=== PATIENT | male | born 1945 | race Caucasian/White ===

== ENCOUNTER → 2017-09-03 | Emergency (ER) | payer OTHER ==
[~2017-09-03] MED LIST: ACETAMINOPHEN 500 MG TAB PO PRN; APIXABAN 2.5 MG TABLET PO SCH; ASPIRIN EC 81 MG TAB PO ONE; ASPIRIN EC 81 MG TAB PO SCH; CLOPIDOGREL 75 MG TABLET PO SCH; DILTIAZEM HCL 120 MG SR CAP PO SCH; ENOXAPARIN 30 MG/0.3 ML SQ SCH; METOPROLOL TAR 50 MG TAB ONE; METOPROLOL TARTRATE 5 MG/5 ML INJ IV ONE; NA CHLORIDE 0.9% 1,000 ML IV SCH; NA CHLORIDE 0.9% 1,000 ML ONE; NA CHLORIDE 0.9% 500 ML ONE; NEBIVOLOL HCL 5 MG TAB PO SCH; ONDANSETRON 4 MG/2 ML VIAL IV PRN; PNEUMOCOCCAL VACCINE 0.5 ML IMVAC ONE; ROSUVASTATIN 10 MG TAB PO SCH; TAMSULOSIN 0.4 MG SR CAP PO SCH
--- OUTSIDE RECORDS SUMMARY | 2017-09-03 00:15 | XMS REPORT | Clinical Summary ---
:1945 Author Organization [facility] Address [address] [place] [address] Care Team Providers Name Role Phone Javi Looney MD Primary Care Provider Allergies Active Allergy Reactions Severity Noted Date Comments Clonidine High 01/28/2017 Makes him extremely depressed Coconut Swelling 01/29/2017 Lip and tongue swelling Pseudoephedrine Other (See Comments) 01/28/2017 Irregular heart beat Current Medications Prescription Sig. Disp. Refills Start Date End Date Status rosuvastatin TK 1 T PO QD 2 04/27/2016 Active (CRESTOR) 10 MG tablet clopidogrel Take 75 mg by Active (PLAVIX) 75 mg mouth daily. tablet BYSTOLIC 10 mg TK 1 T PO QD 0 03/07/2017 Active tablet CARTIA XT 240 mg TK 1 C PO QD 0 03/16/2017 Active 24 hr capsule lisinopril Take 1 tablet (40 30 tablet 11 04/24/2017 Active (PRINIVIL,ZESTRIL) mg total) by 9 40 mg tablet mouth daily. clonIDINE 3 04/12/2016 Discontinued (CATAPRES) 0.1 MG 8 tablet MATZIM LA 360 mg TK 1 T PO D FOR 5 04/25/2016 Discontinued 24 hr tablet BP AND 8 TACHYCARDIA lisinopril 1/2 tablet daily 1 03/14/2016 Discontinued (PRINIVIL,ZESTRIL) 8 20 mg tablet aspirin 325 MG Take 325 mg by Discontinued tablet mouth daily. 8 amoxicillin-pot TK 1 T PO BID 0 05/24/2016 Discontinued clavulanate 8 (AUGMENTIN) 875-125 mg per tablet aspirin (ECOTRIN) Take 81 mg by Discontinued 81 MG enteric mouth 2 (two) 8 coated tablet times a day. 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 06/06/2016 Cerebrovascular accident (CVA) 06/06/2016 SVT (supraventricular tachycardia) 06/06/2016 CLL (chronic lymphocytic leukemia) 06/06/2016 Encounters Date Type Specialty Care Team Description 05/22/2017 Hospital Encounter Neurology Aman Tyson MD Convulsions, unspecified convulsion type 05/08/2017 Orders Only Rob Valente Convulsions, unspecified convulsion type (Primary Dx) 04/25/2017 Orders Only Emergency Medicine Rob Valente Convulsions, unspecified convulsion type (Primary Dx) 04/24/2017 Office Visit Neurology Aman Tyson MD Cerebral infarction, unspecified mechanism (Primary Dx) after 09/02/2016 Family History Medical History Relation Name Comments Cancer Father Hypertension Father Arthritis Mother Relation Name Status Comments Father Mother Social History Tobacco Use Types Packs/Day Years Used Date Current Every Day Smoker Cigarettes 0.5 Smokeless Tobacco: Never Used Alcohol Use Drinks/Week oz/Week Comments Yes rare Sex Assigned at Date Recorded Not on file Last Filed Vital Signs Vital Sign Reading Time Taken Blood Pressure 178/82 04/24/2017 3:16 PM CDT Pulse 68 04/24/2017 3:16 PM CDT Temperature - - Respiratory Rate - - Oxygen Saturation - - Inhaled Oxygen Concentration - - Weight 87.5 kg (192 lb 12.8 oz) 04/24/2017 3:16 PM CDT Height 177.8 cm (5' 10") 04/24/2017 3:16 PM CDT Body Mass Index 27.66 04/24/2017 3:16 PM CDT Plan of Treatment Date Type Specialty Care Team Description 09/29/2017 Clinical Support Neurology Health Maintenance Due Date Last Done Comments COLON CANCER SCREENING 1995 SHINGRIX VACCINE (#1) 1995 ZOSTER VACCINE 2005 PNEUMOCOCCAL POLYSACCHARIDE VACCINE AGE 65 AND OVER 2010 PNEUMOCOCCAL-13 2010 INFLUENZA VACCINE 09/06/2017 Procedures Procedure Name Priority Date/Time Associated Comments Diagnosis EEG AWAKE/DROWSY LESS Routine 05/30/2017 7:03 Convulsions, Results for this THAN 41 MIN AM CDT unspecified procedure are in convulsion type the results section. ESTIMATED GFR Routine 05/15/2017 2:28 Results for this PM CDT procedure are in the results section. SEDIMENTATION RATE Routine 05/15/2017 2:28 Cerebral Results for this PM CDT infarction, procedure are in unspecified the results mechanism section. VITAMIN B12 LEVEL Routine 05/15/2017 2:28 Cerebral Results for this PM CDT infarction, procedure are in unspecified the results mechanism section. COMPREHENSIVE Routine 05/15/2017 2:28 Cerebral Results for this METABOLIC PANEL PM CDT infarction, procedure are in unspecified the results mechanism section. CRP HIGH SENSITIVITY Routine 05/15/2017 2:28 Cerebral Results for this PM CDT infarction, procedure are in unspecified the results mechanism section. FOLATE LEVEL Routine 05/15/2017 2:28 Cerebral Results for this PM CDT infarction, procedure are in unspecified the results mechanism section. HEMOGLOBIN A1C Routine 05/15/2017 2:28 Cerebral Results for this PM CDT infarction, procedure are in unspecified the results mechanism section. LIPID PANEL Routine 05/15/2017 2:28 Cerebral Results for this PM CDT infarction, procedure are in unspecified the results mechanism section. after 09/02/2016 Results Outpatient EEG (05/30/2017 7:03 AM) Narrative Performed At EEG AWAKE/DROWSY LESS THAN 41 MIN Date of Service: 05/22/2017 Awake Recording: The occipital dominant rhythm is 9 Hz. 18-22 Hz activity is present in all regions. 2-3 Hz activity was present in the right frontal temporal region. Sleep Recording:No sleep was recorded. Hyperventilation: Not performed. Photic Stimulation: No abnormality elicited. Impression There is focal slow activity in the right temporal region, a finding suggestive of a region of underlying dysfunction. The background activity is otherwise within the range of normal variation. No epileptiform activity was recorded. ICD-10 Code: R56.9 Estimated GFR (05/15/2017 2:28 PM) GFR Non Af Amer 50 (A) mL/min/1.73 m2 [facility] DEPARTMENT OF PATHOLOGY AND [facility] GFR Af Amer 60 mL/min/1.73 m2 [facility] DEPARTMENT OF Comment: PATHOLOGY AND [facility] Chronic kidney disease: <60 mL/min/1.73m2 MEDICINE Kidney failure: <15 mL/min/1.73m2 The estimated GFR is calculated from the IDMS-traceable Modification of Diet in Renal Disease Equation. The accuracy of the calculation is poor when the creatinine is normal. Calculated values >90 mL/min/1.73m2 are not reported. This equation has not been validated in children (<18 years), women, the elderly (>70 years), or ethnic groups other than Caucasians and Americans. Specimen Plasma specimen Performing Organization Address City/State/Zipcode Phone Number [facility] DEPARTMENT OF PATHOLOGY [address] [place] [address] AND itembase [facility] Sedimentation rate (05/15/2017 2:28 PM) Sedimentation rate 4 0 - 10 mm/hr [facility] DEPARTMENT OF PATHOLOGY AND [facility] Specimen Blood Performing Organization Address City/[facility]/Zipcode Phone Number [facility] DEPARTMENT OF PATHOLOGY [address] [facility] [place] [address] AND [facility] CRP high sensitivity (05/15/2017 2:28 PM) CRP, high sensitivity 0.95 mg/L [facility] DEPARTMENT OF Comment: PATHOLOGY AND GENOMIC Please note this test is different from the C-Reactive Protein MEDICINE (CRP) assay. CRP is a nonspecific marker of inflammation and its levels rise in the presence of conditions such as infection and inflammatory disorders. Persistent low levels of CRP can be measured with a high-sensitivity assay (hsCRP) andare associated with increased risks for atherosclerotic diseases. High-Sensitivity CRP (hsCRP) results are used to assign risk for stroke, acute myocardial infarction and peripheral vascular disease as follows: Low risk: < 1.00 mg/L Average risk: 1.00 - 3.00 mg/L High risk: > 3.00 - 10.00 mg/L Indeterminate: > 10.00 mg/L * *May be indicative of another source of inflammation or infection Specimen Plasma specimen Performing Organization Address City/[facility]/Zipcode Phone Number [facility] DEPARTMENT OF PATHOLOGY AND [address] [place] [id number] [facility] Hemoglobin A1c (05/15/2017 2:28 PM) Hemoglobin A1C 6.8 (H) 4.0 - 6.0 % [facility] DEPARTMENT OF PATHOLOGY Comment: AND GENOMIC MEDICINE Less than 6% - Goal of therapy for Type II Diabetes Less than 7%-Goal of therapy for Type I Diabetes Less than 8%-Acceptable control for Type I or Type II Diabetes Greater than 8%-Unacceptable control; action indicated. (ADA94) Specimen Blood Performing Organization Address City/State/Zipcode Phone Number [facility] DEPARTMENT OF PATHOLOGY [address] [place] [address] AND [facility] Folate level (05/15/2017 2:28 PM) Folate 13.2 4.8 - 24.2 ng/mL [facility] DEPARTMENT OF PATHOLOGY AND GENOMIC MEDICINE Specimen Serum Performing Organization Address City/[facility]/Zipcode Phone Number [facility] DEPARTMENT OF PATHOLOGY AND [address] [place], [place] [phone] [facility] Vitamin B12 level (05/15/2017 2:28 PM) Vitamin B12 552 211 - 946 pg/mL [facility] DEPARTMENT OF PATHOLOGY Comment: AND [facility] Significant overlap exists between normal and deficiency states. However, most patients with deficiencies will have Serum B12 <200 pg/mL. Specimen Serum Performing Organization Address [facility] Phone Number [facility] DEPARTMENT OF PATHOLOGY AND [address] [phone] [facility] Lipid panel (05/15/2017 2:28 PM) Cholesterol 153 0 - 199 mg/dL [facility] DEPARTMENT OF PATHOLOGY AND GENOMIC MEDICINE Triglycerides 334 (H) 0 - 149 mg/dL [facility] DEPARTMENT OF PATHOLOGY AND GENOMIC MEDICINE HDL cholesterol 22 (L) 40 - 99,999 [facility] DEPARTMENT OF mg/dL PATHOLOGY AND GENOMIC MEDICINE LDL cholesterol 85 0 - 99 mg/dL [facility] DEPARTMENT OF PATHOLOGY AND GENOMIC MEDICINE Lipid panel See below [facility] DEPARTMENT OF interpretation Comment: PATHOLOGY AND Total Cholesterol (mg/dL) GENOMIC MEDICINE <200 Desirable [id number] >=240High Triglycerides (mg/dL) <150 Normal [id number]-[id number] 200-499High >=500Very high HDL Cholesterol (mg/dL) <40Low (male) <50Low (female) LDL Cholesterol (mg/dL) <100 Optimal 100-129Near or above optimal [phone] 160-189High >=190Very high Risk Catergories that modify LDL goals. Risk CatergoriesLDL goal (mg/dL) CHD and CHD risk equivalent<100 (10-year risk >20%) Multiple (2+) risk factors <130 (10-year risk=<20%) 0-1 risk factors <160 (<10-year risk) Defining levels of lipids in metabolic syndrome Triglycerides>=150 mg/dL HDL Cholesterol Men<40 mg/dL Women<50 mg/dL Non-HDL cholesterol is a second target for therapy in persons with high triglycerides (>=200 mg/dL) Specimen Plasma specimen Performing Organization Address City/State/Zipcode Phone Number [facility] DEPARTMENT OF PATHOLOGY [address] [place] [address] AND itembase [facility] Comprehensive metabolic panel (05/15/2017 2:28 PM) Sodium 144 135 - 148 mEq/L [facility] DEPARTMENT OF PATHOLOGY AND GENOMIC MEDICINE Potassium 3.8 3.5 - 5.0 mEq/L [facility] DEPARTMENT OF PATHOLOGY AND GENOMIC MEDICINE Chloride 102 98 - 112 mEq/L [facility] DEPARTMENT OF PATHOLOGY AND GENOMIC MEDICINE CO2 28 24 - 31 mEq/L [facility] DEPARTMENT OF PATHOLOGY AND GENOMIC MEDICINE Anion gap 14 7 - 15 mEq/L [facility] DEPARTMENT OF Comment: PATHOLOGY AND GENOMIC Starting from May , anion gap calculation MEDICINE no longer incorporates potassium. Please note the change. BUN 26 (H) 8 - 23 mg/dL [facility] DEPARTMENT OF PATHOLOGY AND GENOMIC MEDICINE Creatinine 1.4 (H) 0.7 - 1.2 mg/dL [facility] DEPARTMENT OF PATHOLOGY AND GENOMIC MEDICINE Glucose 79 65 - 99 mg/dL [facility] DEPARTMENT OF PATHOLOGY AND GENOMIC MEDICINE Calcium 9.7 8.8 - 10.2 mg/dL [facility] DEPARTMENT OF PATHOLOGY AND GENOMIC MEDICINE Protein 7.0 6.3 - 8.3 g/dL [facility] DEPARTMENT OF PATHOLOGY AND GENOMIC MEDICINE Albumin 4.5 3.5 - 5.0 g/dL [facility] DEPARTMENT OF PATHOLOGY AND GENOMIC MEDICINE A/G ratio 1.8 0.7 - 3.8 [facility] DEPARTMENT OF PATHOLOGY AND GENOMIC MEDICINE Alkaline phosphatase 94 40 - 129 U/L [facility] DEPARTMENT OF PATHOLOGY AND GENOMIC MEDICINE AST 17 10 - 50 U/L [facility] DEPARTMENT OF PATHOLOGY AND GENOMIC MEDICINE ALT 12 5 - 50 U/L [facility] DEPARTMENT OF PATHOLOGY AND GENOMIC MEDICINE Total bilirubin 0.3 0.2 - 1.2 mg/dL [facility] DEPARTMENT OF PATHOLOGY AND GENOMIC MEDICINE Specimen Plasma specimen Performing Organization Address City/State/Zipcode Phone Number [facility] DEPARTMENT OF PATHOLOGY [address] [place] [address] AND itembase MEDICINE after 09/02/2016 Insurance Payer Benefit Plan / Group Subscriber ID Type Phone Address [employer] A[employer] PPO OPEN CHOICE xxxxxxxxx PPO MEDICARE MEDICARE PART A AND B xxxxxxxxxx Medicare [place], [place] III y [phone] [id number]
--- OUTSIDE RECORDS SUMMARY | 2017-09-03 00:16 | XMS REPORT | Clinical Summary ---
:1945 Author Organization [facility] Address [address] [place] [address] Phone Care Team Providers Name Role Phone Unavailable Primary Care Provider Unavailable Allergies Active Allergy Reactions Severity Noted Date Comments Clonidine High 01/28/2017 Makes him extremely depressed Coconut Swelling 01/29/2017 Lip and tongue swelling Pseudoephedrine Other (See Comments) 01/28/2017 Irregular heart beat Current Medications Prescription Sig. Disp. Refills Start Date End Date Status nebivolol (BYSTOLIC) Take 10 mg by Active 10 MG tablet mouth daily. dilTIAZem (CARDIZEM Take 240 mg by Active CD) 240 MG 24 hr mouth daily. capsule rosuvastatin Take 10 mg by Active (CRESTOR) 10 MG mouth daily At tablet bedtime . clopidogrel (PLAVIX) Take 75 mg by Active 75 mg tablet mouth daily. aspirin 81 MG EC Take 81 mg by Active tablet mouth daily. VALSARTAN ORAL Take by mouth Active daily. tamsulosin (FLOMAX) Take 0.4 mg by Discontinued 0.4 mg Cp24 24 hr mouth daily At 8 capsule bedtime . lisinopril Take 40 mg by Discontinued (PRINIVIL,ZESTRIL) mouth 2 (two) 8 40 MG tablet times daily with breakfast and dinner. phenazopyridine Take 1 tablet 30 tablet 0 08/25/2017 (PYRIDIUM) 200 MG (200 mg total) 8 tablet by mouth 3 (three) times daily as needed for Pain for up to 3 days. nitrofurantoin, Take 1 capsule 10 capsule 0 08/25/2017 Discontinued macrocrystal-monohyd (100 mg total) 8 rate, (MACROBID) 100 by mouth 2 MG capsule (two) times daily for 5 days. ciprofloxacin HCl Take 1 tablet 14 tablet 0 08/25/2017 (CIPRO) 500 MG (500 mg total) 8 tablet by mouth 2 (two) times daily for 7 days. Active Problems Problem Noted Date Bladder cancer (HCC) 08/25/2017 CVA (cerebral vascular accident) ([facility]) 01/28/2017 Paroxysmal atrial fibrillation (HCC) 01/28/2017 CLL (chronic lymphocytic leukemia) ([facility]) 01/28/2017 Essential hypertension 01/28/2017 History of lacunar cerebrovascular accident (CVA) 01/28/2017 Encounters Date Type Specialty Care Team Description 08/25/2017 Hospital Encounter Brown Garcia Malignant Priscilla MD urinary bladder, unspecified site (HCC);Pre-op testing;Bacteremia 08/25/2017 Procedure Pass 08/25/2017 Surgery Brown Gracia CYSTOSCOPY,BLUE LIGHT MD Louis [facility]YSVIEW 08/24/2017 Anesthesia Event Chinedu Figueredo MD 08/23/2017 Hospital Encounter Cardiology Brown Garcia MD 08/23/2017 Hospital Encounter Brown Garcia MD 08/23/2017 Hospital Encounter Pre-Admission Brown Garcia Testing MD Louis 08/23/2017 Hospital Encounter Pre-Admission Brown Gracia Malignant neoplasm of Testing MD Louis urinary bladder, unspecified site (HCC);Pre-op testing;Bacteremia ;Abnormal coagulation profile 08/23/2017 Orders Only General Internal Medicine 08/23/2017 Outside Orders Lab Amee Lugo 08/21/2017 Orders Only Urology Brown Garcia MD 08/07/2017 Orders Only Urology Brown Garcia Malignant Priscilla MD urinary bladder, unspecified site ([facility]) (Primary Dx);Pre-op testing;Bacteremia ;Abnormal coagulation profile 01/28/2017 - [facility] (chronic 01/29/2017 Medicine Linda Montague lymphocytic leukemia) MD Chris ([facility]);Cerebrovascular Onel Pringle, accident (CVA), unspecified mechanism Dipak Bauer ([facility]);Radha Roland MD hypertension;History of lacunar cerebrovascular accident (CVA);Paroxysmal atrial fibrillation (HCC) after 09/02/2016 Social History Tobacco Use Types Packs/Day Years Used Date Unknown If Ever Smoked Smokeless Tobacco: Never Used Comments: quit dec 2017 Alcohol Use Drinks/Week oz/Week Comments Yes occasional Sex Assigned at Date Recorded Not on file Last Filed Vital Signs Vital Sign Reading Time Taken Blood Pressure 162/83 08/25/2017 1:10 PM CDT Pulse 54 08/25/2017 1:10 PM CDT Temperature 36.8 C (98.2 F) 08/25/2017 1:10 PM CDT Respiratory Rate 16 08/25/2017 1:10 PM CDT Oxygen Saturation 93% 08/25/2017 1:10 PM CDT Inhaled Oxygen Concentration - - Weight 88.2 kg (194 lb 6.4 oz) 08/25/2017 8:52 AM CDT Height 177.8 cm (5' 10") 08/25/2017 8:52 AM CDT Body Mass Index 27.89 08/25/2017 8:52 AM CDT Plan of Treatment Not on file Procedures Procedure Name Priority Date/Time Associated Diagnosis Comments CYSTOSCOPY,TURBT 08/25/2017 10:00 AM CDT Malignant neoplasm of urinary bladder, unspecified site (HCC) Special Needs ([facility]) CYSTOSCOPY,BLUE LIGHT [facility] 08/25/2017 10:00 AM CDT Malignant neoplasm of urinary bladder, unspecified site (HCC) Special Needs ([facility]VIEW) after 09/02/2016 Results Tissue Exam (08/25/2017 10:30 AM) Component Value Ref Range Case Report Surgical Pathology Report Case: [id number] Authorizing Provider:Brown Garcia MDCollected: 08/25/2017 1030 Ordering Location: [facility] Received: 08/25/2017 1434 SERVICES Pathologist: Nicolas Diaz MD Specimens: A) - Bladder Tumor, enbloc resection of right lateral wall tumor B) - Bladder Tumor, TUR papillary tumor inside left bladder neck C) - Bladder Tumor, right lateral wall bladder tumor D) - Bladder Tumor, papillary tumor dome DIAGNOSIS A. URINARY BLADDER, RIGHT LATERAL WALL, TURBT: - PAPILLARY UROTHELIAL CARCINOMA, LOW-GRADE (WHO GRADE 1), NONINVASIVE - MUSCULARIS PROPRIA IS NOT PRESENT B. URINARY BLADDER, LEFT NECK, TURBT: - PAPILLARY UROTHELIAL CARCINOMA, LOW-GRADE (WHO GRADE 2), SUPERFICIALLY INVASIVE INTO LAMINA PROPRIA - MUSCULARIS PROPRIA IS NOT INVOLVED BY CARCINOMA - NEGATIVE FOR LYMPH-VASCULAR INVASION C. URINARY BLADDER, RIGHT LATERAL WALL, TURBT: - PAPILLARY UROTHELIAL CARCINOMA, LOW-GRADE (WHO GRADE 2), NONINVASIVE - MUSCULARIS PROPRIA IS NOT INVOLVED BY CARCINOMA D. URINARY BLADDER, DOME, TURBT: - PAPILLARY UROTHELIAL CARCINOMA, LOW-GRADE (WHO GRADE 2), NONINVASIVE - MUSCULARIS PROPRIA IS NOT PRESENT Signing Pathologist Direct Phone Line: [phone] COMMENT The focus of invasion on specimen B. Is into the lamina propria of one papillary stalk and consists of on 3-4 tiny cell clusters. CPT Code(s) A. 89552 B. 83475 C. 60992 D. 42837 CLINICAL HISTORY Malignant neoplasm of urinary bladder SPECIMEN SOURCE A. Bladder tumor en bloc resection of right lateral wall tumor; B. TUR papillary tumor inside left bladder neck; C. Right lateral wall bladder tumor; D. Papillary tumor dome GROSS DESCRIPTION The specimen is received in four containers of formalin all labeled with the patient's information. Part A labeled "en bloc resection of right lateral wall tumor" consists of two fragments of lyles-pink soft tissue measuring 0.4 and 0.5 cm, submitted A1. Part B labeled "TUR papillary tumor inside left bladder neck" consists of three fragments of lyles-pink soft tissue ranging from 0.4 to 0.6 cm, submitted B1. Part C labeled "right lateral wall bladder tumor" consists of multiple fragments of lyles-pink soft tissue ranging from 0.1 to 1 cm, submitted C1. Part D labeled "papillary tumor dome of bladder" consists of multiple fragments of lyles-pink soft tissue, ranging from 0.1 to 0.4 cm. Submitted D1. CG/ pl MICROSCOPIC DESCRIPTION Performed Specimen Performing Laboratory Tissue - Bladder Tumor [address] [address] TRANSFUSION SERVICE REPORT - SCAN (08/24/2017 5:54 PM)XR chest 2 views (2017 3:46 PM) Specimen Performing Laboratory GE RIS Narrative FINAL REPORT Chest, two views HISTORY: Bladder cancer COMPARISON: None. DISCUSSION: Enlargement of the cardiomediastinal silhouette with tortuosity and ectasia of the thoracic aorta. Lungs are grossly clear without focal consolidation. No large pleural effusion or pneumothorax. Mild degenerative changes in the thoracic spine. Healed left-sided rib fractures. IMPRESSION: Enlargement of the cardiomediastinal silhouette. Otherwise, no acute cardiopulmonary abnormality. Signed: Brett Valente MD Report Verified Date/Time:08/23/2017 16:22:14 Reading Location: [address] Reading Room Procedure Note Interface, External Ris In - 08/23/2017 4:24 PM CDT FINAL REPORT Chest, two views HISTORY: Bladder cancer COMPARISON: None. DISCUSSION: Enlargement of the cardiomediastinal silhouette with tortuosity and ectasia of the thoracic aorta. Lungs are grossly clear without focal consolidation. No large pleural effusion or pneumothorax. Mild degenerative changes in the thoracic spine. Healed left-sided rib fractures. IMPRESSION: Enlargement of the cardiomediastinal silhouette. Otherwise, no acute cardiopulmonary abnormality. Signed: Brett Valente MD Report Verified Date/Time: 08/23/2017 16:22:14 Reading Location: [address] Reading Room Electrocardiogram, 12-lead (08/23/2017 3:05 PM) Specimen Performing Laboratory GE MUSE Narrative Ventricular Rate 57 BPM Atrial Rate 57 BPM P-R Interval 212 ms QRS Duration 98 ms Q-T Interval 532 ms QTC Calculation(Bazett) 517 ms P [place] 24 degrees R [place] -19 degrees T [place] 74 degrees Sinus bradycardia with 1st degree A-V block Prolonged QT Abnormal ECG No previous ECGs available Confirmed by Radha Liu Alireaz ([id number]) on 08/23/2017 10:07:57 PM Procedure Note Interface, External Ris In - 08/23/2017 10:08 PM CDT Ventricular Rate 57 BPM Atrial Rate 57 BPM P-R Interval 212 ms QRS Duration 98 ms Q-T Interval 532 ms QTC Calculation(Bazett) 517 ms P [place] 24 degrees R [place] -19 degrees T [place] 74 degrees Sinus bradycardia with 1st degree A-V block Prolonged QT Abnormal ECG No previous ECGs available Confirmed by Radha Liu Alireaz ([id number]) on 08/23/2017 10:07:57 PM Manual Differential (08/23/2017 3:02 PM) Component Value Ref Range % Neutros 23 % % Lymphs 66 % % Monos 2 % % Eos 1 % % Baso 1 % % Atypical Lymphs 6 (H) 0 - 0 % # Neutros 16.58 (H) 1.78 - 5.38 K/ul # Lymphs 47.59 (H) 1.32 - 3.57 K/ul # Monos 1.44 (H) 0.30 - 0.82 K/uL # Eos 0.72 (H) 0.04 - 0.54 K/uL # Baso 0.72 (H) 0.01 - 0.08 K/uL # Atypical Lymphs 4.33 (H) 0.00 - 0.00 K/uL Total Counted 100 Platelet Morphology Normal Smudge Cells Present Polychromasia 1+ few Hypochromia 1+ few Anisocytosis 2+ moderate Microcytes 2+ moderate Poikilocytes 1+ few Artifact Present Platelet Conc Adequate Specimen Performing Laboratory Blood [address] [address] Narrative Received comment: User comments: Slide comments: Type and screen, automated (08/23/2017 3:02 PM) Component Value Ref Range ABO/RH AUTOMATED (BEAKER) A POSITIVE Ab Scrn NEGATIVE Specimen Performing Laboratory Blood [address] [address] CBC with platelet count + automated diff (08/23/2017 3:02 PM)Only the most recent of2 resultswithin the time period is included. Component Value Ref Range WBC 72.1 (HH) 3.5 - 10.5 K/L RBC 4.97 4.63 - 6.08 M/L Hemoglobin 13.1 (L) 13.7 - 17.5 GM/DL Hematocrit 42.1 40.1 - 51.0 % MCV 84.7 79.0 - 92.2 fL MCH 26.4 25.7 - 32.2 pg MCHC 31.1 (L) 32.3 - 36.5 GM/DL RDW 14.5 (H) 11.6 - 14.4 % Platelets 247 150 - 450 K/CU MM MPV 10.6 9.4 - 12.4 fL nRBC 0 0 - 0 /100 WBC Specimen Performing Laboratory Blood [address] [address] Urinalysis w/ Microscopic (08/23/2017 3:02 PM) Component Value Ref Range Color, UA Light Yellow Clarity, UA Clear Specific [place], UA 1.012 1.001 - 1.035 pH, UA 7.0 5.0 - 8.0 Protein, UA 50 mg/dL (A) Negative Glucose, UA Negative Negative Ketones, UA Negative Negative Bilirubin, UA Negative Negative Blood, UA Negative Negative Nitrite, UA Negative Negative Leukocytes, UA Negative Negative Urobilinogen, UA 0.2 0.2 - 1.0 mg/dL RBC, UA 1 /HPF WBC, UA <1 /HPF Mucus Rare Specimen Source Specimen Performing Laboratory Urine [address] [address] aPTT (08/23/2017 3:02 PM) Component Value Ref Range PTT 31.6 22.5 - 36.0 seconds Specimen Performing Laboratory Blood [address] [address] Prothrombin time/INR (08/23/2017 3:02 PM) Component Value Ref Range Protime 14.8 (H) 11.7 - 14.7 seconds INR 1.2 <=5.9 Specimen Performing Laboratory Blood [address] [address] Narrative RECOMMENDED COUMADIN/WARFARIN INR THERAPY RANGES STANDARD DOSE: 2.0 - 3.0 Includes: PROPHYLAXIS for venous thrombosis, systemic embolization; TREATMENT for venous thrombosis and/or pulmonary embolus. HIGH RISK: Target INR is 2.5-3.5 for patients with mechanical heart valves. CBC with platelet count + automated diff (08/23/2017 3:02 PM)Only the most recent of2 resultswithin the time period is included. Specimen Performing Laboratory Blood Narrative The following orders were created for panel order CBC with platelet count + automated diff. Procedure Abnormality Status --------- ------ CBC with platelet count ...[[id number]]AbnormalFinal result Please view results for these tests on the individual orders. Urine culture (08/23/2017 3:02 PM) Component Value Ref Range Result 50-59,000 col/mL skin eunice Specimen Performing Laboratory Urine - Urine, Clean Catch [address] [address] Basic Metabolic Panel (08/23/2017 3:02 PM)Only the most recent of2 resultswithin the time period is included. Component Value Ref Range Sodium 140 136 - 145 meq/L Potassium 3.9 3.5 - 5.1 meq/L Chloride 104 98 - 107 meq/L CO2 25 22 - 29 meq/L BUN 29 (H) 7 - 21 mg/dL Creatinine 1.59 (H) 0.57 - 1.25 mg/dL Glucose 80 70 - 105 mg/dL Calcium 9.8 8.4 - 10.2 mg/dL EGFR 43Comment: ESTIMATED GFR IS NOT ACCURATE mL/min/1.73 sq m CREATININE CLEARANCE IN PREDICTING GLOMERULAR FILTRATION RATE. ESTIMATED GFR IS NOT APPLICABLE FOR DIALYSIS PATIENTS. Specimen Performing Laboratory [address] [address] RHYTHM STRIP - SCAN (02/02/2017 8:10 AM)Manual Differential (01/29/2017 6:21 AM) Component Value Ref Range Total Counted Platelet Morphology Normal RBC Morphology Normal Atypical Lymphs Present Smudge Cells Present Specimen Performing Laboratory [address] [address] TSH/Free T4 If Indicated (01/29/2017 6:21 AM) Component Value Ref Range TSH 1.37 0.35 - 4.94 uIU/mL Specimen Performing Laboratory [address] [address] Troponin I (01/29/2017 6:21 AM) Component Value Ref Range Troponin I 0.02 0.00 - 0.03 ng/mL Specimen Performing Laboratory [address] [address] Narrative Troponin I (TnI) levels must be interpreted in the context of the presenting symptoms and the clinical findings. Elevated TnI levels indicate myocardial damage, but are not specific for ischemic heart disease. Elevated TnI levels are seen in patients with other cardiac conditions (including myocarditis and congestive heart failure), and slight TnI elevations occur in patients with other conditions, including sepsis, renal failure, acidosis, acute neurological disease, and persistent tachyarrhythmia. RPR (01/29/2017 6:21 AM) Component Value Ref Range RPR Nonreactive Nonreactive Specimen Performing Laboratory Blood [facility] [address] [address] Hemoglobin A1c (01/29/2017 6:21 AM) Component Value Ref Range Hemoglobin A1C 6.9 (H) 4.3 - 6.1 % Specimen Performing Laboratory Blood [address] [address] Vitamin B12 (01/29/2017 6:21 AM) Component Value Ref Range Vitamin B12 346 213 - 816 pg/mL Specimen Performing Laboratory Blood [address] [address] Creatine Kinase (CK), Total and MB (01/29/2017 6:21 AM) Component Value Ref Range Total CK 72 29 - 200 U/L CK-MB 0.5 0.0 - 6.6 ng/mL MB Relative Index 0.7 % Specimen Performing Laboratory Blood [address] [address] Narrative CK-MB Reference Range: <6.7Normal 6.7-10.0Borderline >10.0 Abnormal Lipid panel (01/29/2017 6:21 AM) Component Value Ref Range Triglycerides 175 mg/dL Cholesterol 104 mg/dL HDL 21 mg/dL LDL Calculated 48 mg/dL Specimen Performing Laboratory Blood [address] [address] Narrative Triglyceride Reference Range: Low Risk <150 [id number] High Risk 200-499 Very High Risk>=500 Cholesterol Reference Range: Low Risk <200 [id number] High Risk>240 HDL Cholesterol Reference Range: Low Risk >=60 High Risk <40 LDL Cholesterol Reference Range: Optimal<100 Near [id number] Obkdtcldbz698-202 Chqx233-378 Very High >=190 MR brain without IV contrast (01/29/2017 4:01 AM) Specimen Performing Laboratory [employer] Narrative FINAL REPORT MR, BRAIN, WITHOUT CONTRAST, MR, MRA, NECK, WITHOUT IV CONTRAST, MR, MRA, BRAIN, WITHOUT CONTRAST INDICATION: Stroke Ischemic Stroke Evaluation TECHNIQUE: Multiplanar, multisequence MR images of the brain.3-D time of flight MRA of the cranial and cervical circulation. 2-D time of flight MRA of the neck. 3D MIP angiographic post-processing was performed. Stenosis evaluation utilized NASCET criteria. COMPARISON: Noncontrast brain CT of the same date FINDINGS: MRI BRAIN: Moderate to severe global volume loss with severe patchy periventricular and subcortical areas of T2 and FLAIR signal abnormality consistent with chronic microvascular ischemic disease. Midline structures and posterior fossa within normal limits. Small acute infarct in the right green radiata of the frontal lobe. Another small acute infarct in the left temporoparietal lobe white matter. No hemorrhagic transformation. Arachnoid cyst in the right middle cranial fossa. No acute hydrocephalus. Preserved flow voids in the major intracranial vascular structures. Loops are symmetric. Mild paranasal sinus mucosal disease. MRA NECK: On the right, there is no significant atherosclerotic plaque at the CCA bifurcation. No flow-limiting stenosis or dissection. On the left, there is no significant atherosclerotic plaque at the CCA bifurcation. No flow-limiting stenosis or dissection. Co-dominant vertebral artery system. No flow-limiting stenosis of vertebral arteries. MRA HEAD: Mild atherosclerotic disease in the carotid siphons, right greater than left. No flow-limiting stenosis, dissection, or aneurysm of the anterior circulation. Mild to moderate atherosclerotic disease in the proximal basilar artery. No flow-limiting stenosis, dissection, or aneurysm of the posterior circulation. IMPRESSION: Small infarcts in the right frontal lobe and left parietal lobe white matter. Consider cardiac echo to rule out a central source. No flow-limiting stenosis in the intra or extracranial cerebral arterial vasculature. Signed: Zelalem Chapa MD Report Verified Date/Time:01/29/2017 04:30:36 Reading Location: [address] Consult Reading Room Procedure Note Interface, External Ris In - 01/29/2017 4:32 AM BROKE HANDLER FINAL REPORT MR, BRAIN, WITHOUT CONTRAST, MR, MRA, NECK, WITHOUT IV CONTRAST, MR, MRA, BRAIN, WITHOUT CONTRAST INDICATION: Stroke Ischemic Stroke Evaluation TECHNIQUE: Multiplanar, multisequence MR images of the brain. 3-D time of flight MRA of the cranial and cervical circulation. 2-D time of flight MRA of the neck. 3D MIP angiographic post-processing was performed. Stenosis evaluation utilized NASCET criteria. COMPARISON: Noncontrast brain CT of the same date FINDINGS: MRI BRAIN: Moderate to severe global volume loss with severe patchy periventricular and subcortical areas of T2 and FLAIR signal abnormality consistent with chronic microvascular ischemic disease. Midline structures and posterior fossa within normal limits. Small acute infarct in the right green radiata of the frontal lobe. Another small acute infarct in the left temporoparietal lobe white matter. No hemorrhagic transformation. Arachnoid cyst in the right middle cranial fossa. No acute hydrocephalus. Preserved flow voids in the major intracranial vascular structures. Loops are symmetric. Mild paranasal sinus mucosal disease. MRA NECK: On the right, there is no significant atherosclerotic plaque at the CCA bifurcation. No flow-limiting stenosis or dissection. On the left, there is no significant atherosclerotic plaque at the CCA bifurcation. No flow-limiting stenosis or dissection. Co-dominant vertebral artery system. No flow-limiting stenosis of vertebral arteries. MRA HEAD: Mild atherosclerotic disease in the carotid siphons, right greater than left. No flow-limiting stenosis, dissection, or aneurysm of the anterior circulation. Mild to moderate atherosclerotic disease in the proximal basilar artery. No flow-limiting stenosis, dissection, or aneurysm of the posterior circulation. IMPRESSION: Small infarcts in the right frontal lobe and left parietal lobe white matter. Consider cardiac echo to rule out a central source. No flow-limiting stenosis in the intra or extracranial cerebral arterial vasculature. Signed: Zelalem Chapa MD Report Verified Date/Time: 01/29/2017 04:30:36 Reading Location: [address] Ortho Consult Reading Room neck without IV contrast (01/29/2017 4:01 AM) Specimen Performing Laboratory [employer] Narrative FINAL REPORT MR, BRAIN, WITHOUT CONTRAST, MR, MRA, NECK, WITHOUT IV CONTRAST, MR, MRA, BRAIN, WITHOUT CONTRAST INDICATION: Stroke Ischemic Stroke Evaluation TECHNIQUE: Multiplanar, multisequence MR images of the brain.3-D time of flight MRA of the cranial and cervical circulation. 2-D time of flight MRA of the neck. 3D MIP angiographic post-processing was performed. Stenosis evaluation utilized NASCET criteria. COMPARISON: Noncontrast brain CT of the same date FINDINGS: MRI BRAIN: Moderate to severe global volume loss with severe patchy periventricular and subcortical areas of T2 and FLAIR signal abnormality consistent with chronic microvascular ischemic disease. Midline structures and posterior fossa within normal limits. Small acute infarct in the right green radiata of the frontal lobe. Another small acute infarct in the left temporoparietal lobe white matter. No hemorrhagic transformation. Arachnoid cyst in the right middle cranial fossa. No acute hydrocephalus. Preserved flow voids in the major intracranial vascular structures. Loops are symmetric. Mild paranasal sinus mucosal disease. MRA NECK: On the right, there is no significant atherosclerotic plaque at the CCA bifurcation. No flow-limiting stenosis or dissection. On the left, there is no significant atherosclerotic plaque at the CCA bifurcation. No flow-limiting stenosis or dissection. Co-dominant vertebral artery system. No flow-limiting stenosis of vertebral arteries. MRA HEAD: Mild atherosclerotic disease in the carotid siphons, right greater than left. No flow-limiting stenosis, dissection, or aneurysm of the anterior circulation. Mild to moderate atherosclerotic disease in the proximal basilar artery. No flow-limiting stenosis, dissection, or aneurysm of the posterior circulation. IMPRESSION: Small infarcts in the right frontal lobe and left parietal lobe white matter. Consider cardiac echo to rule out a central source. No flow-limiting stenosis in the intra or extracranial cerebral arterial vasculature. Signed: Zelalem Chapa MD Report Verified Date/Time:01/29/2017 04:30:36 Reading Location: [address] Consult Reading Room Procedure Note Interface, External Ris In - 01/29/2017 4:32 AM BROKE HANDLER FINAL REPORT MR, BRAIN, WITHOUT CONTRAST, MR, MRA, NECK, WITHOUT IV CONTRAST, MR, MRA, BRAIN, WITHOUT CONTRAST INDICATION: Stroke Ischemic Stroke Evaluation TECHNIQUE: Multiplanar, multisequence MR images of the brain. 3-D time of flight MRA of the cranial and cervical circulation. 2-D time of flight MRA of the neck. 3D MIP angiographic post-processing was performed. Stenosis evaluation utilized NASCET criteria. COMPARISON: Noncontrast brain CT of the same date FINDINGS: MRI BRAIN: Moderate to severe global volume loss with severe patchy periventricular and subcortical areas of T2 and FLAIR signal abnormality consistent with chronic microvascular ischemic disease. Midline structures and posterior fossa within normal limits. Small acute infarct in the right green radiata of the frontal lobe. Another small acute infarct in the left temporoparietal lobe white matter. No hemorrhagic transformation. Arachnoid cyst in the right middle cranial fossa. No acute hydrocephalus. Preserved flow voids in the major intracranial vascular structures. Loops are symmetric. Mild paranasal sinus mucosal disease. MRA NECK: On the right, there is no significant atherosclerotic plaque at the CCA bifurcation. No flow-limiting stenosis or dissection. On the left, there is no significant atherosclerotic plaque at the CCA bifurcation. No flow-limiting stenosis or dissection. Co-dominant vertebral artery system. No flow-limiting stenosis of vertebral arteries. MRA HEAD: Mild atherosclerotic disease in the carotid siphons, right greater than left. No flow-limiting stenosis, dissection, or aneurysm of the anterior circulation. Mild to moderate atherosclerotic disease in the proximal basilar artery. No flow-limiting stenosis, dissection, or aneurysm of the posterior circulation. IMPRESSION: Small infarcts in the right frontal lobe and left parietal lobe white matter. Consider cardiac echo to rule out a central source. No flow-limiting stenosis in the intra or extracranial cerebral arterial vasculature. Signed: Zelalem Chapa MD Report Verified Date/Time: 01/29/2017 04:30:36 Reading Location: [address] Consult Reading Room head without IV contrast (01/29/2017 4:01 AM) Specimen [facility] Narrative FINAL REPORT MR, BRAIN, WITHOUT CONTRAST, MR, MRA, NECK, WITHOUT IV CONTRAST, MR, MRA, BRAIN, WITHOUT CONTRAST INDICATION: Stroke Ischemic Stroke Evaluation TECHNIQUE: Multiplanar, multisequence MR images of the brain.3-D time of flight MRA of the cranial and cervical circulation. 2-D time of flight MRA of the neck. 3D MIP angiographic post-processing was performed. Stenosis evaluation utilized NASCET criteria. COMPARISON: Noncontrast brain CT of the same date FINDINGS: MRI BRAIN: Moderate to severe global volume loss with severe patchy periventricular and subcortical areas of T2 and FLAIR signal abnormality consistent with chronic microvascular ischemic disease. Midline structures and posterior fossa within normal limits. Small acute infarct in the right green radiata of the frontal lobe. Another small acute infarct in the left temporoparietal lobe white matter. No hemorrhagic transformation. Arachnoid cyst in the right middle cranial fossa. No acute hydrocephalus. Preserved flow voids in the major intracranial vascular structures. Loops are symmetric. Mild paranasal sinus mucosal disease. MRA NECK: On the right, there is no significant atherosclerotic plaque at the CCA bifurcation. No flow-limiting stenosis or dissection. On the left, there is no significant atherosclerotic plaque at the CCA bifurcation. No flow-limiting stenosis or dissection. Co-dominant vertebral artery system. No flow-limiting stenosis of vertebral arteries. MRA HEAD: Mild atherosclerotic disease in the carotid siphons, right greater than left. No flow-limiting stenosis, dissection, or aneurysm of the anterior circulation. Mild to moderate atherosclerotic disease in the proximal basilar artery. No flow-limiting stenosis, dissection, or aneurysm of the posterior circulation. IMPRESSION: Small infarcts in the right frontal lobe and left parietal lobe white matter. Consider cardiac echo to rule out a central source. No flow-limiting stenosis in the intra or extracranial cerebral arterial vasculature. Signed: Zelalem Chapa MD Report Verified Date/Time:01/29/2017 04:30:36 Reading Location: [facility] [id number] Ortho Consult Reading Room Procedure Note Interface, External Ris In - 01/29/2017 4:32 AM [facility] FINAL REPORT MR, BRAIN, WITHOUT CONTRAST, MR, MRA, NECK, WITHOUT IV CONTRAST, MR, MRA, BRAIN, WITHOUT CONTRAST INDICATION: Stroke Ischemic Stroke Evaluation TECHNIQUE: Multiplanar, multisequence MR images of the brain. 3-D time of flight MRA of the cranial and cervical circulation. 2-D time of flight MRA of the neck. 3D MIP angiographic post-processing was performed. Stenosis evaluation utilized NASCET criteria. COMPARISON: Noncontrast brain CT of the same date FINDINGS: MRI BRAIN: Moderate to severe global volume loss with severe patchy periventricular and subcortical areas of T2 and FLAIR signal abnormality consistent with chronic microvascular ischemic disease. Midline structures and posterior fossa within normal limits. Small acute infarct in the right green radiata of the frontal lobe. Another small acute infarct in the left temporoparietal lobe white matter. No hemorrhagic transformation. Arachnoid cyst in the right middle cranial fossa. No acute hydrocephalus. Preserved flow voids in the major intracranial vascular structures. Loops are symmetric. Mild paranasal sinus mucosal disease. MRA NECK: On the right, there is no significant atherosclerotic plaque at the CCA bifurcation. No flow-limiting stenosis or dissection. On the left, there is no significant atherosclerotic plaque at the CCA bifurcation. No flow-limiting stenosis or dissection. Co-dominant vertebral artery system. No flow-limiting stenosis of vertebral arteries. MRA HEAD: Mild atherosclerotic disease in the carotid siphons, right greater than left. No flow-limiting stenosis, dissection, or aneurysm of the anterior circulation. Mild to moderate atherosclerotic disease in the proximal basilar artery. No flow-limiting stenosis, dissection, or aneurysm of the posterior circulation. IMPRESSION: Small infarcts in the right frontal lobe and left parietal lobe white matter. Consider cardiac echo to rule out a central source. No flow-limiting stenosis in the intra or extracranial cerebral arterial vasculature. Signed: Zelalem Chapa MD Report Verified Date/Time: 01/29/2017 04:30:36 Reading Location: [facility] B1 [id number] [facility] Consult Reading Room after 09/02/2016
--- OUTSIDE RECORDS SUMMARY | 2017-09-03 00:18 | XMS REPORT | Continuity of Care Document ---
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, 7 [place] LUMBAR REGION" Stroke Resolved Problem 06/22/2017 [facility] [place] [facility], PRECIOUS [place], PRECIOUS [place],[facility], [facility], [place] Hematoma Resolved Problem 06/22/2017 [facility], PRECIOUS [place], PRECIOUS [place],[facility], PRECI[facility] [place] 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 sennosides, SNF TAB, Dosing 8.6 MG Oral Weight 86.364, Tablet kg, BID, Start date: 05/29/17 17:00:00 CDT, Duration: 30 day, Stop date: 06/28/17 9:00:00 CDTNotes: (Same as Senokot-S) Equiv. to Rachelle-Colace. Docusate Sodium 1 tab, PO, BID, Active 05/29/ [place] 50 MG / X 14 day, # [address] [facility] sennosides, SNF tab, 0 8.6 MG Oral Refill(s), Tablet Pharmacy: [facility] [id number] ciprofloxacin 500 500 mg=1 tab, Active [place] mg oral tablet PO, Q12H, X 7 2017, # 14 tab, 0 Refill(s), Pharmacy: [facility] [id number] Cipro 500 mg, 2 tab, Inactive [place] Route: PO, Drug 2017 [place] form: TAB, [id number], Dosing Weight 86.364, kg, Start date: 05/29/17 9:00:00 CDT, Duration: 5 day, Stop date: 06/02/17 21:00:00 CDT, ABX Indication: Other (specify in Comments)Notes: May interfere w/enteral feedings - Take 1 hr before or 2 hrs after antacids, dairy pdt & minerals. On empty stomach. Normal Saline for 3,000 mL, Route: Inactive [place] Irrigation INTRAVESICULAR, 2017 Drug Form: SOLN, Dosing Weight 89.545, kg, Continuous, Start date: 05/28/17 21:30:00 CDT, Duration: 30 day, Stop date: 06/27/17 21:29:00 CDTNotes: For irrigation only. Sodium Chloride 3,000 mL, 6000 No Longer [place] ml/hr, Route: Active 2017 IRRIG, Drug Form: SOLN, Dosing Weight 86.364, kg, Continuous, PRN See Nurse's Notes, Start date: 05/28/17 21:22:00 CDT, Duration: 30 day, Stop date: 06/27/17 21:21:00 CDTNotes: For irrigation only. Diltiazem 240 mg, 2 cap, No Longer [place] Hydrochloride ER Route: PO, Drug Active 2017 [place] form: ERCAP, Daily, Dosing Weight 86.364, kg, Start date: 05/28/17 16:00:00 CDT, Duration: 30 day, Stop date: 06/27/17 9:00:00 CDTNotes: (Same as: Cardizem CD) Do Not Crush Before meals. 24 HR Diltiazem 240 mg=1 cap, Active [place] Hydrochloride 240 PO, Daily, 0 2017 MG Extended Refill(s) Release Capsule [Cartia] clopidogrel 75 MG 75 mg=1 tab, PO, No Longer [place] Oral Tablet Daily, 0 2017 [place] [Plavix] Refill(s) Aspirin 81 mg, 0 No Longer [place] Refill(s) Active 2017 [place] nebivolol 10 MG 10 mg=1 tab, PO, Active [place] Oral Tablet Daily, 0 2017 [place] [Bystolic] Refill(s) Bystolic 10 mg, 2 tab, No Longer [place] Route: PO, Drug Active 2017 [place] form: TAB, Daily, Dosing Weight 86.364, kg, Start date: 05/28/17 9:00:00 CDT, Duration: 30 day, Stop date: 06/26/17 9:00:00 CDTNotes: (same as: Bystolic) Crestor 10 mg, 1 tab, No Longer [place] Route: PO, Drug Active 2017 [place] form: TAB, Bedtime, Dosing Weight 89.545, kg, Start date: 05/27/17 21:00:00 CDT, Duration: 30 day, Stop date: 06/25/17 21:00:00 CDTNotes: (Same As: Crestor) Docusate 100 mg, 1 cap, No Longer [place] Route: PO, Drug Active 2017 [place] form: CAP, BID, Dosing Weight 89.545, kg, Start date: 05/27/17 9:00:00 CDT, Duration: 30 day, Stop date: 06/25/17 17:00:00 CDTNotes: (Same as: Colace) (Do Not Crush) Lisinopril 40 mg, 2 tab, No Longer [place] Route: PO, Drug Active 2017 [place] form: TAB, Daily, Dosing Weight 89.545, kg, Start date: 05/27/17 9:00:00 CDT, Duration: 30 day, Stop date: 06/25/17 9:00:00 CDTNotes: (Same as: Prinivil, Zestril) Clonidine 0.1 mg, 1 tab, Inactive [place] Hydrochloride 0.1 Route: PO, Drug 2018 [place] MG Oral Tablet form: TAB, BID, Dosing Weight 89.545, kg, Start date: 05/27/17 9:00:00 CDT, Duration: 30 day, Stop date: 06/25/17 17:00:00 CDTNotes: (Same As: Catapres) Hydralazine 10 mg, 0.5 mL, No Longer [place] Route: IVP, Drug Active 2017 [place] form: INJ, Q6H, Dosing Weight 86.364, kg, PRN Hypertension, for BP systolic >180, Start date: 05/27/17 4:19:00 CDT, Duration: 30 day, Stop date: 06/26/17 4:18:00 CDTNotes: (Same as: Apresoline) Push over 5 minutes Cataflam 50 mg=1 tab, PO, Inactive [place] TID, PRN pain, # 2017 [place] 30 tab, 0 Refill(s) Acetaminophen 650 mg, 2 tab, No Longer [place] Route: PO, Drug Active 2017 [place] form: TAB, Q4H, Dosing Weight 89.545, kg, PRN Pain 1-3/Temp > 100.4 F, Start date: 05/27/17 2:05:00 CDT, Duration: 30 day, Stop date: 06/26/17 2:04:00 CDTNotes: Do not exceed 4 gm/day. (Same as: Tylenol) Acetaminophen 325 1 tab, Route: No Longer [place] MG / Hydrocodone PO, Drug Form: Active 2017 [place] Bitartrate 5 MG TAB, Dosing Oral Tablet Weight 89.545, kg, Q4H, PRN Pain Score 4-6, Start date: 05/27/17 2:05:00 CDT, Duration: 30 day, Stop date: 06/26/17 2:04:00 CDTNotes: (Same as: [place] 325/5) Do not exceed 4gm/day of acetaminophen. Morphine 2 mg, 1 mL, No Longer [place] Route: IVP, Drug Active 2017 [place] form: INJ, Q4H, Dosing Weight 89.545, kg, PRN Pain Score 7-10, Start date: 05/27/17 2:05:00 CDT, Duration: 30 day, Stop date: 06/26/17 2:04:00 CDTNotes: (Same as:MORPhine Sulfate) Ondansetron 4 mg, 2 mL, No Longer [place] Route: IVP, Drug Active 2017 [place] form: INJ, Q6H, Dosing Weight 89.545, kg, PRN Nausea & Vomiting, Start date: 05/27/17 2:05:00 CDT, Duration: 30 day, Stop date: 06/26/17 2:04:00 CDTNotes: (Same as: Zofran) MEDICATION WASTE Product Size: 4 mg Product Wasted: ___ mg Irrigation w/ 3,000 mL, Route: Inactive [place] Normal Saline INTRAVESICULAR, [address] [facility] Drug Form: SOLN, Dosing Weight 89.545, kg, Continuous, Start date: 05/27/17 2:00:00 CDT, Duration: 30 day, Stop date: 06/26/17 1:59:00 CDTNotes: For irrigation only. Sodium Chloride 3,000 mL, Route: Inactive [place] 0.0769 MEQ/ML Intravesical, [address] [facility] Irrigation Drug Form: SOLN, Solution Dosing Weight 89.545, kg, Continuous, Start date: 05/27/17 2:00:00 CDT, Duration: 30 day, Stop date: 06/26/17 1:59:00 CDTNotes: For irrigation only. Sodium Chloride 250 mL, Rate: To No Longer [place] 0.9% (titrate) prime line and Active 2017 [place] 250 mL flush remaining blood products., Dosing Weight 89.545, kg, Route: IV, Total Volume: 250, Start Date: 05/27/17 1:25:00 CDT, Duration: 30 day, Stop date: 06/26/17 1:24:00 CDT, Replace Every: 24 hr Irrigation w/ 3,000 mL, Route: Inactive [place] Normal Saline Intravesical, [address] [facility] Drug Form: SOLN, Dosing Weight 89.545, kg, ONCE, Start date: 05/27/17 0:58:00 CDT, Stop date: 05/27/17 0:58:00 CDTNotes: For irrigation only. Irrigation w/ 3,000 mL, Route: Inactive [place] Normal Saline INTRAVESICULAR, [address] [facility] Drug Form: SOLN, Dosing Weight 89.545, kg, ONCE, STAT, Start date: 05/26/17 23:45:00 CDT, Stop date: 05/26/17 23:45:00 CDTNotes: For irrigation only. Saline Flush 0.9% 10 mL, Route: No Longer [place] IVP, Drug Form: Active 2018 [place] INJ, Dosing Weight 89.545, kg, PRN, PRN Line Flush, Start date: 05/26/17 23:12:00 CDT, Duration: 30 day, Stop date: 06/25/17 23:11:00 CDTNotes: (Same as: BD Posiflush) Phenazopyridine 100 mg=1 tab, No Longer [place] hydrochloride 100 PO, TID, PRN Active 2018 [place] MG Oral Tablet Dysuria, X 2 [Pyridium] day, # 6 tab, 0 Refill(s) Acetaminophen 300 1 - 2 tab, PO, No Longer [place] MG / Codeine Q4H, PRN Pain, X Active 2017 [place] Phosphate 60 MG 2 day, # 12 tab, Oral Tablet 0 Refill(s) [Tylenol with Codeine #4] Acetaminophen 325 2 tab, Route: Inactive [place] MG / Hydrocodone PO, Drug Form: 2018 [place] Bitartrate 5 MG TAB, Dosing Oral Tablet Weight 89.545, [[place] 5/325] kg, ONCE, STAT, Start date: 05/26/17 20:45:00 CDT, Stop date: 05/26/17 20:45:00 CDT Morphine 4 mg, Route: Inactive [place] IVP, ONCE, 2018 [place] Dosing Weight 89.545, kg, Priority: STAT, Start date: 05/26/17 20:16:00 CDT, Stop date: 05/26/17 20:16:00 CDT Morphine 4 mg, Route: Inactive [place] IVP, ONCE, 2018 [place] Dosing Weight 89.545, kg, Priority: STAT, Start date: 05/26/17 19:36:00 CDT, Stop date: 05/26/17 19:36:00 CDT diltiazem 360 mg, 1 cap, Inactive [place] Route: PO, Drug 2016 Medical form: ERCAP, Center ONCE, Dosing Weight 93.182, kg, Start date: 09/24/16 8:38:00 CDT, Stop date: 09/24/16 8:38:00 CDTNotes: DO NOT CRUSH. Lisinopril 40 mg, 2 tab, No Longer [facility] Route: PO, Drug Active 2016 Medical form: TAB, Center Daily, Dosing Weight 93.182, kg, Start date: 09/23/16 9:00:00 CDT, Duration: 30 day, Stop date: 10/22/16 9:00:00 CDTNotes: (Same as: Prinivil, Zestril) Famotidine 20 MG 20 mg=1 tab, PO, Active [facility] Oral Tablet BID, # 20 tab, 0 2016 Medical Refill(s) [place] magnesium citrate 8.725 ec=302 ml, No Longer [facility] 58.2 MG/ML Oral PO, Daily, X 2 Active 2016 Medical Solution day, # 300 mL, 0 Center Refill(s) Acetaminophen 325 1 tab, PO, Q6H, Active [facility] MG / Hydrocodone PRN for pain, X 2017 Medical Bitartrate 10 MG 14 day, # 90 Center Oral Tablet tab, 0 Refill(s) [[place] 10/325] Methocarbamol 500 500 mg=1 tab, Active [facility] MG Oral Tablet PO, Q8H, PRN 2017 Medical [Robaxin] Spasms, X 10 Center day, # 30 tab, 0 Refill(s) {21 See Active [facility] (Methylprednisolo Instructions, 2017 Medical ne 4 MG Oral PO, Take by [place] Tablet [Medrol]) mouth as } Pack [Medrol directed on Dosepak] label., # 1 Pack, 0 Refill(s) Flomax 0.4 mg, 1 cap, No Longer [facility] Route: PO, Drug Active 2016 Medical form: CAP, Center Daily, Dosing Weight 93.182, kg, Start date: 09/23/16 1:28:00 CDT, Duration: 30 day, Stop date: 10/22/16 9:00:00 CDTNotes: (Same As: Flomax) "Do Not Crush" Cefazolin 2 gm, Route: IV, No Longer [place] Drug form: INJ, Active 2016 Medical [id number], Dosing Center Weight 93.182, kg, Start date: 09/22/16 22:00:00 CDT, Duration: 24 hr, Stop date: 09/23/16 14:00:00 CDT, ABX Indication: Surgical ProphylaxisNotes : (Same As: AncJaneen landa) Cefazolin FOR IV SET ONLY MEDICATION WASTE Product Size: 1000 mg Product Wasted: _0__ mg Saline Flush 0.9% 10 ml, Route: No Longer [place] IVP, Drug Form: Active 2016 Medical INJ, Dosing Center Weight 93.182, kg, Q12H, Start date: 09/22/16 21:00:00 CDT, Duration: 30 day, Stop date: 10/22/16 9:00:00 CDTNotes: (Same as: BD Posiflush) Dexamethasone 4 mg, 1 tab, No Longer [place] Route: PO, Drug Active 2016 Medical form: TAB, Q6H, Center Dosing Weight 93.182, kg, Start date: 09/22/16 18:00:00 CDT, Duration: 30 day, Stop date: 10/22/16 12:00:00 CDTNotes: Give with food. (Same As: Decadron) Famotidine 20 MG 20 mg, 1 tab, No Longer [facility] Oral Tablet Route: PO, Drug Active 2016 Medical form: TAB, BID, Center Dosing Weight 93.182, kg, Start date: 09/22/16 17:00:00 CDT, Duration: 30 day, Stop date: 10/22/16 9:00:00 CDTNotes: (Same as: Pepcid) Docusate 50 mg, 1 cap, No Longer [facility] Route: PO, Drug Active 2016 Medical form: CAP, BID, Center Dosing Weight 93.182, kg, Start date: 09/22/16 17:00:00 CDT, Duration: 30 day, Stop date: 10/22/16 9:00:00 CDT, Pediatric DosingNotes: (Same as: Colace) (Do Not Crush) sennosides, SNF 8.6 mg, 1 tab, No Longer [place] Route: PO, Drug Active 2016 Medical Form: TAB, Center Dosing Weight 93.182, kg, BID, Start date: 09/22/16 17:00:00 CDT, Duration: 30 day, Stop date: 10/22/16 9:00:00 CDTNotes: (Same as: Senokot) Clonidine 0.1 mg, 1 tab, No Longer [place] Hydrochloride 0.1 Route: PO, Drug Active 2016 Medical MG Oral Tablet form: TAB, BID, Center Dosing Weight 93.182, kg, Start date: 09/22/16 17:00:00 CDT, Duration: 30 day, Stop date: 10/22/16 9:00:00 CDTNotes: (Same As: Catapres) Ondansetron 4 mg, 2 mL, Inactive [place] Route: IVP, Drug 2016 Medical form: INJ, ONCE, Center Dosing Weight 93.182, kg, PRN Nausea & Vomiting, Start date: 09/22/16 16:37:00 CDTNotes: (Same as: Zofran) MEDICATION WASTE Product Size: 4 mg Product Wasted: ___ mg Naloxone 0.4 mg, 1 mL, Inactive [place] Route: IVP, Drug 2016 Medical form: INJ, Center Q2MIN, Dosing Weight 93.182, kg, PRN Narcotic Reversal, Start date: 09/22/16 16:37:00 CDT, Duration: 8 doses or times, Stop date: Limited # of timesNotes: Same as Narcan Flumazenil 0.2 mg, 2 mL, Inactive [place] Route: IVP, Drug 2016 Medical form: INJ, PRN, Center Dosing Weight 93.182, kg, PRN Benzodiazepine Reversal, Initial dose, Start date: 09/22/16 16:37:00 CDT, Duration: 30 day, Stop date: 10/22/16 16:36:00 CDTNotes: (Same as: Romazicon) Hydralazine 10 mg, 0.5 mL, Inactive [place] Route: IVP, Drug 2017 Medical form: INJ, Center Q20Min, Dosing Weight 93.182, kg, PRN Elevated BP, Start date: 09/22/16 16:37:00 CDT, Duration: 2 doses or times, Stop date: Limited # of timesNotes: (Same as: Apresoline) Push over 5 minutes Hydromorphone 0.5 mg, 0.25 mL, Inactive [place] Route: IVP, Drug 2016 Medical form: INJ, Center Q5Min, Dosing Weight 93.182, kg, PRN Pain Score 7-10, Start date: 09/22/16 16:37:00 CDT, Duration: 4 doses or times, Stop date: Limited # of timesNotes: Same as: Dilaudid Oxycodone 5 mg, 1 tab, Inactive [place] Route: PO, Drug 2016 Medical form: TAB, Q4H, Center Dosing Weight 93.182, kg, PRN Pain Score 4-6, Start date: 09/22/16 16:37:00 CDT, Duration: 30 day, Stop date: 10/22/16 16:36:00 CDTNotes: (Same as: Roxicodone) Saline Flush 0.9% 10 ml, Route: No Longer [place] IVP, Drug Form: Active 2017 Medical INJ, Dosing Center Weight 93.182, kg, PRN, PRN Line Flush, Start date: 09/22/16 16:11:00 CDT, Duration: 30 day, Stop date: 10/22/16 16:10:00 CDTNotes: (Same as: BD Posiflush) Robaxin 500 mg, 1 tab, No Longer [place] Route: PO, Drug Active 2016 Medical form: TAB, TID, Center Dosing Weight 93.182, kg, PRN Spasm, Start date: 09/22/16 16:11:00 CDT, Duration: 30 day, Stop date: 10/22/16 16:10:00 CDTNotes: (Same as:Robaxin) Hydralazine 20 mg, 1 mL, No Longer [place] Route: IVP, Drug Active 2017 Medical form: INJ, Q4H, Center Dosing Weight 93.182, kg, PRN Hypertension, Start date: 09/22/16 16:11:00 CDT, Duration: 30 day, Stop date: 10/22/16 16:10:00 CDTNotes: (Same as: Apresoline) Push over 5 minutes Labetalol 10 mg, 2 mL, No Longer [place] Route: IVP, Drug Active 2016 Medical form: INJ, Center Q15Min, Dosing Weight 93.182, kg, PRN Hypertension, Start date: 09/22/16 16:11:00 CDT, Duration: 30 day, Stop date: 10/22/16 16:10:00 CDT Ondansetron 4 mg, 2 mL, No Longer [place] Route: IVP, Drug Active 2016 Medical form: INJ, Q6H, Center Dosing Weight 93.182, kg, PRN Nausea & Vomiting, Start date: 09/22/16 16:11:00 CDT, Duration: 30 day, Stop date: 10/22/16 16:10:00 CDT, >/=4 years, Pediatric DosingNotes: (Same as: Kt) MEDICATION WASTE Product Size: 4 mg Product Wasted: ___ mg Acetaminophen 325 1 tab, Route: No Longer [place] MG / Hydrocodone PO, Drug Form: Active 2017 Medical Bitartrate 10 MG TAB, Dosing Center Oral Tablet Weight 93.182, [[place] 10/325] kg, Q4H, PRN Pain Score 1-3, Start date: 09/22/16 16:11:00 CDT, Duration: 30 day, Stop date: 10/22/16 16:10:00 CDTNotes: Do not exceed 4gm/day of acetaminophen. (Same as: [place] 325/10) Dilaudid 0.5 mg, 0.25 mL, No Longer [place] Route: IVP, Drug Active 2016 Medical form: INJ, Q3H, Center Dosing Weight 93.182, kg, PRN Pain Score 7-10, Start date: 09/22/16 16:11:00 CDT, Duration: 30 day, Stop date: 10/22/16 16:10:00 CDTNotes: Same as: Dilaudid Bisacodyl 10 mg, 1 supp, No Longer [place] Route: MA, Drug Active 2016 Medical form: SUPP, Center Daily, Dosing Weight 93.182, kg, PRN Constipation, Start date: 09/22/16 16:11:00 CDT, Duration: 30 day, Stop date: 10/22/16 16:10:00 CDTNotes: (Same As: Dulcolax, [place]-Lax) phenol 1 spray, Route: No Longer [place] TOP, Daily, Drug Active 2016 Medical form: SPRY, PRN Center Sore Throat, Start date: 09/22/16 16:11:00 CDT, Duration: 30 day, Stop date: 10/22/16 16:10:00 CDTNotes: Chloraseptic [place] (Same as: Chloraseptic, Sore Throat [place]) WASTE: F/P - Black; E - [employer]ash [employer] Melatonin 3 MG 3 mg, 1 tab, No Longer [place] Extended Release Route: PO, Drug Active 2016 Medical Tablet Form: TAB, Center Dosing Weight 93.182, kg, Bedtime, PRN as needed for insomnia, Start date: 09/22/16 16:11:00 CDT, Duration: 30 day, Stop date: 10/22/16 16:10:00 CDTNotes: (Same as: Melatonin) Benadryl 25 mg, 1 cap, No Longer [place] Route: PO, Drug Active 2016 Medical form: CAP, TID, Center Dosing Weight 93.182, kg, PRN Itching, Start date: 09/22/16 16:11:00 CDT, Duration: 30 day, Stop date: 10/22/16 16:10:00 CDTNotes: (Same as: Benadryl) ceFAZolin 2 gm, 100 mL, No Longer [facility] Route: IVPB, Active 2016 Medical Drug form: INJ, Center PRE OP, Start date: 09/22/16 3:00:00 CDT, Duration: 1 day, Stop date: 09/23/16 2:59:00 CDT, ABX Indication: Surgical ProphylaxisNotes : Same as: Ancef Allergies, Adverse Reactions, Alerts Substance Category Reaction Severity Reaction Status Date Comments Source type Reported NKDA Assertion Drug Active [facility] allergy [facility] Immunizations Immunization Date Given Site Status Last Updated Comments Source Results Order Name Results Value Reference Date Interpretation Comments Source Range HEMATOLOGY MCHC 32.2 g/dL 32.0 - 05/29 [place] 36.0 [place] HEMATOLOGY MPV 8.6 fL 7.4 - 10.4 05/29 [place] HEMATOLOGY Platelet 222 K/CMM 133 - 450 05/29 [place] HEMATOLOGY RDW 16.8 % 11.5 - 05/29 [place] 14.5 [place] HEMATOLOGY Hgb 11.3 g/dL 14.0 - 05/29 [place] 18.0 [place] HEMATOLOGY RBC 4.00 M/CMM 4.70 - 05/29 [place] 6.10 [place] HEMATOLOGY WBC 51.5 K/CMM 3.7 - 10.4 05/29 Result Comment: [place] Critical Result(s) called to Zoran Ortiz at 05/29/2017 05:34 by FLOR. Read back OK. HEMATOLOGY MCV 87.5 fL 80.0 - 05/29 [place] 94.0 [place] HEMATOLOGY Hct 35.0 % 42.0 - 05/29 [place] 54.0 [place] HEMATOLOGY MCH 28.2 pg 27.0 - 05/29 [place] 31.0 [place] HEMATOLOGY Monocytes # 1.8 K/CMM 0.0 - 0.8 05/29 [place] HEMATOLOGY Basophils # 0.1 K/CMM 0.0 - 0.2 05/29 [place] HEMATOLOGY Eosinophils 0.5 K/CMM 0.0 - 0.5 05/29 [place] # [place] HEMATOLOGY Monocytes 3.5 % 2.0 - 12.0 05/29 [place] HEMATOLOGY Lymphocytes 77.1 % 20.0 - 05/29 [place] 40.0 [place] HEMATOLOGY Segs 18.1 % 45.0 - 05/29 [place] 75.0 [place] HEMATOLOGY Lymphocytes 39.7 K/CMM 1.0 - 5.5 05/29 [place] # [place] HEMATOLOGY Eosinophils 1.0 % 0.0 - 4.0 05/29 [place] HEMATOLOGY Segs-Bands # 9.3 K/CMM 1.5 - 8.1 05/29 [place] HEMATOLOGY Basophils 0.3 % 0.0 - 1.0 05/29 [place] HEMATOLOGY Eosinophils 1.0 % 0.0 - 4.0 04/22 [facility] [place] /2018 [place] HEMATOLOGY Monocytes 2.0 % 2.0 - 12.0 05/28 [place] HEMATOLOGY Tot Cell Ct 100 05/28 [place] HEMATOLOGY Atypical 2.0 % <=0.0 % 05/28 [place] Lymphs [place] HEMATOLOGY Hypochrom 1+ None Seen 05/28 [place] (05/28/17 5:41 AM) HEMATOLOGY Smudge Moderate None Seen 05/28 [place] *ABN* (05/28/17 5:41 AM) HEMATOLOGY Anisocyte 1+ None Seen 05/28 [place] *ABN* (05/28/17 5:41 AM) HEMATOLOGY Microcyte 1+ None Seen 05/28 [place] *ABN* (05/28/17 5:41 AM) HEMATOLOGY Lymphocytes 42.8 K/CMM 1.0 - 5.5 05/28 [place] HEMATOLOGY Segs 13.0 % 45.0 - 05/28 [place] 75.0 [place] HEMATOLOGY Eosinophils 0.5 K/CMM 0.0 - 0.5 05/28 [place] HEMATOLOGY Lymphocytes 82.0 % 20.0 - 05/28 [place] 40.0 [place] HEMATOLOGY Bands 0.0 % 0.0 - 11.0 05/28 [place] HEMATOLOGY Segs-Bands # 6.6 K/CMM 1.5 - 8.1 05/28 [place] HEMATOLOGY Monocytes # 1.0 K/CMM 0.0 - 0.8 05/28 [place] HEMATOLOGY Platelet 225 K/CMM 133 - 450 05/28 [place] HEMATOLOGY RDW 16.4 % 11.5 - 05/28 [place] 14.5 [place] HEMATOLOGY MCH 27.8 pg 27.0 - 05/28 [place] 31.0 [place] HEMATOLOGY MCHC 32.2 g/dL 32.0 - 05/28 [place] 36.0 [place] HEMATOLOGY MCV 86.2 fL 80.0 - 05/28 [place] 94.0 [place] HEMATOLOGY Hct 35.5 % 42.0 - 05/28 [place] 54.0 /2017 [place] HEMATOLOGY MPV 8.2 fL 7.4 - 10.4 05/28 [place] HEMATOLOGY Hgb 11.4 g/dL 14.0 - 05/28 [place] [address] [facility] HEMATOLOGY RBC 4.13 M/CMM 4.70 - 05/28 [place] 6.[address] [facility] HEMATOLOGY WBC 51.0 K/CMM 3.7 - 10.4 05/28 Result Comment: [facility] Critical Result(s) called to HANDY Garcia at 05/28/2017 05:59 by BARREL STRAIGHTENER. Read back OK. Bladder US Bladder US Bladder Ultrasound 05/27 - - [facility] History: Hematuria - looking for blood clots Read by: Fozia Nick MD Dictated Date/time: 05/27/17 18:49 Electronically Signed by: Fozia Nick MD 05/27/17 18:51 FINAL REPORT Technique: Longitudinal and transverse grayscale images of the bladder were obtained using real-time ultrasound. Findings: Bladder demonstrates a normal partially filled configuration. Saba catheter is noted. Irregular echogenic areas noted in the bladder are suggestive of blood clots. It measures 3 x 2.7 cm in size. Leonardo red to prior examination decrease in size of the blood clot is noted. Impression: Incompletely filled bladder with a Saba catheter and suggestion of a blood clot, smaller in size compared to earlier study. CHEM PANEL eGFR 68 05/27 Result Comment: The eGFR is calculated using the CKD-EPI formula. In most young, healthy individuals the eGFR will be >90 mL/ min/1.73m2. The eGFR declines with age. An eGFR of 60-89 may be normal in [facility] mL/min/1. some populations, particularly the elderly, for whom the CKD-EPI formula has not been extensively validated. Use of the eGFR is not recommended in the following populations: [place] 3m2 Individuals with unstable creatinine concentrations, including patients and those with serious co-morbid conditions. Patients with extremes in muscle mass or diet. The data above are obtained from the National Kidney Disease Education Program (NKDEP) which additionally recommends that when the eGFR is used in patients with extremes of body mass index for purposes of drug dosing, the eGFR should be multiplied by the estimated BMI. CHEM PANEL CO2 24 meq/L 24 - 32 05/[address] [facility] CHEM PANEL Chloride Lvl 107 meq/L 95 - 109 05/27 [place] CHEM PANEL Potassium 3.8 meq/L 3.5 - 5.1 05/27 [place] Lvl [place] CHEM PANEL Sodium Lvl 142 meq/L 135 - 145 05/27 [place] CHEM PANEL Creatinine 1.08 mg/dL 0.50 - 05/27 [place] Lvl 1.40 [place] CHEM PANEL BUN 20 mg/dL 7 - 22 05/27 [place] CHEM PANEL Calcium Lvl 8.7 mg/dL 8.5 - 10.5 05/27 [place] CHEM PANEL Glucose Lvl 119 mg/dL 70 - 99 05/27 [place] CHEM PANEL AGAP 14.8 meq/L 10.0 - 05/27 [place] 20.0 [place] HEMATOLOGY Smudge Few 05/27 [place] HEMATOLOGY Monocytes 1.3 % 2.0 - 12.0 05/27 [place] HEMATOLOGY Basophils 0.5 % 0.0 - 1.0 05/27 [place] HEMATOLOGY Eosinophils 0.3 % 0.0 - 4.0 05/27 [place] HEMATOLOGY Monocytes # 0.8 K/CMM 0.0 - 0.8 05/27 [place] HEMATOLOGY Segs-Bands # 10.9 K/CMM 1.5 - 8.1 05/27 [place] HEMATOLOGY Lymphocytes 44.6 K/CMM 1.0 - 5.5 05/27 [place] HEMATOLOGY Basophils # 0.3 K/CMM 0.0 - 0.2 05/27 [place] HEMATOLOGY Anisocyte 1+ None Seen 05/27 [place] *ABN* (05/27/17 8:34 AM) HEMATOLOGY Eosinophils 0.2 K/CMM 0.0 - 0.5 05/27 [place] HEMATOLOGY Segs 19.3 % 45.0 - 05/27 [place] 75.0 [place] HEMATOLOGY Plt Morph Normal 05/27 [place] (05/27/17 8:34 AM) HEMATOLOGY Lymphocytes 78.6 % 20.0 - 05/27 [place] 40.0 [place] HEMATOLOGY Platelet 213 K/CMM 133 - 450 05/27 [place] HEMATOLOGY MPV 8.5 fL 7.4 - 10.4 05/27 [place] HEMATOLOGY MCHC 33.0 g/dL 32.0 - 05/27 [place] 36.0 /[address] [facility] HEMATOLOGY RDW 16.4 % 11.5 - 05/27 [place] 14.[address] [facility] HEMATOLOGY Hgb 12.4 g/dL 14.0 - 05/27 [place] 18.0 /[address] [facility] HEMATOLOGY MCV 86.8 fL 80.0 - 05/27 [place] 94.0 /[address] [facility] HEMATOLOGY Hct 37.4 % 42.0 - 05/27 [place] 54.0 /[address] [facility] HEMATOLOGY MCH 28.7 pg 27.0 - 05/27 [place] 31.0 /[address] [facility] HEMATOLOGY WBC 56.8 K/CMM 3.7 - 10.4 05/27 Result Comment: [facility] [facility] Result(s) called to Nadeem Ayala Rn at 05/27/2017 08:53 by Bry. Read back OK. HEMATOLOGY RBC 4.31 M/CMM 4.70 - 05/27 Sugar [address] [facility] Bladder US Bladder US EXAM: 05/27 - - [facility] Urinary bladder ultrasound. Read by: Geovanni Caballero MD Dictated Date/time: 05/27/17 09:46 CLINICAL HX: Electronically Signed by: Geovanni Caballero MD 05/27/17 09:48 FINAL REPORT Hematuria. Saba catheterization. Age: 72 years. Gender: Male. TECHNIQUE: Grayscale and Doppler sonogram of the urinary bladder. COMPARISON: None. FINDINGS: Urinary bladder: -- Lumen: 7.8 x 7.7 x 5.8 cm heterogeneous, round mass within the bladder lumen. Saba catheter balloon is seen within this mass. -- Ureteral jets: Not evaluated. -- Volume: Prevoid 295 cc, postvoid not measured. Other: None. IMPRESSION: 1. Large intraluminal bladder mass which likely represents hematoma. Other differential considerations include infectious process (such as fungal) and neoplasm. BLOOD BANK ABO/Rh A POS 05/27 [place] RESULTS /[address] [facility] BLOOD BANK Antibody Negative 05/27 [place] RESULTS Scrn [facility] (05/27/17 1:34 AM) BLOOD BANK Platelet Product available 05/27 [place] RESULTS product /[address] [facility] (05/27/17 1:25 AM) CHEM PANEL eGFR 49 04/21 Result Comment: The eGFR is calculated using the CKD-EPI formula. In most young, healthy individuals the eGFR will be >90 mL/ min/1.73m2. The eGFR declines with age. An eGFR of 60-89 may be normal in mL/min/1. some populations, particularly the elderly, for whom the CKD-EPI formula has not been extensively validated. Use of the eGFR is not recommended in the following populations: [facility] 3m2 Individuals with unstable creatinine concentrations, including patients and those with serious co-morbid conditions. Patients with extremes in muscle mass or diet. The data above are obtained from the National Kidney Disease Education Program (NKDEP) which additionally recommends that when the eGFR is used in patients with extremes of body mass index for purposes of drug dosing, the eGFR should be multiplied by the estimated BMI. CHEM PANEL Sodium Lvl 141 meq/L 135 - 145 05/27 [place] CHEM PANEL Potassium 3.5 meq/L 3.5 - 5.1 05/27 [place] CHEM PANEL Chloride Lvl 107 meq/L 95 - 109 05/27 [place] CHEM PANEL CO2 25 meq/L 24 - 32 05/27 [place] CHEM PANEL Calcium Lvl 9.1 mg/dL 8.5 - 10.5 05/27 [place] CHEM PANEL Glucose Lvl 150 mg/dL 70 - 99 05/27 [place] CHEM PANEL BUN 25 mg/dL 7 - 22 05/27 [place] CHEM PANEL Creatinine 1.41 mg/dL 0.50 - 05/27 [place] Lvl 1.40 [place] CHEM PANEL AGAP 12.5 meq/L 10.0 - 05/27 [place] [address] [facility] HEMATOLOGY Bands 0.0 % 0.0 - 11.0 05/[address] [facility] HEMATOLOGY RBC Morph Normal 05/[address] [facility] (05/26/17 11:22 PM) HEMATOLOGY Atypical 0.0 % <=0.0 % 05/[address] [facility] HEMATOLOGY Smudge Few 05/[address] [facility] HEMATOLOGY Large Plt Slight 05/[address] [facility] HEMATOLOGY Tot Cell Ct 100 05/[address] [facility] HEMATOLOGY Plt Morph Normal 05/[address] [facility] (05/26/17 11:22 PM) HEMATOLOGY INR 1.13 0.85 - 04/21 [place] 1.17 /[address] [facility] HEMATOLOGY PT 14.5 s 12.0 - 05/27 Sugar 14.[address] [facility] HEMATOLOGY PTT 33.1 s 22.9 - 05/27 [place] [address] [facility] Brain wo Brain wo EXAM: Brain wo contrast MRI 12/28 - [facility] contrast contrast MRI /2016 - [facility] PROVIDED CLINICAL HISTORY: R53.1, Weakness, M48.02, Spinal stenosis, cervical region - . Read by: aJmie Castellon MD Dictated Date/time: 12/28/16 16:16 Electronically Signed by: Jamie Castellon MD 12/28/16 17:07 FINAL REPORT TECHNIQUE: Multi-sequence, multi-planar MR of the brain without gadolinium contrast. COMPARISON: No relevant prior exams available at the time of interpretation. FINDINGS: BRAIN: -- Two subcentimeter ovoid foci of VAL-hwm-ezyyqxtea restricted diffusion, consistent with acute lacunar infarcts, involving the right posterior frontal green radiata. No large vascular territorial transcortical infarct. Old lacunar infarcts in the bilateral green radiata and the left thalamus. -- Extensive confluent foci of abnormally increased T2 and FLAIR signal throughout the supratentorial subcortical and periventricular deep white matter bilaterally, and within the brainstem, non-spe cific but most commonly due to chronic small vessel ischemic disease. -- No intracranial hemorrhage or other fluid collection. Approximately 2.6 cm arachnoid cyst along the right middle cranial fossa. No other intracranial mass. No cerebellar tonsillar ectopia. Promi nent but age-consistent global parenchymal volume loss. VENTRICLES / CISTERNS / SHIFT: No hydrocephalus. No significant effacement of the basal cisterns or foramen magnum. No significant midline shift. VESSELS: No loss of flow voids within the major intracranial vessels or dural sinuses. Vessel and dural sinus patency are not adequately assessed without dedicated angiography or venography. BONES / SCALP: No acute depressed fracture of the calvarium or skull base. No significant systemic marrow signal abnormality. No aggressive bony lesions. No significant extracranial soft tissue abnormality. IMAGED SINUSES / MASTOIDS: Moderate single-curved right nasal septal deviation. No significant paranasal sinus fluid. No significant paranasal sinus mucosal thickening. No significant mastoid sig nal abnormality. 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 IMPRESSION: Acute lacunar infarcts in the right green radiata. No large vascular territorial infarct. No intracranial mass or hemorrhage. Chronic lacunar infarcts. Chronic microangiopathic ischemic gliosis. This exam was performed on an outpatient basis. On 12/28/2016 4:30 PM [employer], a call was placed to to notify the referring clinician's office that this exam has important findings dimitri pacheco requiring urgent follow-up and to direct their attention to the report for details. There was no response after several attempts, and no voicemail option was available. Several unsuccessful atte mpts were subsequently made to reach the patient at the provided number of [phone]. A generic message was left on the voicemail instructing the patient to call his referring physician's offic e for immediate further instructions and to seek emergent care if symptomatic. SL: [facility] CERVICAL SPINE MRI WITHOUT CONTRAST 12/28/2016 AT 1503 HOURS. 12/28 - [facility] cervical wo cervical wo - [place] contrast contrast MRI Rehab MRI CLINICAL HISTORY: Weakness. Unable to walk for one week. No reported injury. Cervical canal stenosis?. Read by: Florentin Reyes MD Dictated Date/time: 12/28/16 16:15 Electronically Signed by: Florentin Reyes MD 12/28/16 16:25 FINAL REPORT COMPARISON STUDIES: Brain MRI from the same day. History of bladder cancer. ADMINISTERED CONTRAST: None. FINDINGS: Multiplanar T1, T2 and STIR sequences of the cervical spine were obtained without IV contrast. The cervical and visualized upper thoracic spinal cord shows normal signal intensity. No gross fo juju abnormalities are identified in the visualized posterior fossa. The prevertebral soft tissues are unremarkable. Numerous prominent bilateral anterior and posterior triangle lymph nodes are seen with the dominant right level 2 lymph node measuring 11 mm intra-axial diameter. Mildly prominent bilateral supraclavicular adenopathy. C2-C3: Broad-based 2 mm posterior central disc bulge with diffuse disc desiccation. Mid sagittal AP spinal canal diameter is 11 mm. Patent neural foramina. C3-C4: Moderate to severe degenerative disc disease with broad-based 2-3 mm posterior central disc bulge mildly indenting the thecal sac anteriorly. Mid sagittal AP spinal canal diameter is 9 mm in the presence of posterior facet osteophytes. Mild right foraminal stenosis with patent left neural foramen. C4-C5: Moderate to severe degenerative disc disease with broad-based 2-3 mm posterior central and bilateral paracentral disc bulge/uncovertebral osteophyte complex indenting the thecal sac anteriorly. M id sagittal AP spinal canal diameter is 11 mm. Mild to moderate bilateral foraminal stenosis. C5-C6: Moderate to severe degenerative disc disease with broad-based 2-3 mm posterior central, bilateral paracentral foraminal disc bulge/uncovertebral osteophyte complex indenting the thecal anteriorly . Mid sagittal AP spinal canal diameter is 12 mm. Mild right foraminal stenosis with patent left neural foramen. C6-C7: Severe degenerative disc disease with broad-based 2-3 mm posterior central bilateral paracentral disc bulge/uncovertebral osteophyte complex indenting the thecal sac anteriorly. Broad-based 3 mm left foraminal disc herniation. Mid sagittal AP spinal canal diameter is 9 mm in the presence of posterior facet osteophytes. Mild right foraminal stenosis with patent left neural foramen. C7-T1: Diffuse disc desiccation with broad-based to-3 mm posterior central bilateral paracentral disc bulge indenting the thecal sac appear to. Mid sagittal AP spinal canal diameter is 8 mm in the prese nce of facet arthropathy. Patent neural foramina. IMPRESSION: 1. Moderate to severe multilevel degenerative disc disease and uncovertebral joint hypertrophy with multilevel posterior disc bulges causing mild to moderate cervical canal stenosis at C3-C4, C6-C7 and C7-T1. 2. Broad-based 3 mm left foraminal disc herniation at C6-C7. 3. No spinal cord edema, compression or myelomalacia. 4. Bilateral anterior/posterior triangle and supraclavicular adenopathy, reactive or neoplastic. Correlate with history. 5. 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 SL: [id number] CHEM PANEL eGFR 54 09/19 Result Comment: The eGFR is calculated using the CKD-EPI formula. In most young, healthy individuals the eGFR will be >90 mL/ min/1.73m2. The eGFR declines with age. An eGFR of 60-89 may be normal in [facility] [place] mL/min/1.7 some populations, particularly the elderly, for whom the CKD-EPI formula has not been extensively validated. Use of the eGFR is not recommended in the following populations: [facility] Individuals with unstable creatinine concentrations, including patients and those with serious co-morbid conditions. Patients with extremes in muscle mass or diet. The data above are obtained from the National Kidney Disease Education Program (NKDEP) which additionally recommends that when the eGFR is used in patients with extremes of body mass index for purposes of drug dosing, the eGFR should be multiplied by the estimated BMI. Collection date/time has been modified to: 15:35:00. Previous collection date/time: 16:41:00. CHEM PANEL AGAP 15.8 meq/L 10.0 - 09/19 Result [facility] . Comment: [facility] date/time has been modified to: 15:35:00. Previous collection date/time: 16:41:00. CHEM PANEL Calcium Lvl 9.9 mg/dL 8.5 - 10.5 09/19 Result Comment: [facility] date/time has been modified to: 15:35:00. Previous collection date/time: 16:41:00. CHEM PANEL CO2 27 meq/L 24 - 32 09/19 Result Comment: [facility] date/time has been modified to: 15:35:00. Previous collection date/time: 16:41:00. CHEM PANEL Chloride Lvl 105 meq/L 95 - 109 09/19 Result Comment: [facility] date/time has been modified to: 15:35:00. Previous collection date/time: 16:41:00. CHEM PANEL Glucose Lvl 91 mg/dL 70 - 99 09/19 Result Comment: [facility] date/time has been modified to: 15:35:00. Previous collection date/time: 16:41:00. CHEM PANEL BUN 18 mg/dL 7 - 22 09/19 Result Comment: [facility] date/time has been modified to: 15:35:00. Previous collection date/time: 16:41:00. CHEM PANEL Sodium Lvl 144 meq/L 135 - 145 09/19 Result [facility] Comment: [facility] date/time has been modified to: 15:35:00. Previous collection date/time: 16:41:00. CHEM PANEL Creatinine 1.31 mg/dL 0.50 - 09/19 Result [facility] 1.40 Comment: [facility] date/time has been modified to: 15:35:00. Previous collection date/time: 16:41:00. CHEM PANEL Potassium 3.8 meq/L 3.5 - 5.1 09/19 Result [facility] Comment: [facility] date/time has been modified to: 15:35:00. Previous collection date/time: 16:41:00. Spine Spine Patient Name: IDANIA TERRY 08/11 - [facility] Thoracic wo Thoracic - [place] contrast contrast MRI : 1945; Age: 71 years y/o Male MRI MR: [id number] Read by: Brett Valente MD Dictated Date/time: 08/12/16 07:46 Electronically Signed by: Brett Valente MD 08/12/16 07:50 FINAL REPORT Study: Spine Thoracic wo contrast MRI 08/11/2016 5:03 PM CDT Clinical Indication: G95.9 Disease of spinal cord, unspecified - G95.9 Disease of spinal cord, unspecified; Comparison: None TECHNIQUE: Multiplanar T1, T2, STIR weighted noncontrast MRI of the thoracic spine is performed on the 1.5 Brionna magnet. FINDINGS: ALIGNMENT AND GENERAL SURVEY: There is normal alignment of the thoracic spine. Scattered vertebral body hemangiomas in the T8, T9, and T11 vertebral bodies are seen. No vertebral body marrow edema is no brina. There are no fractures or compression deformities. The thoracic spine posterior elements are normal. The costovertebral junctions are unremarkable. SPINAL CORD: The thoracic spine spinal cord is normal in size and signal. The CSF space is unremarkable. The conus medullaris ends at the thoracolumbar junction. DISK SPACES: The discs are desiccated throughout the spine. 3 mm central disc protrusion at T6-T7 is seen. Mild facet arthrosis in the lower thoracic spine is seen. There is no significant central or foraminal stenosis. IMPRESSION: 1. No focal abnormality of the thoracic spinal cord. 2. Scattered degenerative changes of the thoracic spine without spinal canal stenosis or neural foraminal narrowing. SL: [id number] Spine Spine Study: Spine cervical wo contrast MRI 08/11 - [facility] cervical wo cervical wo /2016 - [place] contrast contrast MRI MRI Clinical Indication: G95.9 Disease of spinal cord, unspecified - G95.9 Disease of spinal cord, unspecified Read by: Brett Valente MD Dictated Date/time: 08/12/16 07:50 Electronically Signed by: Brett Valente MD 08/12/16 07:57 FINAL REPORT Comparison: None TECHNIQUE: Multiplanar, multisequence magnetic resonance imaging of the cervical spine was performed without the administration of intravenous gadolinium contrast. FINDINGS: There is normal alignment of the cervical spine. No focal marrow signal abnormality is present. The prevertebral soft tissues, atlanto-dental interspace , and craniocervical junction are within normal li mits. The visualized brainstem region is unremarkable. The cervical spinal cord is normal in size and signal. The discs are desiccated throughout cervical spine. Moderate-severe multilevel disc height loss from C4-C5 through C6-C7 is seen. There is mild disc height loss at C3-C4. DISC SPACES: C2-C3: Negative for significant disc bulge or protrusion. Severe right and mild left facet arthrosis is seen. There is mild right neural foraminal narrowing without spinal canal stenosis. C3-C4: Moderate to large circumferential disc osteophyte complex is seen. Moderate-severe facet arthrosis is noted. There is no spinal canal stenosis. Severe bilateral neural foraminal narrowing is present, right greater than left. C4-C5: Large circumferential disc osteophyte complex with superimposed uncovertebral arthrosis is seen. Moderate left facet arthrosis is present. There is severe bilateral neural foraminal narrowing without spinal canal stenosis. C5-C6: Large circumferential disc osteophyte complex with superimposed uncovertebral arthrosis is seen. Moderate left facet arthrosis is present. No spinal canal stenosis is seen. There is severe bilate ral neural foraminal narrowing, right greater than left. C6-C7: Large circumferential disc osteophyte complex with superimposed uncovertebral arthrosis is seen. Facets are intact. There is moderate spinal canal stenosis with the thecal sac measuring 8 mm AP d imension. Severe bilateral neural foraminal narrowing is present. C7-T1: 2 mm diffuse disc bulge is seen. Moderate-severe facet arthrosis, right greater than left, is seen. There is no spinal canal stenosis. Mild bilateral neural foraminal narrowing is noted, right greater than left. IMPRESSION: 1. Multilevel degenerative changes throughout cervical spine, most notable at C6-C7 with moderate spinal canal stenosis and severe bilateral neural foraminal narrowing. 2. Severe bilateral neural foraminal narrowing from C3-C4 through C5-C6. 3. No focal signal at the body of the cervical spinal cord. SL: [id number] Spine Spine lumbar EXAM: XR LUMBAR SPINE 3 VIEWS 07/20 - [facility] lumbar flex/ext - [place] flex/ext 2 view DX view DX DATE: 07/20/2016 10:50 AM CDT Read by: Kings Avilez MD Dictated Date/time: 07/20/16 11:49 Electronically Signed by: Kings Avilez MD 07/20/16 11:50 FINAL REPORT INDICATION: - M54.5 Low back pain / M54.16 Radiculopathy, lumbar region COMPARISON: None TECHNIQUE: Lateral views in neutral position, flexion and extension, of the lumbar spine FINDINGS: 5 lumbar type, non-rib bearing vertebral bodies are present. Mild anterolisthesis L4 over L5 with around 5 mm offset. Alignment is otherwise intact. Vertebral body heights and disc spaces are intact. Flexion extension views show no evidence of instability with persistence of the 5 mm offset . Severe facet arthropathy L4-5 and L5-S1. Moderate facet arthropathy L3-4. No soft tissue abnormality is identified. IMPRESSION: 1. Grade 1 anterolisthesis L4 over L5 with 5 mm offset at the stable on the flexion extension views. 2. Severe facet arthropathy L4-5 and L5-S1 and to lesser degree L3-4. Vital Signs Vital Sign Value Date Comments Source Heart Rate 63 05/29/2017 [facility] Temperature Oral (F) 97.8 F 05/29/2017 [place] Respitory Rate 18 05/29/2017 [place] Systolic (mm Hg) 145 05/29/2017 [place] Diastolic (mm Hg) 83 05/29/2017 [place] Respitory Rate 18 05/29/2017 [place] Heart Rate 64 05/29/2017 [place] Temperature Oral (F) 97.4 F 05/29/2017 [place] Systolic (mm Hg) 156 05/29/2017 [place] Diastolic (mm Hg) 86 05/29/2017 [place] Respitory Rate 18 05/29/2017 [facility] Temperature Oral (F) 98 F 05/29/2017 [place] Heart Rate 59 05/29/2017 [place] Systolic (mm Hg) 158 05/29/2017 [place] Diastolic (mm Hg) 69 05/29/2017 [facility] BMI Calculated 27.32 05/27/2017 [place] Height 177.8 cm 05/27/2017 [place] Weight 86.364 05/27/2017 [place] Weight 89.545 05/27/2017 [place] Weight 90.909 12/28/2016 [facility] BMI Calculated 28.76 12/28/2016 [facility] Height 177.8 cm [facility]/28/[facility] 74 12/28/2016 [facility] Systolic (mm Hg) 163 12/28/2016 [facility] Diastolic (mm Hg) 82 12/28/2016 [facility] Temperature Oral (F) 97.8 F 12/28/2016 [facility] Heart Rate 89 09/24/2016 [facility] Temperature Oral (F) 97.5 F 09/24/2016 [facility] Respitory Rate 18 09/24/2016 [facility] Systolic (mm Hg) 176 09/24/2016 [facility] Diastolic (mm Hg) 83 09/24/2016 [facility] Heart Rate 84 09/24/2016 [facility] Systolic (mm Hg) 143 09/24/2016 [facility] Diastolic (mm Hg) 73 09/24/2016 [facility] Respitory Rate 17 09/24/2016 [facility] Temperature Oral (F) 98.5 F 09/24/2016 [facility] Temperature Oral (F) 98.1 F 09/24/2016 [facility] Systolic (mm Hg) 146 09/24/2016 [facility] Diastolic (mm Hg) 79 09/24/2016 [facility] Respitory Rate 18 09/24/2016 [facility] Heart Rate 70 09/24/2016 [facility] BMI Calculated 29.48 09/22/2016 [facility] Weight 93.182 09/22/2016 [facility] Height 177.8 cm 09/22/2016 [facility] Weight 90.455 09/19/2016 [facility] BMI Calculated 28.61 09/19/2016 [facility] Height 177.8 cm 09/19/2016 [facility] Encounters Location Location Encounter Encounter Reason Attending ADM DC Status Source Details Type Number For Provider Date Date Visit Outpatient [id number] TJ ALICIA 07/20 [facility] [id number] Tj Alicia 07/20 07/21 [facility] Outpt Di[facility] [id number] Tj Alicia 08/11 08/12 [facility] [place] [facility] [id number] TJ ALICIA 08/17 [facility] [id number] TJ ALICIA 09/19 [facility] [id number] TJ ALICIA 09/19 [facility] [id number] TJ ALICIA 09/22 [facility] [id number] Tj Alicia 09/22 09/24 [facility] Outpatient [id number] [place] 10/07 [facility] [id number] TJ ALICIA 11/14 [facility] Phone [id number] 12/23 12/25 [facility] Message Neuro [facility] Phone [id number] 12/26 12/28 [facility] Message Neuro Outpatient [id number] TJ ALICIA 12/28 [facility] Outpatient [id number] Javi 12/28 12/29 [facility] 8 [facility] Outpt Diag [id number] Rufina 12/28 12/29 [facility] Phone [id number] 01/02 01/04 [facility] Message Neuro [facility] Sp[facility] Phone [id number] 01/03 01/05 [facility] Message Neuro [facility] Phone [id number] 01/16 01/18 [facility] Message Neuro Outpatient [id number] TJ ALICIA 02/13 [facility] Ambulatory [id number] Javi 02/13 02/13 [facility] Pre-Reg 7 [facility] Phone [id number] 03/15 03/17 [facility] Message Neuro [facility] [id number] [place] 05/27 05/29 [place] [facility] [place] [facility] Procedures Procedure Code Date Perfomer Comments Source Bladder 01043 05/29/2017 [facility] irrigation, simple, lavage and/or instillation Bladder 10246 05/28/2017 [place] irrigation, simple, lavage and/or instillation Bladder 94369 05/27/2017 [place] irrigation, simple, lavage and/or instillation Bladder operation [id number] [facility] [id number] Lymph [facility] [id number] [facility] Bladder operation [id number] [facility] [place] [facility] [id number] [facility] [place] Lymph node [id number] [facility] [place] Bladder operation [id number] [facility] [place] Drainage [id number] [facility] [place] Lymph node [id number] [facility] [place] Bladder operation [id number] [facility] Drainage [id number] [facility] Lymph node [id number] [facility] Bladder operation [id number] [facility] Drain[facility] [id number] [facility] Lymph node [id number] [facility] [place] [facility]hab Bladder operation [id number] [place] [facility] [id number] [place] Lymph node [id number] [place] operation
--- OUTSIDE RECORDS SUMMARY | 2017-09-03 00:19 | XMS REPORT | Summary of Care ---
:1945 Author Organization [facility] Address [address] [place] [address]- Encounter HQ Michael_anuj(FIN) [id number] Date(s): 12/28/16 - 12/28/16 [facility]ine [address] [place], [place] [address] [phone] Discharge Disposition: Home or Self Care Attending Physician: Tj Alicia MD Referring Physician: Javi Looney MD Vital Signs Most recent to oldest [Reference Range]: 1 Height 177.8 cm (12/28/16 12:56 PM) Temperature Oral [96.4-99.1 DegF] 97.8 DegF (12/28/16 12:56 PM) Blood Pressure [90-140/60-90 mmHg] 163/82 mmHg *HI* (12/28/16 12:56 PM) Peripheral Pulse Rate [60-100 bpm] 74 bpm (12/28/16 12:56 PM) Weight 90.909 kg (12/28/16 12:56 PM) Body Mass Index 28.76 m2 (12/28/16 12:56 PM) Problem List Condition Effective Dates Status Health Status Informant Stroke(Confirmed) Resolved Hematoma(Confirmed) Resolved HBP (high blood pressure)(Confirmed) Active Bladder cancer(Confirmed) Resolved Allergies, Adverse Reactions, Alerts Substance Reaction Severity Status NKDA Active Medications No Known Medications Results No data available for this section Immunizations No data available for this section Procedures Procedure Date Related Diagnosis Body Site Bladder operation Drainage Lymph node operation Social History Social History Type Response Alcohol Current, Frequency: 1-2 times per year. Smoking Status Current every day smoker; Type: Cigars; Lives with someone who smokes; Cigarette Smoking Last 365 Days Yes; Reg Smoking Cessation Counseling No Assessment and Plan No data available for this section
--- OUTSIDE RECORDS SUMMARY | 2017-09-03 00:19 | XMS REPORT | Summary of Care ---
:1945 Author Organization [facility] Address [address] [place] [phone]- Encounter HQ Encntr_alias(FIN) [id number] Date(s): 09/22/16 - 09/24/[address] Professional Services provided by [facility] [place] [address]- Discharge Disposition: Home or Self Care Attending Physician: Tj Alicia MD Admitting Physician: Tj Alicia MD Referring Physician: Tj Alicia MD Vital Signs Most recent to oldest 1 2 3 [Reference Range]: Height 177.8 cm 177.8 cm (09/22/16 10:39 AM) (09/19/16 3:20 PM) Temperature Oral [96.4-99.1 97.5 DegF 98.5 DegF 98.1 DegF DegF] (09/24/16 7:50 AM) (09/24/16 3:43 AM) (09/23/16 11:44 PM) Blood Pressure [90-140/60-90 176/83 mmHg 143/73 mmHg 146/79 mmHg mmHg] *HI* *HI* *HI* (09/24/16 7:50 AM) (09/24/16 3:43 AM) (09/23/16 11:44 PM) Respiratory Rate [14-20 18 BRMIN 17 BRMIN 18 BRMIN BRMIN] (09/24/16 7:50 AM) (09/24/16 3:43 AM) (09/23/16 11:44 PM) Peripheral Pulse Rate [60-100 89 bpm 84 bpm 70 bpm bpm] (09/24/16 7:50 AM) (09/24/16 3:43 AM) (09/23/16 11:44 PM) Weight 93.182 kg 90.455 kg (09/22/16 10:39 AM) (09/19/16 3:20 PM) Body Mass Index 29.48 m2 28.61 m2 (09/22/16 10:39 AM) (09/19/16 3:20 PM) Problem List Condition Effective Dates Status Health Status Informant Stroke(Confirmed) Resolved Hematoma(Confirmed) Resolved HBP (high blood pressure)(Confirmed) Active Bladder cancer(Confirmed) Resolved Allergies, Adverse Reactions, Alerts Substance Reaction Severity Status NKDA Active Medications ANES flumazenil 0.2 mg, 2 mL, Route: IVP, Drug form: INJ, PRN, Dosing Weight 93.182, kg, PRN Benzodiazepine Reversal, Initial dose, Start date: 09/22/16 16:37:00 CDT, Duration: 30 day, Stop date: 10/22/16 16:36:00 CDT Notes: (Same as: Romazicon) Start Date: 09/22/16 Stop Date: 09/22/16 Status: DiscontinuedANES hydrALAZINE 10 mg, 0.5 mL, Route: IVP, Drug form: INJ, Q20Min, Dosing Weight 93.182, kg, PRN Elevated BP, Start date: 09/22/16 16:37:00 CDT, Duration: 2 doses or times, Stop date: Limited # of times Notes: (Same as: Apresoline)Push over 5 minutes Start Date: 09/22/16 Stop Date: 09/22/16 Status: DiscontinuedANES HYDROmorphone 0.5 mg, 0.25 mL, Route: IVP, Drug form: INJ, Q5Min, Dosing Weight 93.182, kg, PRN Pain Score 7-10, Start date: 09/22/16 16:37:00 CDT, Duration: 4 doses or times, Stop date: Limited # of times Notes: Same as: Dilaudid Start Date: 09/22/16 Stop Date: 09/22/16 Status: CompletedANES naloxone 0.4 mg, 1 mL, Route: IVP, Drug form: INJ, Q2MIN, Dosing Weight 93.182, kg, PRN Narcotic Reversal, Start date: 09/22/16 16:37:00 CDT, Duration: 8 doses or times , Stop date: Limited # of times Notes: Same as Narcan Start Date: 09/22/16 Stop Date: 09/22/16 Status: DiscontinuedANES ondansetron 4 mg, 2 mL, Route: IVP, Drug form: INJ, ONCE, Dosing Weight 93.182, kg, PRN Nausea & Vomiting, Start date: 09/22/16 16:37:00 CDT Notes: (Same as: Zofran) MEDICATION WASTE Product Size: 4 mgProduct Wasted: ___ mg Start Date: 09/22/16 Stop Date: 09/22/16 Status: DiscontinuedANES oxyCODONE 5 mg, 1 tab, Route: PO, Drug form: TAB, Q4H, Dosing Weight 93.182, kg, PRN Pain Score 4-6, Start date: 09/22/16 16:37:00 CDT, Duration: 30 day, Stop date: 10/22 16:36:00 CDT Notes: (Same as: Roxicodone) Start Date: 09/22/16 Stop Date: 09/22/16 Status: DiscontinuedBenadryl 25 mg, 1 cap, Route: PO, Drug form: CAP, TID, Dosing Weight 93.182, kg, PRN Itching, Start date: 09/22/16 16:11:00 CDT, Duration: 30 day, Stop date: 16:10:00 CDT Notes: (Same as: Benadryl) Start Date: 09/22/16 Stop Date: 09/24/16 Status: Discontinuedbisacodyl 10 mg, 1 supp, Route: TX, Drug form: SUPP, Daily, Dosing Weight 93.182, kg, PRN Constipation, Start date: 09/22/16 16:11:00 CDT, Duration: 30 day, Stop date: 16:10:00 CDT Notes: (Same As: Dulcolax, [place]isco-Lax) Start Date: 09/22/16 Stop Date: 09/24/16 Status: DiscontinuedceFAZolin 2 gm, 100 mL, Route: IVPB, Drug form: INJ, PRE OP, Start date: 09/22/16 3:00:00 CDT, Duration: 1 day, Stop date: 09/23/16 2:59:00 CDT, ABX Indication: Surgical Prophylaxis Notes: Same as: Ancef Start Date: 09/22/16 Stop Date: 09/23/16 Status: CompletedceFAZolin (SCIP) + sodium chloride 0.9% INJ 100 mL 2 gm, Route: IV, Drug form: INJ, ABXQ8H, Dosing Weight 93.182, kg, Start date: 09/22/16 22:00:00 CDT, Duration: 24 hr, Stop date: 09/23/16 14:00:00 CDT, ABX Indication: Surgical Prophylaxis Notes: (Same As: Ancef, Janeen)Cefazolin FOR IV SET ONLY MEDICATION WASTE Product Size:1000 mgProduct Wasted: _0__ mg Start Date: 09/22/16 Stop Date: 09/23/16 Status: CompletedChloraseptic 1.4% spray 1 spray, Route: TOP, Daily, Drug form: SPRY, PRN Sore Throat, Start date: 16:11:00 CDT, Duration: 30 day, Stop date: 10/22/16 16:10:00 CDT Notes: Chloraseptic [place](Same as: Chloraseptic, Sore Throat [place])WASTE: F/P - Black; E - MunicipalTrash Bin Start Date: 09/22/16 Stop Date: 09/24/16 Status: DiscontinuedcloNIDine 0.1 mg oral tablet 0.1 mg, 1 tab, Route: PO, Drug form: TAB, BID, Dosing Weight 93.182, kg, Start date: 09/22/16 17:00:00 CDT, Duration: 30 day, Stop date: 10/22/16 9:00:00 CDT Notes: (Same As: Catapres) Start Date: 09/22/16 Stop Date: 09/24/16 Status: Discontinueddexamethasone 4 mg, 1 tab, Route: PO, Drug form: TAB, Q6H, Dosing Weight 93.182, kg, Start date: 09/22/16 18:00:00CDT, Duration: 30 day, Stop date: 10/22/16 12:00:00 CDT Notes: Give with food.(Same As: Decadron) Start Date: 09/22/16 Stop Date: 09/24/16 Status: DiscontinuedDilaudid 0.5 mg, 0.25 mL, Route: IVP, Drug form: INJ, Q3H, Dosing Weight 93.182, kg, PRN Pain Score 7-10, Start date: 09/22/16 16:11:00 CDT, Duration: 30 day, Stop date : 10/22/16 16:10:00 CDT Notes: Same as: Dilaudid Start Date: 09/22/16 Stop Date: 09/24/16 Status: Discontinueddiltiazem 360 mg, 1 cap, Route: PO, Drug form: ERCAP, ONCE, Dosing Weight 93.182, kg, Start date: 09/24/16 8:38:00 CDT, Stop date: 09/24/16 8:38:00 CDT Notes: DO NOT CRUSH. Start Date: 09/24/16 Stop Date: 09/24/16 Status: Completeddocusate 50 mg, 1 cap, Route: PO, Drug form: CAP, BID, Dosing Weight 93.182, kg, Start date: 09/22/16 17:00:00 CDT, Duration: 30 day, Stop date: 10/22/16 9:00:00 CDT, Pediatric Dosing Notes: (Same as: Colace) (Do Not Crush) Start Date: 09/22/16 Stop Date: 09/24/16 Status: Discontinuedfamotidine 20 mg oral tablet 20 mg=1 tab, PO, BID, # 20 tab, 0 Refill(s) Start Date: 09/23/16 Stop Date: 10/03/16 Status: Orderedfamotidine 20 mg oral tablet 20 mg, 1 tab, Route: PO, Drug form: TAB, BID, Dosing Weight 93.182, kg, Start date: 09/22/16 17:00:00 CDT, Duration: 30 day, Stop date: 10/22/16 9:00:00 CDT Notes: (Same as: Pepcid) Start Date: 09/22/16 Stop Date: 09/24/16 Status: DiscontinuedFlomax 0.4 mg, 1 cap, Route: PO, Drug form: CAP, Daily, Dosing Weight 93.182, kg, Start date: 09/23/16 1:28:00 CDT, Duration: 30 day, Stop date: 10/22/16 9:00:00 CDT Notes: (Same As: Flomax) "Do Not Crush" Start Date: 09/23/16 Stop Date: 09/24/16 Status: DiscontinuedhydrALAZINE 20 mg, 1 mL, Route: IVP, Drug form: INJ, Q4H, Dosing Weight 93.182, kg, PRN Hypertension, Start date: 09/22/16 16:11:00 CDT, Duration: 30 day, Stop date: 16:10:00 CDT Notes: (Same as: Apresoline)Push over 5 minutes Start Date: 09/22/16 Stop Date: 09/24/16 Status: Discontinuedlabetalol 10 mg, 2 mL, Route: IVP, Drug form: INJ, Q15Min, Dosing Weight 93.182, kg, PRN Hypertension, Start date: 09/22/16 16:11:00 CDT, Duration: 30 day, Stop date: 16:10:00 CDT Start Date: 09/22/16 Stop Date: 09/24/16 Status: Discontinuedlisinopril 40 mg, 2 tab, Route: PO, Drug form: TAB, Daily, Dosing Weight 93.182, kg, Start date: 09/23/16 9:00:00 CDT, Duration: 30 day, Stop date: 10/22/16 9:00:00 CDT Notes: (Same as: Prinivil, Zestril) Start Date: 09/23/16 Stop Date: 09/24/16 Status: Discontinuedmagnesium citrate 1.745 g/30 mL oral liquid 8.725 mp=866 ml, PO, Daily, X 2 day, # 300 mL, 0 Refill(s) Start Date: 09/23/16 Stop Date: 09/25/16 Status: CompletedMedrol Dosepak 4 mg oral tablet See Instructions, PO, Take by mouth as directed on label., # 1 Pack, 0 Refill(s) Start Date: 09/23/16 Stop Date: 09/29/16 Status: Orderedmelatonin 3 mg oral tablet 3 mg, 1 tab, Route: PO, Drug Form: TAB, Dosing Weight 93.182, kg, Bedtime, PRN as needed for insomnia, Start date: 09/22/16 16:11:00 CDT, Duration: 30 day, Stop date: 10/22/16 16:10:00 CDT Notes: (Same as: Melatonin) Start Date: 09/22/16 Stop Date: 09/24/16 Status: DiscontinuedNorco 10/325 oral tablet 1 tab, PO, Q6H, PRN for pain, X 14 day, # 90 tab, 0 Refill(s) Start Date: 09/23/16 Stop Date: 10/07/16 Status: OrderedNorco 10/325 oral tablet 1 tab, Route: PO, Drug Form: TAB, Dosing Weight 93.182, kg, Q4H, PRN Pain Score 1-3, Start date: 09/22/16 16:11:00 CDT, Duration: 30 day, Stop date: 10/22/16 16 :10:00 CDT Notes: Do not exceed 4gm/day of acetaminophen. (Same as: Oakley 325/10) Start Date: 09/22/16 Stop Date: 09/24/16 Status: DiscontinuedNorco 10/325 oral tablet 2 tab, Route: PO, Drug Form: TAB, Dosing Weight 93.182, kg, Q4H, PRN Pain Score 4-6, Start date: 09/22/16 16:11:00 CDT, Duration: 30 day, Stop date: 10/22/16 16 :10:00 CDT Notes: Do not exceed 4gm/day of acetaminophen. (Same as: Oakley 325/10) Start Date: 09/22/16 Stop Date: 09/24/16 Status: Discontinuedondansetron 4 mg, 2 mL, Route: IVP, Drug form: INJ, Q6H, Dosing Weight 93.182, kg, PRN Nausea & Vomiting, Start date: 09/22/16 16:11:00 CDT, Duration: 30 day, Stop date: 10/22/16 16:10:00 CDT, >/=4 years, Pediatric Dosing Notes: (Same as: Kt) MEDICATION WASTE Product Size: 4 mgProduct Wasted: ___ mg Start Date: 09/22/16 Stop Date: 09/24/16 Status: DiscontinuedRobaxin 500 mg, 1 tab, Route: PO, Drug form: TAB, TID, Dosing Weight 93.182, kg, PRN Spasm, Start date: 09/22/16 16:11:00 CDT, Duration: 30 day, Stop date: 10/22/16 16:10:00 CDT Notes: (Same as:Robaxin) Start Date: 09/22/16 Stop Date: 09/24/16 Status: DiscontinuedRobaxin 500 mg oral tablet 500 mg=1 tab, PO, Q8H, PRN Spasms, X 10 day, # 30 tab, 0 Refill(s) Start Date: 09/23/16 Stop Date: 10/03/16 Status: OrderedSaline Flush 0.9% 10 ml, Route: IVP, Drug Form: INJ, Dosing Weight 93.182, kg, PRN, PRN Line Flush , Start date: 09/22/16 16:11:00 CDT, Duration: 30 day, Stop date: 10/22/16 16:10 :00 CDT Notes: (Same as: BD Posiflush) Start Date: 09/22/16 Stop Date: 09/24/16 Status: DiscontinuedSaline Flush 0.9% 10 ml, Route: IVP, Drug Form: INJ, Dosing Weight 93.182, kg, Q12H, Start date: 09/22/16 21:00:00 CDT, Duration: 30 day, Stop date: 10/22/16 9:00:00 CDT Notes: (Same as: BD Posiflush) Start Date: 09/22/16 Stop Date: 09/24/16 Status: Discontinuedsenna 8.6 mg, 1 tab, Route: PO, Drug Form: TAB, Dosing Weight 93.182, kg, BID, Start date: 09/22/16 17:00:00 CDT, Duration: 30 day, Stop date: 10/22/16 9:00:00 CDT Notes: (Same as: Senokot) Start Date: 09/22/16 Stop Date: 09/24/16 Status: Discontinued Results ELECTROLYTES Most recent to oldest [Reference Range]: 1 Sodium Lvl [135-145 mEq/L] 144 mEq/L 1 (09/19/16 3:35 PM) Potassium Lvl [3.5-5.1 mEq/L] 3.8 mEq/L 2 (09/19/16 3:35 PM) Chloride Lvl [95-109 mEq/L] 105 mEq/L 3 (09/19/16 3:35 PM) CO2 [24-32 mEq/L] 27 mEq/L 4 (09/19/16 3:35 PM) AGAP [10.0-20.0 mEq/L] 15.8 mEq/L 5 (09/19/16 3:35 PM) 1Result Comment: Collection date/time has been modified to: 15:35:00. Previous collection date/time: 16:41:00.2Result Comment: Collection date/time has been modified to: 15:35:00. Previous collection date/ time: 16:41:00.3Result Comment: Collection date/time has been modified to: 15:35:00. Previous collection date/time: 16:41 :00.4Result Comment: Collection date/time has been modified to: 15:35: 00. Previous collection date/time: 16:41:00.5Result Comment: Collection date/time has been modified to: 15:35:00. Previous collection date/time: 16:41:00.CHEM PANEL Most recent to oldest [Reference Range]: 1 Creatinine Lvl [0.50-1.40 mg/dL] 1.31 mg/dL 1 (09/19/16 3:35 PM) eGFR 54 mL/min/1.73m2 2 *NA* (09/19/16 3:35 PM) BUN [7-22 mg/dL] 18 mg/dL 3 (09/19/16 3:35 PM) Glucose Lvl [70-99 mg/dL] 91 mg/dL 4 (09/19/16 3:35 PM) Calcium Lvl [8.5-10.5 mg/dL] 9.9 mg/dL 5 (09/19/16 3:35 PM) 1Result Comment: Collection date/time has been modified to: 15:35:00. Previous collection date/time: 16:41:00.2Result Comment: The eGFR is calculated using the CKD-EPI formula. In most young, healthy individualsthe eGFR will be >90 mL/min/1.73m2. The eGFR declines with age. An eGFR of 60-89 may be normal in some populations, particularly the elderly, for whom the CKD- EPI formula has not been extensively validated. Use of the eGFR is not recommended in the following populations: Individuals with unstable creatinine concentrations, including patients and those with serious co-morbid conditions. Patients with extremes in muscle mass or diet. The data above are obtained from the National Kidney Disease Education Program ( NKDEP) which additionally recommends that when the eGFR is used in patients with extremes of body mass index for purposesof drug dosing, the eGFR should be multiplied by the estimated BMI. Collection date/time has been modified to: 15:35:00. Previous collection date/time: 16:41:00.3Result Comment: Collection date/time has been modified to: 15:35:00. Previous collection date/time: 16:41:00.4Result Comment: Collection date/time has been modified to: 15:35:00. Previous collection date/ time: 16:41:00.5Result Comment: Collection date/time has been modified to: 15:35:00. Previous collection date/time: 16:41 :00. Immunizations No data available for this section [...]
--- OUTSIDE RECORDS SUMMARY | 2017-09-03 00:19 | XMS REPORT | Summary of Care ---
:1945 Author Organization [facility] Outpatient Imaging [place] Address [facility] [place], [place] [address]- Encounter HQ Encntr_alias(FIN) [id number] Date(s): 08/11/16 - 08/11/16 [facility] Outpatient Imaging [address], [address] [place] [phone] Discharge Disposition: Home or Self Care Attending Physician: Tj Alicia MD Vital Signs No data available for this section Problem List Condition Effective Dates Status Health Status Informant Stroke(Confirmed) Resolved Hematoma(Confirmed) Resolved HBP (high blood pressure)(Confirmed) Active Bladder cancer(Confirmed) Resolved Allergies, Adverse Reactions, Alerts Substance Reaction Severity Status NKDA Active Medications No data available for this section Results No data available for this section Immunizations No data available for this section Procedures Procedure Date Related Diagnosis Body Site Bladder operation Drainage Lymph node operation Social History Social History Type Response Smoking Status Current every day smoker; Lives with someone who smokes; Cigarette Smoking Last 365 Days Yes; Reg Smoking Cessation Counseling No Assessment and Plan No data available for this section
--- OUTSIDE RECORDS SUMMARY | 2017-09-03 00:19 | XMS REPORT | Summary of Care ---
:1945 Demographics Preferred Language Unknown Marital Status Unknown Mormonism Affiliation Unknown Race Other Ethnic Group Not or Author Organization [facility] Outpatient [facility] [place] Address [address] [place], [place] [address]- Encounter HQ Encntr_alias(FIN) [id number] Date(s): 07/20/16 - 07/20/16 [facility] Outpatient [facility] [place] [address] [place] [address]- [phone] Discharge Disposition: Home or Self Care Attending [...]
--- OUTSIDE RECORDS SUMMARY | 2017-09-03 00:20 | XMS REPORT | Summary of Care ---
:1945 Author Organization [facility] Spine [facility] Address [address] [place] [address]- Encounter HQ Encntr_alias(FIN) [id number] Date(s): 03/15/17 - 03/16/17 [facility] Spine [address] [address] [phone] Vital Signs No data available for this [...] Procedures Procedure Date Related Diagnosis Body Site Status Bladder operation Completed Drainage Completed Lymph node operation Completed Social History Social History Type Response Alcohol Current, Frequency: 1-2 times per year. Smoking Status Former smoker; Type: Cigars; Lives with someone who smokes; Cigarette Smoking Last 365 Days Yes; Reg Smoking Cessation Counseling No entered on: 05/27/17 Assessment and Plan No data available for this section
--- OUTSIDE RECORDS SUMMARY | 2017-09-03 00:20 | XMS REPORT | Summary of Care ---
:1945 Author Organization [facility] Outpatient [facility] Encounter HQ Michael_anuj(FIN) [id number] Date(s): 12/28/16 - 12/28/16 [facility] Outpatient [facility] [address] [facility] [address] [place] [address] [phone] Discharge Disposition: Home or Self Care Attending Physician: Rufina Askew NP Vital Signs No data available for this [...]
--- OUTSIDE RECORDS SUMMARY | 2017-09-03 00:20 | XMS REPORT | Summary of Care ---
:1945 Author Organization [facility] Spine [facility] Address [address] [place] [address]- Encounter HQ Encntr_alias(FIN) [id number] Date(s): 12/26/16 - 12/27/16 [facility] Spine [address] [place] [address] [phone] Vital Signs No data available for this [...]
--- OUTSIDE RECORDS SUMMARY | 2017-09-03 00:20 | XMS REPORT | Summary of Care ---
:1945 Author Organization [facility] Spine [facility] Address [address] [place] [address], [facility] [address] [place] [address]- Encounter HQ Encntr_alias(FIN) [id number] Date(s): 12/23/16 - 12/24/16 [facility] Spine [address] [place], [place] [address] [phone] Vital Signs No data available for this [...]
--- OUTSIDE RECORDS SUMMARY | 2017-09-03 00:20 | XMS REPORT | Summary of Care ---
:1945 Author Organization [facility] Address [address], [place] [address]- Encounter HQ Encntr_alias(FIN) [id number] Date(s): 05/26/17 - 05/29/17 [facility] [address] [place] [address]- Encounter Diagnosis Urinary obstruction (Discharge Diagnosis) - 05/26/17 Hematuria (Discharge Diagnosis) - 05/26/17 Discharge Disposition: Home or Self Care Attending Physician: Chata Carlson MD Admitting Physician: Chata Carlson MD Vital Signs Most recent to oldest 1 2 3 [Reference Range]: Height 177.8 cm (05/27/17 3:46 AM) Temperature Oral [96.4-99.1 97.8 DegF 97.4 DegF 98 DegF DegF] (05/29/17 11:49 AM) (05/29/17 8:20 AM) (05/29/17 3:34 AM) Blood Pressure [90-140/60-90 145/83 mmHg 156/86 mmHg 158/69 mmHg mmHg] *HI* *HI* *HI* (05/29/17 11:49 AM) (05/29/17 8:20 AM) (05/29/17 3:34 AM) Respiratory Rate [14-20 BRMIN] 18 BRMIN 18 BRMIN 18 BRMIN (05/29/17 11:49 AM) (05/29/17 8:20 AM) (05/29/17 3:34 AM) Peripheral Pulse Rate [60-100 63 bpm 64 bpm 59 bpm bpm] (05/29/17 11:49 AM) (05/29/17 8:20 AM) *LOW* (05/29/17 3:34 AM) Weight 86.364 kg 89.545 kg (05/27/17 3:46 AM) (05/26/17 7:09 PM) Body Mass Index 27.32 m2 (05/27/17 3:46 AM) Problem List Condition Effective Dates Status Health Status Informant Stroke(Confirmed) Resolved Hematoma(Confirmed) Resolved HBP (high blood pressure)(Confirmed) Active Bladder cancer(Confirmed) Resolved Allergies, Adverse Reactions, Alerts Substance Reaction Severity Status NKDA Active Medications acetaminophen 650 mg, 2 tab, Route: PO, Drug form: TAB, Q4H, Dosing Weight 89.545, kg, PRN Pain 1-3/Temp > 100.4 F, Start date: 05/27/17 2:05:00 CDT, Duration: 30 day, Stop date: 06/26/17 2:04:00 CDT Notes: Do not exceed 4 gm/day. (Same as: Tylenol) Start Date: 05/27/17 Stop Date: 05/29/17 Status: Discontinuedacetaminophen-hydrocodone 325 mg-5 mg oral tablet 1 tab, Route: PO, Drug Form: TAB, Dosing Weight 89.545, kg, Q4H, PRN Pain Score 4-6, Start date: 05/27/17 2:05:00 CDT, Duration: 30 day, Stop date: 06/26/17 2: 04:00 CDT Notes: (Same as: Kennard 325/5) Do not exceed 4gm/day of acetaminophen. Start Date: 05/27/17 Stop Date: 05/29/17 Status: Discontinuedaspirin 81 mg, 0 Refill(s) Start Date: 05/28/17 Stop Date: 05/29/17 Status: DiscontinuedBystolic 10 mg, 2 tab, Route: PO, Drug form: TAB, Daily, Dosing Weight 86.364, kg, Start date: 05/28/17 9:00:00 CDT, Duration: 30 day, Stop date: 06/26/17 9:00:00 CDT Notes: (same as: Bystolic) Start Date: 05/28/17 Stop Date: 05/29/17 Status: DiscontinuedBystolic 10 mg oral tablet 10 mg=1 tab, PO, Daily, 0 Refill(s) Start Date: 05/28/17 Status: OrderedCartia XT 240 mg/24 hours oral capsule, extended release 240 mg=1 cap, PO, Daily, 0 Refill(s) Start Date: 05/28/17 Status: OrderedCataflam 50 mg=1 tab, PO, TID, PRN pain, # 30 tab, 0 Refill(s) Start Date: 05/27/17 Stop Date: 05/27/17 Status: DiscontinuedCipro 500 mg, 2 tab, Route: PO, Drug form: TAB, [id number], Dosing Weight 86.364, kg, Start date: 05/29/17 9:00:00 CDT, Duration: 5 day, Stop date: 06/02/17 21:00:00 CDT, ABX Indication: Other (specify in Comments) Notes: May interfere w/enteral feedings - Take 1 hr before or 2 hrs after antacids, dairy pdt &minerals. On empty stomach. Start Date: 05/29/17 Stop Date: 05/29/17 Status: Discontinuedciprofloxacin 500 mg oral tablet 500 mg=1 tab, PO, Q12H, X 7 day, # 14 tab, 0 Refill(s), Pharmacy: [facility] [id number] Start Date: 05/29/17 Stop Date: 06/05/17 Status: OrderedcloNIDine 0.1 mg oral tablet 0.1 mg, 1 tab, Route: PO, Drug form: TAB, BID, Dosing Weight 89.545, kg, Start date: 05/27/17 9:00:00 CDT, Duration: 30 day, Stop date: 06/25/17 17:00:00 CDT Notes: (Same As: Catapres) Start Date: 05/27/17 Stop Date: 05/27/17 Status: DiscontinuedCrestor 10 mg, 1 tab, Route: PO, Drug form: TAB, Bedtime, Dosing Weight 89.545, kg, Start date: 05/27/17 21:00:00 CDT, Duration: 30 day, Stop date: 06/25/17 21:00: 00 CDT Notes: (Same As: Crestor) Start Date: 05/27/17 Stop Date: 05/29/17 Status: DiscontinuedDiltiazem Hydrochloride ER 240 mg, 2 cap, Route: PO, Drug form: ERCAP, Daily, Dosing Weight 86.364, kg, Start date: 05/28/17 16:00:00 CDT, Duration: 30 day, Stop date: 06/27/17 9:00: 00 CDT Notes: (Same as: Cardizem CD) Do Not Crush Before meals. Start Date: 05/28/17 Stop Date: 05/29/17 Status: Discontinueddocusate 100 mg, 1 cap, Route: PO, Drug form: CAP, BID, Dosing Weight 89.545, kg, Start date: 05/27/17 9:00:00 CDT, Duration: 30 day, Stop date: 06/25/17 17:00:00 CDT Notes: (Same as: Colace) (Do Not Crush) Start Date: 05/27/17 Stop Date: 05/29/17 Status: Discontinueddocusate-senna 50 mg-8.6 mg oral tablet 1 tab, PO, BID, X 14 day, # 28 tab, 0 Refill(s), Pharmacy: [facility] [id number] Start Date: 05/29/17 Stop Date: 06/12/17 Status: Ordereddocusate-senna 50 mg-8.6 mg oral tablet 1 tab, Route: PO, Drug Form: TAB, Dosing Weight 86.364, kg, BID, Start date: 17:00:00 CDT, Duration: 30 day, Stop date: 06/28/17 9:00:00 CDT Notes: (Same as Senokot-S) Equiv. to Rachelle-Colace. Start Date: 05/29/17 Stop Date: 05/29/17 Status: CanceledhydrALAZINE 10 mg, 0.5 mL, Route: IVP, Drug form: INJ, Q6H, Dosing Weight 86.364, kg, PRN Hypertension, for BP systolic >180, Start date: 05/27/17 4:19:00 CDT, Duration: 30 day, Stop date: 06/26/17 4:18:00 CDT Notes: (Same as: Apresoline)Push over 5 minutes Start Date: 05/27/17 Stop Date: 05/29/17 Status: DiscontinuedIrrigation w/ Normal Saline 3,000 mL, Route: INTRAVESICULAR, Drug Form: SOLN, Dosing Weight 89.545, kg, ONCE , STAT, Start date: 05/26/17 23:45:00 CDT, Stop date: 05/26/17 23:45:00 CDT Notes: For irrigation only. Start Date: 05/26/17 Stop Date: 05/26/17 Status: CompletedIrrigation w/ Normal Saline 3,000 mL, Route: INTRAVESICULAR, Drug Form: SOLN, Dosing Weight 89.545, kg, Continuous, Start date: 05/27/17 2:00:00 CDT, Duration: 30 day, Stop date: 06/26 1:59:00 CDT Notes: For irrigation only. Start Date: 05/27/17 Stop Date: 05/27/17 Status: DeletedIrrigation w/ Normal Saline 3,000 mL, Route: Intravesical, Drug Form: SOLN, Dosing Weight 89.545, kg, ONCE, Start date: 180:58:00 CDT, Stop date: 05/27/17 0:58:00 CDT Notes: For irrigation only. Start Date: 05/27/17 Stop Date: 05/27/17 Status: Completedlisinopril 40 mg, 2 tab, Route: PO, Drug form: TAB, Daily, Dosing Weight 89.545, kg, Start date: 05/27/17 9:00:00 CDT, Duration: 30 day, Stop date: 06/25/17 9:00:00 CDT Notes: (Same as: Prinivil, Zestril) Start Date: 05/27/17 Stop Date: 05/29/17 Status: Discontinuedmorphine Sulfate 2 mg, 1 mL, Route: IVP, Drug form: INJ, Q4H, Dosing Weight 89.545, kg, PRN Pain Score 7-10, Start date: 05/27/17 2:05:00 CDT, Duration: 30 day, Stop date: 06/26 2:04:00 CDT Notes: (Same as:MORPhine Sulfate) Start Date: 05/27/17 Stop Date: 05/29/17 Status: Discontinuedmorphine Sulfate 4 mg, Route: IVP, ONCE, Dosing Weight 89.545, kg, Priority: STAT, Start date: 19:36:00 CDT,Stop date: 05/26/17 19:36:00 CDT Start Date: 05/26/17 Stop Date: 05/26/17 Status: Completedmorphine Sulfate 4 mg, Route: IVP, ONCE, Dosing Weight 89.545, kg, Priority: STAT, Start date: 20:16:00 CDT,Stop date: 05/26/17 20:16:00 CDT Start Date: 05/26/17 Stop Date: 05/26/17 Status: CompletedNorco 5/325 oral tablet 2 tab, Route: PO, Drug Form: TAB, Dosing Weight 89.545, kg, ONCE, STAT, Start date: 05/26/17 20:45:00 CDT, Stop date: 05/26/17 20:45:00 CDT Start Date: 05/26/17 Stop Date: 05/26/17 Status: CompletedNormal Saline for Irrigation 3,000 mL, Route: INTRAVESICULAR, Drug Form: SOLN, Dosing Weight 89.545, kg, Continuous, Start date: 05/28/17 21:30:00 CDT, Duration: 30 day, Stop date: 21:29:00 CDT Notes: For irrigation only. Start Date: 05/28/17 Stop Date: 05/28/17 Status: CompletedNormal Saline for Irrigation 3,000 mL, Route: Intravesical, Drug Form: SOLN, Dosing Weight 89.545, kg, Continuous, Start date: 05/27/17 2:00:00 CDT, Duration: 30 day, Stop date: 06/26 1:59:00 CDT Notes: For irrigation only. Start Date: 05/27/17 Stop Date: 05/27/17 Status: CompletedNormal Saline for Irrigation 3,000 mL, Route: INTRAVESICULAR, Drug Form: SOLN, Dosing Weight 89.545, kg, Continuous, Start date: 05/27/17 2:00:00 CDT, Duration: 30 day, Stop date: 06/26 1:59:00 CDT Notes: For irrigation only. Start Date: 05/27/17 Stop Date: 05/28/17 Status: CompletedNormal Saline for Irrigation 3,000 mL, Route: Intravesical, Dosing Weight 89.545, kg, Continuous, Start date : 05/27/17 2:00:00 CDT, Duration: 30 day, Stop date: 06/26/17 1:59:00 CDT Start Date: 05/27/17 Stop Date: 05/27/17 Status: DeletedNS for Irrigation 3,000 mL, 6000 ml/hr, Route: IRRIG, Drug Form: SOLN, Dosing Weight 86.364, kg, Continuous, PRN See Nurse's Notes, Start date: 05/28/17 21:22:00 CDT, Duration: 30 day, Stop date: 06/27/17 21:21:00 CDT Notes: For irrigation only. Start Date: 05/28/17 Stop Date: 05/29/17 Status: Discontinuedondansetron 4 mg, 2 mL, Route: IVP, Drug form: INJ, Q6H, Dosing Weight 89.545, kg, PRN Nausea & Vomiting, Start date: 05/27/17 2:05:00 CDT, Duration: 30 day, Stop date: 06/26/17 2:04:00 CDT Notes: (Same as: Zofran) MEDICATION WASTE Product Size: 4 mgProduct Wasted: ___ mg Start Date: 05/27/17 Stop Date: 05/29/17 Status: DiscontinuedPlavix 75 mg oral tablet 75 mg=1 tab, PO, Daily, 0 Refill(s) Start Date: 05/28/17 Stop Date: 05/29/17 Status: DiscontinuedPyridium 100 mg oral tablet 100 mg=1 tab, PO, TID, PRN Dysuria, X 2 day, # 6 tab, 0 Refill(s) Start Date: 05/26/17 Stop Date: 05/28/17 Status: CompletedSaline Flush 0.9% 10 mL, Route: IVP, Drug Form: INJ, Dosing Weight 89.545, kg, PRN, PRN Line Flush , Start date: 05/26/17 23:12:00 CDT, Duration: 30 day, Stop date: 06/25/17 23:11 :00 CDT Notes: (Same as: BD Posiflush) Start Date: 05/26/17 Stop Date: 05/29/17 Status: DiscontinuedSodium Chloride 0.9% (titrate) 250 mL 250 mL, Rate: To prime line and flush remaining blood products., Dosing Weight 89.545, kg, Route: IV, Total Volume: 250, Start Date: 05/27/17 1:25:00 CDT, Duration: 30 day, Stop date: 06/26/17 1:24:00 CDT, Replace Every: 24 hr Start Date: 05/27/17 Stop Date: 05/29/17 Status: DiscontinuedTylenol with Codeine #4 oral tablet 1 - 2 tab, PO, Q4H, PRN Pain, X 2 day, # 12 tab, 0 Refill(s) Start Date: 05/26/17 Stop Date: 05/28/17 Status: Completed Results BLOOD BANK RESULTS Most recent to oldest [Reference Range]: 1 2 3 ABO/Rh A POS *Unknown* (05/27/17 1:34 AM) Antibody Scrn Negative (05/27/17 1:34 AM) Platelet product Product available (05/27/17 1:25 AM) ELECTROLYTES Most recent to oldest [Reference Range]: 1 2 3 Sodium Lvl [135-145 mEq/L] 142 mEq/L 141 mEq/L (05/27/17 8:34 AM) (05/26/17 11:22 PM) Potassium Lvl [3.5-5.1 mEq/L] 3.8 mEq/L 3.5 mEq/L (05/27/17 8:34 AM) (05/26/17 11:22 PM) Chloride Lvl [95-109 mEq/L] 107 mEq/L 107 mEq/L (05/27/17 8:34 AM) (05/26/17 11:22 PM) CO2 [24-32 mEq/L] 24 mEq/L 25 mEq/L (05/27/17 8:34 AM) (05/26/17 11:22 PM) AGAP [10.0-20.0 mEq/L] 14.8 mEq/L 12.5 mEq/L (05/27/17 8:34 AM) (05/26/17 11:22 PM) CHEM PANEL Most recent to oldest [Reference Range]: 1 2 3 Creatinine Lvl [0.50-1.40 mg/dL] 1.08 mg/dL 1.41 mg/dL (05/27/17 8:34 AM) *HI* (05/26/17 11:22 PM) eGFR 68 mL/min/1.73m2 1 49 mL/min/1.73m2 2 *NA* *NA* (05/27/17 8:34 AM) (05/26/17 11:22 PM) BUN [7-22 mg/dL] 20 mg/dL 25 mg/dL (05/27/17 8:34 AM) *HI* (05/26/17 11:22 PM) Glucose Lvl [70-99 mg/dL] 119 mg/dL 150 mg/dL *HI* *HI* (05/27/17 8:34 AM) (05/26/17 11:22 PM) Calcium Lvl [8.5-10.5 mg/dL] 8.7 mg/dL 9.1 mg/dL (05/27/17 8:34 AM) (05/26/17 11:22 PM) 1Result Comment: The eGFR is calculated using the CKD-EPI formula. In most young , healthy individualsthe eGFR will be >90 mL/min/1.73m2. The eGFR declines with age. An eGFR of 60-89 may be normal insome populations, particularly the elderly, for whom the [...] eGFR should be multiplied by the estimated BMI.2Result Comment: The eGFR is calculated using the CKD-EPI formula. In most young, healthy individualsthe eGFR will be >90 mL/min/1.73m2. The eGFR declines with age. An eGFR of 60-89 may be normal insome populations, particularly the elderly, for whom the [...] eGFR should be multiplied by the estimated BMI.HEMATOLOGY Most recent to oldest 1 2 3 [Reference Range]: WBC [3.7-10.4 K/CMM] 51.5 K/CMM 1 51.0 K/CMM 2 56.8 K/CMM 3 *CRIT* *CRIT* *CRIT* (05/29/17 5:07 AM) (05/28/17 5:41 AM) (05/27/17 8:34 AM) RBC [4.70-6.10 M/CMM] 4.00 M/CMM 4.13 M/CMM 4.31 M/CMM *LOW* *LOW* *LOW* (05/29/17 5:07 AM) (05/28/17 5:41 AM) (05/27/17 8:34 AM) Hgb [14.0-18.0 g/dL] 11.3 g/dL 11.4 g/dL 12.4 g/dL *LOW* *LOW* *LOW* (05/29/17 5:07 AM) (05/28/17 5:41 AM) (05/27/17 8:34 AM) Hct [42.0-54.0 %] 35.0 % 35.5 % 37.4 % *LOW* *LOW* *LOW* (05/29/17 5:07 AM) (05/28/17 5:41 AM) (05/27/17 8:34 AM) MCV [80.0-94.0 fL] 87.5 fL 86.2 fL 86.8 fL (05/29/17 5:07 AM) (05/28/17 5:41 AM) (05/27/17 8:34 AM) MCH [27.0-31.0 pg] 28.2 pg 27.8 pg 28.7 pg (05/29/17 5:07 AM) (05/28/17 5:41 AM) (05/27/17 8:34 AM) MCHC [32.0-36.0 g/dL] 32.2 g/dL 32.2 g/dL 33.0 g/dL (05/29/17 5:07 AM) (05/28/17 5:41 AM) (05/27/17 8:34 AM) RDW [11.5-14.5 %] 16.8 % 16.4 % 16.4 % *HI* *HI* *HI* (05/29/17 5:07 AM) (05/28/17 5:41 AM) (05/27/17 8:34 AM) MPV [7.4-10.4 fL] 8.6 fL 8.2 fL 8.5 fL (05/29/17 5:07 AM) (05/28/17 5:41 AM) (05/27/17 8:34 AM) Platelet [133-450 K/CMM] 222 K/CMM 225 K/CMM 213 K/CMM (05/29/17 5:07 AM) (05/28/17 5:41 AM) (05/27/17 8:34 AM) Segs [45.0-75.0 %] 18.1 % 13.0 % 19.3 % *LOW* *LOW* *LOW* (05/29/17 5:07 AM) (05/28/17 5:41 AM) (05/27/17 8:34 AM) Bands [0.0-11.0 %] 0.0 % 0.0 % (05/28/17 5:41 AM) (05/26/17 11:22 PM) Lymphocytes [20.0-40.0 %] 77.1 % 82.0 % 78.6 % *HI* *HI* *HI* (05/29/17 5:07 AM) (05/28/17 5:41 AM) (05/27/17 8:34 AM) Atypical Lymphs [<=0.0 %] 2.0 % 0.0 % *HI* (05/26/17 11:22 PM) (05/28/17 5:41 AM) Monocytes [2.0-12.0 %] 3.5 % 2.0 % 1.3 % (05/29/17 5:07 AM) (05/28/17 5:41 AM) *LOW* (05/27/17 8:34 AM) Eosinophils [0.0-4.0 %] 1.0 % 1.0 % 0.3 % (05/29/17 5:07 AM) (05/28/17 5:41 AM) (05/27/17 8:34 AM) Basophils [0.0-1.0 %] 0.3 % 0.5 % (05/29/17 5:07 AM) (05/27/17 8:34 AM) Segs-Bands # [1.5-8.1 9.3 K/CMM 6.6 K/CMM 10.9 K/CMM K/CMM] *HI* (05/28/17 5:41 AM) *HI* (05/29/17 5:07 AM) (05/27/17 8:34 AM) Lymphocytes # [1.0-5.5 39.7 K/CMM 42.8 K/CMM 44.6 K/CMM K/CMM] *HI* *HI* *HI* (05/29/17 5:07 AM) (05/28/17 5:41 AM) (05/27/17 8:34 AM) Monocytes # [0.0-0.8 K/CMM] 1.8 K/CMM 1.0 K/CMM 0.8 K/CMM *HI* *HI* (05/27/17 8:34 AM) (05/29/17 5:07 AM) (05/28/17 5:41 AM) Eosinophils # [0.0-0.5 0.5 K/CMM 0.5 K/CMM 0.2 K/CMM K/CMM] (05/29/17 5:07 AM) (05/28/17 5:41 AM) (05/27/17 8:34 AM) Basophils # [0.0-0.2 K/CMM] 0.1 K/CMM 0.3 K/CMM (05/29/17 5:07 AM) *HI* (05/27/17 8:34 AM) Tot Cell Ct 100 100 *NA* *NA* (05/28/17 5:41 AM) (05/26/17 11:22 PM) RBC Morph Normal (05/26/17 11:22 PM) Anisocyte [None Seen] 1+ 1+ *ABN* *ABN* (05/28/17 5:41 AM) (05/27/17 8:34 AM) Hypochrom [None Seen] 1+ (05/28/17 5:41 AM) Microcyte [None Seen] 1+ *ABN* (05/28/17 5:41 AM) Smudge [None Seen] Moderate *ABN* (05/28/17 5:41 AM) Smudge Few Few *NA* *Unknown* (05/27/17 8:34 AM) (05/26/17 11:22 PM) Plt Morph Normal Normal (05/27/17 8:34 AM) (05/26/17 11:22 PM) Large Plt Slight *Unknown* (05/26/17 11:22 PM) PT [12.0-14.7 seconds] 14.5 seconds (05/26/17 11:22 PM) INR [0.85-1.17] 1.13 (05/26/17 11:22 PM) PTT [22.9-35.8 seconds] 33.1 seconds (05/26/17 11:22 PM) 1Result Comment: Critical Result(s) called to Zoran Ortiz at 05/29/2017 05:34 by FLOR. Read back OK.2Result Comment: Critical Result(s) called to HANDY Garcia at 05/28/2017 05:59 by MUNA. Read back OK.3Result Comment: Critical Result(s) called to Nadeem Ayala Rn at 05/27/2017 08:53 by Bry. Readback OK. Immunizations No data available for this section Procedures Procedure Date Related Diagnosis Body Site Status Bladder irrigation, simple, lavage 05/29/17 Completed and/or instillation Bladder irrigation, simple, lavage 05/28/17 Completed and/or instillation Bladder irrigation, simple, lavage 05/27/17 Completed and/or instillation Bladder operation Completed Drainage Completed Lymph node operation Completed Social History Social History Type Response Alcohol Current, Frequency: 1-2 times per year. Smoking Status Former smoker; Type: Cigars; Lives with someone who smokes; Cigarette Smoking Last 365 Days Yes; Reg Smoking Cessation Counseling No entered on: 05/27/17 Assessment and Plan Extracted from: Title: Progress Note * Author: Colton Angel MD Date: 05/29/17 Impression and Plan Gross hematuria with clot retention after urodynamics at [facility]. Patient has been on aspirin and Plavix, but this was stopped on Monday. His urine appears much better today after evac uating some old appearing clot. His H&H is completely stable. As long as his urine remains relatively clear off CBI, would recommend sending home and following up with his primary urologist in the next several days. He will need a voiding trial and can restart aspirin and Plavix as long as his urine remains clear. I will check on him a little later today and reassess. Extracted from: Title: Urology consult Author: Colton Angel MD Date: 05/27/17 Impression and Plan Gross hematuria after urodynamics at [facility]. Patient was on aspirin and Plavix at that time, and likely had traumatic bleeding. His H&H is relatively stable, and I evacuate d a large amount of clot at this point. I have reordered a second ultrasound to assess for persistent clot. Should his clot burden be significantly improved , we will continue bladder irrigation and mccray nd irrigation through the day and reassess tomorrow. Should he have a persistent large clot, he may require cystoscopy with clot evacuation in the operating room. I splinted the patient and his t hat we will need to wait for his aspirin Plavix to wear off in order for all of his his hematuria to resolve. Thank you for allowing me to participate in this patient's care. I will follow this patient with you during his hospitalization.
--- OUTSIDE RECORDS SUMMARY | 2017-09-03 00:20 | XMS REPORT | Summary of Care ---
:1945 Author Organization [facility] Spine [facility] Address [address] [place] [address] [address] [place] [address]- Encounter HQ Encntr_aliricardo(FIN) [id number] Date(s): 02/13/17 - 02/13/17 [facility] Spine [address] [place], [place] [address] [phone] Attending Physician: Tj Alicia MD Referring Physician: Javi Looney MD Vital Signs No data available for [...]
--- OUTSIDE RECORDS SUMMARY | 2017-09-03 00:20 | XMS REPORT | Summary of Care ---
:1945 Author Organization [facility] Spine [facility] Address [address] [place] [address] [address] [place] [address]- Encounter HQ Encntr_alias(FIN) [id number] Date(s): 01/02/17 - 01/03/17 [facility] Spine [address] [place], [place] [address] [phone] Vital Signs No data available for this [...]
--- OUTSIDE RECORDS SUMMARY | 2017-09-03 00:20 | XMS REPORT | Summary of Care ---
:1945 Author Organization [facility] Spine [facility] Address [address] [place] [address], [facility] [address] [place] [address]- Encounter HQ Encntr_alias(FIN) [id number] Date(s): 01/03/17 - 01/04/17 [facility] Spine [address] [place], [place] [address] [phone] Vital Signs No data available for this [...]
--- OUTSIDE RECORDS SUMMARY | 2017-09-03 00:20 | XMS REPORT | Summary of Care ---
:1945 Author Organization [facility] Spine [facility] Address [address] [place] [address] [address] [place] [address]- Encounter HQ Petrantr_anuj(FIN) [id number] Date(s): 02/13/17 - 02/13/17 [facility] Spine [address] [place], [place] [address] [phone] Attending Physician: Tj Alicia MD Referring Physician: [...] Reg Smoking Cessation Counseling No entered on: 12/28/16 Assessment and Plan No data available for this section
--- OUTSIDE RECORDS SUMMARY | 2017-09-03 00:20 | XMS REPORT | Summary of Care ---
:1945 Author Organization [facility] Spine [facility] Address [address] [place] [address] [address] [place] [address]- Encounter HQ Encntr_alias(FIN) [id number] Date(s): 01/16/17 - 01/17/17 [facility] Spine [address] [place], [place] [address] [phone] Vital Signs No data available for this [...]
--- OUTSIDE RECORDS SUMMARY | 2017-09-03 00:20 | XMS REPORT | Summary of Care ---
:1945 Author Organization [facility] Spine [facility] Address [address] [place] [address] [address] [place] [address]- Encounter HQ Petrantr_anuj(FIN) [id number] Date(s): 02/13/17 - 02/13/17 [facility] Spine [address] [place], [place] [phone] Attending Physician: Tj Alicia MD Referring Physician: [...]
--- OUTSIDE RECORDS SUMMARY | 2017-09-03 00:21 | XMS REPORT ---
:1945 Author Organization [facility] Address [address] [place] [address] Dr. Hernández [address] [place] [id number] Care Team Providers Name Role Phone YARELI GARCIA Unavailable Unavailable WILL FROST Unavailable Unavailable Problems This patient has no known problems. Allergies, Adverse Reactions, Alerts This patient has no known allergies or adverse reactions. Medications This patient has no known medications. Results Test Description Test Time Test Comments Text Results Atomic Results Result Comments TISSUE EXAM 2017-08-28 17:10:00 Surgical Pathology Report Case: [id number] Authorizing Provider: Yareli Garcia MD Collected: 08/25/2017 1030 Ordering Location: [facility] PERIOPERATIVE Received: 08/25/2017 1434 SERVICES Pathologist: Nicolas Diaz MD Specimens: A) - Bladder Tumor, enbloc resection of right lateral wall tumor B) - Bladder Tumor, TUR papillary tumor inside left bladder neck C) - Bladder Tumor, right lateral wall bladder tumor D) - Bladder Tumor, papillary tumor dome A. 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 URINARY BLADDER, RIGHT LATERAL WALL, TURBT: - PAPILLARY UROTHELIAL CARCINOMA, LOW-GRADE (WHO GRADE 2), NONINVASIVE - MUSCULARIS PROPRIA IS NOT INVOLVED BY CARCINOMAD. 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 Is into the lamina propria of one papillary stalk and consists of on 3-4 tiny cell clusters. A. 50296Y. 08730B. 01034Z. 12446Qgqrknodz neoplasm of urinary bladder A. Bladder tumor en bloc resection of right lateral wall tumor; B. TUR papillary tumor inside left bladder neck; C. Right lateral wall bladder tumor; D. Papillary tumor domeThe specimen is received in four containers of [...] from 0.1 to 0.4 cm. Submitted D1. CG/pl Performed URINE CULTURE 2017-08-24 16:00:00 Test Item Value Reference Range Comments CULTURE (BEAKER) (test hize=1121) 50-59,000 col/mL skin eunice (CELLAVISION MANUAL DIFF)2017-08-23 20:07:00 Test Item Value Reference Range Comments NEUTROPHILS - REL (CELLAVISION)(BEAKER) (test 23 % minr=7359) LYMPHOCYTES - REL (CELLAVISION)(BEAKER) (test 66 % zzdk=3681) MONOCYTES - REL (CELLAVISION)(BEAKER) (test 2 % vgbt=0329) EOSINOPHILS - REL (CELLAVISION)(BEAKER) (test 1 % qzxi=0411) BASOPHILS - REL (CELLAVISION)(BEAKER) (test 1 % gqfn=1074) ATYPICAL LYMPHOCYTES - REL (CELLAVISION)(BEAKER) 6 % 0-0 (test kbnr=9914) NEUTROPHILS - ABS (CELLAVISION)(BEAKER) (test 16.58 K/ul 1.78-5.38 jvjp=3545) LYMPHOCYTES - ABS (CELLAVISION)(BEAKER) (test 47.59 K/ul 1.32-3.57 tjac=6683) MONOCYTES - ABS (CELLAVISION)(BEAKER) (test 1.44 K/uL 0.30-0.82 bvoi=6422) EOSINOPHILS - ABS (CELLAVISION)(BEAKER) (test 0.72 K/uL 0.04-0.54 hpuc=6047) BASOPHILS - ABS (CELLAVISION)(BEAKER) (test 0.72 K/uL 0.01-0.08 msta=3007) ATYPICAL LYMPHOCYTES - ABS (CELLAVISION)(BEAKER) 4.33 K/uL 0.00-0.00 (test osdl=8172) TOTAL COUNTED (BEAKER) (test mksz=1948) 100 PLT MORPHOLOGY (BEAKER) (test wccb=739) Normal SMUDGE CELLS (BEAKER) (test fjal=9088) Present POLYCHROMATOPHILLIC RBCS(BEAKER) (test iayk=953) 1+ few HYPOCHROMIA (BEAKER) (test swlo=827) 1+ few ANISOCYTOSIS (BEAKER) (test boty=544) 2+ moderate MICROCYTES (BEAKER) (test spoe=697) 2+ moderate POIKILOCYTES (BEAKER) (test uydl=371) 1+ few ARTIFACT (CELLAVISION)(BEAKER) (test eyai=9572) Present PLATELET CONCENTRATION (CELLAVISION)(BEAKER) Adequate (test tclc=4721) Received comment: User comments: Slide comments:CBC W/PLT COUNT & AUTO [id number] 20:06:00 Test Item Value Reference Range Comments WHITE BLOOD CELL COUNT (BEAKER) (test lcks=837) 72.1 K/ L 3.5-10.5 RED BLOOD CELL COUNT (BEAKER) (test zzpz=015) 4.97 M/ L 4.63-6.08 HEMOGLOBIN (BEAKER) (test gkiy=915) 13.1 GM/DL 13.7-17.5 HEMATOCRIT (BEAKER) (test fotm=013) 42.1 % 40.1-51.0 MEAN CORPUSCULAR VOLUME (BEAKER) (test kjzy=584) 84.7 fL 79.0-92.2 MEAN CORPUSCULAR HEMOGLOBIN (BEAKER) (test 26.4 pg 25.7-32.2 ydks=349) MEAN CORPUSCULAR HEMOGLOBIN CONC (BEAKER) (test 31.1 GM/DL 32.3-36.5 ttax=599) RED CELL DISTRIBUTION WIDTH (BEAKER) (test 14.5 % 11.6-14.4 ebip=538) PLATELET COUNT (BEAKER) (test ikcu=856) 247 K/CU MM 150-450 MEAN PLATELET VOLUME (BEAKER) (test ufdd=585) 10.6 fL 9.4-12.4 NUCLEATED RED BLOOD CELLS (BEAKER) (test 0 /100 WBC 0-0 ifki=850) RAD, CHEST, 2 [id number] 16:22:00Reason for Exam:->bladder cancer, pre- op testingFINAL REPORT Chest, two views HISTORY: Bladder cancer COMPARISON: None. DISCUSSION: Enlargement of the cardiomediastinal silhouette with tortuosity and ectasia of the thoracic aorta. Lungs are grossly clear without focal consolidation. No large pleural effusion or pneumothorax. Mild degenerative changes in the thoracic spine. Healed left-sided rib fractures. IMPRESSION: Enlargement of the cardiomediastinal silhouette. Otherwise, no acute cardiopulmonary abnormality. Signed: Brett Valente MDRepjohn j. [facility] Verified Date/Time: 08/23/2017 16:22:14 Reading Location: [address] Reading Room Electronically signed by: BRETT VALENTE MD on 04:22 PM[facility] [id number] 16:10:00 Test Item Value Reference Range Comments SODIUM (BEAKER) (test 140 meq/L 136-145 guhs=305) POTASSIUM (BEAKER) (test 3.9 meq/L 3.5-5.1 idqi=417) CHLORIDE (BEAKER) (test 104 meq/L 98-107 qtqy=605) CO2 (BEAKER) (test 25 meq/L 22-29 iaym=282) BLOOD UREA NITROGEN 29 mg/dL 7-21 (BEAKER) (test vjkg=770) CREATININE (BEAKER) (test 1.59 mg/dL 0.57-1.25 iuvg=527) GLUCOSE RANDOM (BEAKER) 80 mg/dL 70-105 (test inhb=268) CALCIUM (BEAKER) (test 9.8 mg/dL 8.4-10.2 yprn=555) EGFR (BEAKER) (test 43 mL/min/1.73 sq m ESTIMATED GFR IS NOT nyml=2042) ACCURATE CREATININE CLEARANCE IN PREDICTING GLOMERULAR FILTRATION RATE. ESTIMATED GFR IS NOT APPLICABLE FOR DIALYSIS PATIENTS. URINALYSIS W/ [id number] 16:01:00 Test Item Value Reference Range Comments COLOR (BEAKER) (test expn=900) Light Yellow CLARITY (BEAKER) (test gbtr=426) Clear SPECIFIC GRAVITY UA (BEAKER) (test hkuk=373) 1.012 1.001-1.035 PH UA (BEAKER) (test skhw=410) 7.0 5.0-8.0 PROTEIN UA (BEAKER) (test mfwe=744) 50 mg/dL Negative GLUCOSE UA (BEAKER) (test gogs=261) Negative Negative KETONES UA (BEAKER) (test wpgc=000) Negative Negative BILIRUBIN UA (BEAKER) (test tbkg=318) Negative Negative BLOOD UA (BEAKER) (test fhyl=277) Negative Negative NITRITE UA (BEAKER) (test vern=486) Negative Negative LEUKOCYTE ESTERASE UA (BEAKER) (test qcam=149) Negative Negative UROBILINOGEN UA (BEAKER) (test xvap=853) 0.2 mg/dL 0.2-1.0 RBC UA (BEAKER) (test enel=608) 1 /HPF WBC UA (BEAKER) (test iyta=544) < /HPF MUCUS (BEAKER) (test mtnm=8947) Rare SOURCE(BEAKER) (test ryij=3018) [id number] 15:55:00 Test Item Value Reference Range Comments PARTIAL THROMBOPLASTIN TIME (BEAKER) (test 31.6 seconds 22.5-36.0 rbtr=792) PROTHROMBIN TIME/[id number] 15:54:00 Test Item Value Reference Range Comments PROTIME (BEAKER) (test qwng=222) 14.8 seconds 11.7-14.7 INR (BEAKER) (test cngi=248) 1.2 <=5.9 RECOMMENDED COUMADIN/WARFARIN INR THERAPY RANGESSTANDARD DOSE: 2.0 - 3.0 Includes: PROPHYLAXIS forvenous thrombosis, systemic embolization; TREATMENT for venous thrombosis and/or pulmonary embolus.HIGH RISK: Target INR is 2.5-3.5 for patients with mechanical heart valves.HEMOGLOBIN [id number] 11:52:00 Test Item Value Reference Range Comments HEMOGLOBIN A1C (BEAKER) (test dslv=854) 6.9 % 4.3-6.1 [id number] 11:12:00 Test Item Value Reference Range Comments RPR SCREEN (BEAKER) (test lpjt=639) Nonreactive Nonreactive CBC W/PLT COUNT & AUTO [id number] 10:31:00 Test Item Value Reference Range Comments WHITE BLOOD CELL COUNT (BEAKER) (test jxdy=950) 23.5 K/ L 3.5-10.5 RED BLOOD CELL COUNT (BEAKER) (test guln=945) 3.90 M/ L 4.63-6.08 HEMOGLOBIN (BEAKER) (test izbf=983) 11.0 GM/DL 13.7-17.5 HEMATOCRIT (BEAKER) (test txtk=507) 34.6 % 40.1-51.0 MEAN CORPUSCULAR VOLUME (BEAKER) (test znxk=297) 88.7 fL 79.0-92.2 MEAN CORPUSCULAR HEMOGLOBIN (BEAKER) (test 28.2 pg 25.7-32.2 vprm=357) MEAN CORPUSCULAR HEMOGLOBIN CONC (BEAKER) (test 31.8 GM/DL 32.3-36.5 tdty=962) RED CELL DISTRIBUTION WIDTH (BEAKER) (test 14.2 % 11.6-14.4 hrqi=655) PLATELET COUNT (BEAKER) (test ejej=859) 230 K/CU MM 150-450 MEAN PLATELET VOLUME (BEAKER) (test hxay=232) 10.6 fL 9.4-12.4 NUCLEATED RED BLOOD CELLS (BEAKER) (test 0 /100 WBC 0-0 ofpe=947) NEUTROPHILS RELATIVE PERCENT (BEAKER) (test 32 % bwuw=376) LYMPHOCYTES RELATIVE PERCENT (BEAKER) (test 64 % mphw=981) MONOCYTES RELATIVE PERCENT (BEAKER) (test 3 % tcbk=227) EOSINOPHILS RELATIVE PERCENT (BEAKER) (test 0 % jaab=047) BASOPHILS RELATIVE PERCENT (BEAKER) (test 0 % fzei=299) NEUTROPHILS ABSOLUTE COUNT (BEAKER) (test 7.57 K/ L 1.78-5.38 kczo=228) LYMPHOCYTES ABSOLUTE COUNT (BEAKER) (test 15.04 K/ L 1.32-3.57 ulja=648) MONOCYTES ABSOLUTE COUNT (BEAKER) (test 0.68 K/ L 0.30-0.82 bsra=220) EOSINOPHILS ABSOLUTE COUNT (BEAKER) (test 0.03 K/ L 0.04-0.54 rnff=150) BASOPHILS ABSOLUTE COUNT (BEAKER) (test 0.08 K/ L 0.01-0.08 psrp=286) IMMATURE GRANULOCYTES-RELATIVE PERCENT (BEAKER) 0 % 0-1 (test sxae=4919) (MANUAL DIFFERENTIAL)2017-01-29 10:31:00 Test Item Value Reference Range Comments TOTAL COUNTED (BEAKER) (test niyt=9762) PLT MORPHOLOGY (BEAKER) (test pdlb=187) Normal RBC MORPHOLOGY (BEAKER) (test duaq=709) Normal ATYPICAL LYMPHS(BEAKER) (test xabl=9176) Present SMUDGE CELLS (BEAKER) (test kvrv=9070) Present VITAMIN [id number] 08:02:00 Test Item Value Reference Range Comments VITAMIN B12 (BEAKER) (test gztr=340) 346 pg/mL 213-816 TSH/FREE T4 IF [id number] 08:02:00 Test Item Value Reference Range Comments THYROID STIMULATING HORMONE (BEAKER) (test 1.37 uIU/mL 0.35-4.94 hntq=592) CREATINE KINASE (CK), TOTAL AND [id number] 07:55:00 Test Item Value Reference Range Comments CREATINE KINASE TOTAL (BEAKER) (test pqmr=517) 72 U/L 29-200 CREATINE KINASE-MB (BEAKER) (test usba=894) 0.5 ng/mL 0.0-6.6 CREATINE KINASE-MB INDEX (BEAKER) (test xgyh=760) 0.7 % CK-MB Reference Range:<6.7 Normal6.7-10.0 Borderline>10.0 AbnormalTROPONIN [id number] 07:55:00 Test Item Value Reference Range Comments TROPONIN I (BEAKER) (test ocfs=702) 0.02 ng/mL 0.00-0.03 Troponin I (TnI) levels must be interpreted [...] failure, acidosis, acute neurological disease, and persistent tachyarrhythmia.LIPID [id number] 07:39:00 Test Item Value Reference Range Comments TRIGLYCERIDES (BEAKER) (test fkks=603) 175 mg/dL CHOLESTEROL (BEAKER) (test ovyi=339) 104 mg/dL HDL CHOLESTEROL (BEAKER) (test gdzc=522) 21 mg/dL LDL CHOLESTEROL CALCULATED (BEAKER) (test 48 mg/dL rvup=031) Triglyceride Reference Range: Low Risk <150 Borderline 150- 199 High Risk 200-499 Very High Risk >=500Cholesterol Reference Range: Low Risk <200 Borderline 200-239 High Risk > 240HDL Cholesterol Reference Range: Low Risk >=60 High Risk <40LDL Cholesterol Reference Range: Optimal <100 Near Optimal 100-129 Borderline 130-159 High 160-189 Very High >=190BASIC METABOLIC [id number] 07:39:00 Test Item Value Reference Range Comments SODIUM (BEAKER) (test 141 meq/L 136-145 zqbo=717) POTASSIUM (BEAKER) (test 3.7 meq/L 3.5-5.1 xerq=863) CHLORIDE (BEAKER) (test 108 meq/L 98-107 tjjo=128) CO2 (BEAKER) (test 23 meq/L 22-29 hfgq=984) BLOOD UREA NITROGEN 20 mg/dL 7-21 (BEAKER) (test fyuh=825) CREATININE (BEAKER) (test 1.41 mg/dL 0.57-1.25 psgf=515) GLUCOSE RANDOM (BEAKER) 111 mg/dL 70-105 (test uwds=155) CALCIUM (BEAKER) (test 9.3 mg/dL 8.4-10.2 vjla=441) EGFR (BEAKER) (test 49 mL/min/1.73 sq m ESTIMATED GFR IS NOT wbhs=1304) ACCURATE CREATININE CLEARANCE IN PREDICTING GLOMERULAR FILTRATION RATE. ESTIMATED GFR IS NOT APPLICABLE FOR DIALYSIS PATIENTS. MR, MRA, BRAIN, WITHOUT [id number] 04:30:00Reason for exam:-> Ischemic Stroke EvaluationFINAL REPORT MR, BRAIN, WITHOUT CONTRAST, MR, MRA, NECK, WITHOUT IV CONTRAST,MR, MRA, BRAIN, WITHOUT CONTRAST INDICATION: StrokeIschemic Stroke Evaluation TECHNIQUE: Multiplanar, multisequence MR images of the brain. 3-D time of flight MRA of the cranial and cervical circulation. 2-D time of flight MRA of the neck. 3D MIP angiographic post-processing was performed. Stenosis evaluation utilized NASCET criteria. COMPARISON: Noncontrast brain CT of the same date FINDINGS: MRI BRAIN : Moderate to severe global volume loss with severe patchy periventricular and subcortical areasof T2 and FLAIR signal abnormality consistent with chronic microvascular ischemic disease.Midline structures and posterior fossa within normal limits.Small acute infarct in the right green radiata of the frontal lobe. Another small acute infarct in the left temporoparietal lobe white matter.No hemorrhagic transformation.Arachnoid cyst in the right middle cranial fossa.No acute hydrocephalus.Preserved flow voids in the major intracranial vascular structures. Loops are symmetric.Mild paranasal sinus mucosal disease. MRA NECK: On the right, there is no significant atherosclerotic plaque at the CCA bifurcation. No flow-limiting stenosis or dissection.On the left, there is no significant atherosclerotic plaque at the CCA bifurcation. No flow-limiting stenosis or dissection.Co-dominant vertebral artery system. No flow-limiting stenosis of vertebral arteries. MRA HEAD: Mild atherosclerotic disease in the carotid siphons, right greater than left.No flow-limiting stenosis, dissection, or aneurysm of the anterior circulation.Mild to moderate atherosclerotic disease in the proximal basilar artery.No flow-limiting stenosis, dissection, or aneurysm of the posterior circulation. IMPRESSION:Small infarcts in the right frontal lobe and left parietal lobe white matter. Consider cardiac echo to rule out a central source.No flow-limiting stenosis in the intra or extracranial cerebral arterial vasculature. Signed: Zelalem Maciel MDReport Verified Date/Time: 01/29/2017 04:30:36 Reading Location: [facility] [id number] [facility] Consult Reading Room Electronically signed by: ZELALEM MACIEL MD on 2016 04:30 AMMR, MRA, NECK, WITHOUT IV [id number] 04:30:00Reason for exam:->Ischemic Stroke EvaluationFINAL REPORT MR, BRAIN, WITHOUT CONTRAST, MR, MRA, NECK, WITHOUT IV CONTRAST,MR, MRA, BRAIN, WITHOUT CONTRAST INDICATION: StrokeIschemic Stroke Evaluation TECHNIQUE: Multiplanar, multisequence MR images of the brain. 3-D time of flight MRA of the cranial and cervical circulation. 2-D time of flight MRA of the neck. 3D MIP angiographic post-processing was performed. Stenosis evaluation utilized NASCET criteria. COMPARISON: Noncontrast brain CT of the same date FINDINGS: MRI BRAIN: Moderate to severe global volume loss with severe patchy periventricular and subcortical areasof T2 and FLAIR signal abnormality consistent with chronic microvascular ischemic disease.Midline structures and posterior fossa within normal limits.Small acute infarct in the right green radiata of the frontal lobe. Another small acute infarct in the left temporoparietal lobe white matter.No hemorrhagic transformation.Arachnoid cyst in the right middle cranial fossa.No acute hydrocephalus.Preserved flow voids in the major intracranial vascular structures. Loops are symmetric.Mild paranasal sinus mucosal disease. MRA NECK: On the right, there is no significant atherosclerotic plaque at the CCA bifurcation. No flow-limiting stenosis or dissection.On the left, there is no significant atherosclerotic plaque at the CCA bifurcation. No flow-limiting stenosis or dissection.Co- dominant vertebral artery system. No flow-limiting stenosis of vertebral arteries. MRA HEAD: Mild atherosclerotic disease in the carotid siphons, right greater than left.No flow-limiting stenosis, dissection, or aneurysm of the anterior circulation.Mild to moderate atherosclerotic disease in the proximal basilar artery.No flow-limiting stenosis, dissection, or aneurysm of the posterior circulation. IMPRESSION:Small infarcts in the right frontal lobe and left parietal lobe white matter. Consider cardiac echo to rule out a central source.No flow-limiting stenosis in the intra or extracranial cerebral arterial vasculature. Signed: Zelalem Maciel MDReport Verified Date/Time: 01/29/2017 04 :30:36 Reading Location: [address] Reading Room MR, BRAIN, WITHOUT [id number] 04:30:00Reason for exam:->Ischemic Stroke EvaluationFINAL REPORT MR, BRAIN, WITHOUT CONTRAST, MR, MRA, NECK, WITHOUT IV CONTRAST,MR, MRA, BRAIN, WITHOUT CONTRAST INDICATION: StrokeIschemic Stroke Evaluation TECHNIQUE: Multiplanar, multisequence MR images of the brain. 3-D time of flight MRA of the cranial and cervical circulation. 2-D time of flight MRA of the neck. 3D MIP angiographic post- processing was performed. Stenosis evaluation utilized NASCET criteria. COMPARISON: Noncontrast brain CT of the same date FINDINGS: MRI BRAIN: Moderate to severe global volume loss with severe patchy periventricular and subcortical areasof T2 and FLAIR signal abnormality consistent with chronic microvascular ischemic disease.Midline structures and posterior fossa within normal limits.Small acute infarct in the right green radiata of the frontal lobe. Another small acute infarct in the left temporoparietal lobe white matter.No hemorrhagic transformation.Arachnoid cyst in the right middle cranial fossa.No acute hydrocephalus.Preserved flow voids in the major intracranial vascular structures. Loops are symmetric.Mild paranasal sinus mucosal disease. MRA NECK: On the right, there is no significant atherosclerotic plaque at the CCA bifurcation. No flow-limiting stenosis or dissection.On the left, there is no significant atherosclerotic plaque at the CCA bifurcation. No flow-limiting stenosis or dissection.Co-dominant vertebral artery system. No flow-limiting stenosis of vertebral arteries. MRA HEAD: Mild atherosclerotic disease in the carotid siphons, right greater than left.No flow-limiting stenosis, dissection, or aneurysm of the anterior circulation.Mild to moderate atherosclerotic disease in the proximal basilar artery.No flow-limiting stenosis, dissection, or aneurysm of the posterior circulation. IMPRESSION:Small infarcts in the right frontal lobe and left parietal lobe white matter. Consider cardiac echo to rule out a central source.No flow-limiting stenosis in the intra or extracranial cerebral arterial vasculature. Signed: Zelalem Maciel MDReport Verified Date/Time: 01/29/2017 04:30:36 Reading Location: [facility] C013X [facility] Reading Room Electronically signed by: ZELALEM MACIEL MD on 2016 04:30 AM
[2017-09-03 01:03] LABS: Absolute Monocytes 1.7 K/uL (0.1-1.3); Absolute Neutrophil 9.5 K/uL (1.8-8.0); Basophils % 0.2 % (0-1.3); Eosinophils % 0.3 % (0-4.4); Hematocrit 39.4 % (39.6-49.0); Lymphocytes % 85.3 % (15.3-44.8); MCV 84.7 fL (80-100); MPV 8.9 fL (7.6-11.3); Monocytes % 2.2 % (3.3-12.3); RBC Red Blood Cell Count 4.65 M/uL (4.33-5.43)
[2017-09-03 01:06] LABS: Protime INR 1.2
[2017-09-03 01:20] LABS: AST/SGOT 20 U/L (15-37); BUN Blood Urea Nitrogen 28 mg/dL (7-18); Bicarbonate 25 mmol/L (21-32); Glucose Level 156 mg/dL (74-106); Potassium 3.7 mmol/L (3.5-5.1); Sodium Level 142 mmol/L (136-145)
[2017-09-03 01:21] LABS: ALT/SGPT 21 U/L (12-78); Albumin 3.5 g/dL (3.4-5.0); Alkaline Phosphatase 96 U/L (45-117); Bilirubin Direct < 0.1 mg/dL (0-0.2); Bilirubin Total 0.3 mg/dL (0.2-1.0); CKMB Creatine Kinase MB 1.3 ng/mL (0.3-3.6); Creatine Phosphokinase 58 U/L (39-308); Magnesium 2.4 mg/dL (1.8-2.4); NT PRO-BNP 2912 pg/mL (<125); Protein, Total 6.8 g/dL (6.4-8.2)
[2017-09-03 01:27] LABS: Blood Morphology Comment NOT SEEN (NOT SEEN); Platelet Estimate ADEQ
--- NOTE | 2017-09-03 03:07 | ER ---
Nurse's Notes [facility] Name: Duke Marin III Age: 72 yrs Sex: Male : 1945 Arrival Date: 09/03/2017 Time: 00:16 Bed 23 Private MD: Javi Looney Diagnosis: Palpitations;Atrial fibrillation and flutter Presentation: 09/03 00:30 Presenting complaint: Patient states: "I have a rapid heart rate"; Denies chest pain, lp1 shortness of breath, palpitations; States checking his BP at 2030 and heart rate was 140. Transition of care: patient was not received from another setting of care. Onset of symptoms was September 02, 2017 at 20:30. Risk Assessment: Do you want to hurt yourself or someone else? Patient reports no desire to harm self or others. Initial Sepsis Screen: Does the patient meet any 2 criteria? No. Patient's initial sepsis screen is negative. Does the patient have a suspected source of infection? No. Patient's initial sepsis screen is negative. Care prior to arrival: None. 00:30 Method Of Arrival: Wheelchair lp1 00:30 Acuity: PARAG 2 lp1 Historical: - Allergies: 01:07 Pseudoephedrine; lp1 - Home Meds: 01:13 Procardia Oral daily [Active]; valsartan oral oral [Active]; Crestor 10 mg Oral tab 1 lp1 tab once daily [Active]; aspirin 81 mg Oral chew [Active]; Plavix 75 mg Oral tab 1 tab once daily [Active]; Bystolic oral oral [Active]; - PMHx: 01:07 Atrial Fib; CLL; CVA; enlarged aorta; Hypertension; SVT; bladder cancer; lp1 - PSHx: 01:07 Bladder resection; lp1 - Immunization history:: Adult Immunizations up to date. - Social history:: Smoking status: Patient/guardian denies using tobacco. - Ebola Screening: : No symptoms or risks identified at this time. Screenin:11 Abuse screen: Denies threats or abuse. Denies injuries from another. Nutritional lp1 screening: No deficits noted. Tuberculosis screening: No symptoms or risk factors identified. Fall Risk Total [place] Fall Scale indicates High Risk Score (45 or more points). Fall prevention measures have been instituted. Side Rails Up X 2 As available patient and family educated on Fall Prevention Program and Strategies. Assessment: 01:10 General: Appears in no apparent distress. Behavior is calm, cooperative. Pain: Denies lp1 pain. Neuro: Level of Consciousness is awake, alert, obeys commands, Oriented to person, place, time, situation. Cardiovascular: Capillary refill < 3 seconds in bilateral fingers toes Patient's skin is warm and dry. Respiratory: Respiratory effort is even, unlabored, Respiratory pattern is regular, Breath sounds are clear bilaterally. Denies shortness of breath. GI: No signs and/or symptoms were reported involving the gastrointestinal system. : No signs and/or symptoms were reported regarding the genitourinary system. EENT: No signs and/or symptoms were reported regarding the EENT system. Derm: Skin is fragile, is thin, Skin is dry, Skin is pink, warm \\T\\ dry. Musculoskeletal: Circulation, motion, and sensation intact. 02:00 Reassessment: Patient appears in no apparent distress at this time. No changes from lp1 previously documented assessment. Patient and/or family updated on plan of care and expected duration. Pain level reassessed. 03:00 Reassessment: Patient appears in no apparent distress at this time. Patient and/or lp1 family updated on plan of care and expected duration. Pain level reassessed. Patient is alert, oriented x 3, equal unlabored respirations, skin warm/dry/pink. Patient aware of pending admission Patient denies pain at this time. 04:00 Reassessment: Patient appears in no apparent distress at this time. No changes from lp1 previously documented assessment. Patient and/or family updated on plan of care and expected duration. Pain level reassessed. Vital Signs: 00:30 BP 114 / 82; Pulse 139; Resp 20; Temp 97.8(O); Pulse Ox 98% on R/A; Weight 88.45 kg; lp1 Height 5 ft. 10 in. (177.80 cm); Pain 0/10; 00:45 BP 99 / 70; Pulse 138; Resp 14; Pulse Ox 97% on R/A; lp1 01:00 BP 105 / 69; Pulse 124; Resp 12; Pulse Ox 95% on R/A; lp1 02:25 Pulse 124; lp1 02:29 BP 116 / 97; Pulse 123; Resp 26; Pulse Ox 98% on R/A; tl2 03:00 BP 118 / 86; Pulse 123; Resp 20; Pulse Ox 99% on R/A; lp1 03:30 BP 112 / 81; Pulse 119; Resp 19; Pulse Ox 97% on R/A; lp1 04:00 BP 127 / 69; Pulse 57; Resp 17; Pulse Ox 98% on R/A; Pain 0/10; lp1 04:21 Pulse 59; lp1 00:30 Body Mass Index 27.98 (88.45 kg, 177.80 cm) lp1 ED Course: 00:16 Patient arrived in ED. es 00:16 Javi Looney MD is Private Physician. es 00:34 Isiah Draper NP is [facility]. pm1 00:34 Russell De La Paz MD is Attending Physician. pm1 00:35 Inserted saline lock: 20 gauge in right forearm, using aseptic technique. Blood lp1 collected. 00:42 Edilia Loaiza RN is Primary Nurse. lp1 01:04 Arm band placed on left wrist. lp1 01:06 Triage completed. lp1 01:08 X-ray completed. Portable x-ray completed in exam room. Patient tolerated procedure mh1 well. 01:09 XRAY Chest (1 view) In Process Unspecified. EDMS 01:11 Patient has correct armband on for positive identification. Placed in gown. Bed in low lp1 position. Call light in reach. equipment monitor phototypesetting on. Pulse ox on. NIBP on. 03:05 Sagar Morataya MD is Hospitalizing Provider. pm1 03:31 No provider procedures requiring assistance completed. Patient admitted, IV remains in lp1 place. Administered Medications: 00:50 Drug: Lopressor 5 mg Route: IVP; Site: right forearm; lp1 00:50 Drug: Metoprolol TARTRATE (Lopressor) 50 mg Route: PO; lp1 02:25 Follow up: Response: No adverse reaction lp1 00:55 Drug: Lopressor 5 mg Route: IVP; Site: right forearm; lp1 01:00 Drug: Lopressor 5 mg Route: IVP; Site: right forearm; lp1 02:25 Follow up: Pulse 124 bpm; Response: No adverse reaction lp1 01:27 Drug: NS 0.9% 500 ml Route: IV; Rate: bolus; Site: right forearm; lp1 02:30 Follow up: IV Status: Completed infusion; IV Intake: 500ml lp1 03:10 Drug: Lopressor 5 mg Route: IVP; Site: right forearm; lp1 04:21 Follow up: Pulse 59 bpm; Response: Marked relief of symptoms lp1 Intake: 02:30 IV: 500ml; Total: 500ml. lp1 Outcome: 03:06 Decision to Hospitalize by Provider. pm1 03:31 Condition: stable lp1 03:31 Instructed on the need for admit. 04:28 Admitted to ER Hold. Please see [facility] for further documentation. lp1 12:42 Patient left the ED. Signatures: Dispatcher [employer] Nga Jones Martha 1 Gricel Patrick RN RN ss Edilia Loaiza RN RN lp1 Isiah Draper, POWER PLANT ASSISTANT POWER PLANT ASSISTANT pm1 Emmy Holcomb RN RN tl2
--- NOTE | 2017-09-03 03:07 | EDPHYS ---
Physician Documentation [facility] Name: Duke Marin III Age: 72 yrs Sex: Male : 1945 Arrival Date: 09/03/2017 Time: 00:16 Bed 23 Private MD: Javi Looney ED Physician Russell De La Paz HPI: 09/03 01:00 This 72 yrs old Male presents to ER via Wheelchair with complaints of pm1 Palpitations. 01:00 The patient presents with a history of heart racing. Context: The symptoms occur at pm1 rest. Onset: The symptoms/episode began/occurred last night. Duration: The patient or guardian reports a single episode, that is still ongoing. Modifying factors: The symptoms are aggravated by nothing. The symptoms are alleviated by nothing. Associated signs and symptoms: Pertinent negatives: anxiety, chest pain, fever, SOB, syncope, near-syncope. Severity of symptoms: in the emergency department the symptoms are unchanged Pain is currently a 0 / 10. The patient has experienced similar episodes in the past, multiple times. Bladder resection on 08/25/2017. Historical: - Allergies: 01:07 Pseudoephedrine; lp1 - Home Meds: 01:13 Procardia Oral daily [Active]; valsartan oral oral [Active]; Crestor 10 mg Oral tab 1 lp1 tab once daily [Active]; aspirin 81 mg Oral chew [Active]; Plavix 75 mg Oral tab 1 tab once daily [Active]; Bystolic oral oral [Active]; - PMHx: 01:07 Atrial Fib; CLL; CVA; enlarged aorta; Hypertension; SVT; bladder cancer; lp1 - PSHx: 01:07 Bladder resection; lp1 - Immunization history:: Adult Immunizations up to date. - Social history:: Smoking status: Patient/guardian denies using tobacco. - Ebola Screening: : No symptoms or risks identified at this time. ROS: 01:15 Constitutional: Negative for fever, chills, and weight loss, Eyes: Negative for injury, pm1 pain, redness, and discharge, ENT: Negative for injury, pain, and discharge, Neck: Negative for injury, pain, and swelling. 01:15 Respiratory: Negative for shortness of breath, cough, wheezing, and pleuritic chest pain, Abdomen/GI: Negative for abdominal pain, nausea, vomiting, diarrhea, and constipation, Back: Negative for injury and pain, : Negative for injury, bleeding, discharge, and swelling, MS/Extremity: Negative for injury and deformity, Skin: Negative for injury, rash, and discoloration. 01:15 Neuro: Negative for headache, weakness, numbness, tingling, and seizure. 01:15 Cardiovascular: Positive for palpitations, Negative for chest pain, edema, orthopnea. Exam: 01:15 Constitutional: This is a well developed, well nourished patient who is awake, alert, pm1 and in no acute distress. Head/Face: Normocephalic, atraumatic. Neck: Trachea midline, no thyromegaly or masses palpated, and no cervical lymphadenopathy. Supple, full range of motion without nuchal rigidity, or vertebral point tenderness. No Meningismus. Chest/axilla: Normal chest wall appearance and motion. Nontender with no deformity. No lesions are appreciated. 01:15 Respiratory: Lungs have equal breath sounds bilaterally, clear to auscultation and percussion. No rales, rhonchi or wheezes noted. No increased work of breathing, no retractions or nasal flaring. Abdomen/GI: Soft, non-tender, with normal bowel sounds. No distension or tympany. No guarding or rebound. No evidence of tenderness throughout. Back: No spinal tenderness. No costovertebral tenderness. Full range of motion. Skin: Warm, dry with normal turgor. Normal color with no rashes, no lesions, and no evidence of cellulitis. MS/ Extremity: Pulses equal, no cyanosis. Neurovascular intact. Full, normal range of motion. 01:15 Cardiovascular: Rate: tachycardic, actual rate is 144 bpm, Rhythm: regular, Pulses: no pulse deficits are appreciated, Edema: is not appreciated. 01:15 ECG was reviewed by the Attending Physician. Impression: atrial flutter 01:15 Neuro: Orientation: is normal, Motor: is normal, moves all fours. Vital Signs: 00:30 BP 114 / 82; Pulse 139; Resp 20; Temp 97.8(O); Pulse Ox 98% on R/A; Weight 88.45 kg; lp1 Height 5 ft. 10 in. (177.80 cm); Pain 0/10; 00:45 BP 99 / 70; Pulse 138; Resp 14; Pulse Ox 97% on R/A; lp1 01:00 BP 105 / 69; Pulse 124; Resp 12; Pulse Ox 95% on R/A; lp1 02:25 Pulse 124; lp1 02:29 BP 116 / 97; Pulse 123; Resp 26; Pulse Ox 98% on R/A; tl2 03:00 BP 118 / 86; Pulse 123; Resp 20; Pulse Ox 99% on R/A; lp1 03:30 BP 112 / 81; Pulse 119; Resp 19; Pulse Ox 97% on R/A; lp1 04:00 BP 127 / 69; Pulse 57; Resp 17; Pulse Ox 98% on R/A; Pain 0/10; lp1 04:21 Pulse 59; lp1 00:30 Body Mass Index 27.98 (88.45 kg, 177.80 cm) lp1 MDM: 00:36 Patient medically screened. luanne 01:00 ED course: Reviewed ECG with attending MD. Impression atrial flutter, therefore pm1 recommended Lopressor 5 mg IV x 3 and Lopressor 50 mg PO. 02:40 ED course: Repeat ECG reviewed with attending MD. Recommended Lopressor 5 mg IV x 1. pm1 03:04 Data reviewed: vital signs. Data interpreted: Pulse oximetry: on room air is 98 %. pm1 Interpretation: normal. Counseling: I had a detailed discussion with the patient and/or guardian regarding: the historical points, exam findings, and any diagnostic results supporting the discharge/admit diagnosis, lab results, radiology results, the need for further work-up and treatment in the hospital. 03:04 Physician consultation: Sagar Morataya MD was called at 03:05, was contacted at 03:05, pm1 regarding admission, and will see patient in ED. 09/03 00:37 Order name: Basic Metabolic Panel; Complete Time: : pm09/03 00:37 Order name: CBC with Diff; Complete Time: : pm09/03 00:37 Order name: Ckmb; Complete Time: : pm09/03 00:37 Order name: CPK; Complete Time: : pm09/03 00:37 Order name: LFT's; Complete Time: 01: pm09/03 00:37 Order name: Magnesium; Complete Time: : pm09/03 00:37 Order name: NT PRO-BNP; Complete Time: 01:33 pm09/03 00:37 Order name: PT-INR; Complete Time: 01:33 pm09/03 00:37 Order name: Ptt, Activated; Complete Time: 01:33 pm09/03 00:37 Order name: Troponin (emerg Dept Use Only); Complete Time: 01:33 pm09/03 01:26 Order name: Manual Differential; Complete Time: 01:33 EDMS 09/03 03:18 Order name: Urine Dipstick--Ancillary (enter results); Complete Time: 04:09 ms 09/03 03:40 Order name: Urine Microscopic Only; Complete Time: 04:09 pm1 09/03 03:40 Order name: Urine Culture 09/03 00:37 Order name: XRAY Chest (1 view) 09/03 00:37 Order name: EKG; Complete Time: 00:37 pm09/03 00:37 Order name: Cardiac monitoring; Complete Time: 00:42 pm09/03 00:37 Order name: EKG - Nurse/Tech; Complete Time: 00:43 09/03 00:37 Order name: IV Saline Lock; Complete Time: 00:43 pm09/03 00:37 Order name: Labs collected and sent; Complete Time: 00:43 pm09/03 00:37 Order name: O2 Per Protocol; Complete Time: 00:43 pm09/03 00:37 Order name: O2 Sat Monitoring; Complete Time: 00:43 pm09/03 00:37 Order name: Urine Dipstick-Ancillary (obtain specimen); Complete Time: 03:32 pm09/03 02:25 Order name: EKG; Complete Time: 02:25 lp09/03 04:10 Order name: EKG; Complete Time: 04:10 pm09/03 09:38 Order name: Troponin I EDMS 09/03 02:25 Order name: EKG - Nurse/Tech: Repeat; Complete Time: 02:31 lp09/03 04:10 Order name: EKG - Nurse/Tech: Repeat; Complete Time: 04:21 pm1 Administered Medications: 00:50 Drug: Lopressor 5 mg Route: IVP; Site: right forearm; lp1 00:50 Drug: Metoprolol TARTRATE (Lopressor) 50 mg Route: PO; lp1 02:25 Follow up: Response: No adverse reaction lp1 00:55 Drug: Lopressor 5 mg Route: IVP; Site: right forearm; lp1 01:00 Drug: Lopressor 5 mg Route: IVP; Site: right forearm; lp1 02:25 Follow up: Pulse 124 bpm; Response: No adverse reaction lp1 01:27 Drug: NS 0.9% 500 ml Route: IV; Rate: bolus; Site: right forearm; lp1 02:30 Follow up: IV Status: Completed infusion; IV Intake: 500ml lp1 03:10 Drug: Lopressor 5 mg Route: IVP; Site: right forearm; lp1 04:21 Follow up: Pulse 59 bpm; Response: Marked relief of symptoms lp1 Disposition: 09/04 10:43 Co-signature as Attending Physician, Russell De La Paz MD I agree with the assessment and luanne plan of care. Disposition: 09/03/17 03:06 Hospitalization ordered by Sagar Morataya for Observation. Preliminary diagnosis are Palpitations, Atrial fibrillation and flutter. - Bed requested for [facility] ER HOLD. - Status is Observation. ss - Condition is Stable. - Problem is new. - Symptoms have improved. UTI on Admission? No Signatures: Dispatcher [employer] EDMS Christelle Powell RN RN kl Anderson, Corey, MD MD cha Smirch, Shelby, RN RN ss Pena, Laura, RN RN lp1 Isiah Draper, TANK WASHER TANK WASHER pm1 Corrections: (The following items were deleted from the chart) 09/03 03:33 03:06 Hospitalization Ordered by Sagar Morataya MD for Observation. Preliminary kl diagnosis is Palpitations; Atrial fibrillation and flutter. Bed requested for Telemetry/MedSurg (observation). Status is Observation. Condition is Stable. Problem is new. Symptoms have improved. UTI on Admission? No. pm1 12:42 03:33 09/03/2017 03:06 Hospitalization Ordered by Sagar Morataya MD for Observation. ss Preliminary diagnosis is Palpitations; Atrial fibrillation and flutter. Bed requested for [facility] ER HOLD. Status is Observation. Condition is Stable. Problem is new. Symptoms have improved. UTI on Admission? No. kl
[2017-09-03 03:45] LABS: Urine Blood 3+ (NEG); Urine Glucose NEGATIVE (NEG); Urine Protein 3+ (NEG); Urine Specific Gravity 1.025 (1.005-1.030)
--- NOTE | 2017-09-03 03:55 | P.HP ---
Certification for Inpatient Patient admitted to: Observation With expected LOS: <2 Midnights Practitioner: I am a practitioner with admitting privileges, knowledge of patient current condition, hospital course, and medical plan of care. Services: Services provided to patient in accordance with Admission requirements found in Title 42 Section 412.3 of the Code of Federal Regulations Patient History Date of Service: 09/03/17 Reason for admission: Atrial flutter History of Present Illness: Mr Mustafa is a 72-year-old male, with history of CLL, SVT, COPD who came to the ED after found that he has heart rate was elevated when he was taking his blood pressure. Heart rate was around 140. The patient states that he did not miss any of his medications lately. He denied SOB, chest pain, fever or chills. He recognize that has not been keeping up with his fluid intake this past week. Also about 9 days ago, he had a bladder surgery, and he was prescribed ciprofloxacin and according to a family member, last time he took ciprofloxacin , he had a similar episode of tachycardia. At arrival to ED, HR was about 150's , EKG shows regular rhythm without ST-T abnormalities. No fever, WBC elevated due to CLL. Allergies meperidine [From Demerol] Allergy (Verified 01/16/17 23:29) Unknown pseudoephedrine Allergy (Verified 01/16/17 23:29) unknown Home medications list reviewed: Yes Home Medications: Rosuvastatin [Crestor*] 10 mg PO DAILY 04/25/14 Aspirin [Adult Low Dose Aspirin EC] 81 mg PO BID 01/03/17 Clopidogrel Bisulfate [Plavix*] 75 mg PO DAILY 01/03/17 cloNIDine HCl [Catapres*] 0.1 mg PO QID PRN #60 tab 01/16/17 Matzim 360 mg PO DAILY 01/17/17 Apixaban [Eliquis *] 2.5 mg PO BID #0 tablet 01/28/17 Clopidogrel Bisulfate [Plavix*] 75 mg PO DAILY tablet 01/28/17 Cranberry Fruit Extract 200 mg PO DAILY #0 cap 01/28/17 Diltiazem Cd [Cardizem Cd*] 240 mg PO DAILY cap 01/28/17 Lisinopril [Prinivil*] 40 mg PO BID tab 01/28/17 Melatonin [Melatonin*] 3 mg PO BEDTIME PRN PRN tablet 01/28/17 Nebivolol HCl [Bystolic*] 10 mg PO DAILY tab 01/28/17 Ondansetron [Zofran (Odt)*] 4 mg PO Q6H PRN tab 01/28/17 Rosuvastatin [Crestor*] 10 mg PO BEDTIME tab 01/28/17 Tamsulosin [Flomax*] 0.4 mg PO BEDTIME cap 01/28/17 - Past Medical/Surgical History Diabetic: No -: HTN, -: COPD -: SVT -: DM -: AAA -: Bladder cancer. -: CVA 1997 -: CLL -: REMOVAL OF THORACIC HEMATOMA -: bladder resection x2 -: LAMINECTOMY - Family History Father -: Cancer - Social History Smoking Status: Former smoker Alcohol use: Yes CD- Drugs: No Caffeine use: Yes Place of Residence: Home Review of Systems 10-point ROS is otherwise unremarkable Physical Examination - Physical Exam General: Alert, In no apparent distress HEENT: Atraumatic, PERRLA, Mucous membr. moist/pink, EOMI, Sclerae nonicteric Neck: Supple, 2+ carotid pulse no bruit, No LAD, Without JVD or thyroid abnormality Respiratory: Clear to auscultation bilaterally, Normal air movement Cardiovascular: Regular rate/rhythm, Normal S1 S2 Gastrointestinal: Normal bowel sounds, No tenderness Musculoskeletal: No tenderness Integumentary: No rashes Neurological: Normal gait, Normal speech, Normal strength at 5/5 x4 extr, Normal tone, Normal affect Lymphatics: No axilla or inguinal lymphadenopathy - Studies Laboratory Data (last 24 hrs) 09/03/17 00:35: PT 14.2 H, INR 1.20, APTT 31.8 09/03/17 00:35: WBC 79.8 H*, Hgb 12.6 L, Hct 39.4 L, Plt Count 176 09/03/17 00:35: Sodium 142, Potassium 3.7, BUN 28 H, Creatinine 1.80 H, Glucose 156 H, Magnesium 2.4, Total Bilirubin 0.3, AST 20, ALT 21, Alkaline Phosphatase 96 Assessment and Plan - Problems (Diagnosis) (1) Atrial flutter Current Visit: Yes Status: Acute Qualifiers: Atrial flutter type: unspecified Qualified Code(s): I48.92 - Unspecified atrial flutter (2) CLL (chronic lymphocytic leukemia) Onset Date: 01/12/17 Current Visit: No Status: Acute (3) COPD (chronic obstructive pulmonary disease) Onset Date: 07/07/14 Current Visit: No Status: Acute Qualifiers: COPD type: chronic bronchitis - Plan The patient would be admitted to the hospital, due to supraventricular tachycardia, possible atrial flutter. Will order echocardiogram, consult Cardiology team for optimization of his medication. He is on Eliquis already. Resume Bystolic. - Advance Directives Does patient have a Living Will: Yes Does patient have a Durable POA for Healthcare: Yes - Code Status/Comfort Care Code Status Assessed: Yes Code Status: Full Code
[2017-09-03 04:01] LABS: Urine Bacteria <20 /HPF (NONE SEEN); Urine Culture Reflex Order NOT NEEDED; Urine Mucus LIGHT /HPF (NONE SEEN); Urine RBC TNTC /HPF (NONE SEEN)
[2017-09-03 04:10] VITALS: BMI 27.9
[2017-09-03 04:39] VITALS: O2SAT 97
--- NOTE | 2017-09-03 08:35 | RAD REPORT ---
EXAM DESCRIPTION: RAD - Chest Single View - 09/03/2017 1:09 am CLINICAL HISTORY: Heart a arrhythmia, palpitations COMPARISON: January 2017 TECHNIQUE: AP portable chest image was obtained 0104 hours . FINDINGS: No peripheral consolidation or mass. Interstitial markings are prominent but not substanti ally different. Minimal interstitial edema or infiltrate could be masked in this setting. Heart size is upper normal, accentuated by technique and inspiratory effort. Mediastinum also prominent due to s hallow inspiration and rotation. No measurable pleural effusion and no pneumothorax. No gross bony ab normality seen. No acute aortic findings suspected. IMPRESSION: Chronic interstitial lung disease not substantially different from comparison. Mild interstitial edema or infiltrate could be masked. No significant failure or volume overload at this time.
--- NOTE | 2017-09-03 09:28 | EKG ---
Test Date: 2017-09-03 Test Time: 04:17:23 Assistant Infant Toddler Teacher: JOSELITO MEASUREMENT RESULTS: Intervals: Rate: 55 NV: 240 QRSD: 100 QT: 472 QTc: 451 [place]: P: 26 NV: 240 QRS: -18 T: 121 INTERPRETIVE STATEMENTS: Sinus bradycardia with 1st degree AV block Left ventricular hypertrophy with repolarization abnormality Abnormal ECG Compared to ECG 09/03/2017 02:25:50 First degree AV block now present Left ventricular hypertrophy now present Early repolarization now present Accelerated junctional rhythm no longer present Intraventricular conduction delay no longer present Electronically Signed On 09-03-17 09:28:07 CDT by Riki Gu
--- NOTE | 2017-09-03 09:30 | EKG ---
Test Date: 2017-09-03 Test Time: 02:25:50 Wrapper And Preserver: DECLAN MEASUREMENT RESULTS: Intervals: Rate: 122 MI: QRSD: 118 QT: 366 QTc: 521 [place]: P: MI: QRS: -19 T: 60 INTERPRETIVE STATEMENTS: Supraventricular tachycardia possibly atrial flutter Nonspecific intraventricular conduction delay Abnormal ECG Compared to ECG 09/03/2017 00:28:39 no significant change from previous ECG Electronically Signed On 09-03-17 09:29:26 CDT by Riki Gu
--- NOTE | 2017-09-03 09:30 | EKG ---
Test Date: 2017-09-03 Test Time: 00:28:39 Superintendent [employer]: JOSELITO MEASUREMENT RESULTS: Intervals: Rate: 139 [place]: QRSD: 114 QT: 356 QTc: 541 [place]: P: [place]: QRS: -21 T: 52 INTERPRETIVE STATEMENTS: Supraventricular tachycardia, possibly atrial flutter or fibrillation Nonspecific ST and T wave abnormality Abnormal ECG Compared to ECG 01/12/2017 07:06:19 ST (T wave) deviation now present Sinus rhythm no longer present Electronically Signed On 09-03-17 09:30:08 CDT by Riki Gu
[2017-09-03 12:46] VITALS: TEMP 97.8
[2017-09-03 12:54] VITALS: BP 127/69
--- NOTE | 2017-09-03 14:02 | CON ---
History Of Present Illness: Mr. Marin had heart racing that began about 8 o'clock yesterday rach mckee, went away to the emergency room around midnight. Mr. Marin has had this same rhythm off and on for many years. I have tried to help him with that and ultimately required An electrophysiology cons ult. No ablations or pacemakers were required, but it is the opinion of the cupola charger insulation, Dr. Szymanski that this is unusual type of SVT, AV node reentrant, possibly with reversal of the usual path way, namely that one of the pathways is slow and that one has been reversed pathway in the rapid path way as fast or opposite. He has been well controlled. His last episode of SVT was 2 years ago that has been attributed to him taking Cardizem. He also takes aspirin and Plavix. He had been on Eliqui s, but is not on that presently. He has also been on nebivolol. So, the main heart rhythm drugs are diltiazem CD 240 and Bystolic 10 mg daily. He also has bladder problems, recently underwent a bladd er surgery, was given Cipro. In the past, Cipro has caused him to go into his SVT and he attributes that to what he had SVT last night. He also takes tamsulosin, rosuvastatin, Zofran, melatonin, aspir in, and Plavix. He reports drug intolerance to Sudafed and meperidine. He does not use tobacco. He had been on Xarelto when we believed that was atrial flutter, but that has been stopped. It is no l onger entertained as a likely possibility that he has atrial flutter and it seems to be AV node reent rant. He does not have a history of coronary heart disease or heart failure. He has chronic lymphoc ytic leukemia, followed by Dr. Kearney. No chemotherapy. Physical Examination: General: He is alert, oriented, pleasant, not in distress. Lungs: Clear. Heart: Within normal limits. Extremities: Normal. He is in sinus rhythm today. I recommend he be discharged home. He does not need an inpatient cardi ac workup at this time. He will call my office and he will get in touch with Dr. Szymanski about this hospital admission overnight. KISHAN/MEGAN Voice ID: [id number] Report ID: [id number]
== END | disposition home or self-care (01) ==
LOC: ER 00:13 → UNDOADMOB 03:35 → ERHOLD 03:35
DX: I48.91 Unspecified atrial fibrillation (principal); I48.92 Unspecified atrial flutter; I10 Essential (primary) hypertension; Z88.8 Allergy status to other drugs, medicaments and biological substances
CPT/HCPCS: 36415; 71045; 80048; 80076; 82550; 82553; 83735; 83880; 84484 ×2; 85025; 85610; 85730; 87086; 87088; 93005 ×3; J7030; 81003; 81015; 96361; 96374; 99285

== ENCOUNTER 2017-11-09 11:36 | Emergency (ER) | payer OTHER ==
--- OUTSIDE RECORDS SUMMARY | 2017-11-09 11:38 | XMS REPORT | Clinical Summary ---
:1945 Author Organization [facility] Address [address] [place] [address] Phone Care Team Providers Name Role Phone [...] cancer (HCC) 08/25/2017 CVA (cerebral vascular accident) ([facility]) 01/28/2017 Paroxysmal atrial fibrillation ([facility]) 01/28/2017 CLL (chronic lymphocytic leukemia) ([facility]) 01/28/2017 Essential hypertension 01/28/2017 History of lacunar cerebrovascular accident (CVA) 01/28/2017 Encounters Date Type Specialty Care Team Description 08/25/2017 Hospital Encounter Brown Garcia Malignant Priscilla MD urinary bladder, unspecified site (HCC);Pre-op testing;Bacteremia 08/25/2017 Procedure Pass 08/25/2017 Surgery Brown Garcia CYSTOSCOPY,BLUE LIGHT MD Louis [facility] 08/24/2017 Anesthesia Event Chinedu Figueredo MD 08/23/2017 Hospital Encounter Cardiology Brown Garcia MD 08/23/2017 Hospital Encounter Brown Garcia MD 08/23/2017 Hospital Encounter Pre-Admission Brown Garcia Testing MD Louis 08/23/2017 Hospital Encounter Pre-Admission Brown Garcia Malignant neoplasm of Testing MD Louis urinary bladder, unspecified site (HCC);Pre-op testing;Bacteremia ;Abnormal coagulation profile 08/23/2017 Orders Only General Internal Medicine 08/23/2017 Outside Orders Lab Amee Lugo 08/21/2017 Orders Only Urology Brown Garcia MD 08/07/2017 Orders Only Urology Brown Garcia Malignant Priscilla MD urinary bladder, unspecified site ([facility]) (Primary Dx);Pre-op testing;Bacteremia ;Abnormal coagulation profile 01/28/2017 - Hospital Encounter [facility] CLL (chronic 01/29/2017 Medicine Linda Montague lymphocytic leukemia) MD Chris ([facility]);Cerebrovascular Onel Pringle, accident (CVA), unspecified mechanism Dipak Bauer ([facility]);Radha Roland MD hypertension;History of lacunar cerebrovascular accident (CVA);Paroxysmal atrial fibrillation (HCC) after 11/08/2016 Social History Tobacco Use Types Packs/Day Years [...] unspecified site (HCC) Special Needs ([facility]) after 11/08/2016 Results Tissue Exam (08/25/2017 10:30 AM) Component Value Ref Range Case Report Surgical Pathology Report Case: [id number] Authorizing Provider:Brown Gacria MDCollected: 08/25/2017 1030 Ordering Location: [facility] Received: 08/25/2017 1434 SERVICES Pathologist: [...] NOT PRESENT Signing Pathologist Direct Phone Line: [phone] COMMENT The focus of invasion on specimen B. Is into the lamina propria of one papillary stalk and consists of on 3-4 tiny cell clusters. CPT Code(s) A. 85253 B. 45982 C. 42014 D. 32683 CLINICAL HISTORY Malignant neoplasm of urinary bladder [...] Specimen Performing Laboratory Tissue - Bladder Tumor [address] [address] TRANSFUSION SERVICE REPORT - SCAN (08/24/2017 5:54 [...] MD Report Verified Date/Time:08/23/2017 16:22:14 Reading Location: [address] Reading Room Procedure Note Interface, External [...] Report Verified Date/Time: 08/23/2017 16:22:14 Reading Location: [address] Reading Room Electrocardiogram, 12-lead (08/23/2017 3:05 PM) Specimen Performing Laboratory GE MUSE Narrative Ventricular Rate 57 BPM Atrial Rate 57 BPM P-R Interval 212 ms QRS Duration 98 ms Q-T Interval 532 ms QTC Calculation(Bazett) 517 ms P [place] 24 degrees R [place] -19 degrees T [place] 74 degrees Sinus bradycardia with 1st degree A-V block Prolonged QT Abnormal ECG No previous ECGs available Confirmed by Radha Liu Alireaz ([id number]) on 08/23/2017 10:07:57 PM Procedure Note Interface, External Ris In - 08/23/2017 10:08 PM CDT Ventricular Rate 57 BPM Atrial Rate 57 BPM P-R Interval 212 ms QRS Duration 98 ms Q-T Interval 532 ms QTC Calculation(Bazett) 517 ms P [place] 24 degrees R [place] -19 degrees T [place] 74 degrees Sinus bradycardia with 1st degree [...] Platelet Conc Adequate Specimen Performing Laboratory Blood [address] [address] Narrative Received comment: User comments: Slide comments: Type and screen, automated (08/23/2017 3:02 PM) Component Value Ref Range ABO/RH AUTOMATED (BEAKER) A POSITIVE Ab Scrn NEGATIVE Specimen Performing Laboratory Blood [address] [address] CBC with platelet count + automated diff [...] 0 /100 WBC Specimen Performing Laboratory Blood [address] [address] Urinalysis w/ Microscopic (08/23/2017 3:02 PM) Component Value Ref Range Color, UA Light Yellow Clarity, UA Clear Specific [place], UA 1.012 1.001 - 1.035 pH, UA [...] Rare Specimen Source Specimen Performing Laboratory Urine [address] [address] aPTT (08/23/2017 3:02 PM) Component Value Ref Range PTT 31.6 22.5 - 36.0 seconds Specimen Performing Laboratory Blood [address] [address] Prothrombin time/INR (08/23/2017 3:02 PM) Component Value Ref Range Protime 14.8 (H) 11.7 - 14.7 seconds INR 1.2 <=5.9 Specimen Performing Laboratory Blood [address] [address] Narrative RECOMMENDED COUMADIN/WARFARIN INR THERAPY RANGES STANDARD [...] Status --------- ------ CBC with platelet count ...[[id number]]AbnormalFinal result Please view results for these tests on the individual orders. Urine culture (08/23/2017 3:02 PM) Component Value Ref Range Result 50-59,000 col/mL skin eunice Specimen Performing Laboratory Urine - Urine, Clean Catch [address] [address] Basic Metabolic Panel (08/23/2017 3:02 PM)Only the [...] APPLICABLE FOR DIALYSIS PATIENTS. Specimen Performing Laboratory [address] [address] RHYTHM STRIP - SCAN (02/02/2017 8:10 AM)Manual Differential (01/29/2017 6:21 AM) Component Value Ref Range Total Counted Platelet Morphology Normal RBC Morphology Normal Atypical Lymphs Present Smudge Cells Present Specimen Performing Laboratory [address] [address] TSH/Free T4 If Indicated (01/29/2017 6:21 AM) Component Value Ref Range TSH 1.37 0.35 - 4.94 uIU/mL Specimen Performing Laboratory [address] [address] Troponin I (01/29/2017 6:21 AM) Component Value Ref Range Troponin I 0.02 0.00 - 0.03 ng/mL Specimen Performing Laboratory [address] [address] Narrative Troponin I (TnI) levels must be [...] Nonreactive Specimen Performing Laboratory Blood [facility] [address] Hemoglobin A1c (01/29/2017 6:21 AM) Component Value Ref Range Hemoglobin A1C 6.9 (H) 4.3 - 6.1 % Specimen Performing Laboratory Blood [address] [address] Vitamin B12 (01/29/2017 6:21 AM) Component Value Ref Range Vitamin B12 346 213 - 816 pg/mL Specimen Performing Laboratory Blood [address] [address] Creatine Kinase (CK), Total and MB (01/29/2017 6:21 AM) Component Value Ref Range Total CK 72 29 - 200 U/L CK-MB 0.5 0.0 - 6.6 ng/mL MB Relative Index 0.7 % Specimen Performing Laboratory Blood [address] [address] Narrative CK-MB Reference Range: <6.7Normal 6.7-10.0Borderline >10.0 Abnormal Lipid panel (01/29/2017 6:21 AM) Component Value Ref Range Triglycerides 175 mg/dL Cholesterol 104 mg/dL HDL 21 mg/dL LDL Calculated 48 mg/dL Specimen Performing Laboratory Blood [address] [address] Narrative Triglyceride Reference Range: Low Risk <150 Irldvufqcg491-940 High Risk 200-499 Very High Risk>=500 Cholesterol Reference Range: Low Risk <200 Kdeoyldhcx210-323 High Risk>240 HDL Cholesterol Reference Range: Low Risk >=60 High Risk <40 LDL Cholesterol Reference Range: Optimal<100 Near Jmeuslu639-121 Igfyzvyeii681-399 Bwes165-286 Very High >=190 MR brain without IV contrast (01/29/2017 4:01 AM) Specimen Performing Laboratory Intrinsic-ID Narrative FINAL REPORT MR, BRAIN, WITHOUT CONTRAST, [...] MD Report Verified Date/Time:01/29/2017 04:30:36 Reading Location: [address] Consult Reading Room Procedure Note Interface, External Ris In - 01/29/2017 4:32 AM EDGE BANDER HAND FINAL REPORT MR, BRAIN, WITHOUT CONTRAST, MR, [...] Report Verified Date/Time: 01/29/2017 04:30:36 Reading Location: [address] Ortho Consult Reading Room neck without IV contrast (01/29/2017 4:01 AM) Specimen Performing Laboratory Intrinsic-ID Narrative FINAL REPORT MR, BRAIN, WITHOUT CONTRAST, [...] MD Report Verified Date/Time:01/29/2017 04:30:36 Reading Location: [address] Consult Reading Room Procedure Note Interface, External Ris In - 01/29/2017 4:32 AM EDGE BANDER HAND FINAL REPORT MR, BRAIN, WITHOUT CONTRAST, MR, [...] Report Verified Date/Time: 01/29/2017 04:30:36 Reading Location: [address] Consult Reading Room head without IV contrast (01/29/2017 4:01 AM) Specimen Performing Laboratory Intrinsic-ID Narrative FINAL REPORT MR, BRAIN, WITHOUT CONTRAST, [...] MD Report Verified Date/Time:01/29/2017 04:30:36 Reading Location: [facility] [id number] Ortho Consult Reading Room Procedure Note Interface, External Ris In - 01/29/2017 4:32 AM EDGE BANDER HAND FINAL REPORT MR, BRAIN, WITHOUT CONTRAST, MR, [...] Report Verified Date/Time: 01/29/2017 04:30:36 Reading Location: [facility] B1 C013X [facility] Consult Reading Room after 11/08/2016
--- OUTSIDE RECORDS SUMMARY | 2017-11-09 11:38 | XMS REPORT | Clinical Summary ---
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 06/06/2016 Cerebrovascular accident (CVA) ([facility]) 06/06/2016 SVT (supraventricular tachycardia) ([facility]) 06/06/2016 CLL (chronic lymphocytic leukemia) ([facility]) 06/06/2016 Encounters Date Type Specialty Care Team Description 05/22/2017 Hospital Encounter Neurology Aman Tyson MD Convulsions, unspecified convulsion type 05/08/2017 Orders Only Rob Valente Convulsions, unspecified convulsion type (Primary Dx) 04/25/2017 Orders Only Emergency Medicine Rob Valente Convulsions, unspecified convulsion type (Primary Dx) 04/24/2017 Office Visit Neurology Aman Tyson MD Cerebral infarction, unspecified mechanism (Primary Dx) after 11/08/2016 Family History Medical History Relation Name Comments [...] 04/24/2017 3:16 PM CDT Plan of Treatment Health Maintenance Due Date Last Done Comments COLON CANCER SCREENING 1995 SHINGRIX VACCINE (#1) 1995 ZOSTER VACCINE 2005 PNEUMOCOCCAL POLYSACCHARIDE VACCINE AGE 65 AND OVER 2010 PNEUMOCOCCAL-13 2010 INFLUENZA VACCINE 09/06/2017 Procedures Procedure Name Priority Date/Time Associated Comments Diagnosis EEG AWAKE/DROWSY LESS Routine 05/30/2017 7:03 Convulsions, Results for this THAN 41 MIN AM CDT unspecified procedure are in convulsion type the results section. ZZESTIMATED GFR Routine 05/15/2017 2:28 Results for this [...] in unspecified the results mechanism section. after 11/08/2016 Results Outpatient EEG (05/30/2017 7:03 AM) Narrative [...] Non Af Amer 50 (A) mL/min/1.73 m2 [facility] DEPARTMENT OF PATHOLOGY AND [facility] GFR Af Amer 60 mL/min/1.73 m2 [facility] DEPARTMENT OF Comment: PATHOLOGY AND [facility] Chronic kidney disease: <60 mL/min/1.73m2 MEDICINE [...] specimen Performing Organization Address City/State/Zipcode Phone Number [facility] DEPARTMENT OF PATHOLOGY [address] [facility] [address] AND [facility] Sedimentation rate (05/15/2017 2:28 PM) Sedimentation rate 4 0 - 10 mm/hr [facility] DEPARTMENT OF PATHOLOGY AND [facility] Specimen Blood Performing Organization Address City/[facility]/Zipcode Phone Number [facility] DEPARTMENT OF PATHOLOGY [address] [facility] [address] AND [facility] CRP high sensitivity (05/15/2017 2:28 PM) CRP, high sensitivity 0.95 mg/L [facility] DEPARTMENT OF Comment: PATHOLOGY AND [facility] Please note this test is different from [...] infection Specimen Plasma specimen Performing Organization Address City/[facility]/Zipcode Phone Number [facility] DEPARTMENT OF PATHOLOGY AND [address] [place] [id number] [facility] Hemoglobin A1c (05/15/2017 2:28 PM) Hemoglobin A1C 6.8 (H) 4.0 - 6.0 % [facility] DEPARTMENT OF PATHOLOGY Comment: AND [facility] MEDICINE Less than 6% - Goal of therapy for Type II Diabetes Less than 7%-Goal of therapy for Type I Diabetes Less than 8%-Acceptable control for Type I or Type II Diabetes Greater than 8%-Unacceptable control; action indicated. (ADA94) Specimen Blood Performing Organization Address City/State/Zipcode Phone Number [facility] DEPARTMENT OF PATHOLOGY [address] [place] [address] AND [facility] Folate level (05/15/2017 2:28 PM) Folate 13.2 4.8 - 24.2 ng/mL [facility] DEPARTMENT OF PATHOLOGY AND GENOMIC MEDICINE Specimen Serum Performing Organization Address City/State/Zipcode Phone Number [facility] DEPARTMENT OF PATHOLOGY AND [address] Vitamin B12 level (05/15/2017 2:28 PM) Vitamin B12 552 211 - 946 pg/mL [facility] DEPARTMENT OF PATHOLOGY Comment: AND [facility] Significant overlap exists between normal and deficiency states. However, most patients with deficiencies will have Serum B12 <200 pg/mL. Specimen Serum Performing Organization Address City/[facility]/Zipcode Phone Number [facility] DEPARTMENT OF PATHOLOGY AND [address] [phone] [facility] Lipid panel (05/15/2017 2:28 PM) Cholesterol 153 0 - 199 mg/dL [facility] DEPARTMENT OF PATHOLOGY AND GENOMIC MEDICINE Triglycerides 334 (H) 0 - 149 mg/dL [facility] DEPARTMENT OF PATHOLOGY AND GENOMIC MEDICINE HDL cholesterol 22 (L) 40 - 99,999 [facility] DEPARTMENT OF mg/dL PATHOLOGY AND GENOMIC MEDICINE LDL cholesterol 85 0 - 99 mg/dL [facility] DEPARTMENT OF PATHOLOGY AND GENOMIC MEDICINE Lipid panel See below [facility] DEPARTMENT OF interpretation Comment: PATHOLOGY AND Total Cholesterol (mg/dL) [facility] MEDICINE <200 Desirable 167-242Suqewoixqv-tiwb >=240High Triglycerides (mg/dL) <150 Normal 806-944Bktakmtfbe-jpdu 200-499High >=500Very high HDL Cholesterol (mg/dL) <40Low (male) <50Low (female) LDL Cholesterol (mg/dL) <100 Optimal 100-129Near or above optimal 312-126Yitxuxvpdc-fjza 160-189High >=190Very high Risk Catergories that modify [...] specimen Performing Organization Address City/State/Zipcode Phone Number [facility] DEPARTMENT OF PATHOLOGY [address] [place] [address] AND [employer] [facility] Comprehensive metabolic panel (05/15/2017 2:28 PM) Sodium 144 135 - 148 mEq/L [facility] DEPARTMENT OF PATHOLOGY AND GENOMIC MEDICINE Potassium 3.8 3.5 - 5.0 mEq/L [facility] DEPARTMENT OF PATHOLOGY AND GENOMIC MEDICINE Chloride 102 98 - 112 mEq/L [facility] DEPARTMENT OF PATHOLOGY AND GENOMIC MEDICINE CO2 28 24 - 31 mEq/L [facility] DEPARTMENT OF PATHOLOGY AND GENOMIC MEDICINE Anion gap 14 7 - 15 mEq/L [facility] DEPARTMENT OF Comment: PATHOLOGY AND GENOMIC Starting from May , anion gap calculation MEDICINE no longer incorporates potassium. Please note the change. BUN 26 (H) 8 - 23 mg/dL [facility] DEPARTMENT OF PATHOLOGY AND GENOMIC MEDICINE Creatinine 1.4 (H) 0.7 - 1.2 mg/dL [facility] DEPARTMENT OF PATHOLOGY AND GENOMIC MEDICINE Glucose 79 65 - 99 mg/dL [facility] DEPARTMENT OF PATHOLOGY AND GENOMIC MEDICINE Calcium 9.7 8.8 - 10.2 mg/dL [facility] DEPARTMENT OF PATHOLOGY AND GENOMIC MEDICINE Protein 7.0 6.3 - 8.3 g/dL [facility] DEPARTMENT OF PATHOLOGY AND GENOMIC MEDICINE Albumin 4.5 3.5 - 5.0 g/dL [facility] DEPARTMENT OF PATHOLOGY AND GENOMIC MEDICINE A/G ratio 1.8 0.7 - 3.8 [facility] DEPARTMENT OF PATHOLOGY AND GENOMIC MEDICINE Alkaline phosphatase 94 40 - 129 U/L [facility] DEPARTMENT OF PATHOLOGY AND GENOMIC MEDICINE AST 17 10 - 50 U/L [facility] DEPARTMENT OF PATHOLOGY AND GENOMIC MEDICINE ALT 12 5 - 50 U/L [facility] DEPARTMENT OF PATHOLOGY AND GENOMIC MEDICINE Total bilirubin 0.3 0.2 - 1.2 mg/dL [facility] DEPARTMENT OF PATHOLOGY AND GENOMIC MEDICINE Specimen Plasma specimen Performing Organization Address City/State/Zipcode Phone Number [facility] DEPARTMENT OF PATHOLOGY [address] [place] [address] AND [employer] MEDICINE after 11/08/2016 Insurance Payer Benefit Plan / Group Subscriber ID Type Phone Address [employer] AET[employer] PPO OPEN CHOICE xxxxxxxxx PPO MEDICARE MEDICARE PART A AND B xxxxxxxxxx Medicare [place], [place] III y [phone] [phone]
--- OUTSIDE RECORDS SUMMARY | 2017-11-09 11:40 | XMS REPORT | Continuity of Care Document ---
:1945 Author Organization Interface Problems Problem Status Onset Classification Date Comments Source Date Reported Urinary 06/01/2017 [place] obstruction [place] Hematuria 06/01/2017 [place] LUMBAR STENOSIS Active [address] M54.16 - Active [facility] "RADICULOPATHY, 7 [place] LUMBAR REGION" Stroke Resolved Problem 06/22/2017 [facility], PRECIOUS [place], PRECIOUS [place],[facility], [facility], [place] Hematoma Resolved Problem 06/22/2017 [facility], PRECIOUS [place], PRECIOUS [place],[facility], PRECIOUS [facility] [place] HBP (<span Active Problem 06/22/2017 [facility] ID="[id number] Neuro, 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>) [place], PRECIOUS [place]avez,[facility], PRECIOUS [facility] [place] Bladder cancer Resolved Problem 06/22/2017 [facility], PRECIOUS [place], PRECIOUS [place]avez,[facility], PRECIOUS [facility] [place] Medications Medication Details Route Status Patient Ordering Order Source Instructions Provider Date Docusate Sodium 1 tab, Route: Inactive 05/29/ [place] 50 MG / PO, Drug Form: 2018 [facility] sennosides, INTERMEDIATE TAB, Dosing 8.6 MG Oral Weight 86.364, Tablet kg, BID, Start date: 05/29/17 17:00:00 CDT, Duration: 30 day, Stop date: 06/28/17 9:00:00 CDTNotes: (Same as Senokot-S) Equiv. to Rachelle-Colace. Docusate Sodium 1 tab, PO, BID, Active 05/29/ [place] 50 MG / X 14 day, # 28 2017 [facility] sennosides, INTERMEDIATE tab, 0 8.6 MG Oral Refill(s), Tablet Pharmacy: [facility] [id number] ciprofloxacin 500 500 mg=1 tab, Active [place] mg oral tablet PO, Q12H, X 7 2017, # 14 tab, 0 Refill(s), Pharmacy: [facility] [id number] Cipro 500 mg, 2 tab, Inactive [place] Route: PO, Drug 2017 [place] form: TAB, [id number], Dosing Weight 86.364, kg, Start date: 05/29/17 [...] Stop date: 06/26/17 2:04:00 CDTNotes: (Same as: [place] 325/5) Do not exceed 4gm/day of acetaminophen. [...] [place] Normal Saline INTRAVESICULAR, 2017 [facility] Drug Form: SOLN, Dosing Weight 89.545, kg, Continuous, Start date: 05/27/17 2:00:00 CDT, Duration: 30 day, Stop date: 06/26/17 1:59:00 CDTNotes: For irrigation only. Sodium Chloride 3,000 mL, Route: Inactive [place] 0.0769 MEQ/ML Intravesical, 2017 [facility] Irrigation Drug Form: SOLN, Solution Dosing [...] [place] Normal Saline Intravesical, 2017 [facility] Drug Form: SOLN, Dosing Weight 89.545, kg, ONCE, Start date: 05/27/17 0:58:00 CDT, Stop date: 05/27/17 0:58:00 CDTNotes: For irrigation only. Irrigation w/ 3,000 mL, Route: Inactive [place] Normal Saline INTRAVESICULAR, 2018 [facility] Drug Form: SOLN, Dosing Weight 89.545, [...] MG TAB, Dosing Oral Tablet Weight 89.545, [[place] 5/325] kg, ONCE, STAT, Start date: 05/26/17 [...] CDT diltiazem 360 mg, 1 cap, Inactive [place] Route: PO, Drug 2016 Medical form: ERCAP, Center ONCE, Dosing Weight 93.182, kg, Start date: 09/24/16 8:38:00 CDT, Stop date: 09/24/16 8:38:00 CDTNotes: DO NOT CRUSH. Lisinopril 40 mg, 2 tab, No Longer [facility] Route: PO, Drug Active 2016 Medical form: TAB, Center Daily, Dosing Weight 93.182, kg, Start date: 09/23/16 9:00:00 CDT, Duration: 30 day, Stop date: 10/22/16 9:00:00 CDTNotes: (Same as: Prinivil, Zestril) Famotidine 20 MG 20 mg=1 tab, PO, Active [facility] Oral Tablet BID, # 20 tab, 0 2016 Medical Refill(s) [place] magnesium citrate 8.725 vs=930 ml, No Longer [facility] 58.2 MG/ML Oral PO, Daily, X 2 Active 2016 Medical Solution day, # 300 mL, 0 Center Refill(s) Acetaminophen 325 1 tab, PO, Q6H, Active [facility] MG / Hydrocodone PRN for pain, X 2017 Medical Bitartrate 10 MG 14 day, # 90 Center Oral Tablet tab, 0 Refill(s) [[place] 10/325] Methocarbamol 500 500 mg=1 tab, Active [facility] MG Oral Tablet PO, Q8H, PRN 2017 Medical [Robaxin] Spasms, X 10 Center day, # 30 tab, 0 Refill(s) {21 See Active [facility] (Methylprednisolo Instructions, 2017 Medical ne 4 MG Oral PO, Take by [place] Tablet [Medrol]) mouth as } Pack [Medrol directed on Dosepak] label., # 1 Pack, 0 Refill(s) Flomax 0.4 mg, 1 cap, No Longer [facility] Route: PO, Drug Active 2016 Medical form: CAP, Center Daily, Dosing Weight 93.182, kg, Start date: 09/23/16 1:28:00 CDT, Duration: 30 day, Stop date: 10/22/16 9:00:00 CDTNotes: (Same As: Flomax) "Do Not Crush" Cefazolin 2 gm, Route: IV, No Longer [place] Drug form: INJ, Active 2016 Medical [id number], Dosing Center Weight 93.182, kg, Start date: 09/22/16 22:00:00 CDT, Duration: 24 hr, Stop date: 09/23/16 14:00:00 CDT, ABX Indication: Surgical ProphylaxisNotes : (Same As: AncJaneen landa) Cefazolin FOR IV SET ONLY MEDICATION WASTE Product Size: 1000 mg Product Wasted: _0__ mg Saline Flush 0.9% 10 ml, Route: No Longer [place] IVP, Drug Form: Active 2016 Medical INJ, Dosing Center Weight 93.182, kg, Q12H, Start date: 09/22/16 21:00:00 CDT, Duration: 30 day, Stop date: 10/22/16 9:00:00 CDTNotes: (Same as: BD Posiflush) Dexamethasone 4 mg, 1 tab, No Longer [place] Route: PO, Drug Active 2016 Medical form: TAB, Q6H, Center Dosing Weight 93.182, kg, Start date: 09/22/16 18:00:00 CDT, Duration: 30 day, Stop date: 10/22/16 12:00:00 CDTNotes: Give with food. (Same As: Decadron) Famotidine 20 MG 20 mg, 1 tab, No Longer [facility] Oral Tablet Route: PO, Drug Active 2016 Medical form: TAB, BID, Center Dosing Weight 93.182, kg, Start date: 09/22/16 17:00:00 CDT, Duration: 30 day, Stop date: 10/22/16 9:00:00 CDTNotes: (Same as: Pepcid) Docusate 50 mg, 1 cap, No Longer [facility] Route: PO, Drug Active 2016 Medical form: CAP, BID, Center Dosing Weight 93.182, kg, Start date: 09/22/16 17:00:00 CDT, Duration: 30 day, Stop date: 10/22/16 9:00:00 CDT, Pediatric DosingNotes: (Same as: Colace) (Do Not Crush) sennosides, INTERMEDIATE 8.6 mg, 1 tab, No Longer [place] Route: PO, Drug Active 2016 Medical Form: [...] Catapres) Ondansetron 4 mg, 2 mL, Inactive [place] Route: IVP, Drug 2016 Medical form: INJ, ONCE, Center Dosing Weight 93.182, kg, PRN Nausea & Vomiting, Start date: 09/22/16 16:37:00 CDTNotes: (Same as: Zofran) MEDICATION WASTE Product Size: 4 mg Product Wasted: ___ mg Naloxone 0.4 mg, 1 mL, Inactive [place] Route: IVP, Drug 2016 Medical form: INJ, Center Q2MIN, Dosing Weight 93.182, kg, PRN Narcotic Reversal, Start date: 09/22/16 16:37:00 CDT, Duration: 8 doses or times, Stop date: Limited # of timesNotes: Same as Narcan Flumazenil 0.2 mg, 2 mL, Inactive [place] Route: IVP, Drug 2016 Medical form: INJ, PRN, Center Dosing Weight 93.182, kg, PRN Benzodiazepine Reversal, Initial dose, Start date: 09/22/16 16:37:00 CDT, Duration: 30 day, Stop date: 10/22/16 16:36:00 CDTNotes: (Same as: Romazicon) Hydralazine 10 mg, 0.5 mL, Inactive [place] Route: IVP, Drug 2017 Medical form: INJ, Center Q20Min, Dosing Weight 93.182, kg, PRN Elevated BP, Start date: 09/22/16 16:37:00 CDT, Duration: 2 doses or times, Stop date: Limited # of timesNotes: (Same as: Apresoline) Push over 5 minutes Hydromorphone 0.5 mg, 0.25 mL, Inactive [place] Route: IVP, Drug 2016 Medical form: INJ, Center Q5Min, Dosing Weight 93.182, kg, PRN Pain Score 7-10, Start date: 09/22/16 16:37:00 CDT, Duration: 4 doses or times, Stop date: Limited # of timesNotes: Same as: Dilaudid Oxycodone 5 mg, 1 tab, Inactive [place] Route: PO, Drug 2016 Medical form: TAB, Q4H, Center Dosing Weight 93.182, kg, PRN Pain Score 4-6, Start date: 09/22/16 16:37:00 CDT, Duration: 30 day, Stop date: 10/22/16 16:36:00 CDTNotes: (Same as: Roxicodone) Saline Flush 0.9% 10 ml, Route: No Longer [place] IVP, Drug Form: Active 2017 Medical INJ, Dosing Center Weight 93.182, kg, PRN, PRN Line Flush, Start date: 09/22/16 16:11:00 CDT, Duration: 30 day, Stop date: 10/22/16 16:10:00 CDTNotes: (Same as: BD Posiflush) Robaxin 500 mg, 1 tab, No Longer [place] Route: PO, Drug Active 2016 Medical form: TAB, TID, Center Dosing Weight 93.182, kg, PRN Spasm, Start date: 09/22/16 16:11:00 CDT, Duration: 30 day, Stop date: 10/22/16 16:10:00 CDTNotes: (Same as:Robaxin) Hydralazine 20 mg, 1 mL, No Longer [place] Route: IVP, Drug Active 2017 Medical form: INJ, Q4H, Center Dosing Weight 93.182, kg, PRN Hypertension, Start date: 09/22/16 16:11:00 CDT, Duration: 30 day, Stop date: 10/22/16 16:10:00 CDTNotes: (Same as: Apresoline) Push over 5 minutes Labetalol 10 mg, 2 mL, No Longer [place] Route: IVP, Drug Active 2016 Medical form: INJ, Center Q15Min, Dosing Weight 93.182, kg, PRN Hypertension, Start date: 09/22/16 16:11:00 CDT, Duration: 30 day, Stop date: 10/22/16 16:10:00 CDT Ondansetron 4 mg, 2 mL, No Longer [place] Route: IVP, Drug Active 2016 Medical form: INJ, Q6H, Center Dosing Weight 93.182, kg, PRN Nausea & Vomiting, Start date: 09/22/16 16:11:00 CDT, Duration: 30 day, Stop date: 10/22/16 16:10:00 CDT, >/=4 years, Pediatric DosingNotes: (Same as: Kt) MEDICATION WASTE Product Size: 4 mg Product Wasted: ___ mg Acetaminophen 325 1 tab, Route: No Longer [place] MG / Hydrocodone PO, Drug Form: Active 2017 Medical Bitartrate 10 MG TAB, Dosing Center Oral Tablet Weight 93.182, [[place] 10/325] kg, Q4H, PRN Pain Score 1-3, Start date: 09/22/16 16:11:00 CDT, Duration: 30 day, Stop date: 10/22/16 16:10:00 CDTNotes: Do not exceed 4gm/day of acetaminophen. (Same as: [place] 325/10) Dilaudid 0.5 mg, 0.25 mL, No Longer [place] Route: IVP, Drug Active 2016 Medical form: INJ, Q3H, Center Dosing Weight 93.182, kg, PRN Pain Score 7-10, Start date: 09/22/16 16:11:00 CDT, Duration: 30 day, Stop date: 10/22/16 16:10:00 CDTNotes: Same as: Dilaudid Bisacodyl 10 mg, 1 supp, No Longer [place] Route: MA, Drug Active 2016 Medical form: SUPP, Center Daily, Dosing Weight 93.182, kg, PRN Constipation, Start date: 09/22/16 16:11:00 CDT, Duration: 30 day, Stop date: 10/22/16 16:10:00 CDTNotes: (Same As: Dulcolax, Bisco-Lax) phenol 1 spray, Route: No Longer [place] TOP, Daily, Drug Active 2016 Medical form: SPRY, PRN Center Sore Throat, Start date: 09/22/16 16:11:00 CDT, Duration: 30 day, Stop date: 10/22/16 16:10:00 CDTNotes: Chloraseptic [place] (Same as: Chloraseptic, Sore Throat [place]) WASTE: F/P - Black; E - [employer] Melatonin 3 MG 3 mg, 1 tab, No Longer [place] Extended Release Route: PO, Drug Active 2016 Medical Tablet Form: TAB, Center Dosing Weight 93.182, kg, Bedtime, PRN as needed for insomnia, Start date: 09/22/16 16:11:00 CDT, Duration: 30 day, Stop date: 10/22/16 16:10:00 CDTNotes: (Same as: Melatonin) Benadryl 25 mg, 1 cap, No Longer [place] Route: PO, Drug Active 2016 Medical form: CAP, TID, Center Dosing Weight 93.182, kg, PRN Itching, Start date: 09/22/16 16:11:00 CDT, Duration: 30 day, Stop date: 10/22/16 16:10:00 CDTNotes: (Same as: Benadryl) ceFAZolin 2 gm, 100 mL, No Longer [facility] Route: IVPB, Active 2016 Medical Drug form: INJ, Center PRE OP, Start date: 09/22/16 3:00:00 CDT, Duration: 1 day, Stop date: 09/23/16 2:59:00 CDT, ABX Indication: Surgical ProphylaxisNotes : Same as: Ancef Allergies, Adverse Reactions, Alerts Substance Category Reaction Severity Reaction Status Date Comments Source type Reported Immunizations Immunization Date Given Site Status Last Updated Comments Source Results Order Name Results Value Reference Date Interpretation Comments Source Range HEMATOLOGY MCHC 32.2 g/dL 32.0 - 05/29 [place] 36.0 [place] HEMATOLOGY MPV 8.6 fL 7.4 - 10.4 05/29 [place] /2017 [place] HEMATOLOGY Platelet 222 K/CMM 133 - 450 05/29 [place] /2017 [place] HEMATOLOGY RDW 16.8 % 11.5 - 05/29 [place] 14.5 [place] HEMATOLOGY Hgb 11.3 g/dL 14.0 - 05/29 [place] 18.0 [place] HEMATOLOGY RBC 4.00 M/CMM 4.70 - 05/29 [place] 6.10 [place] HEMATOLOGY WBC 51.5 K/CMM 3.7 - 10.4 05/29 Result Comment: [place] Critical Result(s) called to Zoran Diana at 05/29/2017 05:34 by FLOR. Read back [...] K/CMM 0.0 - 0.5 05/29 [place] # /2017 [place] HEMATOLOGY Monocytes 3.5 % 2.0 - [...] Basophils 0.3 % 0.0 - 1.0 05/29 [place] HEMATOLOGY Eosinophils 1.0 % 0.0 - 4.0 05/28 [place] HEMATOLOGY Monocytes 2.0 % 2.0 - [...] 42.8 K/CMM 1.0 - 5.5 05/28 [place] # [place] HEMATOLOGY Segs 13.0 % 45.0 - 05/28 [place] 75.0 [place] HEMATOLOGY Eosinophils 0.5 K/CMM 0.0 - 0.5 05/28 [place] # [place] HEMATOLOGY Lymphocytes 82.0 % 20.0 - [...] 14.0 - 05/28 [place] 18.0 [facility] HEMATOLOGY RBC 4.13 M/CMM 4.70 - 05/28 [place] 6.10 /2017 [facility] HEMATOLOGY WBC 51.0 K/CMM 3.7 - 10.4 05/28 Result Comment: [facility] Critical Result(s) called to HANDY Garcia at 05/28/2017 05:59 by LINE MOVER. Read back OK. Bladder US Bladder US Bladder Ultrasound 05/27 - - [facility] History: Hematuria - looking for blood [...] eGFR of 60-89 may be normal in [facility] mL/min/1. some populations, particularly the elderly, for [...] meq/L 24 - 32 05/27 [facility] CHEM PANEL Chloride Lvl 107 meq/L 95 - 109 05/27 [facility] CHEM PANEL Potassium 3.8 meq/L 3.5 - 5.1 05/27 [place] CHEM PANEL Sodium Lvl 142 meq/L [...] # 10.9 K/CMM 1.5 - 8.1 05/27 [facility] HEMATOLOGY Lymphocytes 44.6 K/CMM 1.0 - 5.5 [...] - 05/27 [place] 36.0 /2017 [facility] HEMATOLOGY RDW 16.4 % 11.5 - 05/27 [place] 14.5 [facility] HEMATOLOGY Hgb 12.4 g/dL 14.0 - 05/27 [place] 18.0 [facility] HEMATOLOGY MCV 86.8 fL 80.0 - 05/27 [place] 94.0 /2017 [facility] HEMATOLOGY Hct 37.4 % 42.0 - 05/27 [place] 54.0 /2017 [facility] HEMATOLOGY MCH 28.7 pg 27.0 - 05/27 [place] 31.0 [facility] HEMATOLOGY WBC 56.8 K/CMM 3.7 - 10.4 05/27 Result Comment: [facility] Critical Result(s) called to Nadeem Ayala Rn at 05/27/2017 08:53 by Bry. Read back OK. HEMATOLOGY RBC 4.31 M/CMM 4.70 - 05/27 [place] 6.10 [facility] Bladder US Bladder US EXAM: 05/27 - - [facility] Urinary bladder ultrasound. Read by: Geovanni [...] POS 05/27 [place] RESULTS /2017 [facility] BLOOD BANK Antibody Negative 05/27 [place] RESULTS Scrn [facility] (05/27/17 1:34 AM) BLOOD BANK Platelet Product available 05/27 [place] RESULTS product [facility] (05/27/17 1:25 AM) CHEM PANEL eGFR 49 05/27 Result Comment: The eGFR is calculated using the CKD-EPI formula. In most young, healthy individuals the eGFR will be >90 mL/ min/1.73m2. The eGFR declines with age. An eGFR of 60-89 may be normal in mL/min/1.7 some populations, particularly the elderly, for [...] meq/L 3.5 - 5.1 05/27 [place] Lvl [facility] CHEM PANEL Chloride Lvl 107 meq/L [...] 10.0 - 05/27 [place] 20.0 [facility] HEMATOLOGY Bands 0.0 % 0.0 - 11.0 05/27 [facility] HEMATOLOGY RBC Morph Normal 05/27 [facility] (05/26/17 11:22 PM) HEMATOLOGY Atypical 0.0 % <=0.0 % 05/27 Lymphs [facility] HEMATOLOGY Smudge Few 05/27 [facility] HEMATOLOGY Large Plt Slight 05/27 [facility] HEMATOLOGY Tot Cell Ct 100 05/27 [facility] HEMATOLOGY Plt Morph Normal 05/27 [facility] (05/26/17 11:22 PM) HEMATOLOGY INR 1.13 0.85 - 05/27 [place] 1.17 [facility] HEMATOLOGY PT 14.5 s 12.0 - 05/27 [place] 14.7 [facility] HEMATOLOGY PTT 33.1 s 22.9 - 05/27 [place] 35.8 /2017 [facility] Brain wo Brain wo EXAM: Brain wo contrast MRI 12/28 - [facility] contrast contrast MRI /2016 - [facility] PROVIDED CLINICAL HISTORY: R53.1, Weakness, M48.02, Spinal stenosis, cervical region - . Read by: Jamie Castellon MD Dictated Date/time: 12/28/16 16:16 Electronically Signed by: Jamie Castellon MD 12/28/16 17:07 FINAL REPORT TECHNIQUE: Multi-sequence, multi-planar MR of the brain without gadolinium contrast. COMPARISON: No relevant prior exams available at the time of interpretation. FINDINGS: BRAIN: -- Two subcentimeter ovoid foci of DUL-saq-twfsctuty restricted diffusion, consistent with acute lacunar infarcts, [...] an outpatient basis. 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 There was no response after several attempts, and no voicemail option was available. Several unsuccessful atte mpts were subsequently made to reach the patient at the provided number of [phone]. A generic message was left on the voicemail instructing the patient to call his referring physician's offic e for immediate further instructions and to seek emergent care if symptomatic. 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 SL: [id number] CHEM PANEL eGFR 54 09/19 Result Comment: The eGFR is calculated using the CKD-EPI formula. In most young, healthy individuals the eGFR will be >90 mL/ min/1.73m2. The eGFR declines with age. An eGFR of 60-89 may be normal in [place] mL/min/1.7 /2017 some populations, particularly the elderly, for whom the CKD-EPI formula has not been extensively validated. Use of the eGFR is not recommended in the following populations: Medical [facility] Individuals with unstable creatinine concentrations, including [...] AGAP 15.8 meq/L 10.0 - 09/[address] [facility] Comment: Medical Collection Center date/time has been modified to: 15:35:00. Previous collection date/time: 16:41:00. CHEM PANEL Calcium Lvl 9.9 mg/dL 8.5 - 10.5 09/19 Result Comment: Medical Collection Center date/time has been modified to: 15:35:00. Previous collection date/time: 16:41:00. CHEM PANEL CO2 27 meq/L 24 - 32 09/19 Result Comment: [facility] Collection Center date/time has been modified to: [...] 144 meq/L 135 - 145 09/[address] [facility] Comment: Medical Collection Center date/time has been modified to: 15:35:00. Previous collection date/time: 16:41:00. CHEM PANEL Creatinine 1.31 mg/dL 0.50 - 09/19 Result [facility] 1.40 Comment: Medical Collection Center date/time has been modified to: 15:35:00. Previous collection date/time: 16:41:00. CHEM PANEL Potassium 3.8 meq/L 3.5 - 5.1 09/19 Result [facility] Comment: Medical Collection Center date/time has been modified to: 15:35:00. Previous collection date/time: 16:41:00. Spine Spine Patient Name: IDANIA TERRY 08/11 - [facility] Thoracic wo Thoracic wo - [place] contrast contrast MRI : 1945; Age: 71 years y/o Male MRI MR: [id number] Read by: Brett Valente MD Dictated Date/time: [...] canal stenosis or neural foraminal narrowing. SL: [id number] Spine Spine Study: Spine cervical wo contrast MRI 08/11 - [facility] cervical wo cervical /2016 - [place] contrast contrast MRI MRI Clinical Indication: G95.9 [...] body of the cervical spinal cord. SL: [id number] Spine Spine lumbar EXAM: XR LUMBAR SPINE 3 VIEWS 07/20 - [facility] lumbar flex/ext - [place] flex/ext 2 view DX view DX DATE: [...] Date Comments Source Heart Rate 63 05/29/2017 [place] Temperature Oral (F) 97.8 F 05/29/2017 [place] Respitory Rate 18 05/29/2017 [place] Systolic (mm Hg) 145 05/29/2017 [place] Diastolic (mm Hg) 83 05/29/2017 [place] Respitory Rate 18 05/29/2017 [place] Heart Rate 64 05/29/2017 [place] Temperature Oral (F) 97.4 F 05/29/2017 [place] Systolic (mm Hg) 156 05/29/2017 [place] Diastolic (mm Hg) 86 05/29/2017 [place] Respitory Rate 18 05/29/2017 [place] Temperature Oral (F) 98 F 05/29/2017 [place] Heart Rate 59 05/29/2017 [place] Systolic (mm Hg) 158 05/29/2017 [place] Diastolic (mm Hg) 69 05/29/2017 [place] BMI Calculated 27.32 05/27/2017 [place] Height 177.8 cm 05/27/2017 [place] Weight 86.364 05/27/2017 [place] Weight 89.545 05/27/2017 [place] Weight 90.909 12/28/2016 [facility] BMI Calculated 28.76 12/28/2016 [facility] Height 177.8 cm 12/28/[facility] Heart [facility] 74 12/28/2016 [facility] Systolic (mm Hg) 163 12/28/2016 [facility] Diastolic (mm Hg) 82 12/28/2016 [facility] Temperature Oral (F) 97.8 F 12/28/2016 [facility] Heart Rate 89 09/24/2016 [facility] Temperature Oral (F) 97.5 F 09/24/2016 [facility] Respitory Rate 18 09/24/2016 [facility] Systolic (mm Hg) 176 09/24/2016 [facility] Diastolic (mm Hg) 83 09/24/2016 [facility] Heart Rate 84 09/24/2016 [facility] Systolic (mm Hg) 143 09/24/2016 [facility] Diastolic (mm Hg) 73 09/24/2016 [facility] Respitory Rate 17 09/24/2016 [facility] Temperature Oral (F) 98.5 F 09/24/2016 [facility] Temperature Oral (F) 98.1 F 09/24/2016 [facility] Systolic (mm Hg) 146 09/24/2016 [facility] Diastolic (mm Hg) 79 09/24/2016 [facility] Respitory Rate 18 09/24/2016 [facility] Heart Rate 70 09/24/2016 [facility] BMI Calculated 29.48 09/22/2016 [facility] Weight 93.182 09/22/2016 [facility] Height 177.8 cm 09/22/2016 [facility] Weight 90.455 09/19/2016 [facility] BMI Calculated 28.61 09/19/2016 [facility] Height 177.8 cm 09/19/2016 [facility] Encounters Location Location Encounter Encounter Reason Attending ADM DC Status Source Details Type Number For Provider Date Date Visit Outpatient [id number] TJ ALICIA 07/20 Active [facility] [id number] Tj Alicia 07/20 07/21 [facility] [id number] Tj Alicia 08/11 08/12 [facility] [place] [facility] [id number] TJ ALICIA 08/17 Active [facility] [id number] TJ ALICIA 09/19 [facility] [id number] TJ ALICIA 09/19 [facility] [id number] TJ ALICIA 09/22 [facility] [id number] Tj Alicia 09/22 09/24 [facility] Outpatient [id number] [place] 10/07 Active [facility] [id number] TJ ALICIA 11/14 Active [facility] Phone [id number] 12/23 12/25 [facility] Neuro [facility] Phone [phone] 12/26 12/28 [facility] Message Neuro Outpatient [id number] TJ ALICIA 12/28 [facility] [id number] Javi 12/28 12/29 [facility] 8 [facility] Outpt Diag [id number] Rufina 12/28 12/29 [facility] Phone [id number] 01/02 01/04 [facility] Message Neuro [facility] Sp[facility] Phone [phone] 01/03 01/05 [facility] TM Message Neuro [facility] Sp[facility] Phone [phone] 01/16 01/18 [facility] TM Message Neuro Outpatient [id number] TJ ALICIA 02/13 [facility] Ambulatory [id number] Javi 02/13 02/13 [facility] 7 [facility] Sp[facility] Phone [phone] 03/15 03/17 [facility] Message [facility] [id number] Chata 05/27 05/29 [place] [facility] [place] [place] Procedures Procedure Code Date Perfomer Comments Source Bladder [id number] 05/29/2017 [place] irrigation, simple, lavage and/or instillation Bladder 32264 05/28/2017 [place] irrigation, simple, lavage and/or instillation Bladder 31037 05/27/2017 [place] irrigation, simple, lavage and/or instillation Bladder operation [id number] [facility] [id number] [facility] [id number] [facility] Bladder operation [id number] [facility] [place] Drain[place] [id number] [facility] [place] Lymph node [id number] [facility] [place] Bladder operation [id number] [facility] [place] Drainage [id number] [facility] [place] Lymph node [id number] [facility] operation [place] Bladder operation [id number] [facility] Drainage [id number] [facility] Lymph node [id number] [facility] Bladder operation [id number] [facility] Drainage [id number] [facility] Lymph node [id number] [facility] [place] [facility] Bladder operation [id number] [place] Drainage [id number] [place] Lymph node [id number] [place] operation
--- OUTSIDE RECORDS SUMMARY | 2017-11-09 11:41 | XMS REPORT ---
:1945 Author Organization [facility] Address [address] [place] [address] Dr. Hernández [address] [place] [id number] Care Team Providers Name Role Phone YARELI GARCIA Unavailable Unavailable WILL FROST Unavailable Unavailable Problems This patient has no known problems. Allergies, Adverse Reactions, Alerts This patient has no known allergies or adverse reactions. Medications This patient has no known medications. Results Test Description Test Time Test Comments Text Results Atomic Results Result Comments TISSUE EXAM 2017-08-28 17:10:00 Surgical Pathology Report Case: [id number] Authorizing Provider: Yareli Garcia MD Collected: 08/25/2017 1030 Ordering Location: [facility] Received: 08/25/2017 1434 SERVICES [...] NOT PRESENT Signing Pathologist Direct Phone Line: [phone] signed by Nicolas Diaz MD on 08/28/2017 at 5:10 PMThe focus of invasion on specimen B. Is into the lamina propria of one papillary stalk and consists of on 3-4 tiny cell clusters. A. [id number]. 72592X. 86021W. 35867Tnwydzudb neoplasm of urinary bladder A. Bladder tumor [...] of bladder" consists of multiple fragments of lylse-pink soft tissue, ranging from 0.1 to 0.4 cm. Submitted D1. CG/pl Performed URINE CULTURE 2017-08-24 16:00:00 Test Item Value Reference Range Comments CULTURE (BEAKER) (test uhiu=3297) 50-59,000 col/mL skin eunice (CELLAVISION MANUAL DIFF)2017-08-23 20:07:00 Test Item Value Reference Range Comments NEUTROPHILS - REL (CELLAVISION)(BEAKER) (test 23 % ybid=8848) LYMPHOCYTES - REL (CELLAVISION)(BEAKER) (test 66 % hzae=1807) MONOCYTES - REL (CELLAVISION)(BEAKER) (test 2 % gcey=8095) EOSINOPHILS - REL (CELLAVISION)(BEAKER) (test 1 % uujd=7881) BASOPHILS - REL (CELLAVISION)(BEAKER) (test 1 % rtwi=8742) ATYPICAL LYMPHOCYTES - REL (CELLAVISION)(BEAKER) 6 % 0-0 (test byxd=8071) NEUTROPHILS - ABS (CELLAVISION)(BEAKER) (test 16.58 K/ul 1.78-5.38 pevh=6488) LYMPHOCYTES - ABS (CELLAVISION)(BEAKER) (test 47.59 K/ul 1.32-3.57 azcs=3354) MONOCYTES - ABS (CELLAVISION)(BEAKER) (test 1.44 K/uL 0.30-0.82 svkg=0019) EOSINOPHILS - ABS (CELLAVISION)(BEAKER) (test 0.72 K/uL 0.04-0.54 puit=7312) BASOPHILS - ABS (CELLAVISION)(BEAKER) (test 0.72 K/uL 0.01-0.08 wbpc=7056) ATYPICAL LYMPHOCYTES - ABS (CELLAVISION)(BEAKER) 4.33 K/uL 0.00-0.00 (test qpqe=0007) TOTAL COUNTED (BEAKER) (test uquf=6800) 100 PLT MORPHOLOGY (BEAKER) (test qhob=720) Normal SMUDGE CELLS (BEAKER) (test lify=5239) Present POLYCHROMATOPHILLIC RBCS(BEAKER) (test utcf=831) 1+ few HYPOCHROMIA (BEAKER) (test ywpv=232) 1+ few ANISOCYTOSIS (BEAKER) (test leay=277) 2+ moderate MICROCYTES (BEAKER) (test jfbx=957) 2+ moderate POIKILOCYTES (BEAKER) (test luon=097) 1+ few ARTIFACT (CELLAVISION)(BEAKER) (test egua=3323) Present PLATELET CONCENTRATION (CELLAVISION)(BEAKER) Adequate (test fbpf=7765) Received comment: User comments: Slide comments:CBC W/PLT COUNT & AUTO [id number] 20:06:00 Test Item Value Reference Range Comments WHITE BLOOD CELL COUNT (BEAKER) (test mjtk=482) 72.1 K/ L 3.5-10.5 RED BLOOD CELL COUNT (BEAKER) (test ezds=815) 4.97 M/ L 4.63-6.08 HEMOGLOBIN (BEAKER) (test rsgb=206) 13.1 GM/DL 13.7-17.5 HEMATOCRIT (BEAKER) (test rmht=545) 42.1 % 40.1-51.0 MEAN CORPUSCULAR VOLUME (BEAKER) (test yyfu=103) 84.7 fL 79.0-92.2 MEAN CORPUSCULAR HEMOGLOBIN (BEAKER) (test 26.4 pg 25.7-32.2 cagr=271) MEAN CORPUSCULAR HEMOGLOBIN CONC (BEAKER) (test 31.1 GM/DL 32.3-36.5 mxlf=435) RED CELL DISTRIBUTION WIDTH (BEAKER) (test 14.5 % 11.6-14.4 yolj=326) PLATELET COUNT (BEAKER) (test rwai=730) 247 K/CU MM 150-450 MEAN PLATELET VOLUME (BEAKER) (test ljkq=224) 10.6 fL 9.4-12.4 NUCLEATED RED BLOOD CELLS (BEAKER) (test 0 /100 WBC 0-0 ownp=529) RAD, CHEST, 2 [id number] 16:22:00Reason for Exam:->bladder cancer, pre- op testingFINAL [...] no acute cardiopulmonary abnormality. Signed: Brett Valente MDR[facility] Verified Date/Time: 08/23/2017 16:22:14 Reading Location: [address] Reading Room Electronically signed by: BRETT VALENTE MD on 04:22 [facility] [id number] 16:10:00 Test Item Value Reference Range Comments SODIUM (BEAKER) (test 140 meq/L 136-145 obrz=823) POTASSIUM (BEAKER) (test 3.9 meq/L 3.5-5.1 ohtc=313) CHLORIDE (BEAKER) (test 104 meq/L 98-107 iflo=543) CO2 (BEAKER) (test 25 meq/L 22-29 wvwa=563) BLOOD UREA NITROGEN 29 mg/dL 7-21 (BEAKER) (test hlwr=182) CREATININE (BEAKER) (test 1.59 mg/dL 0.57-1.25 fsge=390) GLUCOSE RANDOM (BEAKER) 80 mg/dL 70-105 (test subg=118) CALCIUM (BEAKER) (test 9.8 mg/dL 8.4-10.2 wdmv=459) EGFR (BEAKER) (test 43 mL/min/1.73 sq m ESTIMATED GFR IS NOT exma=5817) ACCURATE CREATININE CLEARANCE IN PREDICTING GLOMERULAR FILTRATION RATE. ESTIMATED GFR IS NOT APPLICABLE FOR DIALYSIS PATIENTS. URINALYSIS W/ [id number] 16:01:00 Test Item Value Reference Range Comments COLOR (BEAKER) (test ynpp=551) Light Yellow CLARITY (BEAKER) (test ofiw=112) Clear SPECIFIC GRAVITY UA (BEAKER) (test oiwi=791) 1.012 1.001-1.035 PH UA (BEAKER) (test qfbq=206) 7.0 5.0-8.0 PROTEIN UA (BEAKER) (test yktt=579) 50 mg/dL Negative GLUCOSE UA (BEAKER) (test exmb=426) Negative Negative KETONES UA (BEAKER) (test uipl=311) Negative Negative BILIRUBIN UA (BEAKER) (test jtlv=034) Negative Negative BLOOD UA (BEAKER) (test tccq=123) Negative Negative NITRITE UA (BEAKER) (test wqfi=329) Negative Negative LEUKOCYTE ESTERASE UA (BEAKER) (test wxox=812) Negative Negative UROBILINOGEN UA (BEAKER) (test vwjr=001) 0.2 mg/dL 0.2-1.0 RBC UA (BEAKER) (test sxmz=753) 1 /HPF WBC UA (BEAKER) (test fhqj=062) < /HPF MUCUS (BEAKER) (test faaa=9552) Rare SOURCE(BEAKER) (test svot=8487) [id number] 15:55:00 Test Item Value Reference Range Comments PARTIAL THROMBOPLASTIN TIME (BEAKER) (test 31.6 seconds 22.5-36.0 serr=567) PROTHROMBIN TIME/[id number] 15:54:00 Test Item Value Reference Range Comments PROTIME (BEAKER) (test itzf=692) 14.8 seconds 11.7-14.7 INR (BEAKER) (test swhy=061) 1.2 <=5.9 RECOMMENDED COUMADIN/WARFARIN INR THERAPY RANGESSTANDARD DOSE: 2.0 - 3.0 Includes: PROPHYLAXIS forvenous thrombosis, systemic embolization; TREATMENT for venous thrombosis and/or pulmonary embolus.HIGH RISK: Target INR is 2.5-3.5 for patients with mechanical heart valves.HEMOGLOBIN [id number] 11:52:00 Test Item Value Reference Range Comments HEMOGLOBIN A1C (BEAKER) (test khfc=400) 6.9 % 4.3-6.1 [id number] 11:12:00 Test Item Value Reference Range Comments RPR SCREEN (BEAKER) (test tyzt=419) Nonreactive Nonreactive CBC W/PLT COUNT & AUTO [id number] 10:31:00 Test Item Value Reference Range Comments WHITE BLOOD CELL COUNT (BEAKER) (test djlw=695) 23.5 K/ L 3.5-10.5 RED BLOOD CELL COUNT (BEAKER) (test prhb=394) 3.90 M/ L 4.63-6.08 HEMOGLOBIN (BEAKER) (test vuzq=375) 11.0 GM/DL 13.7-17.5 HEMATOCRIT (BEAKER) (test tdwy=661) 34.6 % 40.1-51.0 MEAN CORPUSCULAR VOLUME (BEAKER) (test wbqb=515) 88.7 fL 79.0-92.2 MEAN CORPUSCULAR HEMOGLOBIN (BEAKER) (test 28.2 pg 25.7-32.2 lxtr=069) MEAN CORPUSCULAR HEMOGLOBIN CONC (BEAKER) (test 31.8 GM/DL 32.3-36.5 rjad=248) RED CELL DISTRIBUTION WIDTH (BEAKER) (test 14.2 % 11.6-14.4 nsiq=328) PLATELET COUNT (BEAKER) (test sngo=481) 230 K/CU MM 150-450 MEAN PLATELET VOLUME (BEAKER) (test czbi=001) 10.6 fL 9.4-12.4 NUCLEATED RED BLOOD CELLS (BEAKER) (test 0 /100 WBC 0-0 uuvl=148) NEUTROPHILS RELATIVE PERCENT (BEAKER) (test 32 % qufd=668) LYMPHOCYTES RELATIVE PERCENT (BEAKER) (test 64 % idyg=065) MONOCYTES RELATIVE PERCENT (BEAKER) (test 3 % vieu=179) EOSINOPHILS RELATIVE PERCENT (BEAKER) (test 0 % brgl=099) BASOPHILS RELATIVE PERCENT (BEAKER) (test 0 % bfpa=991) NEUTROPHILS ABSOLUTE COUNT (BEAKER) (test 7.57 K/ L 1.78-5.38 verk=872) LYMPHOCYTES ABSOLUTE COUNT (BEAKER) (test 15.04 K/ L 1.32-3.57 oeuu=818) MONOCYTES ABSOLUTE COUNT (BEAKER) (test 0.68 K/ L 0.30-0.82 asha=967) EOSINOPHILS ABSOLUTE COUNT (BEAKER) (test 0.03 K/ L 0.04-0.54 thby=321) BASOPHILS ABSOLUTE COUNT (BEAKER) (test 0.08 K/ L 0.01-0.08 tlkn=269) IMMATURE GRANULOCYTES-RELATIVE PERCENT (BEAKER) 0 % 0-1 (test dvzx=9854) (MANUAL DIFFERENTIAL)2017-01-29 10:31:00 Test Item Value Reference Range Comments TOTAL COUNTED (BEAKER) (test cuhv=9413) PLT MORPHOLOGY (BEAKER) (test vlcb=182) Normal RBC MORPHOLOGY (BEAKER) (test ctig=575) Normal ATYPICAL LYMPHS(BEAKER) (test nvrj=9586) Present SMUDGE CELLS (BEAKER) (test drti=4139) Present VITAMIN [id number] 08:02:00 Test Item Value Reference Range Comments VITAMIN B12 (BEAKER) (test lvyu=113) 346 pg/mL 213-816 TSH/FREE T4 IF [id number] 08:02:00 Test Item Value Reference Range Comments THYROID STIMULATING HORMONE (BEAKER) (test 1.37 uIU/mL 0.35-4.94 unyr=232) CREATINE KINASE (CK), TOTAL AND [id number] 07:55:00 Test Item Value Reference Range Comments CREATINE KINASE TOTAL (BEAKER) (test heuu=259) 72 U/L 29-200 CREATINE KINASE-MB (BEAKER) (test gvii=445) 0.5 ng/mL 0.0-6.6 CREATINE KINASE-MB INDEX (BEAKER) (test owww=263) 0.7 % CK-MB Reference Range:<6.7 Normal6.7-10.0 Borderline>10.0 AbnormalTROPONIN [id number] 07:55:00 Test Item Value Reference Range Comments TROPONIN I (BEAKER) (test bnks=034) 0.02 ng/mL 0.00-0.03 Troponin I (TnI) levels [...] acidosis, acute neurological disease, and persistent tachyarrhythmia.LIPID [id number] 07:39:00 Test Item Value Reference Range Comments TRIGLYCERIDES (BEAKER) (test tnjb=289) 175 mg/dL CHOLESTEROL (BEAKER) (test xerk=442) 104 mg/dL HDL CHOLESTEROL (BEAKER) (test nkda=464) 21 mg/dL LDL CHOLESTEROL CALCULATED (BEAKER) (test 48 mg/dL jzcv=140) Triglyceride Reference Range: Low Risk <150 Borderline 150- 199 High Risk 200-499 Very High Risk >=500Cholesterol Reference Range: Low Risk <200 Borderline 200-239 High Risk > 240HDL Cholesterol Reference Range: Low Risk >=60 High Risk <40LDL Cholesterol Reference Range: Optimal <100 Near Optimal 100-129 Borderline 130-159 High 160-189 Very High >=190BASIC METABOLIC [id number] 07:39:00 Test Item Value Reference Range Comments SODIUM (BEAKER) (test 141 meq/L 136-145 ogmd=766) POTASSIUM (BEAKER) (test 3.7 meq/L 3.5-5.1 kwed=556) CHLORIDE (BEAKER) (test 108 meq/L 98-107 lhrm=750) CO2 (BEAKER) (test 23 meq/L 22-29 fbbl=265) BLOOD UREA NITROGEN 20 mg/dL 7-21 (BEAKER) (test zdjv=178) CREATININE (BEAKER) (test 1.41 mg/dL 0.57-1.25 russ=695) GLUCOSE RANDOM (BEAKER) 111 mg/dL 70-105 (test bqqc=369) CALCIUM (BEAKER) (test 9.3 mg/dL 8.4-10.2 dvcq=863) EGFR (BEAKER) (test 49 mL/min/1.73 sq m ESTIMATED GFR IS NOT nsux=6371) ACCURATE CREATININE CLEARANCE IN PREDICTING GLOMERULAR FILTRATION RATE. ESTIMATED GFR IS NOT APPLICABLE FOR DIALYSIS PATIENTS. MR, MRA, BRAIN, WITHOUT [id number] 04:30:00Reason for exam:-> Ischemic Stroke EvaluationFINAL REPORT [...] MDReport Verified Date/Time: 01/29/2017 04:30:36 Reading Location: [facility] C013X [facility] Consult Reading Room Electronically signed by: ZELALEM MACIEL MD on 2016 04:30 AMMR, MRA, NECK, WITHOUT IV [id number] 04:30:00Reason for exam:->Ischemic Stroke EvaluationFINAL REPORT MR, [...] Verified Date/Time: 01/29/2017 04 :30:36 Reading Location: [address] Reading Room MR, BRAIN, WITHOUT [id number] 04:30:00Reason for exam:->Ischemic Stroke EvaluationFINAL REPORT MR, [...] MDReport Verified Date/Time: 01/29/2017 04:30:36 Reading Location: [facility] C[address] [facility] Reading Room Electronically signed by: ZELALEM MACIEL MD on 2016 04:30 AM
[2017-11-09] MEDS ORDERED: NA CHLORIDE 0.9% 1,000 ML ONE (12:13)
[2017-11-09] MEDS ORDERED: METOPROLOL TAR 25 MG TAB ONE ×2 (12:18→13:15)
[2017-11-09] MEDS ORDERED: METOPROLOL TARTRATE 5 MG/5 ML INJ IV ONE (12:18)
[2017-11-09 12:25] LABS: Absolute Lymphocytes (CBC) 62.5 K/uL (0.7-4.9); Absolute Neutrophil 9.5 K/uL (1.8-8.0); Basophils % 0.1 % (0-1.3); Eosinophils % 0.7 % (0-4.4); Hematocrit 39.8 % (39.6-49.0); Lymphocytes % 84.9 % (15.3-44.8); MCH 27.7 pg (27.0-35.0); MCV 84.6 fL (80-100); MPV 8.7 fL (7.6-11.3); Monocytes % 1.4 % (3.3-12.3); Protime INR 1.19
--- NOTE | 2017-11-09 12:25 | RAD REPORT ---
EXAM DESCRIPTION: RAD - Chest Single View - 11/09/2017 12:20 pm CLINICAL HISTORY: CONGESTION Chest pain. COMPARISON: Chest Single View dated 09/03/2017; Chest Single View dated 01/28/2017; Chest Single View dated 01/12/2017; Chest Single View dated 01/11/2017 FINDINGS: Portable technique limits examination quality. The lungs are grossly clear. Small left pleural effusion. Cardiac size mildly prominent. IMPRESSION: Small left pleural.
[2017-11-09 12:45] LABS: ALT/SGPT 18 U/L (12-78); AST/SGOT 15 U/L (15-37); Albumin 3.8 g/dL (3.4-5.0); Alkaline Phosphatase 100 U/L (45-117); BUN Blood Urea Nitrogen 24 mg/dL (7-18); Bicarbonate 25 mmol/L (21-32); Bilirubin Direct < 0.1 mg/dL (0-0.2); Bilirubin Total 0.4 mg/dL (0.2-1.0); Glucose Level 111 mg/dL (74-106); Magnesium 2.4 mg/dL (1.8-2.4); NT PRO-BNP 884 pg/mL (<125); Potassium 4.3 mmol/L (3.5-5.1); Protein, Total 6.7 g/dL (6.4-8.2); Sodium Level 143 mmol/L (136-145); Troponin (Emerg Dept Use Only) < 0.02 ng/mL (0.0-0.045)
[2017-11-09 12:51] LABS: Blood Morphology Comment NOT SEEN (NOT SEEN); Platelet Estimate ADEQ
--- NOTE | 2017-11-09 15:29 | ER ---
Nurse's Notes [facility] Name: Duke Marin III Age: 72 yrs Sex: Male : 1945 Arrival Date: 11/09/2017 Time: 11:39 Bed 6 Private MD: Javi Looney Diagnosis: Tachycardia, unspecified-resolved;Acute sinusitis Presentation: 11/09 11:55 Onset of symptoms was October 2017. aa5 11:55 Acuity: PARAG 2 aa5 11:55 Presenting complaint: Patient states: sinus pressure and sinus congestion that began 1 aa5 week ago. Pt states "It's just hard to breathe through my nose". Pt denies cough, denies pain. Transition of care: patient was not received from another setting of care. 11:55 Method Of Arrival: Wheelchair aa5 11:57 Risk Assessment: Do you want to hurt yourself or someone else? Patient reports no hj desire to harm self or others. Initial Sepsis Screen: Does the patient meet any 2 criteria? No. Patient's initial sepsis screen is negative. Does the patient have a suspected source of infection? No. Patient's initial sepsis screen is negative. Care prior to arrival: None. Triage Assessment: 12:01 General: Appears in no apparent distress. uncomfortable, Behavior is calm, cooperative, hj appropriate for age. Pain: Complains of pain in sinus. Historical: - Allergies: 11:55 Pseudoephedrine; aa5 - Home Meds: 13:10 aspirin 81 mg Oral chew [Active]; Bystolic Oral [Active]; Crestor 10 mg Oral tab 1 tab hj once daily [Active]; Plavix 75 mg Oral tab 1 tab once daily [Active]; Procardia Oral daily [Active]; valsartan Oral [Active]; - PMHx: 11:55 Atrial Fib; Bladder cancer; CLL; CVA; enlarged aorta; SVT; Hypertension; aa5 - PSHx: 11:55 Bladder resection; aa5 - Immunization history:: Pneumococcal vaccine is up to date, Flu vaccine is up to date. - Ebola Screening: : No symptoms or risks identified at this time. - Social history:: Smoking status: Patient/guardian denies using tobacco, Patient/guardian denies using alcohol. Screenin:56 Abuse screen: Denies threats or abuse. Denies injuries from another. Nutritional hj screening: No deficits noted. Tuberculosis screening: No symptoms or risk factors identified. Fall Risk None identified. Assessment: 11:45 General: Appears in no apparent distress. comfortable, Behavior is calm, cooperative, bp appropriate for age. Pain: Denies pain. Neuro: Level of Consciousness is awake, alert, obeys commands, Oriented to person, place, time, situation, Appropriate for age. Cardiovascular: Rhythm is sinus tachycardia. Respiratory: Airway is patent Respiratory effort is even, unlabored, Respiratory pattern is regular, symmetrical. GI: No signs and/or symptoms were reported involving the gastrointestinal system. : No signs and/or symptoms were reported regarding the genitourinary system. EENT: Reports nasal congestion. Derm: No deficits noted. Musculoskeletal: Circulation, motion, and sensation intact. Range of motion: intact in all extremities. 12:15 Reassessment: ALL CURRENT ORDERS COMPLETED, RESULTS PENDING. bp 13:43 Reassessment: Patient and/or family updated on plan of care and expected duration. Pain hj level reassessed. Patient is alert, oriented x 3, equal unlabored respirations, skin warm/dry/pink. no further concerns; V/S updated;. 14:04 Reassessment: Patient and/or family updated on plan of care and expected duration. Pain hj level reassessed. Patient is alert, oriented x 3, equal unlabored respirations, skin warm/dry/pink. HR is 65 from 125; provider notified; ordered stat EKG;. 14:46 Reassessment: Patient and/or family updated on plan of care and expected duration. Pain hj level reassessed. Patient is alert, oriented x 3, equal unlabored respirations, skin warm/dry/pink. Patient states feeling better. Patient states symptoms have improved. Vital Signs: 11:55 BP 114 / 94; Pulse 140; Resp 18 S; Temp 97.6(TE); Pulse Ox 97% on R/A; Weight 89.36 kg aa5 (R); Height 5 ft. 10 in. (177.80 cm) (R); Pain 0/10; 12:02 BP 111 / 81; Pulse 137; Resp 18; Temp 98.1(TE); Pulse Ox 96% on R/A; Weight 89.36 kg; hj Height 5 ft. 10 in. (177.80 cm); Pain 0/10; 12:15 BP 97 / 76; Pulse 134; Resp 17; Pulse Ox 96% ; bp 12:56 BP 119 / 81; Pulse 129; Resp 18; Pulse Ox 98% on R/A; hj 13:43 BP 100 / 78; Pulse 125; Resp 18; Pulse Ox 98% on R/A; hj 13:58 BP 101 / 79; Pulse 60; Resp 18; Pulse Ox 100% on R/A; hj 14:46 BP 117 / 76; Pulse 63; Resp 18; Pulse Ox 98% on R/A; hj 15:10 BP 130 / 76; Pulse 61; Resp 18; Pulse Ox 99% on R/A; hj 12:02 Body Mass Index 28.27 (89.36 kg, 177.80 cm) hj ED Course: 11:39 Patient arrived in ED. mr 11:39 Javi Looney MD is Private Physician. mr 11:43 Apple Meehan [facility]C [facility] kb 11:43 Isidro Wilburn MD is Attending Physician. kb 11:53 Bruno Ponce, CHRISTOPHER is Primary Nurse. hj 11:57 Arm band placed on right wrist. hj 12:00 Triage completed. aa5 12:00 Inserted saline lock: 20 gauge in right forearm, using aseptic technique. Blood bp collected. 12:01 Patient has correct armband on for positive identification. Bed in low position. Call hj light in reach. Side rails up X2. Adult w/ patient. 12:18 X-ray completed. Portable x-ray completed in exam room. Patient tolerated procedure ml well. 12:19 XRAY Chest (1 view) In Process Unspecified. EDMS 12:28 Notified Nurse Practitioner and/or Physician Telegraphic Typewriter Operator Chief of a critical lab result(s), iw WBC=73.6. 14:07 EKG done, by retread technician. reviewed by Apple HERNANDEZ Repeat EKG. at1 15:28 Javi Looeny MD is Referral Physician. kb 15:54 No provider procedures requiring assistance completed. IV discontinued, intact, hj bleeding controlled, No redness/swelling at site. Pressure dressing applied. Administered Medications: 12:15 Drug: Lopressor 25 mg Route: PO; bp 13:11 Follow up: Response: No adverse reaction hj 12:15 Drug: Lopressor 2.5 mg Route: IVP; Site: right forearm; bp 13:11 Follow up: Response: No adverse reaction hj 13:02 Drug: Lopressor 25 mg Route: PO; hj 13:10 Follow up: Response: No adverse reaction; Other hj 13:07 Drug: NS 0.9% 1000 ml Route: IV; Rate: 1 bolus; Site: right antecubital; hj 13:10 Follow up: IV Status: Completed infusion; IV Intake: 1000ml hj 15:21 Drug: Augmentin 875 mg Route: PO; hj 15:55 Follow up: Response: No adverse reaction hj Intake: 13:10 IV: 1000ml; Total: 1000ml. hj Outcome: 15:28 Discharge ordered by MD. kb 15:54 Discharged to home ambulatory, with family. hj 15:54 Condition: stable 15:54 Discharge instructions given to patient, family, Instructed on discharge instructions, follow up and referral plans. medication usage, Demonstrated understanding of instructions, follow-up care, medications, Prescriptions given X 1. 15:55 Patient left the ED. Signatures: Dispatcher [employer] EDMS Apple Meehan, FANCY WIRE DRAWER-C FANCY WIRE DRAWER-Ckb Nydia Hinkle Irene, RN Janie Fernando Audri, RN RN aa5 Thea Mcdonald, heel seat laster EKG Tat1 Bruno Ponce RN RN Peter Oquendo, RN RN bp Corrections: (The following items were deleted from the chart) 12:01 11:55 Presenting complaint: Patient states: sinus pressure and sinus congestion that aa5 began 1 week ago. Pt denies cough, denies pain. aa5
--- NOTE | 2017-11-09 15:29 | EDPHYS ---
Physician Documentation [facility] Name: Duke Marin III Age: 72 yrs Sex: Male : 1945 Arrival Date: 11/09/2017 Time: 11:39 Bed 6 Private MD: Javi Looney ED Physician Isidro Wilburn HPI: 11/09 13:10 This 72 yrs old Male presents to ER via Wheelchair with complaints of Sinus kb Congestion. 13:10 The patient or guardian reports sinus congestion. Onset: The symptoms/episode kb began/occurred 1 week(s) ago. Severity of symptoms: At their worst the symptoms were moderate, in the emergency department the symptoms are unchanged. Modifying factors: The symptoms are alleviated by nothing, the symptoms are aggravated by nothing. Associated signs and symptoms: The patient has no apparent associated signs or symptoms. The patient has experienced similar episodes in the past, chronically. The patient has not recently seen a physician. Pt c/o sinus congestion only. Denies fever, shortness of breath, chest pain, palpitations. Educated on need for workup due to heart rate. Pt reports his WBC will be high due to CLL, last WBC result was 72.. Historical: - Allergies: 11:55 Pseudoephedrine; aa5 - Home Meds: 13:10 aspirin 81 mg Oral chew [Active]; Bystolic Oral [Active]; Crestor 10 mg Oral tab 1 tab hj once daily [Active]; Plavix 75 mg Oral tab 1 tab once daily [Active]; Procardia Oral daily [Active]; valsartan Oral [Active]; - PMHx: 11:55 Atrial Fib; Bladder cancer; CLL; CVA; enlarged aorta; SVT; Hypertension; aa5 - PSHx: 11:55 Bladder resection; aa5 - Immunization history:: Pneumococcal vaccine is up to date, Flu vaccine is up to date. - Ebola Screening: : No symptoms or risks identified at this time. - Social history:: Smoking status: Patient/guardian denies using tobacco, Patient/guardian denies using alcohol. ROS: 13:10 Constitutional: Negative for fever, chills, and weight loss, Neck: Negative for injury, kb pain, and swelling, Cardiovascular: Negative for chest pain, palpitations, and edema, Respiratory: Negative for shortness of breath, cough, wheezing, and pleuritic chest pain, Abdomen/GI: Negative for abdominal pain, nausea, vomiting, diarrhea, and constipation, MS/Extremity: Negative for injury and deformity, Skin: Negative for injury, rash, and discoloration, Neuro: Negative for headache, weakness, numbness, tingling, and seizure. 13:10 ENT: Positive for sinus congestion. Exam: 13:10 Constitutional: This is a well developed, well nourished patient who is awake, alert, kb and in no acute distress. Head/Face: Normocephalic, atraumatic. ENT: Nares patent. No nasal discharge, no septal abnormalities noted. Tympanic membranes are normal and external auditory canals are clear. Oropharynx with no redness, swelling, or masses, exudates, or evidence of obstruction, uvula midline. Mucous membranes moist. Neck: Trachea midline, no thyromegaly or masses palpated, and no cervical lymphadenopathy. Supple, full range of motion without nuchal rigidity, or vertebral point tenderness. No Meningismus. Chest/axilla: Normal chest wall appearance and motion. Nontender with no deformity. No lesions are appreciated. Respiratory: Lungs have equal breath sounds bilaterally, clear to auscultation and percussion. No rales, rhonchi or wheezes noted. No increased work of breathing, no retractions or nasal flaring. Abdomen/GI: Soft, non-tender, with normal bowel sounds. No distension or tympany. No guarding or rebound. No evidence of tenderness throughout. Skin: Warm, dry with normal turgor. Normal color with no rashes, no lesions, and no evidence of cellulitis. MS/ Extremity: Pulses equal, no cyanosis. Neurovascular intact. Full, normal range of motion. Neuro: Awake and alert, GCS 15, oriented to person, place, time, and situation. Cranial nerves II-XII grossly intact. Motor strength 5/5 in all extremities. Sensory grossly intact. Cerebellar exam normal. Normal gait. 13:10 Cardiovascular: Rate: tachycardic, actual rate is 139 bpm, Rhythm: regular, Pulses: no pulse deficits are appreciated, Heart sounds: normal, Edema: is not appreciated. Vital Signs: 11:55 BP 114 / 94; Pulse 140; Resp 18 S; Temp 97.6(TE); Pulse Ox 97% on R/A; Weight 89.36 kg aa5 (R); Height 5 ft. 10 in. (177.80 cm) (R); Pain 0/10; 12:02 BP 111 / 81; Pulse 137; Resp 18; Temp 98.1(TE); Pulse Ox 96% on R/A; Weight 89.36 kg; hj Height 5 ft. 10 in. (177.80 cm); Pain 0/10; 12:15 BP 97 / 76; Pulse 134; Resp 17; Pulse Ox 96% ; bp 12:56 BP 119 / 81; Pulse 129; Resp 18; Pulse Ox 98% on R/A; hj 13:43 BP 100 / 78; Pulse 125; Resp 18; Pulse Ox 98% on R/A; hj 13:58 BP 101 / 79; Pulse 60; Resp 18; Pulse Ox 100% on R/A; hj 14:46 BP 117 / 76; Pulse 63; Resp 18; Pulse Ox 98% on R/A; hj 15:10 BP 130 / 76; Pulse 61; Resp 18; Pulse Ox 99% on R/A; hj 12:02 Body Mass Index 28.27 (89.36 kg, 177.80 cm) hj MDM: 11:56 Patient medically screened. kb 13:10 Data reviewed: vital signs, nurses notes. Data interpreted: Pulse oximetry: on room air kb is 98 %. Interpretation: normal. 15:27 Counseling: I had a detailed discussion with the patient and/or guardian regarding: the kb historical points, exam findings, and any diagnostic results supporting the discharge/admit diagnosis, lab results, radiology results, the need for outpatient follow up, a family practitioner, to return to the emergency department if symptoms worsen or persist or if there are any questions or concerns that arise at home. 11/09 12:04 Order name: Basic Metabolic Panel; Complete Time: 12:46 11/09 12:04 Order name: CBC with Diff; Complete Time: 12:54 11/09 12:04 Order name: LFT's; Complete Time: 12:46 11/09 12:04 Order name: Magnesium; Complete Time: 12:46 11/09 12:04 Order name: NT PRO-BNP; Complete Time: 12:46 11/09 12:04 Order name: PT-INR; Complete Time: 12:33 11/09 12:04 Order name: Troponin (emerg Dept Use Only); Complete Time: 12:46 hj 11/09 12:04 Order name: XRAY Chest (1 view); Complete Time: 12:28 hj 11/09 12:29 Order name: Manual Differential; Complete Time: 12:54 EDMS 11/09 12:04 Order name: EKG; Complete Time: 12:05 hj 11/09 12:04 Order name: Cardiac monitoring; Complete Time: 12:04 hj 11/09 12:04 Order name: EKG - Nurse/Tech; Complete Time: 12:05 hj 11/09 12:04 Order name: IV Saline Lock; Complete Time: 12:05 hj 11/09 12:04 Order name: Labs collected and sent; Complete Time: 12:05 hj 11/09 12:04 Order name: O2 Per Protocol; Complete Time: 12:05 hj 11/09 12:04 Order name: O2 Sat Monitoring; Complete Time: 12:05 hj 11/09 14:03 Order name: EKG; Complete Time: 14:03 bp 11/09 14:03 Order name: EKG - Nurse/Tech; Complete Time: 14:03 bp Administered Medications: 12:15 Drug: Lopressor 25 mg Route: PO; bp 13:11 Follow up: Response: No adverse reaction hj 12:15 Drug: Lopressor 2.5 mg Route: IVP; Site: right forearm; bp 13:11 Follow up: Response: No adverse reaction hj 13:02 Drug: Lopressor 25 mg Route: PO; hj 13:10 Follow up: Response: No adverse reaction; Other hj 13:07 Drug: NS 0.9% 1000 ml Route: IV; Rate: 1 bolus; Site: right antecubital; hj 13:10 Follow up: IV Status: Completed infusion; IV Intake: 1000ml hj 15:21 Drug: Augmentin 875 mg Route: PO; hj 15:55 Follow up: Response: No adverse reaction hj Disposition: 17:53 Co-signature as Attending Physician, Isidro Wilburn MD. rn Disposition: 11/09/17 15:28 Discharged to Home. Impression: Tachycardia, unspecified - resolved, Acute sinusitis. - Condition is Stable. - Discharge Instructions: Sinusitis, Adult, [id number]. - Prescriptions for Augmentin 875- 125 mg Oral Tablet - take 1 tablet by ORAL route every 12 hours for 7 days; 14 tablet. - Medication Reconciliation Form, Thank You Letter, Antibiotic Education, Prescription Opioid Use form. - Follow up: Emergency Department; When: As needed; Reason: Worsening of condition. Follow up: Javi Looney MD; When: 2 - 3 days; Reason: Recheck today's complaints, Continuance of care, Re-evaluation by your physician. Signatures: Dispatcher [employer] EDPR Apple Meehan, TELEMARKETER-C TELEMARKETER-Ckb Isidro Wilburn MD MD rn Calderon, Audri, RN RN aa5 Bruno Ponce RN RN Peter Oquendo RN RN bp Corrections: (The following items were deleted from the chart) 15:55 15:28 11/09/2017 15:28 Discharged to Home. Impression: Tachycardia, unspecified - hj resolved; Acute sinusitis. Condition is Stable. Forms are Medication Reconciliation Form, Thank You Letter, Antibiotic Education, Prescription Opioid Use. Follow up: Emergency Department; When: As needed; Reason: Worsening of condition. Follow up: Javi Looney; When: 2 - 3 days; Reason: Recheck today's complaints, Continuance of care, Re-evaluation by your physician. kb
[2017-11-09] MEDS ORDERED: AMOX/K CLAV 875 MG TAB ONE (15:32)
[2017-11-09 16:19] VITALS: TEMP 98.1
[2017-11-09 16:26] VITALS: BP 130/76; O2SAT 99
--- NOTE | 2017-11-09 16:45 | EKG ---
Test Date: 2017-11-09 Test Time: 14:05:46 Bond Underwriter: SARY MEASUREMENT RESULTS: Intervals: Rate: 60 WA: 206 QRSD: 90 QT: 474 QTc: 474 [place]: P: 22 WA: 206 QRS: -21 T: 97 INTERPRETIVE STATEMENTS: Sinus rhythm with occasional premature ventricular complexes Minimal voltage criteria for LVH, may be normal variant Abnormal QRS-T angle, consider primary T wave abnormality Prolonged QT Abnormal ECG Compared to ECG 11/09/2017 12:10:31 Ventricular premature complex(es) now present Left ventricular hypertrophy now present T-wave abnormality now present Prolonged QT interval now present Supraventricular tachycardia no longer present ST (T wave) deviation no longer present Electronically Signed On 11-09-17 16:44:22 CDT by Samuel Colon
--- NOTE | 2017-11-09 16:46 | EKG ---
Test Date: 2017-11-09 Test Time: 12:10:31 Kettle Room Helper: KAT MEASUREMENT RESULTS: Intervals: Rate: 135 MS: QRSD: 94 QT: 344 QTc: 516 [place]: P: MS: QRS: -14 T: 84 INTERPRETIVE STATEMENTS: Supraventricular tachycardia Nonspecific ST abnormality Abnormal ECG Compared to ECG 09/03/2017 04:17:23 ST (T wave) deviation now present Sinus bradycardia no longer present First degree AV block no longer present Left ventricular hypertrophy no longer present Early repolarization no longer present Electronically Signed On 11-09-17 16:44:30 CDT by Samuel Colon
== END 2017-11-09 15:55 | disposition home or self-care (01) ==
LOC: ER 11:36
DX: R00.0 Tachycardia, unspecified (principal); J01.90 Acute sinusitis, unspecified; I48.91 Unspecified atrial fibrillation; I10 Essential (primary) hypertension; Z86.73 Personal history of transient ischemic attack (TIA), and cerebral infarction without residual deficits; Z88.8 Allergy status to other drugs, medicaments and biological substances
CPT/HCPCS: 36415; 71045; 80048; 80076; 83735; 83880; 84484; 85025; 85610; 93005 ×2; 96374; 99284; J7030

== ENCOUNTER 2017-12-10 02:23 | Emergency (ER) | payer OTHER ==
--- OUTSIDE RECORDS SUMMARY | 2017-12-10 02:26 | XMS REPORT | Clinical Summary ---
:1945 Author Organization [facility] Address [address] [place] [address] Care Team Providers Name Role Phone Vania Looneyey Primary Care Provider Allergies Active Allergy Reactions Severity Noted Date Comments Clonidine High 01/28/2017 Makes him extremely depressed Coconut Swelling 01/29/2017 Lip and tongue swelling Pseudoephedrine Other (See Comments) 01/28/2017 Irregular heart beat Medications Medication Sig Dispensed Refills Start Date End Date Status nebivolol (BYSTOLIC) Take 10 mg by 0 Active 10 MG tablet mouth daily. dilTIAZem (CARDIZEM Take 240 mg by 0 Active CD) 240 MG 24 hr mouth daily. capsule rosuvastatin Take 10 mg by 0 Active (CRESTOR) 10 MG mouth daily At tablet bedtime . clopidogrel (PLAVIX) Take 75 mg by 0 Active 75 mg tablet mouth daily. aspirin 81 MG EC Take 81 mg by 0 Active tablet mouth daily. VALSARTAN ORAL Take by mouth 0 Active daily. tamsulosin (FLOMAX) Take 0.4 mg by 0 Discontinued 0.4 mg Cp24 24 hr mouth daily At 8 capsule bedtime . lisinopril Take 40 mg by 0 Discontinued (PRINIVIL,ZESTRIL) mouth 2 (two) 8 40 [...] Active Problems Problem Noted Date Bladder cancer 08/25/2017 CVA (cerebral vascular accident) 01/28/2017 Paroxysmal atrial fibrillation 01/28/2017 CLL (chronic lymphocytic leukemia) 01/28/2017 Essential hypertension 01/28/2017 History of lacunar cerebrovascular accident (CVA) 01/28/2017 Encounters Date Type Specialty Care Team Description 08/25/2017 Surgery Brown Garcia CYSTOSCOPY,BLUE LIGHT MD Louis CYSVIEW 08/25/2017 Hospital Encounter Brown Garcia Malignant neoplasm of urinary bladder, unspecified site (HCC); MD Louis Pre-op testing; Bacteremia 08/24/2017 Anesthesia Event Chinedu Figueredo MD 08/23/2017 Hospital Encounter Cardiology Brown Garcia MD 08/23/2017 Hospital Encounter Brown Garcia MD 08/23/2017 Hospital Encounter Pre-Admission Brown Garcia Testing MD Louis 08/23/2017 Hospital Encounter Pre-Admission Brown Garcia Malignant neoplasm of urinary bladder, unspecified site (HCC); Testing MD Louis Pre-op testing; Bacteremia ; Abnormal coagulation profile 08/23/2017 Orders Only General Internal Medicine 08/23/2017 Outside Orders Lab Amee Lugo 08/21/2017 Orders Only Urology Brown Garcia MD 08/07/2017 Orders Only Urology Brown Garcia Malignant neoplasm of urinary bladder, unspecified site (HCC) (Primary Dx); MD Louis Pre-op testing; Bacteremia ; Abnormal coagulation profile 01/28/2017 - Hospital Encounter General Internal [facility] CLL (chronic lymphocytic leukemia) (HCC); 01/29/2017 Medicine Linda Montague Cerebrovascular accident (CVA), unspecified mechanism (HCC); MD Chris Essential hypertension; Onel Pringle, History of lacunar cerebrovascular accident (CVA); Paroxysmal atrial fibrillation (HCC) Dipak Bauer MD after 12/09/2016 Social History Tobacco Use Types Packs/Day Years Used Date Unknown If Ever Smoked Smokeless Tobacco: Never Used Comments: quit dec 2017 Alcohol Use Drinks/Week oz/Week Comments Yes occasional Sex Assigned at Date Recorded Not on file Job Start Date Occupation Industry Not on file Not on file Not on file Travel History Travel Start Travel End No recent travel history available. Last Filed Vital Signs Vital Sign Reading [...] Procedure Name Priority Date/Time Associated Diagnosis Comments TISSUE EXAM AP Routine 08/25/2017 10:30 AM Results for this CDT procedure are in the results section. CYSTOSCOPY,TURBT 08/25/2017 10:00 AM Malignant neoplasm CDT of urinary bladder, unspecified site (HCC) Special Needs (CYSVIEW) CYSTOSCOPY,BLUE LIGHT CYSVIEW 08/25/2017 10:00 AM CDT Malignant neoplasm of urinary bladder, unspecified site (HCC) Special Needs (CYSVIEW) TRANSFUSION SERVICE 08/24/2017 5:54 PM REPORT - SCAN CDT XR CHEST 2 VIEWS Routine 08/23/2017 3:46 PM Malignant neoplasm Results for this CDT of urinary bladder, procedure are in unspecified site the results (HCC) section. Pre-op testing ECG 12-LEAD Routine 08/23/2017 3:05 PM CDT Procedure Note - Interface, External Ris In - 08/23/2017 5:27 PM CDT Ventricular Rate 57 BPM Atrial Rate 57 BPM P-R Interval 212 ms QRS Duration 98 ms Q-T Interval 532 ms QTC Calculation(Bazett) 517 ms P Stowe 24 degrees R Stowe -19 degrees T Stowe 74 degrees Sinus bradycardia with 1st degree A-V block Prolonged QT Abnormal ECG No previous ECGs available ECG 12-LEAD Routine 08/23/2017 3:05 Malignant neoplasm of Results for PM CDT urinary bladder, this procedure unspecified site (HCC) are in the Pre-op testing results Bacteremia section. (CELLAVISION MANUAL Routine 08/23/2017 3:02 Malignant neoplasm of Results for DIFF) PM CDT urinary bladder, this procedure unspecified site (HCC) are in the Pre-op testing results section. CBC W/PLT COUNT & Routine 08/23/2017 3:02 Malignant neoplasm of Results for AUTO DIFFERENTIAL PM CDT urinary bladder, this procedure unspecified site (HCC) are in the Pre-op testing results section. TYPE AND SCREEN, Routine 08/23/2017 3:02 Malignant neoplasm of Results for AUTOMATED PM CDT urinary bladder, this procedure unspecified site (HCC) are in the Pre-op testing results section. URINALYSIS W/ Routine 08/23/2017 3:02 Malignant neoplasm of Results for MICROSCOPIC PM CDT urinary bladder, this procedure unspecified site (HCC) are in the Pre-op testing results Bacteremia section. APTT Routine 08/23/2017 3:02 Abnormal coagulation Results for PM CDT profile this procedure Malignant neoplasm of are in the urinary bladder, results unspecified site (HCC) section. Pre-op testing PROTHROMBIN Routine 08/23/2017 3:02 Malignant neoplasm of Results for TIME/INR PM CDT urinary bladder, this procedure unspecified site (HCC) are in the Pre-op testing results section. CBC W/PLT COUNT & Routine 08/23/2017 3:02 Malignant neoplasm of Results for AUTO DIFFERENTIAL PM CDT urinary bladder, this procedure unspecified site (HCC) are in the Pre-op testing results section. BASIC METABOLIC Routine 08/23/2017 3:02 Malignant neoplasm of Results for PANEL (7) PM CDT urinary bladder, this procedure unspecified site (HCC) are in the Pre-op testing results section. URINE CULTURE Routine 08/23/2017 3:02 Bacteremia Results for PM CDT Malignant neoplasm of this procedure urinary bladder, are in the unspecified site (HCC) results Pre-op testing section. RHYTHM STRIP - SCAN 02/02/2017 8:10 AM ACID STRENGTH INSPECTOR (MANUAL Routine 01/29/2017 6:21 Results for DIFFERENTIAL) AM ACID STRENGTH INSPECTOR this procedure are in the results section. CBC W/PLT COUNT & Routine 01/29/2017 6:21 Results for AUTO DIFFERENTIAL AM ACID STRENGTH INSPECTOR this procedure are in the results section. CREATINE KINASE Routine 01/29/2017 6:21 Results for (CK), TOTAL AND MB AM ACID STRENGTH INSPECTOR this procedure are in the results section. TROPONIN I Routine 01/29/2017 6:21 Results for AM ACID STRENGTH INSPECTOR this procedure are in the results section. LIPID PANEL Routine 01/29/2017 6:21 Results for AM ACID STRENGTH INSPECTOR this procedure are in the results section. VITAMIN B12 Routine 01/29/2017 6:21 Results for AM ACID STRENGTH INSPECTOR this procedure are in the results section. RPR Routine 01/29/2017 6:21 Results for AM ACID STRENGTH INSPECTOR this procedure are in the results section. TSH/FREE T4 IF Routine 01/29/2017 6:21 Results for INDICATED AM ACID STRENGTH INSPECTOR this procedure are in the results section. HEMOGLOBIN A1C Routine 01/29/2017 6:21 Results for AM ACID STRENGTH INSPECTOR this procedure are in the results section. BASIC METABOLIC Routine 01/29/2017 6:21 Results for PANEL (7) AM ACID STRENGTH INSPECTOR this procedure are in the results section. CBC W/PLT COUNT & Routine 01/29/2017 6:21 Results for AUTO DIFFERENTIAL AM ACID STRENGTH INSPECTOR this procedure are in the results section. MR BRAIN WITHOUT IV Routine 01/29/2017 4:01 Results for CONTRAST AM ACID STRENGTH INSPECTOR this procedure are in the results section. MR MRA NECK WITHOUT Routine 01/29/2017 4:01 Results for IV CONTRAST AM ACID STRENGTH INSPECTOR this procedure are in the results section. MR MRA HEAD WITHOUT Routine 01/29/2017 4:01 Results for CONTRAST AM ACID STRENGTH INSPECTOR this procedure are in the results section. after 12/09/2016 Results Tissue Exam (08/25/2017 10:30 AM CDT) Case Report Surgical Pathology Report Case: [id number] [facility] Authorizing Provider:Brown Garcia MDCollected: 08/25/[address] [facility] Ordering [facility]: [facility] Received: 08/25/2017 1434 SERVICES Pathologist: Nicolas Diaz MD Specimens: A) - Bladder Tumor, enbloc resection of right lateral wall tumor B) - Bladder Tumor, TUR papillary tumor inside left bladder neck C) - Bladder Tumor, right lateral wall bladder tumor D) - Bladder Tumor, papillary tumor dome DIAGNOSIS A. URINARY BLADDER, RIGHT LATERAL WALL, TURBT: [facility] - PAPILLARY UROTHELIAL CARCINOMA, LOW-GRADE (WHO GRADE 1), NONINVASIVE [facility] - MUSCULARIS PROPRIA IS NOT PRESENT B. [...] NOT PRESENT Signing Pathologist Direct Phone Line: [phone] COMMENT The focus of invasion on [facility] specimen B. Is into the [facility] lamina propria of one papillary stalk and consists of on 3-4 tiny cell clusters. CPT Code(s) A. 17249 [facility] B. [address] [facility] C. 66023 D. 51151 CLINICAL HISTORY Malignant neoplasm of [facility] urinary bladder [facility] SPECIMEN SOURCE A. Bladder tumor en bloc [facility] resection of right lateral [facility] wall tumor; B. TUR papillary tumor inside left bladder neck; C. Right lateral wall bladder tumor; D. Papillary tumor dome GROSS DESCRIPTION The specimen is received in four containers of formalin all labeled with the patient's information. [facility] Part A labeled "en bloc resection of [...] Submitted D1. CG/ pl MICROSCOPIC DESCRIPTION Performed [facility] Specimen Tissue - Bladder Tumor Performing Organization Address City/State/Zipcode Phone Number [facility] [address] [place] [address] [place] TRANSFUSION SERVICE REPORT - SCAN (08/24/2017 5:54 PM CDT) Narrative Performed At XR chest 2 views (08/23/2017 3:46 PM CDT) Narrative Performed At FINAL REPORT [facility] Chest, two views HISTORY: Bladder cancer COMPARISON: [...] MD Report Verified Date/Time:08/23/2017 16:22:14 Reading Location: [address] Reading Room Procedure Note Interface, External [...] Report Verified Date/Time: 08/23/2017 16:22:14 Reading Location: [address] Reading Room Performing Organization Address City/State/Zipcode Phone Number [facility] Electrocardiogram, 12-lead (08/23/2017 3:05 PM CDT) Narrative Performed At Ventricular Rate 57 BPM GE MUSE Atrial Rate 57 BPM P-R Interval 212 ms QRS Duration 98 ms Q-T Interval 532 ms QTC Calculation(Bazett) 517 ms P Stowe 24 degrees R Stowe -19 degrees T Stowe 74 degrees Sinus bradycardia with 1st degree A-V block Prolonged QT Abnormal ECG No previous ECGs available Confirmed by Radha Liu Alireaz ([id number]) on 08/23/2017 10:07:57 PM Procedure Note Interface, External Ris In - 08/23/2017 10:08 PM CDT Ventricular Rate 57 BPM Atrial Rate 57 BPM P-R Interval 212 ms QRS Duration 98 ms Q-T Interval 532 ms QTC Calculation(Bazett) 517 ms P Stowe 24 degrees R Stowe -19 degrees T Stowe 74 degrees Sinus bradycardia with 1st degree A-V block Prolonged QT Abnormal ECG No previous ECGs available Confirmed by Radha Liu Alireaz ([id number]) on 08/23/2017 10:07:57 PM Performing Organization Address City/State/Zipcode Phone Number GE MUSE Manual Differential (08/23/2017 3:02 PM CDT) % Neutros 23 % [facility] % Lymphs 66 % [facility] % Monos 2 % [facility] % Eos 1 % [facility] % Baso 1 % [facility] % Atypical Lymphs 6 (H) 0 - 0 % [facility] # Neutros 16.58 (H) 1.78 - 5.38 K/ul [facility] # Lymphs 47.59 (H) 1.32 - 3.57 K/ul [facility] # Monos 1.44 (H) 0.30 - 0.82 K/uL [facility] # Eos 0.72 (H) 0.04 - 0.54 K/uL [facility] # Baso 0.72 (H) 0.01 - 0.08 K/uL [facility] # Atypical Lymphs 4.33 (H) 0.00 - 0.00 K/uL [facility] Total Counted 100 [facility] Platelet Morphology Normal [facility] Smudge Cells Present [facility] Polychromasia 1+ few [facility] Hypochromia 1+ few [facility] Anisocytosis 2+ moderate [facility] Microcytes 2+ moderate [facility] Poikilocytes 1+ few [facility] Artifact Present [facility] Platelet Conc Adequate [facility] Specimen Blood Narrative Performed At Received comment: [facility] User comments: Slide comments: Performing Organization Address City/[facility]/Unm Cancer Centercode Phone Number [facility] [address] [place] [phone] CENTER Type and screen, automated (08/23/2017 3:02 PM CDT) ABO/RH AUTOMATED (BEAKER) A POSITIVE [facility] Ab Scrn NEGATIVE [facility] Specimen Blood Performing Organization Address City/[facility]/Unm Cancer Centercode Phone Number [facility] [address] [place] [address] [phone] CBC with platelet count + automated diff (08/23/2017 3:02 PM CDT)Only the most recent of2 resultswithin the time period is included. WBC 72.1 (HH) 3.5 - 10.5 K/L [facility] RBC 4.97 4.63 - 6.08 M/L [facility] Hemoglobin 13.1 (L) 13.7 - 17.5 GM/DL [facility] Hematocrit 42.1 40.1 - 51.0 % [facility] MCV 84.7 79.0 - 92.2 fL [facility] MCH 26.4 25.7 - 32.2 pg [facility] MCHC 31.1 (L) 32.3 - 36.5 GM/DL [facility] RDW 14.5 (H) 11.6 - 14.4 % [facility] Platelets 247 150 - 450 K/CU MM [facility] MPV 10.6 9.4 - 12.4 fL [facility] nRBC 0 0 - 0 /100 WBC [facility] Specimen Blood Performing Organization Address City/[facility]/Zipcode Phone Number [facility] [address] [place] [phone] [place] Urinalysis w/ Microscopic (08/23/2017 3:02 PM CDT) Color, UA Light Yellow [facility] Clarity, UA Clear [facility] Specific [place], UA 1.012 1.001 - 1.035 [facility] pH, UA 7.0 5.0 - 8.0 [facility] Protein, UA 50 mg/dL (A) Negative [facility] Glucose, UA Negative Negative [facility] Ketones, UA Negative Negative [facility] Bilirubin, UA Negative Negative [facility] Blood, UA Negative Negative [facility] Nitrite, UA Negative Negative [facility] Leukocytes, UA Negative Negative [facility] Urobilinogen, UA 0.2 0.2 - 1.0 mg/dL [facility] RBC, UA 1 /HPF [facility] WBC, UA <1 /HPF [facility] Mucus Rare [facility] Specimen Source [facility] Specimen Urine Performing Organization Address City/[facility]/Zipcode Phone Number [facility] [address] [place] [address] CENTER aPTT (08/23/2017 3:02 PM CDT) PTT 31.6 22.5 - 36.0 seconds [facility] Specimen Blood Performing Organization Address [facility]/Zipcode Phone Number [address] [address] [place] Prothrombin time/INR (08/23/2017 3:02 PM CDT) Protime 14.8 (H) 11.7 - 14.7 seconds [facility] INR 1.2 <=5.9 [facility] Specimen Blood Narrative Performed At [facility] RECOMMENDED COUMADIN/WARFARIN INR THERAPY RANGES STANDARD DOSE: 2.0 - 3.0 Includes: PROPHYLAXIS for venous thrombosis, systemic embolization; TREATMENT for venous thrombosis and/or pulmonary embolus. HIGH RISK: Target INR is 2.5-3.5 for patients with mechanical heart valves. Performing Organization Address [facility]/Unm Cancer Centercode Phone Number [address] [address] [phone] [place] Urine culture (08/23/2017 3:02 PM CDT) Result 50-59,000 col/mL skin eunice [facility] Specimen Urine - Urine, Clean Catch Performing Organization Address [facility] Cancer Centercori Phone Number [address] [address] [phone] [place] Basic Metabolic Panel (08/23/2017 3:02 PM CDT)Only the most recent of2 resultswithin the time period is included. Sodium 140 136 - 145 meq/L [facility] Potassium 3.9 3.5 - 5.1 meq/L [facility] Chloride 104 98 - 107 meq/L [facility] CO2 25 22 - 29 meq/L [facility] BUN 29 (H) 7 - 21 mg/dL [facility] Creatinine 1.59 (H) 0.57 - 1.25 mg/dL [facility] Glucose 80 70 - 105 mg/dL [facility] Calcium 9.8 8.4 - 10.2 mg/dL [facility] EGFR 43Comment: ESTIMATED GFR IS mL/min/1.73 sq m [facility] NOT ACCURATE CREATININE [facility] CLEARANCE IN PREDICTING GLOMERULAR FILTRATION RATE. ESTIMATED GFR IS NOT APPLICABLE FOR DIALYSIS PATIENTS. Specimen Blood Performing Organization Address City/[facility]/Unm Cancer Centercode Phone Number [address] [phone] CENTER RHYTHM STRIP - SCAN (02/02/2017 8:10 AM ACID STRENGTH INSPECTOR) Narrative Performed At Manual Differential (01/29/2017 6:21 AM ACID STRENGTH INSPECTOR) Total Counted [facility] Platelet Morphology Normal [facility] RBC Morphology Normal [facility] Atypical Lymphs Present [facility] Smudge Cells Present [facility] Specimen Blood Performing Organization Address [facility] Centercori Phone Number [address] [address] [place] TSH/Free T4 If Indicated (01/29/2017 6:21 AM ACID STRENGTH INSPECTOR) TSH 1.37 0.35 - 4.94 uIU/mL [facility] Specimen Blood Performing Organization Address [facility]/Unm Cancer Centercode Phone Number [address] [phone] CENTER Troponin I (01/29/2017 6:21 AM ACID STRENGTH INSPECTOR) Troponin I 0.02 0.00 - 0.03 ng/mL [facility] Specimen Blood Narrative Performed At [facility] Troponin I (TnI) levels must be interpreted [...] acidosis, acute neurological disease, and persistent tachyarrhythmia. Performing Organization Address City/[facility]/Zipcode Phone Number [address] [address] CENTER RPR (01/29/2017 6:21 AM ACID STRENGTH INSPECTOR) RPR Nonreactive Nonreactive [facility] Specimen Blood Performing Organization Address [facility] Cancer Centercode Phone Number [address] [address] CENTER Hemoglobin A1c (01/29/2017 6:21 AM ACID STRENGTH INSPECTOR) Hemoglobin A1C 6.9 (H) 4.3 - 6.1 % [facility] Specimen Blood Performing Organization Address [facility] [place] [place] Phone Number [address] [address] [place] Vitamin B12 (01/29/2017 6:21 AM ACID STRENGTH INSPECTOR) Vitamin B12 346 213 - 816 pg/mL [facility] Specimen Blood Performing Organization Address [facility] [place] [place] Phone Number [address] [address] [place] Creatine Kinase (CK), Total and MB (01/29/2017 6:21 AM ACID STRENGTH INSPECTOR) Total CK 72 29 - 200 U/L [facility] CK-MB 0.5 0.0 - 6.6 ng/mL [facility] MB Relative Index 0.7 % [facility] Specimen Blood Narrative Performed At CK-MB Reference Range: [facility] <6.7Normal 6.7-10.0Borderline >10.0 Abnormal Performing Organization Address [facility]/Unm Cancer Centercode Phone Number [address] [address] [place] Lipid panel (01/29/2017 6:21 AM ACID STRENGTH INSPECTOR) Triglycerides 175 mg/dL [facility] Cholesterol 104 mg/dL [facility] HDL 21 mg/dL [facility] LDL Calculated 48 mg/dL [facility] Specimen Blood Narrative Performed At [facility] Triglyceride Reference Range: Low Risk <150 [id number] High Risk 200-499 Very High Risk>=500 Cholesterol Reference Range: Low Risk <200 [id number] High Risk>240 HDL Cholesterol Reference Range: Low Risk >=60 High Risk <40 LDL Cholesterol Reference Range: Optimal<100 Near [id number] Very High >=190 Performing Organization Address City/State/Zipcode Phone Number [facility] [address] [place] [address] [place] MR brain without IV contrast (01/29/2017 4:01 AM ACID STRENGTH INSPECTOR) Narrative Performed At FINAL REPORT [facility] MR, BRAIN, WITHOUT CONTRAST, MR, MRA, NECK, [...] MD Report Verified Date/Time:01/29/2017 04:30:36 Reading Location: [facility] [id number] Ortho Consult Reading Room Procedure Note Interface, External Ris In - 01/29/2017 4:32 AM ACID STRENGTH INSPECTOR FINAL REPORT MR, BRAIN, WITHOUT CONTRAST, MR, [...] Report Verified Date/Time: 01/29/2017 04:30:36 Reading Location: [facility] B1 [id number] Ortho Consult Reading Room Performing Organization Address City/State/Zipcode Phone Number [facility] MRA neck without IV contrast (01/29/2017 4:01 AM ACID STRENGTH INSPECTOR) Narrative Performed At FINAL REPORT [facility] MR, BRAIN, WITHOUT CONTRAST, MR, MRA, NECK, [...] MD Report Verified Date/Time:01/29/2017 04:30:36 Reading Location: [address] Ortho Consult Reading Room Procedure Note Interface, External Ris In - 01/29/2017 4:32 AM ACID STRENGTH INSPECTOR FINAL REPORT MR, BRAIN, WITHOUT CONTRAST, MR, [...] Report Verified Date/Time: 01/29/2017 04:30:36 Reading Location: [facility] B1 [id number] Ortho Consult Reading Room Performing Organization Address City/State/Zipcode Phone Number [facility] MRA head without IV contrast (01/29/2017 4:01 AM ACID STRENGTH INSPECTOR) Narrative Performed At FINAL REPORT [facility] MR, BRAIN, WITHOUT CONTRAST, MR, MRA, NECK, [...] MD Report Verified Date/Time:01/29/2017 04:30:36 Reading Location: [address] Ortho Consult Reading Room Procedure Note Interface, External Ris In - 01/29/2017 4:32 AM ACID STRENGTH INSPECTOR FINAL REPORT MR, BRAIN, WITHOUT CONTRAST, MR, [...] Report Verified Date/Time: 01/29/2017 04:30:36 Reading Location: [address] Ortho Consult Reading Room Performing Organization Address City/State/Zipcode Phone Number [facility] after 12/09/2016 Insurance Payer Benefit Plan / Group Subscriber ID Type Phone Address MEDICARE MEDICARE A B xxxxxxxxxx Medicare [employer] - MGD CARE AET[employer] INDEMNITY NON CONTR xxxxxxxxx Comm Advance Directives For more information, please contact:[address] [phone] Code Status Date Activated Date Inactivated Comments Full Code 01/28/2017 10:55 PM 01/29/2017 1:33 PM This code status was determined by: Patient
--- OUTSIDE RECORDS SUMMARY | 2017-12-10 02:26 | XMS REPORT | Clinical Summary ---
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 06/06/2016 Cerebrovascular accident (CVA) ([facility]) 06/06/2016 SVT (supraventricular tachycardia) ([facility]) 06/06/2016 CLL (chronic lymphocytic leukemia) ([facility]) 06/06/2016 Encounters Date Type Specialty Care Team Description 05/22/2017 Hospital Encounter Neurology Aman Tyson MD Convulsions, unspecified convulsion type 05/08/2017 Orders Only Rob Valente Convulsions, unspecified convulsion type (Primary Dx) 04/25/2017 Orders Only Emergency Medicine Rob Valente Convulsions, unspecified convulsion type (Primary Dx) 04/24/2017 Office Visit Neurology Aman Tyson MD Cerebral infarction, unspecified mechanism (Primary Dx) after 12/09/2016 Family History Medical History Relation Name Comments [...] in unspecified the results mechanism section. after 12/09/2016 Results Outpatient EEG (05/30/2017 7:03 AM) Narrative [...] Non Af Amer 50 (A) mL/min/1.73 m2 [facility] DEPARTMENT OF PATHOLOGY AND [facility] GFR Af Amer 60 mL/min/1.73 m2 [facility] DEPARTMENT OF Comment: PATHOLOGY AND [facility] Chronic kidney disease: <60 mL/min/1.73m2 MEDICINE [...] specimen Performing Organization Address City/State/Zipcode Phone Number [facility] DEPARTMENT OF PATHOLOGY [address] [place] [address] AND [facility] Sedimentation rate (05/15/2017 2:28 PM) Sedimentation rate 4 0 - 10 mm/hr [facility] DEPARTMENT OF PATHOLOGY AND [facility] Specimen Blood Performing Organization Address City/[facility]/Zipcode Phone Number [facility] DEPARTMENT OF PATHOLOGY [address] [place] [address] AND [facility] CRP high sensitivity (05/15/2017 2:28 PM) CRP, high sensitivity 0.95 mg/L [facility] DEPARTMENT OF Comment: PATHOLOGY AND [facility] Please note this test is different [...] infection Specimen Plasma specimen Performing Organization Address City/[facility]/Zipcode Phone Number [facility] DEPARTMENT OF PATHOLOGY AND [address] [place] [id number] [facility] Hemoglobin A1c (05/15/2017 2:28 PM) Hemoglobin A1C 6.8 (H) 4.0 - 6.0 % [facility] DEPARTMENT OF PATHOLOGY Comment: AND [facility] MEDICINE Less than 6% - Goal of therapy for Type II Diabetes Less than 7%-Goal of therapy for Type I Diabetes Less than 8%-Acceptable control for Type I or Type II Diabetes Greater than 8%-Unacceptable control; action indicated. ([id number]) Specimen Blood Performing Organization Address City/State/Zipcode Phone Number [facility] DEPARTMENT OF PATHOLOGY [address] [place] [address] AND [facility] Folate level (05/15/2017 2:28 PM) Folate 13.2 4.8 - 24.2 ng/mL [facility] DEPARTMENT OF PATHOLOGY AND GENOMIC MEDICINE Specimen Serum Performing Organization Address City/State/Zipcode Phone Number [facility] DEPARTMENT OF PATHOLOGY AND [address] Vitamin B12 level (05/15/2017 2:28 PM) Vitamin B12 552 211 - 946 pg/mL [facility] DEPARTMENT OF PATHOLOGY Comment: AND [facility] Significant overlap exists between normal and deficiency states. However, most patients with deficiencies will have Serum B12 <200 pg/mL. Specimen Serum Performing Organization Address City/[facility]/Zipcode Phone Number [facility] DEPARTMENT OF PATHOLOGY AND [address] [phone] [facility] Lipid panel (05/15/2017 2:28 PM) Cholesterol 153 0 - 199 mg/dL [facility] DEPARTMENT OF PATHOLOGY AND GENOMIC MEDICINE Triglycerides 334 (H) 0 - 149 mg/dL [facility] DEPARTMENT OF PATHOLOGY AND GENOMIC MEDICINE HDL cholesterol 22 (L) 40 - 99,999 [facility] DEPARTMENT OF mg/dL PATHOLOGY AND GENOMIC MEDICINE LDL cholesterol 85 0 - 99 mg/dL [facility] DEPARTMENT OF PATHOLOGY AND GENOMIC MEDICINE Lipid panel See below [facility] DEPARTMENT OF interpretation Comment: PATHOLOGY AND Total Cholesterol (mg/dL) [facility] MEDICINE <200 Desirable 437-190Jjqjhnkjpu-pyxx >=240High Triglycerides (mg/dL) <150 Normal 260-403Kbwoigujgu-pqdx 200-499High >=500Very high HDL Cholesterol (mg/dL) <40Low (male) <50Low (female) LDL Cholesterol (mg/dL) <100 Optimal 100-129Near or above optimal 860-116Pslklccfkt-[id number] 160-189High >=190Very high Risk Catergories that modify [...] specimen Performing Organization Address City/State/Zipcode Phone Number [facility] DEPARTMENT OF PATHOLOGY [address] [place] [address] AND [facility] Comprehensive metabolic panel (05/15/2017 2:28 PM) Sodium 144 135 - 148 mEq/L [facility] DEPARTMENT OF PATHOLOGY AND GENOMIC MEDICINE Potassium 3.8 3.5 - 5.0 mEq/L [facility] DEPARTMENT OF PATHOLOGY AND GENOMIC MEDICINE Chloride 102 98 - 112 mEq/L [facility] DEPARTMENT OF PATHOLOGY AND GENOMIC MEDICINE CO2 28 24 - 31 mEq/L [facility] DEPARTMENT OF PATHOLOGY AND GENOMIC MEDICINE Anion gap 14 7 - 15 mEq/L [facility] DEPARTMENT OF Comment: PATHOLOGY AND GENOMIC Starting from May , anion gap calculation MEDICINE no longer incorporates potassium. Please note the change. BUN 26 (H) 8 - 23 mg/dL [facility] DEPARTMENT OF PATHOLOGY AND GENOMIC MEDICINE Creatinine 1.4 (H) 0.7 - 1.2 mg/dL [facility] DEPARTMENT OF PATHOLOGY AND GENOMIC MEDICINE Glucose 79 65 - 99 mg/dL [facility] DEPARTMENT OF PATHOLOGY AND GENOMIC MEDICINE Calcium 9.7 8.8 - 10.2 mg/dL [facility] DEPARTMENT OF PATHOLOGY AND GENOMIC MEDICINE Protein 7.0 6.3 - 8.3 g/dL [facility] DEPARTMENT OF PATHOLOGY AND GENOMIC MEDICINE Albumin 4.5 3.5 - 5.0 g/dL [facility] DEPARTMENT OF PATHOLOGY AND GENOMIC MEDICINE A/G ratio 1.8 0.7 - 3.8 [facility] DEPARTMENT OF PATHOLOGY AND GENOMIC MEDICINE Alkaline phosphatase 94 40 - 129 U/L [facility] DEPARTMENT OF PATHOLOGY AND GENOMIC MEDICINE AST 17 10 - 50 U/L [facility] DEPARTMENT OF PATHOLOGY AND GENOMIC MEDICINE ALT 12 5 - 50 U/L [facility] DEPARTMENT OF PATHOLOGY AND GENOMIC MEDICINE Total bilirubin 0.3 0.2 - 1.2 mg/dL [facility] DEPARTMENT OF PATHOLOGY AND GENOMIC MEDICINE Specimen Plasma specimen Performing Organization Address City/State/Zipcode Phone Number [facility] DEPARTMENT OF PATHOLOGY [address] [place] [address] AND [facility] MEDICINE after 12/09/2016 Insurance Payer Benefit Plan / Group Subscriber ID Type Phone Address [employer] A[employer] PPO OPEN CHOICE xxxxxxxxx PPO MEDICARE MEDICARE PART A AND B xxxxxxxxxx Medicare [place], [place] III y [phone] [id number]
--- OUTSIDE RECORDS SUMMARY | 2017-12-10 02:27 | XMS REPORT | Continuity of Care Document ---
:1945 Author Organization Interface Problems Problem Status Onset Classification Date Comments Source Date Reported Urinary 06/01/2017 [place] obstruction [place] Hematuria 06/01/2017 [place] LUMBAR STENOSIS Active [address] M54.16 - Active [facility] "RADICULOPATHY, 7 [place] LUMBAR REGION" Stroke Resolved Problem 06/22/2017 [facility], [place] Neuro, PRECIOUS [place], PRECIOUS [facility], [facility], [place] Hematoma Resolved Problem 06/22/2017 [facility] [place] Neuro, PRECIOUS [place], PRECIOUS [facility], PRECIOUS [facility] [place] HBP (<span Active Problem 06/22/2017 [facility] ID="[id number] Neuro, 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>) [place], PRECIOUS Chavez,[facility], PRECIOUS [facility] [place] Bladder cancer Resolved Problem 06/22/2017 [facility], PRECIOUS [place], PRECIOUS [facility]avez,[facility], PRECIOUS [facility] [place] Medications Medication Details Route Status Patient Ordering Order Source Instructions Provider Date Docusate Sodium 1 tab, Route: Inactive 05/29/ [place] 50 MG / PO, Drug Form: 2018 [facility] sennosides, FPC TAB, Dosing 8.6 MG Oral Weight 86.364, Tablet kg, BID, Start date: 05/29/17 17:00:00 CDT, Duration: 30 day, Stop date: 06/28/17 9:00:00 CDTNotes: (Same as Senokot-S) Equiv. to Rachelle-Colace. Docusate Sodium 1 tab, PO, BID, Active 05/29/ Sugar 50 MG / X 14 day, # 28 2017 [facility] sennosides, FPC tab, 0 8.6 MG Oral Refill(s), Tablet Pharmacy: [facility] [id number] ciprofloxacin 500 500 mg=1 tab, Active [place] mg oral tablet PO, Q12H, X 7 2017, # 14 tab, 0 Refill(s), Pharmacy: [facility] [id number] Cipro 500 mg, 2 tab, Inactive [place] Route: PO, Drug 2017 [place] form: TAB, [id number], Dosing Weight 86.364, kg, Start date: 05/29/17 [...] Stop date: 06/26/17 2:04:00 CDTNotes: (Same as: [place] 325/5) Do not exceed 4gm/day of acetaminophen. [...] Route: Inactive [place] Normal Saline INTRAVESICULAR, 2017 [facility] Drug Form: SOLN, Dosing Weight 89.545, kg, Continuous, Start date: 05/27/17 2:00:00 CDT, Duration: 30 day, Stop date: 06/26/17 1:59:00 CDTNotes: For irrigation only. Sodium Chloride 3,000 mL, Route: Inactive [place] 0.0769 MEQ/ML Intravesical, 2017 [facility] Irrigation Drug Form: SOLN, Solution Dosing [...] Route: Inactive [place] Normal Saline Intravesical, 2017 [facility] Drug Form: SOLN, Dosing Weight 89.545, kg, ONCE, Start date: 05/27/17 0:58:00 CDT, Stop date: 05/27/17 0:58:00 CDTNotes: For irrigation only. Irrigation w/ 3,000 mL, Route: Inactive [place] Normal Saline INTRAVESICULAR, 2018 [facility] Drug Form: SOLN, Dosing Weight 89.545, [...] MG TAB, Dosing Oral Tablet Weight 89.545, [[place] 5/325] kg, ONCE, STAT, Start date: 05/26/17 [...] CDT diltiazem 360 mg, 1 cap, Inactive [place] Route: PO, Drug 2016 Medical form: ERCAP, Center ONCE, Dosing Weight 93.182, kg, Start date: 09/24/16 8:38:00 CDT, Stop date: 09/24/16 8:38:00 CDTNotes: DO NOT CRUSH. Lisinopril 40 mg, 2 tab, No Longer [facility] Route: PO, Drug Active 2016 Medical form: TAB, Center Daily, Dosing Weight 93.182, kg, Start date: 09/23/16 9:00:00 CDT, Duration: 30 day, Stop date: 10/22/16 9:00:00 CDTNotes: (Same as: Prinivil, Zestril) Famotidine 20 MG 20 mg=1 tab, PO, Active [facility] Oral Tablet BID, # 20 tab, 0 2016 Medical Refill(s) [place] magnesium citrate 8.725 gs=314 ml, No Longer [facility] 58.2 MG/ML Oral PO, Daily, X 2 Active 2016 Medical Solution day, # 300 mL, 0 Center Refill(s) Acetaminophen 325 1 tab, PO, Q6H, Active [facility] MG / Hydrocodone PRN for pain, X 2017 Medical Bitartrate 10 MG 14 day, # 90 Center Oral Tablet tab, 0 Refill(s) [[place] 10/325] Methocarbamol 500 500 mg=1 tab, Active [facility] MG Oral Tablet PO, Q8H, PRN 2017 Medical [Robaxin] Spasms, X 10 Center day, # 30 tab, 0 Refill(s) {21 See Active [facility] (Methylprednisolo Instructions, 2017 Medical ne 4 MG Oral PO, Take by [place] Tablet [Medrol]) mouth as } Pack [Medrol directed on Dosepak] label., # 1 Pack, 0 Refill(s) Flomax 0.4 mg, 1 cap, No Longer [facility] Route: PO, Drug Active 2016 Medical form: CAP, Center Daily, Dosing Weight 93.182, kg, Start date: 09/23/16 1:28:00 CDT, Duration: 30 day, Stop date: 10/22/16 9:00:00 CDTNotes: (Same As: Flomax) "Do Not Crush" Cefazolin 2 gm, Route: IV, No Longer [place] Drug form: INJ, Active 2016 Medical [id number], Dosing Center Weight 93.182, kg, Start date: 09/22/16 22:00:00 CDT, Duration: 24 hr, Stop date: 09/23/16 14:00:00 CDT, ABX Indication: Surgical ProphylaxisNotes : (Same As: AncJaneen landa) Cefazolin FOR IV SET ONLY MEDICATION WASTE Product Size: 1000 mg Product Wasted: _0__ mg Saline Flush 0.9% 10 ml, Route: No Longer [place] IVP, Drug Form: Active 2016 Medical INJ, Dosing Center Weight 93.182, kg, Q12H, Start date: 09/22/16 21:00:00 CDT, Duration: 30 day, Stop date: 10/22/16 9:00:00 CDTNotes: (Same as: BD Posiflush) Dexamethasone 4 mg, 1 tab, No Longer [place] Route: PO, Drug Active 2016 Medical form: TAB, Q6H, Center Dosing Weight 93.182, kg, Start date: 09/22/16 18:00:00 CDT, Duration: 30 day, Stop date: 10/22/16 12:00:00 CDTNotes: Give with food. (Same As: Decadron) Famotidine 20 MG 20 mg, 1 tab, No Longer [facility] Oral Tablet Route: PO, Drug Active 2016 Medical form: TAB, BID, Center Dosing Weight 93.182, kg, Start date: 09/22/16 17:00:00 CDT, Duration: 30 day, Stop date: 10/22/16 9:00:00 CDTNotes: (Same as: Pepcid) Docusate 50 mg, 1 cap, No Longer [facility] Route: PO, Drug Active 2016 Medical form: CAP, BID, Center Dosing Weight 93.182, kg, Start date: 09/22/16 17:00:00 CDT, Duration: 30 day, Stop date: 10/22/16 9:00:00 CDT, Pediatric DosingNotes: (Same as: Colace) (Do Not Crush) sennosides, FPC 8.6 mg, 1 tab, No Longer [place] Route: PO, Drug Active 2016 Medical Form: [...] Catapres) Ondansetron 4 mg, 2 mL, Inactive [place] Route: IVP, Drug 2016 Medical form: INJ, ONCE, Center Dosing Weight 93.182, kg, PRN Nausea & Vomiting, Start date: 09/22/16 16:37:00 CDTNotes: (Same as: Zofran) MEDICATION WASTE Product Size: 4 mg Product Wasted: ___ mg Naloxone 0.4 mg, 1 mL, Inactive [place] Route: IVP, Drug 2016 Medical form: INJ, Center Q2MIN, Dosing Weight 93.182, kg, PRN Narcotic Reversal, Start date: 09/22/16 16:37:00 CDT, Duration: 8 doses or times, Stop date: Limited # of timesNotes: Same as Narcan Flumazenil 0.2 mg, 2 mL, Inactive [place] Route: IVP, Drug 2016 Medical form: INJ, PRN, Center Dosing Weight 93.182, kg, PRN Benzodiazepine Reversal, Initial dose, Start date: 09/22/16 16:37:00 CDT, Duration: 30 day, Stop date: 10/22/16 16:36:00 CDTNotes: (Same as: Romazicon) Hydralazine 10 mg, 0.5 mL, Inactive [place] Route: IVP, Drug 2017 Medical form: INJ, Center Q20Min, Dosing Weight 93.182, kg, PRN Elevated BP, Start date: 09/22/16 16:37:00 CDT, Duration: 2 doses or times, Stop date: Limited # of timesNotes: (Same as: Apresoline) Push over 5 minutes Hydromorphone 0.5 mg, 0.25 mL, Inactive [place] Route: IVP, Drug 2016 Medical form: INJ, Center Q5Min, Dosing Weight 93.182, kg, PRN Pain Score 7-10, Start date: 09/22/16 16:37:00 CDT, Duration: 4 doses or times, Stop date: Limited # of timesNotes: Same as: Dilaudid Oxycodone 5 mg, 1 tab, Inactive [place] Route: PO, Drug 2016 Medical form: TAB, Q4H, Center Dosing Weight 93.182, kg, PRN Pain Score 4-6, Start date: 09/22/16 16:37:00 CDT, Duration: 30 day, Stop date: 10/22/16 16:36:00 CDTNotes: (Same as: Roxicodone) Saline Flush 0.9% 10 ml, Route: No Longer [place] IVP, Drug Form: Active 2017 Medical INJ, Dosing Center Weight 93.182, kg, PRN, PRN Line Flush, Start date: 09/22/16 16:11:00 CDT, Duration: 30 day, Stop date: 10/22/16 16:10:00 CDTNotes: (Same as: BD Posiflush) Robaxin 500 mg, 1 tab, No Longer [place] Route: PO, Drug Active 2016 Medical form: TAB, TID, Center Dosing Weight 93.182, kg, PRN Spasm, Start date: 09/22/16 16:11:00 CDT, Duration: 30 day, Stop date: 10/22/16 16:10:00 CDTNotes: (Same as:Robaxin) Hydralazine 20 mg, 1 mL, No Longer [place] Route: IVP, Drug Active 2017 Medical form: INJ, Q4H, Center Dosing Weight 93.182, kg, PRN Hypertension, Start date: 09/22/16 16:11:00 CDT, Duration: 30 day, Stop date: 10/22/16 16:10:00 CDTNotes: (Same as: Apresoline) Push over 5 minutes Labetalol 10 mg, 2 mL, No Longer [place] Route: IVP, Drug Active 2016 Medical form: INJ, Center Q15Min, Dosing Weight 93.182, kg, PRN Hypertension, Start date: 09/22/16 16:11:00 CDT, Duration: 30 day, Stop date: 10/22/16 16:10:00 CDT Ondansetron 4 mg, 2 mL, No Longer [place] Route: IVP, Drug Active 2016 Medical form: INJ, Q6H, Center Dosing Weight 93.182, kg, PRN Nausea & Vomiting, Start date: 09/22/16 16:11:00 CDT, Duration: 30 day, Stop date: 10/22/16 16:10:00 CDT, >/=4 years, Pediatric DosingNotes: (Same as: Kt) MEDICATION WASTE Product Size: 4 mg Product Wasted: ___ mg Acetaminophen 325 1 tab, Route: No Longer [place] MG / Hydrocodone PO, Drug Form: Active 2017 Medical Bitartrate 10 MG TAB, Dosing Center Oral Tablet Weight 93.182, [[place] 10/325] kg, Q4H, PRN Pain Score 1-3, Start date: 09/22/16 16:11:00 CDT, Duration: 30 day, Stop date: 10/22/16 16:10:00 CDTNotes: Do not exceed 4gm/day of acetaminophen. (Same as: [place] 325/10) Dilaudid 0.5 mg, 0.25 mL, No Longer [place] Route: IVP, Drug Active 2016 Medical form: INJ, Q3H, Center Dosing Weight 93.182, kg, PRN Pain Score 7-10, Start date: 09/22/16 16:11:00 CDT, Duration: 30 day, Stop date: 10/22/16 16:10:00 CDTNotes: Same as: Dilaudid Bisacodyl 10 mg, 1 supp, No Longer [place] Route: ND, Drug Active 2016 Medical form: SUPP, Center Daily, Dosing Weight 93.182, kg, PRN Constipation, Start date: 09/22/16 16:11:00 CDT, Duration: 30 day, Stop date: 10/22/16 16:10:00 CDTNotes: (Same As: Dulcolax, Bisco-Lax) phenol 1 spray, Route: No Longer [place] TOP, Daily, Drug Active 2016 Medical form: SPRY, PRN Center Sore Throat, Start date: 09/22/16 16:11:00 CDT, Duration: 30 day, Stop date: 10/22/16 16:10:00 CDTNotes: Chloraseptic [place] (Same as: Chloraseptic, Sore Throat [place]) WASTE: F/P - Black; E - [employer] [facility] Melatonin 3 MG 3 mg, 1 tab, No Longer [place] Extended Release Route: PO, Drug Active 2016 Medical Tablet Form: TAB, Center Dosing Weight 93.182, kg, Bedtime, PRN as needed for insomnia, Start date: 09/22/16 16:11:00 CDT, Duration: 30 day, Stop date: 10/22/16 16:10:00 CDTNotes: (Same as: Melatonin) Benadryl 25 mg, 1 cap, No Longer [place] Route: PO, Drug Active 2016 Medical form: CAP, TID, Center Dosing Weight 93.182, kg, PRN Itching, Start date: 09/22/16 16:11:00 CDT, Duration: 30 day, Stop date: 10/22/16 16:10:00 CDTNotes: (Same as: Benadryl) ceFAZolin 2 gm, 100 mL, No Longer [facility] Route: IVPB, Active 2016 Medical Drug [...] 11.4 g/dL 14.0 - 05/28 [place] 18.0 [facility] HEMATOLOGY RBC 4.13 M/CMM 4.70 - 05/28 [place] 6.10 /2017 [facility] HEMATOLOGY WBC 51.0 K/CMM 3.7 - 10.4 05/28 Result Comment: [facility] Critical Result(s) called to HANDY Garcia at 05/28/2017 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 Read back OK. Bladder US Bladder US Bladder Ultrasound 05/27 - - [facility] History: Hematuria - looking for blood [...] eGFR of 60-89 may be normal in [facility] mL/min/1. some populations, particularly the elderly, for [...] CO2 24 meq/L 24 - 32 05/27 [facility] CHEM PANEL Chloride Lvl 107 meq/L 95 - 109 05/27 [facility] CHEM PANEL Potassium 3.8 meq/L 3.5 [...] # 10.9 K/CMM 1.5 - 8.1 05/27 [facility] HEMATOLOGY Lymphocytes 44.6 K/CMM 1.0 - [...] g/dL 32.0 - 05/27 [place] 36.0 /2017 [facility] HEMATOLOGY RDW 16.4 % 11.5 - 05/27 [place] 14.5 [facility] HEMATOLOGY Hgb 12.4 g/dL 14.0 - 05/27 Sugar 18.0 [facility] HEMATOLOGY MCV 86.8 fL 80.0 - 05/27 Sugar 94.0 /2017 [facility] HEMATOLOGY Hct 37.4 % 42.0 - 05/27 [place] 54.0 /2017 [facility] HEMATOLOGY MCH 28.7 pg 27.0 - 05/27 [place] 31.0 [facility] HEMATOLOGY WBC 56.8 K/CMM 3.7 - 10.4 05/27 Result Comment: [facility] Critical Result(s) called to Nadeem Ayala Rn at 05/27/2017 08:53 by Bry. Read back OK. HEMATOLOGY RBC 4.31 M/CMM 4.70 - 05/27 [place] 6.10 [facility] Bladder US Bladder US EXAM: 05/27 - - [facility] Urinary bladder ultrasound. Read by: Geovanni Caballero MD Dictated Date/time: 05/27/17 09:46 CLINICAL HX: Electronically Signed by: Geovanni Caballero MD 05/27/17 09:48 FINAL REPORT Hematuria. Asba catheterization. Age: 72 years. Gender: Male. TECHNIQUE: [...] ABO/Rh A POS 05/27 [place] RESULTS /2017 [facility] BLOOD BANK Antibody Negative 05/27 [place] RESULTS Scrn [facility] (05/27/17 1:34 AM) BLOOD BANK Platelet Product available 05/27 [place] RESULTS product [facility] (05/27/17 1:25 AM) CHEM PANEL eGFR [...] meq/L 3.5 - 5.1 05/27 Sugar Lvl [facility] CHEM PANEL Chloride Lvl 107 meq/L [...] 12.5 meq/L 10.0 - 05/27 Sugar 20.0 [facility] HEMATOLOGY Bands 0.0 % 0.0 - 11.0 05/27 [facility] HEMATOLOGY RBC Morph Normal 05/27 [facility] (05/26/17 11:22 PM) HEMATOLOGY Atypical 0.0 % <=0.0 % 05/27 Lymphs [facility] HEMATOLOGY Smudge Few 05/27 [facility] HEMATOLOGY Large Plt Slight 05/27 [facility] HEMATOLOGY Tot Cell Ct 100 05/27 [facility] HEMATOLOGY Plt Morph Normal 05/27 [facility] (05/26/17 11:22 PM) HEMATOLOGY INR 1.13 0.85 - 05/27 [place] 1.17 [facility] HEMATOLOGY PT 14.5 s 12.0 - 05/27 [place] 14.7 [facility] HEMATOLOGY PTT 33.1 s 22.9 - 05/27 [place] 35.8 /2017 [facility] Brain wo Brain wo EXAM: Brain wo contrast MRI 12/28 - [facility] contrast contrast MRI /2016 - [facility] PROVIDED CLINICAL HISTORY: R53.1, Weakness, M48.02, Spinal stenosis, cervical region - . Read by: Jamie Castellon MD Dictated Date/time: 12/28/16 16:16 Electronically Signed by: Jamie Castellon MD 12/28/16 17:07 FINAL REPORT TECHNIQUE: Multi-sequence, multi-planar MR of the brain without gadolinium contrast. COMPARISON: No relevant prior exams available at the time of interpretation. FINDINGS: BRAIN: -- Two subcentimeter ovoid foci of QWI-vyx-bhdfpaloz restricted diffusion, consistent with acute lacunar infarcts, [...] an outpatient basis. 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 There was no response after several attempts, and no voicemail option was available. Several unsuccessful atte mpts were subsequently made to reach the patient at the provided number of [phone]. A generic message was left on the voicemail instructing the patient to call his referring physician's offic e for immediate further instructions and to seek emergent care if symptomatic. 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 SL: [id number] CHEM PANEL eGFR 54 09/19 Result Comment: [...] not recommended in the following populations: Medical [facility] Individuals with unstable creatinine concentrations, including [...] AGAP 15.8 meq/L 10.0 - 09/19 Result [facility] Comment: Medical Collection Center date/time has been modified to: 15:35:00. Previous collection date/time: 16:41:00. CHEM PANEL Calcium Lvl 9.9 mg/dL 8.5 - 10.5 09/19 Result Comment: Medical Collection Center date/time has been modified to: 15:35:00. Previous collection date/time: 16:41:00. CHEM PANEL CO2 27 meq/L 24 - 32 09/19 Result Comment: [facility] Collection Center date/time has been [...] 144 meq/L 135 - 145 09/19 Result [facility] Comment: Medical Collection Center date/time has been modified to: 15:35:00. Previous collection date/time: 16:41:00. CHEM PANEL Creatinine 1.31 mg/dL 0.50 - 09/19 Result [facility] 1.40 Comment: Medical Collection Center date/time has been modified to: 15:35:00. Previous collection date/time: 16:41:00. CHEM PANEL Potassium 3.8 meq/L 3.5 - 5.1 09/19 Result [facility] Comment: Medical Collection Center date/time has been modified to: 15:35:00. Previous collection date/time: 16:41:00. Spine Spine Patient Name: IDANIA TERRY 08/11 - [facility] Thoracic wo Thoracic wo - [place] contrast contrast MRI : 1945; Age: 71 years y/o Male MRI MR: [id number] Read by: Brett Valente MD Dictated Date/time: [...] canal stenosis or neural foraminal narrowing. SL: [id number] Spine Spine Study: Spine cervical wo contrast MRI 08/11 - [facility] cervical wo cervical /2016 - [place] contrast contrast MRI MRI Clinical Indication: G95.9 [...] body of the cervical spinal cord. SL: [id number] Spine Spine lumbar EXAM: XR LUMBAR SPINE 3 VIEWS 07/20 - [facility] lumbar flex/ext - [place] flex/ext 2 view DX view DX DATE: [...] Date Comments Source Heart Rate 63 05/29/2017 [place] Temperature Oral (F) 97.8 F 05/29/2017 [facility] Respitory Rate 18 05/29/2017 [facility] Systolic (mm Hg) 145 05/29/2017 [place] Diastolic (mm Hg) 83 05/29/2017 [place] Respitory Rate 18 05/29/2017 [facility] Heart Rate 64 05/29/2017 [place] Temperature Oral (F) 97.4 F 05/29/2017 [place] Systolic (mm Hg) 156 05/29/2017 [place] Diastolic (mm Hg) 86 05/29/2017 [facility] Respitory Rate 18 05/29/2017 [facility] Temperature Oral (F) 98 F 05/29/2017 [facility] Heart Rate 59 05/29/2017 [place] Systolic (mm Hg) 158 05/29/2017 [place] Diastolic (mm Hg) 69 05/29/2017 [facility] BMI Calculated 27.32 05/27/2017 [place] Height 177.8 cm 05/27/2017 [facility] Weight 86.364 05/27/2017 [place] Weight 89.545 05/27/2017 [place] Weight 90.909 12/28/2016 [facility] BMI Calculated 28.76 12/28/2016 [facility] Height 177.8 cm 12/28/2016 [facility] Heart Rate 74 12/28/2016 [facility] Systolic (mm Hg) 163 12/28/2016 [facility] Diastolic (mm Hg) 82 12/28/2016 [facility] Temperature Oral (F) 97.8 F 12/28/2016 [facility] [place] Neuro Heart Rate 89 09/24/2016 [facility] Temperature Oral (F) 97.5 F 09/24/2016 [facility] Respitory Rate 18 09/24/2016 [facility] Systolic (mm Hg) 176 09/24/2016 [facility] Diastolic (mm Hg) 83 09/24/2016 [facility] Heart Rate 84 09/24/2016 [facility] Systolic (mm Hg) 143 09/24/2016 [facility] Diastolic (mm Hg) 73 09/24/2016 [facility] Respitory Rate 17 09/24/2016 [facility] Temperature Oral (F) 98.5 F 09/24/2016 [facility] Temperature Oral (F) 98.1 F 09/24/2016 [facility] Systolic (mm Hg) 146 09/24/2016 [facility] Diastolic (mm Hg) 79 09/24/2016 [facility] Respitory Rate 18 09/24/2016 [facility] Heart Rate 70 09/24/2016 [facility] BMI Calculated 29.48 09/22/2016 [facility] Weight 93.182 09/22/2016 [facility] Height 177.8 cm 09/22/2016 [facility] Weight 90.455 09/19/2016 [facility] BMI Calculated 28.61 09/19/2016 [facility] Height 177.8 cm 09/19/2016 [facility] Encounters Location Location Encounter Encounter Reason Attending ADM DC Status Source Details Type Number For Provider Date Date Visit Outpatient [id number] TJ ALICIA 07/20 [facility] [place] [facility] [id number] Tj Alicia 07/20 07/21 [facility] [place] [facility] Out[facility] Diag [id number] Tj Alicia 08/11 08/12 [facility] [place] [facility] [place] [facility] [id number] TJ ALICIA 08/17 [facility] [place] [facility] [id number] TJ ALICIA 09/19 [facility] [place] [facility] [id number] TJ ALICIA 09/19 [facility] [place] [facility] [id number] TJ ALICIA 09/22 [facility] [id number] Tj Alicia 09/22 09/24 [facility] Outpatient [id number] [place] 10/07 [facility] [place] Outpatient [id number] TJ ALICIA 11/14 [facility] [place] [facility] Phone [id number] 12/23 12/25 [facility] Message Neuro [facility] Phone [phone] 12/26 12/28 [facility] Message Neuro Outpatient [id number] TJ ALICIA 12/28 [facility] [id number] Javi 12/28 12/29 [facility] 8 [facility] Outpt Diag [id number] Rufina 12/28 12/29 [facility] Phone [id number] 01/02 01/04 [facility] Message Neuro [facility] Phone [id number] 01/03 01/05 [facility] TM Message Neuro [facility] Phone [phone] 01/16 01/18 [facility] TM Message Neuro Outpatient [id number] TJ ALICIA 02/13 [facility] Ambulatory [id number] Javi 02/13 02/13 [facility] Pre-Reg 7 [facility] Phone [phone] 03/15 03/17 [facility] TM Message Neuro [facility] [id number] Ch[place] 05/27 05/29 [place] [facility] [place] [facility] Procedures Procedure Code Date Perfomer Comments Source Bladder 57014 05/29/2017 [facility] irrigation, simple, lavage and/or instillation Bladder [id number] 05/28/2017 [facility] irrigation, simple, lavage and/or instillation Bladder 60315 05/27/2017 [facility] irrigation, simple, lavage and/or instillation Bladder operation [id number] [facility] Drainage [id number] [facility] Lymph node [id number] [facility] operation Bladder operation [id number] [facility] [place] Drainage [id number] [facility] [place] Lymph node [id number] [facility] [place] Bladder operation [id number] [facility] [place] Drainage [id number] [facility] [place] Lymph node [id number] [facility] operation [place] Bladder operation [id number] [facility] Drainage [id number] [facility] Lymph node [id number] [facility] Bladder operation [id number] [facility] [id number] [facility] Lymph node [id number] [facility] Bladder operation [id number] [facility]age [id number] [facility] Lymph node [id number] [facility] operation
--- OUTSIDE RECORDS SUMMARY | 2017-12-10 02:29 | XMS REPORT ---
:1945 [facility] Organization [facility] Address [address] [place] [address] Dr. Hernández [address] [place] [id number] Care Team Providers Name Role Phone YARELI GARCIA Unavailable Unavailable WILL FROST Unavailable Unavailable Problems This patient has no known problems. Allergies, Adverse Reactions, Alerts This patient has no known allergies or adverse reactions. Medications This patient has no known medications. Results Test Description Test Time Test Comments Text Results Atomic Results Result Comments TISSUE EXAM 2017-08-28 17:10:00 Surgical Pathology Report Case: [id number] Authorizing Provider: Yareli Garcia MD Collected: 08/25/2017 1030 Ordering Location: [facility] Received: 08/25/2017 1434 SERVICES Pathologist: Nicolas [...] NOT PRESENT Signing Pathologist Direct Phone Line: [phone] signed by Nicolas Diaz MD on 08/28/2017 at 5:10 PMThe focus of invasion on specimen B. Is into the lamina propria of one papillary stalk and consists of on 3-4 tiny cell clusters. A. 48751S. 68492T. 43825V. 97036Qhqpmsile neoplasm of urinary bladder A. Bladder tumor [...] Value Reference Range Comments CULTURE (BEAKER) (test efsm=2323) 50-59,000 col/mL skin eunice (CELLAVISION MANUAL DIFF)2017-08-23 20:07:00 Test Item Value Reference Range Comments NEUTROPHILS - REL (CELLAVISION)(BEAKER) (test 23 % fmqe=4964) LYMPHOCYTES - REL (CELLAVISION)(BEAKER) (test 66 % onpl=6899) MONOCYTES - REL (CELLAVISION)(BEAKER) (test 2 % bjeb=8627) EOSINOPHILS - REL (CELLAVISION)(BEAKER) (test 1 % abyc=4310) BASOPHILS - REL (CELLAVISION)(BEAKER) (test 1 % icux=1987) ATYPICAL LYMPHOCYTES - REL (CELLAVISION)(BEAKER) 6 % 0-0 (test bjky=4853) NEUTROPHILS - ABS (CELLAVISION)(BEAKER) (test 16.58 K/ul 1.78-5.38 sobs=2476) LYMPHOCYTES - ABS (CELLAVISION)(BEAKER) (test 47.59 K/ul 1.32-3.57 fefq=6844) MONOCYTES - ABS (CELLAVISION)(BEAKER) (test 1.44 K/uL 0.30-0.82 yddt=1264) EOSINOPHILS - ABS (CELLAVISION)(BEAKER) (test 0.72 K/uL 0.04-0.54 jfgm=4648) BASOPHILS - ABS (CELLAVISION)(BEAKER) (test 0.72 K/uL 0.01-0.08 paba=4534) ATYPICAL LYMPHOCYTES - ABS (CELLAVISION)(BEAKER) 4.33 K/uL 0.00-0.00 (test ttvl=0384) TOTAL COUNTED (BEAKER) (test cllw=5169) 100 PLT MORPHOLOGY (BEAKER) (test roqu=155) Normal SMUDGE CELLS (BEAKER) (test wqte=3026) Present POLYCHROMATOPHILLIC RBCS(BEAKER) (test ecuk=580) 1+ few HYPOCHROMIA (BEAKER) (test gzji=424) 1+ few ANISOCYTOSIS (BEAKER) (test mgip=676) 2+ moderate MICROCYTES (BEAKER) (test ytqt=941) 2+ moderate POIKILOCYTES (BEAKER) (test drzn=514) 1+ few ARTIFACT (CELLAVISION)(BEAKER) (test wgyt=3668) Present PLATELET CONCENTRATION (CELLAVISION)(BEAKER) Adequate (test jfgz=3698) Received comment: User comments: Slide comments:CBC W/PLT COUNT & AUTO [id number] 20:06:00 Test Item Value Reference Range Comments WHITE BLOOD CELL COUNT (BEAKER) (test aiep=070) 72.1 K/ L 3.5-10.5 RED BLOOD CELL COUNT (BEAKER) (test rleo=235) 4.97 M/ L 4.63-6.08 HEMOGLOBIN (BEAKER) (test ingm=806) 13.1 GM/DL 13.7-17.5 HEMATOCRIT (BEAKER) (test auuz=579) 42.1 % 40.1-51.0 MEAN CORPUSCULAR VOLUME (BEAKER) (test mfbi=046) 84.7 fL 79.0-92.2 MEAN CORPUSCULAR HEMOGLOBIN (BEAKER) (test 26.4 pg 25.7-32.2 ynux=844) MEAN CORPUSCULAR HEMOGLOBIN CONC (BEAKER) (test 31.1 GM/DL 32.3-36.5 nawj=259) RED CELL DISTRIBUTION WIDTH (BEAKER) (test 14.5 % 11.6-14.4 efyz=625) PLATELET COUNT (BEAKER) (test xrgr=724) 247 K/CU MM 150-450 MEAN PLATELET VOLUME (BEAKER) (test awns=421) 10.6 fL 9.4-12.4 NUCLEATED RED BLOOD CELLS (BEAKER) (test 0 /100 WBC 0-0 bqub=853) RAD, CHEST, 2 [id number] 16:22:00Reason for Exam:->bladder cancer, pre- op testingFINAL [...] no acute cardiopulmonary abnormality. Signed: Brett Valente MDRepm[facility] Verified Date/Time: 08/23/2017 16:22:14 Reading Location: [address] Reading Room Electronically signed by: BRETT VALENTE MD on 04:22 [facility] [id number] 16:10:00 Test Item Value Reference Range Comments SODIUM (BEAKER) (test 140 meq/L 136-145 bxzk=104) POTASSIUM (BEAKER) (test 3.9 meq/L 3.5-5.1 uisf=757) CHLORIDE (BEAKER) (test 104 meq/L 98-107 wdcm=029) CO2 (BEAKER) (test 25 meq/L 22-29 cmno=643) BLOOD UREA NITROGEN 29 mg/dL 7-21 (BEAKER) (test wzjw=380) CREATININE (BEAKER) (test 1.59 mg/dL 0.57-1.25 smmg=158) GLUCOSE RANDOM (BEAKER) 80 mg/dL 70-105 (test axxd=952) CALCIUM (BEAKER) (test 9.8 mg/dL 8.4-10.2 aupg=339) EGFR (BEAKER) (test 43 mL/min/1.73 sq m ESTIMATED GFR IS NOT bmbm=2492) ACCURATE CREATININE CLEARANCE IN PREDICTING GLOMERULAR FILTRATION RATE. ESTIMATED GFR IS NOT APPLICABLE FOR DIALYSIS PATIENTS. URINALYSIS W/ [id number] 16:01:00 Test Item Value Reference Range Comments COLOR (BEAKER) (test gmwi=388) Light Yellow CLARITY (BEAKER) (test ecqz=520) Clear SPECIFIC GRAVITY UA (BEAKER) (test nbgk=760) 1.012 1.001-1.035 PH UA (BEAKER) (test xtbu=966) 7.0 5.0-8.0 PROTEIN UA (BEAKER) (test niyd=163) 50 mg/dL Negative GLUCOSE UA (BEAKER) (test lmxy=624) Negative Negative KETONES UA (BEAKER) (test hlam=888) Negative Negative BILIRUBIN UA (BEAKER) (test sdju=960) Negative Negative BLOOD UA (BEAKER) (test vaio=579) Negative Negative NITRITE UA (BEAKER) (test fwja=613) Negative Negative LEUKOCYTE ESTERASE UA (BEAKER) (test kjys=170) Negative Negative UROBILINOGEN UA (BEAKER) (test bvpo=777) 0.2 mg/dL 0.2-1.0 RBC UA (BEAKER) (test yiah=481) 1 /HPF WBC UA (BEAKER) (test byak=465) < /HPF MUCUS (BEAKER) (test guwv=6112) Rare SOURCE(BEAKER) (test vxeb=5854) [id number] 15:55:00 Test Item Value Reference Range Comments PARTIAL THROMBOPLASTIN TIME (BEAKER) (test 31.6 seconds 22.5-36.0 yiaw=710) PROTHROMBIN TIME/[id number] 15:54:00 Test Item Value Reference Range Comments PROTIME (BEAKER) (test gybb=722) 14.8 seconds 11.7-14.7 INR (BEAKER) (test uzhd=798) 1.2 <=5.9 RECOMMENDED COUMADIN/WARFARIN INR THERAPY RANGESSTANDARD DOSE: 2.0 - 3.0 Includes: PROPHYLAXIS forvenous thrombosis, systemic embolization; TREATMENT for venous thrombosis and/or pulmonary embolus.HIGH RISK: Target INR is 2.5-3.5 for patients with mechanical heart valves.HEMOGLOBIN [id number] 11:52:00 Test Item Value Reference Range Comments HEMOGLOBIN A1C (BEAKER) (test qbfm=130) 6.9 % 4.3-6.1 [id number] 11:12:00 Test Item Value Reference Range Comments RPR SCREEN (BEAKER) (test yqvd=065) Nonreactive Nonreactive CBC W/PLT COUNT & AUTO [id number] 10:31:00 Test Item Value Reference Range Comments WHITE BLOOD CELL COUNT (BEAKER) (test wjvm=635) 23.5 K/ L 3.5-10.5 RED BLOOD CELL COUNT (BEAKER) (test tzwc=731) 3.90 M/ L 4.63-6.08 HEMOGLOBIN (BEAKER) (test hyqj=908) 11.0 GM/DL 13.7-17.5 HEMATOCRIT (BEAKER) (test sbnc=721) 34.6 % 40.1-51.0 MEAN CORPUSCULAR VOLUME (BEAKER) (test qrvs=529) 88.7 fL 79.0-92.2 MEAN CORPUSCULAR HEMOGLOBIN (BEAKER) (test 28.2 pg 25.7-32.2 zchh=164) MEAN CORPUSCULAR HEMOGLOBIN CONC (BEAKER) (test 31.8 GM/DL 32.3-36.5 phbd=481) RED CELL DISTRIBUTION WIDTH (BEAKER) (test 14.2 % 11.6-14.4 vqbq=152) PLATELET COUNT (BEAKER) (test kgxc=398) 230 K/CU MM 150-450 MEAN PLATELET VOLUME (BEAKER) (test rfvp=184) 10.6 fL 9.4-12.4 NUCLEATED RED BLOOD CELLS (BEAKER) (test 0 /100 WBC 0-0 dvnt=421) NEUTROPHILS RELATIVE PERCENT (BEAKER) (test 32 % rugq=862) LYMPHOCYTES RELATIVE PERCENT (BEAKER) (test 64 % gwpy=784) MONOCYTES RELATIVE PERCENT (BEAKER) (test 3 % tiqv=329) EOSINOPHILS RELATIVE PERCENT (BEAKER) (test 0 % ousk=930) BASOPHILS RELATIVE PERCENT (BEAKER) (test 0 % aglk=366) NEUTROPHILS ABSOLUTE COUNT (BEAKER) (test 7.57 K/ L 1.78-5.38 yeyq=443) LYMPHOCYTES ABSOLUTE COUNT (BEAKER) (test 15.04 K/ L 1.32-3.57 muxi=720) MONOCYTES ABSOLUTE COUNT (BEAKER) (test 0.68 K/ L 0.30-0.82 nlgi=871) EOSINOPHILS ABSOLUTE COUNT (BEAKER) (test 0.03 K/ L 0.04-0.54 hduo=783) BASOPHILS ABSOLUTE COUNT (BEAKER) (test 0.08 K/ L 0.01-0.08 ckvx=687) IMMATURE GRANULOCYTES-RELATIVE PERCENT (BEAKER) 0 % 0-1 (test iixq=1007) (MANUAL DIFFERENTIAL)2017-01-29 10:31:00 Test Item Value Reference Range Comments TOTAL COUNTED (BEAKER) (test hwrp=8068) PLT MORPHOLOGY (BEAKER) (test wagc=715) Normal RBC MORPHOLOGY (BEAKER) (test azkk=126) Normal ATYPICAL LYMPHS(BEAKER) (test miff=0055) Present SMUDGE CELLS (BEAKER) (test lxbx=0887) Present VITAMIN [id number] 08:02:00 Test Item Value Reference Range Comments VITAMIN B12 (BEAKER) (test zlay=201) 346 pg/mL 213-816 TSH/FREE T4 IF [id number] 08:02:00 Test Item Value Reference Range Comments THYROID STIMULATING HORMONE (BEAKER) (test 1.37 uIU/mL 0.35-4.94 bgbe=608) CREATINE KINASE (CK), TOTAL AND [id number] 07:55:00 Test Item Value Reference Range Comments CREATINE KINASE TOTAL (BEAKER) (test fmnd=905) 72 U/L 29-200 CREATINE KINASE-MB (BEAKER) (test wbck=759) 0.5 ng/mL 0.0-6.6 CREATINE KINASE-MB INDEX (BEAKER) (test udtq=695) 0.7 % CK-MB Reference Range:<6.7 Normal6.7-10.0 Borderline>10.0 AbnormalTROPONIN [id number] 07:55:00 Test Item Value Reference Range Comments TROPONIN I (BEAKER) (test wvvr=766) 0.02 ng/mL 0.00-0.03 Troponin I (TnI) levels [...] acidosis, acute neurological disease, and persistent tachyarrhythmia.LIPID [id number] 07:39:00 Test Item Value Reference Range Comments TRIGLYCERIDES (BEAKER) (test mxyn=962) 175 mg/dL CHOLESTEROL (BEAKER) (test thfy=190) 104 mg/dL HDL CHOLESTEROL (BEAKER) (test grvm=915) 21 mg/dL LDL CHOLESTEROL CALCULATED (BEAKER) (test 48 mg/dL wwmq=160) Triglyceride Reference Range: Low Risk <150 Borderline 150- 199 High Risk 200-499 Very High Risk >=500Cholesterol Reference Range: Low Risk <200 Borderline 200-239 High Risk > 240HDL Cholesterol Reference Range: Low Risk >=60 High Risk <40LDL Cholesterol Reference Range: Optimal <100 Near Optimal 100-129 Borderline 130-159 High 160-189 Very High >=190BASIC METABOLIC [id number] 07:39:00 Test Item Value Reference Range Comments SODIUM (BEAKER) (test 141 meq/L 136-145 lqyt=117) POTASSIUM (BEAKER) (test 3.7 meq/L 3.5-5.1 cjip=413) CHLORIDE (BEAKER) (test 108 meq/L 98-107 dusp=149) CO2 (BEAKER) (test 23 meq/L 22-29 vbqo=457) BLOOD UREA NITROGEN 20 mg/dL 7-21 (BEAKER) (test uina=973) CREATININE (BEAKER) (test 1.41 mg/dL 0.57-1.25 vdvj=226) GLUCOSE RANDOM (BEAKER) 111 mg/dL 70-105 (test dvon=779) CALCIUM (BEAKER) (test 9.3 mg/dL 8.4-10.2 uuuc=432) EGFR (BEAKER) (test 49 mL/min/1.73 sq m ESTIMATED GFR IS NOT osiy=1167) ACCURATE CREATININE CLEARANCE IN PREDICTING GLOMERULAR FILTRATION RATE. ESTIMATED GFR IS NOT APPLICABLE FOR DIALYSIS PATIENTS. MR, MRA, BRAIN, WITHOUT [id number] 04:30:00Reason for exam:-> Ischemic Stroke EvaluationFINAL REPORT [...] MDReport Verified Date/Time: 01/29/2017 04:30:36 Reading Location: [facility] C013X [facility] Consult Reading Room Electronically signed by: ZELALEM MACIEL MD on 2016 04:30 AMMR, MRA, NECK, WITHOUT IV [id number] 04:30:00Reason for exam:->Ischemic Stroke EvaluationFINAL REPORT MR, [...] Verified Date/Time: 01/29/2017 04 :30:36 Reading Location: [address] Reading Room MR, BRAIN, WITHOUT [id number] 04:30:00Reason for exam:->Ischemic Stroke EvaluationFINAL REPORT MR, [...] MDReport Verified Date/Time: 01/29/2017 04:30:36 Reading Location: [facility] C[address] [facility] Reading Room Electronically signed by: ZELALEM MACIEL MD on 2016 04:30 AM
[2017-12-10] MEDS ORDERED: ADENOSINE 6 MG/ 2ML VIAL IV ONE ×2 (02:52→02:58)
[2017-12-10] MEDS ORDERED: NA CHLORIDE 0.9% 1,000 ML ONE (02:53)
[2017-12-10 03:19] LABS: Absolute Lymphocytes (CBC) 89.1 K/uL (0.7-4.9); Absolute Monocytes 1.5 K/uL (0.1-1.3); Absolute Neutrophil 9.6 K/uL (1.8-8.0); Basophils % 0.2 % (0-1.3); Eosinophils % 0.9 % (0-4.4); Hematocrit 43.4 % (39.6-49.0); Lymphocytes % 87.9 % (15.3-44.8); MCH 28.2 pg (27.0-35.0); MCV 87.5 fL (80-100); Monocytes % 1.5 % (3.3-12.3); RBC Red Blood Cell Count 4.96 M/uL (4.33-5.43)
[2017-12-10 03:22] LABS: Protime INR 1.21
[2017-12-10 03:34] LABS: Blood Morphology Comment NOT SEEN (NOT SEEN); Platelet Estimate ADEQ
[2017-12-10 03:35] LABS: ALT/SGPT 20 U/L (12-78); AST/SGOT 17 U/L (15-37); Albumin 3.7 g/dL (3.4-5.0); Alkaline Phosphatase 103 U/L (45-117); BUN Blood Urea Nitrogen 26 mg/dL (7-18); Bicarbonate 26 mmol/L (21-32); Bilirubin Direct 0.1 mg/dL (0-0.2); Bilirubin Total 0.3 mg/dL (0.2-1.0); Glucose Level 145 mg/dL (74-106); Magnesium 2.3 mg/dL (1.8-2.4); NT PRO-BNP 1514 pg/mL (<125); Potassium 3.7 mmol/L (3.5-5.1); Sodium Level 143 mmol/L (136-145); Troponin (Emerg Dept Use Only) < 0.02 ng/mL (0.0-0.045)
--- NOTE | 2017-12-10 04:03 | P.CNS ---
Date of Consult: 12/10/17 Reason for Consult: Supraventricular tachycardia Requesting Physician: Calin Bailey Chief Complaint: Shortness of breath History of Present Illness: Mr Mustafa is a 72-year-old male with history of CLL, hypertension, SVT, CKD, who was at home when he started feeling suddenly shortness of breath. He denied any chest pain, dizziness or lightheadedness. In ER he was found to be tachycardic about 150s. EKG shows supraventricular tachycardia. Blood pressure was 86/65, decided shortness of breath, the patient does not have other symptoms. I was consulted to evaluate and comanage his treatment. Lab work remarkable for leukocytosis 101 K (last lab work he had 72 K) troponin I negative. Allergies meperidine [From Demerol] Allergy (Verified 01/16/17 23:29) Unknown pseudoephedrine Allergy (Verified 01/16/17 23:29) unknown Home medications list reviewed: Yes Home Medications: Rosuvastatin [Crestor*] 10 mg PO DAILY 04/25/14 Aspirin [Adult Low Dose Aspirin EC] 81 mg PO BID 01/03/17 Clopidogrel Bisulfate [Plavix*] 75 mg PO DAILY 01/03/17 cloNIDine HCl [Catapres*] 0.1 mg PO QID PRN #60 tab 01/16/17 Matzim 360 mg PO DAILY 01/17/17 Apixaban [Eliquis *] 2.5 mg PO BID #0 tablet 01/28/17 Clopidogrel Bisulfate [Plavix*] 75 mg PO DAILY tablet 01/28/17 Cranberry Fruit Extract 200 mg PO DAILY #0 cap 01/28/17 Diltiazem Cd [Cardizem Cd*] 240 mg PO DAILY cap 01/28/17 Lisinopril [Prinivil*] 40 mg PO BID tab 01/28/17 Melatonin [Melatonin*] 3 mg PO BEDTIME PRN PRN tablet 01/28/17 Nebivolol HCl [Bystolic*] 10 mg PO DAILY tab 01/28/17 Ondansetron [Zofran (Odt)*] 4 mg PO Q6H PRN tab 01/28/17 Rosuvastatin [Crestor*] 10 mg PO BEDTIME tab 01/28/17 Tamsulosin [Flomax*] 0.4 mg PO BEDTIME cap 01/28/17 - Past Medical/Surgical History Diabetic: No -: HTN, -: COPD -: SVT -: DM -: AAA -: Bladder cancer. -: CVA 1997 -: CLL -: REMOVAL OF THORACIC HEMATOMA -: bladder resection x2 -: LAMINECTOMY - Family History Father Medical History: Cancer - Social History Smoking Status: Current every day smoker Counseled patient to stop smoking for: less than 10 minutes Alcohol use: Yes CD- Drugs: No Caffeine use: Yes Place of Residence: Home Review of Systems 10-point ROS is otherwise unremarkable Physical Examination General: Alert, In no apparent distress HEENT: Atraumatic, PERRLA, Mucous membr. moist/pink, EOMI, Sclerae nonicteric Neck: Supple, 2+ carotid pulse no bruit, No LAD, Without JVD or thyroid abnormality Respiratory: Clear to auscultation bilaterally, Normal air movement Cardiovascular: Regular rate/rhythm (Tachycardic), Normal S1 S2 Gastrointestinal: Normal bowel sounds, No tenderness Musculoskeletal: No tenderness Integumentary: No rashes Neurological: Normal speech, Normal tone, Normal affect Lymphatics: No axilla or inguinal lymphadenopathy Laboratory Data (last 24 hrs) 12/10/17 02:50: PT 14.3 H, INR 1.21 12/10/17 02:50: WBC 101.3 H*, Hgb 14.0, Hct 43.4, Plt Count 281 12/10/17 02:50: Sodium 143, Potassium 3.7, BUN 26 H, Creatinine 1.90 H, Glucose 145 H, Magnesium 2.3, Total Bilirubin 0.3, AST 17, ALT 20, Alkaline Phosphatase 103 - Problems (1) Supraventricular tachycardia Current Visit: Yes Status: Acute (2) Dyspnea Current Visit: Yes Status: Acute Qualifiers: Dyspnea type: shortness of breath Qualified Code(s): R06.02 - Shortness of breath; R06.00 - Dyspnea, unspecified; R06.01 - Orthopnea (3) CLL (chronic lymphocytic leukemia) Onset Date: 01/12/17 Current Visit: No Status: Acute (4) CKD (chronic kidney disease) Current Visit: Yes Status: Acute Qualifiers: Chronic kidney disease stage: stage 3 (moderate) Qualified Code(s): N18.3 - Chronic kidney disease, stage 3 (moderate) Conclusions/Impression: The patient came to ED complaining of dyspnea secondary to supraventricular tachycardia. His blood pressure was borderline low. He was initially treated with adenosine 6 mg push without success, subsequently he received 12 mg of adenosine, which was effective, and the patient converted back to sinus rhythm. At this point the patient is hemodynamically stable, and he can be discharged home, and follow up with his PCP and life skills instructor next week.
--- NOTE | 2017-12-10 04:04 | EDPHYS ---
Physician Documentation [facility] Name: Duke Marin III Age: 72 yrs Sex: Male : 1945 Arrival Date: 12/10/2017 Time: 02:27 Bed 4 Private MD: Javi Looney ED Physician Calin Bailey HPI: 12/10 03:00 This 72 yrs old Male presents to ER via Wheelchair with complaints of Rapid pkl heart beat. 03:00 The patient presents with a history of heart racing. Context: The symptoms occur at pkl rest. Onset: The symptoms/episode began/occurred just prior to arrival, 1 hour(s) ago. Associated signs and symptoms: The patient has no apparent associated signs or symptoms. The patient has experienced similar episodes in the past, a few times. Historical: - Allergies: 02:47 Pseudoephedrine; lp1 - Home Meds: 02:47 aspirin 81 mg Oral chew [Active]; Bystolic 10 mg oral tab once daily [Active]; Bystolic lp1 5 mg oral tab nightly [Active]; "Cardia" 240mg Daily [Active]; valsartan 75 mg Oral once daily [Active]; Crestor 10 mg Oral tab 1 tab once daily [Active]; Plavix 75 mg Oral tab 1 tab once daily [Active]; - PMHx: 02:47 Atrial Fib; Bladder cancer; CLL; CVA; enlarged aorta; Hypertension; SVT; lp1 - PSHx: 02:47 bladder resection x2; lp1 - Immunization history:: Adult Immunizations up to date. - Social history:: Smoking status: Patient/guardian denies using tobacco. - Ebola Screening: : No symptoms or risks identified at this time. ROS: 03:00 Eyes: Negative for injury, pain, redness, and discharge, ENT: Negative for injury, pkl pain, and discharge, Neck: Negative for injury, pain, and swelling. 03:00 Cardiovascular: Positive for palpitations, Negative for chest pain. 03:00 Respiratory: Negative for cough, shortness of breath. 03:00 Abdomen/GI: Negative for abdominal pain, nausea, vomiting, and diarrhea. 03:00 Back: Negative for acute changes. 03:00 : Negative for urinary symptoms. 03:00 MS/extremity: Negative for acute changes. 03:00 Skin: Negative for rash. 03:00 Neuro: Negative for altered mental status. Exam: 03:00 Head/Face: Normocephalic, atraumatic. Eyes: Pupils equal round and reactive to light, pkl extra-ocular motions intact. Lids and lashes normal. Conjunctiva and sclera are non-icteric and not injected. Cornea within normal limits. Periorbital areas with no swelling, redness, or edema. ENT: Nares patent. No nasal discharge, no septal abnormalities noted. Tympanic membranes are normal and external auditory canals are clear. Oropharynx with no redness, swelling, or masses, exudates, or evidence of obstruction, uvula midline. Mucous membranes moist. Neck: Trachea midline, no thyromegaly or masses palpated, and no cervical lymphadenopathy. Supple, full range of motion without nuchal rigidity, or vertebral point tenderness. No Meningismus. Chest/axilla: Normal chest wall appearance and motion. Nontender with no deformity. No lesions are appreciated. 03:00 Cardiovascular: Rate: tachycardic, actual rate is 140 bpm, Rhythm: regular. 03:00 ECG was reviewed by the Attending Physician. 03:00 Respiratory: the patient does not display signs of respiratory distress, Respirations: normal, Breath sounds: are clear throughout. 03:00 Abdomen/GI: Exam negative for acute changes. 03:00 Back: Exam negative for acute changes. 03:00 : Exam negative for acute changes. 03:00 Musculoskeletal/extremity: Exam is negative for acute changes. 03:00 Skin: Exam negative for rash. 03:00 Neuro: Orientation: is normal, Mentation: is normal, Cranial nerves: grossly normal, Motor: is normal. Vital Signs: 02:30 BP 86 / 57; Pulse 140; Resp 18; Temp 97.7(O); Pulse Ox 99% on R/A; Weight 90.72 kg; lp1 Height 5 ft. 10 in. (177.80 cm); Pain 0/10; 02:33 BP 91 / 70; Pulse 139; Resp 20; Pulse Ox 95% on R/A; lp1 02:40 BP 90 / 59; Pulse 138; Resp 22; Pulse Ox 95% on R/A; lp1 03:15 BP 114 / 76; Pulse 69; Resp 18; Pulse Ox 95% ; ea 04:30 BP 116 / 74; Pulse 68; Resp 18; Pulse Ox 96% on R/A; ea 02:30 Body Mass Index 28.70 (90.72 kg, 177.80 cm) lp1 MDM: 02:29 Patient medically screened. pkl 04:01 Data reviewed: vital signs, nurses notes, lab test result(s), EKG, radiologic studies, pkl plain films. ED course: Patient feeling much better. Asymptomatic. 12/10 02:54 Order name: Basic Metabolic Panel pkl 12/10 02:54 Order name: CBC with Diff pkl 12/10 02:54 Order name: LFT's pkl 12/10 02:54 Order name: Magnesium pkl 12/10 02:54 Order name: NT PRO-BNP; Complete Time: 03:38 pkl 12/10 02:54 Order name: PT-INR; Complete Time: 03:38 pkl 12/10 02:54 Order name: Troponin (emerg Dept Use Only); Complete Time: 03:38 pkl 12/10 02:54 Order name: XRAY Chest (1 view) pkl 12/10 02:55 Order name: Basic Metabolic Panel; Complete Time: 03:38 EDMS 12/10 02:55 Order name: CBC with Automated Diff; Complete Time: 03:38 EDMS 12/10 02:55 Order name: Liver (Hepatic) Function; Complete Time: 03:38 EDMS 12/10 02:55 Order name: Magnesium; Complete Time: 03:38 EDMS 12/10 03:34 Order name: Manual Differential; Complete Time: 03:38 EDMS 12/10 02:54 Order name: EKG; Complete Time: 02:55 pkl 12/10 02:54 Order name: Cardiac monitoring; Complete Time: 02:59 pkl 12/10 02:54 Order name: EKG - Nurse/Tech; Complete Time: 02:59 pkl 12/10 02:54 Order name: IV Saline Lock; Complete Time: 02:59 pkl 12/10 02:54 Order name: Labs collected and sent; Complete Time: 02:59 pkl 12/10 02:54 Order name: O2 Per Protocol; Complete Time: 02:59 pkl 12/10 02:54 Order name: O2 Sat Monitoring; Complete Time: 03:00 pkl Administered Medications: 02:50 Drug: Adenosine 6 mg Route: IVP; Site: right forearm; ea 02:51 Follow up: Response: No adverse reaction ea 02:55 Drug: Adenosine 12 mg Route: IVP; Site: right forearm; ea 02:57 Follow up: Response: No adverse reaction; Marked relief of symptoms ea Disposition: 12/10/17 04:03 Discharged to Home. Impression: Supraventricular tachycardia. - Condition is Stable. - Medication Reconciliation Form, Thank You Letter, Antibiotic Education, Prescription Opioid Use form. - Follow up: Javi Looney MD; When: 2 - 3 days; Reason: Re-evaluation by your physician. - Problem is new. - Symptoms are resolved. Signatures: Dispatcher [employer] EDMS Calin Bailey MD MD pkl Edilia Loaiza RN RN lp Radha Ferraro RN RN ea Corrections: (The following items were deleted from the chart) 04:31 04:03 12/10/2017 04:03 Discharged to Home. Impression: Supraventricular tachycardia. ea Condition is Stable. Forms are Medication Reconciliation Form, Thank You Letter, Antibiotic Education, Prescription Opioid Use. Follow up: Javi Looney; When: 2 - 3 days; Reason: Re-evaluation by your physician. Problem is new. Symptoms are resolved. pkl
--- NOTE | 2017-12-10 04:04 | ER ---
Nurse's Notes [facility] Name: Duke Marin III Age: 72 yrs Sex: Male : 1945 Arrival Date: 12/10/2017 Time: 02:27 Bed 4 Private MD: Javi Looney Diagnosis: Supraventricular tachycardia Presentation: 12/10 02:43 Presenting complaint: Patient states: He did not feel good, checked his HR at home and lp1 it was 154; States hx of SVT; Denies any chest pain, N/V. Transition of care: patient was not received from another setting of care. Onset of symptoms was December 10, 2017. Risk Assessment: Do you want to hurt yourself or someone else? Patient reports no desire to harm self or others. Initial Sepsis Screen: Does the patient meet any 2 criteria? No. Patient's initial sepsis screen is negative. Does the patient have a suspected source of infection? No. Patient's initial sepsis screen is negative. Care prior to arrival: None. 02:43 Method Of Arrival: Wheelchair lp1 02:43 Acuity: PARAG 2 lp1 Historical: - Allergies: 02:47 Pseudoephedrine; lp1 - Home Meds: 02:47 aspirin 81 mg Oral chew [Active]; Bystolic 10 mg oral tab once daily [Active]; Bystolic lp1 5 mg oral tab nightly [Active]; "Cardia" 240mg Daily [Active]; valsartan 75 mg Oral once daily [Active]; Crestor 10 mg Oral tab 1 tab once daily [Active]; Plavix 75 mg Oral tab 1 tab once daily [Active]; - PMHx: 02:47 Atrial Fib; Bladder cancer; CLL; CVA; enlarged aorta; Hypertension; SVT; lp1 - PSHx: 02:47 bladder resection x2; lp1 - Immunization history:: Adult Immunizations up to date. - Social history:: Smoking status: Patient/guardian denies using tobacco. - Ebola Screening: : No symptoms or risks identified at this time. Screenin:48 Abuse screen: Denies threats or abuse. Denies injuries from another. Nutritional lp1 screening: No deficits noted. Tuberculosis screening: No symptoms or risk factors identified. Fall Risk Total Lu[place] Fall Scale indicates High Risk Score (45 or more points). Fall prevention measures have been instituted. Side Rails Up X 2 Family Present and informed to notify staff if the need to leave the bedside As available patient and family educated on Fall Prevention Program and Strategies. Assessment: 03:00 General: Appears in no apparent distress. Behavior is calm, cooperative, appropriate ea for age. Pain: Denies pain. Neuro: Level of Consciousness is awake, alert, obeys commands, Oriented to person, place, time, situation. Cardiovascular: Heart tones S1 S2 present Patient's skin is warm and dry. Respiratory: Airway is patent Respiratory effort is even, unlabored, Respiratory pattern is symmetrical, tachypnea Breath sounds are clear bilaterally. GI: No signs and/or symptoms were reported involving the gastrointestinal system. : No signs and/or symptoms were reported regarding the genitourinary system. Derm: Skin is pink, warm \\T\\ dry. 04:28 Reassessment: Patient and/or family updated on plan of care and expected duration. Pain ea level reassessed. Patient is alert, oriented x 3, equal unlabored respirations, skin warm/dry/pink. Discharge instructions given to patient, verbalized the understanding of instruction. Patient states feeling better. Patient states symptoms have improved. Vital Signs: 02:30 BP 86 / 57; Pulse 140; Resp 18; Temp 97.7(O); Pulse Ox 99% on R/A; Weight 90.72 kg; lp1 Height 5 ft. 10 in. (177.80 cm); Pain 0/10; 02:33 BP 91 / 70; Pulse 139; Resp 20; Pulse Ox 95% on R/A; lp1 02:40 BP 90 / 59; Pulse 138; Resp 22; Pulse Ox 95% on R/A; lp1 03:15 BP 114 / 76; Pulse 69; Resp 18; Pulse Ox 95% ; ea 04:30 BP 116 / 74; Pulse 68; Resp 18; Pulse Ox 96% on R/A; ea 02:30 Body Mass Index 28.70 (90.72 kg, 177.80 cm) lp1 ED Course: 02:27 Patient arrived in ED. es 02:28 Javi Looney MD is Private Physician. es 02:28 Radha Ferraro RN is Primary Nurse. ea 02:28 Calin Bailey MD is Attending Physician. pkl 02:40 Inserted saline lock: 20 gauge in right forearm, using aseptic technique. Blood ea collected. 02:45 Triage completed. lp1 02:45 Arm band placed on right wrist. lp1 02:47 Patient has correct armband on for positive identification. Placed in gown. Bed in low lp1 position. Call light in reach. laboratory monitor on. Pulse ox on. NIBP on. 02:48 EKG done, by ED staff, reviewed by Calin Bailey MD. lp1 03:09 X-ray completed. Portable x-ray completed in exam room. Patient tolerated procedure 1 well. 03:11 XRAY Chest (1 view) In Process Unspecified. EDMS 04:02 Javi Looney MD is Referral Physician. pkl 04:27 No provider procedures requiring assistance completed. IV discontinued, intact, ea bleeding controlled, No redness/swelling at site. Pressure dressing applied. Administered Medications: 02:50 Drug: Adenosine 6 mg Route: IVP; Site: right forearm; ea 02:51 Follow up: Response: No adverse reaction ea 02:55 Drug: Adenosine 12 mg Route: IVP; Site: right forearm; ea 02:57 Follow up: Response: No adverse reaction; Marked relief of symptoms ea Outcome: 04:03 Discharge ordered by . pkl 04:28 Discharged to home via wheelchair, with family. ea 04:28 Condition: improved 04:28 Discharge instructions given to patient, family, Instructed on discharge instructions, follow up and referral plans. Demonstrated understanding of instructions, follow-up care. 04:31 Patient left the ED. ea Signatures: Dispatcher [employer] EDND Calin Bailey MD MD pkl Nga Azevedo Martha [facility] Edilia Loaiza RN RN [facility] Radha Ferraro RN RN ea Corrections: (The following items were deleted from the chart) 02:48 02:30 BP 86 / 57; Pulse 140bpm; Resp 18bpm; Pulse Ox 99% RA; Temp 97.7F Oral; lp1 lp1
[2017-12-10 05:00] VITALS: TEMP 97.7
[2017-12-10 05:04] VITALS: BP 116/74; O2SAT 96
--- NOTE | 2017-12-10 06:06 | EKG ---
Test Date: 2017-12-10 Test Time: 03:35:35 Supervisor [employer] Finishing: MEASUREMENT RESULTS: Intervals: Rate: 141 IA: QRSD: 84 QT: 350 QTc: 536 [place]: P: IA: QRS: -15 T: 91 INTERPRETIVE STATEMENTS: Supraventricular tachycardia (possibly atrial flutter) with occasional premature ventricular complexes Nonspecific ST and T wave abnormality Abnormal ECG Compared to ECG 11/09/2017 14:05:46 ST (T wave) deviation now present Sinus rhythm no longer present Left ventricular hypertrophy no longer present T-wave abnormality no longer present Prolonged QT interval no longer present Electronically Signed On 12-10-17 06:05:29 WATER RIGHTS SPECIALIST by Riki Gu
--- NOTE | 2017-12-10 08:52 | RAD REPORT ---
EXAM DESCRIPTION: RAD - Chest Single View - 12/10/2017 3:12 am CLINICAL HISTORY: Tachycardia, shortness of breath COMPARISON: November 09 TECHNIQUE: AP portable chest image was obtained 0258 hours . FINDINGS: Lung volumes are low. No pulmonary edema, failure or volume overload suspected. Interstiti al markings are slightly less prominent than November 09. Trachea is midline. Mediastinum is accentuate d by slight rotation. No cardiomegaly. Resuscitation paddles overlie the chest. No measurable pleural effusion and no pneumothorax. No acute bony abnormality seen. No acute aortic findings suspected. IMPRESSION: Shallow inspiration film without acute cardiopulmonary finding.
--- NOTE | 2017-12-10 10:20 | EKG ---
Test Date: 2017-12-10 Test Time: 03:53:48 Audio Visual Production Specialist: MEASUREMENT RESULTS: Intervals: Rate: 69 NM: 204 QRSD: 88 QT: 434 QTc: 465 [place]: P: 28 NM: 204 QRS: -30 T: 115 INTERPRETIVE STATEMENTS: Sinus rhythm with occasional premature ventricular complexes Left axis deviation Minimal voltage criteria for LVH, may be normal variant ST & T wave abnormality, consider lateral ischemia Abnormal ECG Compared to ECG 12/10/2017 03:35:35 Left-axis deviation now present Left ventricular hypertrophy now present Supraventricular tachycardia no longer present ST (T wave) deviation still present Electronically Signed On 12-10-17 10:19:37 SERVICER TRAVEL TRAILERS by Riki Gu
== END 2017-12-10 04:31 | disposition home or self-care (01) ==
LOC: ER 02:23
DX: I47.1 Supraventricular tachycardia (principal); I10 Essential (primary) hypertension; I48.91 Unspecified atrial fibrillation; Z79.01 Long term (current) use of anticoagulants; Z79.82 Long term (current) use of aspirin; Z88.8 Allergy status to other drugs, medicaments and biological substances; Z85.51 Personal history of malignant neoplasm of bladder
CPT/HCPCS: 36415; 71045; 80048; 80076; 83735; 83880; 84484; 85025; 85610; 93005 ×2; 96374; 99285; J0153 ×2; J7030

== ENCOUNTER 2017-12-27 15:31 | Emergency (ER) | payer OTHER ==
--- OUTSIDE RECORDS SUMMARY | 2017-12-27 15:34 | XMS REPORT | Clinical Summary ---
:1945 Author Organization [facility] Address [address] [place] [address] Care Team Providers Name Role Phone Javi Looney MD Primary Care Provider Allergies Active Allergy Reactions Severity Noted Date Comments Clonidine High 01/28/2017 Makes him extremely depressed Coconut Swelling 01/29/2017 Lip and tongue swelling Pseudoephedrine Other (See Comments) 01/28/2017 Irregular heart beat Medications Medication Sig Dispensed Refills Start Date End Date Status rosuvastatin TK 1 T PO QD 2 04/27/2016 Active (CRESTOR) 10 MG tablet clopidogrel Take 75 mg by 0 Active (PLAVIX) 75 mg mouth daily. tablet [...] aspirin 325 MG Take 325 mg by 0 Discontinued tablet mouth daily. 8 amoxicillin-pot TK 1 T PO BID 0 05/24/2016 Discontinued clavulanate 8 (AUGMENTIN) 875-125 mg per tablet aspirin (ECOTRIN) Take 81 mg by 0 Discontinued 81 MG enteric mouth 2 (two) 8 coated tablet times a day. Hospital, Clinic, or Other Ordered Dose Route Frequency Start Date End Date Status Facility Administered Medication aspirin (ECOTRIN) enteric 81 mg oral daily 04/24/2017 Active coated tablet 81 mgIndications: Cerebral infarction, unspecified mechanism (HCC) Active Problems Problem Noted Date Mitral valve [...] Cerebral infarction, unspecified mechanism (Primary Dx) after 12/26/2016 Family History Medical History Relation Name Comments [...] Comments COLON CANCER SCREENING 1995 SHINGRIX VACCINE (1 of 2) 1995 ZOSTER VACCINE 2005 PNEUMOCOCCAL POLYSACCHARIDE VACCINE [...] in unspecified the results mechanism section. after 12/26/2016 Results Outpatient EEG (05/30/2017 7:03 AM CDT) Narrative Performed At EEG AWAKE/DROWSY LESS THAN [...] ICD-10 Code: R56.9 Estimated GFR (05/15/2017 2:28 PM CDT) GFR Non Af Amer 50 (A) mL/min/1.73 m2 [facility] DEPARTMENT OF PATHOLOGY AND [facility] GFR Af Amer 60 mL/min/1.73 m2 [facility] DEPARTMENT OF Comment: PATHOLOGY AND GENOMIC Chronic kidney disease: <60 mL/min/1.73m2 MEDICINE Kidney [...] Americans. Specimen Plasma specimen Performing Organization Address City/[facility] Phone Number [facility] DEPARTMENT OF PATHOLOGY [address] [place] [address]. [place] [address] AND [facility] Sedimentation rate (05/15/2017 2:28 PM CDT) Sedimentation rate 4 0 - 10 mm/hr [facility] DEPARTMENT OF PATHOLOGY AND [facility] Specimen Blood Performing Organization Address City/[facility]ode Phone Number [facility] DEPARTMENT OF PATHOLOGY [id number] [place] [address]. [place] [address] AND [facility] CRP high sensitivity (05/15/2017 2:28 PM CDT) CRP, high sensitivity 0.95 mg/L [facility] DEPARTMENT OF Comment: PATHOLOGY AND GENOMIC Please [...] infection Specimen Plasma specimen Performing Organization Address City/State/[facility] Cent[facility]ode Phone Number [facility] DEPARTMENT OF PATHOLOGY AND [address] [place] [address] [facility] Hemoglobin A1c (05/15/2017 2:28 PM CDT) Hemoglobin A1C 6.8 (H) 4.0 - 6.0 % [facility] DEPARTMENT OF PATHOLOGY Comment: AND GENOMIC MEDICINE Less than 6% - Goal of therapy for Type II Diabetes Less than 7%-Goal of therapy for Type I Diabetes Less than 8%-Acceptable control for Type I or Type II Diabetes Greater than 8%-Unacceptable control; action indicated. (ADA94) Specimen Blood Performing Organization Address City/State/Zipcode Phone Number [facility] DEPARTMENT OF PATHOLOGY [address] [place] [address] AND [facility] Folate level (05/15/2017 2:28 PM CDT) Folate 13.2 4.8 - 24.2 ng/mL [facility] DEPARTMENT OF PATHOLOGY AND GENOMIC MEDICINE Specimen Serum Performing Organization Address City/[facility]/Zipcode Phone Number [facility] DEPARTMENT OF PATHOLOGY AND [address] [place] [id number] [facility] Vitamin B12 level (05/15/2017 2:28 PM CDT) Vitamin B12 552 211 - 946 pg/mL [facility] DEPARTMENT OF PATHOLOGY Comment: AND [facility] Significant overlap exists between normal and deficiency states. However, most patients with deficiencies will have Serum B12 <200 pg/mL. Specimen Serum Performing Organization Address City/[facility]/Zipcode Phone Number [facility] DEPARTMENT OF PATHOLOGY AND [address] [place] [address] [facility] Lipid panel (05/15/2017 2:28 PM CDT) Cholesterol 153 0 - 199 mg/dL [facility] DEPARTMENT OF PATHOLOGY AND GENOMIC MEDICINE Triglycerides 334 (H) 0 - 149 mg/dL [facility] DEPARTMENT OF PATHOLOGY AND GENOMIC MEDICINE HDL cholesterol 22 (L) 40 - 99,999 [facility] DEPARTMENT OF mg/dL PATHOLOGY AND GENOMIC MEDICINE LDL cholesterol 85 0 - 99 mg/dL [facility] DEPARTMENT OF PATHOLOGY AND GENOMIC MEDICINE Lipid panel See below [facility] DEPARTMENT OF interpretation Comment: PATHOLOGY AND Total Cholesterol (mg/dL) GENOMIC MEDICINE <200 Desirable [id number]-[id number] >=240High Triglycerides (mg/dL) <150 Normal [id number] 200-499High >=500Very high HDL Cholesterol (mg/dL) <40Low (male) <50Low (female) LDL Cholesterol (mg/dL) <100 Optimal 100-129Near or above optimal 333-353Rejfpuwawj-mzhv 160-189High >=190Very high Risk Catergories that modify [...] specimen Performing Organization Address City/State/Zipcode Phone Number [facility] DEPARTMENT OF PATHOLOGY [address] [place] [address] AND [facility] Comprehensive metabolic panel (05/15/2017 2:28 PM CDT) Sodium 144 135 - 148 mEq/L [facility] DEPARTMENT OF PATHOLOGY AND GENOMIC MEDICINE Potassium 3.8 3.5 - 5.0 mEq/L [facility] DEPARTMENT OF PATHOLOGY AND GENOMIC MEDICINE Chloride 102 98 - 112 mEq/L [facility] DEPARTMENT OF PATHOLOGY AND GENOMIC MEDICINE CO2 28 24 - 31 mEq/L [facility] DEPARTMENT OF PATHOLOGY AND GENOMIC MEDICINE Anion gap 14 7 - 15 mEq/L [facility] DEPARTMENT OF Comment: PATHOLOGY AND GENOMIC Starting from May , anion gap calculation MEDICINE no longer incorporates potassium. Please note the change. BUN 26 (H) 8 - 23 mg/dL [facility] DEPARTMENT OF PATHOLOGY AND GENOMIC MEDICINE Creatinine 1.4 (H) 0.7 - 1.2 mg/dL [facility] DEPARTMENT OF PATHOLOGY AND GENOMIC MEDICINE Glucose 79 65 - 99 mg/dL [facility] DEPARTMENT OF PATHOLOGY AND GENOMIC MEDICINE Calcium 9.7 8.8 - 10.2 mg/dL [facility] DEPARTMENT OF PATHOLOGY AND GENOMIC MEDICINE Protein 7.0 6.3 - 8.3 g/dL [facility] DEPARTMENT OF PATHOLOGY AND GENOMIC MEDICINE Albumin 4.5 3.5 - 5.0 g/dL [facility] DEPARTMENT OF PATHOLOGY AND GENOMIC MEDICINE A/G ratio 1.8 0.7 - 3.8 [facility] DEPARTMENT OF PATHOLOGY AND GENOMIC MEDICINE Alkaline phosphatase 94 40 - 129 U/L [facility] DEPARTMENT OF PATHOLOGY AND GENOMIC MEDICINE AST 17 10 - 50 U/L [facility] DEPARTMENT OF PATHOLOGY AND GENOMIC MEDICINE ALT 12 5 - 50 U/L [facility] DEPARTMENT OF PATHOLOGY AND GENOMIC MEDICINE Total bilirubin 0.3 0.2 - 1.2 mg/dL [facility] DEPARTMENT OF PATHOLOGY AND GENOMIC MEDICINE Specimen Plasma specimen Performing Organization Address City/State/Zipcode Phone Number [facility] DEPARTMENT OF PATHOLOGY [address] [place] [address] AND [facility] after 12/26/2016 Insurance Payer Benefit Plan / Group Subscriber ID Type Phone Address AETNA AETNA PPO OPEN CHOICE xxxxxxxxx PPO MEDICARE MEDICARE PART A AND B xxxxxxxxxx Medicare [place], [place] Advance Directives Patient has advance care planning documents on file. For more information, please contact:[place] [address]
--- OUTSIDE RECORDS SUMMARY | 2017-12-27 15:34 | XMS REPORT | Clinical Summary ---
:1945 Author Organization [facility] Address [address] [place] [address] Care Team Providers Name Role Phone Vania [...] Garcia CYSTOSCOPY,BLUE LIGHT MD Louis CYSVIEW 08/25/2017 Anesthesia Event Chinedu Figueredo MD 08/25/2017 Hospital Encounter Brown Garcia Malignant neoplasm of urinary bladder, unspecified site (HCC); MD Louis Pre-op testing; Bacteremia 08/23/2017 Hospital Encounter Cardiology Brown Garcia MD [...] profile 01/28/2017 - Hospital Encounter General Internal [facility] CLL (chronic lymphocytic leukemia) (HCC); 01/29/2017 Medicine Linda Montague Cerebrovascular accident (CVA), unspecified mechanism (HCC); MD Chris Essential hypertension; Onel Pringle, History of lacunar cerebrovascular accident (CVA); Paroxysmal atrial fibrillation (HCC) Dipak Bauer MD after 12/26/2016 Social History Tobacco Use Types Packs/Day Years [...] 532 ms QTC Calculation(Bazett) 517 ms P Waycross 24 degrees R Waycross -19 degrees T Way[place] 74 degrees Sinus bradycardia with 1st degree [...] RHYTHM STRIP - SCAN 02/02/2017 8:10 AM REGISTERED NURSES (MANUAL Routine 01/29/2017 6:21 Results for DIFFERENTIAL) AM REGISTERED NURSES this procedure are in the results section. CBC W/PLT COUNT & Routine 01/29/2017 6:21 Results for AUTO DIFFERENTIAL AM REGISTERED NURSES this procedure are in the results section. CREATINE KINASE Routine 01/29/2017 6:21 Results for (CK), TOTAL AND MB AM REGISTERED NURSES this procedure are in the results section. TROPONIN I Routine 01/29/2017 6:21 Results for AM REGISTERED NURSES this procedure are in the results section. LIPID PANEL Routine 01/29/2017 6:21 Results for AM REGISTERED NURSES this procedure are in the results section. VITAMIN B12 Routine 01/29/2017 6:21 Results for AM REGISTERED NURSES this procedure are in the results section. RPR Routine 01/29/2017 6:21 Results for AM REGISTERED NURSES this procedure are in the results section. TSH/FREE T4 IF Routine 01/29/2017 6:21 Results for INDICATED AM REGISTERED NURSES this procedure are in the results section. HEMOGLOBIN A1C Routine 01/29/2017 6:21 Results for AM REGISTERED NURSES this procedure are in the results section. BASIC METABOLIC Routine 01/29/2017 6:21 Results for PANEL (7) AM REGISTERED NURSES this procedure are in the results section. CBC W/PLT COUNT & Routine 01/29/2017 6:21 Results for AUTO DIFFERENTIAL AM REGISTERED NURSES this procedure are in the results section. MR BRAIN WITHOUT IV Routine 01/29/2017 4:01 Results for CONTRAST AM REGISTERED NURSES this procedure are in the results section. MR MRA NECK WITHOUT Routine 01/29/2017 4:01 Results for IV CONTRAST AM REGISTERED NURSES this procedure are in the results section. MR MRA HEAD WITHOUT Routine 01/29/2017 4:01 Results for CONTRAST AM REGISTERED NURSES this procedure are in the results section. after 12/26/2016 Results Tissue Exam (08/25/2017 10:30 AM CDT) Case Report Surgical Pathology Report Case: [id number] [facility] Authorizing Provider:Brown Garcia MDCollected: 08/25/2017 1030 [facility] Received: 08/25/2017 1434 SERVICES Pathologist: Nicolas Diaz MD Specimens: A) - Bladder Tumor, enbloc resection of right lateral wall tumor B) - Bladder Tumor, TUR papillary tumor inside left bladder neck C) - Bladder Tumor, right lateral wall bladder tumor D) - Bladder Tumor, papillary tumor dome DIAGNOSIS A. URINARY BLADDER, RIGHT LATERAL WALL, TURBT: [facility] - PAPILLARY UROTHELIAL CARCINOMA, LOW-GRADE (WHO [...] NOT PRESENT Signing Pathologist Direct Phone Line: [phone] COMMENT The focus of invasion on [facility] specimen B. Is into the [facility] lamina propria of one papillary stalk and consists of on 3-4 tiny cell clusters. CPT Code(s) A. 78399 [facility] B. 19884 [facility] C. 35607 D. 05859 CLINICAL HISTORY Malignant neoplasm of [facility] urinary bladder [facility] SPECIMEN SOURCE A. Bladder tumor en bloc [facility] resection of right lateral [facility] wall tumor; B. TUR papillary tumor inside left bladder neck; C. Right lateral wall bladder tumor; D. Papillary tumor dome GROSS DESCRIPTION The specimen is received in four containers of formalin all labeled with the patient's information. [facility] Part A labeled "en bloc resection of [...] Submitted D1. CG/ pl MICROSCOPIC DESCRIPTION Performed [facility] Specimen Tissue - Bladder Tumor Performing Organization Address City/State/Zipcode Phone Number [facility] [address] [place] [address] [place] TRANSFUSION SERVICE REPORT - SCAN (08/24/2017 5:54 [...] MD Report Verified Date/Time:08/23/2017 16:22:14 Reading Location: [address] Reading Room Procedure Note Interface, External [...] Report Verified Date/Time: 08/23/2017 16:22:14 Reading Location: [address] Reading Room Performing Organization Address City/State/Zipcode Phone Number [facility] Electrocardiogram, 12-lead (08/23/2017 3:05 PM CDT) Narrative Performed At Ventricular Rate 57 BPM [facility] Atrial Rate 57 BPM P-R Interval 212 ms QRS Duration 98 ms Q-T Interval 532 ms QTC Calculation(Bazett) 517 ms P Waycross 24 degrees R Waycross -19 degrees T Way[place] 74 degrees Sinus bradycardia with 1st degree A-V block Prolonged QT Abnormal ECG No previous ECGs available Confirmed by Radha Liu Alireaz ([id number]) on 08/23/2017 10:07:57 PM Procedure Note Interface, External Ris In - 08/23/2017 10:08 PM CDT Ventricular Rate 57 BPM Atrial Rate 57 BPM P-R Interval 212 ms QRS Duration 98 ms Q-T Interval 532 ms QTC Calculation(Bazett) 517 ms P Waycross 24 degrees R Waycross -19 degrees T [place] 74 degrees Sinus bradycardia with 1st degree A-V block Prolonged QT Abnormal ECG No previous ECGs available Confirmed by Radha Liu Alireaz ([id number]) on 08/23/2017 10:07:57 PM Performing Organization Address City/State/Zipcode Phone Number [facility] Manual Differential (08/23/2017 3:02 PM CDT) % Neutros 23 % [facility] % Lymphs 66 % [facility] % Monos 2 % [facility] % Eos 1 % [facility] % Baso 1 % [facility] % Atypical Lymphs 6 (H) 0 - 0 % [facility] # Neutros 16.58 (H) 1.78 - 5.38 K/ul [facility] # Lymphs 47.59 (H) 1.32 - 3.57 K/ul [facility] # Monos 1.44 (H) 0.30 - 0.82 K/uL [facility] # Eos 0.72 (H) 0.04 - 0.54 K/uL [facility] # Baso 0.72 (H) 0.01 - 0.08 K/uL [facility] # Atypical Lymphs 4.33 (H) 0.00 - 0.00 K/uL [facility] Total Counted 100 [facility] Platelet Morphology Normal [facility] Smudge Cells Present [facility] Polychromasia 1+ few [facility] Hypochromia 1+ few [facility] Anisocytosis 2+ moderate [facility] Microcytes 2+ moderate [facility] Poikilocytes 1+ few [facility] Artifact Present [facility] Platelet Conc Adequate [facility] Specimen Blood Narrative Performed At Received comment: [facility] User comments: Slide comments: Performing Organization Address City/[facility] Phone Number [facility] [address] [place] [phone] CENTER Type and screen, automated (08/23/2017 3:02 PM CDT) ABO/RH AUTOMATED (BEAKER) A POSITIVE [facility] Ab Scrn NEGATIVE [facility] Specimen Blood Performing Organization Address City/[facility] Centercode Phone Number [facility] [address] [place] [address] [phone] CBC with platelet count + automated diff (08/23/2017 3:02 PM CDT)Only the most recent of2 resultswithin the time period is included. WBC 72.1 (HH) 3.5 - 10.5 K/L [facility] RBC 4.97 4.63 - 6.08 M/L [facility] Hemoglobin 13.1 (L) 13.7 - 17.5 GM/DL [facility] Hematocrit 42.1 40.1 - 51.0 % [facility] MCV 84.7 79.0 - 92.2 fL [facility] MCH 26.4 25.7 - 32.2 pg [facility] MCHC 31.1 (L) 32.3 - 36.5 GM/DL [facility] RDW 14.5 (H) 11.6 - 14.4 % [facility] Platelets 247 150 - 450 K/CU MM [facility] MPV 10.6 9.4 - 12.4 fL [facility] nRBC 0 0 - 0 /100 WBC [facility] Specimen Blood Performing Organization Address City/[facility]/Zipcode Phone Number [facility] [address] [place] [phone] [place] Urinalysis w/ Microscopic (08/23/2017 3:02 PM CDT) Color, UA Light Yellow [facility] Clarity, UA Clear [facility] Specific [place], UA 1.012 1.001 - 1.035 [facility] pH, UA 7.0 5.0 - 8.0 [facility] Protein, UA 50 mg/dL (A) Negative [facility] Glucose, UA Negative Negative [facility] Ketones, UA Negative Negative [facility] Bilirubin, UA Negative Negative [facility] Blood, UA Negative Negative [facility] Nitrite, UA Negative Negative [facility] Leukocytes, UA Negative Negative [facility] Urobilinogen, UA 0.2 0.2 - 1.0 mg/dL [facility] RBC, UA 1 /HPF [facility] WBC, UA <1 /HPF [facility] Mucus Rare [facility] Specimen Source [facility] Specimen Urine Performing Organization Address City/[facility]/Zipcode Phone Number [facility] [address] [place] [address] [phone] CENTER aPTT (08/23/2017 3:02 PM CDT) PTT 31.6 22.5 - 36.0 seconds [facility] Specimen Blood Performing Organization Address [facility]/Zipcode Phone Number [address] [address] [place] Prothrombin time/INR (08/23/2017 3:02 PM CDT) Protime 14.8 (H) 11.7 - 14.7 seconds [facility] INR 1.2 <=5.9 [facility] Specimen Blood Narrative Performed At [facility] RECOMMENDED COUMADIN/WARFARIN INR THERAPY RANGES STANDARD DOSE: 2.0 - 3.0 Includes: PROPHYLAXIS for venous thrombosis, systemic embolization; TREATMENT for venous thrombosis and/or pulmonary embolus. HIGH RISK: Target INR is 2.5-3.5 for patients with mechanical heart valves. Performing Organization Address [facility] Centercode Phone Number [address] [address] [place] Urine culture (08/23/2017 3:02 PM CDT) Result 50-59,000 col/mL skin eunice [facility] Specimen Urine - Urine, Clean Catch Performing Organization Address [facility] Centercomd Phone Number [address] [address] [place] Basic Metabolic Panel (08/23/2017 3:02 PM CDT)Only the most recent of2 resultswithin the time period is included. Sodium 140 136 - 145 meq/L [facility] Potassium 3.9 3.5 - 5.1 meq/L [facility] Chloride 104 98 - 107 meq/L [facility] CO2 25 22 - 29 meq/L [facility] BUN 29 (H) 7 - 21 mg/dL [facility] Creatinine 1.59 (H) 0.57 - 1.25 mg/dL [facility] Glucose 80 70 - 105 mg/dL [facility] Calcium 9.8 8.4 - 10.2 mg/dL [facility] EGFR 43Comment: ESTIMATED GFR IS mL/min/1.73 sq m [facility] NOT ACCURATE CREATININE [facility] CENTER CLEARANCE IN PREDICTING GLOMERULAR FILTRATION RATE. ESTIMATED GFR IS NOT APPLICABLE FOR DIALYSIS PATIENTS. Specimen Blood Performing Organization Address City/[facility] Centercode Phone Number [address] [phone] CENTER RHYTHM STRIP - SCAN (02/02/2017 8:10 AM REGISTERED NURSES) Narrative Performed At Manual Differential (01/29/2017 6:21 AM REGISTERED NURSES) Total Counted [facility] Platelet Morphology Normal [facility] RBC Morphology Normal [facility] Atypical Lymphs Present [facility] Smudge Cells Present [facility] Specimen Blood Performing Organization Address [facility] Centercom[facility] Phone Number [address] [address] [place] TSH/Free T4 If Indicated (01/29/2017 6:21 AM REGISTERED NURSES) TSH 1.37 0.35 - 4.94 uIU/mL [facility] Specimen Blood Performing Organization Address [facility] Centercode Phone Number [address] [phone] CENTER Troponin I (01/29/2017 6:21 AM REGISTERED NURSES) Troponin I 0.02 0.00 - 0.03 ng/mL [facility] Specimen Blood Narrative Performed At [facility] Troponin I (TnI) levels must be interpreted [...] disease, and persistent tachyarrhythmia. Performing Organization Address City/[facility]/Zipcode Phone Number [address] [address] CENTER RPR (01/29/2017 6:21 AM REGISTERED NURSES) RPR Nonreactive Nonreactive [facility] Specimen Blood Performing Organization Address [facility] Centercode Phone Number [address] [address] [phone] CENTER Hemoglobin A1c (01/29/2017 6:21 AM REGISTERED NURSES) Hemoglobin A1C 6.9 (H) 4.3 - 6.1 % [facility] Specimen Blood Performing Organization Address [facility] Phone Number [address] [address] [place] Vitamin B12 (01/29/2017 6:21 AM REGISTERED NURSES) Vitamin B12 346 213 - 816 pg/mL [facility] Specimen Blood Performing Organization Address [facility] Phone Number [address] [address] [place] Creatine Kinase (CK), Total and MB (01/29/2017 6:21 AM REGISTERED NURSES) Total CK 72 29 - 200 U/L [facility] CK-MB 0.5 0.0 - 6.6 ng/mL [facility] MB Relative Index 0.7 % [facility] Specimen Blood Narrative Performed At CK-MB Reference Range: [facility] <6.7Normal 6.7-10.0Borderline >10.0 Abnormal Performing Organization Address [facility] Centercode Phone Number [address] [address] [place] Lipid panel (01/29/2017 6:21 AM REGISTERED NURSES) Triglycerides 175 mg/dL [facility] Cholesterol 104 mg/dL [facility] HDL 21 mg/dL [facility] LDL Calculated 48 mg/dL [facility] Specimen Blood Narrative Performed At [facility] Triglyceride Reference Range: Low Risk <150 [id number] High Risk 200-499 Very High Risk>=500 Cholesterol Reference Range: Low Risk <200 [id number] High Risk>240 HDL Cholesterol Reference Range: Low Risk >=60 High Risk <40 LDL Cholesterol Reference Range: Optimal<100 Near [id number] [id number] [id number] Very High >=190 Performing Organization Address City/State/Zipcode Phone Number [facility] [address] [place] [address] [place] MR brain without IV contrast (01/29/2017 4:01 AM REGISTERED NURSES) Narrative Performed At FINAL REPORT [facility] MR, BRAIN, WITHOUT CONTRAST, MR, MRA, [...] MD Report Verified Date/Time:01/29/2017 04:30:36 Reading Location: [facility] C013X Ortho Consult Reading Room Procedure Note Interface, External Ris In - 01/29/2017 4:32 AM REGISTERED NURSES FINAL REPORT MR, BRAIN, WITHOUT CONTRAST, MR, [...] Report Verified Date/Time: 01/29/2017 04:30:36 Reading Location: [facility] B1 C013X Ortho Consult Reading Room Performing Organization Address City/State/Zipcode Phone Number [facility] MRA neck without IV contrast (01/29/2017 4:01 AM REGISTERED NURSES) Narrative Performed At FINAL REPORT [facility] MR, BRAIN, WITHOUT CONTRAST, MR, MRA, NECK, [...] MD Report Verified Date/Time:01/29/2017 04:30:36 Reading Location: [address] Ortho Consult Reading Room Procedure Note Interface, External Ris In - 01/29/2017 4:32 AM REGISTERED NURSES FINAL REPORT MR, BRAIN, WITHOUT CONTRAST, MR, [...] Report Verified Date/Time: 01/29/2017 04:30:36 Reading Location: [facility] B1 C013X Ortho Consult Reading Room Performing Organization Address City/State/Zipcode Phone Number [facility] MRA head without IV contrast (01/29/2017 4:01 AM REGISTERED NURSES) Narrative Performed At FINAL REPORT [facility] MR, BRAIN, WITHOUT CONTRAST, MR, MRA, NECK, [...] MD Report Verified Date/Time:01/29/2017 04:30:36 Reading Location: [address] Ortho Consult Reading Room Procedure Note Interface, External Ris In - 01/29/2017 4:32 AM REGISTERED NURSES FINAL REPORT MR, BRAIN, WITHOUT CONTRAST, MR, [...] Report Verified Date/Time: 01/29/2017 04:30:36 Reading Location: [address] Ortho Consult Reading Room Performing Organization Address City/State/Zipcode Phone Number [facility] after 12/26/2016 Insurance Payer Benefit Plan / Group Subscriber ID Type Phone Address MEDICARE MEDICARE A B xxxxxxxxxx Medicare AETNA - MGD CARE AETNA INDEMNITY NON CONTR xxxxxxxxx Comm Advance Directives For more information, please contact:[address] [phone] Code Status Date Activated Date Inactivated Comments Full Code 01/28/2017 10:55 PM 01/29/2017 1:33 PM This code status was determined by: Patient
--- OUTSIDE RECORDS SUMMARY | 2017-12-27 15:35 | XMS REPORT | Continuity of Care Document ---
:1945 Author Organization Interface Problems Problem Status Onset Classification Date Comments Source Date Reported Urinary 06/01/2017 [place] obstruction 8 [place] Hematuria 06/01/2017 [place] LUMBAR STENOSIS Active [address] M54.16 - Active OPID "RADICULOPATHY, 7 [place] LUMBAR REGION" Stroke Resolved Problem 06/22/2017 Diana Conway [facility] Neuro Hematoma Resolved Problem 06/22/2017 Diana Conway [facility] HBP (<span Active Problem 06/22/2017 OPID ID="[id number] Diana Chavez 9">Confirmed</s ischer young>) Neuro Bladder cancer Resolved Problem 06/22/2017 Diana Conway [facility] Neuro Stroke Resolved Problem 09/27/2016 Diana Conway,[facility] Hematoma Resolved Problem 09/27/2016 Diana Conway,[facility] HBP (<span Active Problem 09/27/2016 OPID ID="[id number] Diana Chavez 9">Confirmed</s H OPID young>) Tyree,[facility] Bladder cancer Resolved Problem 09/27/2016 Diana Conway,[facility] Stroke Resolved Problem 12/31/2016 Diana Conway, OPID [facility] Hematoma Resolved Problem 12/31/2016 Diana Conway, OPID [facility] HBP (<span Active Problem 12/31/2016 OPID ID="[id number] Diana Chavez 9">Confirmed</s H OPID young>) Tyree, OPIMarcio [facility] Bladder cancer Resolved Problem 12/31/2016 Diana Conway, OPID [facility] Stroke Resolved Problem 06/01/2017 PRECIOUS Chavez,M [facility] [place] Hematoma Resolved Problem 06/01/2017 PRECIOUS ChavezDiana [facility] [place] HBP (<span Active Problem 06/01/2017 OPID ID="[id number] Diana Chavez 9">Confirmed</s H OPID young>) Tyree [place] Bladder cancer Resolved Problem 06/01/2017 PRECIOUS ChavezDiana PRECIOUS [facility], [place] Medications Medication Details Route Status Patient Ordering Order Source Instructions Provider Date Docusate Sodium 1 tab, Route: Inactive [place] 50 MG / PO, Drug Form: 2017 [facility] sennosides, NURSING HOME TAB, Dosing 8.6 MG Oral Weight 86.364, Tablet kg, BID, Start date: 05/29/17 17:00:00 CDT, Duration: 30 day, Stop date: 06/28/17 9:00:00 CDTNotes: (Same as Senokot-S) Equiv. to Rachelle-Colace. Docusate Sodium 1 tab, PO, BID, Active Sugar 50 MG / X 14 day, # 28 2017 [facility] sennosides, NURSING HOME tab, 0 8.6 MG Oral Refill(s), Tablet Pharmacy: [facility] [id number] ciprofloxacin 500 500 mg=1 tab, Active Sugar mg oral tablet PO, Q12H, X 7 2017, # 14 tab, 0 Refill(s), Pharmacy: [facility] [id number] Cipro 500 mg, 2 tab, Inactive Sugar Route: PO, Drug 2017 [facility] form: TAB, [id number], Dosing Weight 86.364, kg, Start date: 05/29/17 9:00:00 CDT, Duration: 5 day, Stop date: 06/02/17 21:00:00 CDT, ABX Indication: Other (specify in Comments)Notes: May interfere w/enteral feedings - Take 1 hr before or 2 hrs after antacids, dairy pdt & minerals. On empty stomach. Normal Saline for 3,000 mL, Route: Inactive [place] Irrigation INTRAVESICULAR, 2017 [place] Drug Form: SOLN, Dosing Weight 89.545, kg, Continuous, Start date: 05/28/17 21:30:00 CDT, Duration: 30 day, Stop date: 06/27/17 21:29:00 CDTNotes: For irrigation only. Sodium Chloride 3,000 mL, 6000 No Longer [place] ml/hr, Route: Active 2017 [place] IRRIG, Drug Form: SOLN, Dosing Weight 86.364, [...] [place] Hydrochloride 240 PO, Daily, 0 2017 [place] MG Extended Refill(s) Release Capsule [Cartia] clopidogrel 75 MG 75 mg=1 tab, PO, No Longer [place] Oral Tablet Daily, 0 2017 [place] [Plavix] Refill(s) Aspirin 81 mg, 0 No Longer [place] Refill(s) Active 2017 [place] nebivolol 10 MG 10 mg=1 tab, PO, Active [place] Oral Tablet Daily, 0 2018 [place] [Bystolic] Refill(s) Bystolic 10 mg, 2 [...] Inactive [place] Hydrochloride 0.1 Route: PO, Drug 2017 [place] MG Oral Tablet form: TAB, BID, [...] PO, Inactive [place] TID, PRN pain, # 2018 [place] 30 tab, 0 Refill(s) Acetaminophen 650 mg, 2 tab, No Longer [place] Route: PO, Drug Active 2018 [place] form: TAB, Q4H, Dosing Weight 89.545, kg, PRN Pain 1-3/Temp > 100.4 F, Start date: 05/27/17 2:05:00 CDT, Duration: 30 day, Stop date: 06/26/17 2:04:00 CDTNotes: Do not exceed 4 gm/day. (Same as: Tylenol) Acetaminophen 325 1 tab, Route: No Longer [place] MG / Hydrocodone PO, Drug Form: Active 2018 [place] Bitartrate 5 MG TAB, Dosing Oral Tablet Weight 89.545, kg, Q4H, PRN Pain Score 4-6, Start date: 05/27/17 2:05:00 CDT, Duration: 30 day, Stop date: 06/26/17 2:04:00 CDTNotes: (Same as: [place] 325/5) Do not exceed 4gm/day of acetaminophen. [...] Route: Inactive Sugar Normal Saline INTRAVESICULAR, 2017 Drug Form: SOLN, Dosing Weight 89.545, kg, Continuous, Start date: 05/27/17 2:00:00 CDT, Duration: 30 day, Stop date: 06/26/17 1:59:00 CDTNotes: For irrigation only. Sodium Chloride 3,000 mL, Route: Inactive Sugar 0.0769 MEQ/ML Intravesical, 2017 [facility] Irrigation Drug Form: SOLN, Solution Dosing [...] Route: Inactive Sugar Normal Saline Intravesical, 2017 [facility] Drug Form: SOLN, Dosing Weight 89.545, kg, ONCE, Start date: 05/27/17 0:58:00 CDT, Stop date: 05/27/17 0:58:00 CDTNotes: For irrigation only. Irrigation w/ 3,000 mL, Route: Inactive Sugar Normal Saline INTRAVESICULAR, 2017 [facility] Drug Form: SOLN, Dosing Weight 89.545, kg, ONCE, STAT, Start date: 05/26/17 23:45:00 CDT, Stop date: 05/26/17 23:45:00 CDTNotes: For irrigation only. Saline Flush 0.9% 10 mL, Route: No Longer [place] IVP, Drug Form: Active 2017 [place] INJ, Dosing Weight 89.545, kg, PRN, PRN Line Flush, Start date: 05/26/17 23:12:00 CDT, Duration: 30 day, Stop date: 06/25/17 23:11:00 CDTNotes: (Same as: BD Posiflush) Phenazopyridine 100 mg=1 tab, No Longer [place] hydrochloride 100 PO, TID, PRN Active 2017 [place] MG Oral Tablet Dysuria, X 2 [Pyridium] day, # 6 tab, 0 Refill(s) Acetaminophen 300 1 - 2 tab, PO, No Longer [place] MG / Codeine Q4H, PRN Pain, X Active 2017 [place] Phosphate 60 MG 2 day, # 12 tab, Oral Tablet 0 Refill(s) [Tylenol with Codeine #4] Acetaminophen 325 2 tab, Route: Inactive [place] MG / Hydrocodone PO, Drug Form: 2017 [facility] Bitartrate 5 MG TAB, Dosing Oral Tablet Weight 89.545, [[place] 5/325] kg, ONCE, STAT, Start date: 05/26/17 20:45:00 CDT, Stop date: 05/26/17 20:45:00 CDT Morphine 4 mg, Route: Inactive [place] IVP, ONCE, 2017 [facility] Dosing Weight 89.545, kg, Priority: STAT, Start date: 05/26/17 20:16:00 CDT, Stop date: 05/26/17 20:16:00 CDT Morphine 4 mg, Route: Inactive [place] IVP, ONCE, 2017 [facility] Dosing Weight 89.545, kg, Priority: STAT, Start date: 05/26/17 19:36:00 CDT, Stop date: 05/26/17 19:36:00 CDT diltiazem 360 mg, 1 cap, Inactive [place] Route: PO, Drug 2016 Medical form: ERCAP, Center ONCE, Dosing Weight 93.182, kg, Start date: 09/24/16 8:38:00 CDT, Stop date: 09/24/16 8:38:00 CDTNotes: DO NOT CRUSH. Lisinopril 40 mg, 2 tab, No Longer [place] Route: PO, Drug Active 2016 Medical form: TAB, Center Daily, Dosing Weight 93.182, kg, Start date: 09/23/16 9:00:00 CDT, Duration: 30 day, Stop date: 10/22/16 9:00:00 CDTNotes: (Same as: Prinivil, Zestril) Famotidine 20 MG 20 mg=1 tab, PO, Active Susy Oral Tablet BID, # 20 tab, 0 2016 Medical Refill(s) [place] magnesium citrate 8.725 ye=481 ml, No Longer [place] 58.2 MG/ML Oral PO, Daily, X 2 Active 2016 Medical Solution day, # 300 mL, 0 Center Refill(s) Acetaminophen 325 1 tab, PO, Q6H, Active [place] MG / Hydrocodone PRN for pain, X 2017 Medical Bitartrate 10 MG 14 day, # 90 Center Oral Tablet tab, 0 Refill(s) [[place] 10/325] Methocarbamol 500 500 mg=1 tab, Active [place] MG Oral Tablet PO, Q8H, PRN 2017 Medical [Robaxin] Spasms, X 10 Center day, # 30 tab, 0 Refill(s) {21 See Active [place] (Methylprednisolo Instructions, 2017 Medical ne 4 MG Oral PO, Take by Center Tablet [Medrol]) mouth as } Pack [Medrol directed on Dosepak] label., # 1 Pack, 0 Refill(s) Flomax 0.4 mg, 1 cap, No Longer [place] Route: PO, Drug Active 2016 Medical form: CAP, Center Daily, Dosing Weight 93.182, kg, Start date: 09/23/16 1:28:00 CDT, Duration: 30 day, Stop date: 10/22/16 9:00:00 CDTNotes: (Same As: Flomax) "Do Not Crush" Cefazolin 2 gm, Route: IV, No Longer [place] Drug form: INJ, Active 2016 Medical [id number], Dosing Center Weight 93.182, kg, Start date: 09/22/16 22:00:00 CDT, Duration: 24 hr, Stop date: 09/23/16 14:00:00 CDT, ABX Indication: Surgical ProphylaxisNotes : (Same As: Ancef, Kefzol) Cefazolin FOR IV SET ONLY MEDICATION WASTE Product Size: 1000 mg Product Wasted: _0__ mg Saline Flush 0.9% 10 ml, Route: No Longer [place] IVP, Drug Form: Active 2016 Medical INJ, Dosing Center Weight 93.182, kg, Q12H, Start date: 09/22/16 21:00:00 CDT, Duration: 30 day, Stop date: 10/22/16 9:00:00 CDTNotes: (Same as: BD Posiflush) Dexamethasone 4 mg, 1 tab, No Longer [place] Route: PO, Drug Active 2016 Medical form: TAB, Q6H, Center Dosing Weight 93.182, kg, Start date: 09/22/16 18:00:00 CDT, Duration: 30 day, Stop date: 10/22/16 12:00:00 CDTNotes: Give with food. (Same As: Decadron) Famotidine 20 MG 20 mg, 1 tab, No Longer [place] Oral Tablet Route: PO, Drug Active 2016 Medical form: TAB, BID, Center Dosing Weight 93.182, kg, Start date: 09/22/16 17:00:00 CDT, Duration: 30 day, Stop date: 10/22/16 9:00:00 CDTNotes: (Same as: Pepcid) Docusate 50 mg, 1 cap, No Longer [place] Route: PO, Drug Active 2016 Medical form: CAP, BID, Center Dosing Weight 93.182, kg, Start date: 09/22/16 17:00:00 CDT, Duration: 30 day, Stop date: 10/22/16 9:00:00 CDT, Pediatric DosingNotes: (Same as: Colace) (Do Not Crush) sennosides, NURSING HOME 8.6 mg, 1 tab, No Longer [place] Route: PO, Drug Active 2016 Medical Form: TAB, Center Dosing Weight 93.182, kg, BID, Start date: 09/22/16 17:00:00 CDT, Duration: 30 day, Stop date: 10/22/16 9:00:00 CDTNotes: (Same as: Senokot) Clonidine 0.1 mg, 1 tab, No Longer [place] Hydrochloride 0.1 Route: PO, Drug Active 2016 Medical MG Oral Tablet form: TAB, BID, Center Dosing Weight 93.182, kg, Start date: 09/22/16 17:00:00 CDT, Duration: 30 day, Stop date: 10/22/16 9:00:00 CDTNotes: (Same As: Catapres) Ondansetron 4 mg, 2 mL, Inactive [place] Route: IVP, Drug 2016 Medical form: INJ, ONCE, Center Dosing Weight 93.182, kg, PRN Nausea & Vomiting, Start date: 09/22/16 16:37:00 CDTNotes: (Same as: Zofran) MEDICATION WASTE Product Size: 4 mg Product Wasted: ___ mg Naloxone 0.4 mg, 1 mL, Inactive [facility] Route: IVP, Drug 2016 Medical form: INJ, Center Q2MIN, Dosing Weight 93.182, kg, PRN Narcotic Reversal, Start date: 09/22/16 16:37:00 CDT, Duration: 8 doses or times, Stop date: Limited # of timesNotes: Same as Narcan Flumazenil 0.2 mg, 2 mL, Inactive [facility] Route: IVP, Drug 2016 Medical form: INJ, PRN, Center Dosing Weight 93.182, kg, PRN Benzodiazepine Reversal, Initial dose, Start date: 09/22/16 16:37:00 CDT, Duration: 30 day, Stop date: 10/22/16 16:36:00 CDTNotes: (Same as: Romazicon) Hydralazine 10 mg, 0.5 mL, Inactive [facility] Route: IVP, Drug 2016 Medical form: INJ, Center Q20Min, Dosing Weight 93.182, kg, PRN Elevated BP, Start date: 09/22/16 16:37:00 CDT, Duration: 2 doses or times, Stop date: Limited # of timesNotes: (Same as: Apresoline) Push over 5 minutes Hydromorphone 0.5 mg, 0.25 mL, Inactive [facility] Route: IVP, Drug 2016 Medical form: INJ, Center Q5Min, Dosing Weight 93.182, kg, PRN Pain Score 7-10, Start date: 09/22/16 16:37:00 CDT, Duration: 4 doses or times, Stop date: Limited # of timesNotes: Same as: Dilaudid Oxycodone 5 mg, 1 tab, Inactive [facility] Route: PO, Drug 2016 Medical form: TAB, Q4H, Center Dosing Weight 93.182, kg, PRN Pain Score 4-6, Start date: 09/22/16 16:37:00 CDT, Duration: 30 day, Stop date: 10/22/16 16:36:00 CDTNotes: (Same as: Roxicodone) Saline Flush 0.9% 10 ml, Route: No Longer [place] IVP, Drug Form: Active 2017 Medical INJ, Dosing Center Weight 93.182, kg, PRN, PRN Line Flush, Start date: 09/22/16 16:11:00 CDT, Duration: 30 day, Stop date: 10/22/16 16:10:00 CDTNotes: (Same as: BD Posiflush) Robaxin 500 mg, 1 tab, No Longer [place] Route: PO, Drug Active 2016 Medical form: TAB, TID, Center Dosing Weight 93.182, kg, PRN Spasm, Start date: 09/22/16 16:11:00 CDT, Duration: 30 day, Stop date: 10/22/16 16:10:00 CDTNotes: (Same as:Robaxin) Hydralazine 20 mg, 1 mL, No Longer [facility] Route: IVP, Drug Active 2016 Medical form: INJ, Q4H, Center Dosing Weight 93.182, kg, PRN Hypertension, Start date: 09/22/16 16:11:00 CDT, Duration: 30 day, Stop date: 10/22/16 16:10:00 CDTNotes: (Same as: Apresoline) Push over 5 minutes Labetalol 10 mg, 2 mL, No Longer [facility] Route: IVP, Drug Active 2016 Medical form: INJ, Center Q15Min, Dosing Weight 93.182, kg, PRN Hypertension, Start date: 09/22/16 16:11:00 CDT, Duration: 30 day, Stop date: 10/22/16 16:10:00 CDT Ondansetron 4 mg, 2 mL, No Longer [place] Route: IVP, Drug Active 2016 Medical form: INJ, Q6H, Center Dosing Weight 93.182, kg, PRN Nausea & Vomiting, Start date: 09/22/16 16:11:00 CDT, Duration: 30 day, Stop date: 10/22/16 16:10:00 CDT, >/=4 years, Pediatric DosingNotes: (Same as: Kt) MEDICATION WASTE Product Size: 4 mg Product Wasted: ___ mg Acetaminophen 325 1 tab, Route: No Longer [place] MG / Hydrocodone PO, Drug Form: Active 2017 Medical Bitartrate 10 MG TAB, Dosing Center Oral Tablet Weight 93.182, [[place] 10/325] kg, Q4H, PRN Pain Score 1-3, Start date: 09/22/16 16:11:00 CDT, Duration: 30 day, Stop date: 10/22/16 16:10:00 CDTNotes: Do not exceed 4gm/day of acetaminophen. (Same as: [place] 325/10) Dilaudid 0.5 mg, 0.25 mL, No Longer [place] Route: IVP, Drug Active 2016 Medical form: INJ, Q3H, Center Dosing Weight 93.182, kg, PRN Pain Score 7-10, Start date: 09/22/16 16:11:00 CDT, Duration: 30 day, Stop date: 10/22/16 16:10:00 CDTNotes: Same as: Dilaudid Bisacodyl 10 mg, 1 supp, No Longer [place] Route: MN, Drug Active 2016 Medical form: SUPP, Center Daily, Dosing Weight 93.182, kg, PRN Constipation, Start date: 09/22/16 16:11:00 CDT, Duration: 30 day, Stop date: 10/22/16 16:10:00 CDTNotes: (Same As: Dulcolax, [place]-Lax) phenol 1 spray, Route: No Longer [place] TOP, Daily, Drug Active 2016 Medical form: SPRY, PRN Center Sore Throat, Start date: 09/22/16 16:11:00 CDT, Duration: 30 day, Stop date: 10/22/16 16:10:00 CDTNotes: Chloraseptic Painter (Same as: Chloraseptic, Sore Throat Painter) WASTE: F/P - Black; E - [employer] Melatonin 3 MG 3 mg, 1 tab, No Longer [place] Extended Release Route: PO, Drug Active 2016 Medical Tablet Form: TAB, Center Dosing Weight 93.182, kg, Bedtime, PRN as needed for insomnia, Start date: 09/22/16 16:11:00 CDT, Duration: 30 day, Stop date: 10/22/16 16:10:00 CDTNotes: (Same as: Melatonin) Benadryl 25 mg, 1 cap, No Longer [place] Route: PO, Drug Active 2016 Medical form: CAP, TID, Center Dosing Weight 93.182, kg, PRN Itching, Start date: 09/22/16 16:11:00 CDT, Duration: 30 day, Stop date: 10/22/16 16:10:00 CDTNotes: (Same as: Benadryl) ceFAZolin 2 gm, 100 mL, No Longer [place] Route: IVPB, Active 2016 Medical Drug form: [...] 32.2 g/dL 32.0 - 05/29 [place] 36.0 [facility] HEMATOLOGY MPV 8.6 fL 7.4 - 10.4 05/29 [facility] HEMATOLOGY Platelet 222 K/CMM 133 - 450 05/29 [facility] HEMATOLOGY RDW 16.8 % 11.5 - 05/29 [place] 14.5 [facility] HEMATOLOGY Hgb 11.3 g/dL 14.0 - 05/29 [place] 18.0 [facility] HEMATOLOGY RBC 4.00 M/CMM 4.70 - 05/29 [place] 6.10 [facility] HEMATOLOGY WBC 51.5 K/CMM 3.7 - 10.4 05/29 Result Comment: [facility] Critical Result(s) called to Zoran Ortiz at 05/29/2017 05:34 by FLOR. Read back OK. HEMATOLOGY MCV 87.5 fL 80.0 - 05/29 [place] 94.0 [facility] HEMATOLOGY Hct 35.0 % 42.0 - 05/29 [place] 54.0 /2017 [place] HEMATOLOGY MCH 28.2 pg 27.0 - 05/29 [place] 31.0 /2017 [place] HEMATOLOGY Monocytes # 1.8 K/CMM 0.0 - 0.8 05/29 [place] /2017 [place] HEMATOLOGY Basophils # 0.1 K/CMM 0.0 - 0.2 05/29 [place] /2017 [place] HEMATOLOGY Eosinophils 0.5 K/CMM 0.0 - 0.5 05/29 [place] # [place] HEMATOLOGY Monocytes 3.5 % 2.0 - 12.0 05/29 [place] /2017 [place] HEMATOLOGY Lymphocytes 77.1 % 20.0 - [...] K/CMM 1.0 - 5.5 05/28 [place] # 2018 [place] HEMATOLOGY Segs 13.0 % 45.0 - 05/28 [place] 75.0 [place] HEMATOLOGY Eosinophils 0.5 K/CMM 0.0 - 0.5 05/28 [place] # /2017 [place] HEMATOLOGY Lymphocytes 82.0 % 20.0 - 05/28 [place] 40.0 [facility] HEMATOLOGY Bands 0.0 % 0.0 - 11.0 05/28 [facility] HEMATOLOGY Segs-Bands # 6.6 K/CMM 1.5 - 8.1 05/28 [facility] HEMATOLOGY Monocytes # 1.0 K/CMM 0.0 - 0.8 05/28 [facility] HEMATOLOGY Platelet 225 K/CMM 133 - 450 05/28 [facility] HEMATOLOGY RDW 16.4 % 11.5 - 05/28 [place] 14.5 [facility] HEMATOLOGY MCH 27.8 pg 27.0 - 05/28 [place] 31.0 [facility] HEMATOLOGY MCHC 32.2 g/dL 32.0 - 05/28 [place] 36.0 [facility] HEMATOLOGY MCV 86.2 fL 80.0 - 05/28 [place] 94.0 [facility] HEMATOLOGY Hct 35.5 % 42.0 - 05/28 [place] 54.0 [facility] HEMATOLOGY MPV 8.2 fL 7.4 - 10.4 05/28 [facility] HEMATOLOGY Hgb 11.4 g/dL 14.0 - 05/28 [place] 18.0 [facility] HEMATOLOGY RBC 4.13 M/CMM 4.70 - 05/28 [place] 6.10 [facility] HEMATOLOGY WBC 51.0 K/CMM 3.7 - 10.4 05/28 Result Comment: [facility] Critical Result(s) called to HANDY Garcia at 05/28/2017 05:59 by STAVE BOLT EQUALIZER. Read back OK. Bladder US Bladder US Bladder Ultrasound 05/27 - - [facility] History: Hematuria - looking for blood [...] CO2 24 meq/L 24 - 32 05/27 [place] CHEM PANEL Chloride Lvl 107 meq/L [...] 44.6 K/CMM 1.0 - 5.5 05/27 [place] # /2017 [place] HEMATOLOGY Basophils # 0.3 K/CMM 0.0 - 0.2 05/27 [place] HEMATOLOGY Anisocyte 1+ None Seen 05/27 [place] *ABN* (05/27/17 8:34 AM) HEMATOLOGY Eosinophils 0.2 K/CMM 0.0 - 0.5 05/27 [place] # [place] HEMATOLOGY Segs 19.3 % 45.0 - 05/27 [place] 75.0 [place] HEMATOLOGY Plt Morph Normal 05/27 [place] (05/27/17 8:34 AM) HEMATOLOGY Lymphocytes 78.6 % 20.0 - 05/27 [place] 40.0 [place] HEMATOLOGY Platelet 213 K/CMM 133 - 450 05/27 [place] HEMATOLOGY MPV 8.5 fL 7.4 - 10.4 05/27 [place] HEMATOLOGY MCHC 33.0 g/dL 32.0 - 05/27 [place] 36.0 [place] HEMATOLOGY RDW 16.4 % 11.5 - 05/27 [place] 14.5 [place] HEMATOLOGY Hgb 12.4 g/dL 14.0 - 05/27 [place] 18.0 [place] HEMATOLOGY MCV 86.8 fL 80.0 - 05/27 [place] 94.0 [place] HEMATOLOGY Hct 37.4 % 42.0 - 05/27 [place] 54.0 [place] HEMATOLOGY MCH 28.7 pg 27.0 - 05/27 [place] 31.0 [place] HEMATOLOGY WBC 56.8 K/CMM 3.7 - 10.4 05/27 Result Comment: [place] Critical Result(s) called to Nadeem Ayala Rn at 05/27/2017 08:53 by Bry. Read back OK. HEMATOLOGY RBC 4.31 M/CMM 4.70 - 05/27 [place] 6.10 [place] Bladder US Bladder US EXAM: 05/27 - - [facility] Urinary bladder ultrasound. Read by: Geovanni [...] BANK ABO/Rh A POS 05/27 [place] RESULTS [facility] BLOOD BANK Antibody Negative 05/27 [place] RESULTS Scrn [facility] (05/27/17 1:34 AM) BLOOD BANK Platelet Product available 05/27 [place] RESULTS product /2017 [facility] (05/27/17 1:25 AM) CHEM PANEL eGFR [...] is not recommended in the following populations: [facility] 3m2 Individuals with unstable creatinine concentrations, [...] Lvl 141 meq/L 135 - 145 05/27 [place] [facility] CHEM PANEL Potassium 3.5 meq/L 3.5 - 5.1 05/27 [place] Lvl [facility] CHEM PANEL Chloride Lvl 107 meq/L 95 - 109 05/27 [facility] CHEM PANEL CO2 25 meq/L 24 - 32 05/27 [facility] CHEM PANEL Calcium Lvl 9.1 mg/dL 8.5 - 10.5 05/27 [facility] CHEM PANEL Glucose Lvl 150 mg/dL 70 - 99 05/27 [facility] CHEM PANEL BUN 25 mg/dL 7 - 22 05/27 [facility] CHEM PANEL Creatinine 1.41 mg/dL 0.50 - 05/27 [place] Lvl 1.40 [facility] CHEM PANEL AGAP 12.5 meq/L 10.0 - 05/27 [place] 20.0 [facility] HEMATOLOGY Bands 0.0 % 0.0 - 11.0 05/27 [facility] HEMATOLOGY RBC Morph Normal 05/27 [facility] (05/26/17 11:22 PM) HEMATOLOGY Atypical 0.0 % <=0.0 % 05/27 [facility] Lymphs [facility] HEMATOLOGY Smudge Few 05/27 [facility] HEMATOLOGY Large Plt Slight 05/27 [facility] HEMATOLOGY Tot Cell Ct 100 05/27 [facility] HEMATOLOGY Plt Morph Normal 05/27 [facility] (05/26/17 11:22 PM) HEMATOLOGY INR 1.13 0.85 - 05/27 [place] 1.17 [facility] HEMATOLOGY PT 14.5 s 12.0 - 05/27 [place] 14.7 [facility] HEMATOLOGY PTT 33.1 s 22.9 - 05/27 [place] 35.8 [facility] Brain wo Brain wo EXAM: Brain [...] BRAIN: -- Two subcentimeter ovoid foci of [id number] restricted diffusion, consistent with acute lacunar infarcts, [...] an outpatient basis. 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 There was no response after several attempts, and no voicemail option was available. Several unsuccessful atte mpts were subsequently made to reach the patient at the provided number of [phone]. A generic message was left on the voicemail instructing the patient to call his referring physician's offic e for immediate further instructions and to seek emergent care if symptomatic. SL: [id number] Spine Spine CERVICAL SPINE MRI WITHOUT CONTRAST 12/28/2016 AT 1503 HOURS. 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 SL: [id number] CHEM PANEL eGFR 54 09/19 Result Comment: The eGFR is calculated using the CKD-EPI formula. In most young, healthy individuals the eGFR will be >90 mL/ min/1.73m2. The eGFR declines with age. An eGFR of 60-89 may be normal in [facility] mL/min/1.7 some populations, particularly the elderly, for whom the CKD-EPI formula has not been extensively validated. Use of the eGFR is not recommended in the following populations: [address] Individuals with unstable creatinine concentrations, including patients [...] AGAP 15.8 meq/L 10.0 - 09/19 Result [facility] 20.0 Comment: [facility] Collection Center date/time has been [...] 144 meq/L 135 - 145 09/19 Result Comment: Medical Collection Center date/time has been modified to: 15:35:00. Previous collection date/time: 16:41:00. CHEM PANEL Creatinine 1.31 mg/dL 0.50 - 09/19 Result [facility] Lvl 1.40 Comment: Medical Collection Center date/time has been modified to: 15:35:00. Previous collection date/time: 16:41:00. CHEM PANEL Potassium 3.8 meq/L 3.5 - 5.1 09/19 Result [facility] Comment: Medical Collection Center date/time has been modified to: 15:35:00. Previous collection date/time: 16:41:00. Spine Spine Patient Name: IDANIA TERRY 08/11 - [facility] Thoracic wo Thoracic - [place] contrast contrast MRI : 1945; Age: 71 years y/o Male MRI MR: [id number] Read by: Brett Valente MD Dictated Date/time: [...] canal stenosis or neural foraminal narrowing. SL: [id number] Spine Spine Study: Spine cervical wo contrast MRI 08/11 - [facility] cervical wo cervical /2016 - [place] contrast contrast MRI MRI Clinical Indication: G95.9 [...] body of the cervical spinal cord. SL: [id number] Spine Spine lumbar EXAM: XR LUMBAR SPINE [...] Date Comments Source Heart Rate 63 05/29/2017 [place] Temperature Oral (F) 97.8 F 05/29/2017 [place] Respitory Rate 18 05/29/2017 [facility] [place] Systolic (mm Hg) 145 05/29/2017 [facility] [place] Diastolic (mm Hg) 83 05/29/2017 [place] Respitory Rate 18 05/29/2017 [place] Heart Rate 64 05/29/2017 [place] Temperature Oral (F) 97.4 F 05/29/2017 [facility] [place] Systolic (mm Hg) 156 05/29/2017 [facility] [place] Diastolic (mm Hg) 86 05/29/2017 [place] Respitory Rate 18 05/29/2017 [place] Temperature Oral (F) 98 F 05/29/2017 [place] Heart Rate 59 05/29/2017 [facility] [place] Systolic (mm Hg) 158 05/29/2017 [facility] [place] Diastolic (mm Hg) 69 05/29/2017 [place] BMI Calculated 27.32 05/27/2017 [place] Height 177.8 cm 05/27/2017 [place] Weight 86.364 05/27/2017 [place] Weight 89.545 05/27/2017 [facility] [place] Weight 90.909 12/28/2016 [facility] BMI Calculated 28.76 12/28/2016 [facility] Height 177.8 cm 12/28/2016 [facility] Heart Rate 74 12/28/2016 [facility] Systolic (mm Hg) 163 12/28/2016 [facility] Diastolic (mm Hg) 82 12/28/2016 [facility] Temperature Oral (F) 97.8 F 12/28/2016 [facility] Heart Rate 89 09/24/2016 [facility] Temperature Oral (F) 97.5 F 09/24/2016 [facility] Respitory Rate 18 09/24/2016 [facility] Systolic (mm Hg) 176 09/24/2016 [facility] Diastolic (mm Hg) 83 09/24/2016 [facility] Heart Rate 84 09/24/2016 [facility] Systolic (mm Hg) 143 09/24/2016 [facility] Diastolic (mm Hg) 73 09/24/2016 [facility] Respitory Rate 17 09/24/2016 [facility] Temperature Oral (F) 98.5 F 09/24/2016 [facility] Temperature Oral (F) 98.1 F 09/24/2016 [facility] Systolic (mm Hg) 146 09/24/2016 [facility] Diastolic (mm Hg) 79 09/24/2016 [facility] Respitory Rate 18 09/24/2016 [facility] Heart Rate 70 09/24/2016 [facility] BMI Calculated 29.48 09/22/2016 [facility] Weight 93.182 09/22/2016 [facility] Height 177.8 cm 09/22/2016 [facility] Weight 90.455 09/19/2016 [facility] BMI Calculated 28.61 09/19/2016 [facility] Height 177.8 cm 09/19/2016 [facility] Encounters Location Location Encounter Encounter Reason Attending ADM DC Status Source Details Type Number For Provider Date Date Visit Outpatient [id number] TJ ALICIA 07/20 [facility] Outpt Diag [id number] Tj Alicia 07/20 07/21 [facility] Outpt Diag [id number] Tj Alicia 08/11 08/12 [facility] [place] [facility] [id number] TJ MARAL 08/17 [facility] [id number] TJ ALICIA 09/19 [facility] Out[facility] [id number] TJ MARAL 09/19 [facility] [id number] TJ MARAL 09/22 [facility] [id number] Tj Maral 09/22 09/24 [facility] Outpatient [id number] ISRAEL 10/07 [facility] Outpatient [id number] TJ MARAL 11/14 [facility] Phone [id number] 12/23 12/25 [facility] Message Neuro [facility] Phone [id number] 12/26 12/28 [facility] Message Neuro Outpatient [id number] TJ ALICIA 12/28 [facility] [id number] Javi 12/28 12/29 [facility] 8 [facility] Out[facility] Diag [id number] Rufina 12/28 12/29 [facility] Phone [id number] 01/02 01/04 [facility] Message Neuro [facility] Phone [id number] 01/03 01/05 [facility] Message Neuro [facility] Phone [id number] 01/16 01/18 [facility] Message Neuro Outpatient [id number] TJ ALICIA 02/13 [facility] Ambulatory [id number] Javi 02/13 02/13 [facility] Pre-Reg 7 [facility] Phone [id number] 03/15 03/17 [facility] Message [facility] [id number] Chata 05/27 05/29 [facility] [place] [facility] [place] Procedures Procedure Code Date Perfomer Comments Source Bladder 07445 05/29/2017 [place] irrigation, simple, lavage and/or instillation Bladder 11961 05/28/2017 [place] irrigation, simple, lavage and/or instillation Bladder 30998 05/27/2017 [place] irrigation, simple, lavage and/or instillation Bladder operation [id number] [facility] [place] Drainage [id number] [facility] [place] Lymph node [id number] [facility] [place] Bladder operation [id number] [facility] Drainage [id number] [facility] Lymph node [id number] [facility] operation Bladder operation [id number] [facility] [place] Drainage [id number] [facility] [place] Lymph node [id number] [facility] [place] Bladder operation [id number] [facility] Drainage [id number] [facility] Lymph node [id number] [facility] Bladder operation [id number] [facility] Drainage [id number] [facility] Lymph node [id number] [facility] Bladder operation [id number] [place] Drainage [id number] [place] Lymph node [id number] [place] operation
--- OUTSIDE RECORDS SUMMARY | 2017-12-27 15:37 | XMS REPORT ---
:1945 [facility] Address [address] [place] [address] Dr. Hernández [address] [place] [address] Care Team Providers Name Role Phone YARELI GARCIA Unavailable Unavailable WILL FROST Unavailable Unavailable Problems This patient has no known problems. Allergies, Adverse Reactions, Alerts This patient has no known allergies or adverse reactions. Medications This patient has no known medications. Results Test Description Test Time Test Comments Text Results Atomic Results Result Comments TISSUE EXAM 2017-08-28 17:10:00 Surgical Pathology Report Case: [id number] Authorizing Provider: Yareli Garcia MD Collected: 08/25/2017 [...] NOT PRESENT Signing Pathologist Direct Phone Line: [phone] signed by Nicolas Diaz MD on 08/28/2017 at 5:10 PMThe focus of invasion on specimen B. Is into the lamina propria of one papillary stalk and consists of on 3-4 tiny cell clusters. A. 82929H. 82409U. 55227H. 94951Nhsevdatn neoplasm of urinary bladder A. Bladder tumor [...] Value Reference Range Comments CULTURE (BEAKER) (test fafy=8809) 50-59,000 col/mL skin eunice (CELLAVISION MANUAL DIFF)2017-08-23 20:07:00 Test Item Value Reference Range Comments NEUTROPHILS - REL (CELLAVISION)(BEAKER) (test 23 % fgfy=1227) LYMPHOCYTES - REL (CELLAVISION)(BEAKER) (test 66 % ggaf=4841) MONOCYTES - REL (CELLAVISION)(BEAKER) (test 2 % xofr=5663) EOSINOPHILS - REL (CELLAVISION)(BEAKER) (test 1 % olto=9818) BASOPHILS - REL (CELLAVISION)(BEAKER) (test 1 % qieo=8849) ATYPICAL LYMPHOCYTES - REL (CELLAVISION)(BEAKER) 6 % 0-0 (test rpvt=6896) NEUTROPHILS - ABS (CELLAVISION)(BEAKER) (test 16.58 K/ul 1.78-5.38 jsds=6164) LYMPHOCYTES - ABS (CELLAVISION)(BEAKER) (test 47.59 K/ul 1.32-3.57 ctdy=3583) MONOCYTES - ABS (CELLAVISION)(BEAKER) (test 1.44 K/uL 0.30-0.82 iymy=5096) EOSINOPHILS - ABS (CELLAVISION)(BEAKER) (test 0.72 K/uL 0.04-0.54 yxou=7393) BASOPHILS - ABS (CELLAVISION)(BEAKER) (test 0.72 K/uL 0.01-0.08 cvty=8435) ATYPICAL LYMPHOCYTES - ABS (CELLAVISION)(BEAKER) 4.33 K/uL 0.00-0.00 (test dkgs=9750) TOTAL COUNTED (BEAKER) (test nizm=5710) 100 PLT MORPHOLOGY (BEAKER) (test zcwl=337) Normal SMUDGE CELLS (BEAKER) (test jbal=3353) Present POLYCHROMATOPHILLIC RBCS(BEAKER) (test ngwu=430) 1+ few HYPOCHROMIA (BEAKER) (test jnnz=096) 1+ few ANISOCYTOSIS (BEAKER) (test spwk=109) 2+ moderate MICROCYTES (BEAKER) (test debq=830) 2+ moderate POIKILOCYTES (BEAKER) (test ewhh=456) 1+ few ARTIFACT (CELLAVISION)(BEAKER) (test fggf=4596) Present PLATELET CONCENTRATION (CELLAVISION)(BEAKER) Adequate (test czwf=0029) Received comment: User comments: Slide comments:CBC W/PLT COUNT & AUTO [id number] 20:06:00 Test Item Value Reference Range Comments WHITE BLOOD CELL COUNT (BEAKER) (test lrel=279) 72.1 K/ L 3.5-10.5 RED BLOOD CELL COUNT (BEAKER) (test dcwf=442) 4.97 M/ L 4.63-6.08 HEMOGLOBIN (BEAKER) (test flix=051) 13.1 GM/DL 13.7-17.5 HEMATOCRIT (BEAKER) (test rzct=293) 42.1 % 40.1-51.0 MEAN CORPUSCULAR VOLUME (BEAKER) (test gtih=900) 84.7 fL 79.0-92.2 MEAN CORPUSCULAR HEMOGLOBIN (BEAKER) (test 26.4 pg 25.7-32.2 xpva=607) MEAN CORPUSCULAR HEMOGLOBIN CONC (BEAKER) (test 31.1 GM/DL 32.3-36.5 azxc=009) RED CELL DISTRIBUTION WIDTH (BEAKER) (test 14.5 % 11.6-14.4 lgbo=433) PLATELET COUNT (BEAKER) (test drey=184) 247 K/CU MM 150-450 MEAN PLATELET VOLUME (BEAKER) (test ezkg=075) 10.6 fL 9.4-12.4 NUCLEATED RED BLOOD CELLS (BEAKER) (test 0 /100 WBC 0-0 kanz=810) RAD, CHEST, 2 [id number] 16:22:00Reason for Exam:->bladder cancer, pre- op testingFINAL [...] no acute cardiopulmonary abnormality. Signed: Brett Valente [facility] Verified Date/Time: 08/23/2017 16:22:14 Reading Location: [address] Reading Room Electronically signed by: BRETT VALENTE MD on 04:22 [facility] METABOL[facility] [id number] 16:10:00 Test Item Value Reference Range Comments SODIUM (BEAKER) (test 140 meq/L 136-145 lolc=876) POTASSIUM (BEAKER) (test 3.9 meq/L 3.5-5.1 atdm=117) CHLORIDE (BEAKER) (test 104 meq/L 98-107 sehx=746) CO2 (BEAKER) (test 25 meq/L 22-29 nhgd=978) BLOOD UREA NITROGEN 29 mg/dL 7-21 (BEAKER) (test oxtk=707) CREATININE (BEAKER) (test 1.59 mg/dL 0.57-1.25 yxzc=123) GLUCOSE RANDOM (BEAKER) 80 mg/dL 70-105 (test htvm=905) CALCIUM (BEAKER) (test 9.8 mg/dL 8.4-10.2 kssy=911) EGFR (BEAKER) (test 43 mL/min/1.73 sq m ESTIMATED GFR IS NOT emjd=8516) ACCURATE CREATININE CLEARANCE IN PREDICTING GLOMERULAR FILTRATION RATE. ESTIMATED GFR IS NOT APPLICABLE FOR DIALYSIS PATIENTS. URINALYSIS W/ [id number] 16:01:00 Test Item Value Reference Range Comments COLOR (BEAKER) (test tdwu=499) Light Yellow CLARITY (BEAKER) (test kaqb=730) Clear SPECIFIC GRAVITY UA (BEAKER) (test gvje=333) 1.012 1.001-1.035 PH UA (BEAKER) (test xlax=743) 7.0 5.0-8.0 PROTEIN UA (BEAKER) (test wvcf=776) 50 mg/dL Negative GLUCOSE UA (BEAKER) (test lujl=696) Negative Negative KETONES UA (BEAKER) (test vvxv=658) Negative Negative BILIRUBIN UA (BEAKER) (test epnx=401) Negative Negative BLOOD UA (BEAKER) (test aqia=285) Negative Negative NITRITE UA (BEAKER) (test jdhq=185) Negative Negative LEUKOCYTE ESTERASE UA (BEAKER) (test zllp=948) Negative Negative UROBILINOGEN UA (BEAKER) (test zamo=327) 0.2 mg/dL 0.2-1.0 RBC UA (BEAKER) (test kxfw=590) 1 /HPF WBC UA (BEAKER) (test info=512) < /HPF MUCUS (BEAKER) (test vtit=9071) Rare SOURCE(BEAKER) (test ikjn=9287) [id number] 15:55:00 Test Item Value Reference Range Comments PARTIAL THROMBOPLASTIN TIME (BEAKER) (test 31.6 seconds 22.5-36.0 jwxz=011) PROTHROMBIN TIME/[id number] 15:54:00 Test Item Value Reference Range Comments PROTIME (BEAKER) (test olsc=308) 14.8 seconds 11.7-14.7 INR (BEAKER) (test uuix=878) 1.2 <=5.9 RECOMMENDED COUMADIN/WARFARIN INR THERAPY RANGESSTANDARD DOSE: 2.0 - 3.0 Includes: PROPHYLAXIS forvenous thrombosis, systemic embolization; TREATMENT for venous thrombosis and/or pulmonary embolus.HIGH RISK: Target INR is 2.5-3.5 for patients with mechanical heart valves.HEMOGLOBIN [id number] 11:52:00 Test Item Value Reference Range Comments HEMOGLOBIN A1C (BEAKER) (test dfib=279) 6.9 % 4.3-6.1 [id number] 11:12:00 Test Item Value Reference Range Comments RPR SCREEN (BEAKER) (test yrbx=881) Nonreactive Nonreactive CBC W/PLT COUNT & AUTO [id number] 10:31:00 Test Item Value Reference Range Comments WHITE BLOOD CELL COUNT (BEAKER) (test kyzi=704) 23.5 K/ L 3.5-10.5 RED BLOOD CELL COUNT (BEAKER) (test empp=250) 3.90 M/ L 4.63-6.08 HEMOGLOBIN (BEAKER) (test yujt=345) 11.0 GM/DL 13.7-17.5 HEMATOCRIT (BEAKER) (test ehha=667) 34.6 % 40.1-51.0 MEAN CORPUSCULAR VOLUME (BEAKER) (test omgj=744) 88.7 fL 79.0-92.2 MEAN CORPUSCULAR HEMOGLOBIN (BEAKER) (test 28.2 pg 25.7-32.2 otjo=895) MEAN CORPUSCULAR HEMOGLOBIN CONC (BEAKER) (test 31.8 GM/DL 32.3-36.5 yqce=146) RED CELL DISTRIBUTION WIDTH (BEAKER) (test 14.2 % 11.6-14.4 nezy=297) PLATELET COUNT (BEAKER) (test iolw=930) 230 K/CU MM 150-450 MEAN PLATELET VOLUME (BEAKER) (test rdrg=582) 10.6 fL 9.4-12.4 NUCLEATED RED BLOOD CELLS (BEAKER) (test 0 /100 WBC 0-0 rdbt=922) NEUTROPHILS RELATIVE PERCENT (BEAKER) (test 32 % rpbn=760) LYMPHOCYTES RELATIVE PERCENT (BEAKER) (test 64 % wdhm=205) MONOCYTES RELATIVE PERCENT (BEAKER) (test 3 % qtra=274) EOSINOPHILS RELATIVE PERCENT (BEAKER) (test 0 % zshr=407) BASOPHILS RELATIVE PERCENT (BEAKER) (test 0 % dmgv=126) NEUTROPHILS ABSOLUTE COUNT (BEAKER) (test 7.57 K/ L 1.78-5.38 msnj=784) LYMPHOCYTES ABSOLUTE COUNT (BEAKER) (test 15.04 K/ L 1.32-3.57 mhtt=262) MONOCYTES ABSOLUTE COUNT (BEAKER) (test 0.68 K/ L 0.30-0.82 heck=715) EOSINOPHILS ABSOLUTE COUNT (BEAKER) (test 0.03 K/ L 0.04-0.54 tuis=741) BASOPHILS ABSOLUTE COUNT (BEAKER) (test 0.08 K/ L 0.01-0.08 lpat=261) IMMATURE GRANULOCYTES-RELATIVE PERCENT (BEAKER) 0 % 0-1 (test mdnd=7802) (MANUAL DIFFERENTIAL)2017-01-29 10:31:00 Test Item Value Reference Range Comments TOTAL COUNTED (BEAKER) (test rtef=7489) PLT MORPHOLOGY (BEAKER) (test ekmk=091) Normal RBC MORPHOLOGY (BEAKER) (test jrdv=022) Normal ATYPICAL LYMPHS(BEAKER) (test iulr=2191) Present SMUDGE CELLS (BEAKER) (test nude=9072) Present VITAMIN [id number] 08:02:00 Test Item Value Reference Range Comments VITAMIN B12 (BEAKER) (test qknn=794) 346 pg/mL 213-816 TSH/FREE T4 IF [id number] 08:02:00 Test Item Value Reference Range Comments THYROID STIMULATING HORMONE (BEAKER) (test 1.37 uIU/mL 0.35-4.94 twrw=628) CREATINE KINASE (CK), TOTAL AND [id number] 07:55:00 Test Item Value Reference Range Comments CREATINE KINASE TOTAL (BEAKER) (test scql=193) 72 U/L 29-200 CREATINE KINASE-MB (BEAKER) (test hpbg=903) 0.5 ng/mL 0.0-6.6 CREATINE KINASE-MB INDEX (BEAKER) (test vhfz=052) 0.7 % CK-MB Reference Range:<6.7 Normal6.7-10.0 Borderline>10.0 AbnormalTROPONIN [id number] 07:55:00 Test Item Value Reference Range Comments TROPONIN I (BEAKER) (test fdsm=300) 0.02 ng/mL 0.00-0.03 Troponin I (TnI) levels [...] acidosis, acute neurological disease, and persistent tachyarrhythmia.LIPID [id number] 07:39:00 Test Item Value Reference Range Comments TRIGLYCERIDES (BEAKER) (test eslw=226) 175 mg/dL CHOLESTEROL (BEAKER) (test rcqt=177) 104 mg/dL HDL CHOLESTEROL (BEAKER) (test cimu=663) 21 mg/dL LDL CHOLESTEROL CALCULATED (BEAKER) (test 48 mg/dL xyxq=716) Triglyceride Reference Range: Low Risk <150 Borderline 150- 199 High Risk 200-499 Very High Risk >=500Cholesterol Reference Range: Low Risk <200 Borderline 200-239 High Risk > 240HDL Cholesterol Reference Range: Low Risk >=60 High Risk <40LDL Cholesterol Reference Range: Optimal <100 Near Optimal 100-129 Borderline 130-159 High 160-189 Very High >=190BASIC METABOLIC [id number] 07:39:00 Test Item Value Reference Range Comments SODIUM (BEAKER) (test 141 meq/L 136-145 uvmj=305) POTASSIUM (BEAKER) (test 3.7 meq/L 3.5-5.1 jnpf=432) CHLORIDE (BEAKER) (test 108 meq/L 98-107 zlfo=570) CO2 (BEAKER) (test 23 meq/L 22-29 nfyr=701) BLOOD UREA NITROGEN 20 mg/dL 7-21 (BEAKER) (test fonq=120) CREATININE (BEAKER) (test 1.41 mg/dL 0.57-1.25 xnxr=179) GLUCOSE RANDOM (BEAKER) 111 mg/dL 70-105 (test kxsc=229) CALCIUM (BEAKER) (test 9.3 mg/dL 8.4-10.2 ietp=516) EGFR (BEAKER) (test 49 mL/min/1.73 sq m ESTIMATED GFR IS NOT iowi=0954) ACCURATE CREATININE CLEARANCE IN PREDICTING GLOMERULAR FILTRATION RATE. ESTIMATED GFR IS NOT APPLICABLE FOR DIALYSIS PATIENTS. MR, MRA, BRAIN, WITHOUT [id number] 04:30:00Reason for exam:-> Ischemic Stroke EvaluationFINAL REPORT [...] MDReport Verified Date/Time: 01/29/2017 04:30:36 Reading Location: [facility] C013X [facility] Consult Reading Room Electronically signed by: ZELALEM MACIEL MD on 2016 04:30 AMMR, MRA, NECK, WITHOUT IV [id number] 04:30:00Reason for exam:->Ischemic Stroke EvaluationFINAL REPORT MR, [...] Verified Date/Time: 01/29/2017 04 :30:36 Reading Location: [address] Reading Room MR, BRAIN, WITHOUT [id number] 04:30:00Reason for exam:->Ischemic Stroke EvaluationFINAL REPORT MR, [...] MDReport Verified Date/Time: 01/29/2017 04:30:36 Reading Location: [facility] C013X [facility] Reading Room Electronically signed by: ZELALEM MACIEL MD on 2016 04:30 AM
--- NOTE | 2017-12-27 16:35 | RAD REPORT ---
EXAM DESCRIPTION: Cat Pa And Lat (2 Views)12/27/2017 4:28 pm CLINICAL HISTORY: Cough COMPARISON: December 10, 2017 FINDINGS: The lungs appear clear of acute infiltrate. The heart is normal size. Aorta is tortuous/e ctatic IMPRESSION: No acute abnormalities displayed
--- NOTE | 2017-12-27 16:56 | EDPHYS ---
Physician Documentation [facility] Name: Duke Marin III Age: 72 yrs Sex: Male : 1945 Arrival Date: 12/27/2017 Time: 15:35 Bed 20 Private MD: Javi Looney ED Physician Russell De La Paz HPI: 12/27 16:54 This 72 yrs old Male presents to ER via Wheelchair with complaints of jmm Decreased air movement. 16:54 The patient or guardian reports cough, described as moderate. Onset: The jmm symptoms/episode began/occurred gradually, 3 day(s) ago. Modifying factors: The symptoms are alleviated by nothing. the symptoms are aggravated by nothing. Associated signs and symptoms: Pertinent positives: Pertinent negatives: fever. This is a 72 year old male with a historyo of CLL, CVA, HTN that presents to the ED with cough, congestion for 3 days. Denies fever. States having a productive cough. Evaluated at urgent care, concerned due to decreased lungs sounds. Patient denies chest pain. Historical: - Allergies: 15:55 Pseudoephedrine; aj1 15:55 ephedrine sulfate; aj1 - Home Meds: 15:55 "Cardia" 240mg Daily [Active]; aspirin 81 mg Oral chew [Active]; Bystolic 10 mg Oral aj1 tab once daily [Active]; Bystolic 5 mg Oral tab nightly [Active]; Crestor 10 mg Oral tab 1 tab once daily [Active]; Plavix 75 mg Oral tab 1 tab once daily [Active]; valsartan 75 mg Oral once daily [Active]; - PMHx: 15:55 Bladder cancer; CLL; CVA; enlarged aorta; Hypertension; SVT; aj1 - Immunization history:: Flu vaccine is not up to date. - Social history:: Smoking status: Patient/guardian denies using tobacco. - Ebola Screening: : Patient denies travel to an Ebola-affected area in the 21 days before illness onset. ROS: 16:54 Constitutional: Negative for fever, chills, and weight loss. jmm 16:54 Cardiovascular: Negative for chest pain, palpitations, and edema. 16:54 Abdomen/GI: Negative for abdominal pain, nausea, vomiting, diarrhea, and constipation, Back: Negative for injury and pain, Skin: Negative for injury, rash, and discoloration, Neuro: Negative for headache, weakness, numbness, tingling, and seizure. 16:54 ENT: Positive for sinus congestion. 16:54 Respiratory: Positive for cough. 16:54 All other systems are negative. Exam: 16:54 Head/Face: atraumatic. Eyes: EOMI, no conjunctival erythema appreciated ENT: Moist jmm Mucus Membranes Chest/axilla: Normal chest wall appearance and motion. 16:54 Constitutional: The patient appears in no acute distress, alert, awake. 16:54 Cardiovascular: Rate: normal, Rhythm: regular, Pulses: no pulse deficits are appreciated. 16:54 Respiratory: the patient does not display signs of respiratory distress, Respirations: normal, Breath sounds: are clear throughout. 16:54 Abdomen/GI: Inspection: abdomen appears normal. 16:54 Back: ROM is normal. 16:54 Musculoskeletal/extremity: ROM: intact in all extremities. 16:54 Skin: Appearance: Color: normal in color. 16:54 Neuro: Orientation: is normal, Mentation: is normal, Memory: is normal, Gait: is steady. Vital Signs: 15:55 BP 152 / 88; Pulse 75; Resp 24; Temp 97.7(TE); Pulse Ox 96% on R/A; Weight 90.72 kg aj1 (R); Height 5 ft. 10 in. (177.80 cm) (R); Pain 0/10; 15:55 Body Mass Index 28.70 (90.72 kg, 177.80 cm) aj1 MDM: 16:54 Patient medically screened. [facility] 16:54 Data reviewed: vital signs, nurses notes. Data interpreted: Pulse oximetry: on room air jmmike is 96 %. Interpretation: normal. Counseling: I had a detailed discussion with the patient and/or guardian regarding: the historical points, exam findings, and any diagnostic results supporting the discharge/admit diagnosis, radiology results, the need for outpatient follow up, to return to the emergency department if symptoms worsen or persist or if there are any questions or concerns that arise at home. 16:54 ED course: Patient is alert and non toxic in appearance in the ED. CXR clear. Patient jmm given strict return precautions. Patient understood and agrees with the plan of care. . 12/27 15:57 Order name: Chest Pa And Lat (2 Views) XRAY; Complete Time: 16:47 aj1 Administered Medications: No medications were administered Disposition: 12/27/17 16:55 Discharged to Home. Impression: Acute sinusitis, Acute bronchitis. - Condition is Stable. - Discharge Instructions: Acute Bronchitis, Adult, Sinusitis, Adult. - Prescriptions for Augmentin 875- 125 mg Oral Tablet - take 1 tablet by ORAL route every 12 hours for 10 days; 20 tablet. - Medication Reconciliation Form, Thank You Letter, Antibiotic Education, Prescription Opioid Use form. - Follow up: Javi Looney MD; When: 2 - 3 days; Reason: Recheck today's complaints, Continuance of care, Re-evaluation by your physician. Addendum: 01/01/2018 06:24 Co-signature as Attending Physician, Russell De aL Paz MD I agree with the assessment and c mccray plan of care. Signatures: Dispatcher [employer] EDMS Arianna Siddiqui RN RN aj1 Analisa Watkins RN RN sv Anderson, Corey, MD MD cha Mickail, Joel, PA PA jm Corrections: (The following items were deleted from the chart) 12/27 17:16 16:55 12/27/2017 16:55 Discharged to Home. Impression: Acute sinusitis; Acute sv bronchitis. Condition is Stable. Forms are Medication Reconciliation Form, Thank You Letter, Antibiotic Education, Prescription Opioid Use. Follow up: Javi Looney; When: 2 - 3 days; Reason: Recheck today's complaints, Continuance of care, Re-evaluation by your physician. shabana 12/28 01:48 12/27 16:54 Counseling: I had a detailed discussion with the patient and/or guardian shabana regarding: the historical points, exam findings, and any diagnostic results supporting the discharge/admit diagnosis, radiology results, the need for outpatient follow up, to return to the emergency department if symptoms worsen or persist or if there are any questions or concerns that arise at home, shabana
--- NOTE | 2017-12-27 16:56 | ER ---
Nurse's Notes [facility] Name: Duke Marin III Age: 72 yrs Sex: Male : 1945 Arrival Date: 12/27/2017 Time: 15:35 Bed 20 Private MD: Javi Looney Diagnosis: Acute sinusitis;Acute bronchitis Presentation: 12/27 15:51 Presenting complaint: Patient states: Productive cough and congestion for the past 3 aj1 days. He was seen at [facility], the nurse practitioner they saw said that he had "decreased air movement" and that he should come to the emergency room for a chest X-Ray and evaluation. Denies SOB, Denies fever. Breath sounds diminished in bilateral bases. Transition of care: patient was not received from another setting of care. Onset of symptoms was December 24, 2017. Risk Assessment: Do you want to hurt yourself or someone else? Patient reports no desire to harm self or others. Initial Sepsis Screen: Does the patient meet any 2 criteria? No. Patient's initial sepsis screen is negative. Does the patient have a suspected source of infection? Yes: Productive cough/pneumonia. Care prior to arrival: None. 15:51 Method Of Arrival: Wheelchair aj1 15:51 Acuity: PARAG 3 aj1 Triage Assessment: 15:55 General: Appears in no apparent distress. comfortable, Behavior is calm, cooperative, aj1 appropriate for age. Pain: Denies pain. Neuro: Level of Consciousness is awake, alert, obeys commands. Cardiovascular: Patient's skin is warm and dry. Respiratory: Reports cough that is productive, hacking, persistent Airway is patent Respiratory effort is even, unlabored, Respiratory pattern is regular, symmetrical, Denies shortness of breath. Historical: - Allergies: 15:55 Pseudoephedrine; aj1 15:55 ephedrine sulfate; aj1 - Home Meds: 15:55 "Cardia" 240mg Daily [Active]; aspirin 81 mg Oral chew [Active]; Bystolic 10 mg Oral aj1 tab once daily [Active]; Bystolic 5 mg Oral tab nightly [Active]; Crestor 10 mg Oral tab 1 tab once daily [Active]; Plavix 75 mg Oral tab 1 tab once daily [Active]; valsartan 75 mg Oral once daily [Active]; - PMHx: 15:55 Bladder cancer; CLL; CVA; enlarged aorta; Hypertension; SVT; aj1 - Immunization history:: Flu vaccine is not up to date. - Social history:: Smoking status: Patient/guardian denies using tobacco. - Ebola Screening: : Patient denies travel to an Ebola-affected area in the 21 days before illness onset. Screenin:54 Abuse screen: Denies threats or abuse. Denies injuries from another. Nutritional sv screening: No deficits noted. Tuberculosis screening: No symptoms or risk factors identified. Fall Risk None identified. Assessment: 16:54 General: Appears in no apparent distress. comfortable, well developed, Behavior is sv calm, cooperative, appropriate for age. Pain: Denies pain. Neuro: Level of Consciousness is awake, alert, obeys commands, Oriented to person, place, time, situation, Moves all extremities. Full function Gait is steady, Speech is normal. Respiratory: Respiratory effort is even, unlabored, Respiratory pattern is regular, symmetrical. Derm: Skin is normal. Vital Signs: 15:55 BP 152 / 88; Pulse 75; Resp 24; Temp 97.7(TE); Pulse Ox 96% on R/A; Weight 90.72 kg aj1 (R); Height 5 ft. 10 in. (177.80 cm) (R); Pain 0/10; 15:55 Body Mass Index 28.70 (90.72 kg, 177.80 cm) aj1 ED Course: 15:35 Patient arrived in ED. mr 15:35 Javi Looney MD is Private Physician. mr 15:54 Triage completed. aj1 15:55 Arm band placed on Patient placed in waiting room, Patient notified of wait time. aj1 16:20 Patient moved to radiology via wheelchair. kw 16:28 Chest Pa And Lat (2 Views) XRAY In Process Unspecified. EDMS 16:28 X-ray completed. Patient tolerated procedure well. jb2 16:28 Patient taken to lobby, via wheelchair, Patient moved back from radiology. jb2 16:47 Paresh Blancas PA is PHCP. jmm 16:47 Russell De La Paz MD is Attending Physician. jmm 16:49 Analisa Watkins, CHRISTOPHER is Primary Nurse. sv 16:54 Patient has correct armband on for positive identification. Bed in low position. Adult sv w/ patient. 16:55 Javi Looney MD is Referral Physician. [facility] 17:16 No provider procedures requiring assistance completed. Patient did not have IV access sv during this emergency room visit. Administered Medications: No medications were administered Outcome: 16:55 Discharge ordered by . [facility] 17:16 Patient left the ED. sv 17:16 Discharged to home via wheelchair, with family. sv 17:16 Condition: stable 17:16 Discharge instructions given to patient, family, Instructed on discharge instructions, follow up and referral plans. medication usage, Demonstrated understanding of instructions, follow-up care, medications, Prescriptions given X 1. Signatures: Dispatcher [employer] EDMS Arianna Siddiqui RN RN ajAnalisa Gaytan RN RN sv Paresh Blancas PA PA jmm Rivera, Mary mr Buechter, Jesse jb2 Whitley, Kimberlee kw
[2017-12-27 18:50] VITALS: BP 152/88; TEMP 97.7; O2SAT 96
== END 2017-12-27 17:16 | disposition home or self-care (01) ==
LOC: ER 15:31
DX: J20.9 Acute bronchitis, unspecified (principal); J01.90 Acute sinusitis, unspecified; I10 Essential (primary) hypertension; Z79.01 Long term (current) use of anticoagulants; Z79.82 Long term (current) use of aspirin; Z88.8 Allergy status to other drugs, medicaments and biological substances; Z85.51 Personal history of malignant neoplasm of bladder; Z86.73 Personal history of transient ischemic attack (TIA), and cerebral infarction without residual deficits
CPT/HCPCS: 71046; 99283

== ENCOUNTER 2018-03-19 12:34 | Emergency (ER) | payer OTHER, MEDICARE ==
--- OUTSIDE RECORDS SUMMARY | 2018-03-19 12:37 | XMS REPORT | Clinical Summary ---
:1945 Author Organization [facility] Address [address] [place] [address] Care Team Providers Name Role Phone Javi [...] Cerebral infarction, unspecified mechanism (Primary Dx) after 03/18/2017 Family History Medical History Relation Name Comments [...] Last Done Comments COLON CANCER SCREENING 1995 SHINGLES VACCINES (1 of 2) 1995 PNEUMOCOCCAL POLYSACCHARIDE VACCINE AGE 65 AND OVER [...] in unspecified the results mechanism section. after 03/18/2017 Results Outpatient EEG (05/30/2017 7:03 AM CDT) [...] Non Af Amer 50 (A) mL/min/1.73 m2 [facility]PARTMENT OF PATHOLOGY AND [facility] GFR Af Amer 60 mL/min/1.73 m2 [facility] DEPARTMENT OF Comment: PATHOLOGY AND GENOMIC Chronic [...] Americans. Specimen Plasma specimen Performing Organization Address City/State/[facility] Phone Number [facility] PATH[facility]Y [address] [place] [address]. [place] [address] AND [facility] Sedimentation rate (05/15/2017 2:28 PM CDT) Sedimentation rate 4 0 - 10 mm/hr [facility] OF PATHOLOGY AND [facility] Specimen Blood Performing Organization Address [facility] Phone Number [facility] OF PATHOLOGY [address] [place] [address]. [place] [address] AND [facility] CRP high sensitivity (05/15/2017 2:28 PM CDT) CRP, high sensitivity 0.95 mg/L [facility] DEPARTMENT OF Comment: PATHOLOGY AND GENOMIC Please [...] infection Specimen Plasma specimen Performing Organization Address City/State/Zipcode Phone Number [facility] DEPARTMENT OF PATHOLOGY AND [address] [place] [address] [facility] Hemoglobin A1c (05/15/2017 2:28 PM CDT) Hemoglobin A1C 6.8 (H) 4.0 - 6.0 % [facility] OF PATHOLOGY Comment: AND GENOMIC MEDICINE Less than 6% - Goal of therapy for Type II Diabetes Less than 7%-Goal of therapy for Type I Diabetes Less than 8%-Acceptable control for Type I or Type II Diabetes Greater than 8%-Unacceptable control; action indicated. ([id number]) Specimen Blood Performing Organization Address City/State/Zipcode Phone Number [facility] DEPARTMENT OF PATHOLOGY [address] [place] [address] AND [facility] Folate level (05/15/2017 2:28 PM CDT) Folate 13.2 4.8 - 24.2 ng/mL [facility] DEPARTMENT OF PATHOLOGY AND GENOMIC MEDICINE Specimen Serum Performing Organization Address City/State/Zipcode Phone Number [facility] DEPARTMENT OF PATHOLOGY AND [address] [place] [address] [facility] Vitamin B12 level (05/15/2017 2:28 PM CDT) Vitamin B12 552 211 - 946 pg/mL [facility]PARTMENT OF PATHOLOGY Comment: AND [facility] Significant overlap exists between normal and deficiency states. However, most patients with deficiencies will have Serum B12 <200 pg/mL. Specimen Serum Performing Organization Address City/State/Zipcode Phone Number [facility] DEPARTMENT OF PATHOLOGY AND [address] [place] [address] [facility] Lipid panel (05/15/2017 2:28 PM CDT) Cholesterol 153 0 - 199 mg/dL [facility] OF PATHOLOGY AND GENOMIC MEDICINE Triglycerides 334 (H) 0 - 149 mg/dL [facility] OF PATHOLOGY AND GENOMIC MEDICINE HDL cholesterol 22 (L) 40 - 99,999 [facility] DEPARTMENT OF mg/dL PATHOLOGY AND GENOMIC MEDICINE LDL cholesterol 85 0 - 99 mg/dL [facility] DEPARTMENT OF PATHOLOGY AND GENOMIC MEDICINE Lipid panel See below [facility] DEPARTMENT OF interpretation Comment: PATHOLOGY AND Total Cholesterol (mg/dL) GENOMIC MEDICINE <200 Desirable [id number] >=240High Triglycerides (mg/dL) <150 Normal [id number] 200-499High >=500Very high HDL Cholesterol (mg/dL) <40Low (male) <50Low (female) LDL Cholesterol (mg/dL) <100 Optimal 100-129Near or above optimal [id number] 160-189High >=190Very high Risk Catergories that modify [...] specimen Performing Organization Address City/State/Zipcode Phone Number [facility] DEPARTMENT OF PATHOLOGY [address] [place] [address] AND [facility] Comprehensive metabolic panel (05/15/2017 2:28 PM CDT) Sodium 144 135 - 148 mEq/L [facility] DE[facility] OF PATHOLOGY AND GENOMIC MEDICINE Potassium 3.8 3.5 - 5.0 mEq/L [facility] OF PATHOLOGY AND GENOMIC MEDICINE Chloride 102 98 - 112 mEq/L [facility] OF PATHOLOGY AND GENOMIC MEDICINE CO2 28 24 - 31 mEq/L [facility] OF PATHOLOGY AND GENOMIC MEDICINE Anion gap 14 7 - 15 mEq/L [facility] DEPARTMENT OF Comment: PATHOLOGY AND GENOMIC Starting from May , anion gap calculation MEDICINE no longer incorporates potassium. Please note the change. BUN 26 (H) 8 - 23 mg/dL [facility] OF PATHOLOGY AND GENOMIC MEDICINE Creatinine 1.4 (H) 0.7 - 1.2 mg/dL [facility] OF PATHOLOGY AND GENOMIC MEDICINE Glucose 79 65 - 99 mg/dL [facility] OF PATHOLOGY AND GENOMIC MEDICINE Calcium 9.7 8.8 - 10.2 mg/dL [facility] DE[facility]MENT OF PATHOLOGY AND GENOMIC MEDICINE Protein 7.0 6.3 - 8.3 g/dL [facility] OF PATHOLOGY AND GENOMIC MEDICINE Albumin 4.5 3.5 - 5.0 g/dL [facility] DEPARTMENT OF PATHOLOGY AND GENOMIC MEDICINE A/G ratio 1.8 0.7 - 3.8 [facility] OF PATHOLOGY AND GENOMIC MEDICINE Alkaline phosphatase 94 40 - 129 U/L [facility] DEPARTMENT OF PATHOLOGY AND GENOMIC MEDICINE AST 17 10 - 50 U/L [facility] DEPARTMENT OF PATHOLOGY AND GENOMIC MEDICINE ALT 12 5 - 50 U/L [facility] DE[facility]MENT OF PATHOLOGY AND GENOMIC MEDICINE Total bilirubin 0.3 0.2 - 1.2 mg/dL [facility] DEPARTMENT OF PATHOLOGY AND GENOMIC MEDICINE Specimen Plasma specimen Performing Organization Address City/State/Zipcode Phone Number [facility] DEPARTMENT OF PATHOLOGY [address] [place] [address] AND [facility]ICINE after 03/18/2017 Insurance Payer Benefit Plan / Group Subscriber ID Type Phone Address [employer] AET[employer] PPO OPEN CHOICE xxxxxxxxx PPO MEDICARE MEDICARE PART A AND B xxxxxxxxxx Medicare [place], [place] Advance Directives Patient has advance care planning documents on file. For more information, please contact:[place] [address]
--- OUTSIDE RECORDS SUMMARY | 2018-03-19 12:38 | XMS REPORT | Clinical Summary ---
:1945 Author Organization [facility] Address [address] [place] [address] Care Team Providers Name Role Phone Aayush Javi Primary Care Provider Allergies Active Allergy Reactions Severity Noted Date Comments Ciprofloxacin Palpitations Low 09/07/2017 Heart rate increase. Clonidine High 01/28/2017 Makes him extremely depressed Coconut Swelling 01/29/2017 Lip and tongue swelling Pseudoephedrine Other (See Comments) 01/28/2017 Irregular heart beat Medications Medication Sig Dispensed Refills Start Date End Date Status nebivolol (BYSTOLIC) Take 10 mg by 0 Active 10 MG tablet mouth daily Taken in AM. dilTIAZem (CARDIZEM Take 240 mg by 0 Active CD) 240 MG 24 hr mouth daily. capsule rosuvastatin Take 10 mg by 0 Active (CRESTOR) 10 MG mouth daily At tablet bedtime . clopidogrel (PLAVIX) Take 75 mg by 0 Active 75 mg tablet mouth daily. aspirin 81 MG EC Take 81 mg by 0 Active tablet mouth daily. VALSARTAN ORAL Take 160 mg by 0 Active mouth daily . nebivolol (BYSTOLIC) Take 5 mg by 0 Active 5 MG tablet mouth nightly. tamsulosin (FLOMAX) Take 0.4 mg by 0 [...] 2 (two) times daily for 7 days. phenazopyridine Take 1 tablet 10 tablet 0 02/16/2018 (PYRIDIUM) 200 MG (200 mg total) 9 tablet by mouth 3 (three) times daily as needed for Pain for up to 3 days. nitrofurantoin, Take 1 capsule 14 capsule 0 02/16/2018 macrocrystal-monohyd (100 mg total) 9 rate, (MACROBID) 100 by mouth 2 MG capsule (two) times daily for 7 days. Active Problems Problem Noted Date Bladder cancer 08/25/2017 CVA (cerebral vascular accident) 01/28/2017 Paroxysmal atrial fibrillation 01/28/2017 CLL (chronic lymphocytic leukemia) 01/28/2017 Essential hypertension 01/28/2017 History of lacunar cerebrovascular accident (CVA) 01/28/2017 Encounters Date Type Specialty Care Team Description 02/16/2018 Anesthesia Event Chinedu Figueredo MD 02/16/2018 Surgery Brown Garcia CYSTOSCOPY,TURBT MD Louis 02/16/2018 Hospital Encounter Brown Garcia Malignant neoplasm MD Louis of urinary bladder, unspecified site (HCC) 02/12/2018 Hospital Encounter 02/12/2018 Hospital Encounter Pre-Admission Brown Garcia Malignant neoplasm of urinary bladder, unspecified site (HCC); Stephanie Myers MD Urinary tract infection without hematuria, site unspecified 01/29/2018 Orders Only Urology Brown Garcia Malignant neoplasm of urinary bladder, unspecified site (HCC) (Primary Dx); MD Louis Urinary tract infection without hematuria, site unspecified 08/25/2017 Surgery Brown Garcia CYSTOSCOPY,TRUDI Myers MD [facility] 08/25/2017 Anesthesia Event Chinedu Figueredo MD 08/25/2017 Hospital Encounter Brown Garcia Malignant neoplasm of urinary bladder, unspecified site (HCC); MD Louis Pre-op testing; Bacteremia 08/23/2017 Hospital Encounter Cardiology Brown Garcia MD 08/23/2017 Hospital Encounter Brown Garcia MD 08/23/2017 Hospital Encounter Pre-Admission Brown Garcia MD 08/23/2017 Hospital Encounter Pre-Admission Borwn Garcia Malignant neoplasm of urinary bladder, unspecified site (HCC); Testing MD Louis Pre-op testing; Bacteremia ; Abnormal coagulation profile 08/23/2017 Orders Only General Internal Medicine 08/23/2017 Outside Orders Lab Amee Lugo Iris 08/21/2017 Orders Only Urology Brown Garcia MD 08/07/2017 Orders Only Urology Brown Garcia Malignant neoplasm of urinary bladder, unspecified site (HCC) (Primary Dx); MD Louis Pre-op testing; Bacteremia ; Abnormal coagulation profile after 03/18/2017 Social History Tobacco Use Types Packs/Day Years Used Date Former Smoker Smokeless Tobacco: Never Used Comments: quit dec 2016 Alcohol Use Drinks/Week oz/Week Comments Yes occasional Sex Assigned at Date Recorded Not on file Job Start Date Occupation Industry Not on file Not on file Not on file Travel History Travel Start Travel End No recent travel history available. Last Filed Vital Signs Vital Sign Reading Time Taken Blood Pressure 146/76 02/16/2018 2:15 PM LEARNING COORDINATOR Pulse 57 02/16/2018 2:15 PM LEARNING COORDINATOR Temperature 36.4 C (97.6 F) 02/16/2018 2:30 PM LEARNING COORDINATOR Respiratory Rate 17 02/16/2018 2:30 PM LEARNING COORDINATOR Oxygen Saturation 95% 02/16/2018 2:15 PM LEARNING COORDINATOR Inhaled Oxygen Concentration - - Weight 89.7 kg (197 lb 11.2 oz) 02/16/2018 7:44 AM LEARNING COORDINATOR Height 177.8 cm (5' 10") 02/16/2018 7:44 AM LEARNING COORDINATOR Body Mass Index 28.37 02/16/2018 7:44 AM LEARNING COORDINATOR Plan of Treatment Not on file Procedures Procedure Name Priority Date/Time Associated Diagnosis Comments TISSUE EXAM AP Routine 02/16/2018 10:04 AM Results for this LEARNING COORDINATOR procedure are in the results section. CYSTOSCOPY,TURBT 02/16/2018 9:00 AM Malignant neoplasm LEARNING COORDINATOR of urinary bladder, unspecified site (HCC) Special Needs ([facility]) TRANSFUSION SERVICE 02/14/2018 5:54 REPORT - SCAN PM LEARNING COORDINATOR TRANSFUSION SERVICE 02/13/2018 5:56 REPORT - SCAN PM LEARNING COORDINATOR ANTIBODY Routine 02/13/2018 3:52 Results for this IDENTIFICATION PM LEARNING COORDINATOR procedure are in the results section. XR CHEST 2 VIEWS Routine 02/12/2018 4:14 Malignant neoplasm Results for this PM LEARNING COORDINATOR of urinary procedure are in bladder, the results unspecified site section. (HCC) (CELLAVISION MANUAL Routine 02/12/2018 3:20 Malignant neoplasm Results for this DIFF) PM LEARNING COORDINATOR of urinary procedure are in bladder, the results unspecified site section. (HCC) CBC W/PLT COUNT & AUTO Routine 02/12/2018 3:20 Malignant neoplasm Results for this DIFFERENTIAL PM LEARNING COORDINATOR of urinary procedure are in bladder, the results unspecified site section. ([facility]) TYPE AND SCREEN, Routine 02/12/2018 3:20 Malignant neoplasm Results for this AUTOMATED PM LEARNING COORDINATOR of urinary procedure are in bladder, the results unspecified site section. ([facility]) BASIC METABOLIC PANEL Routine 02/12/2018 3:20 Malignant neoplasm Results for this (7) PM LEARNING COORDINATOR of urinary procedure are in bladder, the results unspecified site section. (HCC) CBC W/PLT COUNT & AUTO Routine 02/12/2018 3:20 Malignant neoplasm Results for this DIFFERENTIAL PM LEARNING COORDINATOR of urinary procedure are in bladder, the results unspecified site section. ([facility]) URINALYSIS W/ Routine 02/12/2018 3:20 Malignant neoplasm Results for this MICROSCOPIC PM LEARNING COORDINATOR of urinary procedure are in bladder, the results unspecified site section. ([facility]) URINE CULTURE Routine 02/12/2018 3:20 Urinary tract Results for this PM LEARNING COORDINATOR infection without procedure are in hematuria, site the results unspecified section. Malignant neoplasm of urinary bladder, unspecified site (HCC) TISSUE EXAM AP Routine 08/25/2017 10:30 Results for this AM CDT procedure are in the results section. CYSTOSCOPY,TURBT 08/25/2017 10:00 Malignant neoplasm AM CDT of urinary bladder, unspecified site (HCC) [...] 532 ms QTC Calculation(Bazett) 517 ms P Ararat 24 degrees R Ararat -19 degrees T Ararat 74 degrees Sinus bradycardia with 1st degree [...] unspecified site (HCC) results Pre-op testing section. after 03/18/2017 Results Tissue Exam (02/16/2018 10:04 AM LEARNING COORDINATOR)Only the most recent of2 resultswithin the time period is included. Case Report Surgical Pathology Report Case: [id number] [facility] Authorizing Provider:Brown Garcia MDCollected: 02/16/2018 [facility] Ordering Location: [facility] PERIOPERATIVE Received: 02/16/2018 1117 SERVICES Pathologist: Nicolas Diaz MD Specimens: A) - Bladder Tumor, low posterior wall tumor B) - Bladder Tumor, right bladder wall tumor C) - Bladder Tumor, bladder dome DIAGNOSIS A. URINARY BLADDER, LOW POSTERIOR WALL, BIOPSY: [facility] - MARKED CHRONIC INFLAMMATION WITH REACTIVE UROTHELIAL CHANGES [facility] - NEGATIVE FOR DYSPLASIA OR MALIGNANCY B. 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 Low posterior wall [facility] tumor. B. Right bladder [facility] wall tumor. C. Bladder dome GROSS DESCRIPTION Specimen is received in three containers of formalin all labeled with the patient's information. [facility] Specimen A: Labeled "low posterior wall bladder tumor" consists of a 0.5 cm fragment of lyles-pink soft tissue submitted in A1. Specimen B: Labeled "bladder tumor right bladder wall" consists of multiple fragments of lyles-red soft tissue ranging from 0.1 to 0.5 cm, submitted in B1. Specimen C: Consists of three fragments of lyles-red soft tissue ranging from 0.4 and 0.6 cm, submitted entirely in C1. CG/ew MICROSCOPIC DESCRIPTION A-C. Performed. [facility] Specimen Tissue - Bladder Tumor Performing Organization Address City/State/Zipcode Phone Number [facility] [address] [place] [address] CENTER TRANSFUSION SERVICE REPORT - SCAN (02/14/2018 5:54 PM LEARNING COORDINATOR)Only the most recent of3 resultswithin the time period is included. Narrative Performed At Antibody identification (02/13/2018 3:52 PM LEARNING COORDINATOR) ANTIBODY ID (MAREK) UNID IgG [place] Antibody Consult SIGNED OUTComment: An IgG antibody of [place] undetermined specificity is detected, transfuse crossmatch compatible RBCs.Electronic Signature: Ismael Pool M.D. Performing Organization Address City/State/Zipcode Phone Number [place] XR chest 2 views (02/12/2018 4:14 PM LEARNING COORDINATOR)Only the most recent of2 resultswithin the time period is included. Narrative Performed At FINAL REPORT [facility] Chest, PA and lateral. History: Preoperative. Comparison: 08/24/2017. Discussion: Cardiomegaly and thoracic aortic ectasia. The lungs are clear without evidence of consolidation or effusion.There are no acute osseous abnormalities. The soft tissues are unremarkable. IMPRESSION: No acute cardiopulmonary abnormality. Signed: Humberto Weaver MD Report Verified Date/Time:02/12/2018 16:22:15 Reading Location: [address] Radiology Reading Room Procedure Note Interface, External Ris In - 02/12/2018 4:24 PM LEARNING COORDINATOR FINAL REPORT Chest, PA and lateral. History: Preoperative. Comparison: 08/24/2017. Discussion: Cardiomegaly and thoracic aortic ectasia. The lungs are clear without evidence of consolidation or effusion. There are no acute osseous abnormalities. The soft tissues are unremarkable. IMPRESSION: No acute cardiopulmonary abnormality. Signed: Humberto Weaver MD Report Verified Date/Time: 02/12/2018 16:22:15 Reading Location: [address] Radiology Reading Room Performing Organization Address City/State/Zipcode Phone Number [facility] Manual Differential (02/12/2018 3:20 PM LEARNING COORDINATOR)Only the most recent of2 resultswithin the time period is included. % Neutros 9 % [facility] % Lymphs 81 % [facility] % Eos 2 % [facility] % Atypical Lymphs 8 (H) 0 - 0 % [facility] # Neutros 7.83 (H) 1.78 - 5.38 K/ul [facility] # Lymphs 70.47 (H) 1.32 - 3.57 K/ul [facility] # Eos 1.74 (H) 0.04 - 0.54 K/uL [facility] # Atypical Lymphs 6.96 (H) 0.00 - 0.00 K/uL [facility] Total Counted 100 [facility] Platelet Morphology Normal [facility] Smudge Cells Present [facility] Anisocytosis 3+ many [facility] Microcytes 3+ many [facility] Poikilocytes 1+ few [facility] Elliptocytes 1+ few [facility] Artifact Present [facility] Platelet Conc Adequate [facility] Specimen Blood Narrative Performed At Received comment: [facility] User comments: Slide comments: Performing Organization Address City/State/Zipcode Phone Number [address] [address] CENTER Type and screen, automated (02/12/2018 3:20 PM LEARNING COORDINATOR)Only the most recent of2 resultswithin the time period is included. ABO/RH AUTOMATED (BEAKER) A [facility] Ab Scrn [facility] Specimen Blood Performing Organization Address City/[facility]/Zipcode Phone Number [facility] [address] [place] [address] [phone] CBC with platelet count + automated diff (02/12/2018 3:20 PM LEARNING COORDINATOR)Only the most recent of2 resultswithin the time period is included. WBC 87.0 (HH) 3.5 - 10.5 K/L [facility] RBC 4.39 (L) 4.63 - 6.08 M/L [facility] Hemoglobin 12.4 (L) 13.7 - 17.5 GM/DL [facility] Hematocrit 39.1 (L) 40.1 - 51.0 % [facility] MCV 89.1 79.0 - 92.2 fL [facility] MCH 28.2 25.7 - 32.2 pg [facility] MCHC 31.7 (L) 32.3 - 36.5 GM/DL [facility] RDW 14.9 (H) 11.6 - 14.4 % [facility] Platelets 226 150 - 450 K/CU MM [facility] MPV 10.4 9.4 - 12.4 fL [facility] nRBC 0 0 - 0 /100 WBC [facility] Specimen Blood Performing Organization Address City/State/Zipcode Phone Number [facility] [address] [place] [address] [phone] CENTER Urinalysis w/ Microscopic (02/12/2018 3:20 PM LEARNING COORDINATOR)Only the most recent of2 resultswithin the time period is included. Color, UA Light Yellow [facility] Clarity, UA Clear [facility] Specific [place], UA 1.012 1.001 - 1.035 [facility] pH, UA 6.5 5.0 - 8.0 [facility] Protein, UA 50 mg/dL (A) Negative [facility] Glucose, UA Negative Negative [facility] Ketones, UA Negative Negative [facility] Bilirubin, UA Negative Negative [facility] Blood, UA Trace (A) Negative [facility] Nitrite, UA Negative Negative [facility] Leukocytes, UA Large (A) Negative [facility] Urobilinogen, UA 0.2 0.2 - 1.0 mg/dL [facility] RBC, UA 1 /HPF [facility] WBC, UA 60 /HPF [facility] Bacteria, UA Few [facility] Mucus Rare [facility] Squam Epithel, UA <1 /HPF [facility] Hyaline Casts, UA 1 /LPF [facility] Crystals, Urine Occasional [facility] Yeast Occasional [facility] Specimen Source [facility] Specimen Urine Performing Organization Address City/State/Zipcode Phone Number [facility] [address] [place] [address] [phone] CENTER Urine culture (02/12/2018 3:20 PM LEARNING COORDINATOR)Only the most recent of2 resultswithin the time period is included. Result ENTEROCOCCUS FAECALIS (A) [facility] Specimen Urine - Urine, Clean Catch Narrative Performed At 50-59,000 col/mL skin eunice [facility] Organism Antibiotic Method Susceptibility Enterococcus faecalis Ampicillin <=2: Susceptible Enterococcus faecalis Linezolid 2: Susceptible Enterococcus faecalis Nitrofurantoin <=16: Susceptible Enterococcus faecalis Tetracycline <=1: Susceptible Enterococcus faecalis Vancomycin 1: Susceptible Performing Organization Address [facility] [[email or web address] Phone Number [facility] [address] [place], [place] [address] [phone] [place] Basic Metabolic Panel (02/12/2018 3:20 PM LEARNING COORDINATOR)Only the most recent of2 resultswithin the time period is included. Sodium 140 136 - 145 meq/L [facility] Potassium 3.9 3.5 - 5.1 meq/L [facility] Chloride 103 98 - 107 meq/L [facility] CO2 26 22 - 29 meq/L [facility] BUN 24 (H) 7 - 21 mg/dL [facility] Creatinine 1.45 (H) 0.57 - 1.25 mg/dL [facility] Glucose 110 (H) 70 - 105 mg/dL [facility] Calcium 9.6 8.4 - 10.2 mg/dL [facility] EGFR 48Comment: ESTIMATED GFR IS mL/min/1.73 sq m [facility] NOT ACCURATE CREATININE [facility] CLEARANCE IN PREDICTING GLOMERULAR FILTRATION RATE. ESTIMATED GFR IS NOT APPLICABLE FOR DIALYSIS PATIENTS. Specimen Blood Performing Organization Address [facility] [[email or web address] Phone Number [facility] [address] [place] [address] [phone] [place] Electrocardiogram, 12-lead (08/23/2017 3:05 PM CDT) Narrative Performed At Ventricular Rate 57 BPM [facility] Atrial Rate 57 BPM P-R Interval 212 ms QRS Duration 98 ms Q-T Interval 532 ms QTC Calculation(Bazett) 517 ms P Ararat 24 degrees R Ararat -19 degrees T Ararat 74 degrees Sinus bradycardia with 1st degree A-V block Prolonged QT Abnormal ECG No previous ECGs available Confirmed by Radha Liu Alireaz ([id number]) on 08/23/2017 10:07:57 PM Procedure Note Interface, External Ris In - 08/23/2017 10:08 PM CDT Ventricular Rate 57 BPM Atrial Rate 57 BPM P-R Interval 212 ms QRS Duration 98 ms Q-T Interval 532 ms QTC Calculation(Bazett) 517 ms P Ararat 24 degrees R Ararat -19 degrees T Ararat 74 degrees Sinus bradycardia with 1st degree A-V block Prolonged QT Abnormal ECG No previous ECGs available Confirmed by Radha Liu Alireaz ([id number]) on 08/23/2017 10:07:57 PM Performing Organization Address City/[facility] [[email or web address] Phone Number GE MUSE aPTT (08/23/2017 3:02 PM CDT) PTT 31.6 22.5 - 36.0 seconds [facility] Specimen Blood Performing Organization Address [facility] [[email or web address] Phone Number [facility] [address] [place] [address] [phone] CENTER Prothrombin time/INR (08/23/2017 3:02 PM CDT) Protime 14.8 (H) 11.7 - 14.7 seconds [facility] INR 1.2 <=5.9 [facility] Specimen Blood Narrative Performed At [facility] RECOMMENDED COUMADIN/WARFARIN INR THERAPY RANGES STANDARD DOSE: 2.0 - 3.0 Includes: PROPHYLAXIS for venous thrombosis, systemic embolization; TREATMENT for venous thrombosis and/or pulmonary embolus. HIGH RISK: Target INR is 2.5-3.5 for patients with mechanical heart valves. Performing Organization Address [facility] [[email or web address] Phone Number [facility] [address] [place] [address] [phone] CENTER after 03/18/2017 Insurance Payer Benefit Plan / Group Subscriber ID Type Phone Address MEDICARE MEDICARE A B xxxxxxxxxxx Medicare AETNA - MGD CARE AETNA INDEMNITY NON CONTR xxxxxxxxx Comm Advance Directives For more information, please contact:[address] [phone] Code Status Date Activated Date Inactivated Comments Full Code 01/28/2017 10:55 PM 01/29/2017 1:33 PM This code status was determined by: Patient
--- OUTSIDE RECORDS SUMMARY | 2018-03-19 12:40 | XMS REPORT | Continuity of Care Document ---
:1945 Author Organization Interface Problems Problem Status Onset Classification Date Comments Source Date Reported Urinary 05/27/19 06/01/2017 [place] obstruction [place] Hematuria 05/27/19 06/01/2017 [place] LUMBAR STENOSIS Active 08/20/[address] M54.16 - Active 07/21/19 OPID "RADICULOPATHY, [place] [facility] LUMBAR REGION" Stroke Resolved Problem 06/22/2017 PRECIOUS [place],[facility] Neuro Hematoma Resolved Problem 06/22/2017 [facility] (<span Active Problem 06/22/2017 [id number] [facility]">Confirmed</s terrence Neuro young>) Bladder cancer Resolved Problem 06/22/2017 PRECIOUS [facility]mentsM[facility] Neuro Stroke Resolved Problem 08/14/2016 PRECIOUS Clements, OPID [place] Hematoma [facility] [place] H[facility] (<span Active Problem 08/14/2016 OPID ID="[id number] Tyree 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>) [place] Bladder cancer Resolved Problem 08/14/2016 PRECIOUS Clements, OPID [place] Stroke Resolved Problem 09/27/2016 [facility] Hematoma Resolved Problem 09/27/2016 [facility] HBP (<span Active Problem 09/27/2016 OPID ID="[id number] [place] 9">Confirmed</s [place] young>) [facility] Bladder cancer Resolved Problem 09/27/2016 [facility] Stroke Resolved Problem 12/31/2016 PRECIOUS Clements [facility] Hematoma [facility]olved Problem [facility]/31[facility] H[facility] (<span Active Problem 12/31/2016 OPID ID="[id number] Tyree 9">Confirmed</s OPID [facility] young>) [facility] Bladder cancer Resolved Problem 12/31/2016 PRECIOUS Clements OPID [facility] Stroke Resolved Problem 06/01/2017 PRECIOUS Clements [place] Hematoma Resolved Problem 06/01/2017 PRECIOUS Clements [place] HBP (<span Active Problem 06/01/2017 OPID ID="[id number] [place] 9">Confirmed</s [place] young>) Bladder cancer Resolved Problem 06/01/2017 PRECIOUS Clements [place] Medications Medication Details Route Status Patient Ordering Order Source Instructions Provider Date Docusate Sodium 1 tab, Route: Inactive [place] 50 MG / PO, Drug Form: 2017 [facility] sennosides, SHELTER TAB, Dosing 8.6 MG Oral Weight 86.364, Tablet kg, BID, Start date: 05/29/17 17:00:00 CDT, Duration: 30 day, Stop date: 06/28/17 9:00:00 CDTNotes: (Same as Senokot-S) Equiv. to Rachelle-Colace. Docusate Sodium 1 tab, PO, BID, Active [place] 50 MG / X 14 day, # 28 2017 [facility] sennosides, SHELTER tab, 0 8.6 MG Oral Refill(s), Tablet Pharmacy: [facility] [id number] ciprofloxacin 500 500 mg=1 tab, Active [place] mg oral tablet PO, Q12H, X 7 2017, # 14 tab, 0 Refill(s), Pharmacy: [facility] [id number] Cipro 500 mg, 2 tab, Inactive [place] Route: PO, Drug 2017 [place] form: TAB, [id number], Dosing Weight 86.364, kg, Start date: 05/29/17 [...] No Longer [place] Oral Tablet Daily, 0 Active 2017 [place] [Plavix] Refill(s) Aspirin 81 mg, [...] Stop date: 06/26/17 2:04:00 CDTNotes: (Same as: [place] 325/5) Do not exceed 4gm/day of acetaminophen. [...] Route: Inactive [place] Normal Saline INTRAVESICULAR, 2017 [place] Drug Form: SOLN, Dosing Weight 89.545, kg, Continuous, Start date: 05/27/17 2:00:00 CDT, Duration: 30 day, Stop date: 06/26/17 1:59:00 CDTNotes: For irrigation only. Sodium Chloride 3,000 mL, Route: Inactive [place] 0.0769 MEQ/ML Intravesical, 2017 [facility] Irrigation Drug Form: SOLN, Solution Dosing Weight 89.545, kg, Continuous, Start date: 05/27/17 2:00:00 CDT, Duration: 30 day, Stop date: 06/26/17 1:59:00 CDTNotes: For irrigation only. Sodium Chloride 250 mL, Rate: To No Longer [place] 0.9% (titrate) prime line and Active 2017 [facility] 250 mL flush remaining blood products., Dosing Weight 89.545, kg, Route: IV, Total Volume: 250, Start Date: 05/27/17 1:25:00 CDT, Duration: 30 day, Stop date: 06/26/17 1:24:00 CDT, Replace Every: 24 hr Irrigation w/ 3,000 mL, Route: Inactive [place] Normal Saline Intravesical, 2017 [facility] Drug Form: SOLN, Dosing Weight 89.545, kg, ONCE, Start date: 05/27/17 0:58:00 CDT, Stop date: 05/27/17 0:58:00 CDTNotes: For irrigation only. Irrigation w/ 3,000 mL, Route: Inactive [place] Normal Saline INTRAVESICULAR, 2017 [facility] Drug Form: SOLN, Dosing Weight 89.545, [...] MG / Hydrocodone PO, Drug Form: 2017 [place] Bitartrate 5 MG TAB, Dosing Oral Tablet Weight 89.545, [Yale 5/325] kg, ONCE, STAT, Start date: 05/26/17 20:45:00 CDT, Stop date: 05/26/17 20:45:00 CDT Morphine 4 mg, Route: Inactive [place] IVP, ONCE, 2017 [facility] Dosing Weight 89.545, kg, Priority: STAT, Start date: 05/26/17 20:16:00 CDT, Stop date: 05/26/17 20:16:00 CDT Morphine 4 mg, Route: Inactive [place] IVP, ONCE, 2017 [facility] Dosing Weight 89.545, kg, Priority: STAT, Start date: 05/26/17 19:36:00 CDT, Stop date: 05/26/17 19:36:00 CDT diltiazem 360 mg, 1 cap, Inactive [place] Route: PO, Drug 2016 Medical form: ERCAP, Center ONCE, Dosing Weight 93.182, kg, Start date: 09/24/16 8:38:00 CDT, Stop date: 09/24/16 8:38:00 CDTNotes: DO NOT CRUSH. Lisinopril 40 mg, 2 tab, No Longer [place] Route: PO, Drug Active 2016 Medical form: TAB, Center Daily, Dosing Weight 93.182, kg, Start date: 09/23/16 9:00:00 CDT, Duration: 30 day, Stop date: 10/22/16 9:00:00 CDTNotes: (Same as: Prinivil, Zestril) Famotidine 20 MG 20 mg=1 tab, PO, Active [place] Oral Tablet BID, # 20 tab, 0 2016 Medical Refill(s) [place] magnesium citrate 8.725 fw=504 ml, No Longer [place] 58.2 MG/ML Oral PO, Daily, X 2 Active 2016 Medical Solution day, # 300 mL, 0 Center Refill(s) Acetaminophen 325 1 tab, PO, Q6H, Active [place] MG / Hydrocodone PRN for pain, X 2017 Medical Bitartrate 10 MG 14 day, # 90 Center Oral Tablet tab, 0 Refill(s) [[place]ale 10/325] Methocarbamol 500 500 mg=1 tab, Active [facility] MG Oral Tablet PO, Q8H, PRN 2017 Medical [Robaxin] Spasms, X 10 Center day, # 30 tab, 0 Refill(s) {21 See Active [place] (Methylprednisolo Instructions, 2017 Medical ne 4 MG Oral PO, Take by Center Tablet [Medrol]) mouth as } Pack [Medrol directed on Dosepak] label., # 1 Pack, 0 Refill(s) Flomax 0.4 mg, 1 cap, No Longer [place] Route: PO, Drug Active 2016 Medical form: CAP, Center Daily, Dosing Weight 93.182, kg, Start date: 09/23/16 1:28:00 CDT, Duration: 30 day, Stop date: 10/22/16 9:00:00 CDTNotes: (Same As: Flomax) "Do Not Crush" Cefazolin 2 gm, Route: IV, No Longer [place] Drug form: INJ, Active 2016 Medical [id number], Dosing Center Weight 93.182, kg, Start date: 09/22/16 22:00:00 CDT, Duration: 24 hr, Stop date: 09/23/16 14:00:00 CDT, ABX Indication: Surgical ProphylaxisNotes : (Same As: AncTessa landazol) Cefazolin FOR IV SET ONLY MEDICATION WASTE Product Size: 1000 mg Product Wasted: _0__ mg Saline Flush 0.9% 10 ml, Route: No Longer [place] IVP, Drug Form: Active 2016 Medical INJ, Dosing Center Weight 93.182, kg, Q12H, Start date: 09/22/16 21:00:00 CDT, Duration: 30 day, Stop date: 10/22/16 9:00:00 CDTNotes: (Same as: BD Posiflush) Dexamethasone 4 mg, 1 tab, No Longer [place] Route: PO, Drug Active 2016 Medical form: TAB, Q6H, Center Dosing Weight 93.182, kg, Start date: 09/22/16 18:00:00 CDT, Duration: 30 day, Stop date: 10/22/16 12:00:00 CDTNotes: Give with food. (Same As: Decadron) Famotidine 20 MG 20 mg, 1 tab, No Longer [place] Oral Tablet Route: PO, Drug Active 2016 Medical form: TAB, BID, Center Dosing Weight 93.182, kg, Start date: 09/22/16 17:00:00 CDT, Duration: 30 day, Stop date: 10/22/16 9:00:00 CDTNotes: (Same as: Pepcid) Docusate 50 mg, 1 cap, No Longer [place] Route: PO, Drug Active 2016 Medical form: CAP, BID, Center Dosing Weight 93.182, kg, Start date: 09/22/16 17:00:00 CDT, Duration: 30 day, Stop date: 10/22/16 9:00:00 CDT, Pediatric DosingNotes: (Same as: Colace) (Do Not Crush) sennosides, SHELTER 8.6 mg, 1 tab, No Longer [place] Route: PO, Drug Active 2016 Medical Form: TAB, Center Dosing Weight 93.182, kg, BID, Start date: 09/22/16 17:00:00 CDT, Duration: 30 day, Stop date: 10/22/16 9:00:00 CDTNotes: (Same as: Senokot) Clonidine 0.1 mg, 1 tab, No Longer [place] Hydrochloride 0.1 Route: PO, Drug Active 2016 Medical MG Oral Tablet form: TAB, BID, Center Dosing Weight 93.182, kg, Start date: 09/22/16 17:00:00 CDT, Duration: 30 day, Stop date: 10/22/16 9:00:00 CDTNotes: (Same As: Catapres) Ondansetron 4 mg, 2 mL, Inactive [facility] Route: IVP, Drug 2016 Medical form: INJ, ONCE, Center Dosing Weight 93.182, kg, PRN Nausea & Vomiting, Start date: 09/22/16 16:37:00 CDTNotes: (Same as: Zofran) MEDICATION WASTE Product Size: 4 mg Product Wasted: ___ mg Naloxone 0.4 mg, 1 mL, Inactive [facility] Route: IVP, Drug 2016 Medical form: INJ, Center Q2MIN, Dosing Weight 93.182, kg, PRN Narcotic Reversal, Start date: 09/22/16 16:37:00 CDT, Duration: 8 doses or times, Stop date: Limited # of timesNotes: Same as Narcan Flumazenil 0.2 mg, 2 mL, Inactive [facility] Route: IVP, Drug 2016 Medical form: INJ, PRN, Center Dosing Weight 93.182, kg, PRN Benzodiazepine Reversal, Initial dose, Start date: 09/22/16 16:37:00 CDT, Duration: 30 day, Stop date: 10/22/16 16:36:00 CDTNotes: (Same as: Romazicon) Hydralazine 10 mg, 0.5 mL, Inactive [facility] Route: IVP, Drug 2016 Medical form: INJ, Center Q20Min, Dosing Weight 93.182, kg, PRN Elevated BP, Start date: 09/22/16 16:37:00 CDT, Duration: 2 doses or times, Stop date: Limited # of timesNotes: (Same as: Apresoline) Push over 5 minutes Hydromorphone 0.5 mg, 0.25 mL, Inactive [facility] Route: IVP, Drug 2016 Medical form: INJ, Center Q5Min, Dosing Weight 93.182, kg, PRN Pain Score 7-10, Start date: 09/22/16 16:37:00 CDT, Duration: 4 doses or times, Stop date: Limited # of timesNotes: Same as: Dilaudid Oxycodone 5 mg, 1 tab, Inactive [facility] Route: PO, Drug 2016 Medical form: TAB, Q4H, Center Dosing Weight 93.182, kg, PRN Pain Score 4-6, Start date: 09/22/16 16:37:00 CDT, Duration: 30 day, Stop date: 10/22/16 16:36:00 CDTNotes: (Same as: Roxicodone) Saline Flush 0.9% 10 ml, Route: No Longer [place] IVP, Drug Form: Active 2017 Medical INJ, Dosing Center Weight 93.182, kg, PRN, PRN Line Flush, Start date: 09/22/16 16:11:00 CDT, Duration: 30 day, Stop date: 10/22/16 16:10:00 CDTNotes: (Same as: BD Posiflush) Robaxin 500 mg, 1 tab, No Longer [place] Route: PO, Drug Active 2016 Medical form: TAB, TID, Center Dosing Weight 93.182, kg, PRN Spasm, Start date: 09/22/16 16:11:00 CDT, Duration: 30 day, Stop date: 10/22/16 16:10:00 CDTNotes: (Same as:Robaxin) Hydralazine 20 mg, 1 mL, No Longer [facility] Route: IVP, Drug Active 2016 Medical form: INJ, Q4H, Center Dosing Weight 93.182, kg, PRN Hypertension, Start date: 09/22/16 16:11:00 CDT, Duration: 30 day, Stop date: 10/22/16 16:10:00 CDTNotes: (Same as: Apresoline) Push over 5 minutes Labetalol 10 mg, 2 mL, No Longer [facility] Route: IVP, Drug Active 2016 Medical form: INJ, Center Q15Min, Dosing Weight 93.182, kg, PRN Hypertension, Start date: 09/22/16 16:11:00 CDT, Duration: 30 day, Stop date: 10/22/16 16:10:00 CDT Ondansetron 4 mg, 2 mL, No Longer [place] Route: IVP, Drug Active 2016 Medical form: INJ, Q6H, Center Dosing Weight 93.182, kg, PRN Nausea & Vomiting, Start date: 09/22/16 16:11:00 CDT, Duration: 30 day, Stop date: 10/22/16 16:10:00 CDT, >/=4 years, Pediatric DosingNotes: (Same as: Kt) MEDICATION WASTE Product Size: 4 mg Product Wasted: ___ mg Acetaminophen 325 1 tab, Route: No Longer [place] MG / Hydrocodone PO, Drug Form: Active 2017 Medical Bitartrate 10 MG TAB, Dosing Center Oral Tablet Weight 93.182, [[place] 10/325] kg, Q4H, PRN Pain Score 1-3, Start date: 09/22/16 16:11:00 CDT, Duration: 30 day, Stop date: 10/22/16 16:10:00 CDTNotes: Do not exceed 4gm/day of acetaminophen. (Same as: [place] 325/10) Dilaudid 0.5 mg, 0.25 mL, No Longer [place] Route: IVP, Drug Active 2016 Medical form: INJ, Q3H, Center Dosing Weight 93.182, kg, PRN Pain Score 7-10, Start date: 09/22/16 16:11:00 CDT, Duration: 30 day, Stop date: 10/22/16 16:10:00 CDTNotes: Same as: Dilaudid Bisacodyl 10 mg, 1 supp, No Longer [place] Route: MT, Drug Active 2016 Medical form: SUPP, Center Daily, Dosing Weight 93.182, kg, PRN Constipation, Start date: 09/22/16 16:11:00 CDT, Duration: 30 day, Stop date: 10/22/16 16:10:00 CDTNotes: (Same As: Dulcolax, Bisco-Lax) phenol 1 spray, Route: No Longer [place] TOP, Daily, Drug Active 2016 Medical form: SPRY, PRN Center Sore Throat, Start date: 09/22/16 16:11:00 CDT, Duration: 30 day, Stop date: 10/22/16 16:10:00 CDTNotes: Chloraseptic [place] (Same as: Chloraseptic, Sore Throat [place]) WASTE: F/P - Black; E - [employer] Melatonin 3 MG 3 mg, 1 tab, No Longer [place] Extended Release Route: PO, Drug Active 2016 Medical Tablet Form: TAB, Center Dosing Weight 93.182, kg, Bedtime, PRN as needed for insomnia, Start date: 09/22/16 16:11:00 CDT, Duration: 30 day, Stop date: 10/22/16 16:10:00 CDTNotes: (Same as: Melatonin) Benadryl 25 mg, 1 cap, No Longer [place] Route: PO, Drug Active 2016 Medical form: CAP, TID, Center Dosing Weight 93.182, kg, PRN Itching, Start date: 09/22/16 16:11:00 CDT, Duration: 30 day, Stop date: 10/22/16 16:10:00 CDTNotes: (Same as: Benadryl) ceFAZolin 2 gm, 100 mL, No Longer [place] Route: IVPB, Active 2016 Medical Drug form: [...] 32.2 g/dL 32.0 - 05/29 [place] 36.0 [facility] HEMATOLOGY MPV 8.6 fL 7.4 - 10.4 05/29 [place] [facility] HEMATOLOGY Platelet 222 K/CMM 133 - 450 05/29 [place] [facility] HEMATOLOGY RDW 16.8 % 11.5 - 05/29 [place] 14.5 [facility] HEMATOLOGY Hgb 11.3 g/dL 14.0 - 05/29 [place] 18.0 [facility] HEMATOLOGY RBC 4.00 M/CMM 4.70 - 05/29 [place] 6.10 [facility] HEMATOLOGY WBC 51.5 K/CMM 3.7 - 10.4 05/29 Result [place] Comment: [facility] Critical Result(s) called to Zoran Ortiz [...] 39.7 K/CMM 1.0 - 5.5 05/29 [place] HEMATOLOGY Eosinophils 1.0 % [...] Atypical 2.0 % <=0.0 % 05/28 [place] HEMATOLOGY Hypochrom 1+ None Seen 05/28 [place] (05/28/17 5:41 AM) HEMATOLOGY Smudge Moderate None Seen 05/28 [place] *ABN* (05/28/17 5:41 AM) HEMATOLOGY Anisocyte 1+ None Seen 05/28 [place] *ABN* (05/28/17 5:41 AM) HEMATOLOGY Microcyte 1+ None Seen 05/28 [place] *ABN* (05/28/17 5:41 AM) HEMATOLOGY Lymphocytes 42.8 K/CMM 1.0 - 5.5 05/28 [place] HEMATOLOGY Segs 13.0 % 45.0 - 0422 [place] 75.0 /2017 [facility] HEMATOLOGY Eosinophils 0.5 K/CMM 0.0 - 0.5 05/28 [place] # /2017 [facility] HEMATOLOGY Lymphocytes 82.0 % 20.0 - 05/28 [place] 40.0 [facility] HEMATOLOGY Bands 0.0 % 0.0 - 11.0 05/28 [facility] HEMATOLOGY Segs-Bands # 6.6 K/CMM 1.5 - 8.1 05/28 [facility] HEMATOLOGY Monocytes # 1.0 K/CMM 0.0 - 0.8 05/28 [facility] HEMATOLOGY Platelet 225 K/CMM 133 - 450 05/28 [facility] HEMATOLOGY RDW 16.4 % 11.5 - 05/28 [place] 14.5 [facility] HEMATOLOGY MCH 27.8 pg 27.0 - 05/28 [place] 31.0 [facility] HEMATOLOGY MCHC 32.2 g/dL 32.0 - 05/28 [place] 36.0 [facility] HEMATOLOGY MCV 86.2 fL 80.0 - 05/28 [place] 94.0 [facility] HEMATOLOGY Hct 35.5 % 42.0 - 05/28 [place] 54.0 [facility] HEMATOLOGY MPV 8.2 fL 7.4 - 10.4 05/28 [facility] HEMATOLOGY Hgb 11.4 g/dL 14.0 - 05/28 [place] 18.0 [facility] HEMATOLOGY RBC 4.13 M/CMM 4.70 - 05/28 [place] 6.10 [facility] HEMATOLOGY WBC 51.0 K/CMM 3.7 - 10.4 05/28 Result Comment: [facility] Critical Result(s) called to HANDY Garcia at 05/28/2017 05:59 by 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 Read back OK. Bladder US Bladder US Bladder Ultrasound 05/27 - - [facility] History: Hematuria - looking for blood [...] 4.31 M/CMM 4.70 - 05/27 [place] 6.10 [facility] Bladder US Bladder US EXAM: 05/27 - - [facility] Urinary bladder ultrasound. Read by: Geovanni [...] BANK ABO/Rh A POS 05/27 [place] RESULTS [facility] BLOOD BANK Antibody Negative 05/27 [place] RESULTS Scrn [facility] (05/27/17 1:34 AM) BLOOD BANK Platelet Product available 05/27 [place] RESULTS product [facility] (05/27/17 1:25 AM) CHEM PANEL eGFR 49 05/27 Result Comment: The eGFR is calculated using the CKD-EPI formula. In most young, healthy individuals the eGFR will be >90 mL/ min/1.73m2. The eGFR declines with age. An eGFR of 60-89 may be normal in [facility] mL/min/1. some populations, particularly the elderly, for [...] 141 meq/L 135 - 145 05/27 [place] [facility] CHEM PANEL Potassium 3.5 meq/L 3.5 - 5.1 05/27 [place] Lvl /2017 [facility] CHEM PANEL Chloride Lvl 107 meq/L 95 - 109 05/27 [facility] CHEM PANEL CO2 25 meq/L 24 - 32 05/27 [facility] CHEM PANEL Calcium Lvl 9.1 mg/dL 8.5 - 10.5 05/27 [facility] CHEM PANEL Glucose Lvl 150 mg/dL 70 - 99 05/27 [place] CHEM PANEL BUN 25 mg/dL 7 - 22 05/27 [facility] CHEM PANEL Creatinine 1.41 mg/dL 0.50 - 05/27 [place] Lvl 1.40 [facility] CHEM PANEL AGAP 12.5 meq/L 10.0 - 05/27 [place] 20.0 /2017 [facility] HEMATOLOGY Bands 0.0 % 0.0 - 11.0 05/27 [facility] HEMATOLOGY RBC Morph Normal 05/27 [facility] (05/26/17 11:22 PM) HEMATOLOGY Atypical 0.0 % <=0.0 % 05/27 [facility] Lymphs [facility] HEMATOLOGY Smudge Few 05/27 [facility] HEMATOLOGY Large Plt Slight 05/27 [facility] HEMATOLOGY Tot Cell Ct 100 05/27 [facility] HEMATOLOGY Plt Morph Normal 05/27 [facility] (05/26/17 11:22 PM) HEMATOLOGY INR 1.13 0.85 - 05/27 [place] 1.17 [facility] HEMATOLOGY PT 14.5 s 12.0 - 05/27 [place] 14.7 [facility] HEMATOLOGY PTT 33.1 s 22.9 - 05/27 [place] 35.8 [facility] Brain wo Brain wo EXAM: Brain [...] BRAIN: -- Two subcentimeter ovoid foci of [id number] restricted diffusion, consistent with acute lacunar infarcts, [...] an outpatient basis. On 12/28/2016 4:30 PM [facility], a call was placed to to notify the referring clinician's office that this exam has important findings dimitri pacheco requiring urgent follow-up and to direct their attention to the report for details. There was no response after several attempts, and no voicemail option was available. Several unsuccessful atte mpts were subsequently made to reach the patient at the provided number of [phone]. 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 SL: [id number] CHEM PANEL eGFR 54 09/19 Result Comment: The eGFR is calculated using the CKD-EPI formula. In most young, healthy individuals the eGFR will be >90 mL/ min/1.73m2. The eGFR declines with age. An eGFR of 60-89 may be normal in [facility] mL/min/1.7 some populations, particularly the elderly, for whom the CKD-EPI formula has not been extensively validated. Use of the eGFR is not recommended in the following populations: [place] [address] Center Individuals with unstable creatinine concentrations, including [...] AGAP 15.8 meq/L 10.0 - 09/19 Result [facility] 20.0 Comment: [facility] Center date/time has been modified to: 15:35:00. Previous collection date/time: 16:41:00. CHEM PANEL Calcium Lvl 9.9 mg/dL 8.5 - 10.5 09/19 Result [facility] Comment: [facility] Collection Center date/time has been modified to: 15:35:00. Previous collection date/time: 16:41:00. CHEM PANEL CO2 27 meq/L 24 - 32 09/19 Result Comment: [facility] date/time has been modified to: 15:35:00. Previous collection date/time: 16:41:00. CHEM PANEL Chloride Lvl 105 meq/L 95 - 109 09/19 Result [facility] Comment: [facility] Center date/time has been modified to: 15:35:00. Previous collection date/time: 16:41:00. CHEM PANEL Glucose Lvl 91 mg/dL 70 - 99 09/19 Result [facility] Comment: [facility] Collection Center date/time has been modified to: 15:35:00. Previous collection date/time: 16:41:00. CHEM PANEL BUN 18 mg/dL 7 - 22 09/19 Result [facility] Comment: [facility] Center date/time has been modified to: 15:35:00. Previous collection date/time: 16:41:00. CHEM PANEL Sodium Lvl 144 meq/L 135 - 145 09/19 Result Comment: [facility] date/time has been modified to: 15:35:00. Previous collection date/time: 16:41:00. CHEM PANEL Creatinine 1.31 mg/dL 0.50 - 09/19 Result [facility] Lvl 1.40 Comment: Medical Collection Center date/time has been modified to: 15:35:00. Previous collection date/time: 16:41:00. CHEM PANEL Potassium 3.8 meq/L 3.5 - 5.1 09/[address] [facility] Comment: Medical Collection Center date/time has been modified to: 15:35:00. Previous collection date/time: 16:41:00. Spine Spine Patient Name: IDANIA TERRY 08/11 - [facility] Thoracic wo Thoracic - [place] contrast contrast MRI : 1945; Age: 71 years y/o Male MRI MR: [id number] Read by: Brett Valente MD Dictated Date/time: [...] canal stenosis or neural foraminal narrowing. SL: [id number] Spine Spine Study: Spine cervical wo contrast MRI 08/11 - OP[facility] cervical wo cervical - [place] contrast contrast MRI MRI Clinical Indication: G95.9 [...] body of the cervical spinal cord. SL: [id number] Spine Spine lumbar EXAM: XR LUMBAR SPINE 3 VIEWS 07/20 - [facility] lumbar flex/ext - [place] [facility] flex/ext 2 view DX view DX DATE: [...] Date Comments Source Heart Rate 63 05/29/2017 [place] Temperature Oral (F) 97.8 F 05/29/2017 [place] Respitory Rate 18 05/29/2017 [place] Systolic (mm Hg) 145 05/29/2017 [place] Diastolic (mm Hg) 83 05/29/2017 [place] Respitory Rate 18 05/29/2017 [place] Heart Rate 64 05/29/2017 [place] Temperature Oral (F) 97.4 F 05/29/2017 [facility] [place] Systolic (mm Hg) 156 05/29/2017 [place] Diastolic (mm Hg) 86 05/29/2017 [place] Respitory Rate 18 05/29/2017 [place] Temperature Oral (F) 98 F 05/29/2017 [place] Heart Rate 59 05/29/2017 [place] Systolic (mm Hg) 158 05/29/2017 [place] Diastolic (mm Hg) 69 05/29/2017 [place] BMI Calculated 27.32 05/27/2017 [place] Height 177.8 cm 05/27/2017 [place] Weight 86.364 05/27/2017 [place] Weight 89.545 05/27/2017 [place] Weight 90.909 12/28/2016 [facility] BMI Calculated 28.76 12/28/2016 [facility] Height 177.8 cm 12/28/2016 [facility] Heart Rate 74 12/28/2016 [facility] Systolic (mm Hg) 163 12/28/2016 [facility] Diastolic (mm Hg) 82 12/28/2016 [facility] Temperature Oral (F) 97.8 F 12/28/2016 [facility] Heart Rate 89 09/24/2016 [facility] Temperature Oral (F) 97.5 F 09/24/2016 [facility] Respitory Rate 18 09/24/2016 [facility] Systolic (mm Hg) 176 09/24/2016 [facility] Diastolic (mm Hg) 83 09/24/2016 [facility] Heart Rate 84 09/24/2016 [facility] Systolic (mm Hg) 143 09/24/2016 [facility] Diastolic (mm Hg) 73 09/24/2016 [facility] Respitory Rate 17 09/24/2016 [facility] Temperature Oral (F) 98.5 F 09/24/2016 [facility] Temperature Oral (F) 98.1 F 09/24/2016 [facility] Systolic (mm Hg) 146 09/24/2016 [facility] Diastolic (mm Hg) 79 09/24/2016 [facility] Respitory Rate 18 09/24/2016 [facility] Heart Rate 70 09/24/2016 [facility] BMI Calculated 29.48 09/22/2016 [facility] Weight 93.182 09/22/2016 [facility] Height 177.8 cm 09/22/2016 [facility] Weight 90.455 09/19/2016 [facility] BMI Calculated 28.61 09/19/2016 [facility] Height 177.8 cm 09/19/2016 [facility] Encounters Location Location Encounter Encounter Reason Attending ADM DC Status Source Details Type Number For Provider Date Date Visit Outpatient [id number] TJ ALICIA 07/20 [facility] Outpt Diag [id number] Tj Alicia 07/20 07/21 [facility] Outpt Diag [id number] Tj Alicia 08/11 08/12 [facility] [place] [facility] [id number] TJ ALICIA 08/17 [facility] [id number] TJ ALICIA 09/19 [facility] Outpatient [id number] TJ ALICIA 09/19 [facility] Outpatient [id number] TJ ALICIA 09/22 [facility] [id number] Tj Alicia 09/22 09/24 [facility] Outpatient [id number] ISRAEL 10/07 [facility] Outpatient [id number] TJ ALICIA 11/14 [facility] Phone [id number] 12/23 12/25 [facility] Message Neuro [facility] Phone [id number] 12/26 12/28 [facility] Message Neuro Outpatient [id number] TJ ALICIA 12/28 [facility] Outpatient [id number] Javi 12/28 12/29 [facility] 8 [facility] Outpt Diag [id number] Rufina 12/28 12/29 [facility] Phone [id number] 01/02 01/04 [facility] Message Neuro [facility] Phone [id number] 01/03 01/05 [facility] Message Neuro [facility] Phone [phone] 01/16 01/18 [facility] Message Neuro Outpatient [id number] TJ ALICIA 02/13 [facility] Ambulatory [id number] Javi 02/13 02/13 [facility] Pre-Reg 7 Aayush Neuro [facility] Spine Phone [phone] 03/15 03/17 [facility] Message Neuro [facility] [id number] Chata 05/27 05/29 [facility] [address] [place] Procedures Procedure Code Date Perfomer Comments Source Bladder 71631 05/29/2017 [place] irrigation, simple, lavage and/or instillation Bladder 08619 05/28/2017 [place] irrigation, simple, lavage and/or instillation Bladder 33820 05/27/2017 [place] irrigation, simple, lavage and/or instillation Bladder operation [id number] [facility] [id number] [facility] Lymph node [id number] [facility] Bladder operation [id number] [facility] Drain[facility] [id number] [facility] Lymph node [id number] [facility] Bladder operation [id number] [facility] [place] [facility] [id number] [facility] [place] Lymph node [id number] [facility] [place] Bladder operation [id number] [facility] Drainage [id number] [facility] Lymph node [id number] [facility] Bladder operation [id number] [facility] Drain[facility] [id number] [facility] Lymph node [id number] [facility] Bladder operation [id number] [place] Drainage [id number] [place] Lymph node [id number] [place] operation
--- OUTSIDE RECORDS SUMMARY | 2018-03-19 12:42 | XMS REPORT ---
:1945 [facility] Address [address] [place] [address] Dr. Hernández [address] [place] [id number] Care Team Providers Name Role Phone YARELI GARCIA Unavailable Unavailable WILL FROST Unavailable Unavailable Problems This patient has no known problems. Allergies, Adverse Reactions, Alerts This patient has no known allergies or adverse reactions. Medications This patient has no known medications. Results Test Description Test Time Test Comments Text Results Atomic Results Result Comments TISSUE EXAM 2018-02-20 14:55:00 Surgical Pathology Report Case: [id number] Authorizing Provider: Yareli Garcia MD Collected: 02/16/2018 1004 Ordering Location: [facility] Received: 02/16/2018 1117 SERVICES Pathologist: Nicolas Diaz MD Specimens: A) - Bladder Tumor, low posterior wall tumor B) - Bladder Tumor, right bladder wall tumor C) - Bladder Tumor, bladder dome A. URINARY BLADDER, LOW POSTERIOR WALL, BIOPSY: - MARKED CHRONIC INFLAMMATION WITH REACTIVE UROTHELIAL CHANGES - NEGATIVE FOR DYSPLASIA OR MALIGNANCY B. 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 URINARY BLADDER, DOME, TURBT: - PAPILLARY UROTHELIAL CARCINOMA, LOW-GRADE (WHO GRADE 2), NONINVASIVE - MUSCULARIS PROPRIA IS NOT PRESENT - MARKED CHRONIC INFLAMMATION Signing Pathologist Direct Phone Line: [phone] signed by Nicolas Diaz MD on 02/20/2018 at 2:55 [id number], [id number] X 2Malignant neoplasm of urinary bladder A. Low posterior wall tumor. B. Right bladder wall tumor. C. Bladder domeSpecimen is received in three containers of formalin all labeled with the patient's information. Specimen A: Labeled "low posterior wall bladder [...] 0.6 cm, submitted entirely in C1. CG/ew A-C. Performed. URINE CULTURE 2018-02-14 19:34:00 Test Item Value Reference Range Comments CULTURE (BEAKER) (test ENTEROCOCCUS FAECALIS >100,000 col/mL Enterococcus etvy=0830) faecalis Ampicillin (test code=26) Linezolid (test code=40) Nitrofurantoin (test code=23) Tetracycline (test code=2) Vancomycin (test code=13) 50-59,000 col/mL skin floraURINALYSIS W/ [id number] 18:16:00 Test Item Value Reference Range Comments COLOR (BEAKER) (test zlvf=099) Light Yellow CLARITY (BEAKER) (test knqz=670) Clear SPECIFIC GRAVITY UA (BEAKER) (test vcbl=075) 1.012 1.001-1.035 PH UA (BEAKER) (test bnyv=954) 6.5 5.0-8.0 PROTEIN UA (BEAKER) (test nyuq=330) 50 mg/dL Negative GLUCOSE UA (BEAKER) (test mhxq=196) Negative Negative KETONES UA (BEAKER) (test pjlv=484) Negative Negative BILIRUBIN UA (BEAKER) (test byon=852) Negative Negative BLOOD UA (BEAKER) (test zvbq=526) Trace Negative NITRITE UA (BEAKER) (test gnkf=643) Negative Negative LEUKOCYTE ESTERASE UA (BEAKER) (test rypb=914) Large Negative UROBILINOGEN UA (BEAKER) (test hglm=536) 0.2 mg/dL 0.2-1.0 RBC UA (BEAKER) (test rebv=166) 1 /HPF WBC UA (BEAKER) (test nuhj=405) 60 /HPF BACTERIA (BEAKER) (test qhno=310) Few MUCUS (BEAKER) (test gukk=8361) Rare SQUAMOUS EPITHELIAL (BEAKER) (test aurv=453) < /HPF HYALINE CASTS (BEAKER) (test ptfv=038) 1 /LPF CRYSTALS, URINE (BEAKER) (test rnig=0817) Occasional YEAST (BEAKER) (test cbok=5316) Occasional SOURCE(BEAKER) (test bptw=4718) CBC W/PLT COUNT & AUTO [id number] 17:52:00 Test Item Value Reference Range Comments WHITE BLOOD CELL COUNT (BEAKER) (test rbup=385) 87.0 K/ L 3.5-10.5 RED BLOOD CELL COUNT (BEAKER) (test ibnv=752) 4.39 M/ L 4.63-6.08 HEMOGLOBIN (BEAKER) (test qwji=701) 12.4 GM/DL 13.7-17.5 HEMATOCRIT (BEAKER) (test odig=883) 39.1 % 40.1-51.0 MEAN CORPUSCULAR VOLUME (BEAKER) (test hlae=575) 89.1 fL 79.0-92.2 MEAN CORPUSCULAR HEMOGLOBIN (BEAKER) (test 28.2 pg 25.7-32.2 lbml=322) MEAN CORPUSCULAR HEMOGLOBIN CONC (BEAKER) (test 31.7 GM/DL 32.3-36.5 vtrd=406) RED CELL DISTRIBUTION WIDTH (BEAKER) (test 14.9 % 11.6-14.4 ooeo=237) PLATELET COUNT (BEAKER) (test oykg=005) 226 K/CU MM 150-450 MEAN PLATELET VOLUME (BEAKER) (test rnzr=315) 10.4 fL 9.4-12.4 NUCLEATED RED BLOOD CELLS (BEAKER) (test 0 /100 WBC 0-0 yuzs=776) (CELLAVISION MANUAL DIFF)2018-02-12 17:52:00 Test Item Value Reference Range Comments NEUTROPHILS - REL (CELLAVISION)(BEAKER) (test 9 % ojpl=4924) LYMPHOCYTES - REL (CELLAVISION)(BEAKER) (test 81 % wiur=6775) EOSINOPHILS - REL (CELLAVISION)(BEAKER) (test 2 % wmly=0325) ATYPICAL LYMPHOCYTES - REL (CELLAVISION)(BEAKER) 8 % 0-0 (test msej=6054) NEUTROPHILS - ABS (CELLAVISION)(BEAKER) (test 7.83 K/ul 1.78-5.38 sukh=4867) LYMPHOCYTES - ABS (CELLAVISION)(BEAKER) (test 70.47 K/ul 1.32-3.57 zlaw=8415) EOSINOPHILS - ABS (CELLAVISION)(BEAKER) (test 1.74 K/uL 0.04-0.54 elka=5566) ATYPICAL LYMPHOCYTES - ABS (CELLAVISION)(BEAKER) 6.96 K/uL 0.00-0.00 (test trnk=7519) TOTAL COUNTED (BEAKER) (test yorg=8374) 100 PLT MORPHOLOGY (BEAKER) (test jwdo=860) Normal SMUDGE CELLS (BEAKER) (test xdpj=7189) Present ANISOCYTOSIS (BEAKER) (test geur=960) 3+ many MICROCYTES (BEAKER) (test hryu=539) 3+ many POIKILOCYTES (BEAKER) (test sdke=600) 1+ few ELLIPTOCYTES (BEAKER) (test pgax=709) 1+ few ARTIFACT (CELLAVISION)(BEAKER) (test egvx=1710) Present PLATELET CONCENTRATION (CELLAVISION)(BEAKER) Adequate (test uzrk=9972) Received comment: User comments: Slide comments:BASIC METABOLIC [id number] 17:40:00 Test Item Value Reference Range Comments SODIUM (BEAKER) (test 140 meq/L 136-145 ihax=971) POTASSIUM (BEAKER) (test 3.9 meq/L 3.5-5.1 qtvm=939) CHLORIDE (BEAKER) (test 103 meq/L 98-107 nsyo=315) CO2 (BEAKER) (test 26 meq/L 22-29 oxwz=213) BLOOD UREA NITROGEN 24 mg/dL 7-21 (BEAKER) (test dyxy=832) CREATININE (BEAKER) (test 1.45 mg/dL 0.57-1.25 fsap=316) GLUCOSE RANDOM (BEAKER) 110 mg/dL 70-105 (test ypyr=288) CALCIUM (BEAKER) (test 9.6 mg/dL 8.4-10.2 ynfy=970) EGFR (BEAKER) (test 48 mL/min/1.73 sq m ESTIMATED GFR IS NOT pavc=0946) ACCURATE CREATININE CLEARANCE IN PREDICTING GLOMERULAR FILTRATION RATE. ESTIMATED GFR IS NOT APPLICABLE FOR DIALYSIS PATIENTS. RAD, CHEST, 2 [id number] 16:22:00Reason for exam:->pre-op testingShould this be performed at the bedside?->NoFINAL REPORT Chest, PA and lateral. History: Preoperative. Comparison: 08/24/2017. Discussion : Cardiomegaly and thoracic aortic ectasia. The lungs are clear without evidence of consolidation or effusion. There are no acute osseous abnormalities. The soft tissues are unremarkable. IMPRESSION: No acute cardiopulmonary abnormality. Signed: Castillo Armas MDReport Verified Date/Time : 02/12/2018 16:22:15 Reading Location: [address] Radiology Reading Room TISSUE [id number] 17:10:00Surgical Pathology Report Case: [id number] Authorizing Provider: Yareli Garcia MD Collected: 08/25/2017 [...] CARCINOMA, LOW-GRADE (WHO GRADE 1), NONINVASIVE - MUSCULARISPROPRIA IS NOT PRESENTB. URINARY BLADDER , LEFT NECK, TURBT: - PAPILLARY UROTHELIAL CARCINOMA, LOW-GRADE (WHO GRADE 2), SUPERFICIALLY INVASIVE INTO LAMINA PROPRIA - MUSCULARIS PROPRIA IS NOT INVOLVED BYCARCINOMA - NEGATIVE FOR LYMPH-VASCULAR INVASIONC. URINARY BLADDER, RIGHT LATERAL WALL, TURBT: - PAPILLARY UROTHELIAL CARCINOMA, LOW-GRADE (WHO GRADE 2), NONINVASIVE - MUSCULARIS PROPRIA IS NOT INVOLVED BY CARCINOMAD. URINARY BLADDER , DOME, TURBT: - PAPILLARY UROTHELIAL CARCINOMA, LOW-GRADE (WHO GRADE2), NONINVASIVE - MUSCULARIS PROPRIA IS NOT PRESENT Signing Pathologist Direct Phone Line: [phone] signed by Nicolas Diaz MD on 08/28/2017 at 5:10 PMThe focus of invasion on specimen B. Is into the lamina propria of one papillary stalk and consists of on 3-4 tiny cell clusters. A. 61389A. 41223N. 74916T. 89345Fpjsuiemk neoplasm of urinary bladder A. Bladder tumor en bloc resection of right lateral wall tumor; B. TUR papillary tumor inside left bladder neck; C. Right lateral wall bladder tumor; D. Papillary tumor domeThe specimen is received in four containers offormalin all labeled with the patient's information. Part A labeled "en bloc resection of right lateral wall tumor" consists of two fragments of lyles-pink soft tissue measuring 0.4 and 0.5 cm, submittedA1. Part B labeled "TUR papillary tumor inside left bladder neck" consists of three fragments of lyles-pink soft tissue ranging from 0.4 to 0.6 cm, submitted B1. Part C labeled "right lateral wall bladder tumor" consists of multiple fragments of lyles-pink soft tissue ranging from 0.1 to 1 cm , submitted C1. Part D labeled "papillary tumor dome of bladder" consists of multiple fragments of lyles-pink soft tissue, ranging from 0.1 to 0.4 cm. Submitted D1. CG/pl PerformedURINE [id number] 16:00:00 Test Item Value Reference Range Comments CULTURE (BEAKER) (test 50-59,000 col/mL skin eunice oxfb=8258) (CELLAVISION MANUAL DIFF)2017-08-23 20:07:00 Test Item Value Reference Range Comments NEUTROPHILS - REL (CELLAVISION)(BEAKER) (test 23 % korw=7655) LYMPHOCYTES - REL (CELLAVISION)(BEAKER) (test 66 % xsyz=5725) MONOCYTES - REL (CELLAVISION)(BEAKER) (test 2 % ikpv=3191) EOSINOPHILS - REL (CELLAVISION)(BEAKER) (test 1 % iknp=2361) BASOPHILS - REL (CELLAVISION)(BEAKER) (test 1 % aekm=9101) ATYPICAL LYMPHOCYTES - REL (CELLAVISION)(BEAKER) 6 % 0-0 (test zkjl=9130) NEUTROPHILS - ABS (CELLAVISION)(BEAKER) (test 16.58 K/ul 1.78-5.38 lsac=0290) LYMPHOCYTES - ABS (CELLAVISION)(BEAKER) (test 47.59 K/ul 1.32-3.57 bvjx=5445) MONOCYTES - ABS (CELLAVISION)(BEAKER) (test 1.44 K/uL 0.30-0.82 wfew=0342) EOSINOPHILS - ABS (CELLAVISION)(BEAKER) (test 0.72 K/uL 0.04-0.54 bauk=0097) BASOPHILS - ABS (CELLAVISION)(BEAKER) (test 0.72 K/uL 0.01-0.08 mtss=3461) ATYPICAL LYMPHOCYTES - ABS (CELLAVISION)(BEAKER) 4.33 K/uL 0.00-0.00 (test qthp=3427) TOTAL COUNTED (BEAKER) (test kffx=4205) 100 PLT MORPHOLOGY (BEAKER) (test nhcz=009) Normal SMUDGE CELLS (BEAKER) (test wulm=4309) Present POLYCHROMATOPHILLIC RBCS(BEAKER) (test xoax=420) 1+ few HYPOCHROMIA (BEAKER) (test ueel=291) 1+ few ANISOCYTOSIS (BEAKER) (test djrq=323) 2+ moderate MICROCYTES (BEAKER) (test eepc=312) 2+ moderate POIKILOCYTES (BEAKER) (test bsum=835) 1+ few ARTIFACT (CELLAVISION)(BEAKER) (test jmvr=3543) Present PLATELET CONCENTRATION (CELLAVISION)(BEAKER) Adequate (test czez=4545) Received comment: User comments: Slide comments:CBC W/PLT COUNT & AUTO [id number] 20:06:00 Test Item Value Reference Range Comments WHITE BLOOD CELL COUNT (BEAKER) (test uxjk=146) 72.1 K/ L 3.5-10.5 RED BLOOD CELL COUNT (BEAKER) (test nccb=390) 4.97 M/ L 4.63-6.08 HEMOGLOBIN (BEAKER) (test osoq=549) 13.1 GM/DL 13.7-17.5 HEMATOCRIT (BEAKER) (test ieou=219) 42.1 % 40.1-51.0 MEAN CORPUSCULAR VOLUME (BEAKER) (test vmma=980) 84.7 fL 79.0-92.2 MEAN CORPUSCULAR HEMOGLOBIN (BEAKER) (test 26.4 pg 25.7-32.2 vite=706) MEAN CORPUSCULAR HEMOGLOBIN CONC (BEAKER) (test 31.1 GM/DL 32.3-36.5 fqtz=783) RED CELL DISTRIBUTION WIDTH (BEAKER) (test 14.5 % 11.6-14.4 hepr=554) PLATELET COUNT (BEAKER) (test shzf=729) 247 K/CU MM 150-450 MEAN PLATELET VOLUME (BEAKER) (test rcas=829) 10.6 fL 9.4-12.4 NUCLEATED RED BLOOD CELLS (BEAKER) (test 0 /100 WBC 0-0 qmrx=713) RAD, CHEST, 2 [id number] 16:22:00Reason for Exam:->bladder cancer, pre- op testingFINAL [...] no acute cardiopulmonary abnormality. Signed: Brett Valente MDReport Verified Date/Time: 08/23/2017 16:22:14 Reading Location: [address] Reading Room Electronically signed by: BRETT VALENTE MD on 04:22 [facility] [id number] 16:10:00 Test Item Value Reference Range Comments SODIUM (BEAKER) (test 140 meq/L 136-145 ykli=277) POTASSIUM (BEAKER) (test 3.9 meq/L 3.5-5.1 kizd=875) CHLORIDE (BEAKER) (test 104 meq/L 98-107 dskr=829) CO2 (BEAKER) (test 25 meq/L 22-29 ezaz=140) BLOOD UREA NITROGEN 29 mg/dL 7-21 (BEAKER) (test zygp=224) CREATININE (BEAKER) (test 1.59 mg/dL 0.57-1.25 psur=548) GLUCOSE RANDOM (BEAKER) 80 mg/dL 70-105 (test uvqj=071) CALCIUM (BEAKER) (test 9.8 mg/dL 8.4-10.2 lhhl=982) EGFR (BEAKER) (test 43 mL/min/1.73 sq m ESTIMATED GFR IS NOT vcem=2748) ACCURATE CREATININE CLEARANCE IN PREDICTING GLOMERULAR FILTRATION RATE. ESTIMATED GFR IS NOT APPLICABLE FOR DIALYSIS PATIENTS. URINALYSIS W/ [id number] 16:01:00 Test Item Value Reference Range Comments COLOR (BEAKER) (test npbw=391) Light Yellow CLARITY (BEAKER) (test cbie=425) Clear SPECIFIC GRAVITY UA (BEAKER) (test ywuk=899) 1.012 1.001-1.035 PH UA (BEAKER) (test flbc=099) 7.0 5.0-8.0 PROTEIN UA (BEAKER) (test nqzx=353) 50 mg/dL Negative GLUCOSE UA (BEAKER) (test ihzq=252) Negative Negative KETONES UA (BEAKER) (test hnyp=163) Negative Negative BILIRUBIN UA (BEAKER) (test rqqb=389) Negative Negative BLOOD UA (BEAKER) (test kxwz=204) Negative Negative NITRITE UA (BEAKER) (test ovtu=112) Negative Negative LEUKOCYTE ESTERASE UA (BEAKER) (test zown=806) Negative Negative UROBILINOGEN UA (BEAKER) (test lnxo=264) 0.2 mg/dL 0.2-1.0 RBC UA (BEAKER) (test xcdp=952) 1 /HPF WBC UA (BEAKER) (test whgh=627) < /HPF MUCUS (BEAKER) (test fatn=5589) Rare SOURCE(BEAKER) (test vyxi=5728) [id number] 15:55:00 Test Item Value Reference Range Comments PARTIAL THROMBOPLASTIN TIME (BEAKER) (test 31.6 seconds 22.5-36.0 hjey=810) PROTHROMBIN TIME/[id number] 15:54:00 Test Item Value Reference Range Comments PROTIME (BEAKER) (test euzy=471) 14.8 seconds 11.7-14.7 INR (BEAKER) (test hlmf=367) 1.2 <=5.9 RECOMMENDED COUMADIN/WARFARIN INR THERAPY RANGESSTANDARD DOSE: 2.0 - 3.0 Includes: PROPHYLAXIS forvenous thrombosis, systemic embolization; TREATMENT for venous thrombosis and/or pulmonary embolus.HIGH RISK: Target INR is 2.5-3.5 for patients with mechanical heart valves.HEMOGLOBIN [id number] 11:52:00 Test Item Value Reference Range Comments HEMOGLOBIN A1C (BEAKER) (test ixod=437) 6.9 % 4.3-6.1 [id number] 11:12:00 Test Item Value Reference Range Comments RPR SCREEN (BEAKER) (test lyik=380) Nonreactive Nonreactive CBC W/PLT COUNT & AUTO [id number] 10:31:00 Test Item Value Reference Range Comments WHITE BLOOD CELL COUNT (BEAKER) (test uarp=836) 23.5 K/ L 3.5-10.5 RED BLOOD CELL COUNT (BEAKER) (test jyxh=819) 3.90 M/ L 4.63-6.08 HEMOGLOBIN (BEAKER) (test ewys=401) 11.0 GM/DL 13.7-17.5 HEMATOCRIT (BEAKER) (test jqul=205) 34.6 % 40.1-51.0 MEAN CORPUSCULAR VOLUME (BEAKER) (test rmay=190) 88.7 fL 79.0-92.2 MEAN CORPUSCULAR HEMOGLOBIN (BEAKER) (test 28.2 pg 25.7-32.2 pxrn=573) MEAN CORPUSCULAR HEMOGLOBIN CONC (BEAKER) (test 31.8 GM/DL 32.3-36.5 tjuu=422) RED CELL DISTRIBUTION WIDTH (BEAKER) (test 14.2 % 11.6-14.4 obew=310) PLATELET COUNT (BEAKER) (test hcuw=636) 230 K/CU MM 150-450 MEAN PLATELET VOLUME (BEAKER) (test zedw=156) 10.6 fL 9.4-12.4 NUCLEATED RED BLOOD CELLS (BEAKER) (test 0 /100 WBC 0-0 dudh=205) NEUTROPHILS RELATIVE PERCENT (BEAKER) (test 32 % ftht=146) LYMPHOCYTES RELATIVE PERCENT (BEAKER) (test 64 % ziog=370) MONOCYTES RELATIVE PERCENT (BEAKER) (test 3 % sozg=036) EOSINOPHILS RELATIVE PERCENT (BEAKER) (test 0 % bubz=482) BASOPHILS RELATIVE PERCENT (BEAKER) (test 0 % yjsf=883) NEUTROPHILS ABSOLUTE COUNT (BEAKER) (test 7.57 K/ L 1.78-5.38 pdxi=254) LYMPHOCYTES ABSOLUTE COUNT (BEAKER) (test 15.04 K/ L 1.32-3.57 tnlj=271) MONOCYTES ABSOLUTE COUNT (BEAKER) (test 0.68 K/ L 0.30-0.82 qmmq=897) EOSINOPHILS ABSOLUTE COUNT (BEAKER) (test 0.03 K/ L 0.04-0.54 lcwe=917) BASOPHILS ABSOLUTE COUNT (BEAKER) (test 0.08 K/ L 0.01-0.08 myjn=152) IMMATURE GRANULOCYTES-RELATIVE PERCENT (BEAKER) 0 % 0-1 (test qxdm=7900) (MANUAL DIFFERENTIAL)2017-01-29 10:31:00 Test Item Value Reference Range Comments TOTAL COUNTED (BEAKER) (test gvkt=2176) PLT MORPHOLOGY (BEAKER) (test iwcn=635) Normal RBC MORPHOLOGY (BEAKER) (test rmmu=667) Normal ATYPICAL LYMPHS(BEAKER) (test gsxn=7616) Present SMUDGE CELLS (BEAKER) (test gmoq=2653) Present VITAMIN [id number] 08:02:00 Test Item Value Reference Range Comments VITAMIN B12 (BEAKER) (test wtrs=351) 346 pg/mL 213-816 TSH/FREE T4 IF [id number] 08:02:00 Test Item Value Reference Range Comments THYROID STIMULATING HORMONE (BEAKER) (test 1.37 uIU/mL 0.35-4.94 dtgs=704) CREATINE KINASE (CK), TOTAL AND [id number] 07:55:00 Test Item Value Reference Range Comments CREATINE KINASE TOTAL (BEAKER) (test hsno=429) 72 U/L 29-200 CREATINE KINASE-MB (BEAKER) (test vosp=340) 0.5 ng/mL 0.0-6.6 CREATINE KINASE-MB INDEX (BEAKER) (test kmdx=080) 0.7 % CK-MB Reference Range:<6.7 Normal6.7-10.0 Borderline>10.0 AbnormalTROPONIN [id number] 07:55:00 Test Item Value Reference Range Comments TROPONIN I (BEAKER) (test jizp=372) 0.02 ng/mL 0.00-0.03 Troponin I (TnI) levels [...] acidosis, acute neurological disease, and persistent tachyarrhythmia.LIPID [id number] 07:39:00 Test Item Value Reference Range Comments TRIGLYCERIDES (BEAKER) (test ghsu=111) 175 mg/dL CHOLESTEROL (BEAKER) (test bkbl=714) 104 mg/dL HDL CHOLESTEROL (BEAKER) (test xitb=199) 21 mg/dL LDL CHOLESTEROL CALCULATED (BEAKER) (test 48 mg/dL iaeg=194) Triglyceride Reference Range: Low Risk <150 Borderline 150- 199 High Risk 200-499 Very High Risk >=500Cholesterol Reference Range: Low Risk <200 Borderline 200-239 High Risk > 240HDL Cholesterol Reference Range: Low Risk >=60 High Risk <40LDL Cholesterol Reference Range: Optimal <100 Near Optimal 100-129 Borderline 130-159 High 160-189 Very High >=190BASIC METABOLIC [id number] 07:39:00 Test Item Value Reference Range Comments SODIUM (BEAKER) (test 141 meq/L 136-145 decd=455) POTASSIUM (BEAKER) (test 3.7 meq/L 3.5-5.1 lnuq=506) CHLORIDE (BEAKER) (test 108 meq/L 98-107 ytnz=717) CO2 (BEAKER) (test 23 meq/L 22-29 htqv=644) BLOOD UREA NITROGEN 20 mg/dL 7-21 (BEAKER) (test nzgr=664) CREATININE (BEAKER) (test 1.41 mg/dL 0.57-1.25 iygc=645) GLUCOSE RANDOM (BEAKER) 111 mg/dL 70-105 (test ieau=737) CALCIUM (BEAKER) (test 9.3 mg/dL 8.4-10.2 dvzm=349) EGFR (BEAKER) (test 49 mL/min/1.73 sq m ESTIMATED GFR IS NOT thyt=7153) ACCURATE CREATININE CLEARANCE IN PREDICTING GLOMERULAR FILTRATION RATE. ESTIMATED GFR IS NOT APPLICABLE FOR DIALYSIS PATIENTS. MR, MRA, BRAIN, WITHOUT [id number] 04:30:00Reason for exam:-> Ischemic Stroke EvaluationFINAL REPORT [...] MDReport Verified Date/Time: 01/29/2017 04:30:36 Reading Location: [address] Reading Room Electronically signed by: ZELALEM MACIEL MD on 2016 04:30 AMMR, MRA, NECK, WITHOUT IV [id number] 04:30:00Reason for exam:->Ischemic Stroke EvaluationFINAL REPORT MR, [...] Verified Date/Time: 01/29/2017 04 :30:36 Reading Location: [address] Reading Room MR, BRAIN, WITHOUT [id number] 04:30:00Reason for exam:->Ischemic Stroke EvaluationFINAL REPORT MR, [...] MDReport Verified Date/Time: 01/29/2017 04:30:36 Reading Location: [facility] B1 [id number] [facility] Consult Reading Room Electronically signed by: ZELALEM MACIEL MD on 2016 04:30 AM
[2018-03-19] MEDS ORDERED: AMLODIPINE 5 MG TAB ONE (14:11)
[2018-03-19 14:12] LABS: Potassium 4.2 mmol/L (3.5-5.1)
--- NOTE | 2018-03-19 15:46 | EDPHYS ---
Physician Documentation [facility] Name: Duke Marin III Age: 73 yrs Sex: Male : 1945 Arrival Date: 03/19/2018 Time: 12:40 Bed 27 Private MD: Javi Looney ED Physician Drew العلي HPI: 03/19 15:35 This 73 yrs old Male presents to ER via Wheelchair with complaints of High ma2 Blood Pressure. 15:35 The patient has elevated blood pressure and discovered this at home. Onset: The ma2 symptoms/episode began/occurred gradually, 1 day(s) ago. Associated signs and symptoms: Pertinent positives: sob, Pertinent negatives: headache, nausea, visual changes, vomiting. Severity of symptoms: At its worst the blood pressure was moderate. The patient has not experienced similar symptoms in the past. Historical: - Allergies: 13:02 Ephedrine Sulfate; aa5 13:02 Pseudoephedrine; aa5 - PMHx: 13:02 Atrial Fib; Bladder cancer; CLL; CVA; enlarged aorta; Hypertension; SVT; aa5 - Immunization history:: Flu vaccine is not up to date. - Social history:: Smoking status: Patient/guardian denies using tobacco, Patient/guardian denies using alcohol, street drugs, The patient lives with family. - Ebola Screening: : No symptoms or risks identified at this time. - Family history:: not pertinent. ROS: 15:35 Constitutional: Negative for fever, chills, and weight loss, Cardiovascular: Negative ma2 for chest pain, palpitations, and edema, Respiratory: Negative for shortness of breath, cough, wheezing, and pleuritic chest pain, Abdomen/GI: Negative for abdominal pain, nausea, diarrhea, and constipation, MS/Extremity: Negative for injury and deformity, Skin: Negative for injury, rash, and discoloration, Allergy/Immunology: Negative for hives, rash, and allergies, Endocrine: Negative for neck swelling, polydipsia, polyuria, polyphagia, and marked weight changes. 15:35 All other systems are negative. Exam: 15:35 Constitutional: This is a well developed, well nourished patient who is awake, alert, ma2 and in no acute distress. Chest/axilla: Normal chest wall appearance and motion. Nontender with no deformity. No lesions are appreciated. Cardiovascular: Regular rate and rhythm with a normal S1 and S2. No gallops, murmurs, or rubs. Normal PMI, no JVD. No pulse deficits. Respiratory: Lungs have equal breath sounds bilaterally, clear to auscultation and percussion. No rales, rhonchi or wheezes noted. No increased work of breathing, no retractions or nasal flaring. Abdomen/GI: Soft, non-tender, with normal bowel sounds. No distension or tympany. No guarding or rebound. No evidence of tenderness throughout. MS/ Extremity: Pulses equal, no cyanosis. Neurovascular intact. Full, normal range of motion. Neuro: Awake and alert, GCS 15, oriented to person, place, time, and situation. Cranial nerves II-XII grossly intact. Motor strength 5/5 in all extremities. Sensory grossly intact. Cerebellar exam normal. Normal gait. Vital Signs: 13:02 BP 162 / 85; Pulse 59; Resp 16 S; Temp 98.3(TE); Pulse Ox 95% on R/A; Weight 89.36 kg aa5 (R); Height 5 ft. 10 in. (177.80 cm) (R); Pain 0/10; 14:06 BP 163 / 89; Pulse 57; Resp 18; Pulse Ox 98% ; tl3 14:50 BP 183 / 82; Pulse 53; Resp 18; Pulse Ox 96% ; tl3 15:59 BP 148 / 92; Pulse 84; Resp 18; Pulse Ox 96% on R/A; tl3 13:02 Body Mass Index 28.27 (89.36 kg, 177.80 cm) aa5 MDM: 13:28 Patient medically screened. ma2 15:35 Differential diagnosis: elevated BP, Creatinine is 1.6 I recommended admission for IVF ma2 and creatinine recheck especially in the setting of elevated bp he agreed initially then decided he want to go home, i recommended at least ivf in the er and more bp controle and will discharge him in few hours however he would like to go home and drink water.. aware of risk of malignant htn and stroke and further complicaiton. Data reviewed: vital signs, nurses notes. Counseling: I had a detailed discussion with the patient and/or guardian regarding: the historical points, exam findings, and any diagnostic results supporting the discharge/admit diagnosis, the presence of at least one elevated blood pressure reading (>120/80) during this emergency department visit, the need for outpatient follow up. Response to treatment: the patient's symptoms have markedly improved after treatment. 03/19 13:36 Order name: JEFFERY; Complete Time: 14:51 tl3 Administered Medications: 14:05 Drug: Norvasc 5 mg Route: PO; tl3 14:52 Follow up: Response: No adverse reaction tl3 15:47 CANCELLED (Patient Refused): NS 0.9% 1000 ml IV at 1 bolus Per protocol; 1000 mL bolus ma2 15:47 CANCELLED (Patient Refused): Labetalol 10 mg IVP once ma2 Disposition: 03/19/18 15:45 Discharged to Home. Impression: Essential (primary) hypertension. - Condition is Stable. - Discharge Instructions: Hypertension, Managing Your Hypertension. - Medication Reconciliation Form, Thank You Letter, Antibiotic Education, Prescription Opioid Use form. - Follow up: Private Physician; When: Tomorrow; Reason: Continuance of care. Signatures: Dispatcher [employer] EDGisella Story RN RN aa5 Drew العلي MD MD ma2 Anaya Cabral RN RN tl3 Corrections: (The following items were deleted from the chart) 15:47 15:32 NS 0.9% 1000 ml IV at 1 bolus Per protocol; 1000 mL bolus ordered. ma2 ma2 15:47 15:34 Labetalol 10 mg IVP once ordered. ma2 in2 16:00 15:45 03/19/2018 15:45 Discharged to Home. Impression: Essential (primary) tl3 hypertension. Condition is Stable. Forms are Medication Reconciliation Form, Thank You Letter, Antibiotic Education, Prescription Opioid Use. Follow up: Private Physician; When: Tomorrow; Reason: Continuance of care. ma2
--- NOTE | 2018-03-19 15:46 | ER ---
Nurse's Notes [facility] Name: Duke Marin III Age: 73 yrs Sex: Male : 1945 Arrival Date: 03/19/2018 Time: 12:40 Bed 27 Private MD: Javi Looney Diagnosis: Essential (primary) hypertension Presentation: 03/19 13:00 Presenting complaint: Patient states: "my blood pressure has been high since aa5 yesterday". Pt states "My blood pressure was 208/111 this morning and after taking my medications it was 170 (systolic) but an hour later it was 197/101". Pt reports blurry vision. Transition of care: patient was not received from another setting of care. Onset of symptoms was March 2018. Risk Assessment: Do you want to hurt yourself or someone else? Patient reports no desire to harm self or others. Initial Sepsis Screen: Does the patient meet any 2 criteria? No. Patient's initial sepsis screen is negative. Does the patient have a suspected source of infection? No. Patient's initial sepsis screen is negative. Care prior to arrival: None. 13:00 Method Of Arrival: Wheelchair aa5 13:00 Acuity: PARAG 3 aa5 Historical: - Allergies: 13:02 Ephedrine Sulfate; aa5 13:02 Pseudoephedrine; aa5 - PMHx: 13:02 Atrial Fib; Bladder cancer; CLL; CVA; enlarged aorta; Hypertension; SVT; aa5 - Immunization history:: Flu vaccine is not up to date. - Social history:: Smoking status: Patient/guardian denies using tobacco, Patient/guardian denies using alcohol, street drugs, The patient lives with family. - Ebola Screening: : No symptoms or risks identified at this time. - Family history:: not pertinent. Screenin:33 Abuse screen: Denies threats or abuse. Nutritional screening: No deficits noted. tl3 Tuberculosis screening: No symptoms or risk factors identified. Fall Risk None identified. Assessment: 13:31 General: Appears comfortable, slender, well groomed, well developed, well nourished. tl3 13:33 General: Appears comfortable, slender, well groomed, well developed, well nourished, tl3 Behavior is calm, cooperative, appropriate for age. Pain: Denies pain. Neuro: Level of Consciousness is awake, alert, obeys commands. Cardiovascular: No deficits noted. Heart tones S1 S2 present Patient's skin is warm and dry. Respiratory: Airway is patent Respiratory effort is even, unlabored, Respiratory pattern is regular, symmetrical. GI: No signs and/or symptoms were reported involving the gastrointestinal system. 13:33 Reassessment: pt reports two high readings of his blood pressure once last night and tl3 once this am of 208/111, currently pressure is 145/77. 14:05 Reassessment: 23 g butterfly used to obtain blood from right wrist. tl3 14:50 Reassessment: No changes from previously documented assessment. Patient and/or family tl3 updated on plan of care and expected duration. Pain level reassessed. Patient is alert, oriented x 3, equal unlabored respirations, skin warm/dry/pink. pt resting quietly, no needs at this time. 15:59 Reassessment: No changes from previously documented assessment. Patient and/or family tl3 updated on plan of care and expected duration. Pain level reassessed. Patient is alert, oriented x 3, equal unlabored respirations, skin warm/dry/pink. Vital Signs: 13:02 BP 162 / 85; Pulse 59; Resp 16 S; Temp 98.3(TE); Pulse Ox 95% on R/A; Weight 89.36 kg aa5 (R); Height 5 ft. 10 in. (177.80 cm) (R); Pain 0/10; 14:06 BP 163 / 89; Pulse 57; Resp 18; Pulse Ox 98% ; tl3 14:50 BP 183 / 82; Pulse 53; Resp 18; Pulse Ox 96% ; tl3 15:59 BP 148 / 92; Pulse 84; Resp 18; Pulse Ox 96% on R/A; tl3 13:02 Body Mass Index 28.27 (89.36 kg, 177.80 cm) aa5 ED Course: 12:40 Patient arrived in ED. mr 12:40 Javi Looney MD is Private Physician. mr 13:00 Arm band placed on. aa5 13:02 Triage completed. aa5 13:08 Anaya Cabral RN is Primary Nurse. tl3 13:28 Drew العلي MD is Attending Physician. ma2 13:33 Patient has correct armband on for positive identification. Bed in low position. Call tl3 light in reach. Pulse ox on. NIBP on. 13:33 No provider procedures requiring assistance completed. Patient did not have IV access tl3 during this emergency room visit. 13:50 Initial lab(s) drawn, by me, sent to lab. tl3 Administered Medications: 14:05 Drug: Norvasc 5 mg Route: PO; tl3 14:52 Follow up: Response: No adverse reaction tl3 15:47 CANCELLED (Patient Refused): NS 0.9% 1000 ml IV at 1 bolus Per protocol; 1000 mL bolus ma2 15:47 CANCELLED (Patient Refused): Labetalol 10 mg IVP once ma2 Outcome: 15:45 Discharge ordered by . ma2 15:59 Discharged to home ambulatory. tl3 15:59 Condition: stable 15:59 Discharge instructions given to patient, family, Instructed on discharge instructions, follow up and referral plans. Demonstrated understanding of instructions, follow-up care. 16:00 Patient left the ED. tl3 Signatures: Nydia Hinkle RavinderGisella, RN RN aa5 Drew العلي MD MD ma2 Anaya Cabarl RN RN tl3
[2018-03-19 16:41] VITALS: TEMP 98.3
[2018-03-19 16:45] VITALS: O2SAT 96
[2018-03-19 16:46] VITALS: BP 148/92
== END 2018-03-19 16:00 | disposition home or self-care (01) ==
LOC: ER 12:34
DX: I10 Essential (primary) hypertension (principal); Z88.8 Allergy status to other drugs, medicaments and biological substances; Z85.51 Personal history of malignant neoplasm of bladder
CPT/HCPCS: 36415; 80048; 99284

== ENCOUNTER 2019-07-02 13:39 | Emergency (ER) | payer OTHER ==
--- OUTSIDE RECORDS SUMMARY | 2019-07-02 13:41 | XMS REPORT | Clinical Summary ---
:1945 Author Organization [facility] Address [address] [place] [address] Care Team Providers Name Role Phone MD Aayush Primary Care Provider Allergies Active Allergy Reactions Severity Noted Date Comments Clonidine High 01/28/2017 Makes him extre arron depressed Coconut Swelling 01/29/2017 Lip and tongue swelling Pseudoephedrine Other (See Comments) 01/28/2017 Irre gular heart beat Medications Medication Sig Dispensed Refills Start Date End Date Status rosuvastatin (CRESTOR) TK 1 T PO QD 2 04/27/2016 Active 10 MG tablet clopidogrel (PLAVIX) 75 Take 75 mg by 0 Active mg tablet mouth daily. 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
--- OUTSIDE RECORDS SUMMARY | 2019-07-02 13:42 | XMS REPORT | Clinical Summary ---
:1945 Author Organization [facility] Address [address] [place] [address] Care Team Providers Name Role Phone MD Aayush Primary Care Provider Allergies Active Allergy Reactions Severity Noted Date Comments Ciprofloxacin Palpitations Low 09/07/2017 Heart rate inc rease. Clonidine High 01/28/2017 Makes him extre arron depressed Coconut Swelling 01/29/2017 Lip and tongue swelling Pseudoephedrine Other (See Comments) 01/28/2017 Irre gular heart beat Medications Medication Sig Dispensed Refills Start Date End Date Status nebivolol (BYSTOLIC) 10 Take 10 mg by 0 Active MG tablet mouth daily Taken in AM. dilTIAZem (CARDIZEM CD) Take 240 mg by 0 Active 240 MG 24 hr capsule mouth daily. rosuvastatin (CRESTOR) Take 10 mg by 0 Active 10 MG tablet mouth daily At bedtime . clopidogrel (PLAVIX) 75 Take 75 mg by 0 Active mg tablet mouth daily. aspirin 81 MG EC tablet Take 81 mg by 0 Active mouth daily. VALSARTAN ORAL Take 160 mg by 0 Active mouth daily . nebivolol (BYSTOLIC) 5 Take 5 mg by 0 Active MG tablet mouth nightly. Active Problems Problem Noted Date Bladder cancer 08/25/2017 CVA (cerebral vascular accident) 01/28/2017 Paroxysmal atrial fibrillation 01/28/2017 CLL (chronic lymphocytic leukemia) 01/28/2017 Essential hypertension 01/28/2017 History of lacunar cerebrovascular accident (CVA) 01/07 Social History Tobacco Use Types Packs/Day Years [...] Signs Not on file Plan of Treatment Not on file Results Not on fileafter 07/01/2018 Insurance Payer Benefit Plan / Group Subscriber ID Type Phone A ddress MEDICARE MEDICARE A B xxxxxxxxxxx Medicare AETNA - MGD CARE AETNA INDEMNITY NON CONTR xxxxxxxxx Comm Advance Directives For more information, please contact:[place] [id number] [place], [place] [phone] Code Status Date Activated Date Inactivated Comments Full Code 01/28/2017 10:55 PM 01/29/2017 1:33 PM This code status was determined by: Patient
--- OUTSIDE RECORDS SUMMARY | 2019-07-02 13:43 | XMS REPORT | Continuity of Care Document ---
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 06/01/2017 [place] reflux uropathy, 18 Yogesh d unspecified Hematuria, 05/27/19 06/01/2017 [place] unspecified 18 [place] LUMBAR STENOSIS Active 08/20/[id number] M54.16 - Active 07/21/19 OPIMarcio "RADICULOPATHY, 17 Herm torin LUMBAR REGION" Cerebrovascular Resolved Problem 03/27/2018 Mis terrence accident Neuro, (disorder) [facility] [place], Diana Mcdowell, PRECIOUS [facility], [place] Hematoma Resolved Problem 03/27/2018 Mischer (disorder) [facility], PRECIOUS Clements,M Jaquelin Chavez, OPIMarcio [facility], [place] 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 to 8.6 MG Oral Rachelle-Colace. Tablet Docusate Sodium 1 tab, PO, Active 05/29/ Gray gar 50 MG / BID, X 14 day, 2017 [facility] sennosides, CARE [facility] # 28 tab, 0 8.6 MG Oral Refill(s), Tablet Pharmacy: [facility] [id number] ciprofloxacin 500 500 mg = 1 Active [place] mg oral tablet tab, PO, Q12H, 2018 [place] X 7 day, # 14 tab, 0 Refill(s), Pharmacy: [facility] [id number] Demarcus Notes: May Inactive [place] interfere 2018 [place] w/enteral feedings - Take 1 hr before or 2 hrs after antacids, dairy pdt & minerals. On empty stomach. Normal Saline for Notes: For Inactive [place] Irrigation irrigation 2017 [place] only. Sodium Chloride Notes: For No Longer [place] irrigation Active 2017 [place] only. Diltiazem Notes: (Same No Longer [place] Hydrochloride ER as: Cardizem Active 2017 nd CD) Do Not Crush Before meals. 24 HR Diltiazem 240 mg = 1 Active Gray gar Hydrochloride 240 cap, PO, 2017 [place] MG Extended Daily, 0 Release Capsule Refill(s) [Cartia] clopidogrel 75 MG 75 mg = 1 tab, No Longer 05/28 [place] Oral Tablet PO, Daily, 0 Active 2017 [place] [Plavix] Refill(s) Aspirin 81 mg, 0 No Longer [place] Refill(s) Active 2017 nebivolol 10 MG 10 mg = 1 tab, Active H [place] Oral Tablet PO, Daily, 0 2018 [place] [Bystolic] Refill(s) Bystolic Notes: (same No Longer [place] as: Bystolic) Active 2017 [place] Crestor Notes: (Same No Longer [place] As: Crestor) Active 2017 [place] Docusate Notes: (Same No Longer [place] as: Colace) Active 2017 [place] (Do Not Crush) Lisinopril Notes: (Same No Longer [place] as: Prinivil, Active 2017 [place] Zestril) Clonidine Notes: (Same Inactive [place] Hydrochloride 0.1 As: Catapres) 2018 [place] MG Oral Tablet Hydralazine Notes: (Same No Longer [place] as: Active 2017 [place] Apresoline) Push over 5 minutes Cataflam 50 mg = 1 tab, Inactive [place] PO, TID, PRN 2018 [place] pain, # 30 tab, 0 Refill(s) Acetaminophen Notes: Do not No Longer [place] exceed 4 Active 2017 [place] gm/day. (Same as: Tylenol) Acetaminophen 325 Notes: (Same No Longer [place] MG / Hydrocodone as: [place] Active 2017 [place] Bitartrate 5 MG 325/5) Do not Oral Tablet exceed 4gm/day of acetaminophen. Morphine Notes: (Same No Longer [place] as:MORPhine Active 2017 Sulfate) Ondansetron Notes: (Same No Longer [place] as: Zofran) Active 2017 [place] MEDICATION WASTE Product Size: 4 mg Product Wasted: ___ mg Irrigation w/ Notes: For Inactive Sug ar Normal Saline irrigation 2017 [place] only. Sodium Chloride Notes: For Inactive S ugar 0.0769 MEQ/ML irrigation 2017 [place] Irrigation only. Solution Sodium Chloride 250 mL, Rate: No Longer [place] 0.9% (titrate) To prime line Active 2017 Yogesh d 250 mL and flush remaining blood products., Dosing Weight 89.545, kg, Route: IV, Total Volume: 250, Start Date: 05/27/17 1:25:00 CDT, Duration: 30 day, Stop date: 06/26/17 1:24:00 CDT, Replace Every: 24 hr Irrigation w/ Notes: For Inactive [place] ar Normal Saline irrigation 2017 [place] only. Irrigation w/ Notes: For Inactive [place] ar Normal Saline irrigation 2017 [place] only. Saline Flush 0.9% Notes: (Same No Longer [place] as: BD Active 2017 [place] Posiflush) Phenazopyridine 100 mg = 1 No Longer [place] hydrochloride 100 tab, PO, TID, Active 2017 [place] MG Oral Tablet PRN Dysuria, X [Pyridium] 2 day, # 6 tab, 0 Refill(s) Acetaminophen 300 1 - 2 tab, PO, No Longer 05/27 [place] MG / Codeine Q4H, PRN Pain, Active 2017 [place] Phosphate 60 MG X 2 day, # 12 Oral Tablet tab, 0 [Tylenol with Refill(s) Codeine #4] Acetaminophen 325 2 tab, Route: Inactive [place] MG / Hydrocodone PO, Drug Form: 2018 [place] Bitartrate 5 MG TAB, Dosing Oral Tablet Weight 89.545, [[place] 5/325] kg, ONCE, STAT, Start date: 05/26/17 [...] CDT, Stop date: 05/26/17 19:36:00 CDT diltiazem Notes: DO NOT Inactive [place] CRUSH. 2017 [facility] Lisinopril Notes: (Same No Longer Javad as as: Prinivil, Active 2017 Medical Zestril) [place] Famotidine 20 MG 20 mg = 1 tab, Active [facility] Oral Tablet PO, BID, # 20 2017 Medica l tab, 0 Center Refill(s) magnesium citrate 8.725 gm = 150 No Longer 09/23 [facility] 58.2 MG/ML Oral ml, PO, Daily, Active 2016 M edical Solution X 2 day, # 300 Center mL, 0 Refill(s) Acetaminophen 325 1 tab, PO, Active [facility] MG / Hydrocodone Q6H, PRN for 2017 In dical Bitartrate 10 MG pain, X 14 Cent er Oral Tablet day, # 90 tab, [[place] 10/325] 0 Refill(s) Methocarbamol 500 500 mg = 1 Active [facility] MG Oral Tablet tab, PO, Q8H, 2017 Med ical [Robaxin] PRN Spasms, X Center 10 day, # 30 tab, 0 Refill(s) {21 See Active [facility] (Methylprednisolo Instructions, 2017 Medical ne 4 MG Oral PO, Take by Center Tablet [Medrol]) mouth as } Pack [Medrol directed on Dosepak] label., # 1 Pack, 0 Refill(s) Flomax Notes: (Same No Longer [place] As: Flomax) Active 2017 Medical "Do Not Crush" Center Cefazolin Notes: (Same No Longer [place] As: Ancef, Active 2017 Medical Kefzol) Center Cefazolin FOR IV SET ONLY MEDICATION WASTE Product Size: 1000 mg Product Wasted: _0__ mg Saline Flush 0.9% Notes: (Same No Longer [place] as: BD Active 2017 Medical Posiflush) Center Dexamethasone Notes: Give No Longer [place] with food. Active 2017 Medical (Same As: Center Decadron) Famotidine 20 MG Notes: (Same No Longer [place] Oral Tablet as: Pepcid) Active 2017 Medical Center Docusate Notes: (Same No Longer [place] as: Colace) Active 2017 Medical (Do Not Crush) Center sennosides, CARE HOME Notes: (Same No Longer [facility] [place] as: Senokot) Active 2017 [facility] Center Clonidine Notes: (Same No Longer [place] Hydrochloride 0.1 As: Catapres) Active 2017 Medical MG Oral Tablet Center Ondansetron Notes: (Same Inactive Javad as as: Zofran) 2017 Medical MEDICATION Center WASTE Product Size: 4 mg Product Wasted: ___ mg Naloxone Notes: Same [place] Narcan 2017 [facility] Flumazenil Notes: (Same [place] as: Romazicon) 2017 [facility] Hydralazine Notes: (Same Inactive Javad as as: 2017 Medical Apresoline) Center Push over 5 minutes Hydromorphone Notes: [place] as: Dilaudid 2017 Medical [facility] Oxycodone Notes: (Same Inactive [place] as: 2017 Medical Roxicodone) Center Saline Flush 0.9% Notes: (Same No Longer [place] as: BD Active 2017 Medical Posiflush) Center Robaxin Notes: (Same No Longer [place] as:Robaxin) Active 2017 Medical [facility] Hydralazine Notes: (Same [place] Longer [place] as: Active 2016 Medical Apresoline) Center Push over 5 minutes Labetalol 10 mg, 2 mL, No Longer [place] Route: IVP, Active 2016 Medical Drug form: Center INJ, Q15Min, Dosing Weight 93.182, kg, PRN Hypertension, Start date: 09/22/16 16:11:00 CDT, Duration: 30 day, Stop date: 10/22/16 16:10:00 CDT Ondansetron Notes: (Same [place] Longer [place] as: Zofran) Active 2016 Medical MEDICATION Center WASTE Product Size: 4 mg Product Wasted: ___ mg Acetaminophen 325 Notes: Do not No Longer [place] MG / Hydrocodone exceed 4gm/day Active 2016 [facility] Bitartrate 10 MG of Center Oral Tablet acetaminophen. [[place] 10/325] (Same as: [place] 325/10) Dilaudid Notes: Same No Longer [facility] as: Dilaudid Active 2017 Medical [place] Bisacodyl Notes: (Same No Longer [place] As: Dulcolax, Active 2016 [facility] Bisco-Lax) Center phenol Notes: No Longer [facility] Chloraseptic Active 2016 Medical [place] (Same Center as: Chloraseptic, Sore Throat [place]) WASTE: F/P - Black; E - Municipal Trash Bin Melatonin 3 MG Notes: (Same No Longer [facility] Extended Release as: Melatonin) Active 2017 Medical Tablet Center Benadryl Notes: (Same No Longer [facility] as: Benadryl) Active 2017 Medical Center ceFAZolin Notes: Same No Longer [facility] as: Ancef Active 2016 Medical Center Allergies, Adverse Reactions, Alerts No Known Medication Allergies Immunizations No Data Provided for This Section Results Order Name Results Value Reference Date Interpretation Comments Sulema rce Range HEMATOLOGY MCHC 32.2 32.0 - 05/29 [place] 36.0 2018 [facility] HEMATOLOGY MPV 8.6 7.4 - 10.4 05/29 [facility] HEMATOLOGY Platelet 222 133 - 450 05/29 [place] HEMATOLOGY RDW 16.8 11.5 - 05/29 [place] 14.5 /2017 [place] HEMATOLOGY Hgb 11.3 14.0 - 05/29 [place] 18.0 [place] HEMATOLOGY RBC 4.00 4.70 - 05/29 [place] 6.10 [place] HEMATOLOGY WBC 51.5 3.7 - 10.4 05/29 Result Comment: [place] Critical Result(s) called to Zoran Ortiz at 05/29/2017 05:34 by RP. Read back OK. HEMATOLOGY MCV 87.5 80.0 - 05/29 [place] 94.0 [place] HEMATOLOGY Hct 35.0 42.0 - 05/29 [place] 54.0 [place] HEMATOLOGY MCH 28.2 27.0 - 05/29 [place] 31.0 [place] HEMATOLOGY Monocytes # 1.8 0.0 - 0.8 05/29 [place] HEMATOLOGY Basophils # 0.1 0.0 - 0.2 05/29 [place] HEMATOLOGY Eosinophils 0.5 0.0 - 0.5 05/29 [place] # /2017 [place] HEMATOLOGY Monocytes 3.5 2.0 - 12.0 05/29 [place] HEMATOLOGY Lymphocytes 77.1 20.0 - 05/29 [place] 40.0 [place] HEMATOLOGY Segs 18.1 45.0 - 05/29 [place] 75.0 [place] HEMATOLOGY Lymphocytes 39.7 1.0 - 5.5 05/29 [place] # Land HEMATOLOGY Eosinophils 1.0 0.0 - 4.0 05/29 [place] HEMATOLOGY Segs-Bands # 9.3 1.5 - 8.1 05/29 [place] HEMATOLOGY Basophils 0.3 0.0 - 1.0 05/29 [place] HEMATOLOGY Eosinophils 1.0 0.0 - 4.0 05/28 [place] HEMATOLOGY Monocytes 2.0 2.0 - 12.0 05/28 [place] HEMATOLOGY Tot Cell Ct 100 05/28 [place] HEMATOLOGY Atypical 2.0 <=0.0 % 05/28 [place] Lymphs [place] HEMATOLOGY Hypochrom 1+ None Seen 05/28 [place] (05/28/17 5:41 AM) Land HEMATOLOGY Smudge Moderate None Seen 05/28 [place] *ABN* /2017 [place] (05/28/17 5:41 AM) HEMATOLOGY Anisocyte 1+ None Seen 05/28 [place] *ABN* /2017 [place] (05/28/17 5:41 AM) HEMATOLOGY Microcyte 1+ None Seen 05/28 [place] *ABN* /2017 [place] (05/28/17 5:41 AM) HEMATOLOGY Lymphocytes 42.8 1.0 - 5.5 05/28 [place] # /2017 [place] HEMATOLOGY Segs 13.0 45.0 - 05/28 [place] 75.0 [place] HEMATOLOGY Eosinophils 0.5 0.0 - 0.5 05/28 [place] # /2017 [place] HEMATOLOGY Lymphocytes 82.0 20.0 - 05/28 [place] 40.0 [place] HEMATOLOGY Bands 0.0 0.0 - 11.0 05/28 [place] HEMATOLOGY Segs-Bands # 6.6 1.5 - 8.1 05/28 [place] ar /2017 [place] HEMATOLOGY Monocytes # 1.0 0.0 - 0.8 05/28 [place] HEMATOLOGY Platelet 225 133 - 450 05/28 [facility] HEMATOLOGY RDW 16.4 11.5 - 05/28 [place] 14.5 [place] HEMATOLOGY MCH 27.8 27.0 - 05/28 [place] 31.0 [place] HEMATOLOGY MCHC 32.2 32.0 - 05/28 [place] 36.0 [facility] HEMATOLOGY MCV 86.2 80.0 - 05/28 [place] 94.0 [place] HEMATOLOGY Hct 35.5 42.0 - 05/28 [place] 54.0 [facility] HEMATOLOGY MPV 8.2 7.4 - 10.4 05/28 Sugar [facility] HEMATOLOGY Hgb 11.4 14.0 - 05/28 [place] 18.0 [place] HEMATOLOGY RBC 4.13 4.70 - 05/28 [place] 6.10 [place] HEMATOLOGY WBC 51.0 3.7 - 10.4 05/28 Result Comment: [facility] Critical Result(s) called to HANDY Garcia at 05/28/2017 05:59 by COMMUNITY DIRECTOR. Read back OK. CHEM PANEL eGFR 68 05/27 Result Comment: The [facility] eGFR is calculated using the CKD-EPI formula. In most young, healthy individuals the eGFR will be >90 mL/min/1.73m2 . The eGFR declines with age. An eGFR of 60-89 may be normal in some populations, particularly the elderly, for whom the CKD-EPI formula has not been extensively validated. Use of the eGFR is not recommended in the following populations:< br/>
Ariana viduals with unstable creatinine concentration s, including patients and those with serious co-morbid conditions.<b r/>
Patie nts with extremes in muscle mass or diet.

The data above are obtained from the National Kidney Disease Education Program (NKDEP) which additionally recommends that when the eGFR is used in patients with extremes of body mass index for purposes of drug dosing, the eGFR should be multiplied by the estimated BMI. CHEM PANEL CO2 24 24 - 32 05/27 [place] CHEM PANEL Chloride Lvl 107 95 - 109 05/27 [place] CHEM PANEL Potassium 3.8 3.5 - 5.1 05/27 [place] Lvl [place] CHEM PANEL Sodium Lvl 142 135 - 145 05/27 [place] CHEM PANEL Creatinine 1.08 0.50 - 05/27 [place] Lvl 1.40 [place] CHEM PANEL BUN 20 7 - 22 05/27 [place] CHEM PANEL Calcium Lvl 8.7 8.5 - 10.5 05/27 [place] CHEM PANEL Glucose Lvl 119 70 - 99 05/27 [place] CHEM PANEL AGAP 14.8 10.0 - 05/27 [place] 20.0 [place] HEMATOLOGY Smudge Few 05/27 [place] HEMATOLOGY Monocytes 1.3 2.0 - 12.0 05/27 [place] HEMATOLOGY Basophils 0.5 0.0 - 1.0 05/27 [place] HEMATOLOGY Eosinophils 0.3 0.0 - 4.0 05/27 [place] HEMATOLOGY Monocytes # 0.8 0.0 - 0.8 05/27 [place] HEMATOLOGY Segs-Bands # 10.9 1.5 - 8.1 05/27 [place] HEMATOLOGY Lymphocytes 44.6 1.0 - 5.5 05/27 [place] # Land HEMATOLOGY Basophils # 0.3 0.0 - 0.2 05/27 [place] /2017 [facility] HEMATOLOGY Anisocyte 1+ None Seen 05/27 [place] *ABN* /2017 [place] (05/27/17 8:34 AM) HEMATOLOGY Eosinophils 0.2 0.0 - 0.5 05/27 [place] # /2017 [facility] HEMATOLOGY Segs 19.3 45.0 - 05/27 [place] 75.0 /2017 [facility] HEMATOLOGY Plt Morph Normal 05/27 [place] (05/27/17 8:34 AM) /2017 [facility] HEMATOLOGY Lymphocytes 78.6 20.0 - 05/27 [place] 40.0 /2017 [facility] HEMATOLOGY Platelet 213 133 - 450 05/27 [place] /2017 [facility] HEMATOLOGY MPV 8.5 7.4 - 10.4 05/27 [place] /2017 [facility] HEMATOLOGY MCHC 33.0 32.0 - 05/27 [place] 36.0 [facility] HEMATOLOGY RDW 16.4 11.5 - 05/27 [place] 14.5 [facility] HEMATOLOGY Hgb 12.4 14.0 - 05/27 [place] 18.0 [facility] HEMATOLOGY MCV 86.8 80.0 - 05/27 [place] 94.0 [facility] HEMATOLOGY Hct 37.4 42.0 - 05/27 [place] 54.0 [facility] HEMATOLOGY MCH 28.7 27.0 - 05/27 [place] 31.0 /2017 [facility] HEMATOLOGY WBC 56.8 3.7 - 10.4 05/27 Result /2017 Comment: [facility] Critical Result(s) called to Nadeem Ayala Rn at 05/27/2017 08:53 by Bry. Read back OK. HEMATOLOGY RBC 4.31 4.70 - 05/27 [place] 6.10 [facility] BLOOD BANK ABO/Rh A POS 05/27 [place] RESULTS /2017 [facility] BLOOD BANK Antibody Negative 05/27 [place] RESULTS Scrn (05/27/17 1:34 AM) [facility] BLOOD BANK Platelet Product available 05/27 [place] RESULTS product (05/27/17 1:25 AM) /2017 [facility] CHEM PANEL eGFR 49 05/27 Result [place] /2017 Comment: The [facility] eGFR is calculated using the CKD-EPI formula. In most young, healthy individuals the eGFR will be >90 mL/min/1.73m2 . The eGFR declines with age. An eGFR of 60-89 may be normal in some populations, particularly the elderly, for whom the CKD-EPI formula has not been extensively validated. Use of the eGFR is not recommended in the following populations:< br/>
Ariana viduals with unstable creatinine concentration s, including patients and those with serious co-morbid conditions.<b r/>
Patie nts with extremes in muscle mass or diet.

The data above are obtained from the National Kidney Disease Education Program (NKDEP) which additionally recommends that when the eGFR is used in patients with extremes of body mass index for purposes of drug dosing, the eGFR should be multiplied by the estimated BMI. CHEM PANEL Sodium Lvl 141 135 - 145 05/27 [place] CHEM PANEL Potassium 3.5 3.5 - 5.1 05/27 [place] Lvl [place] CHEM PANEL Chloride Lvl 107 95 - 109 05/27 [place] CHEM PANEL CO2 25 24 - 32 05/27 [place] CHEM PANEL Calcium Lvl 9.1 8.5 - 10.5 05/27 [place] CHEM PANEL Glucose Lvl 150 70 - 99 05/27 [place] CHEM PANEL BUN 25 7 - 22 05/27 [place] CHEM PANEL Creatinine 1.41 0.50 - 05/27 [place] Lvl 1.40 [place] CHEM PANEL AGAP 12.5 10.0 - 05/27 [place] 20.0 [place] HEMATOLOGY Bands 0.0 0.0 - 11.0 05/27 [place] HEMATOLOGY RBC Morph Normal 05/27 [place] (05/26/17 11:22 PM) [place] HEMATOLOGY Atypical 0.0 <=0.0 % 05/27 [place] Lymphs [place] HEMATOLOGY Smudge Few 05/27 [place] HEMATOLOGY Large Plt Slight 05/27 [place] HEMATOLOGY Tot Cell Ct 100 05/27 [place] HEMATOLOGY Plt Morph Normal 05/27 [place] (05/26/17 11:22 PM) [place] HEMATOLOGY INR 1.13 0.85 - 05/27 [place] 1.17 [place] HEMATOLOGY PT 14.5 12.0 - 05/27 [place] 14.7 [place] HEMATOLOGY PTT 33.1 22.9 - 05/27 [place] 35.8 [place] CHEM PANEL eGFR 54 09/19 [facility] Comment: The Medical eGFR is Center calculated using the CKD-EPI formula. In most young, healthy individuals the eGFR will be >90 mL/min/1.73m2 . The eGFR declines with age. An eGFR of 60-89 may be normal in some populations, particularly the elderly, for whom the CKD-EPI formula has not been extensively validated. Use of the eGFR is not recommended in the following populations:< br/>
[place] viduals with unstable creatinine concentration s, including patients and those with serious co-morbid conditions.<b r/>
Patie nts with extremes in muscle mass or diet.

[...] collection date/time: 16:41:00. CHEM PANEL AGAP 15.8 10.0 - 09/19 Result [facility] 20. Comment: Medical Collection Center date/time has been modified to: 15:35:00. Previous collection date/time: 16:41:00. CHEM PANEL Calcium Lvl 9.9 8.5 - 10.5 09/19 Result Comment: Medical Collection Center date/time has been modified to: 15:35:00. Previous collection date/time: 16:41:00. CHEM PANEL CO2 27 24 - 32 09/19 Result Comment: [facility] Collection Center date/time has been modified to: 15:35:00. Previous collection date/time: 16:41:00. CHEM PANEL Chloride Lvl 105 95 - 109 09/19 Result [place]andre Comment: Medical Collection Center date/time has been modified to: 15:35:00. Previous collection date/time: 16:41:00. CHEM PANEL Glucose Lvl 91 70 - 99 09/19 Result Comment: [facility] Collection Center date/time has been modified to: 15:35:00. Previous collection date/time: 16:41:00. CHEM PANEL BUN 18 7 - 22 09/19 Result [facility] Comment: Medical Collection Center date/time has been modified to: 15:35:00. Previous collection date/time: 16:41:00. CHEM PANEL Sodium Lvl 144 135 - 145 09/19 Result [facility] Comment: Medical Collection Center date/time has been modified to: 15:35:00. Previous collection date/time: 16:41:00. CHEM PANEL Creatinine 1.31 0.50 - 09/19 Result [facility] 1.40 Comment: Medical Collection Center date/time has been modified to: 15:35:00. Previous collection date/time: 16:41:00. CHEM PANEL Potassium 3.8 3.5 - 5.1 09/19 Result [facility] Comment: Medical Collection Center date/time has been modified to: 15:35:00. Previous collection date/time: 16:41:00. Pathology Reports No Data Provided for This Section Diagnostic Reports Report Value Date Source Bladder US Bladder Ultrasound 05/27/2017 [facility] History: Hematuria - looking for blood clots Technique: Longitudinal and transverse grayscale images of the bladder were obtained using real-time ultrasound. Findings: Bladder demonstrates a alma l partially filled configuration. Saba catheter is noted. Irregular echogenic areas noted in the bladder are suggestive of blood clots. It measures 3 x 2.7 cm in size. Leonardo red to prior examination decrease in size of the blood clot is noted. Impression: Incompletely filled bladder with a Saba catheter and suggestion of a blood clot, smaller in size compared to earlier study. Bladder US EXAM: 05/27/2017 [facility] Urinary bladder ultrasound. CLINICAL HX: Hematuria. Saba catheterization. Age: 72 years. Gender: Male. TECHNIQUE: Grayscale and Doppler sonogram of the urinary bl adder. COMPARISON: None. FINDINGS: Urinary bladder: -- Lumen: 7.8 x 7.7 x 5.8 cm heterogeneous, round mass within the bladder lumen. Saba catheter balloon is seen within this mass. -- Ureteral jets: Not evaluated. -- Volume: Prevoid 295 cc, postvoid not measured . Other: None. IMPRESSION: 1. Large intraluminal bladde r mass which likely represents hematoma. Other differential considerations include infectious process (such as fungal) and neoplasm. Brain wo contrast MRI EXAM: Brain wo contrast MRI 12/28/2016 [facility] PROVIDED CLINICAL HISTORY: R53.1, Weakness, M48.02, Spinal stenosis, cervical region - . TECHNIQUE: Multi-sequence, m ulti-planar MR of the brain without gadolinium contrast. COMPARISON: No relevant prior exams available at the time of interpretation. FINDINGS: BRAIN: -- Two subcentimeter ovo id foci of [id number] restricted diffusion, consistent with acute lacunar infarcts, involving the right posterior frontal geren radiata. No large vascular territorial transcortical infarct. Ol d lacunar infarcts in the bilateral green radiata and the left thalamus. -- Extensive confluent f oci of abnormally increased T2 and FLAIR signal throughout the supratentorial subcortical and periventricular deep white matter bilaterally, and within the brainstem, non-spe cific but most commonly due to chronic small ves sameer ischemic disease. -- No intracranial hemor rhage or other fluid collection. Approximately 2.6 cm arachnoid cyst along the right middle cranial fossa. No other intracranial mass. No cerebellar tonsillar ectopia. Promi nent but age-consistent global parenchymal volum e loss. VENTRICLES / CISTERNS / SHIF T: No hydrocephalus. No significant effacement of the [...] No significant mastoid sig nal abnormality. 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 IMPRESSION: Acute lacunar infarcts in the right green radia ta. No large vascular territorial infarct. No intracranial mass or hemorrhage. Chronic lacunar infarcts. Chronic microangiopathic ischemic gliosis. This exam was performed on a n outpatient basis. On 12/28/2016 4:30 PM RESEARCH ASSOCIATE PROFESSOR, a call was placed to to notify the referring clinician's office that this exam has important findings p otentially requiring urgent follow-up and to direct their attention to the report for details. There was no response after several attempts, and no voicemail option was available. Several unsuccessful attempts were subsequently m pierce to reach the patient at the provided number of [phone]. A generic message was left on the voicemail instructing the patient to call his referring physician&apos ;s office for immediate furt her instructions and to seek emergent care if symptomatic. SL: MERLE Spine cervical wo CERVICAL SPINE MRI WITHOUT CONTRAST 12/08 AT 1503 HOURS. 12/28/2016 [facility] contrast MRI CLINICAL HISTORY: Weakness. Unable to walk for one week. No reported injury. Cervical canal stenosis?. COMPARISON STUDIES: Brain MRI from the same day. History of bladder cancer. ADMINISTERED CONTRAST: None. FINDINGS: Multiplanar T1, T2 and STIR sequences of the cervical spine were obtained without IV contrast. The cervical and visualized upper thoracic spinal cord shows normal signal intensity. No gross fo juju abnormalities are identi fied in the visualized posterior fossa. The prevertebral soft tissues are unremarkable. Numerous prominent bilateral anterior and posterior triangle lymph nodes are seen with the dominant right level 2 lymph node measuring 11 mm intra-axial diameter. Mildly prominent bilateral supraclavicular adenopathy. C2-C3: Broad-based 2 mm post erior central disc bulge with diffuse disc desiccation. Mid sagittal AP spinal canal diameter is 11 mm. Patent neural foramina. C3-C4: Moderate to severe de generative disc disease with broad-based 2-3 mm posterior central disc bulge mildly indenting the thecal sac anteriorly. Mid sagittal AP spinal canal diameter is 9 mm in the presence of posterior facet osteophytes. Mild right foraminal stenosis with patent left neural foramen. C4-C5: Moderate to severe de generative disc disease with broad-based 2-3 mm posterior central and bilateral paracentral disc bulge/uncovertebral osteophyte complex indenting the thecal sac anteriorly. M id sagittal AP spinal canal diameter is 11 mm. Mild to moderate bilateral foraminal stenosis. C5-C6: Moderate to severe de generative disc disease with broad-based 2-3 mm posterior central, bilateral paracentral foraminal disc bulge/uncovertebral osteophyte complex indenting the thecal anteriorly . Mid sagittal AP spinal can al diameter is 12 mm. Mild right foraminal stenosis with patent left neural foramen. C6-C7: Severe degenerative d isc disease with broad-based 2-3 mm posterior central bilateral paracentral disc bulge/uncovertebral osteophyte complex indenting the thecal sac anteriorly. Broad-based 3 mm left foraminal disc herniati on. Mid sagittal AP spinal canal diameter is 9 mm in the presence of posterior facet osteophytes. Mild right foraminal stenosis with patent left neural foramen. C7-T1: Diffuse disc desiccat ion with broad-based to-3 mm posterior central bilateral paracentral disc bulge indenting the thecal sac appear to. Mid sagittal AP spinal canal diameter is 8 mm in the prese nce of facet arthropathy. Patent neural foramina . IMPRESSION: 1. Moderate to severe multil evel degenerative disc disease and uncovertebral joint hypertrophy with multilevel posterior disc bulges causing mild to moderate cervical canal stenosis at C3-C4, C6-C7 and C7-T1. 2. Broad-based 3 mm left foraminal disc herniati on at C6-C7. 3. No spinal cord edema, compression or myelomal acia. 4. Bilateral anterior/chief medical physicist ior triangle and supraclavicular adenopathy, reactive or neoplastic. Correlate with history. 5. 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 SL: [id number] Spine Thoracic wo Patient Name: IDANIA TERRY 08/11/2016 [facility] contrast MRI : 1945; Age: 71 years y/o Male MR: [id number] Study: Spine Thoracic wo contrast MRI 08/11/2016 5 :03 PM CDT Clinical Indication: G95.9 Disease of spinal cord, unspecified - G95.9 Disease of spinal cord, unspecified; Comparison: None TECHNIQUE: Multiplanar T1, T 2, STIR weighted noncontrast MRI of the thoracic spine is performed on the 1.5 Brionna magnet. FINDINGS: ALIGNMENT AND GENERAL SURVEY : There is normal alignment of the thoracic spine. Scattered vertebral body hemangiomas in the T8, T9, and T11 vertebral bodies are seen. No vertebral body marrow edema is no brina. There are no fractures or compression deformities. The thoracic spine posterior elements are normal. The costovertebral junctions are unremarkable. SPINAL CORD: The thoracic sp ine spinal cord is normal in size and signal. The CSF space is unremarkable. The conus medullaris ends at the thoracolumbar junction. DISK SPACES: The discs are d esiccated throughout the spine. 3 mm central disc protrusion at T6-T7 is seen. Mild facet arthrosis in the lower thoracic spine is seen. There is no significant central or foraminal stenosis. IMPRESSION: 1. No focal abnormality of the thoracic spinal c ord. 2. Scattered degenerative ch anges of the thoracic spine without spinal canal stenosis or neural foraminal narrowing. SL: [id number] Spine cervical wo Study: Spine cervical wo contrast MRI 08/12/19 17 [facility] contrast MRI Clinical Indication: G95.9 Disease of spinal cord, unspecified - G95.9 Disease of spinal cord, unspecified Comparison: None TECHNIQUE: Multiplanar, mult isequence magnetic resonance imaging of the cervical spine was performed without the administration of intravenous gadolinium contrast. FINDINGS: There is normal alignment of the cervical spine. No focal marrow signal abnormality is present. The prevertebral soft tissues, atlanto-dental interspace, and craniocervical junction are within normal li mits. The visualized brainst em region is unremarkable. The cervical spinal cord is normal in size and signal. The discs are desiccated thr oughout cervical spine. Moderate-severe multilevel disc height loss from C4-C5 through C6-C7 is seen. There is mild disc height loss at C3-C4. DISC SPACES: C2-C3: Negative for signific ant disc bulge or protrusion. Severe right and mild left facet arthrosis is seen. There is mild right neural foraminal narrowing without spinal canal stenosis. C3-C4: Moderate to large cir cumferential disc osteophyte complex is seen. Moderate-severe facet [...] bilate ral neural foraminal narrowing, right greater th an left. C6-C7: Large circumferential disc osteophyte complex with superimposed uncovertebral arthrosis is seen. Facets are intact. There is moderate spinal canal stenosis with the thecal sac measuring 8 mm AP d imension. Severe bilateral neural foraminal narr owing is present. C7-T1: 2 mm diffuse disc bul ge is seen. Moderate-severe facet arthrosis, right greater than left, is seen. There is no spinal canal stenosis. Mild bilateral neural foraminal narrowing is noted, right greater than left. IMPRESSION: 1. Multilevel degenerative c hanges throughout cervical spine, most notable at C6-C7 with moderate spinal canal stenosis and severe bilateral neural foraminal narrowing. 2. Severe bilateral neural foraminal narrowing f rom C3-C4 through C5-C6. 3. No focal signal at the body of the cervical s keith cord. SL: [id number] Spine lumbar flex/ext EXAM: XR LUMBAR SPINE 3 VIEWS 07/20/2016 TYRAD Tyree 2 view DX DATE: 07/20/2016 10:50 AM CDT INDICATION: - M54.5 Low back pain / M54.16 Radiculopathy, lumbar region COMPARISON: None TECHNIQUE: Lateral views in neutral position, flexion and extension, of the lumbar spine FINDINGS: 5 lumbar type, non-rib bearing vertebr al bodies are present. Mild anterolisthesis L4 over L5 with around 5 mm offset. Alignment is otherwise intact. Vertebral body heights and disc spaces are intact. Flexion extension views show no evidence of instability with persistence of the 5 mm offset . Severe facet arthropathy L4-5 and L5-S1. Moderat e facet arthropathy L3-4. No soft tissue abnormality is identified. IMPRESSION: 1. Grade 1 anterolisthesis L 4 over L5 with 5 mm offset at the stable on the flexion extension views. 2. Severe facet arthropathy L4-5 and L5-S1 and t o lesser degree L3-4. Consultation Notes No Data Provided for This Section Discharge Summaries No Data Provided for This Section History and Physicals No Data Provided for This Section Vital Signs Vital Sign Value Date Comments Source Heart Rate 63 05/29/2017 [place] Temperature Oral (F) 97.8 F 05/29/2017 [facility] [place] Resp[place] Rate 18 05/29/2017 [facility] [place] Systolic (mm Hg) 145 05/29/2017 [facility] [place] Diastolic (mm Hg) 83 05/29/2017 [facility] [place] Respitory Rate 18 05/29/2017 [facility] [place] Heart Rate 64 05/29/2017 [place] Temperature Oral (F) 97.4 F 05/29/2017 [place] Systolic (mm Hg) 156 05/29/2017 [facility] [place] Diastolic (mm Hg) 86 05/29/2017 [facility] [place] Respitory Rate 18 05/29/2017 [facility] [place] Temperature Oral (F) 98 F 05/29/2017 [place] Heart Rate 59 05/29/2017 [facility] [place] Systolic (mm Hg) 158 05/29/2017 [facility] [place] Diastolic (mm Hg) 69 05/29/2017 [facility] [place] BMI Calculated 27.32 05/27/2017 [place] Height 177.8 cm 05/27/2017 [place] Weight 86.364 05/27/2017 [facility] [place] Weight 89.545 05/27/2017 [facility] [place] Weight 90.909 12/28/2016 [facility] BMI Calculated 28.76 12/28/2016 [facility] Height 177.8 cm 12/28/2016 [facility] Heart Rate 74 12/28/2016 [facility] Systolic (mm Hg) 163 12/28/2016 [facility] Diastolic (mm Hg) 82 12/28/2016 [facility] Temperature Oral (F) 97.8 F 12/28/2016 [facility] Heart Rate 89 09/24/2016 [facility] Temperature Oral (F) 97.5 F 09/24/2016 [facility] Respitory Rate 18 09/24/2016 [facility] juju Center Systolic (mm Hg) 176 09/24/2016 [facility] dical Center Diastolic (mm Hg) 83 09/24/2016 [facility] 84 09/24/2016 [facility] Systolic (mm Hg) 143 09/24/2016 [facility] dical Center Diastolic (mm Hg) 73 09/24/2016 [facility] Respitory Rate 17 09/24/2016 [facility] Temperature Oral (F) 98.5 F 09/24/2016 [facility] Temperature Oral (F) 98.1 F 09/24/2016 [facility] Systolic (mm Hg) 146 09/24/2016 [facility] Diastolic (mm Hg) 79 09/24/2016 [facility] Respitory Rate 18 09/24/2016 [facility] Heart Rate 70 09/24/2016 [facility] [place] BMI Calculated 29.48 09/22/2016 [facility] Weight 93.182 09/22/2016 [facility] Height 177.8 cm 09/22/2016 [facility] [place] Weight 90.455 09/19/2016 [facility] [place] BMI Calculated 28.61 09/19/2016 [facility] Height 177.8 cm 09/19/2016 [facility] Encounters Location Location Encounter Encounter Reason Attending ADM [place] Stat us Source Details Type Number For Provider Date Date Visit Outpatient [id number] TJ ALICIA 07[facility]20 [facility] Outpt Diag [id number] Tj Alicia 07/20 07/21 [facility] Outpt Diag [id number] Tj Alicia 08/11 08/12 [facility] [id number] TJ ALICIA 08/17 [facility] [place] [facility] [id number] TJ ALICIA 09/19 [facility] [place] [facility] [id number] TJ ALICIA 09/19 [facility] [place] [facility] [id number] TJ ALICIA 09/22 [facility] Observation [id number] Tj Alicia 09/22 09/24 [facility] Outpatient [id number] ISRA[place] 10/07 [facility] Outpatient [id number] TJ ALICIA 11/14 [facility] Phone [id number] 12/23 12/25 [facility] Message Neuro [facility] Spine Phone [id number] 12/26 12/28 [facility] Outpatient [id number] TJ MICHEL 12/28 [facility] Outpatient [id number] Javi 12/28 12/29 [facility] 8 A[facility]ush Neuro [facility] Outpt Diag [id number] Rufina 12/28 12/29 [facility] 0 [facility] Sp[facility] Phone [id number] 01/02 01/04 [facility] Message Neuro [facility] Phone [id number] 01/03 01/05 [facility] Message Neuro [facility] Spine Phone [id number] 01/16 01/18 [facility] Message Neuro Outpatient [id number] TJ MICHEL 02/13 [facility] [place] [facility] Ambulatory [id number] Javi 02/13 02/13 [facility] Pre-Reg 7 Aayush Neur o MNA Spine Phone [id number] 03/15 03/17 [facility] TM Message Neuro [facility] Observation [id number] Chata 05/27 05/29 [facility] [address] [place] [facility] Sp[facility] Phone [id number] 09/06 09/08 [facility] Message Neuro Procedures Procedure Code Date Perfomer Comments Source Bladder irrigation, 45500 05/28/2017 [place] simple, lavage and/or instillation Bladder operation [id number] [facility], [facility]CIOUS [place], [facility], [facility], [place] Drainage [id number] [facility], [facility] [place], [facility], [facility] [place] Lymph node [id number] [facility] operation Neuro,[facility], PRECIOUS [place], [facility], [facility] [place] Assessment and Plan Assessment and Plan Date Source Extracted from:Title: Progress Note * 05/29/2017 DARREN Billy Author: Colton Angel MD Date: 05/29/17 Impression and Plan Gross hematuria with clot retention afte r urodynamics at [facility]. Patient has been on aspirin and Plavix, [...] a little later today and reassess. Extracted from:Title: Urology consult Author: Colton Angel MD Date: 05/27/17 Impression and Plan Gross hematuria after urodynamics at [facility]. Patient was on aspirin and Plavix at that time, and likely had traumatic bleeding. His H&H is relatively stable, and I evac uated a large amount of clot at this poi nt. I have reordered a second ultrasound to assess for persistent clot. Should his clot burden be significantly improved, we will continue bladder irrigation an d hand irrigation through the day and re assess tomorrow. Should he have a persistent large clot, he may require cystoscopy with clot evacuation in the operating room. I splinted the patient and his wi fe that we will need to wait for his asp irin Plavix to wear off in order for all of his his hematuria to resolve. Thank you for allowing me to participate in this patient's care. I will follow this patient with you during his hospitalization. Plan of Care No Data Provided for This Section Social History Social History Date Source Social History TypeResponse 05/27/2017 [facility] Alcohol Current, Frequency: 1-2 times per year. Smoking Status Former smoker; Type: Cigars; Lives with someone who smokes; Cigarette Smoking Last 365 Days Yes; Reg Smoking Cessation Counseling No entered on: 05/27/17 Social History TypeResponse 05/27/2017 DARREN maldonado Alcohol Current, Frequency: 1-2 times per year. Smoking Status Former smoker; Type: Cigars; Lives with someone who smokes; Cigarette Smoking Last 365 Days Yes; Reg Smoking Cessation Counseling No entered on: 05/27/17 Social History TypeResponse 09/19/2016 [facility] Alcohol Current, Frequency: 1-2 times per year. Smoking Status Current every day smoker; Type: Cigars; Lives with someone who smokes; Cigarette Smoking Last 365 Days Yes; Reg Smoking Cessation Counseling No Social History TypeResponse 09/19/2016 [facility] Alcohol Current, Frequency: 1-2 times per year. Smoking Status Current every day smoker; Type: Cigars; Lives with someone who smokes; Cigarette Smoking Last 365 Days Yes; Reg Smoking Cessation Counseling No Social History TypeResponse 07/21/2016 [facility] Smoking Status Current every day smoker; Lives with yesenia eone who smokes; Cigarette Smoking Last 365 Days Yes; Reg Smoking Cessation Counseling No Social History TypeResponse 07/21/2016 [facility] [place] Smoking Status Current every day smoker; Lives with yesenia eone who smokes; Cigarette Smoking Last 365 Days Yes; Reg Smoking Cessation Counseling No Family History No Data Provided for This Section Advance Directives No Data Provided for This Section Functional Status No Data Provided for This Section
--- OUTSIDE RECORDS SUMMARY | 2019-07-02 13:46 | XMS REPORT ---
:1945 Author Organization [facility] t Address [address] [place] [address] Care Team Providers Name Role Phone Aayush SCHMIDT Primary Care Physician Doctor Unassigned, Name Attending Clinician Unavailable SHABANA HANNAH Attending Clinician Unavailable Luciana Carlson Attending Clinician Gisella Alicia Attending Clinician MICHAEL FROST Attending Clinician Unavailable Ingrid Askew Attending Clinician SHABANA HANNAH Admitting Clinician Unavailable Luciana Carlson Admitting Clinician MICHAEL FROST Admitting Clinician Unavailable Gisella Alicia Admitting Clinician Problems Condition Condition Condition Status Onset Resolution Last Treating Co mments Source Name Details Category Date Date Treatment Clinician Date LUMBAR Diagnosis Active 2016-10-17 ST[place] - 14:47:00 [place] LUMBAR 00:00: Medical STENOSIS 00 Center Active 08/19/2016 [facility] M54.16 - Diagnosis Active 2016-07-20 Diana LANG "RADICULOP - 12:52:00 Herm Dilcia Dorman4.16 - 00:01: LUMBAR "RADICULOP 00 REGION" ATHY, LUMBAR REGION" Active 07/20/2016 DARREN Clements Mitral Mitral Disease Active [place] valve valve 06-06 Methodi insufficie insufficie 00:00: st ncy ncy 00 Panlobular Panlobular Disease Active H jordan emphysema emphysema 06-06 Meth rosario 00:00: st 00 Peripheral Peripheral Disease Active H jordan vascular vascular 06-06 Method i disease disease 00:00: st 00 Pitting Pitting Disease Active [place] edema edema 06-06 Methodi 00:00: st 00 Myelopathy Myelopathy Disease Active [place] of of 06-06 Methodi cervical cervical 00:00: st spinal spinal 00 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 radiculopa thy thy Cerebrovas Cerebrovas Disease Active [place] cular cular 06-06 Methodi accident accident 00:00: st (CVA) (CVA) 00 SVT SVT Disease Active [place] (supravent (supravent 06-06 Me thodi ricular ricular 00:00: st tachycardi tachycardi 00 a) a) 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 00:00: st 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) Hematoma Problem Resolve 2018-03-27 Mi cathleen (disorder) d 14:50:09 Neur o, Hematoma MH (disorder) [facility], Resolved PRECIOUS Clements , OPID [place]an Problem d, PRECIOUS Adkins 03/27/2018 Rehab, [place] [facility], PRECIOUS Clements, PRECIOUS Chavez,M OPID [facility], [place] Hypertensi Problem Active 2018-03-27 M ischer ve 14:50:09 Neuro, disorder, systemic Hy[place] arterial ve Medical (disorder) disorder, Delia ter, systemic OPID arterial Tyree (disorder) , OPID [place] Active d, OPID [facility], Problem [place] 03/27/2018 [facility], PRECIOUS Clements, PRECIOUS Chavez,M H OPID [facility], [place] Malignant Problem Resolve 2018-03-27 M ischer tumor of d 14:50:09 Neuro, 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[facility], bladder OPID (disorder) Dieudonne n , OPID Resolved [place] d, OPID [facility], Problem MH [place] 03/27/2018 Luc[facility] Neuro,[facility], PRECIOUS Clements, Diana Conway PRECIOUS [facility], [place] Obstructiv Problem 2017-2017-06-01 2017-06-01 MH e and 4-20 02:24:06 02:24:06 [place] reflux 05:00: Land uropathy, Obstructiv 00 unspecifie e and d reflux uropathy, unspecifie d 05/26/2017 06/01/2017 [place] Hematuria, Problem 2017-2017-06-01 2017-06-01 unspecifie - 02:24:06 02:24:06 Gray gar d 05:00: Land Hematuria, 00 unspecifie d 05/26/2017 06/01/2017 [place] Allergies, Adverse Reactions, Alerts Allergy Allergy Status Severity Reaction(s) Onset Inactive Treating Comm ents Source Name Type Date Date Clinician [place] Propensi Active Swelling 2016-02 Lip and [place] ty to 04-01 tongue Methodi adverse 00:00: swelling st reaction 00 s to drug Clonidin Propensi Active Severe 2016-02 Makes him Juana ston e ty to 03-31 extremely Methodi adverse 00:00: depressed st reaction 00 s to drug Pseudoep Propensi Active Other (See 2016-02 Irregular Leon hedrine ty to Comments) 03-31 heart Method i adverse 00:00: beat st reaction 00 s to drug Family History Family Member Diagnosis Comments Start Date Stop Date Source Natural father Cancer [place] [facility] Natural father Hypertension [place] [facility] Natural mother Arthritis [place] [facility] Social History Social Habit Start Date Stop Date Quantity Comments Source History of tobacco Cigarette Smoker [place] use [facility] Sex Assigned At [place] [facility] Cigarettes smoked 2017-04-24 2017-04-24 [place] current (pack per 00:00:00 00:00:00 Methodi ) - Reported Alcohol intake 2017-04-24 2017-04-24 Current drinker Martinenedelia on 00:00:00 00:00:00 of alcohol [facility] (finding) Social History 2016-09-19 2016-09-19 [facility] Jaquelin isaac 20:24:11 20:24:11 [facility] Alcohol Comment 2016-05-25 2016-05-25 [facility] 00:00:00 00:00:00 [facility] Smoking Status Start Date Stop Date Source Current every day smoker 2017-04-24 00:00:00 Ju[place] brunnerrosanne [facility] Medications Ordered Filled Start Stop Current Ordering Indication Dosage Frequency Signature Comments Components Source Medication Medication Date Date Medication? Clinician (SIG) Name Name Pretty No Notes: MH Sodium 50 4-23 (Same as Sugar MG / 22:00: Senokot-S) Land senno, Equiv. to CARE HOME 8.6 MG Rachelle-Colac Oral Tablet e. Docusate Yes 1 tab, PO, MH Sodium 50 4-23 BID, X 14 Sugar MG / 17:38: day, # 28 [place] sennosides, 00 tab, 0 CARE HOME 8.6 MG Refill(s), Oral Tablet Pharmacy: [facility] [id number] ciprofloxac Yes 500 mg = 1 MH in 500 mg 4-23 tab, PO, Sugar oral tablet 17:38: Q12H, X 7 L and 00 day, # 14 tab, 0 Refill(s), Pharmacy: [facility] [id number] Cipro No Notes: May MH 4-23 interfere Sugar 14:00: w/enteral feedings - Take 1 hr before or 2 hrs after antacids, dairy pdt & minerals. On empty stomach. Normal No Notes: For MH Saline for 4-23 irrigation Sug ar Irrigation 02:30: only. Sodium No Notes: For MH Chloride 4-23 irrigation Sugar 02:22: only. Diltiazem No Notes: MH Hydrochlori 4-22 (Same as: Sug ar de ER 21:00: Cardizem Land CD) Do Not Crush Before meals. 24 HR Yes 240 mg = 1 MH Diltiazem 4-22 cap, PO, [place] Hydrochlori 15:24: Daily, 0 La nd de 240 MG 00 Refill(s) Extended Release Capsule [Cartia] clopidogrel No 75 mg = 1 M H 75 MG Oral 4-22 tab, PO, Sugar Tablet 15:24: Daily, 0 Land [Plavix] 00 Refill(s) Aspirin No 81 mg, 0 MH 4-22 Refill(s) Sugar 15:24: Land 00 nebivolol Yes 10 mg = 1 MH 10 MG Oral 05-28 tab, PO, [place] Tablet 15:24: Daily, 0 Land [Bystolic] 00 Refill(s) Bystolic No Notes: 05-28 (same as: [place] 14:00: Bystolic) Land Crestor No Notes: 05-28 (Same As: [place] 02:00: Crestor) Land Docusate No Notes: 05-27 (Same as: [place] 14:00: Colace) Land (Do Not Crush) Lisinopril No Notes: 05-27 (Same as: [place] 14:00: Prinivil, Land Zestril) Clonidine No Notes: Hydrochlori 05-27 (Same As: Sug ar de 0.1 MG 14:00: Catapres) Yogesh d Oral Tablet 00 Hydralazine No Notes: 05-27 (Same as: [place] 09:19: Apresoline Land ) Push over 5 minutes Cataflam No 50 mg = 1 05-27 tab, PO, Sugar 08:46: TID, PRN pain, # 30 tab, 0 Refill(s) Acetaminoph No Notes: Do M H en 05-27 not exceed Sugar 07:05: 4 gm/day. Land (Same as: Tylenol) Acetaminoph No Notes: en 325 MG / 05-27 (Same as: Sug ar Hydrocodone 07:05: [place] Bitartrate 00 325/5) Do 5 MG Oral not exceed Tablet 4gm/day of acetaminop hen. Morphine No Notes: 05-27 (Same Sugar 07:05: as:MORPhin Land 00 e Sulfate) Ondansetron No Notes: 05-27 (Same as: [place] 07:05: Zofran) Land 00 MEDICATION WASTE Product Size: 4 mg Product Wasted: ___ mg Irrigation No Notes: For M H w/ Normal 05-27 irrigation Suga r Saline 07:00: only. Land 00 Sodium No Notes: For Chloride 05-27 irrigation Sugar 0.0769 07:00: only. Land MEQ/ML 00 Irrigation Solution Sodium No 250 mL, Chloride 05-27 Rate: To Sugar 0.9% 06:25: prime line Land (titrate) 00 and flush 250 mL remaining blood products., Dosing Weight 89.545, kg, Route: IV, Total Volume: 250, Start Date: 05/27/17 1:25:00 CDT, Duration: 30 day, Stop date: 06/26/17 1:24:00 CDT, Replace Every: 24 hr Irrigation No Notes: For M H w/ Normal 05-27 irrigation Suga r Saline 05:58: only. Land Irrigation No Notes: For M H w/ Normal 05-27 irrigation [place] Saline 04:45: only. Land Saline No Notes: Flush 0.9% 05-27 (Same as: Suga r 04:12: BD Land Posiflush) Phenazopyri No 100 mg = 1 MH dine 05-27 tab, PO, [place] hydrochlori 03:10: TID, PRN La nd de 100 MG 00 Dysuria, X Oral Tablet 2 day, # 6 [Pyridium] tab, 0 Refill(s) Acetaminoph No 1 - 2 tab, en 300 MG / 05-27 PO, Q4H, Suga r Codeine 03:08: PRN Pain, Land Phosphate 00 X 2 day, # 60 MG Oral 12 tab, 0 Tablet Refill(s) [Tylenol with Codeine #4] Acetaminoph No 2 tab, MH en 325 MG / 05-27 Route: PO, Gray gar Hydrocodone 01:45: Drug Form: [place] Bitartrate 00 TAB, 5 MG Oral Dosing Tablet Weight [Athol 89.545, 5/325] kg, ONCE, STAT, Start date: 05/26/17 20:45:00 CDT, Stop date: 05/26/17 20:45:00 CDT Morphine 2017-0 No 4 mg, MH 05-27 Route: Sugar 01:16: IVP, ONCE, Land 00 Dosing Weight 89.545, kg, Priority: STAT, Start date: 05/26/17 20:16:00 CDT, Stop date: 05/26/17 20:16:00 CDT Morphine No 4 mg, MH 4-21 Route: Sugar 00:36: IVP, ONCE, Land 00 Dosing Weight 89.545, kg, Priority: STAT, Start date: 05/26/17 19:36:00 CDT, Stop date: 05/26/17 19:36:00 CDT aspirin Yes Cerebral 81mg QD [place] (ECOTRIN) 3-19 infarction, Met hodi enteric 17:00: unspecified st coated 00 mechanism tablet 81 (HCC) mg clopidogrel Yes 75mg QD Take 75 mg Leon (PLAVIX) 75 3-19 by mouth Meth rosario mg tablet 15:18: daily. st 47 CARTIA XT Yes TK 1 C PO Ju[place] ston 240 mg 24 2-08 QD Methodi hr capsule 00:00: st 00 BYSTOLIC 10 Yes TK 1 T PO H [place] mg tablet 1-30 QD Methodi 00:00: st 00 diltiazem No Notes: DO 8-19 NOT CRUSH. [place] 13:38: Medical 00 Center Lisinopril No Notes: MH 8-18 (Same as: [place] 14:00: Prinivil, Medical 00 Zestril) [place] Famotidine Yes 20 mg = 1 MH 20 MG Oral 8-18 tab, PO, [place] Tablet 10:44: BID, # 20 Medica l 00 tab, 0 Center Refill(s) magnesium No 8.725 gm = citrate 8-18 150 ml, [place] 58.2 MG/ML 10:44: PO, Daily, M edical Oral 00 X 2 day, # Center Solution 300 mL, 0 Refill(s) Acetaminoph Yes 1 tab, PO, MH en 325 MG / 8-18 Q6H, PRN [place] Hydrocodone 10:44: for pain, M edical Bitartrate 00 X 14 day, Cent er 10 MG Oral # 90 tab, Tablet 0 [Athol Refill(s) 10/325] Methocarbam Yes 500 mg = 1 MH ol 500 MG 8-18 tab, PO, [place] Oral Tablet 10:44: Q8H, PRN Me dical [Robaxin] 00 Spasms, X Cente r 10 day, # 30 tab, 0 Refill(s) {21 Yes See (Methylpred 09-23 [place] nisolone 4 10:44: ns, PO, Medi juju MG Oral 00 Take by Center Tablet mouth as [Medrol]) } directed Pack on label., [Medrol # 1 Pack, Dosepak] 0 Refill(s) Flomax No Notes: 09-23 (Same As: [place] 06:28: Flomax) Medical 00 "Do Not Center Crush" Cefazolin No Notes: 09-23 (Same As: [place] 03:00: Ancef, Medical 00 Kefzol) Center Cefazolin FOR IV SET ONLY MEDICATION WASTE Product Size: 1000 mg Product Wasted: _0__ mg Saline No Notes: Flush 0.9% 09-23 (Same as: [place] 02:00: BD Medical 00 Posiflush) Center Dexamethaso No Notes: ne 09-22 Give with [place] 23:00: food. Medical 00 (Same As: Center Decadron) Famotidine No Notes: 20 MG Oral 09-22 (Same as: [place] Tablet 22:00: Pepcid) Medical 00 Center Docusate No Notes: 09-22 (Same as: [place] 22:00: Colace) Medical 00 (Do Not Center Crush) sennosides, No Notes: CARE HOME 09-22 (Same as: [place] 22:00: Senokot) Medical 00 Center Clonidine No Notes: Hydrochlori 09-22 (Same As: Javad as de 0.1 MG 22:00: Catapres) Med ical Oral Tablet 00 Center Ondansetron No Notes: 09-22 (Same as: [place] 21:37: Zofran) Medical 00 Center MEDICATION WASTE Product Size: 4 mg Product Wasted: ___ mg Naloxone No Notes: 09-22 Same as [place] 21:37: Narcan Medical 00 Center Flumazenil No Notes: 09-22 (Same as: [place] 21:37: Romazicon) Medical 00 Center Hydralazine No Notes: 09-22 (Same as: [place] 21:37: Apresoline Medical ) Push Center over 5 minutes Hydromorpho No Notes: ne 09-22 Same as: [place] 21:37: Dilaudid Medical Center Oxycodone No Notes: 09-22 (Same as: [place] 21:37: Roxicodone Medical ) Center Saline No Notes: Flush 0.9% 09-22 (Same as: [place] 21:11: BD Medical 00 Posiflush) Center Robaxin No Notes: 09-22 (Same [place] 21:11: as:Robaxin Medical ) Center Hydralazine No Notes: 09-22 (Same as: [place] 21:11: Apresoline Medical ) Push Center over 5 minutes Labetalol No 10 mg, 2 09-22 mL, Route: [place] 21:11: IVP, Drug Medical form: INJ, Center Q15Min, Dosing Weight 93.182, kg, PRN Hypertensi on, Start date: 09/22/16 16:11:00 CDT, Duration: 30 day, Stop date: 10/22/16 16:10:00 CDT Ondansetron No Notes: 09-22 (Same as: [place] 21:11: Zofran) Medical Center MEDICATION WASTE Product Size: 4 mg Product Wasted: ___ mg Acetaminoph No Notes: Do M H en 325 MG / 09-22 [place] Hydrocodone 21:11: 4gm/day of Medical Bitartrate [address] 10 MG Oral hen. Tablet (Same as: [Athol [place] 10/325] 325/10) Dilaudid No Notes: 09-22 Same as: [place] 21:11: Dilaudid Medical 00 Center Bisacodyl No Notes: 09-22 (Same As: [place] 21:11: Dulcolax, Medical 00 [place]-Lax) Center phenol No Notes: 09-22 Chlorasept [place] 21:11: ic [place] Medical 00 (Same as: Center Chlorasept ic, Sore Throat [place]) WASTE: F/P - Black; E - Municipal Trash Bin Melatonin 3 No Notes: MH MG Extended 09-22 (Same as: Javad as Release 21:11: Melatonin) Medi juju Tablet 00 Center Benadryl No Notes: MH 17 (Same as: [place] 21:11: Benadryl) Medical 00 Center ceFAZolin No Notes: MH 17 Same as: [place] 08:00: Ancef Medical 00 Center rosuvastati Yes TK 1 T PO [place] (CRESTOR) 04-27 QD Methodi 10 MG 00:00: st tablet 00 Vital Signs Vital Name Observation Time Observation Value Comments Source Heart Rate 2017-05-29 16:49:00 MH [place] Temperature Oral (F) 2017-05-29 16:49:00 97.8 F MH [place] Respitory Rate 2017-05-29 16:49:00 MH [place] Systolic (mm Hg) 2017-05-29 16:49:00 MH S ugar [place] Diastolic (mm Hg) 2017-05-29 16:49:00 MH [place] Respitory Rate 2017-05-29 13:20:00 MH [place] Heart Rate 2017-05-29 13:20:00 MH [place] Temperature Oral (F) 2017-05-29 13:20:00 97.4 F MH [place] Systolic (mm Hg) 2017-05-29 13:20:00 MH S ugar [place] Diastolic (mm Hg) 2017-05-29 13:20:00 MH [place] Respitory Rate 2017-05-29 08:34:00 MH [place] Temperature Oral (F) 2017-05-29 08:34:00 98 F MH [place] Heart Rate 2017-05-29 08:34:00 MH [place] Systolic (mm Hg) 2017-05-29 08:34:00 MH S ugar [place] Diastolic (mm Hg) 2017-05-29 08:34:00 MH [place] BMI Calculated 2017-05-27 08:46:00 MH [place] Height 2017-05-27 08:46:00 177.8 cm MH [place] Weight 2017-05-27 08:46:00 MH [place] Weight 2017-05-27 00:09:00 MH [place] Weight 2016-12-28 18:56:00 [facility] BMI Calculated 2016-12-28 18:56:00 Mische r Neuro Height 2016-12-28 18:56:00 177.8 cm [facility] Heart Rate 2016-12-28 18:56:00 [facility] Systolic (mm Hg) 2016-12-28 18:56:00 Misc her Neuro Diastolic (mm Hg) 2016-12-28 18:56:00 Mis terrence Neuro Temperature Oral (F) 2016-12-28 18:56:00 97.8 F [facility] Neuro Heart Rate 2016-09-24 12:50:00 [facility] Temperature Oral (F) 2016-09-24 12:50:00 97.5 F [facility] Respitory Rate 2016-09-24 12:50:00 [facility] Systolic (mm Hg) 2016-09-24 12:50:00 [facility] Diastolic (mm Hg) 2016-09-24 12:50:00 [facility] Heart Rate 2016-09-24 08:43:00 [facility] Systolic (mm Hg) 2016-09-24 08:43:00 [facility] Diastolic (mm Hg) 2016-09-24 08:43:00 [facility] Respitory Rate 2016-09-24 08:43:00 [facility] Temperature Oral (F) 2016-09-24 08:43:00 98.5 F [facility] Temperature Oral (F) 2016-09-24 04:44:00 98.1 F [facility] Systolic (mm Hg) 2016-09-24 04:44:00 [facility] Diastolic (mm Hg) 2016-09-24 04:44:00 [facility] Respitory Rate 2016-09-24 04:44:00 [facility] Heart Rate 2016-09-24 04:44:00 [facility] BMI Calculated 2016-09-22 15:39:00 [facility] Weight 2016-09-22 15:39:00 [facility] Height 2016-09-22 15:39:00 177.8 cm [facility] Weight 2016-09-19 20:20:00 [facility] BMI Calculated 2016-09-19 20:20:00 [facility] Height 2016-09-19 20:20:00 177.8 cm [facility] Procedures Procedure Date / Time Performed Performing Clinician Sourc e Bladder irrigation, 2017-05-28 16:15:00 [place] simple, lavage and/or instillation Bladder operation [facility], [facility], PRECIOUS Clements, PRECIOUS Chavez, OPI Marcio [facility], [place] [facility], [facility], PRECIOUS Clements, PRECIOUS Chavez, OPI D [facility], [place] Lymph node operation [facility] Julio ro, [facility], PRECIOUS Clements, PRECIOUS Chavez, OPI D [facility], [place] Plan of Care Planned Activity Planned Date Details Comments Source Future Scheduled 2019-09-07 INFLUENZA VACCINE [place] [facility] Test 00:00:00 [code = INFLUENZA VACCINE] Future Scheduled 2010 65+ PNEUMOCOCCAL [place] [facility] Test 00:00:00 VACCINE (1 of 2 - PCV13) [code = 65+ PNEUMOCOCCAL VACCINE (1 of 2 - PCV13)] Future Scheduled 1995 COLONOSCOPY SCREENING Ho [facility] Test 00:00:00 [code = COLONOSCOPY SCREENING] Future Scheduled 1995 SHINGLES VACCINES (#1) H [facility] Test 00:00:00 [code = SHINGLES VACCINES (#1)] Encounters Start End Encounter Admission Attending Care Care Encounter Source Date/Time Date/Time Type Type Clinicians Facility Department ID 2018-10-16 2018-10-16 Orders Doctor IRVIN [id number] 00:00:00 00:00:00 Only Unassigned, [place] [id number] [place] [facility] [id number] 2018-09-10 2018-09-10 Orders Doctor IRVIN [id number] 00:00:00 00:00:00 Only Unassigned, [place] [id number] [place] [facility] [id number] 2017-09-06 2017-09-08 Phone MHIEALT [facility] [id number] Mischer 18:27:00 04:59:59 [facility] 13 Julio ro 2017-09-06 2017-09-07 Outpatient [facility] [id number] 13:27:00 23:59:59 13 2017-05-27 2017-05-29 Observatio MHIEALT [facility] [id number] 00:05:00 21:01:00 rosanne Clements Sugar [place] 2017-05-26 2017-05-29 Outpatient DARREN CarlsonSL MHSL [id number] 19:05:00 16:01:00 Chata Chowdhury 2017-03-15 2017-03-17 Phone MHIEALT [facility] [id number] Mischer 22:21:00 05:59:59 Message Clinic [facility] 12 [facility] 2017-03-15 2017-03-16 Outpatient MHMISCHER MHMISCHER [id number] 16:21:00 23:59:59 12 2017-02-13 2017-02-13 Ambulatory MHIEALT [facility] [id number] Mischer 14:45:00 14:45:00 Pre-Reg Clinic [facility] 07 [facility] 2017-02-13 2017-02-13 Outpatient MHIEALT MHIEALT [id number] Memoria 08:45:00 08:45:00 07 jaren Tyree 2017-02-13 2017-02-13 Outpatient Tj Alicia MHMISCHER MHMISCHER [id number] 08:45:00 08:45:00 Jamieroyal 2017-02-13 2017-02-13 Outpatient Tj Alicia MHMISCHER MHMISCHER [id number] 08:45:00 08:45:00 Gisella 2017-02-13 2017-02-13 Outpatient MaralTj MHMISCHER MHMISCHER [id number] 08:45:00 08:45:00 royal 2017-01-16 2017-01-18 Phone MHIEALT [facility] [id number] Mischer 17:51:00 05:59:59 Message Clinic [facility] 11 [facility] 2017-01-16 2017-01-17 Outpatient MHMISCHER MHMISCHER [id number] 11:51:00 23:59:59 11 2017-01-03 2017-01-05 Phone MHIEALT [facility] [id number] Mischer 17:44:00 05:59:59 Message Clinic [facility] 10 [facility] 2017-01-03 2017-01-04 Outpatient MHMISCHER MHMISCHER [id number] 11:44:00 23:59:59 10 2017-01-02 2017-01-04 Phone MHIEALT [facility] [id number] Mischer 21:19:00 05:59:59 Message Clinic [facility] 09 Julio ro 2017-01-02 2017-01-03 Outpatient MHMISCHER MHMISCHER [id number] 15:19:00 23:59:59 09 2016-12-28 2016-12-29 Outpatient MHIEALT [facility] [id number] Mischer 14:00:00 05:59:59 Clinic [facility] 08 [facility] ro 2016-12-28 2016-12-29 Outpt Diag MH[facility] [id number] MH OPID 20:30:00 05:59:00 Services Outpatient 00 [facility] - [facility] 2016-12-28 2016-12-28 Outpatient Tj Alicia MHMISCHER MHMISCHER [id number] 08:00:00 23:59:59 Hwan 08 2016-12-28 2016-12-28 Outpatient Azar, [id number] 14:30:00 23:59:00 Rufina [id number] Ingrid [id number] 2016-12-28 2016-12-28 Outpatient MHIEALT MHIEALT [id number] Memoria 08:00:00 08:00:00 08 jaren Clements 2016-12-26 2016-12-28 Phone MHIEALT [facility] [id number] Mischer 15:23:00 05:59:59 Message Clinic [facility] 08 [facility] ro 2016-12-26 2016-12-27 Outpatient MHMISCHER MHMISCHER [id number] 09:23:00 23:59:59 08 2016-12-23 2016-12-25 Phone MHIEALT [facility] [id number] Mischer 15:42:00 05:59:59 Message Clinic [facility] 07 Julio ro 2016-12-23 2016-12-24 Outpatient MHMISCHER MHMISCHER [id number] 09:42:00 23:59:59 07 2016-11-14 2016-11-14 Outpatient MHIEALT MHIEALT [id number] Memoria 08:45:00 08:45:00 06 jaren Tyree 2016-10-07 2016-10-07 Outpatient MHIEALT MHIEALT [id number] Memoria 10:00:00 10:00:00 05 jaren Tyree 2016-09-22 2016-09-24 Observatio MHIEALT [facility] [id number] MH 21:11:00 16:45:00 n Tyree [facility] 2016-09-22 2016-09-24 Outpatient MaralTj [facility] [id number] 16:11:00 11:45:00 Hwan 2016-09-22 2016-09-22 Outpatient MHIEALT MHIEALT [id number] Memoria 11:00:00 11:00:00 03 jaren Clements 2016-09-19 2016-09-19 Outpatient MHIEALT MHIEALT [id number] Memoria 12:00:00 12:00:00 04 jaren Clements 2016-09-19 2016-09-19 Outpatient MHIEALT MHIEALT [id number] Memoria 11:30:00 11:30:00 02 jaren Clements 2016-08-17 2016-08-17 Outpatient MHIEALT MHIEALT [id number] Memoria 09:15:00 09:15:00 01 jaren Clements 2016-08-11 2016-08-12 Outpt Diag MHIEALT [facility] [id number] MH OPID 21:55:00 04:59:00 Services Outpatient Mcihael Chavez 2016-08-11 2016-08-11 Outpatient Tj Alicia MHOIP MHOIP [id number] 16:55:00 23:59:00 Hwan 2016-07-20 2016-07-21 Outpt Diag MHIEALT [facility] [id number] MH OPID 15:41:00 04:59:00 Services Outpatient lynn Clements 2016-07-20 2016-07-20 Outpatient Tj Alicia MHOIH MHOIH [id number] 10:41:00 23:59:00 Hwan 2016-07-20 2016-07-20 Outpatient IEALT MHIEALT [id number] [facility] 11:00:00 11:00:00 00 l Tyree Results Test Description Test Time Test Comments Results Result Comments Source TISSUE EXAM 2018-02-20 Surgical Pathology 14:55:00 Report Case: [id number] Authorizing Provider: Brown Hannah MD Collected: 02/16/2018 1004 Ordering Location: [facility] Received: 02/16/2018 1117 SERVICES Pathologist: [...] CHRONIC INFLAMMATION Signing Pathologist Direct Phone Line: [phone] ically signed by Nicolas Diaz MD on 02/20/2018 at 2:55 [id number], [id number] X 2Malignant neoplasm of urinary bladder A. [...] 2018-02-14 19:34:00 Test Item Value Reference Range Interpretation Comme nts CULTURE (BEAKER) (test code = ENTEROCOCCUS FAECALIS A >100,000 col/mL Enterococcus 1095) faecalis Ampicillin (test code = 26) S Linezolid (test code = 40) S Nitrofurantoin (test code = 23) S Tetracycline (test code = 2) S Vancomycin (test code = 13) S 50-59,000 col/mL skin floraURINALYSIS W/ [id number] 18:16:00 Test Item Value Reference Range Interpretation Comments COLOR (BEAKER) (test code = 470) Light Yellow CLARITY (BEAKER) (test code = Clear 469) SPECIFIC GRAVITY UA (BEAKER) 1.012 1.001-1.035 (test code = 468) PH UA (BEAKER) (test code = 467) 6.5 5.0-8.0 PROTEIN UA (BEAKER) (test code = 50 mg/dL Negative A 464) GLUCOSE UA (BEAKER) (test code = Negative Negative 365) KETONES UA (BEAKER) (test code = Negative Negative 371) BILIRUBIN UA (BEAKER) (test code Negative Negative = 462) BLOOD UA (BEAKER) (test code = Trace Negative A 461) NITRITE UA (BEAKER) (test code = Negative Negative 465) LEUKOCYTE ESTERASE UA (BEAKER) Large Negative A (test code = 466) UROBILINOGEN UA (BEAKER) (test 0.2 mg/dL 0.2-1.0 code = 463) RBC UA (BEAKER) (test code = 1 /HPF 519) WBC UA (BEAKER) (test code = 60 /HPF 520) BACTERIA (BEAKER) (test code = Few 517) MUCUS (BEAKER) (test code = Rare 1574) SQUAMOUS EPITHELIAL (BEAKER) < /HPF (test code = 516) HYALINE CASTS (BEAKER) (test 1 /LPF code = 514) CRYSTALS, URINE (BEAKER) (test Occasional code = 1521) YEAST (BEAKER) (test code = Occasional 1585) SOURCE(BEAKER) (test code = 2150) CBC W/PLT COUNT & AUTO [id number] 17:52:00 Test Item Value Reference Range Interpretation Comments WHITE BLOOD CELL COUNT (BEAKER) 87.0 K/ L 3.5-10.5 HH (test code = 775) RED BLOOD CELL COUNT (BEAKER) 4.39 M/ L 4.63-6.08 L (test code = 761) HEMOGLOBIN (BEAKER) (test code = 12.4 GM/DL 13.7-17.5 L 410) HEMATOCRIT (BEAKER) (test code = 39.1 % 40.1-51.0 L 411) MEAN CORPUSCULAR VOLUME (BEAKER) 89.1 fL 79.0-92.2 (test code = 753) MEAN CORPUSCULAR HEMOGLOBIN 28.2 pg 25.7-32.2 (BEAKER) (test code = 751) MEAN CORPUSCULAR HEMOGLOBIN CONC 31.7 GM/DL 32.3-36.5 L (BEAKER) (test code = 752) RED CELL DISTRIBUTION WIDTH 14.9 % 11.6-14.4 H (BEAKER) (test code = 412) PLATELET COUNT (BEAKER) (test 226 K/CU MM 150-450 code = 756) MEAN PLATELET VOLUME (BEAKER) 10.4 fL 9.4-12.4 (test code = 754) NUCLEATED RED BLOOD CELLS 0 /100 WBC 0-0 (BEAKER) (test code = 413) (CELLAVISION MANUAL DIFF)2018-02-12 17:52:00 Test Item Value Reference Range Interpretation Comments NEUTROPHILS - REL 9 % (CELLAVISION)(BEAKER) (test code = 2816) LYMPHOCYTES - REL 81 % (CELLAVISION)(BEAKER) (test code = 2817) EOSINOPHILS - REL 2 % (CELLAVISION)(BEAKER) (test code = 2819) ATYPICAL LYMPHOCYTES - REL 8 % 0-0 H (CELLAVISION)(BEAKER) (test code = 2829) NEUTROPHILS - ABS 7.83 K/ul 1.78-5.38 H (CELLAVISION)(BEAKER) (test code = 2830) LYMPHOCYTES - ABS 70.47 K/ul 1.32-3.57 H (CELLAVISION)(BEAKER) (test code = 2831) EOSINOPHILS - ABS 1.74 K/uL 0.04-0.54 H (CELLAVISION)(BEAKER) (test code = 2834) ATYPICAL LYMPHOCYTES - ABS 6.96 K/uL 0.00-0.00 H (CELLAVISION)(BEAKER) (test code = 2858) TOTAL COUNTED (BEAKER) (test code 100 = 1351) PLT MORPHOLOGY (BEAKER) (test code Normal = 486) SMUDGE CELLS (BEAKER) (test code = Present 1371) ANISOCYTOSIS (BEAKER) (test code = 3+ many 961) MICROCYTES (BEAKER) (test code = 3+ many 965) POIKILOCYTES (BEAKER) (test code = 1+ few 966) ELLIPTOCYTES (BEAKER) (test code = 1+ few 962) ARTIFACT (CELLAVISION)(BEAKER) Present (test code = 3432) PLATELET CONCENTRATION Adequate (CELLAVISION)(BEAKER) (test code = 3438) Received comment: User comments: Slide comments:BASIC METABOLIC [id number] 17:40:00 Test Item Value Reference Range Interpretation Comments SODIUM (BEAKER) 140 meq/L 136-145 (test code = 381) POTASSIUM (BEAKER) 3.9 meq/L 3.5-5.1 (test code = 379) CHLORIDE (BEAKER) 103 meq/L 98-107 (test code = 382) CO2 (BEAKER) (test 26 meq/L 22-29 code = 355) BLOOD UREA NITROGEN 24 mg/dL 7-21 H (BEAKER) (test code = 354) CREATININE (BEAKER) 1.45 mg/dL 0.57-1.25 H (test code = 358) GLUCOSE RANDOM 110 mg/dL 70-105 H (BEAKER) (test code = 652) CALCIUM (BEAKER) 9.6 mg/dL 8.4-10.2 (test code = 697) EGFR (BEAKER) (test 48 mL/min/1.73 ESTIMA SHANTA GFR IS code = 1092) sq m NOT ACCURATE CREATININE CLEARANCE IN PREDICTING GLOMERULAR FILTRATION RATE . ESTIMATED GFR I S NOT APPLICABLE FOR DIALYSIS PATIEN TS. RAD, CHEST, 2 [id number] 16:22:00Reason for exam:->pre-op testingShould this be performed at the bedside?->NoFINAL REPORT Chest, PA and lateral. History: Preoperative. Comparison: 08/24/2017. Discussion: Cardiomegaly and thoracic aortic ectasia. The lungs are clear without evidence of consolidation or effusion. There are no acute osseous abnormalities. The soft tissues are unremarkable. IMPRESSION: No acute cardiopulmonary abnormality. Signed: Humberto Arm[place] Verified Date/ Time: 02/12/2018 16:22:15 Reading Location: [address] Radiology Reading Room TISSUE [id number] 17:10:00Surgical Pathology Report Case: [id number] Authorizing Provider: Brown Hannah MD Collected: 08/25/2017 1030 Ordering Location: [facility] PERI[facility] Received: 08/25/2017 1434 SERVICES Pathologist: Nicolas Diaz MD Specimens: A) -Bladder Tumor, enbloc resection of right lateral wall tumor B) - Bladder Tumor, TUR papillary tumor inside left bladder neck C) - Bladder Tumor, right lateral wall bladder tumor D) - Bladder Tumor, papillary tumor dome A. 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 URINARY BLADDER, LEFT NECK, [...] NOT PRESENT Signing Pathologist Direct Phone Line: [phone] signed by Nicolas Diaz MD on 08/28/2017 at 5:10 PMThe focus of invasion on specimen B. Is into the lamina propria of one papillary stalk and consists of on 3-4 tiny cell clusters. A. 31532P. 18130J. 13390J. 59998Vzjczovlh neoplasm of urinary bladder A. Bladder tumor [...] to 0.4 cm. Submitted D1. CG/pl PerformedURINE [id number] 16:00:00 Test Item Value Reference Range Interpretation Comments CULTURE (BEAKER) (test 50-59,000 col/mL skin code = 1095) eunice (CELLAVISION MANUAL DIFF)2017-08-23 20:07:00 Test Item Value Reference Range Interpretation Comments NEUTROPHILS - REL 23 % (CELLAVISION)(BEAKER) (test code = 2816) LYMPHOCYTES - REL 66 % (CELLAVISION)(BEAKER) (test code = 2817) MONOCYTES - REL 2 % (CELLAVISION)(BEAKER) (test code = 2818) EOSINOPHILS - REL 1 % (CELLAVISION)(BEAKER) (test code = 2819) BASOPHILS - REL 1 % (CELLAVISION)(BEAKER) (test code = 2820) ATYPICAL LYMPHOCYTES - REL 6 % 0-0 H (CELLAVISION)(BEAKER) (test code = 2829) NEUTROPHILS - ABS 16.58 K/ul 1.78-5.38 H (CELLAVISION)(BEAKER) (test code = 2830) LYMPHOCYTES - ABS 47.59 K/ul 1.32-3.57 H (CELLAVISION)(BEAKER) (test code = 2831) MONOCYTES - ABS 1.44 K/uL 0.30-0.82 H (CELLAVISION)(BEAKER) (test code = 2832) EOSINOPHILS - ABS 0.72 K/uL 0.04-0.54 H (CELLAVISION)(BEAKER) (test code = 2834) BASOPHILS - ABS 0.72 K/uL 0.01-0.08 H (CELLAVISION)(BEAKER) (test code = 2835) ATYPICAL LYMPHOCYTES - ABS 4.33 K/uL 0.00-0.00 H (CELLAVISION)(BEAKER) (test code = 2858) TOTAL COUNTED (BEAKER) (test code 100 = 1351) PLT MORPHOLOGY (BEAKER) (test Normal code = 486) SMUDGE CELLS (BEAKER) (test code Present = 1371) POLYCHROMATOPHILLIC RBCS(BEAKER) 1+ few (test code = 478) HYPOCHROMIA (BEAKER) (test code = 1+ few 963) ANISOCYTOSIS (BEAKER) (test code 2+ moderate = 961) MICROCYTES (BEAKER) (test code = 2+ moderate 965) POIKILOCYTES (BEAKER) (test code 1+ few = 966) ARTIFACT (CELLAVISION)(BEAKER) Present (test code = 3432) PLATELET CONCENTRATION Adequate (CELLAVISION)(BEAKER) (test code = 3438) Received comment: User comments: Slide comments:CBC W/PLT COUNT & AUTO [id number] 20:06:00 Test Item Value Reference Range Interpretation Comments WHITE BLOOD CELL COUNT (BEAKER) 72.1 K/ L 3.5-10.5 HH (test code = 775) RED BLOOD CELL COUNT (BEAKER) 4.97 M/ L 4.63-6.08 (test code = 761) HEMOGLOBIN (BEAKER) (test code = 13.1 GM/DL 13.7-17.5 L 410) HEMATOCRIT (BEAKER) (test code = 42.1 % 40.1-51.0 411) MEAN CORPUSCULAR VOLUME (BEAKER) 84.7 fL 79.0-92.2 (test code = 753) MEAN CORPUSCULAR HEMOGLOBIN 26.4 pg 25.7-32.2 (BEAKER) (test code = 751) MEAN CORPUSCULAR HEMOGLOBIN CONC 31.1 GM/DL 32.3-36.5 L (BEAKER) (test code = 752) RED CELL DISTRIBUTION WIDTH 14.5 % 11.6-14.4 H (BEAKER) (test code = 412) PLATELET COUNT (BEAKER) (test 247 K/CU MM 150-450 code = 756) MEAN PLATELET VOLUME (BEAKER) 10.6 fL 9.4-12.4 (test code = 754) NUCLEATED RED BLOOD CELLS 0 /100 WBC 0-0 (BEAKER) (test code = 413) RAD, CHEST, 2 [id number] 16:22:00Reason for Exam:->bladder cancer, pre- op testingFINAL REPORT Chest, two views HISTORY: Bladder cancer COMPARISON: None. DISCUSSION: Enlargement of the cardiomediastinal silhouette with tortuosity and ectasia of the thoracic aorta. Lungs are grossly clear without focal consolidation. No large pleural effusion or pneumothorax. M ild degenerative changes in the thoracic spine. Healed left-sided rib fractures. IMPRESSION: Enlargement of the cardiomediastinal silhouette. Otherwise, no acute cardiopulmonary abnormality. Signed: Federica Conner MDReport Verified Date/Time: 08/23/2017 16:22:14 Reading Location: [address] Reading Room BASIC METABOLIC [id number] 16:10:00 Test Item Value Reference Range Interpretation Comments SODIUM (BEAKER) 140 meq/L 136-145 (test code = 381) POTASSIUM (BEAKER) 3.9 meq/L 3.5-5.1 (test code = 379) CHLORIDE (BEAKER) 104 meq/L 98-107 (test code = 382) CO2 (BEAKER) (test 25 meq/L 22-29 code = 355) BLOOD UREA NITROGEN 29 mg/dL 7-21 H (BEAKER) (test code = 354) CREATININE (BEAKER) 1.59 mg/dL 0.57-1.25 H (test code = 358) GLUCOSE RANDOM 80 mg/dL 70-105 (BEAKER) (test code = 652) CALCIUM (BEAKER) 9.8 mg/dL 8.4-10.2 (test code = 697) EGFR (BEAKER) (test 43 mL/min/1.73 ESTIMA SHANTA GFR IS code = 1092) sq m NOT ACCURATE CREATININE CLEARANCE IN PREDICTING GLOMERULAR FILTRATION RATE . ESTIMATED GFR I S NOT APPLICABLE FOR DIALYSIS PATIEN TS. URINALYSIS W/ [id number] 16:01:00 Test Item Value Reference Range Interpretation Comments COLOR (BEAKER) (test code = 470) Light Yellow CLARITY (BEAKER) (test code = Clear 469) SPECIFIC GRAVITY UA (BEAKER) 1.012 1.001-1.035 (test code = 468) PH UA (BEAKER) (test code = 467) 7.0 5.0-8.0 PROTEIN UA (BEAKER) (test code = 50 mg/dL Negative A 464) GLUCOSE UA (BEAKER) (test code = Negative Negative 365) KETONES UA (BEAKER) (test code = Negative Negative 371) BILIRUBIN UA (BEAKER) (test code Negative Negative = 462) BLOOD UA (BEAKER) (test code = Negative Negative 461) NITRITE UA (BEAKER) (test code = Negative Negative 465) LEUKOCYTE ESTERASE UA (BEAKER) Negative Negative (test code = 466) UROBILINOGEN UA (BEAKER) (test 0.2 mg/dL 0.2-1.0 code = 463) RBC UA (BEAKER) (test code = 1 /HPF 519) WBC UA (BEAKER) (test code = < /HPF 520) MUCUS (BEAKER) (test code = Rare 1574) SOURCE(BEAKER) (test code = 3158) [id number] 15:55:00 Test Item Value Reference Range Interpretation Comments PARTIAL THROMBOPLASTIN TIME 31.6 seconds 22.5-36.0 (BEAKER) (test code = 760) PROTHROMBIN TIME/[id number] 15:54:00 Test Item Value Reference Range Interpretation Comments PROTIME (BEAKER) (test code = 14.8 seconds 11.7-14.7 H 759) INR (BEAKER) (test code = 370) 1.2 <=5.9 RECOMMENDED COUMADIN/WARFARIN INR THERAPY RANGESSTANDARD DOSE: 2.0 - 3.0 Includes: PROPHYLAXIS forvenous thrombosis, systemic embolization; TREATMENT for venous thrombosis and/or pulmonary embolus.HIGH RISK: Target INR is 2.5-3.5 for patients with mechanical heart valves.[id number] 10:07:0032.2MH [place] RqzbQVCAGNTPYE6827-30-82 10:07:008.6MH [facility] IeqaTTWSESRPWB4474-55-75 10:07:00 222MH [facility] TualRROSAYPOGW1748-89-50 10:07:0016.8MH [facility] LandHEMATOLOGY 2017-05-29 10:07:0011.3MH [facility] PrjoKKHEJNFSAB9352-31-22 10:07:004.00MH [facility] DhpzYSTPGWNQAI9560-78-09 10:07:0051.5MH [place] EpfsBTZGIKTHAT6034-76-38 10:07:00 87.5MH [facility] KibxSLUYYBXDBE4210-92-57 10:07:0035.0MH [facility]HEMATOLOGY 2017-05-29 10:07:00 Test Item Value Reference Range Interpretation Comments MCH (test code = MCH) 28.2 pg 27.0-31.0 [facility] GfgjSWTWTIEIKH2346-50-29 10:07:001.8MH [place] CazyTXWCAZVGSY3128-64-77 10:07:000.1MH [place] JnikZXBUELALTH8461-24-46 10:07:000.5MH [facility]HEMATOLOGY 2017-05-29 10:07:003.5MH [place] NbvhTTIYNOZEPE9757-67-29 10:07:0077.1MH [facility] HaltJURNKESAAH4860-78-10 10:07:0018.1MH [place] NloiTKKSPTILBW2381-50-65 10:07:00 39.7MH [place] ZyjwGSYOJHGXOL5318-66-74 10:07:001.0MH [facility]HEMATOLOGY 2017-05-29 10:07:009.3MH [place] ScyjKTQCXUKGYU7353-53-21 10:07:000.3MH [place] ADVAEVJSPD2948-97-88 10:41:001.0MH [place] DaemVRYBRBNDHQ5074-29-68 10:41:002.0 [place] ZeqdUQFRYZKSZI3301-13-19 10:41:00 Test Item Value Reference Range Interpretation Comments Tot Cell Ct (test code = Tot Cell Ct) 100 1 [facility] YvxtLHHSMILHND0079-60-33 10:41:002.0 [facility] SzwwJHYSBJOSGT3856-20-33 10:41:001+ (05/28/17 5:41 AM) [facility] LofkJPGMKHVBFU5657-40-56 10:41:00Moderate *ABN*(05/28/17 5:41 AM) [facility] IioqAKVBZVINYV2735-24-38 10:41:001+ *ABN*(05/28/17 5:41 AM) [facility] YcqqOLNLNOTUMP2967-70-16 10:41:001+ *ABN*(05/28/17 5:41 AM) [facility] HtsbCHKTWQBFHD5938-97-54 10:41:0042.8MH [place] SffhXXWWQRELOI1798-11-88 10:41:0013.0MH [place] AqpiFOAMARBZLT7767-19-48 10:41:000.5MH [facility]HEMATOLOGY 2017-05-28 10:41:0082.0MH [place] VqrfUGGGLRGGQD0066-00-27 10:41:000.0MH [place] IkuaQSRNWRSZXQ9026-25-16 10:41:006.6MH [place] YaofYIDJLJXUFT5721-98-38 10:41:00 1.0MH [place] VzhwJZQLXGDVVB4320-38-91 10:41:25868EU [facility]HEMATOLOGY 2017-05-28 10:41:0016.4 [facility] OhmmTRKDZMPHXO8408-41-92 10:41:00 Test Item Value Reference Range Interpretation Comments MCH (test code = MCH) 27.8 pg 27.0-31.0 [facility] MqorUBMENIQDGN2961-90-34 10:41:0032.2MH [place] NaigEWNLYQCQAW5399-35-37 10:41:0086.2MH [place] MoceVSIGMZXQTG8077-93-17 10:41:0035.5MH [place] IUOAXJEJPJ1960-85-14 10:41:008.2MH [place] UqpxPIOGDEDWBH0778-95-08 10:41:0011.4 [place] EfuyCNXKCSBQSY5736-47-59 10:41:004.13MH [place] JmzuCGWFIPBLPP1322-58-54 10:41:0051.0MH [facility] LandCHEM RTKNP2721-27-47 13:34:0068 [facility] LandCHEM PANEL 2017-05-27 13:34:0024 [facility] LandCHEM UQGBF6918-34-71 13:34:39699HY [place] CHEM VYSRL9760-48-55 13:34:003.8MH [facility] LandCHEM TMSPO1564-09-56 13:34:16751XV [facility] LandCHEM IQCES9010-40-13 13:34:001.08 [facility] LandCHEM MBYNM7441-50-75 13:34:0020MH [facility] LandCHEM PQBDU9740-57-44 13:34:008.7MH [facility] LandCHEM PANEL 2017-05-27 13:34:58919ZA [facility] LandCHEM LFFOA3821-45-50 13:34:0014.8MH [place] QongVRVYAVZKGM7979-61-74 13:34:001.3MH [place] UugjHIDUYNEOVV7094-38-80 13:34:00 0.5MH [place] JkzjWKDXTHLBJZ6043-97-75 13:34:000.3MH [facility] LandHEMATOLOGY 2017-05-27 13:34:000.8MH [place] OxkjARHGXFJXTU7251-87-17 13:34:0010.9MH [facility] TskeCGJJXAXMWK4983-03-33 13:34:0044.6MH [facility] LadkJQOURUDPSF4557-88-67 13:34:00 0.3MH [facility] HfilUFIIJUVKAT7166-79-57 13:34:001+ *ABN*(05/27/17 8:34 AM) [facility] PiuyQSJUOCMTJP1327-28-51 13:34:000.2MH [facility] KaxhMOGFWHVXPA2155-13-02 13:34:00 19.3MH [facility] SkgfFGEQAVOHII3327-46-75 13:34:00Normal (05/27/17 8:34 AM) [facility] FbfjBKGAIFZMRD9982-34-13 13:34:0078.6MH [place] IeacMARQPBOWJL3696-74-26 13:34:00 213MH [facility] UyrrGWJTKGKHUN7377-49-37 13:34:008.5MH [facility] LandHEMATOLOGY 2017-05-27 13:34:0033.0MH [place] NnpiBKFGMKQTMI9514-38-88 13:34:0016.4 [facility] BuzkYIYAEZNQDV2573-00-91 13:34:0012.4 [facility] RncaYXDZDJOMTU0378-63-08 13:34:00 86.8 [facility] HvrrEIEZTJZIIC2595-87-81 13:34:0037.4 [facility]HEMATOLOGY 2017-05-27 13:34:00 Test Item Value Reference Range Interpretation Comments MCH (test code = MCH) 28.7 pg 27.0-31.0 [facility] ZphbHSORXDTNGK9516-30-94 13:34:0056.8 [facility] NwvtOOMVKTQRJP6862-16-25 13:34:004.31 [facility] LandBLOOD BANK LTUVGMD2085-52-76 06:34:00Negative (05/27/17 1:34 AM) [facility] LandBLOOD BANK PGJTLYS9555-83-62 06:25:00Product available (05/27/17 1:25 AM) [facility] LandCHEM JTTKY8682-53-09 04:22:0049 [facility] LandCHEM ELAKJ8274-76-24 04:22:92529ZZ [facility] LandCHEM YPLJK2573-80-33 04:22:003.5 [facility] LandCHEM XLTQQ4749-73-59 04:22:58216PE [facility] LandCHEM XRFNI3819-96-03 04:22:0025 [facility] LandCHEM IZIZH4512-60-98 04:22:009.1M [facility] LandCHEM QONYK1768-84-38 04:22:34200GX [facility] LandCHEM CJUOF5372-63-02 04:22:0025 [facility] LandCHEM PANEL 2017-05-27 04:22:001.41 [facility] LandCHEM TBASL3212-65-32 04:22:0012.5 [facility] YtfeCHHOEEQVCQ8854-55-88 04:22:000.0 [facility] NhuiLHLYLCJLXB8238-17-78 04:22:00 Normal (05/26/17 11:22 PM) [facility] LwrcVBLHCDLICY8216-24-01 04:22:000.0 [facility] LechIMSNHBWUEF3896-26-20 04:22:00 Test Item Value Reference Range Interpretation Comments Tot Cell Ct (test code = Tot Cell Ct) 100 1 [facility] XbsaQKXXSWVGHP2660-59-41 04:22:00Normal (05/26/17 11:22 PM) [place] VWWTWHJOTV1516-44-09 04:22:00 Test Item Value Reference Range Interpretation Comments INR (test code = INR) 1.13 1 0.85-1.17 [facility] OgnnZZTMYUVKZX9287-94-64 04:22:00 Test Item Value Reference Range Interpretation Comments PT (test code = PT) 14.5 s 12.0-14.7 [facility] FliaXOWFYJPXUZ6490-75-84 04:22:00 Test Item Value Reference Range Interpretation Comments PTT (test code = PTT) 33.1 s 22.9-35.8 [facility] LandHEMOGLOBIN [id number] 11:52:00 Test Item Value Reference Range Interpretation Comments HEMOGLOBIN A1C (BEAKER) (test code = 6.9 % 4.3-6.1 H 368) [id number] 11:12:00 Test Item Value Reference Range Interpretation Comments RPR SCREEN (BEAKER) (test code = Nonreactive Nonreactive 420) CBC W/PLT COUNT & AUTO LUUZYZQMXHGD1448-06-75 10:31:00 Test Item Value Reference Range Interpretation Comments WHITE BLOOD CELL COUNT (BEAKER) 23.5 K/ L 3.5-10.5 H (test code = 775) RED BLOOD CELL COUNT (BEAKER) 3.90 M/ L 4.63-6.08 L (test code = 761) HEMOGLOBIN (BEAKER) (test code = 11.0 GM/DL 13.7-17.5 L 410) HEMATOCRIT (BEAKER) (test code = 34.6 % 40.1-51.0 L 411) MEAN CORPUSCULAR VOLUME (BEAKER) 88.7 fL 79.0-92.2 (test code = 753) MEAN CORPUSCULAR HEMOGLOBIN 28.2 pg 25.7-32.2 (BEAKER) (test code = 751) MEAN CORPUSCULAR HEMOGLOBIN CONC 31.8 GM/DL 32.3-36.5 L (BEAKER) (test code = 752) RED CELL DISTRIBUTION WIDTH 14.2 % 11.6-14.4 (BEAKER) (test code = 412) PLATELET COUNT (BEAKER) (test 230 K/CU MM 150-450 code = 756) MEAN PLATELET VOLUME (BEAKER) 10.6 fL 9.4-12.4 (test code = 754) NUCLEATED RED BLOOD CELLS 0 /100 WBC 0-0 (BEAKER) (test code = 413) NEUTROPHILS RELATIVE PERCENT 32 % (BEAKER) (test code = 429) LYMPHOCYTES RELATIVE PERCENT 64 % (BEAKER) (test code = 430) MONOCYTES RELATIVE PERCENT 3 % (BEAKER) (test code = 431) EOSINOPHILS RELATIVE PERCENT 0 % (BEAKER) (test code = 432) BASOPHILS RELATIVE PERCENT 0 % (BEAKER) (test code = 437) NEUTROPHILS ABSOLUTE COUNT 7.57 K/ L 1.78-5.38 H (BEAKER) (test code = 670) LYMPHOCYTES ABSOLUTE COUNT 15.04 K/ L 1.32-3.57 H (BEAKER) (test code = 414) MONOCYTES ABSOLUTE COUNT (BEAKER) 0.68 K/ L 0.30-0.82 (test code = 415) EOSINOPHILS ABSOLUTE COUNT 0.03 K/ L 0.04-0.54 L (BEAKER) (test code = 416) BASOPHILS ABSOLUTE COUNT (BEAKER) 0.08 K/ L 0.01-0.08 (test code = 417) IMMATURE GRANULOCYTES-RELATIVE 0 % 0-1 PERCENT (BEAKER) (test code = 2801) (MANUAL DIFFERENTIAL)2017-01-29 10:31:00 Test Item Value Reference Range Interpretation Comments TOTAL COUNTED (BEAKER) (test code = 1351) PLT MORPHOLOGY (BEAKER) (test code = Normal 486) RBC MORPHOLOGY (BEAKER) (test code = Normal 762) ATYPICAL LYMPHS(BEAKER) (test code = Present 1678) SMUDGE CELLS (BEAKER) (test code = Present 1371) VITAMIN [id number] 08:02:00 Test Item Value Reference Range Interpretation Comments VITAMIN B12 (BEAKER) (test code = 346 pg/mL 213-816 774) TSH/FREE T4 IF [id number] 08:02:00 Test Item Value Reference Range Interpretation Comments THYROID STIMULATING HORMONE 1.37 uIU/mL 0.35-4.94 (BEAKER) (test code = 772) CREATINE KINASE (CK), TOTAL AND [id number] 07:55:00 Test Item Value Reference Range Interpretation Comments CREATINE KINASE TOTAL (BEAKER) 72 U/L 29-200 (test code = 380) CREATINE KINASE-MB (BEAKER) (test 0.5 ng/mL 0.0-6.6 code = 750) CREATINE KINASE-MB INDEX (BEAKER) 0.7 % (test code = 395) CK-MB Reference Range:<6.7 Normal6.7-10.0 Borderline>10.0 AbnormalTROPONIN [id number] 07:55:00 Test Item Value Reference Range Interpretation Comments TROPONIN I (BEAKER) (test code = 0.02 ng/mL 0.00-0.03 397) Troponin I (TnI) levels must be interpreted [...] acidosis, acute neurological disease, and persistent tachyarrhythmia.LIPID [id number] 07:39:00 Test Item Value Reference Range Interpretation Comments TRIGLYCERIDES (BEAKER) (test code = 175 mg/dL 540) CHOLESTEROL (BEAKER) (test code = 104 mg/dL 631) HDL CHOLESTEROL (BEAKER) (test code 21 mg/dL = 976) LDL CHOLESTEROL CALCULATED (BEAKER) 48 mg/dL (test code = 633) Triglyceride Reference Range: Low Risk <150 Borderline 150-199 High Risk 200-499 Very High Risk >=500Cholesterol Reference Range: Low Risk <200 Borderline 200-239 High Risk >240HDL Cholesterol Reference Range: Low Risk >=60 High Risk <40LDL Cholesterol Reference Range: Optimal <100 Near Optimal 100-129 Borderline 130-159 High 160-189 Very High >=190BASIC METABOLIC [id number] 07:39:00 Test Item Value Reference Range Interpretation Comments SODIUM (BEAKER) 141 meq/L 136-145 (test code = 381) POTASSIUM (BEAKER) 3.7 meq/L 3.5-5.1 (test code = 379) CHLORIDE (BEAKER) 108 meq/L 98-107 H (test code = 382) CO2 (BEAKER) (test 23 meq/L 22-29 code = 355) BLOOD UREA NITROGEN 20 mg/dL 7-21 (BEAKER) (test code = 354) CREATININE (BEAKER) 1.41 mg/dL 0.57-1.25 H (test code = 358) GLUCOSE RANDOM 111 mg/dL 70-105 H (BEAKER) (test code = 652) CALCIUM (BEAKER) 9.3 mg/dL 8.4-10.2 (test code = 697) EGFR (BEAKER) (test 49 mL/min/1.73 ESTIMA SHANTA GFR IS code = 1092) sq m NOT ACCURATE CREATININE CLEARANCE IN PREDICTING GLOMERULAR FILTRATION RATE . ESTIMATED GFR I S NOT APPLICABLE FOR DIALYSIS PATIEN TS. MR, MRA, BRAIN, WITHOUT [id number] 04:30:00Reason for exam:->Ischemic Stroke EvaluationFINAL REPORT MR, [...] no significant atherosclerotic plaque at the CCA bif urcation. No flow-limiting stenosis or dissection.On the left, [...] intra or extracranial cerebral arterial vasculature. Signed: Magda Maciel MDReport Verified Date/Time: 01/29/2017 04:30:36 Reading Location: [address] Consult Reading Room MR, MRA, NECK, WITHOUT IV [id number] 04:30:00Reason for exam:- >Ischemic Stroke EvaluationFINAL REPORT MR, BRAIN, WITHOUT CONTRAST, [...] no significant atherosclerotic plaque at the CCA bif urcation. No flow-limiting stenosis or dissection.On the left, [...] intra or extracranial cerebral arterial vasculature. Signed: Magda Maciel MDReport Verified Date/Time: 01/29/2017 04:30:36 Reading Location: [address] Consult Reading Room MR, BRAIN, WITHOUT [id number] 04:30:00Reason for exam:- >Ischemic Stroke EvaluationFINAL REPORT MR, BRAIN, WITHOUT CONTRAST, [...] no significant atherosclerotic plaque at the CCA bif urcation. No flow-limiting stenosis or dissection.On the left, [...] intra or extracranial cerebral arterial vasculature. Signed: Magda Maciel MDReport Verified Date/Time: 01/29/2017 04:30:36 Reading Location: [facility] B1 C013X [facility] Consult Reading Room CHEM [id number] 20:35:0054[facility] 2016[facility] 20:35:0015.8[facility] [id number] 20:35:009.9[facility] [id number] 20:35:0027[facility] [id number] 20:35:01551BX[facility] HospitalCHEM [id number] 20:35:00 91[facility] [id number] 20:35:0018[facility] CHEM [id number] 20:35:41138YFCuero [facility] HospitalCHEM [id number] 20:35:001.31[facility] [id number] 20:35:003.8[facility]
--- NOTE | 2019-07-02 14:31 | RAD REPORT ---
EXAM DESCRIPTION: CT - Head Brain Wo Cont - 07/02/2019 2:24 pm CLINICAL HISTORY: HUMPHREYS'S PALSY Headache, drowsiness COMPARISON: Head Brain Wo Cont dated 01/28/2017; Head Brain Wo Cont dated 01/11/2017 TECHNIQUE: All CT scans are performed using dose optimization technique as appropriate and may inclu de automated exposure control or mA/KV adjustment according to patient size. FINDINGS: No intracranial hemorrhage, hydrocephalus or extra-axial fluid collection.Mild generalized brain atrophy is present with moderate periventricular and deep white matter chronic microvascular i schemic changes.No areas of brain edema or evidence of midline shift. The paranasal sinuses and mastoids are clear. The calvarium is intact. IMPRESSION: No acute intracranial abnormality.
[2019-07-02 16:13] VITALS: BP 130/75; TEMP 98.4; O2SAT 99
--- NOTE | 2019-07-08 13:23 | EDPHYS ---
Physician Documentation [facility] Name: Duke Marin III Age: 74 yrs Sex: Male : 1945 Arrival Date: 07/02/2019 Time: 13:42 Bed 20 Private MD: Javi Looney ED Physician Isidro Wilburn HPI: 07/01 14:09 This 74 yrs old Male presents to ER via Wheelchair with complaints of Left rn eye problem, left facial weakness. 14:09 The patient presents to the emergency department with weakness of the left side of the rn face, a vision problem, blurred vision. Onset: The symptoms/episode began/occurred. 14:10 Onset: The symptoms/episode began/occurred 3 day(s) ago. Context: occurred at home, rn occurred while the patient was at rest. Severity of symptoms: At their worst the symptoms were mild in the emergency department the symptoms are unchanged. Current symptoms: left eye weakness. The patient has not experienced similar symptoms in the past. Reports left eye watery and irritation for 4 days, noticed has left eye weakness and unable to close left eye. Began 4 days ago. No injury. No head injury. No other neurological complaint. No loss of vision.. Historical: - Allergies: 13:59 Ephedrine Sulfate; iw 13:59 Pseudoephedrine; iw - Home Meds: 13:59 Bystolic 10 mg oral tab twice a day [Active]; valsartan 75 mg Oral once daily [Active]; iw aspirin 81 mg Oral chew [Active]; Plavix 75 mg Oral tab 1 tab once daily [Active]; Crestor 10 mg Oral tab 1 tab once daily [Active]; "Cardia" 240mg Daily 140 mg daily [Active]; - PMHx: 13:59 Atrial Fib; Bladder cancer; CLL; CVA; enlarged aorta; Hypertension; SVT; iw - Immunization history:: Adult Immunizations up to date. - Social history:: Smoking status: Patient/guardian denies using tobacco, the patient reports quitting approximately 5 years ago. - Family history:: not pertinent. - Hospitalizations: : No recent hospitalization is reported. ROS: 14:10 Constitutional: Negative for fever, chills, and weight loss, Eyes: + weak left eye and rn watery eye ENT: Negative for injury, pain, and discharge, Neck: Negative for injury, pain, and swelling, Cardiovascular: Negative for chest pain, palpitations, and edema, Respiratory: Negative for shortness of breath, cough, wheezing, and pleuritic chest pain, Abdomen/GI: Negative for abdominal pain, nausea, vomiting, diarrhea, and constipation, MS/Extremity: Negative for injury and deformity, Skin: Negative for injury, rash, and discoloration, Neuro: Negative for headache, numbness, tingling, and seizure. Exam: 14:10 Constitutional: This is a well developed, well nourished patient who is awake, alert, rn and in no acute distress. Head/Face: Normocephalic, atraumatic. Eyes: + mild injection of conjunctiva, + clear watery discharge, + mild left eye weakness, unable to close left eye completely. ENT: MMM Cardiovascular: Regular rate and rhythm. No pulse deficits. Respiratory: No increased work of breathing, no retractions or nasal flaring. Skin: Warm, dry MS/ Extremity: Pulses equal, no cyanosis. Neurovascular intact. Full, normal range of motion. Equal circumference. Neuro: Awake and alert, GCS 15, oriented to person, place, time, and situation. Motor strength 5/5 in all extremities. Sensory grossly intact. Cerebellar exam normal. Normal gait. + left upper and lower mild facial weakness. Vital Signs: 13:55 BP 130 / 75; Pulse 78; Resp 16; Temp 98.4; Pulse Ox 99% on R/A; Weight 86.18 kg; Height iw 5 ft. 10 in. (177.80 cm); 15:00 BP 128 / 73; Pulse 75; Resp 17; Pulse Ox 99% on R/A; rb1 13:55 Body Mass Index 27.26 (86.18 kg, 177.80 cm) iw MDM: 14:01 Patient medically screened. rn 15:11 Data reviewed: vital signs, nurses notes, radiologic studies, CT scan, and as a result, rn I will discharge patient. Counseling: I had a detailed discussion with the patient and/or guardian regarding: the historical points, exam findings, and any diagnostic results supporting the discharge/admit diagnosis, radiology results, the need for outpatient follow up, to return to the emergency department if symptoms worsen or persist or if there are any questions or concerns that arise at home. Response to treatment: There is no appreciated change of the patient's symptoms at this time, and as a result, I will discharge patient. Special discussion: I discussed with the patient/guardian in detail that at this point there is no indication for admission to the hospital. It is understood, however, that if the symptoms persist or worsen the patient needs to return immediately for re-evaluation. Based on the history and exam findings, there is no indication for further emergent testing or inpatient evaluation. I discussed with the patient/guardian the need to see the neurologist for further evaluation of the symptoms. ED course: CT head neg, symptoms and presentation consistent with bells palsy. . 07/01 14:09 Order name: CT Head Brain wo Cont; Complete Time: 14:37 rn Administered Medications: No medications were administered Disposition: 07/02/19 15:12 Discharged to Home. Impression: Hernandez's palsy. - Condition is Stable. - Discharge Instructions: Hernandez Palsy, Adult. - Prescriptions for Valtrex 500 mg Oral Tablet - take 1 tablet by ORAL route every 12 hours for 5 days; 10 tablet. Prednisone 20 mg Oral Tablet - take 1 tablet by ORAL route once daily for 10 days Take 3 tabs PO daily for 5 days, then 2 tabs PO daily for 3 days, then 1 tab PO daily for 2 days.; 23 tablet. - Medication Reconciliation Form, Thank You Letter, Antibiotic Education, Prescription Opioid Use form. - Follow up: Jose Healy MD; When: As needed; Reason: Recheck today's complaints, Re-evaluation by your physician. - Problem is new. - Symptoms are unchanged. Signatures: Dispatcher [employer] EDJoan Beauchamp RN RN iw Nieto, Roman, MD MD rn Barber, Rebecca, RN RN rb1 Corrections: (The following items were deleted from the chart) 15:47 15:12 07/02/2019 15:12 Discharged to Home. Impression: Hernandez's palsy. Condition is rb1 Stable. Forms are Medication Reconciliation Form, Thank You Letter, Antibiotic Education, Prescription Opioid Use. Follow up: Jose Healy; When: As needed; Reason: Recheck today's complaints, Re-evaluation by your physician. Problem is new. Symptoms are unchanged. rn
--- NOTE | 2019-07-08 13:23 | ER ---
Nurse's Notes [facility] Name: Duke Marin III Age: 74 yrs Sex: Male : 1945 Arrival Date: 07/02/2019 Time: 13:42 Bed 20 Private MD: Javi Looney Diagnosis: Hernandez's palsy Presentation: 07/01 13:55 Chief complaint: Patient states: left eye pain and blurry vision to left eye since iw Monday, pain has resolved, blurriness improved but his left eye is not blinking normally , no weakness in left arm or leg. Coronavirus screen: Proceed with normal triage. Patient denies a cough. Patient denies shortness of breath or difficulty breathing. Patient denies measured and/or subjective temperature greater than 100.4F prior to today's visit. Patient denies travel on a cruise ship or to a country the [facility] currently lists as an affected area. Patient denies contact with known and/or suspected case of COVID-19. Ebola Screen: Patient negative for fever greater than or equal to 101.5 degrees Fahrenheit, and additional compatible Ebola Virus Disease symptoms Patient denies exposure to infectious person. Patient denies travel to an Ebola-affected area in the 21 days before illness onset. No symptoms or risks identified at this time. Initial Sepsis Screen: Does the patient meet any 2 criteria? No. Patient's initial sepsis screen is negative. Does the patient have a suspected source of infection? No. Patient's initial sepsis screen is negative. Risk Assessment: Do you want to hurt yourself or someone else? Patient reports no desire to harm self or others. Onset of symptoms was June 29, 2019. 13:55 Method Of Arrival: Wheelchair iw 13:55 Acuity: PARAG 3 iw Historical: - Allergies: 13:59 Ephedrine Sulfate; iw 13:59 Pseudoephedrine; iw - Home Meds: 13:59 Bystolic 10 mg oral tab twice a day [Active]; valsartan 75 mg Oral once daily [Active]; iw aspirin 81 mg Oral chew [Active]; Plavix 75 mg Oral tab 1 tab once daily [Active]; Crestor 10 mg Oral tab 1 tab once daily [Active]; "Cardia" 240mg Daily 140 mg daily [Active]; - PMHx: 13:59 Atrial Fib; Bladder cancer; CLL; CVA; enlarged aorta; Hypertension; SVT; iw - Immunization history:: Adult Immunizations up to date. - Social history:: Smoking status: Patient/guardian denies using tobacco, the patient reports quitting approximately 5 years ago. - Family history:: not pertinent. - Hospitalizations: : No recent hospitalization is reported. Screenin:00 Abuse screen: Denies threats or abuse. Nutritional screening: No deficits noted. rb1 Tuberculosis screening: No symptoms or risk factors identified. Fall Risk None identified. Assessment: 14:00 General: Appears in no apparent distress. comfortable, Behavior is calm, cooperative. rb1 Pain: Denies pain. Neuro: Level of Consciousness is awake, alert, obeys commands, Oriented to person, place, time, situation, Speech is normal, Facial droop on left, Denies weakness. Cardiovascular: Capillary refill < 3 seconds. Respiratory: Airway is patent Respiratory effort is even, unlabored, Respiratory pattern is regular, symmetrical. GI: No signs and/or symptoms were reported involving the gastrointestinal system. : No signs and/or symptoms were reported regarding the genitourinary system. EENT: Eyes Pt. reports that he had pain and blurred in his left eye on Monday, but that has since resolved. Now he c/o not being able to blink or closed his left eye.. Derm: Skin is pink, warm \\T\\ dry. Musculoskeletal: Range of motion: intact in all extremities. 15:00 Reassessment: Patient appears in no apparent distress at this time. No changes from rb1 previously documented assessment. Vital Signs: 13:55 BP 130 / 75; Pulse 78; Resp 16; Temp 98.4; Pulse Ox 99% on R/A; Weight 86.18 kg; Height iw 5 ft. 10 in. (177.80 cm); 15:00 BP 128 / 73; Pulse 75; Resp 17; Pulse Ox 99% on R/A; rb1 13:55 Body Mass Index 27.26 (86.18 kg, 177.80 cm) iw ED Course: 13:42 Patient arrived in ED. mr 13:43 Javi Looney MD is Private Physician. mr 13:57 Triage completed. iw 13:59 Arm band placed on. iw 14:00 Jaimee Liao, RN is Primary Nurse. rb1 14:00 Patient has correct armband on for positive identification. Bed in low position. Call rb1 light in reach. Side rails up X 1. Pulse ox on. NIBP on. 14:01 Isidro Wilburn MD is Attending Physician. rn 14:24 CT Head Brain wo Cont In Process Unspecified. EDMS 15:12 Jose Healy MD is Referral Physician. rn 15:45 No provider procedures requiring assistance completed. Patient did not have IV access rb1 during this emergency room visit. Administered Medications: No medications were administered Outcome: 15:12 Discharge ordered by MD. rn 15:45 Discharged to home via wheelchair, with family. rb1 15:45 Condition: stable 15:45 Discharge instructions given to patient, Instructed on discharge instructions, follow up and referral plans. medication usage, Demonstrated understanding of instructions, follow-up care, medications, Prescriptions given X 2. 15:47 Patient left the ED. rb1 Signatures: Dispatcher [employer] EDNV Manan Nydia Joan Valle RN RN Isidro Wilburn MD MD rn Barber, Rebecca, RN RN rb1
== END 2019-07-02 15:47 | disposition home or self-care (01) ==
LOC: ER 13:39
DX: G51.0 Bell's palsy (principal); I10 Essential (primary) hypertension; I48.91 Unspecified atrial fibrillation; Z79.01 Long term (current) use of anticoagulants; Z79.82 Long term (current) use of aspirin; Z88.8 Allergy status to other drugs, medicaments and biological substances; Z85.51 Personal history of malignant neoplasm of bladder; Z86.73 Personal history of transient ischemic attack (TIA), and cerebral infarction without residual deficits
CPT/HCPCS: 70450; 99283

== ENCOUNTER 2020-01-16 05:24 | Inpatient (IN) | payer OTHER ==
--- OUTSIDE RECORDS SUMMARY | 2020-01-16 05:26 | XMS REPORT | Clinical Summary ---
:1945 Author Organization [facility] Address [address] [place] [address] Care Team Providers Name Role Phone MD [...] tachycardia) 06/06/2016 CLL (chronic lymphocytic leukemia) 06/06/2016 Surgical History Surgery Date Site/Laterality Comments CYSTECTOMY 02/06/2014 - 02/05/2015 Medical History Medical History Date Comments Hypertension Cancer (HCC) bladder Arthritis Cardiac disease Family History Medical History Relation Name Comments Cancer Father Hypertension Father Arthritis Mother Relation Name Status Comments Father Mother Social History Tobacco Use Types Packs/Day Years Used Date Current Every Day Smoker Cigarettes 0.5 Smokeless Tobacco: Never Used Alcohol Use Drinks/Week oz/Week Comments Yes rare Sex Assigned at Date Recorded Not on file Last Filed Vital Signs Not on file Plan of Treatment Health Maintenance Due Date Last Done Comments COLONOSCOPY SCREENING 1995 SHINGLES VACCINES (#1) 1995 65+ PNEUMOCOCCAL VACCINE (1 of 1 - PPSV23) 2010 INFLUENZA VACCINE 09/07/2019 Results Not on fileafter 01/15/2019 Insurance Payer Benefit Plan / Subscriber ID Effective Dates Phone Addre ss Type Group AETNA AETNA PPO OPEN [id number] 2000-Present PPO CHOICE MEDICARE MEDICARE PART A [id number] 2009-Present [place] Medicare [place] B Advance Directives For more information, please contact: [phone] Type Date Recorded 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
--- OUTSIDE RECORDS SUMMARY | 2020-01-16 05:29 | XMS REPORT | Clinical Summary ---
:1945 Author Organization [facility] Address [address] [place] [address] Care Team Providers Name Role Phone MD Aayush Primary Care Provider Allergies Active Allergy Reactions Severity Noted Date Comments Ciprofloxacin Palpitations Low 09/07/2017 Heart rate inc rease. Clonidine High 01/28/2017 Makes him extre arron depressed Coconut Swelling 01/29/2017 Lip and tongue swelling Meperidine 01/16/2017 Other reaction( s): Unknown Pseudoephedrine Other (See Comments) 01/28/2017 Irre gular heart beat Medications Medication Sig Dispensed Refills Start Date End Date Status rosuvastatin Take 10 mg by 0 Act naye (CRESTOR) 10 MG mouth At bedtime tablet . clopidogreL (PLAVIX) Take 1 tablet 30 tablet 1 12/19/201902/06 Active 75 mg tablet (75 mg total) by mouth daily for 60 days. aspirin 81 MG EC Take 1 tablet 360 tablet 0 12/20/2019 021 Active tablet (81 mg total) by mouth daily. dilTIAZem (CARDIZEM) Take 1 tablet 120 tablet 1 12/19/201912/2020 Active 60 MG tablet (60 mg total) by mouth every 6 (six) hours for 60 days. Additional Information Patient taking differently: 240 mg Oral Daily, Reason: Other, Reported on 01/03/2020 10:13 AM nebivoloL Take 1 tablet 30 tablet 1 12/20/2019 02/18/2020 Acti ve (BYSTOLIC) 10 MG (10 mg total) tablet by mouth daily for 60 days. traMADoL (Ultram) Take 1 tablet 20 tablet 0 2020 021 Active 50 mg tablet (50 mg total) by mouth every 6 (six) hours as needed for Pain. Max Daily Amount: 200 mg nebivolol Take 10 mg by 0 12/19/2019 Disco ntinued (BYSTOLIC) 10 MG mouth daily ( Stop Taking at tablet Taken in AM. Dischar ge) dilTIAZem (CARDIZEM Take 240 mg by 0 12/18 Discontinued CD) 240 MG 24 hr mouth daily. (Stop Taking at capsule Discharge) clopidogrel Take 75 mg by 0 12/19/2019 Dis continued (PLAVIX) 75 mg mouth daily. (S top Taking at tablet Discharge) aspirin 81 MG EC Take 81 mg by 0 0 Discontinued tablet mouth daily. (Stop T aking at Discharge) VALSARTAN ORAL Take 160 mg by 0 12/19/2019 Discontinued mouth daily . (Stop Taking at Discharge) nebivolol Take 5 mg by 0 12/19/2019 Discon tinued (BYSTOLIC) 5 MG mouth nightly. (Stop Taking at tablet Discharge) chlorhexidine Apply 1 Bottle 1 Bottle 0 12/06/2019 12/06/2019 gluconate 2 % topically once LiqdIndications: for 1 dose. Aneurysm of infrarenal abdominal aorta (HCC) valsartan-hydrochlo Take 1 tablet 0 11/18/201912/18 Discontinued rothiazide by mouth (Stop Jacky ing at (DIOVAN-HCT) daily. Dischar ge) 160-12.5 mg per tablet aspirin 81 MG EC Take 1 tablet 360 tablet 0 12/20/2019 020 Discontinued tablet (81 mg total) by mouth daily. dilTIAZem Take 1 tablet 120 tablet 1 12/19/2019 12/19/2019 Dis continued (CARDIZEM) 60 MG (60 mg total) tablet by mouth every 6 (six) hours for 60 days. nebivoloL Take 1 tablet 30 tablet 1 12/20/2019 12/19/2019 Disc ontinued (BYSTOLIC) 10 MG (10 mg total) tablet by mouth daily for 60 days. clopidogreL Take 1 tablet 30 tablet 1 12/19/2019 12/19/2019 Di scontinued (PLAVIX) 75 mg (75 mg total) tablet by mouth daily for 60 days. Hospital, Clinic, Ordered Dose Route Frequency Start Date End Date Status or Other Facility Administered Medication chlorhexidine Top Daily as needed 12/11/2019 Discontinued (HIBICLENS) 0 external liquid 4% Active Problems Problem Noted Date PVD (peripheral vascular disease) 2020 Lower limb ischemia- Left lower extremity, chronic vs. acute 12/13/2019 post-operatively Abdominal aortic aneurysm (HCC) s/p EVAR 12/13/201906/2019 CKD (chronic kidney disease) stage 3, GFR 30-59 ml/min 12/12/2019 Ascending aortic aneurysm 11/05/2019 Bladder cancer 08/25/2017 CVA (cerebral vascular accident) (HCC) with residual l eft-sided weakness 01/28/2017 Paroxysmal atrial fibrillation 01/28/2017 CLL (chronic lymphocytic leukemia) 01/28/2017 Essential hypertension 01/28/2017 History of lacunar cerebrovascular accident (CVA) 01/07 Tobacco use Resolved Problems Problem Noted Date Resolved Date Aneurysm of infrarenal abdominal aorta 1 02/11/2019 Encounters Date Type Specialty Care Team Description 2020 Surgery Pallister, ANGIOGRAM,CORON BILLY Colton Lyn MD 2020 Hospital Encounter Pallister, Ascending aortic Colton Lyn MD aneurysm ( HCC) 01/03/2020 Office Visit Cardiology Jimier, Pre-op testing Diana Morris (Primary Dx) Adelfo Bergeron RN 01/03/2020 Travel 12/18/2019 Orders Only General Internal Medicine 12/13/2019 Surgery Pallister, ANGIOGRAM-LOWER Colton Lyn MD EXTREMITY 12/13/2019 Anesthesia Event Mary Milton MD Roberts, Jared Remington 12/13/2019 Surgery Delano aPyne REPAIR,EVAR- ENDOVAS MD Kenny CULAR AORTIC ANEURYSM 12/13/2019 Anesthesia Event Isidoro Pierce MD Xu, Wen Zhu 12/12/2019 - Hospital Encounter Cardiology Delano Payne Abdomi nal aortic aneurysm (AAA) without rupture (HCC); 12/19/2019 MD Kenny CLL (chronic l ymphocytic leukemia) (HCC); Acute respirato ry insufficiency, postoperative; Ischemia of sharon t; Ascending aorti c aneurysm (HCC); 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); Lower limb isch emia 12/12/2019 Travel 12/11/2019 Hospital Encounter Radiology 12/11/2019 Office Visit Cardiology Javi Looney, Aneurysm of infrarenal abdominal aorta (HCC) (Primary Dx); Pre-op testing Adelfo Bergeron, Delano Stout MD 12/11/2019 Hospital Encounter Cardiology Payne, Casey Aneurysm of Gee, GASTROENTEROLOGY TEACHER infrarenal abdominal aorta (HCC) 12/11/2019 Orders Only General Internal Medicine 12/11/2019 Travel 11/27/2019 Orders Only Cardiology Payne, Casey Aneurysm of Gee, GASTROENTEROLOGY TEACHER infrarenal abdominal aorta (HCC) (Primary Dx) 11/21/2019 Hospital Encounter Respiratory Therapy Payne, Casey An eurysm of infrarenal abdominal aorta (HCC); Gee, NP Tobacco use 11/14/2019 Orders Only Cardiology Payne, Casey Aneurysm of Gee, GASTROENTEROLOGY TEACHER infrarenal abdominal aorta (HCC) (Primary Dx) 11/13/2019 Orders Only Cardiology Payne, Casey Tobacco use (Pr imary Dx); MUNA Flynn Aneurysm of inf rarenal abdominal aorta (HCC) 11/05/2019 Office Visit Cardiology Delano Payne Ascending ao rtic aneurysm (HCC) (Primary Dx); MD Kenny Aneurysm of infrarenal abdominal aorta ( HCC); Payne, Casey Tobacco use MUNA Flynn 11/05/2019 Hospital Encounter Computed Tomography Payne, Casey Ab dominal aortic aneurysm (AAA) without rupture (HCC); Gee, GASTROENTEROLOGY TEACHER Ascending aortic aneurysm (HCC); [facility] 11/05/2019 Hospital Encounter Computed Tomography Payne, Casey Ab dominal aortic aneurysm without rupture (HCC); MUNA Flynn Abdominal aortic aneurysm (AAA) without rupture (HCC) [facility] 10/18/2019 Orders Only Cardiology Delano Payne Abdominal ao rtic aneurysm (AAA) without rupture (HCC) (Primary Dx); MD Kenny Abdominal aort ic aneurysm without rupture (HCC) 10/18/2019 Orders Only Cardiology Delano Payne Abdominal ao rtic aneurysm (AAA) without rupture (HCC) (Primary Dx); MD Kenny Ascending aort ic aneurysm (HCC); Aortic valve di sease after 01/15/2019 Family History Medical History Relation Name Comments Aneurysm Father abdominal, smoke r COPD Mother Relation Name Status Comments Father Mother Social History Tobacco Use Types Packs/Day Years Used Date Former Smoker 0.5 50 Quit: 2009 Smokeless Tobacco: Never Used Tobacco Cessation: Counseling Given: Yes Alcohol Use Drinks/Week oz/Week Comments Not Currently Sex Assigned at Date Recorded Not on file COVID-19 Exposure Response Date Recorded In the last month, have you been in contact with No / Unsure 01/03/2020 10:16 AM BULB FILLER someone who was confirmed or suspected to have Coronavirus / COVID-19? Last Filed Vital Signs Vital Sign Reading Time Taken Comments Blood Pressure 140/66 2020 2:00 PM BULB FILLER Pulse 58 2020 2:00 PM BULB FILLER Temperature 48 C (118.4 F) 2020 11:52 AM BULB FILLER Respiratory Rate 18 2020 2:00 PM BULB FILLER Oxygen Saturation 98% 2020 1:00 PM BULB FILLER Inhaled Oxygen Concentration 21% 12/18/2019 7:44 PM BULB FILLER Weight 85.3 kg (188 lb) 2020 8:39 AM BULB FILLER Height 180.3 cm (5' 10.98") 2020 8:39 AM BULB FILLER Body Mass Index 26.23 2020 8:39 AM BULB FILLER Plan of Treatment Health Maintenance Due Date Last Done Comments COLON CANCER SCREENING COLONOSCOPY 1945 PNEUMOCOCCAL 65+ YRS (1 of 1 - [id number] PCV13) 2010 MEDICARE ANNUAL WELLNESS (YEAR 2 or FIRST YEAR if no 12/08/2010 IPPE) INFLUENZA VACCINE (#1) 2019 Implants Implanted Type Area Nurse Practitioner Home Assessments Device Identifier Shelf Model / Expiration Serial / Date Lot Stent Grft Excluder C3 31x14.5 [id number] - [id number] IMPLANTS N /A: LEANDRO SEBASTIAN & [id number] 10/15/2022 [id number] / Implanted: Qty: 1 on 12/13/2019 by Delano Barrett MD at [facility] Aorta ASSC:MED PRDT [id number] / Description:ABDOMINAL AORTA- RIGHT ILIAC Grft Leg Excluder [id number] - [id number] IMPLANTS L eft: LEANDRO SEBASTIAN & [id number] 06/23/2022 [id number] / Implanted: Qty: 1 on 12/13/2019 by Delano Barrett MD at [facility] Iliac ASSC:MED PRDT [id number] / Description:LEFT COMMON ILIAC. Stent Grft Excluder [id number] - [id number] IMPLANTS R ight: WL GORE & [id number] 01/04/2023 [id number] / Implanted: Qty: 1 on 12/13/2019 by Delano Barrett MD at [facility] Iliac ASSC:MED [id number] / PRDT Description:RIGHT COMMON ILIAC Patch Periph Vascu-Grd 0.8x8cm [id number] - [id number] IMPLAN TS Left: SYNOVIS [id number] 07/16/2024 [id number] / Implanted: Qty: 1 on 12/13/2019 by Colton Gupta MD at [facility] Arterial LIFE [id number] / TECH:SURG [id number] INNOV Description:Site: LEFT LOWER EXTREMITY Angio Seal Left: Arterial TERUMO VASCUTEK 09/06/19 21 [id number] / Implanted: Qty: 1 on 12/13/2019 by Colton Gupta MD at [facility] / [id number] Angio-Seal Vip Left: Arm Upper TERUMO MEDICAL MIGUEL. 10/06/2020 [id number] / Implanted: Qty: 1 on 2020 by Colton Gupta MD at [facility] / [id number] Procedures Procedure Name Priority Date/Time Associated Diagnosis Comme nts POCT-ACT Routine 2020 11:24 AM Results for this BULB FILLER procedure are i n the results section. ECG 12-LEAD Routine 2020 10:50 AM Results for this BULB FILLER procedure are i n the results section. ANGIOGRAM,CORONARY 2020 10:04 AM Peripheral vasc ular BULB FILLER disease (HCC) Case Notes 6TOP CARDIAC CATH REPORT - 2020 Result s for this SCAN procedure are i n the results section . SARS-COV2/RT-PCR Routine 01/03/2020 10:25 AM Pre-op testing Re sults for this ([facility] REF [facility]) BULB FILLER procedure are in the results section . POCT-GLUCOSE METER Routine 12/19/2019 7:18 AM Re sults for this BULB FILLER procedure are i n the results section . CBC (HEMOGRAM ONLY) Routine 12/19/2019 4:49 AM R esults for this BULB FILLER procedure are i n the results section . PHOSPHORUS Routine 12/19/2019 4:49 AM Results for this BULB FILLER procedure are i n the results section . MAGNESIUM Routine 12/19/2019 4:49 AM Results for this BULB FILLER procedure are i n the results section . BASIC METABOLIC PANEL Routine 12/19/2019 4:49 AM Results for this (7) BULB FILLER procedure are i n the results section . POCT-GLUCOSE METER Routine 12/18/2019 9:00 PM Re sults for this BULB FILLER procedure are i n the results section . POCT-GLUCOSE METER Routine 12/18/2019 4:56 PM Re sults for this BULB FILLER procedure are i n the results section . POCT-GLUCOSE METER Routine 12/18/2019 11:16 AM Re sults for this BULB FILLER procedure are i n the results section . ECG 12-LEAD Routine 12/18/2019 8:29 AM Results for this BULB FILLER procedure are i n the results section . 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 rate has increased BY [address] now depressed in Inferior leads ST now depressed in Anterola teral leads Nonspecific T wave abnormali ty now evident in Inferior leads T wave inversion now evident in Anterolateral leads POCT-GLUCOSE METER Routine 12/18/2019 7:37 AM Re sults for this BULB FILLER procedure are i n the results section. SARS-COV2/RT-PCR ([facility] Routine 12/18/2019 5:39 AM Results for this & REF LABS) BULB FILLER procedure are i n the results section. CBC (HEMOGRAM ONLY) Routine 12/18/2019 5:24 AM R esults for this BULB FILLER procedure are i n the results section. PHOSPHORUS Routine 12/18/2019 5:24 AM Results for this BULB FILLER procedure are i n the results section. MAGNESIUM Routine 12/18/2019 5:24 AM Results for this BULB FILLER procedure are i n the results section. BASIC METABOLIC PANEL Routine 12/18/2019 5:24 AM Results for this (7) BULB FILLER procedure are i n the results section. POCT-GLUCOSE METER Routine 12/17/2019 9:25 PM Re sults for this BULB FILLER procedure are i n the results section. POCT-GLUCOSE METER Routine 12/17/2019 4:03 PM Re sults for this BULB FILLER procedure are i n the results section. POCT-GLUCOSE METER Routine 12/17/2019 11:59 AM Re sults for this BULB FILLER procedure are i n the results section. POCT-GLUCOSE METER Routine 12/17/2019 7:49 AM Re sults for this BULB FILLER procedure are i n the results section. CBC (HEMOGRAM ONLY) Routine 12/17/2019 5:11 AM R esults for this BULB FILLER procedure are i n the results section. PHOSPHORUS Routine 12/17/2019 5:11 AM Results for this BULB FILLER procedure are i n the results section. MAGNESIUM Routine 12/17/2019 5:11 AM Results for this BULB FILLER procedure are i n the results section. BASIC METABOLIC PANEL Routine 12/17/2019 5:11 AM Results for this (7) BULB FILLER procedure are i n the results section. POCT-GLUCOSE METER Routine 12/16/2019 9:16 PM Re sults for this BULB FILLER procedure are i n the results section. POCT-GLUCOSE METER Routine 12/16/2019 4:18 PM Re sults for this BULB FILLER procedure are i n the results section. POCT-GLUCOSE METER Routine 12/16/2019 12:02 PM Re sults for this BULB FILLER procedure are i n the results section. POCT-GLUCOSE METER Routine 12/16/2019 7:39 AM Re sults for this BULB FILLER procedure are i n the results section. CBC (HEMOGRAM ONLY) Routine 12/16/2019 5:13 AM R esults for this BULB FILLER procedure are i n the results section. APTT Routine 12/16/2019 5:13 AM Results for this BULB FILLER procedure are i n the results section. PHOSPHORUS Routine 12/16/2019 5:13 AM Results for this BULB FILLER procedure are i n the results section. MAGNESIUM Routine 12/16/2019 5:13 AM Results for this BULB FILLER procedure are i n the results section. BASIC METABOLIC PANEL Routine 12/16/2019 5:13 AM Results for this (7) BULB FILLER procedure are i n the results section. POCT-GLUCOSE METER Routine 12/15/2019 9:20 PM Re sults for this BULB FILLER procedure are i n the results section. APTT Routine 12/15/2019 4:14 AM Results for this BULB FILLER procedure are i n the results section. PHOSPHORUS STAT 12/15/2019 4:10 AM Results for this BULB FILLER procedure are i n the results section. MAGNESIUM STAT 12/15/2019 4:10 AM Results for this BULB FILLER procedure are i n the results section. BASIC METABOLIC PANEL STAT 12/15/2019 4:10 AM Results for this (7) BULB FILLER procedure are i n the results section. CBC (HEMOGRAM ONLY) Routine 12/15/2019 4:09 AM R esults for this BULB FILLER procedure are i n the results section. PREPARE RBC STAT 12/14/2019 11:54 PM Results for this BULB FILLER procedure are i n the results section. POCT-GLUCOSE METER Routine 12/14/2019 10:34 PM Re sults for this BULB FILLER procedure are i n the results section. APTT Routine 12/14/2019 9:01 PM Results for this BULB FILLER procedure are i n the results section. POCT-GLUCOSE METER Routine 12/14/2019 6:05 PM Re sults for this BULB FILLER procedure are i n the results section. APTT Routine 12/14/2019 2:42 PM Results for this BULB FILLER procedure are i n the results section. MAGNESIUM STAT 12/14/2019 1:58 PM Results for this BULB FILLER procedure are i n the results section. BASIC METABOLIC PANEL STAT 12/14/2019 1:58 PM Results for this (7) BULB FILLER procedure are i n the results section. POCT-GLUCOSE METER Routine 12/14/2019 1:47 PM Re sults for this BULB FILLER procedure are i n the results section. POCT-GLUCOSE METER Routine 12/14/2019 9:00 AM Re sults for this BULB FILLER procedure are i n the results section. APTT Routine 12/14/2019 7:52 AM Results for this BULB FILLER procedure are i n the results section. XR CHEST 1 VIEW STAT 12/14/2019 7:50 AM Resul ts for this PORTABLE/BEDSIDE BULB FILLER procedure a re in the results section. APTT Routine 12/14/2019 5:07 AM Results for this BULB FILLER procedure are i n the results section. BLOOD GAS, ARTERIAL Routine 12/14/2019 5:07 AM R esults for this BULB FILLER procedure are i n the results section. PHOSPHORUS STAT 12/14/2019 3:28 AM Results for this BULB FILLER procedure are i n the results section. MAGNESIUM STAT 12/14/2019 3:28 AM Results for this BULB FILLER procedure are i n the results section. BASIC METABOLIC PANEL STAT 12/14/2019 3:28 AM Results for this (7) BULB FILLER procedure are i n the results section. CBC (HEMOGRAM ONLY) Routine 12/14/2019 3:28 AM R esults for this BULB FILLER procedure are i n the results section. POCT-GLUCOSE METER Routine 12/13/2019 11:24 PM Re sults for this BULB FILLER procedure are i n the results section. XR CHEST 1 VIEW STAT 12/13/2019 11:20 PM Resul ts for this PORTABLE/BEDSIDE BULB FILLER procedure a re in the results section. CALCIUM, IONIZED Routine 12/13/2019 11:12 PM Resu lts for this BULB FILLER procedure are i n the results section. BLOOD GAS, ARTERIAL Routine 12/13/2019 11:12 PM R esults for this BULB FILLER procedure are i n the results section. MAGNESIUM Routine 12/13/2019 11:10 PM Results for this BULB FILLER procedure are i n the results section. PHOSPHORUS Routine 12/13/2019 11:10 PM Results for this BULB FILLER procedure are i n the results section. PROTHROMBIN TIME/INR Routine 12/13/2019 11:10 PM Results for this BULB FILLER procedure are i n the results section. APTT Routine 12/13/2019 11:10 PM Results for this BULB FILLER procedure are i n the results section. BASIC METABOLIC PANEL Routine 12/13/2019 11:10 PM Results for this (7) BULB FILLER procedure are i n the results section. CBC (HEMOGRAM ONLY) Routine 12/13/2019 11:10 PM R esults for this BULB FILLER procedure are i n the results section. POCT-ACT Routine 12/13/2019 9:38 PM Results for this BULB FILLER procedure are i n the results section. POCT-ACT Routine 12/13/2019 8:51 PM Results for this BULB FILLER procedure are i n the results section. HGB/HCT (H&H) - STAT STAT 12/13/2019 8:48 PM Results for this LAB BULB FILLER procedure are i n the results section. GLUCOSE-STAT LAB STAT 12/13/2019 8:48 PM Resu lts for this BULB FILLER procedure are i n the results section. POTASSIUM-STAT LAB STAT 12/13/2019 8:48 PM Re sults for this BULB FILLER procedure are i n the results section. SODIUM NA-STAT LAB STAT 12/13/2019 8:48 PM Re sults for this BULB FILLER procedure are i n the results section. BLOOD GAS, ARTERIAL STAT 12/13/2019 8:48 PM R esults for this BULB FILLER procedure are i n the results section. CALCIUM, IONIZED STAT 12/13/2019 8:48 PM Resu lts for this BULB FILLER procedure are i n the results section. BLOOD GAS, ARTERIAL STAT 12/13/2019 8:48 PM R esults for this BULB FILLER procedure are i n the results section. POCT-ACT Routine 12/13/2019 8:17 PM Results for this BULB FILLER procedure are i n the results section. TRANSFUSE Routine 12/13/2019 7:48 PM LEUKO-REDUCED RED BULB FILLER BLOOD CELLS TRANSFUSE Routine 12/13/2019 7:46 PM LEUKO-REDUCED RED BULB FILLER BLOOD CELLS POCT-ACT Routine 12/13/2019 7:37 PM Results for this BULB FILLER procedure are i n the results section. HGB/HCT (H&H) - STAT STAT 12/13/2019 7:31 PM Results for this LAB BULB FILLER procedure are i n the results section. GLUCOSE-STAT LAB STAT 12/13/2019 7:31 PM Resu lts for this BULB FILLER procedure are i n the results section. POTASSIUM-STAT LAB STAT 12/13/2019 7:31 PM Re sults for this BULB FILLER procedure are i n the results section. SODIUM NA-STAT LAB STAT 12/13/2019 7:31 PM Re sults for this BULB FILLER procedure are i n the results section. BLOOD GAS, ARTERIAL STAT 12/13/2019 7:31 PM R esults for this BULB FILLER procedure are i n the results section. CALCIUM, IONIZED STAT 12/13/2019 7:31 PM Resu lts for this BULB FILLER procedure are i n the results section. BLOOD GAS, ARTERIAL STAT 12/13/2019 7:31 PM R esults for this BULB FILLER procedure are i n the results section. POCT-ACT Routine 12/13/2019 6:54 PM Results for this BULB FILLER procedure are i n the results section. HGB/HCT (H&H) - STAT STAT 12/13/2019 6:18 PM Results for this LAB BULB FILLER procedure are i n the results section. GLUCOSE-STAT LAB STAT 12/13/2019 6:18 PM Resu lts for this BULB FILLER procedure are i n the results section. POTASSIUM-STAT LAB STAT 12/13/2019 6:18 PM Re sults for this BULB FILLER procedure are i n the results section. SODIUM NA-STAT LAB STAT 12/13/2019 6:18 PM Re sults for this BULB FILLER procedure are i n the results section. BLOOD GAS, ARTERIAL STAT 12/13/2019 6:18 PM R esults for this BULB FILLER procedure are i n the results section. LACTIC ACID, ARTERIAL STAT 12/13/2019 6:18 PM Results for this BULB FILLER procedure are i n the results section. CALCIUM, IONIZED STAT 12/13/2019 6:18 PM Resu lts for this BULB FILLER procedure are i n the results section. BLOOD GAS, ARTERIAL STAT 12/13/2019 6:18 PM R esults for this BULB FILLER procedure are i n the results section. THROMBECTOMY-LOWER 12/13/2019 5:10 PM Ischemia BULB FILLER ANGIOGRAM-LOWER 12/13/2019 5:10 PM Ischemia EXTREMITY BULB FILLER HC ARTERIAL(RAFIQ W Routine 12/13/2019 12:51 PM Res ults for this DOPPLER)ONLY BULB FILLER procedure are i n the results section. HC ARTERIAL DOPPLER STAT 12/13/2019 12:51 PM R esults for this LEGS WINTER BULB FILLER procedure are i n the results section. URINALYSIS W/ REFLEX Routine 12/13/2019 11:33 AM Results for this URINE CULTURE BULB FILLER procedure are in the results section. URINE CULTURE Routine 12/13/2019 11:33 AM Results for this BULB FILLER procedure are i n the results section. CBC W/PLT COUNT & AUTO STAT 12/13/2019 11:31 AM Results for this DIFFERENTIAL BULB FILLER procedure are i n the results section. APTT STAT 12/13/2019 11:31 AM Results for this BULB FILLER procedure are i n the results section. PROTHROMBIN TIME/INR STAT 12/13/2019 11:31 AM Results for this BULB FILLER procedure are i n the results section. PHOSPHORUS STAT 12/13/2019 11:31 AM Results for this BULB FILLER procedure are i n the results section. MAGNESIUM STAT 12/13/2019 11:31 AM Results for this BULB FILLER procedure are i n the results section. CBC W/PLT COUNT & AUTO STAT 12/13/2019 11:31 AM Results for this DIFFERENTIAL BULB FILLER procedure are i n the results section. BASIC METABOLIC PANEL STAT 12/13/2019 11:31 AM Results for this (7) BULB FILLER procedure are i n the results section. XR CHEST 1 VIEW STAT 12/13/2019 11:20 AM Resul ts for this PORTABLE/BEDSIDE BULB FILLER procedure a re in the results section. POCT-ACT Routine 12/13/2019 10:38 AM Results for this BULB FILLER procedure are i n the results section. POCT-ACT Routine 12/13/2019 9:24 AM Results for this BULB FILLER procedure are i n the results section. POCT-ACT Routine 12/13/2019 9:10 AM Results for this BULB FILLER procedure are i n the results section. HGB/HCT (H&H) - STAT STAT 12/13/2019 8:13 AM Results for this LAB BULB FILLER procedure are i n the results section. GLUCOSE-STAT LAB STAT 12/13/2019 8:13 AM Resu lts for this BULB FILLER procedure are i n the results section. POTASSIUM-STAT LAB STAT 12/13/2019 8:13 AM Re sults for this BULB FILLER procedure are i n the results section. SODIUM NA-STAT LAB STAT 12/13/2019 8:13 AM Re sults for this BULB FILLER procedure are i n the results section. BLOOD GAS, ARTERIAL STAT 12/13/2019 8:13 AM R esults for this BULB FILLER procedure are i n the results section. CALCIUM, IONIZED STAT 12/13/2019 8:13 AM Resu lts for this BULB FILLER procedure are i n the results section. BLOOD GAS, ARTERIAL STAT 12/13/2019 8:13 AM R esults for this BULB FILLER procedure are i n the results section. REPAIR,EVAR-ENDOVASCUL 12/13/2019 7:03 AM Ruptured ab dominal AR AORTIC ANEURYSM BULB FILLER aortic aneurysm (AAA) (HCC) Special Needs (ICU BED NEEDED) (CELLAVISION MANUAL STAT 12/13/2019 4:22 AM R esults for this DIFF) BULB FILLER procedure are i n the results section. CBC WITH PLATELET COUNT STAT 12/13/2019 4:22 AM Results for this + MANUAL DIFF BULB FILLER procedure are in the results section. PHOSPHORUS STAT 12/13/2019 4:22 AM Results for this BULB FILLER procedure are i n the results section. MAGNESIUM STAT 12/13/2019 4:22 AM Results for this BULB FILLER procedure are i n the results section. CBC W/PLT+MANUAL DIFF STAT 12/13/2019 4:22 AM Results for this BULB FILLER procedure are i n the results section. HEMOGLOBIN A1C Routine 12/13/2019 4:22 AM Result s for this BULB FILLER procedure are i n the results section. BASIC METABOLIC PANEL STAT 12/13/2019 4:22 AM Results for this (7) BULB FILLER procedure are i n the results section. PREPARE RBC Routine 12/12/2019 10:21 PM Results for this BULB FILLER procedure are i n the results section. POCT-GLUCOSE METER Routine 12/12/2019 9:26 PM Re sults for this BULB FILLER procedure are i n the results section. PROTHROMBIN TIME/INR STAT 12/12/2019 6:32 PM Results for this BULB FILLER procedure are i n the results section. POCT-GLUCOSE METER Routine 12/12/2019 4:40 PM Re sults for this BULB FILLER procedure are i n the results section. BASIC METABOLIC PANEL Routine 12/12/2019 4:27 PM Results for this (7) BULB FILLER procedure are i n the results section. VASCULAR DIAGRAM -SCAN 12/12/2019 Resul ts for this procedure are i n the results section. ANTIBODY IDENTIFICATION STAT 12/11/2019 4:23 PM Aneurysm o f Results for this BULB FILLER infrarenal procedure are i n abdominal aorta the results (HCC) section. HC CAROTID DOPPLER WINTER Routine 12/11/2019 1:52 PM Aneurysm of Results for this BULB FILLER infrarenal procedure are i n abdominal aorta the results (HCC) section. XR CHEST 2 VIEWS Routine 12/11/2019 12:33 PM Aneurysm of Resu lts for this BULB FILLER infrarenal procedure are i n abdominal aorta the results (HCC) section. ECG 12-LEAD Routine 12/11/2019 12:01 PM BULB FILLER Procedure Note - Interface, External Ris In - 12/11/2019 1:28 PM BULB FILLER Ventricular Rate 59 BPM Atrial Rate 59 BPM P-R Interval 230 ms QRS Duration 88 ms Q-T Interval 490 ms QTC Calculation(Bazett) 485 ms P [place] 60 degrees R [place] 27 degrees T [place] 71 degrees Sinus bradycardia with 1st d egree A-V block Prolonged QT Abnormal ECG When compared with ECG of 15:05, No significant change was fo und ECG 12-LEAD Routine 12/11/2019 12:01 PM Aneurysm of Results for this BULB FILLER infrarenal procedure are i n abdominal aorta the results (HCC) section. SARS-COV2/RT-PCR (HS Routine 12/11/2019 11:49 AM Pre-op test ing Results for this & REF LABS) BULB FILLER procedure are i n the results section. (CELLAVISION MANUAL Routine 12/11/2019 10:38 AM Aneurysm of R esults for this DIFF) BULB FILLER infrarenal procedure are i n abdominal aorta the results (HCC) section. CBC W/PLT COUNT & AUTO Routine 12/11/2019 10:38 AM Aneurysm of Results for this DIFFERENTIAL BULB FILLER infrarenal procedure are i n abdominal aorta the results (HCC) section. DIRECT AHG STAT 12/11/2019 10:38 AM Aneurysm of Results for this (GARTH)/DIRECT KELVIN BULB FILLER infrarenal procedur e are in abdominal aorta the results (HCC) section. TYPE AND SCREEN, STAT 12/11/2019 10:38 AM Aneurysm of Resu lts for this AUTOMATED BULB FILLER infrarenal procedure are i n abdominal aorta the results (HCC) section. HEMOGLOBIN A1C Routine 12/11/2019 10:38 AM Aneurysm of Result s for this BULB FILLER infrarenal procedure are i n abdominal aorta the results (HCC) section. Pre-op testing LACTATE DEHYDROGENASE Routine 12/11/2019 10:38 AM Aneurysm of Results for this (LDH) BULB FILLER infrarenal procedure are i n abdominal aorta the results (HCC) section. URINALYSIS W/ Routine 12/11/2019 10:38 AM Aneurysm of Results for this MICROSCOPIC BULB FILLER infrarenal procedure are i n abdominal aorta the results (HCC) section. HEPATITIS C ANTIBODY Routine 12/11/2019 10:38 AM Aneurysm of Results for this BULB FILLER infrarenal procedure are i n abdominal aorta the results (HCC) section. LIPASE Routine 12/11/2019 10:38 AM Aneurysm of Results for this BULB FILLER infrarenal procedure are i n abdominal aorta the results (HCC) section. AMYLASE Routine 12/11/2019 10:38 AM Aneurysm of Results for this BULB FILLER infrarenal procedure are i n abdominal aorta the results (HCC) section. HEPATITIS B PANEL Routine 12/11/2019 10:38 AM Aneurysm of Res ults for this BULB FILLER infrarenal procedure are i n abdominal aorta the results (HCC) section. RETICULOCYTE COUNT Routine 12/11/2019 10:38 AM Aneurysm of Re sults for this BULB FILLER infrarenal procedure are i n abdominal aorta the results (HCC) section. APTT Routine 12/11/2019 10:38 AM Aneurysm of Results for this BULB FILLER infrarenal procedure are i n abdominal aorta the results (HCC) section. PROTHROMBIN TIME/INR Routine 12/11/2019 10:38 AM Aneurysm of Results for this BULB FILLER infrarenal procedure are i n abdominal aorta the results (HCC) section. PROTEIN, TOTAL Routine 12/11/2019 10:38 AM Aneurysm of Result s for this BULB FILLER infrarenal procedure are i n abdominal aorta the results (HCC) section. ALT (SGPT) Routine 12/11/2019 10:38 AM Aneurysm of Results for this BULB FILLER infrarenal procedure are i n abdominal aorta the results (HCC) section. AST (SGOT) Routine 12/11/2019 10:38 AM Aneurysm of Results for this BULB FILLER infrarenal procedure are i n abdominal aorta the results (HCC) section. BILIRUBIN, DIRECT Routine 12/11/2019 10:38 AM Aneurysm of Res ults for this BULB FILLER infrarenal procedure are i n abdominal aorta the results (HCC) section. BILIRUBIN, ADULT TOTAL Routine 12/11/2019 10:38 AM Aneurysm of Results for this BULB FILLER infrarenal procedure are i n abdominal aorta the results (HCC) section. ALKALINE PHOSPHATASE Routine 12/11/2019 10:38 AM Aneurysm of Results for this BULB FILLER infrarenal procedure are i n abdominal aorta the results (HCC) section. ALBUMIN Routine 12/11/2019 10:38 AM Aneurysm of Results for this BULB FILLER infrarenal procedure are i n abdominal aorta the results (HCC) section. HC LAB HIV-1 AG Routine 12/11/2019 10:38 AM Aneurysm of Resul ts for this W/HIV-1&2 AB BULB FILLER infrarenal procedure are i n abdominal aorta the results (HCC) section. BASIC METABOLIC PANEL Routine 12/11/2019 10:38 AM Aneurysm of Results for this (7) BULB FILLER infrarenal procedure are i n abdominal aorta the results (HCC) section. CBC W/PLT COUNT & AUTO Routine 12/11/2019 10:38 AM Aneurysm of Results for this DIFFERENTIAL BULB FILLER infrarenal procedure are i n abdominal aorta the results (HCC) section. SPIROMETRY Routine 11/21/2019 10:30 AM Aneurysm of Results for this CDT infrarenal procedure are i n abdominal aorta the results (HCC) section. CTA CHEST Routine 11/05/2019 8:01 AM Abdominal aortic Resu lts for this CDT aneurysm (AAA) procedure are in without rupture the results (HCC) section. Ascending aortic aneurysm (HCC) Aortic valve disease CTA ABDOMEN & PELVIS STAT 11/05/2019 8:01 AM Abdominal aor tic Results for this CDT aneurysm without procedure a re in rupture (HCC) the results Abdominal aortic section. aneurysm (AAA) without rupture (HCC) POCT-CREATININE Routine 11/05/2019 7:25 AM Resul ts for this CDT procedure are i n the results section. after 01/15/2019 Results POC ACTIVATED CLOTTING TIME (2020 11:24 AM BULB FILLER)Only the most recent of9 resultswithin the time period is included. Activated Clotting 252 sec [facility] Comment: [facility] : 74-137 seconds, Baseline CENTER : TESTED AT [address], [address] : Software Sales Executive/Scrap Hoist Operator ID = [id number] for CLAU GREGG Specimen Blood Performing Organization Address City/State/Zipcode Phone Number [address] [address] CENTER ECG 12 lead (2020 10:50 AM BULB FILLER)Only the most recent of3 resultswithin the time period is included. Specimen Narrative Performed At Ventricular Rate 51 BPM GE MUSE Atrial Rate 166 BPM QRS Duration 92 ms Q-T Interval 524 ms QTC Calculation(Bazett) 482 ms P [place] 41 degrees R [place] -6 degrees T [place] 56 degrees Sinus bradycardia Cannot rule out Anterior infarct , age u ndetermined Prolonged QT Abnormal ECG 18 DEC 2019 Sinus bradycardia replaced AVNRT ST no longer depressed precordial leads QT has shortened Confirmed by MD MUSHTAQ, RADHA ([id number]) on 2020 1:28:53 PM Procedure Note Interface, External Ris In - 2020 1:29 PM BULB FILLER Ventricular Rate 51 BPM Atrial Rate 166 BPM QRS Duration 92 ms Q-T Interval 524 ms QTC Calculation(Bazett) 482 ms P [place] 41 degrees R [place] -6 degrees T [place] 56 degrees Sinus bradycardia Cannot rule out Anterior infarct , age u ndetermined Prolonged QT Abnormal ECG 18 DEC 2019 Sinus bradycardia replaced AVNRT ST no longer depressed precordial leads QT has shortened Confirmed by MD LANDIN YOCHAI ([id number]) on 2020 1:28:53 PM Performing Organization Address City/State/Zipcode Phone Number [facility] CARDIAC CATH REPORT - SCAN (2020) Narrative Performed At This result has an attachment that is no t available. Ordered by an unspecified provider. SARS-CoV2/RT-PCR ([facility]) (01/03/2020 10:25 AM BULB FILLER)Only the most recent of3 resultswithin the time period is included. SARS-COV2/RT-PCR Negative Not Detected, [facility] Negative, See [facility] external report CENTER for linked test SARS-COV-2 [facility] GENEVIEVE SHAFFER PERFORMING LAB [facility] Specimen Other - Nasopharyngeal wall structure (b ludwig structure) Narrative Performed At Negative result for this test determines that [facility] SARS-CoV-2 RNA was not present in the specimen above the Limit of Detection (LOD). However, Negative results do not preclude SARS-CoV-2 infection and should not be used as the sole basis for treatment or patient management decisions. Negative results must be combined with clinical observations, patient history, and epidemiological information. A false negative result may occur if a specimen is improperly collected, transported or handled. A false negative result should be considered if patient's recent exposures or clinical presentation indicate that COVID-19 (SARS-CoV-2) is likely and diagnostic tests for other causes of illness are negative. Re-testing should be considered in cases of suspected false negatives. The limit of detection for this assay is 800 copies/mL. This SARS CoV-2 test is a real-time RT-PCR test intended for the qualitative detection of nucleic acid from SARS-CoV-2 in a nasopharyngeal swab specimen collected from individuals suspected of COVID-19 by their healthcare provider. This test has not been Food and Drug Administration (FDA) cleared or approved. This is a modified version of an approved Emergency Use Authorization (EUA) and is in the process of review by the FDA. Once authorized by the FDA, the issued EUA will be effective until the declaration that circumstances exist justifying the authorization of the emergency use of in vitro diagnostic tests for detection and/or diagnosis of COVID-19 is terminated under Section 564(b)(2) of the Act or the EUA is revoked under Section 564(g) of the Act. Fact Sheet for Healthcare Providers: https://www.[employer]ordicplan/sites/default/files/pro duct/documents/Fact_Sheet_HC_Providers_Lyra_SA RS-CoV-2.pdf Fact Sheet for Healthcare Patients: https://www.[employer]ordicplan/sites/default/files/pro duct/documents/Fact_Sheet_Patients_Lyra_SARS-C oV-2.pdf Performing Laboratory: [address] [address] Performing Organization Address City/State/Zipcode Phone Number [address] [phone] CENTER POC-Glucose meter (12/19/2019 7:18 AM BULB FILLER)Only the most recent of21 results within the time period is included. Pathologist [facility] POC-Glucose Meter 121 (H) 70 - 110 mg/dL [facility] Comment: [facility] : TESTED AT [address], [address] CENTER : Software Sales Executive/Scrap Hoist Operator ID = [id number] for YESSI VERGARA Specimen Blood Performing Organization Address City/[facility]/Zipcode Phone Number [address] [phone] [place] CBC (hemogram only) (12/19/2019 4:49 AM BULB FILLER)Only the most recent of7 results within the time period is included. Pathologist Sig nature WBC 48.4 (H) 3.5 - 10.5 K/L [facility] RBC 2.60 (L) 4.63 - 6.08 M/L [facility] Hemoglobin 8.4 (L) 13.7 - 17.5 GM/DL [facility] Hematocrit 27.2 (L) 40.1 - 51.0 % [facility] MCV 104.6 (H) 79.0 - 92.2 fL [facility] MCH 32.3 (H) 25.7 - 32.2 pg [facility] MCHC 30.9 (L) 32.3 - 36.5 GM/DL [facility] RDW 16.7 (H) 11.6 - 14.4 % [facility] Platelets 139 (L) 150 - 450 K/CU MM [facility] MPV 10.6 9.4 - 12.4 fL [facility] nRBC 0 0 - 0 /100 WBC [facility] Specimen Blood Performing Organization Address City/[facility] Centercode Phone Number [address] [address] CENTER Phosphorus (12/19/2019 4:49 AM BULB FILLER)Only the most recent of9 resultswithin the time period is included. Pathologist Sig nature Phosphorus 2.9 2.3 - 4.7 mg/dL [facility] Specimen Blood Narrative Performed At Software Sales Executive ID - [facility] Performing Organization Address [facility] Phone Number [address] [address] CENTER Magnesium (12/19/2019 4:49 AM BULB FILLER)Only the most recent of10 resultswithin the time period is included. Pathologist Sig nature Magnesium 2.1 1.6 - 2.6 mg/dL [facility] Specimen Blood Narrative Performed At Software Sales Executive ID - [facility] Performing Organization Address City/[facility] Centercode Phone Number [address] [address] CENTER Basic Metabolic Panel (12/19/2019 4:49 AM BULB FILLER)Only the most recent of12 results within the time period is included. Sodium 140 136 - 145 meq/L [facility] Potassium 3.7 3.5 - 5.1 meq/L [facility] Chloride 109 (H) 98 - 107 meq/L [facility] CO2 25 22 - 29 meq/L [facility] BUN 20 7 - 21 mg/dL [facility] Creatinine 1.29 (H) 0.57 - 1.25 [facility] mg/dL [facility] Glucose 130 (H) 70 - 105 mg/dL [facility] Calcium 8.6 8.4 - 10.2 [facility] mg/dL [facility] EGFR 54Comment: ESTIMATED mL/min/1.[address] [facility] GFR IS NOT m [facility] ACCURATE [place] CREATININE CLEARANCE IN PREDICTING GLOMERULAR FILTRATION RATE. ESTIMATED GFR IS NOT APPLICABLE FOR DIALYSIS PATIENTS. Specimen Blood Narrative Performed At Software Sales Executive DEVIKA - [facility] Performing Organization Address City/[facility]/Zipcode Phone Number [address] [address] CENTER aPTT (12/16/2019 5:13 AM BULB FILLER)Only the most recent of9 resultswithin the time period is included. Pathologist Sig nature PTT 39.6 (H) 22.5 - 36.0 seconds [facility] Specimen Blood Performing Organization Address City/[facility]/Zipcode Phone Number [facility] [address] [place] [address] CENTER Prepare RBC (12/14/2019 11:54 PM BULB FILLER)Only the most recent of2 resultswithin the time period is included. Pathologist Sig nature Unit ABO O Pos SAFETRACE TX UNIT NUMBER [id number] SAFETRACE TX Status TX_TIMEINCHART SAFETRACE TX Blood Bank Product RED BLOOD CELLS SAFETRACE TX PRODUCT CODE [id number] SAFETRACE TX Unit ABO O Pos SAFETRACE TX UNIT NUMBER [id number] SAFETRACE TX Status WORK IN PROGRESS SAFETRACE TX Blood Bank Product RED BLOOD CELLS SAFETRACE TX PRODUCT CODE [id number] SAFETRACE TX Unit ABO A Pos SAFETRACE TX UNIT NUMBER [id number] SAFETRACE TX Status TX_TIMEINCHART SAFETRACE TX Blood Bank Product RED BLOOD CELLS SAFETRACE TX PRODUCT CODE [id number] SAFETRACE TX Unit ABO A Pos SAFETRACE TX UNIT NUMBER [id number] SAFETRACE TX Status WORK IN PROGRESS SAFETRACE TX Blood Bank Product RED BLOOD CELLS SAFETRACE TX PRODUCT CODE [id number] SAFETRACE TX CROSSMATCH INCOMPATIBLE SAFETRACE TX CROSSMATCH INCOMPATIBLE SAFETRACE TX CROSSMATCH INCOMPATIBLE SAFETRACE TX CROSSMATCH INCOMPATIBLE SAFETRACE TX Performing Organization Address City/State/Zipcode Phone Number SAFETRACE TX XR chest 1 view portable / bedside (12/14/2019 7:50 AM BULB FILLER)Only the most recent of3 resultswithin the time period is included. Specimen Narrative Performed At FINAL REPORT [facility] Chest, one view. HISTORY: post-extubation COMPARISON: Radiograph from yesterday IMPRESSION: Interval extubation. Interval removal of the NG tube. The right IJ sheath is unchanged in position. There is a trace left pleural effusion. Mild left basilar subsegmental atelectasis. No acute bone abnormality. The cardiac silhouette is unchanged. A partially vis ualized stent overlies the upper abdomen. There is minimal lucency over the right upper lateral abdomen which is indeterminate but unchanged the prior examination. If the patient is having abdominal pain, consider a KUB . Signed: Rai Pereira MD Report Verified Date/Time: 12/14/2019 08:16:23 Reading Location: [facility] B1 C013Y CT Body R eading Room Procedure Note Interface, External Ris In - 12/14/2019 8:18 AM BULB FILLER FINAL REPORT Chest, one view. HISTORY: post-extubation COMPARISON: Radiograph from yesterday IMPRESSION: Interval extubation. Interval removal of the NG tube. The right IJ sheath is unchanged in position. There is a trace left pleural effusion. Mild left basilar subsegmental atelectasis. No acute bone abnormality. The cardiac silhouette is unchanged. A partially vis ualized stent overlies the upper abdomen. There is minimal lucency over the right upper lateral abdomen which is indeterminate but unchanged the prior examination. If the patient is having abdominal pain, consider a KUB . Signed: Rai Pereira MD Report Verified Date/Time: 12/14/2019 0 8:16:23 Reading Location: [facility] C013Y CT Body R eading Room Performing Organization Address City/[facility] Centercode Phone Number [facility] Blood gas, arterial (12/14/2019 5:07 AM BULB FILLER)Only the most recent of6 results within the time period is included. Pathologist Sig nature pH, Arterial 7.39 7.35 - 7.45 [facility] pCO2, Arterial 36 35 - 45 mm Hg [facility] pO2, Arterial 112 (H) 80 - 90 mm Hg [facility] O2 Sat, Arterial 97.8 (H) 96.0 - 97.0 % [facility] HCO3, Arterial 21 21 - 29 mmol/L [facility] Base Excess, Arterial -3.4 (L) -2.0 - 3.0 [facility] mmol/L [facility] Patient Temperature 38.4 [facility] FIO2 60.0 [facility] Specimen Blood, Arterial Performing Organization Address [facility] CenterCapi[place] Phone Number [facility] [address] [place] [address] CENTER Calcium, Ionized (12/13/2019 11:12 PM BULB FILLER)Only the most recent of5 resultswithin the time period is included. Pathologist Sig nature Calcium, Ion 1.20 1.12 - 1.27 mmol/L [facility] pH, Blood 7.31 [facility] Specimen Blood Performing Organization Address City/[facility]/[email or web address] Phone Number [facility] [address] CENTER Prothrombin time/INR (12/13/2019 11:10 PM BULB FILLER)Only the most recent of4 results within the time period is included. Pathologist Sig nature Protime 17.6 (H) 11.9 - 14.2 seconds [facility] INR 1.49 <=5.90 [facility] Specimen Blood Narrative Performed At Effective 07/04/2018: PT Reference Range [facility] Change New: 11.9-14.2 Previous: 11.7-14.7 RECOMMENDED COUMADIN/WARFARIN INR THERAPY RANGES STANDARD DOSE: 2.0-3.0 Includes: PROPHYLAXIS for venous thrombosis, systemic embolization; TREATMENT for venous thrombosis and/or pulmonary embolus. HIGH RISK: Target INR is 2.5-3.5 for patients wiht mechanical heart valves. Performing Organization Address City/[facility] Centercoma Phone Number [address] [address] [place] Potassium-Stat Lab (12/13/2019 8:48 PM BULB FILLER)Only the most recent of4 results within the time period is included. Pathologist Sig [facility] Potassium 4.0 3.6 - 5.5 meq/L [facility] Specimen Blood, Arterial Performing Organization Address City/[facility] Center[facility] Phone Number [address] [address] CENTER Sodium Na-Stat Lab (12/13/2019 8:48 PM BULB FILLER)Only the most recent of4 results within the time period is included. Pathologist Sig nature Sodium 138 136 - 145 meq/L [facility] Specimen Blood, Arterial Performing Organization Address City/[facility] Centercode Phone Number [address] [address] CENTER Glucose-Stat Lab (12/13/2019 8:48 PM BULB FILLER)Only the most recent of4 resultswithin the time period is included. Pathologist Sig nature Glucose 138 (H) 70 - 110 mg/dL [facility] Specimen Blood, Arterial Performing Organization Address City/[facility]/Zipcode Phone Number [address] [address] CENTER HGB/HCT (H&H)-Stat Lab (12/13/2019 8:48 PM BULB FILLER)Only the most recent of4 resultswithin the time period is included. Pathologist Sig nature Hemoglobin 10.1 (L) 13.0 - 16.8 GM/DL [facility] Hematocrit 30.0 (L) 40.0 - 50.0 % [facility] Specimen Blood, Arterial Performing Organization Address [facility] Center[facility] Phone Number [address] [address] CENTER Transfuse Leuko-Red RBC (12/13/2019 7:48 PM BULB FILLER)Only the most recent of2 resultswithin the time period is included.Lactic Acid, Arterial (12/13/2019 6:18 PM BULB FILLER) Pathologist Sig [facility] Lactate, Art 0.7 0.5 - 2.2 mmol/L [facility] Specimen Blood, Arterial Narrative Performed At Software Sales Executive ID - BS [facility] Performing Organization Address [facility] Center[facility] Phone Number [address] [address] CENTER RAFIQ's Only(Ankle/Brachial Index) (12/13/2019 12:51 PM BULB FILLER) Pathologist Sig nature Ejection Fraction [facility] Specimen Impressions Performed At Right Impression [facility] 1. The posterior tibial and dorsalis pedis arteries are patent with triphasic and biphasic Doppler waveforms . 2. The PT pressure is 140 mmHg with an RAFIQ of 0.93 and the DP pressure is 140 mmHg with an RAFIQ of 0.93, within nor mal range. 3. The great toe pressure is 62 mmHg with an abnormal TBI of 0.41. 4. The digits have decreased flow by PPG waveforms. Left Impression 1. The posterior tibial and dorsalis pedis arteries have no audible Doppler signals. 2. The digits have no flow by PPG wavefo joanne. Conclusions Summary Arterial pressures and Doppler waveforms were performed bilaterally. Adequate Doppler waveforms were obtained. Doppler waveforms on the right were triphasic and biphasic. Doppler waveforms on the left were absent. The right RAFIQ's were within normal range. The left RAFIQ's were not obtained due to absent Doppler signals. The right TBI was abnormal. The right digits had decreased flow by PPG waveforms. The left digits had no flow by PPG waveforms. Signature Velocities are measured in cm/s ; Diameters are measured in cm Narrative Performed At LAB - Lower Extremity Arterial Proced [facility] ECHO HEARTLAB [facility] Demographics Patient Name IDANIA TERRY Date of Study 12/13/2019 DEBORAH III Age 74 Visit Number [id number] Gender Male Accession Number [id number] Date of 1945 Referring delano payne Room Number 2C20 Physician Typewriter Aligner Cm Anderson RVS Interpreting Cyndi Pastor RVT Physician Procedure Type of Study: Extremities Arteries: Lower Extremity Arterial Procedure, ARTERIAL (RAFIQ'S W/DOPPLER) ONLY. Indications for Study:Absent pulses. Patient Status:Routine. Study Location:Portable. Technical Quality:Technically Difficult. Risk Factors History of Disease + + + + !Diagnosis !Date !Comments ! + + + + !Other ! !Pre-OP ! + + + + Procedure Note Interface, External Ris In - 12/14/2019 9:47 AM BULB FILLER [facility] LAB - Lower Extremity Arterial Procedure Demographics Patient Name IDANIA TERRY ate of Study 12/13/2019 DEBORAH III A [place] 74 Visit Number [id number] G willard Male Accession Number [id number] D ate of 1945 Referring delano juarez Number [id number] Physician Typewriter Aligner Cm Anderson RVS I nterpreting Cyndi Pastor RVT Norman story MD Procedure Type of Study: Extremities Arteries: Lower Extremity A rterial Procedure, ARTERIAL (RAFIQ'S W/DOPPLER) ONLY. Indications for Study:Absent pulses. Patient Status:Routine. Study Location:Portable. Technical Quality:Technically Difficult. Risk Factors History of Disease + + ---------+ + !Diagnosis !Date !Comments ! + + ---------+ + !Other ! !Pre-OP ! + + ---------+ + Impressions Right Impression 1. The posterior tibial and dorsalis ped is arteries are patent with triphasic and biphasic Doppler waveforms . 2. The PT pressure is 140 mmHg with an A BI of 0.93 and the DP pressure is 140 mmHg with an RAFIQ of 0.93, within nor mal range. 3. The great toe pressure is 62 mmHg wit h an abnormal TBI of 0.41. 4. The digits have decreased flow by PPG waveforms. Left Impression 1. The posterior tibial and dorsalis ped is arteries have no audible Doppler signals. 2. The digits have no flow by PPG wavefo joanne. Conclusions Summary Arterial pressures and Doppler waveform s were performed bilaterally. Adequate Doppler waveforms were obtaine d. Doppler waveforms on the right were triphasic and biphasic. Doppler wa veforms on the left were absent. The right RAFIQ's were within normal rang e. The left RAFIQ's were not obtained due to absent Doppler signals. The righ t TBI was abnormal. The right digits had decreased flow by PPG wavefo joanne. The left digits had no flow by PPG waveforms. Signature Velocities are measured in cm/s ; Diamet ers are measured in cm Performing Organization Address City/State/Zipcode Phone Number [facility] HEARTLAB [facility] Arterial doppler legs bilateral (12/13/2019 12:51 PM BULB FILLER) Pathologist Sig nature Ejection Fraction [facility] ECHO [facility]LAB [facility] Specimen Impressions Performed At Right Impression [facility] 1. The common femoral, profunda femoral and popliteal arteries are calcified with diffuse plaque and triphasic Doppler waveforms. 2. There is >50% stenosis in the distal superficial femoral artery with a velocity of 193 cm/sec. 3. There is >50% stenosis at the proximal posterior tibial artery with a velocity of 143 cm/sec. 4. The distal posterior tibial artery is occluded. 5. The peroneal artery is patent through out. 6. There is >50% stenosis in the proximal and mid anterior tibial artery with velocities of 139 cm/sec and 239 cm /sec. Left Impression 1.The common femoral, profunda femoral and superficial femoral arteries are calcified with triphasic/biphasic Doppler waveforms throughout. 2. There is >50% stenosis of the distal popliteal artery with a velocity of 218 cm/sec. 3. The posterior tibial, peroneal and anterior tibial arteries are occluded. Conclusions Summary Arterial duplex was performed on the bilateral lower extremities. There was calcification and diffuse plaque throughout bilaterally. The right common femoral, profunda femoral and popliteal arteries were patent. There was >50% stenosis in the right distal superficial femoral artery. There was >50% stenosis in the right proximal posterior tibial artery. The right distal posterior tibial artery was occluded. There was >50% stenosis in the right proximal and mid anterior tibial artery. The left common femoral, profunda femoral and superficial femoral arteries were patent throughout. There was >50% stenosis of the left distal popliteal artery. The left posterior tibial, peroneal and anterior tibial arteries were occluded. Signature Velocities are measured in cm/s ; Diameters are measured in cm LE Duplex Measurements Right Left + + + + + + + + + + !Location ! !PSV !EDV !Waveform ! !PSV !EDV !Waveform ! + + + + + + + + + + !Mid Common Femoral ! !70.8 ! ! ! !87.5 ! ! ! + + + + + + + + + + !Prox PFA ! !60.3 ! ! ! !79.1 ! ! ! + + + + + + + + + + !Prox SFA ! !70.2 ! ! ! !38.9 ! ! ! + + + + + + + + + + !Mid SFA ! !67.7 ! ! ! !46.2 ! ! ! + + + + + + + + + + !Dist SFA ! !193 ! ! ! !37.5 ! ! ! + + + + + + + + + + !Prox Popliteal ! !47.7 ! ! ! !17.4 ! ! ! + + + + + + + + + + !Dist Popliteal ! !47.9 ! ! ! !218 ! ! ! + + + + + + + + + + !Prox CVOR NURSE ! !143 ! ! ! !0 ! ! ! + + + + + + + + + + !Mid CVOR NURSE ! !23.6 ! ! ! !0 ! ! ! + + + + + + + + + + !Dist CVOR NURSE ! !0 ! ! ! !0 ! ! ! + + + + + + + + + + !Prox JAEL ! !139 ! ! ! !0 ! ! ! + + + + + + + + + + !Mid JAEL ! !239 ! ! ! !0 ! ! ! + + + + + + + + + + !Dist JAEL ! !35.4 ! ! ! !0 ! ! ! + + + + + + + + + + !Prox Peroneal ! !62.1 ! ! ! !0 ! ! ! + + + + + + + + + + !Mid Peroneal ! !46.6 ! ! ! !0 ! ! ! + + + + + + + + + + !Dist Peroneal ! !73.3 ! ! ! !0 ! ! ! + + + + + + + + + + Narrative Performed At LAB - Lower Extremity Arterial Duplex [facility] Demographics Patient Name IDANIA TERRY Date of Study 12/13/2019 DEBORAH III Age 74 Visit Number [id number] Gender Male Accession Number [id number] Date of 1945 Referring Oneil Wick Room Number [id number] Physician Typewriter Aligner Cm Anderson RVS Interpreting Cyndi Pastor RVT Physician Procedure Type of Study: Extremities Arteries: Lower Extremities Arterial Duplex, ARTERIAL DOPPLER LEGS, BILATERAL. Indications for Study:Absent pulses. Patient Status:STAT. Study Location:Portable. Technical Quality:Adequate visualization . - Results were reported to:Dr. Castillo and Dr. Mills @ 1300. Risk Factors History of Disease + + + + !Diagnosis !Date !Comments ! + + + + !Other ! !Pre-OP ! + + + + Procedure Note Interface, External Ris In - 12/14/2019 9:47 AM BULB FILLER PV LAB - Lower Extremity Arterial Duplex Demographics Patient Name IDANIA TERRY ate of Study 12/13/2019 DEBORAH III A ge 74 Visit Number [id number] G willard Male Accession Number [id number] D ate of 1945 Referring Oneil juarez Number [id number] Physician Typewriter Aligner Cm Anderson RVS I nterpreting Cyndi Pastor RVT Norman story MD Procedure Type of Study: Extremities Arteries: Lower Extremities Arterial Duplex, ARTERIAL DOPPLER LEGS, BILATERAL. Indications for Study:Absent pulses. Patient Status:STAT. Study Location:Portable. Technical Quality:Adequate visualization . - Results were reported to:Dr. Jonathan Mills @ 0219. Risk Factors History of Disease + + ---------+ + !Diagnosis !Date !Comments ! + + ---------+ + !Other ! !Pre-OP ! + + ---------+ + Impressions Right Impression 1. The common femoral, profunda femoral and popliteal arteries are calcified with diffuse plaque and triphasic Dopple r waveforms. 2. There is >50% stenosis in the distal superficial femoral artery with a velocity of 193 cm/sec. 3. There is >50% stenosis at the proxima l posterior tibial artery with a velocity of 143 cm/sec. 4. The distal posterior tibial artery is occluded. 5. The peroneal artery is patent through out. 6. There is >50% stenosis in the proxima l and mid anterior tibial artery with velocities of 139 cm/sec and 239 cm /sec. Left Impression 1.The common femoral, profunda femoral a nd superficial femoral arteries are calcified with triphasic/biphasic Dopple r waveforms throughout. 2. There is >50% stenosis of the distal popliteal artery with a velocity of 218 cm/sec. 3. The posterior tibial, peroneal and an terior tibial arteries are occluded. Conclusions Summary Arterial duplex was performed on the bi lateral lower extremities. There was calcification and diffuse plaque th roughout bilaterally. The right common femoral, profunda femoral and po pliteal arteries were patent. There was >50% stenosis in the right distal s uperficial femoral artery. There was >50% stenosis in the right proximal posterior tibial artery. The right distal posterior tibial artery was occl uded. There was >50% stenosis in the right proximal and mid anterior tib ial artery. The left common femoral, profunda femoral and superfici al femoral arteries were patent throughout. There was >50% stenosis of the left distal popliteal artery. The left posterior tibial, peroneal and anterior tibial arteries were occluded. Signature Velocities are measured in cm/s ; Diamet ers are measured in cm LE Duplex Measurements Right Left + + + + + + + + + + !Location ! !PSV !EDV !Waveform ! !PSV !EDV !Waveform ! + + + + + + + + + + !Mid Common Femoral ! !70.8 ! ! ! !87.5 ! ! ! + + + + + + + + + + !Prox PFA ! !60.3 ! ! ! !79.1 ! ! ! + + + + + + + + + + !Prox SFA ! !70.2 ! ! ! !38.9 ! ! ! + + + + + + + + + + !Mid SFA ! !67.7 ! ! ! !46.2 ! ! ! + + + + + + + + + + !Dist SFA ! !193 ! ! ! !37.5 ! ! ! + + + + + + + + + + !Prox Popliteal ! !47.7 ! ! ! !17.4 ! ! ! + + + + + + + + + + !Dist Popliteal ! !47.9 ! ! ! !218 ! ! ! + + + + + + + + + + !Prox CVOR NURSE ! !143 ! ! ! !0 ! ! ! + + + + + + + + + + !Mid CVOR NURSE ! !23.6 ! ! ! !0 ! ! ! + + + + + + + + + + !Dist CVOR NURSE ! !0 ! ! ! !0 ! ! ! + + + + + + + + + + !Prox JAEL ! !139 ! ! ! !0 ! ! ! + + + + + + + + + + !Mid JAEL ! !239 ! ! ! !0 ! ! ! + + + + + + + + + + !Dist JAEL ! !35.4 ! ! ! !0 ! ! ! + + + + + + + + + + !Prox Peroneal ! !62.1 ! ! ! !0 ! ! ! + + + + + + + + + + !Mid Peroneal ! !46.6 ! ! ! !0 ! ! ! + + + + + + + + + + !Dist Peroneal ! !73.3 ! ! ! !0 ! ! ! + + + + + + + + + + Performing Organization Address City/State/Zipcode Phone Number [facility] ECHO HEARTLAB [facility] Urinalysis w/Microscopic + Reflex to Culture (12/13/2019 11:33 AM BULB FILLER) Color, UA Light Yellow [facility] Clarity, UA Cloudy [facility] Specific [place], 1.036 (H) 1.001 - 1.035 [facility] pH, UA 6.0 5.0 - 8.0 [facility] Protein, UA 30 mg/dL (A) Negative [facility] Glucose, UA Negative Negative [facility] Ketones, UA Negative Negative [facility] Bilirubin, UA Negative Negative [facility] Blood, UA Small (A) Negative [facility] Nitrite, UA Negative Negative [facility] Leukocytes, UA Large (A) Negative [facility] Urobilinogen, UA 0.2 0.2 - 1.0 mg/dL [facility] RBC, UA 18 /HPF [facility] WBC, UA 769 /HPF [facility] Bacteria, UA Rare [facility] Specimen Source [facility] Specimen Urine - Urinary catheter, device (physic al object) Narrative Performed At Software Sales Executive ID - [auto] [facility] Software Sales Executive ID - tech Performing Organization Address City/[facility] Phone Number [address] [address] CENTER Urine culture (12/13/2019 11:33 AM BULB FILLER) Pathologist Sig nature Result No growth [facility] [place] Specimen Urine - Urinary catheter, device (physic al object) Performing Organization Address [facility] Cent[facility] Phone Number [address] [address] [place] CBC with platelet count + automated diff (12/13/2019 11:31 AM BULB FILLER)Only the most recent of2 resultswithin the time period is included. Pathologist Sig nature WBC 67.7 (HH) 3.5 - 10.5 K/L [facility] RBC 2.72 (L) 4.63 - 6.08 M/L [facility] Hemoglobin 8.6 (L) 13.7 - 17.5 GM/DL [facility] Hematocrit 26.8 (L) 40.1 - 51.0 % [facility] MCV 98.5 (H) 79.0 - 92.2 fL [facility] MCH 31.6 25.7 - 32.2 pg [facility] MCHC 32.1 (L) 32.3 - 36.5 GM/DL [facility] RDW 17.5 (H) 11.6 - 14.4 % [facility] Platelets 155 150 - 450 K/CU MM [facility] MPV 10.4 9.4 - 12.4 fL [facility] nRBC 0 0 - 0 /100 WBC [facility] Specimen Blood Performing Organization Address City/State/Zipcode Phone Number [facility] [address] [place] [address] CENTER CBC with platelet count + manual diff (12/13/2019 4:22 AM BULB FILLER) Pathologist Sig nature WBC 64.8 (HH) 3.5 - 10.5 K/L [facility] RBC 2.93 (L) 4.63 - 6.08 M/L [facility] Hemoglobin 9.1 (L) 13.7 - 17.5 GM/DL [facility] Hematocrit 28.7 (L) 40.1 - 51.0 % [facility] MCV 98.0 (H) 79.0 - 92.2 fL [facility] MCH 31.1 25.7 - 32.2 pg [facility] MCHC 31.7 (L) 32.3 - 36.5 GM/DL [facility] RDW 17.4 (H) 11.6 - 14.4 % [facility] Platelets 172 150 - 450 K/CU MM [facility] MPV 10.1 9.4 - 12.4 fL [facility] nRBC 0 0 - 0 /100 WBC [facility] Specimen Blood Performing Organization Address City/State/Zipcode Phone Number [facility] [address] [place] [address] CENTER Manual Differential (12/13/2019 4:22 AM BULB FILLER)Only the most recent of2 results within the time period is included. Pathologist Sig nature % Neutros 4 % [facility] % Lymphs 92 % [facility] % Eos 2 % [facility] % Metamyelo 1 (H) 0 - 0 % [facility] % Atypical Lymphs 1 (H) 0 - 0 % [facility] # Neutros 2.59 1.78 - 5.38 [facility] # Lymphs 59.62 (H) 1.32 - 3.57 [facility] # Eos 1.30 (H) 0.04 - 0.54 [facility] # Metamyelo 0.65 (H) 0.00 - 0.00 [facility] # Atypical Lymphs 0.65 (H) 0.00 - 0.00 [facility] Total Counted 100 [facility] RBC Morphology Normal [facility] WBC Morphology Normal [facility] Platelet Morphology Normal [facility] Specimen Blood Narrative Performed At Software Sales Executive ID - [id number] [facility] Performing Organization Address City/State/Zipcode Phone Number [facility] [address] [place] [address] CENTER Hemoglobin A1c (12/13/2019 4:22 AM BULB FILLER)Only the most recent of2 resultswithin the time period is included. Pathologist Sig nature Hemoglobin A1C 5.2 4.3 - 6.1 % [facility] Specimen Blood Narrative Performed At Please recheck [facility] Please recheck Performing Organization Address City/State/Zipcode Phone Number [facility] [address], [place] [phone] CENTER VASCULAR DIAGRAM -SCAN (12/12/2019) Narrative Performed At This result has an attachment that is no t available. Ordered by an unspecified provider. Antibody identification (12/11/2019 4:23 PM BULB FILLER) ANTIBODY ID UNID IgG [place] (BEAKER) WARM AUTO AB Antibody Consult SIGNED OUTComment: Warm [place] panagglutinin detected, ok to transfuse incompatible bloodElectronic Signature: Shmuel Woo M.D. Specimen Performing Organization Address City/[facility] Cent[facility]ode Phone Number [place] Carotid doppler bilateral (12/11/2019 1:52 PM BULB FILLER) Pathologist Sig nature Ejection Fraction [facility] ECHO HEARTLAB [facility] Specimen Impressions Performed At Right Impression [facility] 1. There is <50% diameter reduction (approximately 41% by 2-D measurement) in the internal carotid artery with a peak velocity of 53/14 cm/sec and heterogeneous plaque. 2. There is non-occluding plaque in the external carotid artery. 3. There is non-occluding plaque in the common carotid artery. 4. The vertebral artery flow is antegrade and normal. 5. The subclavian artery is within normal limits where visualized. Left Impression 1. There is <50% diameter reduction (approximately 41% by 2-D measurement) in the internal carotid artery with a peak velocity of 59/15 cm/sec and heterogeneous plaque. 2. There is non-occluding plaque in the external carotid artery. 3. There is non-occluding plaque in the common carotid artery. 4. The vertebral artery flow is antegrade and normal. 5. The subclavian artery is within normal limits where visualized. Conclusions Summary Carotid duplex scanning and color flow imaging were performed bilaterally. The arteries were adequately visualized. The bilateral internal carotid arteries had <50% hemodynamically insignificant stenosis (approximately 41% by 2-D measurement on the right, approximately 41% by 2-D measurement on the left) with heterogeneous plaque. The vertebral artery flow was antegrade and normal bilaterally. Signature Velocities are measured in cm/s ; Diameters are measured in cm Carotid Right Measurements + +----+----+-----+ +---- + + !Location !PSV !EDV !Angle!%Stenosis 2D!%Stenosis Doppler!Tortuosity ! + +----+----+-----+ +---- + + !Prox CCA !76.2!15.8!60 ! ! ! ! + +----+----+-----+ +---- + + !Dist CCA !66.3!16.4!60 ! ! ! ! + +----+----+-----+ +---- + + !Prox ICA !53.4!14.1!60 !41% !<50% ! ! + +----+----+-----+ +---- + + !Dist ICA !69.2!23.5!60 ! ! ! ! + +----+----+-----+ +---- + + !Prox ECA !75.6!15.2!60 ! ! ! ! + +----+----+-----+ +---- + + !Vertebral !30.3!10 !60 ! ! ! ! + +----+----+-----+ +---- + + !Prox Subclavian!79.2! !60 ! ! ! ! + +----+----+-----+ +---- + + - Additional Measurements:ICAPSV/CCAPSV 1.04.ICAEDV/CCAEDV 1.49. Carotid Left Measurements + +----+----+-----+ +---- + + !Location !PSV !EDV !Angle!%Stenosis 2D!%Stenosis Doppler!Tortuosity ! + +----+----+-----+ +---- + + !Prox CCA !101 !23.6!60 ! ! ! ! + +----+----+-----+ +---- + + !Dist CCA !80.1!19.6!60 ! ! ! ! + +----+----+-----+ +---- + + !Prox ICA !59.8!15.2!60 !41% !<50% ! ! + +----+----+-----+ +---- + + !Dist ICA !68 !22.3!60 ! ! ! ! + +----+----+-----+ +---- + + !Prox ECA !173 !23.6!60 ! ! ! ! + +----+----+-----+ +---- + + !Vertebral !44 !17 !60 ! ! ! ! + +----+----+-----+ +---- + + !Prox Subclavian!86.4! !60 ! ! ! ! + +----+----+-----+ +---- + + - Additional Measurements:ICAPSV/CCAPSV 0.85.ICAEDV/CCAEDV 0.94. Narrative Performed At PV LAB - Carotid Duplex Study [facility]CHO HEART[facility] Demographics Patient Name IDANIA TERRY Date of Study 12/11/2019 DEBORAH III Age 74 Visit Number [id number] Gender Male Accession Number [id number] Date of 1945 Referring Casey Payne NP Room Number Physician Typewriter Aligner Peter Forbes T Interpreting Caryl Gao, Physician Procedure Type of Study: Cerebral: Carotid, CAROTID DOPPLER, WINTER ATERAL. Indications for Study:Pre-venous access. Patient Status:Routine. Study Location:Vascular Lab. Technical Quality:Adequate visualization . Risk Factors History of Disease + + + + !Diagnosis !Date !Comments ! + + + + !Other ! !Pre-OP ! + + + + Procedure Note Interface, External Ris In - 12/12/2019 7:51 AM BULB FILLER [facility] - Carotid Duplex Study Demographics Patient Name IDANIA TERRY D ate of Study 12/11/2019 DEBORAH III A ge 74 Visit Number [id number] G willard Male Accession Number [id number] D ate of 1945 Referring MUNA Ziegler Number Physician Typewriter Aligner Peter Forbes T I nterpreting Norman Pastor MD Procedure Type of Study: Cerebral: Carotid, CAROTID DOPPLER, WINTER ATERAL. Indications for Study:Pre-venous access. Patient Status:Routine. Study Location:Vascular Lab. Technical Quality:Adequate visualization . Risk Factors History of Disease + + ---------+ + !Diagnosis !Date !Comments ! + + ---------+ + !Other ! !Pre-OP ! + + ---------+ + Impressions Right Impression 1. There is <50% diameter reduction (julien roximately 41% by 2-D measurement) in the internal carotid artery with a pe ak velocity of 53/14 cm/sec and heterogeneous plaque. 2. There is non-occluding plaque in the external carotid artery. 3. There is non-occluding plaque in the common carotid artery. 4. The vertebral artery flow is antegrad e and normal. 5. The subclavian artery is within alma l limits where visualized. Left Impression 1. There is <50% diameter reduction (julien roximately 41% by 2-D measurement) in the internal carotid artery with a pe ak velocity of 59/15 cm/sec and heterogeneous plaque. 2. There is non-occluding plaque in the external carotid artery. 3. There is non-occluding plaque in the common carotid artery. 4. The vertebral artery flow is antegrad e and normal. 5. The subclavian artery is within alma l limits where visualized. Conclusions Summary Carotid duplex scanning and color flow imaging were performed bilaterally. The arteries were adequately visualized . The bilateral internal carotid arteries had <50% hemodynamically insig nificant stenosis (approximately 41% by 2-D measurement on the right, ap proximately 41% by 2-D measurement on the left) with heterogeneous plaque. The vertebral artery flow was antegrade and normal bilaterally. Signature Velocities are measured in cm/s ; Diamet ers are measured in cm Carotid Right Measurements + +----+----+-----+------- -----+ + + !Location !PSV !EDV !Angle!%Stenos is 2D!%Stenosis Doppler!Tortuosity ! + +----+----+-----+------- -----+ + + !Prox CCA !76.2!15.8!60 ! ! ! ! + +----+----+-----+------- -----+ + + !Dist CCA !66.3!16.4!60 ! ! ! ! + +----+----+-----+------- -----+ + + !Prox ICA !53.4!14.1!60 !41% !<50% ! ! + +----+----+-----+------- -----+ + + !Dist ICA !69.2!23.5!60 ! ! ! ! + +----+----+-----+------- -----+ + + !Prox ECA !75.6!15.2!60 ! ! ! ! + +----+----+-----+------- -----+ + + !Vertebral !30.3!10 !60 ! ! ! ! + +----+----+-----+------- -----+ + + !Prox Subclavian!79.2! !60 ! ! ! ! + +----+----+-----+------- -----+ + + - Additional Measurements:ICAPSV/CCAPS V 1.04.ICAEDV/CCAEDV 1.49. Carotid Left Measurements + +----+----+-----+------- -----+ + + !Location !PSV !EDV !Angle!%Stenos is 2D!%Stenosis Doppler!Tortuosity ! + +----+----+-----+------- -----+ + + !Prox CCA !101 !23.6!60 ! ! ! ! + +----+----+-----+------- -----+ + + !Dist CCA !80.1!19.6!60 ! ! ! ! + +----+----+-----+------- -----+ + + !Prox ICA !59.8!15.2!60 !41% !<50% ! ! + +----+----+-----+------- -----+ + + !Dist ICA !68 !22.3!60 ! ! ! ! + +----+----+-----+------- -----+ + + !Prox ECA !173 !23.6!60 ! ! ! ! + +----+----+-----+------- -----+ + + !Vertebral !44 !17 !60 ! ! ! ! + +----+----+-----+------- -----+ + + !Prox Subclavian!86.4! !60 ! ! ! ! + +----+----+-----+------- -----+ + + - Additional Measurements:ICAPSV/CCAPS V 0.85.ICAEDV/CCAEDV 0.94. Performing Organization Address City/[facility]/Zipcode Phone Number [facility] MKCKESSON CPACS XR chest 2 views (12/11/2019 12:33 PM BULB FILLER) Specimen Narrative Performed At FINAL REPORT [facility] and Lateral views of the chest dated 12/11/2019 Clinical information: pre-op Comment: Heart is normal in size. Thor acic aorta is ectatic. Pulmonary vasculature is unremarkable. L ungs are clear. No pulmonary infiltrate or pleural effusion is presen t. Impression: No active cardiopulmonary disease. Signed: Vamsi Johns MD Report Verified Date/Time: 12/11/2019 13:32:39 Reading Location: [employer] Reading Room Procedure Note Interface, External Ris In - 12/11/2019 1:34 PM BULB FILLER FINAL REPORT PA and Lateral views of the chest dated 12/11/2019 Clinical information: pre-op Comment: Heart is normal in size. Thora cic aorta is ectatic. Pulmonary vasculature is unremarkable. L ungs are clear. No pulmonary infiltrate or pleural effusion is presen t. Impression: No active cardiopulmonary d isease. Signed: Vamsi Johns MD Report Verified Date/Time: 12/11/2019 1 3:32:39 Reading Location: [employer] Reading Room Performing Organization Address City/[facility]/Zipcode Phone Number RIS Type and screen, automated (12/11/2019 10:38 AM BULB FILLER) ABO/RH AUTOMATED A POSITIVE [facility] Ab Scrn POSITIVEComment: [address] Specimen Blood Performing Organization Address [facility]/Zipcode Phone Number [facility] [address] [place] [address] HIV-1 Antigen with HIV-1/2 Antibody (12/11/2019 10:38 AM BULB FILLER) Pathologist Sig nature HIV-1 Antigen with Nonreactive Nonreactive [facility] HIV 1&2 Antibody [facility] Specimen Blood Narrative Performed At Software Sales Executive ID - ADMIN [facility] Performing Organization Address [facility] Cent[facility]ode Phone Number [address] [address] [place] Hepatitis B Panel (12/11/2019 10:38 AM BULB FILLER) Pathologist Sig nature Hep B Core Total Ab Nonreactive Nonreactive [facility] Hep B S Ab <8.0 <8.0 mIU/mL [facility] HBsAg Screen Nonreactive Nonreactive [facility] Specimen Blood Narrative Performed At Software Sales Executive ID - ADMIN [facility] Performing Organization Address [facility] [place] [address] CENTER Hepatitis C antibody (12/11/2019 10:38 AM BULB FILLER) Pathologist Sig nature Hepatitis C Ab Nonreactive Nonreactive [facility] Specimen Blood Narrative Performed At Software Sales Executive ID - ADMIN [facility] Performing Organization Address [facility] Phone Number [address] [address] CENTER Urinalysis w/Microscopic (12/11/2019 10:38 AM BULB FILLER) Color, UA Light Yellow [facility] Clarity, UA Hazy [facility] Specific [place], 1.011 1.001 - 1.035 [facility] pH, UA 6.5 5.0 - 8.0 [facility] Protein, UA 10 mg/dL (A) Negative [facility] Glucose, UA 1000 mg/dL (A) Negative [facility] Ketones, UA Negative Negative [facility] Bilirubin, UA Negative Negative [facility] Blood, UA Small (A) Negative [facility] Nitrite, UA Negative Negative [facility] Leukocytes, UA Large (A) Negative [facility] Urobilinogen, UA 0.2 0.2 - 1.0 mg/dL [facility] RBC, UA 4 /HPF [facility] WBC, UA 152 /HPF [facility] Mucus Rare [facility] Squam Epithel, UA <1 /HPF [facility] Specimen Source [facility] Specimen Urine Narrative Performed At Software Sales Executive ID - [auto] [facility] Software Sales Executive ID - tech Performing Organization Address [facility] Centercode Phone Number [address] [address] CENTER Reticulocyte count (12/11/2019 10:38 AM BULB FILLER) Pathologist Sig nature % Retic 3.3 (H) 0.5 - 1.8 % [facility] Specimen Blood Narrative Performed At Software Sales Executive ID - [id number] [facility] Performing Organization Address [facility] Center[facility] Phone Number [address] [address] CENTER Direct [facility] (GARTH)/Direct Kelvin (12/11/2019 10:38 AM BULB FILLER) Pathologist Sig nature Direct [facility]-IGG POSITIVEComment [facility] 4+ [facility] Direct [facility]-C3B, C3D POSITIVEComment [facility] Micro+ [facility] Specimen Blood Performing Organization Address [facility]/Zipcode Phone Number [address] [address] ALT (SGPT) (12/11/2019 10:38 AM BULB FILLER) Pathologist Sig nature ALT 12 6 - 55 U/L [facility] Specimen Blood Narrative Performed At Software Sales Executive ID - ADMIN [facility] Performing Organization Address City/[facility] Centercode Phone Number [address] [address] CENTER AST (SGOT) (12/11/2019 10:38 AM BULB FILLER) Pathologist Sig nature AST 12 5 - 34 U/L [facility] Specimen Blood Narrative Performed At Software Sales Executive ID - ADMIN [facility] Performing Organization Address City/[facility] Centercode Phone Number [address] [address] CENTER Protein, total (12/11/2019 10:38 AM BULB FILLER) Pathologist Sig [facility] Protein, Total 6.1 6.0 - 8.3 gm/dL [facility] Specimen Blood Narrative Performed At Software Sales Executive ID - ADMIN [facility] Performing Organization Address City/[facility] Centercode Phone Number [address] [address] CENTER Alkaline phosphatase (12/11/2019 10:38 AM BULB FILLER) Pathologist Sig nature Alkaline Phosphatase 93 40 - 150 U/L [facility] Specimen Blood Narrative Performed At Software Sales Executive ID - ADMIN [facility] Performing Organization Address City/[facility] Centercode Phone Number [address] [address] CENTER Lipase (12/11/2019 10:38 AM BULB FILLER) Pathologist Sig nature Lipase 22 8 - 78 U/L [facility] Specimen Blood Narrative Performed At Software Sales Executive ID - ADMIN [facility] Performing Organization Address City/[facility]/Zipcode Phone Number [address] [place] [address] CENTER Lactate dehydrogenase (LDH) (12/11/2019 10:38 AM BULB FILLER) Pathologist Sig nature LDH 177 125 - 220 U/L [facility] [place] Specimen Blood Narrative Performed At Software Sales Executive ID - ADMIN [facility] Performing Organization Address [facility] Centercode Phone Number [address] [address] CENTER Bilirubin, direct (12/11/2019 10:38 AM BULB FILLER) Pathologist Sig nature Bilirubin, Direct 0.4 0.1 - 0.5 mg/dL [facility] Specimen Blood Narrative Performed At Software Sales Executive ID - ADMIN [facility] Performing Organization Address [facility] Centercoma Phone Number [address] [address] CENTER Bilirubin, adult total (12/11/2019 10:38 AM BULB FILLER) Pathologist Sig nature Total Bilirubin 0.9 0.2 - 1.2 mg/dL [facility] Specimen Blood Narrative Performed At Software Sales Executive ID - ADMIN [facility] Performing Organization Address [facility] Phone Number [address] [address] CENTER Amylase (12/11/2019 10:38 AM BULB FILLER) Pathologist Sig nature Amylase 30 25 - 125 U/L [facility] Specimen Blood Narrative Performed At Software Sales Executive ID - ADMIN [facility] Performing Organization Address [facility] Centercode Phone Number [address] [address] CENTER Albumin (12/11/2019 10:38 AM BULB FILLER) Pathologist Sig nature Albumin 4.1 3.5 - 5.0 g/dL [facility] Specimen Blood Narrative Performed At Software Sales Executive ID - ADMIN [facility]ENTER Performing Organization Address City/State/Zipcode Phone Number [facility] [address] [place] [address] CENTER Pulmonary Funct Lab Spirometry (11/21/2019 10:30 AM CDT) Narrative Performed At Bianca Ly, MARIBEL, GENERAL CARGO CLERK 020 12:31 PM [facility] PFT CHARTING REPORT Infection Control/Hand Hygiene procedure s followed throughout the encounter with patient: Yes Patient Identification Method: Patient n bairon verified on armband, and Medical record on armband, Is the order complete?: Yes Account ID#: [id number] Patient Name: Idania Terry III Birthdate: 1945 Age: 74 y.o. Sex: male Admission Date: 11/21/2019 Patient Status: Outpatient Reasons/Symptom for having the Test?: weiss rgical clearance Type of study/treatment ordered by physi rigoberto: Spirometry with bronchodilators Lab Results Component Value Date HGB 12.4 (L) 02/12/2018 Ranges: Adult Male 13 - 16.8 g/dl Adult Female 12 - 15 g/dl 6 Minute Walk (read only) 02/16/201811/0411/21/2019 Pulse 57 58 - SpO2 95 98 99 Study Date: 11/21/19 [facility] Time: 1050 ASSESSMENT History & Physical Mode of Arrival: Wheelchair Pulse: 60 Resp: 20 SPO2: 99 % on RA Pain Assessment Pain:None TESTING/THERAPEUTICS Medications ordered or required for pro cedure: Albuterol, PT EDUCATION/INSTRUCTIONS Barriers to learning: No known barriers to learning. Learning need identified: Yes, Patient/ Family/Guradian was informed of the ordered study by the martha edmondson Barriers to performing study or treatme nt: Patient has no known disability to perform the study or treat ment. DISCHARGE The study was completed in accordance wi th the physician's order and patient released from the lab withou t adverse outcome. CTA chest (11/05/2019 8:01 AM CDT) Specimen Narrative Performed At FINAL REPORT GE RIS EXAM: CTA OF THE THORACOABDOMINAL AORTA AND PELVIC ARTERIES INDICATION: AAA, monitoring COMPARISON: CT abdomen pelvis 08/10/2010, CT urogram to 08/25/2013, echocardiogram report 11/05/2019 TECHNIQUE: Multi-detector CT technology was employed. CTA Gated axial imaging of the chest, abdomen, and pelvi s was performed after the administration of IV contrast. IV CONTRAST: 100 mL of Isovue-370 ORAL CONTRAST : None COMPLICATIONS: None RADIATION DOSE: Total DLP: 1200 mGy*cm Estimated effective dose: (DLP x 0.015 x size factor) mSv CTDIvol has been reviewed. It is below the limits set by the Radiation Protocol Committee (RPC). For optimization of anatomic evaluation, multiplanar reconstruction, maximum intensity projections, and Gamida Cellan Capevo 3-D off-line postprocessing were performed on a dedic ated stand-alone workstation under the direct supervision of the inte [place] physician. FINDINGS: Potential study limitations: None. LINES/ TUBES: None. VASCULAR WITH ADVANCED 3-D OFF-LINE POST PROCESSING: AORTIC VALVE: Aortic valve morphology is trileaflet an d contains moderate calcifications of the right coronary cus p. AORTA: The thoracic aorta is markedly tortuous. 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 The aortic arch is normal in size, measuring 2.9 cm in diameter. The proximal and mid ascending thoracic aort a are mildly dilated measuring up to 3.3 cm. The distal desce nding thoracic aorta is normal in size. There is no acute aortic pathology, such as dissection, intramural hematoma, or contained rupture. Aortic plaques: Scattered calcified and noncalcified atherosclerotic changes throughout the thoracic aorta, w orse in the descending thoracic segment. There is a 5 mm no unc omplicated penetrating ulcer within the anterior wall of the mid asce nding thoracic aorta on series 2, image 67. The arch vessel branching pattern is con ventional. All of the arch branch vessels appear widely patent in t heir proximal portions. The innominate artery is markedly tortuous a nd ectatic measuring up to 1.2 cm in diameter. Abdominal aortic aneurysm detail anatomy : Fusiform 5.8 x 5.5 cm aneurysm of the infrarenal abdominal aor ta, which begins 5.2 cm below the right renal artery and extends down to just above the bifurcation. The aneurysm is associated with moderate amount of intraluminal thrombus, which contains mi ld internal calcification, and resulting in 40% of intraluminal asa rowing with a minimal lumen of 3.6 cm. There is a 10 mm penetrating ulcer within the aneurysm, at the level of L5 vertebral body on series 3, image 169. The superior neck measures 2.6 cm and the inferior ne ck measures 3.2 cm. The length from the aortic bifurcation to th e origin of the external iliac arteries is 5 cm. There is moder ate angulation of the aneurysm. The remaining abdominal aorta is tortuou s but normal in caliber. There is no acute aortic pathology . Aortic plaques: Moderate nonobstructing atherosclerotic changes throughout the abdominal aorta. Nutrition Technician dimensions of the thoraci c aorta are as follows: 2.4 x 2.9 cm at the aortic annulus 4.2 x 3.9 cm at the sinuses of Valsalva (the sinotubular junction is preserved) 4.7 cm at the proximal and mid ascending aorta 3.9 cm at the distal ascending aorta 2.9 cm at the mid transverse arch 3.3 cm at the proximal and 3.4 cm at the distal descending thoracic aorta 3.0 cm at the diaphragmatic hiatus. The abdominal aorta measures: 2.9 cm at the supramesenteric segment 2.9 cm at the mesenteric segment 2.6 cm at the renal segment 5.8 x 5.5 cm at the mid infrarenal segme nt 3.2 cm at the aortic bifurcation. The celiac axis, SMA, and DAVONTE are patent . There are single renal arteries bilaterally, both of which appe ar patent. The pelvic arteries are diffusely dilate d, specifically with aneurysm of the right and left common iliac arter ies, measuring up to 2.6 cm and 1.7 cm, respectively. There are mi ld to moderate nonobstructing atherosclerotic changes of the pelvic ar teries. 2.6 cm at the right common iliac artery 0.9 cm at the right external iliac arter y 1.7 cm at the left common iliac artery 0.8 cm at the left external iliac artery NON VASCULAR FINDINGS: LUNGS AND AIRWAYS: Moderate bilateral centrilobular emphysema. No suspicious pulmonary nodules or masses. No consolidations. Airways are patent. PLEURA: The pleural spaces are clear.. HEART AND MEDIASTINUM: The thyroid gland is normal. Diffuse mediastinal and bilateral axillary lymph adenopathy. For example there is a 2 cm enlarged lymph node in the rig ht lower paratracheal region (4R), a 3.0 x 1.4 cm left lower paratrac heal enlarged lymph node (4L), and a 1.7 cm subcarinal lymph node (level seven). The largest axillary lymph node measuring 1.5 cm on the right and 1.5 cm on the left. The main pulmonary artery is borde rline in size measuring 3 cm in diameter. The cardiac chambers demonstrate normal atrioventricular and ventriculoarterial concordance, and syst emic and pulmonary venous return. The cardiac chambers are alma l in size. The coronary arteries have normal origins and cours es. There are diffuse coronary calcifications identified, thou gh this study was not optimized for coronary artery evaluation . There is no pericardial effusion. ABDOMEN: The liver, gallbladder, and pancreas julien ear normal. The spleen is mildly enlarged, measuring 17 cm in mark th in the craniocaudal dimension. The adrenal glands appear nor mal. Both kidneys are normal in size, shape, and density. Mu ltiple bilateral renal cysts have not significantly changed since 201 4. The largest measures 4.5 cm in the inferior left kidney. PELVIS: Right para-aortic, preaortic, and retrop eritoneal lymphadenopathy. For example, there is a 2.2 x 1 cm right para-aortic lymph node on series 3, image 142. No free fluid or free air within the abdomen or pelvis. Diffuse diverticulosis throughout the co fernandez without diverticulitis. The appendix is normal. Asymmetry wall thickening of the urinary bladder measuring up to 0.9 cm in thickn ess on the right on series 2, image 234 likely correlates with this pa tient bladder cancer. The prostate is mildly enlarged, measuring 3 .6 cm in AP diameter by 4.8 cm in transverse diameter. BONES: Mild multilevel degenerative changes of the thoracolumbar spine. IMPRESSION: 1. Ectasia of the aortic root at the s inus of Valsalva (4.2 x 3.9 cm) and borderline aneurysm of the ascen ding thoracic aorta (4.7 cm). No acute aortic pathology identified. 2. Fusiform 5.8 x 5.5 cm aneurysm of t he infrarenal abdominal aorta with associated moderate amount of intra luminal thrombus and small noncomplicated penetrating ulcer. It pre viously measured 3.[address] urogram from 2013. 3. 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 4. Nonvascular findings: - Mediastinal, bilateral hilar, and abdo jennifer lymphadenopathy highly concerning for metastasis. - Asymmetric right urinary bladder wall thickening may correlate with this patient bladder cancer. Signed: Kim Hamilton MD Report Verified Date/Time: 11/05/2019 14:08:15 Reading Location: [address] B01.625 Procedure Note Interface, External Ris In - 11/05/2019 2:10 PM CDT FINAL REPORT EXAM: CTA OF THE THORACOABDOMINAL AORTA AND PELVIC ARTERIES INDICATION: AAA, monitoring COMPARISON: CT abdomen pelvis 08/10/2010, CT urogram to 08/25/2013, echocardiogram report 11/05/2019 TECHNIQUE: Multi-detector CT technology was employed. CTA Gated axial imaging of the chest, abdomen, and pelvi s was performed after the administration of IV contrast. IV CONTRAST: 100 mL of Isovue-370 ORAL CONTRAST: None COMPLICATIONS: None RADIATION DOSE: Total DLP: 1200 mGy*cm Estimated effective dose: (DLP x 0. 015 x size factor) mSv CTDIvol has been reviewed. It is be low the limits set by the Radiation Protocol Committee (RPC). For optimization of anatomic evaluation, multiplanar reconstruction, maximum intensity projections, and Gamida Cellan Capevo 3-D off-line postprocessing were performed on a dedic ated stand-alone workstation under the direct supervision of the inte [place] physician. FINDINGS: Potential study limitations: None. LINES/ TUBES: None. VASCULAR WITH ADVANCED 3-D OFF-LINE POST PROCESSING: AORTIC VALVE: Aortic valve morphology is trileaflet an d contains moderate calcifications of the right coronary cus p. AORTA: The thoracic aorta is markedly tortuous. 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 The aortic arch is normal in size, measuring 2.9 cm in diameter. The proximal and mid ascending thoracic aort a are mildly dilated measuring up to 3.3 cm. The distal desce nding thoracic aorta is normal in size. There is no acute aortic pathology, such as dissection, intramural hematoma, or contained rupture. Aortic plaques: Scattered calcified and noncalcified atherosclerotic changes throughout the thoracic aorta, w orse in the descending thoracic segment. There is a 5 mm no unc omplicated penetrating ulcer within the anterior wall of the mid asce nding thoracic aorta on series 2, image 67. The arch vessel branching pattern is con ventional. All of the arch branch vessels appear widely patent in t heir proximal portions. The innominate artery is markedly tortuous a nd ectatic measuring up to 1.2 cm in diameter. Abdominal aortic aneurysm detail anatomy : Fusiform 5.8 x 5.5 cm aneurysm of the infrarenal abdominal aor ta, which begins 5.2 cm below the right renal artery and extends down to just above the bifurcation. The aneurysm is associated with moderate amount of intraluminal thrombus, which contains mi ld internal calcification, and resulting in 40% of intraluminal asa rowing with a minimal lumen of 3.6 cm. There is a 10 mm penetrating ulcer within the aneurysm, at the level of L5 vertebral body on series 3, image 169. The superior neck measures 2.6 cm and the inferior ne ck measures 3.2 cm. The length from the aortic bifurcation to th e origin of the external iliac arteries is 5 cm. There is modera te angulation of the aneurysm. The remaining abdominal aorta is tortuou s but normal in caliber. There is no acute aortic pathology . Aortic plaques: Moderate nonobstructing atherosclerotic changes throughout the abdominal aorta. Nutrition Technician dimensions of the thoraci c aorta are as follows: 2.4 x 2.9 cm at the aortic annulus 4.2 x 3.9 cm at the sinuses of Valsalva (the sinotubular junction is preserved) 4.7 cm at the proximal and mid ascending aorta 3.9 cm at the distal ascending aorta 2.9 cm at the mid transverse arch 3.3 cm at the proximal and 3.4 cm at the distal descending thoracic aorta 3.0 cm at the diaphragmatic hiatus. The abdominal aorta measures: 2.9 cm at the supramesenteric segment 2.9 cm at the mesenteric segment 2.6 cm at the renal segment 5.8 x 5.5 cm at the mid infrarenal segme nt 3.2 cm at the aortic bifurcation. The celiac axis, SMA, and DAVONTE are patent . There are single renal arteries bilaterally, both of which appe ar patent. The pelvic arteries are diffusely dilate d, specifically with aneurysm of the right and left common iliac arter ies, measuring up to 2.6 cm and 1.7 cm, respectively. There are mil d to moderate nonobstructing atherosclerotic changes of the pelvic ar teries. 2.6 cm at the right common iliac artery 0.9 cm at the right external iliac arter y 1.7 cm at the left common iliac artery 0.8 cm at the left external iliac artery NON VASCULAR FINDINGS: LUNGS AND AIRWAYS: Moderate bilateral c entrilobular emphysema. No suspicious pulmonary nodules or masses. No consolidations. Airways are patent. PLEURA: The pleural spaces are clear.. HEART AND MEDIASTINUM: The thyroid gland is normal. Diffuse mediastinal and bilateral axillary lymph adenopathy. For example there is a 2 cm enlarged lymph node in the rig ht lower paratracheal region (4R), a 3.0 x 1.4 cm left lower paratrac heal enlarged lymph node (4L), and a 1.7 cm subcarinal lymph node (level seven). The largest axillary lymph node measuring 1.5 cm on the right and 1.5 cm on the left. The main pulmonary artery is borde rline in size measuring 3 cm in diameter. The cardiac chambers demonstrate normal atrioventricular and ventriculoarterial concordance, and syst emic and pulmonary venous return. The cardiac chambers are normal in size. The coronary arteries have normal origins and course s. There are diffuse coronary calcifications identified, thou gh this study was not optimized for coronary artery evaluation . There is no pericardial effusion. ABDOMEN: The liver, gallbladder, and pancreas julien ear normal. The spleen is mildly enlarged, measuring 17 cm in mark th in the craniocaudal dimension. The adrenal glands appear nor mal. Both kidneys are normal in size, shape, and density. Mul tiple bilateral renal cysts have not significantly changed since 201 4. The largest measures 4.5 cm in the inferior left kidney. PELVIS: Right para-aortic, preaortic, and retrop eritoneal lymphadenopathy. For example, there is a 2.2 x 1 cm right para-aortic lymph node on series 3, image 142. No free fluid or f ree air within the abdomen or pelvis. Diffuse diverticulosis throughout the co fernandez without diverticulitis. The appendix is normal. Asymmetry wall thickening of the urinary bladder measuring up to 0.9 cm in thickn ess on the right on series 2, image 234 likely correlates with this pa tient bladder cancer. The prostate is mildly enlarged, measuring 3 .6 cm in AP diameter by 4.8 cm in transverse diameter. BONES: Mild multilevel degenerative changes of the thoracolumbar spine. IMPRESSION: 1. Ectasia of the aortic root at the si nus of Valsalva (4.2 x 3.9 cm) and borderline aneurysm of the ascen ding thoracic aorta (4.7 cm). No acute aortic pathology identified. 2. Fusiform 5.8 x 5.5 cm aneurysm of th e infrarenal abdominal aorta with associated moderate amount of intra luminal thrombus and small noncomplicated penetrating ulcer. It pre viously measured 3.[address] urogram from 2013. 3. 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 4. Nonvascular findings: - Mediastinal, bilateral hilar, and abdo jennifer lymphadenopathy highly concerning for metastasis. - Asymmetric right urinary bladder wall thickening may correlate with this patient bladder cancer. Signed: Kim Hamilton MD Report Verified Date/Time: 11/05/2019 1 4:08:15 Reading Location: [place] [id number] Performing Organization Address City/State/Zipcode Phone Number [email or web address] CT/CTA abdomen & pelvis - For AAA (11/05/2019 8:01 AM CDT) Specimen Narrative Performed At FINAL REPORT [email or web address] EXAM: CTA OF THE THORACOABDOMINAL AORTA AND PELVIC ARTERIES INDICATION: AAA, monitoring COMPARISON: CT abdomen pelvis 08/10/2010, CT urogram to 08/25/2013, echocardiogram report 11/05/2019 TECHNIQUE: Multi-detector CT technology was employed. CTA Gated axial imaging of the chest, abdomen, and pelvi s was performed after the administration of IV contrast. IV CONTRAST: 100 mL of Isovue-370 ORAL CONTRAST : None COMPLICATIONS: None RADIATION DOSE: Total DLP: 1200 mGy*cm Estimated effective dose: (DLP x 0.015 x size factor) mSv CTDIvol has been reviewed. It is below the limits set by the Radiation Protocol Committee (RPC). For optimization of anatomic evaluation, multiplanar reconstruction, maximum intensity projections, and Gamida Cellan Capevo 3-D off-line postprocessing were performed on a dedic ated stand-alone workstation under the direct supervision of the inte [place] physician. FINDINGS: Potential study limitations: None. LINES/ TUBES: None. VASCULAR WITH ADVANCED 3-D OFF-LINE POST PROCESSING: AORTIC VALVE: Aortic valve morphology is trileaflet an d contains moderate calcifications of the right coronary cus p. AORTA: The thoracic aorta is markedly tortuous. 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 The aortic arch is normal in size, measuring 2.9 cm in diameter. The proximal and mid ascending thoracic aort a are mildly dilated measuring up to 3.3 cm. The distal desce nding thoracic aorta is normal in size. There is no acute aortic pathology, such as dissection, intramural hematoma, or contained rupture. Aortic plaques: Scattered calcified and noncalcified atherosclerotic changes throughout the thoracic aorta, w orse in the descending thoracic segment. There is a 5 mm no unc omplicated penetrating ulcer within the anterior wall of the mid asce nding thoracic aorta on series 2, image 67. The arch vessel branching pattern is con ventional. All of the arch branch vessels appear widely patent in t heir proximal portions. The innominate artery is markedly tortuous a nd ectatic measuring up to 1.2 cm in diameter. Abdominal aortic aneurysm detail anatomy : Fusiform 5.8 x 5.5 cm aneurysm of the infrarenal abdominal aor ta, which begins 5.2 cm below the right renal artery and extends down to just above the bifurcation. The aneurysm is associated with moderate amount of intraluminal thrombus, which contains mi ld internal calcification, and resulting in 40% of intraluminal asa rowing with a minimal lumen of 3.6 cm. There is a 10 mm penetrating ulcer within the aneurysm, at the level of L5 vertebral body on series 3, image 169. The superior neck measures 2.6 cm and the inferior ne ck measures 3.2 cm. The length from the aortic bifurcation to th e origin of the external iliac arteries is 5 cm. There is moder ate angulation of the aneurysm. The remaining abdominal aorta is tortuou s but normal in caliber. There is no acute aortic pathology . Aortic plaques: Moderate nonobstructing atherosclerotic changes throughout the abdominal aorta. Nutrition Technician dimensions of the thoraci c aorta are as follows: 2.4 x 2.9 cm at the aortic annulus 4.2 x 3.9 cm at the sinuses of Valsalva (the sinotubular junction is preserved) 4.7 cm at the proximal and mid ascending aorta 3.9 cm at the distal ascending aorta 2.9 cm at the mid transverse arch 3.3 cm at the proximal and 3.4 cm at the distal descending thoracic aorta 3.0 cm at the diaphragmatic hiatus. The abdominal aorta measures: 2.9 cm at the supramesenteric segment 2.9 cm at the mesenteric segment 2.6 cm at the renal segment 5.8 x 5.5 cm at the mid infrarenal segme nt 3.2 cm at the aortic bifurcation. The celiac axis, SMA, and DAVONTE are patent . There are single renal arteries bilaterally, both of which appe ar patent. The pelvic arteries are diffusely dilate d, specifically with aneurysm of the right and left common iliac arter ies, measuring up to 2.6 cm and 1.7 cm, respectively. There are mi ld to moderate nonobstructing atherosclerotic changes of the pelvic ar teries. 2.6 cm at the right common iliac artery 0.9 cm at the right external iliac arter y 1.7 cm at the left common iliac artery 0.8 cm at the left external iliac artery NON VASCULAR FINDINGS: LUNGS AND AIRWAYS: Moderate bilateral centrilobular emphysema. No suspicious pulmonary nodules or masses. No consolidations. Airways are patent. PLEURA: The pleural spaces are clear.. HEART AND MEDIASTINUM: The thyroid gland is normal. Diffuse mediastinal and bilateral axillary lymph adenopathy. For example there is a 2 cm enlarged lymph node in the rig ht lower paratracheal region (4R), a 3.0 x 1.4 cm left lower paratrac heal enlarged lymph node (4L), and a 1.7 cm subcarinal lymph node (level seven). The largest axillary lymph node measuring 1.5 cm on the right and 1.5 cm on the left. The main pulmonary artery is borde rline in size measuring 3 cm in diameter. The cardiac chambers demonstrate normal atrioventricular and ventriculoarterial concordance, and syst emic and pulmonary venous return. The cardiac chambers are alma l in size. The coronary arteries have normal origins and cours es. There are diffuse coronary calcifications identified, thou gh this study was not optimized for coronary artery evaluation . There is no pericardial effusion. ABDOMEN: The liver, gallbladder, and pancreas julien ear normal. The spleen is mildly enlarged, measuring 17 cm in mark th in the craniocaudal dimension. The adrenal glands appear nor mal. Both kidneys are normal in size, shape, and density. Mu ltiple bilateral renal cysts have not significantly changed since 201 4. The largest measures 4.5 cm in the inferior left kidney. PELVIS: Right para-aortic, preaortic, and retrop eritoneal lymphadenopathy. For example, there is a 2.2 x 1 cm right para-aortic lymph node on series 3, image 142. No free fluid or free air within the abdomen or pelvis. Diffuse diverticulosis throughout the co fernandez without diverticulitis. The appendix is normal. Asymmetry wall thickening of the urinary bladder measuring up to 0.9 cm in thickn ess on the right on series 2, image 234 likely correlates with this pa tient bladder cancer. The prostate is mildly enlarged, measuring 3 .6 cm in AP diameter by 4.8 cm in transverse diameter. BONES: Mild multilevel degenerative changes of the thoracolumbar spine. IMPRESSION: 1. Ectasia of the aortic root at the s inus of Valsalva (4.2 x 3.9 cm) and borderline aneurysm of the ascen ding thoracic aorta (4.7 cm). No acute aortic pathology identified. 2. Fusiform 5.8 x 5.5 cm aneurysm of t he infrarenal abdominal aorta with associated moderate amount of intra luminal thrombus and small noncomplicated penetrating ulcer. It pre viously measured 3.[address] urogram from 2013. 3. 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 4. Nonvascular findings: - Mediastinal, bilateral hilar, and abdo jennifer lymphadenopathy highly concerning for metastasis. - Asymmetric right urinary bladder wall thickening may correlate with this patient bladder cancer. Signed: Kim Hamilton MD Report Verified Date/Time: 11/05/2019 14:08:15 Reading Location: [place] [id number] Procedure Note Interface, External Ris In - 11/05/2019 2:10 PM CDT FINAL REPORT EXAM: CTA OF THE THORACOABDOMINAL AORTA AND PELVIC ARTERIES INDICATION: AAA, monitoring COMPARISON: CT abdomen pelvis 08/10/2010, CT urogram to 08/25/2013, echocardiogram report 11/05/2019 TECHNIQUE: Multi-detector CT technology was employed. CTA Gated axial imaging of the chest, abdomen, and pelvi s was performed after the administration of IV contrast. IV CONTRAST: 100 mL of Isovue-370 ORAL CONTRAST: None COMPLICATIONS: None RADIATION DOSE: Total DLP: 1200 mGy*cm Estimated effective dose: (DLP x 0. 015 x size factor) mSv CTDIvol has been reviewed. It is be low the limits set by the Radiation Protocol Committee (RPC). For optimization of anatomic evaluation, multiplanar reconstruction, maximum intensity projections, and Gamida Cellan Capevo 3-D off-line postprocessing were performed on a [employer] stand-alone workstation under the direct supervision of the [facility] physician. FINDINGS: Potential study limitations: None. LINES/ TUBES: None. VASCULAR WITH ADVANCED 3-D OFF-LINE POST PROCESSING: AORTIC VALVE: Aortic valve morphology is trileaflet an d contains moderate calcifications of the right coronary cus p. AORTA: The thoracic aorta is markedly tortuous. 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 The aortic arch is normal in size, measuring 2.9 cm in diameter. The proximal and mid ascending thoracic aort a are mildly dilated measuring up to 3.3 cm. The distal desce nding thoracic aorta is normal in size. There is no acute aortic pathology, such as dissection, intramural hematoma, or contained rupture. Aortic plaques: Scattered calcified and noncalcified atherosclerotic changes throughout the thoracic aorta, w orse in the descending thoracic segment. There is a 5 mm no unc omplicated penetrating ulcer within the anterior wall of the mid asce nding thoracic aorta on series 2, image 67. The arch vessel branching pattern is con ventional. All of the arch branch vessels appear widely patent in t heir proximal portions. The innominate artery is markedly tortuous a nd ectatic measuring up to 1.2 cm in diameter. Abdominal aortic aneurysm detail anatomy : Fusiform 5.8 x 5.5 cm aneurysm of the infrarenal abdominal aor ta, which begins 5.2 cm below the right renal artery and extends down to just above the bifurcation. The aneurysm is associated with moderate amount of intraluminal thrombus, which contains mi ld internal calcification, and resulting in 40% of intraluminal asa rowing with a minimal lumen of 3.6 cm. There is a 10 mm penetrating ulcer within the aneurysm, at the level of L5 vertebral body on series 3, image 169. The superior neck measures 2.6 cm and the inferior ne ck measures 3.2 cm. The length from the aortic bifurcation to th e origin of the external iliac arteries is 5 cm. There is modera te angulation of the aneurysm. The remaining abdominal aorta is tortuou s but normal in caliber. There is no acute aortic pathology . Aortic plaques: Moderate nonobstructing atherosclerotic changes throughout the abdominal aorta. Nutrition Technician dimensions of the thoraci c aorta are as follows: 2.4 x 2.9 cm at the aortic annulus 4.2 x 3.9 cm at the sinuses of Valsalva (the sinotubular junction is preserved) 4.7 cm at the proximal and mid ascending aorta 3.9 cm at the distal ascending aorta 2.9 cm at the mid transverse arch 3.3 cm at the proximal and 3.4 cm at the distal descending thoracic aorta 3.0 cm at the diaphragmatic hiatus. The abdominal aorta measures: 2.9 cm at the supramesenteric segment 2.9 cm at the mesenteric segment 2.6 cm at the renal segment 5.8 x 5.5 cm at the mid infrarenal segme nt 3.2 cm at the aortic bifurcation. The celiac axis, SMA, and DAVONTE are patent . There are single renal arteries bilaterally, both of which appe ar patent. The pelvic arteries are diffusely dilate d, specifically with aneurysm of the right and left common iliac arter ies, measuring up to 2.6 cm and 1.7 cm, respectively. There are mil d to moderate nonobstructing atherosclerotic changes of the pelvic ar teries. 2.6 cm at the right common iliac artery 0.9 cm at the right external iliac arter y 1.7 cm at the left common iliac artery 0.8 cm at the left external iliac artery NON VASCULAR FINDINGS: LUNGS AND AIRWAYS: Moderate bilateral c entrilobular emphysema. No suspicious pulmonary nodules or masses. No consolidations. Airways are patent. PLEURA: The pleural spaces are clear.. HEART AND MEDIASTINUM: The thyroid gland is normal. Diffuse mediastinal and bilateral axillary lymph adenopathy. For example there is a 2 cm enlarged lymph node in the rig ht lower paratracheal region (4R), a 3.0 x 1.4 cm left lower paratrac heal enlarged lymph node (4L), and a 1.7 cm subcarinal lymph node (level seven). The largest axillary lymph node measuring 1.5 cm on the right and 1.5 cm on the left. The main pulmonary artery is borde rline in size measuring 3 cm in diameter. The cardiac chambers demonstrate normal atrioventricular and ventriculoarterial concordance, and syst emic and pulmonary venous return. The cardiac chambers are normal in size. The coronary arteries have normal origins and course s. There are diffuse coronary calcifications identified, ou this study was not optimized for coronary artery evaluation . There is no pericardial effusion. ABDOMEN: The liver, gallbladder, and pancreas julien ear normal. The spleen is mildly enlarged, measuring 17 cm in mark th in the craniocaudal dimension. The adrenal glands appear nor mal. Both kidneys are normal in size, shape, and density. Mul tiple bilateral renal cysts have not significantly changed since 201 4. The largest measures 4.5 cm in the inferior left kidney. PELVIS: Right para-aortic, preaortic, and retrop eritoneal lymphadenopathy. For example, there is a 2.2 x 1 cm right para-aortic lymph node on series 3, image 142. No free fluid or f ree air within the abdomen or pelvis. Diffuse diverticulosis throughout the co fernandez without diverticulitis. The appendix is normal. Asymmetry wall thickening of the urinary bladder measuring up to 0.9 cm in thickn ess on the right on series 2, image 234 likely correlates with this pa tient bladder cancer. The prostate is mildly enlarged, measuring 3 .6 cm in AP diameter by 4.8 cm in transverse diameter. BONES: Mild multilevel degenerative changes of the thoracolumbar spine. IMPRESSION: 1. Ectasia of the aortic root at the si nus of Valsalva (4.2 x 3.9 cm) and borderline aneurysm of the ascen ding thoracic aorta (4.7 cm). No acute aortic pathology identified. 2. Fusiform 5.8 x 5.5 cm aneurysm of th e infrarenal abdominal aorta with associated moderate amount of intra luminal thrombus and small noncomplicated penetrating ulcer. It pre viously measured 3.[address] urogram from 2013. 3. 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 4. Nonvascular findings: - Mediastinal, bilateral hilar, and abdo jennifer lymphadenopathy highly concerning for metastasis. - Asymmetric right urinary bladder wall thickening may correlate with this patient bladder cancer. Signed: Kim Hamilton MD Report Verified Date/Time: 11/05/2019 1 4:08:15 Reading Location: [address] Performing Organization Address City/State/Zipcode Phone Number [facility] POC-Creatinine (11/05/2019 7:25 AM CDT) POC-Creatinine 1.7 (H)Comment: : 0.6 - 1.3 [facility] TESTED AT [facility] mg/dL [facility] [address] [place] [id number]: Software Sales Executive/Technicia n ID = [id number] for IRVIN LOMBARDI POC-EGFR 40 mL/min/1.73M2 [facility] Specimen Blood Performing Organization Address City/[facility]/Zipcode Phone Number [facility] [address] [place] [phone] CENTER after 01/15/2019 Insurance Payer Benefit Plan / Subscriber ID Effective Dates Phone Addre ss Type Group MEDICARE MEDICARE A B [id number] 2009-Presen Medicare [employer] [id number] 2019-Present Medigap SUPPLEMENT/[facility] [address] (Home) [place] [phone] Advance Directives For more information, please contact: [phone] Code Status Date Activated Date Inactivated Comments Full Code 2020 12:11 PM 2020 4:40 PM This code status was determined by: Patient Full Code 12/12/2019 2:03 PM 12/19/2019 12:54 PM This code status was determined by: Patient Full Code 12/12/2019 2:03 PM 12/12/2019 2:03 PM This code status was determined by: Patient Full Code 01/28/2017 10:55 PM 01/29/2017 1:33 PM This code status was determined by: Patient
--- OUTSIDE RECORDS SUMMARY | 2020-01-16 05:34 | XMS REPORT | Continuity of Care Document ---
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/01/2017 [place] reflux uropathy, 18 Yogesh d unspecified Hematuria, 05/27/19 06/01/2017 [place] unspecified 18 [place] LUMBAR STENOSIS Active 08/20/[id number] M54.16 - Active 07/21/19 OPIMarcio "RADICULOPATHY, 17 Herm torin LUMBAR REGION" Cerebrovascular Resolved Problem 03/27/2018 Mis terrence accident Neuro, [facility] Clements,Diana Chavez, PRECIOUS [facility] [place] Hematoma Resolved Problem 03/27/2018 [facility] (disorder) Neuro,[facility], PRECIOUS Clements,M Jaquelin Chavez, OPIMarcio [facility] [place] 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 to 8.6 MG Oral Rachelle-Colace. Tablet Docusate Sodium 1 tab, PO, Active 05/29/ Gray gar 50 MG / BID, X 14 day, 2017 [facility] sennosides, FDC # 28 tab, 0 8.6 MG Oral Refill(s), Tablet Pharmacy: [facility] [id number] ciprofloxacin 500 500 mg = 1 Active [place] mg oral tablet tab, PO, Q12H, 2018 [place] X 7 day, # 14 tab, 0 Refill(s), Pharmacy: [facility] [id number] Demarcus Notes: May Inactive Sugar interfere 2018 [...] No Longer Sugar MG / Hydrocodone as: [place] Active 2017 [place] Bitartrate 5 MG 325/5) [...] MG TAB, Dosing Oral Tablet Weight 89.545, [[place] 5/325] kg, ONCE, STAT, Start date: 05/26/17 [...] DO NOT Inactive [place]. 2017 [facility] Center Lisinopril Notes: (Same No Longer Javad as as: Prinivil, Active 2017 Medical Zestril) [place] Famotidine 20 MG 20 mg = 1 tab, Active [facility] Oral Tablet PO, BID, # 20 2017 Medica l tab, 0 Center Refill(s) magnesium citrate 8.725 gm = 150 No Longer 09/23 [facility] 58.2 MG/ML Oral ml, PO, Daily, Active 2016 M edical Solution X 2 day, # 300 Center mL, 0 Refill(s) Acetaminophen 325 1 tab, PO, Active [facility] MG / Hydrocodone Q6H, PRN for 2017 Ia dical Bitartrate 10 MG pain, X 14 Cent er Oral Tablet day, # 90 tab, [[place] 10/325] 0 Refill(s) Methocarbamol 500 500 mg = 1 Active [facility] MG Oral Tablet tab, PO, Q8H, 2017 Med ical [Robaxin] PRN Spasms, X Center 10 day, # 30 tab, 0 Refill(s) {21 See Active [facility] (Methylprednisolo Instructions, 2017 Medical ne 4 MG [...] 2017 Medical (Do Not Crush) Center sennosides, FDC Notes: (Same No Longer [facility] [place] as: Senokot) Active 2017 [...] Acetaminophen 325 Notes: Do not No Longer [place] MG / Hydrocodone exceed 4gm/day Active 2016 [facility] Bitartrate 10 MG of Center Oral Tablet acetaminophen. [[place] 10/325] (Same as: [place] 325/10) Dilaudid Notes: Same No Longer [facility] as: Dilaudid Active 2017 Medical [place] Bisacodyl Notes: (Same No Longer [place] As: Dulcolax, Active 2016 [facility] Bisco-Lax) Center phenol Notes: No Longer [facility] Chloraseptic Active 2016 Medical [place] (Same Center as: Chloraseptic, Sore Throat [place]) WASTE: F/P - Black; E - Municipal Trash Bin Melatonin 3 MG Notes: (Same No Longer [facility] Extended Release as: Melatonin) Active 2017 Medical Tablet Center Benadryl Notes: (Same No Longer [facility] as: Benadryl) Active 2017 Medical Center ceFAZolin Notes: Same No Longer [facility] as: Ancef Active 2016 Medical Center Allergies, Adverse Reactions, Alerts No Known Medication Allergies Immunizations No Data Provided for This Section Results Order Name Results Value Reference Date Interpretation Comments Sulema rce Range HEMATOLOGY MCHC 32.2 32.0 - 05/29 Sugar 36.0 2018 [facility] HEMATOLOGY MPV 8.6 7.4 - 10.4 05/29 [facility] HEMATOLOGY Platelet 222 133 - 450 05/29 [...] HEMATOLOGY Platelet 225 133 - 450 05/28 [facility] HEMATOLOGY RDW 16.4 11.5 - 05/28 [place] 14.5 [place] HEMATOLOGY MCH 27.8 27.0 - 05/28 [place] 31.0 [place] HEMATOLOGY MCHC 32.2 32.0 - 05/28 [place] 36.0 [facility] HEMATOLOGY MCV 86.2 80.0 - 05/28 [place] 94.0 [place] HEMATOLOGY Hct 35.5 42.0 - 05/28 [place] 54.0 [facility] HEMATOLOGY MPV 8.2 7.4 - 10.4 05/28 Sugar [facility] HEMATOLOGY Hgb 11.4 14.0 - 05/28 [place] 18.0 [place] HEMATOLOGY RBC 4.13 4.70 - 05/28 [place] 6.10 [place] HEMATOLOGY WBC 51.0 3.7 - 10.4 05/28 Result Comment: [facility] Critical Result(s) called to HANDY Garcia at 05/28/2017 05:59 by LOG 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 Read back OK. CHEM PANEL eGFR 68 05/27 Result Comment: [facility] eGFR is calculated using the CKD-EPI formula. [...] 0.0 - 0.2 05/27 [place] /2017 [facility] HEMATOLOGY Anisocyte 1+ None Seen 05/27 [place] *ABN* /2017 [place] (05/27/17 8:34 AM) HEMATOLOGY Eosinophils 0.2 0.0 - 0.5 05/27 [place] # /2017 [facility] HEMATOLOGY Segs 19.3 45.0 - 05/27 [place] 75.0 /2017 [facility] HEMATOLOGY Plt Morph Normal 05/27 [place] (05/27/17 8:34 AM) /2017 [facility] HEMATOLOGY Lymphocytes 78.6 20.0 - 05/27 [place] 40.0 /2017 [facility] HEMATOLOGY Platelet 213 133 - 450 05/27 [place] /2017 [facility] HEMATOLOGY MPV 8.5 7.4 - 10.4 05/27 [place] /2017 [facility] HEMATOLOGY MCHC 33.0 32.0 - 05/27 [place] 36.0 [facility] HEMATOLOGY RDW 16.4 11.5 - 05/27 [place] 14.5 [facility] HEMATOLOGY Hgb 12.4 14.0 - 05/27 [place] 18.0 [facility] HEMATOLOGY MCV 86.8 80.0 - 05/27 [place] 94.0 [facility] HEMATOLOGY Hct 37.4 42.0 - 05/27 [place] 54.0 [facility] HEMATOLOGY MCH 28.7 27.0 - 05/27 [place] 31.0 /2017 [facility] HEMATOLOGY WBC 56.8 3.7 - 10.4 05/27 Result /2017 Comment: [facility] Critical Result(s) called to Nadeem Ayala Rn at 05/27/2017 08:53 by Bry. Read back OK. HEMATOLOGY RBC 4.31 4.70 - 05/27 [place] 6.10 [facility] BLOOD BANK ABO/Rh A POS 05/27 [place] RESULTS /2017 [facility] BLOOD BANK Antibody Negative 05/27 [place] RESULTS Scrn (05/27/17 1:34 AM) [facility] BLOOD BANK Platelet Product available 05/27 Sugar RESULTS product (05/27/17 1:25 AM) /2017 [facility] CHEM PANEL eGFR 49 05/27 Result Sugar /2017 Comment: [facility] eGFR is calculated using the CKD-EPI formula. [...] 35.8 [place] CHEM PANEL eGFR 54 09[facility] Comment: The Medical eGFR is Center calculated [...] PANEL AGAP 15.8 10.0 - 09/19 Result [facility] 20. Comment: Medical Collection Center date/time has [...] BUN 18 7 - 22 09/19 Result [facility] Comment: Medical Collection Center date/time has been modified to: 15:35:00. Previous collection date/time: 16:41:00. CHEM PANEL Sodium Lvl 144 135 - 145 09/19 Result [facility] Comment: Medical Collection Center date/time has been modified to: 15:35:00. Previous collection date/time: 16:41:00. CHEM PANEL Creatinine 1.31 0.50 - 09/19 Result [facility] [place] [facility] 1.40 Comment: Medical Collection Center date/time has been modified to: 15:35:00. Previous collection date/time: 16:41:00. CHEM PANEL Potassium 3.8 3.5 - 5.1 09/19 Result [facility] Comment: Medical Collection Center date/time has been modified to: 15:35:00. Previous collection date/time: 16:41:00. Pathology Reports No Data Provided for This Section Diagnostic Reports Report Value Date Source Bladder US Bladder Ultrasound 05/27/2017 [facility] History: Hematuria - looking for blood [...] to earlier study. Bladder US EXAM: 05/27/2017 [facility] Urinary bladder ultrasound. CLINICAL HX: Hematuria. [...] -- Two subcentimeter ovo id foci of [id number] restricted diffusion, consistent with acute lacunar infarcts, [...] n outpatient basis. On 12/28/2016 4:30 PM SKIN TANNER, a call was placed to to notify the referring clinician's office that this exam has important findings p otentially requiring urgent follow-up and to direct their attention to the report for details. There was no response after several attempts, and no voicemail option was available. Several unsuccessful attempts were subsequently m pierce to reach the patient at the provided number of [phone]. A generic message was left on the [...] edema, compression or myelomal acia. 4. Bilateral anterior/malter operator ior triangle and supraclavicular adenopathy, reactive or neoplastic. Correlate with history. 5. 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 SL: [id number] Spine Thoracic wo Patient Name: IDANIA TERRY 08/11/2016 PRECIOUS [place] contrast MRI : 1945; Age: 71 years y/o Male MR: [id number] Study: Spine Thoracic wo contrast MRI 08/11/2016 [...] canal stenosis or neural foraminal narrowing. SL: [id number] Spine cervical wo Study: Spine cervical wo contrast MRI 08/12/19 17 [facility] contrast MRI Clinical Indication: G95.9 Disease [...] of the cervical s keith cord. SL: [id number] Spine lumbar flex/ext EXAM: XR LUMBAR SPINE [...] Date Comments Source Heart Rate 63 05/29/2017 [place] Temperature Oral (F) 97.8 F 05/29/2017 [facility] [place] Respitory Rate 18 05/29/2017 [facility] [place] Systolic (mm Hg) 145 05/29/2017 [facility] [place] Diastolic (mm Hg) 83 05/29/2017 MH [place] and Respitory Rate 18 05/29/2017 [facility] [place] Heart Rate 64 05/29/2017 [place] Temperature Oral (F) 97.4 F 05/29/2017 [place] Systolic (mm Hg) 156 05/29/2017 [facility] [place] Diastolic (mm Hg) 86 05/29/2017 MH [place] L and Respitory Rate 18 05/29/2017 [facility] [place] Temperature Oral (F) 98 F 05/29/2017 [place] Heart Rate 59 05/29/2017 [place] Systolic (mm Hg) 158 05/29/2017 [place] Diastolic (mm Hg) 69 05/29/2017 MH [place] L and BMI Calculated 27.32 05/27/2017 [place] Height 177.8 cm 05/27/2017 [place] Weight 86.364 05/27/2017 [place] Weight 89.545 05/27/2017 [place] Weight 90.909 12/28/2016 [facility] BMI Calculated 28.76 12/28/2016 [facility] Height 177.8 cm 12/28/2016 [facility] Heart Rate 74 12/28/2016 [facility] Systolic (mm Hg) 163 12/28/2016 [facility] Julio ro Diastolic (mm Hg) 82 12/28/2016 [facility] Temperature Oral (F) 97.8 F 12/28/2016 [facility] Heart Rate 89 09/24/2016 [place] [facility] Temperature Oral (F) 97.5 F 09/24/2016 [facility] Respitory Rate 18 09/24/2016 [facility] juju Center Systolic (mm Hg) 176 09/24/2016 [facility] dical Center Diastolic (mm Hg) 83 09/24/[facility] 84 09/24/2016 [facility] Systolic (mm Hg) 143 09/24/2016 [facility] dical Center Diastolic (mm Hg) 73 09/24/2016 [facility] [place] [facility] Respitory Rate 17 09/24/2016 [facility] Temperature Oral (F) 98.5 F 09/24/2016 [facility] Temperature Oral (F) 98.1 F 09/24/2016 [facility] Systolic (mm Hg) 146 09/24/2016 [facility] Diastolic (mm Hg) 79 09/24/2016 [facility] [place] Respitory Rate 18 09/24/2016 [facility] Heart Rate 70 09/24/2016 [facility] [place] BMI Calculated 29.48 09/22/2016 [facility] Weight 93.182 09/22/2016 [facility] Height 177.8 cm 09/22/2016 [facility] [place] Weight 90.455 09/19/2016 [facility] [place] BMI Calculated 28.61 09/19/2016 [facility] Height 177.8 cm 09/19/2016 [facility] Encounters Location Location Encounter Encounter Reason Attending ADM AL Stat us Source Details Type Number For Provider Date Date Visit Outpatient [id number] TJ ALICIA 07/20 [facility] Outpt Diag [id number] Tj Alicia 07/20 07/21 [facility] Outpt Diag [id number] Tj Alicia 08/11 08/12 [facility] [place] Outpatient [id number] TJ ALICIA 08/17 [facility] [place] [facility] [id number] TJ ALICIA 09/19 [facility] [place] [facility] [id number] TJ ALICIA 09/19 [facility] [place] [facility] [id number] TJ ALICIA 09/22 [facility] Observation [id number] Tj Alicia 09/22 09/24 [facility] Outpatient [id number] [place] 10/07 Active [facility] [place] Outpatient [id number] TJ ALICIA 11/14 [facility] [place] [facility] Phone [id number] 12/23 12/25 [facility] Message Neuro MNA Spine Phone [id number] 12/26 12/28 [facility] Neuro Outpatient [id number] TJ MICHEL 12/28 [facility] [place] MNA Spine Outpatient [id number] Javi 12/28 12/29 [facility] 8 Aayush Neuro [facility] Outpt Diag [id number] Rufina 12/28 12/29 [facility] 0 [facility] MNA Spine Phone [id number] 01/02 01/04 [facility] Message Neuro MNA Spine Phone [id number] 01/03 01/05 [facility] Message Neuro MNA Spine Phone [id number] 01/16 01/18 [facility] Message Neuro Outpatient [id number] TJ MICHEL 02/13 [facility] [place] MNA Spine Ambulatory [id number] Javi 02/13 02/13 [facility] Pre-Reg 7 Aayush Neur o MNA Spine Phone [id number] 03/15 03/17 [facility] TM Message Neuro [facility] Observation [id number] Chata 05/27 05/29 Christel Clements [address] [place] MNA Spine Phone [id number] 09/06 09/08 [facility] Message Neuro Procedures Procedure Code Date Perfomer Comments Source Bladder irrigation, [address] 05/28/2017 [place] simple, lavage and/or instillation Bladder operation [id number] [facility] [place] Neuro,[facility], PRECIOUS Clements, OPID Scott, [facility] [place] Drainage [id number] [facility] [place] Neuro,[facility], PRECIOUS Clements, OPID Scott, OPID [facility] [place] Lymph node [id number] [facility] [place] operation Neuro,[facility], PRECIOUS Clements, OPID Scott, OPID [facility] [place] Assessment and Plan Assessment and Plan Date Source Extracted from:Title: Progress Note * 05/29/2017 DARREN Billy Author: Colton Angel MD Date: 05/29/17 Impression and Plan Gross hematuria with clot retention afte r urodynamics at [facility]. Patient has been on aspirin and [...] and Plan Gross hematuria after urodynamics at [facility]. Patient was on aspirin and Plavix [...] Cessation Counseling No Social History TypeResponse 09/19/2016 [facility] Alcohol Current, Frequency: 1-2 times per year. [...]
--- OUTSIDE RECORDS SUMMARY | 2020-01-16 05:42 | XMS REPORT | Continuity of Care Document ---
:1945 Author Organization [facility] t Address [address] [place] [address] Care Team Providers Name Role Phone Ella SCHMIDT Primary Care Physician Riki Bolanos MD Attending Clinician RIKI BOLANOS Attending Clinician Unavailable Elyssa WHITE Attending Clinician Unavailable Riki Bolanos MD Attending Clinician Kenny Sierra MD Attending Clinician Yoan SCHMIDT Attending Clinician Brian Herrera Attending Clinician Unavailable Navid Pierce MD Attending Clinician María Faye Attending Clinician Unavailable KENNY SIERRA Attending Clinician Unavailable Gee Lo NP Attending Clinician Ella SCHMIDT Attending Clinician ELLA Attending Clinician Unavailable 1, [address] Room Attending Clinician Unavailable GEE LO Attending Clinician Unavailable Doctor Unassigned, Name Attending Clinician Unavailable SHABANA GARCIA Attending Clinician Unavailable Luciana Carlson Attending Clinician Gisella Alicia Attending Clinician MICHAEL FROST Attending Clinician Unavailable Ingrid Askew Attending Clinician RIKI BOLANOS Admitting Clinician Unavailable KENNY SIERRA Admitting Clinician Unavailable SHABANA GARCIA Admitting Clinician Unavailable Luciana Carlson Admitting Clinician MICHAEL FROST Admitting Clinician Unavailable Giselal Alicia Admitting Clinician Payers Payer Name Policy Type Policy Effective Date Expiration Date Sour ce Number MEDICAREMEDICARE A [id number] [id number] 2009- 00:00:00 - Medical PresentMedicare Center [facility] [id number] [facility] SUPPLEMENT/INDIVIDUALA 00:00:00 - [id number]02/2019-PresentMedigap Problems Condition Condition Condition Status Onset Resolution Last Treating Co mments Source Name Details Category Date Date Treatment Clinician Date PVD PVD Disease Active 2019-[address] [facility] (periphera (periphera 1-30 Yaa kes - l vascular l vascular 00:00: Me dical disease) disease) 00 Center Lower limb Lower limb Disease Active 2019-[address] ischemia- ischemia- -06 [facility] - Left lower Left lower 00:00: Me dical extremity, extremity, 00 Ce nter chronic chronic vs. acute vs. acute post-opera post-opera tively tively Abdominal Abdominal Disease Active 2019-[address] aortic aortic 1-05 [facility] - aneurysm aneurysm 00:00: Medica l (HCC) s/p (HCC) s/p 00 Cent er EVAR EVAR 12/13/2019 12/13/2019 CKD CKD Disease Active 2019-[address] [facility] (chronic (chronic 1-05 [facility] - kidney kidney 00:00: Medical disease) disease) 00 Center stage 3, stage 3, GFR 30-59 GFR 30-59 ml/min ml/min Ascending Ascending Disease Active [facility] aortic aortic 9-29 [facility] - aneurysm aneurysm 00:00: Medica l 00 Center Bladder Bladder Disease Active [facility] cancer cancer 7-20 [facility] - 00:00: Medical 00 Center CVA CVA Disease Active 2016-[address] [facility] (cerebral (cerebral 2-23 [facility] - vascular vascular 00:00: Medica l accident) accident) 00 Cent er (HCC) with (HCC) with residual residual left-sided left-sided weakness weakness Paroxysmal Paroxysmal Disease Active 2016-[address] atrial atrial 2-23 [facility] - fibrillati fibrillati 00:00: Me dical on on 00 Center CLL CLL Disease Active 2016-[address] [facility] [address] (chronic (chronic 2-23 [facility] - lymphocyti lymphocyti 00:00: Me dical c c 00 Center leukemia) leukemia) Essential Essential Disease Active 2016-[address] hypertensi hypertensi 2-23 Yaa kes - on on 00:00: Medical 00 Center History of History of Disease Active 2016-[address] lacunar lacunar -23 [facility] - cerebrovas cerebrovas 00:00: Me dical cular cular 00 Center accident accident (CVA) (CVA) LUMBAR Diagnosis Active 2016-10-17 Mem oria STENOSIS -14 14:47:00 l LUMBAR 00:00: Tyree STENOSIS 00 Active 08/19/2016 [facility] M54.16 - Diagnosis Active 2016-07-20 M emoria "RADICULOP 6-14 12:52:00 l ATHY, M54.16 - 00:01: Dieudonne n LUMBAR "RADICULOP 00 REGION" ATHY, LUMBAR REGION" Active 07/20/2016 PRECIOUS [place] Mitral Mitral Disease Active [facility] valve valve 06-06 Methodi insufficie insufficie 00:00: st ncy ncy 00 Panlobular Panlobular Disease Active H jordan emphysema emphysema 06-06 Meth rosario 00:00: st 00 Peripheral Peripheral Disease Active H [facility] vascular vascular 06-06 Method i disease disease 00:00: st 00 Pitting Pitting Disease Active [facility] edema edema - Methodi 00:00: st 00 Myelopathy Myelopathy Disease Active H jordan of of 06-06 Methodi cervical cervical 00:00: st spinal spinal 00 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 radiculopa thy thy SVT SVT Disease Active [facility] (supravent (supravent 06-06 Me thodi ricular ricular 00:00: st tachycardi tachycardi 00 a) a) CLL CLL Disease Active [facility] (chronic (chronic 5-01 Method i lymphocyti lymphocyti 00:00: st 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) Hematoma Problem Resolve 2018-03-27 Me moria (disorder) d 14:50:09 l Hematoma Dieudonne n (disorder) Resolved Problem 03/27/2018 [facility], PRECIOUS Clements, PRECIOUS Chavez,M [facility] [place] Hypertensi Problem Active 2018-03-27 M emoria ve 14:50:09 l disorder, [place] systemic Hypertensi arterial ve (disorder) disorder, systemic arterial (disorder) Active Problem 03/27/2018 [facility], PRECIOUS Clements, PRECIOUS Chavez,M [facility] [place] Tobacco Tobacco Disease Active [facility] use use [facility] Obstructiv Problem 2017-2017-06-01 2017-06-01 Memoria e and 4-20 02:24:06 02:24:06 l reflux 05:00: [place] uropathy, Obstructiv 00 unspecifie e and d reflux uropathy, unspecifie d 05/26/2017 06/01/2017 [place] Hematuria, Problem 2017-2017-06-01 2017-06-01 Memoria unspecifie 4-20 02:24:06 02:24:06 l d 05:00: [place] Hematuria, 00 unspecifie d 05/26/2017 06/01/2017 [place] History of Past Illness Condition Condition Condition Status Onset Resolution Last Treating Co mments Source Name Details Category Date Date Treatment Clinician Date Aneurysm Aneurysm Disease Resolve 2019-12-13 2019-12-[address] [facility] of d 00:00:00 12:14:57 [facility] - infrarenal infrarenal Me dical abdominal abdominal Cent er aorta aorta Allergies, Adverse Reactions, Alerts Allergy Allergy Status Severity Reaction(s) Onset Inactive Treating Comm ents Source Name Type Date Date Clinician Ciproflo Propensi Active Palpitations Heart [facility] xacin ty to 8 rate [facility] - adverse 00:00: increase. Medica l reaction 00 Center s [place]ut Propensi Active Swelling 2016-02 Lip [place] to 04-01 tongue Methodi adverse 00:00: swelling st reaction 00 s to drug [place]ut Propensi Active Swelling 2016-[address] [facility] ty to 2-24 tongue [facility] - adverse 00:00: swelling Medical reaction 00 Center s Clonidin Propensi Active Severe 2016-02 Makes him Juana ston e ty to 2-23 extremely Methodi adverse 00:00: depressed st reaction 00 s to drug Pseudoep Propensi Active Other (See 2016-02 Irregular Leon hedrine ty to Comments) 2- heart Method i adverse 00:00: beat st reaction 00 s to drug Clonidin Propensi Active Severe 2016-[address] [facility] e ty to 2-23 extremely [facility] - adverse 00:00: depressed Medica l reaction 00 Center s Pseudoep Propensi Active Other (See 2016-[address] hedrine ty to Comments) 2- heart [facility] - adverse 00:00: beat Medical reaction 00 Center s Meperidi Drug Active 2016-[address] ne Allergy 2-11 reaction( [facility] - 00:00: s): Medical 00 Unknown Center Family History Family Member Diagnosis Comments Start Date Stop Date Source Natural father Cancer [facility] Natural father Hypertension [facility] Natural father Aneurysm [facility] Natural mother Arthritis [facility] Natural mother COPD [facility] Social History Social Habit Start Date Stop Date Quantity Comments Source History of tobacco [facility] sm[facility] Sex Assigned At [facility] Yaa kes - [facility] Exposure to Not sure [facility] - SARS-CoV-2 (event) [facility] [place] Cigarettes smoked 2020-01-07 2020-01-[address] [facility] - current (pack per 00:00:00 00:00:00 Medical Center day) - Reported Cigarette 2020-01-07 2020-01-[address] [facility] - pack-years 00:00:00 00:00:00 [facility] Tobacco use and 2020-01-07 2020-01-07 Never used [facility] St Yaa kes - exposure 00:00:00 00:00:00 [facility] Alcohol intake 2020-01-07 2020-01-07 Ex-drinker [facility] es - 00:00:00 00:00:00 (finding) [facility] Social History 2016-09-19 2016-09-19 [facility] Jaquelin isaac 20:24:11 20:24:11 Alcohol Comment 2016-05-25 2016-05-25 willis Ortiz ethodist 00:00:00 00:00:00 Smoking Status Start Date Stop Date Source Former smoker 2020-01-07 00:00:00 2020-01-07 00:00:[address] [facility] Social History 2016-07-21 10:16:13 [facility] Medications Ordered Filled Start Stop Current Ordering Indication Dosage Frequency Signature Comments Components Source Medication Medication Date Date Medication? Clinician (SIG) Name Name rosuvastati 2019-02 Yes 10mg Take [address] n (CRESTOR) 30 by mouth Luke s - 10 MG 14:40: At bedtime Medica l tablet 15 . Center traMADoL 2019-02- Yes 50mg Take [address] (Ultram) 50 03-07 tablet (50 L ukes - mg tablet 00:00: 23:59 mg total) Me dical 00 :00 by mouth Center every 6 (six) hours as needed for Pain. Max Daily Amount: 200 mg aspirin 81 2019-02- Yes 81mg QD Take [address] MG EC 02-18 tablet (81 [facility] - tablet 00:00: 23:59 mg total) Medic al 00 :00 by mouth Center daily. nebivoloL 2019-02- Yes 10mg QD Take 1 [facility] (BYSTOLIC) 02-18- tablet (10 Yaa kes - 10 MG 00:00: 23:59 mg total) Medica l tablet 00 :00 by mouth Center daily for 60 days. aspirin 81 2019-02- No 81mg QD Take [address] MG EC 02-18-12 tablet (81 [facility] - tablet 00:00: 00:00 mg total) Medic al 00 :00 by mouth Center daily. nebivoloL 2019-02- No 10mg QD Take 1 [facility] (BYSTOLIC) 02-18-12 tablet (10 Yaa kes - 10 MG 00:00: 00:00 mg total) Medica l tablet 00 :00 by mouth Center daily for 60 days. nebivolol 2019-02- No 10mg QD Take [address] (BYSTOLIC) 02-17 by mouth Luke s - 10 MG 08:27: 00:00 daily Medical tablet 51 :00 Taken in Center AM. dilTIAZem 2019-02- No 240mg QD Take [address] (CARDIZEM 02-1712 mg by [facility] - CD) 240 MG 08:27: 00:00 mouth Medic al 24 hr 51 :00 daily. [place] capsule clopidogrel 2019-02- No 75mg QD Take [address] (PLAVIX) 75 02-17 by mouth Sonia es - mg tablet 08:27: 00:00 daily. Medic al 51 :00 [place] aspirin 81 2019-02- No 81mg QD Take [address] MG EC 02-17 by mouth [facility] - tablet 08:27: 00:00 daily. Medical 51 :00 [place] VALSARTAN 2019-02- No 160mg QD Take [address] ORAL 02-17 mg by [facility]ukes - 08:27: 00:00 mouth Medical 51 :00 daily . [place] nebivolol 2019-02- No 5mg QD Take [address] (BYSTOLIC) 02-17 by mouth Luke s - 5 MG tablet 08:27: 00:00 nightly. M edical 51 :00 [place] clopidogreL 2019-02- Yes 75mg QD Take [address] (PLAVIX) 75 02-17 tablet (75 L ukes - mg tablet 00:00: 23:59 mg total) Me dical 00 :00 by mouth Center daily for 60 days. dilTIAZem 2019-02- Yes 60mg Take 1 [facility] (CARDIZEM) 02-17 tablet (60 Yaa kes - 60 MG 00:00: 23:59 mg total) Medica l tablet 00 :00 by mouth Center every 6 (six) hours for 60 days. dilTIAZem 2019-02- No 60mg Take 1 [facility] (CARDIZEM) 02-17 tablet (60 Yaa kes - 60 MG 00:00: 00:00 mg total) Medica l tablet 00 :00 by mouth Center every 6 (six) hours for 60 days. clopidogreL 2019-02- No 75mg QD Take [address] (PLAVIX) 75 02-17 tablet (75 L ukes - mg tablet 00:00: 00:00 mg total) Me dical 00 :00 by mouth Center daily for 60 days. chlorhexidi 2019-02- [facility] t ne 1-04 11-12 [facility]ukes - (HIBICLENS) 11:16: 08:27 Medic al external 54 :48 Center liquid 4% chlorhexidi 2019-02- No Aneurysm of 1{bottl Apply [address] [facility] [facility] ne 0-30 10-30 infrarenal e} Bottle [facility] - gluconate 2 00:00: 23:59 abdominal topically Medical % Liqd 00 :00 aorta (HCC) once for 1 Center dose. valsartan-h 2019-02- No 1{tbl} QD Take [address] ydrochlorot 0-12 11-12 tablet by Yaa kegabe - hiazide 00:00: 00:00 mouth Medical (DIOVAN-HCT 00 :00 daily. [place] ) 160-12.5 mg per tablet Docusate No Notes: Memoria Sodium 50 4-23 (Same as l MG / 22:00: Senokot-S) [place] sennosides, 00 Equiv. to FCI 8.6 MG Rachelle-Colac Oral Tablet e. Docusate Yes 1 tab, PO, Mem oria Sodium 50 4-23 BID, X 14 l MG / 17:38: day, # 28 [place] sennosides, 00 tab, 0 FCI 8.6 MG Refill(s), Oral Tablet Pharmacy: [facility] ciprofloxac Yes 500 mg = 1 Memoria in 500 mg 4-23 tab, PO, l oral tablet 17:38: Q12H, X 7 H ermann 00 day, # 14 tab, 0 Refill(s), Pharmacy: [facility] Cipro No Notes: May Memori a 4-23 interfere l 14:00: w/enteral Tyree 00 feedings - Take 1 hr before or 2 hrs after antacids, dairy pdt & minerals. On empty stomach. Normal No Notes: For Memor ia Saline for 4-23 irrigation l Irrigation 02:30: only. Dieudonne n 00 Sodium No Notes: For Memor ia Chloride 4-23 irrigation l 02:22: only. Tyree 00 Diltiazem No Notes: Memori a Hydrochlori 4-22 (Same as: l de ER 21:00: Cardizem [place] CD) Do Not Crush Before meals. 24 HR Yes 240 mg = 1 Memori a Diltiazem 4-22 cap, PO, l Hydrochlori 15:24: Daily, 0 He rmann de 240 MG 00 Refill(s) Extended Release Capsule [Cartia] clopidogrel No 75 mg = 1 M emoria 75 MG Oral 4-22 tab, PO, l Tablet 15:24: Daily, 0 Tyree [Plavix] 00 Refill(s) Aspirin No 81 mg, 0 Memori a 4-22 Refill(s) l 15:24: [place] nebivolol Yes 10 mg = 1 Mem oria 10 MG Oral 4-22 tab, PO, l Tablet 15:24: Daily, 0 [place] [Bystolic] 00 Refill(s) Bystolic No Notes: Memoria 4-22 (same as: l 14:00: Bystolic) [place] 00 Crestor No Notes: Memoria 4-22 (Same As: l 02:00: Crestor) [place] 00 Docusate No Notes: Memoria 4-21 (Same as: l 14:00: Colace) [place] 00 (Do Not Crush) Lisinopril No Notes: Memor ia 4-21 (Same as: l 14:00: Prinivil, [place] 00 Zestril) Clonidine No Notes: Memori a Hydrochlori 4-21 (Same As: l de 0.1 MG 14:00: Catapres) Her garcia Oral Tablet 00 Hydralazine No Notes: Juan Alberto verónica 4-21 (Same as: l 09:19: Apresoline ) Push over 5 minutes Cataflam No 50 mg = 1 Juan Alberto verónica 4-21 tab, PO, l 08:46: TID, PRN pain, # 30 tab, 0 Refill(s) Acetaminoph No Notes: Do M emoria en 4-21 not exceed l 07:05: 4 gm/day. [place] 00 (Same as: Tylenol) Acetaminoph No Notes: Juan Alberto verónica en 325 MG / 05-27 (Same as: l Hydrocodone 07:05: [place] nn Bitartrate 00 325/5) Do 5 MG Oral not exceed Tablet 4gm/day of acetaminop hen. Morphine No Notes: Memoria 4-21 (Same l 07:05: as:MORPhin [place] e Sulfate) Ondansetron No Notes: Juan Alberto verónica - (Same as: l 07:05: Zofran) [place]ree 00 MEDICATION WASTE Product Size: 4 mg Product Wasted: ___ mg Irrigation No Notes: For M emoria w/ Normal 4-21 irrigation l Saline 07:00: only. [place] 00 Sodium No Notes: For Memor ia Chloride -21 irrigation l 0.0769 07:00: only. [place] MEQ/ML 00 Irrigation Solution Sodium No 250 mL, Memoria Chloride 05-27 Rate: To l 0.9% 06:25: prime line [place] (titrate) 00 and flush 250 mL remaining blood products., Dosing Weight 89.545, kg, Route: IV, Total Volume: 250, Start Date: 05/27/17 1:25:00 CDT, Duration: 30 day, Stop date: 06/26/17 1:24:00 CDT, Replace Every: 24 hr Irrigation No Notes: For M emoria w/ Normal 4-21 irrigation l Saline 05:58: only. [place] Irrigation No Notes: For M emoria w/ Normal 4-21 irrigation l Saline 04:45: only. [place] Saline No Notes: Memoria Flush 0.9% 05-27 (Same as: l 04:12: BD [place] Posiflush) Phenazopyri No 100 mg = 1 Memoria dine -21 tab, PO, l hydrochlori 03:10: TID, PRN He rmann de 100 MG 00 Dysuria, X Oral Tablet 2 day, # 6 [Pyridium] tab, 0 Refill(s) Acetaminoph No 1 - 2 tab, Memoria en 300 MG / -21 PO, Q4H, l Codeine 03:08: PRN Pain, [place] nn Phosphate 00 X 2 day, # 60 MG Oral 12 tab, 0 Tablet Refill(s) [Tylenol with Codeine #4] Acetaminoph No 2 tab, Juan Alberto verónica en 325 MG / 21 Route: PO, l Hydrocodone 01:45: Drug Form: [place] Bitartrate 00 TAB, 5 MG Oral Dosing Tablet Weight [Hoolehua 89.545, 5/325] kg, ONCE, STAT, Start date: 05/26/17 20:45:00 CDT, Stop date: 05/26/17 20:45:00 CDT Morphine 2017- No 4 mg, Memoria 05-27 Route: l 01:16: IVP, ONCE, Dosing Weight 89.545, kg, Priority: STAT, Start date: 05/26/17 20:16:00 CDT, Stop date: 05/26/17 20:16:00 CDT Morphine 2017-0 No 4 mg, Memoria 05-27 Route: l 00:36: IVP, ONCE, Dosing Weight 89.545, kg, Priority: [...] 00:00: st 00 diltiazem No Notes: DO Mem oria 09-24 NOT CRUSH. l 13:38: Lisinopril No Notes: Memor ia 09-23 (Same as: l 14:00: Prinivil, Zestril) Famotidine Yes 20 mg = 1 Me moria 20 MG Oral 8-18 tab, PO, l Tablet 10:44: BID, # 20 Dieudonne n 00 tab, 0 Refill(s) magnesium No 8.725 gm = Me moria citrate 8-18 150 ml, l 58.2 MG/ML 10:44: PO, Daily, H ermann Oral 00 X 2 day, # Solution 300 mL, 0 Refill(s) Acetaminoph Yes 1 tab, PO, Memoria en 325 MG / 8-18 Q6H, PRN l Hydrocodone 10:44: for pain, H ermann Bitartrate 00 X 14 day, 10 MG Oral # 90 tab, Tablet 0 [Hoolehua Refill(s) 10/325] Methocarbam Yes 500 mg = 1 Memoria ol 500 MG 8-18 tab, PO, l Oral Tablet 10:44: Q8H, PRN He rmann [Robaxin] 00 Spasms, X 10 day, # 30 tab, 0 Refill(s) {21 Yes See Memoria (Methylpred 09-23 Instructio l nisolone 4 10:44: ns, PO, Herm torin MG Oral 00 Take by Tablet mouth as [Medrol]) } directed Pack on label., [Medrol # 1 Pack, Dosepak] 0 Refill(s) Flomax No Notes: Memoria -18 (Same As: l 06:28: Flomax) "Do Not Crush" Cefazolin No Notes: Memori a -18 (Same As: l 03:00: Ancef, Kefzol) Cefazolin FOR IV SET ONLY MEDICATION WASTE Product Size: 1000 mg Product Wasted: _0__ mg Saline No Notes: Memoria Flush 0.9% 09-23 (Same as: l 02:00: BD Posiflush) Dexamethaso No Notes: Juan Alberto verónica ne 09-22 Give with l 23:00: food. (Same As: Decadron) Famotidine No Notes: Memor ia 20 MG Oral 09-22 (Same as: l Tablet 22:00: Pepcid) Docusate No Notes: Memoria 8-17 (Same as: l 22:00: Colace) (Do Not Crush) sennosides, No Notes: Juan Alberto verónica FCI 8-17 (Same as: l 22:00: Senokot) Clonidine No Notes: Memori a Hydrochlori -17 (Same As: l de 0.1 MG 22:00: Catapres) Her garcia Oral Tablet 00 Ondansetron No Notes: Juan Alberto verónica 8-17 (Same as: l 21:37: Zofran) MEDICATION WASTE Product Size: 4 mg Product Wasted: ___ mg Naloxone No Notes: Memoria 8-17 Same as l 21:37: Narcan Flumazenil No Notes: Memor ia 09-22 (Same as: l 21:37: Romazicon) Hydralazine No Notes: Juan Alberto verónica 8-17 (Same as: l 21:37: Apresoline ) Push over 5 minutes Hydromorpho No Notes: Juan Alberto verónica ne -17 Same as: l 21:37: Dilaudid Oxycodone No Notes: Memori a 8-17 (Same as: l 21:37: Roxicodone ) Saline No Notes: Memoria Flush 0.9% 09-22 (Same as: l 21:11: BD Posiflush) Robaxin No Notes: Memoria 8-17 (Same l 21:11: as:Robaxin ) Hydralazine No Notes: Juan Alberto verónica 8-17 (Same as: l 21:11: Apresoline ) Push over 5 minutes Labetalol No 10 mg, 2 Juan Alberto verónica 8-17 mL, Route: l 21:11: IVP, Drug form: INJ, Q15Min, Dosing Weight 93.182, kg, PRN Hypertensi on, Start date: 09/22/16 16:11:00 CDT, Duration: 30 day, Stop date: 10/22/16 16:10:00 CDT Ondansetron No Notes: Juan Alberto verónica 8-17 (Same as: l 21:11: Zofran) [place] 00 MEDICATION WASTE Product Size: 4 mg Product Wasted: ___ mg Acetaminoph No Notes: Do M emoria en 325 MG / 09-22 not exceed l Hydrocodone 21:11: 4gm/day of [place] Bitartrate 00 acetaminop 10 MG Oral hen. Tablet (Same as: [Hoolehua Hoolehua 10/325] 325/10) Dilaudid No Notes: Memoria 09-22 Same as: l 21:11: Dilaudid [place] Bisacodyl No Notes: Memori a 09-22 (Same As: l 21:11: Dulcolax, [place]-Lax) phenol No Notes: Memoria 09-22 Chlorasept l 21:11: ic [place] (Same as: Chlorasept ic, Sore Throat [place]) WASTE: F/P - Black; E - Municipal Trash Bin Melatonin 3 No Notes: Juan Alberto verónica MG Extended 09-22 (Same as: l Release 21:11: Melatonin) Herm torin Tablet 00 Benadryl No Notes: Memoria 09-22 (Same as: l 21:11: Benadryl) [place] ceFAZolin No Notes: Memori a 09-22 Same as: l 08:00: Ancef [place] rosuvastati Yes TK 1 T PO [place] n (CRESTOR) 3-22 QD Methodi 10 MG 00:00: st tablet 00 Vital Signs Vital Name Observation Time Observation Value Comments Source Systolic blood 2020 14:00:00 140 mm[Hg] [facility] Diastolic blood 2020 14:00:00 66 mm[Hg] [facility] Heart rate 2020 14:00:00 58 /min [facility] Respiratory rate 2020 14:00:00 18 /min [facility] Oxygen saturation in 2020 13:00:00 98 /min [facility] Arterial blood by Medical Ce nter Pulse oximetry Body temperature 2020 11:52:00 48 Alexia [facility] Body height 2020 08:39:00 180.3 cm [facility] Body weight 2020 08:39:00 85.276 kg [facility] BMI 2020 08:39:00 26.23 kg/m2 [facility] Heart Rate 2017-05-29 16:49:00 [facility] [place] Temperature Oral (F) 2017-05-29 16:49:00 97.8 F [facility] [place] Respitory Rate 2017-05-29 16:49:00 Memori al [place] Systolic (mm Hg) 2017-05-29 16:49:00 Juan Alberto rial [place] Diastolic (mm Hg) 2017-05-29 16:49:00 Mem orial [place] Respitory Rate 2017-05-29 13:20:00 Memori al [place] Heart Rate 2017-05-29 13:20:00 [facility] [place] Temperature Oral (F) 2017-05-29 13:20:00 97.4 F [facility] [place] Systolic (mm Hg) 2017-05-29 13:20:00 Juan Alberto rial [place] Diastolic (mm Hg) 2017-05-29 13:20:00 Mem orial [place] Respitory Rate 2017-05-29 08:34:00 Memori al [place] Temperature Oral (F) 2017-05-29 08:34:00 98 F [facility] [place] Heart Rate 2017-05-29 08:34:00 [facility] [place] Systolic (mm Hg) 2017-05-29 08:34:00 Juan Alberto rial [place] Diastolic (mm Hg) 2017-05-29 08:34:00 Mem orial [place] BMI Calculated 2017-05-27 08:46:00 Memori al [place] Height 2017-05-27 08:46:00 177.8 cm [facility] [place] Weight 2017-05-27 08:46:00 [facility] [place] Weight 2017-05-27 00:09:00 [facility] [place] Weight 2016-12-28 18:56:00 [facility] [place] BMI Calculated 2016-12-28 18:56:00 Memori al [place] Height 2016-12-28 18:56:00 177.8 cm [facility] [place] Heart Rate 2016-12-28 18:56:00 [facility] [place] Systolic (mm Hg) 2016-12-28 18:56:00 Juan Alberto rial [place] Diastolic (mm Hg) 2016-12-28 18:56:00 Mem orial [place] Temperature Oral (F) 2016-12-28 18:56:00 97.8 F [facility] [place] Heart Rate 2016-09-24 12:50:00 [facility] [place] Temperature Oral (F) 2016-09-24 12:50:00 97.5 F [facility] [place] Respitory Rate 2016-09-24 12:50:00 Memori al [place] Systolic (mm Hg) 2016-09-24 12:50:00 Juan Alberto rial [place] Diastolic (mm Hg) 2016-09-24 12:50:00 Mem orial [place] Heart Rate 2016-09-24 08:43:00 [facility] [place] Systolic (mm Hg) 2016-09-24 08:43:00 Juan Alberto rial [place] Diastolic (mm Hg) 2016-09-24 08:43:00 Mem orial [place] Respitory Rate 2016-09-24 08:43:00 Memori al [place] Temperature Oral (F) 2016-09-24 08:43:00 98.5 F [facility] [place] Temperature Oral (F) 2016-09-24 04:44:00 98.1 F [facility] [place] Systolic (mm Hg) 2016-09-24 04:44:00 Juan Alberto rial [place] Diastolic (mm Hg) 2016-09-24 04:44:00 Mem orial [place] Respitory Rate 2016-09-24 04:44:00 Memori al [place] Heart Rate 2016-09-24 04:44:00 [facility] [place] BMI Calculated 2016-09-22 15:39:00 Memori al [place] Weight 2016-09-22 15:39:00 [facility] [place] Height 2016-09-22 15:39:00 177.8 cm [facility] [place] Weight 2016-09-19 20:20:00 [facility] [place] BMI Calculated 2016-09-19 20:20:00 Memori al [place] Height 2016-09-19 20:20:00 177.8 cm [facility] [place] Procedures Procedure Date / Time Performing Clinician Source Performed POCT-ACT 2020 11:24:00 Colton Bolanos [facility] ECG 12-LEAD 2020 10:50:42 Vane Downs [facility] ANGIOGRAM,CORONARY 2020 10:04:00 Colton Bolanos [facility] CARDIAC CATH REPORT - 2020 00:00:00 Juan A Momin [facility] SARS-COV2/RT-PCR ([facility] & 2020-01-03 10:25:00 Colton Bolanos [facility] - REF LABS) [facility] POCT-GLUCOSE METER 2019-12-19 07:18:00 Oneil [facility] BASIC METABOLIC PANEL (7) 2019-12-19 04:49:00 Kalia Hagen [facility] MAGNESIUM 2019-12-19 04:49:[address] [facility] PHOSPHORUS 2019-12-19 04:49:[address] [facility] CBC (HEMOGRAM ONLY) 2019-12-19 04:49:00 Irvin Mills [facility] POCT-GLUCOSE METER 2019-12-18 21:00:00 Oneil [facility] POCT-GLUCOSE METER 2019-12-18 16:56:00 Oneil [facility] POCT-GLUCOSE METER 2019-12-18 11:16:00 Oneil [facility] ECG 12-LEAD 2019-12-18 08:29:14 Unknown, Hl7 Doctor [facility] POCT-GLUCOSE METER 2019-12-18 07:37:00 Oneil [facility] SARS-COV2/RT-PCR ([facility] & 2019-12-18 05:39:00 Oneil [facility] - REF LABS) [facility] BASIC METABOLIC PANEL (7) 2019-12-18 05:24:00 Kalia Hagen [facility] MAGNESIUM 2019-12-18 05:24:00 [facility] 2019-12-18 05:24:[address] [facility] CBC (HEMOGRAM ONLY) 2019-12-18 05:24:00 [facility] POCT-[facility]SE METER 2019-12-17 21:25:00 [facility] 2019-12-17 16:03:00 [facility] POCT-GLUCOSE METER 2019-12-17 11:59:00 [facility] POCT-GLUCOSE METER 2019-12-17 07:49:00 [facility] BASIC METABOLIC PANEL (7) 2019-12-17 05:11:00 Kalia Hagen [facility] MAGNESIUM 2019-12-17 05:11:[address] [facility] PHOSPHORUS 2019-12-17 05:11:00 [facility] ([facility] ONLY[facility] 2019-12-17 05:11:00 [facility] POCT-GLUCOSE METER 2019-12-16 21:16:00 [facility] POCT-GLUCOSE METER 2019-12-16 16:18:00 Costre [facility] POCT-GLUCOSE METER 2019-12-16 12:02:00 [facility] POCT-GLUCOSE METER 2019-12-16 07:39:00 [facility] BASIC METABOLIC PANEL (7) 2019-12-16 05:13:00 Kalia Hagen [facility] MAGNESIUM 2019-12-16 05:13:[address] [facility] PHOSPHORUS 2019-12-16 05:13:00 Ageedi, Waleed [facility] APTT 2019-12-16 05:13:00 Oneil [facility] CBC (HEMOGRAM ONLY) 2019-12-16 05:13:00 [facility] POCT-GLUCOSE METER 2019-12-15 21:20:00 Oneil [facility] APTT 2019-12-15 04:14:00 [facility]IC METABOLIC PANEL (7) 2019-12-15 04:10:00 Juan Lawson [facility] MAGNESIUM 2019-12-15 04:10:00 [facility] PHOS[facility]US 2019-12-15 04:10:00 Renny [facility] CBC (HEMOGRAM ONLY) 2019-12-15 04:09:00 Juan Lawson [facility] PREPARE RBC 2019-12-14 23:54:00 Oneil [facility] POCT-GLUCOSE METER 2019-12-14 22:34:00 Oneil [facility] APTT 2019-12-14 21:01:00 Efrain Barajas [facility] POCT-GLUCOSE METER 2019-12-14 18:05:00 [facility] 2019-12-14 14:42:00 [facility] BASIC METABOLIC PANEL (7) 2019-12-14 13:58:[address] [facility] MAGNESIUM 2019-12-14 13:58:00 Irvin Mills [facility] POCT-GLUCOSE METER 2019-12-14 13:47:00 [facility] POCT-GLUCOSE METER 2019-12-14 09:00:00 [facility] APTT 2019-12-14 07:52:00 Juan Lawson [facility] XR CHEST 1 VIEW 2019-12-14 07:50:00 Joaquina Tariq Irvin [facility] PORTABLE/BEDSIDE [facility] BLOOD GAS, ARTERIAL 2019-12-14 05:07:00 Xiao [facility] APTT 2019-12-14 05:07:00 [facility] CBC (HEMOGRAM ONLY) 2019-12-14 03:28:00 Juan Lawson [facility] BASIC METABOLIC PANEL (7) 2019-12-14 03:28:00 Juan Lawson [facility] MAGNESIUM 2019-12-14 03:28:00 [facility] PHOSPHORUS 2019-12-14 03:28:00 Renny [facility] POCT-GLUCOSE METER 2019-12-13 23:24:00 Delano Sierra [facility] XR CHEST 1 VIEW 2019-12-13 23:20:00 [facility] - PORTABLE/BEDSIDE [facility] BLOOD GAS, ARTERIAL 2019-12-13 23:12:00 [facility] CALCIUM, IONIZED 2019-12-13 23:12:00 [facility] CBC (HEMOGRAM ONLY) 2019-12-13 23:10:00 [facility] BASIC METABOLIC PANEL (7) 2019-12-13 23:10:00 [facility] APTT 2019-12-13 23:10:00 [facility] PROTHROMBIN TIME/INR 2019-12-13 23:10:[address] [facility] PHOSPHORUS 2019-12-13 23:10:00 [facility] MAGNESIUM 2019-12-13 23:10:00 Kalia Hagen [facility] POCT-ACT 2019-12-13 21:38:[address] [facility] POCT-ACT 2019-12-13 20:51:00 [facility] CALCIUM, IONIZED 2019-12-13 20:48:35 Javier [facility] BLOOD GAS, ARTERIAL 2019-12-13 20:48:35 Javier [facility] SODIUM NA-STAT LAB 2019-12-13 20:48:35 Javier [facility] POTASSIUM-STAT LAB 2019-12-13 20:48:35 Javier [facility] GLUCOSE-STAT LAB 2019-12-13 20:48:35 Javier [facility] HGB/HCT (H&H) - STAT LAB 2019-12-13 20:48:35 Javier [facility] POCT-ACT 2019-12-13 20:17:[address] [facility] TRANSFUSE LEUKO-REDUCED 2019-12-13 19:48:17 Javier [facility] - RED BLOOD CELLS [facility] TRANSFUSE LEUKO-REDUCED 2019-12-13 19:46:32 Javier [facility] - RED BLOOD CELLS [facility] POCT-ACT 2019-12-13 19:37:[address] [facility] CALCIUM, IONIZED 2019-12-13 19:31:54 Javier [facility] BLOOD GAS, ARTERIAL 2019-12-13 19:31:54 Javier [facility] SODIUM NA-STAT LAB 2019-12-13 19:31:54 Javier [facility] POTASSIUM-STAT LAB 2019-12-13 19:31:54 Javier [facility] GLUCOSE-STAT LAB 2019-12-13 19:31:54 [facility] (H&H) - STAT LAB 2019-12-13 19:31:54 John Herrera [facility] POCT-ACT 2019-12-13 18:54:00 Delano Sierra [facility] CALCIUM, IONIZED 2019-12-13 18:18:55 [facility] LACTIC ACID, ARTERIAL 2019-12-13 18:18:55 [facility] BLOOD GAS, ARTERIAL 2019-12-13 18:18:55 [facility] SODI[facility] NA-STAT LAB 2019-12-13 18:18:55 [facility] POT[facility]SIUM-STAT LAB 2019-12-13 18:18:55 [facility] GLUCOSE-STAT LAB 2019-12-13 18:18:55 [facility] HGB/HCT (H&H) - STAT LAB 2019-12-13 18:18:55 [facility] ANGIOGRAM-LOWER EXTREMITY 2019-12-13 17:10:00 [facility] THROMBECTOMY-LOWER 2019-12-13 17:10:00 [facility] HC ARTERIAL DOPPLER LEGS 2019-12-13 12:51:00 Irvin Mills CH I [facility] WINTER [facility] HC ARTERIAL(RAFIQ W 2019-12-13 12:51:00 Delano Sierra [facility] es - DOPPLER)ONLY [facility] URINE CULTURE 2019-12-13 11:33:00 Irvin Mills [facility] URINALYSIS W/ REFLEX 2019-12-13 11:33:00 Irvin Mills [facility] - URINE CULTURE [facility] BASIC METABOLIC PANEL (7) 2019-12-13 11:31:[address] [facility] MAGNESIUM 2019-12-13 11:31:00 [facility] PHOSPHORUS 2019-12-13 11:31:00 [facility] PROTHROMBIN TIME/INR 2019-12-13 11:31:00 [facility] APTT 2019-12-13 11:31:00 [facility] CBC W/PLT COUNT & AUTO 2019-12-13 11:31:00 [facility] DIFFERENTIAL [facility] XR CHEST 1 VIEW 2019-12-13 11:20:00 [facility] PORTABLE/BEDSIDE [facility] POCT-ACT 2019-12-13 10:38:[address] [facility] POCT-ACT 2019-12-13 09:24:00 [facility] POCT-ACT 2019-12-13 09:10:00 [facility] CALCIUM, IONIZED 2019-12-13 08:13:27 Isidoro Pierce [facility] BLOOD GAS, ARTERIAL 2019-12-13 08:13:27 Isidoro Pierce I [facility] SODIUM NA-STAT LAB 2019-12-13 08:13:27 Isidoro Pierce [facility] POTASSIUM-STAT LAB 2019-12-13 08:13:27 Isidoro Pierce [facility] GLUCOSE-STAT LAB 2019-12-13 08:13:27 Isidoro [facility] HGB/HCT (H&H) - STAT LAB 2019-12-13 08:13:27 Isidoro Pierce [facility] REPAIR,EVAR-ENDOVASCULAR 2019-12-13 07:03:00 Oneil [facility] AORTIC ANEURYSM [facility] BASIC METABOLIC PANEL (7) 2019-12-13 04:22:00 Kvng-Smart, [place] HEMOGLOBIN A1C 2019-12-13 04:22:00 Lo, Casey [facility] CBC W/PLT+MANUAL DIFF 2019-12-13 04:22:00 Kalia Hagen [facility] MAGNESIUM 2019-12-13 04:22:00 [facility] PHOSPHORUS 2019-12-13 04:22:00 Renny [facility] CBC WITH PLATELET COUNT + 2019-12-13 04:22:00 Kalia Hagen [facility] - MANUAL DIFF [facility] (CELLAVISION MANUAL DIFF) 2019-12-13 04:22:00 Kalia Hagen [facility] PREPARE RBC 2019-12-12 22:21:00 Oneil [facility] POCT-GLUCOSE METER 2019-12-12 21:26:00 Oneil [facility] PROTHROMBIN TIME/INR 2019-12-12 18:32:00 Kvng-Smart [facility] POCT-GLUCOSE METER 2019-12-12 16:40:00 Oneil [facility] BASIC METABOLIC PANEL (7) 2019-12-12 16:27:00 Kerry [facility] VASCULAR DIAGRAM -SCAN 2019-12-12 00:00:00 ProviderJuan A [facility] ANTIBODY IDENTIFICATION 2019-12-11 16:23:00 Kerry Casey [facility] HC CAROTID DOPPLER WINTER 2019-12-11 13:52:00 Kerry [facility] XR CHEST 2 VIEWS 2019-12-11 12:33:00 Kerry [facility] ECG 12-LEAD 2019-12-11 12:01:53 Unknown, Hl7 Doctor [facility] SARS-COV2/RT-PCR ([facility] & 2019-12-11 11:49:00 Oneil [facility] - REF LABS) [facility] BASIC METABOLIC PANEL (7) 2019-12-11 10:38:00 Lo, [facility] HC LAB HIV-1 AG W/HIV-1&2 2019-12-11 10:38:00 Lo, [facility] ALBUMIN 2019-12-11 10:38:00 Lo, [facility] ALKALINE PHOSPHATASE 2019-12-11 10:38:00 Lo, [facility] BILIRUBIN, ADULT TOTAL 2019-12-11 10:38:00 Lo, [facility] BILIRUBIN, DIRECT 2019-12-11 10:38:00 Lo, [facility] AST (SGOT) 2019-12-11 10:38:00 Lo, [facility] ALT (SGPT) 2019-12-11 10:38:00 Lo, [facility] PROTEIN, TOTAL 2019-12-11 10:38:00 Lo, [facility] PROTHROMBIN TIME/INR 2019-12-11 10:38:00 Lo, [facility] APTT 2019-12-11 10:38:00 Lo, [facility] RETICULOCYTE COUNT 2019-12-11 10:38:00 Lo, [facility] HEPATITIS B PANEL 2019-12-11 10:38:00 Lo, [facility] AMYLASE 2019-12-11 10:38:00 Lo, [facility] LIPASE 2019-12-11 10:38:00 Lo, [facility] HEPATITIS C ANTIBODY 2019-12-11 10:38:00 Lo, [facility] URINALYSIS W/ MICROSCOPIC 2019-12-11 10:38:00 Lo, [facility] LACTATE DEHYDROGENASE 2019-12-11 10:38:00 Lo, [facility] HEMOGLOBIN A1C 2019-12-11 10:38:00 David Osoriozach [facility] TYPE AND SCREEN, 2019-12-11 10:38:00 Lo, [facility] DIRECT AHG (GARTH)/DIRECT 2019-12-11 10:38:00 Lo, [facility] CBC W/PLT COUNT & AUTO 2019-12-11 10:38:00 Lo, [facility] (CELLAVISION MANUAL DIFF) 2019-12-11 10:38:00 Lo, [facility] SPIROMETRY 2019-11-21 10:30:00 Lo, [facility] CTA ABDOMEN & PELVIS 2019-11-05 08:01:00 Lo, [facility] CTA CHEST 2019-11-05 08:01:00 Lo, [facility] POCT-CREATININE 2019-11-05 07:25:00 Lo, [facility] Bladder irrigation, 2017-05-28 16:15:00 [facility] simple, lavage and/or instillation Bladder operation [facility] nn Drainage [facility] Lymph node operation [facility] Plan of Care Planned Activity Planned Date Details Comments Source Future Scheduled 2019-10-08 INFLUENZA VACCINE (#1) [facility] Test 00:00:00 [code = INFLUENZA Medical Ce nter VACCINE (#1)] Future Scheduled 2019-09-07 INFLUENZA VACCINE [place] [facility] 00:00:00 [code = INFLUENZA VACCINE] Future Scheduled 2010-12-[address] [facility] [facility] - Test 00:00:00 WELLNESS (YEAR 2 or Medical Center FIRST YEAR if no IPPE) [code = MEDICARE ANNUAL WELLNESS (YEAR 2 or FIRST YEAR if no IPPE)] Future Scheduled 2010 65+ PNEUMOCOCCAL [place] [facility] Test 00:00:00 VACCINE (1 of 1 - PPSV23) [code = 65+ PNEUMOCOCCAL VACCINE (1 of 1 - PPSV23)] Future Scheduled 2010 PNEUMOCOCCAL 65+ YRS [facility] - Test 00:00:00 (1 of 1 - Medical Center [id number] PCV13) [code = PNEUMOCOCCAL 65+ YRS (1 of 1 - IQCR14_Afzpsyl PCV13)] Future Scheduled 1995 COLONOSCOPY SCREENING Ho re[facility] Test 00:00:00 [code = COLONOSCOPY SCREENING] Future Scheduled 1995 SHINGLES VACCINES (#1) H jordan [facility] Test 00:00:00 [code = SHINGLES VACCINES (#1)] Future Scheduled [address] [facility] - Test 00:00:00 malignant neoplasm of Medica l Center colon (procedure) [code = 805409506] Encounters Start End Encounter Admission Attending Care Care Encounter Source Date/Time Date/Time Type Type Clinicians Facility Department ID 2019-12-26 2019-12-26 Office [place] Bolanos [id number] 11:13:47 11:28:47 Visit [place] AMBULATOR [id number] Riki Y [id number] 2018-10-16 2018-10-16 Orders Doctor BRYAN [id number] 00:00:00 00:00:00 Only Unassigned, AMADOR [id number] [facility] [id number] 2018-09-10 2018-09-10 Orders Doctor BRYAN [id number] 00:00:00 00:00:00 Only Unassigned, AMADOR [id number] [facility] [id number] 2017-09-06 2017-09-07 Outpatient MHMISCHER MHMISCHER [id number] 13:27:00 23:59:59 13 2017-05-26 2017-05-29 Outpatient ANNALISA Carslon MHSL [id number] 19:05:00 16:01:00 Chata Ting Luciana 2017-03-15 2017-03-16 Outpatient MHMISCHER MHMISCHER [id number] 16:21:00 23:59:59 12 2017-02-13 2017-02-13 Outpatient Tj Alicia MISCHER MISCHER [id number] 08:45:00 08:45:00 Hwan 2017-02-13 2017-02-13 Outpatient Tj Alicia MHMISCHER MHMISCHER [id number] 08:45:00 08:45:00 Hwan 2017-02-13 2017-02-13 Outpatient Tj Alicia MHMISCHER MHMISCHER [id number] 08:45:00 08:45:00 Hwan 2017-01-16 2017-01-17 Outpatient MHMISCHER MHMISCHER [id number] 11:51:00 23:59:59 11 2017-01-03 2017-01-04 Outpatient MHMISCHER MHMISCHER [id number] 11:44:00 23:59:59 10 2017-01-02 2017-01-03 Outpatient MHMISCHER MHMISCHER [id number] 15:19:00 23:59:59 09 2016-12-28 2016-12-28 Outpatient Tj Alicia MHMISCHER MHMISCHER [id number] 08:00:00 23:59:59 Hwan 2016-12-28 2016-12-28 Outpatient Azar [id number] 14:30:00 23:59:00 Rufina [id number] Ingrid [id number] 2016-12-26 2016-12-27 Outpatient MHMISCHER MHMISCHER [id number] 09:23:00 23:59:59 08 2016-12-23 2016-12-24 Outpatient MHMISCHER MHMISCHER [id number] 09:42:00 23:59:59 2016-09-22 2016-09-24 Out[id number] 16:11:00 11:45:00 Hwan 2016-08-11 2016-08-11 Outpatient Tj Alicia MHOIP MHOIP [id number] 16:55:00 23:59:00 Hwan 2016-07-20 2016-07-20 Outpatient Tj Alicia OIH MHOIH [id number] 10:41:00 23:59:00 Hwan 00 Results Test Description Test Time Test Results Result Source Comments Comments CARDIAC CATH Ordered by an unspecified [facility] - SCAN 3 provider. [facility] - 12:09:17 Medical Center ECG 12 lead 2019-12-10 Interface, External Ris [facility] 0 In - 2020 1:29 PM [facility] - 13:28:55 CSTVentricular Rate 51 Me dical BPMAtrial Rate 166 BPMQRS Center Duration 92 msQ-T Interval 524 msQTC Calculation(Bazett) 482 msP [place] 41 degreesR [place] -6 degreesT [place] 56 degreesSinus bradycardiaCannot rule out Anterior infarct , age undeterminedProlonged QTAbnormal ECG11 DEC 2019Sinus bradycardia replaced AVNRTST no longer depressed precordial leadsQT has shortenedConfirmed by MD MUSHTAQ, RADHA ([id number]) on 2020 1:28:53 PM POC ACTIVATED CLOTTING TIME 2020 11:45:00 Test Item Value Reference Range Interpretation Comme nts Activated Clotting Time (test 252 sec : 74-137 seconds, Baseline: TESTED AT code = 441) [address], [address]: Jewelsmith/Techni rigoberto ID = [id number] for GREGG, CLAU [facility][id number] 11:45:00 Test Item Value Reference Range Interpretation Comments ACTIVATED CLOTTING TIME 252 sec : 74 -137 seconds, (BEAKER) (test code = Baseli ne: TESTED AT 441) [address], [address]: Jewelsmith/Techni rigoberto ID = [id number] for CO NDE, CLAU SARS-CoV2/RT-PCR ([facility] & Ref Labs)2020-01-03 17:54:00 Test Item Value Reference Range Interpretation Comments SARS-COV2/RT-PCR Negative Not Detected, (test code = Negative, See 23430-5) external report for linked test SARS-COV-2 [facility] GENEVIEVE PERFORMING LAB (test code = 79100-1) AMRITA (test code = Negative result for this AMRITA) test determines that SARS-CoV-2 RNA was not present in the [...] of the Act. Fact Sheet for Healthcare Providers:https://www.Paltalk/sites/default/f odalys/product/documents/F act_Sheet_HC_Providers_L ltq_QVBB-GuQ-2.pdf Fact Sheet for Healthcare Patients:https://www.Authorea/sites/default/fi les/product/documents/Fa ct_Sheet_Patients_Lyra_S ARS-CoV-2.pdf Performing Laboratory:[facility] [place] [address] [facility] ([facility] REF LABS)2020-01-03 17:54:00 Test Item Value Reference Range Interpretation Comments SARS-COV2/RT-PCR (test Negative Not Detected, Negative, code = 4495119) See external report for linked test SARS-COV-[address] [facility] GEN[facility] (test code = 2718363) Negative result for this test determines that SARS-CoV-2 RNA was not present in the specimen above the Limit of Detection (LOD). However, Negative results do not preclude SARS-CoV-2 infection and should not be used as the sole basis for treatment or patient management decisions. Negative results mustbe combined with clinical observations, patient history, and epidemiological information. A false negative result may occur if a specimen is improperly collected, transported or handled. A false negative result should be considered if patient's recent exposures or clinical presentation indicate that COVID-19 (SARS-CoV-2) is likely and diagnostic tests for other causes of illness are negative. Re-testing should be considered in cases of suspected false negatives.The limit of detection for this assay is 800 copies/mL.This SARS CoV-2 test is a real-time RT-PCR test intended for the qualitative detection of nucleic acid from SARS-CoV-2 in a nasopharyngeal swab specimen collected from individuals susp ected of COVID-19 by their healthcare provider.This test has not been Food and Drug [...] is revoked under Section 564(g) of the Act.Fact Sheet for Healthcare Providers:https://www.Allurentidel.com/sites/default/files/product/documents/Fact_Shee r_PL_Iueqwxecf_Dvja_TYNZ-ZtA-3.pdfFact Sheet for Healthcare Patients:https://www.Grabit.com/sites/default/files/product/ documents/Ytmf_Jyrrv_Iktahshp_Vrdz_XYDG-UbA-6.pdfPerforming Laboratory:[facility], [place] [address]CAWIWQMN DIAGRAM -[id number] 10:07:56Ordered by an unspecified provider.[facility] Hospital[facility]OV[facility]-PCR ([facility]F [facility])2019-12-19 10:14:00 Test Item Value Reference Range Interpretation Comments SARS-COV2/RT-PCR (test Negative Not Detected, Negative, code = 0787066) See external report for linked test SARS-COV-[address] [facility] GENEVIEVE (test code = 5870416) Negative result for this test determines that SARS-CoV-2 RNA was not present in the specimen above the Limit of Detection (LOD). However, Negative results do not preclude SARS-CoV-2 infection and should not be used as the sole basis for treatment or patient management decisions. Negative results mustbe combined with clinical observations, patient history, and epidemiological information. A false negative result may occur if a specimen is improperly collected, transported or handled. A false negative result should be considered if patient's recent exposures or clinical presentation indicate that COVID-19 (SARS-CoV-2) is likely and diagnostic tests for other causes of illness are negative. Re-testing should be considered in cases of suspected false negatives.The limit of detection for this assay is 800 copies/mL.This SARS CoV-2 test is a real-time RT-PCR test intended for the qualitative detection of nucleic acid from SARS-CoV-2 in a nasopharyngeal swab specimen collected from individuals susp ected of COVID-19 by their healthcare provider.This test has not been Food and Drug [...] is revoked under Section 564(g) of the Act.Fact Sheet for Healthcare Providers:https://www.Allurentidel.com/sites/default/files/product/documents/Fact_Shee o_DN_Tzwqntolq_Pysj_AAPF-JiP-3.pdfFact Sheet for Healthcare Patients:https://www.Grabit.com/sites/default/files/product/ documents/Wvke_Uwzfo_Gkcbaisi_Bebz_FYBP-YdX-7.pdfPerforming Laboratory:[facility], [place] [address]XIG-Ykkizdt meter 2019-12-19 07:30:00 Test Item Value Reference Range Interpretation Comments POC-Glucose Meter (test 121 mg/dL 70-110 H : TE STED AT [facility] code = 1538) [address] [place], [address]: Jewelsmith/Techni rigoberto ID = [id number] for YESSI VERGARA Lab Interpretation (test Abnormal code = 14947-7) [facility] [id number] 07:30:00 Test Item Value Reference Range Interpretation Comments POC-GLUCOSE METER 121 mg/dL 70-110 H : TESTED A T [facility] 6720 (BEAKER) (test code = HAYDEN Rob [facility], 1538) [address]: Jewelsmith/Techni rigoberto ID = [id number] for YESSI BROWN Basic Metabolic [id number] 07:06:00 Test Item Value Reference Range Interpretation Comments Sodium (test code = 140 meq/L 262-235 1029-2) Potassium (test code = 3.7 meq/L 3.5-5.1 2823-3) Chloride (test code = 109 meq/L 98-107 H 2075-0) CO2 (test code = 25 meq/L 22-29 2028-9) BUN (test code = 20 mg/dL 7-21 3094-0) Creatinine (test code 1.29 mg/dL 0.57-1.25 H = 2160-0) Glucose (test code = 130 mg/dL 70-105 H 2345-7) Calcium (test code = 8.6 mg/dL 8.4-10.2 88805-9) EGFR (test code = 54 mL/min/1.73 [place] [address]-5) NOT ACCURATE CREATININE CLEARANCE IN PREDICTING GLOMERULAR FILTRATION RATE . ESTIMATED GFR I S NOT APPLICABLE FOR DIALYSIS PATIENTS. AMRITA (test code = AMRITA) Jewelsmith ID - MARIELA M Lab Interpretation Abnormal (test code = 37570-2) [facility] Test Item Value Reference Range Interpretation Comments Magnesium (test code = 2.1 mg/dL 1.6-2.6 11048-8) AMRITA (test code = AMRITA) Jewelsmith ID - MARIELA M Lab Interpretation (test Normal code = 57299-4) [facility] 07:06:00 Test Item Value Reference Range Interpretation Comments Phosphorus (test code = 2.9 mg/dL 2.3-4.7 2777-1) AMRITA (test code = AMRITA) Jewelsmith DEVIKA SIERRA M Lab Interpretation (test Normal code = 80911-3) [facility] [id number] 07:06:00 Test Item Value Reference Range Interpretation Comments SODIUM (BEAKER) 140 meq/L 136-145 (test code = 381) POTASSIUM (BEAKER) 3.7 meq/L 3.5-5.1 (test code = 379) CHLORIDE (BEAKER) 109 meq/L 98-107 H (test code = 382) CO2 (BEAKER) (test 25 meq/L 22-29 code = 355) BLOOD UREA NITROGEN 20 mg/dL 7-21 (BEAKER) (test code = 354) CREATININE (BEAKER) 1.29 mg/dL 0.57-1.25 H (test code = 358) GLUCOSE RANDOM 130 mg/dL 70-105 H (BEAKER) (test code = 652) CALCIUM (BEAKER) 8.6 mg/dL 8.4-10.2 (test code = 697) EGFR (BEAKER) (test 54 mL/min/1.73 ESTIMA SHANTA GFR IS code = 1092) sq m NOT ACCURATE CREATININE CLEARANCE IN PREDICTING GLOMERULAR FILTRATION RATE . ESTIMATED GFR I S NOT APPLICABLE FOR DIALYSIS PATIEN TS. Jewelsmith ID - MARIELA [id number] 07:06:00 Test Item Value Reference Range Interpretation Comments MAGNESIUM (BEAKER) (test code = 2.1 mg/dL 1.6-2.6 627) Jewelsmith ID - MARIELA [id number] 07:06:00 Test Item Value Reference Range Interpretation Comments PHOSPHORUS (BEAKER) (test code = 2.9 mg/dL 2.3-4.7 604) Jewelsmith ID - MARIELA MCBC (hemogram only)2019-12-19 05:34:00 Test Item Value Reference Range Interpretation Comments WBC (test code = 6690-2) 48.4 3.5- 10.5 K/L H RBC (test code = 789-8) 2.60 4.63- 6.08 M/L L MCHC (test code = 786-4) 30.9 32.3- 36.5 GM/DL L Hematocrit (test code = 4544-3) 27.2 % 40.1-51 L MCV (test code = 787-2) 104.6 fL 79-92.2 H MCH (test code = 785-6) 32.3 pg 25.7-32.2 H RDW (test code = 788-0) 16.7 % 11.6-14.4 H Platelets (test code = 777-3) 139 150- 450 K/CU MM L MPV (test code = 82012-0) 10.6 fL 9.4-12.4 nRBC (test code = 413) 0 0- 0 /100 WBC Lab Interpretation (test code = Abnormal 45305-6) [facility] (HEMOGRAM ONLY)2019-12-19 05:34:00 Test Item Value Reference Range Interpretation Comments WHITE BLOOD CELL COUNT (BEAKER) 48.4 K/ L 3.5-10.5 H (test code = 775) RED BLOOD CELL COUNT (BEAKER) 2.60 M/ L 4.63-6.08 L (test code = 761) HEMOGLOBIN (BEAKER) (test code = 8.4 GM/DL 13.7-17.5 L 410) HEMATOCRIT (BEAKER) (test code = 27.2 % 40.1-51.0 L 411) MEAN CORPUSCULAR VOLUME (BEAKER) 104.6 fL 79.0-92.2 H (test code = 753) MEAN CORPUSCULAR HEMOGLOBIN 32.3 pg 25.7-32.2 H (BEAKER) (test code = 751) MEAN CORPUSCULAR HEMOGLOBIN CONC 30.9 GM/DL 32.3-36.5 L (BEAKER) (test code = 752) RED CELL DISTRIBUTION WIDTH 16.7 % 11.6-14.4 H (BEAKER) (test code = 412) PLATELET COUNT (BEAKER) (test 139 K/CU MM 150-450 L code = 756) MEAN PLATELET VOLUME (BEAKER) 10.6 fL 9.4-12.4 (test code = 754) NUCLEATED RED BLOOD CELLS 0 /100 WBC 0-0 (BEAKER) (test code = 413) POCT-GLUCOSE [id number] 21:12:00 Test Item Value Reference Range Interpretation Comments POC-GLUCOSE METER 144 mg/dL 70-110 H : TESTED A T [facility] 6720 (BEAKER) (test code = [facility], 153) [address]88: Jewelsmith/Techni rigoberto ID = [id number] for CESAR FIORE POCT-GLUCOSE [id number] 17:08:00 Test Item Value Reference Range Interpretation Comments POC-GLUCOSE METER 104 mg/dL 70-110 : TESTED A T [facility] 6720 (BEAKER) (test code = [facility], 1538) 87366: Jewelsmith/Techni rigoberto ID = [id number] for PETEY RIVAS POCT-GLUCOSE [id number] 11:28:00 Test Item Value Reference Range Interpretation Comments POC-GLUCOSE METER 172 mg/dL 70-110 H : TESTED A T [facility] 6720 (BEAKER) (test code = [facility], 1538) 76287: Jewelsmith/Techni rigoberto ID = [id number] for PETEY RIVAS POCT-GLUCOSE [id number] 07:50:00 Test Item Value Reference Range Interpretation Comments POC-GLUCOSE METER 123 mg/dL 70-110 H : TESTED A T [facility] 6720 (BEAKER) (test code = [facility], 153) 623[address]: Jewelsmith/Techni rigoberto ID = [id number] for PETEY RIVAS BASIC METABOLIC [id number] 06:58:00 Test Item Value Reference Range Interpretation Comments SODIUM (BEAKER) 141 meq/L 136-145 (test code = 381) POTASSIUM (BEAKER) 3.8 meq/L 3.5-5.1 (test code = 379) CHLORIDE (BEAKER) 110 meq/L 98-107 H (test code = 382) CO2 (BEAKER) (test 24 meq/L 22-29 code = 355) BLOOD UREA NITROGEN 20 mg/dL 7-21 (BEAKER) (test code = 354) CREATININE (BEAKER) 1.32 mg/dL 0.57-1.25 H (test code = 358) GLUCOSE RANDOM 141 mg/dL 70-105 H (BEAKER) (test code = 652) CALCIUM (BEAKER) 8.5 mg/dL 8.4-10.2 (test code = 697) EGFR (BEAKER) (test 53 mL/min/1.73 ESTIMA SHANTA GFR IS code = 1092) sq m NOT ACCURATE CREATININE CLEARANCE IN PREDICTING GLOMERULAR FILTRATION RATE . ESTIMATED GFR I S NOT APPLICABLE FOR DIALYSIS PATIEN TS. Jewelsmith ID - [id number] 06:58:00 Test Item Value Reference Range Interpretation Comments MAGNESIUM (BEAKER) (test code = 2.1 mg/dL 1.6-2.6 627) Jewelsmith ID - [id number] 06:58:00 Test Item Value Reference Range Interpretation Comments PHOSPHORUS (BEAKER) (test code = 2.5 mg/dL 2.3-4.7 604) Jewelsmith ID - EDASICBC (HEMOGRAM ONLY)2019-12-18 06:28:00 Test Item Value Reference Range Interpretation Comments WHITE BLOOD CELL COUNT (BEAKER) 45.1 K/ L 3.5-10.5 H (test code = 775) RED BLOOD CELL COUNT (BEAKER) 2.64 M/ L 4.63-6.08 L (test code = 761) HEMOGLOBIN (BEAKER) (test code = 8.5 GM/DL 13.7-17.5 L 410) HEMATOCRIT (BEAKER) (test code = 27.2 % 40.1-51.0 L 411) MEAN CORPUSCULAR VOLUME (BEAKER) 103.0 fL 79.0-92.2 H (test code = 753) MEAN CORPUSCULAR HEMOGLOBIN 32.2 pg 25.7-32.2 (BEAKER) (test code = 751) MEAN CORPUSCULAR HEMOGLOBIN CONC 31.3 GM/DL 32.3-36.5 L (BEAKER) (test code = 752) RED CELL DISTRIBUTION WIDTH 16.8 % 11.6-14.4 H (BEAKER) (test code = 412) PLATELET COUNT (BEAKER) (test 129 K/CU MM 150-450 L code = 756) MEAN PLATELET VOLUME (BEAKER) 10.5 fL 9.4-12.4 (test code = 754) NUCLEATED RED BLOOD CELLS 0 /100 WBC 0-0 (BEAKER) (test code = 413) POCT-GLUCOSE [id number] 21:37:00 Test Item Value Reference Range Interpretation Comments POC-GLUCOSE METER 145 mg/dL 70-110 H : TESTED A T [facility] 6720 (BEAKER) (test code = [facility], 153) 40[address]: Jewelsmith/Techni rigoberto ID = [id number] for CESAR FIORE POCT-GLUCOSE [id number] 16:17:00 Test Item Value Reference Range Interpretation Comments POC-GLUCOSE METER 154 mg/dL 70-110 H : TESTED A T [facility] 6720 (BEAKER) (test code = [facility], 1538) 35684: Jewelsmith/Techni rigoberto ID = [id number] for MARIYA HERR, ZOYA POCT-GLUCOSE [id number] 12:11:00 Test Item Value Reference Range Interpretation Comments POC-GLUCOSE METER 150 mg/dL 70-110 H : TESTED A T [facility] 6720 (BEAKER) (test code = [facility], 153) 61192: Jewelsmith/Techni rigoberto ID = [id number] for MARIYA HERR, ZOYA POCT-GLUCOSE [id number] 08:07:00 Test Item Value Reference Range Interpretation Comments POC-GLUCOSE METER 132 mg/dL 70-110 H : TESTED A T [facility] 6720 (BEAKER) (test code = [facility], 153) 017[address]: Jewelsmith/Techni rigoberto ID = [id number] for MARIYA HERR, DIVINENECHEYENNE BASIC METABOLIC [id number] 06:38:00 Test Item Value Reference Range Interpretation Comments SODIUM (BEAKER) 141 meq/L 136-145 (test code = 381) POTASSIUM (BEAKER) 3.5 meq/L 3.5-5.1 (test code = 379) CHLORIDE (BEAKER) 112 meq/L 98-107 H (test code = 382) CO2 (BEAKER) (test 20 meq/L 22-29 L code = 355) BLOOD UREA NITROGEN 20 mg/dL 7-21 (BEAKER) (test code = 354) CREATININE (BEAKER) 1.25 mg/dL 0.57-1.25 (test code = 358) GLUCOSE RANDOM 133 mg/dL 70-105 H (BEAKER) (test code = 652) CALCIUM (BEAKER) 8.4 mg/dL 8.4-10.2 (test code = 697) EGFR (BEAKER) (test 56 mL/min/1.73 ESTIMA SHANTA GFR IS code = 1092) sq m NOT ACCURATE CREATININE CLEARANCE IN PREDICTING GLOMERULAR FILTRATION RATE . ESTIMATED GFR I S NOT APPLICABLE FOR DIALYSIS PATIEN TS. Jewelsmith ID - [id number] 06:38:00 Test Item Value Reference Range Interpretation Comments MAGNESIUM (BEAKER) (test code = 2.0 mg/dL 1.6-2.6 627) Jewelsmith ID - [id number] 06:38:00 Test Item Value Reference Range Interpretation Comments PHOSPHORUS (BEAKER) (test code = 1.9 mg/dL 2.3-4.7 L 604) Jewelsmith ID - EDASICBC (HEMOGRAM ONLY)2019-12-17 06:07:00 Test Item Value Reference Range Interpretation Comments WHITE BLOOD CELL COUNT (BEAKER) 33.8 K/ L 3.5-10.5 H (test code = 775) RED BLOOD CELL COUNT (BEAKER) 2.54 M/ L 4.63-6.08 L (test code = 761) HEMOGLOBIN (BEAKER) (test code = 8.2 GM/DL 13.7-17.5 L 410) HEMATOCRIT (BEAKER) (test code = 25.6 % 40.1-51.0 L 411) MEAN CORPUSCULAR VOLUME (BEAKER) 100.8 fL 79.0-92.2 H (test code = 753) MEAN CORPUSCULAR HEMOGLOBIN 32.3 pg 25.7-32.2 H (BEAKER) (test code = 751) MEAN CORPUSCULAR HEMOGLOBIN CONC 32.0 GM/DL 32.3-36.5 L (BEAKER) (test code = 752) RED CELL DISTRIBUTION WIDTH 16.9 % 11.6-14.4 H (BEAKER) (test code = 412) PLATELET COUNT (BEAKER) (test 113 K/CU MM 150-450 L code = 756) MEAN PLATELET VOLUME (BEAKER) 10.6 fL 9.4-12.4 (test code = 754) NUCLEATED RED BLOOD CELLS 0 /100 WBC 0-0 (BEAKER) (test code = 413) POCT-GLUCOSE [id number] 21:27:00 Test Item Value Reference Range Interpretation Comments POC-GLUCOSE METER 172 mg/dL 70-110 H : TESTED A T [facility] 6720 (BEAKER) (test code = [facility], 1538) 36541: Jewelsmith/Techni rigoberto ID = [id number] for ANGELINE MCDANIELS SE POCT-GLUCOSE [id number] 16:32:00 Test Item Value Reference Range Interpretation Comments POC-GLUCOSE METER 171 mg/dL 70-110 H : TESTED A T [facility] 6720 (BEAKER) (test code = [facility], 1538) 15212: Jewelsmith/Techni rigoberto ID = [id number] for [place] LLIAMS, TYNEKA POCT-GLUCOSE [id number] 12:16:00 Test Item Value Reference Range Interpretation Comments POC-GLUCOSE METER 157 mg/dL 70-110 H : TESTED A T [facility] 6720 (BEAKER) (test code = [facility], 1538) 60534: Jewelsmith/Techni rigoberto ID = [id number] for [place] LLIAMS, TYNEKA [id number] 11:13:00 Test Item Value Reference Range Interpretation Comments ACTIVATED CLOTTING TIME 120 sec : 74 -137 seconds, (BEAKER) (test code = Baseli ne: TESTED AT 441) [address], [facility] 30: Jewelsmith/Techni rigoberto ID = [id number] for PABLO ROGERS N [id number] 11:13:00 Test Item Value Reference Range Interpretation Comments ACTIVATED CLOTTING TIME 268 sec : 74 -137 seconds, (BEAKER) (test code = Baseli ne: TESTED AT 441) [address], [facility] 30: Jewelsmith/Techni rigoberto ID = [id number] for CA STRO, JUVE [id number] 11:13:00 Test Item Value Reference Range Interpretation Comments ACTIVATED CLOTTING TIME 230 sec : 74 -137 seconds, (BEAKER) (test code = Baseli ne: TESTED AT 441) [address], [facility] 30: Jewelsmith/Techni rigoberto ID = [id number] for CA STRO, JUVE Urine [id number] 09:17:00 Test Item Value Reference Range Interpretation Comments Result (test code = 6463-4) No growth [facility] [id number] 07:57:00 Test Item Value Reference Range Interpretation Comments POC-GLUCOSE METER 126 mg/dL 70-110 H : TESTED A T [facility] 6720 (BEAKER) (test code = [facility], 1538) [address]: Jewelsmith/Techni rigoberto ID = [id number] for ZOYA STOCKTON [id number] 06:40:00 Test Item Value Reference Range Interpretation Comments MAGNESIUM (BEAKER) (test code = 1.9 mg/dL 1.6-2.6 627) Jewelsmith ID - MARIELA [id number] 06:40:00 Test Item Value Reference Range Interpretation Comments PHOSPHORUS (BEAKER) (test code = 1.6 mg/dL 2.3-4.7 L 604) Jewelsmith ID - MARIELA MBASIC METABOLIC [id number] 06:40:00 Test Item Value Reference Range Interpretation Comments SODIUM (BEAKER) 139 meq/L 136-145 (test code = 381) POTASSIUM (BEAKER) 3.6 meq/L 3.5-5.1 (test code = 379) CHLORIDE (BEAKER) 111 meq/L 98-107 H (test code = 382) CO2 (BEAKER) (test 19 meq/L 22-29 L code = 355) BLOOD UREA NITROGEN 17 mg/dL 7-21 (BEAKER) (test code = 354) CREATININE (BEAKER) 1.22 mg/dL 0.57-1.25 (test code = 358) GLUCOSE RANDOM 131 mg/dL 70-105 H (BEAKER) (test code = 652) CALCIUM (BEAKER) 8.6 mg/dL 8.4-10.2 (test code = 697) EGFR (BEAKER) (test 58 mL/min/1.73 ESTIMA SHANTA GFR IS code = 1092) sq m NOT ACCURATE CREATININE CLEARANCE IN PREDICTING GLOMERULAR FILTRATION RATE . ESTIMATED GFR I S NOT APPLICABLE FOR DIALYSIS PATIEN TS. Jewelsmith ID - MARIELA MSpecimen slightly [id number] 06:06:00 Test Item Value Reference Range Interpretation Comments PTT (test code = 74330-0) 39.6 22.5- 36.0 seconds H Lab Interpretation (test code = Abnormal 20717-5) [facility] 06:06:00 Test Item Value Reference Range Interpretation Comments PARTIAL THROMBOPLASTIN TIME 39.6 seconds 22.5-36.0 H (BEAKER) (test code = 760) CBC (HEMOGRAM ONLY)2019-12-16 05:43:00 Test Item Value Reference Range Interpretation Comments WHITE BLOOD CELL COUNT (BEAKER) 33.6 K/ L 3.5-10.5 H (test code = 775) RED BLOOD CELL COUNT (BEAKER) 2.75 M/ L 4.63-6.08 L (test code = 761) HEMOGLOBIN (BEAKER) (test code = 8.9 GM/DL 13.7-17.5 L 410) HEMATOCRIT (BEAKER) (test code = 28.0 % 40.1-51.0 L 411) MEAN CORPUSCULAR VOLUME (BEAKER) 101.8 fL 79.0-92.2 H (test code = 753) MEAN CORPUSCULAR HEMOGLOBIN 32.4 pg 25.7-32.2 H (BEAKER) (test code = 751) MEAN CORPUSCULAR HEMOGLOBIN CONC 31.8 GM/DL 32.3-36.5 L (BEAKER) (test code = 752) RED CELL DISTRIBUTION WIDTH 17.2 % 11.6-14.4 H (BEAKER) (test code = 412) PLATELET COUNT (BEAKER) (test 115 K/CU MM 150-450 L code = 756) MEAN PLATELET VOLUME (BEAKER) 10.3 fL 9.4-12.4 (test code = 754) NUCLEATED RED BLOOD CELLS 0 /100 WBC 0-0 (BEAKER) (test code = 413) POCT-GLUCOSE [id number] 21:32:00 Test Item Value Reference Range Interpretation Comments POC-GLUCOSE METER 181 mg/dL 70-110 H : TESTED A T [facility] 6720 (BEAKER) (test code = [facility] [place], 1538) [address]: Jewelsmith/Techni rigoberto ID = [id number] for ANGELINE MCDANIELS SE [id number] 05:46:00 Test Item Value Reference Range Interpretation Comments MAGNESIUM (BEAKER) (test code = 2.1 mg/dL 1.6-2.6 627) Jewelsmith ID - MARIELA [id number] 05:46:00 Test Item Value Reference Range Interpretation Comments PHOSPHORUS (BEAKER) (test code = 2.2 mg/dL 2.3-4.7 L 604) Jewelsmith DEVIKA SIERRA MBASIC METABOLIC [id number] 05:46:00 Test Item Value Reference Range Interpretation Comments SODIUM (BEAKER) 139 meq/L 136-145 (test code = 381) POTASSIUM (BEAKER) 3.3 meq/L 3.5-5.1 L (test code = 379) CHLORIDE (BEAKER) 110 meq/L 98-107 H (test code = 382) CO2 (BEAKER) (test 19 meq/L 22-29 L code = 355) BLOOD UREA NITROGEN 18 mg/dL 7-21 (BEAKER) (test code = 354) CREATININE (BEAKER) 1.50 mg/dL 0.57-1.25 H (test code = 358) GLUCOSE RANDOM 148 mg/dL 70-105 H (BEAKER) (test code = 652) CALCIUM (BEAKER) 8.5 mg/dL 8.4-10.2 (test code = 697) EGFR (BEAKER) (test 46 mL/min/1.73 ESTIMA SHANTA GFR IS code = 1092) sq m NOT ACCURATE CREATININE CLEARANCE IN PREDICTING GLOMERULAR FILTRATION RATE . ESTIMATED GFR I S NOT APPLICABLE FOR DIALYSIS PATIEN TS. Jewelsmith DEVIKA SIERRA MSpecimen slightly [id number] 05:09:00 Test Item Value Reference Range Interpretation Comments PARTIAL THROMBOPLASTIN TIME 77.5 seconds 22.5-36.0 H (BEAKER) (test code = 760) CBC (HEMOGRAM ONLY)2019-12-15 05:02:00 Test Item Value Reference Range Interpretation Comments WHITE BLOOD CELL COUNT (BEAKER) 42.1 K/ L 3.5-10.5 H (test code = 775) RED BLOOD CELL COUNT (BEAKER) 2.66 M/ L 4.63-6.08 L (test code = 761) HEMOGLOBIN (BEAKER) (test code = 8.4 GM/DL 13.7-17.5 L 410) HEMATOCRIT (BEAKER) (test code = 26.6 % 40.1-51.0 L 411) MEAN CORPUSCULAR VOLUME (BEAKER) 100.0 fL 79.0-92.2 H (test code = 753) MEAN CORPUSCULAR HEMOGLOBIN 31.6 pg 25.7-32.2 (BEAKER) (test code = 751) MEAN CORPUSCULAR HEMOGLOBIN CONC 31.6 GM/DL 32.3-36.5 L (BEAKER) (test code = 752) RED CELL DISTRIBUTION WIDTH 17.7 % 11.6-14.4 H (BEAKER) (test code = 412) PLATELET COUNT (BEAKER) (test 113 K/CU MM 150-450 L code = 756) MEAN PLATELET VOLUME (BEAKER) 10.5 fL 9.4-12.4 (test code = 754) NUCLEATED RED BLOOD CELLS 0 /100 WBC 0-0 (BEAKER) (test code = 413) Prepare [id number] 23:54:00 Test Item Value Reference Range Interpretation Comments Unit ABO (test code = A Pos 8131464) UNIT NUMBER (test code = [id number] 934-0) Status (test code = 0447863) WORK IN PROGRESS Blood Bank Product (test RED BLOOD CELLS code = 2263) PRODUCT CODE (test code = Y4864T24 933-2) CROSSMATCH (test code = INCOMPATIBLE 2264) [facility] [id number] 22:46:00 Test Item Value Reference Range Interpretation Comments POC-GLUCOSE METER 169 mg/dL 70-110 H : TESTED A T [facility] 6720 (BEAKER) (test code = [facility], 1538) 21713: Jewelsmith/Techni rigoberto ID = [id number] for Braden manoharKoMyesha [id number] 21:21:00 Test Item Value Reference Range Interpretation Comments PARTIAL THROMBOPLASTIN TIME 77.7 seconds 22.5-36.0 H (BEAKER) (test code = 760) POCT-GLUCOSE [id number] 18:17:00 Test Item Value Reference Range Interpretation Comments POC-GLUCOSE METER 150 mg/dL 70-110 H : TESTED A T [facility] 6720 (BEAKER) (test code = [facility], 1538) 59932: Jewelsmith/Techni rigoberto ID = [id number] for Braden Shawna santillan [id number] 15:04:00 Test Item Value Reference Range Interpretation Comments PARTIAL THROMBOPLASTIN TIME 77.0 seconds 22.5-36.0 H (BEAKER) (test code = 760) [id number] 14:33:00 Test Item Value Reference Range Interpretation Comments MAGNESIUM (BEAKER) 2.3 mg/dL 1.6-2.6 Specimen slightly (test code = 627) hemolyzed Jewelsmith ID - HARJIT CBASIC METABOLIC [id number] 14:33:00 Test Item Value Reference Range Interpretation Comments SODIUM (BEAKER) 137 meq/L 136-145 (test code = 381) POTASSIUM (BEAKER) 4.7 meq/L 3.5-5.1 Specimen slightly (test code = 379) hemolyzed CHLORIDE (BEAKER) 110 meq/L 98-107 H (test code = 382) CO2 (BEAKER) (test 18 meq/L 22-29 L code = 355) BLOOD UREA NITROGEN 20 mg/dL 7-21 (BEAKER) (test code = 354) CREATININE (BEAKER) 1.67 mg/dL 0.57-1.25 H Specimen slightly (test code = 358) hemolyzed GLUCOSE RANDOM 262 mg/dL 70-105 H (BEAKER) (test code = 652) CALCIUM (BEAKER) 8.5 mg/dL 8.4-10.2 (test code = 697) EGFR (BEAKER) (test 40 mL/min/1.73 ESTIMA SHANTA GFR IS code = 1092) sq m NOT ACCURATE CREATININE CLEARANCE IN PREDICTING GLOMERULAR FILTRATION RATE . ESTIMATED GFR I S NOT APPLICABLE FOR DIALYSIS PATIEN TS. Jewelsmith ID - FEB CSpecimen moderately ictericPOCT-GLUCOSE [id number] 13:59:00 Test Item Value Reference Range Interpretation Comments POC-GLUCOSE METER 246 mg/dL 70-110 H : TESTED A T [facility] 6720 (BEAKER) (test code = [place], 1538) 13526: Jewelsmith/Techni rigoberto ID = [id number] for MARYIA BACASEY Arterial doppler legs [id number] 09:47:08Ejection [facility] ECHO HEARTLAB MKCKESSON CPACSRight Impression1. The common femoral, profunda femoral and popliteal arteries are calcifiedwith diffuse plaque and triphasic Doppler waveforms.2. There is >50% stenosis in the distal superficial femoral artery with avelocity of 193 cm/sec.3. Thereis >50% stenosis at the proximal posterior tibial artery with avelocity of 143 cm/sec.4. The distal posterior tibial artery is occluded.5. The peroneal artery is patent throughout.6. There is >50% stenosis in the proximal and mid anterior tibial arterywith velocities of 139 cm/sec and 239 cm/sec.Left Impression1.The common femoral, profunda femoral and superficial femoral arteries arecalcified with triphasic/biphasic Doppler waveforms throughout.2. There is >50% stenosis of the distal popliteal artery with a velocity of218 cm/sec.3. The posterior tibial, peroneal and anterior tibial arteries are occluded. Conclusions Summary Arterial duplex was performed on the bilateral lower extremities. There was calcification and diffuse plaque throughout bilaterally. The right common femoral, profunda femoral and popliteal arteries were patent. There was >50% stenosis in the right distal superficial femoral artery. There was >50% stenosis in the right proximal posterior tibial artery. Theright distal posterior tibial artery was occluded. There [...] Duplex Measurements Right Left + + + --------+ + + + + + + !Location [...] ! + + + + + + +-- + + + !Mid SFA ! !67.7 ! ! ! !46.2 ! ! ! + + + + + + + + + + !Dist SFA ! !193 ! ! ! !37.5 ! ! ! + + + + + + + + + + !Prox Popliteal ! !47.7 ! ! ! !17.4 ! ! ! + + +-------- + + + + + + + !Dist Popliteal ! !47.9 ! ! ! !218 ! ! ! + + + + + + + + + + !Prox ORTHOPEDIC DESIGNER ! !143 ! ! ! !0 ! ! ! + + + + + + + + + + !Mid ORTHOPEDIC DESIGNER ! !23.6 ! ! ! !0 ! ! ! + + + + + + + + + + !Dist ORTHOPEDIC DESIGNER ! !0 ! ! ! !0 ! ! ! + + + + + + + + + + !Prox JAEL ! !139 ! ! ! !0 ! ! ! + + + + + + + ------+ + + !Mid JAEL ! !239 ! ! ! !0 ! ! ! + + + + + + + + + + !Dist JAEL ! !35.4 ! ! ! !0 ! ! ! + + +----- + + + + + + + !Prox Peroneal ! !62.1 ! ! ! !0 ! ! ! + + + + + + + + + + !Mid Peroneal ! !46.6 ! ! ! !0 ! !! + + + + + + + + + + !Dist Peroneal ! !73.3 ! ! ! !0 ! ! ! + + + + + + + + + + Interface, External Ris In - 12/14/2019 9:47 AM [facility] - Lower Extremity Arterial Duplex Demographics Patient Name DUKE MARIN Date of Study 12/13/2019 DEBORAH III [id number] Age 74 Visit Number [id number] GenderMale Accession Number [id number] Date of 1945 Referring Oneil arguelles Room Number 2C20 Physician Boxing Trainer Cm Anderson RVS Interpreting Cyndi Pastor RVT Physician ProcedureType of Study: Extremities Arteries: Lower Extremities Arterial Duplex, ARTERIAL DOPPLER LEGS, BILATERAL. Indications for Study:Absent pulses.Patient Status:STAT.Study Location:Portable.Technical Quality:Adequatevisualization. - Results were reported to:Dr. Castillo and Dr. Mills @ 1300.Risk FactorsHistory of Disease+ + + --+!Diagnosis !Date !Comments !+ + ------+ +!Other ! !Pre-OP !+ + + +Imp ressionsRightImpression1. The common femoral, profunda femoral and popliteal arteries are calcifiedwith diffuse plaque and triphasic Doppler waveforms.2. There is >50% stenosis in the distal superficial femoral artery with avelocity of 193 cm/sec.3. There is >50% stenosis at the proximal posterior tibial artery with avelocity of 143 cm/sec.4. The distal posterior tibial artery is occluded.5. The peroneal artery is patent throughout.6. There is >50% stenosis in the proximal and mid anterior tibial arterywith velocities of 139 cm/sec and 239 cm/sec.Left Impression1.The common femoral, profunda femoral and superficial femoral arteries arecalcified with triphasic/biphasic Doppler waveforms throughout.2. There is >50% stenosis of the distal popliteal artery with a velocity of218 cm/sec.3. The posteriortibial, peroneal and anterior tibial arteries are occluded. Conclusions Summary Arterial duplex was performed on the bilateral lower extremities. There was calcification and diffuse plaque throughoutbilaterally. The right common femoral, profunda femoral and [...] in cm/s ; Diameters are measured in cmLE Duplex Measurements Right Left + + + + + + +------ + + + !Location ! !PSV !EDV [...] + + + + !Prox SFA ! !70.2! ! ! !38.9 ! ! ! + [...] ! + + + + + + +--- + + + !Dist Popliteal ! !47.9 ! ! ! !218 ! ! ! + + + + + + + + + + !Prox ORTHOPEDIC DESIGNER ! !143 ! ! ! !0 ! ! ! + + + + + + + + + + !Mid ORTHOPEDIC DESIGNER ! !23.6 ! ! ! !0 !! ! + + +--------- + + + + + + + !Dist ORTHOPEDIC DESIGNER ! !0 ! ! ! !0 ! [...] + + + + + + !Prox Tommyal ! !62.1 ! ! ! !0 ! ! ! + + + + + + + -----+ + + !Mid Peroneal ! !46.6 ! ! ! !0 ! ! ! + + + + + + + + + + !Dist Peroneal !!73.3 ! ! ! !0 ! ! ! + + +------ + + + + + + +[facility](An[facility]le/Brach[facility])2019-12-14 09:46:50Ejection FractionSSAINT [facility] MKCKESSON CPACSRight Impression1. The posterior tibial and dorsalis pedis arteries are patent withtriphasic and biphasic Doppler waveforms.2. The PT pressure is 140 mmHg with an RAFIQ of 0.93 and the DP pressure is140 mmHg with an RAFIQ of 0.93, within normal range.3. The great toe pressure is 62 mmHg with an abnormal TBI of 0.41.4. The digits have decreased flow by PPG waveforms.Left Impression1. The posterior tibial and dorsalis pedis arteries have no audible Dopplersignals.2. The digits have no flow by PPG waveforms. Conclusions Summary Arterial pressures and Doppler waveforms [...] cm/s ; Diameters are measured in cm Interface, External Ris In - 12/14/2019 9:47 AM CSTPV LAB - Lower Extremity Arterial Procedure Demographics Patient Name DUKE MARIN Date of Study 12/13/2019 DEBORAH III Age 74 Visit Number [id number] Gender Male Accession Number [id number] Date of 1945 Referring [place] s[place] Room Number 2C20 Physician Boxing Trainer Cm Anderson RVS Interpreting Cyndi Pastor RVT Physician ProcedureType of Study: Extremities Arteries: Lower Extremity Arterial Procedure, ARTERIAL (RAFIQ'S W/DOPPLER) ONLY. Indications for Study:Absent pulses.Patient Status:Routine.Study Location:Portable.Technical Quality:Technically Difficult.Risk FactorsHistory of Disease+ -------+ + +!Diagnosis !Date !Comments !+ + + -----+!Other ! !Pre-OP !+ --------+ + +ImpressionsRight Impression1. The posteriortibial and dorsalis pedis arteries are patent withtriphasic and biphasic Doppler waveforms.2. The PTpressure is 140 mmHg with an RAFIQ of 0.93 and the DP pressure is140 mmHg with an RAFIQ of 0.93, within normal range.3. The great toe pressure is 62 mmHg with an abnormal TBI of 0.41.4. The digits have decreased flow by PPG waveforms.Left Impression1. The posterior tibial and dorsalis pedis arteries have no audible Dopplersignals.2. The digits have no flow by PPG waveforms. Conclusions Summary Arterialpressures and Doppler waveforms were performed bilaterally. Adequate [...] waveforms. Signature Velocities are measured in cm/s ;Diameters are measured in cmCHI [facility] HospitalPOCT- GLUCOSE [id number] 09:12:00 Test Item Value Reference Range Interpretation Comments POC-GLUCOSE METER 161 mg/dL 70-110 H : TESTED A T [facility] 6720 (MAREK) (test code = HAYDEN Liane LEON [place], 1538) [id number]: Jewelsmith/Techni rigoberto ID = [id number] for JAMES OSBORNE RAD, CHEST, 1 VIEW, NON [id number] 08:16:00Reason for exam:->post-extubationShould this be performed at the bedside?->Yes [facility] : 1945 Sex: MFINAL REPORT Chest, one view. HISTORY: post-extubation COMPARISON: Radiograph from yesterday IMPRESSION: Interval extubation. Interval removal of the NG tube. The right IJ sheath is unchanged in position. There is a trace left pleural effusion. Mild left basilar subsegmental atelectasis. No acute bone abnormality. The cardiac silhouette is unchanged. A partially visualized stent overlies the upper abdomen. There is minimal lucency over the right upper lateral abdomen which is indeterminate but unchanged the prior examination. If the patient is having abdominal pain, consider a KUB. Signed: Ronni Almendarez Verified Date/Time: 12/14/2019 08:16:23 Reading Location: [facility] C013 CT Body Reading Room XR chest 1 view portable / [id number] 08:16:00 Interface, External Ris In - 12/14/2019 8:18 AM CSTFINAL REPORT Chest, one view. HISTORY: post-extubation COMPARISON: Radiograph from yesterday IMPRESSION: Interval extubation. Interval removal of the NG tube. The right IJ sheath is unchanged in position. There is a trace left pleural effusion. Mild left basilar subsegmental atelectasis. No acute bone abnormality. The cardiac silhouette is unchanged. A partially visualized stent overlies the upper abdomen. There is minimal lucency over the right upper lateral abdomen which is indeterminate but unchanged the prior examination. If the patient is having abdominal pain, consider a KUB. Signed: Ronni Almendarez Verified Date /Time: 12/14/2019 08:16:23 Reading Location: [facility] C[id number] 08:12:00 Test Item Value Reference Range Interpretation Comments PARTIAL THROMBOPLASTIN TIME 62.4 seconds 22.5-36.0 H (BEAKER) (test code = 760) [id number] 05:48:00 Test Item Value Reference Range Interpretation Comments PARTIAL THROMBOPLASTIN TIME 148.8 seconds 22.5-36.0 H (BEAKER) (test code = 760) Blood gas, [id number] 05:30:00 Test Item Value Reference Range Interpretation Comments pH, Arterial (test code = 2744-1) 7.39 7.35-7.45 pCO2, Arterial (test code = 36 35- 45 mm Hg 2018-09) pO2, Arterial (test code = 112 80- 90 mm Hg H 3-7) O2 Sat, Arterial (test code = 97.8 % 96-97 H 2708-6) HCO3, Arterial (test code = 21 mmol/L 21-29 1960-4) Base Excess, Arterial (test code -3.4 mmol/L -2-3 L = 1925-7) Patient Temperature (test code = 38.4 8310-5) FIO2 (test code = 1819) 60 Lab Interpretation (test code = Abnormal 18159-0) [facility], [id number] 05:30:00 Test Item Value Reference Range Interpretation Comments PH ARTERIAL (BEAKER) (test code = 7.39 7.35-7.45 383) PCO2 ARTERIAL (BEAKER) (test code 36 mm Hg 35-45 = 384) PO2 ARTERIAL (BEAKER) (test code 112 mm Hg 80-90 H = 385) O2 SATURATION ARTERIAL (BEAKER) 97.8 % 96.0-97.0 H (test code = 386) HCO3 ARTERIAL (BEAKER) (test code 21 mmol/L 21-29 = 388) BASE EXCESS ARTERIAL (BEAKER) -3.4 mmol/L -2.0-3.0 L (test code = 387) PATIENT TEMPERATURE (BEAKER) 38.4 (test code = 1818) FIO2 (BEAKER) (test code = 1819) 60.0 CBC (HEMOGRAM ONLY)2019-12-14 04:14:00 Test Item Value Reference Range Interpretation Comments WHITE BLOOD CELL COUNT (BEAKER) 60.1 K/ L 3.5-10.5 HH (test code = 775) RED BLOOD CELL COUNT (BEAKER) 2.78 M/ L 4.63-6.08 L (test code = 761) HEMOGLOBIN (BEAKER) (test code = 8.9 GM/DL 13.7-17.5 L 410) HEMATOCRIT (BEAKER) (test code = 27.6 % 40.1-51.0 L 411) MEAN CORPUSCULAR VOLUME (BEAKER) 99.3 fL 79.0-92.2 H (test code = 753) MEAN CORPUSCULAR HEMOGLOBIN 32.0 pg 25.7-32.2 (BEAKER) (test code = 751) MEAN CORPUSCULAR HEMOGLOBIN CONC 32.2 GM/DL 32.3-36.5 L (BEAKER) (test code = 752) RED CELL DISTRIBUTION WIDTH 17.2 % 11.6-14.4 H (BEAKER) (test code = 412) PLATELET COUNT (BEAKER) (test 134 K/CU MM 150-450 L code = 756) MEAN PLATELET VOLUME (BEAKER) 10.4 fL 9.4-12.4 (test code = 754) NUCLEATED RED BLOOD CELLS 0 /100 WBC 0-0 (BEAKER) (test code = 413) [id number] 04:00:00 Test Item Value Reference Range Interpretation Comments MAGNESIUM (BEAKER) (test code = 2.3 mg/dL 1.6-2.6 627) Jewelsmith ID - [id number] 04:00:00 Test Item Value Reference Range Interpretation Comments PHOSPHORUS (BEAKER) (test code = 3.4 mg/dL 2.3-4.7 604) Jewelsmith ID - EDASIBASIC METABOLIC [id number] 04:00:00 Test Item Value Reference Range Interpretation Comments SODIUM (BEAKER) 141 meq/L 136-145 (test code = 381) POTASSIUM (BEAKER) 4.7 meq/L 3.5-5.1 (test code = 379) CHLORIDE (BEAKER) 112 meq/L 98-107 H (test code = 382) CO2 (BEAKER) (test 18 meq/L 22-29 L code = 355) BLOOD UREA NITROGEN 20 mg/dL 7-21 (BEAKER) (test code = 354) CREATININE (BEAKER) 1.72 mg/dL 0.57-1.25 H (test code = 358) GLUCOSE RANDOM 173 mg/dL 70-105 H (BEAKER) (test code = 652) CALCIUM (BEAKER) 9.0 mg/dL 8.4-10.2 (test code = 697) EGFR (BEAKER) (test 39 mL/min/1.73 ESTIMA SHANTA GFR IS code = 1092) sq m NOT ACCURATE CREATININE CLEARANCE IN PREDICTING GLOMERULAR FILTRATION RATE . ESTIMATED GFR I S NOT APPLICABLE FOR DIALYSIS PATIEN TS. Jewelsmith ID - EDASISpecimen slightly ictericRAD, CHEST, 1 VIEW, NON DEPT 2019-12-14 00:36:00Reason for exam:->Post-opShould this be performed at the bedside?->YesJ[facility] : 1945 Sex: MFINAL REPORT RAD, CHEST, 1 VIEW, NON DEPT INDICATION: Post-op COMPARISON: Exam from 11 hours prior FINDINGS: Portable frontal view of the chest. IMPRESSION: Support Lines: The endotracheal tube terminates 5.0 cm cephalad to the baljit. Enteric tube terminates at the gastroesophageal junction. Recommend further advancement if stomach is desired location. A right transjugular sheath terminates in the upper SVC.Lungs and pleura: Left greater than right mild hazy interstitial opacities suggestive of interstitial edema. No consolidation or sizable effusion. No pneumothorax.Heart and mediastinum: Stable contours.Additional findings: None. Signed: Vamsi Foster [facility] Hospitalort Verified Date/Time: 12/14/2019 00:36:00 [id number] 23:58:00 Test Item Value Reference Range Interpretation Comments PARTIAL THROMBOPLASTIN TIME 42.6 seconds 22.5-36.0 H (BEAKER) (test code = 760) BASIC METABOLIC [id number] 23:58:00 Test Item Value Reference Range Interpretation Comments SODIUM (BEAKER) 138 meq/L 136-145 (test code = 381) POTASSIUM (BEAKER) 4.6 meq/L 3.5-5.1 (test code = 379) CHLORIDE (BEAKER) 110 meq/L 98-107 H (test code = 382) CO2 (BEAKER) (test 19 meq/L 22-29 L code = 355) BLOOD UREA NITROGEN 19 mg/dL 7-21 (BEAKER) (test code = 354) CREATININE (BEAKER) 1.62 mg/dL 0.57-1.25 H (test code = 358) GLUCOSE RANDOM 160 mg/dL 70-105 H (BEAKER) (test code = 652) CALCIUM (BEAKER) 8.6 mg/dL 8.4-10.2 (test code = 697) EGFR (BEAKER) (test 42 mL/min/1.73 ESTIMA SHANTA GFR IS code = 1092) sq m NOT ACCURATE CREATININE CLEARANCE IN PREDICTING GLOMERULAR FILTRATION RATE . ESTIMATED GFR I S NOT APPLICABLE FOR DIALYSIS PATIEN TS. Jewelsmith ID - [id number] 23:58:00 Test Item Value Reference Range Interpretation Comments MAGNESIUM (BEAKER) (test code = 2.6 mg/dL 1.6-2.6 627) Jewelsmith ID - [id number] 23:58:00 Test Item Value Reference Range Interpretation Comments PHOSPHORUS (BEAKER) (test code = 4.1 mg/dL 2.3-4.7 604) Jewelsmith ID - DBProthrombin time/[id number] 23:57:00 Test Item Value Reference Range Interpretation Comments Protime (test code = 17.6 11.9- 14.2 H 5902-2) seconds INR (test code = 1.49 <=5.90 6301-6) AMRITA (test code = AMRITA) Effective 07/04/2018: PT Reference Range ChangeNew: 11.9-14.2 Previous: 11.7-14.7 RECOMMENDED COUMADIN/WARFARIN INR THERAPY RANGESSTANDARD DOSE: 2.0-3.0 Includes: PROPHYLAXIS for venous thrombosis, systemic embolization; TREATMENT for venous thrombosis and/or pulmonary embolus.HIGH RISK: Target INR is 2.5-3.5 for patients wiht mechanical heart valves. Lab Interpretation Abnormal (test code = 13563-7) [facility] HospitalPROTHROMBIN TIME/[id number] 23:57:00 Test Item Value Reference Range Interpretation Comments PROTIME (BEAKER) (test code = 17.6 seconds 11.9-14.2 H 759) INR (BEAKER) (test code = 370) 1.49 <=5.90 Effective 07/04/2018: PT Reference Range ChangeNew: 11.9-14.2 Previous: 11.7- 14.7RECOMMENDED COUMADIN/WARFARIN INR THERAPY RANGESSTANDARD DOSE: 2.0-3.0 Includes: PROPHYLAXIS for venous thrombosis, systemic embolization; TREATMENT for venous thrombosis and/or pulmonary embolus.HIGH RISK: Target INR is2.5-3.5 for patients wiht mechanical heart valves.CBC (HEMOGRAM ONLY)2019-12-13 23:38:00 Test Item Value Reference Range Interpretation Comments WHITE BLOOD CELL COUNT (BEAKER) 66.8 K/ L 3.5-10.5 HH (test code = 775) RED BLOOD CELL COUNT (BEAKER) 2.78 M/ L 4.63-6.08 L (test code = 761) HEMOGLOBIN (BEAKER) (test code = 8.8 GM/DL 13.7-17.5 L 410) HEMATOCRIT (BEAKER) (test code = 28.2 % 40.1-51.0 L 411) MEAN CORPUSCULAR VOLUME (BEAKER) 101.4 fL 79.0-92.2 H (test code = 753) MEAN CORPUSCULAR HEMOGLOBIN 31.7 pg 25.7-32.2 (BEAKER) (test code = 751) MEAN CORPUSCULAR HEMOGLOBIN CONC 31.2 GM/DL 32.3-36.5 L (BEAKER) (test code = 752) RED CELL DISTRIBUTION WIDTH 16.9 % 11.6-14.4 H (BEAKER) (test code = 412) PLATELET COUNT (BEAKER) (test 146 K/CU MM 150-450 L code = 756) MEAN PLATELET VOLUME (BEAKER) 10.5 fL 9.4-12.4 (test code = 754) NUCLEATED RED BLOOD CELLS 0 /100 WBC 0-0 (BEAKER) (test code = 413) POCT-GLUCOSE [id number] 23:36:00 Test Item Value Reference Range Interpretation Comments POC-GLUCOSE METER 158 mg/dL 70-110 H : TESTED A T [facility] 6720 (BEAKER) (test code = HAYDEN LEPE, 1538) [id number]: Jewelsmith/Techni rigoberto ID = [id number] for LLA, HERON BLOOD GAS, [id number] 23:32:00 Test Item Value Reference Range Interpretation Comments PH ARTERIAL (BEAKER) (test code = 7.31 7.35-7.45 L 383) PCO2 ARTERIAL (BEAKER) (test code 43 mm Hg 35-45 = 384) PO2 ARTERIAL (BEAKER) (test code 124 mm Hg 80-90 H = 385) O2 SATURATION ARTERIAL (BEAKER) 98.2 % 96.0-97.0 H (test code = 386) HCO3 ARTERIAL (BEAKER) (test code 21 mmol/L 21-29 = 388) BASE EXCESS ARTERIAL (BEAKER) -4.7 mmol/L -2.0-3.0 L (test code = 387) PATIENT TEMPERATURE (BEAKER) 36.9 (test code = 1818) FIO2 (BEAKER) (test code = 1819) 60.0 Calcium, [id number] 23:30:00 Test Item Value Reference Range Interpretation Comments Calcium, Ion (test code = 1994-3) 1.20 mmol/L 1.12-1.27 pH, Blood (test code = 81026-5) 7.31 [facility] HospitalCALCIUM, [id number] 23:30:00 Test Item Value Reference Range Interpretation Comments CALCIUM IONIZED (BEAKER) (test 1.20 mmol/L 1.12-1.27 code = 698) PH, BLOOD (BEAKER) (test code = 7.31 1810) [id number] 21:55:00 Test Item Value Reference Range Interpretation Comments ACTIVATED CLOTTING TIME 125 sec : 74 -137 seconds, (BEAKER) (test code = Baseli ne: TESTED AT 441) [address], [facility] 30: Jewelsmith/Techni rigoberto ID = [id number] for LETHRIDGE, HERNANDEZ CRUZ [id number] 21:55:00 Test Item Value Reference Range Interpretation Comments ACTIVATED CLOTTING TIME 235 sec : 74 -137 seconds, (BEAKER) (test code = Baseli ne: TESTED AT 441) [address], [facility] 30: Jewelsmith/Techni rigoberto ID = [id number] for LETHRIDGE, HERNANDEZ CRUZ [id number] 21:55:00 Test Item Value Reference Range Interpretation Comments ACTIVATED CLOTTING TIME 241 sec : 74 -137 seconds, (BEAKER) (test code = Baseli ne: TESTED AT 441) [address], [address]70 30: Jewelsmith/Techni rigoberto ID = [id number] for MARY GIBBS [id number] 21:55:00 Test Item Value Reference Range Interpretation Comments ACTIVATED CLOTTING TIME 241 sec : 74 -137 seconds, (BEAKER) (test code = Baseli ne: TESTED AT 441) [facility] [address] [facility], 770 30: Jewelsmith/Techni rigoberto ID = [id number] for MARY GIBBS [id number] 21:55:00 Test Item Value Reference Range Interpretation Comments ACTIVATED CLOTTING TIME 246 sec : 74 -137 seconds, (BEAKER) (test code = Baseli ne: TESTED AT 441) [facility] 67[address] [facility], 770 30: Jewelsmith/Techni rigoberto ID = [id number] for CA STRO, JUVE HGB/HCT (H&H)-Stat [id number] 20:53:00 Test Item Value Reference Range Interpretation Comments Hemoglobin (test code = 786-4) 10.1 13.0- 16.8 GM/DL L Hematocrit (test code = 4544-3) 30.0 % 40-50 L Lab Interpretation (test code = Abnormal 79640-0) [facility] [id number] 20:53:00 Test Item Value Reference Range Interpretation Comments Glucose (test code = 2345-7) 138 mg/dL 70-110 H Lab Interpretation (test code = Abnormal 24558-4) [facility] [id number] 20:53:00 Test Item Value Reference Range Interpretation Comments Sodium (test code = 2951-2) 138 meq/L 136-145 Lab Interpretation (test code = Normal 10869-7) [facility] [id number] 20:53:00 Test Item Value Reference Range Interpretation Comments Potassium (test code = 2823-3) 4.0 meq/L 3.6-5.5 Lab Interpretation (test code = Normal 53486-1) [facility]OD[facility] NA-STAT [id number] 20:53:00 Test Item Value Reference Range Interpretation Comments SODIUM (BEAKER) (test code = 381) 138 meq/L 136-145 POTASSIUM-STAT [id number] 20:53:00 Test Item Value Reference Range Interpretation Comments POTASSIUM (BEAKER) (test code = 4.0 meq/L 3.6-5.5 379) CALCIUM, [id number] 20:53:00 Test Item Value Reference Range Interpretation Comments CALCIUM IONIZED (BEAKER) (test 1.16 mmol/L 1.12-1.27 code = 698) PH, BLOOD (BEAKER) (test code = 7.34 1810) BLOOD GAS, [id number] 20:53:00 Test Item Value Reference Range Interpretation Comments PH ARTERIAL (BEAKER) (test code = 7.34 7.35-7.45 L 383) PCO2 ARTERIAL (BEAKER) (test code 40 mm Hg 35-45 = 384) PO2 ARTERIAL (BEAKER) (test code 87 mm Hg 80-90 = 385) O2 SATURATION ARTERIAL (BEAKER) 96.2 % 96.0-97.0 (test code = 386) HCO3 ARTERIAL (BEAKER) (test code 21 mmol/L 21-29 = 388) BASE EXCESS ARTERIAL (BEAKER) -4.4 mmol/L -2.0-3.0 L (test code = 387) PATIENT TEMPERATURE (BEAKER) 37.0 (test code = 1818) FIO2 (BEAKER) (test code = 1819) 60.0 GLUCOSE-STAT [id number] 20:53:00 Test Item Value Reference Range Interpretation Comments GLUCOSE RANDOM (BEAKER) (test code 138 mg/dL 70-110 H = 652) HGB/HCT (H&H) - STAT [id number] 20:53:00 Test Item Value Reference Range Interpretation Comments HEMOGLOBIN (BEAKER) (test code = 10.1 GM/DL 13.0-16.8 L 410) HEMATOCRIT (BEAKER) (test code = 30.0 % 40.0-50.0 L 411) CALCIUM, [id number] 19:44:00 Test Item Value Reference Range Interpretation Comments CALCIUM IONIZED (BEAKER) (test 1.20 mmol/L 1.12-1.27 code = 698) PH, BLOOD (BEAKER) (test code = 7.36 1810) SODIUM NA-STAT [id number] 19:43:00 Test Item Value Reference Range Interpretation Comments SODIUM (BEAKER) (test code = 381) 138 meq/L 136-145 POTASSIUM-STAT [id number] 19:43:00 Test Item Value Reference Range Interpretation Comments POTASSIUM (BEAKER) (test code = 3.6 meq/L 3.6-5.5 379) BLOOD GAS, [id number] 19:43:00 Test Item Value Reference Range Interpretation Comments PH ARTERIAL (BEAKER) (test code = 7.35 7.35-7.45 383) PCO2 ARTERIAL (BEAKER) (test code 40 mm Hg 35-45 = 384) PO2 ARTERIAL (BEAKER) (test code 116 mm Hg 80-90 H = 385) O2 SATURATION ARTERIAL (BEAKER) 98.0 % 96.0-97.0 H (test code = 386) HCO3 ARTERIAL (BEAKER) (test code 21 mmol/L 21-29 = 388) BASE EXCESS ARTERIAL (BEAKER) -4.0 mmol/L -2.0-3.0 L (test code = 387) PATIENT TEMPERATURE (BEAKER) 37.5 (test code = 1818) FIO2 (BEAKER) (test code = 1819) 60.0 GLUCOSE-STAT [id number] 19:43:00 Test Item Value Reference Range Interpretation Comments GLUCOSE RANDOM (BEAKER) (test code 125 mg/dL 70-110 H = 652) HGB/HCT (H&H) - STAT [id number] 19:43:00 Test Item Value Reference Range Interpretation Comments HEMOGLOBIN (BEAKER) (test code = 6.4 GM/DL 13.0-16.8 L 410) HEMATOCRIT (BEAKER) (test code = 19.0 % 40.0-50.0 L 411) Lactic Acid, [id number] 18:50:00 Test Item Value Reference Range Interpretation Comments Lactate, Art (test code = 0.7 mmol/L 0.5-2.2 1054) AMRITA (test code = AMRITA) Jewelsmith ID - BS Lab Interpretation (test Normal code = 74573-4) [facility] HospitalLACTIC ACID, [id number] 18:50:00 Test Item Value Reference Range Interpretation Comments LACTATE BLOOD ARTERIAL (2) 0.7 mmol/L 0.5-2.2 (BEAKER) (test code = 2874) Jewelsmith ID - BSCALCIUM, [id number] 18:29:00 Test Item Value Reference Range Interpretation Comments CALCIUM IONIZED (BEAKER) (test 1.07 mmol/L 1.12-1.27 L code = 698) PH, BLOOD (BEAKER) (test code = 7.31 1810) BLOOD GAS, [id number] 18:29:00 Test Item Value Reference Range Interpretation Comments PH ARTERIAL (BEAKER) (test code = 7.31 7.35-7.45 L 383) PCO2 ARTERIAL (BEAKER) (test code 45 mm Hg 35-45 = 384) PO2 ARTERIAL (BEAKER) (test code 157 mm Hg 80-90 H = 385) O2 SATURATION ARTERIAL (BEAKER) 98.8 % 96.0-97.0 H (test code = 386) HCO3 ARTERIAL (BEAKER) (test code 22 mmol/L 21-29 = 388) BASE EXCESS ARTERIAL (BEAKER) -4.0 mmol/L -2.0-3.0 L (test code = 387) PATIENT TEMPERATURE (BEAKER) 38.0 (test code = 1818) FIO2 (BEAKER) (test code = 1819) 68.0 POTASSIUM-STAT [id number] 18:29:00 Test Item Value Reference Range Interpretation Comments POTASSIUM (BEAKER) (test code = 3.4 meq/L 3.6-5.5 L 379) GLUCOSE-STAT [id number] 18:29:00 Test Item Value Reference Range Interpretation Comments GLUCOSE RANDOM (BEAKER) (test code 138 mg/dL 70-110 H = 652) HGB/HCT (H&H) - STAT [id number] 18:29:00 Test Item Value Reference Range Interpretation Comments HEMOGLOBIN (BEAKER) (test code = 8.9 GM/DL 13.0-16.8 L 410) HEMATOCRIT (BEAKER) (test code = 26.0 % 40.0-50.0 L 411) SODIUM NA-STAT [id number] 18:28:00 Test Item Value Reference Range Interpretation Comments SODIUM (BEAKER) (test code = 381) 138 meq/L 136-145 Manual [id number] 14:30:00 Test Item Value Reference Range Interpretation Comments % Neutros (test code = 4 % 0766) % Lymphs (test code = 92 % 2817) % Eos (test code = 2819) 2 % % Metamyelo (test code = 1 % 0-0 H 2821) % Atypical Lymphs (test 1 % 0-0 H code = 2829) # Neutros (test code = 2.59 K/ul 1.78-5.38 2830) # Lymphs (test code = 59.62 K/ul 1.32-3.57 H 2831) # Eos (test code = 2834) 1.30 K/uL 0.04-0.54 H # Metamyelo (test code = 0.65 K/uL 0-0 H 2836) # Atypical Lymphs (test 0.65 K/uL 0-0 H code = 2858) Total Counted (test code = 100 1351) RBC Morphology (test code Normal = 762) WBC Morphology (test code Normal = 487) Platelet Morphology (test Normal code = 486) AMRITA (test code = AMRITA) Jewelsmith ID - [id number] Lab Interpretation (test Abnormal code = 09568-9) [facility] with platelet count + manual [id number] 14:30:00 Test Item Value Reference Range Interpretation Comments WBC (test code = 6690-2) 64.8 3.5- 10.5 K/L HH RBC (test code = 789-8) 2.93 4.63- 6.08 M/L L MCHC (test code = 786-4) 31.7 32.3- 36.5 GM/DL L Hematocrit (test code = 4544-3) 28.7 % 40.1-51 L MCV (test code = 787-2) 98.0 fL 79-92.2 H MCH (test code = 785-6) 31.1 pg 25.7-32.2 RDW (test code = 788-0) 17.4 % 11.6-14.4 H Platelets (test code = 777-3) 172 150- 450 K/CU MM MPV (test code = 10199-7) 10.1 fL 9.4-12.4 nRBC (test code = 413) 0 0- 0 /100 WBC Lab Interpretation (test code = Abnormal 15315-3) [facility] WITH PLATELET COUNT + MANUAL [id number] 14:30:00 Test Item Value Reference Range Interpretation Comments WHITE BLOOD CELL COUNT (BEAKER) 64.8 K/ L 3.5-10.5 HH (test code = 775) RED BLOOD CELL COUNT (BEAKER) 2.93 M/ L 4.63-6.08 L (test code = 761) HEMOGLOBIN (BEAKER) (test code = 9.1 GM/DL 13.7-17.5 L 410) HEMATOCRIT (BEAKER) (test code = 28.7 % 40.1-51.0 L 411) MEAN CORPUSCULAR VOLUME (BEAKER) 98.0 fL 79.0-92.2 H (test code = 753) MEAN CORPUSCULAR HEMOGLOBIN 31.1 pg 25.7-32.2 (BEAKER) (test code = 751) MEAN CORPUSCULAR HEMOGLOBIN CONC 31.7 GM/DL 32.3-36.5 L (BEAKER) (test code = 752) RED CELL DISTRIBUTION WIDTH 17.4 % 11.6-14.4 H (BEAKER) (test code = 412) PLATELET COUNT (BEAKER) (test 172 K/CU MM 150-450 code = 756) MEAN PLATELET VOLUME (BEAKER) 10.1 fL 9.4-12.4 (test code = 754) NUCLEATED RED BLOOD CELLS 0 /100 WBC 0-0 (BEAKER) (test code = 413) (CELLAVISION MANUAL DIFF)2019-12-13 14:30:00 Test Item Value Reference Range Interpretation Comments NEUTROPHILS - REL 4 % (CELLAVISION)(BEAKER) (test code = 2816) LYMPHOCYTES - REL 92 % (CELLAVISION)(BEAKER) (test code = 2817) EOSINOPHILS - REL 2 % (CELLAVISION)(BEAKER) (test code = 2819) METAMYELOCYTES - REL 1 % 0-0 H (CELLAVISION)(BEAKER) (test code = 2821) ATYPICAL LYMPHOCYTES - REL 1 % 0-0 H (CELLAVISION)(BEAKER) (test code = 2829) NEUTROPHILS - ABS 2.59 K/ul 1.78-5.38 (CELLAVISION)(BEAKER) (test code = 2830) LYMPHOCYTES - ABS 59.62 K/ul 1.32-3.57 H (CELLAVISION)(BEAKER) (test code = 2831) EOSINOPHILS - ABS 1.30 K/uL 0.04-0.54 H (CELLAVISION)(BEAKER) (test code = 2834) METAMYELOCYTES - ABS 0.65 K/uL 0.00-0.00 H (CELLAVISION)(BEAKER) (test code = 2836) ATYPICAL LYMPHOCYTES - ABS 0.65 K/uL 0.00-0.00 H (CELLAVISION)(BEAKER) (test code = 2858) TOTAL COUNTED (BEAKER) (test code 100 = 1351) RBC MORPHOLOGY (BEAKER) (test code Normal = 762) WBC MORPHOLOGY (BEAKER) (test code Normal = 487) PLT MORPHOLOGY (BEAKER) (test code Normal = 486) Jewelsmith ID - [id number] with platelet count + automated [id number] 13:53:00 Test Item Value Reference Range Interpretation Comments WBC (test code = 6690-2) 67.7 3.5- 10.5 K/L HH RBC (test code = 789-8) 2.72 4.63- 6.08 M/L L MCHC (test code = 786-4) 32.1 32.3- 36.5 GM/DL L Hematocrit (test code = 4544-3) 26.8 % 40.1-51 L MCV (test code = 787-2) 98.5 fL 79-92.2 H MCH (test code = 785-6) 31.6 pg 25.7-32.2 RDW (test code = 788-0) 17.5 % 11.6-14.4 H Platelets (test code = 777-3) 155 150- 450 K/CU MM MPV (test code = 46754-7) 10.4 fL 9.4-12.4 nRBC (test code = 413) 0 0- 0 /100 WBC Lab Interpretation (test code = Abnormal 58427-6) [facility] [id number] 13:53:00 Test Item Value Reference Range Interpretation Comments WHITE BLOOD CELL COUNT (BEAKER) 67.7 K/ L 3.5-10.5 HH (test code = 775) RED BLOOD CELL COUNT (BEAKER) 2.72 M/ L 4.63-6.08 L (test code = 761) HEMOGLOBIN (BEAKER) (test code = 8.6 GM/DL 13.7-17.5 L 410) HEMATOCRIT (BEAKER) (test code = 26.8 % 40.1-51.0 L 411) MEAN CORPUSCULAR VOLUME (BEAKER) 98.5 fL 79.0-92.2 H (test code = 753) MEAN CORPUSCULAR HEMOGLOBIN 31.6 pg 25.7-32.2 (BEAKER) (test code = 751) MEAN CORPUSCULAR HEMOGLOBIN CONC 32.1 GM/DL 32.3-36.5 L (BEAKER) (test code = 752) RED CELL DISTRIBUTION WIDTH 17.5 % 11.6-14.4 H (BEAKER) (test code = 412) PLATELET COUNT (BEAKER) (test 155 K/CU MM 150-450 code = 756) MEAN PLATELET VOLUME (BEAKER) 10.4 fL 9.4-12.4 (test code = 754) NUCLEATED RED BLOOD CELLS 0 /100 WBC 0-0 (BEAKER) (test code = 413) BASIC METABOLIC [id number] 12:20:00 Test Item Value Reference Range Interpretation Comments SODIUM (BEAKER) 139 meq/L 136-145 (test code = 381) POTASSIUM (BEAKER) 4.2 meq/L 3.5-5.1 (test code = 379) CHLORIDE (BEAKER) 109 meq/L 98-107 H (test code = 382) CO2 (BEAKER) (test 23 meq/L 22-29 code = 355) BLOOD UREA NITROGEN 23 mg/dL 7-21 H (BEAKER) (test code = 354) CREATININE (BEAKER) 1.60 mg/dL 0.57-1.25 H (test code = 358) GLUCOSE RANDOM 146 mg/dL 70-105 H (BEAKER) (test code = 652) CALCIUM (BEAKER) 8.2 mg/dL 8.4-10.2 L (test code = 697) EGFR (BEAKER) (test 42 mL/min/1.73 ESTIMA SHANTA GFR IS code = 1092) sq m NOT ACCURATE CREATININE CLEARANCE IN PREDICTING GLOMERULAR FILTRATION RATE . ESTIMATED GFR I S NOT APPLICABLE FOR DIALYSIS PATIEN TS. Jewelsmith ID - TI [id number] 12:20:00 Test Item Value Reference Range Interpretation Comments MAGNESIUM (BEAKER) (test code = 1.9 mg/dL 1.6-2.6 627) Jewelsmith ID - TI [id number] 12:20:00 Test Item Value Reference Range Interpretation Comments PHOSPHORUS (BEAKER) (test code = 3.8 mg/dL 2.3-4.7 604) Jewelsmith ID - TI [id number] 12:02:00 Test Item Value Reference Range Interpretation Comments PARTIAL THROMBOPLASTIN TIME 36.1 seconds 22.5-36.0 H (BEAKER) (test code = 760) PROTHROMBIN TIME/[id number] 12:01:00 Test Item Value Reference Range Interpretation Comments PROTIME (BEAKER) (test code = 16.8 seconds 11.9-14.2 H 759) INR (BEAKER) (test code = 370) 1.40 <=5.90 Effective 07/04/2018: PT Reference Range ChangeNew: 11.9-14.2 Previous: 11.7- 14.7RECOMMENDED COUMADIN/WARFARIN INR THERAPY RANGESSTANDARD DOSE: 2.0-3.0 Includes: PROPHYLAXIS for venous thrombosis, systemic embolization; TREATMENT for venous thrombosis and/or pulmonary embolus.HIGH RISK: Target INR is2.5-3.5 for patients wiht mechanical heart valves.Urinalysis w/Microscopic + Reflex to [id number] 11:56:00 Test Item Value Reference Range Interpretation Comments Color, UA (test code = Light Yellow 5778-6) Clarity, UA (test code = Cloudy 5767-9) Specific [place], UA (test 1.036 1.001-1.035 H code = 5811-5) pH, UA (test code = 6.0 5.0-8.0 5803-2) Protein, UA (test code = 30 mg/dL Negative A 75423-4) Glucose, UA (test code = Negative Negative 365) Ketones, UA (test code = Negative Negative 9354-8) Bilirubin, UA (test code = Negative Negative 04341-7) Blood, UA (test code = Small Negative A 42217-0) Nitrite, UA (test code = Negative Negative 5802-4) Leukocytes, UA (test code Large Negative A = 5799-2) Urobilinogen, UA (test 0.2 mg/dL 0.2-1 code = 95015-3) RBC, UA (test code = 18 /HPF 35037-6) WBC, UA (test code = 769 /HPF 5821-4) Bacteria, UA (test code = Rare 92800-8) Specimen Source (test code = 2795) AMRITA (test code = AMRITA) Jewelsmith ID - [auto]Jewelsmith ID - tech Lab Interpretation (test Abnormal code = 29643-9) [facility] UR[facility] [id number] 11:56:00 Test Item Value Reference Range Interpretation Comments COLOR (BEAKER) (test code = 470) Light Yellow CLARITY (BEAKER) (test code = Cloudy 469) SPECIFIC GRAVITY UA (BEAKER) 1.036 1.001-1.035 H (test code = 468) PH UA (BEAKER) (test code = 467) 6.0 5.0-8.0 PROTEIN UA (BEAKER) (test code = 30 mg/dL Negative A 464) GLUCOSE UA (BEAKER) (test code = Negative Negative 365) KETONES UA (BEAKER) (test code = Negative Negative 371) BILIRUBIN UA (BEAKER) (test code Negative Negative = 462) BLOOD UA (BEAKER) (test code = Small Negative A 461) NITRITE UA (BEAKER) (test code = Negative Negative 465) LEUKOCYTE ESTERASE UA (BEAKER) Large Negative A (test code = 466) UROBILINOGEN UA (BEAKER) (test 0.2 mg/dL 0.2-1.0 code = 463) RBC UA (BEAKER) (test code = 18 /HPF 519) WBC UA (BEAKER) (test code = 769 /HPF 520) BACTERIA (BEAKER) (test code = Rare 517) SOURCE(BEAKER) (test code = 2795) Jewelsmith ID - [auto]Jewelsmith ID - techRAD, CHEST, 1 VIEW, NON [id number] 11:28:00Reason for exam:->Post-opShould this be performed at the bedside?->YesRANCHO [facility]Name: [facility] : 1945 Sex: MFINAL REPORT CLINICAL HISTORY: Post-op TECHNIQUE: 1 view of the chest. COMPARISON: 12/11/2019 IMPRESSION: There are new mildly prominent lung markings in the right upper lung and bilateral lower lung zones. There are no significant appearing pleural effusions. The cardiomediastinal silhouette is magnified by technique. Signed: Vane Pretty MDReport Verified Date/Time: 12/13/2019 11:28:43 Reading Location: [facility] Radiology Reading Room SODIUM NA- STAT [id number] 08:38:00 Test Item Value Reference Range Interpretation Comments SODIUM (BEAKER) (test code = 381) 138 meq/L 136-145 CALCIUM, [id number] 08:38:00 Test Item Value Reference Range Interpretation Comments CALCIUM IONIZED (BEAKER) (test 1.10 mmol/L 1.12-1.27 L code = 698) PH, BLOOD (BEAKER) (test code = 7.41 1810) BLOOD GAS, [id number] 08:38:00 Test Item Value Reference Range Interpretation Comments PH ARTERIAL (BEAKER) (test code = 7.41 7.35-7.45 383) PCO2 ARTERIAL (BEAKER) (test code 40 mm Hg 35-45 = 384) PO2 ARTERIAL (BEAKER) (test code = 196 mm Hg 80-90 H 385) O2 SATURATION ARTERIAL (BEAKER) 99.4 % 96.0-97.0 H (test code = 386) HCO3 ARTERIAL (BEAKER) (test code 25 mmol/L 21-29 = 388) BASE EXCESS ARTERIAL (BEAKER) 0.5 mmol/L -2.0-3.0 (test code = 387) PATIENT TEMPERATURE (BEAKER) (test 37.0 code = 1818) FIO2 (BEAKER) (test code = 1819) 50.0 POTASSIUM-STAT [id number] 08:38:00 Test Item Value Reference Range Interpretation Comments POTASSIUM (BEAKER) (test code = 3.2 meq/L 3.6-5.5 L 379) GLUCOSE-STAT [id number] 08:38:00 Test Item Value Reference Range Interpretation Comments GLUCOSE RANDOM (BEAKER) (test code 148 mg/dL 70-110 H = 652) HGB/HCT (H&H) - STAT [id number] 08:38:00 Test Item Value Reference Range Interpretation Comments HEMOGLOBIN (BEAKER) (test code = 9.0 GM/DL 13.0-16.8 L 410) HEMATOCRIT (BEAKER) (test code = 26.0 % 40.0-50.0 L 411) Hemoglobin [id number] 08:26:00 Test Item Value Reference Range Interpretation Comments Hemoglobin A1C (test 5.2 % 4.3-6.1 code = 4548-4) AMRITA (test code = AMRITA) Please recheckPlease recheck Lab Interpretation Normal (test code = 96804-5) [facility] [id number] 08:26:00 Test Item Value Reference Range Interpretation Comments HEMOGLOBIN A1C (BEAKER) (test code = 5.2 % 4.3-6.1 368) Please recheckPlease recheckBASIC METABOLIC [id number] 05:01:00 Test Item Value Reference Range Interpretation Comments SODIUM (BEAKER) 142 meq/L 136-145 (test code = 381) POTASSIUM (BEAKER) 4.0 meq/L 3.5-5.1 (test code = 379) CHLORIDE (BEAKER) 107 meq/L 98-107 (test code = 382) CO2 (BEAKER) (test 26 meq/L 22-29 code = 355) BLOOD UREA NITROGEN 25 mg/dL 7-21 H (BEAKER) (test code = 354) CREATININE (BEAKER) 1.78 mg/dL 0.57-1.25 H (test code = 358) GLUCOSE RANDOM 138 mg/dL 70-105 H (BEAKER) (test code = 652) CALCIUM (BEAKER) 9.1 mg/dL 8.4-10.2 (test code = 697) EGFR (BEAKER) (test 38 mL/min/1.73 ESTIMA SHANTA GFR IS code = 1092) sq m NOT ACCURATE CREATININE CLEARANCE IN PREDICTING GLOMERULAR FILTRATION RATE . ESTIMATED GFR I S NOT APPLICABLE FOR DIALYSIS PATIEN TS. Jewelsmith ID - [id number] 05:01:00 Test Item Value Reference Range Interpretation Comments MAGNESIUM (BEAKER) (test code = 2.0 mg/dL 1.6-2.6 627) Jewelsmith ID - [id number] 05:01:00 Test Item Value Reference Range Interpretation Comments PHOSPHORUS (BEAKER) (test code = 3.8 mg/dL 2.3-4.7 604) Jewelsmith ID - EDASIPOCT-GLUCOSE [id number] 21:38:00 Test Item Value Reference Range Interpretation Comments POC-GLUCOSE METER 216 mg/dL 70-110 H : TESTED A T [facility] 6720 (BEAKER) (test code = [place], 1538) [id number]: Jewelsmith/Techni rigoberto ID = [id number] for Re yes, Sairy PROTHROMBIN TIME/[id number] 19:09:00 Test Item Value Reference Range Interpretation Comments PROTIME (BEAKER) (test code = 15.2 seconds 11.9-14.2 H 759) INR (BEAKER) (test code = 370) 1.23 <=5.90 Effective 07/04/2018: PT Reference Range ChangeNew: 11.9-14.2 Previous: 11.7- 14.7RECOMMENDED COUMADIN/WARFARIN INR THERAPY RANGESSTANDARD DOSE: 2.0-3.0 Includes: PROPHYLAXIS for venous thrombosis, systemic embolization; TREATMENT for venous thrombosis and/or pulmonary embolus.HIGH RISK: Target INR is2.5-3.5 for patients wiht mechanical heart valves.BASIC METABOLIC [id number] 17:03:00 Test Item Value Reference Range Interpretation Comments SODIUM (BEAKER) 140 meq/L 136-145 (test code = 381) POTASSIUM (BEAKER) 4.2 meq/L 3.5-5.1 Specimen slightly (test code = 379) hemolyzed CHLORIDE (BEAKER) 103 meq/L 98-107 (test code = 382) CO2 (BEAKER) (test 25 meq/L 22-29 code = 355) BLOOD UREA NITROGEN 23 mg/dL 7-21 H (BEAKER) (test code = 354) CREATININE (BEAKER) 1.75 mg/dL 0.57-1.25 H Specimen slightly (test code = 358) hemolyzed GLUCOSE RANDOM 120 mg/dL 70-105 H (BEAKER) (test code = 652) CALCIUM (BEAKER) 9.9 mg/dL 8.4-10.2 (test code = 697) EGFR (BEAKER) (test 38 mL/min/1.73 ESTIMA SHANTA GFR IS code = 1092) sq m NOT ACCURATE CREATININE CLEARANCE IN PREDICTING GLOMERULAR FILTRATION RATE . ESTIMATED GFR I S NOT APPLICABLE FOR DIALYSIS PATIEN TS. Jewelsmith ID - BSPOCT-GLUCOSE [id number] 16:54:00 Test Item Value Reference Range Interpretation Comments POC-GLUCOSE METER 125 mg/dL 70-110 H : TESTED A T [facility] 6720 (BEAKER) (test code = HAYDEN Rob [facility], 1538) [id number]: Jewelsmith/Techni rigoberto ID = [id number] for PHYLLIS FIORE Carotid doppler [id number] 07:51:37Ejection FractionSLE ECHO HEARTLAB MKCKESSON CPACSRight Impression1. There is <50% diameter reduction (approximately 41% by 2-D measurement)in the internal carotid artery with a peak velocity of 53/14 cm/sec andheterogeneous plaque.2. There is non-occluding plaque in the external carotid artery.3.There is non-occluding plaque in the common carotid artery.4. The vertebral artery flow is antegradeand normal.5. The subclavian artery is within normal limits where visualized.Left Impression1. Thereis <50% diameter reduction (approximately 41% by 2-D measurement)in the internal carotid artery with a peak velocity of 59/15 cm/sec andheterogeneous plaque.2. There is non-occluding plaque in the external carotid artery.3. There is non-occluding plaque in the common carotid artery.4. The vertebralartery flow is antegrade and normal.5. The subclavian artery is within normal limits where visualized. Conclusions Summary Carotid duplex scanning and color flow imaging were performed bilaterally. The arteries were adequately visualized. The bilateral internal carotid arteries had <50% hemodynamically insignificant stenosis (approximately 41% by 2-D measurement on the right, approximately 41% b y 2-D measurement on the left) with heterogeneous plaque. The vertebral artery flow was antegrade and normal bilaterally. Signature Velocities are measured in cm/s ; Diameters aremeasured in cm Carotid Right Measurements+ +----+----+-----+ + ---+ +!Location !PSV !EDV !Angle!%Stenosis 2D!%Stenosis Doppler!Tortuosity !+-------- -------+----+----+-----+ + + +!Prox CCA !76.2!15.8!60 ! ! ! !+ +----+----+-----+ + ----+ +!Dist CCA !66.3!16.4!60 ! ! ! !+------- --------+----+----+-----+ + + +!Prox ICA !53.4!14.1!60 !41% !<50% ! !+ +----+----+-----+ +--------- --------+ +!Dist ICA !69.2!23.5!60 ! ! ! !+--- +----+----+-----+ + + +!Prox ECA !75.6!15.2!60 ! ! ! !+ +----+----+-----+ +-------- ---------+ +!Vertebral !30.3!10 !60 ! ! ! !+-- +----+----+-----+ + + +!Prox Subclavian!79.2! !60 ! ! ! !+ +----+----+-----+ + + + - Additional Measurements:ICAPSV/CCAPSV 1.04.ICAEDV/CCAEDV 1.49. Carotid Left Measurements+ +----+----+-----+ + +---- -------+!Location !PSV !EDV !Angle!%Stenosis 2D!%Stenosis Doppler!Tortuosity !+ +----+----+-----+-- + + +!Prox CCA !101 !23.6!60 ! ! ! !+ +----+----+-----+ + + +!Di st CCA !80.1!19.6!60 ! ! ! !+ +----+----+-----+- + + +!Prox ICA !59.8!15.2!60 !41% !<50% ! !+ +----+----+-----+ + + +!Di st ICA !68 !22.3!60 ! ! ! !+ +----+----+--- --+ + + +!Prox ECA !173 !23.6!60 ! ! ! !+ +----+----+-----+ + + +!Ve rtebral !44 !17 !60 ! ! ! !+ +----+----+-- ---+ + + +!Prox Subclavian!86.4! !60 ! ! ! !+ +----+----+-----+ + + +- Additional Measurements:ICAPSV/CCAPSV 0.85.ICAEDV/CCAEDV 0.94. Interface, External Ris In - 12/12/2019 7:51 AM [facility] LAB - Carotid Duplex Study Demographics Patient Name DUKE MARIN Date of Study 12/11/2019 DEBORAH III Age 74 Visit Number [id number] Gender Male Accession Number [id number] Date of 1945 Referring Casey Lo NP Room Number Physician Boxing Trainer Peter Forbes [facility] Interpreting Caryl Gao Physician ProcedureType of Study: Cerebral: Carotid, CAROTID DOPPLER,BILATERAL. Indications for Study:Pre-venous access.Patient Status:Routine.Study Location:Vascular Lab.Technical Quality:Adequate visualization.Risk FactorsHistory of Disease+ +- + +!Diagnosis !Date !Comments !+ + + +!Ot her ! !Pre-OP !+ + + +ImpressionsRight Impression1. There is <50% diameter reduction (approximately 41% by 2-D measurement)in the internal carotid artery with a peak velocity of 53/14 cm/sec andheterogeneous plaque.2. There is non-occluding plaque in the external carotid artery.3. There is non-occluding plaque in the common carotid artery.4. The vertebral artery flow is antegrade and normal.5. The subclavian artery is within normal limits where visualized.Left Impression1. There is <50% diameter reduction (approximately 41% by 2-D measurement)in the internal carotid artery with a peak velocity of 59/15 cm/sec andheterogeneous plaque.2. There is non-occluding plaque in the external carotid artery.3. There is non-occluding plaque in the common carotid artery.4. The vertebral artery flow is antegrade and normal.5. The subclavian artery is within normal limits where visualized. Conclusions Summary Carotid duplex scanning and color flow imaging were performed bilater ally. The arteries were adequately visualized. The bilateral internal carotid arteries had <50% hemodynamically insignificant stenosis (approximately 41% by 2-D measurement on the right, approximately 41% by 2-D measurement on the left) with heterogeneous plaque. The vertebral artery flow was antegrade and normal bilaterally. Signature Velocities are measured in cm/s ; Diameters are measured in cmCarotid Right Measurements+ +----+----+-----+ +-------- ---------+ +!Location !PSV !EDV !Angle!%Stenosis 2D!%Stenosis Doppler!Tortuosity !+-- +----+----+-----+ + + +!Prox CCA !76.2!15.8!60 ! ! ! !+ +----+----+-----+ +------- + +!Dist CCA !66.3!16.4!60 ! ! ! !+- +----+----+-----+ + + +!Prox ICA !53.4!14.1!60 !41% !<50% ! !+ +----+----+-----+ +--- + +!Dist ICA !69.2!23.5!60 ! ! ! !+ +----+----+-----+ + + +!Pr ox ECA !75.6!15.2!60 ! ! ! !+ +----+----+-----+ +-- + +!Vertebral !30.3!10 !60 ! ! ! !+ +----+----+-----+ + + +!Pr ox Subclavian!79.2! !60 ! ! ! !+ +----+----+-----+ + + + - Additional Measurements:ICAPSV/CCAPSV 1.04.ICAEDV/CCAEDV 1.49.Carotid Left Measurements+ +----+----+-----+ + +---- -------+!Location !PSV !EDV !Angle!%Stenosis 2D!%Stenosis Doppler!Tortuosity !+ +----+----+---- -+ + + +!Prox CCA !101 !23.6!60 ! ! ! !+ +----+----+-----+ + + +!Di st CCA !80.1!19.6!60 ! ! ! !+ +----+----+--- --+ + + +!Prox ICA !59.8!15.2!60 !41% !<50% ! !+ +----+----+-----+ + + +! Dist ICA !68 !22.3!60 ! ! ! !+ +----+---- +-----+ + + +!Prox ECA !173 !23.6!60 ! ! ! !+ +----+----+-----+ + + + !Vertebral !44 !17 !60 ! ! ! !+ +----+--- -+-----+ + + +!Prox Subclavian!86.4! !60 ! ! ! !+ +----+----+-----+ + + + - Additional Measurements:ICAPSV/CCAPSV 0.85.ICAEDV/CCAEDV 0.94.[facility])2019-12-11 21:52:00 Test Item Value Reference Range Interpretation Comments SARS-COV2/RT-PCR (test Negative Not Detected, Negative, code = 5362661) See external report for linked test SARS-COV-[address] [facility] GENEVIEVE (test code = 5026395) Negative result for this test determines that SARS-CoV-2 RNA was not present in the specimen above the Limit of Detection (LOD). However, Negative results do not preclude SARS-CoV-2 infection and should not be used as the sole basis for treatment or patient management decisions. Negative results mustbe combined with clinical observations, patient history, and epidemiological information. A false negative result may occur if a specimen is improperly collected, transported or handled. A false negative result should be considered if patient's recent exposures or clinical presentation indicate that COVID-19 (SARS-CoV-2) is likely and diagnostic tests for other causes of illness are negative. Re-testing should be considered in cases of suspected false negatives.The limit of detection for this assay is 100 copies/mL.This SARS CoV-2 test is a real-time RT-PCR test intended for the qualitative detection of nucleic acid from SARS-CoV-2 in a nasopharyngeal swab specimen collected from individuals suspected of COVID-19 by their healthcare provider.This test has not been Food and Drug [...] is revoked under Section 564(g) of the Act.Testing was performed using the Attender SARS-CoV-2 assay.Fact Sheet for Healthcare Providers:https://www.Nephera.Nezasa/nicky/ QF_WMSE-WsU-1_DYH_Tbjm_Ceelk_80-937999.pdfFact Sheet for Healthcare Patients:https://www.Nephera.ab hoang/nicky/ZF_AIPH-EdQ-5_Jfqzfwv_Ydac_Wfqze_OU_87-743801F8.pdfPerforming Laboratory:[facility] [place] [address] Hepatitis B [id number] 19:59:00 Test Item Value Reference Range Interpretation Comments Hep B Core Total Ab (test Nonreactive Nonreactive code = 19141-1) Hep B S Ab (test code = <8.0 <8.0 mIU/mL 89953-9) HBsAg Screen (test code = Nonreactive Nonreactive 5195-3) AMRITA (test code = AMRITA) Jewelsmith ID - ADMIN Lab Interpretation (test Normal code = 93418-1) [facility] [id number] 19:59:00 Test Item Value Reference Range Interpretation Comments HEPATITIS B CORE TOTAL ANTIBODY Nonreactive Nonreactive (BEAKER) (test code = 497) HEPATITIS B SURFACE ANTIBODY < mIU/mL <8.0 (BEAKER) (test code = 647) HEPATITIS B SURFACE ANTIGEN (2) Nonreactive Nonreactive (BEAKER) (test code = 2585) Jewelsmith ID - ADMINHEMOGLOBIN [id number] 19:58:00 Test Item Value Reference Range Interpretation Comments HEMOGLOBIN A1C (BEAKER) (test code = 5.5 % 4.3-6.1 368) Received comment: User comments: Slide comments: Received comment: User comments: Slide comments:Hepatitis C [id number] 19:52:00 Test Item Value Reference Range Interpretation Comments Hepatitis C Ab (test code Nonreactive Nonreactive = 28109-6) AMRITA (test code = AMRITA) Jewelsmith ID - ADMIN Lab Interpretation (test Normal code = 18743-5) [facility] Antigen with HIV-1/2 [id number] 19:52:00 Test Item Value Reference Range Interpretation Comments HIV-1 Antigen with HIV Nonreactive Nonreactive 1&2 Antibody (test code = 24708-7) AMRITA (test code = AMRITA) Jewelsmith ID - ADMIN Lab Interpretation (test Normal code = 51595-0) [facility] [id number] 19:52:00 Test Item Value Reference Range Interpretation Comments HEPATITIS C ANTIBODY (BEAKER) Nonreactive Nonreactive (test code = 367) Jewelsmith ID - ADMINHIV-1 ANTIGEN WITH HIV-1/2 [id number] 19:52:00 Test Item Value Reference Range Interpretation Comments HIV-1 ANTIGEN WITH HIV 1\\T\\2 Nonreactive Nonreactive ANTIBODY (2) (BEAKER) (test code = 2586) Jewelsmith ID - ADMINAntibody [id number] 16:23:00 Test Item Value Reference Range Interpretation Comments ANTIBODY ID UNID IgGWARM (BEAKER) (test AUTO AB code = 2253) Antibody Consult SIGNED OUT Warm vitaliy lópez (test code = detected, ok to 2479) transfuse incom patible bloodElectronic Signature: Radhika Woo M.D. [facility](CELLAVISION MANUAL DIFF)2019-12-11 15:57:00 Test Item Value Reference Range Interpretation Comments NEUTROPHILS - REL 10 % (CELLAVISION)(BEAKER) (test code = 2816) LYMPHOCYTES - REL 72 % (CELLAVISION)(BEAKER) (test code = 2817) MONOCYTES - REL 7 % (CELLAVISION)(BEAKER) (test code = 2818) EOSINOPHILS - REL 1 % (CELLAVISION)(BEAKER) (test code = 2819) METAMYELOCYTES - REL 1 % 0-0 H (CELLAVISION)(BEAKER) (test code = 2821) MYELOCYTES - REL 2 % 0-0 H (CELLAVISION)(BEAKER) (test code = 2822) BANDS - REL (CELLAVISION)(BEAKER) 5 % 0-10 (test code = 2826) ATYPICAL LYMPHOCYTES - REL 3 % 0-0 H (CELLAVISION)(BEAKER) (test code = 2829) NEUTROPHILS - ABS 7.33 K/ul 1.78-5.38 H (CELLAVISION)(BEAKER) (test code = 2830) LYMPHOCYTES - ABS 52.78 K/ul 1.32-3.57 H (CELLAVISION)(BEAKER) (test code = 2831) MONOCYTES - ABS 5.13 K/uL 0.30-0.82 H (CELLAVISION)(BEAKER) (test code = 2832) EOSINOPHILS - ABS 0.73 K/uL 0.04-0.54 H (CELLAVISION)(BEAKER) (test code = 2834) METAMYELOCYTES - ABS 0.73 K/uL 0.00-0.00 H (CELLAVISION)(BEAKER) (test code = 2836) MYELOCYTES-ABS 1.47 K/uL 0.00-0.00 H (CELLAVISION)(BEAKER) (test code = 2837) BANDS - ABS (CELLAVISION)(BEAKER) 3.67 K/uL 0.00-0.80 H (test code = 2840) ATYPICAL LYMPHOCYTES - ABS 2.20 K/uL 0.00-0.00 H (CELLAVISION)(BEAKER) (test code = 2858) TOTAL COUNTED (BEAKER) (test code 100 = 1351) PLT MORPHOLOGY (BEAKER) (test Normal code = 486) SMUDGE CELLS (BEAKER) (test code Present = 1371) POLYCHROMATOPHILLIC RBCS(BEAKER) 1+ few (test code = 478) HYPOCHROMIA (BEAKER) (test code = 1+ few 963) ANISOCYTOSIS (BEAKER) (test code 2+ moderate = 961) MICROCYTES (BEAKER) (test code = 1+ few 965) POIKILOCYTES (BEAKER) (test code 1+ few = 966) SPHEROCYTES (BEAKER) (test code = 1+ few 768) PLATELET CONCENTRATION Adequate (CELLAVISION)(BEAKER) (test code = 3438) [facility] ID - [place] comments: Slide comments:CBC W/PLT COUNT & AUTO [id number] 15:28:00 Test Item Value Reference Range Interpretation Comments WHITE BLOOD CELL COUNT (BEAKER) 73.3 K/ L 3.5-10.5 HH (test code = 775) RED BLOOD CELL COUNT (BEAKER) 3.10 M/ L 4.63-6.08 L (test code = 761) HEMOGLOBIN (BEAKER) (test code = 9.8 GM/DL 13.7-17.5 L 410) HEMATOCRIT (BEAKER) (test code = 31.4 % 40.1-51.0 L 411) MEAN CORPUSCULAR VOLUME (BEAKER) 101.3 fL 79.0-92.2 H (test code = 753) MEAN CORPUSCULAR HEMOGLOBIN 31.6 pg 25.7-32.2 (BEAKER) (test code = 751) MEAN CORPUSCULAR HEMOGLOBIN CONC 31.2 GM/DL 32.3-36.5 L (BEAKER) (test code = 752) RED CELL DISTRIBUTION WIDTH 17.5 % 11.6-14.4 H (BEAKER) (test code = 412) PLATELET COUNT (BEAKER) (test 175 K/CU MM 150-450 code = 756) MEAN PLATELET VOLUME (BEAKER) 10.4 fL 9.4-12.4 (test code = 754) NUCLEATED RED BLOOD CELLS 0 /100 WBC 0-0 (BEAKER) (test code = 413) Type and screen, [id number] 14:53:00 Test Item Value Reference Range Interpretation Comments ABO/RH AUTOMATED (BEAKER) (test A POSITIVE code = 2260) Ab Scrn (test code = 890-4) [facility] [id number] 14:08:00 Test Item Value Reference Range Interpretation Comments Direct AHG-IGG (test code = 1006-6) POSITIVE 4+ Direct AHG-C3B, C3D (test code = POSITIVE Micro+ 1003-3) [facility]ST, 2 [id number] 13:32:00Reason for Exam:->pre-opRAN[facility]Name: [facility] MARIN : 1945 Sex: MFINAL REPORT PA and Lateral views of the chest dated 12/11/2019 Clinical information: pre-op Comment: Heart is normal in size. Thoracic aorta is ectatic. Pulmonary vasculature is unremarkable. Lungs are clear. No pulmonary infiltrate or pleural effusion is present.Impression: No active cardiopulmonary disease. Signed: Vamsi Johnseport Verified Date/Time: 05/2019 13:32:39 Reading Location: [facility] Reading Room XR chest 2 [id number] 13:32:00Interface, External Ris In - 12/11/2019 1:34 PM CSTFINAL REPORT PA and Lateral views of the chest dated 12/11/2019 Clinical information: pre-op Comment: Heart is normal in size. Thoracic aorta is ectatic. Pulmonary vasculature is unremarkable. Lungs are clear. No pulmonary infiltrate or pleural effusion is present. Impression: No active cardiopulmonary disease. Signed: Vamsi Johns Verified Date/Time: 12/11/2019 13:32:39 Reading Location: [facility] Radiology Reading [facility] [id number] 12:30:00 Test Item Value Reference Range Interpretation Comments SODIUM (BEAKER) 140 meq/L 136-145 (test code = 381) POTASSIUM (BEAKER) 3.5 meq/L 3.5-5.1 (test code = 379) CHLORIDE (BEAKER) 103 meq/L 98-107 (test code = 382) CO2 (BEAKER) (test 26 meq/L 22-29 code = 355) BLOOD UREA NITROGEN 23 mg/dL 7-21 H (BEAKER) (test code = 354) CREATININE (BEAKER) 1.77 mg/dL 0.57-1.25 H (test code = 358) GLUCOSE RANDOM 349 mg/dL 70-105 H (BEAKER) (test code = 652) CALCIUM (BEAKER) 9.3 mg/dL 8.4-10.2 (test code = 697) EGFR (BEAKER) (test 38 mL/min/1.73 ESTIMA SHANTA GFR IS code = 1092) sq m NOT ACCURATE CREATININE CLEARANCE IN PREDICTING GLOMERULAR FILTRATION RATE . ESTIMATED GFR I S NOT APPLICABLE FOR DIALYSIS PATIEN TS. Jewelsmith ID - [id number] 11:26:00 Test Item Value Reference Range Interpretation Comments Albumin (test code = 4.1 g/dL 3.5-5 94913-4) AMRITA (test code = AMRITA) Jewelsmith ID - ADMIN Lab Interpretation (test Normal code = 83153-8) [facility] HospitalAmylase[facility] 11:26:00 Test Item Value Reference Range Interpretation Comments Amylase (test code = 30 U/L 25-125 1798-8) AMRITA (test code = AMRITA) Jewelsmith ID - ADMIN Lab Interpretation (test Normal code = 29453-0) [facility] HospitalBilirubin, adult [id number] 11:26:00 Test Item Value Reference Range Interpretation Comments Total Bilirubin (test code 0.9 mg/dL 0.2-1.2 = 1975-2) AMRITA (test code = AMRITA) Jewelsmith ID - ADMIN Lab Interpretation (test Normal code = 37397-5) [facility] HospitalBilirubin, [id number] 11:26:00 Test Item Value Reference Range Interpretation Comments Bilirubin, Direct (test 0.4 mg/dL 0.1-0.5 code = 1968-7) AMRITA (test code = AMRITA) Jewelsmith ID - ADMIN Lab Interpretation (test Normal code = 45732-8) [facility] HospitalLactate dehydrogenase (LDH)2019-12-11 11:26:00 Test Item Value Reference Range Interpretation Comments LDH (test code = 2532-0) 177 U/L 125-220 AMRITA (test code = AMRITA) Jewelsmith ID - ADMIN Lab Interpretation (test Normal code = 50579-6) [facility] HospitalLipase2020-11-04 11:26:00 Test Item Value Reference Range Interpretation Comments Lipase (test code = 22 U/L 8-78 3040-3) AMRITA (test code = AMRITA) Jewelsmith ID - ADMIN Lab Interpretation (test Normal code = 25311-3) [facility] HospitalAlkaline [id number] 11:26:00 Test Item Value Reference Range Interpretation Comments Alkaline Phosphatase (test 93 U/L 40-150 code = 6768-6) AMRITA (test code = AMRITA) Jewelsmith ID - ADMIN Lab Interpretation (test Normal code = 07702-4) [facility] HospitalProtein, [id number] 11:26:00 Test Item Value Reference Range Interpretation Comments Protein, Total (test code 6.1 6.0- 8.3 gm/dL = 2885-2) AMRITA (test code = AMRITA) Jewelsmith ID - ADMIN Lab Interpretation (test Normal code = 38908-2) [facility] HospitalAST (SGOT)2019-12-11 11:26:00 Test Item Value Reference Range Interpretation Comments AST (test code = 1920-8) 12 U/L 5-34 AMRITA (test code = AMRITA) Jewelsmith ID - ADMIN Lab Interpretation (test Normal code = 29998-7) [facility] HospitalALT (SGPT)2019-12-11 11:26:00 Test Item Value Reference Range Interpretation Comments ALT (test code = 1742-6) 12 U/L 6-55 AMRITA (test code = AMRITA) Jewelsmith ID - ADMIN Lab Interpretation (test Normal code = 17360-4) [facility] HospitalALKALINE [id number] 11:26:00 Test Item Value Reference Range Interpretation Comments ALKALINE PHOSPHATASE (BEAKER) (test 93 U/L 40-150 code = 346) Jewelsmith ID - ADMINPROTEIN, [id number] 11:26:00 Test Item Value Reference Range Interpretation Comments TOTAL PROTEIN (BEAKER) (test code = 6.1 gm/dL 6.0-8.3 770) Jewelsmith ID - ADMINAST (SGOT)2019-12-11 11:26:00 Test Item Value Reference Range Interpretation Comments AST (SGOT) (BEAKER) (test code = 353) 12 U/L 5-34 Jewelsmith ID - ADMINALT (SGPT)2019-12-11 11:26:00 Test Item Value Reference Range Interpretation Comments ALT (SGPT) (BEAKER) (test code = 347) 12 U/L 6-55 Jewelsmith ID - [id number] 11:26:00 Test Item Value Reference Range Interpretation Comments ALBUMIN (BEAKER) (test code = 1145) 4.1 g/dL 3.5-5.0 Jewelsmith ID - [id number] 11:26:00 Test Item Value Reference Range Interpretation Comments AMYLASE (BEAKER) (test code = 349) 30 U/L 25-125 Jewelsmith ID - ADMINBILIRUBIN, ADULT [id number] 11:26:00 Test Item Value Reference Range Interpretation Comments BILIRUBIN TOTAL (BEAKER) (test code 0.9 mg/dL 0.2-1.2 = 377) Jewelsmith ID - ADMINBILIRUBIN, [id number] 11:26:00 Test Item Value Reference Range Interpretation Comments BILIRUBIN DIRECT (BEAKER) (test 0.4 mg/dL 0.1-0.5 code = 706) Jewelsmith ID - ADMINLACTATE DEHYDROGENASE (LDH)2019-12-11 11:26:00 Test Item Value Reference Range Interpretation Comments LACTATE DEHYDROGENASE (BEAKER) (test 177 U/L 125-220 code = 635) Jewelsmith ID - [id number] 11:26:00 Test Item Value Reference Range Interpretation Comments LIPASE (BEAKER) (test code = 749) 22 U/L 8-78 Jewelsmith ID - ADMINUrinalysis w/[id number] 11:18:00 Test Item Value Reference Range Interpretation Comments Color, UA (test code = Light Yellow 5778-6) Clarity, UA (test code = Hazy 5767-9) Specific [place], UA (test 1.011 1.001-1.035 code = 5811-5) pH, UA (test code = 6.5 5.0-8.0 5803-2) Protein, UA (test code = 10 mg/dL Negative A 20626-5) Glucose, UA (test code = 1000 mg/dL Negative A 365) Ketones, UA (test code = Negative Negative 2514-8) Bilirubin, UA (test code = Negative Negative 80924-6) Blood, UA (test code = Small Negative A 57517-8) Nitrite, UA (test code = Negative Negative 5802-4) Leukocytes, UA (test code Large Negative A = 5799-2) Urobilinogen, UA (test 0.2 mg/dL 0.2-1 code = 33437-8) RBC, UA (test code = 4 /HPF 11005-7) WBC, UA (test code = 152 /HPF 5821-4) Mucus (test code = 8247-9) Rare Squam Epithel, UA (test <1 /HPF code = 23806-0) Specimen Source (test code = 2795) AMRITA (test code = AMRITA) Jewelsmith ID - [auto]Jewelsmith ID - tech Lab Interpretation (test Abnormal code = 40651-1) [facility] HospitalURINALYSIS W/ [id number] 11:18:00 Test Item Value Reference Range Interpretation Comments COLOR (BEAKER) (test code = 470) Light Yellow CLARITY (BEAKER) (test code = Hazy 469) SPECIFIC GRAVITY UA (BEAKER) 1.011 1.001-1.035 (test code = 468) PH UA (BEAKER) (test code = 467) 6.5 5.0-8.0 PROTEIN UA (BEAKER) (test code = 10 mg/dL Negative A 464) GLUCOSE UA (BEAKER) (test code = 1000 mg/dL Negative A 365) KETONES UA (BEAKER) (test code = Negative Negative 371) BILIRUBIN UA (BEAKER) (test code Negative Negative = 462) BLOOD UA (BEAKER) (test code = Small Negative A 461) NITRITE UA (BEAKER) (test code = Negative Negative 465) LEUKOCYTE ESTERASE UA (BEAKER) Large Negative A (test code = 466) UROBILINOGEN UA (BEAKER) (test 0.2 mg/dL 0.2-1.0 code = 463) RBC UA (BEAKER) (test code = 4 /HPF 519) WBC UA (BEAKER) (test code = 152 /HPF 520) MUCUS (BEAKER) (test code = Rare 1574) SQUAMOUS EPITHELIAL (BEAKER) < /HPF (test code = 516) SOURCE(BEAKER) (test code = 2795) Jewelsmith ID - [auto]Jewelsmith ID - [id number] 11:14:00 Test Item Value Reference Range Interpretation Comments PARTIAL THROMBOPLASTIN TIME 32.6 seconds 22.5-36.0 (BEAKER) (test code = 760) PROTHROMBIN TIME/[id number] 11:13:00 Test Item Value Reference Range Interpretation Comments PROTIME (BEAKER) (test code = 15.2 seconds 11.9-14.2 H 759) INR (BEAKER) (test code = 370) 1.24 <=5.90 Effective 07/04/2018: PT Reference Range ChangeNew: 11.9-14.2 Previous: 11.7- 14.7RECOMMENDED COUMADIN/WARFARIN INR THERAPY RANGESSTANDARD DOSE: 2.0-3.0 Includes: PROPHYLAXIS for venous thrombosis, systemic embolization; TREATMENT for venous thrombosis and/or pulmonary embolus.HIGH RISK: Target INR is2.5-3.5 for patients wiht mechanical heart valves.Reticulocyte [id number] 11:12:00 Test Item Value Reference Range Interpretation Comments % Retic (test code = 3.3 % 0.5-1.8 H 90539-9) AMRITA (test code = AMRITA) Jewelsmith ID - [id number] Lab Interpretation (test Abnormal code = 47740-7) [facility] HospitalRETICULOCYTE [id number] 11:12:00 Test Item Value Reference Range Interpretation Comments RETICULOCYTE COUNT PCT (BEAKER) (test 3.3 % 0.5-1.8 H code = 575) Jewelsmith ID - [id number] Funct Lab [id number] 10:30:00Bianca yL, AEROSPACE ENGINEER, DRILLING FOREMAN 11/21/2019 12:31 [facility] PFT CHARTING REPORT Infection Control/Hand Hygiene procedures followed throughout the encounter with patient: YesPatient Identification Method: Patient name verified on armband, and Medical record on armband, Is the order complete?: Yes Account ID#: [id number] Name: Duke Marin IIIBirthdate: 1945 Age: 74 y.o. Sex: male Admission Date: 11/21/2019 Patient Status: Outpatient Reasons/Symptom for having the Test?: surgical clearance Type of study/treatment ordered by physician: Spirometry with bronchodilators Lab Results Component Value DateHGB 12.4 (L) 02/12/2018 Ranges: Adult Male 13 - 16.8 g/dl Adult Female 12 - 15 g/dl6 Minute Walk (read only) 02/16/2018 11/05/2019 11/21/2019 Pulse 57 58 - SpO2 95 98 99 Study Date: 11/21/19 Study Time: 1050 ASSESSMENT History & Physical Mode of Arrival: Wheelchair Pulse: 60 Resp: 20 SPO2: 99 % on RA Pain Assessment Pain:None TESTING/THERAPEUTICS Medications ordered or required for procedure: Albuterol, PT EDUCATION/INSTRUCTIONS Barriers to learning: No known barriers to learning. Learning need identified: Yes, Patient/Family/Guradian was informed of the ordered study by the physician Barriers to performing study or treatment: Patient has no known disability to perform the study or treatment. DISCHARGE The study wascompleted in accordance with the physician's order and patient released from the lab without adverseoutcome.[facility] HospitalCT, CTA, [id number] 14:08:00Part of CTA Chest, ABD and Pelvis for AAAUnlisted Reason for Exam - Click Yes and Enter Reason Below->NoFINAL REPORT EXAM: CTA OF THE THORACOABDOMINAL AORTA AND PELVIC ARTERIES INDIC ATION: AAA, monitoring COMPARISON: CT abdomen pelvis 08/10/2010, CT urogram to 08/25/2013, echocardiogram report 11/05/2019 TECHNIQUE: Multi-detector CT technology was employed. CTA Gated axial imaging of the chest, abdomen, and pelvis was performed after the administration of IV contrast. IV CONTRAST: 100 mL of Isovue-370 ORAL CONTRAST: None COMPLICATIONS: None RADIATION DOSE: Total DLP: 1200 mGy*cm Estimated effective dose: (DLP x 0.015 x size factor) mSv CTDIvol has been reviewed. It is below the limits set by the Radiation Protocol Committee (RPC). For optimization of anatomic evaluation, multiplanar reconstruction, maximum intensity projections, and advanced 3-D off-line postprocessing were performed on a dedicated stand- alone workstation under the direct supervision of the interpreting physician. FINDINGS:Potential study limitations: None. LINES/ TUBES: None. VASCULAR WITH ADVANCED 3-D OFF-LINE POSTPROCESSING: AORTIC VALVE:Aortic valve morphology is trileaflet and contains moderate calcifications of the right coronary cusp. 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 The aortic arch is normal in size, measuring 2.9 cm in diameter. The proximal and mid ascending thoracic aorta are mildly dilated titus suring up to 3.3 cm. The distal descending thoracic aorta is normal in size.There is no acute aorticpathology, such as dissection, intramural hematoma, or contained rupture. Aortic plaques: Scattered calcified and noncalcified atherosclerotic changes throughout the thoracic aorta, worse in the descending thoracic segment. There is a 5 mm no uncomplicated penetrating ulcer within the anterior wall of the mid ascending thoracic aorta on series 2, image 67. The arch vessel branching pattern is conventional. All of the arch branch vessels appear widely patent in their proximal portions. The innominate artery is markedly tortuous and ectatic measuring up to 1.2 cm in diameter. Abdominal aortic aneurysm detail anatomy: Fusiform 5.8 x 5.5 cm aneurysm of the infrarenal abdominal aorta, which begins 5.2 cm below the right renal artery and extends down to just above the bifurcation. The aneurysm is associated with moderate amount of intraluminal thrombus, which contains mild internal calcification, and resulting in 40% of intraluminal narrowing with a minimal lumen of 3.6 cm. There is a 10 mm penetrating ulcer within the aneurysm, at the level of L5 vertebral body on series 3, image 169. The superior neck measures 2.6 cm and the inferior neck measures 3.2 cm. The length from the aortic bifurcation to the origin of the external iliac arteries is 5 cm. There is moderate angulation of the aneurysm. The remaining abdominal aorta is tortuous but normal in caliber. There is no acute aortic pathology . Aortic plaques: Moderate nonobstructing atherosclerotic changes throughout the abdominal aorta. Desizing Machine Operator Head End dimensions of the thoracic aorta are as follows: 2.4 x 2.9 cm at the aortic annulus4.2 x 3.9 cm at the sinuses of Valsalva (the sinotubular junction is preserved)4.7 cm at the proximaland mid ascending aorta3.9 cm at the distal ascending aorta2.9 cm at the mid transverse arch3.3 cm at the proximal and 3.4 cm at the distal descending thoracic aorta3.0 cm at the diaphragmatic hiatus. T he abdominal aorta measures: 2.9 cm at the supramesenteric segment2.9 cm at the mesenteric segment2.6 cm at the renal segment5.8 x 5.5 cm at the mid infrarenal segment3.2 cm at the aortic bifurcation. The celiac axis, SMA, and DAVONTE are patent. There are single renal arteries bilaterally, both of whichappear patent. 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 There are mild to moderate nonobstructing atherosclerotic changes of the pelvic arteries. 2.6 cm at the right common iliacartery0.9 cm at the right external iliac artery1.7 cm at the left common iliac artery0.8 cm at the left external iliac artery NON VASCULAR FINDINGS: LUNGS AND AIRWAYS: Moderate bilateral centrilobular emphysema. No suspicious pulmonary nodules or masses. No consolidations. Airways are patent. PLEURA: The pleural spaces are clear.. HEART AND MEDIASTINUM: The thyroid gland is normal. Diffuse mediastinal and bilateral axillary lymphadenopathy. For example there is a 2 cm enlarged lymph node in the right lower paratracheal region (4R), a 3.0 x 1.4 cm left lower paratracheal enlarged lymph node (4L), and a 1.7 cm subcarinal lymph node (level seven). The largest axillary lymph node measuring 1.5 cm on the right and 1.5 cm on the left. The main pulmonary artery is borderline in size measuring 3 cm in diameter. The cardiac chambers demonstrate normal atrioventricular and ventriculoarterial concordance, and systemic and pulmonary venous return. The cardiac chambers are normal in size. The coronaryarteries have normal origins and courses. There are diffuse coronary calcifications identified, though this study was not optimized for coronary artery evaluation. There is no pericardial effusion.ABDOMEN:The liver, gallbladder, and pancreas appear normal. The spleen is mildly enlarged, [id number] cm in length in the craniocaudal dimension. The adrenal glands appear normal. Both kidneys arenormal in size, shape, and density. Multiple bilateral renal cysts have not significantly changed since 2014. The largest measures 4.5 cm in the inferior left kidney. PELVIS:Right para-aortic, preaortic, and retroperitoneal lymphadenopathy. For example, there is a 2.2 x 1 cm right para-aortic lymph node on series 3, image 142. No free fluid or free air within the abdomen or pelvis. Diffuse diverticulosis throughout the colon without diverticulitis. The appendix is normal. Asymmetry wall thickening of the urinary bladder measuring up to 0.9 cm in thickness on the right on series 2, image 234 likely correlates with this patient bladder cancer. The prostate is mildly enlarged, measuring 3.6 cm inAP diameter by 4.8 cm in transverse diameter. BONES:Mild multilevel degenerative changes of the thoracolumbar spine. IMPRESSION: 1. 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 No acute aortic pathology identified. 2. 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 It previously measured 3.7cm on CT urogram from 2013. 3. 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 4. Nonvascular findings:- Mediastinal, bilateral hilar, and abdominal lymphadenopathy highly concerning for metastasis.- Asymmetric right urinary bladder wall thickening may correlate with this patient bladder cancer. Signed: Kim Hamilton MDReport Verified Date/Time: 11/05/2019 14:08:15 Reading Location: [facility] Reading Room [address] [place] [address] CT, CTA, [id number] 14:08:00Unlisted Reason for Exam - Click Yes and Enter Reason Below->NoFINAL REPORT EXAM: CTA OF THE THORACOABDOMINAL AORTA AND PELVIC ARTERIES INDICATION: AAA, monitoring COMPARISON: CT abdomen pelvis 08/10/2010, CT urogram to 08/25/2013, echocardiogram report 11/05/2019 TECHNIQUE: Multi-detector CT technology was employed. CTA Gated axial imaging of the chest, abdomen, and pelvis was performed after the administration of IV contrast. IV CONTRAST: 100 mL of Isovue-370 ORAL CONTRAST: None COMPLICATIONS: None RADIATION DOSE: Total DLP: 1200 mGy*cm Estimated effective dose: (DLP x 0.015 x size factor) mSv CTDIvol has been reviewed. It is below the limits set by the Radiation Protocol Committee (RPC). For optimization of anatomic evaluation, multiplanar reconstruction, maximum intensity projections, and advanced 3-D off-line postprocessing were performed on a dedicated stand- alone workstation under the direct supervision of the interpreting physician. FINDINGS:Potential study limitations: None. LINES/ TUBES: None. VASCULAR WITH ADVANCED 3-D OFF-LINE POSTPROCESSING: AORTIC VALVE:Aortic valve morphology is trileaflet and contains moderate calcifications of the right coronary cusp. 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 The aortic arch is normal in size, measuring 2.9 cm in diameter. The proximal and mid ascending thoracic aorta are mildly dilated titus suring up to 3.3 cm. The distal descending thoracic aorta is normal in size.There is no acute aorticpathology, such as dissection, intramural hematoma, or contained rupture. Aortic plaques: Scattered calcified and noncalcified atherosclerotic changes throughout the thoracic aorta, worse in the descending thoracic segment. There is a 5 mm no uncomplicated penetrating ulcer within the anterior wall of the mid ascending thoracic aorta on series 2, image 67. The arch vessel branching pattern is conventional. All of the arch branch vessels appear widely patent in their proximal portions. The innominate artery is markedly tortuous and ectatic measuring up to 1.2 cm in diameter. Abdominal aortic aneurysm detail anatomy: Fusiform 5.8 x 5.5 cm aneurysm of the infrarenal abdominal aorta, which begins 5.2 cm below the right renal artery and extends down to just above the bifurcation. The aneurysm is associated with moderate amount of intraluminal thrombus, which contains mild internal calcification, and resulting in 40% of intraluminal narrowing with a minimal lumen of 3.6 cm. There is a 10 mm penetrating ulcer within the aneurysm, at the level of L5 vertebral body on series 3, image 169. The superior neck measures 2.6 cm and the inferior neck measures 3.2 cm. The length from the aortic bifurcation to the origin of the external iliac arteries is 5 cm. There is moderate angulation of the aneurysm. The remaining abdominal aorta is tortuous but normal in caliber. There is no acute aortic pathology . Aortic plaques: Moderate nonobstructing atherosclerotic changes throughout the abdominal aorta. Desizing Machine Operator Head End dimensions of the thoracic aorta are as follows: 2.4 x 2.9 cm at the aortic annulus4.2 x 3.9 cm at the sinuses of Valsalva (the sinotubular junction is preserved)4.7 cm at the proximaland mid ascending aorta3.9 cm at the distal ascending aorta2.9 cm at the mid transverse arch3.3 cm at the proximal and 3.4 cm at the distal descending thoracic aorta3.0 cm at the diaphragmatic hiatus. T he abdominal aorta measures: 2.9 cm at the supramesenteric segment2.9 cm at the mesenteric segment2.6 cm at the renal segment5.8 x 5.5 cm at the mid infrarenal segment3.2 cm at the aortic bifurcation. The celiac axis, SMA, and DAVONTE are patent. There are single renal arteries bilaterally, both of whichappear patent. 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 There are mild to moderate nonobstructing atherosclerotic changes of the pelvic arteries. 2.6 cm at the right common iliacartery0.9 cm at the right external iliac artery1.7 cm at the left common iliac artery0.8 cm at the left external iliac artery NON VASCULAR FINDINGS: LUNGS AND AIRWAYS: Moderate bilateral centrilobular emphysema. No suspicious pulmonary nodules or masses. No consolidations. Airways are patent. PLEURA: The pleural spaces are clear.. HEART AND MEDIASTINUM: The thyroid gland is normal. Diffuse mediastinal and bilateral axillary lymphadenopathy. For example there is a 2 cm enlarged lymph node in the right lower paratracheal region (4R), a 3.0 x 1.4 cm left lower paratracheal enlarged lymph node (4L), and a 1.7 cm subcarinal lymph node (level seven). The largest axillary lymph node measuring 1.5 cm on the right and 1.5 cm on the left. The main pulmonary artery is borderline in size measuring 3 cm in diameter. The cardiac chambers demonstrate normal atrioventricular and ventriculoarterial concordance, and systemic and pulmonary venous return. The cardiac chambers are normal in size. The coronaryarteries have normal origins and courses. There are diffuse coronary calcifications identified, though this study was not optimized for coronary artery evaluation. There is no pericardial effusion.ABDOMEN:The liver, gallbladder, and pancreas appear normal. The spleen is mildly enlarged, cm in length in the craniocaudal dimension. The adrenal glands appear normal. Both kidneys arenormal in size, shape, and density. Multiple bilateral renal cysts have not significantly changed since 2014. The largest measures 4.5 cm in the inferior left kidney. PELVIS:Right para-aortic, preaortic, and retroperitoneal lymphadenopathy. For example, there is a 2.2 x 1 cm right para-aortic lymph node on series 3, image 142. No free fluid or free air within the abdomen or pelvis. Diffuse diverticulosis throughout the colon without diverticulitis. The appendix is normal. Asymmetry wall thickening of the urinary bladder measuring up to 0.9 cm in thickness on the right on series 2, image 234 likely correlates with this patient bladder cancer. The prostate is mildly enlarged, measuring 3.6 cm inAP diameter by 4.8 cm in transverse diameter. BONES:Mild multilevel degenerative changes of the thoracolumbar spine. IMPRESSION: 1. 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 No acute aortic pathology identified. 2. 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 It previously measured 3.7cm on CT urogram from 2013. 3. 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 4. Nonvascular findings:- Mediastinal, bilateral hilar, and abdominal lymphadenopathy highly concerning for metastasis.- Asymmetric right urinary bladder wall thickening may correlate with this patient bladder cancer. Signed: Kim Hamilton MDReport Verified Date/Time: 11/05/2019 14:08:15 Reading Location: [facility] Reading Room [address] [place] [address] CT/CTA abdomen & pelvis - For [id number] 14:08:00Interface, External Ris In - 11/05/2019 2:10 PM CDTFINAL REPORT EXAM: CTA OFTHE THORACOABDOMINAL AORTA AND PELVIC ARTERIES INDICATION: AAA, monitoring COMPARISON: CT abdomen pelvis 08/10/2010, CT urogram to 08/25/2013, echocardiogram report 11/05/2019 TECHNIQUE: Multi-detector CT t echnology was employed. CTA Gated axial imaging of the chest, abdomen, and pelvis was performed after the administration of IV contrast. IV CONTRAST: 100 mL of Isovue-370 ORAL CONTRAST: None COMPLICATIONS: None RADIATION DOSE: Total DLP: 1200 mGy*cm Estimated effective dose: (DLP x 0.015 x size factor) mSv CTDIvol has been reviewed. It is below the limits set by the Radiation Protocol Committee (RPC). For optimization of anatomic evaluation,multiplanar reconstruction, maximum intensity projections, and advanced 3-D off-line postprocessing were performed on a dedicated stand-alone workstation under the direct supervision of the interpreting physician. FINDINGS:Potential study limitations: None. LINES/ TUBES: None. VASCULAR WITH ADVANCED 3-D OFF-LINE POSTPROCESSING: AORTIC VALVE:Aortic valve morphology is trileaflet and contains moderatecalcifications of the right coronary cusp. 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 The aortic arch is normal in size, measuring 2.9 cm in diameter. The proximal and mid ascending thoracic aorta are mildly dilated measuring up to 3.3 cm. The distal descending thoracic aorta is normal in size.There is no acute aortic pathology, such as dissection, intramural hematoma, or contained rupture. Aortic plaques: Scattered calcified and noncalcified atherosclerotic changes throughout the thoracic aorta, worse in the descending thoracic segment. There is a 5 mm no uncomplicated penetrating ulcer within the anterior wall of the mid ascending thoracic aorta on series 2, image 67. The arch vessel branching pattern is conventional. All of the arch branch vessels appear widely patent in their proximal portions. The innominate artery is markedly tortuous and ectatic measur ing up to 1.2 cm in diameter. Abdominal aortic aneurysm detail anatomy: Fusiform 5.8 x 5.5 cm aneurysm of the infrarenal abdominal aorta, which begins 5.2 cm below the right renal artery and extends down to just above the bifurcation. The aneurysm is associated with moderate amount of intraluminal thr ombus, which contains mild internal calcification, and resulting in 40% of intraluminal narrowing with a minimal lumen of 3.6 cm. There is a 10 mm penetrating ulcer within the aneurysm, at the level ofL5 vertebral body on series 3, image 169. The superior neck measures 2.6 cm and the inferior neck titus sures 3.2 cm. The length from the aortic bifurcation to the origin of the external iliac arteries is 5 cm. There is moderate angulation of the aneurysm. The remaining abdominal aorta is tortuous but normal in caliber. There is no acute aortic pathology . Aortic plaques: Moderate nonobstructing atherosclerotic changes throughout the abdominal aorta. Desizing Machine Operator Head End dimensions of the thoracic aortaare as follows: 2.4 x 2.9 cm at the aortic annulus4.2 x 3.9 cm at the sinuses of Valsalva (the sinotubular junction is preserved)4.7 cm at the proximal and mid ascending aorta3.9 cm at the distal ascending aorta2.9 cm at the mid transverse arch3.3 cm at the proximal and 3.4 cm at the distal descending thoracic aorta3.0 cm at the diaphragmatic hiatus. The abdominal aorta measures: 2.9 cm at the supramesenteric segment2.9 cm at the mesenteric segment2.6 cm at the renal segment5.8 x 5.5 cm at the mid infrarenal segment3.2 cm at the aortic bifurcation. The celiac axis, SMA, and DAVONTE are patent. There a re single renal arteries bilaterally, both of which appear patent. 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 There are mild to moderate nonobstructing atherosclerotic changes of the pelvic arteries. 2.6 cm at the right common iliac artery0.9 cm at the right external iliac artery1.7 cm at the left common iliac artery0.8 cm at the left external iliac artery NON VASCULAR FINDINGS:LUNGS AND AIRWAYS: Moderate bilateral centrilobular emphysema. No suspicious pulmonary nodules or masses. No consolidations. Airways are patent. PLEURA: The pleural spaces are clear.. HEART AND MEDIASTINUM: The thyroid gland is normal. Diffuse mediastinal and bilateral axillary lymphadenopathy. Forexample there is a 2 cm enlarged lymph node in the right lower paratracheal region (4R), a 3.0 x 1.4cm left lower paratracheal enlarged lymph node (4L), and a 1.7 cm subcarinal lymph node (level seven). The largest axillary lymph node measuring 1.5 cm on the right and 1.5 cm on the left. The main pulmonary artery is borderline in size measuring 3 cm in diameter. The cardiac chambers demonstrate normal atrioventricular and ventriculoarterial concordance, and systemic and pulmonary venous return. The cardiac chambers are normal in size. The coronary arteries have normal origins and courses. There are diffuse coronary calcifications identified, though this study was not optimized for coronary artery evaluation. There is no pericardial effusion. ABDOMEN:The liver, gallbladder, and pancreas appear normal. The spleen is mildly enlarged, measuring 17 cm in length in the craniocaudal dimension. The adrenal glands appear normal. Both kidneys are normal in size, shape, and density. Multiple bilateral renal cysts have not significantly changed since 2014. The largest measures 4.5 cm in the inferior left kidney. PELVIS:Right para-aortic, preaortic, and retroperitoneal lymphadenopathy. For example, there is a 2.2 x 1 cm right para-aortic lymph node on series 3, image 142. No free fluid or free air within the abdomen or pelvis. Diffuse diverticulosis throughout the colon without diverticulitis. The appendix is normal. Asymmetry wall thickening of the urinary bladder measuring up to 0.9 cm in thickness on the right on series 2, image 234 likely correlates with this patient bladder cancer. The prostate is mildly enlarged, measuring 3.6 cm in AP diameter by 4.8 cm in transverse diameter. BONES:Mild multilevel degenerative changes of the thoracolumbar spine. IMPRESSION: 1. 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 No acute aortic pathology identified. 2. 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 It previously measured 3.[address] urogram from 2014. 3. 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 4. Nonvascular findings:-Mediastinal, bilateral hilar, and abdominal lymphadenopathy highly concerning for metastasis.- Asymmetric right urinary bladder wall thickening may correlate with this patient bladder cancer. Signed: Kim Hamilton MDReport Verified Date/Time: 11/05/2019 14:08:15 Reading Location: [facility] Room [address] [place] [address] [facility] [id number] 14:08:00Interface, External Ris In - 11/05/2019 2:10 PM CDTFINAL REPORT EXAM: CTA OFTHE THORACOABDOMINAL AORTA AND PELVIC ARTERIES INDICATION: AAA, monitoring COMPARISON: CT abdomen pelvis 08/10/2010, CT urogram to 08/25/2013, echocardiogram report 11/05/2019 TECHNIQUE: Multi-detector CT technology was employed. CTA Gated axial imaging of the chest, abdomen, and pelvis was performed after the administration of IV contrast. IV CONTRAST: 100 mL of Isovue-370 ORAL CONTRAST: None COMPLICATIONS: None RADIATION DOSE: Total DLP: 1200 mGy*cm Estimated effective dose: (DLP x 0.015 x size factor) mSv CTDIvol has been reviewed. It is below the limits set by the Radiation Protocol Committee (RPC). For optimization of anatomic evaluation, multiplanar reconstruction, maximum intensity projections, and advanced 3-D off- line postprocessing were performed on a dedicated stand-alone workstation under the direct supervision of the interpreting physician. FINDINGS:Potential study limitations: None. LINES/ TUBES: None. VASCULAR WITH ADVANCED 3-D OFF-LINE POSTPROCESSING: AORTIC VALVE:Aortic valve morphology is trileaflet and contains moderatecalcifications of the right coronary cusp. 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 The aortic arch is normal in size, measuring 2.9 cm in diameter. The proximal and mid ascending thoracic aorta are mildly dilated measuring up to 3.3 cm. The distal descending thoracic aorta is normal in size.There is no acute aortic pathology, such as dissection, intramural hematoma, or contained rupture. Aortic plaques: Scattered calcified and noncalcified atherosclerotic changes throughout the thoracic aorta, worse in the descending thoracic segment. There is a 5 mm no uncomplicated penetrating ulcer within the anterior wall of the mid ascending thoracic aorta on series 2, image 67. The arch vessel branching pattern is conventional. All of the arch branch vessels appear widely patent in their proximal portions. The innominate artery is markedly tortuous and ectatic measuring up to 1.2 cm in diameter. Abdominal aortic aneurysm detail anatomy: Fusiform 5.8 x 5.5 cm aneurysm of the infrarenal abdominal aorta, which begins 5.2 cm below the right renal artery and extends down to just above the bifurcation. The aneurysm is associated with moderate amount of intraluminal thr ombus, which contains mild internal calcification, and resulting in 40% of intraluminal narrowing with a minimal lumen of 3.6 cm. There is a 10 mm penetrating ulcer within the aneurysm, at the level ofL5 vertebral body on series 3, image 169. The superior neck measures 2.6 cm and the inferior neck titus sures 3.2 cm. The length from the aortic bifurcation to the origin of the external iliac arteries is 5 cm. There is moderate angulation of the aneurysm. The remaining abdominal aorta is tortuous but normal in caliber. There is no acute aortic pathology . Aortic plaques: Moderate nonobstructing atherosclerotic changes throughout the abdominal aorta. Desizing Machine Operator Head End dimensions of the thoracic aortaare as follows: 2.4 x 2.9 cm at the aortic annulus4.2 x 3.9 cm at the sinuses of Valsalva (the sinotubular junction is preserved)4.7 cm at the proximal and mid ascending aorta3.9 cm at the distal ascending aorta2.9 cm at the mid transverse arch3.3 cm at the proximal and 3.4 cm at the distal descending thoracic aorta3.0 cm at the diaphragmatic hiatus. The abdominal aorta measures: 2.9 cm at the supramesenteric segment2.9 cm at the mesenteric segment2.6 cm at the renal segment5.8 x 5.5 cm at the mid infrarenal segment3.2 cm at the aortic bifurcation. The celiac axis, SMA, and DAVONTE are patent. There a re single renal arteries bilaterally, both of which appear patent. 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 There are mild to moderate nonobstructing atherosclerotic changes of the pelvic arteries. 2.6 cm at the right common iliac artery0.9 cm at the right external iliac artery1.7 cm at the left common iliac artery0.8 cm at the left external iliac artery NON VASCULAR FINDINGS:LUNGS AND AIRWAYS: Moderate bilateral centrilobular emphysema. No suspicious pulmonary nodules or masses. No consolidations. Airways are patent. PLEURA: The pleural spaces are clear.. HEART AND MEDIASTINUM: The thyroid gland is normal. Diffuse mediastinal and bilateral axillary lymphadenopathy. Forexample there is a 2 cm enlarged lymph node in the right lower paratracheal region (4R), a 3.0 x 1.4cm left lower paratracheal enlarged lymph node (4L), and a 1.7 cm subcarinal lymph node (level seven). The largest axillary lymph node measuring 1.5 cm on the right and 1.5 cm on the left. The main pulmonary artery is borderline in size measuring 3 cm in diameter. The cardiac chambers demonstrate normal atrioventricular and ventriculoarterial concordance, and systemic and pulmonary venous return. The cardiac chambers are normal in size. The coronary arteries have normal origins and courses. There are diffuse coronary calcifications identified, though this study was not optimized for coronary artery evaluation. There is no pericardial effusion. ABDOMEN:The liver, gallbladder, and pancreas appear normal. The spleen is mildly enlarged, measuring 17 cm in length in the craniocaudal dimension. The adrenal glands appear normal. Both kidneys are normal in size, shape, and density. Multiple bilateral renal cysts have not significantly changed since 2014. The largest measures 4.5 cm in the inferior left kidney. PELVIS:Right para-aortic, preaortic, and retroperitoneal lymphadenopathy. For example, there is a 2.2 x 1 cm right para-aortic lymph node on series 3, image 142. No free fluid or free air within the abdomen or pelvis. Diffuse diverticulosis throughout the colon without diverticulitis. The appendix is normal. Asymmetry wall thickening of the urinary bladder measuring up to 0.9 cm in thickness on the right on series 2, image 234 likely correlates with this patient bladder cancer. The prostate is mildly enlarged, measuring 3.6 cm in AP diameter by 4.8 cm in transverse diameter. BONES:Mild multilevel degenerative changes of the thoracolumbar spine. IMPRESSION: 1. 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 No acute aortic pathology identified. 2. 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 It previously measured 3.[address] urogram from 2014. 3. 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 4. Nonvascular findings:-Mediastinal, bilateral hilar, and abdominal lymphadenopathy highly concerning for metastasis.- Asymmetric right urinary bladder wall thickening may correlate with this patient bladder cancer. Signed: Kim Hmailtoneport Verified Date/Time: 11/05/2019 14:08:15 Reading Location: [facility] Reading Room [address] [place] [address] [facility][id number] 07:38:00 Test Item Value Reference Range Interpretation Comments POC-Creatinine (test code 1.7 mg/dL 0.6-1.3 H : TESTED AT [facility] = 1859) [address] [facility], [facility] [address]: Jewelsmith/Techni rigoberto ID = [id number] for IRVNI LOMBARDI POC-EGFR (test code = 40 mL/min/1.73M2 1860) Lab Interpretation (test Abnormal code = 75847-4) [id number] 07:38:00 Test Item Value Reference Range Interpretation Comments POC-CREATININE 1.7 mg/dL 0.6-1.3 H : TESTED AT [facility] (BEAKER) (test [address] DG code = 1859) [facility] 7 7030: Jewelsmith/Techni rigoberto ID = [id number] for IRVIN LOMBARDI POC-EGFR 40 mL/min/1.73M2 (BEAKER) (test code = 1860) TISSUE [id number] 14:55:00Surgical Pathology Report Case: [id number] Authorizing Provider: Brown Garcia MD Collected: 02/16/2018 1004 Ordering Location: [facility] PERIOPERATIVE Received: 02/16/2018 1117 SERVICES Pathologist: Nicolas Diaz MD Specimens: A) -Bladder Tumor, low posterior wall tumor B) - Bladder Tumor, right bladder wall tumor C) - Bladder Tumor, bladder dome A. URINARY BLADDER, LOW POSTERIOR WALL, BIOPSY: - MARKED CHRONIC INFLAMMATION WITH REACTIVE UROTHELIAL CHANGES - NEGATIVE FOR DY SPLASIA OR MALIGNANCY B. 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 [...] cm, submitted entirely in C1. CG/ew A-C. Performed.URINE CULTURE 2018-02-14 19:34:00 Test Item Value Reference Range Interpretation Comments CULTURE (BEAKER) ENTEROCOCCUS A >100,000 co l/mL (test code = 1095) FAECALIS Enterococ cus faecalis Ampicillin (test S code = 26) Linezolid (test code S = 40) Nitrofurantoin (test S code = 23) Tetracycline (test S code = 2) Vancomycin (test S code = 13) 50-59,000 col/mL skin floraURINALYSIS W/ [id number] 18:16:00 Test Item Value Reference Range Interpretation [...] = Occasional 1585) SOURCE(BEAKER) (test code = 5861) CBC W/PLT COUNT & AUTO [id number] 17:52:00 Test Item Value Reference Range Interpretation [...] Received comment: User comments: Slide comments:BASIC METABOLIC [id number] 17:40:00 Test Item Value Reference Range Interpretation [...] FOR DIALYSIS PATIEN TS. RAD, CHEST, 2 [id number] 16:22:00Reason for exam:->pre-op testingShould this be performed at the bedside?->NoFINAL REPORT Chest, PA and lateral. History: Preoperative. Comparison: 08/24/2017. Discussion: Cardiomegaly and thoracic aortic ectasia. The lungs are clear without evidence of consolidation or effusion. There are no acute osseous abnormalities. The soft tissues are unremarkable. IMPRESSION: No acute cardiopulmonary abnormality. Signed: Humberto Weaver MDReport Verified Date/ Time: 02/12/2018 16:22:15 Reading Location: [address] Radiology Reading Room TISSUE [id number] 17:10:00Surgical Pathology Report Case: [id number] Authorizing Provider: Brown Garcia MD Collected: 08/25/2017 1030 Ordering Location: [facility] PERIOPERATIVE Received: 08/25/2017 1434 SERVICES [...] NOT PRESENT Signing Pathologist Direct Phone Line: [phone] signed by Nicolas Diaz MD on 08/28/2017 at 5:10 PMThe focus of invasion on specimen B. Is into the lamina propria of one papillary stalk and consists of on 3-4 tiny cell clusters. A. 21843W. 54006X. 52576V. 44008Eceownbam neoplasm of urinary bladder A. Bladder tumor [...] to 0.4 cm. Submitted D1. CG/pl PerformedURINE [id number] 16:00:00 Test Item Value Reference Range Interpretation [...] comments: Slide comments:CBC W/PLT COUNT & AUTO [id number] 20:06:00 Test Item Value Reference Range Interpretation [...] (test code = 413) RAD, CHEST, 2 [id number] 16:22:00Reason for Exam:->bladder cancer, pre- op testingFINAL [...] MDReport Verified Date/Time: 08/23/2017 16:22:14 Reading Location: [address] Reading [facility] METABOLIC [id number] 16:10:00 Test Item Value Reference Range Interpretation [...] APPLICABLE FOR DIALYSIS PATIEN TS. URINALYSIS W/ [id number] 16:01:00 Test Item Value Reference Range Interpretation [...] = Rare 1574) SOURCE(BEAKER) (test code = 2795) [id number] 15:55:00 Test Item Value Reference Range Interpretation Comments PARTIAL THROMBOPLASTIN TIME 31.6 seconds 22.5-36.0 (BEAKER) (test code = 760) PROTHROMBIN TIME/[id number] 15:54:00 Test Item Value Reference Range Interpretation Comments PROTIME (BEAKER) (test code = 14.8 seconds 11.7-14.7 H 759) INR (BEAKER) (test code = 370) 1.2 <=5.9 RECOMMENDED COUMADIN/WARFARIN INR THERAPY RANGESSTANDARD DOSE: 2.0 - 3.0 Includes: PROPHYLAXIS forvenous thrombosis, systemic embolization; TREATMENT for venous thrombosis and/or pulmonary embolus.HIGH RISK: Target INR is 2.5-3.5 for patients with mechanical heart valves.[id number] 10:07:0032.2[facility] FfdwftrVUGTAMTVIJ1771-30-16 10:07:008.6[facility] KkhjodtWWIGAJQUZY2746-87-08 10:07:86604Epuhicjh IsqbnxmLWFGEHOQDM3559-24-02 10:07:0016.8[facility] JYWEDANCYL0917-26-22 10:07:0011.3[facility] BslnlazQRWUXOEKLM1589-35-25 10:07:00 4.00[facility] QdtrpspQTHNHOMJBD4675-09-69 10:07:0051.5[facility] 2017-05-29 10:07:0087.5[facility] MuucobeIWTGEDNORV5151-46-22 10:07:0035.0[facility] NzixgywLPGHBYEGNJ4612-86-41 10:07:00 Test Item Value Reference Range Interpretation Comments MCH (test code = MCH) 28.2 pg 27.0-31.0 [facility] EbfqlyxWBHJCWLMSN0788-41-15 10:07:001.8[facility] 2017-05-29 10:07:000.1[facility] CbmayyqCJFQUWFSOY4945-61-97 10:07:000.5[facility] SuosjciMLCPOVAWAO3430-29-71 10:07:003.5[facility] RrrpykcZSAZOLQSUF4709-61-92 10:07:0077.1[facility] RhjocxjQSBDFXDSNE6447-79-43 10:07:0018.1[facility] CSVVDGFNWM2193-25-84 10:07:0039.7[facility] VkwxiawSFISDMDDWI4524-97-07 10:07:00 1.0[facility] MtypaahOOQNNQMCUZ7352-76-43 10:07:009.3[facility] 2017-05-29 10:07:000.3[facility] VcvlvlxWIOCGASZYW9811-16-94 10:41:001.0[facility] PbnhoxqYWWZQAUFOE0005-91-62 10:41:002.0[facility] JvvkwxoXWRAMVZONJ5118-14-52 10:41:00 Test Item Value Reference Range Interpretation Comments Tot Cell Ct (test code = Tot Cell Ct) 100 1 [facility] ByncpnqBDKHAFHNWM7592-66-86 10:41:002.0[facility] 2017-05-28 10:41:001+ (05/28/17 5:41 AM)[facility] OjwwccuOJMOWXBKBK0817-85-29 10:41:00Moderate *ABN*(05/28/17 5:41 AM)[facility] EsacicgXFWWZMPQNP6366-88-65 10:41:001+ *ABN*(05/28/17 5:41 AM)[facility] KzokugiWNGOPLAHLA7830-85-81 10:41:001+ *ABN*(05/28/17 5:41 AM)[facility] XpcqgedPUZZSZZNJC6524-06-98 10:41:0042.8[facility] UnpwduuAEUKNHGLMF2878-82-59 10:41:0013.0[facility] WhtyrqnLKVHVMYXUG3013-88-59 10:41:000.5[facility] RodamtyFBGWSMRXAW4123-13-17 10:41:0082.0[facility] CTDUYHEYMM8042-71-06 10:41:000.0[facility] DttgruvSXJZZGJSMK7571-82-54 10:41:006.6 [facility] WvdvmacMMHZWKLBFO1563-13-46 10:41:001.0[facility] 2017-05-28 10:41:31468Cpyvgxrq VjhqyrwFQTTJDWIGT5427-00-78 10:41:0016.4[facility] QctarqgDKDOIRNHQH9430-21-42 10:41:00 Test Item Value Reference Range Interpretation Comments MCH (test code = MCH) 27.8 pg 27.0-31.0 [facility] EvrluyaJJJLADCNAO4429-38-96 10:41:0032.2[facility] 2017-05-28 10:41:0086.2[facility] AravmcfNWTZMSOXJS6255-48-13 10:41:0035.5[facility] CxttvwvLROGRIIOMI2814-28-03 10:41:008.2[facility] EdrqsgkZJLSFWVGLN1133-60-34 10:41:0011.4[facility] KsvpnpkJZCMLUCPDZ8481-61-09 10:41:004.13[facility] AGKRNRGUUI0912-98-29 10:41:0051.0[facility]annCHEM QZJAW1937-97-38 13:34:0068 [facility]annCHEM HQCKD0416-45-94 13:34:0024[facility]annCHEM PANEL 2017-05-27 13:34:79095Iyvvbagu HermannCHEM KYNLG6757-89-75 13:34:003.8[facility]annCHEM BIDTL1463-08-31 13:34:47845Fwluyjqt HermannCHEM TVYED4343-80-41 13:34:001.08[facility]annCHEM KUPDG4780-91-26 13:34:0020[facility]annCHE[facility] GMDMT1933-39-32 13:34:008.7[facility]annCHEM LHXYX4802-60-57 13:34:20481 [facility]annCHE[facility] FZXML5236-46-28 13:34:0014.8[facility] HermannHEMATOLOGY 2017-05-27 13:34:001.3[facility] GmisqupABVKVTZLCG3016-26-03 13:34:000.5[facility] HqomwfrFIEKLGLMSD6486-84-50 13:34:000.3[facility] KwzpncfMKOZAUCUYL3931-35-36 13:34:000.8[facility] FzxgjliOGKYVFPJKA4007-84-55 13:34:0010.9[facility] FZCGOZKBXK5022-26-75 13:34:0044.6[facility] VqdnmtaJPWDIPBJET6557-68-74 13:34:00 0.3[facility] BuqphtsSKHZPVEZUF4571-80-77 13:34:001+ *ABN*(05/27/17 8:34 AM) [facility] OdopobxTBHYAOZRRH5824-23-95 13:34:000.2[facility]annHEMATOLOGY 2017-05-27 13:34:0019.3[facility] JdrmwcgQCZIHGKYTR8893-38-75 13:34:00Normal (05/27/17 8:34 AM)[facility] LstusazUBZCDZDYRH5883-07-16 13:34:0078.6[facility] FpkzitkIETUPBPKRT8456-07-01 13:34:12000Umwdvwkw EsuwmkbUCQITQRUUK2944-88-13 13:34:008.5[facility] MbspacfQIRVMBEHWM6733-69-21 13:34:0033.0[facility] WFZLUWFNBM3685-05-53 13:34:0016.4[facility] RpjvojfAYVHMIUDSN3532-99-09 13:34:00 12.4[facility] WsecvyhYFDTGODEGL6919-98-90 13:34:0086.8[facility] HermannHEMATOLOGY 2017-05-27 13:34:0037.4[facility] FhvgqxbUKLHUBITEG9783-45-24 13:34:00 Test Item Value Reference Range Interpretation Comments MCH (test code = MCH) 28.7 pg 27.0-31.0 [facility] ElcxulwJSFJTGIRBJ5412-49-86 13:34:0056.8[facility]annHEMATOLOGY 2017-05-27 13:34:004.31[facility]BLOOD BANK SLQIMVP7981-27-59 06:34:00 Negative (05/27/17 1:34 AM)[facility] EHFTAGQ8746-27-57 06:25:00 Product available (05/27/17 1:25 AM)[facility]annCHEM QKYJS9862-68-50 04:22:00 49[facility]annCHEM MRCOX8320-16-87 04:22:11311Rcsjycpe HermannCHEM PANEL 2017-05-27 04:22:003.5[facility]annCHEM HVVPK6872-69-36 04:22:65821Giesidvt HermannCHEM OVEOG5617-99-22 04:22:0025[facility]annCHEM JHUWA1350-62-86 04:22:009.1[facility]annCHEM DTVTS1356-60-15 04:22:22605Bxuwaxwx HermannCHEM XXKGS4319-29-29 04:22:0025[facility]annCHEM QOMLQ0617-65-30 04:22:001.41 [facility]annCHE[facility] YWDSH8718-23-38 04:22:0012.5[facility] HermannHEMATOLOGY 2017-05-27 04:22:000.0[facility] FfdgjynRGRRCVQMIF4502-93-20 04:22:00Normal (05/26/17 11:22 PM)[facility] HospitalUhnpgduXBGOBXGBPF1785-88-07 04:22:000.0[facility] YhjgywsYHGBLNVSSY6490-53-12 04:22:00 Test Item Value Reference Range Interpretation Comments Tot Cell Ct (test code = Tot Cell Ct) 100 1 [facility] HospitalKrtwgjbXAMFUSFDGS1610-58-15 04:22:00Normal (05/26/17 11:22 PM)[facility] HospitalEaujwdcBFGOPZFAKJ5676-49-72 04:22:00 Test Item Value Reference Range Interpretation Comments INR (test code = INR) 1.13 1 0.85-1.17 [facility] HospitalWxtzfyyPIVZGHJLLK2043-72-15 04:22:00 Test Item Value Reference Range Interpretation Comments PT (test code = PT) 14.5 s 12.0-14.7 [facility] HospitalXcmydjhKJVUBQYPER1503-65-97 04:22:00 Test Item Value Reference Range Interpretation Comments PTT (test code = PTT) 33.1 s 22.9-35.8 [facility] [id number] 11:52:00 Test Item Value Reference Range Interpretation Comments HEMOGLOBIN A1C (BEAKER) (test code = 6.9 % 4.3-6.1 H 368) [id number] 11:12:00 Test Item Value Reference Range Interpretation Comments RPR SCREEN (BEAKER) (test code = Nonreactive Nonreactive 420) CBC W/PLT COUNT & AUTO [id number] 10:31:00 Test Item Value Reference Range Interpretation [...] (BEAKER) (test code = Present 1371) VITAMIN [id number] 08:02:00 Test Item Value Reference Range Interpretation Comments VITAMIN B12 (BEAKER) (test code = 346 pg/mL 213-816 774) TSH/FREE T4 IF [id number] 08:02:00 Test Item Value Reference Range Interpretation Comments THYROID STIMULATING HORMONE 1.37 uIU/mL 0.35-4.94 (BEAKER) (test code = 772) CREATINE KINASE (CK), TOTAL AND [id number] 07:55:00 Test Item Value Reference Range Interpretation Comments CREATINE KINASE TOTAL (BEAKER) 72 U/L 29-200 (test code = 380) CREATINE KINASE-MB (BEAKER) (test 0.5 ng/mL 0.0-6.6 code = 750) CREATINE KINASE-MB INDEX (BEAKER) 0.7 % (test code = 395) CK-MB Reference Range:<6.7 Normal6.7-10.0 Borderline>10.0 AbnormalTROPONIN [id number] 07:55:00 Test Item Value Reference Range Interpretation [...] acidosis, acute neurological disease, and persistent tachyarrhythmia.LIPID [id number] 07:39:00 Test Item Value Reference Range Interpretation [...] 130-159 High 160-189 Very High >=190BASIC METABOLIC [id number] 07:39:00 Test Item Value Reference Range Interpretation [...] DIALYSIS PATIEN TS. MR, MRA, BRAIN, WITHOUT [id number] 04:30:00Reason for exam:->Ischemic Stroke EvaluationFINAL REPORT MR, [...] MDReport Verified Date/Time: 01/29/2017 04:30:36 Reading Location: [address] Consult Reading Room MR, MRA, NECK, WITHOUT IV [id number] 04:30:00Reason for exam:- >Ischemic Stroke EvaluationFINAL REPORT [...] MDReport Verified Date/Time: 01/29/2017 04:30:36 Reading Location: [address] Consult Reading Room MR, BRAIN, WITHOUT [id number] 04:30:00Reason for exam:- >Ischemic Stroke EvaluationFINAL REPORT [...] MDReport Verified Date/Time: 01/29/2017 04:30:36 Reading Location: [address] Reading Room CHEM HQFYN8730-15-49 20:35:0054[facility]annCHEM GRMWP3184-00-34 20:35:0015.8[facility] HermannCHEM JEGXY8442-80-61 20:35:009.9[facility] HermannCHEM DUGOX8081-71-58 20:35:0027[facility] HermannCHEM UFJZE3099-95-15 20:35:53215 [facility]annCHEM FBOXU1315-79-65 20:35:0091[facility] HermannCHEM PANEL 2016-09-19 20:35:0018[facility] HermannCHEM RJTMK6965-57-26 20:35:38250Pdruldex [facility]annCHE[facility] QFAYW1277-34-51 20:35:001.31[facility] MountCHEM YIKDR3448-21-60 20:35:003.8Menerial [facility]
[2020-01-16 05:59] LABS: Absolute Lymphocytes (CBC) 67.3 K/uL (0.7-4.9); Basophils % 0.5 % (0-1.3); Lymphocytes % 86.1 % (15.3-44.8); MPV 8.6 fL (7.6-11.3); RBC Red Blood Cell Count 1.66 M/uL (4.33-5.43)
[2020-01-16 06:05] LABS: Protime INR 1.6
[2020-01-16] MEDS ORDERED: NA CHLORIDE 0.9% 1,000 ML ONE (06:06)
[2020-01-16 06:09] LABS: Hematocrit 18.5 % (39.6-49.0)
[2020-01-16 06:22] LABS: Magnesium 2.1 mg/dL (1.8-2.4); Potassium 3.8 mmol/L (3.5-5.1); Troponin (Emerg Dept Use Only) 0.07 ng/mL (0.0-0.045)
--- NOTE | 2020-01-16 06:40 | ER ---
Nurse's Notes [facility] Name: Duke Marin III Age: 75 yrs Sex: Male : 1945 Arrival Date: 01/16/2020 Time: 05:28 Bed 14 Private MD: Diagnosis: Urinary tract infection, site not specified;Anemia, unspecified;Leukocytosis;Altered mental status, unspecified Presentation: 01/15 05:25 Chief complaint: EMS states: Toned to pt's home, reported pt was acting off and ea noticed he was weaker. stated last well known was yesterday morning. Pt has previous history of stroke with left sided deficits. Care prior to arrival: 18 G to right wrist, NS 250 bolus given per EMS. 05:49 Onset of symptoms was January 15, 2020. ea 05:59 Coronavirus screen: At this time, the client does not indicate any symptoms associated ea with coronavirus-19. Ebola Screen: No symptoms or risks identified at this time. Initial Sepsis Screen: Does the patient meet any 2 criteria? RR > 20 per min. Does the patient have a suspected source of infection? No. Patient's initial sepsis screen is negative. Risk Assessment: Do you want to hurt yourself or someone else? Patient reports no desire to harm self or others. 05:59 Acuity: PARAG 3 ea 05:59 Method Of Arrival: EMS: [facility] ea Historical: - Allergies: 06:20 Ephedrine Sulfate; ea 06:20 Pseudoephedrine; ea - PMHx: 06:20 SVT; Hypertension; enlarged aorta; CVA; CLL; Bladder cancer; Atrial Fib; ea - Immunization history:: Adult Immunizations up to date. - Family history:: not pertinent. - Social history:: Smoking status: Patient denies any tobacco usage or history of. - Hospitalizations: : Patient was recently seen at. Screenin:50 Abuse screen: Denies threats or abuse. Nutritional screening: No deficits noted. ea Tuberculosis screening: No symptoms or risk factors identified. Fall Risk IV access (20 points). 06:10 The patient has not been NPO before screening. The patient is alert, able to follow ea commands. The patient does not exhibit slurred or garbled speech The patient is not exhibiting difficulty speaking. The patient does not exhibit difficulty understanding words. The patient is able to swallow own secretions with no drooling or need for suction. Patient tolerated one teaspoon of water. No drooling, immediate coughing, gurgling, or clearing of the throat was noted. The patient tolerated 90mL of water. No drooling, immediate coughing, gurgling, or clearing of the throat was noted. The patient passed the bedside swallow screening. Oral medications may be given as ordered. Contact Physician for further diet orders. Assessment: 05:28 Reassessment: Pt at CT. ea 05:38 General: Appears in no apparent distress. Behavior is appropriate for age. Pain: Denies ea pain. Neuro: Level of Consciousness is awake, alert, obeys commands, Oriented to person, place, situation, Moves all extremities. Speech is normal, Facial droop on left, Intact. Respiratory: Airway is patent Respiratory effort is even, labored, Respiratory pattern is symmetrical, tachypnea. Derm: Skin is dry, Skin is pale, Skin temperature is warm Bruising that is dark purple, on right arm and left arm. 06:58 Reassessment: Patient and/or family updated on plan of care and expected duration. Pain ea level reassessed. Patient is alert, oriented x 3, equal unlabored respirations, skin warm/dry/pink. 08:20 Reassessment: Patient appears in no apparent distress at this time. Patient and/or ph family updated on plan of care and expected duration. Pain level reassessed. Patient is alert, oriented x 3, equal unlabored respirations, skin warm/dry/pink. Vital Signs: 05:49 BP 122 / 60; Pulse 82; Resp 32; Temp 99.3; Pulse Ox 96% on R/A; ea 06:37 BP 121 / 64; Pulse 77; Resp 25; Temp 99.5; Pulse Ox 97% ; ea 08:21 BP 91 / 47; Pulse 72; Resp 20; Pulse Ox 95% on R/A; ph ED Course: :28 Patient arrived in ED. mw2 05:28 Isidro Wilburn MD is Attending Physician. rn 05:38 Patient placed in an exam room, on a stretcher, on lunchroom monitor, on pulse oximetry. ea 05:45 Radha Ferraro, CHRISTOPHER is Primary Nurse. ea 05:45 bus monitor on. Pulse ox on. NIBP on. ea 05:54 CT Stroke Brain w/o Contrast In Process Unspecified. EDMS 05:56 Patient has correct armband on for positive identification. Placed in gown. Bed in low ea position. Call light in reach. Side rails up X2. Adult w/ patient. 05:59 Triage completed. ea 06:12 Urine Microscopic Only Sent. ds4 06:16 Stroke CXR 1 View In Process Unspecified. EDMS 06:17 Maintain EMS IV. Dressing intact. Good blood return noted. Site clean \T\ dry. Gauge \T\ ea site: 18 G right wrist. 06:38 Javi Looney MD is Hospitalizing Provider. rn 08:50 No provider procedures requiring assistance completed. Patient admitted, IV remains in ph place. Administered Medications: 06:17 Drug: NS 0.9% 500 ml Route: IV; Rate: bolus; Site: right wrist; ea 06:58 Follow up: Response: No adverse reaction; IV Status: Completed infusion; IV Intake: ea 500ml 06:57 Drug: Rocephin 1 grams Route: IV; Rate: calculated rate; Site: right wrist; ea 07:09 Follow up: Response: No adverse reaction; IV Status: Completed infusion; IV Intake: 10mlea Intake: 06:58 IV: 500ml; Total: 500ml. ea 07:09 IV: 10ml; Total: 510ml. ea Outcome: 06:39 Decision to Hospitalize by Provider. rn 08:53 Admitted to ER Hold. Please see [facility] for further documentation. ph 08:53 Condition: stable 08:53 Instructed on the need for admit. 15:18 Patient left the ED. ph Signatures: Dispatcher [employer] EDMS Isidro Wilburn MD MD rn Swanson, Donovan ds4 Lorrie Morales RN RN ph Antunez, Elena RN RN Benjamin Jung mw2
--- NOTE | 2020-01-16 06:41 | EDPHYS ---
Physician Documentation [facility] Name: Duke Marin III Age: 75 yrs Sex: Male : 1945 Arrival Date: 01/16/2020 Time: 05:28 Bed 14 Private MD: ED Physician Isidro Wilburn HPI: 01/15 05:43 This 75 yrs old Male presents to ER via Unassigned with complaints of AMS. rn 05:43 The patient presents with confusion, decreased responsiveness. Onset: The rn symptoms/episode began/occurred yesterday. Possible causes: unknown. Current symptoms: In the emergency department the patient's symptoms have improved. The patient has experienced similar episodes in the past. The patient has been recently seen by a physician:. reports woke up yesterday feeling "strange", later in day "fell slowly to ground", without trauma or head injury. Tonight noticed "breathing funny" while asleep so called 911. reports seemed confused, but speech at baseline, and left sided weakness is baseline. No fever/vomiting/diarrhea. Also reports strong smell to urine, has urinary problems, and wears diapers. . Historical: - Allergies: 06:20 Ephedrine Sulfate; ea 06:20 Pseudoephedrine; ea - PMHx: 06:20 SVT; Hypertension; enlarged aorta; CVA; CLL; Bladder cancer; Atrial Fib; ea - Immunization history:: Adult Immunizations up to date. - Family history:: not pertinent. - Social history:: Smoking status: Patient denies any tobacco usage or history of. - Hospitalizations: : Patient was recently seen at. ROS: 05:43 Constitutional: Negative for fever, chills, and weight loss, Eyes: Negative for injury, rn pain, redness, and discharge, ENT: Negative for injury, pain, and discharge, Neck: Negative for injury, pain, and swelling, Cardiovascular: Negative for chest pain, palpitations, and edema, Respiratory: Negative for shortness of breath, cough, wheezing, and pleuritic chest pain, Abdomen/GI: Negative for abdominal pain, nausea, vomiting, diarrhea, and constipation, Back: Negative for injury and pain, : + strong smell of urine MS/Extremity: Negative for injury and deformity, Skin: Negative for injury, rash, and discoloration, Neuro: Negative for headache, numbness, tingling, and seizure. Exam: 05:43 Constitutional: This is a well developed, well nourished patient who is awake, alert, rn seems anxious Head/Face: Normocephalic, atraumatic. ENT: dry MM Cardiovascular: Regular rate and rhythm. No pulse deficits. Respiratory: Mild tachypnea Abdomen/GI: soft, non-tender Skin: Warm, dry, no cyanosis MS/ Extremity: Pulses equal, no cyanosis. Neuro: Awake and alert, GCS 15, oriented to person, place, time, and situation. + left lower facial weakness, + 4/5 strength LLE 5/5 RUE/RLE/LUE. 06:56 ECG was reviewed by the Attending Physician. rn Vital Signs: 05:49 BP 122 / 60; Pulse 82; Resp 32; Temp 99.3; Pulse Ox 96% on R/A; ea 06:37 BP 121 / 64; Pulse 77; Resp 25; Temp 99.5; Pulse Ox 97% ; ea 08:21 BP 91 / 47; Pulse 72; Resp 20; Pulse Ox 95% on R/A; ph MDM: 05:28 Patient medically screened. rn 06:13 ED course: No acute findings on CT head. rn 06:36 Differential Diagnosis: CVA, electrolyte abnormality, intracranial bleed, sepsis, UTI, rn volume depletion, leukemia, anemia. Data reviewed: vital signs, nurses notes, lab test result(s), EKG, radiologic studies, CT scan, and as a result, I will admit patient. Counseling: I had a detailed discussion with the patient and/or guardian regarding: the historical points, exam findings, and any diagnostic results supporting the discharge/admit diagnosis, lab results, radiology results, the need for further work-up and treatment in the hospital. Admission orders: after a detailed discussion of the patient's condition and case, the admit orders are written by me. ED course: Pt with elevated WBC and hemoglobin 5.8, hemoccult neg, states known elevated WBC and anemia, sees Dr. Kearney, was due for "iron shot" today at 3 pm. Denies blood in stool or hematemesis. + UTI and consistent with his slow decline as opposed to a stroke. No new neurological symptoms. . 06:53 ED course: Consulted with Dr. Looney, will admit with blood transfusion, abx, rn consultation with Dr. Kearney. . 01/15 05:40 Order name: CPK; Complete Time: 06:29 rn 01/15 05:40 Order name: Magnesium rn 01/15 05:40 Order name: Troponin (emerg Dept Use Only) rn 01/15 05:40 Order name: Basic Metabolic Panel rn 01/15 05:40 Order name: CBC with Diff rn 01/15 05:40 Order name: Protime (+inr) rn 01/15 05:40 Order name: Ptt, Activated rn 01/15 05:40 Order name: Urine Microscopic Only rn 01/15 06:06 Order name: Protime (+INR); Complete Time: 06:29 EDMS 01/15 06:06 Order name: PTT, Activated Partial Thromb; Complete Time: 06:29 EDMS 01/15 06:10 Order name: CBC with Automated Diff EDMS 01/15 06:13 Order name: Urine Dipstick--Ancillary (enter results) ds4 01/15 06:22 Order name: Basic Metabolic Panel; Complete Time: 06:29 EDMS 01/15 06:22 Order name: Troponin (Emerg Dept Use Only); Complete Time: 06:29 EDMS 01/15 05:40 Order name: CT Stroke Brain w/o Contrast rn 01/15 05:40 Order name: Stroke CXR 1 View rn 01/15 06:22 Order name: Magnesium; Complete Time: 06:29 EDMS 01/15 06:38 Order name: Glucose, Ancillary Testing; Complete Time: 06:40 EDMS 01/15 06:42 Order name: Occult Blood--Ancillary eb 01/15 06:42 Order name: Urine Dipstick-Ancillary; Complete Time: 06:49 EDMS 01/15 06:45 Order name: Bb Add On eb 01/15 06:53 Order name: Type And Screen rn 01/15 07:08 Order name: COVID-19 ea 01/15 07:11 Order name: Urine Microscopic Only; Complete Time: 07:13 EDMS 01/15 08:23 Order name: CORONAVIRUS EDMS 01/15 08:44 Order name: Occult Blood--Ancillary EDMS 01/15 09:09 Order name: SARS-COV-2 RT PCR EDMS 01/15 10:44 Order name: Type and Screen EDMS 01/15 05:40 Order name: EKG; Complete Time: 05:42 rn 01/15 05:40 Order name: Accucheck; Complete Time: 06:29 rn 01/15 05:40 Order name: Cardiac monitoring; Complete Time: 05:49 rn 01/15 05:40 Order name: EKG - Nurse/Tech; Complete Time: 05:49 rn 01/15 05:40 Order name: IV Saline Lock; Complete Time: 05:49 rn 01/15 05:40 Order name: Labs collected and sent; Complete Time: 05:49 rn 01/15 05:40 Order name: NPO; Complete Time: 05:49 rn 01/15 05:40 Order name: O2 Per Protocol; Complete Time: :49 rn 01/15 05:40 Order name: O2 Sat Monitoring; Complete Time: 05:49 rn 01/15 05:40 Order name: Stroke Swallow Screen; Complete Time: 06:18 rn 01/15 05:40 Order name: Urine Dipstick-Ancillary (obtain specimen); Complete Time: 06:11 rn EC:56 Rate is 81 beats/min. Rhythm is regular. QRS [place] is Normal. ID interval is normal. QRS rn interval is normal. QT interval is prolonged at 518 msec. No Q waves. T waves are Normal. No ST changes noted. Clinical impression: NSR w/ Non-specific ST/T Changes. Interpreted by me. Reviewed by me. Administered Medications: 06:17 Drug: NS 0.9% 500 ml Route: IV; Rate: bolus; Site: right wrist; ea 06:58 Follow up: Response: No adverse reaction; IV Status: Completed infusion; IV Intake: ea 500ml 06:57 Drug: Rocephin 1 grams Route: IV; Rate: calculated rate; Site: right wrist; ea 07:09 Follow up: Response: No adverse reaction; IV Status: Completed infusion; IV Intake: 10mlea Disposition: 01/16/20 06:39 Hospitalization ordered by Javi Looney for Inpatient Admission. Preliminary diagnosis are Urinary tract infection, site not specified, Anemia, unspecified, Leukocytosis, Altered mental status, unspecified. - Bed requested for Telemetry/MedSurg (Inpatient). - Status is Inpatient Admission. ph - Condition is Stable. - Problem is new. - Symptoms have improved. Signatures: Dispatcher [employer] EDMS Isidro Wilburn MD MD rn Hall, Patricia, RN RN ph Antunez, Elena, RN RN Lucille Mills Corrections: (The following items were deleted from the chart) 08:53 06:39 Hospitalization Ordered by Javi Looney MD for Inpatient Admission. Preliminary eb diagnosis is Urinary tract infection, site not specified; Anemia, unspecified; Leukocytosis; Altered mental status, unspecified. Bed requested for Telemetry/MedSurg (Inpatient). Status is Inpatient Admission. Condition is Stable. Problem is new. Symptoms have improved. rn 14:30 08:53 01/16/2020 06:39 Hospitalization Ordered by Javi Looney MD for Inpatient eb Admission. Preliminary diagnosis is Urinary tract infection, site not specified; Anemia, unspecified; Leukocytosis; Altered mental status, unspecified. Bed requested for [facility] ER HOLD. Status is Inpatient Admission. Condition is Stable. Problem is new. Symptoms have improved. eb 15:18 14:30 01/16/2020 06:39 Hospitalization Ordered by Javi Looney MD for Inpatient ph Admission. Preliminary diagnosis is Urinary tract infection, site not specified; Anemia, unspecified; Leukocytosis; Altered mental status, unspecified. Bed requested for Telemetry/MedSurg (Inpatient). Status is Inpatient Admission. Condition is Stable. Problem is new. Symptoms have improved. eb
[2020-01-16 06:42] LABS: Urine Specific Gravity 1.015 (1.005-1.030)
[2020-01-16 06:43] LABS: Urine Blood 2+ (NEG); Urine Glucose NEGATIVE (NEG)
[2020-01-16 06:44] LABS: Urine pH 6.5 (5.0-7.0)
[2020-01-16 06:45] LABS: Urine Protein 2+ (NEG)
[2020-01-16] MEDS ORDERED: CEFTRIAXONE/SWI 1gm 1 GM/10 ML SYR ONE (07:08)
[2020-01-16 07:11] LABS: Urine Bacteria LOADED /HPF (NONE SEEN)
--- NOTE | 2020-01-16 07:16 | RAD REPORT ---
EXAM DESCRIPTION: Cat Single View01/16/2020 6:17 am CLINICAL HISTORY: Cardiomegaly/left-sided weakness COMPARISON: 2018 FINDINGS: The lungs appear clear of acute infiltrate. The heart is mildly enlarged. Right hemidiaph ragm is elevated. Aorta is tortuous/ectatic
[2020-01-16 07:23] LABS: Blood Morphology Comment NOTED (NOT SEEN); Macrocytosis 2+; Platelet Estimate ADEQ
[2020-01-16] MEDS ORDERED: ACETAMINOPHEN 500 MG TAB PO PRN (08:44)
[2020-01-16] MEDS ORDERED: ONDANSETRON 4 MG/2 ML VIAL IV PRN (08:44)
[2020-01-16 10:58] VITALS: BMI 32.6
--- NOTE | 2020-01-16 14:11 | RAD REPORT ---
EXAM DESCRIPTION: CT - Ct Stroke Brain Wo Cont - 01/16/2020 6:53 am ADDENDUM #1 Receipt of report is confirmed by Dr. Wilburn at 6:14 AM 01/16/2020. Electronically signed by: Ashtyn Rawls MD 01/16/2020 7:33 AM [employer] End of Addendum EXAM DESCRIPTION: CT Head Without Intravenous Contrast CLINICAL HISTORY: CONFUSED TECHNIQUE: Axial computed tomography images of the head/brain without intravenous contrast. Sagitt al and coronal reformatted images were created and reviewed. This CT exam was performed using one o r more of the following dose reduction techniques: automated exposure control, adjustment of the mA and/or kV according to patient size, and/or use of iterative reconstruction technique. COMPARISON: 07/02/2019 FINDINGS: Limitations: There is significant artifact limiting assessment of the posterior fossa an d occipital lobes. Brain: There is age related cortical atrophy and periventricular white matter hypodensity most co nsistent with chronic small ischemic change. No acute infarct, hemorrhage or mass. Stable encephalomalacia noted in the right basal ganglia and parietal occipital lobe consiste nt with old infarcts. Midline shift: None. Ventricles: No abnormality noted. Bones/joints: No acute fracture or osseous destruction. Soft tissues: Visualized portions appear normal. Vasculature: No acute abnormality noted. Sinuses: No layering fluid in the visualized portions of the paranasal sinuses. Mastoid air cells: No mastoid effusion. Orbits: Visualized portions appear normal. IMPRESSION: Stable chronic changes. No acute disease. Electronically signed by: Ashtyn Rawls MD 01/16/2020 6:03 AM [employer] HELPER Due to temporary technical issues with the PACS/Fluency reporting system, reports are being signed by the in house radiologists without review as a courtesy to insure prompt reporting. The interpreting radiologist is fully responsible for the content of the report.
--- NOTE | 2020-01-16 14:48 | P.HP ---
Certification for Inpatient Patient admitted to: Inpatient With expected LOS: >2 Midnights Patient will require the following post-hospital care: None Practitioner: I am a practitioner with admitting privileges, knowledge of patient current condition, hospital course, and medical plan of care. Services: Services provided to patient in accordance with Admission requirements found in Title 42 Section 412.3 of the Code of Federal Regulations Patient History Date of Service: 01/16/20 Primary Care Provider: Dr. Looney(He asked the Hospitalist to take the patient) Reason for admission: Fatigue History of Present Illness: 75-year-old female with multiple medical problems including hypertension, history CVA, CLL, history of bladder cancer, atrial fibrillation on chronic anti coagulation therapy. I was asked to see the patient who sees Dr. Looney. He was heading out of town. Patient reports feeling tired. There was some reports of some confusion. He denies any significant chest pain, shortness of breath. reports that the patient woke up feeling strange and feeling down. He was sent to the ER for fu rther evaluation. The patient reports no nausea, vomiting, or diarrhea. Some urinary complaints noted In the ER patient evaluated. Chest x-ray unremarkable. CT showed no evidence of stroke. Patient was found to have UTI. Patient also found to be severely anemic. Patient with CLL. Patient admitted for further evaluation and treatment. Patient started on antibiotic therapy. Patient has received transfusion. Allergies meperidine [From Demerol] Allergy (Verified 01/16/17 23:29) Unknown pseudoephedrine Allergy (Verified 01/16/17 23:29) unknown Home medications list reviewed: Yes Home Medications: Rosuvastatin [Crestor*] 10 mg PO DAILY 04/25/14 Aspirin [Adult Low Dose Aspirin EC] 81 mg PO BID 01/03/17 Clopidogrel Bisulfate [Plavix*] 75 mg PO DAILY 01/03/17 cloNIDine HCL [Catapres*] 0.1 mg PO QID PRN #60 tab 01/16/17 Matzim 360 mg PO DAILY 01/17/17 Apixaban [Eliquis *] 2.5 mg PO BID #0 tablet 01/28/17 Clopidogrel Bisulfate [Plavix*] 75 mg PO DAILY tablet 01/28/17 Cranberry Fruit Extract 200 mg PO DAILY #0 cap 01/28/17 Diltiazem Cd [Cardizem Cd*] 240 mg PO DAILY cap 01/28/17 Melatonin [Melatonin*] 3 mg PO BEDTIME PRN PRN tablet 01/28/17 Nebivolol HCl [Bystolic*] 10 mg PO DAILY tab 01/28/17 Ondansetron [Zofran (Odt)*] 4 mg PO Q6H PRN tab 01/28/17 Rosuvastatin [Crestor*] 10 mg PO BEDTIME tab 01/28/17 Tamsulosin [Flomax*] 0.4 mg PO BEDTIME cap 01/28/17 lisinopriL [Prinivil*] 40 mg PO BID tab 01/28/17 Diltiazem HCl [Cartia Xt] 240 mg PO 01/16/20 Nebivolol HCl [Bystolic] 20 mg PO DAILY 01/16/20 - Past Medical/Surgical History Diabetic: No -: Hypertension -: COPD -: SVT -: Diabetes mellitus type 2 -: AAA -: History of bladder cancer -: History CVA -: Atrial fibrillation -: CLL -: REMOVAL OF THORACIC HEMATOMA -: bladder resection x2 -: LAMINECTOMY Psychosocial/ Personal History: Patient is - Family History Father History Unknown: Yes -: Cancer - Social History Smoking Status: Unknown if ever smoked Alcohol use: Yes CD- Drugs: No Caffeine use: Yes Place of Residence: Home Review of Systems General: Weakness, Malaise, As per HPI Eyes: Unremarkable ENT: Unremarkable Respiratory: Unremarkable Cardiovascular: Unremarkable Gastrointestinal: Unremarkable Genitourinary: As per HPI Musculoskeletal: Unremarkable Integumentary: Unremarkable Neurological: Weakness, As per HPI Lymphatics: Unremarkable Physical Examination - Vital Signs Temperature: 98.7 F Blood Pressure: 95/51 Pulse: 69 Respirations: 18 Pulse Ox (%): 100 - Physical Exam General: Alert, In no apparent distress, Oriented x3, Cooperative HEENT: Atraumatic, Other (Dry mucous membranes) Neck: Supple Respiratory: Clear to auscultation bilaterally, Normal air movement Cardiovascular: Normal pulses, Regular rate/rhythm Gastrointestinal: Normal bowel sounds, Soft and benign, Non-distended, No tenderness, No masses, No rebound, No guarding Musculoskeletal: No erythema, No tenderness, No warmth Integumentary: No tenderness/swelling, No erythema, No warmth, No cyanosis Neurological: Normal speech, Normal strength at 5/5 x4 extr, Normal tone, Normal affect - Studies Laboratory Data (last 24 hrs) 01/16/20 05:40: PT 18.7 H, INR 1.60, APTT 27.7 01/16/20 05:40: WBC 78.2 H*, Hgb 5.8 L*, Hct 18.5 L*, Plt Count 179 01/16/20 05:40: Sodium 141, Potassium 3.8, BUN 28 H, Creatinine 1.94 H, Glucose 219 H, Magnesium 2.1 Assessment and Plan - Plan Impression: Toxic encephalopathy secondary to UTI Fatigue secondary to severe anemia complicated with CLL Hypertension Diabetes mellitus type 2 [id number]-mjbyfvcih History of atrial fibrillation History CVA Plan: Toxic encephalopathy secondary to UTI: Patient was admitted. Patient on Rocephin. Continue medication. Will obtain blood and urine culture results. Patient has significant improved. Blood pressure better. Continue IV fluids. Will monitor electrolytes closely. Accu-Cheks in place with sliding scale. Will check A1c. Patient received transfusion. Will discuss with hematology. Anticipate improvement over the next 48 hr. Fatigue secondary to severe anemia complicated with CLL: Patient received 2 units of packed red blood cells. Maintain hemoglobin above 7.0. Will monitor closely. Will discuss further with Hematology. Hypertension: Blood pressure low likely from dehydration. Restart blood pressure medication once more stable. Hyperglycemia suspect Diabetes mellitus type 2 whh-rzuoqwa-xcnvpxegk: Patient appears to have diabetes. Hyperglycemia noted. Will monitor Accu-Cheks. Obtain A1c. History of atrial fibrillation/CVA: Patient will continue with aspirin, Plavix. Will provide folic acid. Continue Crestor. Advanced care planning address in detail. 30 min noted. Patient wishes to be full code. Patient appears wanting to go home at discharge. Discharge Plan: Home Plan to discharge in: 72 Hours - Advance Directives Does patient have a Living Will: No Does patient have a Durable POA for Healthcare: Yes - Code Status/Comfort Care Code Status Assessed: Yes (Patient is full code) Time Spent Managing Pts Care (In Minutes): 55
[2020-01-16] MEDS ORDERED: D50W 25 GM/50 ML SYRINGE IV PRN (14:54)
[2020-01-16] MEDS ORDERED: GLUCAGON 1 MG/VIAL IM PRN (14:54)
[2020-01-16] MEDS ORDERED: MELATONIN 3 MG TABLET PO PRN (14:55)
[2020-01-16] MEDS: NA CHLORIDE 0.9% 1,000 ML IV SCH ×2 (15:41→18:44)
[2020-01-16] MEDS: INSULIN -REGULAR HUMAN 50 UNIT/0.5 ML ML SQ SCH ×2 (15:42→21:00)
[2020-01-16] MEDS ORDERED: PNEUMOCOCCAL VACCINE 0.5 ML IMVAC ONE (17:00)
[2020-01-16] MEDS ORDERED: INFLUENZA VACCINE (for 3y+) 0.5 ML DOSE IMVAC ONE (17:00)
[2020-01-16] MEDS: HEPARIN 5000 UNIT/ML 1 ML VIAL SQ SCH (21:00)
[2020-01-16] MEDS: CEFTRIAXONE/SWI 1gm 1 GM/10 ML SYR IV SCH (22:25)
[2020-01-17] MEDS ORDERED: DIPHENHYDRAMINE 25 MG TAB/CAP PO ONE (01:10)
[2020-01-17] MEDS ORDERED: NA CHLORIDE 0.9% 250 ML ONE ×3 (01:37→15:51)
[2020-01-17] MEDS: NA CHLORIDE 0.9% 1,000 ML IV SCH ×3 (04:44→14:44)
[2020-01-17] MEDS ORDERED: FUROSEMIDE 20 MG/ 2ML VIAL IV ONE ×3 (04:52→20:00)
[2020-01-17] MEDS: ASPIRIN EC 81 MG TAB PO SCH (08:34)
[2020-01-17] MEDS: THIAMINE HCL 100 MG TABLET PO SCH (08:35)
[2020-01-17] MEDS: FOLIC ACID 1 MG TABLET PO SCH (08:35)
[2020-01-17] MEDS: CLOPIDOGREL 75 MG TABLET PO SCH (08:35)
[2020-01-17] MEDS: INSULIN -REGULAR HUMAN 50 UNIT/0.5 ML ML SQ SCH ×4 (08:36→21:00)
[2020-01-17] MEDS: CEFTRIAXONE/SWI 1gm 1 GM/10 ML SYR IV SCH ×2 (08:36→22:24)
[2020-01-17] MEDS: CRANBERRY FRUIT EXTRACT 200 MG CAP PO SCH (08:36)
--- NOTE | 2020-01-17 08:55 | P.PN ---
Subjective Date of Service: 01/17/20 Primary Care Provider: Dr. Looney(He asked the Hospitalist to take the patient) Chief Complaint: Fatigue Subjective: Improving (Patient overall improved. Blood pressure also improved.) Physical Examination - Vital Signs Temperature: 97 F Blood Pressure: 149/69 Pulse: 80 Respirations: 18 Pulse Ox (%): 94 - Physical Exam General: Alert, In no apparent distress, Oriented x3, Cooperative HEENT: Atraumatic Neck: Supple Respiratory: Clear to auscultation bilaterally, Normal air movement Cardiovascular: Normal pulses, Regular rate/rhythm Gastrointestinal: Normal bowel sounds, No tenderness, No masses, No rebound, No guarding Musculoskeletal: No erythema, No tenderness, No warmth Integumentary: No erythema, No warmth, No cyanosis Neurological: Normal speech, Normal strength at 5/5 x4 extr, Normal tone, Normal affect - Studies Laboratory Data (last 24 hrs) 01/16/20 05:40: WBC 78.2 H*, Hgb 5.8 L*, Hct 18.5 L*, Plt Count 179 Microbiology Data (last 24 hrs): 01/16/20 06:42 Stool Occult Blood - Final Medications List Reviewed: Yes Assessment & Plan Discharge Plan: Home Plan to discharge in: 24 Hours Physician Review Additional Text: Impression: Toxic encephalopathy secondary to UTI, urine culture positive for Gram-negative rods. Fatigue secondary to severe anemia complicated with CLL Hypertension with hypotension Hyperglycemia suspect Diabetes mellitus type 2 [id number]-kzuplqouy History of atrial fibrillation/CVA Plan: Toxic encephalopathy secondary to UTI, urine culture positive for Gram-negative rods: Patient appears back to baseline. Blood pressure also improved. Will adjust IV fluids. Dietary to address daily needs. Patient on 2nd unit of blood. Await H&H after this. Urine culture shows Gram negative rods. Await urine culture results. Will have physical therapy assess ambulation. Review home medication. Will discuss further with his PCP and Hematology. Anticipate improvement over the next 24 hr with possible discharge at that time. Fatigue secondary to severe anemia complicated with CLL: Patient currently on 2nd unit of red blood cells. Patient has multiple antibodies. Repeat H&H after transfusion. Will discuss further with Hematology Hypertension with hypertension: Blood pressure low likely from dehydration and anemia. Restart blood pressure medication-Bystolic but place parameters. If blood pressure continues to rise and improved then will restart his other medication diltiazem. Hyperglycemia suspect Diabetes mellitus type 2 hym-sffrkcj-rxvexcgpy: Patient appears to have diabetes. Hyperglycemia noted. Will monitor Accu-Cheks. Obtain A1c. Will likely require medication at discharge. History of atrial fibrillation/CVA: Patient will continue with aspirin, Plavix. Will provide folic acid. Continue Crestor. Time Spent Managing Pts Care (In Minutes): 55
[2020-01-17] MEDS: HEPARIN 5000 UNIT/ML 1 ML VIAL SQ SCH ×2 (09:00→21:00)
[2020-01-17] MEDS ORDERED: NEBIVOLOL HCL 20 MG TABLET PO SCH ×2 (09:00)
[2020-01-17] MEDS: NEBIVOLOL HCL 5 MG TAB PO SCH (09:00)
[2020-01-17 10:54] LABS: Magnesium 2.5 mg/dL (1.8-2.4); Potassium 3.5 mmol/L (3.5-5.1)
[2020-01-17 11:08] LABS: Absolute Lymphocytes (CBC) 68.7 K/uL (0.7-4.9); Basophils % 0.1 % (0-1.3); Hematocrit 22.5 % (39.6-49.0); Lymphocytes % 87.3 % (15.3-44.8); MPV 8.9 fL (7.6-11.3); RBC Red Blood Cell Count 2.16 M/uL (4.33-5.43)
[2020-01-17] MEDS ORDERED: FUROSEMIDE 20 MG/ 2ML VIAL IV PRN (11:53)
[2020-01-17] MEDS: ROSUVASTATIN 10 MG TAB PO SCH (12:04)
[2020-01-17 14:45] LABS: RBC Red Blood Cell Count 2.27 M/uL (4.33-5.43)
--- NOTE | 2020-01-17 16:09 | PN ---
Date of Progress Note: 01/17/2020 Brief History Of Present Illness: Mr. Marin is a 75-year-old who is very well known to me from [facility] where he has been followed for chronic lymphocytic leukemia (CLL) for the past many years. He had been asymptomatic and has not required any therapy for his disease. I saw him in clinic on 01/09/2020 after more than 6 months for a routine followup when we noted that his hemoglobin was low at 7.3 g/dL, which was new. His hemoglobin and platelet count have always been normal over the years. An anemia workup was performed and he was supposed to have started on erythropoietin injections for anemia due to chronic kidney disease on 01/16/2020. However, he presented to the emergency room that day with altered mental status, fatigue and weakness. He says he fell the day before yesterday, says his legs were weak and gave out. There was no loss of consciousness. Overnight, he does not recall much. However, he said he knew he was confused and his brought him to the emergency room in the early hours of 01/16/2020. In the emergency room, his white count was 78,000, hemoglobin was 5.8 g/dL, hematocrit 18.5 g/dL, platelet count was normal at 179. He was hospitalized for evaluation of altered mental status and treatment of that and anemia. Subjectively, Mr. Marin was resting comfortably when I saw him. Today, he was watching television. He denied any pain or shortness of breath. He does not recall seeing dark stools, melena or rectal bleeding at home or since hospitalization. Objective: Vital Signs: Reveal that he is afebrile. Temperature was 97.8 at noon today, pulse 73 per minute, respirations 20 per minute, blood pressure 166/82, saturating at around 95 to 96%on room. General: Physical examination reveals pallor. He appears chronically ill at this point. HEENT: Examination reveals a dry mouth with no mucosal bleeding or petechiae. Vision and hearing are grossly unchanged. Neck: Reveals no mass or lymphadenopathy. No evidence of thyromegaly. Skin: Examination reveals extensive purpura over both forearms and upper neck. Lymph Node: Survey revealed no palpable lymphadenopathy. Respiratory: System was clear to auscultation. Breath sounds reduced at both bases posteriorly. No rales, rhonchi or bronchial breathing was heard. Heart: Sounds reveal normal S1, S2. No gallops or murmurs. Abdomen: Soft and nontender. Liver and spleen were not palpable. Bowel sounds were present. Neurologic: He was alert and oriented with no acute focal deficits. Lab Data: From this morning reveals a white count, which is stable at 78,700, hemoglobin is up to 7.2 g/dL after 2 units of packed red blood cells, platelet count was 174,000. Chemistries revealed normal sodium and potassium. BUN was elevated at 35, creatinine was elevated at 1.93 for an estimated GFR of 34. Assessment And Plan: 1. Anemia. His hemoglobin has dropped at some point in the past 6 months to a year. Possible causes are GI blood loss and/or anemia of chronic kidney disease and/or hemolysis (autoimmune hemolytic anemia) due to CLL. Hemolytic anemia was ruled out last week when I saw him in clinic. His iron levels are borderline low. We will repeat an iron profile today and supplement IV iron as indicated. I suspect that most of this anemia is due to chronic kidney disease, plan was to start him on erythropoietin 20,000 SQ q.2 weeks with a goal of getting his hemoglobin up to 11 g/dL. Would suggest a GI workup given the sudden drop in hemoglobin from 7.3 g/dL last week to 5.8 g/dL when he presented at the ER yesterday. 2. Chronic lymphocytic leukemia. His white count is elevated and stays in this range. As noted above, hemolytic anemia due to CLL was ruled out. Thank you for asking me to see him. We will follow him through the clinic next week and treat the anemia with IV iron and/or erythropoietin as mentioned above. AP/MODL Voice ID: [id number] Report ID: [id number] JUAN
[2020-01-17 20:29] LABS: Hematocrit 25.9 % (39.6-49.0)
[2020-01-17] MEDS ORDERED: METOPROLOL TARTRATE 5 MG/5 ML INJ IV STA (22:09)
[2020-01-17] MEDS ORDERED: dilTIAZem HCL 25 MG/5 ML VIAL IV ONE (22:43)
[2020-01-18] MEDS: NA CHLORIDE 0.9% 1,000 ML IV SCH ×2 (00:44→09:22)
[2020-01-18] MEDS: DILTIAZEM HCL 120 MG SR CAP PO SCH ×2 (01:46→12:57)
[2020-01-18 05:30] LABS: Absolute Lymphocytes (CBC) 68.8 K/uL (0.7-4.9); Basophils % 0.1 % (0-1.3); Hematocrit 25.9 % (39.6-49.0); Lymphocytes % 88.9 % (15.3-44.8); MPV 8.7 fL (7.6-11.3)
[2020-01-18 06:08] LABS: Magnesium 2.3 mg/dL (1.8-2.4); Potassium 3.8 mmol/L (3.5-5.1)
[2020-01-18] MEDS: INSULIN -REGULAR HUMAN 50 UNIT/0.5 ML ML SQ SCH ×4 (07:30→20:54)
[2020-01-18] MEDS: CRANBERRY FRUIT EXTRACT 200 MG CAP PO SCH (09:26)
[2020-01-18] MEDS: CLOPIDOGREL 75 MG TABLET PO SCH (09:27)
[2020-01-18] MEDS: ROSUVASTATIN 10 MG TAB PO SCH (09:27)
[2020-01-18] MEDS: FOLIC ACID 1 MG TABLET PO SCH (09:27)
[2020-01-18] MEDS: NEBIVOLOL HCL 5 MG TAB PO SCH (09:27)
[2020-01-18] MEDS: THIAMINE HCL 100 MG TABLET PO SCH (09:27)
[2020-01-18] MEDS: ASPIRIN EC 81 MG TAB PO SCH (09:27)
[2020-01-18] MEDS: CEFTRIAXONE/SWI 1gm 1 GM/10 ML SYR IV SCH (09:27)
[2020-01-18] MEDS: HEPARIN 5000 UNIT/ML 1 ML VIAL SQ SCH ×2 (09:30→20:56)
--- NOTE | 2020-01-18 12:11 | P.PN ---
Subjective Date of Service: 01/18/20 Primary Care Provider: Dr. Looney(He asked the Hospitalist to take the patient) Chief Complaint: Fatigue Subjective: Improving, Doing well, Other (Patient had atrial fibrillation last night. Patient required medication. Now normal sinus rhythm.) Physical Examination - Vital Signs Temperature: 97.2 F Blood Pressure: 129/63 Pulse: 67 Respirations: 18 Pulse Ox (%): 96 - Physical Exam General: Alert, Cooperative HEENT: Atraumatic Neck: Supple Respiratory: Clear to auscultation bilaterally, Normal air movement Cardiovascular: Normal pulses, Regular rate/rhythm Gastrointestinal: Normal bowel sounds, No masses, No rebound, No guarding Musculoskeletal: No erythema, No tenderness, No warmth Neurological: Normal speech, Normal strength at 5/5 x4 extr, Normal tone, Normal affect - Studies Microbiology Data (last 24 hrs): 01/16/20 06:10 Clean Catch Urine [place] Count - Final >100,000 CFU/ML. 01/16/20 06:10 Clean Catch Urine - Final Escherichia Coli Medications List Reviewed: Yes Assessment & Plan Discharge Plan: Home Plan to discharge in: 48 Hours Physician Review Additional Text: Impression: Toxic encephalopathy secondary to UTI, urine culture positive for E coli Fatigue secondary to severe anemia complicated with CLL Hypertension with hypotension Hyperglycemia suspect Diabetes mellitus type 2 txw-[id number]-dxfkcxmrq History of atrial fibrillation/CVA Plan: Toxic encephalopathy secondary to UTI, urine culture positive for E coli: Patient doing much better. Discontinue IV fluids. Will change IV antibiotic therapy to Augmentin 250 mg 1 pill twice daily. Continue monitor closely. Fatigue secondary to severe anemia complicated with CLL: Patient has received 3 units of blood. Hemoglobin stable. Recheck hemoglobin and hematocrit later today. Maintain hemoglobin above 8.0. The patient will need GI workup as an outpatient. Case discussed in detail with Hematology. Hypertension with hypotension: Blood pressure improved. Discontinue IV fluids. Restart diltiazem and Bystolic. Will monitor and adjust appropriately. Hyperglycemia suspect Diabetes mellitus type 2 dmj-phlvrja-hwreuoffh: Patient appears to have diabetes. Hyperglycemia noted. Will monitor Accu-Cheks. Obtain A1c. Will likely require medication at discharge. History of atrial fibrillation/CVA: Patient had episode of AFib with RVR. Now normal sinus rhythm after medication. Patient now back on diltiazem. Continue current medication. Time Spent Managing Pts Care (In Minutes): 55
[2020-01-18 18:01] LABS: Hematocrit 26.5 % (39.6-49.0)
[2020-01-18] MEDS: AMOX/K CLAV 500 MG TAB PO SCH (20:55)
[2020-01-19 05:44] LABS: Absolute Lymphocytes (CBC) 71.4 K/uL (0.7-4.9); Basophils % 0.2 % (0-1.3); Hematocrit 24.8 % (39.6-49.0); Lymphocytes % 90.6 % (15.3-44.8); MPV 8.6 fL (7.6-11.3); RBC Red Blood Cell Count 2.41 M/uL (4.33-5.43)
[2020-01-19 06:03] LABS: Magnesium 2.3 mg/dL (1.8-2.4); Potassium 3.9 mmol/L (3.5-5.1)
[2020-01-19] MEDS: INSULIN -REGULAR HUMAN 50 UNIT/0.5 ML ML SQ SCH ×4 (07:30→21:00)
--- NOTE | 2020-01-19 08:13 | P.PN ---
Subjective Date of Service: 01/19/20 Primary Care Provider: Dr. Looney(He asked the Hospitalist to take the patient) Chief Complaint: Fatigue Subjective: Improving, Other (Reports some weakness with standing.) Physical Examination - Vital Signs Temperature: 97.7 F Blood Pressure: 138/65 Pulse: 58 Respirations: 18 Pulse Ox (%): 96 - Physical Exam General: Alert, In no apparent distress, Oriented x3, Cooperative HEENT: Atraumatic Neck: Supple Respiratory: Clear to auscultation bilaterally, Normal air movement Cardiovascular: Normal pulses, Regular rate/rhythm Gastrointestinal: Normal bowel sounds, No tenderness, No masses, No rebound, No guarding Musculoskeletal: No erythema, No tenderness, No warmth Integumentary: No tenderness/swelling, No erythema, No warmth, No cyanosis Neurological: Normal speech, Normal strength at 5/5 x4 extr, Normal tone, Normal affect - Studies Microbiology Data (last 24 hrs): 01/16/20 06:10 Clean Catch Urine [place] Count - Final >100,000 CFU/ML. 01/16/20 06:10 Clean Catch Urine - Final Escherichia Coli Medications List Reviewed: Yes Assessment & Plan Discharge Plan: Home (With home health and physical therapy) Plan to discharge in: 24 Hours Physician Review Additional Text: Impression: Toxic encephalopathy secondary to UTI, urine culture positive for E coli Fatigue secondary to severe anemia complicated with CLL, vitamin B12 deficiency Hypertension with hypotension Hyperglycemia suspect Diabetes mellitus type 2 web-oawxqex-ywklohpwd Acute on chronic renal failure stage 3 with dehydration History of atrial fibrillation/CVA/SVT History of CVA Plan: Toxic encephalopathy secondary to UTI, urine culture positive for E coli: Patient doing much better. Encourage oral intake. Now on Augmentin. Patient will continue with 7 day treatment. To complete workup family desires MRI brain without contrast. This will be done tomorrow. Continue physical therapy. Patient may require home health and physical therapy discharge. This will be determined by PCP. PCP Dr. Parker will take over tomorrow. I will go over the plan of care with him. Fatigue secondary to severe anemia complicated with CLL, vitamin B12 deficiency: Patient has received 3 units of blood. Hemoglobin stable. Maintain hemoglobin above 8.0. Case discussed with his fuel conversion technician. Patient may require Procrit as an outpatient. Continue with supplementation including vitamin-B 12. CLL stable. Hypertension with hypotension secondary to above: Continue with diltiazem and Bystolic. May need to increase Bystolic to 20 mg daily as this is his regular dose but blood pressure within normal range. Will have PCP further address this tomorrow. Hyperglycemia suspect Diabetes mellitus type 2 gkl-rmkhito-hrtioelea: Prior A1c 7.3 in 2019. Recheck [id number]. Continue Accu-Cheks. Provide diabetic education. Will have PCP further address this in detail. Acute on chronic renal failure stage 3 with dehydration: Continue with oral intake. Renal function improved. Will obtain renal ultrasound to further evaluate. Patient may require nephrology evaluation as an outpatient to further address. Future medications may need to be renally dose. History of atrial fibrillation/CVA/SVT: Patient had episode of AFib with RVR. Now normal sinus rhythm after medication. Patient now back on diltiazem/Bystolic. Continue current medication. Patient continues on aspirin and Plavix. History of CVA: Continue aspirin Plavix. Initial CT head unremarkable. Will obtain MRI brain without contrast tomorrow to further evaluate. Continue physical therapy. Time Spent Managing Pts Care (In Minutes): 55
[2020-01-19] MEDS: THIAMINE HCL 100 MG TABLET PO SCH (08:36)
[2020-01-19] MEDS: CLOPIDOGREL 75 MG TABLET PO SCH (08:36)
[2020-01-19] MEDS: AMOX/K CLAV 500 MG TAB PO SCH ×2 (08:36→21:05)
[2020-01-19] MEDS: NEBIVOLOL HCL 5 MG TAB PO SCH (08:37)
[2020-01-19] MEDS: DILTIAZEM HCL 120 MG SR CAP PO SCH (08:38)
[2020-01-19] MEDS: CRANBERRY FRUIT EXTRACT 200 MG CAP PO SCH (08:38)
[2020-01-19] MEDS: HEPARIN 5000 UNIT/ML 1 ML VIAL SQ SCH ×2 (08:38→21:05)
[2020-01-19] MEDS: FOLIC ACID 1 MG TABLET PO SCH (08:38)
[2020-01-19] MEDS: ASPIRIN EC 81 MG TAB PO SCH (08:38)
[2020-01-19] MEDS: ROSUVASTATIN 10 MG TAB PO SCH (08:45)
[2020-01-19] MEDS: CYANOCOBALAMIN 1,000 MCG TAB PO SCH (08:45)
[2020-01-19] MEDS ORDERED: EPOETIN ALFA-EPBX 10,000 UNIT/ML VIAL SQ ONE (09:00)
[2020-01-20 05:47] LABS: Absolute Lymphocytes (CBC) 79.6 K/uL (0.7-4.9); Basophils % 0.1 % (0-1.3); Hematocrit 24.9 % (39.6-49.0); Lymphocytes % 90.6 % (15.3-44.8); MPV 8.5 fL (7.6-11.3)
[2020-01-20 06:05] LABS: Magnesium 2.4 mg/dL (1.8-2.4); Potassium 4.5 mmol/L (3.5-5.1)
[2020-01-20] MEDS: INSULIN -REGULAR HUMAN 50 UNIT/0.5 ML ML SQ SCH ×4 (07:30→21:00)
[2020-01-20 07:48] LABS: Blood Morphology Comment NOT SEEN (NOT SEEN); Platelet Estimate ADEQ
--- NOTE | 2020-01-20 07:54 | RAD REPORT ---
EXAM DESCRIPTION: US - Renal Ultrasound-Complete - 01/19/2020 10:34 pm CLINICAL HISTORY: Chronic renal disease COMPARISON: None. FINDINGS: The right kidney measures 10 cm with an increased echotexture. Small cysts The left kidney measures 11 cm with an increased echotexture. Multiple cysts. Largest measures 4.7 ce ntimeters Hydronephrosis is not seen. No gross abnormality of bladder is seen IMPRESSION: Increased renal echotexture consistent with parenchymal disease Bilateral renal cysts
[2020-01-20] MEDS: ASPIRIN EC 81 MG TAB PO SCH (08:04)
[2020-01-20] MEDS: CLOPIDOGREL 75 MG TABLET PO SCH (08:05)
[2020-01-20] MEDS: THIAMINE HCL 100 MG TABLET PO SCH (08:05)
[2020-01-20] MEDS: CYANOCOBALAMIN 1,000 MCG TAB PO SCH (08:06)
[2020-01-20] MEDS: DILTIAZEM HCL 120 MG SR CAP PO SCH (08:06)
[2020-01-20] MEDS: NEBIVOLOL HCL 5 MG TAB PO SCH (08:06)
[2020-01-20] MEDS: FOLIC ACID 1 MG TABLET PO SCH (08:06)
[2020-01-20] MEDS: AMOX/K CLAV 500 MG TAB PO SCH ×2 (08:07→21:15)
[2020-01-20] MEDS: ROSUVASTATIN 10 MG TAB PO SCH (08:07)
[2020-01-20] MEDS: CRANBERRY FRUIT EXTRACT 200 MG CAP PO SCH (08:07)
[2020-01-20] MEDS: HEPARIN 5000 UNIT/ML 1 ML VIAL SQ SCH ×3 (08:08→21:15)
--- NOTE | 2020-01-20 09:15 | RAD REPORT ---
EXAM DESCRIPTION: CT - Abdomen Pelvis W Contrast - 01/20/2020 8:53 am CLINICAL HISTORY: Abdominal pain/GI bleeding COMPARISON: none. TECHNIQUE: Computed axial tomography of the abdomen pelvis was obtained. 100 cc Isovue-300 was admin istered intravenously. Oral contrast was not requested which limits evaluation of bowel. All CT scans are performed using dose optimization technique as appropriate and may include automated exposure control or mA/KV adjustment according to patient size. FINDINGS: The spleen measures 17 centimeter. . Small hiatal hernia. The liver, pancreas and adrenals are unremarkable Bilateral renal cysts. Largest cyst is in the left kidney measuring 6.2 centimeters Mild to moderate lymphadenopathy present within the gastrohepatic ligament, peripancreatic and portac aval space. Periportal/caval region also involves. Aorto bi-iliac stent has been placed into an abdominal aortic aneurysm. Curvilinear areas of increase d density are present within the aneurysm. There is no evidence of diverticulitis. The prostate gland is mildly enlarged. Postsurgical changes i nvolve the lumbar spine IMPRESSION: Moderate splenomegaly Hikm-pg-gxdlbwnc abdominal lymphadenopathy Aorto bi-iliac stent Curvilinear areas of increased density within the abdominal aortic aneurysm may represent a small end oleak or calcifications. Unenhanced CT scan of the abdomen would be helpful to differentiate between the two
[2020-01-20] MEDS ORDERED: BISACODYL 10 MG RECTAL SUPP PR ONE (10:45)
--- NOTE | 2020-01-20 12:41 | PN ---
Date of Progress Note: 01/20/2020 The patient seems slightly confused this morning; however, he is responsive. He states he has diffic ulty walking with therapy and relates this to weakness and coordination. His H and H remained low at 7.9 after 3 units. He has not had a bowel movement, awaiting guaiac, and the possibility is ___ post aortic surgery. We will follow up with this with the [facility] physicians, and a CAT scan milly ws significant upper abdominal adenopathy. We will discuss with Dr. Kearney and continue to monitor. D epending on the response from [facility] CAT scan to see in fact if it may be leaking from th is area if his guaiac is negative. We will continue to monitor. HR/MODL Voice ID: [id number] Report ID: [id number]
--- NOTE | 2020-01-20 15:30 | RAD REPORT ---
EXAM DESCRIPTION: CT - Head Brain Wo Cont - 01/20/2020 3:13 pm CLINICAL HISTORY: ams Headache, drowsiness, CVA COMPARISON: Ct Stroke Brain Wo Cont dated 01/16/2020; Head Brain Wo Cont dated 07/02/2019 TECHNIQUE: All CT scans are performed using dose optimization technique as appropriate and may inclu de automated exposure control or mA/KV adjustment according to patient size. FINDINGS: No intracranial hemorrhage, hydrocephalus or extra-axial fluid collection.Mild generalized brain atrophy is present with moderate periventricular and deep white matter chronic microvascular i schemic changes.No areas of brain edema or evidence of midline shift. Gliosis in the right occipital pole is present suggesting old infarct. The paranasal sinuses and mastoids are clear. The calvarium is intact. IMPRESSION: No acute intracranial abnormality.
[2020-01-20 18:02] LABS: Hematocrit 27.2 % (39.6-49.0)
--- NOTE | 2020-01-20 22:57 | CON ---
Reason For Consultation: Consultation called by Dr. Looney because of altered mental status. History Of Present Illness: Mr. Marin is a 75-year-old patient with multiple medical pro blems including hypertension, stroke, chronic lymphocytic leukemia, bladder cancer, atrial fibrillati on on chronic anticoagulation, who came into [facility] on the 15 of January with a signi ficant urinary tract infection with E coli. His urinalysis showed it was loaded with bacteria, posit naye nitrites, 1+ esterase, and too-numerous to count white blood cells. He is being treated for that . It was noted by Dr. Looney that he seemed more disoriented, confused, and unable to follow comman ds, and as he came back in today and took over care for the patient. Per Dr. Stone, Dr. Looney tho [facility] he was not at his baseline level of cognitive functioning. The patient himself at the time of m y evaluation thought he was at his normal level of functioning and did not have any more confusion th an usual. The patient actually had 2 CT scans, 1 on the and 1 today, that showed no acute ische marquise or hemorrhagic change and his electrolyte panel is remarkable for elevated creatinine, which is c hronically elevated at 1.54, glucose ranged from about 158 to 171. Otherwise, his white blood cell c ount which is chronically elevated was 88,000 with 90% lymphocytes and he had anemia at 7.9, after wh ich he has received actually 3 units of blood over the hospitalization and most recent hemoglobin is 8.2. On his admission, he was down to 5.8 hemoglobin. Past Medical History: As noted. In addition, COPD, supraventricular tachycardia, diabetes mellitus type 2, abdominal aortic aneurysm, bladder cancer, stroke, hypertension, atrial fibrillation, chronic lymphocytic leukemia. Past Surgical History: Removal of thoracic hematoma, bladder resection twice, laminectomy. Allergies: MEPERIDINE AND PSEUDOEPHEDRINE. Home Medications: Crestor 10 mg daily, aspirin 81 mg daily, Plavix 75 mg daily, Catapres 0.1 mg 4 ti mes daily, Matzim 360 mg daily, Eliquis 2.5 mg twice daily, cranberry extract 200 mg daily, Cardizem 240 mg daily, melatonin 3 mg at bedtime, Bystolic 10 mg daily, Zofran 4 mg daily, Crestor 10 mg at be dtime, Flomax 0.4 mg at bedtime, Prinivil 40 mg twice daily. Family History: Positive for cancer in father. Social History: Uses alcohol, caffeinated beverages. No recent tobacco use. No IV drug use. Review of Systems: Mr. Duke Marin admits to some chronic fatigue, difficulty with mobilization, diffuse weakness, bu t no confusion. No focal deficits in face, arm, leg. No active gastrointestinal or genitourinary is sues. Physical Examination: Vital Signs: Blood pressure 120/68, up to 142 systolic, temperature 97.5, pulse rate 68, respiration s 16, oxygen saturation 99%. General: Mr. Marin is resting in bed. He actually just had a bowel movement, it is about to be ch anged. He is somewhat disheveled. HEENT: Normocephalic, atraumatic. His sclerae are anicteric. Oropharynx is moist and pink. Neck: Supple. Chest: Clear. Heart: Regular. Extremities: No significant edema or cyanosis. Neurological: He is alert and oriented to the situation, place, person. In his mini-mental status e xamination, he missed 1 word recall after 3 minutes. He was actually disoriented to the exact date, but was otherwise fully oriented, followed all commands appropriately, and had a 27/30 on the mini-me ntal status examination test. No focal cranial nerve deficits. No focal motor, sensory, coordinatio n, or gait abnormalities appreciated. He was evaluated for ambulation with physical therapy. He was able to take 5 steps with a rolling walker, but required minimum to moderate assistance. Assessment: Mr. Marin is a 75-year-old patient with multiple reasons for encephalopathy including very severe anemia, for which he has just received blood transfusion. He had a urinary tract infecti on and has been treated for that. He has chronic lymphocytic leukemia and some electrolyte abnormali ties, which are now being corrected. The patient at this point, however, does not have any obvious s ignificant encephalopathy and appears to be at his baseline level of cognitive functioning. Multiple CT scans ruled out a focal abnormality in his brain and clinically has no focal neurological deficit s. Plan: Continue with current level of care. Continue with anticoagulation. Continue with aggressive management of infection. Continue with replacement of blood products as appropriate. Continue with care of chronic lymphocytic leukemia as per primary team. After discharge from hospital, he may req [facility] outpatient physical therapy to regain balance, coordination, strength or he may qualify for inpa tient therapy depending on what the physical therapist evaluation identifies. Otherwise, he should f ollow up with Dr. Healy in clinic 1 month later. ALISHA/MEGAN Voice ID: [id number] Report ID: [id number]
[2020-01-21] MEDS: INSULIN -REGULAR HUMAN 50 UNIT/0.5 ML ML SQ SCH ×3 (07:30→16:07)
[2020-01-21] MEDS: CLOPIDOGREL 75 MG TABLET PO SCH (08:18)
[2020-01-21] MEDS: AMOX/K CLAV 500 MG TAB PO SCH (08:18)
[2020-01-21] MEDS: NEBIVOLOL HCL 5 MG TAB PO SCH (08:18)
[2020-01-21] MEDS: CRANBERRY FRUIT EXTRACT 200 MG CAP PO SCH (08:18)
[2020-01-21] MEDS: CYANOCOBALAMIN 1,000 MCG TAB PO SCH (08:19)
[2020-01-21] MEDS: ASPIRIN EC 81 MG TAB PO SCH (08:19)
[2020-01-21] MEDS: FOLIC ACID 1 MG TABLET PO SCH (08:19)
[2020-01-21] MEDS: THIAMINE HCL 100 MG TABLET PO SCH (08:19)
[2020-01-21] MEDS: ROSUVASTATIN 10 MG TAB PO SCH (08:19)
[2020-01-21] MEDS: DILTIAZEM HCL 120 MG SR CAP PO SCH (08:19)
[2020-01-21] MEDS: HEPARIN 5000 UNIT/ML 1 ML VIAL SQ SCH (08:20)
[2020-01-21 15:53] VITALS: O2SAT 93
[2020-01-21 16:16] VITALS: BP 127/64; TEMP 97.8
--- NOTE | 2020-01-21 22:25 | PN ---
Date of Progress Note: 01/21/2020 The patient states he feels considerably better. His H and H are stable. His coag has been negative has no definitive reason for his drop in hemoglobin that could be attributable to 1 specific reason, perhaps a combination of the surgery and his underlying chronic conditions. In any event, since he w as stable, discussed the option of going home; however, he is still too weak to mobilize at all, and therefore, a rehab consult was placed, and it was accepted and to be transferred later today. HR/MODL Voice ID: [id number] Report ID: [id number]
--- NOTE | 2020-02-27 09:05 | DS ---
Date of Discharge: 01/21/2020 Had presented to the emergency room quite weak and altered mental status. Workup revealed multiple p roblems including severe anemia and UTI. He was admitted, placed on antibiotics, eventually required 3 units of blood. During his hospital stay, he was seen by his oncologist, Dr. Kearney, who had been f ollowing him for his CLL for a number of years with no significant anemic drop like this one. The et iology of this was unsure. The probability of being a CLL driven was the most likely, complicated pe rhaps by his chronic renal disease and vascular problems. In any event, during his hospital stay, he showed gradual improvement both clinically and physiologically. His altered mental status improved almost to baseline. His major problem during his hospital stay was he could not support himself with his legs, difficulty even with a walker. After obtaining his reasonably appropriate hemoglobin, the rapy was also started and it was felt he would be a good candidate for rehab, placement was made, and he was discharged to be admitted to the rehab on fifth floor in fair condition on 01/19. Final Diagnoses: Altered mental status secondary to urinary tract infection; anemia, severe; chronic lymphocytic leukemia; hypertension, poor control; acute on chronic stage 3 renal failure; atrial fib rillation with RVR; cerebrovascular accident by history. HR/MODL Voice ID: [id number] Report ID: [id number]
== END 2020-01-21 18:17 | DRG 689 ==
LOC: ER 05:24 → ERHOLD 06:48 → 2ND 15:11
PROVIDERS: ADMIT Family Medicine; ATTEND Family Medicine
PROC: 30233N1 Transfusion of Nonautologous Red Blood Cells into Peripheral Vein, Percutaneous Approach (ICD-10-PCS; principal; 2020-01-17)
DX: N39.0 Urinary tract infection, site not specified (principal); G92 Toxic encephalopathy; C91.10 Chronic lymphocytic leukemia of B-cell type not having achieved remission; N17.9 Acute kidney failure, unspecified; E86.0 Dehydration; I12.9 Hypertensive chronic kidney disease with stage 1 through stage 4 chronic kidney disease, or unspecified chronic kidney disease; N18.30 Chronic kidney disease, stage 3 unspecified; E11.22 Type 2 diabetes mellitus with diabetic chronic kidney disease; E11.65 Type 2 diabetes mellitus with hyperglycemia; D63.1 Anemia in chronic kidney disease; I95.9 Hypotension, unspecified; D51.9 Vitamin B12 deficiency anemia, unspecified; I48.91 Unspecified atrial fibrillation; J44.9 Chronic obstructive pulmonary disease, unspecified; B96.89 Other specified bacterial agents as the cause of diseases classified elsewhere; B96.20 Unspecified Escherichia coli [E. coli] as the cause of diseases classified elsewhere; Z88.8 Allergy status to other drugs, medicaments and biological substances; Z79.01 Long term (current) use of anticoagulants; Z85.51 Personal history of malignant neoplasm of bladder; Z79.02 Long term (current) use of antithrombotics/antiplatelets; Z79.899 Other long term (current) drug therapy; Z86.73 Personal history of transient ischemic attack (TIA), and cerebral infarction without residual deficits; Z79.82 Long term (current) use of aspirin; Z20.828 Contact with and (suspected) exposure to other viral communicable diseases
CPT/HCPCS: 36415; 36430; 70450; 71045; 74177; 76770; 80048; 81003; 81015; 82272; 82274; 82550; 82607; 82728; 82746; 82947; 83540; 83615; 83735; 84466; 84484; 85014; 85018; 85025; 85044; 85610; 85652; 85730; 86140; 86850; 86870; 86900; 86901; 86922; 87040; 87077; 87086; 87088; 87186; 93005; 96361; 96374; 97112; 97116; 97161; 97530; 99285; J0696; J1644; J1940; J7030; J7050; P9016; Q5106; Q9967; U0003

== ENCOUNTER 2020-01-21 14:50 | Inpatient (IN) | payer OTHER ==
--- NOTE | 2020-01-21 17:02 | R.PREADM ---
PRE-ADMISSION SCREENING FORM SCREENING DATE AND TIME 01/21/2020 14:55 (DIRECTOR OF COMMUNITY SERVICES) ANTICIPATED REHAB ADMISSION DATE 01/23/2020 REFERRING FACILITY [facility] MEDICAL REFERRAL DATE AND TIME 01/21/2020 14:55 (DIRECTOR OF COMMUNITY SERVICES) REFERRAL ROOM# 229 ACUTE ADMIT DATE 01/21/2020 Previous Rehabilitation(s): No. 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 Jose Healy M.D. MR# [id number] NAME IDANIA MARIN ADDRESS [address] [facility] [address] DATE OF 1945 AGE 75 SSN# [id number] GENDER male MARITAL STATUS RACE unknown race ADMIT FROM 02 - [facility] PRE-HOSPITAL LIVING SETTING 01 - Home (private home/apt. board/care, assisted living, skilled nursing, transitional living) HOME TYPE AND DETAILS Type of home: single family house # of levels in the residence: 2 # of steps within the residence:10 # of steps to enter the residence: 2 PRE-HOSPITAL LIVING WITH Family/Relatives FAMILY SUPPORT Yes PRIMARY FAMILY CONTACT NAME RICHIE MARIN PRIMARY FAMILY CONTACT PHONE PRIMARY FAMILY CONTACT RELATIONSHIP Spouse PHONE PRIMARY FAMILY CONTACT ON ADM.? no IS PRIMARY FAMILY CONTACT AUTH. REP.? no 1ST EMERGENCY CONTACT RICHIE MARIN 1ST CONTACT PHONE 1ST CONTACT RELATIONSHIP Spouse PHONE 1ST CONTACT ON ADM. no IS 1ST CONTACT AUTH. REP.? no PHONE 2ND CONTACT ON ADM.? no PATIENT EMPLOYMENT STATUS Retired (for age) PATIENT EMPLOYER No Employer PAYOR INFORMATION: 1ST PAYOR NAME MEDICARE 1ST PAYOR PHONE 1ST PAYOR INJURY/ILLNESS DUE TO ACCIDENT? No ANOTHER LIBERTARIAN RESPONSIBLE? No PRIMARY REHAB/ACUTE DIAGNOSIS: DEBILITY. AMS, UTI,ANEMIA ONSET DATE 01/16/2020 REHAB IMPAIRMENT CATEGORY (CLOVER): 20 Miscellaneous (Misc) does NOT meet 60% rule PRIMARY DIAGNOSIS-RELATED SURGERIES: No surgeries related to the primary diagnosis were performed. SUMMARY OF ACUTE HOSPITALIZATION: Pt. is a 75 yo Right-handed male of unknown race. On 01/16/2020 he was admitted to [facility] with diagnosis DEBILITY. AMS, UTI,ANEMI A. His impairment category is Debility 16 - Debility (16). Pre-morbidly, Pt. was independent/mod-I in Safety Awareness, Balance, Transfers Control, and Enduranc e; and he had good Locomotion, Self-Care, Sphincter Control, and Transfers Control. Currently, he has deficits of Locomotion, Balance, Sphincter Control, Transfers Control, and Social C ognition. Pt. is now referred to [facility] for acute in-patient rehabilitation in order to maximize patient's functional independence in activities of daily living, strength, ROM, and mobi lity. Patient has realistic goal of being discharged at assistance level 7-Ind to reside at Home with Fami ly/Relatives. Idania Marin is a 75 -year- old female that at home independently with her . [facility] [place] [facility] She has had multiple medical problems including hypertension, CVA, CLL, history of bladder cancer, A fib on chronic anti coagulation therapy. The patient reported feeling tired. Some confusion but denies any significant chest pain, shortness of breath. Patient went to ER for evaluation. Urinary complaints noted. Antibiotic therapy was started. Patient has received transfusion. The patient would most definitely benefit from acute inpatient rehab and has become severely debilitated and unable to live at her prior level of activity at home getting her stronger to be back living at home independently is our goal. It is reasonable and necessary for the patient to come to acute inpatient rehab for approximately 7-10 days in order to return to her prior level of care. She is now being transferred to [facility] Inpatient rehabilitation and is medically stable with relatively stable labs. She is now medically stable but in need of 24 hour nursing, doctor supervision and The patient is reasonably expected to participate in 3 hours of therapy a day/15 hours per week and receive care with intensive interdisciplinary approach. COVID-19 screening performed; spoke with patient via phone. Patient denies new onset of fever, cough, difficulty breathing, sore throat, body aches and non-allergy nasal congestion in the past 24 hours. Patient denies travel outside of [place] in the past 14 days. Patient denies any contact with someone who has a confirmed diagnosis of or is under investigation for COVID-19 in the past 14 days. Patient has been tested negative for COVID- 19. PAST MEDICAL HISTORY HYPERTENSION COPD SVT DIABETES MELLITUS TYPE 2 AAA HISTORY OF BLADDER CANCER CVA AFIB CLL PAST SURGICAL HISTORY: REMOVAL OF THORACIC HEMATOMA BLADDER RESECTION 2X LAMINECTOMY MEDICATION ALLERGIES: No Known Drug Allergies (NKDA) ENVIRONMENTAL ALLERGIES: - Substance Allergies None Known - Other Allergies None Known CODE STATUS: Full code WEIGHT/HEIGHT/BMI: WEIGHT 214 lbs HEIGHT 5' 8" BMI 32.5 DIET: - Diet Type Regular - Diet - Solid Texture Regular - Diet - Liquid Texture Regular - Tube Feed N/A REVIEW OF SYSTEMS: - Gen Alert and awake Lying in bed No apparent distress Oriented to: person, time, and place - Vital Signs Temperature: 97.6 F SBP/DBP: 139/69 Pulse: 70 Resp: 16 Vital signs stable, afebrile - CVS RRR VITAL SIGNS Temperature: 97.6 F SBP/DBP: 139/69 Pulse: 70 Resp: 16 Vital signs stable, afebrile MEDICATIONS/TREATMENT: Other- See attached MAR (Medication Administration Record). CURRENT SPHINCTER CONTROL: Pre-hospital bladder status: unspecified # of bladder accidents in the last 7 days prior to screenin Pre-hospital bowel status: unspecified # of bowel accidents in the last 7 days prior to screenin Last Bowel Movement Date: 01/21/2020 CURRENT LOCOMOTION STATUS: distance walked 10 SIDE STEPS W RW DETAILED CURRENT FUNCTIONAL STATUS: - Bladder accident frequency: Ind - No accidents in the past 7 days - Bowel accident frequency: Ind - No accidents in the past 7 days - Walking score based on distance walked: 0(N/A) score based on distance walked: 1(<=50ft) - Wheelchair score based on distance traveled: 0(N/A) QI SCORES: - Self-Care A. Eating 04-Supervision or touching assistance B. Oral hygiene 03-Partial/moderate assistance C. Toileting hygiene 03-Partial/moderate assistance E. Shower/bathe self 03-Partial/moderate assistance F. Upper body dressing 03-Partial/moderate assistance G. Lower body dressing 03-Partial/moderate assistance H. Putting on/taking off footwear 88-Not attempted due to medical condition or safety concerns - Mobility A. Roll left and right 03-Partial/moderate assistance B. Sit to lying 03-Partial/moderate assistance C. Lying to sitting on side of bed 03-Partial/moderate assistance D. Sit to stand 03-Partial/moderate assistance E. Chair/pfi-ih-mxpko transfer 03-Partial/moderate assistance F. Toilet transfer 03-Partial/moderate assistance G. Car transfer 88-Not attempted due to medical condition or safety concerns I. Walk 10 feet 88-Not attempted due to medical condition or safety concerns J. Walk 50 feet with two turns 88-Not attempted due to medical condition or safety concerns K. Walk 150 feet 88-Not attempted due to medical condition or safety concerns L. Walking 10 feet on uneven surfaces 88-Not attempted due to medical condition or safety concerns M. 1 step (curb) 88-Not attempted due to medical condition or safety concerns N. 4 steps 88-Not attempted due to medical condition or safety concerns O. 12 steps 88-Not attempted due to medical condition or safety concerns P. Picking up object 88-Not attempted due to medical condition or safety concerns R. Wheel 50 feet with two turns 88-Not attempted due to medical condition or safety concerns S. Wheel 150 feet 88-Not attempted due to medical condition or safety concerns - Bladder and Bowel Bladder continence Bowel continence - Endurance Fair - Balance Fair - Safety Awareness Fair CURRENT FUNC. DEFICITS: Self-Care, Mobility, Endurance, Balance, and Safety Awareness CURRENT / PREVIOUS ASSISTIVE DEVICES: Rolling Walker HISTORY OF FALLS. HAS THE PATIENT HAD TWO OR MORE FALLS IN THE PAST YEAR OR ANY FALL WITH INJURY IN T HE PAST YEAR?: No PRIOR SURGERY. DID THE PATIENT HAVE MAJOR SURGERY DURING THE 100 DAYS PRIOR TO ADMISSION?: No THERAPY NOTES FROM ACUTE CARE: Attached. SPECIAL NEEDS: - Safety Concerns Skin breakdown precautions needed due to skin breakdown risk PATIENT NEEDS ACTIVE AND ONGOING THERAPEUTIC INTERVENTION OF MULTIPLE THERAPY DISCIPLINES, INCLUDING: - Dietary and Nutrition Adequate Nutrition. Nutritional Education. Nutritional Supplements. PATIENT NEEDS CLOSE MEDICAL SUPERVISION BY A REHABILITATION PHYSICIAN FOR: Coordination of Treatment Team PATIENT REQUIRES 24X7 REHAB NURSING FOR MEDICAL AND FUNCTIONAL MGT. OF THE FOLLOWING DEFICITS: Disease Management Medication Management Patient/Family Education Providing Safe Environment PATIENT REQUIRES INTENSIVE, COORDINATED INTERDISCIPLINARY APPROACH TO REHAB: Arranging Home Equipment/Services Discharge Planning Family Intervention/Training Picker Operator/Case Management PATIENT REHAB POTENTIAL: Braeden MARIN is able and expected to receive 3 hours of individualized therapy daily on at least 5 of e very 7 days Braeden MARIN's prognosis for significant practical improvement within a reasonable period of time appea rs Good Expected level of measurable improvement will be of a practical value to Braeden MARIN's functional capa city or adaptations to impairments Has a viable Discharge Plan Medically appropriate; condition is sufficiently stable to participate in intensive rehab program DISCHARGE PLAN: - Estimated Length of Stay (days) 13. - Consensus on plan Discharge plan has been discussed with primary caregiver. Patient/Family is in agreement with the emre n. Primary caregiver is in agreement with the plan. - Patient/Family Goals Return home independently. - Planned Living Setting Upon Discharge Home, to live with Family/Relatives. Transitional Living. RECOMMENDED CARE LEVEL: IRF RECOMMENDATION DETAILS: Recommended Admission to Comprehensive Rehabilitation Program to Increase Functional [place] SCREENER'S COMPLETENESS CONFIRMATION: - Screening Confirmation The patient data collection on this preadmission screening form is finished PHYSICIANS REVIEW AND ADMISSION DETERMINATION Admit - Based on my review of the Pre-Admission Screening results, in my medical judgment and experie nce, I concur with the findings and recommend admission to [facility], as this patient requires an IRF level of care. SIGNATURE PANEL: Contract Law Specialist - [electronically] signed by Kashif Gonzalez on 01/21/2020 at 15:49 (DIRECTOR OF COMMUNITY SERVICES) Clinical Liaison - [electronically] signed by Kiki Galloway OT on 01/21/2020 at 16:02 (DIRECTOR OF COMMUNITY SERVICES) Physician Reviewer - [electronically] signed by Dr. Jose Healy M.D. on 01/21/2020 at 17:01 (DIRECTOR OF COMMUNITY SERVICES )
--- OUTSIDE RECORDS SUMMARY | 2020-01-21 18:18 | XMS REPORT | Clinical Summary ---
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
--- OUTSIDE RECORDS SUMMARY | 2020-01-21 18:20 | XMS REPORT | Clinical Summary ---
:1945 Author Organization [facility] Address [address] [place] [address] Care Team Providers Name Role Phone MD [...] MD Roberts, Jared Remington 12/13/2019 Surgery Delano Payne REPAIR,EVAR- ENDOVAS MD Kenny CULAR AORTIC ANEURYSM [...] Encounter Cardiology Payne, Casey Aneurysm of Gee, ICU TECH infrarenal abdominal aorta (HCC) 12/11/2019 Orders Only General Internal Medicine 12/11/2019 Travel 11/27/2019 Orders Only Cardiology Payne, Casey Aneurysm of Gee, ICU TECH infrarenal abdominal aorta (HCC) (Primary Dx) 11/21/2019 Hospital Encounter Respiratory Therapy Payne, Casey An eurysm of infrarenal abdominal aorta (HCC); Gee, NP Tobacco use 11/14/2019 Orders Only Cardiology Payne, Casey Aneurysm of Gee, ICU TECH infrarenal abdominal aorta (HCC) (Primary Dx) 11/13/2019 [...] aortic aneurysm (AAA) without rupture (HCC); Gee, ICU TECH Ascending aortic aneurysm (HCC); [facility] Aortic valve disease Ct Room 11/05/2019 Hospital Encounter Computed Tomography Payne, Casey Ab dominal aortic aneurysm without rupture (HCC); MUNA Flynn Abdominal aortic aneurysm (AAA) without rupture (HCC) 1[facility] 10/18/2019 Orders Only Cardiology Delano Payne Abdominal ao rtic aneurysm (AAA) without rupture (HCC) (Primary Dx); MD Kenny Abdominal aort ic aneurysm without rupture (HCC) 10/18/2019 Orders Only Cardiology Delano Payne Abdominal ao rtic aneurysm (AAA) without rupture (HCC) (Primary Dx); MD Kenny Ascending aort ic aneurysm (HCC); Aortic valve di sease after 01/20/2019 Family History Medical History Relation Name Comments [...] with No / Unsure 01/03/2020 10:16 AM [employer] someone who was confirmed or suspected to have Coronavirus / COVID-19? Last Filed Vital Signs Vital Sign Reading Time Taken Comments Blood Pressure 140/66 2020 2:00 PM [facility] Pulse 58 2020 2:00 PM [employer] Temperature 48 C (118.4 F) 2020 11:52 AM [employer] Respiratory Rate 18 2020 2:00 PM [employer] Oxygen Saturation 98% 2020 1:00 PM [employer] Inhaled Oxygen Concentration 21% 12/18/2019 7:44 PM [employer] Weight 85.3 kg (188 lb) 2020 8:39 AM [employer] Height 180.3 cm (5' 10.98") 2020 8:39 AM [employer] Body Mass Index 26.23 2020 8:39 AM [employer] Plan of Treatment Health Maintenance Due Date Last Done Comments COLON CANCER SCREENING COLONOSCOPY 1945 PNEUMOCOCCAL 65+ YRS (1 of 1 - [id number]) 2010 MEDICARE ANNUAL WELLNESS (YEAR 2 or FIRST YEAR if no 12/08/2010 IPPE) DEPRESSION SCREENING (12+) 02/06/2019 INFLUENZA VACCINE (#1) 2019 Implants Implanted Type Area Business Database Analyst Device Identifier Shelf Model / Expiration Serial / Date Lot Stent Grft Excluder C3 31x14.5 [id number] - [id number] IMPLANTS N /A: LEANDRO SEBASTIAN & [id number] 10/15/2022 [id number] / Implanted: Qty: 1 on 12/13/2019 by Delano Barrett MD at [facility] Aorta ASSC:MED PRDT [id number] / Description:ABDOMINAL AORTA- RIGHT ILIAC Grft Leg Excluder [id number] - [id number] IMPLANTS L eft: LEANDRO SEBASTIAN & [id number] 06/23/2022 [id number] / Implanted: Qty: 1 on 12/13/2019 by Delano Barrett MD at [facility] Iliac ASSC:MED PRDT [id number] / Description:LEFT COMMON ILIAC. Stent Grft Excluder [id number] - [id number] IMPLANTS R ight: WL GORE & [id number] 01/04/2023 [id number] / Implanted: Qty: 1 on 12/13/2019 by Delano Barrett MD at [facility] Iliac ASSC:MED [id number] / PRDT Description:RIGHT COMMON ILIAC Patch Periph Vascu-Grd 0.8x8cm [id number] - [id number] IMPLAN TS Left: SYNOVIS [id number] 07/16/2024 [id number] / Implanted: Qty: 1 on 12/13/2019 by Colton Gupta MD at [facility] Arterial LIFE [id number] / TECH:SURG [id number] INNOV Description:Site: LEFT LOWER EXTREMITY Angio Seal Left: Arterial TERUMO VASCUTEK 09/06/19 21 [id number] / Implanted: Qty: 1 on 12/13/2019 by Colton Gupta MD at [facility] / [id number] Angio-Seal Vip Left: Arm Upper TERUMO MEDICAL MIGUEL. 10/06/2020 [id number] / Implanted: Qty: 1 on 2020 by Colton Gupta MD at [facility] / [id number] Procedures Procedure Name Priority Date/Time Associated Diagnosis Comme nts POCT-ACT Routine 2020 11:24 AM Results for this [employer] procedure are i n the results section. ECG 12-LEAD Routine 2020 10:50 AM Results for this [employer] procedure are i n the results section. ANGIOGRAM,CORONARY 2020 10:04 AM Peripheral vasc ular [facility] [employer] disease (HCC) Case Notes 6TOP CARDIAC CATH REPORT - 2020 Result s for this SCAN procedure are i n the results section . SARS-COV2/RT-PCR Routine 01/03/2020 10:25 AM Pre-op testing Re sults for this ([facility] & REF LABS) [facility] [employer] procedure are in the results section . POCT-GLUCOSE METER Routine 12/19/2019 7:18 AM Re sults for this [employer] procedure are i n the results section . CBC (HEMOGRAM ONLY) Routine 12/19/2019 4:49 AM R esults for this [employer] procedure are i n the results section . PHOSPHORUS Routine 12/19/2019 4:49 AM Results for this [employer] procedure are i n the results section . MAGNESIUM Routine 12/19/2019 4:49 AM Results for this [employer] procedure are i n the results section . BASIC METABOLIC PANEL Routine 12/19/2019 4:49 AM Results for this (7) [employer] procedure are i n the results section . POCT-GLUCOSE METER Routine 12/18/2019 9:00 PM Re sults for this [employer] procedure are i n the results section . POCT-GLUCOSE METER Routine 12/18/2019 4:56 PM Re sults for this [employer] procedure are i n the results section . POCT-GLUCOSE METER Routine 12/18/2019 11:16 AM Re sults for this [employer] procedure are i n the results section . ECG 12-LEAD Routine 12/18/2019 8:29 AM Results for this [employer] procedure are i n the results section . ECG 12-LEAD Routine 12/18/2019 8:29 AM [employer] Procedure Note - Interface, External Ris In - 12/18/2019 7:37 AM [facility] Ventricular Rate 135 BPM Atrial Rate 135 BPM P-R Interval 180 ms QRS Duration 88 ms Q-T Interval 350 ms QTC Calculation(Bazett) 525 ms P Yale 23 degrees R Yale 30 degrees T Yale [address] & T wave abnormality, con analytics intern anterolateral ischemia Abnormal ECG When compared with ECG of 12:01, MT interval has decreased Vent. rate has increased BY [address] now depressed in Inferior leads ST now depressed in Anterola teral leads Nonspecific T wave abnormali ty now evident in Inferior leads T wave inversion now evident in Anterolateral leads POCT-GLUCOSE METER Routine 12/18/2019 7:37 AM Re sults for this [employer] procedure are i n the results section. SARS-COV2/RT-PCR ([facility] Routine 12/18/2019 5:39 AM Results for this & REF LABS) [facility] procedure are i n the results section. CBC (HEMOGRAM ONLY) Routine 12/18/2019 5:24 AM R esults for this [employer] procedure are i n the results section. PHOSPHORUS Routine 12/18/2019 5:24 AM Results for this [employer] procedure are i n the results section. MAGNESIUM Routine 12/18/2019 5:24 AM Results for this [employer] procedure are i n the results section. BASIC METABOLIC PANEL Routine 12/18/2019 5:24 AM Results for this (7) [employer] procedure are i n the results section. POCT-GLUCOSE METER Routine 12/17/2019 9:25 PM Re sults for this [employer] procedure are i n the results section. POCT-GLUCOSE METER Routine 12/17/2019 4:03 PM Re sults for this [employer] procedure are i n the results section. POCT-GLUCOSE METER Routine 12/17/2019 11:59 AM Re sults for this [employer] procedure are i n the results section. POCT-GLUCOSE METER Routine 12/17/2019 7:49 AM Re sults for this [employer] procedure are i n the results section. CBC (HEMOGRAM ONLY) Routine 12/17/2019 5:11 AM R esults for this [employer] procedure are i n the results section. PHOSPHORUS Routine 12/17/2019 5:11 AM Results for this [employer] procedure are i n the results section. MAGNESIUM Routine 12/17/2019 5:11 AM Results for this [employer] procedure are i n the results section. BASIC METABOLIC PANEL Routine 12/17/2019 5:11 AM Results for this (7) [employer] procedure are i n the results section. POCT-GLUCOSE METER Routine 12/16/2019 9:16 PM Re sults for this [employer] procedure are i n the results section. POCT-GLUCOSE METER Routine 12/16/2019 4:18 PM Re sults for this [employer] procedure are i n the results section. POCT-GLUCOSE METER Routine 12/16/2019 12:02 PM Re sults for this [employer] procedure are i n the results section. POCT-GLUCOSE METER Routine 12/16/2019 7:39 AM Re sults for this [employer] procedure are i n the results section. CBC (HEMOGRAM ONLY) Routine 12/16/2019 5:13 AM R esults for this [employer] procedure are i n the results section. APTT Routine 12/16/2019 5:13 AM Results for this [employer] procedure are i n the results section. PHOSPHORUS Routine 12/16/2019 5:13 AM Results for this [employer] procedure are i n the results section. MAGNESIUM Routine 12/16/2019 5:13 AM Results for this [employer] procedure are i n the results section. BASIC METABOLIC PANEL Routine 12/16/2019 5:13 AM Results for this (7) [employer] procedure are i n the results section. POCT-GLUCOSE METER Routine 12/15/2019 9:20 PM Re sults for this [employer] procedure are i n the results section. APTT Routine 12/15/2019 4:14 AM Results for this [employer] procedure are i n the results section. PHOSPHORUS STAT 12/15/2019 4:10 AM Results for this [employer] procedure are i n the results section. MAGNESIUM STAT 12/15/2019 4:10 AM Results for this [employer] procedure are i n the results section. BASIC METABOLIC PANEL STAT 12/15/2019 4:10 AM Results for this (7) [employer] procedure are i n the results section. CBC (HEMOGRAM ONLY) Routine 12/15/2019 4:09 AM R esults for this [employer] procedure are i n the results section. PREPARE RBC STAT 12/14/2019 11:54 PM Results for this [employer] procedure are i n the results section. POCT-GLUCOSE METER Routine 12/14/2019 10:34 PM Re sults for this [employer] procedure are i n the results section. APTT Routine 12/14/2019 9:01 PM Results for this [employer] procedure are i n the results section. POCT-GLUCOSE METER Routine 12/14/2019 6:05 PM Re sults for this [employer] procedure are i n the results section. APTT Routine 12/14/2019 2:42 PM Results for this [employer] procedure are i n the results section. MAGNESIUM STAT 12/14/2019 1:58 PM Results for this [employer] procedure are i n the results section. BASIC METABOLIC PANEL STAT 12/14/2019 1:58 PM Results for this (7) [employer] procedure are i n the results section. POCT-GLUCOSE METER Routine 12/14/2019 1:47 PM Re sults for this [employer] procedure are i n the results section. POCT-GLUCOSE METER Routine 12/14/2019 9:00 AM Re sults for this [employer] procedure are i n the results section. APTT Routine 12/14/2019 7:52 AM Results for this [employer] procedure are i n the results section. XR CHEST 1 VIEW STAT 12/14/2019 7:50 AM Resul ts for this PORTABLE/BEDSIDE [employer] procedure a re in the results section. APTT Routine 12/14/2019 5:07 AM Results for this [employer] procedure are i n the results section. BLOOD GAS, ARTERIAL Routine 12/14/2019 5:07 AM R esults for this [employer] procedure are i n the results section. PHOSPHORUS STAT 12/14/2019 3:28 AM Results for this [employer] procedure are i n the results section. MAGNESIUM STAT 12/14/2019 3:28 AM Results for this [employer] procedure are i n the results section. BASIC METABOLIC PANEL STAT 12/14/2019 3:28 AM Results for this (7) [employer] procedure are i n the results section. CBC (HEMOGRAM ONLY) Routine 12/14/2019 3:28 AM R esults for this [employer] procedure are i n the results section. POCT-GLUCOSE METER Routine 12/13/2019 11:24 PM Re sults for this [employer] procedure are i n the results section. XR CHEST 1 VIEW STAT 12/13/2019 11:20 PM Resul ts for this PORTABLE/BEDSIDE [employer] procedure a re in the results section. CALCIUM, IONIZED Routine 12/13/2019 11:12 PM Resu lts for this [employer] procedure are i n the results section. BLOOD GAS, ARTERIAL Routine 12/13/2019 11:12 PM R esults for this [employer] procedure are i n the results section. MAGNESIUM Routine 12/13/2019 11:10 PM Results for this [employer] procedure are i n the results section. PHOSPHORUS Routine 12/13/2019 11:10 PM Results for this [employer] procedure are i n the results section. PROTHROMBIN TIME/INR Routine 12/13/2019 11:10 PM Results for this [employer] procedure are i n the results section. APTT Routine 12/13/2019 11:10 PM Results for this [employer] procedure are i n the results section. BASIC METABOLIC PANEL Routine 12/13/2019 11:10 PM Results for this (7) [employer] procedure are i n the results section. CBC (HEMOGRAM ONLY) Routine 12/13/2019 11:10 PM R esults for this [employer] procedure are i n the results section. POCT-ACT Routine 12/13/2019 9:38 PM Results for this [employer] procedure are i n the results section. POCT-ACT Routine 12/13/2019 8:51 PM Results for this [employer] procedure are i n the results section. HGB/HCT (H&H) - STAT STAT 12/13/2019 8:48 PM Results for this LAB [facility] procedure are i n the results section. GLUCOSE-STAT LAB STAT 12/13/2019 8:48 PM Resu lts for this [employer] procedure are i n the results section. POTASSIUM-STAT LAB STAT 12/13/2019 8:48 PM Re sults for this [employer] procedure are i n the results section. SODIUM NA-STAT LAB STAT 12/13/2019 8:48 PM Re sults for this [employer] procedure are i n the results section. BLOOD GAS, ARTERIAL STAT 12/13/2019 8:48 PM R esults for this [employer] procedure are i n the results section. CALCIUM, IONIZED STAT 12/13/2019 8:48 PM Resu lts for this [employer] procedure are i n the results section. BLOOD GAS, ARTERIAL STAT 12/13/2019 8:48 PM R esults for this [employer] procedure are i n the results section. POCT-ACT Routine 12/13/2019 8:17 PM Results for this [employer] procedure are i n the results section. TRANSFUSE Routine 12/13/2019 7:48 PM LEUKO-REDUCED RED [employer] BLOOD CELLS TRANSFUSE Routine 12/13/2019 7:46 PM LEUKO-REDUCED RED [employer] BLOOD CELLS POCT-ACT Routine 12/13/2019 7:37 PM Results for this [employer] procedure are i n the results section. HGB/HCT (H&H) - STAT STAT 12/13/2019 7:31 PM Results for this LAB [employer] procedure are i n the results section. GLUCOSE-STAT LAB STAT 12/13/2019 7:31 PM Resu lts for this [employer] procedure are i n the results section. POTASSIUM-STAT LAB STAT 12/13/2019 7:31 PM Re sults for this [employer] procedure are i n the results section. SODIUM NA-STAT LAB STAT 12/13/2019 7:31 PM Re sults for this [employer] procedure are i n the results section. BLOOD GAS, ARTERIAL STAT 12/13/2019 7:31 PM R esults for this [employer] procedure are i n the results section. CALCIUM, IONIZED STAT 12/13/2019 7:31 PM Resu lts for this [employer] procedure are i n the results section. BLOOD GAS, ARTERIAL STAT 12/13/2019 7:31 PM R esults for this [employer] procedure are i n the results section. POCT-ACT Routine 12/13/2019 6:54 PM Results for this [employer] procedure are i n the results section. HGB/HCT (H&H) - STAT STAT 12/13/2019 6:18 PM Results for this LAB [employer] procedure are i n the results section. GLUCOSE-STAT LAB STAT 12/13/2019 6:18 PM Resu lts for this [employer] procedure are i n the results section. POTASSIUM-STAT LAB STAT 12/13/2019 6:18 PM Re sults for this [employer] procedure are i n the results section. SODIUM NA-STAT LAB STAT 12/13/2019 6:18 PM Re sults for this [employer] procedure are i n the results section. BLOOD GAS, ARTERIAL STAT 12/13/2019 6:18 PM R esults for this [employer] procedure are i n the results section. LACTIC ACID, ARTERIAL STAT 12/13/2019 6:18 PM Results for this [employer] procedure are i n the results section. CALCIUM, IONIZED STAT 12/13/2019 6:18 PM Resu lts for this [employer] procedure are i n the results section. BLOOD GAS, ARTERIAL STAT 12/13/2019 6:18 PM R esults for this [employer] procedure are i n the results section. THROMBECTOMY-LOWER 12/13/2019 5:10 PM Ischemia [employer] ANGIOGRAM-LOWER 12/13/2019 5:10 PM Ischemia EXTREMITY [employer] HC ARTERIAL(RAFIQ W Routine 12/13/2019 12:51 PM Res ults for this DOPPLER)ONLY [employer] procedure are i n the results section. HC ARTERIAL DOPPLER STAT 12/13/2019 12:51 PM R esults for this LEGS WINTER [employer] procedure are i n the results section. URINALYSIS W/ REFLEX Routine 12/13/2019 11:33 AM Results for this URINE CULTURE [employer] procedure are in the results section. URINE CULTURE Routine 12/13/2019 11:33 AM Results for this [employer] procedure are i n the results section. CBC W/PLT COUNT & AUTO STAT 12/13/2019 11:31 AM Results for this DIFFERENTIAL [employer] procedure are i n the results section. APTT STAT 12/13/2019 11:31 AM Results for this [employer] procedure are i n the results section. PROTHROMBIN TIME/INR STAT 12/13/2019 11:31 AM Results for this [employer] procedure are i n the results section. PHOSPHORUS STAT 12/13/2019 11:31 AM Results for this [employer] procedure are i n the results section. MAGNESIUM STAT 12/13/2019 11:31 AM Results for this [employer] procedure are i n the results section. CBC W/PLT COUNT & AUTO STAT 12/13/2019 11:31 AM Results for this DIFFERENTIAL [employer] procedure are i n the results section. BASIC METABOLIC PANEL STAT 12/13/2019 11:31 AM Results for this (7) [employer] procedure are i n the results section. XR CHEST 1 VIEW STAT 12/13/2019 11:20 AM Resul ts for this PORTABLE/BEDSIDE [employer] procedure a re in the results section. POCT-ACT Routine 12/13/2019 10:38 AM Results for this [employer] procedure are i n the results section. POCT-ACT Routine 12/13/2019 9:24 AM Results for this [employer] procedure are i n the results section. POCT-ACT Routine 12/13/2019 9:10 AM Results for this [employer] procedure are i n the results section. HGB/HCT (H&H) - STAT STAT 12/13/2019 8:13 AM Results for this LAB [employer] procedure are i n the results section. GLUCOSE-STAT LAB STAT 12/13/2019 8:13 AM Resu lts for this [employer] procedure are i n the results section. POTASSIUM-STAT LAB STAT 12/13/2019 8:13 AM Re sults for this [employer] procedure are i n the results section. SODIUM NA-STAT LAB STAT 12/13/2019 8:13 AM Re sults for this [employer] procedure are i n the results section. BLOOD GAS, ARTERIAL STAT 12/13/2019 8:13 AM R esults for this [employer] procedure are i n the results section. CALCIUM, IONIZED STAT 12/13/2019 8:13 AM Resu lts for this [employer] procedure are i n the results section. BLOOD GAS, ARTERIAL STAT 12/13/2019 8:13 AM R esults for this [employer] procedure are i n the results section. REPAIR,EVAR-ENDOVASCUL 12/13/2019 7:03 AM Ruptured ab dominal AR AORTIC ANEURYSM [employer] aortic aneurysm (AAA) (HCC) Special Needs (ICU BED NEEDED) (CELLAVISION MANUAL STAT 12/13/2019 4:22 AM R esults for this DIFF) [employer] procedure are i n the results section. CBC WITH PLATELET COUNT STAT 12/13/2019 4:22 AM Results for this + MANUAL DIFF [employer] procedure are in the results section. PHOSPHORUS STAT 12/13/2019 4:22 AM Results for this [employer] procedure are i n the results section. MAGNESIUM STAT 12/13/2019 4:22 AM Results for this [employer] procedure are i n the results section. CBC W/PLT+MANUAL DIFF STAT 12/13/2019 4:22 AM Results for this [employer] procedure are i n the results section. HEMOGLOBIN A1C Routine 12/13/2019 4:22 AM Result s for this [employer] procedure are i n the results section. BASIC METABOLIC PANEL STAT 12/13/2019 4:22 AM Results for this (7) [employer] procedure are i n the results section. PREPARE RBC Routine 12/12/2019 10:21 PM Results for this [employer] procedure are i n the results section. POCT-GLUCOSE METER Routine 12/12/2019 9:26 PM Re sults for this [employer] procedure are i n the results section. PROTHROMBIN TIME/INR STAT 12/12/2019 6:32 PM Results for this [employer] procedure are i n the results section. POCT-GLUCOSE METER Routine 12/12/2019 4:40 PM Re sults for this [employer] procedure are i n the results section. BASIC METABOLIC PANEL Routine 12/12/2019 4:27 PM Results for this (7) [employer] procedure are i n the results section. VASCULAR DIAGRAM -SCAN 12/12/2019 Resul ts for this procedure are i n the results section. ANTIBODY IDENTIFICATION STAT 12/11/2019 4:23 PM Aneurysm o f Results for this [employer] infrarenal procedure are i n abdominal aorta the results (HCC) section. HC CAROTID DOPPLER WINTER Routine 12/11/2019 1:52 PM Aneurysm of Results for this [employer] infrarenal procedure are i n abdominal aorta the results (HCC) section. XR CHEST 2 VIEWS Routine 12/11/2019 12:33 PM Aneurysm of Resu lts for this [employer] infrarenal procedure are i n abdominal aorta the results (HCC) section. ECG 12-LEAD Routine 12/11/2019 12:01 PM [employer] Procedure Note - Interface, External Ris In - 12/11/2019 1:28 PM [employer] Ventricular Rate 59 BPM Atrial Rate 59 BPM P-R Interval 230 ms QRS Duration 88 ms Q-T Interval 490 ms QTC Calculation(Bazett) 485 ms P Yale 60 degrees R Yale 27 degrees T Yale 71 degrees Sinus bradycardia with 1st d egree A-V block Prolonged QT Abnormal ECG When compared with ECG of 15:05, No significant change was fo und ECG 12-LEAD Routine 12/11/2019 12:01 PM Aneurysm of Results for this [employer] infrarenal procedure are i n abdominal aorta the results (HCC) section. SARS-COV2/RT-PCR ([facility] Routine 12/11/2019 11:49 AM Pre-op test ing Results for this & REF LABS) [employer] procedure are i n the results section. (CELLAVISION MANUAL Routine 12/11/2019 10:38 AM Aneurysm of R esults for this DIFF) [employer] infrarenal procedure are i n abdominal aorta the results (HCC) section. CBC W/PLT COUNT & AUTO Routine 12/11/2019 10:38 AM Aneurysm of Results for this DIFFERENTIAL [employer] infrarenal procedure are i n abdominal aorta the results (HCC) section. DIRECT AHG STAT 12/11/2019 10:38 AM Aneurysm of Results for this (GARTH)/DIRECT LORETA [employer] infrarenal procedur e are in abdominal aorta the results (HCC) section. TYPE AND SCREEN, STAT 12/11/2019 10:38 AM Aneurysm of Resu lts for this AUTOMATED [employer] infrarenal procedure are i n abdominal aorta the results (HCC) section. HEMOGLOBIN A1C Routine 12/11/2019 10:38 AM Aneurysm of Result s for this [employer] infrarenal procedure are i n abdominal aorta the results (HCC) section. Pre-op testing LACTATE DEHYDROGENASE Routine 12/11/2019 10:38 AM Aneurysm of Results for this (LDH) [employer] infrarenal procedure are i n abdominal aorta the results (HCC) section. URINALYSIS W/ Routine 12/11/2019 10:38 AM Aneurysm of Results for this MICROSCOPIC [employer] infrarenal procedure are i n abdominal aorta the results (HCC) section. HEPATITIS C ANTIBODY Routine 12/11/2019 10:38 AM Aneurysm of Results for this [employer] infrarenal procedure are i n abdominal aorta the results (HCC) section. LIPASE Routine 12/11/2019 10:38 AM Aneurysm of Results for this [employer] infrarenal procedure are i n abdominal aorta the results (HCC) section. AMYLASE Routine 12/11/2019 10:38 AM Aneurysm of Results for this [employer] infrarenal procedure are i n abdominal aorta the results (HCC) section. HEPATITIS B PANEL Routine 12/11/2019 10:38 AM Aneurysm of Res ults for this FREIGHT TRUCKER infrarenal procedure are i n abdominal aorta the results (HCC) section. RETICULOCYTE COUNT Routine 12/11/2019 10:38 AM Aneurysm of Re sults for this FREIGHT TRUCKER infrarenal procedure are i n abdominal aorta the results (HCC) section. 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 PROTHROMBIN TIME/INR Routine 12/11/2019 10:38 AM Aneurysm of Results for this FREIGHT TRUCKER infrarenal procedure are i n abdominal aorta the results (HCC) section. PROTEIN, TOTAL Routine 12/11/2019 10:38 AM Aneurysm of Result s for this FREIGHT TRUCKER infrarenal procedure are i n abdominal aorta the results (HCC) section. ALT (SGPT) Routine 12/11/2019 10:38 AM Aneurysm of Results for this FREIGHT TRUCKER infrarenal procedure are i n abdominal aorta the results (HCC) section. AST (SGOT) Routine 12/11/2019 10:38 AM Aneurysm of Results for this FREIGHT TRUCKER infrarenal procedure are i n abdominal aorta the results (HCC) section. BILIRUBIN, DIRECT Routine 12/11/2019 10:38 AM Aneurysm of Res ults for this FREIGHT TRUCKER infrarenal procedure are i n abdominal aorta the results (HCC) section. BILIRUBIN, ADULT TOTAL Routine 12/11/2019 10:38 AM Aneurysm of Results for this FREIGHT TRUCKER infrarenal procedure are i n abdominal aorta the results (HCC) section. ALKALINE PHOSPHATASE Routine 12/11/2019 10:38 AM Aneurysm of Results for this FREIGHT TRUCKER infrarenal procedure are i n abdominal aorta the results (HCC) section. ALBUMIN Routine 12/11/2019 10:38 AM Aneurysm of Results for this FREIGHT TRUCKER infrarenal procedure are i n abdominal aorta the results (HCC) section. HC LAB HIV-1 AG Routine 12/11/2019 10:38 AM Aneurysm of Resul ts for this W/HIV-1&2 AB FREIGHT TRUCKER infrarenal procedure are i n abdominal aorta the results (HCC) section. BASIC METABOLIC PANEL Routine 12/11/2019 10:38 AM Aneurysm of Results for this (7) FREIGHT TRUCKER infrarenal procedure are i n abdominal aorta the results (HCC) section. CBC W/PLT COUNT & AUTO Routine 12/11/2019 10:38 AM Aneurysm of Results for this DIFFERENTIAL FREIGHT TRUCKER infrarenal procedure are i n abdominal aorta [...] are i n the results section. after 01/20/2019 Results POC ACTIVATED CLOTTING TIME (2020 11:24 AM FREIGHT TRUCKER)Only the most recent of9 resultswithin the time period is included. Activated Clotting 252 sec [facility] Comment: [facility] : 74-137 seconds, Baseline CENTER : TESTED AT [address], [address] : Turbine Assembler/Product Support Specialist ID = [id number] for CLAU GREGG Specimen Blood Performing Organization Address City/State/Zipcode Phone Number [address] [phone] CENTER ECG 12 lead (2020 10:50 AM FREIGHT TRUCKER)Only the most recent of3 resultswithin the time period is included. Specimen Narrative Performed At Ventricular Rate 51 BPM GE MUSE Atrial Rate 166 BPM QRS Duration 92 ms Q-T Interval 524 ms QTC Calculation(Bazett) 482 ms P Yale 41 degrees R Yale -6 degrees T Yale 56 degrees Sinus bradycardia Cannot rule out Anterior infarct , age u ndetermined Prolonged QT Abnormal ECG 18 DEC 2019 Sinus bradycardia replaced AVNRT ST no longer depressed precordial leads QT has shortened Confirmed by MD MUSHTAQ, RADHA ([id number]) on 2020 1:28:53 PM Procedure Note Interface, External Ris In - 2020 1:29 PM FREIGHT TRUCKER Ventricular Rate 51 BPM Atrial Rate 166 BPM QRS Duration 92 ms Q-T Interval 524 ms QTC Calculation(Bazett) 482 ms P Yale 41 degrees R Yale -6 degrees T Yale 56 degrees Sinus bradycardia Cannot rule out Anterior infarct , age u ndetermined Prolonged QT Abnormal ECG 18 DEC 2019 Sinus bradycardia replaced AVNRT ST no longer depressed precordial leads QT has shortened Confirmed by MD MUSHTAQ, [facility] ([id number]) on 2020 1:28:53 PM Performing Organization Address City/State/Zipcode Phone Number [place] CARDIAC CATH REPORT - SCAN (2020) Narrative Performed At This result has an attachment that is no t available. Ordered by an unspecified provider. SARS-CoV2/RT-PCR ([facility]) (01/03/2020 10:25 AM FREIGHT TRUCKER)Only the most recent of3 resultswithin the time period is included. SARS-COV2/RT-PCR Negative Not Detected, [facility]' Negative, See [facility] external report CENTER for linked test SARS-COV-2 [facility] PERFORMING LAB [facility] Specimen Other - Nasopharyngeal wall structure (b ludwig structure) Narrative Performed At Negative result for this test determines that [facility] SARS-CoV-2 RNA was not present in the [...] the Act. Fact Sheet for Healthcare Providers: https://www.Memvu/sites/default/files/pro duct/documents/Fact_Sheet_HC_Providers_Lyra_SA RS-CoV-2.pdf Fact Sheet for Healthcare Patients: https://www.Memvu/sites/default/files/pro duct/documents/Fact_Sheet_Patients_Lyra_SARS-C oV-2.pdf Performing Laboratory: [address] [address] Performing Organization Address City/[facility]/Zipcode Phone Number [address] [phone] [place] POC-Glucose meter (12/19/2019 7:18 AM FREIGHT TRUCKER)Only the most recent of21 results within the time period is included. Pathologist [facility] POC-Glucose Meter 121 (H) 70 - 110 mg/dL [facility] Comment: [facility] : TESTED AT [address], [address] CENTER : Turbine Assembler/Product Support Specialist ID = [id number] for YESSI EVRGARA Specimen Blood Performing Organization Address [facility]/Zipcode Phone Number [address] [phone] [place] CBC (hemogram only) (12/19/2019 4:49 AM FREIGHT TRUCKER)Only the most recent of7 results within the time period is included. Pathologist Sig nature WBC 48.4 (H) 3.5 - 10.5 K/L [facility] RBC 2.60 (L) 4.63 - 6.08 M/L [facility] Hemoglobin 8.4 (L) 13.7 - 17.5 GM/DL [facility] Hematocrit 27.2 (L) 40.1 - 51.0 % [facility] MCV 104.6 (H) 79.0 - 92.2 fL [facility] MCH 32.3 (H) 25.7 - 32.2 pg [facility] MCHC 30.9 (L) 32.3 - 36.5 GM/DL [facility] RDW 16.7 (H) 11.6 - 14.4 % [facility] Platelets 139 (L) 150 - 450 K/CU MM [facility] MPV 10.6 9.4 - 12.4 fL [facility] nRBC 0 0 - 0 /100 WBC [facility] Specimen Blood Performing Organization Address [facility] Phone Number [address] [address] CENTER Phosphorus (12/19/2019 4:49 AM FREIGHT TRUCKER)Only the most recent of9 resultswithin the time period is included. Pathologist Sig nature Phosphorus 2.9 2.3 - 4.7 mg/dL [facility] Specimen Blood Narrative Performed At Turbine Assembler AR - [facility] Performing Organization Address [facility] Phone Number [address] [address] CENTER Magnesium (12/19/2019 4:49 AM FREIGHT TRUCKER)Only the most recent of10 resultswithin the time period is included. Pathologist Sig nature Magnesium 2.1 1.6 - 2.6 mg/dL [facility] Specimen Blood Narrative Performed At Turbine Assembler [facility] Performing Organization Address [facility] Phone Number [address] [address] [place] Basic Metabolic Panel (12/19/2019 4:49 AM FREIGHT TRUCKER)Only the most recent of12 results within the time period is included. Sodium 140 136 - 145 meq/L [facility] Potassium 3.7 3.5 - 5.1 meq/L [facility] Chloride 109 (H) 98 - 107 meq/L [facility] CO2 25 22 - 29 meq/L [facility] BUN 20 7 - 21 mg/dL [facility] Creatinine 1.29 (H) 0.57 - 1.25 [facility] mg/dL [facility] Glucose 130 (H) 70 - 105 mg/dL [facility] Calcium 8.6 8.4 - 10.2 [facility] mg/dL [facility] EGFR 54Comment: ESTIMATED mL/min/1.[address] [facility] GFR IS NOT m [facility] ACCURATE [place] CREATININE CLEARANCE IN PREDICTING GLOMERULAR FILTRATION RATE. ESTIMATED GFR IS NOT APPLICABLE FOR DIALYSIS PATIENTS. Specimen Blood Narrative Performed At Turbine Assembler DEVI[place] - MARIELA M [facility] Performing Organization Address City/[facility]/Zipcode Phone Number [facility] [address] [place] [address] CENTER aPTT (12/16/2019 5:13 AM FREIGHT TRUCKER)Only the most recent of9 resultswithin the time period is included. Pathologist Sig nature PTT 39.6 (H) 22.5 - 36.0 seconds [facility] Specimen Blood Performing Organization Address City/[facility]/Zipcode Phone Number [facility] [address] [place] [address] CENTER Prepare RBC (12/14/2019 11:54 PM FREIGHT TRUCKER)Only the most recent of2 resultswithin the time period is included. Pathologist Sig nature Unit ABO O Pos SAFETRACE TX UNIT NUMBER [id number] [place]AFET[place]ACE TX Status TX_TIMEINCHART SAFET[place]ACE [place] Blood Bank Product RED BLOOD CELLS SAFETRACE [place] PRODUCT CODE [id number] SAFETRACE TX Unit ABO O Pos SAFETRACE TX UNIT NUMBER [id number] SAFETRACE TX Status WORK IN PROGRESS SAFETRACE TX Blood Bank Product RED BLOOD CELLS SAFETRACE TX PRODUCT CODE [id number] SAFETRACE TX Unit ABO A Pos SAFETRACE TX UNIT NUMBER [id number] SAFETRACE TX Status TX_TIMEINCHART SAFETRACE TX Blood Bank Product RED BLOOD CELLS SAFETRACE TX PRODUCT CODE [id number] SAFETRACE TX Unit ABO A Pos SAFETRACE TX UNIT NUMBER [id number] SAFETRACE TX Status WORK IN PROGRESS SAFETRACE TX Blood Bank Product RED BLOOD CELLS SAFETRACE TX PRODUCT CODE [id number] SAFETRACE TX CROSSMATCH INCOMPATIBLE SAFETRACE TX CROSSMATCH INCOMPATIBLE SAFETRACE TX CROSSMATCH INCOMPATIBLE SAFETRACE TX CROSSMATCH INCOMPATIBLE SAFETRACE TX Performing Organization Address City/State/Zipcode Phone Number SAFETRACE TX XR chest 1 view portable / bedside (12/14/2019 7:50 AM FREIGHT TRUCKER)Only the most recent of3 resultswithin the time period is included. Specimen Narrative Performed At FINAL REPORT [facility] Chest, one view. HISTORY: post-extubation COMPARISON: Radiograph [...] abdominal pain, consider a KUB . Signed: Ronni Pereira MD Report Verified Date/Time: 12/14/2019 08:16:23 Reading Location: [facility] C013Y CT Body R eading Room Procedure Note Interface, External Ris In - 12/14/2019 8:18 AM FREIGHT TRUCKER FINAL REPORT Chest, one view. HISTORY: post-extubation [...] abdominal pain, consider a KUB . Signed: Ronni Pereira MD Report Verified Date/Time: 12/14/2019 0 8:16:23 Reading Location: [facility] B1 C013Y CT Body R eading Room Performing Organization Address City/[facility] Phone Number [facility] Blood gas, arterial (12/14/2019 5:07 AM FREIGHT TRUCKER)Only the most recent of6 results within the time period is included. Pathologist Sig nature pH, Arterial 7.39 7.35 - 7.45 [facility] pCO2, Arterial 36 35 - 45 mm Hg [facility] pO2, Arterial 112 (H) 80 - 90 mm Hg [facility] O2 Sat, Arterial 97.8 (H) 96.0 - 97.0 % [facility] HCO3, Arterial 21 21 - 29 mmol/L [facility] Base Excess, Arterial -3.4 (L) -2.0 - 3.0 [facility] mmol/L [facility] Patient Temperature 38.4 [facility] FIO2 60.0 [facility] Specimen Blood, Arterial Performing Organization Address City/[facility] Phone Number [address] [address] CENTER Calcium, Ionized (12/13/2019 11:12 PM FREIGHT TRUCKER)Only the most recent of5 resultswithin the time period is included. Pathologist Sig nature Calcium, Ion 1.20 1.12 - 1.27 mmol/L [facility] pH, Blood 7.31 [facility] Specimen Blood Performing Organization Address City/[facility] Phone Number [address] [address] CENTER Prothrombin time/INR (12/13/2019 11:10 PM FREIGHT TRUCKER)Only the most recent of4 results within the time period is included. Pathologist Sig nature Protime 17.6 (H) 11.9 - 14.2 seconds [facility] INR 1.49 <=5.90 [facility] Specimen Blood Narrative Performed At Effective 07/04/2018: PT Reference Range [facility] Change New: 11.9-14.2 Previous: 11.7-14.7 RECOMMENDED COUMADIN/WARFARIN INR THERAPY RANGES STANDARD DOSE: 2.0-3.0 Includes: PROPHYLAXIS for venous thrombosis, systemic embolization; TREATMENT for venous thrombosis and/or pulmonary embolus. HIGH RISK: Target INR is 2.5-3.5 for patients wiht mechanical heart valves. Performing Organization Address City/[facility] Phone Number [address] [address] CENTER Potassium-Stat Lab (12/13/2019 8:48 PM FREIGHT TRUCKER)Only the most recent of4 results within the time period is included. Pathologist Sig nature Potassium 4.0 3.6 - 5.5 meq/L [facility] Specimen Blood, Arterial Performing Organization Address City/[facility] Phone Number [address] [address] CENTER Sodium Na-Stat Lab (12/13/2019 8:48 PM FREIGHT TRUCKER)Only the most recent of4 results within the time period is included. Pathologist Sig nature Sodium 138 136 - 145 meq/L [facility] Specimen Blood, Arterial Performing Organization Address [facility] Phone Number [address] [address] CENTER Glucose-Stat Lab (12/13/2019 8:48 PM FREIGHT TRUCKER)Only the most recent of4 resultswithin the time period is included. Pathologist Sig [facility] Glucose 138 (H) 70 - 110 mg/dL [facility] Specimen Blood, Arterial Performing Organization Address [facility]/Zipcode Phone Number [address] [address] [place] HGB/HCT (H&H)-Stat Lab (12/13/2019 8:48 PM FREIGHT TRUCKER)Only the most recent of4 resultswithin the time period is included. Pathologist Sig [facility] Hemoglobin 10.1 (L) 13.0 - 16.8 GM/DL [facility] Hematocrit 30.0 (L) 40.0 - 50.0 % [facility] Specimen Blood, Arterial Performing Organization Address [facility] Phone Number [address] [address] [place] Transfuse Leuko-Red RBC (12/13/2019 7:48 PM FREIGHT TRUCKER)Only the most recent of2 resultswithin the time period is included.Lactic Acid, Arterial (12/13/2019 6:18 PM FREIGHT TRUCKER) Pathologist Sig [facility] Lactate, Art 0.7 0.5 - 2.2 mmol/L [facility] Specimen Blood, Arterial Narrative Performed At Turbine Assembler ID - BS [facility] Performing Organization Address [facility] Phone Number [address] [address] CENTER RAFIQ's Only(Ankle/Brachial Index) (12/13/2019 12:51 PM FREIGHT TRUCKER) Pathologist Sig [facility] Ejection Fraction [facility] ECHO HEARTLAB [facility] Specimen Impressions Performed At Right Impression [facility] 1. The posterior tibial and dorsalis pedis [...] are measured in cm Narrative Performed At PV LAB - Lower Extremity Arterial Proced [facility] Demographics Patient Name DUKE TERRY Date of Study 12/13/2019 DEBORAH III Age 74 Visit Number [id number] Gender Male Accession Number [id number] Date of 1945 Referring delano payne Room Number 2C20 Physician Propeller Engineer Cm Anderson RVS Interpreting Cyndi Pastor RVT [...] External Ris In - 12/14/2019 9:47 AM FREIGHT TRUCKER PV LAB - Lower Extremity Arterial Procedure Demographics Patient Name DUKE TERRY ate of Study 12/13/2019 DEBORAH III A ge 74 Visit Number [id number] G willard Male Accession Number [id number] D ate of 1945 Referring delano juarez Number [id number] Physician Propeller Engineer Cm Anderson RVS I nterpreting Cyndi Pastor [...] cm Performing Organization Address City/State/Zipcode Phone Number [facility]CHO [facility] Arterial doppler legs bilateral (12/13/2019 12:51 PM FREIGHT TRUCKER) [facility] nature Ejection Fraction [facility]CHO [facility] Specimen Impressions Performed At Right Impression [facility] ECHO HEARTLAB [facility] 1. The common femoral, profunda [...] + + + + + + !Prox [employer] WRAPPER MAKER ! !143 ! ! ! !0 ! ! ! + + + + + + + + + + !Mid [employer] WRAPPER MAKER ! !23.6 ! ! ! !0 ! ! ! + + + + + + + + + + !Dist [place] WRAPPER MAKER ! !0 ! ! ! !0 ! [...] + + + + Narrative Performed At [facility] - Lower Extremity Arterial Duplex [facility] Demographics Patient Name DUKE TERRY Date of Study 12/13/2019 DEBORAH III Age 74 Visit Number [id number] Gender Male Accession Number [id number] Date of 1945 Referring Oneil Wick Room Number 2C20 Physician Propeller Engineer Cm Anderson RVS Interpreting Cyndi Pastor RVT [...] External Ris In - 12/14/2019 9:47 AM FREIGHT TRUCKER PV LAB - Lower Extremity Arterial Duplex Demographics Patient Name DUKE TERRY ate of Study 12/13/2019 DEBORAH III A ge 74 Visit Number [id number] G willard Male Accession Number [id number] D ate of 1945 Referring Oneil juarez Number [id number] Physician Propeller Engineer Cm Anderson RVS I nterpreting Cyndi Pastor RVT Norman story MD Procedure Type of Study: Extremities Arteries: Lower Extremities Arterial Duplex, ARTERIAL DOPPLER LEGS, BILATERAL. Indications for Study:Absent pulses. Patient Status:STAT. Study Location:Portable. Technical Quality:Adequate visualization . - Results were reported to:Dr. Jonathan Mills @ 1300. Risk Factors History of [...] + + + + + + !Prox [place] WRAPPER MAKER ! !143 ! ! ! !0 ! ! ! + + + + + + + + + + !Mid [place] WRAPPER MAKER ! !23.6 ! ! ! !0 ! ! ! + + + + + + + + + + !Dist [place] WRAPPER MAKER ! !0 ! ! ! !0 ! [...] + Reflex to Culture (12/13/2019 11:33 AM FREIGHT TRUCKER) Color, UA Light Yellow [facility] Clarity, UA Cloudy [facility] Specific Nathalie, 1.036 (H) 1.001 - 1.035 [facility] pH, UA 6.0 5.0 - 8.0 [facility] Protein, UA 30 mg/dL (A) Negative [facility] Glucose, UA Negative Negative [facility] Ketones, UA Negative Negative [facility] Bilirubin, UA Negative Negative [facility] Blood, UA Small (A) Negative [facility] Nitrite, UA Negative Negative [facility] Leukocytes, UA Large (A) Negative [facility] Urobilinogen, UA 0.2 0.2 - 1.0 mg/dL [facility] RBC, UA 18 /HPF [facility] WBC, UA 769 /HPF [facility] Bacteria, UA Rare [facility] Specimen Source [facility] Specimen Urine - Urinary catheter, device (physic al object) Narrative Performed At Turbine Assembler ID - [auto] [facility] Turbine Assembler ID - tech Performing Organization Address City/[facility]/Zipcode Phone Number [address] [address] CENTER Urine culture (12/13/2019 11:33 AM FREIGHT TRUCKER) Pathologist Sig nature Result No growth [facility] ICAL [place] Specimen Urine - Urinary catheter, device (physic al object) Performing Organization Address [facility]/Zipcode Phone Number [address] [address] [place] CBC with platelet count + automated diff (12/13/2019 11:31 AM FREIGHT TRUCKER)Only the most recent of2 resultswithin the time period is included. Pathologist Sig nature WBC 67.7 (HH) 3.5 - 10.5 K/L [facility] RBC 2.72 (L) 4.63 - 6.08 M/L [facility] Hemoglobin 8.6 (L) 13.7 - 17.5 GM/DL [facility] Hematocrit 26.8 (L) 40.1 - 51.0 % [facility] MCV 98.5 (H) 79.0 - 92.2 fL [facility] MCH 31.6 25.7 - 32.2 pg [facility] MCHC 32.1 (L) 32.3 - 36.5 GM/DL [facility] RDW 17.5 (H) 11.6 - 14.4 % [facility] Platelets 155 150 - 450 K/CU MM [facility] MPV 10.4 9.4 - 12.4 fL [facility] nRBC 0 0 - 0 /100 WBC [facility] Specimen Blood Performing Organization Address City/State/Zipcode Phone Number [facility] [address] [place] [address] CENTER CBC with platelet count + manual diff (12/13/2019 4:22 AM FREIGHT TRUCKER) Pathologist Sig nature WBC 64.8 (HH) 3.5 - 10.5 K/L [facility] RBC 2.93 (L) 4.63 - 6.08 M/L [facility] Hemoglobin 9.1 (L) 13.7 - 17.5 GM/DL [facility] Hematocrit 28.7 (L) 40.1 - 51.0 % [facility] MCV 98.0 (H) 79.0 - 92.2 fL [facility] MCH 31.1 25.7 - 32.2 pg [facility] MCHC 31.7 (L) 32.3 - 36.5 GM/DL [facility] RDW 17.4 (H) 11.6 - 14.4 % [facility] Platelets 172 150 - 450 K/CU MM [facility] MPV 10.1 9.4 - 12.4 fL [facility] nRBC 0 0 - 0 /100 WBC [facility] Specimen Blood Performing Organization Address City/State/Zipcode Phone Number [facility] [address] [place] [address] CENTER Manual Differential (12/13/2019 4:22 AM FREIGHT TRUCKER)Only the most recent of2 results within the time period is included. Pathologist Sig nature % Neutros 4 % [facility] % Lymphs 92 % [facility] % Eos 2 % [facility] % Metamyelo 1 (H) 0 - 0 % [facility] % Atypical Lymphs 1 (H) 0 - 0 % [facility] # Neutros 2.59 1.78 - 5.38 [facility] # Lymphs 59.62 (H) 1.32 - 3.57 [facility] # Eos 1.30 (H) 0.04 - 0.54 [facility] # Metamyelo 0.65 (H) 0.00 - 0.00 [facility] # Atypical Lymphs 0.65 (H) 0.00 - 0.00 [facility] Total Counted 100 [facility] RBC Morphology Normal [facility] WBC Morphology Normal [facility] Platelet Morphology Normal [facility] Specimen Blood Narrative Performed At Turbine Assembler ID - [id number] [facility] Performing Organization Address City/State/Zipcode Phone Number [facility] [address] [place], [place] [phone] CENTER Hemoglobin A1c (12/13/2019 4:22 AM FREIGHT TRUCKER)Only the most recent of2 resultswithin the time period is included. Pathologist Sig nature Hemoglobin A1C 5.2 4.3 - 6.1 % [facility] Specimen Blood Narrative Performed At Please recheck [facility] Please recheck Performing Organization Address City/State/Zipcode Phone Number [facility] [address] [place] [address] CENTER VASCULAR DIAGRAM -SCAN (12/12/2019) Narrative Performed At This result has an attachment that is no t available. Ordered by an unspecified provider. Antibody identification (12/11/2019 4:23 PM FREIGHT TRUCKER) ANTIBODY ID UNID IgG [place] (MAREK) WARM AUTO AB Antibody Consult SIGNED OUTComment: Warm [place] panagglutinin detected, ok to transfuse incompatible bloodElectronic Signature: Shmuel Woo M.D. Specimen Performing Organization Address City/[facility] Phone Number [place] Carotid doppler bilateral (12/11/2019 1:52 PM FREIGHT TRUCKER) Pathologist Sig nature Ejection Fraction [facility] Specimen Impressions Performed At Right Impression [facility] ECHO HEARTLAB [facility] 1. There is <50% diameter reduction (approximately [...] At PV LAB - Carotid Duplex Study [facility] ECHO HEARTLAB MKCKESSON [facility] Demographics Patient Name DUKE TERRY Date of Study 12/11/2019 DEBORAH III Age 74 Visit Number [id number] Gender Male Accession Number [id number] Date of 1945 Referring Casey Payne NP Room Number Physician Propeller Engineer Peter Forbes T Interpreting Caryl Gao, Physician [...] External Ris In - 12/12/2019 7:51 AM FREIGHT TRUCKER PV LAB - Carotid Duplex Study Demographics Patient Name DUKE TERRY D ate of Study 12/11/2019 DEBORAH III A ge 74 Visit Number [id number] G willard Male Accession Number [id number] D ate of 1945 Referring MUNA Ziegler Number Physician Propeller Engineer Peter Forbes T I nterpreting Norman Pastor [...] Measurements:ICAPSV/CCAPS V 0.85.ICAEDV/CCAEDV 0.94. Performing Organization Address [facility] Hospitalcode Phone Number SLE ECHO HEARTLAB MKCKESSON CPACS XR chest 2 views (12/11/2019 12:33 PM FREIGHT TRUCKER) Specimen Narrative Performed At FINAL REPORT GE RIS PA and Lateral views of the chest dated 12/11/2019 Clinical information: pre-op Comment: Heart is normal in size. Thor acic aorta is ectatic. Pulmonary vasculature is unremarkable. L ungs are clear. No pulmonary infiltrate or pleural effusion is presen t. Impression: No active cardiopulmonary disease. Signed: Vamsi Johns MD Report Verified Date/Time: 12/11/2019 13:32:39 Reading Location: [employer] y Reading Room Procedure Note Interface, External Ris In - 12/11/2019 1:34 PM FREIGHT TRUCKER FINAL REPORT PA and Lateral views of the chest dated 12/11/2019 Clinical information: pre-op Comment: Heart is normal in size. Thora cic aorta is ectatic. Pulmonary vasculature is unremarkable. L ungs are clear. No pulmonary infiltrate or pleural effusion is presen t. Impression: No active cardiopulmonary d isease. Signed: Vamsi Johns MD Report Verified Date/Time: 12/11/2019 1 3:32:39 Reading Location: [employer] y Reading Room Performing Organization Address [facility] Hospitalcode Phone Number GE RIS Type and screen, automated (12/11/2019 10:38 AM FREIGHT TRUCKER) ABO/RH AUTOMATED A POSITIVE [facility] (BEAKER) [facility] Ab Scrn POSITIVEComment: [address] Specimen Blood Performing Organization Address [facility]/Zipcode Phone Number [facility] [address] [place] [address] HIV-1 Antigen with HIV-1/2 Antibody (12/11/2019 10:38 AM FREIGHT TRUCKER) Pathologist Sig nature HIV-1 Antigen with Nonreactive Nonreactive [facility] HIV 1&2 Antibody [facility] Specimen Blood Narrative Performed At Turbine Assembler ID - [facility] Performing Organization Address City/[facility] Hospitalcode Phone Number [address] [address] [place] Hepatitis B Panel (12/11/2019 10:38 AM FREIGHT TRUCKER) Pathologist Sig nature Hep B Core Total Ab Nonreactive Nonreactive [facility] Hep B S Ab <8.0 <8.0 mIU/mL [facility] HBsAg Screen Nonreactive Nonreactive [facility] Specimen Blood Narrative Performed At [facility]ine Assembler [facility] - [facility] Performing Organization Address [facility] Phone Number [address] [address] [place] Hepatitis C antibody (12/11/2019 10:38 AM FREIGHT TRUCKER) Pathologist Sig nature Hepatitis C Ab Nonreactive Nonreactive [facility] Specimen Blood Narrative Performed At [facility]urbine Assembler ID - [facility] Performing Organization Address [facility] Phone Number [address] [address] [place] Urinalysis w/Microscopic (12/11/2019 10:38 AM FREIGHT TRUCKER) Color, UA Light Yellow [facility] Clarity, UA Hazy [facility] Specific Nathalie, 1.011 1.001 - 1.035 [facility] pH, UA 6.5 5.0 - 8.0 [facility] Protein, UA 10 mg/dL (A) Negative [facility] Glucose, UA 1000 mg/dL (A) Negative [facility] Ketones, UA Negative Negative [facility] Bilirubin, UA Negative Negative [facility] Blood, UA Small (A) Negative [facility] Nitrite, UA Negative Negative [facility] Leukocytes, UA Large (A) Negative [facility] Urobilinogen, UA 0.2 0.2 - 1.0 mg/dL [facility] RBC, UA 4 /HPF [facility] WBC, UA 152 /HPF [facility] Mucus Rare [facility] Squam Epithel, UA <1 /HPF [facility] Specimen Source [facility] Specimen Urine Narrative Performed At Turbine Assembler ID - [auto] [facility] Turbine Assembler ID - tech Performing Organization Address [facility] Phone Number [address] [address] CENTER Reticulocyte count (12/11/2019 10:38 AM FREIGHT TRUCKER) Pathologist Sig nature % Retic 3.3 (H) 0.5 - 1.8 % [facility] Specimen Blood Narrative Performed At Turbine Assembler ID - [id number] Performing Organization Address [facility] Phone Number [address] [address] CENTER Direct [facility] (GARTH)/Direct Loreta (12/11/2019 10:38 AM FREIGHT TRUCKER) Pathologist Sig nature Direct [facility]-IGG POSITIVEComment [facility]+ [facility] Direct [facility]-C3B, C3D POSITIVEComment [facility] : Micro+ [facility] Specimen Blood Performing Organization Address [facility]code Phone Number [address] [address] ALT (SGPT) (12/11/2019 10:38 AM FREIGHT TRUCKER) Pathologist Sig nature ALT 12 6 - 55 U/L [facility] Specimen Blood Narrative Performed At Turbine Assembler ID - [facility] Performing Organization Address City/[facility] Phone Number [address] [address] CENTER AST (SGOT) (12/11/2019 10:38 AM FREIGHT TRUCKER) Pathologist Sig nature AST 12 5 - 34 U/L [facility] Specimen Blood Narrative Performed At [facility]urbine Assembler ID - [facility] Performing Organization Address [facility] Phone Number [address] [address] CENTER Protein, total (12/11/2019 10:38 AM FREIGHT TRUCKER) Pathologist Sig [facility] Protein, Total 6.1 6.0 - 8.3 gm/dL [facility] Specimen Blood Narrative Performed At [facility]urbine Assembler ID - [facility] Performing Organization Address [facility] Phone Number [address] [address] CENTER Alkaline phosphatase (12/11/2019 10:38 AM FREIGHT TRUCKER) Pathologist Sig nature Alkaline Phosphatase 93 40 - 150 U/L [facility] Specimen Blood Narrative Performed At Turbine Assembler ID - [facility] Performing Organization Address City/[facility] Phone Number [address] [address] CENTER Lipase (12/11/2019 10:38 AM FREIGHT TRUCKER) Pathologist Sig nature Lipase 22 8 - 78 U/L [facility] Specimen Blood Narrative Performed At [facility]urbine Assembler ID - [facility] Performing Organization Address City/State/Zipcode Phone Number [address] [address] CENTER Lactate dehydrogenase (LDH) (12/11/2019 10:38 AM FREIGHT TRUCKER) Pathologist Sig nature LDH 177 125 - 220 U/L [facility] Specimen Blood Narrative Performed At Turbine Assembler ID - ADMIN [facility] Performing Organization Address [facility] Phone Number [address] [address] CENTER Bilirubin, direct (12/11/2019 10:38 AM FREIGHT TRUCKER) Pathologist Sig nature Bilirubin, Direct 0.4 0.1 - 0.5 mg/dL [facility] Specimen Blood Narrative Performed At [facility]urbine Assembler ID - [facility] Performing Organization Address [facility] Phone Number [address] [address] [place] Bilirubin, adult total (12/11/2019 10:38 AM FREIGHT TRUCKER) Pathologist Sig nature Total Bilirubin 0.9 0.2 - 1.2 mg/dL [facility] Specimen Blood Narrative Performed At [facility]urbine Assembler ID [facility] Performing Organization Address [facility] Phone Number [address] [address] CENTER Amylase (12/11/2019 10:38 AM FREIGHT TRUCKER) Pathologist Sig nature Amylase 30 25 - 125 U/L [facility] Specimen Blood Narrative Performed At Turbine Assembler ID - [facility] Performing Organization Address [facility] Phone Number [address] [address] CENTER Albumin (12/11/2019 10:38 AM FREIGHT TRUCKER) Pathologist Sig nature Albumin 4.1 3.5 - 5.0 g/dL [facility] Specimen Blood Narrative Performed At Turbine Assembler ID - ADMIN [facility] Performing Organization Address City/State/Zipcode Phone Number [facility] [address] [place] [address] CENTER Pulmonary Funct Lab Spirometry (11/21/2019 10:30 AM CDT) Narrative Performed At Bianca Ly, MARIBEL, HEALTH UNDERWRITER 020 12:[address] [facility] PFT CHARTING REPORT Infection Control/Hand Hygiene procedure s followed throughout the encounter with patient: Yes Patient Identification Method: Patient n bairon verified on armband, and Medical record on armband, Is the order complete?: Yes Account ID#: [id number] Patient Name: Duke Terry III Birthdate: 1945 Age: 74 y.o. [...] SpO2 95 98 99 Study Date: 11/21/19 [facility] Time: 1050 ASSESSMENT History & Physical Mode [...] evaluation, multiplanar reconstruction, maximum intensity projections, and [employer]an [employer] 3-D off-line postprocessing were performed on a dedic ated stand-alone workstation under the direct supervision of the inte [facility] physician. FINDINGS: Potential study limitations: None. LINES/ [...] nonobstructing atherosclerotic changes throughout the abdominal aorta. Candle Cutter dimensions of the thoraci c aorta are [...] Report Verified Date/Time: 11/05/2019 14:08:15 Reading Location: [facility] 3 - B01.625 Procedure Note Interface, External Ris In [...] evaluation, multiplanar reconstruction, maximum intensity projections, and [employer]an [employer] 3-D off-line postprocessing were performed on a Moxie Jean ated stand-alone workstation under the direct supervision of the inte [facility] physician. FINDINGS: Potential study limitations: None. LINES/ [...] nonobstructing atherosclerotic changes throughout the abdominal aorta. Candle Cutter dimensions of the thoraci c aorta are [...] Verified Date/Time: 11/05/2019 1 4:08:15 Reading Location: [address] B01.625 Performing Organization Address City/State/Zipcode Phone Number [employer] CT/CTA abdomen & pelvis - For AAA (11/05/2019 8:01 AM CDT) Specimen Narrative Performed At FINAL REPORT [employer] EXAM: CTA OF THE THORACOABDOMINAL AORTA AND [...] evaluation, multiplanar reconstruction, maximum intensity projections, and advan kaye 3-D off-line postprocessing were performed on a dedic ated stand-alone workstation under the direct supervision of the inte [facility] physician. FINDINGS: Potential study limitations: None. LINES/ [...] nonobstructing atherosclerotic changes throughout the abdominal aorta. Candle Cutter dimensions of the thoraci c aorta are [...] Report Verified Date/Time: 11/05/2019 14:08:15 Reading Location: [facility] 3 - B01.625 Procedure Note Interface, External Ris In [...] evaluation, multiplanar reconstruction, maximum intensity projections, and advan kaye 3-D off-line postprocessing were performed on a dedic ated stand-alone workstation under the direct supervision of the [facility] physician. FINDINGS: Potential study limitations: None. LINES/ [...] nonobstructing atherosclerotic changes throughout the abdominal aorta. Candle Cutter dimensions of the thoraci c aorta are [...] Verified Date/Time: 11/05/2019 1 4:08:15 Reading Location: [place] [address] Performing Organization Address City/State/Zipcode Phone Number [facility] POC-Creatinine (11/05/2019 7:25 AM CDT) POC-Creatinine 1.7 (H)Comment: : 0.6 - 1.[address] [facility] ST GRANADOS TESTED AT [facility] mg/dL [facility] [address] [place] [id number]: Turbine Assembler/Technicia n ID = [id number] for IRVIN LOMBARDI POC-EGFR 40 mL/min/1.73M2 [facility] Specimen Blood Performing Organization Address City/[facility]/Zipcode Phone Number [facility] [address] [place], [place] [phone] CENTER after 01/20/2019 Insurance Payer Benefit Plan / Subscriber ID Effective Dates Phone Addre ss Type Group MEDICARE MEDICARE A B [id number] 2009-Presen Medicare [facility]/[place] [id number] 2019-Present Medigap SUPPLEMENT/[facility] [employer] Advance Directives For more information, please contact: [phone] Code Status Date Activated Date Inactivated Comments [...]
--- OUTSIDE RECORDS SUMMARY | 2020-01-21 18:21 | XMS REPORT | Continuity of Care Document ---
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/27/19 06/01/2017 [place] reflux uropathy, 18 Yogesh d unspecified Hematuria, 05/27/19 06/01/2017 [place] unspecified 18 [place] LUMBAR STENOSIS Active 08/20/[id number] M54.16 - Active 07/21/19 OPIMarcio "RADICULOPATHY, 17 Herm torin LUMBAR REGION" Cerebrovascular Resolved Problem 03/27/2018 Mis terrence accident Neuro, (disorder) [facility], PRECIOUS Clements,Diana Chavez, PRECIOUS [facility] [place] Hematoma Resolved Problem 03/27/2018 [facility] (disorder) Neuro,[facility], PRECIOUS Clements,M Jaquelin Chavez, OPIMarcio [facility] [place] 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/27/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, systemic N euro, arterial [place] (disorder) [facility], PRECIOUS Clements,M Jaquelin Chavez, OPIMarcio [facility] [place] Malignant tumor of Resolved Problem 03/27/2018 [facility] urinary bladder Neur o, (disorder) [facility], PRECIOUS Clements,Diana Chavez, OPIMarcio [facility] [place] Medications Medication Details Route Status Patient Ordering Order Source Instructions Provider Date Docusate Sodium Notes: (Same Inactive Sugar 50 MG / as Senokot-S) 2017 [facility] sennosides, [facility] Equiv. to 8.6 MG Oral Rachelle-Colace. Tablet Docusate Sodium 1 tab, PO, Active 05/29/ Gray gar 50 MG / BID, X 14 day, 2017 [facility] sennosides, [facility] # 28 tab, 0 8.6 MG Oral Refill(s), Tablet Pharmacy: [facility] [id number] ciprofloxacin 500 500 mg = 1 Active [place] mg oral tablet tab, PO, Q12H, 2018 [place] X 7 day, # 14 tab, 0 Refill(s), Pharmacy: [facility] [id number] Demarcus Notes: May Inactive Sugar interfere 2018 [...] No Longer Sugar MG / Hydrocodone as: [place] Active 2017 [place] Bitartrate 5 MG 325/5) [...] MG TAB, Dosing Oral Tablet Weight 89.545, [[place] 5/325] kg, ONCE, STAT, Start date: 05/26/17 [...] DO NOT Inactive [place]. 2017 [facility] Lisinopril Notes: (Same No Longer Javad as as: Prinivil, Active 2017 Medical Zestril) [place] Famotidine 20 MG 20 mg = 1 tab, Active [facility] Oral Tablet PO, BID, # 20 2017 Medica l tab, 0 Center Refill(s) magnesium citrate 8.725 gm = 150 No Longer 09/23 [facility] 58.2 MG/ML Oral ml, PO, Daily, Active 2016 M edical Solution X 2 day, # 300 Center mL, 0 Refill(s) Acetaminophen 325 1 tab, PO, Active [facility] MG / Hydrocodone Q6H, PRN for 2017 Ct dical Bitartrate 10 MG pain, X 14 Cent er Oral Tablet day, # 90 tab, [[place] 10/325] 0 Refill(s) Methocarbamol 500 500 mg = 1 Active [facility] MG Oral Tablet tab, PO, Q8H, 2017 Med ical [Robaxin] PRN Spasms, X Center 10 day, # 30 tab, 0 Refill(s) {21 See Active [facility] (Methylprednisolo Instructions, 2017 Medical ne 4 [...] 2017 Medical (Do Not Crush) Center sennosides, [facility] Notes: (Same No Longer [facility] [place] as: Senokot) Active [...] Acetaminophen 325 Notes: Do not No Longer [place] MG / Hydrocodone exceed 4gm/day Active 2016 [facility] Bitartrate 10 MG of Center Oral Tablet acetaminophen. [[place] 10/325] (Same as: [place] 325/10) Dilaudid Notes: Same No Longer [facility] as: Dilaudid Active 2017 Medical [place] Bisacodyl Notes: (Same No Longer [place] As: Dulcolax, Active 2016 [facility] Bisco-Lax) Center phenol Notes: No Longer [facility] Chloraseptic Active 2016 Medical [place] (Same Center as: Chloraseptic, Sore Throat [place]) WASTE: F/P - Black; E - [facility] [employer] Melatonin 3 MG Notes: (Same No Longer [facility] Extended Release as: Melatonin) Active 2017 Medical Tablet Center Benadryl Notes: (Same No Longer [facility] as: Benadryl) Active 2017 Medical Center ceFAZolin Notes: Same No Longer [facility] as: Ancef Active 2016 Medical Center Allergies, Adverse Reactions, Alerts No Known Medication Allergies Immunizations No Data Provided for This Section Results Order Name Results Value Reference Date Interpretation Comments Sulema rce Range HEMATOLOGY MCHC 32.2 32.0 - 05/29 [place] 36.0 2018 [facility] HEMATOLOGY MPV 8.6 7.4 - 10.4 05/29 [facility] HEMATOLOGY Platelet 222 133 - 450 05/29 [...] HEMATOLOGY Platelet 225 133 - 450 05/28 [facility] HEMATOLOGY RDW 16.4 11.5 - 05/28 [place] 14.5 [place] HEMATOLOGY MCH 27.8 27.0 - 05/28 [place] 31.0 [place] HEMATOLOGY MCHC 32.2 32.0 - 05/28 [place] 36.0 [facility] HEMATOLOGY MCV 86.2 80.0 - 05/28 [place] 94.0 [place] HEMATOLOGY Hct 35.5 42.0 - 05/28 [place] 54.0 [facility] HEMATOLOGY MPV 8.2 7.4 - 10.4 05/28 Sugar [facility] HEMATOLOGY Hgb 11.4 14.0 - 05/28 [place] 18.0 [place] HEMATOLOGY RBC 4.13 4.70 - 05/28 [place] 6.10 [place] HEMATOLOGY WBC 51.0 3.7 - 10.4 05/28 Result Comment: [facility] Critical Result(s) called to HANDY Garcia at 05/28/2017 05:59 by GUARD SUPERVISOR. Read back OK. CHEM PANEL eGFR 68 05/27 Result Comment: The [facility] eGFR is calculated using the CKD-EPI formula. [...] 0.0 - 0.2 05/27 [place] /2017 [facility] HEMATOLOGY Anisocyte 1+ None Seen 05/27 [place] *ABN* /2017 [place] (05/27/17 8:34 AM) HEMATOLOGY Eosinophils 0.2 0.0 - 0.5 05/27 [place] # /2017 [facility] HEMATOLOGY Segs 19.3 45.0 - 05/27 [place] 75.0 /2017 [facility] HEMATOLOGY Plt Morph Normal 05/27 [place] (05/27/17 8:34 AM) /2017 [facility] HEMATOLOGY Lymphocytes 78.6 20.0 - 05/27 [place] 40.0 /2017 [facility] HEMATOLOGY Platelet 213 133 - 450 05/27 [place] /2017 [facility] HEMATOLOGY MPV 8.5 7.4 - 10.4 05/27 [place] /2017 [facility] HEMATOLOGY MCHC 33.0 32.0 - 05/27 [place] 36.0 [facility] HEMATOLOGY RDW 16.4 11.5 - 05/27 [place] 14.5 [facility] HEMATOLOGY Hgb 12.4 14.0 - 05/27 [place] 18.0 [facility] HEMATOLOGY MCV 86.8 80.0 - 05/27 [place] 94.0 [facility] HEMATOLOGY Hct 37.4 42.0 - 05/27 [place] 54.0 [facility] HEMATOLOGY MCH 28.7 27.0 - 05/27 [place] 31.0 /2017 [facility] HEMATOLOGY WBC 56.8 3.7 - 10.4 05/27 Result /2017 Comment: [facility] Critical Result(s) called to Nadeem Ayala Rn at 05/27/2017 08:53 by Bry. Read back OK. HEMATOLOGY RBC 4.31 4.70 - 05/27 [place] 6.10 [facility] BLOOD BANK ABO/Rh A POS 05/27 [place] RESULTS /2017 [facility] BLOOD BANK Antibody Negative 05/27 [place] RESULTS Scrn (05/27/17 1:34 AM) [facility] BLOOD BANK Platelet Product available 05/27 [place] RESULTS product (05/27/17 1:25 AM) /2017 [facility] CHEM PANEL eGFR 49 05/27 Result [place] /2017 Comment: The [facility] eGFR is calculated using the CKD-EPI formula. [...] 35.8 [place] CHEM PANEL eGFR 54 09/19 [facility] Comment: The Medical eGFR is Center calculated [...] PANEL AGAP 15.8 10.0 - 09/19 Result [facility] 20. Comment: Medical Collection Center date/time [...] BUN 18 7 - 22 09/19 Result [facility] Comment: Medical Collection Center date/time has been modified to: 15:35:00. Previous collection date/time: 16:41:00. CHEM PANEL Sodium Lvl 144 135 - 145 09/19 Result [facility] Comment: Medical Collection Center date/time has been modified to: 15:35:00. Previous collection date/time: 16:41:00. CHEM PANEL Creatinine 1.31 0.50 - 09/19 Result [facility] 1.40 Comment: Medical Collection Center date/time has been modified to: 15:35:00. Previous collection date/time: 16:41:00. CHEM PANEL Potassium 3.8 3.5 - 5.1 09/19 Result [facility] Comment: Medical Collection Center date/time has been modified to: 15:35:00. Previous collection date/time: 16:41:00. Pathology Reports No Data Provided for This Section Diagnostic Reports Report Value Date Source Bladder US Bladder Ultrasound 05/27/2017 [facility] History: Hematuria - looking for blood clots [...] to earlier study. Bladder US EXAM: 05/27/2017 [facility] Urinary bladder ultrasound. CLINICAL HX: Hematuria. Saba [...] -- Two subcentimeter ovo id foci of [id number] restricted diffusion, consistent with acute lacunar infarcts, [...] n outpatient basis. On 12/28/2016 4:30 PM SERVICE ASSOCIATE, a call was placed to to notify the referring clinician's office that this exam has important findings p otentially requiring urgent follow-up and to direct their attention to the report for details. There was no response after several attempts, and no voicemail option was available. Several unsuccessful attempts were subsequently m pierce to reach the patient at the provided number of [phone]. A generic message was left on the [...] edema, compression or myelomal acia. 4. Bilateral anterior/stone unloader ior triangle and supraclavicular adenopathy, reactive or neoplastic. Correlate with history. 5. 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 SL: [id number] Spine Thoracic wo Patient Name: IDANIA TERRY 08/11/2016 PRECIOUS [place] contrast MRI : 1945; Age: 71 years y/o Male MR: [id number] Study: Spine Thoracic wo contrast MRI 08/11/2016 [...] canal stenosis or neural foraminal narrowing. SL: [id number] Spine cervical wo Study: Spine cervical wo contrast MRI 08/12/19 17 [facility] contrast MRI Clinical Indication: G95.9 Disease [...] of the cervical s keith cord. SL: [id number] Spine lumbar flex/ext EXAM: XR LUMBAR SPINE [...] Date Comments Source Heart Rate 63 05/29/2017 [place] Temperature Oral (F) 97.8 F 05/29/2017 [facility] [place] Respitory Rate 18 05/29/2017 [facility] [place] Systolic (mm Hg) 145 05/29/2017 [facility] [place] Diastolic (mm Hg) 83 05/29/2017 MH [place] and Respitory Rate 18 05/29/2017 [facility] [place] Heart Rate 64 05/29/2017 [place] Temperature Oral (F) 97.4 F 05/29/2017 [place] Systolic (mm Hg) 156 05/29/2017 [place] Diastolic (mm Hg) 86 05/29/2017 MH [place] L and Respitory Rate 18 05/29/2017 [facility] [place] Temperature Oral (F) 98 F 05/29/2017 [place] Heart Rate 59 05/29/2017 [facility] [place] Systolic (mm Hg) 158 05/29/2017 [place] Diastolic (mm Hg) 69 05/29/2017 MH [place] L and BMI Calculated 27.32 05/27/2017 [place] Height 177.8 cm 05/27/2017 [place] Weight 86.364 05/27/2017 [facility] [place] Weight 89.545 05/27/2017 [facility] [place] Weight 90.909 12/28/[facility] BMI Calculated 28.76 12/28/2016 [facility] Height 177.8 cm 12/28/2016 [facility] Heart Rate 74 12/28/2016 [facility] Neuro Systolic (mm Hg) 163 12/28/2016 [facility] Julio ro Diastolic (mm Hg) 82 12/28/2016 [facility] uro Temperature Oral (F) 97.8 F 12/28/2016 [facility] Heart Rate 89 09/24/2016 [facility] Temperature Oral (F) 97.5 F 09/24/2016 [facility] Respitory Rate 18 09/24/2016 [facility] juju Center Systolic (mm Hg) 176 09/24/2016 [facility] dical Center Diastolic (mm Hg) 83 09/24/2016 [facility] Heart Rate 84 09/24/2016 [facility] Systolic (mm Hg) 143 09/24/2016 [facility] dical Center Diastolic (mm Hg) 73 09/24/2016 [facility] [place] [facility] Respitory Rate 17 09/24/2016 [facility] [place] Temperature Oral (F) 98.5 F 09/24/2016 [facility] Temperature Oral (F) 98.1 F 09/24/2016 [facility] Systolic (mm Hg) 146 09/24/2016 [facility] Diastolic (mm Hg) 79 09/24/2016 [facility] Respitory Rate 18 09/24/2016 [facility] [place] Heart Rate 70 09/24/2016 [facility] [place] BMI Calculated 29.48 09/22/2016 [facility] [place] Weight 93.182 09/22/2016 [facility] Height 177.8 cm 09/22/2016 [facility] [place] Weight 90.455 09/19/2016 [facility] [place] BMI Calculated 28.61 09/19/2016 [facility] [place] Height 177.8 cm 09/19/2016 [facility] Encounters Location Location Encounter Encounter Reason Attending ADM [place] Stat us Source Details Type Number For Provider Date Date Visit Outpatient [id number] TJ ALICIA 07/20 [facility] Outpt Diag [id number] Tj Alicia 07/20 07/21 [facility] Herm torin [facility] Outpt Diag [id number] Tj Alicia 08/11 08/12 [facility] [place] Outpatient [id number] TJ ALICIA 08/17 [facility] [id number] TJ ALICIA 09/19 [facility] [id number] TJ ALICIA 09/19 [facility] [id number] TJ ALICIA 09/22 [facility] ve [facility] Observation [id number] Tj Alicia 09/22 09/24 [facility] Outpatient [id number] IS[place] 10/07 Active [facility] [place] Outpatient [id number] TJ ALICIA 11/14 [facility] Phone [id number] 12/23 12/25 [facility] Message Neuro MNA Spine Phone [id number] 12/26 12/28 [facility] Message Neuro Outpatient [id number] TJ MICHEL 12/[address] [facility] [place] MNA Spine Outpatient [id number] Javi 12/28 12/29 [facility] 8 Aayush Neuro [facility] Outpt Diag [id number] Rufina 12/28 12/29 [facility] 0 [facility] MNA Spine Phone [id number] 01/02 01/04 [facility] Message Neuro [facility]NA Spine Phone [id number] 01/03 01/05 [facility] Message Neuro MNA Spine Phone [phone] 01/16 01/18 De cathleen [facility] Message Neuro Outpatient [id number] TJ MICHEL 02/[address] [facility] [place] MNA Spine Ambulatory [id number] Javi 02/13 02/13 [facility] Pre-Reg 7 Aayush Neur o MNA Spine Phone [id number] 03/15 03/17 De cathleen [facility] Message Neuro [facility] [id number] Chata 05/27 05/29 Christel Clements [address] [place] MNA Spine Phone [id number] 09/06 09/08 [facility] Message Neuro Procedures Procedure Code Date Perfomer Comments Source Bladder irrigation, [id number] 05/28/2017 [place] gar [place] simple, lavage and/or instillation Bladder operation [id number] [facility] Neuro,[facility], PRECIOUS Clements, OPID Scott, OPID [facility] [place] Drainage [id number] [facility] Neuro,[facility], PRECIOUS Clements, OPID [place], OPID [facility] [place] Lymph node [id number] [facility] operation Neuro,[facility], PRECIOUS Clements, OPID [place], OPID [facility] [place] Assessment and Plan Assessment and Plan Date Source Extracted from:Title: Progress Note * 05/29/2017 DARREN Billy Author: Colton Angel MD Date: 05/29/17 Impression and Plan Gross hematuria with clot retention afte r urodynamics at [facility]. Patient has been on aspirin [...] and reassess. Extracted from:Title: Urology consult Author: Coltno Angel MD Date: 05/27/17 Impression and Plan Gross hematuria after urodynamics at [facility]. Patient was on aspirin and Plavix [...] Cessation Counseling No Social History TypeResponse 09/19/2016 [facility] Alcohol Current, Frequency: 1-2 times per year. [...]
--- OUTSIDE RECORDS SUMMARY | 2020-01-21 18:26 | XMS REPORT | Continuity of Care Document ---
:1945 Author Organization [facility] t Address [address] [place] [address] Care Team Providers Name Role Phone Ella SCHMIDT Primary Care Physician Riki Bolanos MD Attending Clinician RIKI BOLANOS Attending Clinician Unavailable Elyssa WHITE Attending Clinician Unavailable Riki Bolanos MD Attending Clinician Kenny Sierra MD Attending Clinician oYan SCHMIDT Attending Clinician Brian Herrera Attending Clinician [...] Admitting Clinician Unavailable Gisella Alicia Admitting Clinician Payers Payer Name Policy Type Policy Effective Date Expiration Date Sour ce Number MEDICAREMEDICARE A [id number] [facility] [id number] 2009- 00:00:00 - Medical PresentMedicare Center [facility] [id number] [address] [facility] SUPPLEMENT/INDIVIDUALA 00:00:00 - Medical [id number]02/2019-PresentMedigap Problems Condition Condition Condition Status [...] LUMBAR 00:00: Tyree STENOSIS 00 Active 08/19/2016 [facility] M54.16 - Diagnosis Active 2016-07-20 M emoria "RADICULOP 6-14 12:52:00 l ATHY, M54.16 - 00:01: Dieudonne n LUMBAR "RADICULOP 00 REGION" ATHY, LUMBAR REGION" Active 07/20/2016 PRECIOUS [place] Mitral Mitral Disease Active [place] valve valve 06-06 Methodi insufficie insufficie 00:00: st ncy ncy 00 Panlobular Panlobular Disease Active H jordan emphysema emphysema 06-06 Meth rosario 00:00: st 00 Peripheral Peripheral Disease Active H jordan vascular vascular 06-06 Method i disease disease 00:00: st 00 Pitting Pitting Disease Active [place] edema edema - Methodi 00:00: st 00 Myelopathy Myelopathy Disease Active H jordan of of 06-06 Methodi cervical cervical 00:00: st spinal spinal 00 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 radiculopa thy thy SVT SVT Disease Active [place] (supravent (supravent 06-06 Me thodi ricular ricular 00:00: st tachycardi tachycardi 00 a) a) 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 00:00: st 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) Hematoma Problem Resolve 2018-03-27 Me moria (disorder) d 14:50:09 l Hematoma Dieudonne n (disorder) Resolved Problem 03/27/2018 [facility] Neuro,[facility], PRECIOUS Clements, PRECIOUS Chavez,M [facility] [place] Hypertensi Problem Active 2018-03-27 M emoria ve 14:50:09 l disorder, [place] systemic Hypertensi arterial ve (disorder) disorder, systemic arterial (disorder) Active Problem 03/27/2018 [facility] Neuro,[facility], PRECIOUS Clements, PRECIOUS Chavez,M [facility]IM[facility] [place] Tobacco Tobacco Disease Active [facility] use use [facility] Obstructiv Problem 2017-2017-06-01 2017-06-01 Memoria e and 4-20 02:24:06 02:24:06 l reflux 05:00: Tyree uropathy, Obstructiv 00 unspecifie e and d reflux uropathy, unspecifie d 05/26/2017 06/01/2017 [place] Hematuria, Problem 2017-2017-06-01 2017-06-01 Memoria unspecifie 4-20 02:24:06 02:24:06 l d 05:00: Tyree Hematuria, 00 unspecifie d 05/26/2017 06/01/2017 [place] History of Past Illness Condition Condition Condition [...] Date Stop Date Source Natural father Cancer [place] [facility] Natural father Hypertension [place] [facility] Natural father Aneurysm [facility] [place] [facility] Natural mother Arthritis [place] [facility] Natural mother COPD [facility] [place] Social History Social Habit Start Date Stop Date Quantity Comments Source History of tobacco [facility] sm[facility] Sex Assigned At [facility] St Yaa kes - [facility] Exposure to Not sure [facility] - SARS-CoV-2 (event) [facility] Cigarettes smoked 2020-01-07 2020-01-[address] [facility] - current (pack per 00:00:00 00:00:00 [facility] day) - Reported Cigarette 2020-01-07 2020-01-[address] [facility] - pack-years 00:00:00 00:00:00 [facility] Tobacco use and 2020-01-07 2020-01-07 Never used [facility] St Yaa kes - exposure 00:00:00 00:00:00 [facility] Alcohol intake 2020-01-07 2020-01-07 Ex-drinker [facility] - 00:00:00 00:00:00 (finding) [facility] Social History 2016-09-19 2016-09-19 [facility] Jaquelin isaac 20:24:11 20:24:11 Alcohol Comment 2016-05-25 2016-05-25 willis Ortiz ethodist 00:00:00 00:00:00 Smoking Status Start Date Stop Date Source Former smoker 2020-01-07 00:00:00 2020-01-07 00:00:[address] [facility] Social History 2016-07-21 10:16:13 [facility] Medications Ordered Filled Start Stop Current Ordering [...] Medic al 24 hr 51 :00 daily. Plain capsule clopidogrel 2019-02- No 75mg QD Take [address] (PLAVIX) 75 02-17 by mouth Sonia es - mg tablet 08:27: 00:00 daily. Medic al 51 :00 Plain aspirin 81 2019-02- No 81mg QD Take [address] MG EC 02-17 by mouth Lukes - tablet 08:27: 00:00 daily. Medical 51 :00 Plain VALSARTAN 2019-02- No 160mg QD Take [address] ORAL 02-17 mg by Lukes - 08:27: 00:00 mouth Medical 51 :00 daily . Plain nebivolol 2019-02- No 5mg QD Take [address] (BYSTOLIC) 02-17 by mouth Luke s - 5 MG tablet 08:27: 00:00 nightly. M edical 51 :00 Plain clopidogreL 2019-02- Yes 75mg QD Take 1 [...] 00:00 mouth Medical (DIOVAN-HCT 00 :00 daily. Plain ) 160-12.5 mg per tablet Docusate No Notes: Memoria Sodium 50 4-23 (Same as l MG / 22:00: Senokot-S) Tyree sennosides, 00 Equiv. to FCI 8.6 MG Rachelle-Colac Oral Tablet e. Docusate Yes 1 tab, PO, Mem oria Sodium 50 4-23 BID, X 14 l MG / 17:38: day, # 28 Tyree sennosides, 00 tab, 0 FCI 8.6 MG Refill(s), Oral Tablet Pharmacy: [facility] ciprofloxac Yes 500 mg = 1 Memoria in 500 mg 4-23 tab, PO, l oral tablet 17:38: Q12H, X 7 H ermann 00 day, # 14 tab, 0 Refill(s), Pharmacy: [facility] Cipro No Notes: May Memori a 4-23 [...] 0 Memori a 4-22 Refill(s) l 15:24: [place] nebivolol Yes 10 mg = 1 Mem oria 10 MG Oral 4-22 tab, PO, l Tablet 15:24: Daily, 0 [place] [Bystolic] 00 Refill(s) Bystolic No Notes: Memoria 4-22 (same as: l 14:00: Bystolic) Tyree 00 Crestor No Notes: Memoria 4-22 (Same As: l 02:00: Crestor) [place] 00 Docusate No Notes: Memoria 4-21 (Same as: l 14:00: Colace) [place] 00 (Do Not Crush) Lisinopril No Notes: [...] 4-21 not exceed l 07:05: 4 gm/day. [place] 00 (Same as: Tylenol) Acetaminoph No Notes: Juan Alberto verónica en 325 MG / 05-27 (Same as: l Hydrocodone 07:05: [place] Bitartrate 00 325/5) Do 5 MG Oral not exceed Tablet 4gm/day of acetaminop hen. Morphine No Notes: Memoria 4-21 (Same l 07:05: as:MORPhin [place] e Sulfate) Ondansetron No Notes: Juan Alberto verónica - (Same as: l 07:05: Zofran) Tyree 00 MEDICATION WASTE Product Size: 4 mg Product Wasted: ___ mg Irrigation No Notes: For M emoria w/ Normal 4-21 irrigation l Saline 07:00: only. Tyree 00 Sodium No Notes: For Memor ia Chloride -21 irrigation l 0.0769 07:00: only. [place] MEQ/ML 00 Irrigation Solution Sodium No 250 mL, Memoria Chloride 05-27 Rate: To l 0.9% 06:25: prime line Bethany (titrate) 00 and flush 250 mL remaining blood products., Dosing Weight 89.545, kg, Route: IV, Total Volume: 250, Start Date: 05/27/17 1:25:00 CDT, Duration: 30 day, Stop date: 06/26/17 1:24:00 CDT, Replace Every: 24 hr Irrigation No Notes: For M emoria w/ Normal 4-21 irrigation l Saline 05:58: only. [place] Irrigation No Notes: For M emoria w/ Normal 4-21 irrigation l Saline 04:45: only. Tyree Saline No Notes: Memoria Flush 0.9% 05-27 (Same as: l 04:12: BD [place] Posiflush) Phenazopyri No 100 mg = 1 [...] TAB, 5 MG Oral Dosing Tablet Weight [[place] 89.545, 5/325] kg, ONCE, STAT, Start date: [...] MG Oral # 90 tab, Tablet 0 [[place] Refill(s) 10/325] Methocarbam Yes 500 mg = [...] l de 0.1 MG 22:00: Catapres) Her garica Oral Tablet 00 Ondansetron No Notes: Juan [...] 10 MG Oral hen. Tablet (Same as: [[place] 10/325] 325/10) Dilaudid No Notes: Memoria 09-22 Same as: l 21:11: Dilaudid Tyree Bisacodyl No Notes: Memori a 09-22 (Same As: l 21:11: Dulcolax, [place] Bisco-Lax) phenol No Notes: Memoria 09-22 Chlorasept l 21:11: ic [place] Tyree (Same as: Chlorasept ic, Sore Throat [place]) WASTE: F/P - Black; E - Municipal Trash [employer] Melatonin 3 No Notes: Juan Alberto verónica MG Extended 09-22 (Same as: l Release 21:11: Melatonin) Herm torin Tablet 00 Benadryl No Notes: Memoria 09-22 (Same as: l 21:11: Benadryl) [place] ceFAZolin No Notes: Memori a 09-22 Same as: l 08:00: Ancef [place] rosuvastati Yes TK 1 T PO [place] n (CRESTOR) 3-22 QD Methodi 10 MG 00:00: st tablet 00 Vital Signs Vital Name Observation Time Observation Value Comments Source Systolic blood 2020 14:00:00 140 mm[Hg] [facility] Diastolic blood 2020 14:00:00 66 mm[Hg] [facility] Heart rate 2020 14:00:00 58 /min [facility] Respiratory rate 2020 14:00:00 18 /min [facility] Oxygen saturation in 2020 13:00:00 98 /min [facility] Arterial blood by Medical Ce nter Pulse oximetry Body temperature 2020 11:52:00 48 Alexia [facility] Body height 2020 08:39:00 180.3 cm [facility] Body weight 2020 08:39:00 85.276 kg [facility] BMI 2020 08:39:00 26.23 kg/m2 [facility] Heart Rate 2017-05-29 16:49:00 [facility] [place] Temperature Oral (F) 2017-05-29 16:49:00 97.8 F [facility] [place] Respitory Rate 2017-05-29 16:49:00 Memori al [place] Systolic (mm Hg) 2017-05-29 16:49:00 Juan Alberto rial [place] Diastolic (mm Hg) 2017-05-29 16:49:00 Mem orial [place] Respitory Rate 2017-05-29 13:20:00 Memori al [place] Heart Rate 2017-05-29 13:20:00 [facility] [place] Temperature Oral (F) 2017-05-29 13:20:00 97.4 F [facility] [place] Systolic (mm Hg) 2017-05-29 13:20:00 Juan Alberto rial [place] Diastolic (mm Hg) 2017-05-29 13:20:00 Mem orial [place] Respitory Rate 2017-05-29 08:34:00 Memori al [place] Temperature Oral (F) 2017-05-29 08:34:00 98 F [facility] [place] Heart Rate 2017-05-29 08:34:00 [facility] [place] Systolic (mm Hg) 2017-05-29 08:34:00 Juan Alberto rial [place] Diastolic (mm Hg) 2017-05-29 08:34:00 Mem orial [place] BMI Calculated 2017-05-27 08:46:00 Memori al [place] Height 2017-05-27 08:46:00 177.8 cm [facility] [place] Weight 2017-05-27 08:46:00 [facility] [place] Weight 2017-05-27 00:09:00 [facility] [place] Weight 2016-12-28 18:56:00 [facility] [place] BMI Calculated 2016-12-28 18:56:00 Memori al [place] Height 2016-12-28 18:56:00 177.8 cm [facility] [place] Heart Rate 2016-12-28 18:56:00 [facility] [place] Systolic (mm Hg) 2016-12-28 18:56:00 Juan Alberto rial [place] Diastolic (mm Hg) 2016-12-28 18:56:00 Mem orial [place] Temperature Oral (F) 2016-12-28 18:56:00 97.8 F [facility] [place] Heart Rate 2016-09-24 12:50:00 [facility] [place] Temperature Oral (F) 2016-09-24 12:50:00 97.5 F [facility] [place] Respitory Rate 2016-09-24 12:50:00 Memori al [place] Systolic (mm Hg) 2016-09-24 12:50:00 Juan Alberto rial [place] Diastolic (mm Hg) 2016-09-24 12:50:00 Mem orial [place] Heart Rate 2016-09-24 08:43:00 [facility] [place] Systolic (mm Hg) 2016-09-24 08:43:00 Juan Alberto rial [place] Diastolic (mm Hg) 2016-09-24 08:43:00 Mem orial [place] Respitory Rate 2016-09-24 08:43:00 Memori al [place] Temperature Oral (F) 2016-09-24 08:43:00 98.5 F [facility] [place] Temperature Oral (F) 2016-09-24 04:44:00 98.1 F [facility] [place] Systolic (mm Hg) 2016-09-24 04:44:00 Juan Alberto rial [place] Diastolic (mm Hg) 2016-09-24 04:44:00 Mem orial [place] Respitory Rate 2016-09-24 04:44:00 Memori al [place] Heart Rate 2016-09-24 04:44:00 [facility] [place] BMI Calculated 2016-09-22 15:39:00 Memori al [place] Weight 2016-09-22 15:39:00 [facility] [place] Height 2016-09-22 15:39:00 177.8 cm [facility] [place] Weight 2016-09-19 20:20:00 [facility] [place] BMI Calculated 2016-09-19 20:20:00 Memori al [place] Height 2016-09-19 20:20:00 177.8 cm [facility] [place] Procedures Procedure Date / Time Performing Clinician Source Performed POCT-ACT 2020 11:24:00 Colton Bolanos [facility] ECG 12-LEAD 2020 10:50:42 Vane Downs [facility] ANGIOGRAM,CORONARY 2020 10:04:00 Colton Bolanos [facility] CARDIAC CATH REPORT - 2020 00:00:00 Juan A Momin [facility] SARS-COV2/RT-PCR ([facility] & 2020-01-03 10:25:00 Colton Bolanos [facility] - REF LABS) [facility] POCT-GLUCOSE METER 2019-12-19 07:18:00 Oneli [facility] BASIC METABOLIC PANEL (7) 2019-12-19 04:49:00 Kalia Hagen [facility] MAGNESIUM 2019-12-19 04:49:00 Xiao [facility] PHOSPHORUS 2019-12-19 04:49:00 Xiao [facility] CBC (HEMOGRAM ONLY) 2019-12-19 04:49:[address] [facility] POCT-GLUCOSE METER 2019-12-18 21:00:00 Oneil [facility] POCT-GLUCOSE METER 2019-12-18 16:56:00 Oneil [facility] POCT-GLUCOSE METER 2019-12-18 11:16:00 Oneil [facility] ECG 12-LEAD 2019-12-18 08:29:14 Unknown, Hl7 Doctor [facility] POCT-GLUCOSE METER 2019-12-18 07:37:00 Oneil [facility] SARS-COV2/RT-PCR ([facility] & 2019-12-18 05:39:00 Oneil [facility] - REF LABS) [facility] BASIC METABOLIC PANEL (7) 2019-12-18 05:24:00 Kalia Hagen [facility] MAGNESIUM 2019-12-18 05:24:00 [facility] PHOS[facility]US 2019-12-18 05:24:00 Agekanikazeeshan [facility] CBC (HEMOGRAM ONLY) 2019-12-18 05:24:00 [facility]SE METER 2019-12-17 21:25:00 [facility]SE METER 2019-12-17 16:03:00 [facility] POCT-GLUCOSE METER 2019-12-17 11:59:00 [facility] POCT-GLUCOSE METER 2019-12-17 07:49:00 [facility] BASIC METABOLIC PANEL (7) 2019-12-17 05:11:00 Kalia Hagen [facility] MAGNESIUM 2019-12-17 05:11:00 Agejose a [facility] PHOSPHORUS 2019-12-17 05:11:00 [facility] (HEMOGRAM ONLY) 2019-12-17 05:11:00 [facility] POCT-[facility]UCOSE METER 2019-12-16 21:16:00 [facility] POCT-GLUCOSE METER 2019-12-16 16:18:00 Costre [facility] POCT-GLUCOSE METER 2019-12-16 12:02:00 [facility] POCT-GLUCOSE METER 2019-12-16 07:39:00 [facility] BASIC METABOLIC PANEL (7) 2019-12-16 05:13:00 Kalia Hagen [facility] MAGNESIUM 2019-12-16 05:13:00 Agejose a [facility] PHOSPHORUS 2019-12-16 05:13:00 Ageedi, [facility] APTT 2019-12-16 05:13:00 Oneil [facility] CBC (HEMOGRAM ONLY) 2019-12-16 05:13:00 [facility] POCT-GLUCOSE METER 2019-12-15 21:20:00 Oneil [facility] APTT 2019-12-15 04:14:00 [facility] BASIC METABOLIC PANEL (7) 2019-12-15 04:10:00 Juan Lawson [facility] MAGNESIUM 2019-12-15 04:10:00 [facility] PHOS[facility]US 2019-12-15 04:10:00 Renny [facility] CBC (HEMOGRAM ONLY) 2019-12-15 04:09:00 Juan Lawson [facility] PREPARE RBC 2019-12-14 23:54:00 Oneil [facility] POCT-GLUCOSE METER 2019-12-14 22:34:00 Oneil [facility] APTT 2019-12-14 21:01:00 Efrain Barajas [facility] POCT-GLUCOSE METER 2019-12-14 18:05:00 [facility] AP[facility] 2019-12-14 14:42:00 [facility] BASIC METABOLIC PANEL (7) 2019-12-14 13:58:00 Irvin Mills [facility] MAGNESIUM 2019-12-14 13:58:00 Irvin Mills [facility] POCT-GLUCOSE METER 2019-12-14 13:47:00 [facility] POCT-GLUCOSE METER 2019-12-14 09:00:00 [facility] APTT 2019-12-14 07:52:00 Juan Lawson [facility] XR CHEST 1 VIEW 2019-12-14 07:50:[address] [facility] PORTABLE/BEDSIDE [facility] BLOOD GAS, ARTERIAL 2019-12-14 05:07:00 Xiao [facility] APTT 2019-12-14 05:07:00 R[facility] CBC (HEMOGRAM ONLY) 2019-12-14 03:28:00 Juan Lawson [facility] BASIC METABOLIC PANEL (7) 2019-12-14 03:28:00 Juan Lawson [facility] MAGNESIUM 2019-12-14 03:28:00 [facility] PHOSPHORUS 2019-12-14 03:28:00 Renny [facility] POCT-GLUCOSE METER 2019-12-13 23:24:00 [facility] XR CHEST 1 VIEW 2019-12-13 23:20:00 [facility] - PORTABLE/BEDSIDE [facility] BLOOD GAS, ARTERIAL 2019-12-13 23:12:00 [facility] CALCIUM, IONIZED 2019-12-13 23:12:00 [facility] CBC (HEMOGRAM ONLY) 2019-12-13 23:10:00 [facility] BASIC [facility]OLIC PANEL (7) 2019-12-13 23:10:00 Sanjana [facility] APTT 2019-12-13 23:10:00 [facility] PROTHROMBIN TIME/INR 2019-12-13 23:10:00 Sanjana [facility] PHOSPHORUS 2019-12-13 23:10:00 [facility] 2019-12-13 23:10:00 Kalia [facility] POCT-ACT 2019-12-13 21:38:00 [facility] PO[facility]-ACT 2019-12-13 20:51:00 [facility] CALCIUM, IONIZED 2019-12-13 20:48:[address] [facility] BLOOD GAS, ARTERIAL 2019-12-13 20:48:35 Javier [facility] SODIUM NA-STAT LAB 2019-12-13 20:48:[address] [facility] POTASSIUM-STAT LAB 2019-12-13 20:48:[address] [facility] GLUCOSE-STAT LAB 2019-12-13 20:48:[address] [facility] HGB/HCT (H&H) - STAT LAB 2019-12-13 20:48:35 Javier [facility] POCT-ACT 2019-12-13 20:17:00 [facility] TRANSFUSE LEUKO-REDUCED 2019-12-13 19:48:17 Javier [facility] - RED BLOOD CELLS [facility] TRANSFUSE LEUKO-REDUCED 2019-12-13 19:46:32 Javier [facility] - RED BLOOD CELLS [facility] POCT-ACT 2019-12-13 19:37:00 [facility] CALCIUM, IONIZED 2019-12-13 19:31:[address] [facility] BLOOD GAS, ARTERIAL 2019-12-13 19:31:54 Javier [facility] SODIUM NA-STAT LAB 2019-12-13 19:31:[address] [facility] POTASSIUM-STAT LAB 2019-12-13 19:31:[address] [facility] GLUCOSE-STAT LAB 2019-12-13 19:31:54 [facility]/HCT (H&H) - STAT LAB 2019-12-13 19:31:[address] [facility] POCT-ACT 2019-12-13 18:54:00 Delano [facility] CALCIUM, IONIZED 2019-12-13 18:18:55 [facility] LACTIC ACID, ARTERIAL 2019-12-13 18:18:55 [facility] BLOOD GAS, ARTERIAL 2019-12-13 18:18:55 [facility] SODIUM NA-STAT LAB 2019-12-13 18:18:55 [facility] POT[facility]SIUM-STAT LAB 2019-12-13 18:18:55 [facility] GLUCOSE-STAT LAB 2019-12-13 18:18:55 [facility] HGB/HCT (H&H) - STAT LAB 2019-12-13 18:18:55 [facility] ANGIO[facility]-LOWER EXTREMITY 2019-12-13 17:10:00 [facility] THROMBECTOMY-LOWER 2019-12-13 17:10:00 [facility] HC ARTERIAL DOPPLER LEGS 2019-12-13 12:51:00 Irvin Mills [facility] I [facility] WINTER [facility] HC ARTERIAL(RAFIQ W 2019-12-13 12:51:00 Delano [facility] es - DOPPLER)ONLY [facility] URINE CULTURE 2019-12-13 11:33:00 Irvin Mills [facility] URINALYSIS W/ REFLEX 2019-12-13 11:33:00 Irvin Mills [facility] - URINE CULTURE [facility] BASIC METABOLIC PANEL (7) 2019-12-13 11:31:00 Irvin Mills [facility] MAGNESIUM 2019-12-13 11:31:00 [facility] PHOSPHORUS 2019-12-13 11:31:00 [facility] PROTHROMBIN TIME/INR 2019-12-13 11:31:00 [facility] APTT 2019-12-13 11:31:00 [facility] CBC W/PLT COUNT & AUTO 2019-12-13 11:31:00 [facility] DIFFERENTIAL [facility] XR CHEST 1 VIEW 2019-12-13 11:20:00 [facility] PORTABLE/BEDSIDE [facility] POCT-ACT 2019-12-13 10:38:00 [facility] POCT-ACT 2019-12-13 09:24:00 [facility] 2019-12-13 09:10:00 [facility] CALCIUM, IONIZED 2019-12-13 08:13:27 Isidoro Pierce [facility] BLOOD GAS, ARTERIAL 2019-12-13 08:13:27 Isidoro Pierce I [facility] SODIUM NA-STAT LAB 2019-12-13 08:13:27 Isidoro Pierce [facility] POTASSIUM-STAT LAB 2019-12-13 08:13:27 Isidoro Pierce [facility] GLUCOSE-STAT LAB 2019-12-13 08:13:27 Isidoro Pierce [facility] HGB/HCT (H&H) - STAT LAB 2019-12-13 08:13:27 Isidoro Pierce [facility] REPAIR,EVAR-ENDOVASCULAR 2019-12-13 07:03:00 Oneil [facility] AORTIC ANEURYSM [facility] BASIC METABOLIC PANEL (7) 2019-12-13 04:22:00 Kvng[employer]Smart, Simah [facility] HEMOGLOBIN A1C 2019-12-13 04:22:00 Lo, Casey [facility] CBC W/PLT+MANUAL DIFF 2019-12-13 04:22:00 Kalia [facility]agen [facility] MAGNESIUM 2019-12-13 04:22:00 [facility]US 2019-12-13 04:22:00 Renny [facility] CBC WITH PLATELET COUNT + 2019-12-13 04:22:00 Kalia Hagen [facility] - MANUAL DIFF [facility] (CELLAVISION MANUAL DIFF) 2019-12-13 04:22:00 Kalia Hagen [facility] PREPARE RBC 2019-12-12 22:21:00 Oneil [facility] POCT-GLUCOSE METER 2019-12-12 21:26:00 Oneil [facility] PROTHROMBIN TIME/INR 2019-12-12 18:32:00 Kvng-Smart [facility] POCT-GLUCOSE METER 2019-12-12 16:40:00 Oneil [facility] BASIC METABOLIC PANEL (7) 2019-12-12 16:27:[address] [facility] VASCULAR DIAGRAM -SCAN 2019-12-12 00:00:00 ProviderJuan A [facility] ANTIBODY IDENTIFICATION 2019-12-11 16:23:00 Kerry Casey [facility] HC CAROTID DOPPLER WINTER 2019-12-11 13:52:[address] [facility] XR CHEST 2 VIEWS 2019-12-11 12:33:00 Kerry [facility] ECG 12-LEAD 2019-12-11 12:01:53 Unknown, Hl7 Doctor [facility] SARS-COV2/RT-PCR ([facility] & 2019-12-11 11:49:00 Oneil [facility] - REF LABS) [facility] BASIC METABOLIC PANEL (7) 2019-12-11 10:38:00 Lo, [facility] HC LAB HIV-1 AG W/HIV-1&2 2019-12-11 10:38:00 Lo, [facility] ALBUMIN 2019-12-11 10:38:00 Lo, [facility] ALKALINE PHOSPHATASE 2019-12-11 10:38:00 Lo, [facility] BILIRUBIN, ADULT TOTAL 2019-12-11 10:38:00 Lo, [facility] BILIRUBIN, DIRECT 2019-12-11 10:38:00 Lo, [facility] AST (SGOT) 2019-12-11 10:38:00 Lo, [facility] ALT (SGPT) 2019-12-11 10:38:00 Lo, [facility] [facility] PROTEIN, TOTAL 2019-12-11 10:38:00 Lo, [facility] PROTHROMBIN TIME/INR 2019-12-11 10:38:00 Lo, [facility] APTT 2019-12-11 10:38:00 Lo, [facility] RETICULOCYTE COUNT 2019-12-11 10:38:00 Lo, [facility] HEPATITIS B PANEL 2019-12-11 10:38:00 Lo, [facility] AMYLASE 2019-12-11 10:38:00 Lo, [facility] LIPASE 2019-12-11 10:38:00 Lo, [facility] HEPATITIS C ANTIBODY 2019-12-11 10:38:00 Lo, [facility] URINALYSIS W/ MICROSCOPIC 2019-12-11 10:38:00 Lo, [facility] LACTATE DEHYDROGENASE 2019-12-11 10:38:00 Lo, [facility] ([facility]H) [facility] HEMOGLOBIN A1C 2019-12-11 10:38:00 David Osoriochazeeshan [facility] TYPE AND SCREEN, 2019-12-11 10:38:00 Lo, [facility] AUTOMATED [facility] DIRECT AHG (GARTH)/DIRECT 2019-12-11 10:38:00 Lo, [facility]oudFormerly [facility] I [facility] CBC W/PLT COUNT & AUTO 2019-12-11 10:38:00 Lo, [facility] (CELLAVISION MANUAL DIFF) 2019-12-11 10:38:00 Lo, [facility] SPIROMETRY 2019-11-21 10:30:00 Lo, [facility] CTA ABDOMEN & PELVIS 2019-11-05 08:01:00 Lo, [facility] CTA CHEST 2019-11-05 08:01:00 Lo, [facility] POCT-CREATININE 2019-11-05 07:25:00 Lo, [facility] Bladder irrigation, 2017-05-28 16:15:00 [facility] simple, lavage and/or instillation Bladder operation [facility] nn Drainage [facility] Lymph node operation [facility] Plan of Care Planned Activity Planned Date Details Comments Source Future Scheduled 2019-10-08 INFLUENZA VACCINE (#1) [facility] Test 00:00:00 [code = INFLUENZA Medical Ce nter VACCINE (#1)] Future Scheduled 2019-09-07 [facility] VACCINE [place] Test 00:00:00 [code = INFLUENZA VACCINE] Future Scheduled 2019-02-[address] [facility] Test 00:00:00 (12+) [code = Medical Center DEPRESSION SCREENING (12+)] Future Scheduled 2010-12-[address] [facility] Test 00:00:00 WELLNESS (YEAR 2 or Medical Center FIRST YEAR if no IPPE) [code = MEDICARE ANNUAL WELLNESS (YEAR 2 or FIRST YEAR if no IPPE)] Future Scheduled 2010 65+ PNEUMOCOCCAL [facility] Test 00:00:00 VACCINE (1 of 1 - PPSV23) [code = 65+ PNEUMOCOCCAL VACCINE (1 of 1 - PPSV23)] Future Scheduled 2010 PNEUMOCOCCAL 65+ YRS [facility] - Test 00:00:00 (1 of 1 - Medical Center HGGW56_Rrazntb PCV13) [code = PNEUMOCOCCAL 65+ YRS (1 of 1 - WFMI20_Yxsdquh PCV13)] Future Scheduled 1995 COLONOSCOPY SCREENING [facility] Test 00:00:00 [code = COLONOSCOPY SCREENING] Future Scheduled 1995 SHINGLES VACCINES (#1) [place] [facility] Test 00:00:00 [code = SHINGLES VACCINES (#1)] Future Scheduled [address] [facility] - Test 00:00:00 malignant neoplasm of Medica l Center colon (procedure) [code = 248140583] Encounters Start End Encounter Admission Attending Care Care Encounter Source Date/Time Date/Time Type Type Clinicians Facility Department ID 2019-12-26 2019-12-26 Office [place] Bolanos [id number] 11:13:47 11:28:47 Visit [place] AMBULATOR 350.1.13.21 Riki Penn [id number] 2018-10-16 2018-10-16 Orders Doctor IRVIN [id number] 00:00:00 00:00:00 Only UnassignedAMADOR 350.1.13.10 [place] [facility] 4.2.7.2.686 [id number] 2018-09-10 2018-09-10 Orders Doctor BRYAN [id number] 00:00:00 00:00:00 Only UnassignedAMADOR 350.1.13.10 [place] [facility] 4.2.7.2.686 [id number] 2017-09-06 2017-09-07 Outpatient MHMISCHER MHMISCHER [id number] 13:27:00 23:59:59 13 2017-05-26 2017-05-29 Outpatient ANNALISA Carlson MHSL [id number] 19:05:00 16:01:00 Chata Ting Luciana 2017-03-15 2017-03-16 Outpatient MHMISCHER MHMISCHER [id number] 16:21:00 23:59:59 12 2017-02-13 2017-02-13 Outpatient Tj Alicia MHMISCHER MHMISCHER [id number] 08:45:00 08:45:00 Hwan 2017-02-13 2017-02-13 Outpatient Tj Alicia MHMISCHER MHMISCHER [id number] 08:45:00 08:45:00 Hwan 2017-02-13 2017-02-13 Outpatient Tj Alicia MHMISCHER MHMISCHER [id number] 08:45:00 08:45:00 Hwan 2017-01-16 2017-01-17 Outpatient MHMISCHER MHMISCHER [id number] 11:51:00 23:59:59 11 2017-01-03 2017-01-04 Outpatient MHMISCHER MHMISCHER [id number] 11:44:00 23:59:59 10 2017-01-02 2017-01-03 Outpatient MHMISCHER MHMISCHER [id number] 15:19:00 23:59:59 09 2016-12-28 2016-12-28 Outpatient Tj Alicia MHMISCHER MHMISCHER [id number] 08:00:00 23:59:59 Hwan 2016-12-28 2016-12-28 Outpatient Azar 2.16.840. [id number] 14:30:00 23:59:00 Rufina [id number] Ingrid 3.615.64 [id number] 2016-12-26 2016-12-27 Outpatient MHMISCHER MHMISCHER [id number] 09:23:00 23:59:59 08 2016-12-23 2016-12-24 Outpatient MHMISCHER MHMISCHER [id number] 09:42:00 23:59:59 07 2016-09-22 2016-09-24 Outpatient [facility] [id number] 16:11:00 11:45:00 Hwan 2016-08-11 2016-08-11 Outpatient Tj Alicia MHOIP MHOIP [id number] 16:55:00 23:59:00 Hwan 2016-07-20 2016-07-20 Outpatient Tj Alicia [facility] [id number] 10:41:00 23:59:00 Hwan 00 Results Test Description Test Time Test Results Result Source Comments Comments CARDIAC CATH Ordered by an unspecified [facility] RE[facility] - SCAN 3 provider. [facility] - 12:09:17 Medical Center ECG 12 lead 2019-12-10 Interface, External Ris [facility] 0 In - 2020 1:29 PM [facility] - 13:28:55 CSTVentricular Rate 51 Me dical BPMAtrial Rate 166 BPMQRS Center Duration 92 msQ-T Interval 524 msQTC Calculation(Bazett) 482 msP Fidelity 41 degreesR Fidelity -6 degreesT Fidelity 56 degreesSinus bradycardiaCannot rule out Anterior infarct , age undeterminedProlonged QTAbnormal ECG18 DEC 2019Sinus bradycardia replaced AVNRTST no longer depressed precordial leadsQT has shortenedConfirmed by MD MUSHTAQ, RADHA ([id number]) on 2020 1:28:53 PM POC ACTIVATED CLOTTING TIME 2020 11:45:00 Test Item Value Reference Range Interpretation Comme nts Activated Clotting Time (test 252 sec : 74-137 seconds, Baseline: TESTED AT code = 441) [address], [address]: Reversing Mill Roller/Techni rigoberto ID = [id number] for GREGG, CLAU [facility]PO[facility]-[id number] 11:45:00 Test Item Value Reference Range Interpretation Comments ACTIVATED CLOTTING TIME 252 sec : 74 -137 seconds, (BEAKER) (test code = Baseli ne: TESTED AT 441) [address], [address]: Reversing Mill Roller/Techni rigoberto ID = [id number] for CO NDE, CLAU SARS-CoV2/RT-PCR ([facility])2020-01-03 17:54:00 Test Item Value Reference Range Interpretation Comments SARS-COV2/RT-PCR Negative Not Detected, (test code = Negative, See 227[address]-9) external report for linked test SARS-COV-2 [facility] GENEVI[facility]E PERFORMING LAB (test code = 53560-2) AMRITA (test code = Negative result for [...] of the Act. Fact Sheet for Healthcare Providers:https://www.Evolv/sites/default/f odalys/product/documents/F act_Sheet_HC_Providers_L shm_ODDB-WvZ-5.pdf Fact Sheet for Healthcare Patients:https://www.ParaShoot.[employer]/sites/default/fi les/product/documents/Fa ct_Sheet_Patients_Lyra_S ARS-CoV-2.pdf Performing Laboratory:[facility] [place] [address] [facility]OV2/RT-PCR ([facility])2020-01-03 17:54:00 Test Item Value Reference Range Interpretation Comments SARS-COV2/RT-PCR (test Negative Not Detected, Negative, code = 5254344) See external report for linked test SARS-COV-2 PERFORMING LAB [facility] GENEVIEVE (test code = 4963501) Negative result for this test determines that [...] 564(g) of the Act.Fact Sheet for Healthcare Providers:https://www.South Beauty Groupidel.com/sites/default/files/product/documents/Fact_Shee l_XR_Xflicsjxe_Apqd_DNHP-QmQ-3.pdfFact Sheet for Healthcare Patients:https://www.South Beauty Groupidel.com/sites/default/files/product/ documents/Weea_Onbmm_Nmgtmgzo_Mfyr_IVAG-GuW-1.pdfPerforming Laboratory:[facility], [place] [address]HEPEFVUG DIAGRAM -[id number] 10:07:56Ordered by an unspecified provider.[facility]-COV2/RT-PCR ([facility])2019-12-19 10:14:00 Test Item Value Reference Range Interpretation Comments SARS-COV2/RT-PCR (test Negative Not Detected, Negative, code = 7548981) See external report for linked test SARS-COV-2 PERFORMING LAB [facility] GENEVI[facility]E (test code = 5037270) Negative result for this test determines that [...] 564(g) of the Act.Fact Sheet for Healthcare Providers:https://www.Econodata.[employer]/sites/default/files/product/documents/Fact_Shee z_YU_Rtmjjswcd_Etrj_ESPU-PxC-0.pdfFact Sheet for Healthcare Patients:https://www.Econodata.com/sites/default/files/product/ documents/Yjyj_Aoyux_Scwrufad_Idei_DWLR-AoW-1.pdfPerforming Laboratory:[facility], [place] [address]GDM-Lnywype meter 2019-12-19 07:30:00 Test Item Value Reference Range Interpretation Comments POC-Glucose Meter (test 121 mg/dL 70-110 H : TE STED AT [facility] code = 1538) [address] [place], [address]: Reversing Mill Roller/Techni rigoberto ID = [id number] for YESSI VERGARA Lab Interpretation (test Abnormal code = 36625-2) [facility] [id number] 07:30:00 Test Item Value Reference Range Interpretation Comments POC-GLUCOSE METER 121 mg/dL 70-110 H : TESTED A T [facility] 6720 (BEAKER) (test code = HAYDEN Rob [facility], 1538) [address]: Reversing Mill Roller/Techni rigoberto ID = [id number] for YESSI BROWN Basic Metabolic [id number] 07:06:00 Test Item Value Reference Range Interpretation Comments Sodium (test code = 140 meq/L 886-686 9672-2) Potassium (test code = 3.7 meq/L 3.5-5.1 2823-3) Chloride (test code = 109 meq/L 98-107 H 2075-0) CO2 (test code = 25 meq/L 22-29 8-9) BUN (test code = 20 mg/dL 7-21 3094-0) Creatinine (test code 1.29 mg/dL 0.57-1.25 H = 2160-0) Glucose (test code = 130 mg/dL 70-105 H 2345-7) Calcium (test code = 8.6 mg/dL 8.4-10.2 53226-7) EGFR (test code = 54 mL/min/1.73 [place] [address]-6) NOT ACCURATE CREATININE CLEARANCE IN PREDICTING GLOMERULAR FILTRATION RATE . ESTIMATED GFR I S NOT APPLICABLE FOR DIALYSIS PATIENTS. AMRITA (test code = AMRITA) Reversing Mill Roller ID - MARIELA M Lab Interpretation Abnormal (test code = 35127-2) [facility]2020-11-12 07:06:00 Test Item Value Reference Range Interpretation Comments Magnesium (test code = 2.1 mg/dL 1.6-2.6 88231-5) AMRITA (test code = AMRITA) Reversing Mill Roller ID Vikki SIERRA M Lab Interpretation (test Normal code = 59142-6) [facility]2020-[facility]-12 07:06:00 Test Item Value Reference Range Interpretation Comments Phosphorus (test code = 2.9 mg/dL 2.3-4.7 2777-1) AMRITA (test code = AMRITA) Reversing Mill Roller DEVIKA SIERRA M Lab Interpretation (test Normal code = 26496-3) [facility] Hospital[facility]IC METABOLIC [id number] 07:06:00 Test Item Value Reference Range Interpretation [...] S NOT APPLICABLE FOR DIALYSIS PATIEN TS. Reversing Mill Roller ID - MARIELA [id number] 07:06:00 Test Item Value Reference Range Interpretation Comments MAGNESIUM (BEAKER) (test code = 2.1 mg/dL 1.6-2.6 627) Reversing Mill Roller ID - MARIELA [id number] 07:06:00 Test Item Value Reference Range Interpretation Comments PHOSPHORUS (BEAKER) (test code = 2.9 mg/dL 2.3-4.7 604) Reversing Mill Roller ID - MARIELA MCBC (hemogram only)2019-12-19 05:34:00 [...] K/CU MM L MPV (test code = 94310-4) 10.6 fL 9.4-12.4 nRBC (test code = 413) 0 0- 0 /100 WBC Lab Interpretation (test code = Abnormal 86463-2) [facility] (HEMOGRAM ONLY)2019-12-19 05:34:00 Test Item Value Reference [...] 0-0 (BEAKER) (test code = 413) POCT-GLUCOSE [id number] 21:12:00 Test Item Value Reference Range Interpretation Comments POC-GLUCOSE METER 144 mg/dL 70-110 H : TESTED A T [facility] 6720 (BEAKER) (test code = [facility], 1538) [address]: Reversing Mill Roller/Techni rigoberto ID = [id number] for CESAR FIORE POCT-GLUCOSE [id number] 17:08:00 Test Item Value Reference Range Interpretation Comments POC-GLUCOSE METER 104 mg/dL 70-110 : TESTED A T [facility] 6720 (BEAKER) (test code = [facility], [facility]8) [address]: Reversing Mill Roller/Techni rigoberto ID = [id number] for PETYE RIVAS POCT-GLUCOSE [id number] 11:28:00 Test Item Value Reference Range Interpretation Comments POC-GLUCOSE METER 172 mg/dL 70-110 H : TESTED A T [facility] 6720 (BEAKER) (test code = [facility], 1538) [address]: Reversing Mill Roller/Techni rigoberto ID = [id number] for PETEY RIVAS POCT-GLUCOSE [id number] 07:50:00 Test Item Value Reference Range Interpretation Comments POC-GLUCOSE METER 123 mg/dL 70-110 H : TESTED A T [facility] 6720 (BEAKER) (test code = [facility], [facility]8) [address]: Reversing Mill Roller/Techni rigoberto ID = [id number] for PETEY RIVAS BASIC METABOLIC [id number] 06:58:00 Test Item Value Reference Range Interpretation [...] S NOT APPLICABLE FOR DIALYSIS PATIEN TS. Reversing Mill Roller ID - [id number] 06:58:00 Test Item Value Reference Range Interpretation Comments MAGNESIUM (BEAKER) (test code = 2.1 mg/dL 1.6-2.6 627) Reversing Mill Roller ID - [id number] 06:58:00 Test Item Value Reference Range Interpretation Comments PHOSPHORUS (BEAKER) (test code = 2.5 mg/dL 2.3-4.7 604) Reversing Mill Roller ID - EDASICBC (HEMOGRAM ONLY)2019-12-18 06:28:00 Test [...] 0-0 (BEAKER) (test code = 413) POCT-GLUCOSE [id number] 21:37:00 Test Item Value Reference Range Interpretation Comments POC-GLUCOSE METER 145 mg/dL 70-110 H : TESTED A T [facility] 6720 (BEAKER) (test code = [facility], 1538) [address]: Reversing Mill Roller/Techni rigoberto ID = [id number] for CESAR FIORE POCT-GLUCOSE [id number] 16:17:00 Test Item Value Reference Range Interpretation Comments POC-GLUCOSE METER 154 mg/dL 70-110 H : TESTED A T [facility] 6720 (BEAKER) (test code = [facility], 1538) [address]: Reversing Mill Roller/Techni rigoberto ID = [id number] for WI LLIAMS, TYNEKA POCT-GLUCOSE [id number] 12:11:00 Test Item Value Reference Range Interpretation Comments POC-GLUCOSE METER 150 mg/dL 70-110 H : TESTED A T [facility] 6720 (BEAKER) (test code = [facility], 1538) [address]: Reversing Mill Roller/Techni rigoberto ID = [id number] for [place] LLIAMS, TYNEKA POCT-GLUCOSE [id number] 08:07:00 Test Item Value Reference Range Interpretation Comments POC-GLUCOSE METER 132 mg/dL 70-110 H : TESTED A T [facility] 6720 (BEAKER) (test code = [facility], 1538) 76[address]: Reversing Mill Roller/Techni rigoberto ID = [id number] for [place] LLIAMS, TYNEKA BASIC METABOLIC [id number] 06:38:00 Test Item Value Reference Range Interpretation [...] S NOT APPLICABLE FOR DIALYSIS PATIEN TS. Reversing Mill Roller ID - [id number] 06:38:00 Test Item Value Reference Range Interpretation Comments MAGNESIUM (BEAKER) (test code = 2.0 mg/dL 1.6-2.6 627) Reversing Mill Roller ID - [id number] 06:38:00 Test Item Value Reference Range Interpretation Comments PHOSPHORUS (BEAKER) (test code = 1.9 mg/dL 2.3-4.7 L 604) Reversing Mill Roller ID - EDASICBC (HEMOGRAM ONLY)2019-12-17 06:07:00 Test [...] 0-0 (BEAKER) (test code = 413) POCT-GLUCOSE [id number] 21:27:00 Test Item Value Reference Range Interpretation Comments POC-GLUCOSE METER 172 mg/dL 70-110 H : TESTED A T [facility] 6720 (BEAKER) (test code = [facility], 153) [address]: Reversing Mill Roller/Techni rigoberto ID = [id number] for ANGELINE MCDANIELS SE POCT-GLUCOSE [id number] 16:32:00 Test Item Value Reference Range Interpretation Comments POC-GLUCOSE METER 171 mg/dL 70-110 H : TESTED A T [facility] 6720 (BEAKER) (test code = [facility], 1538) [address]: Reversing Mill Roller/Techni rigoberto ID = [id number] for [place] LLIAMS, TYNEKA POCT-GLUCOSE [id number] 12:16:00 Test Item Value Reference Range Interpretation Comments POC-GLUCOSE METER 157 mg/dL 70-110 H : TESTED A T [facility] 6720 ([facility]) (test code = [facility], 1538) [address]: Reversing Mill Roller/Techni rigoberto ID = [id number] for [place] LLIAMS, TYNEKA [id number] 11:13:00 Test Item Value Reference Range Interpretation Comments ACTIVATED CLOTTING TIME 120 sec : 74 -137 seconds, (BEAKER) (test code = Baseli ne: TESTED AT 441) [address], [address]: Reversing Mill Roller/Techni rigoberto ID = [id number] for SUE, PABLO N [id number] 11:13:00 Test Item Value Reference Range Interpretation Comments ACTIVATED CLOTTING TIME 268 sec : 74 -137 seconds, (BEAKER) (test code = Baseli ne: TESTED AT 441) [facility] [address] [place] [address], [address]: Reversing Mill Roller/Techni rigoberto ID = [id number] for CA STRO, JUVE [id number] 11:13:00 Test Item Value Reference Range Interpretation Comments ACTIVATED CLOTTING TIME 230 sec : 74 -137 seconds, (BEAKER) (test code = Baseli ne: TESTED AT 441) [place] [id number] [facility], [facility] 30: Reversing Mill Roller/Techni rigoberto ID = [id number] for CA STRO, JUVE Urine [id number] 09:17:00 Test Item Value Reference Range Interpretation Comments Result (test code = 6463-4) No growth [facility] [id number] 07:57:00 Test Item Value Reference Range Interpretation Comments POC-GLUCOSE METER 126 mg/dL 70-110 H : TESTED A T [facility] 6720 (BEAKER) (test code = [place], 1538) [address]: Reversing Mill Roller/Techni rigoberto ID = [id number] for ZOYA STOCKTON [id number] 06:40:00 Test Item Value Reference Range Interpretation Comments MAGNESIUM (BEAKER) (test code = 1.9 mg/dL 1.6-2.6 627) Reversing Mill Roller ID - MARIELA [id number] 06:40:00 Test Item Value Reference Range Interpretation Comments PHOSPHORUS (BEAKER) (test code = 1.6 mg/dL 2.3-4.7 L 604) Reversing Mill Roller DEVIKA SIERRA MBASIC METABOLIC [id number] 06:40:00 Test Item Value Reference Range Interpretation [...] S NOT APPLICABLE FOR DIALYSIS PATIEN TS. Reversing Mill Roller ID - MARIELA MSpecimen slightly [id number] 06:06:00 Test Item Value Reference Range Interpretation Comments PTT (test code = 04156-0) 39.6 22.5- 36.0 seconds H Lab Interpretation (test code = Abnormal 83176-0) [facility] 06:06:00 Test Item Value Reference Range [...] 0-0 (BEAKER) (test code = 413) POCT-GLUCOSE [id number] 21:32:00 Test Item Value Reference Range Interpretation Comments POC-GLUCOSE METER 181 mg/dL 70-110 H : [facility] ([facility]ER[facility] (test code = [facility], 1538) [address]: Reversing Mill Roller/Techni rigoberto ID = [id number] for ANGELINE MCDANIELS SE [id number] 05:46:00 Test Item Value Reference Range Interpretation Comments MAGNESIUM (BEAKER) (test code = 2.1 mg/dL 1.6-2.6 627) Reversing Mill Roller ID - MARIELA [id number] 05:46:00 Test Item Value Reference Range Interpretation Comments PHOSPHORUS (BEAKER) (test code = 2.2 mg/dL 2.3-4.7 L 604) Reversing Mill Roller ID Vikki SIERRA MBASIC METABOLIC [id number] 05:46:00 Test Item Value Reference Range Interpretation [...] S NOT APPLICABLE FOR DIALYSIS PATIEN TS. Reversing Mill Roller ID Vikki SIERRA MSpecimen slightly [id number] 05:09:00 Test Item Value Reference Range Interpretation [...] 0-0 (BEAKER) (test code = 413) Prepare [id number] 23:54:00 Test Item Value Reference Range Interpretation Comments Unit ABO (test code = A Pos 2469182) UNIT NUMBER (test code = [id number] 934-0) Status (test code = 8402876) WORK IN PROGRESS Blood Bank Product (test RED BLOOD CELLS code = 2263) PRODUCT CODE (test code = C3955Z75 933-2) CROSSMATCH (test code = INCOMPATIBLE 2264) [facility] [id number] 22:46:00 Test Item Value Reference Range Interpretation Comments POC-GLUCOSE METER 169 mg/dL 70-110 H : TESTED A T [facility] 6720 ([employer]) (test [facility] = [facility] [employer] [facility], 1538) [address]: Reversing Mill Roller/Techni rigoberto ID = [id number] for Myesha Ellis [id number] 21:21:00 Test Item Value Reference Range Interpretation Comments PARTIAL THROMBOPLASTIN TIME 77.7 seconds 22.5-36.0 H (BEAKER) (test code = 760) POCT-GLUCOSE [id number] 18:17:00 Test Item Value Reference Range Interpretation Comments POC-GLUCOSE METER 150 mg/dL 70-110 H : TESTED A T [facility] 6720 ([employer]) (test code = JOEYMO [employer] [facility], 1538) [address]: Reversing Mill Roller/Techni rigoberto ID = [id number] for Ma nns, Dianca [id number] 15:04:00 Test Item Value Reference Range Interpretation Comments PARTIAL THROMBOPLASTIN TIME 77.0 seconds 22.5-36.0 H (BEAKER) (test code = 760) [id number] 14:33:00 Test Item Value Reference Range Interpretation Comments MAGNESIUM (BEAKER) 2.3 mg/dL 1.6-2.6 Specimen slightly (test code = 627) hemolyzed Reversing Mill Roller ID - FEB CBASIC METABOLIC [id number] 14:33:00 Test Item Value Reference Range Interpretation [...] S NOT APPLICABLE FOR DIALYSIS PATIEN TS. Reversing Mill Roller ID - FEB CSpecimen moderately ictericPOCT-GLUCOSE [id number] 13:59:00 Test Item Value Reference Range Interpretation Comments POC-GLUCOSE METER 246 mg/dL 70-110 H : TESTED A T [facility] 6720 (BEAKER) (test code = [place], 1538) [address]: Reversing Mill Roller/Techni rigoberto ID = [id number] for CASEY SANFORD Arterial doppler legs [id number] 09:47:08Ejection FractionSLEH ECHO HEARTLAB MKCKESSON CPACSRight Impression1. The common [...] + + + + + + !Prox COURT BAILIFF ! !143 ! ! ! !0 ! ! ! + + + + + + + + + + !Mid COURT BAILIFF ! !23.6 ! ! ! !0 ! ! ! + + + + + + + + + + !Dist COURT BAILIFF ! !0 ! ! ! !0 ! [...] MARIN Date of Study 12/13/2019 DEBORAH III [id number] Age 74 Visit Number [id number] GenderMale Accession Number [id number] Date of 1945 Referring [facility] Room Number 2C20 Physician Funeral Home Manager Cm Anderson RVS Interpreting Cyndi Pastor RVT [...] + + + + + + !Prox COURT BAILIFF ! !143 ! ! ! !0 ! ! ! + + + + + + + + + + !Mid COURT BAILIFF ! !23.6 ! ! ! !0 !! ! + + +--------- + + + + + + + !Dist COURT BAILIFF ! !0 ! ! ! !0 ! [...] + + + + + + +[facility](Ankle/Brachial Index)2019-12-14 09:46:50Ejection FractionSLEH ECHO HEARTLAB MKCKESSON CPACSRight Impression1. The posterior [...] 12/13/2019 DEBORAH III Age 74 Visit Number [id number] Gender Male Accession Number [id number] Date of 1945 Referring [facility] sierra Room Number 2C20 Physician Funeral Home Manager Cm Anderson RVS Interpreting Cyndi Pastor RVT [...] measured in cm/s ;Diameters are measured in [facility] [id number] 09:12:00 Test Item Value Reference Range Interpretation Comments POC-GLUCOSE METER 161 mg/dL 70-110 H : TESTED A T [facility] 6720 (MAREK) (test code = [place]ON [place], 1538) [address]: Reversing Mill Roller/Techni rigoberto ID = [id number] for JAMES OSBORNE RAD, CHEST, 1 VIEW, NON [id number] 08:16:00Reason for exam:->post-extubationShould this be performed at the bedside?->Yes [facility] : 1945 Sex: MFINAL [...] Almendarez Verified Date/Time: 12/14/2019 08:16:23 Reading Location: [address] Body Reading Room XR chest 1 view portable / [id number] 08:16:00 Interface, External Ris In - 12/14/2019 [...] Verified Date /Time: 12/14/2019 08:16:23 Reading Location: [facility] C0[facility] Body Reading Room [facility] 08:12:00 Test Item Value Reference Range Interpretation Comments PARTIAL THROMBOPLASTIN TIME 62.4 seconds 22.5-36.0 H (BEAKER) (test code = 760) [id number] 05:48:00 Test Item Value Reference Range Interpretation Comments PARTIAL THROMBOPLASTIN TIME 148.8 seconds 22.5-36.0 H (BEAKER) (test code = 760) Blood gas, [id number] 05:30:00 Test Item Value Reference Range Interpretation Comments pH, Arterial (test code = 2744-1) 7.39 7.35-7.45 pCO2, Arterial (test code = 36 35- 45 mm Hg 2018-09) pO2, Arterial (test code = 112 80- 90 mm Hg H 3-7) O2 Sat, Arterial (test code = 97.8 % 96-97 H 2708-6) HCO3, Arterial (test code = 21 mmol/L 21-29 1959-4) Base Excess, Arterial (test code -3.4 mmol/L -2-3 L = 1925-7) Patient Temperature (test code = 38.4 8310-5) FIO2 (test code = 1819) 60 Lab Interpretation (test code = Abnormal 37874-8) [facility], [id number] 05:30:00 Test Item Value Reference Range Interpretation [...] WBC 0-0 (BEAKER) (test code = 413) [id number] 04:00:00 Test Item Value Reference Range Interpretation Comments MAGNESIUM (BEAKER) (test code = 2.3 mg/dL 1.6-2.6 627) Reversing [employer] Roller ID - [id number] 04:00:00 Test Item Value Reference Range Interpretation Comments PHOSPHORUS (BEAKER) (test code = 3.4 mg/dL 2.3-4.7 604) Reversing [employer] ID - EDASIBASIC METABOLIC [id number] 04:00:00 Test Item Value Reference Range Interpretation [...] S NOT APPLICABLE FOR DIALYSIS PATIEN TS. Reversing [employer] Rol[employer] ID - EDASISpecimen slightly ictericRAD, CHEST, 1 VIEW, NON DEPT 2019-12-14 00:36:00Reason for exam:->Post-opShould this be performed at the bedside?->YesCHI [facility] : 1945 Sex: MFINAL [...] Stable contours.Additional findings: None. Signed: Vamsi Foster MDReport Verified Date/Time: 12/14/2019 00:36:00 [id number] 23:58:00 Test Item Value Reference Range Interpretation Comments PARTIAL THROMBOPLASTIN TIME 42.6 seconds 22.5-36.0 H (BEAKER) (test code = 760) BASIC METABOLIC [id number] 23:58:00 Test Item Value Reference Range Interpretation [...] S NOT APPLICABLE FOR DIALYSIS PATIEN TS. Reversing [employer] ID - [id number] 23:58:00 Test Item Value Reference Range Interpretation Comments MAGNESIUM (BEAKER) (test code = 2.6 mg/dL 1.6-2.6 627) Reversing [employer] ID - [id number] 23:58:00 Test Item Value Reference Range Interpretation Comments PHOSPHORUS (BEAKER) (test code = 4.1 mg/dL 2.3-4.7 604) Reversing [employer] Roller ID - DBProthrombin time/[id number] 23:57:00 Test Item Value Reference Range Interpretation [...] valves. Lab Interpretation Abnormal (test code = 83376-8) [facility] HospitalPROTHROMBIN TIME/[id number] 23:57:00 Test Item Value Reference Range Interpretation [...] 0-0 (BEAKER) (test code = 413) POCT-GLUCOSE [id number] 23:36:00 Test Item Value Reference Range Interpretation Comments POC-GLUCOSE METER 158 mg/dL 70-110 H : TESTED A T [facility] 6720 (BEAKER) (test code = [place], 1538) [address]: Reversing Mill Roller/Techni rigoberto ID = [id number] for LLA, HERON BLOOD GAS, [id number] 23:32:00 Test Item Value Reference Range Interpretation [...] (BEAKER) (test code = 1819) 60.0 Calcium, [id number] 23:30:00 Test Item Value Reference Range Interpretation Comments Calcium, Ion (test code = 1994-3) 1.20 mmol/L 1.12-1.27 pH, Blood (test code = 67869-6) 7.31 [facility] HospitalCALCIUM, [id number] 23:30:00 Test Item Value Reference Range Interpretation Comments CALCIUM IONIZED (BEAKER) (test 1.20 mmol/L 1.12-1.27 code = 698) PH, BLOOD (BEAKER) (test code = 7.31 1810) [id number] 21:55:00 Test Item Value Reference Range Interpretation Comments ACTIVATED CLOTTING TIME 125 sec : 74 -137 seconds, (BEAKER) (test code = Baseli ne: TESTED AT 441) [address], [facility] 30: Reversing Mill Roller/Techni rigoberto ID = [id number] for LETHRIDGE, HERNANDEZ CRUZ [id number] 21:55:00 Test Item Value Reference Range Interpretation Comments ACTIVATED CLOTTING TIME 235 sec : 74 -137 seconds, (BEAKER) (test code = Baseli ne: TESTED AT 441) [address], [facility] 30: Reversing Mill Roller/Techni rigoberto ID = [id number] for LETHRIDGE, HERNANDEZ CRUZ [id number] 21:55:00 Test Item Value Reference Range Interpretation Comments ACTIVATED CLOTTING TIME 241 sec : 74 -137 seconds, (BEAKER) (test code = Baseli ne: TESTED AT 441) [address], 770 30: Reversing Mill Roller/Techni rigoberto ID = [id number] for MARY GIBBS [id number] 21:55:00 Test Item Value Reference Range Interpretation Comments ACTIVATED CLOTTING TIME 241 sec : 74 -137 seconds, (BEAKER) (test code = Baseli ne: TESTED AT 441) [address], 770 30: Reversing Mill Roller/Techni rigoberto ID = [id number] for MARY GIBBS [id number] 21:55:00 Test Item Value Reference Range Interpretation Comments ACTIVATED CLOTTING TIME 246 sec : 74 -137 seconds, (BEAKER) (test code = Singh ne: TESTED AT 441) [address], [facility] 30: Reversing Mill Roller/Techni rigoberto ID = [id number] for CA STRO, JUVE HGB/HCT (H&H)-Stat [id number] 20:53:00 Test Item Value Reference Range Interpretation Comments Hemoglobin (test code = 786-4) 10.1 13.0- 16.8 GM/DL L Hematocrit (test code = 4544-3) 30.0 % 40-50 L Lab Interpretation (test code = Abnormal 91739-0) [facility] HospitalGlucose-Stat [id number] 20:53:00 Test Item Value Reference Range Interpretation Comments Glucose (test code = 2345-7) 138 mg/dL 70-110 H Lab Interpretation (test code = Abnormal 72623-6) [facility] [id number] 20:53:00 Test Item Value Reference Range Interpretation Comments Sodium (test code = 2951-2) 138 meq/L 136-145 Lab Interpretation (test code = Normal 91152-6) [facility] HospitalPotassium-Stat [id number] 20:53:00 Test Item Value Reference Range Interpretation Comments Potassium (test code = 2823-3) 4.0 meq/L 3.6-5.5 Lab Interpretation (test code = Normal 36114-9) [facility] NA-STAT [id number] 20:53:00 Test Item Value Reference Range Interpretation Comments SODIUM (BEAKER) (test code = 381) 138 meq/L 136-145 POTASSIUM-STAT [id number] 20:53:00 Test Item Value Reference Range Interpretation Comments POTASSIUM (BEAKER) (test code = 4.0 meq/L 3.6-5.5 379) CALCIUM, [id number] 20:53:00 Test Item Value Reference Range Interpretation Comments CALCIUM IONIZED (BEAKER) (test 1.16 mmol/L 1.12-1.27 code = 698) PH, BLOOD (BEAKER) (test code = 7.34 1810) BLOOD GAS, [id number] 20:53:00 Test Item Value Reference Range Interpretation [...] (BEAKER) (test code = 1819) 60.0 GLUCOSE-STAT [id number] 20:53:00 Test Item Value Reference Range Interpretation Comments GLUCOSE RANDOM (BEAKER) (test code 138 mg/dL 70-110 H = 652) HGB/HCT (H&H) - STAT [id number] 20:53:00 Test Item Value Reference Range Interpretation Comments HEMOGLOBIN (BEAKER) (test code = 10.1 GM/DL 13.0-16.8 L 410) HEMATOCRIT (BEAKER) (test code = 30.0 % 40.0-50.0 L 411) CALCIUM, [id number] 19:44:00 Test Item Value Reference Range Interpretation Comments CALCIUM IONIZED (BEAKER) (test 1.20 mmol/L 1.12-1.27 code = 698) PH, BLOOD (BEAKER) (test code = 7.36 1810) SODIUM NA-STAT [id number] 19:43:00 Test Item Value Reference Range Interpretation Comments SODIUM (BEAKER) (test code = 381) 138 meq/L 136-145 POTASSIUM-STAT [id number] 19:43:00 Test Item Value Reference Range Interpretation Comments POTASSIUM (BEAKER) (test code = 3.6 meq/L 3.6-5.5 379) BLOOD GAS, [id number] 19:43:00 Test Item Value Reference Range Interpretation [...] (BEAKER) (test code = 1819) 60.0 GLUCOSE-STAT [id number] 19:43:00 Test Item Value Reference Range Interpretation Comments GLUCOSE RANDOM (BEAKER) (test code 125 mg/dL 70-110 H = 652) HGB/HCT (H&H) - STAT [id number] 19:43:00 Test Item Value Reference Range Interpretation Comments HEMOGLOBIN (BEAKER) (test code = 6.4 GM/DL 13.0-16.8 L 410) HEMATOCRIT (BEAKER) (test code = 19.0 % 40.0-50.0 L 411) Lactic Acid, [id number] 18:50:00 Test Item Value Reference Range Interpretation Comments Lactate, Art (test code = 0.7 mmol/L 0.5-2.2 2874) AMRITA (test code = AMRITA) Reversing Mill Roller ID - BS Lab Interpretation (test Normal code = 84004-9) [facility] HospitalLACTIC ACID, [id number] 18:50:00 Test Item Value Reference Range Interpretation Comments LACTATE BLOOD ARTERIAL (2) 0.7 mmol/L 0.5-2.2 (BEAKER) (test code = 2874) Reversing Mill Roller ID - BSCALCIUM, [id number] 18:29:00 Test Item Value Reference Range Interpretation Comments CALCIUM IONIZED (BEAKER) (test 1.07 mmol/L 1.12-1.27 L code = 698) PH, BLOOD (BEAKER) (test code = 7.31 1810) BLOOD GAS, [id number] 18:29:00 Test Item Value Reference Range Interpretation [...] (BEAKER) (test code = 1819) 68.0 POTASSIUM-STAT [id number] 18:29:00 Test Item Value Reference Range Interpretation Comments POTASSIUM (BEAKER) (test code = 3.4 meq/L 3.6-5.5 L 379) GLUCOSE-STAT [id number] 18:29:00 Test Item Value Reference Range Interpretation Comments GLUCOSE RANDOM (BEAKER) (test code 138 mg/dL 70-110 H = 652) HGB/HCT (H&H) - STAT [id number] 18:29:00 Test Item Value Reference Range Interpretation Comments HEMOGLOBIN (BEAKER) (test code = 8.9 GM/DL 13.0-16.8 L 410) HEMATOCRIT (BEAKER) (test code = 26.0 % 40.0-50.0 L 411) SODIUM NA-STAT [id number] 18:28:00 Test Item Value Reference Range Interpretation Comments SODIUM (BEAKER) (test code = 381) 138 meq/L 136-145 Manual [id number] 14:30:00 Test Item Value Reference Range Interpretation Comments % Neutros (test code = 4 % 2816) % Lymphs (test code = 92 % [...] = 486) AMRITA (test code = AMRITA) Reversing Mill Roller ID - 6000 Lab Interpretation (test Abnormal code = 72593-1) [facility] [place] platelet [place] + manual [id number] 14:30:00 Test Item Value Reference Range Interpretation [...] 450 K/CU MM MPV (test code = 46492-6) 10.1 fL 9.4-12.4 nRBC (test code = 413) 0 0- 0 /100 WBC Lab Interpretation (test code = Abnormal 63112-1) [facility] [place] PLATELET COUNT + MANUAL [id number] 14:30:00 Test Item Value Reference Range Interpretation [...] MORPHOLOGY (BEAKER) (test code Normal = 486) Reversing Mill Roller ID - 6000CBC with platelet count + automated [id number] 13:53:00 Test Item Value Reference Range Interpretation [...] 450 K/CU MM MPV (test code = 50011-4) 10.4 fL 9.4-12.4 nRBC (test code = 413) 0 0- 0 /100 WBC Lab Interpretation (test code = Abnormal 93147-5) [facility]CB W/PLT COUNT & AUTO [id number] 13:53:00 Test Item Value Reference Range Interpretation [...] (BEAKER) (test code = 413) BASIC METABOLIC [id number] 12:20:00 Test Item Value Reference Range Interpretation [...] S NOT APPLICABLE FOR DIALYSIS PATIEN TS. Reversing Mill Roller ID - TI [id number] 12:20:00 Test Item Value Reference Range Interpretation Comments MAGNESIUM (BEAKER) (test code = 1.9 mg/dL 1.6-2.6 627) Reversing Mill Roller ID - TI [id number] 12:20:00 Test Item Value Reference Range Interpretation Comments PHOSPHORUS (BEAKER) (test code = 3.8 mg/dL 2.3-4.7 604) Reversing Mill Roller ID - TI [id number] 12:02:00 Test Item Value Reference Range Interpretation Comments PARTIAL THROMBOPLASTIN TIME 36.1 seconds 22.5-36.0 H (BEAKER) (test code = 760) PROTHROMBIN TIME/[id number] 12:01:00 Test Item Value Reference Range Interpretation [...] mechanical heart valves.Urinalysis w/Microscopic + Reflex to [id number] 11:56:00 Test Item Value Reference Range Interpretation Comments Color, UA (test code = Light Yellow 5778-6) Clarity, UA (test code = Cloudy 5767-9) Specific [place], UA (test 1.036 1.001-1.035 H code = 5811-5) pH, UA (test code = 6.0 5.0-8.0 5803-2) Protein, UA (test code = 30 mg/dL Negative A 04604-8) Glucose, UA (test code = Negative Negative 365) Ketones, UA (test code = Negative Negative 7084-8) Bilirubin, UA (test code = Negative Negative 29233-5) Blood, UA (test code = Small Negative A 34174-7) Nitrite, UA (test code = Negative Negative 5802-4) Leukocytes, UA (test code Large Negative A = 5799-2) Urobilinogen, UA (test 0.2 mg/dL 0.2-1 code = 24802-5) RBC, UA (test code = 18 /HPF 56055-0) WBC, UA (test code = 769 /HPF 5821-4) Bacteria, UA (test code = Rare 18321-8) Specimen Source (test code = 2795) AMRITA (test code = AMRITA) Reversing Mill Roller ID - [auto]Reversing Mill Roller ID - tech Lab Interpretation (test Abnormal code = 29628-8) [facility]UR[facility]IS W/ REFLEX URINE [id number] 11:56:00 Test Item Value Reference Range Interpretation [...] Rare 517) SOURCE(BEAKER) (test code = 2795) Reversing Mill Roller ID - [auto]Reversing Mill Roller ID - techRAD, CHEST, 1 VIEW, NON [id number] 11:28:00Reason for exam:->Post-opShould this be performed at the bedside?->YesCH[facility] : 1945 Sex: MFINAL REPORT CLINICAL HISTORY: Post-op TECHNIQUE: 1 view of the chest. COMPARISON: 12/11/2019 IMPRESSION: There are new mildly prominent lung markings in the right upper lung and bilateral lower lung zones. There are no significant appearing pleural effusions. The cardiomediastinal silhouette is magnified by technique. Signed: Vane Pretty MDReport Verified Date/Time: 12/13/2019 11:28:43 Reading Location: [facility] Radiology Reading Room SODIUM NA- STAT [id number] 08:38:00 Test Item Value Reference Range Interpretation Comments SODIUM (BEAKER) (test code = 381) 138 meq/L 136-145 CALCIUM, [id number] 08:38:00 Test Item Value Reference Range Interpretation Comments CALCIUM IONIZED (BEAKER) (test 1.10 mmol/L 1.12-1.27 L code = 698) PH, BLOOD (BEAKER) (test code = 7.41 1810) BLOOD GAS, [id number] 08:38:00 Test Item Value Reference Range Interpretation [...] (BEAKER) (test code = 1819) 50.0 POTASSIUM-STAT [id number] 08:38:00 Test Item Value Reference Range Interpretation Comments POTASSIUM (BEAKER) (test code = 3.2 meq/L 3.6-5.5 L 379) GLUCOSE-STAT [id number] 08:38:00 Test Item Value Reference Range Interpretation Comments GLUCOSE RANDOM (BEAKER) (test code 148 mg/dL 70-110 H = 652) HGB/HCT (H&H) - STAT [id number] 08:38:00 Test Item Value Reference Range Interpretation Comments HEMOGLOBIN (BEAKER) (test code = 9.0 GM/DL 13.0-16.8 L 410) HEMATOCRIT (BEAKER) (test code = 26.0 % 40.0-50.0 L 411) Hemoglobin [id number] 08:26:00 Test Item Value Reference Range Interpretation Comments Hemoglobin A1C (test 5.2 % 4.3-6.1 code = 4548-4) AMRITA (test code = AMRITA) Please recheckPlease recheck Lab Interpretation Normal (test code = 19706-6) [facility] HospitalHEMOGLOBIN [id number] 08:26:00 Test Item Value Reference Range Interpretation Comments HEMOGLOBIN A1C (BEAKER) (test code = 5.2 % 4.3-6.1 368) Please recheckPlease recheckBASIC METABOLIC [id number] 05:01:00 Test Item Value Reference Range Interpretation [...] S NOT APPLICABLE FOR DIALYSIS PATIEN TS. Reversing Mill Roller ID - [id number] 05:01:00 Test Item Value Reference Range Interpretation Comments MAGNESIUM (BEAKER) (test code = 2.0 mg/dL 1.6-2.6 627) Reversing Mill Roller ID - [id number] 05:01:00 Test Item Value Reference Range Interpretation Comments PHOSPHORUS (BEAKER) (test code = 3.8 mg/dL 2.3-4.7 604) Reversing Mill Roller ID - EDASIPOCT-GLUCOSE [id number] 21:38:00 Test Item Value Reference Range Interpretation Comments POC-GLUCOSE METER 216 mg/dL 70-110 H : TESTED A T [facility] 6720 (BEAKER) (test code = [place], 1538) [address]: Reversing Mill Roller/Techni rigoberto ID = [id number] for Re yes, Sairy PROTHROMBIN TIME/[id number] 19:09:00 Test Item Value Reference Range Interpretation [...] for patients wiht mechanical heart valves.BASIC METABOLIC [id number] 17:03:00 Test Item Value Reference Range Interpretation [...] S NOT APPLICABLE FOR DIALYSIS PATIEN TS. Reversing Mill Roller ID - BSPOCT-GLUCOSE [id number] 16:54:00 Test Item Value Reference Range Interpretation Comments POC-GLUCOSE METER 125 mg/dL 70-110 H : TESTED A T [facility] 6720 (BEAKER) (test code = [place], 1538) [address]: Reversing Mill Roller/Techni rigoberto ID = [id number] for PHYLLIS FIORE Carotid doppler [id number] 07:51:37Ejection FractionSLE ECHO HEARTLAB MKCKESSON CPACSRight Impression1. [...] DUKE MARIN Date of Study 12/11/2019 DEBORAH TUCKER Age 74 Visit Number [id number] Gender Male Accession Number [id number] Date of 1945 Referring Casey Lo NP Room Number Physician [employer] Manager Peter Forbes T Interpreting Caryl Gao, Physician ProcedureType of Study: Cerebral: Carotid, CAROTID [...] + + - Additional Measurements:ICAPSV/CCAPSV 0.85.ICAEDV/CCAEDV 0.94.[facility])2019-12-11 21:52:00 Test Item Value Reference Range Interpretation Comments SARS-COV2/RT-PCR (test Negative Not Detected, Negative, code = 8560902) See external report for linked test SARS-COV-2 PERFORMING LAB [facility] GENEVIEVE (test code = 3134242) Negative result for this test determines that [...] of the Act.Testing was performed using the [employer] SARS-CoV-2 assay.Fact Sheet for Healthcare Providers:https://www.molecular.killian/nicky/ KC_SSAR-PhP-5_KVD_Xhvb_Lyfwh_05-820443.pdfFact Sheet for Healthcare Patients:https://www.PodPoster.ab hoang/nicky/PR_RDWE-DkN-2_Amksauq_Uwzp_Vnczp_PJ_23-238513M6.pdfPerforming Laboratory:[place] [address] [place] [address] Hepatitis B [id number] 19:59:00 Test Item Value Reference Range Interpretation Comments Hep B Core Total Ab (test Nonreactive Nonreactive code = 93941-0) Hep B S Ab (test code = <8.0 <8.0 mIU/mL 03170-7) HBsAg Screen (test code = Nonreactive Nonreactive 5195-3) AMRITA (test code = AMRITA) Reversing Mill Roller ID - ADMIN Lab Interpretation (test Normal code = 10371-5) [facility] HospitalHEPATITIS B [id number] 19:59:00 Test Item Value Reference Range Interpretation Comments HEPATITIS B CORE TOTAL ANTIBODY Nonreactive Nonreactive (BEAKER) (test code = 497) HEPATITIS B SURFACE ANTIBODY < mIU/mL <8.0 (BEAKER) (test code = 647) HEPATITIS B SURFACE ANTIGEN (2) Nonreactive Nonreactive (BEAKER) (test code = 2585) Reversing [employer] Roller ID - ADMINHEMOGLOBIN [id number] 19:58:00 Test Item Value Reference Range Interpretation Comments HEMOGLOBIN A1C (BEAKER) (test code = 5.5 % 4.3-6.1 368) Received comment: User comments: Slide comments: Received comment: User comments: Slide comments:Hepatitis C [id number] 19:52:00 Test Item Value Reference Range Interpretation Comments Hepatitis C Ab (test code Nonreactive Nonreactive = 31815-8) AMRITA (test code = AMRITA) Reversing Mill Roller ID - ADMIN Lab Interpretation (test Normal code = 18749-1) [facility] HospitalHIV-1 Antigen with HIV-1/2 [id number] 19:52:00 Test Item Value Reference Range Interpretation Comments HIV-1 Antigen with HIV Nonreactive Nonreactive 1&2 Antibody (test code = 26463-2) AMRITA (test code = AMRITA) Reversing Mill Roller ID - ADMIN Lab Interpretation (test Normal code = 25761-5) [facility] HospitalHEPATITIS C [id number] 19:52:00 Test Item Value Reference Range Interpretation Comments HEPATITIS C ANTIBODY (BEAKER) Nonreactive Nonreactive (test code = 367) Reversing [employer] Roller ID - ADMINHIV-1 ANTIGEN WITH HIV-1/2 [id number] 19:52:00 Test Item Value Reference Range Interpretation Comments HIV-1 ANTIGEN WITH HIV 1\\T\\2 Nonreactive Nonreactive ANTIBODY (2) (BEAKER) (test code = 2586) Reversing [employer] Roller ID - ADMINAntibody [id number] 16:23:00 Test Item Value Reference Range Interpretation Comments ANTIBODY ID UNID IgGWARM (BEAKER) (test AUTO AB code = 2253) Antibody Consult SIGNED OUT Warm vitaliy lópez (test code = detected, ok to 2479) transfuse incom patible bloodElectronic Signature: Radhika Woo M.D. [facility](CELLAVISION MANUAL DIFF)2019-12-11 15:57:00 Test Item Value [...] CONCENTRATION Adequate (CELLAVISION)(BEAKER) (test code = 3438) Reversing Mill Roller ID - villagee Robles comments: Slide comments:CBC W/PLT COUNT & AUTO [id number] 15:28:00 Test Item Value Reference Range Interpretation [...] (test code = 413) Type and screen, [id number] 14:53:00 Test Item Value Reference Range Interpretation Comments ABO/RH AUTOMATED (BEAKER) (test A POSITIVE code = 2260) Ab Scrn (test code = 890-4) POSITIVE echo 1 [facility] HospitalDirect [facility] ([facility])/Direct [id number] 14:08:00 Test Item Value Reference Range Interpretation Comments Direct AHG-IGG (test code = 1006-6) POSITIVE 4+ Direct AHG-C3B, C3D (test code = POSITIVE Micro+ 1003-3) [facility] HospitalRAD, CHEST, 2 [id number] 13:32:00Reason for Exam:->[facility]-opP[facility] : 1945 Sex: MFINAL REPORT PA and Lateral views of the chest dated 12/11/2019 Clinical information: pre-op Comment: Heart is normal in size. Thoracic aorta is ectatic. Pulmonary vasculature is unremarkable. Lungs are clear. No pulmonary infiltrate or pleural effusion is present.Impression: No active cardiopulmonary disease. Signed: Vamsi Johns Verified Date/Time: 05/2019 13:32:39 Reading Location: [facility] Radiology Reading Room XR chest 2 [id number] 13:32:00Interface, External Ris In - 12/11/2019 1:34 PM CSTFINAL REPORT PA and Lateral views of the chest dated 12/11/2019 Clinical information: pre-op Comment: Heart is normal in size. Thoracic aorta is ectatic. Pulmonary vasculature is unremarkable. Lungs are clear. No pulmonary infiltrate or pleural effusion is present. Impression: No active cardiopulmonary disease. Signed: Vamsi Johns Verified Date/Time: 12/11/2019 13:32:39 Reading Location: [facility] Radiology Reading [facility] MET[facility]OLIC [id number] 12:30:00 Test Item Value Reference Range Interpretation [...] mg/dL 8.4-10.2 (test code = 697) EGFR (FARIDEHAKER) (test 38 mL/min/1.73 ESTIMA SHANTA GFR IS code = 1092) sq m NOT ACCURATE CREATININE CLEARANCE IN PREDICTING GLOMERULAR FILTRATION RATE . ESTIMATED GFR I S NOT APPLICABLE FOR DIALYSIS PATIEN TS. Reversing Mill Roller ID - [id number] 11:26:00 Test Item Value Reference Range Interpretation Comments Albumin (test code = 4.1 g/dL 3.5-5 46058-0) AMRITA (test code = AMRITA) Reversing [employer] Roller ID - ADMIN Lab Interpretation (test Normal code = 74323-1) [facility] HospitalAmylase2020-11-04 11:26:00 Test Item Value Reference Range Interpretation Comments Amylase (test code = 30 U/L 25-125 1798-8) AMRITA (test code = AMRITA) Reversing Mill Roller ID - ADMIN Lab Interpretation (test Normal code = 87360-2) [facility] HospitalBilirubin, adult [id number] 11:26:00 Test Item Value Reference Range Interpretation Comments Total Bilirubin (test code 0.9 mg/dL 0.2-1.2 = 1975-2) AMRITA (test code = AMRITA) Reversing [employer] Roller ID - ADMIN Lab Interpretation (test Normal code = 43540-2) [facility] HospitalBilirubin, [id number] 11:26:00 Test Item Value Reference Range Interpretation Comments Bilirubin, Direct (test 0.4 mg/dL 0.1-0.5 code = 1968-7) AMRITA (test code = AMRITA) Reversing [employer] Roller ID - ADMIN Lab Interpretation (test Normal code = 68615-0) [facility] HospitalLactate dehydrogenase (LDH)2019-12-11 11:26:00 Test Item Value Reference Range Interpretation Comments LDH (test code = 2532-0) 177 U/L 125-220 AMRITA (test code = AMRITA) Reversing [employer] Roller ID - ADMIN Lab Interpretation (test Normal code = 55135-3) [facility] HospitalLipase2020-11-04 11:26:00 Test Item Value Reference Range Interpretation Comments Lipase (test code = 22 U/L 8-78 3040-3) AMRITA (test code = AMRITA) Reversing [employer] Roller ID - ADMIN Lab Interpretation (test Normal code = 62942-9) [facility] HospitalAlkaline [id number] 11:26:00 Test Item Value Reference Range Interpretation Comments Alkaline Phosphatase (test 93 U/L 40-150 code = 6768-6) AMIRTA (test code = AMRITA) Reversing [employer] Roller ID - ADMIN Lab Interpretation (test Normal code = 71667-6) [facility] HospitalProtein, [id number] 11:26:00 Test Item Value Reference Range Interpretation Comments Protein, Total (test code 6.1 6.0- 8.3 gm/dL = 2885-2) AMRITA (test code = AMRITA) Reversing [employer] Roller ID - ADMIN Lab Interpretation (test Normal code = 96105-7) [facility]00 Test Item Value Reference Range Interpretation Comments AST (test code = 1920-8) 12 U/L 5-34 AMRITA (test code = AMRITA) Reversing [employer] ID - ADMIN Lab Interpretation (test Normal code = 81245-5) [facility] 11:26:00 Test Item Value Reference Range Interpretation Comments ALT (test code = 1742-6) 12 U/L 6-55 AMRITA (test code = AMRITA) Reversing [employer] ID - ADMIN Lab Interpretation (test Normal code = 19308-1) [facility]ALKALINE [id number] 11:26:00 Test Item Value Reference Range Interpretation Comments ALKALINE PHOSPHATASE (BEAKER) (test 93 U/L 40-150 code = 346) [employer]vers[employer] ID - ADMINPROTEIN, MWSHL1940-62-25 11:26:00 Test Item Value Reference Range Interpretation Comments TOTAL PROTEIN (BEAKER) (test code = 6.1 gm/dL 6.0-8.3 770) Reversing [employer] ID - ADMINAST (SGOT)2019-12-11 11:26:00 Test Item Value Reference Range Interpretation Comments AST (SGOT) (BEAKER) (test code = 353) 12 U/L 5-34 Reversing [employer] ID - ADMINALT (SGPT)2019-12-11 11:26:00 Test Item Value Reference Range Interpretation Comments ALT (SGPT) (BEAKER) (test code = 347) 12 U/L 6-55 Reversing [employer] ID - MYIRNYISNYYO1868-54-46 11:26:00 Test Item Value Reference Range Interpretation Comments ALBUMIN (BEAKER) (test code = 1145) 4.1 g/dL 3.5-5.0 Reversing [employer] ID - GVVDYHQLDDAJ5799-14-53 11:26:00 Test Item Value Reference Range Interpretation Comments AMYLASE (BEAKER) (test code = 349) 30 U/L 25-125 Revers[employer] [place] [employer] ID - ADMINBILIRUBIN, ADULT [id number] 11:26:00 Test Item Value Reference Range Interpretation Comments BILIRUBIN TOTAL (BEAKER) (test code 0.9 mg/dL 0.2-1.2 = 377) Reversing [employer] ID - ADMINBILIRUBIN, [id number] 11:26:00 Test Item Value Reference Range Interpretation Comments BILIRUBIN DIRECT (BEAKER) (test 0.4 mg/dL 0.1-0.5 code = 706) [employer]vers[employer] ID - ADMINLACTATE DEHYDROGENASE (LDH)2019-12-11 11:26:00 Test Item Value Reference Range Interpretation Comments LACTATE DEHYDROGENASE (BEAKER) (test 177 U/L 125-220 code = 635) Reversing [employer] ID - ARXSRIGAERA1882-18-07 11:26:00 Test Item Value Reference Range Interpretation Comments LIPASE (BEAKER) (test code = 749) 22 U/L 8-78 Reversing [employer] ID - ADMINUrinalysis w/Ulokqtgypjn8458-45-97 11:18:00 Test Item Value Reference Range Interpretation Comments Color, UA (test code = Light Yellow 5778-6) Clarity, UA (test code = Hazy 5767-9) Specific [place], UA (test 1.011 1.001-1.035 code = 5811-5) pH, UA (test code = 6.5 5.0-8.0 5803-2) Protein, UA (test code = 10 mg/dL Negative A 33872-2) Glucose, UA (test code = 1000 mg/dL Negative A 365) Ketones, UA (test code = Negative Negative 2514-8) Bilirubin, UA (test code = Negative Negative 66337-2) Blood, UA (test code = Small Negative A 49639-9) Nitrite, UA (test code = Negative Negative 5802-4) Leukocytes, UA (test code Large Negative A = 5799-2) Urobilinogen, UA (test 0.2 mg/dL 0.2-1 code = 49384-3) RBC, UA (test code = 4 /HPF 69142-1) WBC, UA (test code = 152 /HPF 5821-4) Mucus (test code = 8247-9) Rare Squam Epithel, UA (test <1 /HPF code = 51750-4) Specimen Source (test code = 2795) AMRITA (test code = AMRITA) Reversing [employer] Roller ID - [auto]Reversing Mill Roller ID - tech Lab Interpretation (test Abnormal code = 53483-0) [facility]/ [id number] 11:18:00 Test Item Value Reference Range Interpretation [...] = 516) SOURCE(BEAKER) (test code = 2795) Reversing [employer] Rol[employer] ID - [auto]Reversing [employer] Roller ID - yknaMQKW8025-15-32 11:14:00 Test Item Value Reference Range Interpretation Comments PARTIAL THROMBOPLASTIN TIME 32.6 seconds 22.5-36.0 (BEAKER) (test code = 760) PROTHROMBIN TIME/RJC4883-04-20 11:13:00 Test Item Value Reference Range Interpretation [...] is2.5-3.5 for patients wiht mechanical heart valves.Reticulocyte ilwfw3487-03-36 11:12:00 Test Item Value Reference Range Interpretation Comments % Retic (test code = 3.3 % 0.5-1.8 H 99524-3) AMRITA (test code = AMRITA) Reversing Mill Roller ID - 6000 Lab Interpretation (test Abnormal code = 42324-9) [facility] HospitalRETICULOCYTE [id number] 11:12:00 Test Item Value Reference Range Interpretation Comments RETICULOCYTE COUNT PCT (BEAKER) (test 3.3 % 0.5-1.8 H code = 575) Reversing Mill Roller ID - 6000Pulmonary Funct Lab Mzdsusbhsj6072-60-28 10:30:00Bianca Ly, MILANESE KNITTING MACHINE OPERATOR, CIRCULATION SUPERVISOR 11/21/2019 12:31 [facility] PFT CHARTING REPORT Infection Control/Hand Hygiene procedures followed throughout the encounter with patient: YesPatient Identification Method: Patient name verified on armband, and Medical record on armband, Is the order complete?: Yes Account ID#: [id number] Name: Duke Mairn IIIBirthdate: 1945 Age: 74 y.o. Sex: male [...] and patient released from the lab without adverseoutcome.[facility], CTA, KUIWJTF9481-72-21 14:08:00Part of CTA Chest, ABD and Pelvis [...] nonobstructing atherosclerotic changes throughout the abdominal aorta. Software Validation Technician dimensions of the thoracic aorta are as [...] appear normal. The spleen is mildly enlarged, bvjbaxlor19 cm in length in the craniocaudal dimension. [...] with this patient bladder cancer. Signed: Kim Hamiltoneport Verified Date/Time: 11/05/2019 14:08:15 Reading Location: [facility] Reading Room [address] [place] [address] CT, CTA, [id number] 14:08:00Unlisted Reason for Exam - Click Yes [...] nonobstructing atherosclerotic changes throughout the abdominal aorta. Software Validation Technician dimensions of the thoracic aorta are as [...] appear normal. The spleen is mildly enlarged, lyabxhyau89 cm in length in the craniocaudal dimension. The adrenal glands appear normal. Both kidneys arenormal in size, shape, and density. Multiple bilateral renal cysts have not significantly changed since 2013. The largest measures 4.5 cm in the [...] MDReport Verified Date/Time: 11/05/2019 14:08:15 Reading Location: [facility] Reading Room [address] [place] [address] CT/CTA abdomen & pelvis - For [id number] 14:08:00Interface, External Ris In - 11/05/2019 2:10 [...] nonobstructing atherosclerotic changes throughout the abdominal aorta. Software Validation Technician dimensions of the thoracic aortaare as follows: [...] this patient bladder cancer. Signed: Kim Hamilton Verified Date/Time: 11/05/2019 14:08:15 Reading Location: [facility] Reading Room [address] [place] [address] [facility] vvjli[facility]11[facility] 14:08:00Interface, External Ris In - 11/05/2019 2:10 [...] nonobstructing atherosclerotic changes throughout the abdominal aorta. Software Validation Technician dimensions of the thoracic aortaare as follows: [...] this patient bladder cancer. Signed: Kim Hamilton Verified Date/Time: 11/05/2019 14:08:15 Reading Location: [facility] Reading Room [address] [place] [address] [facility]-Utegjcluob6726-44-42 07:38:00 Test Item Value Reference Range Interpretation Comments POC-Creatinine (test code 1.7 mg/dL 0.6-1.3 H : TESTED AT [facility] = 1859) [address] [facility] [address]: Reversing Mill Roller/Techni rigoberto ID = [id number] for IRVIN LOMBARDI POC-EGFR (test code = 40 mL/min/1.73M2 1860) Lab Interpretation (test Abnormal code = 71741-0) [facility]-AUPONCQPDL2600-08-75 07:38:00 Test Item Value Reference Range Interpretation Comments POC-CREATININE 1.7 mg/dL 0.6-1.3 H : TESTED AT [facility] ([facility]) (test [address] [facility] code = 1859) [facility] 7 7030: Reversing Mill Roller/Techni rigoberto ID = [id number] for IRVIN LOMBARDI POC-EGFR 40 mL/min/1.73M2 ([facility]) (test code = 1860) TISSUE [id number] 14:55:00Surgical Pathology Report Case: [id number] Authorizing Provider: Brown Garcia MD Collected: 02/16/2018 1004 Ordering Location: [facility] PERIOPERATIVE Received: 02/16/2018 1117 SERVICES [...] CHRONIC INFLAMMATION Signing Pathologist Direct Phone Line: [phone] signed by Nicolas Diaz MD on 02/20/2018 at 2:55 [id number], [id number] X 2Malignant neoplasm of urinary bladder A. [...] = 13) 50-59,000 col/mL skin floraURINALYSIS W/ ZKCKJHNDXNP9101-32-97 18:16:00 Test Item Value Reference Range Interpretation [...] = Occasional 1585) SOURCE(BEAKER) (test code = 6294) CBC W/PLT COUNT & AUTO CHFQYQULYTHV4054-22-09 17:52:00 Test Item Value Reference Range Interpretation [...] Received comment: User comments: Slide comments:BASIC METABOLIC [id number] 17:40:00 Test Item Value Reference Range Interpretation [...] FOR DIALYSIS PATIEN TS. RAD, CHEST, 2 [id number] 16:22:00Reason for exam:->pre-op testingShould this be performed at the bedside?->NoFINAL REPORT Chest, PA and lateral. History: Preoperative. Comparison: 08/24/2017. Discussion: Cardiomegaly and thoracic aortic ectasia. The lungs are clear without evidence of consolidation or effusion. There are no acute osseous abnormalities. The soft tissues are unremarkable. IMPRESSION: No acute cardiopulmonary abnormality. Signed: Humberto Weaver MDReport Verified Date/ Time: 02/12/2018 16:22:15 Reading Location: [address] Radiology Reading Room TISSUE [id number] 17:10:00Surgical Pathology Report Case: [id number] Authorizing Provider: Brown Garcia MD Collected: 08/25/2017 1030 Ordering Location: [facility] PERIOPERATIVE Received: 08/25/2017 1434 SERVICES [...] NOT PRESENT Signing Pathologist Direct Phone Line: [phone] signed by Nicolas Diaz MD on 08/28/2017 at 5:10 PMThe focus of invasion on specimen B. Is into the lamina propria of one papillary stalk and consists of on 3-4 tiny cell clusters. A. 29629M. 88677O. 90987P. 43123Giitirsqj neoplasm of urinary bladder A. Bladder tumor [...] to 0.4 cm. Submitted D1. CG/pl PerformedURINE [id number] 16:00:00 Test Item Value Reference Range Interpretation [...] comments: Slide comments:CBC W/PLT COUNT & AUTO CKLOYYHFMRHX8534-08-07 20:06:00 Test Item Value Reference Range Interpretation [...] (test code = 413) RAD, CHEST, 2 [id number] 16:22:00Reason for Exam:->bladder cancer, pre- op testingFINAL [...] MDReport Verified Date/Time: 08/23/2017 16:22:14 Reading Location: [address] Reading Room [facility] METABOLIC [id number] 16:10:00 Test Item Value Reference Range Interpretation [...] APPLICABLE FOR DIALYSIS PATIEN TS. URINALYSIS W/ [id number] 16:01:00 Test Item Value Reference Range Interpretation [...] Rare 1574) SOURCE(BEAKER) (test code = 2795) [id number] 15:55:00 Test Item Value Reference Range Interpretation Comments PARTIAL THROMBOPLASTIN TIME 31.6 seconds 22.5-36.0 (BEAKER) (test code = 760) PROTHROMBIN TIME/[id number] 15:54:00 Test Item Value Reference Range Interpretation Comments PROTIME (BEAKER) (test code = 14.8 seconds 11.7-14.7 H 759) INR (BEAKER) (test code = 370) 1.2 <=5.9 RECOMMENDED COUMADIN/WARFARIN INR THERAPY RANGESSTANDARD DOSE: 2.0 - 3.0 Includes: PROPHYLAXIS forvenous thrombosis, systemic embolization; TREATMENT for venous thrombosis and/or pulmonary embolus.HIGH RISK: Target INR is 2.5-3.5 for patients with mechanical heart valves.OBEVSNKKVC2210-75-79 10:07:0032.2[facility] GyuopfmRSQQPQXWMQ5646-95-87 10:07:008.6[facility] FlnhlxfVJGOORPRXF1196-46-57 10:07:53383Vqphhesu IfgzijnSMLDEPHHGR3735-13-47 10:07:0016.8[facility] UCTWDGFHJL4601-93-79 10:07:0011.3[facility] CmnyxdtHRAKXNSEJK3993-15-88 10:07:00 4.00[facility] SnqyiwlSLZATGCPCU1347-08-60 10:07:0051.5[facility]annHEMATOLOGY 2017-05-29 10:07:0087.5[facility] KuvsvwrIMGFILENIM1399-89-04 10:07:0035.0[facility] JzrsdvjXUAAWSUFRF0464-97-01 10:07:00 Test Item Value Reference Range Interpretation Comments MCH (test code = MCH) 28.2 pg 27.0-31.0 [facility] XxthlkwNXSBHYZDCR3799-84-32 10:07:001.8[facility]annHEMATOLOGY 2017-05-29 10:07:000.1[facility] IhxzruiFYOJXPIFSO2773-86-71 10:07:000.5[facility] RridgjoOCNFPHHGWM6463-30-06 10:07:003.5[facility] EpnclsjMUUYHNTNKJ8551-98-82 10:07:0077.1[facility] SajemfsGZDFUSYIZR6071-31-80 10:07:0018.1[facility] NWNLUJFVNJ4393-59-54 10:07:0039.7[facility] SloarwmTBXZIOAJPE7707-62-84 10:07:00 1.0[facility] VwuhsxhEZTHXVNUTM2829-83-81 10:07:009.3[facility]annHEMATOLOGY 2017-05-29 10:07:000.3[facility] QrhajjzYPJFUEXLKH0904-42-73 10:41:001.0[facility] EskbpsjSQACYYUDEM5729-33-94 10:41:002.0[facility] NizcbbpLYMSYVSNQZ3846-07-96 10:41:00 Test Item Value Reference Range Interpretation Comments Tot Cell Ct (test code = Tot Cell Ct) 100 1 [facility] TmbyiuaYPVMBOXQQN7986-58-29 10:41:002.0[facility]annHEMATOLOGY 2017-05-28 10:41:001+ (05/28/17 5:41 AM)[facility] IxsnstlVOJIYMNPUN9711-56-95 10:41:00Moderate *ABN*(05/28/17 5:41 AM)[facility] JxyhpedXZNFDBUTFY7454-46-85 10:41:001+ *ABN*(05/28/17 5:41 AM)[facility] JggucqlNBMMTDTGBY7695-96-80 10:41:001+ *ABN*(05/28/17 5:41 AM)[facility] DavbpfiMAJKZOWKFD1485-45-98 10:41:0042.8[facility] ToffmntRMGCDUKCHV9009-87-35 10:41:0013.0[facility] KwjqhhdAJXGCBBMRC2460-06-79 10:41:000.5[facility] IimtxyiIXEJBUZRLO9417-94-45 10:41:0082.0[facility] TQCQBXRJHG2882-35-67 10:41:000.0[facility] OzvikyzSYPTKECZXP5441-80-09 10:41:006.6 [facility] NieqfuuSIIYVNNAKY0002-71-50 10:41:001.0[facility]annHEMATOLOGY 2017-05-28 10:41:49614Puodrfzd GuuycuxFWYWTCOYCD2121-15-46 10:41:0016.4[facility] VohjivjMKYYWLTMNH5783-26-75 10:41:00 Test Item Value Reference Range Interpretation Comments MCH (test code = MCH) 27.8 pg 27.0-31.0 [facility] YvudzbwUGLBFHLAEH8350-11-85 10:41:0032.2[facility]annHEMATOLOGY 2017-05-28 10:41:0086.2[facility] EfcexizREXKVPIEDF6066-93-87 10:41:0035.5[facility] IoznnxiDUWTPUKKHJ3939-29-82 10:41:008.2[facility] FxgtexiMWSEIOJDXD5406-93-12 10:41:0011.4[facility] MfqhtadPPTJWWHPAE1502-96-11 10:41:004.13[facility] XEPICIUHKT0403-69-01 10:41:0051.0[facility] HermannCHEM LXRKD2392-82-88 13:34:0068 [facility] HermannCHEM CIORN4313-71-03 13:34:0024[facility] HermannCHEM PANEL 2017-05-27 13:34:52994Wzskvyii HermannCHEM FTRWO8358-21-13 13:34:003.8[facility] HermannCHEM RRMRN6058-84-03 13:34:02439Onznscri HermannCHEM UIYUQ4605-33-15 13:34:001.08[facility] HermannCHEM JJCJK9315-08-79 13:34:0020[facility] HermannCHEM SPPMA8890-90-02 13:34:008.7[facility] HermannCHEM VMPGA7074-04-67 13:34:63028 [facility]annCHEM XZNVB2655-91-57 13:34:0014.8[facility]annHEMATOLOGY 2017-05-27 13:34:001.3[facility] WvnbkvpXDOGOAIKIJ3523-54-23 13:34:000.5[facility] WxmpbfpPADYDEQKQP4183-26-25 13:34:000.3[facility] IbxvjpqCGZHAGPFYO9020-53-94 13:34:000.8[facility] IqxpambOFYRPOKIZP2966-63-65 13:34:0010.9[facility] KWOXFZSEHB9725-00-02 13:34:0044.6[facility] YlxmwauANEPFODVQY8079-08-05 13:34:00 0.3[facility] HhsthawWTPKCQEXFP7692-01-35 13:34:001+ *ABN*(05/27/17 8:34 AM) [facility] WtycbchMEMLZMHYZP0973-85-66 13:34:000.2[facility] HermannHEMATOLOGY 2017-05-27 13:34:0019.3[facility] UowajyhYUNVTRRNNP5725-14-65 13:34:00Normal (05/27/17 8:34 AM)[facility] AjoieabALDKUBSEZH7383-10-97 13:34:0078.6[facility] UtgoqhuKTEDBWRFFG0514-47-66 13:34:81635Excjbqcf QyogbvaGTPIVJEEVT7286-94-34 13:34:008.5[facility] ZofjqlwVYYAPIYWLP8139-18-29 13:34:0033.0[facility] SDUIYTPEUE3710-44-30 13:34:0016.4[facility] BiubgquDXAMQUNSHH4327-26-12 13:34:00 12.4[facility] EcrxndkIYHCAONYJN8021-64-73 13:34:0086.8[facility] HermannHEMATOLOGY 2017-05-27 13:34:0037.4[facility] QqbekmjLSBLZQUKVZ3024-89-49 13:34:00 Test Item Value Reference Range Interpretation Comments MCH (test code = MCH) 28.7 pg 27.0-31.0 [facility] AbfdyyaVGNTQPRVQE5290-41-83 13:34:0056.8[facility] HermannHEMATOLOGY 2017-05-27 13:34:004.31[facility] HermannBLOOD BANK YRHZLBG5655-06-70 06:34:00 Negative (05/27/17 1:34 AM)[facility]annBLOOD BANK TXOOXSL6743-48-17 06:25:00 Product available (05/27/17 1:25 AM)[facility] HermannCHEM WCWVS2788-18-57 04:22:00 49[facility] HermannCHEM GMSYX0415-72-88 04:22:58746Zxycrlpo HermannCHEM PANEL 2017-05-27 04:22:003.5[facility] HermannCHEM CIIBM9569-38-51 04:22:66054Bpfpcxcu HermannCHEM ABHZI7656-06-04 04:22:0025[facility] HermannCHEM UWQHL0232-26-38 04:22:009.1[facility] HermannCHEM GHKUK1895-96-14 04:22:74461Gmxntobf HermannCHEM NTPAW0389-69-55 04:22:0025[facility] HermannCHEM UBZRR2312-74-90 04:22:001.41 [facility] HermannCHEM EPSTG1621-61-61 04:22:0012.5[facility] HermannHEMATOLOGY 2017-05-27 04:22:000.0[facility] XrxiketABJRKAJJOX6808-84-66 04:22:00Normal (05/26/17 11:22 PM)[facility] BhiphxaQWTFMVGLVW7940-68-08 04:22:000.0[facility] LzwcgqnLOFCGKFDVO9440-49-81 04:22:00 Test Item Value Reference Range Interpretation Comments Tot Cell Ct (test code = Tot Cell Ct) 100 1 [facility]LxrbiboOVHNNIZWPQ8721-27-14 04:22:00Normal (05/26/17 11:22 PM)[facility]villeMxvlbubKMXZFAERSX4882-70-69 04:22:00 Test Item Value Reference Range Interpretation Comments INR (test code = INR) 1.13 1 0.85-1.17 [facility] GwsrptiHZOFGXQXIZ9846-99-42 04:22:00 Test Item Value Reference Range Interpretation Comments PT (test code = PT) 14.5 s 12.0-14.7 [facility] ExbfknhZVAECCTWLA5091-11-29 04:22:00 Test Item Value Reference Range Interpretation Comments PTT (test code = PTT) 33.1 s 22.9-35.8 [facility] I7Q1639-46-30 11:52:00 Test Item Value Reference Range Interpretation Comments HEMOGLOBIN A1C (BEAKER) (test code = 6.9 % 4.3-6.1 H 368) PHM1579-07-57 11:12:00 Test Item Value Reference Range Interpretation Comments RPR SCREEN (BEAKER) (test code = Nonreactive Nonreactive 420) CBC W/PLT COUNT & AUTO VFWTCIQCBTWE6994-25-59 10:31:00 Test Item Value Reference Range Interpretation [...] (BEAKER) (test code = Present 1371) VITAMIN [id number] 08:02:00 Test Item Value Reference Range Interpretation Comments VITAMIN B12 (BEAKER) (test code = 346 pg/mL 213-816 774) TSH/FREE T4 IF IYTRKICMV0688-77-74 08:02:00 Test Item Value Reference Range Interpretation Comments THYROID STIMULATING HORMONE 1.37 uIU/mL 0.35-4.94 (BEAKER) (test code = 772) CREATINE KINASE (CK), TOTAL AND [id number] 07:55:00 Test Item Value Reference Range Interpretation Comments CREATINE KINASE TOTAL (BEAKER) 72 U/L 29-200 (test code = 380) CREATINE KINASE-MB (BEAKER) (test 0.5 ng/mL 0.0-6.6 code = 750) CREATINE KINASE-MB INDEX (BEAKER) 0.7 % (test code = 395) CK-MB Reference Range:<6.7 Normal6.7-10.0 Borderline>10.0 AbnormalTROPONIN [id number] 07:55:00 Test Item Value Reference Range Interpretation [...] acidosis, acute neurological disease, and persistent tachyarrhythmia.LIPID CAMZG2001-54-89 07:39:00 Test Item Value Reference Range Interpretation [...] 130-159 High 160-189 Very High >=190BASIC METABOLIC LTXLS1475-00-45 07:39:00 Test Item Value Reference Range Interpretation [...] DIALYSIS PATIEN TS. MR, MRA, BRAIN, WITHOUT OZPLYLJU0799-77-23 04:30:00Reason for exam:->Ischemic Stroke EvaluationFINAL REPORT MR, [...] MDReport Verified Date/Time: 01/29/2017 04:30:36 Reading Location: [address] Consult Reading Room MR, MRA, NECK, WITHOUT IV XMUUJEAT6598-74-16 04:30:00Reason for exam:- >Ischemic Stroke EvaluationFINAL REPORT [...] Verified Date/Time: 01/29/2017 04:30:36 Reading Location: [facility] C013X [facility] Consult Reading Room MR, BRAIN, WITHOUT QOWAONZC7507-20-38 04:30:00Reason for exam:- >Ischemic Stroke EvaluationFINAL REPORT [...] Verified Date/Time: 01/29/2017 04:30:36 Reading Location: [facility] C013X [facility] Consult Reading Room CHEM GHXDO9838-27-07 20:35:0054[facility] HermannCHEM USOMH1717-29-48 20:35:0015.8[facility] HermannCHEM AUIUR7270-92-94 20:35:009.9[facility] HermannCHEM MOSEQ6805-75-32 20:35:0027[facility] HermannCHEM RWHJQ1455-21-48 20:35:89515 [facility]annCHEM UJJPP1205-28-61 20:35:0091[facility] HermannCHEM PANEL 2016-09-19 20:35:0018[facility] HermannCHEM RBILY7115-98-36 20:35:18960Tvzswxwv HermannCHEM FVLDF9119-66-88 20:35:001.31[facility] HermannCHEM MLEKW6546-82-16 20:35:003.8[facility]
[2020-01-21 19:40] VITALS: BMI 27.1
[2020-01-21] MEDS: AMOX/K CLAV 500 MG TAB PO SCH (21:41)
[2020-01-21] MEDS: ROSUVASTATIN 10 MG TAB PO SCH (21:41)
[2020-01-22 06:14] LABS: Absolute Lymphocytes (CBC) 107.3 K/uL (0.7-4.9); Basophils % 0.2 % (0-1.3); Hematocrit 25.9 % (39.6-49.0); Lymphocytes % 91.8 % (15.3-44.8); MPV 8.1 fL (7.6-11.3); RBC Red Blood Cell Count 2.46 M/uL (4.33-5.43)
[2020-01-22 06:26] LABS: Albumin 3.1 g/dL (3.4-5.0); Magnesium 2.3 mg/dL (1.8-2.4); Potassium 4.2 mmol/L (3.5-5.1); Prealbumin 17.4 mg/dL (20-40)
[2020-01-22 06:37] LABS: Platelet Estimate ADEQ
[2020-01-22 06:38] LABS: Blood Morphology Comment NOT SEEN (NOT SEEN); Smudge Cells PRESENT
[2020-01-22] MEDS: DILTIAZEM HCL 120 MG SR CAP PO SCH ×3 (08:00→12:00)
[2020-01-22] MEDS: AMOX/K CLAV 500 MG TAB PO SCH ×2 (09:51→18:52)
[2020-01-22] MEDS: FERROUS SULFATE 325 MG TAB PO SCH (09:52)
[2020-01-22] MEDS: FE SULF/FA/VIT B COMP & C TAB PO SCH (09:52)
[2020-01-22] MEDS: ASPIRIN EC 81 MG TAB PO SCH (09:52)
[2020-01-22] MEDS: CLOPIDOGREL 75 MG TABLET PO SCH (09:53)
[2020-01-22] MEDS: NEBIVOLOL HCL 5 MG TAB PO SCH (09:54)
[2020-01-22] MEDS ORDERED: GLUCAGON 1 MG/VIAL IM PRN (17:02)
[2020-01-22] MEDS ORDERED: D50W 25 GM/50 ML SYRINGE IV PRN (17:02)
--- NOTE | 2020-01-22 17:40 | R.HP ---
HISTORY AND PHYSICAL FACILITY: [facility] ENCOUNTER DATE AND TIME: 01/22/2020 17:35 (ADVANCE SCOUT) MR#: [id number] NAME IDANIA MARIN ADDRESS: [address] [place] [address]: [place] ZIP [address] PHONE: DATE OF : 1945 AGE: 75 SSN# [id number] GENDER: Male DEXTERITY Right-handed MARITAL STATUS RACE Unknown race PRE-HOSPITAL LIVING SETTING 01 - Home (private home/apt. board/care, assisted living, prison, transitional living) PRE-HOSPITAL LIVING WITH Family/Relatives ENCOUNTER PHYSICIAN: Dr. Jose Healy M.D. REFERRING DOCTOR: DR LEES DATE OF ADMISSION: 01/21/2020 18:16 (ADVANCE SCOUT) REFERRING FACILITY [facility] HOME TYPE AND DETAILS: Type of home: single family house # of levels in the residence: 2 # of steps within the residence:10 # of steps to enter the residence: 2 ONSET DATE: 01/16/2020 PRIMARY DIAGNOSIS-RELATED SURGERIES: No surgeries related to the primary diagnosis were performed. HISTORY OF PRESENT ILLNESS (HPI): Pt. is a 75 yo Right-handed male of unknown race. On 01/16/2020 he was admitted to [facility] with diagnosis DEBILITY. AMS, UTI,ANEMI A. His impairment category is Debility 16 - Debility (16). Pre-morbidly, Pt. was independent/mod-I in Safety Awareness, Balance, Transfers Control, and Enduranc e; and he had good Locomotion, Self-Care, Sphincter Control, and Transfers Control. Currently, he has deficits of Locomotion, Balance, Sphincter Control, Transfers Control, and Social C ognition. Pt. is now referred to [facility] for acute in-patient rehabilitation in order to maximize patient's functional independence in activities of daily living, strength, ROM, and mobi lity. Patient has realistic goal of being discharged at assistance level 7-Ind to reside at Home with Fami ly/Relatives. Idania Marin is a 75 -year- old female that at home independently with her . They live in a 2 story home here [facility]. She has had multiple medical problems including hypertension, CVA, CLL, history of bladder cancer, A fib on chronic anti coagulation therapy. The patient reported feeling tired. Some confusion but denies any significant chest pain, shortness of breath. Patient went to ER for evaluation. Urinary complaints noted. Antibiotic therapy was started. Patient has received transfusion. The patient would most definitely benefit from acute inpatient rehab and has become severely debilitated and unable to live at her prior level of activity at home getting her stronger to be back living at home independently is our goal. It is reasonable and necessary for the patient to come to acute inpatient rehab for approximately 7-10 days in order to return to her prior level of care. She is now being transferred to [facility] Inpatient rehabilitation and is medically stable with relatively stable labs. She is now medically stable but in need of 24 hour nursing, doctor supervision and The patient is reasonably expected to participate in 3 hours of therapy a day/15 hours per week and receive care with intensive interdisciplinary approach. COVID-19 screening performed; spoke with patient via phone. Patient denies new onset of fever, cough, difficulty breathing, sore throat, body aches and non-allergy nasal congestion in the past 24 hours. Patient denies travel outside of [place] in the past 14 days. Patient denies any contact with someone who has a confirmed diagnosis of or is under investigation for COVID-19 in the past 14 days. Patient has been tested negative for COVID- 19. MEDICATION ALLERGIES: No Known Drug Allergies (NKDA) ENVIRONMENTAL ALLERGIES: - Substance Allergies None Known - Other Allergies None Known PAST MEDICAL HISTORY: HYPERTENSION COPD SVT DIABETES MELLITUS TYPE 2 AAA HISTORY OF BLADDER CANCER CVA AFIB CLL PAST SURGICAL HISTORY: REMOVAL OF THORACIC HEMATOMA BLADDER RESECTION 2X LAMINECTOMY SOCIAL HISTORY: - Home Living Family/Relatives REVIEW OF SYSTEMS: - Gen No Chills No Fatigue No Fever - Eyes No Double Vision No itchiness - ENMT No Difficulty Swallowing - CVS No Chest Discomfort No Chest Pain No Fatigue No Weight Gain - Resp No Cough No Shortness of Breath - GI Continent No Abdominal Pain No Constipation No Diarrhea - Continent No Kidney Pain No Painful Urination No Urinary Urgency - MSK No Joint Pain No Muscle Cramps No Stiffness - Skin No Itching No Rash No Suspicious Lesions - Neuro No Coordination Difficulty No Difficulty with Concentration No Memory Loss No Seizures No Weakness - Psych No Anxiety No Depression No HIV Exposure No Persistent Infections No Seasonal Allergies - Endo No Cold/Heat Intolerance No Excessive Hunger No Excessive Thirst No Excessive Urination PHYSICAL EXAM - Gen Alert and awake Lying in bed No apparent distress Oriented to: person, time, and place - Skin No breakdown Normacephalic - Eyes No abnormalities - ENMT No abnormalities - Neck No abnormalities - CVS RRR - Chest No abnormalities - Abd Soft - GI Soft Deferred - No abnormalities - Ext Mild bilateral lower extremity edema. - MSK 4+/5 weakness in both lower extremities. - Neuro No focal deficits - Psych No abnormalities VITAL SIGNS Temperature: 97.8 F SBP/DBP: 133/69 Pulse: 73 Resp: 16 NURSING: - Shower allowing shower ACTIVITIES OOB only with supervision QI SCORES: - Self-Care A. Eating 04-Supervision or touching assistance B. Oral hygiene 03-Partial/moderate assistance C. Toileting hygiene 03-Partial/moderate assistance E. Shower/bathe self 03-Partial/moderate assistance F. Upper body dressing 03-Partial/moderate assistance G. Lower body dressing 03-Partial/moderate assistance H. Putting on/taking off footwear 88-Not attempted due to medical condition or safety concerns - Mobility A. Roll left and right 03-Partial/moderate assistance B. Sit to lying 03-Partial/moderate assistance C. Lying to sitting on side of bed 03-Partial/moderate assistance D. Sit to stand 03-Partial/moderate assistance E. Chair/emw-eo-dnlbr transfer 03-Partial/moderate assistance F. Toilet transfer 03-Partial/moderate assistance G. Car transfer 88-Not attempted due to medical condition or safety concerns I. Walk 10 feet 88-Not attempted due to medical condition or safety concerns J. Walk 50 feet with two turns 88-Not attempted due to medical condition or safety concerns K. Walk 150 feet 88-Not attempted due to medical condition or safety concerns L. Walking 10 feet on uneven surfaces 88-Not attempted due to medical condition or safety concerns M. 1 step (curb) 88-Not attempted due to medical condition or safety concerns N. 4 steps 88-Not attempted due to medical condition or safety concerns O. 12 steps 88-Not attempted due to medical condition or safety concerns P. Picking up object 88-Not attempted due to medical condition or safety concerns R. Wheel 50 feet with two turns 88-Not attempted due to medical condition or safety concerns S. Wheel 150 feet 88-Not attempted due to medical condition or safety concerns - Bladder and Bowel Bladder continence Bowel continence - Endurance Fair - Balance Fair - Safety Awareness Fair CURRENT FUNC. DEFICITS: Self-Care, Mobility, Endurance, Balance, and Safety Awareness MEDICATIONS: - Other See attached MAR (Medication Administration Record) ASSESSMENT: Pt. is a 75 yo Right-handed male of unknown race.On 01/16/2020 he was admitted to [facility] with diagnosis DEBILITY. AMS, UTI,ANEMIA.His impairment category is Debility 16 - Debility (16).Pre-morbidly, Pt. was independent/mod-I in Safety Awareness, Balance, Transfers Control, and En durance; and he had good Locomotion, Self-Care, Sphincter Control, and Transfers Control.Currently, h e has deficits of Locomotion, Balance, Sphincter Control, Transfers Control, and Social Cognition.Pt. is now referred to [facility] for acute in-patient rehabilitation in order to maximize patient's functional independence in activities of daily living, strength, ROM, and mobilit y.- Rehab Goal Patient has realistic goal of being discharged at assistance level 7-Ind to reside at Home with Fami ly/Relatives. Idania Marin is a 75 -year- old female that at home independently with her . [facility] She has had multiple medical problems including hypertension, CVA, CLL, history of bladder cancer, A fib on chronic anti coagulation therapy. The patient reported feeling tired. Some confusion but denies any significant chest pain, shortness of breath. Patient went to ER for evaluation. Urinary complaints noted. Antibiotic therapy was started. Patient has received transfusion. The patient would most definitely benefit from acute inpatient rehab and has become severely debilitated and unable to live at her prior level of activity at home getting her stronger to be back living at home independently is our goal. It is reasonable and necessary for the patient to come to acute inpatient rehab for approximately 7-10 days in order to return to her prior level of care. She is now being transferred to [facility] Inpatient rehabilitation and is medically stable with relatively stable labs. She is now medically stable but in need of 24 hour nursing, doctor supervision and The patient is reasonably expected to participate in 3 hours of therapy a day/15 hours per week and receive care with intensive interdisciplinary approach. COVID-19 screening performed; spoke with patient via phone. Patient denies new onset of fever, cough, difficulty breathing, sore throat, body aches and non-allergy nasal congestion in the past 24 hours. Patient denies travel outside of [place] in the past 14 days. Patient denies any contact with someone who has a confirmed diagnosis of or is under investigation for COVID-19 in the past 14 days. Patient has been tested negative for COVID- 19.REHAB PLAN: - Physical Therapy Gait dysfunction - to improve, our physical therapists will perform initial evaluation of pt's status upon admission and devise an individualized program for Gait Training, and Wheel Chair mobility Inability to transfer - to improve, our physical therapists will perform initial evaluation of pt's s tatus upon admission and devise an individualized program for Bed mobility Need for home safety evaluation - to improve, our physical therapists will perform initial evaluation of pt's status upon admission and devise an individualized program for Home Evaluation Need in caregiver upon discharge - to improve, our physical therapists will perform initial evaluatio n of pt's status upon admission and devise an individualized program for Caregiver Training Edema - to improve, our physical therapists will perform initial evaluation of pt's status upon admi ssion and devise an individualized program for Elevation Training, and Lymphedema Therapy New precaution - to improve, our physical therapists will perform initial evaluation of pt's status u sea admission and devise an individualized program for Patient precaution education Poor balance - to improve, our physical therapists will perform initial evaluation of pt's status upo n admission and devise an individualized program for Balance Training Weakness - to improve, our physical therapists will perform initial evaluation of pt's status upon ad mission and devise an individualized program for Aquatic Therapy, Neuromuscular Reeducation, and Stre ngthening Achieving independence - to improve, our physical therapists will perform initial evaluation of pt's status upon admission and devise an individualized program for Community Reintegration Activities - Occupational Therapy Cognitive deficits - to improve, our occupation therapists will perform initial evaluation of pt's st atus upon admission and devise an individualized program for Cognition - orientation Need for intensive care medicine specialist - to improve, our occupation therapists will perform initial evaluation of pt's s tatus upon admission and devise an individualized program for Caregiver Training Weakness - to improve, our occupation therapists will perform initial evaluation of pt's status upon admission and devise an individualized program for Aquatic Therapy, Balance, Endurance, UE ROM, and U E strengthening MEDICAL PLAN: - Diet Type Start Regular - Diet - Liquid Texture Start Regular - Tube Feed Start N/A - Other See attached MAR (Medication Administration Record) - Diet - Solid Texture Regular - Shower shower DISCHARGE PLAN: - Estimated Length of Stay (days) 13. - Consensus on plan Discharge plan has been discussed with primary caregiver. Patient/Family is in agreement with the emre n. Primary caregiver is in agreement with the plan. - Patient/Family Goals Return home independently. - Planned Living Setting Upon Discharge Home, to live with Family/Relatives. Transitional Living. SIGNATURE PANEL: (ADVANCE SCOUT)
--- NOTE | 2020-01-22 17:42 | PAPE ---
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 Jose Healy M.D. ADMISSION DIAGNOSIS: DEBILITY. AMS, UTI,ANEMIA ONSET DATE 01/16/2020 POST-ADMISSION FUNCTIONAL/MEDICAL STATUS: - Bladder Same accident frequency: Ind - No accidents in the past 7 days - Bowel Same accident frequency: Ind - No accidents in the past 7 days - Walking Same score based on distance walked: 0(N/A) Same score based on distance walked: 1(<=50ft) - Wheelchair Same score based on distance traveled: 0(N/A) STATUS CHANGE EVALUATION: No change in Functional or Medical Status is identified compared with Pre-Admission screening. PATIENT NEEDS CLOSE MEDICAL SUPERVISION BY A REHABILITATION PHYSICIAN FOR: Coordination of Treatment Team PATIENT REQUIRES 24X7 REHAB NURSING FOR MEDICAL AND FUNCTIONAL MGT. OF THE FOLLOWING DEFICITS: Disease Management Medication Management Patient/Family Education Providing Safe Environment PATIENT REQUIRES INTENSIVE, COORDINATED INTERDISCIPLINARY APPROACH TO REHAB: Arranging Home Equipment/Services Discharge Planning Family Intervention/Training Cat Sitter/Case Management LIST OF IDENTIFIED AND POTENTIAL PROBLEMS: Alteration in leisure activities Bladder, Incontinence Bowel, Incontinence Infection, Actual or Potential Mobility Impaired Pain, Alteration in Comfort Self Care Deficit Skin Integrity, Actual or Potential Urinary Tract Infection (UTI), Actual or Potential PATIENT COULD BE AT RISK FOR COMPLICATIONS FROM ADVERSE MEDICAL CONDITIONS DUE TO HIS/HER COMORBIDITI ES AND THE RIGORS OF THE INTENSIVE REHABILLITATION PROGRAM. METHODS OR INTERVENTIONS TO AVOID COMPLIC ATIONS INCLUDE: - Infection Clinical staff to assess and manage the signs and symptoms of infection including fever, redness, war mth, etc. - Urinary Tract Infection - Falls Patient will be evaluated for Fall Precautions and will be placed on Fall Precautions as indicated pe r protocol. - Skin Breakdown Nursing will assess skin daily using assessment tool and will place on Skin Breakdown Precautions as indicated per protocol. - Pain Clinical staff may employ non-medication methods such as massage, distraction, decrease stimulus, etc . as needed. Clinical staff will assess patient's pain level every shift per protocol to assess and e nsure pain management effectiveness. Medications will be given and the pain level re-assessed. PRELIMINARY PLAN OF CARE: - Physical Therapy Patient needs Physical Therapy for a daily minimum of 1.5 hours at least 5 out of 7 days, to improve: Mobility, Strengthening, Transfers, Stretching, ROM, Endurance, Ability to manage stairs, Gait, and Balance. - Speech Therapy Patient needs Speech Therapy for a daily minimum of 0.5 hours at least 5 out of 7 days, to improve: S wallowing, Cognition, Language Skills, and Compensatory Strategies. - Rehabilitation Nursing Patient requires 24x7 Rehabilitation Nursing for: Pain Issues, Identifying and preventing risk factor s, Monitoring and reporting current medical conditions, Assisting with ambulation and transfer, Jose ting with all ADL-s, Teaching patients about disease process and medications, Family teaching, Provid ing safe environment, Bowel and Bladder Issues, Skin Integrity, and Medication Management. Patient needs Cat Sitter and/or Case Management for: Discharge Planning, Arranging Home Equipmen t or Services, and Family Interventions. - Dietary and Nutrition Services Patient needs Dietary and Nutrition Services for: Adequate Nutrition, Nutritional Supplements, and Nu tritional Education. - Occupational Therapy Patient needs Occupational Therapy for a daily minimum of 1.5 hours at least 5 out of 7 days, to impr ove Activities of Daily Living, including: Eating, Grooming, Bathing, Dressing, Toileting, Toilet Tra nsfers, Community Reintegration, Higher functional activities, Adaptive Equipment, Splinting, Househo ld Tasks, and Other activities as determined. QI SCORES: - Self-Care A. Eating 04-Supervision or touching assistance B. Oral hygiene 03-Partial/moderate assistance C. Toileting hygiene 03-Partial/moderate assistance E. Shower/bathe self 03-Partial/moderate assistance F. Upper body dressing 03-Partial/moderate assistance G. Lower body dressing 03-Partial/moderate assistance H. Putting on/taking off footwear 88-Not attempted due to medical condition or safety concerns - Mobility A. Roll left and right 03-Partial/moderate assistance B. Sit to lying 03-Partial/moderate assistance C. Lying to sitting on side of bed 03-Partial/moderate assistance D. Sit to stand 03-Partial/moderate assistance E. Chair/oej-zj-aibvw transfer 03-Partial/moderate assistance F. Toilet transfer 03-Partial/moderate assistance G. Car transfer 88-Not attempted due to medical condition or safety concerns I. Walk 10 feet 88-Not attempted due to medical condition or safety concerns J. Walk 50 feet with two turns 88-Not attempted due to medical condition or safety concerns K. Walk 150 feet 88-Not attempted due to medical condition or safety concerns L. Walking 10 feet on uneven surfaces 88-Not attempted due to medical condition or safety concerns M. 1 step (curb) 88-Not attempted due to medical condition or safety concerns N. 4 steps 88-Not attempted due to medical condition or safety concerns O. 12 steps 88-Not attempted due to medical condition or safety concerns P. Picking up object 88-Not attempted due to medical condition or safety concerns R. Wheel 50 feet with two turns 88-Not attempted due to medical condition or safety concerns S. Wheel 150 feet 88-Not attempted due to medical condition or safety concerns - Bladder and Bowel Bladder continence Bowel continence - Endurance Fair - Balance Fair - Safety Awareness Fair POTENTIAL FUNCTIONAL GOALS FOR PATIENT TO ACHIEVE BY DISCHARGE: - Safety Precaution Patient will remain free from falls or injury at time of discharge. - Bed Mobility Patient will perform bed mobility at 4-Candace level of assistance. - Transfers Patient will complete transfers from bed to chair at 4-Candace level of assistance. - Mobility Patient will ambulate 150 ft with 4-Candace level of assistance with RW. PATIENT REHAB POTENTIAL Braeden TERRY is able and expected to receive 3 hours of individualized therapy daily on at least 5 of e very 7 days Braeden TERRY's prognosis for significant practical improvement within a reasonable period of time appea rs Good Expected level of measurable improvement will be of a practical value to Braeden TERRY's functional capa city or adaptations to impairments Has a viable Discharge Plan Medically appropriate; condition is sufficiently stable to participate in intensive rehab program DISCHARGE PLAN: - Estimated Length of Stay (days) 13. - Consensus on plan Discharge plan has been discussed with primary caregiver. Patient/Family is in agreement with the emre n. Primary caregiver is in agreement with the plan. - Patient/Family Goals Return home independently. - Planned Living Setting Upon Discharge Home, to live with Family/Relatives. Transitional Living. CONCLUSION ON REHABILITATION NECESSITY: I have evaluated patient's pre-admission functional status and, comparing it to the patient's post-ad mission functional status now, I conclude that the pre-admission assessment was accurate. Patient's c ondition on admission supports the medical necessity of admission to [facility]. It is safe to proceed with patient's therapy program. 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
[2020-01-22] MEDS: ROSUVASTATIN 10 MG TAB PO SCH (18:52)
[2020-01-22] MEDS: DOCUSATE NA/SENNA CONC 1 TAB PO PRN (19:33)
[2020-01-22] MEDS: INSULIN -REGULAR HUMAN 50 UNIT/0.5 ML ML SQ SCH (19:34)
[2020-01-23 06:25] LABS: Absolute Lymphocytes (CBC) 117.5 K/uL (0.7-4.9); Basophils % 0.1 % (0-1.3); Hematocrit 27.2 % (39.6-49.0); MPV 8.4 fL (7.6-11.3); RBC Red Blood Cell Count 2.55 M/uL (4.33-5.43)
[2020-01-23 06:34] LABS: Albumin 3.3 g/dL (3.4-5.0); Magnesium 2.4 mg/dL (1.8-2.4); Potassium 4.2 mmol/L (3.5-5.1); Prealbumin 15.6 mg/dL (20-40)
[2020-01-23] MEDS: INSULIN -REGULAR HUMAN 50 UNIT/0.5 ML ML SQ SCH ×4 (07:30→20:07)
[2020-01-23] MEDS: NEBIVOLOL HCL 5 MG TAB PO SCH (08:58)
[2020-01-23] MEDS: AMOX/K CLAV 500 MG TAB PO SCH ×2 (09:02→19:29)
[2020-01-23] MEDS: FERROUS SULFATE 325 MG TAB PO SCH (09:03)
[2020-01-23] MEDS: ASPIRIN EC 81 MG TAB PO SCH (09:03)
[2020-01-23] MEDS: CLOPIDOGREL 75 MG TABLET PO SCH (09:03)
[2020-01-23] MEDS: FE SULF/FA/VIT B COMP & C TAB PO SCH (09:04)
[2020-01-23 09:18] LABS: Blood Morphology Comment NOTED (NOT SEEN); Macrocytosis 1+; Platelet Estimate ADEQ
[2020-01-23] MEDS: HEPARIN 5000 UNIT/ML 1 ML VIAL SQ SCH (09:46)
[2020-01-23] MEDS: DILTIAZEM HCL 120 MG SR CAP PO SCH (11:53)
--- NOTE | 2020-01-23 17:24 | R.PN ---
PROGRESS NOTES ENCOUNTER DATE AND TIME: 01/23/2020 17:15 (RISK OFFICER) NAME IDANIA TERRY DATE OF : 1945 DATE OF ADMISSION: 01/21/2020 18:16 (RISK OFFICER) DEBILITY. AMS, UTI,ANEMIACHIEF COMPLAINT: Diffuse weakness, chronic anemia and CLL SUBJECTIVE: Pt denied any Shortness of Breath. Pt denied any depression. Due to CLL his WBC is elevated to 129.2. Will increase hydration. Hgb increased from 7.9 to 8.3 overn ight. Ambulated 85' with contact guard assistance using a rolling walker. Self-propelled wheelchair 250' wi th standby assistance. Ambulated 350' with contact guard assistance using a rolling walker. VITAL SIGNS Temperature: 97.6 F SBP/DBP: 134/67 Pulse: 82 Resp: 16 MEDICATION ALLERGIES: No Known Drug Allergies (NKDA) ENVIRONMENTAL ALLERGIES: - Substance Allergies None Known - Other Allergies None Known NURSING: - Shower allowing shower ACTIVITIES OOB only with supervision THERAPIES: - Dietary and Nutrition Adequate Nutrition. Nutritional Education. Nutritional Supplements. PHYSICAL EXAM - Gen Alert and awake Lying in bed No apparent distress Oriented to: person, time, and place - Skin No breakdown Normacephalic - Eyes No abnormalities - ENMT No abnormalities - Neck No abnormalities - CVS RRR - Chest No abnormalities - Abd Soft - GI Soft Deferred - No abnormalities - Ext Mild bilateral lower extremity edema. - MSK 4+/5 weakness in both lower extremities. - Neuro No focal deficits - Psych No abnormalities ASSESSMENT: Pt. is a 75 yo Right-handed male of unknown race.On 01/16/2020 he was admitted to [facility] with diagnosis DEBILITY. AMS, UTI,ANEMIA.His impairment category is Debility 16 - Debility (16).Pre-morbidly, Pt. was independent/mod-I in Safety Awareness, Balance, Transfers Control, and En durance; and he had good Locomotion, Self-Care, Sphincter Control, and Transfers Control.Currently, ang delgado has deficits of Locomotion, Balance, Sphincter Control, Transfers Control, and Social Cognition.Pt. is now referred to [facility] for acute in-patient rehabilitation in order to maximize patient's functional independence in activities of daily living, strength, ROM, and mobilit y.- Rehab Goal Patient has realistic goal of being discharged at assistance level 7-Ind to reside at Home with Fami ly/Relatives. MDM/PLAN: - Physical Therapy Gait dysfunction - to improve, our physical therapists will perform initial evaluation of pt's statu s upon admission and devise an individualized program for Gait Training, and Wheel Chair mobility Inability to transfer - to improve, our physical therapists will perform initial evaluation of pt's status upon admission and devise an individualized program for Bed mobility Need for home safety evaluation - to improve, our physical therapists will perform initial evaluatio n of pt's status upon admission and devise an individualized program for Home Evaluation Need in caregiver upon discharge - to improve, our physical therapists will perform initial evaluati on of pt's status upon admission and devise an individualized program for Caregiver Training Edema - to improve, our physical therapists will perform initial evaluation of pt's status upon admis samantha and devise an individualized program for Elevation Training, and Lymphedema Therapy New precaution - to improve, our physical therapists will perform initial evaluation of pt's status upon admission and devise an individualized program for Patient precaution education Poor balance - to improve, our physical therapists will perform initial evaluation of pt's status up on admission and devise an individualized program for Balance Training Weakness - to improve, our physical therapists will perform initial evaluation of pt's status upon a dmission and devise an individualized program for Aquatic Therapy, Neuromuscular Reeducation, and Str engthening Achieving independence - to improve, our physical therapists will perform initial evaluation of pt's status upon admission and devise an individualized program for Community Reintegration Activities - Occupational Therapy Cognitive deficits - to improve, our occupation therapists will perform initial evaluation of pt's s tatus upon admission and devise an individualized program for Cognition - orientation Need for certified caregiver - to improve, our occupation therapists will perform initial evaluation of pt's status upon admission and devise an individualized program for Caregiver Training Weakness - to improve, our occupation therapists will perform initial evaluation of pt's status upon admission and devise an individualized program for Aquatic Therapy, Balance, Endurance, UE ROM, and UE strengthening - Other See attached MAR (Medication Administration Record) - Diet Type Continue Regular - Diet - Liquid Texture Continue Regular - Tube Feed Continue N/A - Diet - Solid Texture Continue Regular - Shower allowing shower FUNCTIONAL STATUS: UPDATED AT WEEKLY TEAM CONFERENCE - Bladder Same accident frequency: 7-Ind - No accidents in the past 7 days - Bowel Same accident frequency: 7-Ind - No accidents in the past 7 days - Walking Same score based on distance walked: 0(N/A) Same score based on distance walked: 1(<=50ft) - Wheelchair Same score based on distance traveled: 0(N/A) FUNCTIONAL STATUS: - Self-Care A. Eating Beatrice B. Grooming sup C. Bathing Candace D. Dressing - Upper Candace E. Dressing - Lower Candace F. Toileting Candace - Sphincter Control G. Bladder control Beatrice H. Bowel control Beatrice - Transfers Control I. Bed/Chair/Wheelchair Candace J. Toilet Candace K. Tub/Shower Candace - Locomotion L. Walk/Wheelchair (B) Candace M. Stairs ADNO - Communication N. Comprehension (B) sup O. Expression (B) sup - Social Cognition P. Social Interaction sup Q. Problem Solving Candace R. Memory sup - Endurance Fair - Balance Fair - Safety Awareness Fair QI SCORES: - Self-Care A. Eating 04-Supervision or touching assistance B. Oral hygiene 03-Partial/moderate assistance C. Toileting hygiene 03-Partial/moderate assistance E. Shower/bathe self 03-Partial/moderate assistance F. Upper body dressing 03-Partial/moderate assistance G. Lower body dressing 03-Partial/moderate assistance H. Putting on/taking off footwear 88-Not attempted due to medical condition or safety concerns - Mobility A. Roll left and right 03-Partial/moderate assistance B. Sit to lying 03-Partial/moderate assistance C. Lying to sitting on side of bed 03-Partial/moderate assistance D. Sit to stand 03-Partial/moderate assistance E. Chair/fda-rr-kuzre transfer 03-Partial/moderate assistance F. Toilet transfer 03-Partial/moderate assistance G. Car transfer 88-Not attempted due to medical condition or safety concerns I. Walk 10 feet 88-Not attempted due to medical condition or safety concerns J. Walk 50 feet with two turns 88-Not attempted due to medical condition or safety concerns K. Walk 150 feet 88-Not attempted due to medical condition or safety concerns L. Walking 10 feet on uneven surfaces 88-Not attempted due to medical condition or safety concerns M. 1 step (curb) 88-Not attempted due to medical condition or safety concerns N. 4 steps 88-Not attempted due to medical condition or safety concerns O. 12 steps 88-Not attempted due to medical condition or safety concerns P. Picking up object 88-Not attempted due to medical condition or safety concerns R. Wheel 50 feet with two turns 88-Not attempted due to medical condition or safety concerns S. Wheel 150 feet 88-Not attempted due to medical condition or safety concerns - Bladder and Bowel Bladder continence Bowel continence - Endurance Fair - Balance Fair - Safety Awareness Fair CURRENT [facility]. DEFICITS: Self-Care, Mobility, Endurance, Balance, and Safety Awareness SIGNATURE PANEL: (RISK OFFICER)
[2020-01-23] MEDS: ROSUVASTATIN 10 MG TAB PO SCH (19:29)
[2020-01-24] MEDS: HEPARIN 5000 UNIT/ML 1 ML VIAL SQ SCH (06:17)
[2020-01-24] MEDS: INSULIN -REGULAR HUMAN 50 UNIT/0.5 ML ML SQ SCH ×4 (07:30→21:00)
[2020-01-24] MEDS: AMOX/K CLAV 500 MG TAB PO SCH ×2 (07:46→21:00)
[2020-01-24] MEDS: FE SULF/FA/VIT B COMP & C TAB PO SCH (07:46)
[2020-01-24] MEDS: FERROUS SULFATE 325 MG TAB PO SCH (07:46)
[2020-01-24] MEDS: NEBIVOLOL HCL 5 MG TAB PO SCH (07:47)
[2020-01-24] MEDS: CLOPIDOGREL 75 MG TABLET PO SCH (07:47)
[2020-01-24] MEDS: ASPIRIN EC 81 MG TAB PO SCH (07:48)
--- NOTE | 2020-01-24 09:38 | P.RH.PN ---
Estimated Length of Stay: 15 Expected Discharge Date: 02/04/20 Discharge Disposition Plan: Home Family Support: Yes Halfway Goal: Mobility, Transfers, Self Care Vital Signs: Last Vital Signs Temp 97.5 F 01/24/20 07:13 Pulse 62 01/24/20 07:47 Resp 16 01/24/20 07:13 BP 143/68 H 01/24/20 07:47 Pulse Ox 96 01/24/20 07:13 Laboratory: Laboratory Last Values WBC 129.2 K/uL (4.3-10.9) H* 01/23/20 06:03 RBC 2.55 M/uL (4.33-5.43) L 01/23/20 06:03 Hgb 8.3 g/dL (13.6-17.9) L 01/23/20 06:03 Hct 27.2 % (39.6-49.0) L 01/23/20 06:03 MCV 106.7 fL (80-100) H 01/23/20 06:03 MCH 32.6 pg (27.0-35.0) 01/23/20 06:03 MCHC 30.6 g/dL (32.0-36.0) L 01/23/20 06:03 RDW 19.0 % (12.1-15.2) H 01/23/20 06:03 Plt Count 337 K/uL (152-406) 01/23/20 06:03 MPV 8.4 fL (7.6-11.3) 01/23/20 06:03 Neutrophils % 5.0 % (41.7-73.7) L 01/23/20 06:03 Lymphocytes % 91.0 % (15.3-44.8) H 01/23/20 06:03 Monocytes % 3.5 % (3.3-12.3) 01/23/20 06:03 Eosinophils % 0.4 % (0-4.4) 01/23/20 06:03 Basophils % 0.1 % (0-1.3) 01/23/20 06:03 Absolute Neutrophils 6.5 K/uL (1.8-8.0) 01/23/20 06:03 Segmented Neutrophils 93 % (40-80) H 01/23/20 06:03 Absolute Lymphocytes 117.5 K/uL (0.7-4.9) H 01/23/20 06:03 Lymphocytes 5 % (15-42) L 01/23/20 06:03 Monocytes 1 % (0-10) 01/23/20 06:03 Absolute Monocytes 4.5 K/uL (0.1-1.3) H 01/23/20 06:03 Eosinophils 1 % (0-3) 01/23/20 06:03 Absolute Eosinophils 0.5 K/uL (0-0.5) 01/23/20 06:03 Absolute Basophils 0.2 K/uL (0-0.5) 01/23/20 06:03 Smudge Cells Present 01/22/20 05:57 Platelet Estimate Adeq 01/23/20 06:03 Macrocytosis 1+ 01/23/20 06:03 Morphology Comment Noted (NOT SEEN) 01/23/20 06:03 Sodium 145 mmol/L (136-145) 01/23/20 06:03 Potassium 4.2 mmol/L (3.5-5.1) 01/23/20 06:03 Chloride 115 mmol/L (98-107) H 01/23/20 06:03 Carbon Dioxide 22 mmol/L (21-32) 01/23/20 06:03 BUN 26 mg/dL (7-18) H 01/23/20 06:03 Creatinine 1.52 mg/dL (0.55-1.3) H 01/23/20 06:03 Estimated GFR 45 mL/min (=/>90) L 01/23/20 06:03 Glucose 166 mg/dL (74-106) H 01/23/20 06:03 POC Glucose 127 mg/dL (65-120) H 01/24/20 07:28 Calcium 8.7 mg/dL (8.5-10.1) 01/23/20 06:03 Magnesium 2.4 mg/dL (1.8-2.4) 01/23/20 06:03 Albumin 3.3 g/dL (3.4-5.0) L 01/23/20 06:03 Prealbumin 15.6 mg/dL (20-40) L 01/23/20 06:03 Weight: 178 lb 4.8 oz Wound Present: No Closed Surgical Incision Present: No Negative Pressure Wound Therapy Present: No Physician Update: He has CLL with elevated WBC of 129. His is at contact guard with transfers. 250' with wheelchair. He is at max assistance with functional transfers. Functional Improvement: Patient fatigues very quickly and presents w/ very slow jasmeet w/ WC mobs. Patient currently CG w/ gait tx. and transfers. 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 Please see the Rehabilitation Signature page for all necessary signatures.
[2020-01-24] MEDS: DILTIAZEM HCL 120 MG SR CAP PO SCH (12:47)
[2020-01-24] MEDS: ROSUVASTATIN 10 MG TAB PO SCH (21:09)
[2020-01-25 06:52] LABS: Ferritin 402.5 ng/mL (26-388)
[2020-01-25] MEDS: INSULIN -REGULAR HUMAN 50 UNIT/0.5 ML ML SQ SCH ×4 (07:30→19:37)
[2020-01-25] MEDS: AMOX/K CLAV 500 MG TAB PO SCH ×2 (08:52→19:22)
[2020-01-25] MEDS: ASPIRIN EC 81 MG TAB PO SCH (08:52)
[2020-01-25] MEDS: FERROUS SULFATE 325 MG TAB PO SCH (08:53)
[2020-01-25] MEDS: FE SULF/FA/VIT B COMP & C TAB PO SCH (08:53)
[2020-01-25] MEDS: NEBIVOLOL HCL 5 MG TAB PO SCH (08:53)
[2020-01-25] MEDS: CLOPIDOGREL 75 MG TABLET PO SCH (08:53)
[2020-01-25] MEDS: HEPARIN 5000 UNIT/ML 1 ML VIAL SQ SCH (09:00)
[2020-01-25] MEDS: DILTIAZEM HCL 120 MG SR CAP PO SCH ×2 (12:00→15:16)
[2020-01-25] MEDS: ROSUVASTATIN 10 MG TAB PO SCH (19:23)
--- NOTE | 2020-01-25 20:02 | RAD REPORT ---
EXAM DESCRIPTION: RAD - Chest Single View - 01/25/2020 7:23 pm CLINICAL HISTORY: increase coughing COMPARISON: Portable January 15 TECHNIQUE: AP portable chest image was obtained 01/25/2020 7:23 pm . FINDINGS: No peripheral mass or consolidation. A few small patchy airspace opacities are present in the lower left lung field and upper right lung field. Heart and vasculature are normal. No measurable pleural effusion and no pneumothorax. No acute bony abnormality seen. No acute aortic findings suspe cted. IMPRESSION: Minimal patchy airspace opacities in the lung martin suspicious for mild or early pneumo kvng.
[2020-01-26] MEDS: NEBIVOLOL HCL 5 MG TAB PO SCH (05:06)
[2020-01-26] MEDS: INSULIN -REGULAR HUMAN 50 UNIT/0.5 ML ML SQ SCH ×4 (07:30→21:07)
[2020-01-26] MEDS: HEPARIN 5000 UNIT/ML 1 ML VIAL SQ SCH (07:30)
[2020-01-26] MEDS: AMOX/K CLAV 500 MG TAB PO SCH ×2 (08:16→19:35)
[2020-01-26] MEDS: CLOPIDOGREL 75 MG TABLET PO SCH (08:16)
[2020-01-26] MEDS: FERROUS SULFATE 325 MG TAB PO SCH (08:17)
[2020-01-26] MEDS: ASPIRIN EC 81 MG TAB PO SCH (08:17)
[2020-01-26] MEDS: FE SULF/FA/VIT B COMP & C TAB PO SCH (08:17)
--- NOTE | 2020-01-26 10:54 | FAST ---
[employer] FORM SHIFT START DATE/TIME: 01/25/2020 07:00 (FACILITIES ADMINISTRATOR) SHIFT END DATE/TIME: 01/25/2020 19:00 (FACILITIES ADMINISTRATOR) NAME IDANIA TERRY DATE OF : 1945 DATE OF ADMISSION: 01/21/2020 18:16 (FACILITIES ADMINISTRATOR) PHONE: AGE: 75 N# [id number] GENDER: Male ENCOUNTER PHYSICIAN: Dr. Jose Healy M.D. ADMISSION DIAGNOSIS: - Debility 16 - Debility (16) DEBILITY. AMS, UTI,ANEMIA. EATING: EATING - STEP 1: Does the patient complete the activity by him/herself with no assistance (physical, verbal/nonverbal cueing, setup/clean-up)? No. EATING - STEP 2: Does the patient need only setup/clean-up assistance from one helper? Yes. 1. [id number] ADMISSION PERFORMANCE: Setup or clean-up assistance CODE: 05 ORAL HYGIENE: ORAL HYGIENE - STEP 1: Does the patient complete the activity by him/herself with no assistance (physical, verbal/nonverbal cueing, setup/clean-up)? No. ORAL HYGIENE - STEP 2: Does the patient need only setup/clean-up assistance from one helper? Yes. 1. [id number] ADMISSION PERFORMANCE: Setup or clean-up assistance CODE: 05 TOILETING HYGIENE: TOILETING HYGIENE - STEP 1: Does the patient complete the activity by him/herself with no assistance (physical, verbal/nonverbal cueing, setup/clean-up)? No. TOILETING HYGIENE - STEP 2: Does the patient need only setup/clean-up assistance from one helper? No. TOILETING HYGIENE - STEP 3: Does the patient need only verbal/nonverbal cueing or touching/steadying/contact guard assistance fro m one helper? Yes. 1. [id number] ADMISSION PERFORMANCE: Supervision or touching assistance CODE: 04 BATHING: Not assessed/no information CODE: - DRESSING - UPPER BODY: DRESSING - UPPER BODY - STEP 1: Does the patient complete the activity by him/herself with no assistance (physical, verbal/nonverbal cueing, setup/clean-up)? No. DRESSING - UPPER BODY - STEP 2: Does the patient need only setup/clean-up assistance from one helper? Yes. 1. [id number] ADMISSION PERFORMANCE: Setup or clean-up assistance CODE: 05 DRESSING - LOWER BODY: DRESSING - LOWER BODY - STEP 1: Does the patient complete the activity by him/herself with no assistance (physical, verbal/nonverbal cueing, setup/clean-up)? No. DRESSING - LOWER BODY - STEP 2: Does the patient need only setup/clean-up assistance from one helper? No. DRESSING - LOWER BODY - STEP 3: Does the patient need only verbal/nonverbal cueing or touching/steadying/contact guard assistance fro m one helper? Yes. 1. [id number] ADMISSION PERFORMANCE: Supervision or touching assistance CODE: 04 PUTTING ON/TAKING OFF FOOTWEAR: FOOTWEAR - STEP 1: Does the patient complete the activity by him/herself with no assistance (physical, verbal/nonverbal cueing, setup/clean-up)? No. FOOTWEAR - STEP 2: Does the patient need only setup/clean-up assistance from one helper? No. FOOTWEAR - STEP 3: Does the patient need only verbal/nonverbal cueing or touching/steadying/contact guard assistance fro m one helper? Yes. 1. [id number] ADMISSION PERFORMANCE: Supervision or touching assistance CODE: 04 ROLL LEFT AND RIGHT: ROLL LEFT AND RIGHT - STEP 1: Does the patient complete the activity by him/herself with no assistance (physical, verbal/nonverbal cueing, setup/clean-up)? No. ROLL LEFT AND RIGHT - STEP 2: Does the patient need only setup/clean-up assistance from one helper? Yes. 1. [id number] ADMISSION PERFORMANCE: Setup or clean-up assistance CODE: 05 SIT TO LYING: SIT TO LYING - STEP 1: Does the patient complete the activity by him/herself with no assistance (physical, verbal/nonverbal cueing, setup/clean-up)? No. SIT TO LYING - STEP 2: Does the patient need only setup/clean-up assistance from one helper? Yes. 1. [id number] ADMISSION PERFORMANCE: Setup or clean-up assistance CODE: 05 LYING TO SITTING: LYING TO SITTING ON SIDE OF BED - STEP 1: Does the patient complete the activity by him/herself with no assistance (physical, verbal/nonverbal cueing, setup/clean-up)? No. LYING TO SITTING ON SIDE OF BED - STEP 2: Does the patient need only setup/clean-up assistance from one helper? Yes. 1. [id number] ADMISSION PERFORMANCE: Setup or clean-up assistance CODE: 05 SIT TO STAND: SIT TO STAND - STEP 1: Does the patient complete the activity by him/herself with no assistance (physical, verbal/nonverbal cueing, setup/clean-up)? No. SIT TO STAND - STEP 2: Does the patient need only setup/clean-up assistance from one helper? No. SIT TO STAND - STEP 3: Does the patient need only verbal/nonverbal cueing or touching/steadying/contact guard assistance fro m one helper? Yes. 1. [id number] ADMISSION PERFORMANCE: Supervision or touching assistance CODE: 04 TRANSFERS: BED, CHAIR: CHAIR/[id number] TRANSFER - STEP 1: Does the patient complete the activity by him/herself with no assistance (physical, verbal/nonverbal cueing, setup/clean-up)? No. CHAIR/[id number] TRANSFER - STEP 2: Does the patient need only setup/clean-up assistance from one helper? No. CHAIR/[id number] TRANSFER - STEP 3: Does the patient need only verbal/nonverbal cueing or touching/steadying/contact guard assistance fro m one helper? Yes. 1. [id number] ADMISSION PERFORMANCE: Supervision or touching assistance CODE: 04 TRANSFER TOILET: TOILET TRANSFER - STEP 1: Does the patient complete the activity by him/herself with no assistance (physical, verbal/nonverbal cueing, setup/clean-up)? No. TOILET TRANSFER - STEP 2: Does the patient need only setup/clean-up assistance from one helper? No. TOILET TRANSFER - STEP 3: Does the patient need only verbal/nonverbal cueing or touching/steadying/contact guard assistance fro m one helper? Yes. 1. [id number] ADMISSION PERFORMANCE: Supervision or touching assistance CODE: 04 TRANSFERS: CAR: Not assessed/no information CODE: - WALK 10 FEET: Not assessed/no information CODE: - 1 STEP (CURB): Not assessed/no information CODE: - PICKING UP OBJECT: Not assessed/no information CODE: - DOES THE PATIENT USE A WHEELCHAIR/SCOOTER? Q1. DOES THE PATIENT USE A WHEELCHAIR/SCOOTER?: Yes CODE: 1 WHEEL 50 FEET WITH TWO TURNS: WHEEL 50 FEET WITH TWO TURNS - STEP 1: Does the patient complete the activity by him/herself with no assistance (physical, verbal/nonverbal cueing, setup/clean-up)? No. WHEEL 50 FEET WITH TWO TURNS - STEP 2: Does the patient need only setup/clean-up assistance from one helper? No. WHEEL 50 FEET WITH TWO TURNS - STEP 3: Does the patient need only verbal/nonverbal cueing or touching/steadying/contact guard assistance fro m one helper? No. WHEEL 50 FEET WITH TWO TURNS - STEP 4: Does the patient need physical assistance - for example lifting or trunk support from one helper - wi th the helper providing less than half of the effort? Yes. 1. [id number] ADMISSION PERFORMANCE: Partial/moderate assistance CODE: 03 INDICATE THE TYPE OF WHEELCHAIR/SCOOTER USED: RR1. INDICATE THE TYPE OF WHEELCHAIR/SCOOTER USED.: Manual CODE: 1 WHEEL 150 FEET: WHEEL 150 FEET - STEP 1: Does the patient complete the activity by him/herself with no assistance (physical, verbal/nonverbal cueing, setup/clean-up)? No. WHEEL 150 FEET - STEP 2: Does the patient need only setup/clean-up assistance from one helper? No. WHEEL 150 FEET - STEP 3: Does the patient need only verbal/nonverbal cueing or touching/steadying/contact guard assistance fro m one helper? No. WHEEL 150 FEET - STEP 4: Does the patient need physical assistance - for example lifting or trunk support from one helper - wi th the helper providing less than half of the effort? Yes. 1. [id number] ADMISSION PERFORMANCE: Partial/moderate assistance CODE: 03 INDICATE THE TYPE OF WHEELCHAIR/SCOOTER USED: SS1. INDICATE THE TYPE OF WHEELCHAIR/SCOOTER USED.: Manual CODE: 1 BLADDER AND BOWEL: H350. BLADDER CONTINENCE (3-DAY ASSESSMENT PERIOD): Always incontinent CODE: 4 H400. BOWEL CONTINENCE (3-DAY ASSESSMENT PERIOD): Occasionally incontinent (one episode of bowel incontinence) CODE: 1 SIGNATURE PANEL: The following modified sections: 1. [id number] Admission Performance, 1. [id number] Admission Performance, 1. [id number] Admission Performance, 1. [id number] Admission Performance, 1. [id number] Admission Performance, 1. [id number] Admission Performance, 1. [id number] Admission Performance, 1. [id number] Admission Performance , 1. [id number] Admission Performance, 1. [id number] Admission Performance, 1. [id number] Admission Performanc e, 1. [id number] Admission Performance, 1. [id number] Admission Performance, 1. [id number] Admission Performan ce, Q1. Does the patient use a wheelchair/scooter?, 1. [id number] Admission Performance, 1. [id number] Admi ssion Performance, RR1. Indicate the type of wheelchair/scooter used., 1. [id number] Admission Performan ce, Code, SS1. Indicate the type of wheelchair/scooter used., H350. Bladder Continence (3-day assessm ent period), H400. Bowel Continence (3-day assessment period) were [electronically] signed by Lola Mcelroy C.N.A. on MonJan 26 2020 10:54:20 GMT-0600 (Central Standard Time)
[2020-01-26] MEDS: DILTIAZEM HCL 120 MG SR CAP PO SCH (12:00)
[2020-01-26] MEDS: ROSUVASTATIN 10 MG TAB PO SCH (19:35)
[2020-01-27] MEDS: NEBIVOLOL HCL 5 MG TAB PO SCH (05:02)
[2020-01-27] MEDS: HEPARIN 5000 UNIT/ML 1 ML VIAL SQ SCH (05:55)
[2020-01-27] MEDS: INSULIN -REGULAR HUMAN 50 UNIT/0.5 ML ML SQ SCH ×4 (07:30→21:00)
[2020-01-27] MEDS: CLOPIDOGREL 75 MG TABLET PO SCH (07:47)
[2020-01-27] MEDS: FE SULF/FA/VIT B COMP & C TAB PO SCH (07:47)
[2020-01-27] MEDS: ASPIRIN EC 81 MG TAB PO SCH (07:47)
[2020-01-27] MEDS: FERROUS SULFATE 325 MG TAB PO SCH (07:47)
[2020-01-27] MEDS: AMOX/K CLAV 500 MG TAB PO SCH ×2 (07:48→20:23)
[2020-01-27] MEDS: DILTIAZEM HCL 120 MG SR CAP PO SCH (12:00)
--- NOTE | 2020-01-27 16:57 | R.PN ---
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 AMS, UTI,ANEMIACHIEF COMPLAINT: Diffuse weakness, chronic anemia and CLL SUBJECTIVE: Pt denied any Shortness of Breath. Pt denied any depression. Due to CLL his WBC is elevated to 129.2. Will increase hydration. Hgb increased from 7.9 to 8.3 overn ight. Ambulated 350' with contact guard assistance using a rolling walker. Self-propelled wheelchair 150' w ith contact guard assistance. Glucose 107 to 195. VITAL SIGNS Temperature: 97.7 F SBP/DBP: 109/71 Pulse: 82 Resp: 16 MEDICATION ALLERGIES: No Known Drug Allergies (NKDA) ENVIRONMENTAL ALLERGIES: - Substance Allergies None Known - Other Allergies None Known NURSING: - Shower allowing shower ACTIVITIES OOB only with supervision THERAPIES: - Dietary and Nutrition Adequate Nutrition. Nutritional Education. Nutritional Supplements. PHYSICAL EXAM - Gen Alert and awake Lying in bed No apparent distress Oriented to: person, time, and place - Skin No breakdown Normacephalic - Eyes No abnormalities - ENMT No abnormalities - Neck No abnormalities - CVS RRR - Chest No abnormalities - Abd Soft - GI Soft Deferred - No abnormalities - Ext Mild bilateral lower extremity edema. - MSK 4+/5 weakness in both lower extremities. - Neuro No focal deficits - Psych No abnormalities ASSESSMENT: Pt. is a 75 yo Right-handed male of unknown race.On 01/16/2020 he was admitted to [facility] with diagnosis DEBILITY. AMS, UTI,ANEMIA.His impairment category is Debility 16 - Debility (16).Pre-morbidly, Pt. was independent/mod-I in Safety Awareness, Balance, Transfers Control, and En durance; and he had good Locomotion, Self-Care, Sphincter Control, and Transfers Control.Currently, ang delgado has deficits of Locomotion, Balance, Sphincter Control, Transfers Control, and Social Cognition.Pt. is now referred to [facility] for acute in-patient rehabilitation in order to maximize patient's functional independence in activities of daily living, strength, ROM, and mobilit y.- Rehab Goal Patient has realistic goal of being discharged at assistance level 7-Ind to reside at Home with Fami ly/Relatives. MDM/PLAN: - Physical Therapy Gait dysfunction - to improve, our physical therapists will perform initial evaluation of pt's statu s upon admission and devise an individualized program for Gait Training, and Wheel Chair mobility Inability to transfer - to improve, our physical therapists will perform initial evaluation of pt's status upon admission and devise an individualized program for Bed mobility Need for home safety evaluation - to improve, our physical therapists will perform initial evaluatio n of pt's status upon admission and devise an individualized program for Home Evaluation Need in caregiver upon discharge - to improve, our physical therapists will perform initial evaluati on of pt's status upon admission and devise an individualized program for Caregiver Training Edema - to improve, our physical therapists will perform initial evaluation of pt's status upon admi ssion and devise an individualized program for Elevation Training, and Lymphedema Therapy New precaution - to improve, our physical therapists will perform initial evaluation of pt's status upon admission and devise an individualized program for Patient precaution education Poor balance - to improve, our physical therapists will perform initial evaluation of pt's status up on admission and devise an individualized program for Balance Training Weakness - to improve, our physical therapists will perform initial evaluation of pt's status upon a dmission and devise an individualized program for Aquatic Therapy, Neuromuscular Reeducation, and Str engthening Achieving independence - to improve, our physical therapists will perform initial evaluation of pt's status upon admission and devise an individualized program for Community Reintegration Activities - Occupational Therapy Cognitive deficits - to improve, our occupation therapists will perform initial evaluation of pt's s tatus upon admission and devise an individualized program for Cognition - orientation Need for healthcare administrator - to improve, our occupation therapists will perform initial evaluation of pt's status upon admission and devise an individualized program for Caregiver Training Weakness - to improve, our occupation therapists will perform initial evaluation of pt's status upon admission and devise an individualized program for Aquatic Therapy, Balance, Endurance, UE ROM, and UE strengthening - Other See attached MAR (Medication Administration Record) - Diet Type Continue Regular - Diet - Liquid Texture Continue Regular - Tube Feed Continue N/A - Diet - Solid Texture Continue Regular - Shower allowing shower FUNCTIONAL STATUS: UPDATED AT WEEKLY TEAM CONFERENCE - Bladder Same accident frequency: 7-Ind - No accidents in the past 7 days - Bowel Same accident frequency: 7-Ind - No accidents in the past 7 days - Walking Same score based on distance walked: 0(N/A) Same score based on distance walked: 1(<=50ft) - Wheelchair Same score based on distance traveled: 0(N/A) FUNCTIONAL STATUS: - Self-Care A. Eating Beatrice B. Grooming sup C. Bathing Candace D. Dressing - Upper Candace E. Dressing - Lower Candace F. Toileting Candace - Sphincter Control G. Bladder control Beatrice H. Bowel control Beatrice - Transfers Control I. Bed/Chair/Wheelchair Candace J. Toilet Candace K. Tub/Shower Candace - Locomotion L. Walk/Wheelchair (B) Candace M. Stairs ADNO - Communication N. Comprehension (B) sup O. Expression (B) sup - Social Cognition P. Social Interaction sup Q. Problem Solving Candace R. Memory sup - Endurance Fair - Balance Fair - Safety Awareness Fair QI SCORES: - Self-Care A. Eating 04-Supervision or touching assistance B. Oral hygiene 03-Partial/moderate assistance C. Toileting hygiene 03-Partial/moderate assistance E. Shower/bathe self 03-Partial/moderate assistance F. Upper body dressing 03-Partial/moderate assistance G. Lower body dressing 03-Partial/moderate assistance H. Putting on/taking off footwear 88-Not attempted due to medical condition or safety concerns - Mobility A. Roll left and right 03-Partial/moderate assistance B. Sit to lying 03-Partial/moderate assistance C. Lying to sitting on side of bed 03-Partial/moderate assistance D. Sit to stand 03-Partial/moderate assistance E. Chair/[id number] transfer 03-Partial/moderate assistance F. Toilet transfer 03-Partial/moderate assistance G. Car transfer 88-Not attempted due to medical condition or safety concerns I. Walk 10 feet 88-Not attempted due to medical condition or safety concerns J. Walk 50 feet with two turns 88-Not attempted due to medical condition or safety concerns K. Walk 150 feet 88-Not attempted due to medical condition or safety concerns L. Walking 10 feet on uneven surfaces 88-Not attempted due to medical condition or safety concerns M. 1 step (curb) 88-Not attempted due to medical condition or safety concerns N. 4 steps 88-Not attempted due to medical condition or safety concerns O. 12 steps 88-Not attempted due to medical condition or safety concerns P. Picking up object 88-Not attempted due to medical condition or safety concerns R. Wheel 50 feet with two turns 88-Not attempted due to medical condition or safety concerns S. Wheel 150 feet 88-Not attempted due to medical condition or safety concerns - Bladder and Bowel Bladder continence Bowel continence - Endurance Fair - Balance Fair - Safety Awareness Fair CURRENT [facility]. 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
[2020-01-27] MEDS: NYSTATIN PWDR 100000 UNIT/GM TOP SCH (20:00)
[2020-01-27] MEDS: ROSUVASTATIN 10 MG TAB PO SCH (20:23)
[2020-01-28] MEDS: NEBIVOLOL HCL 5 MG TAB PO SCH (05:08)
[2020-01-28] MEDS: HEPARIN 5000 UNIT/ML 1 ML VIAL SQ SCH (05:58)
[2020-01-28] MEDS: NYSTATIN PWDR 100000 UNIT/GM TOP SCH ×2 (06:31→20:00)
[2020-01-28] MEDS: INSULIN -REGULAR HUMAN 50 UNIT/0.5 ML ML SQ SCH ×4 (07:07→21:00)
--- NOTE | 2020-01-28 07:55 | RAD REPORT ---
EXAM DESCRIPTION: Cat Single View01/28/2020 6:31 am CLINICAL HISTORY: Shortness of breath COMPARISON: January 2019 FINDINGS: Mild right upper lobe and left basilar pulmonary opacities. Heart is mildly to moderately enlarged IMPRESSION: Mild bilateral pulmonary opacities may represent pneumonia
[2020-01-28] MEDS: CYANOCOBALAMIN 1,000 MCG TAB PO SCH (07:59)
[2020-01-28] MEDS: FERROUS SULFATE 325 MG TAB PO SCH (08:00)
[2020-01-28] MEDS: CLOPIDOGREL 75 MG TABLET PO SCH (08:00)
[2020-01-28] MEDS: AMOX/K CLAV 500 MG TAB PO SCH (08:00)
[2020-01-28] MEDS: ASPIRIN EC 81 MG TAB PO SCH (08:00)
[2020-01-28] MEDS: FE SULF/FA/VIT B COMP & C TAB PO SCH (08:00)
[2020-01-28] MEDS: DILTIAZEM HCL 120 MG SR CAP PO SCH (12:01)
[2020-01-28] MEDS: levoFLOXacin 500 MG TAB PO SCH (14:07)
--- NOTE | 2020-01-28 17:18 | R.PN ---
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 AMS, UTI,ANEMIACHIEF COMPLAINT: Diffuse weakness, chronic anemia and CLL SUBJECTIVE: Pt denied any Shortness of Breath. Pt denied any depression. Due to CLL his WBC is elevated to 129.2. Will increase hydration. Hgb increased from 7.9 to 8[address] Kearney advised oral iron for now. Ambulated 470' with standby assistance using a rolling walker. Self-propelled wheelchair 200' with st andby assistance. Glucose 107 to 195. His repeat chest x-ray show possible pneumonia. Will switch to Levaquin 500 mg daily from Augmentin a fter sputum cultures are collected. VITAL SIGNS Temperature: 98.3 F SBP/DBP: 129/66 Pulse: 72 Resp: 15 MEDICATION ALLERGIES: No Known Drug Allergies (NKDA) ENVIRONMENTAL ALLERGIES: - Substance Allergies None Known - Other Allergies None Known NURSING: - Shower allowing shower ACTIVITIES OOB only with supervision THERAPIES: - Dietary and Nutrition Adequate Nutrition. Nutritional Education. Nutritional Supplements. PHYSICAL EXAM - Gen Alert and awake Lying in bed No apparent distress Oriented to: person, time, and place - Skin No breakdown Normacephalic - Eyes No abnormalities - ENMT No abnormalities - Neck No abnormalities - CVS RRR - Chest No abnormalities - Abd Soft - GI Soft Deferred - No abnormalities - Ext Mild bilateral lower extremity edema. - MSK 4+/5 weakness in both lower extremities. - Neuro No focal deficits - Psych No abnormalities ASSESSMENT: Pt. is a 75 yo Right-handed male of unknown race.On 01/16/2020 he was admitted to [facility] with diagnosis DEBILITY. AMS, UTI,ANEMIA.His impairment category is Debility 16 - Debility (16).Pre-morbidly, Pt. was independent/mod-I in Safety Awareness, Balance, Transfers Control, and En durance; and he had good Locomotion, Self-Care, Sphincter Control, and Transfers Control.Currently, ang delgado has deficits of Locomotion, Balance, Sphincter Control, Transfers Control, and Social Cognition.Pt. is now referred to [facility] for acute in-patient rehabilitation in order to maximize patient's functional independence in activities of daily living, strength, ROM, and mobilit y.- Rehab Goal Patient has realistic goal of being discharged at assistance level 7-Ind to reside at Home with Fami ly/Relatives. MDM/PLAN: - Physical Therapy Gait dysfunction - to improve, our physical therapists will perform initial evaluation of pt's statu s upon admission and devise an individualized program for Gait Training, and Wheel Chair mobility Inability to transfer - to improve, our physical therapists will perform initial evaluation of pt's status upon admission and devise an individualized program for Bed mobility Need for home safety evaluation - to improve, our physical therapists will perform initial evaluatio n of pt's status upon admission and devise an individualized program for Home Evaluation Need in caregiver upon discharge - to improve, our physical therapists will perform initial evaluati on of pt's status upon admission and devise an individualized program for Caregiver Training Edema - to improve, our physical therapists will perform initial evaluation of pt's status upon admi ssion and devise an individualized program for Elevation Training, and Lymphedema Therapy New precaution - to improve, our physical therapists will perform initial evaluation of pt's status upon admission and devise an individualized program for Patient precaution education Poor balance - to improve, our physical therapists will perform initial evaluation of pt's status up on admission and devise an individualized program for Balance Training Weakness - to improve, our physical therapists will perform initial evaluation of pt's status upon a dmission and devise an individualized program for Aquatic Therapy, Neuromuscular Reeducation, and Str engthening Achieving independence - to improve, our physical therapists will perform initial evaluation of pt's status upon admission and devise an individualized program for Community Reintegration Activities - Occupational Therapy Cognitive deficits - to improve, our occupation therapists will perform initial evaluation of pt's s tatus upon admission and devise an individualized program for Cognition - orientation Need for rn intensive care unit - to improve, our occupation therapists will perform initial evaluation of pt's status upon admission and devise an individualized program for Caregiver Training Weakness - to improve, our occupation therapists will perform initial evaluation of pt's status upon admission and devise an individualized program for Aquatic Therapy, Balance, Endurance, UE ROM, and UE strengthening - Other See attached MAR (Medication Administration Record) - Diet Type Continue Regular - Diet - Liquid Texture Continue Regular - Tube Feed Continue N/A - Diet - Solid Texture Continue Regular - Shower allowing shower FUNCTIONAL STATUS: UPDATED AT WEEKLY TEAM CONFERENCE - Bladder Same accident frequency: 7-Ind - No accidents in the past 7 days - Bowel Same accident frequency: 7-Ind - No accidents in the past 7 days - Walking Same score based on distance walked: 0(N/A) Same score based on distance walked: 1(<=50ft) - Wheelchair Same score based on distance traveled: 0(N/A) FUNCTIONAL STATUS: - Self-Care A. Eating Beatrice B. Grooming sup C. Bathing Candace D. Dressing - Upper Candace E. Dressing - Lower Candace F. Toileting Candace - Sphincter Control G. Bladder control Beatrice H. Bowel control Beatrice - Transfers Control I. Bed/Chair/Wheelchair Candace J. Toilet Candace K. Tub/Shower Candace - Locomotion L. Walk/Wheelchair (B) Candace M. Stairs ADNO - Communication N. Comprehension (B) sup O. Expression (B) sup - Social Cognition P. Social Interaction sup Q. Problem Solving [place] R. Memory sup - Endurance Fair - Balance Fair - Safety Awareness Fair QI SCORES: - Self-Care A. Eating 04-Supervision or touching assistance B. Oral hygiene 03-Partial/moderate assistance C. Toileting hygiene 03-Partial/moderate assistance E. Shower/bathe self 03-Partial/moderate assistance F. Upper body dressing 03-Partial/moderate assistance G. Lower body dressing 03-Partial/moderate assistance H. Putting on/taking off footwear 88-Not attempted due to medical condition or safety concerns - Mobility A. Roll left and right 03-Partial/moderate assistance B. Sit to lying 03-Partial/moderate assistance C. Lying to sitting on side of bed 03-Partial/moderate assistance D. Sit to stand 03-Partial/moderate assistance E. Chair/[id number] transfer 03-Partial/moderate assistance F. Toilet transfer 03-Partial/moderate assistance G. Car transfer 88-Not attempted due to medical condition or safety concerns I. Walk 10 feet 88-Not attempted due to medical condition or safety concerns J. Walk 50 feet with two turns 88-Not attempted due to medical condition or safety concerns K. Walk 150 feet 88-Not attempted due to medical condition or safety concerns L. Walking 10 feet on uneven surfaces 88-Not attempted due to medical condition or safety concerns M. 1 step (curb) 88-Not attempted due to medical condition or safety concerns N. 4 steps 88-Not attempted due to medical condition or safety concerns O. 12 steps 88-Not attempted due to medical condition or safety concerns P. Picking up object 88-Not attempted due to medical condition or safety concerns R. Wheel 50 feet with two turns 88-Not attempted due to medical condition or safety concerns S. Wheel 150 feet 88-Not attempted due to medical condition or safety concerns - Bladder and Bowel Bladder continence Bowel continence - Endurance Fair - Balance Fair - Safety Awareness Fair CURRENT [facility]. DEFICITS: Self-Care, Mobility, Endurance, Balance, and Safety Awareness SIGNATURE PANEL: (UPTWIST SPINNER)
[2020-01-28] MEDS: DOCUSATE NA/SENNA CONC 1 TAB PO PRN (20:51)
[2020-01-28] MEDS: ROSUVASTATIN 10 MG TAB PO SCH (20:51)
[2020-01-29] MEDS: NEBIVOLOL HCL 5 MG TAB PO SCH (05:08)
[2020-01-29] MEDS: INSULIN -REGULAR HUMAN 50 UNIT/0.5 ML ML SQ SCH ×4 (07:30→19:25)
[2020-01-29] MEDS: HEPARIN 5000 UNIT/ML 1 ML VIAL SQ SCH (07:30)
[2020-01-29] MEDS: ASPIRIN EC 81 MG TAB PO SCH (08:16)
[2020-01-29] MEDS: FE SULF/FA/VIT B COMP & C TAB PO SCH (08:16)
[2020-01-29] MEDS: CLOPIDOGREL 75 MG TABLET PO SCH (08:16)
[2020-01-29] MEDS: FERROUS SULFATE 325 MG TAB PO SCH (08:16)
[2020-01-29] MEDS: CYANOCOBALAMIN 1,000 MCG TAB PO SCH (08:17)
[2020-01-29] MEDS: levoFLOXacin 500 MG TAB PO SCH (08:17)
[2020-01-29] MEDS: NYSTATIN PWDR 100000 UNIT/GM TOP SCH ×2 (08:18→20:23)
[2020-01-29] MEDS: DILTIAZEM HCL 120 MG SR CAP PO SCH (12:00)
--- NOTE | 2020-01-29 16:44 | R.PN ---
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 AMS, UTI,ANEMIACHIEF COMPLAINT: Diffuse weakness, chronic anemia and CLL SUBJECTIVE: Pt denied any Shortness of Breath. Pt denied any depression. Due to CLL his WBC is elevated to 129.2. Will increase hydration. Hgb increased from 7.9 to [address] Kearney advised oral iron for now. Ambulated 500' with standby assistance using a rolling walker. Up and down 5 steps with contact guard assistance. Glucose 111 to 128. His repeat chest x-ray show possible pneumonia. Will switch to Levaquin 500 mg daily from Augmentin a fter sputum cultures are collected. VITAL SIGNS Temperature: 97.8 F SBP/DBP: 106/55 Pulse: 80 Resp: 15 MEDICATION ALLERGIES: No Known Drug Allergies (NKDA) ENVIRONMENTAL ALLERGIES: - Substance Allergies None Known - Other Allergies None Known NURSING: - Shower allowing shower ACTIVITIES OOB only with supervision THERAPIES: - Dietary and Nutrition Adequate Nutrition. Nutritional Education. Nutritional Supplements. PHYSICAL EXAM - Gen Alert and awake Lying in bed No apparent distress Oriented to: person, time, and place - Skin No breakdown Normacephalic - Eyes No abnormalities - ENMT No abnormalities - Neck No abnormalities - CVS RRR - Chest No abnormalities - Abd Soft - GI Soft Deferred - No abnormalities - Ext Mild bilateral lower extremity edema. - MSK 4+/5 weakness in both lower extremities. - Neuro No focal deficits - Psych No abnormalities ASSESSMENT: Pt. is a 75 yo Right-handed male of unknown race.On 01/16/2020 he was admitted to [facility] with diagnosis DEBILITY. AMS, UTI,ANEMIA.His impairment category is Debility 16 - Debility (16).Pre-morbidly, Pt. was independent/mod-I in Safety Awareness, Balance, Transfers Control, and En durance; and he had good Locomotion, Self-Care, Sphincter Control, and Transfers Control.Currently, ang delgado has deficits of Locomotion, Balance, Sphincter Control, Transfers Control, and Social Cognition.Pt. is now referred to [facility] for acute in-patient rehabilitation in order to maximize patient's functional independence in activities of daily living, strength, ROM, and mobilit y.- Rehab Goal Patient has realistic goal of being discharged at assistance level 7-Ind to reside at Home with Fami ly/Relatives. MDM/PLAN: - Physical Therapy Gait dysfunction - to improve, our physical therapists will perform initial evaluation of pt's statu s upon admission and devise an individualized program for Gait Training, and Wheel Chair mobility Inability to transfer - to improve, our physical therapists will perform initial evaluation of pt's status upon admission and devise an individualized program for Bed mobility Need for home safety evaluation - to improve, our physical therapists will perform initial evaluatio n of pt's status upon admission and devise an individualized program for Home Evaluation Need in caregiver upon discharge - to improve, our physical therapists will perform initial evaluati on of pt's status upon admission and devise an individualized program for Caregiver Training Edema - to improve, our physical therapists will perform initial evaluation of pt's status upon admi ssion and devise an individualized program for Elevation Training, and Lymphedema Therapy New precaution - to improve, our physical therapists will perform initial evaluation of pt's status upon admission and devise an individualized program for Patient precaution education Poor balance - to improve, our physical therapists will perform initial evaluation of pt's status up on admission and devise an individualized program for Balance Training Weakness - to improve, our physical therapists will perform initial evaluation of pt's status upon a dmission and devise an individualized program for Aquatic Therapy, Neuromuscular Reeducation, and Str engthening Achieving independence - to improve, our physical therapists will perform initial evaluation of pt's status upon admission and devise an individualized program for Community Reintegration Activities - Occupational Therapy Cognitive deficits - to improve, our occupation therapists will perform initial evaluation of pt's s tatus upon admission and devise an individualized program for Cognition - orientation Need for overnight caregiver - to improve, our occupation therapists will perform initial evaluation of pt's status upon admission and devise an individualized program for Caregiver Training Weakness - to improve, our occupation therapists will perform initial evaluation of pt's status upon admission and devise an individualized program for Aquatic Therapy, Balance, Endurance, UE ROM, and UE strengthening - Other See attached MAR (Medication Administration Record) - Diet Type Continue Regular - Diet - Liquid Texture Continue Regular - Tube Feed Continue N/A - Diet - Solid Texture Continue Regular - Shower allowing shower FUNCTIONAL STATUS: UPDATED AT WEEKLY TEAM CONFERENCE - Bladder Same accident frequency: 7-Ind - No accidents in the past 7 days - Bowel Same accident frequency: 7-Ind - No accidents in the past 7 days - Walking Same score based on distance walked: 0(N/A) Same score based on distance walked: 1(<=50ft) - Wheelchair Same score based on distance traveled: 0(N/A) FUNCTIONAL STATUS: - Self-Care A. Eating Beatrice B. Grooming sup C. Bathing Candace D. Dressing - Upper Candace E. Dressing - Lower Candace F. Toileting Candace - Sphincter Control G. Bladder control Beatrice H. Bowel control Beatrice - Transfers Control I. Bed/Chair/Wheelchair Candace J. Toilet Candace K. Tub/Shower Candace - Locomotion L. Walk/Wheelchair (B) Candace M. Stairs ADNO - Communication N. Comprehension (B) sup O. Expression (B) sup - Social Cognition P. Social Interaction sup Q. Problem Solving Candace R. Memory sup - Endurance Fair - Balance Fair - Safety Awareness Fair QI SCORES: - Self-Care A. Eating 04-Supervision or touching assistance B. Oral hygiene 03-Partial/moderate assistance C. Toileting hygiene 03-Partial/moderate assistance E. Shower/bathe self 03-Partial/moderate assistance F. Upper body dressing 03-Partial/moderate assistance G. Lower body dressing 03-Partial/moderate assistance H. Putting on/taking off footwear 88-Not attempted due to medical condition or safety concerns - Mobility A. Roll left and right 03-Partial/moderate assistance B. Sit to lying 03-Partial/moderate assistance C. Lying to sitting on side of bed 03-Partial/moderate assistance D. Sit to stand 03-Partial/moderate assistance E. Chair/pzq-bh-genri transfer 03-Partial/moderate assistance F. Toilet transfer 03-Partial/moderate assistance G. Car transfer 88-Not attempted due to medical condition or safety concerns I. Walk 10 feet 88-Not attempted due to medical condition or safety concerns J. Walk 50 feet with two turns 88-Not attempted due to medical condition or safety concerns K. Walk 150 feet 88-Not attempted due to medical condition or safety concerns L. Walking 10 feet on uneven surfaces 88-Not attempted due to medical condition or safety concerns M. 1 step (curb) 88-Not attempted due to medical condition or safety concerns N. 4 steps 88-Not attempted due to medical condition or safety concerns O. 12 steps 88-Not attempted due to medical condition or safety concerns P. Picking up object 88-Not attempted due to medical condition or safety concerns R. Wheel 50 feet with two turns 88-Not attempted due to medical condition or safety concerns S. Wheel 150 feet 88-Not attempted due to medical condition or safety concerns - Bladder and Bowel Bladder continence Bowel continence - Endurance Fair - Balance Fair - Safety Awareness Fair CURRENT [facility]. 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
[2020-01-29] MEDS: ROSUVASTATIN 10 MG TAB PO SCH (20:23)
[2020-01-30] MEDS: NEBIVOLOL HCL 5 MG TAB PO SCH (05:09)
[2020-01-30] MEDS: HEPARIN 5000 UNIT/ML 1 ML VIAL SQ SCH ×2 (06:04→07:45)
[2020-01-30 06:17] LABS: Absolute Lymphocytes (CBC) 91.5 K/uL (0.7-4.9); Basophils % 0.1 % (0-1.3); Hematocrit 22.5 % (39.6-49.0); Lymphocytes % 91.9 % (15.3-44.8); MPV 7.7 fL (7.6-11.3); RBC Red Blood Cell Count 2.03 M/uL (4.33-5.43)
[2020-01-30 06:38] LABS: Albumin 3.5 g/dL (3.4-5.0); Magnesium 2.2 mg/dL (1.8-2.4); Potassium 4.4 mmol/L (3.5-5.1)
[2020-01-30 06:52] LABS: Blood Morphology Comment NOT SEEN (NOT SEEN); Platelet Estimate ADEQ
[2020-01-30] MEDS: INSULIN -REGULAR HUMAN 50 UNIT/0.5 ML ML SQ SCH ×4 (07:30→20:33)
[2020-01-30] MEDS ORDERED: NA CHLORIDE 0.9% 250 ML IV SCH (08:00)
[2020-01-30] MEDS: FERROUS SULFATE 325 MG TAB PO SCH (08:09)
[2020-01-30] MEDS: CYANOCOBALAMIN 1,000 MCG TAB PO SCH (08:09)
[2020-01-30] MEDS: levoFLOXacin 500 MG TAB PO SCH (08:09)
[2020-01-30] MEDS: CLOPIDOGREL 75 MG TABLET PO SCH (08:09)
[2020-01-30] MEDS: FE SULF/FA/VIT B COMP & C TAB PO SCH (08:09)
[2020-01-30] MEDS: ASPIRIN EC 81 MG TAB PO SCH (08:10)
[2020-01-30] MEDS: NYSTATIN PWDR 100000 UNIT/GM TOP SCH ×2 (08:10→20:34)
--- NOTE | 2020-01-30 10:00 | P.RH.PN ---
Estimated Length of Stay: 15 Expected Discharge Date: 02/04/20 Discharge Disposition Plan: Home Family Support: Yes Alf Goal: Mobility, Transfers, Self Care Vital Signs: Last Vital Signs Temp 97.6 F 01/30/20 07:12 Pulse 69 01/30/20 07:12 Resp 18 01/30/20 07:12 BP 133/67 01/30/20 07:12 Pulse Ox 96 01/30/20 07:12 Laboratory: Laboratory Last Values WBC 99.6 K/uL (4.3-10.9) H* D 01/30/20 05:59 RBC 2.03 M/uL (4.33-5.43) L D 01/30/20 05:59 Hgb 6.9 g/dL (13.6-17.9) L* 01/30/20 05:59 Hct 22.5 % (39.6-49.0) L D 01/30/20 05:59 MCV 110.7 fL (80-100) H D 01/30/20 05:59 MCH 33.8 pg (27.0-35.0) 01/30/20 05:59 MCHC 30.5 g/dL (32.0-36.0) L 01/30/20 05:59 RDW 19.0 % (12.1-15.2) H 01/30/20 05:59 Plt Count 355 K/uL (152-406) 01/30/20 05:59 MPV 7.7 fL (7.6-11.3) 01/30/20 05:59 Neutrophils % 5.1 % (41.7-73.7) L 01/30/20 05:59 Lymphocytes % 91.9 % (15.3-44.8) H 01/30/20 05:59 Monocytes % 2.6 % (3.3-12.3) L 01/30/20 05:59 Eosinophils % 0.3 % (0-4.4) 01/30/20 05:59 Basophils % 0.1 % (0-1.3) 01/30/20 05:59 Absolute Neutrophils 5.1 K/uL (1.8-8.0) 01/30/20 05:59 Segmented Neutrophils 4 % (40-80) L 01/30/20 05:59 Absolute Lymphocytes 91.5 K/uL (0.7-4.9) H 01/30/20 05:59 Lymphocytes 93 % (15-42) H 01/30/20 05:59 Monocytes 3 % (0-10) 01/30/20 05:59 Absolute Monocytes 2.6 K/uL (0.1-1.3) H 01/30/20 05:59 Eosinophils 1 % (0-3) 01/23/20 06:03 Absolute Eosinophils 0.3 K/uL (0-0.5) 01/30/20 05:59 Absolute Basophils 0.1 K/uL (0-0.5) 01/30/20 05:59 Smudge Cells Present 01/22/20 05:57 Platelet Estimate Adeq 01/30/20 05:59 Macrocytosis 1+ 01/23/20 06:03 Morphology Comment Not seen (NOT SEEN) 01/30/20 05:59 Sodium 144 mmol/L (136-145) 01/30/20 05:59 Potassium 4.4 mmol/L (3.5-5.1) 01/30/20 05:59 Chloride 115 mmol/L (98-107) H 01/30/20 05:59 Carbon Dioxide 22 mmol/L (21-32) 01/30/20 05:59 BUN 28 mg/dL (7-18) H 01/30/20 05:59 Creatinine 1.79 mg/dL (0.55-1.3) H 01/30/20 05:59 Estimated GFR 37 mL/min (=/>90) L 01/30/20 05:59 Glucose 134 mg/dL (74-106) H 01/30/20 05:59 POC Glucose 124 mg/dL (65-120) H 01/30/20 07:02 Calcium 8.9 mg/dL (8.5-10.1) 01/30/20 05:59 Magnesium 2.2 mg/dL (1.8-2.4) 01/30/20 05:59 Iron 104.0 ug/dL (65-175) 01/25/20 06:12 TIBC 263 ug/dL (250-460) 01/25/20 06:12 Transferrin 188 mg/dL (200-360) L 01/25/20 06:12 Transferrin % Sat 39.5 % (20.0-50.0) 01/25/20 06:12 Ferritin 402.5 ng/mL (26-388) H 01/25/20 06:12 Albumin 3.5 g/dL (3.4-5.0) 01/30/20 05:59 Prealbumin 21.0 mg/dL (20-40) 01/30/20 05:59 Crossmatch See Detail 01/30/20 Unknown Weight: 179 lb 9.6 oz Wound Present: Yes Closed Surgical Incision Present: No Negative Pressure Wound Therapy Present: No Physician Update: Hgb is low at 7.9. He is getting 1 unit of PRBCs. He is walking 250' standby assitance. Up and down 5 steps with contact guard assitance. His chest x-ray shows a pneumonia and he is now on Levaquin. His doing well with occupational therapy. Functional Improvement: pt has demonstrated improvement with functional mobility and safety. pt is currently SBA with all functional mobility and does require some occasional saftey tips. pt does fatigue quickly at times. Skilled PT services continue to be necessary to enhance safety and functional independence. 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 Please see the Rehabilitation Signature page for all necessary signatures.
[2020-01-30] MEDS: DILTIAZEM HCL 120 MG SR CAP PO SCH (12:00)
[2020-01-30] MEDS: ROSUVASTATIN 10 MG TAB PO SCH (20:33)
[2020-01-30] MEDS: DOCUSATE NA/SENNA CONC 1 TAB PO PRN (20:33)
[2020-01-31] MEDS: NEBIVOLOL HCL 5 MG TAB PO SCH (05:10)
[2020-01-31 07:21] VITALS: BP 138/74; TEMP 97.8
[2020-01-31] MEDS: INSULIN -REGULAR HUMAN 50 UNIT/0.5 ML ML SQ SCH (07:30)
[2020-01-31] MEDS: HEPARIN 5000 UNIT/ML 1 ML VIAL SQ SCH (08:00)
[2020-01-31] MEDS: ASPIRIN EC 81 MG TAB PO SCH (08:01)
[2020-01-31] MEDS: FE SULF/FA/VIT B COMP & C TAB PO SCH (08:01)
[2020-01-31] MEDS: levoFLOXacin 500 MG TAB PO SCH (08:01)
[2020-01-31] MEDS: FERROUS SULFATE 325 MG TAB PO SCH (08:02)
[2020-01-31] MEDS: CYANOCOBALAMIN 1,000 MCG TAB PO SCH (08:02)
[2020-01-31] MEDS: CLOPIDOGREL 75 MG TABLET PO SCH (08:02)
--- NOTE | 2020-01-31 18:04 | R.PREADM ---
PRE-ADMISSION SCREENING FORM ANTICIPATED REHAB ADMISSION DATE 02/02/2020 REFERRING FACILITY [facility] REFERRAL DATE AND TIME 01/31/2020 14:38 (YACHT CAPTAIN) ACUTE ADMIT DATE 01/31/2020 Previous Rehabilitation(s): No. ATTENDING PHYSICIAN REFERRING PHYSICIAN DR LEES REHAB FACILITY [facility] CLINICAL LIAISON Kashif Gonzalez PHYSICIAN REVIEWER Dr. Jose Healy M.D. MR# [id number] NAME IDANIA TERRY ADDRESS [address] [facility] PHONE [facility] [address] DATE OF 1945 AGE 75 SSN# [id number] GENDER male MARITAL STATUS RACE unknown race PREF. LANGUAGE (IF NON-YAKUT) Thai ADMIT FROM 02 - [facility] PRE-HOSPITAL LIVING SETTING 01 - Home (private home/apt. board/care, assisted living, chcf, transitional living) HOME TYPE AND DETAILS Type of home: single family house # of levels in the residence: 2 # of steps within the residence:10 # of steps to enter the residence: 2 PRE-HOSPITAL LIVING WITH Family/Relatives FAMILY SUPPORT Yes PRIMARY FAMILY CONTACT NAME RICHIE TERRY PRIMARY FAMILY CONTACT PHONE PRIMARY FAMILY CONTACT RELATIONSHIP Spouse 1ST EMERGENCY CONTACT RICHIE TERRY 1ST CONTACT PHONE 1ST CONTACT RELATIONSHIP Spouse PATIENT EMPLOYMENT STATUS Retired (for age) PATIENT EMPLOYER No Employer PAYOR INFORMATION: 1ST PAYOR NAME MEDICARE 1ST PAYOR PHONE 1ST PAYOR INJURY/ILLNESS DUE TO ACCIDENT? No ANOTHER REPUBLICAN RESPONSIBLE? No PRIMARY REHAB/ACUTE DIAGNOSIS: DEBILITY. AMS, UTI,ANEMIA ONSET DATE 01/16/2020 REHAB IMPAIRMENT CATEGORY (CLOVER): 20 Miscellaneous (Misc) does NOT meet 60% rule PRIMARY DIAGNOSIS-RELATED SURGERIES: BLOOD TRANSFUSION SUMMARY OF ACUTE HOSPITALIZATION: Pt. is a 75 yo Right-handed male of unknown race. On 01/16/2020 he was admitted to [facility] with diagnosis DEBILITY. AMS, UTI,ANEMIA. His impairment category is Debility 16 - Debility (16). Pre-morbidly, Pt. was independent/mod-I in Safety Awareness, Balance, Transfers Control, and Enduranc e; and he had good Locomotion, Self-Care, Sphincter Control, and Transfers Control. Currently, he has deficits of Locomotion, Balance, Sphincter Control, Transfers Control, and Social C ognition. Pt. is now referred to [facility] for acute in-patient rehabilitation in order to maximize patient's functional independence in activities of daily living, strength, ROM, and mobi lity. Patient has realistic goal of being discharged at assistance level 7-Ind to reside at Home with Fami ly/Relatives. UPDATE: Patient has a hemoglobin of 6.9 and needed a transfusion. He was transferred to the acute floor for the transfusion as he needed telemetry for monitoring as he had a history for VTACH. He is now medically stable and ready for re-admission back to rehab. PAST MEDICAL HISTORY HYPERTENSION COPD SVT DIABETES MELLITUS TYPE 2 AAA HISTORY OF BLADDER CANCER CVA AFIB CLL PAST SURGICAL HISTORY: REMOVAL OF THORACIC HEMATOMA BLADDER RESECTION 2X LAMINECTOMY MEDICATION ALLERGIES: No Known Drug Allergies (NKDA) ENVIRONMENTAL ALLERGIES: - Substance Allergies None Known - Other Allergies None Known CODE STATUS: Full code WEIGHT/HEIGHT/BMI: WEIGHT 214 lbs HEIGHT 5' 8" BMI 32.5 DIET: - Diet Type Regular - Diet - Solid Texture Regular - Diet - Liquid Texture Regular - Tube Feed N/A REVIEW OF SYSTEMS: - Gen Alert and awake Lying in bed No apparent distress Oriented to: person, time, and place - Vital Signs Temperature: 97.6 F SBP/DBP: 139/69 Pulse: 70 Resp: 16 Vital signs stable, afebrile - CVS RRR VITAL SIGNS Temperature: 97.6 F SBP/DBP: 139/69 Pulse: 70 Resp: 16 Vital signs stable, afebrile MEDICATIONS/TREATMENT: Other- See attached MAR (Medication Administration Record). QI SCORES: - Self-Care A. Eating 04-Supervision or touching assistance B. Oral hygiene 03-Partial/moderate assistance C. Toileting hygiene 03-Partial/moderate assistance E. Shower/bathe self 03-Partial/moderate assistance F. Upper body dressing 03-Partial/moderate assistance G. Lower body dressing 03-Partial/moderate assistance H. Putting on/taking off footwear 88-Not attempted due to medical condition or safety concerns - Mobility A. Roll left and right 03-Partial/moderate assistance B. Sit to lying 03-Partial/moderate assistance C. Lying to sitting on side of bed 03-Partial/moderate assistance D. Sit to stand 03-Partial/moderate assistance E. Chair/pgn-px-fmibl transfer 03-Partial/moderate assistance F. Toilet transfer 03-Partial/moderate assistance G. Car transfer 88-Not attempted due to medical condition or safety concerns I. Walk 10 feet 88-Not attempted due to medical condition or safety concerns J. Walk 50 feet with two turns 88-Not attempted due to medical condition or safety concerns K. Walk 150 feet 88-Not attempted due to medical condition or safety concerns L. Walking 10 feet on uneven surfaces 88-Not attempted due to medical condition or safety concerns M. 1 step (curb) 88-Not attempted due to medical condition or safety concerns N. 4 steps 88-Not attempted due to medical condition or safety concerns O. 12 steps 88-Not attempted due to medical condition or safety concerns P. Picking up object 88-Not attempted due to medical condition or safety concerns R. Wheel 50 feet with two turns 88-Not attempted due to medical condition or safety concerns S. Wheel 150 feet 88-Not attempted due to medical condition or safety concerns - Bladder and Bowel Bladder continence Bowel continence - Endurance Fair - Balance Fair - Safety Awareness Fair CURRENT FUNC. DEFICITS: Self-Care, Mobility, Endurance, Balance, and Safety Awareness CURRENT / PREVIOUS ASSISTIVE DEVICES: Rolling Walker HISTORY OF FALLS. HAS THE PATIENT HAD TWO OR MORE FALLS IN THE PAST YEAR OR ANY FALL WITH INJURY IN T HE PAST YEAR?: No PRIOR SURGERY. DID THE PATIENT HAVE MAJOR SURGERY DURING THE 100 DAYS PRIOR TO ADMISSION?: No THERAPY NOTES FROM ACUTE CARE: Attached. SPECIAL NEEDS: - Safety Concerns Skin breakdown precautions needed due to skin breakdown risk PATIENT NEEDS ACTIVE AND ONGOING THERAPEUTIC INTERVENTION OF MULTIPLE THERAPY DISCIPLINES, INCLUDING: - Dietary and Nutrition Adequate Nutrition. Nutritional Education. Nutritional Supplements. PATIENT NEEDS CLOSE MEDICAL SUPERVISION BY A REHABILITATION PHYSICIAN FOR: Coordination of Treatment Team PATIENT REQUIRES 24X7 REHAB NURSING FOR MEDICAL AND FUNCTIONAL MGT. OF THE FOLLOWING DEFICITS: Disease Management Medication Management Patient/Family Education Providing Safe Environment PATIENT REQUIRES INTENSIVE, COORDINATED INTERDISCIPLINARY APPROACH TO REHAB: Arranging Home Equipment/Services Discharge Planning Family Intervention/Training Service Loss Control Consultant/Case Management PATIENT REHAB POTENTIAL: Braeden HARRISON is able and expected to receive 3 hours of individualized therapy daily on at least 5 of e very 7 days Braeden TERRY's prognosis for significant practical improvement within a reasonable period of time appea rs Good Expected level of measurable improvement will be of a practical value to Braeden TERRY's functional capa city or adaptations to impairments Has a viable Discharge Plan Medically appropriate; condition is sufficiently stable to participate in intensive rehab program DISCHARGE PLAN: - Estimated Length of Stay (days) 13. - Consensus on plan Discharge plan has been discussed with primary caregiver. Patient/Family is in agreement with the emre n. Primary caregiver is in agreement with the plan. - Patient/Family Goals Return home independently. - Planned Living Setting Upon Discharge Home, to live with Family/Relatives. Transitional Living. RECOMMENDED CARE LEVEL: IRF RECOMMENDATION DETAILS: Recommended Admission to Comprehensive Rehabilitation Program to Increase Functional White SCREENER'S COMPLETENESS CONFIRMATION: - Screening Confirmation The patient data collection on this preadmission screening form is finished PHYSICIANS REVIEW AND ADMISSION DETERMINATION Admit - Based on my review of the Pre-Admission Screening results, in my medical judgment and experie nce, I concur with the findings and recommend admission to [facility], as this patient requires an IRF level of care. SIGNATURE PANEL: Pneumatic Press Hand - [electronically] signed by Eliane Noyola Software Lead on 01/31/2020 at 14:48 (CS T) Pneumatic Press Hand - [electronically] signed by Nanci Nuno RN on 01/31/2020 at 17:52 (YACHT CAPTAIN) Physician Reviewer - [electronically] signed by Dr. Jose Healy M.D. on 01/31/2020 at 18:03 (YACHT CAPTAIN )
--- NOTE | 2020-02-01 12:01 | FAST ---
PT QI REPORT FORM ENCOUNTER DATE AND TIME: 02/01/2020 08:00 (AIRPORT GUIDE) NAME IDANIA TERRY DATE OF : 1945 DATE OF ADMISSION: 01/31/2020 18:30 ([facility]IR[facility] GUIDE) PHONE: AGE: 75 N# [id number] GENDER: Male ENCOUNTER PHYSICIAN: Dr. Jose Healy M.D. ADMISSION DIAGNOSIS: - Debility 16 - Debility (16) DEBILITY. AMS, UTI,ANEMIA. ROLL LEFT AND RIGHT: ROLL LEFT AND RIGHT - STEP 1: Does the patient complete the activity by him/herself with no assistance (physical, verbal/nonverbal cueing, setup/clean-up)? No. ROLL LEFT AND RIGHT - STEP 2: Does the patient need only setup/clean-up assistance from one helper? No. ROLL LEFT AND RIGHT - STEP 3: Does the patient need only verbal/nonverbal cueing or touching/steadying/contact guard assistance fro m one helper? Yes. 1. [id number] ADMISSION PERFORMANCE: Supervision or touching assistance CODE: 04 SIT TO LYING: SIT TO LYING - STEP 1: Does the patient complete the activity by him/herself with no assistance (physical, verbal/nonverbal cueing, setup/clean-up)? No. SIT TO LYING - STEP 2: Does the patient need only setup/clean-up assistance from one helper? No. SIT TO LYING - STEP 3: Does the patient need only verbal/nonverbal cueing or touching/steadying/contact guard assistance fro m one helper? Yes. 1. [id number] ADMISSION PERFORMANCE: Supervision or touching assistance CODE: 04 LYING TO SITTING: LYING TO SITTING ON SIDE OF BED - STEP 1: Does the patient complete the activity by him/herself with no assistance (physical, verbal/nonverbal cueing, setup/clean-up)? No. LYING TO SITTING ON SIDE OF BED - STEP 2: Does the patient need only setup/clean-up assistance from one helper? No. LYING TO SITTING ON SIDE OF BED - STEP 3: Does the patient need only verbal/nonverbal cueing or touching/steadying/contact guard assistance fro m one helper? Yes. 1. [id number] ADMISSION PERFORMANCE: Supervision or touching assistance CODE: 04 SIT TO STAND: SIT TO STAND - STEP 1: Does the patient complete the activity by him/herself with no assistance (physical, verbal/nonverbal cueing, setup/clean-up)? No. SIT TO STAND - STEP 2: Does the patient need only setup/clean-up assistance from one helper? No. SIT TO STAND - STEP 3: Does the patient need only verbal/nonverbal cueing or touching/steadying/contact guard assistance fro m one helper? Yes. 1. [id number] ADMISSION PERFORMANCE: Supervision or touching assistance CODE: 04 TRANSFERS: BED, CHAIR: CHAIR/[id number] TRANSFER - STEP 1: Does the patient complete the activity by him/herself with no assistance (physical, verbal/nonverbal cueing, setup/clean-up)? No. CHAIR/[id number] TRANSFER - STEP 2: Does the patient need only setup/clean-up assistance from one helper? No. CHAIR/[id number] TRANSFER - STEP 3: Does the patient need only verbal/nonverbal cueing or touching/steadying/contact guard assistance fro m one helper? Yes. 1. [id number] ADMISSION PERFORMANCE: Supervision or touching assistance CODE: TRANSFER TOILET: TOILET TRANSFER - STEP 1: Does the patient complete the activity by him/herself with no assistance (physical, verbal/nonverbal cueing, setup/clean-up)? No. TOILET TRANSFER - STEP 2: Does the patient need only setup/clean-up assistance from one helper? No. TOILET TRANSFER - STEP 3: Does the patient need only verbal/nonverbal cueing or touching/steadying/contact guard assistance fro m one helper? Yes. 1. [id number] ADMISSION PERFORMANCE: Supervision or touching assistance CODE: 04 TRANSFERS: CAR: CAR TRANSFER - STEP 1: Does the patient complete the activity by him/herself with no assistance (physical, verbal/nonverbal cueing, setup/clean-up)? No. CAR TRANSFER - STEP 2: Does the patient need only setup/clean-up assistance from one helper? No. CAR TRANSFER - STEP 3: Does the patient need only verbal/nonverbal cueing or touching/steadying/contact guard assistance fro m one helper? Yes. 1. [id number] ADMISSION PERFORMANCE: Supervision or touching assistance CODE: WALK 10 FEET: WALK 10 FEET - STEP 1: Does the patient complete the activity by him/herself with no assistance (physical, verbal/nonverbal cueing, setup/clean-up)? No. WALK 10 FEET - STEP 2: Does the patient need only setup/clean-up assistance from one helper? No. WALK 10 FEET - STEP 3: Does the patient need only verbal/nonverbal cueing or touching/steadying/contact guard assistance fro m one helper? Yes. 1. [id number] ADMISSION PERFORMANCE: Supervision or touching assistance CODE: 04 WALK 50 FEET: WALK 50 FEET - STEP 1: Does the patient complete the activity by him/herself with no assistance (physical, verbal/nonverbal cueing, setup/clean-up)? No. WALK 50 FEET - STEP 2: Does the patient need only setup/clean-up assistance from one helper? No. WALK 50 FEET - STEP 3: Does the patient need only verbal/nonverbal cueing or touching/steadying/contact guard assistance fro m one helper? Yes. 1. [id number] ADMISSION PERFORMANCE: Supervision or touching assistance CODE: WALK 150 FEET: WALK 150 FEET - STEP 1: Does the patient complete the activity by him/herself with no assistance (physical, verbal/nonverbal cueing, setup/clean-up)? No. WALK 150 FEET - STEP 2: Does the patient need only setup/clean-up assistance from one helper? No. WALK 150 FEET - STEP 3: Does the patient need only verbal/nonverbal cueing or touching/steadying/contact guard assistance fro m one helper? Yes. 1. [id number] ADMISSION PERFORMANCE: Supervision or touching assistance CODE: WALK 10 FEET UNEVEN: WALKING 10 FEET ON UNEVEN SURFACES - STEP 1: Does the patient complete the activity by him/herself with no assistance (physical, verbal/nonverbal cueing, setup/clean-up)? No. WALKING 10 FEET ON UNEVEN SURFACES - STEP 2: Does the patient need only setup/clean-up assistance from one helper? No. WALKING 10 FEET ON UNEVEN SURFACES - STEP 3: Does the patient need only verbal/nonverbal cueing or touching/steadying/contact guard assistance fro m one helper? Yes. 1. [id number] ADMISSION PERFORMANCE: Supervision or touching assistance CODE: 04 1 STEP (CURB): 1 STEP CURB - STEP 1: Does the patient complete the activity by him/herself with no assistance (physical, verbal/nonverbal cueing, setup/clean-up)? No. 1 STEP CURB - STEP 2: Does the patient need only setup/clean-up assistance from one helper? No. 1 STEP CURB - STEP 3: Does the patient need only verbal/nonverbal cueing or touching/steadying/contact guard assistance fro m one helper? No. 1 STEP CURB - STEP 4: Does the patient need physical assistance - for example lifting or trunk support from one helper - wi th the helper providing less than half of the effort? Yes. 1. [id number] ADMISSION PERFORMANCE: Partial/moderate assistance CODE: 03 4 STEPS: 4 STEPS - STEP 1: Does the patient complete the activity by him/herself with no assistance (physical, verbal/nonverbal cueing, setup/clean-up)? No. 4 STEPS - STEP 2: Does the patient need only setup/clean-up assistance from one helper? No. 4 STEPS - STEP 3: Does the patient need only verbal/nonverbal cueing or touching/steadying/contact guard assistance fro m one helper? No. 4 STEPS - STEP 4: Does the patient need physical assistance - for example lifting or trunk support from one helper - wi th the helper providing less than half of the effort? Yes. 1. [id number] ADMISSION PERFORMANCE: Partial/moderate assistance CODE: 03 12 STEPS: Not applicable - Not attempted and the patient did not perform this activity prior to the current ill ness, exacerbation, or injury. CODE: 09 PICKING UP OBJECT: PICKING UP OBJECT - STEP 1: Does the patient complete the activity by him/herself with no assistance (physical, verbal/nonverbal cueing, setup/clean-up)? No. PICKING UP OBJECT - STEP 2: Does the patient need only setup/clean-up assistance from one helper? No. PICKING UP OBJECT - STEP 3: Does the patient need only verbal/nonverbal cueing or touching/steadying/contact guard assistance fro m one helper? No. PICKING UP OBJECT - STEP 4: Does the patient need physical assistance - for example lifting or trunk support from one helper - wi th the helper providing less than half of the effort? Yes. 1. [id number] ADMISSION PERFORMANCE: Partial/moderate assistance CODE: 03 DOES THE PATIENT USE A WHEELCHAIR/SCOOTER? Q1. DOES THE PATIENT USE A WHEELCHAIR/SCOOTER?: Yes CODE: 1 WHEEL 50 FEET WITH TWO TURNS: WHEEL 50 FEET WITH TWO TURNS - STEP 1: Does the patient complete the activity by him/herself with no assistance (physical, verbal/nonverbal cueing, setup/clean-up)? No. WHEEL 50 FEET WITH TWO TURNS - STEP 2: Does the patient need only setup/clean-up assistance from one helper? No. WHEEL 50 FEET WITH TWO TURNS - STEP 3: Does the patient need only verbal/nonverbal cueing or touching/steadying/contact guard assistance fro m one helper? Yes. 1. [id number] ADMISSION PERFORMANCE: Supervision or touching assistance CODE: 04 INDICATE THE TYPE OF WHEELCHAIR/SCOOTER USED: RR1. INDICATE THE TYPE OF WHEELCHAIR/SCOOTER USED.: Manual CODE: 1 WHEEL 150 FEET: WHEEL 150 FEET - STEP 1: Does the patient complete the activity by him/herself with no assistance (physical, verbal/nonverbal cueing, setup/clean-up)? No. WHEEL 150 FEET - STEP 2: Does the patient need only setup/clean-up assistance from one helper? No. WHEEL 150 FEET - STEP 3: Does the patient need only verbal/nonverbal cueing or touching/steadying/contact guard assistance fro m one helper? Yes. 1. [id number] ADMISSION PERFORMANCE: Supervision or touching assistance CODE: 04 INDICATE THE TYPE OF WHEELCHAIR/SCOOTER USED: SS1. INDICATE THE TYPE OF WHEELCHAIR/SCOOTER USED.: Manual CODE: 1 BLADDER AND BOWEL: CODE: EXPR CODE: EXPR SIGNATURE PANEL: The following modified sections: 1. [id number] Admission Performance, 1. [id number] Admission Performance, 1. [id number] Admission Performance, 1. [id number] Admission Performance, 1. TG2164M Admission Performance, 1. [id number] Admission Performance, 1. [id number] Admission Performance, 1. [id number] Admission Performance , 1. [id number] Admission Performance, 1. [id number] Admission Performance, 1. [id number] Admission Performanc e, 1. [id number] Admission Performance, 1. [id number] Admission Performance, 1. [id number] Admission Performan ce, 1. RZ2128T Admission Performance, Q1. Does the patient use a wheelchair/scooter?, 1. [id number] Admi ssion Performance, RR1. Indicate the type of wheelchair/scooter used., 1. [id number] Admission Performan ce, Code, SS1. Indicate the type of wheelchair/scooter used. were [electronically] signed by Davie Rao on Sat Feb 01 2020 12:01:37 GMT-0600 (Central Standard Time)
--- NOTE | 2020-02-02 01:43 | R.HP ---
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 board/care, assisted living, [place] [facility], transitional living) PRE-HOSPITAL LIVING WITH Family/Relatives ENCOUNTER PHYSICIAN: Dr. Jose Healy M.D. 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 AMS, UTI,ANEMIA ONSET DATE: 01/16/2020 PRIMARY DIAGNOSIS-RELATED SURGERIES: BLOOD TRANSFUSION HISTORY OF PRESENT ILLNESS (HPI): Pt. is a 75 yo Right-handed male of unknown race. On 01/16/2020 he was admitted to [facility] with diagnosis DEBILITY. AMS, UTI,ANEMIA. His impairment category is Debility 16 - Debility (16). Pre-morbidly, Pt. was independent/mod-I in Safety Awareness, Balance, Transfers Control, and Enduranc e; and he had good Locomotion, Self-Care, Sphincter Control, and Transfers Control. Currently, he has deficits of Locomotion, Balance, Sphincter Control, Transfers Control, and Social C ognition. Pt. is now referred to [facility] for acute in-patient rehabilitation in order to maximize patient's functional independence in activities of daily living, strength, ROM, and mobi lity. Patient has realistic goal of being discharged at assistance level 7-Ind to reside at Home with Fami ly/Relatives. UPDATE: Patient has a hemoglobin of 6.9 and needed a transfusion. He was transferred to the acute floor for the transfusion as he needed telemetry for monitoring as he had a history for VTACH. He is now medically stable and ready for re-admission back to rehab. MEDICATION ALLERGIES: No Known Drug Allergies (NKDA) ENVIRONMENTAL ALLERGIES: - Substance Allergies None Known - Other Allergies None Known PAST MEDICAL HISTORY: HYPERTENSION COPD SVT DIABETES MELLITUS TYPE 2 AAA HISTORY OF BLADDER CANCER CVA AFIB CLL PAST SURGICAL HISTORY: REMOVAL OF THORACIC HEMATOMA BLADDER RESECTION 2X LAMINECTOMY SOCIAL HISTORY: - Home Living Family/Relatives REVIEW OF SYSTEMS: - Gen No Chills Fatigue No Fever - Eyes No Double Vision No itchiness - ENMT No Difficulty Swallowing - CVS No Chest Discomfort No Chest Pain Fatigue No Weight Gain - Resp No Cough No Shortness of Breath - GI Continent No Abdominal Pain No Constipation No Diarrhea - Continent No Kidney Pain No Painful Urination No Urinary Urgency - MSK No Joint Pain No Muscle Cramps Stiffness - Skin No Itching No Rash No Suspicious Lesions - Neuro Coordination Difficulty No Difficulty with Concentration No Memory Loss No Seizures Weakness - Psych No Anxiety No Depression No HIV Exposure No Persistent Infections No Seasonal Allergies - Endo No Cold/Heat Intolerance No Excessive Hunger No Excessive Thirst No Excessive Urination PHYSICAL EXAM - Gen Alert and awake Lying in bed No apparent distress Oriented to: person, time, and place - Skin No skin breakdown. No abnormalities - Eyes No abnormalities - ENMT No abnormalities - Neck No abnormalities - CVS RRR - Chest No abnormalities - Resp No wheezing - Abd Soft - GI Non distended Deferred - No abnormalities - Ext No significant edema - MSK 4/5 weakness in both lower extremities. - Neuro No focal deficits - Psych No abnormalities VITAL SIGNS Temperature: 97.6 F SBP/DBP: 139/69 Pulse: 70 Resp: 16 NURSING: - Shower allowing shower ACTIVITIES OOB only with supervision QI SCORES: - Self-Care A. Eating 04-Supervision or touching assistance B. Oral hygiene 03-Partial/moderate assistance C. Toileting hygiene 03-Partial/moderate assistance E. Shower/bathe self 03-Partial/moderate assistance F. Upper body dressing 03-Partial/moderate assistance G. Lower body dressing 03-Partial/moderate assistance H. Putting on/taking off footwear 88-Not attempted due to medical condition or safety concerns - Mobility A. Roll left and right 03-Partial/moderate assistance B. Sit to lying 03-Partial/moderate assistance C. Lying to sitting on side of bed 03-Partial/moderate assistance D. Sit to stand 03-Partial/moderate assistance E. Chair/nns-bi-wueok transfer 03-Partial/moderate assistance F. Toilet transfer 03-Partial/moderate assistance G. Car transfer 88-Not attempted due to medical condition or safety concerns I. Walk 10 feet 88-Not attempted due to medical condition or safety concerns J. Walk 50 feet with two turns 88-Not attempted due to medical condition or safety concerns K. Walk 150 feet 88-Not attempted due to medical condition or safety concerns L. Walking 10 feet on uneven surfaces 88-Not attempted due to medical condition or safety concerns M. 1 step (curb) 88-Not attempted due to medical condition or safety concerns N. 4 steps 88-Not attempted due to medical condition or safety concerns O. 12 steps 88-Not attempted due to medical condition or safety concerns P. Picking up object 88-Not attempted due to medical condition or safety concerns R. Wheel 50 feet with two turns 88-Not attempted due to medical condition or safety concerns S. Wheel 150 feet 88-Not attempted due to medical condition or safety concerns - Bladder and Bowel Bladder continence Bowel continence - Endurance Fair - Balance Fair - Safety Awareness Fair CURRENT FUNC. DEFICITS: Self-Care, Mobility, Endurance, Balance, and Safety Awareness MEDICATIONS: - Other See attached MAR (Medication Administration Record) ASSESSMENT: Pt. is a 75 yo Right-handed male of unknown race.On 01/16/2020 he was admitted to [facility] with diagnosis DEBILITY. AMS, UTI,ANEMIA.His impairment category is Debility 16 - Debility (16).Pre -morbidly, Pt. was independent/mod-I in Safety Awareness, Balance, Transfers Control, and Endurance; and he had good Locomotion, Self-Care, Sphincter Control, and Transfers Control.Currently, he has def icits of Locomotion, Balance, Sphincter Control, Transfers Control, and Social Cognition.Pt. is now r eferred to [facility] for acute in-patient rehabilitation in order to maximize patient's functional independence in activities of daily living, strength, ROM, and mobility.- Rehab Goal Patient has realistic goal of being discharged at assistance level 7-Ind to reside at Home with Fami ly/Relatives. UPDATE: Patient has a hemoglobin of 6.9 and needed a transfusion. He was transferred to the acute floor for the transfusion as he needed telemetry for monitoring as he had a history for VTACH. He is now medically stable and ready for re-admission back to rehab.REHAB PLAN: - Physical Therapy Gait dysfunction - to improve, our physical therapists will perform initial evaluation of pt's status upon admission and devise an individualized program for Gait Training, and Wheel Chair mobility Inability to transfer - to improve, our physical therapists will perform initial evaluation of pt's s tatus upon admission and devise an individualized program for Bed mobility Need for home safety evaluation - to improve, our physical therapists will perform initial evaluation of pt's status upon admission and devise an individualized program for Home Evaluation Need in caregiver upon discharge - to improve, our physical therapists will perform initial evaluatio n of pt's status upon admission and devise an individualized program for Caregiver Training Edema - to improve, our physical therapists will perform initial evaluation of pt's status upon admi ssion and devise an individualized program for Elevation Training, and Lymphedema Therapy New precaution - to improve, our physical therapists will perform initial evaluation of pt's status u sea admission and devise an individualized program for Patient precaution education Poor balance - to improve, our physical therapists will perform initial evaluation of pt's status upo n admission and devise an individualized program for Balance Training Weakness - to improve, our physical therapists will perform initial evaluation of pt's status upon ad mission and devise an individualized program for Aquatic Therapy, Neuromuscular Reeducation, and Stre ngthening Achieving independence - to improve, our physical therapists will perform initial evaluation of pt's status upon admission and devise an individualized program for Community Reintegration Activities - Occupational Therapy Cognitive deficits - to improve, our occupation therapists will perform initial evaluation of pt's st atus upon admission and devise an individualized program for Cognition - orientation Need for career services officer - to improve, our occupation therapists will perform initial evaluation of pt's s tatus upon admission and devise an individualized program for Caregiver Training Weakness - to improve, our occupation therapists will perform initial evaluation of pt's status upon admission and devise an individualized program for Aquatic Therapy, Balance, Endurance, UE ROM, and U E strengthening MEDICAL PLAN: - Diet Type Start Regular - Diet - Liquid Texture Start Regular - Tube Feed Start N/A - Other See attached MAR (Medication Administration Record) - Diet - Solid Texture Regular - Shower shower DISCHARGE PLAN: - Estimated Length of Stay (days) 13. - Consensus on plan Discharge plan has been discussed with primary caregiver. Patient/Family is in agreement with the emre n. Primary caregiver is in agreement with the plan. - Patient/Family Goals Return home independently. - Planned Living Setting Upon Discharge Home, to live with Family/Relatives. Transitional Living. SIGNATURE PANEL: (HOME ENERGY RATER)
--- NOTE | 2020-02-02 01:45 | PAPE ---
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 Jose Healy M.D. ADMISSION DIAGNOSIS: DEBILITY. AMS, UTI,ANEMIA ONSET DATE 01/16/2020 POST-ADMISSION FUNCTIONAL/MEDICAL STATUS: - Bladder Same accident frequency: Ind - No accidents in the past 7 days - Bowel Same accident frequency: Ind - No accidents in the past 7 days - Walking Same score based on distance walked: 0(N/A) Same score based on distance walked: 1(<=50ft) - Wheelchair Same score based on distance traveled: 0(N/A) STATUS CHANGE EVALUATION: No change in Functional or Medical Status is identified compared with Pre-Admission screening. PATIENT NEEDS CLOSE MEDICAL SUPERVISION BY A REHABILITATION PHYSICIAN FOR: Coordination of Treatment Team PATIENT REQUIRES 24X7 REHAB NURSING FOR MEDICAL AND FUNCTIONAL MGT. OF THE FOLLOWING DEFICITS: Disease Management Medication Management Patient/Family Education Providing Safe Environment PATIENT REQUIRES INTENSIVE, COORDINATED INTERDISCIPLINARY APPROACH TO REHAB: Arranging Home Equipment/Services Discharge Planning Family Intervention/Training Bear Keeper/Case Management LIST OF IDENTIFIED AND POTENTIAL PROBLEMS: Alteration in leisure activities Bladder, Incontinence Bowel, Incontinence Infection, Actual or Potential Mobility Impaired Pain, Alteration in Comfort Self Care Deficit Skin Integrity, Actual or Potential Urinary Tract Infection (UTI), Actual or Potential PATIENT COULD BE AT RISK FOR COMPLICATIONS FROM ADVERSE MEDICAL CONDITIONS DUE TO HIS/HER COMORBIDITI ES AND THE RIGORS OF THE INTENSIVE REHABILLITATION PROGRAM. METHODS OR INTERVENTIONS TO AVOID COMPLIC ATIONS INCLUDE: - Infection Clinical staff to assess and manage the signs and symptoms of infection including fever, redness, war mth, etc. - Urinary Tract Infection - Falls Patient will be evaluated for Fall Precautions and will be placed on Fall Precautions as indicated pe r protocol. - Skin Breakdown Nursing will assess skin daily using assessment tool and will place on Skin Breakdown Precautions as indicated per protocol. - Pain Clinical staff may employ non-medication methods such as massage, distraction, decrease stimulus, etc . as needed. Clinical staff will assess patient's pain level every shift per protocol to assess and e nsure pain management effectiveness. Medications will be given and the pain level re-assessed. PRELIMINARY PLAN OF CARE: - Physical Therapy Patient needs Physical Therapy for a daily minimum of 1.5 hours at least 5 out of 7 days, to improve: Mobility, Strengthening, Transfers, Stretching, ROM, Endurance, Ability to manage stairs, Gait, and Balance. - Rehabilitation Nursing Patient requires 24x7 Rehabilitation Nursing for: Pain Issues, Identifying and preventing risk factor s, Monitoring and reporting current medical conditions, Assisting with ambulation and transfer, Jose ting with all ADL-s, Teaching patients about disease process and medications, Family teaching, Provid ing safe environment, Bowel and Bladder Issues, Skin Integrity, and Medication Management. Patient needs Bear Keeper and/or Case Management for: Discharge Planning, Arranging Home Equipmen t or Services, and Family Interventions. - Dietary and Nutrition Services Patient needs Dietary and Nutrition Services for: Adequate Nutrition, Nutritional Supplements, and Nu tritional Education. - Occupational Therapy Patient needs Occupational Therapy for a daily minimum of 1.5 hours at least 5 out of 7 days, to impr ove Activities of Daily Living, including: Eating, Grooming, Bathing, Dressing, Toileting, Toilet Tra nsfers, Community Reintegration, Higher functional activities, Adaptive Equipment, Splinting, Househo ld Tasks, and Other activities as determined. QI SCORES: - Self-Care A. Eating 04-Supervision or touching assistance B. Oral hygiene 03-Partial/moderate assistance C. Toileting hygiene 03-Partial/moderate assistance E. Shower/bathe self 03-Partial/moderate assistance F. Upper body dressing 03-Partial/moderate assistance G. Lower body dressing 03-Partial/moderate assistance H. Putting on/taking off footwear 88-Not attempted due to medical condition or safety concerns - Mobility A. Roll left and right 03-Partial/moderate assistance B. Sit to lying 03-Partial/moderate assistance C. Lying to sitting on side of bed 03-Partial/moderate assistance D. Sit to stand 03-Partial/moderate assistance E. Chair/rbi-dz-mpeey transfer 03-Partial/moderate assistance F. Toilet transfer 03-Partial/moderate assistance G. Car transfer 88-Not attempted due to medical condition or safety concerns I. Walk 10 feet 88-Not attempted due to medical condition or safety concerns J. Walk 50 feet with two turns 88-Not attempted due to medical condition or safety concerns K. Walk 150 feet 88-Not attempted due to medical condition or safety concerns L. Walking 10 feet on uneven surfaces 88-Not attempted due to medical condition or safety concerns M. 1 step (curb) 88-Not attempted due to medical condition or safety concerns N. 4 steps 88-Not attempted due to medical condition or safety concerns O. 12 steps 88-Not attempted due to medical condition or safety concerns P. Picking up object 88-Not attempted due to medical condition or safety concerns R. Wheel 50 feet with two turns 88-Not attempted due to medical condition or safety concerns S. Wheel 150 feet 88-Not attempted due to medical condition or safety concerns - Bladder and Bowel Bladder continence Bowel continence - Endurance Fair - Balance Fair - Safety Awareness Fair POTENTIAL FUNCTIONAL GOALS FOR PATIENT TO ACHIEVE BY DISCHARGE: - Safety Precaution Patient will remain free from falls or injury at time of discharge. - Bed Mobility Patient will perform bed mobility at 4-Candace level of assistance. - Transfers Patient will complete transfers from bed to chair at 4-Candace level of assistance. - Mobility Patient will ambulate 150 ft with 4-Candace level of assistance with RW. PATIENT REHAB POTENTIAL Braeden TERRY is able and expected to receive 3 hours of individualized therapy daily on at least 5 of e very 7 days Braeden TERRY's prognosis for significant practical improvement within a reasonable period of time appea rs Good Expected level of measurable improvement will be of a practical value to Braeden TERRY's functional capa city or adaptations to impairments Has a viable Discharge Plan Medically appropriate; condition is sufficiently stable to participate in intensive rehab program DISCHARGE PLAN: - Estimated Length of Stay (days) 13. - Consensus on plan Discharge plan has been discussed with primary caregiver. Patient/Family is in agreement with the emre n. Primary caregiver is in agreement with the plan. - Patient/Family Goals Return home independently. - Planned Living Setting Upon Discharge Home, to live with Family/Relatives. Transitional Living. CONCLUSION ON REHABILITATION NECESSITY: I have evaluated patient's pre-admission functional status and, comparing it to the patient's post-ad mission functional status now, I conclude that the pre-admission assessment was accurate. Patient's c ondition on admission supports the medical necessity of admission to IR[facility]. It is safe to proceed with patient's therapy program. 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
--- NOTE | 2020-02-03 17:38 | R.PN ---
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 AMS, UTI,ANEMIACHIEF COMPLAINT: Debility and CLL SUBJECTIVE: Pt denied any depression. Pt denied any Shortness of Breath. Diffuse weakness, poor balance and coordination. However, he ambulated 750' with standby assistance t o independence using a rolling walker. He did fail a MBS with moderate impairment. Recommended necta r thick liquids and mechanical soft diet. WBC elevated to 111.5 due to CLL and possible Esbl E-coli UTI. He is on bactrim DS bid for 1/5 days. Will hold D/C for 3 days for speech therapy and possible repeat MBS. VITAL SIGNS Temperature: 97.6 F SBP/DBP: 139/69 Pulse: 70 Resp: 16 MEDICATION ALLERGIES: No Known Drug Allergies (NKDA) ENVIRONMENTAL ALLERGIES: - Substance Allergies None Known - Other Allergies None Known NURSING: - Shower allowing shower ACTIVITIES OOB only with supervision THERAPIES: - Dietary and Nutrition Adequate Nutrition. Nutritional Education. Nutritional Supplements. PHYSICAL EXAM - Gen Alert and awake Lying in bed No apparent distress Oriented to: person, time, and place - Skin No skin breakdown. No abnormalities - Eyes No abnormalities - ENMT No abnormalities - Neck No abnormalities - CVS RRR - Chest No abnormalities - Resp No wheezing - Abd Soft - GI Non distended Deferred - No abnormalities - Ext No significant edema - MSK 4/5 weakness in both lower extremities. - Neuro No focal deficits - Psych No abnormalities ASSESSMENT: Pt. is a 75 yo Right-handed male of unknown race.On 01/16/2020 he was admitted to [facility] with diagnosis DEBILITY. AMS, UTI,ANEMIA.His impairment category is Debility 16 - Debility (16).Pre -morbidly, Pt. was independent/mod-I in Safety Awareness, Balance, Transfers Control, and Endurance; and he had good Locomotion, Self-Care, Sphincter Control, and Transfers Control.Currently, he has def icits of Locomotion, Balance, Sphincter Control, Transfers Control, and Social Cognition.Pt. is now r eferred to [facility] for acute in-patient rehabilitation in order to maximize patient's functional independence in activities of daily living, strength, ROM, and mobility.- Rehab Goal Patient has realistic goal of being discharged at assistance level 7-Ind to reside at Home with Fami ly/Relatives. MDM/PLAN: - Physical Therapy Gait dysfunction - to improve, our physical therapists will perform initial evaluation of pt's statu s upon admission and devise an individualized program for Gait Training, and Wheel Chair mobility Inability to transfer - to improve, our physical therapists will perform initial evaluation of pt's status upon admission and devise an individualized program for Bed mobility Need for home safety evaluation - to improve, our physical therapists will perform initial evaluatio n of pt's status upon admission and devise an individualized program for Home Evaluation Need in caregiver upon discharge - to improve, our physical therapists will perform initial evaluati on of pt's status upon admission and devise an individualized program for Caregiver Training Edema - to improve, our physical therapists will perform initial evaluation of pt's status upon admis samantha and devise an individualized program for Elevation Training, and Lymphedema Therapy New precaution - to improve, our physical therapists will perform initial evaluation of pt's status upon admission and devise an individualized program for Patient precaution education Poor balance - to improve, our physical therapists will perform initial evaluation of pt's status up on admission and devise an individualized program for Balance Training Weakness - to improve, our physical therapists will perform initial evaluation of pt's status upon a dmission and devise an individualized program for Aquatic Therapy, Neuromuscular Reeducation, and Str engthening Achieving independence - to improve, our physical therapists will perform initial evaluation of pt's status upon admission and devise an individualized program for Community Reintegration Activities - Occupational Therapy Cognitive deficits - to improve, our occupation therapists will perform initial evaluation of pt's s tatus upon admission and devise an individualized program for Cognition - orientation 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 - to improve, our occupation therapists will perform initial evaluation of pt's status upon admission and devise an individualized program for Caregiver Training Weakness - to improve, our occupation therapists will perform initial evaluation of pt's status upon admission and devise an individualized program for Aquatic Therapy, Balance, Endurance, UE ROM, and UE strengthening - Other See attached MAR (Medication Administration Record) - Diet Type Continue Regular - Diet - Liquid Texture Continue Regular - Tube Feed Continue N/A - Diet - Solid Texture Continue Regular - Shower allowing shower FUNCTIONAL STATUS: UPDATED AT WEEKLY TEAM CONFERENCE - Bladder Same accident frequency: 7-Ind - No accidents in the past 7 days - Bowel Same accident frequency: 7-Ind - No accidents in the past 7 days - Walking Same score based on distance walked: 0(N/A) Same score based on distance walked: 1(<=50ft) - Wheelchair Same score based on distance traveled: 0(N/A) FUNCTIONAL STATUS: - Self-Care A. Eating Candace B. Grooming Beatrice C. Bathing Candace D. Dressing - Upper sup E. Dressing - Lower Candace F. Toileting Candace - Sphincter Control G. Bladder control Ind H. Bowel control Ind - Transfers Control I. Bed/Chair/Wheelchair sup J. Toilet sup K. Tub/Shower Candace - Locomotion L. Walk/Wheelchair (B) sup M. Stairs Candace - Communication N. Comprehension (B) Beatrice O. Expression (B) Ind - Social Cognition P. Social Interaction Beatrice Q. Problem Solving Beatrice R. Memory Beatrice - Endurance Good - Balance Fair - Safety Awareness Good QI SCORES: - Self-Care A. Eating 04-Supervision or touching assistance B. Oral hygiene 03-Partial/moderate assistance C. Toileting hygiene 03-Partial/moderate assistance E. Shower/bathe self 03-Partial/moderate assistance F. Upper body dressing 03-Partial/moderate assistance G. Lower body dressing 03-Partial/moderate assistance H. Putting on/taking off footwear 88-Not attempted due to medical condition or safety concerns - Mobility A. Roll left and right 03-Partial/moderate assistance B. Sit to lying 03-Partial/moderate assistance C. Lying to sitting on side of bed 03-Partial/moderate assistance D. Sit to stand 03-Partial/moderate assistance E. Chair/xzy-mr-oimhe transfer 03-Partial/moderate assistance F. Toilet transfer 03-Partial/moderate assistance G. Car transfer 88-Not attempted due to medical condition or safety concerns I. Walk 10 feet 88-Not attempted due to medical condition or safety concerns J. Walk 50 feet with two turns 88-Not attempted due to medical condition or safety concerns K. Walk 150 feet 88-Not attempted due to medical condition or safety concerns L. Walking 10 feet on uneven surfaces 88-Not attempted due to medical condition or safety concerns M. 1 step (curb) 88-Not attempted due to medical condition or safety concerns N. 4 steps 88-Not attempted due to medical condition or safety concerns O. 12 steps 88-Not attempted due to medical condition or safety concerns P. Picking up object 88-Not attempted due to medical condition or safety concerns R. Wheel 50 feet with two turns 88-Not attempted due to medical condition or safety concerns S. Wheel 150 feet 88-Not attempted due to medical condition or safety concerns - Bladder and Bowel Bladder continence Bowel continence - Endurance Fair - Balance Fair - Safety Awareness Fair CURRENT [facility]. DEFICITS: Self-Care, Mobility, Endurance, Balance, and Safety Awareness SIGNATURE PANEL: (FEATHER STITCHER)
--- NOTE | 2020-02-04 17:49 | R.PN ---
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 AMS, UTI,ANEMIACHIEF COMPLAINT: Debility and CLL SUBJECTIVE: Pt denied any depression. Pt denied any Shortness of Breath. Diffuse weakness, poor balance and coordination. However, he ambulated 700' with standby assistance t o independence using a rolling walker. He failed a MBS with moderate impairment. He refused recommen ded nectar thick liquids and mechanical soft diet. WBC elevated to 111.5 due to CLL and possible Esbl E-coli UTI. He is on bactrim DS bid for 2/5 days. Glucose 106 to 152. Will hold D/C for 3 days for speech therapy and possible repeat MBS. VITAL SIGNS Temperature: 98.6 F SBP/DBP: 123/71 Pulse: 67 Resp: 16 MEDICATION ALLERGIES: No Known Drug Allergies (NKDA) ENVIRONMENTAL ALLERGIES: - Substance Allergies None Known - Other Allergies None Known NURSING: - Shower allowing shower ACTIVITIES OOB only with supervision THERAPIES: - Dietary and Nutrition Adequate Nutrition. Nutritional Education. Nutritional Supplements. PHYSICAL EXAM - Gen Alert and awake Lying in bed No apparent distress Oriented to: person, time, and place - Skin No skin breakdown. No abnormalities - Eyes No abnormalities - ENMT No abnormalities - Neck No abnormalities - CVS RRR - Chest No abnormalities - Resp No wheezing - Abd Soft - GI Non distended Deferred - No abnormalities - Ext No significant edema - MSK 4/5 weakness in both lower extremities. - Neuro No focal deficits - Psych No abnormalities ASSESSMENT: Pt. is a 75 yo Right-handed male of unknown race.On 01/16/2020 he was admitted to [facility] with diagnosis DEBILITY. AMS, UTI,ANEMIA.His impairment category is Debility 16 - Debility (16).Pre -morbidly, Pt. was independent/mod-I in Safety Awareness, Balance, Transfers Control, and Endurance; and he had good Locomotion, Self-Care, Sphincter Control, and Transfers Control.Currently, he has def icits of Locomotion, Balance, Sphincter Control, Transfers Control, and Social Cognition.Pt. is now r eferred to [facility] for acute in-patient rehabilitation in order to maximize patient's functional independence in activities of daily living, strength, ROM, and mobility.- Rehab Goal Patient has realistic goal of being discharged at assistance level 7-Ind to reside at Home with Fami ly/Relatives. MDM/PLAN: - Physical Therapy Gait dysfunction - to improve, our physical therapists will perform initial evaluation of pt's statu s upon admission and devise an individualized program for Gait Training, and Wheel Chair mobility Inability to transfer - to improve, our physical therapists will perform initial evaluation of pt's status upon admission and devise an individualized program for Bed mobility Need for home safety evaluation - to improve, our physical therapists will perform initial evaluatio n of pt's status upon admission and devise an individualized program for Home Evaluation Need in caregiver upon discharge - to improve, our physical therapists will perform initial evaluati on of pt's status upon admission and devise an individualized program for Caregiver Training Edema - to improve, our physical therapists will perform initial evaluation of pt's status upon admi ssion and devise an individualized program for Elevation Training, and Lymphedema Therapy New precaution - to improve, our physical therapists will perform initial evaluation of pt's status upon admission and devise an individualized program for Patient precaution education Poor balance - to improve, our physical therapists will perform initial evaluation of pt's status up on admission and devise an individualized program for Balance Training Weakness - to improve, our physical therapists will perform initial evaluation of pt's status upon a dmission and devise an individualized program for Aquatic Therapy, Neuromuscular Reeducation, and Str engthening Achieving independence - to improve, our physical therapists will perform initial evaluation of pt's status upon admission and devise an individualized program for Community Reintegration Activities - Occupational Therapy Cognitive deficits - to improve, our occupation therapists will perform initial evaluation of pt's s tatus upon admission and devise an individualized program for Cognition - orientation Need for wound care rn - to improve, our occupation therapists will perform initial evaluation of pt's status upon admission and devise an individualized program for Caregiver Training Weakness - to improve, our occupation therapists will perform initial evaluation of pt's status upon admission and devise an individualized program for Aquatic Therapy, Balance, Endurance, UE ROM, and UE strengthening - Other See attached MAR (Medication Administration Record) - Diet Type Continue Regular - Diet - Liquid Texture Continue Regular - Tube Feed Continue N/A - Diet - Solid Texture Continue Regular - Shower allowing shower FUNCTIONAL STATUS: UPDATED AT WEEKLY TEAM CONFERENCE - Bladder Same accident frequency: 7-Ind - No accidents in the past 7 days - Bowel Same accident frequency: 7-Ind - No accidents in the past 7 days - Walking Same score based on distance walked: 0(N/A) Same score based on distance walked: 1(<=50ft) - Wheelchair Same score based on distance traveled: 0(N/A) FUNCTIONAL STATUS: - Self-Care A. Eating Candace B. Grooming Beatrice C. Bathing Candace D. Dressing - Upper sup E. Dressing - Lower Candace F. Toileting Candace - Sphincter Control G. Bladder control Ind H. Bowel control Ind - Transfers Control I. Bed/Chair/Wheelchair sup J. Toilet sup K. Tub/Shower Candace - Locomotion L. Walk/Wheelchair (B) sup M. Stairs Candace - Communication N. Comprehension (B) Beatrice O. Expression (B) Ind - Social Cognition P. Social Interaction Beatrice Q. Problem Solving Beatrice R. Memory Beatrice - Endurance Good - Balance Fair - Safety Awareness Good QI SCORES: - Self-Care A. Eating 04-Supervision or touching assistance B. Oral hygiene 03-Partial/moderate assistance C. Toileting hygiene 03-Partial/moderate assistance E. Shower/bathe self 03-Partial/moderate assistance F. Upper body dressing 03-Partial/moderate assistance G. Lower body dressing 03-Partial/moderate assistance H. Putting on/taking off footwear 88-Not attempted due to medical condition or safety concerns - Mobility A. Roll left and right 03-Partial/moderate assistance B. Sit to lying 03-Partial/moderate assistance C. Lying to sitting on side of bed 03-Partial/moderate assistance D. Sit to stand 03-Partial/moderate assistance E. Chair/[id number] transfer 03-Partial/moderate assistance F. Toilet transfer 03-Partial/moderate assistance G. Car transfer 88-Not attempted due to medical condition or safety concerns I. Walk 10 feet 88-Not attempted due to medical condition or safety concerns J. Walk 50 feet with two turns 88-Not attempted due to medical condition or safety concerns K. Walk 150 feet 88-Not attempted due to medical condition or safety concerns L. Walking 10 feet on uneven surfaces 88-Not attempted due to medical condition or safety concerns M. 1 step (curb) 88-Not attempted due to medical condition or safety concerns N. 4 steps 88-Not attempted due to medical condition or safety concerns O. 12 steps 88-Not attempted due to medical condition or safety concerns P. Picking up object 88-Not attempted due to medical condition or safety concerns R. Wheel 50 feet with two turns 88-Not attempted due to medical condition or safety concerns S. Wheel 150 feet 88-Not attempted due to medical condition or safety concerns - Bladder and Bowel Bladder continence Bowel continence - Endurance Fair - Balance Fair - Safety Awareness Fair CURRENT [facility]. 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
--- NOTE | 2020-02-05 17:34 | R.PN ---
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 AMS, UTI,ANEMIACHIEF COMPLAINT: Debility and CLL SUBJECTIVE: Pt denied any depression. Pt denied any Shortness of Breath. WBC elevated to 85.5 due to CLL and Hgb decreased to 6.8. He will get 2 units of PRBCs. sbl E-coli [place] I. He is on bactrim DS bid for 3/5 days. Glucose 106 to 121. Will hold D/C for 3 days for speech therapy and possible repeat MBS. Therapy held today due to severe anemia. VITAL SIGNS Temperature: 98.0 F SBP/DBP: 123/68 Pulse: 64 Resp: 16 MEDICATION ALLERGIES: No Known Drug Allergies (NKDA) ENVIRONMENTAL ALLERGIES: - Substance Allergies None Known - Other Allergies None Known NURSING: - Shower allowing shower ACTIVITIES OOB only with supervision THERAPIES: - Dietary and Nutrition Adequate Nutrition. Nutritional Education. Nutritional Supplements. PHYSICAL EXAM - Gen Alert and awake Lying in bed No apparent distress Oriented to: person, time, and place - Skin No skin breakdown. No abnormalities - Eyes No abnormalities - ENMT No abnormalities - Neck No abnormalities - CVS RRR - Chest No abnormalities - Resp No wheezing - Abd Soft - GI Non distended Deferred - No abnormalities - Ext No significant edema - MSK 4/5 weakness in both lower extremities. - Neuro No focal deficits - Psych No abnormalities ASSESSMENT: Pt. is a 75 yo Right-handed male of unknown race.On 01/16/2020 he was admitted to [facility] with diagnosis DEBILITY. AMS, UTI,ANEMIA.His impairment category is Debility 16 - Debility (16).Pre -morbidly, Pt. was independent/mod-I in Safety Awareness, Balance, Transfers Control, and Endurance; and he had good Locomotion, Self-Care, Sphincter Control, and Transfers Control.Currently, he has def icits of Locomotion, Balance, Sphincter Control, Transfers Control, and Social Cognition.Pt. is now r eferred to [facility] for acute in-patient rehabilitation in order to maximize patient's functional independence in activities of daily living, strength, ROM, and mobility.- Rehab Goal Patient has realistic goal of being discharged at assistance level 7-Ind to reside at Home with Fami ly/Relatives. MDM/PLAN: - Physical Therapy Gait dysfunction - to improve, our physical therapists will perform initial evaluation of pt's statu s upon admission and devise an individualized program for Gait Training, and Wheel Chair mobility Inability to transfer - to improve, our physical therapists will perform initial evaluation of pt's status upon admission and devise an individualized program for Bed mobility Need for home safety evaluation - to improve, our physical therapists will perform initial evaluatio n of pt's status upon admission and devise an individualized program for Home Evaluation Need in caregiver upon discharge - to improve, our physical therapists will perform initial evaluati on of pt's status upon admission and devise an individualized program for Caregiver Training Edema - to improve, our physical therapists will perform initial evaluation of pt's status upon admi ssion and devise an individualized program for Elevation Training, and Lymphedema Therapy New precaution - to improve, our physical therapists will perform initial evaluation of pt's status upon admission and devise an individualized program for Patient precaution education Poor balance - to improve, our physical therapists will perform initial evaluation of pt's status up on admission and devise an individualized program for Balance Training Weakness - to improve, our physical therapists will perform initial evaluation of pt's status upon a dmission and devise an individualized program for Aquatic Therapy, Neuromuscular Reeducation, and Str engthening Achieving independence - to improve, our physical therapists will perform initial evaluation of pt's status upon admission and devise an individualized program for Community Reintegration Activities - Occupational Therapy Cognitive deficits - to improve, our occupation therapists will perform initial evaluation of pt's s tatus upon admission and devise an individualized program for Cognition - orientation Need for gericare aide - to improve, our occupation therapists will perform initial evaluation of pt's status upon admission and devise an individualized program for Caregiver Training Weakness - to improve, our occupation therapists will perform initial evaluation of pt's status upon admission and devise an individualized program for Aquatic Therapy, Balance, Endurance, UE ROM, and UE strengthening - Other See attached MAR (Medication Administration Record) - Diet Type Continue Regular - Diet - Liquid Texture Continue Regular - Tube Feed Continue N/A - Diet - Solid Texture Continue Regular - Shower allowing shower FUNCTIONAL STATUS: UPDATED AT WEEKLY TEAM CONFERENCE - Bladder Same accident frequency: 7-Ind - No accidents in the past 7 days - Bowel Same accident frequency: 7-Ind - No accidents in the past 7 days - Walking Same score based on distance walked: 0(N/A) Same score based on distance walked: 1(<=50ft) - Wheelchair Same score based on distance traveled: 0(N/A) FUNCTIONAL STATUS: - Self-Care A. Eating Candace B. Grooming Beatrice C. Bathing Candace D. Dressing - Upper sup E. Dressing - Lower Candace F. Toileting Candace - Sphincter Control G. Bladder control Ind H. Bowel control Ind - Transfers Control I. Bed/Chair/Wheelchair sup J. Toilet sup K. Tub/Shower Candace - Locomotion L. Walk/Wheelchair (B) sup M. Stairs Candace - Communication N. Comprehension (B) Beatrice O. Expression (B) Ind - Social Cognition P. Social Interaction Beatrice Q. Problem Solving Beatrice R. Memory Beatrice - Endurance Good - Balance Fair - Safety Awareness Good QI SCORES: - Self-Care A. Eating 04-Supervision or touching assistance B. Oral hygiene 03-Partial/moderate assistance C. Toileting hygiene 03-Partial/moderate assistance E. Shower/bathe self 03-Partial/moderate assistance F. Upper body dressing 03-Partial/moderate assistance G. Lower body dressing 03-Partial/moderate assistance H. Putting on/taking off footwear 88-Not attempted due to medical condition or safety concerns - Mobility A. Roll left and right 03-Partial/moderate assistance B. Sit to lying 03-Partial/moderate assistance C. Lying to sitting on side of bed 03-Partial/moderate assistance D. Sit to stand 03-Partial/moderate assistance E. Chair/tdh-lc-[id number] transfer 03-Partial/moderate assistance F. Toilet transfer 03-Partial/moderate assistance G. Car transfer 88-Not attempted due to medical condition or safety concerns I. Walk 10 feet 88-Not attempted due to medical condition or safety concerns J. Walk 50 feet with two turns 88-Not attempted due to medical condition or safety concerns K. Walk 150 feet 88-Not attempted due to medical condition or safety concerns L. Walking 10 feet on uneven surfaces 88-Not attempted due to medical condition or safety concerns M. 1 step (curb) 88-Not attempted due to medical condition or safety concerns N. 4 steps 88-Not attempted due to medical condition or safety concerns O. 12 steps 88-Not attempted due to medical condition or safety concerns P. Picking up object 88-Not attempted due to medical condition or safety concerns R. Wheel 50 feet with two turns 88-Not attempted due to medical condition or safety concerns S. Wheel 150 feet 88-Not attempted due to medical condition or safety concerns - Bladder and Bowel Bladder continence Bowel continence - Endurance Fair - Balance Fair - Safety Awareness Fair CURRENT [facility]. 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
--- NOTE | 2020-02-06 14:55 | FAST ---
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 Joes Healy M.D. ADMISSION DIAGNOSIS: - Debility 16 - Debility (16) DEBILITY. AMS, UTI,ANEMIA. EATING: EATING - STEP 1: Does the patient complete the activity by him/herself with no assistance (physical, verbal/nonverbal cueing, setup/clean-up)? No. EATING - STEP 2: Does the patient need only setup/clean-up assistance from one helper? Yes. 1. [id number] ADMISSION PERFORMANCE: Setup or clean-up assistance CODE: 05 ORAL HYGIENE: ORAL HYGIENE - STEP 1: Does the patient complete the activity by him/herself with no assistance (physical, verbal/nonverbal cueing, setup/clean-up)? No. ORAL HYGIENE - STEP 2: Does the patient need only setup/clean-up assistance from one helper? Yes. 1. [id number] ADMISSION PERFORMANCE: Setup or clean-up assistance CODE: 05 TOILETING HYGIENE: TOILETING HYGIENE - STEP 1: Does the patient complete the activity by him/herself with no assistance (physical, verbal/nonverbal cueing, setup/clean-up)? No. TOILETING HYGIENE - STEP 2: Does the patient need only setup/clean-up assistance from one helper? Yes. 1. [id number] ADMISSION PERFORMANCE: Setup or clean-up assistance CODE: 05 BATHING: Not assessed/no information CODE: - DRESSING - UPPER BODY: DRESSING - UPPER BODY - STEP 1: Does the patient complete the activity by him/herself with no assistance (physical, verbal/nonverbal cueing, setup/clean-up)? No. DRESSING - UPPER BODY - STEP 2: Does the patient need only setup/clean-up assistance from one helper? No. DRESSING - UPPER BODY - STEP 3: Does the patient need only verbal/nonverbal cueing or touching/steadying/contact guard assistance fro m one helper? Yes. 1. [id number] ADMISSION PERFORMANCE: Supervision or touching assistance CODE: 04 DRESSING - LOWER BODY: DRESSING - LOWER BODY - STEP 1: Does the patient complete the activity by him/herself with no assistance (physical, verbal/nonverbal cueing, setup/clean-up)? No. DRESSING - LOWER BODY - STEP 2: Does the patient need only setup/clean-up assistance from one helper? No. DRESSING - LOWER BODY - STEP 3: Does the patient need only verbal/nonverbal cueing or touching/steadying/contact guard assistance fro m one helper? No. DRESSING - LOWER BODY - STEP 4: Does the patient need physical assistance - for example lifting or trunk support from one helper - wi th the helper providing less than half of the effort? Yes. 1. [id number] ADMISSION PERFORMANCE: Partial/moderate assistance CODE: 03 PUTTING ON/TAKING OFF FOOTWEAR: FOOTWEAR - STEP 1: Does the patient complete the activity by him/herself with no assistance (physical, verbal/nonverbal cueing, setup/clean-up)? No. FOOTWEAR - STEP 2: Does the patient need only setup/clean-up assistance from one helper? No. FOOTWEAR - STEP 3: Does the patient need only verbal/nonverbal cueing or touching/steadying/contact guard assistance fro m one helper? No. FOOTWEAR - STEP 4: Does the patient need physical assistance - for example lifting or trunk support from one helper - wi th the helper providing less than half of the effort? Yes. 1. [id number] ADMISSION PERFORMANCE: Partial/moderate assistance CODE: 03 ROLL LEFT AND RIGHT: ROLL LEFT AND RIGHT - STEP 1: Does the patient complete the activity by him/herself with no assistance (physical, verbal/nonverbal cueing, setup/clean-up)? No. ROLL LEFT AND RIGHT - STEP 2: Does the patient need only setup/clean-up assistance from one helper? No. ROLL LEFT AND RIGHT - STEP 3: Does the patient need only verbal/nonverbal cueing or touching/steadying/contact guard assistance fro m one helper? Yes. 1. [id number] ADMISSION PERFORMANCE: Supervision or touching assistance CODE: 04 SIT TO LYING: SIT TO LYING - STEP 1: Does the patient complete the activity by him/herself with no assistance (physical, verbal/nonverbal cueing, setup/clean-up)? No. SIT TO LYING - STEP 2: Does the patient need only setup/clean-up assistance from one helper? No. SIT TO LYING - STEP 3: Does the patient need only verbal/nonverbal cueing or touching/steadying/contact guard assistance fro m one helper? Yes. 1. [id number] ADMISSION PERFORMANCE: Supervision or touching assistance CODE: 04 LYING TO SITTING: LYING TO SITTING ON SIDE OF BED - STEP 1: Does the patient complete the activity by him/herself with no assistance (physical, verbal/nonverbal cueing, setup/clean-up)? No. LYING TO SITTING ON SIDE OF BED - STEP 2: Does the patient need only setup/clean-up assistance from one helper? No. LYING TO SITTING ON SIDE OF BED - STEP 3: Does the patient need only verbal/nonverbal cueing or touching/steadying/contact guard assistance fro m one helper? Yes. 1. [id number] ADMISSION PERFORMANCE: Supervision or touching assistance CODE: 04 SIT TO STAND: SIT TO STAND - STEP 1: Does the patient complete the activity by him/herself with no assistance (physical, verbal/nonverbal cueing, setup/clean-up)? No. SIT TO STAND - STEP 2: Does the patient need only setup/clean-up assistance from one helper? No. SIT TO STAND - STEP 3: Does the patient need only verbal/nonverbal cueing or touching/steadying/contact guard assistance fro m one helper? Yes. 1. [id number] ADMISSION PERFORMANCE: Supervision or touching assistance CODE: 04 TRANSFERS: BED, CHAIR: CHAIR/[id number] TRANSFER - STEP 1: Does the patient complete the activity by him/herself with no assistance (physical, verbal/nonverbal cueing, setup/clean-up)? No. CHAIR/[id number] TRANSFER - STEP 2: Does the patient need only setup/clean-up assistance from one helper? No. CHAIR/[id number] TRANSFER - STEP 3: Does the patient need only verbal/nonverbal cueing or touching/steadying/contact guard assistance fro m one helper? Yes. 1. [id number] ADMISSION PERFORMANCE: Supervision or touching assistance CODE: 04 TRANSFER TOILET: TOILET TRANSFER - STEP 1: Does the patient complete the activity by him/herself with no assistance (physical, verbal/nonverbal cueing, setup/clean-up)? No. TOILET TRANSFER - STEP 2: Does the patient need only setup/clean-up assistance from one helper? No. TOILET TRANSFER - STEP 3: Does the patient need only verbal/nonverbal cueing or touching/steadying/contact guard assistance fro m one helper? Yes. 1. [id number] ADMISSION PERFORMANCE: Supervision or touching assistance CODE: 04 TRANSFERS: CAR: Not assessed/no information CODE: - WALK 10 FEET: Not assessed/no information CODE: - 1 STEP (CURB): Not assessed/no information CODE: - PICKING UP OBJECT: Not assessed/no information CODE: - DOES THE PATIENT USE A WHEELCHAIR/SCOOTER? Q1. DOES THE PATIENT USE A WHEELCHAIR/SCOOTER?: Yes CODE: 1 WHEEL 50 FEET WITH TWO TURNS: Not assessed/no information CODE: - INDICATE THE TYPE OF WHEELCHAIR/SCOOTER USED: RR1. INDICATE THE TYPE OF WHEELCHAIR/SCOOTER USED.: Manual CODE: 1 WHEEL 150 FEET: Not assessed/no information CODE: - INDICATE THE TYPE OF WHEELCHAIR/SCOOTER USED: SS1. INDICATE THE TYPE OF WHEELCHAIR/SCOOTER USED.: Manual CODE: 1 BLADDER AND BOWEL: H350. BLADDER CONTINENCE (3-DAY ASSESSMENT PERIOD): Incontinent daily (at least once a day) CODE: 3 H400. BOWEL CONTINENCE (3-DAY ASSESSMENT PERIOD): Always continent CODE: 0 SIGNATURE PANEL: The following modified sections: 1. [id number] Admission Performance, 1. [id number] Admission Performance, 1. OB1728I Admission Performance, 1. [id number] Admission Performance, 1. NK0287o Admission Performance, 1. [id number] Admission Performance, 1. [id number] Admission Performance, 1. [id number] Admission Performance , 1. [id number] Admission Performance, 1. [id number] Admission Performance, 1. [id number] Admission Performanc e, 1. [id number] Admission Performance, 1. [id number] Admission Performance, Q1. Does the patient use a whe elchair/scooter?, RR1. Indicate the type of wheelchair/scooter used., Code, SS1. Indicate the type of wheelchair/scooter used., H350. Bladder Continence (3-day assessment period), H400. Bowel Continence (3-day assessment period) were [electronically] signed by Lola Laboy C.N.A. on MonFeb 06 2020 14 :54:15 GMT-0600 (Central Standard Time)
--- NOTE | 2020-02-10 17:27 | R.PN ---
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 AMS, UTI,ANEMIACHIEF COMPLAINT: Debility and CLL SUBJECTIVE: Pt denied any depression. Pt denied any Shortness of Breath. WBC at baseline 84.9 due to CLL and Hgb increased to 8.0 after 1 unit of PRBCs.He has another unit pe nding. For esbl E-coli UTI, he completed bactrim DS bid for 5 days. Glucose 108 to 150. He ambulated 450' with standby assistance to modified independence using a rolling walker. VITAL SIGNS Temperature: 98.0 F SBP/DBP: 123/68 Pulse: 64 Resp: 16 MEDICATION ALLERGIES: No Known Drug Allergies (NKDA) ENVIRONMENTAL ALLERGIES: - Substance Allergies None Known - Other Allergies None Known NURSING: - Shower allowing shower ACTIVITIES OOB only with supervision THERAPIES: - Dietary and Nutrition Adequate Nutrition. Nutritional Education. Nutritional Supplements. PHYSICAL EXAM - Gen Alert and awake Lying in bed No apparent distress Oriented to: person, time, and place - Skin No skin breakdown. No abnormalities - Eyes No abnormalities - ENMT No abnormalities - Neck No abnormalities - CVS RRR - Chest No abnormalities - Resp No wheezing - Abd Soft - GI Non distended Deferred - No abnormalities - Ext No significant edema - MSK 4/5 weakness in both lower extremities. - Neuro No focal deficits - Psych No abnormalities ASSESSMENT: Pt. is a 75 yo Right-handed male of unknown race.On 01/16/[address] [facility] with diagnosis DEBILITY. AMS, UTI,ANEMIA.His impairment category is Debility 16 - Debility (16).Pre -morbidly, Pt. was independent/mod-I in Safety Awareness, Balance, Transfers Control, and Endurance; and he had good Locomotion, Self-Care, Sphincter Control, and Transfers Control.Currently, he has def icits of Locomotion, Balance, Sphincter Control, Transfers Control, and Social Cognition.Pt. is now r [facility]ferred to [facility] for acute in-patient rehabilitation in order to maximize patient's functional independence in activities of daily living, strength, ROM, and mobility.- Rehab Goal Patient has realistic goal of being discharged at assistance level 7-Ind to reside at Home with Fami ly/Relatives. MDM/PLAN: - Physical Therapy Gait dysfunction - to improve, our physical therapists will perform initial evaluation of pt's statu s upon admission and devise an individualized program for Gait Training, and Wheel Chair mobility Inability to transfer - to improve, our physical therapists will perform initial evaluation of pt's status upon admission and devise an individualized program for Bed mobility Need for home safety evaluation - to improve, our physical therapists will perform initial evaluatio n of pt's status upon admission and devise an individualized program for Home Evaluation Need in caregiver upon discharge - to improve, our physical therapists will perform initial evaluati on of pt's status upon admission and devise an individualized program for Caregiver Training Edema - to improve, our physical therapists will perform initial evaluation of pt's status upon admi ssion and devise an individualized program for Elevation Training, and Lymphedema Therapy New precaution - to improve, our physical therapists will perform initial evaluation of pt's status upon admission and devise an individualized program for Patient precaution education Poor balance - to improve, our physical therapists will perform initial evaluation of pt's status up on admission and devise an individualized program for Balance Training Weakness - to improve, our physical therapists will perform initial evaluation of pt's status upon a dmission and devise an individualized program for Aquatic Therapy, Neuromuscular Reeducation, and Str engthening Achieving independence - to improve, our physical therapists will perform initial evaluation of pt's status upon admission and devise an individualized program for Community Reintegration Activities - Occupational Therapy Cognitive deficits - to improve, our occupation therapists will perform initial evaluation of pt's s tatus upon admission and devise an individualized program for Cognition - orientation Need for floor care specialist - to improve, our occupation therapists will perform initial evaluation of pt's status upon admission and devise an individualized program for Caregiver Training Weakness - to improve, our occupation therapists will perform initial evaluation of pt's status upon admission and devise an individualized program for Aquatic Therapy, Balance, Endurance, UE ROM, and UE strengthening - Other See attached MAR (Medication Administration Record) - Diet Type Continue Regular - Diet - Liquid Texture Continue Regular - Tube Feed Continue N/A - Diet - Solid Texture Continue Regular - Shower allowing shower FUNCTIONAL STATUS: UPDATED AT WEEKLY TEAM CONFERENCE - Bladder Same accident frequency: 7-Ind - No accidents in the past 7 days - Bowel Same accident frequency: 7-Ind - No accidents in the past 7 days - Walking Same score based on distance walked: 0(N/A) Same score based on distance walked: 1(<=50ft) - Wheelchair Same score based on distance traveled: 0(N/A) FUNCTIONAL STATUS: - Self-Care A. Eating Candace B. Grooming Beatrice C. Bathing Candace D. Dressing - Upper sup E. Dressing - Lower Candace F. Toileting Candace - Sphincter Control G. Bladder control Ind H. Bowel control Ind - Transfers Control I. Bed/Chair/Wheelchair sup J. Toilet sup K. Tub/Shower Candace - Locomotion L. Walk/Wheelchair (B) sup M. Stairs Candace - Communication N. Comprehension (B) Beatrice O. Expression (B) Ind - Social Cognition P. Social Interaction Beatrice Q. Problem Solving Beatrice R. Memory Beatrice - Endurance Good - Balance Fair - Safety Awareness Good QI SCORES: - Self-Care A. Eating 04-Supervision or touching assistance B. Oral hygiene 03-Partial/moderate assistance C. Toileting hygiene 03-Partial/moderate assistance E. Shower/bathe self 03-Partial/moderate assistance F. Upper body dressing 03-Partial/moderate assistance G. Lower body dressing 03-Partial/moderate assistance H. Putting on/taking off footwear 88-Not attempted due to medical condition or safety concerns - Mobility A. Roll left and right 03-Partial/moderate assistance B. Sit to lying 03-Partial/moderate assistance C. Lying to sitting on side of bed 03-Partial/moderate assistance D. Sit to stand 03-Partial/moderate assistance E. Chair/gwr-vl-agwpi transfer 03-Partial/moderate assistance F. Toilet transfer 03-Partial/moderate assistance G. Car transfer 88-Not attempted due to medical condition or safety concerns I. Walk 10 feet 88-Not attempted due to medical condition or safety concerns J. Walk 50 feet with two turns 88-Not attempted due to medical condition or safety concerns K. Walk 150 feet 88-Not attempted due to medical condition or safety concerns L. Walking 10 feet on uneven surfaces 88-Not attempted due to medical condition or safety concerns M. 1 step (curb) 88-Not attempted due to medical condition or safety concerns N. 4 steps 88-Not attempted due to medical condition or safety concerns O. 12 steps 88-Not attempted due to medical condition or safety concerns P. Picking up object 88-Not attempted due to medical condition or safety concerns R. Wheel 50 feet with two turns 88-Not attempted due to medical condition or safety concerns S. Wheel 150 feet 88-Not attempted due to medical condition or safety concerns - Bladder and Bowel Bladder continence Bowel continence - Endurance Fair - Balance Fair - Safety Awareness Fair CURRENT [facility]. 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
--- NOTE | 2020-02-21 16:01 | R.DS ---
DISCHARGE SUMMARY FACILITY [facility] MR# [id number] NAME IDANIA TERRY ADDRESS [address] [place] [address] PHONE DATE OF 1945 AGE 75 SSN# [id number] GENDER Male DEXTERITY Right-handed MARITAL STATUS RACE Unknown race ENCOUNTER PHYSICIAN Dr. Jose Healy M.D. REFERRING DOCTOR DR LEES REFERRING FACILITY [facility] DISCHARGE DIAGNOSIS: - Debility 16 - Debility (16) DEBILITY. AMS, UTI,ANEMIA. 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 NURSING: - Shower allowing shower ACTIVITIES OOB only with supervision THERAPIES: - Dietary and Nutrition Adequate Nutrition Nutritional Education Nutritional Supplements HISTORY OF PRESENT ILLNESS: Pt. is a 75 yo Right-handed male of unknown race.On 01/16/2020 he was admitted to [facility] with diagnosis DEBILITY. AMS, UTI,ANEMIA.His impairment category is Debility 16 - Debility (16).Pre -morbidly, Pt. was independent/mod-I in Safety Awareness, Balance, Transfers Control, and Endurance; and he had good Locomotion, Self-Care, Sphincter Control, and Transfers Control.Currently, he has def icits of Locomotion, Balance, Sphincter Control, Transfers Control, and Social Cognition.Pt. is now r eferred to [facility] for acute in-patient rehabilitation in order to maximize patient's functional independence in activities of daily living, strength, ROM, and mobility.- Rehab Goal Patient has realistic goal of being discharged at assistance level 7-Ind to reside at Home with Fami ly/Relatives. UPDATE: Patient has a hemoglobin of 6.9 and needed a transfusion. He was transferred to the acute floor for the transfusion as he needed telemetry for monitoring as he had a history for VTACH. He is now medically stable and ready for re-admission back to rehab.HOSPITAL COURSE: DIET - LIQUID TEXTURE: On 01/31/2020 Pt was upgraded to Regular Diet - Liquid Texture. DIET - SOLID TEXTURE: On 01/31/2020 Pt was upgraded to Regular Diet - Solid Texture. DIET TYPE: On 01/31/2020 Pt was upgraded to Regular Diet Type. TUBE FEED: On 01/31/2020 Pt was changed to N/A Tube Feed. DISCHARGE PHYSICAL EXAM - Gen Alert and awake Lying in bed No apparent distress Oriented to: person, time, and place - Skin No skin breakdown. No abnormalities - Eyes No abnormalities - ENMT No abnormalities - Neck No abnormalities - CVS RRR - Chest No abnormalities - Resp No wheezing - Abd Soft - GI Non distended Deferred - No abnormalities - Ext No significant edema - MSK 4/5 weakness in both lower extremities. - Neuro No focal deficits - Psych No abnormalities FUNCTIONAL STATUS: - Self-Care A. Eating 6-Beatrice B. Grooming 6-Beatrice C. Bathing 5-sup D. Dressing - Upper 5-sup E. Dressing - Lower 5-sup F. Toileting 5-sup - Sphincter Control G. Bladder control 7-Ind H. Bowel control 7-Ind - Transfers Control I. Bed/Chair/Wheelchair 5-sup J. Toilet 5-sup K. Tub/Shower 4-Candace - Locomotion L. Walk/Wheelchair (B) 6-Beatrice M. Stairs 5-sup - Communication N. Comprehension (B) 6-Beatrice O. Expression (B) 7-Ind - Social Cognition P. Social Interaction 6-Beatrice Q. Problem Solving 6-Beatrice R. Memory 6-Beatrice - Endurance Good - Balance Good - Safety Awareness Good QI SCORES: - Self-Care A. Eating 04-Supervision or touching assistance B. Oral hygiene 03-Partial/moderate assistance C. Toileting hygiene 03-Partial/moderate assistance E. Shower/bathe self 03-Partial/moderate assistance F. Upper body dressing 03-Partial/moderate assistance G. Lower body dressing 03-Partial/moderate assistance H. Putting on/taking off footwear 88-Not attempted due to medical condition or safety concerns - Mobility A. Roll left and right 03-Partial/moderate assistance B. Sit to lying 03-Partial/moderate assistance C. Lying to sitting on side of bed 03-Partial/moderate assistance D. Sit to stand 03-Partial/moderate assistance E. Chair/[id number] transfer 03-Partial/moderate assistance F. Toilet transfer 03-Partial/moderate assistance G. Car transfer 88-Not attempted due to medical condition or safety concerns I. Walk 10 feet 88-Not attempted due to medical condition or safety concerns J. Walk 50 feet with two turns 88-Not attempted due to medical condition or safety concerns K. Walk 150 feet 88-Not attempted due to medical condition or safety concerns L. Walking 10 feet on uneven surfaces 88-Not attempted due to medical condition or safety concerns M. 1 step (curb) 88-Not attempted due to medical condition or safety concerns N. 4 steps 88-Not attempted due to medical condition or safety concerns O. 12 steps 88-Not attempted due to medical condition or safety concerns P. Picking up object 88-Not attempted due to medical condition or safety concerns R. Wheel 50 feet with two turns 88-Not attempted due to medical condition or safety concerns S. Wheel 150 feet 88-Not attempted due to medical condition or safety concerns - Bladder and Bowel Bladder continence Bowel continence - Endurance Fair - Balance Fair - Safety Awareness Fair DISCHARGE INSTRUCTIONS: - N/A Plavix 75 mg and aspirin 81 mg daily. DISCHARGE PLAN, FOLLOW UP CARE PROVISIONS: - Estimated Length of Stay (days) 13. - Consensus on plan Discharge plan has been discussed with primary caregiver. Patient/Family is in agreement with the emre n. Primary caregiver is in agreement with the plan. - Patient/Family Goals Return home independently. - Planned Living Setting Upon Discharge Home, to live with Family/Relatives. Transitional Living. 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
== END 2020-01-31 09:00 | disposition home or self-care (01) | DRG 811 ==
LOC: 5TH 18:16
PROVIDERS: ADMIT Psychiatry & Neurology Neurology with Special Qualifications in Child Neurology; ATTEND Psychiatry & Neurology Neurology with Special Qualifications in Child Neurology
DX: D64.9 Anemia, unspecified (principal); J18.9 Pneumonia, unspecified organism; Z16.12 Extended spectrum beta lactamase (ESBL) resistance; J44.0 Chronic obstructive pulmonary disease with (acute) lower respiratory infection; C91.10 Chronic lymphocytic leukemia of B-cell type not having achieved remission; N39.0 Urinary tract infection, site not specified; I10 Essential (primary) hypertension; E11.9 Type 2 diabetes mellitus without complications; R53.81 Other malaise; R41.82 Altered mental status, unspecified; Z85.51 Personal history of malignant neoplasm of bladder; Z20.828 Contact with and (suspected) exposure to other viral communicable diseases
CPT/HCPCS: 36415; 71045; 74230; 80048; 81001; 82040; 82274; 82728; 82947; 83540; 83735; 84134; 84466; 85014; 85018; 85025; 86850; 86870; 86900; 86901; 86922; 87070; 87077; 87086; 87088; 87186; 87205; 92523; 92526; 92611; 94010; 97110; 97112; 97116; 97161; 97530; 97542; J1644; J7050; Q5106; U0002

== ENCOUNTER 2020-01-31 06:30 | Inpatient (IN) | payer OTHER ==
--- OUTSIDE RECORDS SUMMARY | 2020-01-31 06:36 | XMS REPORT | Clinical Summary ---
:1945 Author Organization [facility] [employer] Address [address] [place] [address] Care Team Providers Name Role Phone MD [...] Health Maintenance Due Date Last Done Comments COVID-19 VACCINE (#1) 1961 COLONOSCOPY SCREENING 1995 SHINGLES VACCINES (#1) 1995 65+ PNEUMOCOCCAL VACCINE (1 of 1 - PPSV23) 2010 INFLUENZA VACCINE 09/07/2019 Results Not on fileafter 01/30/2019 Insurance Payer Benefit Plan / Subscriber ID Effective Dates Phone Addre ss Type Group AETNA AETNA PPO OPEN [id number] 2000-Present PPO CHOICE MEDICARE MEDICARE PART A [id number] 2009-Present [facility] [place] [place] [facility] AND B Advance Directives For more information, please contact: [phone] Type Date Recorded Patient Clinical Resource Director Explanati on Advance Directives, Living Will and 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
--- OUTSIDE RECORDS SUMMARY | 2020-01-31 06:40 | XMS REPORT | Clinical Summary ---
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) (Primary Dx) 11/21/2019 Hospital Encounter Respiratory Therapy Payne, Casey An eurysm of infrarenal abdominal aorta (HCC); Gee, NP Tobacco use 11/14/2019 Orders Only Cardiology Payne, Casey Aneurysm of Gee, 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) (Primary Dx) 11/13/2019 [...] aortic aneurysm (AAA) without rupture (HCC); Gee, VACUUM CONDITIONER OPERATOR Ascending aortic aneurysm (HCC); [facility] Room 11/05/2019 Hospital Encounter Computed Tomography Payne, Casey Ab dominal aortic aneurysm without rupture (HCC); MUNA Flynn Abdominal aortic aneurysm (AAA) without rupture (HCC) [facility] 10/18/2019 Orders Only Cardiology Delano Payne Abdominal ao rtic aneurysm (AAA) without rupture (HCC) (Primary Dx); MD Kenny Abdominal aort ic aneurysm without rupture (HCC) 10/18/2019 Orders Only Cardiology Delano Payne Abdominal ao rtic aneurysm (AAA) without rupture (HCC) (Primary Dx); MD Kenny Ascending aort ic aneurysm (HCC); Aortic valve di sease after 01/30/2019 Family History Medical History Relation Name Comments [...] with No / Unsure 01/03/2020 10:16 AM ELECTRICIAN HELPER someone who was confirmed or suspected to have Coronavirus / COVID-19? Last Filed Vital Signs Vital Sign Reading Time Taken Comments Blood Pressure 140/66 2020 2:00 PM ELECTRICIAN HELPER Pulse 58 2020 2:00 PM ELECTRICIAN HELPER Temperature 48 C (118.4 F) 2020 11:52 AM ELECTRICIAN HELPER Respiratory Rate 18 2020 2:00 PM ELECTRICIAN HELPER Oxygen Saturation 98% 2020 1:00 PM ELECTRICIAN HELPER Inhaled Oxygen Concentration 21% 12/18/2019 7:44 PM ELECTRICIAN HELPER Weight 85.3 kg (188 lb) 2020 8:39 AM ELECTRICIAN HELPER Height 180.3 cm (5' 10.98") 2020 8:39 AM ELECTRICIAN HELPER Body Mass Index 26.23 2020 8:39 AM ELECTRICIAN HELPER Plan of Treatment Health Maintenance Due Date Last Done Comments COLON CANCER SCREENING COLONOSCOPY 1945 PNEUMOCOCCAL 65+ YRS (1 of 1 - [id number]) 2010 MEDICARE ANNUAL WELLNESS (YEAR 2 or FIRST YEAR if no 12/08/2010 IPPE) DEPRESSION SCREENING (12+) 02/06/2019 INFLUENZA VACCINE (#1) 2019 Implants Implanted Type Area Aids Counselor Device Identifier Shelf Model / Expiration Serial / Date Lot Stent Grft Excluder C3 31x14.5 [id number] - [id number] IMPLANTS N /A: LEANDRO SEBASTIAN & [id number] 10/15/2022 [id number] / Implanted: Qty: 1 on 12/13/2019 by Delano Barrett MD at [facility] Aorta ASSC:MED PRDT [id number] / Description:ABDOMINAL AORTA- RIGHT ILIAC Grft Leg Excluder [id number] - [id number] IMPLANTS L eft: LEANDRO SEBASTIAN & [id number] 06/23/2022 [id number] / Implanted: Qty: 1 on 12/13/2019 by Delano Barrett MD at [facility] Iliac ASSC:MED PRDT [id number] / Description:LEFT COMMON ILIAC. Stent Grft Excluder [id number] - [id number] IMPLANTS R ight: WL GORE & [id number] 01/04/2023 [id number] / Implanted: Qty: 1 on 12/13/2019 by Delano Barrett MD at [facility] Iliac ASSC:MED [id number] / PRDT Description:RIGHT COMMON ILIAC Patch Periph Vascu-Grd 0.8x8cm [id number] - [id number] IMPLAN TS Left: SYNOVIS [id number] 07/16/2024 [id number] / Implanted: Qty: 1 on 12/13/2019 by Colton Gupta MD at [facility] Arterial LIFE [id number] / TECH:SURG [id number] INNOV Description:Site: LEFT LOWER EXTREMITY Angio Seal Left: Arterial TERUMO VASCUTEK 09/06/19 21 [id number] / Implanted: Qty: 1 on 12/13/2019 by Colton Gupta MD at [facility] / [id number] Angio-Seal Vip Left: Arm Upper TERUMO MEDICAL MIGUEL. 10/06/2020 [id number] / Implanted: Qty: 1 on 2020 by Colton Gupta MD at [facility] / [id number] Procedures Procedure Name Priority Date/Time Associated Diagnosis Comme nts POCT-ACT Routine 2020 11:24 AM Results for this ELECTRICIAN HELPER procedure are i n the results section. ECG 12-LEAD Routine 2020 10:50 AM Results for this ELECTRICIAN HELPER procedure are i n the results section. 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 SARS-COV2/RT-PCR Routine 01/03/2020 10:25 AM Pre-op testing Re sults for this ([facility] REF LAB[facility]) ELECTRICIAN HELPER procedure are in the results section . POCT-GLUCOSE METER Routine 12/19/2019 7:18 AM Re sults for this ELECTRICIAN HELPER procedure are i n the results section . CBC (HEMOGRAM ONLY) Routine 12/19/2019 4:49 AM R esults for this ELECTRICIAN HELPER procedure are i n the results section . PHOSPHORUS Routine 12/19/2019 4:49 AM Results for this ELECTRICIAN HELPER procedure are i n the results section . MAGNESIUM Routine 12/19/2019 4:49 AM Results for this ELECTRICIAN HELPER procedure are i n the results section . BASIC METABOLIC PANEL Routine 12/19/2019 4:49 AM Results for this (7) ELECTRICIAN HELPER procedure are i n the results section . POCT-GLUCOSE METER Routine 12/18/2019 9:00 PM Re sults for this ELECTRICIAN HELPER procedure are i n the results section . POCT-GLUCOSE METER Routine 12/18/2019 4:56 PM Re sults for this ELECTRICIAN HELPER procedure are i n the results section . POCT-GLUCOSE METER Routine 12/18/2019 11:16 AM Re sults for this ELECTRICIAN HELPER procedure are i n the results section . ECG 12-LEAD Routine 12/18/2019 8:29 AM Results for this ELECTRICIAN HELPER procedure are i n the results section . 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 rate has increased BY [address] now depressed in Inferior leads ST now depressed in Anterola teral leads Nonspecific T wave abnormali ty now evident in Inferior leads T wave inversion now evident in Anterolateral leads POCT-GLUCOSE METER Routine 12/18/2019 7:37 AM Re sults for this ELECTRICIAN HELPER procedure are i n the results section. SARS-COV2/RT-PCR ([facility] Routine 12/18/2019 5:39 AM Results for this & REF LABS) ELECTRICIAN HELPER procedure are i n the results section. CBC (HEMOGRAM ONLY) Routine 12/18/2019 5:24 AM R esults for this ELECTRICIAN HELPER procedure are i n the results section. PHOSPHORUS Routine 12/18/2019 5:24 AM Results for this ELECTRICIAN HELPER procedure are i n the results section. MAGNESIUM Routine 12/18/2019 5:24 AM Results for this ELECTRICIAN HELPER procedure are i n the results section. BASIC METABOLIC PANEL Routine 12/18/2019 5:24 AM Results for this (7) ELECTRICIAN HELPER procedure are i n the results section. POCT-GLUCOSE METER Routine 12/17/2019 9:25 PM Re sults for this ELECTRICIAN HELPER procedure are i n the results section. POCT-GLUCOSE METER Routine 12/17/2019 4:03 PM Re sults for this ELECTRICIAN HELPER procedure are i n the results section. POCT-GLUCOSE METER Routine 12/17/2019 11:59 AM Re sults for this ELECTRICIAN HELPER procedure are i n the results section. POCT-GLUCOSE METER Routine 12/17/2019 7:49 AM Re sults for this ELECTRICIAN HELPER procedure are i n the results section. CBC (HEMOGRAM ONLY) Routine 12/17/2019 5:11 AM R esults for this ELECTRICIAN HELPER procedure are i n the results section. PHOSPHORUS Routine 12/17/2019 5:11 AM Results for this ELECTRICIAN HELPER procedure are i n the results section. MAGNESIUM Routine 12/17/2019 5:11 AM Results for this ELECTRICIAN HELPER procedure are i n the results section. BASIC METABOLIC PANEL Routine 12/17/2019 5:11 AM Results for this (7) ELECTRICIAN HELPER procedure are i n the results section. POCT-GLUCOSE METER Routine 12/16/2019 9:16 PM Re sults for this ELECTRICIAN HELPER procedure are i n the results section. POCT-GLUCOSE METER Routine 12/16/2019 4:18 PM Re sults for this ELECTRICIAN HELPER procedure are i n the results section. POCT-GLUCOSE METER Routine 12/16/2019 12:02 PM Re sults for this ELECTRICIAN HELPER procedure are i n the results section. POCT-GLUCOSE METER Routine 12/16/2019 7:39 AM Re sults for this ELECTRICIAN HELPER procedure are i n the results section. CBC (HEMOGRAM ONLY) Routine 12/16/2019 5:13 AM R esults for this ELECTRICIAN HELPER procedure are i n the results section. APTT Routine 12/16/2019 5:13 AM Results for this ELECTRICIAN HELPER procedure are i n the results section. PHOSPHORUS Routine 12/16/2019 5:13 AM Results for this ELECTRICIAN HELPER procedure are i n the results section. MAGNESIUM Routine 12/16/2019 5:13 AM Results for this ELECTRICIAN HELPER procedure are i n the results section. BASIC METABOLIC PANEL Routine 12/16/2019 5:13 AM Results for this (7) ELECTRICIAN HELPER procedure are i n the results section. POCT-GLUCOSE METER Routine 12/15/2019 9:20 PM Re sults for this ELECTRICIAN HELPER procedure are i n the results section. APTT Routine 12/15/2019 4:14 AM Results for this ELECTRICIAN HELPER procedure are i n the results section. PHOSPHORUS STAT 12/15/2019 4:10 AM Results for this ELECTRICIAN HELPER procedure are i n the results section. MAGNESIUM STAT 12/15/2019 4:10 AM Results for this ELECTRICIAN HELPER procedure are i n the results section. BASIC METABOLIC PANEL STAT 12/15/2019 4:10 AM Results for this (7) ELECTRICIAN HELPER procedure are i n the results section. CBC (HEMOGRAM ONLY) Routine 12/15/2019 4:09 AM R esults for this ELECTRICIAN HELPER procedure are i n the results section. PREPARE RBC STAT 12/14/2019 11:54 PM Results for this ELECTRICIAN HELPER procedure are i n the results section. POCT-GLUCOSE METER Routine 12/14/2019 10:34 PM Re sults for this ELECTRICIAN HELPER procedure are i n the results section. APTT Routine 12/14/2019 9:01 PM Results for this ELECTRICIAN HELPER procedure are i n the results section. POCT-GLUCOSE METER Routine 12/14/2019 6:05 PM Re sults for this ELECTRICIAN HELPER procedure are i n the results section. APTT Routine 12/14/2019 2:42 PM Results for this ELECTRICIAN HELPER procedure are i n the results section. MAGNESIUM STAT 12/14/2019 1:58 PM Results for this ELECTRICIAN HELPER procedure are i n the results section. BASIC METABOLIC PANEL STAT 12/14/2019 1:58 PM Results for this (7) ELECTRICIAN HELPER procedure are i n the results section. POCT-GLUCOSE METER Routine 12/14/2019 1:47 PM Re sults for this ELECTRICIAN HELPER procedure are i n the results section. POCT-GLUCOSE METER Routine 12/14/2019 9:00 AM Re sults for this ELECTRICIAN HELPER procedure are i n the results section. APTT Routine 12/14/2019 7:52 AM Results for this ELECTRICIAN HELPER procedure are i n the results section. XR CHEST 1 VIEW STAT 12/14/2019 7:50 AM Resul ts for this PORTABLE/BEDSIDE ELECTRICIAN HELPER procedure a re in the results section. APTT Routine 12/14/2019 5:07 AM Results for this ELECTRICIAN HELPER procedure are i n the results section. BLOOD GAS, ARTERIAL Routine 12/14/2019 5:07 AM R esults for this ELECTRICIAN HELPER procedure are i n the results section. PHOSPHORUS STAT 12/14/2019 3:28 AM Results for this ELECTRICIAN HELPER procedure are i n the results section. MAGNESIUM STAT 12/14/2019 3:28 AM Results for this ELECTRICIAN HELPER procedure are i n the results section. BASIC METABOLIC PANEL STAT 12/14/2019 3:28 AM Results for this (7) ELECTRICIAN HELPER procedure are i n the results section. CBC (HEMOGRAM ONLY) Routine 12/14/2019 3:28 AM R esults for this ELECTRICIAN HELPER procedure are i n the results section. POCT-GLUCOSE METER Routine 12/13/2019 11:24 PM Re sults for this ELECTRICIAN HELPER procedure are i n the results section. XR CHEST 1 VIEW STAT 12/13/2019 11:20 PM Resul ts for this PORTABLE/BEDSIDE ELECTRICIAN HELPER procedure a re in the results section. CALCIUM, IONIZED Routine 12/13/2019 11:12 PM Resu lts for this ELECTRICIAN HELPER procedure are i n the results section. BLOOD GAS, ARTERIAL Routine 12/13/2019 11:12 PM R esults for this ELECTRICIAN HELPER procedure are i n the results section. MAGNESIUM Routine 12/13/2019 11:10 PM Results for this ELECTRICIAN HELPER procedure are i n the results section. PHOSPHORUS Routine 12/13/2019 11:10 PM Results for this ELECTRICIAN HELPER procedure are i n the results section. PROTHROMBIN TIME/INR Routine 12/13/2019 11:10 PM Results for this ELECTRICIAN HELPER procedure are i n the results section. APTT Routine 12/13/2019 11:10 PM Results for this ELECTRICIAN HELPER procedure are i n the results section. BASIC METABOLIC PANEL Routine 12/13/2019 11:10 PM Results for this (7) ELECTRICIAN HELPER procedure are i n the results section. CBC (HEMOGRAM ONLY) Routine 12/13/2019 11:10 PM R esults for this ELECTRICIAN HELPER procedure are i n the results section. POCT-ACT Routine 12/13/2019 9:38 PM Results for this ELECTRICIAN HELPER procedure are i n the results section. POCT-ACT Routine 12/13/2019 8:51 PM Results for this ELECTRICIAN HELPER procedure are i n the results section. HGB/HCT (H&H) - STAT STAT 12/13/2019 8:48 PM Results for this LAB ELECTRICIAN HELPER procedure are i n the results section. GLUCOSE-STAT LAB STAT 12/13/2019 8:48 PM Resu lts for this ELECTRICIAN HELPER procedure are i n the results section. POTASSIUM-STAT LAB STAT 12/13/2019 8:48 PM Re sults for this ELECTRICIAN HELPER procedure are i n the results section. SODIUM NA-STAT LAB STAT 12/13/2019 8:48 PM Re sults for this ELECTRICIAN HELPER procedure are i n the results section. BLOOD GAS, ARTERIAL STAT 12/13/2019 8:48 PM R esults for this ELECTRICIAN HELPER procedure are i n the results section. CALCIUM, IONIZED STAT 12/13/2019 8:48 PM Resu lts for this ELECTRICIAN HELPER procedure are i n the results section. BLOOD GAS, ARTERIAL STAT 12/13/2019 8:48 PM R esults for this ELECTRICIAN HELPER procedure are i n the results section. POCT-ACT Routine 12/13/2019 8:17 PM Results for this ELECTRICIAN HELPER procedure are i n the results section. TRANSFUSE Routine 12/13/2019 7:48 PM LEUKO-REDUCED RED ELECTRICIAN HELPER BLOOD CELLS TRANSFUSE Routine 12/13/2019 7:46 PM LEUKO-REDUCED RED ELECTRICIAN HELPER BLOOD CELLS POCT-ACT Routine 12/13/2019 7:37 PM Results for this ELECTRICIAN HELPER procedure are i n the results section. HGB/HCT (H&H) - STAT STAT 12/13/2019 7:31 PM Results for this LAB ELECTRICIAN HELPER procedure are i n the results section. GLUCOSE-STAT LAB STAT 12/13/2019 7:31 PM Resu lts for this ELECTRICIAN HELPER procedure are i n the results section. POTASSIUM-STAT LAB STAT 12/13/2019 7:31 PM Re sults for this ELECTRICIAN HELPER procedure are i n the results section. SODIUM NA-STAT LAB STAT 12/13/2019 7:31 PM Re sults for this ELECTRICIAN HELPER procedure are i n the results section. BLOOD GAS, ARTERIAL STAT 12/13/2019 7:31 PM R esults for this ELECTRICIAN HELPER procedure are i n the results section. CALCIUM, IONIZED STAT 12/13/2019 7:31 PM Resu lts for this ELECTRICIAN HELPER procedure are i n the results section. BLOOD GAS, ARTERIAL STAT 12/13/2019 7:31 PM R esults for this ELECTRICIAN HELPER procedure are i n the results section. POCT-ACT Routine 12/13/2019 6:54 PM Results for this ELECTRICIAN HELPER procedure are i n the results section. HGB/HCT (H&H) - STAT STAT 12/13/2019 6:18 PM Results for this LAB ELECTRICIAN HELPER procedure are i n the results section. GLUCOSE-STAT LAB STAT 12/13/2019 6:18 PM Resu lts for this ELECTRICIAN HELPER procedure are i n the results section. POTASSIUM-STAT LAB STAT 12/13/2019 6:18 PM Re sults for this ELECTRICIAN HELPER procedure are i n the results section. SODIUM NA-STAT LAB STAT 12/13/2019 6:18 PM Re sults for this ELECTRICIAN HELPER procedure are i n the results section. BLOOD GAS, ARTERIAL STAT 12/13/2019 6:18 PM R esults for this ELECTRICIAN HELPER procedure are i n the results section. LACTIC ACID, ARTERIAL STAT 12/13/2019 6:18 PM Results for this ELECTRICIAN HELPER procedure are i n the results section. CALCIUM, IONIZED STAT 12/13/2019 6:18 PM Resu lts for this ELECTRICIAN HELPER procedure are i n the results section. BLOOD GAS, ARTERIAL STAT 12/13/2019 6:18 PM R esults for this ELECTRICIAN HELPER procedure are i n the results section. THROMBECTOMY-LOWER 12/13/2019 5:10 PM Ischemia ELECTRICIAN HELPER ANGIOGRAM-LOWER 12/13/2019 5:10 PM Ischemia EXTREMITY ELECTRICIAN HELPER HC ARTERIAL(RAFIQ W Routine 12/13/2019 12:51 PM Res ults for this DOPPLER)ONLY ELECTRICIAN HELPER procedure are i n the results section. HC ARTERIAL DOPPLER STAT 12/13/2019 12:51 PM R esults for this LEGS WINTER ELECTRICIAN HELPER procedure are i n the results section. URINALYSIS W/ REFLEX Routine 12/13/2019 11:33 AM Results for this URINE CULTURE ELECTRICIAN HELPER procedure are in the results section. URINE CULTURE Routine 12/13/2019 11:33 AM Results for this ELECTRICIAN HELPER procedure are i n the results section. CBC W/PLT COUNT & AUTO STAT 12/13/2019 11:31 AM Results for this DIFFERENTIAL ELECTRICIAN HELPER procedure are i n the results section. APTT STAT 12/13/2019 11:31 AM Results for this ELECTRICIAN HELPER procedure are i n the results section. PROTHROMBIN TIME/INR STAT 12/13/2019 11:31 AM Results for this ELECTRICIAN HELPER procedure are i n the results section. PHOSPHORUS STAT 12/13/2019 11:31 AM Results for this ELECTRICIAN HELPER procedure are i n the results section. MAGNESIUM STAT 12/13/2019 11:31 AM Results for this ELECTRICIAN HELPER procedure are i n the results section. CBC W/PLT COUNT & AUTO STAT 12/13/2019 11:31 AM Results for this DIFFERENTIAL ELECTRICIAN HELPER procedure are i n the results section. BASIC METABOLIC PANEL STAT 12/13/2019 11:31 AM Results for this (7) ELECTRICIAN HELPER procedure are i n the results section. XR CHEST 1 VIEW STAT 12/13/2019 11:20 AM Resul ts for this PORTABLE/BEDSIDE ELECTRICIAN HELPER procedure a re in the results section. POCT-ACT Routine 12/13/2019 10:38 AM Results for this ELECTRICIAN HELPER procedure are i n the results section. POCT-ACT Routine 12/13/2019 9:24 AM Results for this ELECTRICIAN HELPER procedure are i n the results section. POCT-ACT Routine 12/13/2019 9:10 AM Results for this ELECTRICIAN HELPER procedure are i n the results section. HGB/HCT (H&H) - STAT STAT 12/13/2019 8:13 AM Results for this LAB ELECTRICIAN HELPER procedure are i n the results section. GLUCOSE-STAT LAB STAT 12/13/2019 8:13 AM Resu lts for this ELECTRICIAN HELPER procedure are i n the results section. POTASSIUM-STAT LAB STAT 12/13/2019 8:13 AM Re sults for this ELECTRICIAN HELPER procedure are i n the results section. SODIUM NA-STAT LAB STAT 12/13/2019 8:13 AM Re sults for this ELECTRICIAN HELPER procedure are i n the results section. BLOOD GAS, ARTERIAL STAT 12/13/2019 8:13 AM R esults for this ELECTRICIAN HELPER procedure are i n the results section. CALCIUM, IONIZED STAT 12/13/2019 8:13 AM Resu lts for this ELECTRICIAN HELPER procedure are i n the results section. BLOOD GAS, ARTERIAL STAT 12/13/2019 8:13 AM R esults for this ELECTRICIAN HELPER procedure are i n the results section. REPAIR,EVAR-ENDOVASCUL 12/13/2019 7:03 AM Ruptured ab dominal AR AORTIC ANEURYSM ELECTRICIAN HELPER aortic aneurysm (AAA) (HCC) Special Needs (ICU BED NEEDED) (CELLAVISION MANUAL STAT 12/13/2019 4:22 AM R esults for this DIFF) ELECTRICIAN HELPER procedure are i n the results section. CBC WITH PLATELET COUNT STAT 12/13/2019 4:22 AM Results for this + MANUAL DIFF ELECTRICIAN HELPER procedure are in the results section. PHOSPHORUS STAT 12/13/2019 4:22 AM Results for this ELECTRICIAN HELPER procedure are i n the results section. MAGNESIUM STAT 12/13/2019 4:22 AM Results for this ELECTRICIAN HELPER procedure are i n the results section. CBC W/PLT+MANUAL DIFF STAT 12/13/2019 4:22 AM Results for this ELECTRICIAN HELPER procedure are i n the results section. HEMOGLOBIN A1C Routine 12/13/2019 4:22 AM Result s for this ELECTRICIAN HELPER procedure are i n the results section. BASIC METABOLIC PANEL STAT 12/13/2019 4:22 AM Results for this (7) ELECTRICIAN HELPER procedure are i n the results section. PREPARE RBC Routine 12/12/2019 10:21 PM Results for this ELECTRICIAN HELPER procedure are i n the results section. POCT-GLUCOSE METER Routine 12/12/2019 9:26 PM Re sults for this ELECTRICIAN HELPER procedure are i n the results section. PROTHROMBIN TIME/INR STAT 12/12/2019 6:32 PM Results for this ELECTRICIAN HELPER procedure are i n the results section. POCT-GLUCOSE METER Routine 12/12/2019 4:40 PM Re sults for this ELECTRICIAN HELPER procedure are i n the results section. BASIC METABOLIC PANEL Routine 12/12/2019 4:27 PM Results for this (7) ELECTRICIAN HELPER procedure are i n the results section. VASCULAR DIAGRAM -SCAN 12/12/2019 Resul ts for this procedure are i n the results section. ANTIBODY IDENTIFICATION STAT 12/11/2019 4:23 PM Aneurysm o f Results for this ELECTRICIAN HELPER infrarenal procedure are i n abdominal aorta the results (HCC) section. HC CAROTID DOPPLER WINTER Routine 12/11/2019 1:52 PM Aneurysm of Results for this ELECTRICIAN HELPER infrarenal procedure are i n abdominal aorta the results (HCC) section. XR CHEST 2 VIEWS Routine 12/11/2019 12:33 PM Aneurysm of Resu lts for this ELECTRICIAN HELPER infrarenal procedure are i n abdominal aorta the results (HCC) section. ECG 12-LEAD Routine 12/11/2019 12:01 PM ELECTRICIAN HELPER Procedure Note - Interface, External Ris In - 12/11/2019 1:28 PM ELECTRICIAN HELPER Ventricular Rate 59 BPM Atrial Rate 59 BPM P-R Interval 230 ms QRS Duration 88 ms Q-T Interval 490 ms QTC Calculation(Bazett) 485 ms P Zuni 60 degrees R Zuni 27 degrees T Zuni 71 degrees Sinus bradycardia with 1st d egree A-V block Prolonged QT Abnormal ECG When compared with ECG of 15:05, No significant change was fo und ECG 12-LEAD Routine 12/11/2019 12:01 PM Aneurysm of Results for this ELECTRICIAN HELPER infrarenal procedure are i n abdominal aorta the results (HCC) section. SARS-COV2/RT-PCR ([facility] Routine 12/11/2019 11:49 AM Pre-op test ing Results for this & REF LABS) ELECTRICIAN HELPER procedure are i n the results section. (CELLAVISION MANUAL Routine 12/11/2019 10:38 AM Aneurysm of R esults for this DIFF) ELECTRICIAN HELPER infrarenal procedure are i n abdominal aorta the results (HCC) section. CBC W/PLT COUNT & AUTO Routine 12/11/2019 10:38 AM Aneurysm of Results for this DIFFERENTIAL ELECTRICIAN HELPER infrarenal procedure are i n abdominal aorta the results (HCC) section. DIRECT AHG STAT 12/11/2019 10:38 AM Aneurysm of Results for this (GARTH)/DIRECT LORETA ELECTRICIAN HELPER infrarenal procedur e are in abdominal aorta the results (HCC) section. TYPE AND SCREEN, STAT 12/11/2019 10:38 AM Aneurysm of Resu lts for this AUTOMATED ELECTRICIAN HELPER infrarenal procedure are i n abdominal aorta the results (HCC) section. HEMOGLOBIN A1C Routine 12/11/2019 10:38 AM Aneurysm of Result s for this ELECTRICIAN HELPER infrarenal procedure are i n abdominal aorta the results (HCC) section. Pre-op testing LACTATE DEHYDROGENASE Routine 12/11/2019 10:38 AM Aneurysm of Results for this (LDH) ELECTRICIAN HELPER infrarenal procedure are i n abdominal aorta the results (HCC) section. URINALYSIS W/ Routine 12/11/2019 10:38 AM Aneurysm of Results for this MICROSCOPIC ELECTRICIAN HELPER infrarenal procedure are i n abdominal aorta the results (HCC) section. HEPATITIS C ANTIBODY Routine 12/11/2019 10:38 AM Aneurysm of Results for this ELECTRICIAN HELPER infrarenal procedure are i n abdominal aorta the results (HCC) section. LIPASE Routine 12/11/2019 10:38 AM Aneurysm of Results for this ELECTRICIAN HELPER infrarenal procedure are i n abdominal aorta the results (HCC) section. AMYLASE Routine 12/11/2019 10:38 AM Aneurysm of Results for this ELECTRICIAN HELPER infrarenal procedure are i n abdominal aorta the results (HCC) section. HEPATITIS B PANEL Routine 12/11/2019 10:38 AM Aneurysm of Res ults for this ELECTRICIAN HELPER infrarenal procedure are i n abdominal aorta the results (HCC) section. RETICULOCYTE COUNT Routine 12/11/2019 10:38 AM Aneurysm of Re sults for this ELECTRICIAN HELPER infrarenal procedure are i n abdominal aorta the results (HCC) section. APTT Routine 12/11/2019 10:38 AM Aneurysm of Results for this ELECTRICIAN HELPER infrarenal procedure are i n abdominal aorta the results (HCC) section. PROTHROMBIN TIME/INR Routine 12/11/2019 10:38 AM Aneurysm of Results for this ELECTRICIAN HELPER infrarenal procedure are i n abdominal aorta the results (HCC) section. PROTEIN, TOTAL Routine 12/11/2019 10:38 AM Aneurysm of Result s for this ELECTRICIAN HELPER infrarenal procedure are i n abdominal aorta the results (HCC) section. ALT (SGPT) Routine 12/11/2019 10:38 AM Aneurysm of Results for this ELECTRICIAN HELPER infrarenal procedure are i n abdominal aorta the results (HCC) section. AST (SGOT) Routine 12/11/2019 10:38 AM Aneurysm of Results for this ELECTRICIAN HELPER infrarenal procedure are i n abdominal aorta the results (HCC) section. BILIRUBIN, DIRECT Routine 12/11/2019 10:38 AM Aneurysm of Res ults for this ELECTRICIAN HELPER infrarenal procedure are i n abdominal aorta the results (HCC) section. BILIRUBIN, ADULT TOTAL Routine 12/11/2019 10:38 AM Aneurysm of Results for this ELECTRICIAN HELPER infrarenal procedure are i n abdominal aorta the results (HCC) section. ALKALINE PHOSPHATASE Routine 12/11/2019 10:38 AM Aneurysm of Results for this ELECTRICIAN HELPER infrarenal procedure are i n abdominal aorta the results (HCC) section. ALBUMIN Routine 12/11/2019 10:38 AM Aneurysm of Results for this ELECTRICIAN HELPER infrarenal procedure are i n abdominal aorta the results (HCC) section. HC LAB HIV-1 AG Routine 12/11/2019 10:38 AM Aneurysm of Resul ts for this W/HIV-1&2 AB ELECTRICIAN HELPER infrarenal procedure are i n abdominal aorta the results (HCC) section. BASIC METABOLIC PANEL Routine 12/11/2019 10:38 AM Aneurysm of Results for this (7) ELECTRICIAN HELPER infrarenal procedure are i n abdominal aorta the results (HCC) section. CBC W/PLT COUNT & AUTO Routine 12/11/2019 10:38 AM Aneurysm of Results for this DIFFERENTIAL ELECTRICIAN HELPER infrarenal procedure are i n abdominal aorta [...] are i n the results section. after 01/30/2019 Results POC ACTIVATED CLOTTING TIME (2020 11:24 AM ELECTRICIAN HELPER)Only the most recent of9 resultswithin the time period is included. Activated Clotting [address] [facility] Comment: [facility] : 74-137 seconds, Baseline CENTER : TESTED AT [address], [address] : Salary Manager/Reading Instructor ID = [id number] for CLAU GREGG Specimen Blood Performing Organization Address City/State/Zipcode Phone Number [address] [phone] CENTER ECG 12 lead (2020 10:50 AM ELECTRICIAN HELPER)Only the most recent of3 resultswithin the time period is included. Specimen Narrative Performed At Ventricular Rate 51 BPM GE MUSE Atrial Rate 166 BPM QRS Duration 92 ms Q-T Interval 524 ms QTC Calculation(Bazett) 482 ms P Zuni 41 degrees R Zuni -6 degrees T Zuni 56 degrees Sinus bradycardia Cannot rule out Anterior infarct , age u ndetermined Prolonged QT Abnormal ECG 18 DEC 2019 Sinus bradycardia replaced AVNRT ST no longer depressed precordial leads QT has shortened Confirmed by MD MUSHTAQ, RADHA ([id number]) on 2020 1:28:53 PM Procedure Note Interface, External Ris In - 2020 1:29 PM ELECTRICIAN HELPER Ventricular Rate 51 BPM Atrial Rate 166 BPM QRS Duration 92 ms Q-T Interval 524 ms QTC Calculation(Bazett) 482 ms P Zuni 41 degrees R Zuni -6 degrees T [place] 56 degrees Sinus bradycardia Cannot rule out Anterior infarct , age u ndetermined Prolonged QT Abnormal ECG 18 DEC 2019 Sinus bradycardia replaced AVNRT ST no longer depressed precordial leads QT has shortened Confirmed by MD MUSHTAQ, [facility] ([id number]) on 2020 1:28:53 PM Performing Organization Address City/State/Zipcode Phone Number [facility] CARDIAC CATH REPORT - SCAN (2020) Narrative Performed At This result has an attachment that is no t available. Ordered by an unspecified provider. SARS-CoV2/RT-PCR ([facility]) (01/03/2020 10:25 AM ELECTRICIAN HELPER)Only the most recent of3 resultswithin the time period is included. SARS-COV2/RT-PCR Negative Not Detected, [facility]' Negative, See [facility] external report CENTER for linked test SARS-COV-2 [facility] PERFORMING LAB [facility] Specimen Other - Nasopharyngeal wall structure (b ludwig structure) Narrative Performed At Negative result for this test determines that [facility] SARS-CoV-2 RNA was not present [...] the Act. Fact Sheet for Healthcare Providers: https://www.Nanosolar/sites/default/files/pro duct/documents/Fact_Sheet_HC_Providers_Lyra_SA RS-CoV-2.pdf Fact Sheet for Healthcare Patients: https://www.Nanosolar/sites/default/files/pro duct/documents/Fact_Sheet_Patients_Lyra_SARS-C oV-2.pdf Performing Laboratory: [address] [address] Performing Organization Address City/[facility]/Zipcode Phone Number [address] [phone] [place] POC-Glucose meter (12/19/2019 7:18 AM ELECTRICIAN HELPER)Only the most recent of21 results within the time period is included. Pathologist [facility] POC-Glucose Meter 121 (H) 70 - 110 mg/dL [facility] Comment: [facility] : TESTED AT [address], [address] CENTER : Salary Manager/Reading Instructor ID = [id number] for YESSI VERGARA Specimen Blood Performing Organization Address [facility]/Zipcode Phone Number [address] [phone] [place] CBC (hemogram only) (12/19/2019 4:49 AM ELECTRICIAN HELPER)Only the most recent of7 results within the time period is included. Pathologist Sig nature WBC 48.4 (H) 3.5 - 10.5 K/L [facility] RBC 2.60 (L) 4.63 - 6.08 M/L [facility] Hemoglobin 8.4 (L) 13.7 - 17.5 GM/DL [facility] Hematocrit 27.2 (L) 40.1 - 51.0 % [facility] MCV 104.6 (H) 79.0 - 92.2 fL [facility] MCH 32.3 (H) 25.7 - 32.2 pg [facility] MCHC 30.9 (L) 32.3 - 36.5 GM/DL [facility] RDW 16.7 (H) 11.6 - 14.4 % [facility] Platelets 139 (L) 150 - 450 K/CU MM [facility] MPV 10.6 9.4 - 12.4 fL [facility] nRBC 0 0 - 0 /100 WBC [facility] Specimen Blood Performing Organization Address [facility] Phone Number [address] [address] CENTER Phosphorus (12/19/2019 4:49 AM ELECTRICIAN HELPER)Only the most recent of9 resultswithin the time period is included. Pathologist Sig nature Phosphorus 2.9 2.3 - 4.7 mg/dL [facility] Specimen Blood Narrative Performed At Salary Manager [place] - [facility] Performing Organization Address [facility] Phone Number [address] [address] CENTER Magnesium (12/19/2019 4:49 AM ELECTRICIAN HELPER)Only the most recent of10 resultswithin the time period is included. Pathologist Sig nature Magnesium 2.1 1.6 - 2.6 mg/dL [facility] Specimen Blood Narrative Performed At Salary Manager [facility] Performing Organization Address [facility] Phone Number [address] [address] [place] Basic Metabolic Panel (12/19/2019 4:49 AM ELECTRICIAN HELPER)Only the most recent of12 results within the time period is included. Sodium 140 136 - 145 meq/L [facility] Potassium 3.7 3.5 - 5.1 meq/L [facility] Chloride 109 (H) 98 - 107 meq/L [facility] CO2 25 22 - 29 meq/L [facility] BUN 20 7 - 21 mg/dL [facility] Creatinine 1.29 (H) 0.57 - 1.25 [facility] mg/dL [facility] Glucose 130 (H) 70 - 105 mg/dL [facility] Calcium 8.6 8.4 - 10.2 [facility] mg/dL [facility] EGFR 54Comment: ESTIMATED mL/min/1.73 sq [facility] GFR IS NOT m [facility] ACCURATE [place] CREATININE CLEARANCE IN PREDICTING GLOMERULAR FILTRATION RATE. ESTIMATED GFR IS NOT APPLICABLE FOR DIALYSIS PATIENTS. Specimen Blood Narrative Performed At Salary Manager DEVIKA - MARIELA M [facility] Performing Organization Address City/[facility]/Zipcode Phone Number [facility] [address] [place] [address] CENTER aPTT (12/16/2019 5:13 AM ELECTRICIAN HELPER)Only the most recent of9 resultswithin the time period is included. Pathologist Sig nature PTT 39.6 (H) 22.5 - 36.0 seconds [facility] Specimen Blood Performing Organization Address City/[facility]/Zipcode Phone Number [facility] [address] [place] [address] CENTER Prepare RBC (12/14/2019 11:54 PM ELECTRICIAN HELPER)Only the most recent of2 resultswithin the time period is included. Pathologist Sig nature Unit ABO O Pos SAFETRACE TX UNIT NUMBER [id number] SAFETRACE [place] Status TX_TIMEINCHART SAFETRACE [place] Blood Bank Product RED BLOOD CELLS SAFETRACE TX PRODUCT CODE [id number] SAFETRACE TX Unit ABO O Pos SAFETRACE TX UNIT NUMBER [id number] SAFETRACE TX Status WORK IN PROGRESS SAFETRACE TX Blood Bank Product RED BLOOD CELLS SAFETRACE TX PRODUCT CODE [id number] SAFETRACE TX Unit ABO A Pos SAFETRACE TX UNIT NUMBER [id number] SAFETRACE TX Status TX_TIMEINCHART SAFETRACE TX Blood Bank Product RED BLOOD CELLS SAFETRACE TX PRODUCT CODE [id number] SAFETRACE TX Unit ABO A Pos SAFETRACE TX UNIT NUMBER [id number] SAFETRACE TX Status WORK IN PROGRESS SAFETRACE TX Blood Bank Product RED BLOOD CELLS SAFETRACE TX PRODUCT CODE [id number] SAFETRACE TX CROSSMATCH INCOMPATIBLE SAFETRACE TX CROSSMATCH INCOMPATIBLE SAFETRACE TX CROSSMATCH INCOMPATIBLE SAFETRACE TX CROSSMATCH INCOMPATIBLE SAFETRACE TX Performing Organization Address City/State/Zipcode Phone Number SAFETRACE [place] XR chest 1 view portable / bedside (12/14/2019 7:50 AM ELECTRICIAN HELPER)Only the most recent of3 resultswithin the time period is included. Specimen Narrative Performed At FINAL REPORT GE [facility] Chest, one view. HISTORY: post-extubation COMPARISON: [...] Report Verified Date/Time: 12/14/2019 08:16:23 Reading Location: [facility] C013Y CT Body R eading Room Procedure Note Interface, External Ris In - 12/14/2019 8:18 AM ELECTRICIAN HELPER FINAL REPORT Chest, one view. HISTORY: post-extubation [...] Verified Date/Time: 12/14/2019 0 8:16:23 Reading Location: [facility] B1 C013Y CT Body R eading Room Performing Organization Address City/[facility] Phone Number [facility] Blood gas, arterial (12/14/2019 5:07 AM ELECTRICIAN HELPER)Only the most recent of6 results within the time period is included. Pathologist Sig nature pH, Arterial 7.39 7.35 - 7.45 [facility] pCO2, Arterial 36 35 - 45 mm Hg [facility] pO2, Arterial 112 (H) 80 - 90 mm Hg [facility] O2 Sat, Arterial 97.8 (H) 96.0 - 97.0 % [facility] HCO3, Arterial 21 21 - 29 mmol/L [facility] Base Excess, Arterial -3.4 (L) -2.0 - 3.0 [facility] mmol/L [facility] Patient Temperature 38.4 [facility] FIO2 60.0 [facility] Specimen Blood, Arterial Performing Organization Address City/[facility] Phone Number [address] [address] CENTER Calcium, Ionized (12/13/2019 11:12 PM ELECTRICIAN HELPER)Only the most recent of5 resultswithin the time period is included. Pathologist Sig nature Calcium, Ion 1.20 1.12 - 1.27 mmol/L [facility] pH, Blood 7.31 [facility] Specimen Blood Performing Organization Address City/[facility] Phone Number [address] [address] CENTER Prothrombin time/INR (12/13/2019 11:10 PM ELECTRICIAN HELPER)Only the most recent of4 results within the time period is included. Pathologist Sig nature Protime 17.6 (H) 11.9 - 14.2 seconds [facility] INR 1.49 <=5.90 [facility] Specimen Blood Narrative Performed At Effective 07/04/2018: PT Reference Range [facility] Change New: 11.9-14.2 Previous: 11.7-14.7 RECOMMENDED COUMADIN/WARFARIN INR THERAPY RANGES STANDARD DOSE: 2.0-3.0 Includes: PROPHYLAXIS for venous thrombosis, systemic embolization; TREATMENT for venous thrombosis and/or pulmonary embolus. HIGH RISK: Target INR is 2.5-3.5 for patients wiht mechanical heart valves. Performing Organization Address City/[facility] Phone Number [address] [address] CENTER Potassium-Stat Lab (12/13/2019 8:48 PM ELECTRICIAN HELPER)Only the most recent of4 results within the time period is included. Pathologist Sig nature Potassium 4.0 3.6 - 5.5 meq/L [facility] Specimen Blood, Arterial Performing Organization Address City/[facility] Phone Number [address] [address] CENTER Sodium Na-Stat Lab (12/13/2019 8:48 PM ELECTRICIAN HELPER)Only the most recent of4 results within the time period is included. Pathologist Sig nature Sodium 138 136 - 145 meq/L [facility] Specimen Blood, Arterial Performing Organization Address [facility] Phone Number [address] [address] CENTER Glucose-Stat Lab (12/13/2019 8:48 PM ELECTRICIAN HELPER)Only the most recent of4 resultswithin the time period is included. Pathologist Sig [facility] Glucose 138 (H) 70 - 110 mg/dL [facility] Specimen Blood, Arterial Performing Organization Address [facility]/Zipcode Phone Number [address] [address] [place] HGB/HCT (H&H)-Stat Lab (12/13/2019 8:48 PM ELECTRICIAN HELPER)Only the most recent of4 resultswithin the time period is included. Pathologist Sig [facility] Hemoglobin 10.1 (L) 13.0 - 16.8 GM/DL [facility] Hematocrit 30.0 (L) 40.0 - 50.0 % [facility] Specimen Blood, Arterial Performing Organization Address [facility] Phone Number [address] [address] [place] Transfuse Leuko-Red RBC (12/13/2019 7:48 PM ELECTRICIAN HELPER)Only the most recent of2 resultswithin the time period is included.Lactic Acid, Arterial (12/13/2019 6:18 PM ELECTRICIAN HELPER) Pathologist Sig [facility] Lactate, Art 0.7 0.5 - 2.2 mmol/L [facility] Specimen Blood, Arterial Narrative Performed At Salary Manager ID - BS [facility] Performing Organization Address [facility] Phone Number [address] [address] CENTER RAFIQ's Only(Ankle/Brachial Index) (12/13/2019 12:51 PM ELECTRICIAN HELPER) Pathologist Sig [facility] Ejection Fraction [facility] ECHO HEARTLAB [facility] Specimen Impressions Performed At Right Impression [facility] 1. The posterior tibial and dorsalis pedis [...] PV LAB - Lower Extremity Arterial Proced [facility] ECHO HEARTLAB [facility] Demographics Patient Name DUKE TERRY Date of Study 12/13/2019 DEBORAH III Age 74 Visit Number [id number] Gender Male Accession Number [id number] Date of 1945 Referring delano payne Room Number 2C20 Physician Manager Registration Cm Anderson RVS Interpreting Cyndi Pastor RVT [...] External Ris In - 12/14/2019 9:47 AM ELECTRICIAN HELPER PV LAB - Lower Extremity Arterial Procedure Demographics Patient Name DUKE TERRY ate of Study 12/13/2019 DEBORAH III A ge 74 Visit Number [id number] G willard Male Accession Number [id number] D ate of 1945 Referring delano juarez Number [id number] Physician Manager Registration Cm Anderson RVS I nterpreting Cyndi Pastor [...] cm Performing Organization Address City/State/Zipcode Phone Number [facility] ECHO [facility] Arterial doppler legs bilateral (12/13/2019 12:51 PM ELECTRICIAN HELPER) [facility] nature Ejection Fraction [facility]CHO [facility] Specimen [facility]ressions Performed At Right Impression [facility] ECHO HEARTLAB [facility] 1. The common femoral, profunda [...] + + + + + + !Prox BOTTLE WASHING MACHINE OPERATOR ! !143 ! ! ! !0 ! ! ! + + + + + + + + + + !Mid BOTTLE WASHING MACHINE OPERATOR ! !23.6 ! ! ! !0 ! ! ! + + + + + + + + + + !Dist BOTTLE WASHING MACHINE OPERATOR ! !0 ! ! ! !0 ! [...] + + + + Narrative Performed At [facility] - Lower Extremity Arterial Duplex [facility] HEARTLAB [facility] Demographics Patient Name DUKE TERRY Date of Study 12/13/2019 DEBORAH III Age 74 Visit Number [id number] Gender Male Accession Number [id number] Date of 1945 Referring Oneil Wick Room Number [id number] Physician Manager Registration Cm Anderson RVS Interpreting Cyndi Pastor RVT [...] External Ris In - 12/14/2019 9:47 AM ELECTRICIAN HELPER PV LAB - Lower Extremity Arterial Duplex Demographics Patient Name DUKE TERRY ate of Study 12/13/2019 DEBORAH III A ge 74 Visit Number [id number] G willard Male Accession Number [id number] D ate of 1945 Referring Oneil juarez Number [id number] Physician Manager Registration Cm Anderson RVS I nterpreting Cyndi Pastor [...] + + + + + + !Prox BOTTLE WASHING MACHINE OPERATOR ! !143 ! ! ! !0 ! ! ! + + + + + + + + + + !Mid BOTTLE WASHING MACHINE OPERATOR ! !23.6 ! ! ! !0 ! ! ! + + + + + + + + + + !Dist BOTTLE WASHING MACHINE OPERATOR ! !0 ! ! ! !0 ! [...] + Reflex to Culture (12/13/2019 11:33 AM ELECTRICIAN HELPER) Color, UA Light Yellow [facility] Clarity, UA Cloudy [facility] Specific [place], 1.036 (H) 1.001 - 1.035 [facility] pH, UA 6.0 5.0 - 8.0 [facility] Protein, UA 30 mg/dL (A) Negative [facility] Glucose, UA Negative Negative [facility] Ketones, UA Negative Negative [facility] Bilirubin, UA Negative Negative [facility] Blood, UA Small (A) Negative [facility] Nitrite, UA Negative Negative [facility] Leukocytes, UA Large (A) Negative [facility] Urobilinogen, UA 0.2 0.2 - 1.0 mg/dL [facility] RBC, UA 18 /HPF [facility] WBC, UA 769 /HPF [facility] Bacteria, UA Rare [facility] Specimen Source [facility] Specimen Urine - Urinary catheter, device (physic al object) Narrative Performed At Salary Manager ID - [auto] [facility] Salary Manager ID - tech Performing Organization Address City/[facility]/Zipcode Phone Number [address] [address] CENTER Urine culture (12/13/2019 11:33 AM ELECTRICIAN HELPER) Pathologist Sig nature Result No growth [facility] ICAL [place] Specimen Urine - Urinary catheter, device (physic al object) Performing Organization Address [facility]/Zipcode Phone Number [address] [address] [place] CBC with platelet count + automated diff (12/13/2019 11:31 AM ELECTRICIAN HELPER)Only the most recent of2 resultswithin the time period is included. Pathologist Sig nature WBC 67.7 (HH) 3.5 - 10.5 K/L [facility] RBC 2.72 (L) 4.63 - 6.08 M/L [facility] Hemoglobin 8.6 (L) 13.7 - 17.5 GM/DL [facility] Hematocrit 26.8 (L) 40.1 - 51.0 % [facility] MCV 98.5 (H) 79.0 - 92.2 fL [facility] MCH 31.6 25.7 - 32.2 pg [facility] MCHC 32.1 (L) 32.3 - 36.5 GM/DL [facility] RDW 17.5 (H) 11.6 - 14.4 % [facility] Platelets 155 150 - 450 K/CU MM [facility] MPV 10.4 9.4 - 12.4 fL [facility] nRBC 0 0 - 0 /100 WBC [facility] Specimen Blood Performing Organization Address City/State/Zipcode Phone Number [facility] [address] [place] [address] CENTER CBC with platelet count + manual diff (12/13/2019 4:22 AM ELECTRICIAN HELPER) Pathologist Sig nature WBC 64.8 (HH) 3.5 - 10.5 K/L [facility] RBC 2.93 (L) 4.63 - 6.08 M/L [facility] Hemoglobin 9.1 (L) 13.7 - 17.5 GM/DL [facility] Hematocrit 28.7 (L) 40.1 - 51.0 % [facility] MCV 98.0 (H) 79.0 - 92.2 fL [facility] MCH 31.1 25.7 - 32.2 pg [facility] MCHC 31.7 (L) 32.3 - 36.5 GM/DL [facility] RDW 17.4 (H) 11.6 - 14.4 % [facility] Platelets 172 150 - 450 K/CU MM [facility] MPV 10.1 9.4 - 12.4 fL [facility] nRBC 0 0 - 0 /100 WBC [facility] Specimen Blood Performing Organization Address City/State/Zipcode Phone Number [facility] [address] [place] [address] CENTER Manual Differential (12/13/2019 4:22 AM ELECTRICIAN HELPER)Only the most recent of2 results within the time period is included. Pathologist Sig nature % Neutros 4 % [facility] % Lymphs 92 % [facility] % Eos 2 % [facility] % [place] 1 (H) 0 - 0 % [facility] % Atypical Lymphs 1 (H) 0 - 0 % [facility] # Neutros 2.59 1.78 - 5.38 [facility] # Lymphs 59.62 (H) 1.32 - 3.57 [facility] # Eos 1.30 (H) 0.04 - 0.54 [facility] # [place] 0.65 (H) 0.00 - 0.00 [facility] # Atypical Lymphs 0.65 (H) 0.00 - 0.00 [facility] Total Counted 100 [facility] RBC Morphology Normal [facility] WBC Morphology Normal [facility] Platelet Morphology Normal [facility] Specimen Blood Narrative Performed At Salary Manager ID - [id number] [facility] Performing Organization Address City/State/Zipcode Phone Number [facility] [address] [place], [place] [phone] CENTER Hemoglobin A1c (12/13/2019 4:22 AM ELECTRICIAN HELPER)Only the most recent of2 resultswithin the time period is included. Pathologist Sig nature Hemoglobin A1C 5.2 4.3 - 6.1 % [facility] Specimen Blood Narrative Performed At Please recheck [facility] Please recheck Performing Organization Address City/State/Zipcode Phone Number [facility] [address] [place] [address] CENTER VASCULAR DIAGRAM -SCAN (12/12/2019) Narrative Performed At This result has an attachment that is no t available. Ordered by an unspecified provider. Antibody identification (12/11/2019 4:23 PM ELECTRICIAN HELPER) ANTIBODY ID UNID IgG SAFETRACE [place] (MAREK) WARM AUTO AB Antibody Consult SIGNED OUTComment: Warm SAFETRACE [place] panagglutinin detected, ok to transfuse incompatible bloodElectronic Signature: Shmuel Woo M.D. Specimen Performing Organization Address City/[facility] [employer] Phone Number [place] Carotid doppler bilateral (12/11/2019 1:52 PM ELECTRICIAN HELPER) Pathologist Sig nature Ejection Fraction [facility] ECHO HEARTLAB [facility] Specimen Impressions Performed At Right Impression [facility] ECHO HEARTLAB [facility] 1. There is <50% diameter [...] At PV LAB - Carotid Duplex Study [facility] ECHO HEARTLAB MKCK[facility]ON [facility] Demographics Patient Name DUKE TERRY Date of Study 12/11/2019 DEBORAH III Age 74 Visit Number [id number] Gender Male Accession Number [id number] Date of 1945 Referring Casey Payne NP Room Number Physician Manager Registration Peter Forbes T Interpreting Caryl Gao, Physician [...] External Ris In - 12/12/2019 7:51 AM ELECTRICIAN HELPER [facility] LAB - Carotid Duplex Study Demographics Patient Name DUKE TERRY D ate of Study 12/11/2019 DEBORAH III A ge 74 Visit Number [id number] G willard Male Accession Number [id number] D ate of 1945 Referring MUNA Ziegler Number Physician Manager Registration Peter Forbes T I nterpreting Norman Pastor [...] V 0.85.ICAEDV/CCAEDV 0.94. Performing Organization Address [facility] Phone Number SLE ECHO HEARTLAB MKCKESSON CPACS XR chest 2 views (12/11/2019 12:33 PM ELECTRICIAN HELPER) Specimen Narrative Performed At FINAL REPORT GE [...] Report Verified Date/Time: 12/11/2019 13:32:39 Reading Location: [employer] y Reading Room Procedure Note Interface, External Ris In - 12/11/2019 1:34 PM ELECTRICIAN HELPER FINAL REPORT PA and Lateral views of the chest dated 12/11/2019 Clinical information: pre-op Comment: Heart is normal in size. Thora cic aorta is ectatic. Pulmonary vasculature is unremarkable. L ungs are clear. No pulmonary infiltrate or pleural effusion is presen t. Impression: No active cardiopulmonary d isease. Signed: Vamsi Johns MD Report Verified Date/Time: 12/11/2019 1 3:32:39 Reading Location: [employer] y Reading Room Performing Organization Address [facility] Phone Number GE RIS Type and screen, automated (12/11/2019 10:38 AM ELECTRICIAN HELPER) ABO/RH AUTOMATED A POSITIVE [facility] (BEAKER) [facility] Ab Scrn POSITIVEComment: [address] Specimen Blood Performing Organization Address [facility]/Zipcode Phone Number [facility] [address] [place] [address] HIV-1 Antigen with HIV-1/2 Antibody (12/11/2019 10:38 AM ELECTRICIAN HELPER) Pathologist Sig nature HIV-1 Antigen with Nonreactive Nonreactive [facility] HIV 1&2 Antibody [facility] Specimen Blood Narrative Performed At Salary Manager ID - ADMIN [facility] Performing Organization Address City/[facility] Phone Number [address] [address] [place] Hepatitis B Panel (12/11/2019 10:38 AM ELECTRICIAN HELPER) Pathologist Sig nature Hep B Core Total Ab Nonreactive Nonreactive [facility] Hep B S Ab <8.0 <8.0 mIU/mL [facility] HBsAg Screen Nonreactive Nonreactive [facility] Specimen Blood Narrative Performed At Salary Manager ID - ADMIN [facility] Performing Organization Address [facility] Phone Number [address] [address] [place] Hepatitis C antibody (12/11/2019 10:38 AM ELECTRICIAN HELPER) Pathologist Sig nature Hepatitis C Ab Nonreactive Nonreactive [facility] Specimen Blood Narrative Performed At Salary Manager ID - ADMIN [facility] Performing Organization Address [facility] Phone Number [address] [address] [place] Urinalysis w/Microscopic (12/11/2019 10:38 AM ELECTRICIAN HELPER) Color, UA Light Yellow [facility] Clarity, UA Hazy [facility] Specific [place], 1.011 1.001 - 1.035 [facility] pH, UA 6.5 5.0 - 8.0 [facility] Protein, UA 10 mg/dL (A) Negative [facility] Glucose, UA 1000 mg/dL (A) Negative [facility] Ketones, UA Negative Negative [facility] Bilirubin, UA Negative Negative [facility] Blood, UA Small (A) Negative [facility] Nitrite, UA Negative Negative [facility] Leukocytes, UA Large (A) Negative [facility] Urobilinogen, UA 0.2 0.2 - 1.0 mg/dL [facility] RBC, UA 4 /HPF [facility] WBC, UA 152 /HPF [facility] Mucus Rare [facility] Squam Epithel, UA <1 /HPF [facility] Specimen Source [facility] Specimen Urine Narrative Performed At Salary Manager ID - [auto] [facility] Salary Manager ID - tech Performing Organization Address [facility] Phone Number [address] [address] CENTER Reticulocyte count (12/11/2019 10:38 AM ELECTRICIAN HELPER) Pathologist Sig nature % Retic 3.3 (H) 0.5 - 1.8 % [facility] Specimen Blood Narrative Performed At Salary Manager ID - [id number] [facility] Performing Organization Address [facility] Phone Number [address] [address] C[place] Direct [facility] (GARTH)/Direct Loreta (12/11/2019 10:38 AM ELECTRICIAN HELPER) Pathologist Sig nature Direct [facility]HG-IGG POSITIVEComment [facility] 4+ [facility] Direct [facility]-C3B, C3D POSITIVEComment [facility] : Micro+ [facility] Specimen Blood Performing Organization Address [facility] Phone Number [address] [address] ALT (SGPT) (12/11/2019 10:38 AM ELECTRICIAN HELPER) Pathologist Sig nature ALT 12 6 - 55 U/L [facility] Specimen Blood Narrative Performed At Salary Manager ID - ADMIN [facility] Performing Organization Address City/[facility] Phone Number [address] [address] C[place] AST (SGOT) (12/11/2019 10:38 AM ELECTRICIAN HELPER) Pathologist Sig nature AST 12 5 - 34 U/L [facility] Specimen Blood Narrative Performed At Salary Manager ID - ADMIN [facility] Performing Organization Address [facility] Phone Number [address] [address] CENTER Protein, total (12/11/2019 10:38 AM ELECTRICIAN HELPER) Pathologist Sig [facility] Protein, Total 6.1 6.0 - 8.3 gm/dL [facility] Specimen Blood Narrative Performed At Salary Manager ID - ADMIN [facility] Performing Organization Address [facility] Phone Number [address] [address] [facility] Alkaline phosphatase (12/11/2019 10:38 AM ELECTRICIAN HELPER) Pathologist Sig nature Alkaline Phosphatase 93 40 - 150 U/L [facility] Specimen Blood Narrative Performed At Salary Manager ID - ADMIN [facility] Performing Organization Address City/[facility] Phone Number [address] [address] CENTER Lipase (12/11/2019 10:38 AM ELECTRICIAN HELPER) Pathologist Sig nature Lipase 22 8 - 78 U/L [facility] Specimen Blood Narrative Performed At Salary Manager ID - ADMIN [facility] Performing Organization Address City/State/Zipcode Phone Number [address] [address] CENTER Lactate dehydrogenase (LDH) (12/11/2019 10:38 AM ELECTRICIAN HELPER) Pathologist Sig nature LDH 177 125 - 220 U/L [facility] Specimen Blood Narrative Performed At Salary Manager ID - ADMIN [facility] Performing Organization Address [facility] Phone Number [address] [address] [facility] Bilirubin, direct (12/11/2019 10:38 AM ELECTRICIAN HELPER) Pathologist Sig nature Bilirubin, Direct 0.4 0.1 - 0.5 mg/dL [facility] Specimen Blood Narrative Performed At Salary Manager ID - ADMIN [facility] Performing Organization Address [facility] Phone Number [address] [address] [place] Bilirubin, adult total (12/11/2019 10:38 AM ELECTRICIAN HELPER) Pathologist Sig nature Total Bilirubin 0.9 0.2 - 1.2 mg/dL [facility] Specimen Blood Narrative Performed At Salary Manager ID - ADMIN [facility] Performing Organization Address [facility] Phone Number [address] [address] C[place] Amylase (12/11/2019 10:38 AM ELECTRICIAN HELPER) Pathologist Sig nature Amylase 30 25 - 125 U/L [facility] Specimen Blood Narrative Performed At Salary Manager ID - ADMIN [facility] Performing Organization Address [facility] Phone Number [address] [address] C[place] Albumin (12/11/2019 10:38 AM ELECTRICIAN HELPER) Pathologist Sig nature Albumin 4.1 3.5 - 5.0 g/dL [facility] Specimen Blood Narrative Performed At Salary Manager ID - ADMIN [facility] Performing Organization Address City/State/Zipcode Phone Number [facility] [address] [place] [address] CENTER Pulmonary Funct Lab Spirometry (11/21/2019 10:30 AM CDT) Narrative Performed At Bianca Ly, MARIBEL, NATURAL GAS TREATING UNIT OPERATOR 020 12:31 PM [facility] PFT CHARTING REPORT Infection Control/Hand Hygiene procedure s followed throughout the encounter with patient: Yes Patient Identification Method: Patient n bairon verified on armband, and Medical record on armband, Is the order complete?: Yes Account ID#: [id number] Patient Name: Duke Terry III Birthdate: 1945 [...] SpO2 95 98 99 Study Date: 11/21/19 [facility] Time: 1050 ASSESSMENT History & Physical Mode of Arrival: Wheelchair Pulse: 60 Resp: 20 SPO2: 99 % on RA Pain Assessment Pain:None TESTING/THERAPEUTICS Medications ordered or required for pro cedure: Albuterol, PT EDUCATION/INSTRUCTIONS Barriers to learning: No known barriers to learning. Learning need identified: Yes, Patient/ Family/Guradian was informed of the ordered study by the martha edmonsdon Barriers to performing study or treatme nt: [...] evaluation, multiplanar reconstruction, maximum intensity projections, and [employer] FireEye 3-D off-line postprocessing were performed on a dedic ated stand-alone workstation under the direct supervision of the inte [facility] physician. FINDINGS: Potential study limitations: [...] nonobstructing atherosclerotic changes throughout the abdominal aorta. Architecture Department Chair dimensions of the thoraci c aorta are [...] Report Verified Date/Time: 11/05/2019 14:08:15 Reading Location: [facility] [place] 3 - B01.625 Procedure Note Interface, External [...] evaluation, multiplanar reconstruction, maximum intensity projections, and [employer] FireEye 3-D off-line postprocessing were performed on a Intell[employer] ated stand-alone workstation under the direct supervision of the inte [facility] physician. FINDINGS: Potential study limitations: [...] nonobstructing atherosclerotic changes throughout the abdominal aorta. Architecture Department Chair dimensions of the thoraci c aorta are [...] Verified Date/Time: 11/05/2019 1 4:08:15 Reading Location: [address] B01.625 Performing Organization Address City/State/Zipcode Phone Number [employer] CT/CTA abdomen & pelvis - For AAA (11/05/2019 8:01 AM CDT) Specimen Narrative Performed At FINAL REPORT [employer] EXAM: CTA OF THE THORACOABDOMINAL AORTA AND [...] under the direct supervision of the inte [facility] physician. FINDINGS: Potential study limitations: [...] nonobstructing atherosclerotic changes throughout the abdominal aorta. Architecture Department Chair dimensions of the thoraci c aorta are [...] correlate with this patient bladder cancer. Signed: iKm Hamilton MD Report Verified Date/Time: 11/05/2019 14:08:15 Reading Location: [facility] [place] 3 - B01.625 Procedure Note Interface, External [...] workstation under the direct supervision of the [facility] physician. FINDINGS: Potential study limitations: None. LINES/ [...] nonobstructing atherosclerotic changes throughout the abdominal aorta. Architecture Department Chair dimensions of the thoraci c aorta are [...] Verified Date/Time: 11/05/2019 1 4:08:15 Reading Location: [place] [address] Performing Organization Address City/State/Zipcode Phone Number [facility] POC-Creatinine (11/05/2019 7:25 AM CDT) POC-Creatinine 1.7 (H)Comment: : 0.6 - 1.3 [facility] TESTED AT [facility] mg/dL [facility] [address] [place] [id number]: Salary Manager/Technicia n ID = [id number] for IRVIN LOMBARDI POC-EGFR 40 mL/min/1.73M2 [facility] Specimen Blood Performing Organization Address City/[facility]/Zipcode Phone Number [facility] [address] [place], [place] [id number] CENTER after 01/30/2019 Insurance Payer Benefit Plan / Subscriber ID Effective Dates Phone Addre ss Type Group MEDICARE MEDICARE A B [id number] 2009-Presen Medicare [facility] [id number] 2019-Present [employer] SUPPLEMENT/[facility] [employer] Advance Directives For more information, please contact: [phone] Code Status Date Activated Date Inactivated Comments [...]
--- OUTSIDE RECORDS SUMMARY | 2020-01-31 06:41 | XMS REPORT | Continuity of Care Document ---
:1945 Author Organization [employer] Care Team Providers Name Role Phone [employer] Unavailable Un available Problems Problem Status Onset Classification Date Comments Sourc e Date Reported Obstructive and 05/27/19 06/01/2017 [place] reflux uropathy, 18 Yogesh d unspecified Hematuria, 05/27/19 06/01/2017 [place] unspecified 18 [place] LUMBAR STENOSIS Active 08/20/[id number] M54.16 - Active 07/21/19 OPIMarcio "RADICULOPATHY, 17 Herm torin LUMBAR REGION" Cerebrovascular Resolved Problem 03/27/2018 Mis terrence accident Neuro, (disorder) [facility], PRECIOUS Clements,Diana Chavez, PRECIOUS [facility] [place] Hematoma Resolved Problem 03/27/2018 [facility] (disorder) Neuro,[facility], PRECIOUS Clements,M Jaquelin Chavez, OPIMarcio [facility] [place] 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 to 8.6 MG Oral Rachelle-Colace. Tablet Docusate Sodium 1 tab, PO, Active 05/29/ Gray gar 50 MG / BID, X 14 day, 2017 [facility] sennosides, LONG-TERM # 28 tab, 0 8.6 MG Oral Refill(s), Tablet Pharmacy: [facility] [id number] ciprofloxacin 500 500 mg = 1 Active [place] mg oral tablet tab, PO, Q12H, 2018 [place] X 7 day, # 14 tab, 0 Refill(s), Pharmacy: [facility] [id number] Demarcus Notes: May Inactive Sugar interfere 2018 [...] No Longer Sugar MG / Hydrocodone as: Carr Active 2017 [place] Bitartrate 5 MG 325/5) [...] MG TAB, Dosing Oral Tablet Weight 89.545, [Carr 5/325] kg, ONCE, STAT, Start date: 05/26/17 [...] DO NOT Inactive [place] CRUSH. 2017 [facility] Lisinopril Notes: (Same No Longer Javad as as: Prinivil, Active 2017 Medical Zestril) [place] Famotidine 20 MG 20 mg = 1 tab, Active [facility] Oral Tablet PO, BID, # 20 2017 Medica l tab, 0 Center Refill(s) magnesium citrate 8.725 gm = 150 No Longer 09/23 [facility] 58.2 MG/ML Oral ml, PO, Daily, Active 2016 M edical Solution X 2 day, # 300 Center mL, 0 Refill(s) Acetaminophen 325 1 tab, PO, Active [facility] MG / Hydrocodone Q6H, PRN for 2017 N[place] dical Bitartrate 10 MG pain, X 14 Cent er Oral Tablet day, # 90 tab, [Carr 10/325] 0 Refill(s) Methocarbamol 500 500 mg = 1 Active [facility] MG Oral Tablet tab, PO, Q8H, 2017 Med ical [Robaxin] PRN Spasms, X Center 10 day, # 30 tab, 0 Refill(s) {21 See Active [facility] (Methylprednisolo Instructions, 2017 Medical ne 4 [...] 2017 Medical (Do Not Crush) Center sennosides, LONG-TERM Notes: (Same No Longer [facility] [place] as: Senokot) Active 2017 Medical [...] Acetaminophen 325 Notes: Do not No Longer [place] MG / Hydrocodone exceed 4gm/day Active 2016 [facility] Bitartrate 10 MG of Center Oral Tablet acetaminophen. [Carr 10/325] (Same as: Carr 325/10) Dilaudid Notes: Same No Longer [facility] as: Dilaudid Active 2017 Medical [place] Bisacodyl Notes: (Same No Longer [place] As: Dulcolax, Active 2016 [facility] Bisco-Lax) Center phenol Notes: No Longer [facility] Chloraseptic Active 2016 Medical [place] (Same Center as: Chloraseptic, Sore Throat [place]) WASTE: F/P - Black; E - Municipal Trash Bin Melatonin 3 MG Notes: (Same No Longer [facility] Extended Release as: Melatonin) Active 2017 Medical Tablet Center Benadryl Notes: (Same No Longer [facility] as: Benadryl) Active 2017 Medical Center ceFAZolin Notes: Same No Longer [facility] as: Ancef Active 2016 Medical Center Allergies, Adverse Reactions, Alerts No Known Medication Allergies Immunizations No Data Provided for This Section Results Order Name Results Value Reference Date Interpretation Comments Sulema rce Range HEMATOLOGY MCHC 32.2 32.0 - 05/29 Sugar 36.0 2018 [facility] HEMATOLOGY MPV 8.6 7.4 - 10.4 05/29 [facility] HEMATOLOGY Platelet 222 133 - 450 [...] HEMATOLOGY Platelet 225 133 - 450 05/28 [facility] HEMATOLOGY RDW 16.4 11.5 - 05/28 [place] 14.5 [place] HEMATOLOGY MCH 27.8 27.0 - 05/28 [place] 31.0 [place] HEMATOLOGY MCHC 32.2 32.0 - 05/28 [place] 36.0 [facility] HEMATOLOGY MCV 86.2 80.0 - 05/28 [place] 94.0 [place] HEMATOLOGY Hct 35.5 42.0 - 05/28 [place] 54.0 [facility] HEMATOLOGY MPV 8.2 7.4 - 10.4 05/28 Sugar [facility] HEMATOLOGY Hgb 11.4 14.0 - 05/28 [place] 18.0 [place] HEMATOLOGY RBC 4.13 4.70 - 05/28 [place] 6.10 [place] HEMATOLOGY WBC 51.0 3.7 - 10.4 05/28 Result Comment: [facility] Critical Result(s) called to HANDY Garcia at 05/28/2017 05:59 by PRIMER SUPERVISOR. Read back OK. CHEM PANEL eGFR 68 05/27 Result Comment: The [facility] eGFR is calculated using the CKD-EPI [...] 0.0 - 0.2 05/27 [place] /2017 [facility] HEMATOLOGY Anisocyte 1+ None Seen 05/27 [place] *ABN* /2017 [place] (05/27/17 8:34 AM) HEMATOLOGY Eosinophils 0.2 0.0 - 0.5 05/27 [place] # /2017 [facility] HEMATOLOGY Segs 19.3 45.0 - 05/27 [place] 75.0 /2017 [facility] HEMATOLOGY Plt Morph Normal 05/27 [place] (05/27/17 8:34 AM) /2017 [facility] HEMATOLOGY Lymphocytes 78.6 20.0 - 05/27 [place] 40.0 /2017 [facility] HEMATOLOGY Platelet 213 133 - 450 05/27 [place] /2017 [facility] HEMATOLOGY MPV 8.5 7.4 - 10.4 05/27 [place] /2017 [facility] HEMATOLOGY MCHC 33.0 32.0 - 05/27 [place] 36.0 [facility] HEMATOLOGY RDW 16.4 11.5 - 05/27 [place] 14.5 [facility] HEMATOLOGY Hgb 12.4 14.0 - 05/27 [place] 18.0 [facility] HEMATOLOGY MCV 86.8 80.0 - 05/27 [place] 94.0 [facility] HEMATOLOGY Hct 37.4 42.0 - 05/27 [place] 54.0 [facility] HEMATOLOGY MCH 28.7 27.0 - 05/27 [place] 31.0 /2017 [facility] HEMATOLOGY WBC 56.8 3.7 - 10.4 05/27 Result /2017 Comment: [facility] Critical Result(s) called to Nadeem Ayala Rn at 05/27/2017 08:53 by Bry. Read back OK. HEMATOLOGY RBC 4.31 4.70 - 05/27 Sugar 6.10 [facility] BLOOD BANK ABO/Rh A POS 05/27 [place] RESULTS /2017 [facility] BLOOD BANK Antibody Negative 05/27 [place] RESULTS Scrn (05/27/17 1:34 AM) [facility] BLOOD BANK Platelet Product available 05/27 [place] RESULTS product (05/27/17 1:25 AM) /2017 [facility] CHEM PANEL eGFR 49 05/27 Result [place] /2017 Comment: The [facility] eGFR is calculated using the CKD-EPI [...] 35.8 [place] CHEM PANEL eGFR 54 09/19 [facility] Comment: The Medical eGFR is Center calculated [...] PANEL AGAP 15.8 10.0 - 09/19 Result [facility] 20. Comment: Medical Collection Center date/time [...] BUN 18 7 - 22 09/19 Result [facility] Comment: Medical Collection Center date/time has been modified to: 15:35:00. Previous collection date/time: 16:41:00. CHEM PANEL Sodium Lvl 144 135 - 145 09/19 Result [facility] Comment: Medical Collection Center date/time has been modified to: 15:35:00. Previous collection date/time: 16:41:00. CHEM PANEL Creatinine 1.31 0.50 - 09/19 Result [facility] 1.40 Comment: Medical Collection Center date/time has been modified to: 15:35:00. Previous collection date/time: 16:41:00. CHEM PANEL Potassium 3.8 3.5 - 5.1 09/19 Result [facility] Comment: Medical Collection Center date/time has been modified to: 15:35:00. Previous collection date/time: 16:41:00. Pathology Reports No Data Provided for This Section Diagnostic Reports Report Value Date Source Bladder US Bladder Ultrasound 05/27/2017 [facility] History: Hematuria - looking for blood clots [...] to earlier study. Bladder US EXAM: 05/27/2017 [facility] Urinary bladder ultrasound. CLINICAL HX: Hematuria. Saba [...] -- Two subcentimeter ovo id foci of [id number] restricted diffusion, consistent with acute lacunar infarcts, [...] n outpatient basis. On 12/28/2016 4:30 PM CHILD DAYCARE WORKER, a call was placed to to notify the referring clinician's office that this exam has important findings p otentially requiring urgent follow-up and to direct their attention to the report for details. There was no response after several attempts, and no voicemail option was available. Several unsuccessful attempts were subsequently m pierce to reach the patient at the provided number of [phone]. A generic message was left on the [...] edema, compression or myelomal acia. 4. Bilateral anterior/supervisor stave cutting ior triangle and supraclavicular adenopathy, reactive or neoplastic. Correlate with history. 5. 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 SL: [id number] Spine Thoracic wo Patient Name: IDANIA TERRY 08/11/2016 PRECIOUS [place] contrast MRI : 1945; Age: 71 years y/o Male MR: [id number] Study: Spine Thoracic wo contrast MRI 08/11/2016 [...] canal stenosis or neural foraminal narrowing. SL: [id number] Spine cervical wo Study: Spine cervical wo contrast MRI 08/12/19 17 [facility] contrast MRI Clinical Indication: G95.9 Disease of [...] of the cervical s keith cord. SL: [id number] Spine lumbar flex/ext EXAM: XR LUMBAR SPINE [...] Date Comments Source Heart Rate 63 05/29/2017 [place] Temperature Oral (F) 97.8 F 05/29/2017 [facility] [place] Respitory Rate 18 05/29/2017 [facility] [place] Systolic (mm Hg) 145 05/29/2017 [facility] [place] Diastolic (mm Hg) 83 05/29/2017 MH [place] and Respitory Rate 18 05/29/2017 [facility] [place] Heart Rate 64 05/29/2017 [place] Temperature Oral (F) 97.4 F 05/29/2017 [place] Systolic (mm Hg) 156 05/29/2017 [place] Diastolic (mm Hg) 86 05/29/2017 MH [place] L and Respitory Rate 18 05/29/2017 [facility] [place] Temperature Oral (F) 98 F 05/29/2017 [place] Heart Rate 59 05/29/2017 [facility] [place] Systolic (mm Hg) 158 05/29/2017 [place] Diastolic (mm Hg) 69 05/29/2017 MH [place] L and BMI Calculated 27.32 05/27/2017 [place] Height 177.8 cm 05/27/2017 [place] Weight 86.364 05/27/2017 [facility] [place] Weight 89.545 05/27/2017 [facility] [place] Weight 90.909 [facility] BMI Calculated 28.76 12/28[facility]2016 [facility] Height 177.8 cm 12/28/2016 [facility] Heart Rate 74 12/28/2016 [facility] Neuro Systolic (mm Hg) 163 12/28/2016 [facility] Julio ro Diastolic (mm Hg) 82 12/28/2016 [facility] Temperature Oral (F) 97.8 F 12/28/2016 [facility] Neuro Heart Rate 89 09/24/2016 [facility] Temperature Oral (F) 97.5 F 09/24/2016 [facility] Respitory Rate 18 09/24/2016 [facility] juju Center Systolic (mm Hg) 176 09/24/2016 [facility] dical Center Diastolic (mm Hg) 83 09/24/2016 [facility] Rate 84 09/24/2016 [facility] Systolic (mm Hg) 143 09/24/2016 [facility] dical Center Diastolic (mm Hg) 73 09/24/2016 [facility] [place] [facility] Respitory Rate 17 09/24/2016 [facility] Temperature Oral (F) 98.5 F 09/24/2016 [facility] Temperature Oral (F) 98.1 F 09/24/2016 [facility] Systolic (mm Hg) 146 09/24/2016 [facility] Diastolic (mm Hg) 79 09/24/2016 [facility] Respitory Rate 18 09/24/2016 [facility] Heart Rate 70 09/24/2016 [facility] [place] BMI Calculated 29.48 09/22/2016 [facility] Weight 93.182 09/22/2016 [facility] Height 177.8 cm 09/22/2016 [facility] [place] Weight 90.455 09/19/2016 [facility] [place] BMI Calculated 28.61 09/19/2016 [facility] Height 177.8 cm 09/19/2016 [facility] Encounters Location Location Encounter Encounter Reason Attending ADM NM Stat us Source Details Type Number For Provider Date Date Visit Outpatient [id number] TJ ALICIA 07/20 [facility] Outpt Diag [id number] Tj Alicia 07/20 07/21 [facility] Herm torin [facility] Outpt Diag [id number] Tj Alicia 08/11 08/12 [facility] Out[facility] [place] Outpatient [id number] TJ ALICIA 08/17 [facility] [id number] TJ ALICIA 09/19 [facility] [id number] TJ ALICIA 09/19 [facility] [id number] TJ ALICIA 09/22 [facility] Observation [id number] Tj Alicia 09/22 09/24 [facility] Outpatient [id number] [place] 10/07 Active [facility] [place] Outpatient [id number] TJ ALICIA 11/14 [facility] Phone [id number] 12/23 12/25 [facility] Message Neuro MNA Spine Phone [id number] 12/26 12/28 [facility] Message Neuro Outpatient [id number] TJ MICHEL 12/28 [facility] [place] [facility] Outpatient [id number] Javi 12/28 12/29 [facility] 8 Aayush Neuro [facility] Outpt Diag [id number] Rufina 12/28 12/29 [facility] 0 [facility] MNA Spine Phone [id number] 01/02 01/04 [facility] Message Neuro [facility] Sp[facility] Phone [id number] 01/03 01[facility]05 [facility] Message Neuro MNA Spine Phone [id number] 01/16 01/18 In cathleen [facility] Message Neuro Outpatient [id number] TJ MICHEL 02/13 [facility] [place] [facility] Spine Ambulatory [id number] Javi 02/13 02/13 [facility] Pre-Reg 7 Aayush Neur o MNA Spine Phone [id number] 03/15 03/17 In cathleen [facility] TM Message Neuro [facility] Observation [id number] Chata 05/27 05/29 Christel Clements [address] [place] MNA Spine Phone [id number] 09/06 09/08 [facility] Message Neuro Procedures Procedure Code Date Perfomer Comments Source Bladder irrigation, 42085 05/28/2017 [place] gar [place] simple, lavage and/or instillation Bladder operation [id number] [facility] Neuro,[facility], PRECIOUS Clements, OPID Scott, OPID [facility] [place] Drainage [id number] [facility] Neuro,[facility], PRECIOUS Clements, OPID [place], OPID [facility] [place] Lymph node [id number] [facility] operation Neuro,[facility], PRECIOUS Clements, OPID Scott, OPID [facility] [place] Assessment and Plan Assessment and Plan Date [...] and Plan Gross hematuria after urodynamics at [facility]. Patient was on aspirin and Plavix [...] Cessation Counseling No Social History TypeResponse 09/19/2016 [facility] Alcohol Current, Frequency: 1-2 times per [...]
--- OUTSIDE RECORDS SUMMARY | 2020-01-31 06:45 | XMS REPORT | Continuity of Care Document ---
:1945 Author Organization [facility] t Address [address] [place] [address] Care Team Providers Name Role Phone Ella SCHMIDT Primary Care Physician RIKI BOLANOS Attending Clinician Unavailable Riki Bolanos MD Attending Clinician BELLA SIERRA Attending Clinician Unavailable ELLA Attending Clinician Unavailable GIL LO Attending Clinician Unavailable Doctor Unassigned, Name Attending Clinician Unavailable SHBAANA HANNAH Attending Clinician Unavailable Luciana Carlson Attending Clinician Gisella Alicia Attending Clinician MICHAEL FROST Attending Clinician Unavailable Ingrid Askew Attending Clinician RIKI BOLANOS Admitting Clinician Unavailable BELLA SIERRA Admitting Clinician Unavailable SHABANA HANNAH Admitting Clinician Unavailable Luciana Carlson Admitting Clinician MICHAEL FROST Admitting Clinician Unavailable Gisella Alicia Admitting Clinician Problems Condition Condition Condition Status Onset Resolution Last Treating Co mments Source Name Details Category Date Date Treatment Clinician Date LUMBAR Diagnosis Active 2016-10-17 Mem oria STENOSIS 7-14 14:47:00 l LUMBAR 00:00: [place] STENOSIS 00 Active 08/19/2016 [facility] M54.16 - Diagnosis Active 2016-07-20 M emoria "RADICULOP 6-14 12:52:00 l ETHAN, M54.16 - 00:01: Die[place] lay LUMBAR "RADICULOP 00 REGION" ATHY, LUMBAR REGION" Active 07/20/2016 PRECIOUS [place] Mitral Mitral Disease Active [place] valve valve 06-06 Methodi insufficie insufficie 00:00: st ncy ncy 00 Panlobular Panlobular Disease Active H jordan emphysema emphysema 06-06 Meth rosario 00:00: st 00 Peripheral Peripheral Disease Active H jordan vascular vascular 06-06 Method i disease disease 00:00: st 00 Pitting Pitting Disease Active [place] edema edema 06-06 Methodi 00:00: st 00 Myelopathy Myelopathy Disease Active [place] of of 06-06 Methodi cervical cervical 00:00: st spinal spinal 00 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 radiculopa thy thy SVT SVT Disease Active [place] (supravent (supravent 06-06 Me thodi ricular ricular 00:00: st tachycardi tachycardi 00 a) a) 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 00:00: st 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) Cerebrovas Problem Resolve 2018-03-27 Memoria cular d 14:50:09 l accident [place] (disorder) Cerebrovas cular accident (disorder) Resolved Problem 03/27/2018 Lucius Neuro,[facility], PRECIOUS [place], PRECIOUS Chavez,M H PRECIOUS [facility], [place] Hematoma Problem Resolve 2018-03-27 Me moria (disorder) d 14:50:09 l Hematoma Dieudonne n (disorder) Resolved Problem 03/27/2018 Lucius Neuro,[facility], PRECIOUS [place], PRECIOUS ChavezM H PRECIOUS [facility], [place] Malignant Problem Resolve 2018-03-27 M emoria tumor of d 14:50:09 l urinary [place] bladder Malignant (disorder) tumor of urinary bladder (disorder) Resolved Problem 03/27/2018 Lucius Neuro,[facility], PRECIOUS [place], PRECIOUS Chavez,M PRECIOUS [facility] [place] Hypertensi Problem Active 2018-03-27 M emoria ve 14:50:09 l disorder, [place] systemic Hypertensi arterial ve (disorder) disorder, systemic arterial (disorder) Active Problem 03/27/2018 Lucius Neuro,[facility], PRECIOUS [place], PRECIOUS Chavez,M PRECIOUS [facility], [place] Obstructiv Problem 2017-2017-06-01 2017-06-01 Memoria e and 4-20 02:24:06 02:24:06 l reflux 05:00: [place] uropathy, Obstructiv 00 unspecifie e and d reflux uropathy, unspecifie d 05/26/2017 06/01/2017 [place] Hematuria, Problem 2017-06-01 2017-06-01 Memoria unspecifie 4-20 02:24:06 02:24:06 l d 05:00: [place] Hematuria, 00 unspecifie d 05/26/2017 06/01/2017 [place] Allergies, Adverse Reactions, Alerts Allergy Allergy Status [...] Date Stop Date Source Natural father Cancer [place] [facility] Natural father Hypertension [place] [facility] Natural mother Arthritis [place] [facility] Social History Social Habit Start Date Stop Date Quantity Comments Source History of tobacco Cigarette Smoker [place] use [facility] Sex Assigned At [place] [facility] Cigarettes smoked 2017-04-24 2017-04-24 [place] current (pack per 00:00:00 00:00:[address] day) - Reported Tobacco use and 2017-04-24 2017-04-24 Never used [place] exposure 00:00:00 00:00:00 [facility] Alcohol intake 2017-04-24 2017-04-24 Current drinker [place] 00:00:00 00:00:00 of alcohol [facility] (finding) Social History 2016-09-19 2016-09-19 [facility] 20:24:11 20:24:11 Alcohol Comment 2016-05-25 2016-05-25 rare [place] 00:00:00 00:00:00 [facility] Smoking Status Start Date Stop Date Source Social History 2016-07-21 10:16:13 [facility] Medications Ordered Filled Start Stop Current Ordering Indication Dosage Frequency Signature Comments Components Source Medication Medication Date Date Medication? Clinician (SIG) Name Name Docusate No Notes: Memoria Sodium 50 4-23 (Same as l MG / 22:00: Senokot-S) side, Equiv. to RETIREMENT 8.6 MG Rachelle-Colac Oral Tablet e. Docusate Yes 1 tab, PO, Mem oria Sodium 50 4-23 BID, X 14 l MG / 17:38: day, # 28 [place] sennosides, 00 tab, 0 RETIREMENT 8.6 MG Refill(s), Oral Tablet Pharmacy: [facility] ciprofloxac Yes 500 mg = 1 Memoria in 500 mg 4-23 tab, PO, l oral tablet 17:38: Q12H, X 7 H ermann 00 day, # 14 tab, 0 Refill(s), Pharmacy: [facility] Cipro No Notes: May Memori a 4-23 interfere l 14:00: w/enteral feedings - Take 1 hr before or 2 hrs after antacids, dairy pdt & minerals. On empty stomach. Normal No Notes: For Memor ia Saline for 4-23 irrigation l Irrigation 02:30: only. Sodium No Notes: For Memor ia Chloride 4-23 irrigation l 02:22: only. Diltiazem No Notes: Memori a Hydrochlori 4-22 (Same as: l de ER 21:00: Cardizem CD) Do Not Crush Before meals. 24 HR Yes 240 mg = 1 Memori a Diltiazem 4-22 cap, PO, l Hydrochlori 15:24: Daily, 0 He rmann de 240 MG 00 Refill(s) Extended Release Capsule [Cartia] clopidogrel No 75 mg = 1 M emoria 75 MG Oral 4-22 tab, PO, l Tablet 15:24: Daily, 0 [place] [Plavix] 00 Refill(s) Aspirin No 81 mg, 0 Memori a 4-22 Refill(s) l 15:24: [place] 00 nebivolol Yes 10 mg = 1 Mem oria 10 MG Oral 4-22 tab, PO, l Tablet 15:24: Daily, 0 [place] [Bystolic] 00 Refill(s) Bystolic No Notes: Memoria 4-22 (same as: l 14:00: Bystolic) [place] 00 Crestor No Notes: Memoria 4-22 (Same As: l 02:00: Crestor) [place] 00 Docusate No Notes: Memoria 4-21 (Same as: l 14:00: Colace) [place] (Do Not Crush) Lisinopril No Notes: Memor ia 4-21 (Same as: l 14:00: Prinivil, [place] 00 Zestril) Clonidine No Notes: Memori a [...] 4-21 not exceed l 07:05: 4 gm/day. [place] (Same as: Tylenol) Acetaminoph No Notes: Juan Alberto verónica en 325 MG / 4-21 (Same as: l Hydrocodone 07:05: [place] nn Bitartrate 00 325/5) Do 5 MG Oral not exceed Tablet 4gm/day of acetaminop hen. Morphine No Notes: Memoria 4-21 (Same l 07:05: as:MORPhin [place] 00 e Sulfate) Ondansetron No Notes: Juan Alberto verónica - (Same as: l 07:05: Zofran) [place] 00 MEDICATION WASTE Product Size: 4 mg Product Wasted: ___ mg Irrigation No Notes: For M emoria w/ Normal 4-21 irrigation l Saline 07:00: only. [place] 00 Sodium No Notes: For Memor ia Chloride -21 irrigation l 0.0769 07:00: only. [place] MEQ/ML 00 Irrigation Solution Sodium No 250 mL, Memoria Chloride 05-27 Rate: To l 0.9% 06:25: prime line [place] (titrate) 00 and flush 250 mL remaining blood products., Dosing Weight 89.545, kg, Route: IV, Total Volume: 250, Start Date: 05/27/17 1:25:00 CDT, Duration: 30 day, Stop date: 06/26/17 1:24:00 CDT, Replace Every: 24 hr Irrigation No Notes: For M emoria w/ Normal 4-21 irrigation l Saline 05:58: only. [place] Irrigation No Notes: For M emoria w/ Normal 4-21 irrigation l Saline 04:45: only. [place] 00 Saline No Notes: Memoria Flush 0.9% 05-27 (Same as: l 04:12: BD [place] 00 Posiflush) Phenazopyri No 100 mg = 1 Memoria dine -21 tab, PO, l hydrochlori 03:10: TID, PRN He rmann de 100 MG 00 Dysuria, X Oral Tablet 2 day, # 6 [Pyridium] tab, 0 Refill(s) Acetaminoph No 1 - 2 tab, Memoria en 300 MG / 21 PO, Q4H, l Codeine 03:08: PRN Pain, [place] nn Phosphate 00 X 2 day, # 60 MG Oral 12 tab, 0 Tablet Refill(s) [Tylenol with Codeine #4] Acetaminoph No 2 tab, Juan Alberto verónica en 325 MG / 4-21 Route: PO, l Hydrocodone 01:45: Drug Form: [place] Bitartrate 00 TAB, 5 MG Oral Dosing Tablet Weight [Perdido 89.545, 5/325] kg, ONCE, STAT, Start date: 05/26/17 20:45:00 CDT, Stop date: 05/26/17 20:45:00 CDT Morphine 2017- No 4 mg, Memoria 4 Route: l 01:16: IVP, ONCE, Dosing Weight 89.545, kg, Priority: STAT, Start date: 05/26/17 20:16:00 CDT, Stop date: 05/26/17 20:16:00 CDT Morphine 2017- No 4 mg, Memoria 05-27 Route: l 00:36: IVP, ONCE, Dosing Weight 89.545, kg, Priority: STAT, Start date: 05/26/17 19:36:00 CDT, Stop date: 05/26/17 19:36:00 CDT aspirin Yes Cerebral 81mg QD [place] (ECOTRIN) 3-19 infarction, Met hodi enteric 17:00: unspecified st mechanism tablet 81 (HCC) mg clopidogrel Yes 75mg QD Take 75 mg Leon (PLAVIX) 75 3-19 by mouth Meth rosario mg tablet 15:18: daily. st 47 CARTIA XT Yes TK 1 C PO [place] ston 240 mg 24 2-08 QD Methodi hr capsule 00:00: BYSTOLIC 10 Yes TK 1 T PO [place] mg tablet 1-30 QD Methodi 00:00: st 00 diltiazem No Notes: DO Mem oria - NOT CRUSH. l 13:38: Lisinopril No Notes: Memor ia 18 (Same as: l 14:00: Prinivil Zestril) Famotidine Yes 20 mg = 1 [...] MG Oral # 90 tab, Tablet 0 [Perdido Refill(s) 10/325] Methocarbam Yes 500 mg = 1 Memoria ol 500 MG 8-18 tab, PO, l Oral Tablet 10:44: Q8H, PRN He rmann [Robaxin] 00 Spasms, X 10 day, # 30 tab, 0 Refill(s) { Yes See Memoria (Methylpred 09-23 Instructio l nisolone 4 10:44: ns, PO, Herm torin MG Oral 00 Take by Tablet mouth as [Medrol]) } directed Pack on label., [Medrol # 1 Pack, Dosepak] 0 Refill(s) Flomax No Notes: Memoria -18 (Same As: l 06:28: Flomax) "Do Not Crush" Cefazolin No Notes: Memori a 09-23 (Same As: l 03:00: Ancef, Kefzol) Cefazolin [...] Crush) sennosides, No Notes: Juan Alberto verónica RETIREMENT 17 (Same as: l 22:00: Senokot) Clonidine No Notes: Memori a Hydrochlori - (Same As: l de 0.1 MG 22:00: [...] Hydromorpho No Notes: Juan Alberto verónica ne 09-22 Same as: l 21:37: Dilaudid Oxycodone No Notes: Memori a 8- (Same as: l 21:37: Roxicodone ) Saline [...] verónica 8-17 (Same as: l 21:11: Zofran) MEDICATION WASTE Product Size: 4 mg Product Wasted: ___ mg Acetaminoph No Notes: Do M emoria en 325 MG / - not exceed l Hydrocodone 21:11: 4gm/day of [place] Bitartrate 00 acetaminop 10 MG Oral hen. Tablet (Same as: [Perdido Perdido 10/325] 325/10) Dilaudid No Notes: Memoria 09-22 Same as: l 21:11: Dilaudid [place] 00 Bisacodyl No Notes: Memori a 09-22 (Same As: l 21:11: Dulcolax, [place] 00 Bisco-Lax) phenol No Notes: Memoria 09-22 Chlorasept l 21:11: ic Arrey [place] (Same as: Chlorasept ic, Sore Throat Arrey) WASTE: F/P - Black; E - Municipal Trash Bin Melatonin 3 No Notes: Juan Alberto verónica MG Extended 09-22 (Same as: l Release 21:11: Melatonin) Herm torin Tablet 00 Benadryl No Notes: Memoria 09-22 (Same as: l 21:11: Benadryl) [place] 00 ceFAZolin No Notes: Memori a 09-22 Same as: l 08:00: Ancef [place] 00 rosuvastati Yes TK 1 T PO [place] (CRESTOR) 3-22 QD Methodi 10 MG 00:00: st tablet 00 Vital Signs Vital Name Observation Time Observation Value Comments Source Heart Rate 2017-05-29 16:49:00 [facility] [place] Temperature Oral (F) 2017-05-29 16:49:00 97.8 F [facility] [place] Respitory Rate 2017-05-29 16:49:00 Memori al [place] Systolic (mm Hg) 2017-05-29 16:49:00 Juan Alberto rial [place] Diastolic (mm Hg) 2017-05-29 16:49:00 Mem orial [place] Respitory Rate 2017-05-29 13:20:00 Memori al [place] Heart Rate 2017-05-29 13:20:00 [facility] [place] Temperature Oral (F) 2017-05-29 13:20:00 97.4 F [facility] [place] Systolic (mm Hg) 2017-05-29 13:20:00 Juan Alberto rial [place] Diastolic (mm Hg) 2017-05-29 13:20:00 Mem orial [place] Respitory Rate 2017-05-29 08:34:00 Memori al [place] Temperature Oral (F) 2017-05-29 08:34:00 98 F [facility] [place] Heart Rate 2017-05-29 08:34:00 [facility] [place] Systolic (mm Hg) 2017-05-29 08:34:00 Juan Alberto rial [place] Diastolic (mm Hg) 2017-05-29 08:34:00 Mem orial [place] BMI Calculated 2017-05-27 08:46:00 Memori al [place] Height 2017-05-27 08:46:00 177.8 cm [facility] [place] Weight 2017-05-27 08:46:00 [facility] [place] Weight 2017-05-27 00:09:00 [facility] [place] Weight 2016-12-28 18:56:00 [facility] [place] BMI Calculated 2016-12-28 18:56:00 Memori al [place] Height 2016-12-28 18:56:00 177.8 cm [facility] [place] Heart Rate 2016-12-28 18:56:00 [facility] [place] Systolic (mm Hg) 2016-12-28 18:56:00 Juan Alberto rial [place] Diastolic (mm Hg) 2016-12-28 18:56:00 Mem orial [place] Temperature Oral (F) 2016-12-28 18:56:00 97.8 F [facility] [place] Heart Rate 2016-09-24 12:50:00 [facility] [place] Temperature Oral (F) 2016-09-24 12:50:00 97.5 F [facility] [place] Respitory Rate 2016-09-24 12:50:00 Memori al [place] Systolic (mm Hg) 2016-09-24 12:50:00 Juan Alberto rial [place] Diastolic (mm Hg) 2016-09-24 12:50:00 Mem orial [place] Heart Rate 2016-09-24 08:43:00 [facility] [place] Systolic (mm Hg) 2016-09-24 08:43:00 Juan Alberto rial [place] Diastolic (mm Hg) 2016-09-24 08:43:00 Mem orial [place] Respitory Rate 2016-09-24 08:43:00 Memori al [place] Temperature Oral (F) 2016-09-24 08:43:00 98.5 F [facility] [place] Temperature Oral (F) 2016-09-24 04:44:00 98.1 F [facility] [place] Systolic (mm Hg) 2016-09-24 04:44:00 Juan Alberto celestin [place] Diastolic (mm Hg) 2016-09-24 04:44:00 Mem orial [place] Respitory Rate 2016-09-24 04:44:00 Memori al [place] Heart Rate 2016-09-24 04:44:00 [facility] [place] BMI Calculated 2016-09-22 15:39:00 Memori al [place] Weight 2016-09-22 15:39:00 [facility] [place] Height 2016-09-22 15:39:00 177.8 cm [facility] [place] Weight 2016-09-19 20:20:00 [facility] [place] BMI Calculated 2016-09-19 20:20:00 Memori al [place] Height 2016-09-19 20:20:[address] [facility] Procedure Date / Time Performed Performing Clinician Sour e Bladder irrigation, 2017-05-28 16:15:00 [facility] [place] simple, lavage and/or instillation Bladder [facility] Lymph [facility] Plan of Care Planned Activity Planned Date Details Comments Source Future Scheduled 2019-09-07 INFLUENZA VACCINE [place] [facility] Test 00:00:00 [code = INFLUENZA VACCINE] Future Scheduled 2010 65+ PNEUMOCOCCAL [place] [facility] Test 00:00:00 VACCINE (1 of 1 - PPSV23) [code = 65+ PNEUMOCOCCAL VACCINE (1 of 1 - PPSV23)] Future Scheduled 1995 COLONOSCOPY SCREENING [place] [facility] Test 00:00:00 [code = COLONOSCOPY SCREENING] Future Scheduled 1995 SHINGLES VACCINES (#1) [facility] Test 00:00:00 [code = SHINGLES VACCINES (#1)] Future Scheduled 1961 COVID-19 VACCINE (#1) [place] [facility] Test 00:00:00 [code = COVID-19 VACCINE (#1)] Encounters Start End Encounter Admission Attending Care Care Encounter Source Date/Time Date/Time Type Type Clinicians Facility Department ID 2019-12-26 2019-12-26 Office [place] Bolanos [id number] 11:13:47 11:28:47 Visit [place] AMBULATOR [id number] Riki Y [id number] 2018-10-16 2018-10-16 Orders Doctor IRVIN [id number] 00:00:00 00:00:00 Only Unassigned, AMADOR [id number] [facility] [id number] 2018-09-10 2018-09-10 Orders Doctor IRVIN [id number] 00:00:00 00:00:00 Only Unassigned, AMADOR [id number] [facility] [id number] 2017-09-06 2017-09-07 Outpatient MHMISCHER MHMISCHER [id number] 13:27:00 23:59:59 13 2017-05-26 2017-05-29 Outpatient Robyn SL MHSL [id number] 19:05:00 16:01:00 Chata Chowdhury 2017-03-15 2017-03-16 Outpatient MHMISCHER MHMISCHER [id number] 16:21:00 23:59:59 12 2017-02-13 2017-02-13 Outpatient Tj Alicia MHMISCHER MHMISCHER [id number] 08:45:00 08:45:00 royal 2017-02-13 2017-02-13 Outpatient Tj Alicia MHMISCHER MHMISCHER [id number] 08:45:00 08:45:00 royal 2017-02-13 2017-02-13 Outpatient Tj Alicia MHMISCHER MHMISCHER [id number] 08:45:00 08:45:00 [facility] 2017-01-16 2017-01-17 Outpatient MHMISCHER MHMISCHER [id number] 11:51:00 23:59:59 11 2017-01-03 2017-01-04 Outpatient MHMISCHER MHMISCHER [id number] 11:44:00 23:59:59 10 2017-01-02 2017-01-03 Outpatient MHMISCHER MHMISCHER [id number] 15:19:00 23:59:59 09 2016-12-28 2016-12-28 Outpatient Tj Alicia [facility] [id number] 08:00:00 23:59:59 Hwan 08 2016-12-28 2016-12-28 Outpatient Azar [id number] 14:30:00 23:59:00 Rufina [id number] Ingrid [id number] 2016-12-26 2016-12-27 [id number] 09:23:00 23:59:59 08 2016-12-23 2016-12-24 Outpatient MISCHER MISCHER [id number] 09:42:00 23:59:59 07 2016-09-22 2016-09-24 Outpatient Tj Alicia [facility] [id number] 16:11:00 11:45:00 Hwan 2016-08-11 2016-08-11 Outpatient Tj Alicia [facility] [id number] 16:55:00 23:59:00 Hwan 2016-07-20 2016-07-20 Outpatient Tj Alicia [facility] [id number] 10:41:00 23:59:00 Hwan 00 Results Test Description Test Time Test Comments Results Result Comments Source POCT-ACT 2020 11:45:00 Test Item Value Reference Range Interpretation Comme nts ACTIVATED CLOTTING TIME (BEAKER) 252 sec : 74-137 seconds, Baseline: TESTED AT (test code = 441) [facility] [address] [place] [address], [address]: Investigator Operator/Techni rigoberto ID = [id number] for CLAU GREGG SARS-COV2/RT-PCR ([facility])2020-01-03 17:54:00 Test Item Value Reference Range Interpretation Comments SARS-COV2/RT-PCR (test Negative Not Detected, Negative, code = 5953508) See external report for linked test SARS-COV-[address] [facility] GENEVIEVE (test code = 7460040) Negative result for this test determines that [...] 564(g) of the Act.Fact Sheet for Healthcare Providers:https://www.[employer]/sites/default/files/product/documents/Fact_Shee a_WX_Omlyeokvv_Ycej_QIZH-CzS-9.pdfFact Sheet for Healthcare Patients:https://www.[employer]/sites/default/files/product/ documents/Ekup_Laeyh_Budeaqyv_Wprp_DYLP-PcE-5.pdfPerforming Laboratory:[facility], [place] [address]YYEN-RWP8/RT-PCR ([facility])2019-12-19 10:14:00 Test Item Value Reference Range Interpretation Comments SARS-COV2/RT-PCR (test Negative Not Detected, Negative, code = 3503652) See external report for linked test SARS-COV-[address] [facility] GENEVIEVE (test code = 8948560) Negative result for this test determines that [...] 564(g) of the Act.Fact Sheet for Healthcare Providers:https://www.[employer].com/sites/default/files/product/documents/Fact_Shee h_CB_Qvtrnjjkv_Jvyx_ECPP-OjU-5.pdfFact Sheet for Healthcare Patients:https://www.[employer].com/sites/default/files/product/ documents/Kgzw_Puvpl_Qaqnqyba_Ayya_BFOO-GhU-1.pdfPerforming Laboratory:[facility], [place] [address]FTCL-GUINMUE METER 2019-12-19 07:30:00 Test Item Value Reference Range Interpretation Comments POC-GLUCOSE METER 121 mg/dL 70-110 H : TESTED A T [facility] [address] (BEAKER) (test code = [place], 1538) [address]: Investigator Operator/Techni rigoberto ID = [id number] for YESSI BROWN BASIC METABOLIC [id number] 07:06:00 Test Item Value Reference Range Interpretation [...] S NOT APPLICABLE FOR DIALYSIS PATIEN TS. Investigator Operator ID - MARIELA [id number] 07:06:00 Test Item Value Reference Range Interpretation Comments MAGNESIUM (BEAKER) (test code = 2.1 mg/dL 1.6-2.6 627) Investigator Operator ID - MARIELA [id number] 07:06:00 Test Item Value Reference Range Interpretation Comments PHOSPHORUS (BEAKER) (test code = 2.9 mg/dL 2.3-4.7 604) Investigator Operator ID - MARIELA MCBC (HEMOGRAM ONLY)2019-12-19 05:34:00 Test Item Value Reference [...] 0-0 (BEAKER) (test code = 413) POCT-GLUCOSE [id number] 21:12:00 Test Item Value Reference Range Interpretation Comments POC-GLUCOSE METER 144 mg/dL 70-110 H : TESTED A T [facility] 6720 (BEAKER) (test code = [facility], [facility]) [address]: Investigator Operator/Techni rigoberto ID = [id number] for CESAR FIORE POCT-GLUCOSE [id number] 17:08:00 Test Item Value Reference Range Interpretation Comments POC-GLUCOSE METER 104 mg/dL 70-110 : TESTED A T [facility] 6720 (BEAKER) (test code = [facility], 153) [address]: Investigator Operator/Techni rigoberto ID = [id number] for PETEY RIVAS POCT-GLUCOSE [id number] 11:28:00 Test Item Value Reference Range Interpretation Comments POC-GLUCOSE METER 172 mg/dL 70-110 H : TESTED A T [facility] 6720 (BEAKER) (test code = [facility], 153) [address]: Investigator Operator/Techni rigoberto ID = [id number] for PETEY RIVAS POCT-GLUCOSE [id number] 07:50:00 Test Item Value Reference Range Interpretation Comments POC-GLUCOSE METER 123 mg/dL 70-110 H : TESTED A T [facility] 6720 (BEAKER) (test code = [facility], 1538) [address]: Investigator Operator/Techni rigoberto ID = [id number] for PETEY RIVAS BASIC METABOLIC [id number] 06:58:00 Test Item Value Reference Range Interpretation [...] S NOT APPLICABLE FOR DIALYSIS PATIEN TS. Investigator Operator ID - [id number] 06:58:00 Test Item Value Reference Range Interpretation Comments MAGNESIUM (BEAKER) (test code = 2.1 mg/dL 1.6-2.6 627) Investigator Operator ID - [id number] 06:58:00 Test Item Value Reference Range Interpretation Comments PHOSPHORUS (BEAKER) (test code = 2.5 mg/dL 2.3-4.7 604) Investigator Operator ID - [id number] (HEMOGRAM ONLY)2019-12-18 06:28:00 Test [...] 0-0 (BEAKER) (test code = 413) POCT-GLUCOSE [id number] 21:37:00 Test Item Value Reference Range Interpretation Comments POC-GLUCOSE METER 145 mg/dL 70-110 H : TESTED A T [facility] 6720 (BEAKER) (test code = [facility], 153) [address]: Investigator Operator/Techni rigoberto ID = [id number] for CESAR FIORE POCT-GLUCOSE [id number] 16:17:00 Test Item Value Reference Range Interpretation Comments POC-GLUCOSE METER 154 mg/dL 70-110 H : TESTED A T [facility] 6720 (BEAKER) (test code = [facility], 153) [address]: Investigator Operator/Techni rigoberto ID = [id number] for [place] LLIAMS, TYNEKA POCT-GLUCOSE [id number] 12:11:00 Test Item Value Reference Range Interpretation Comments POC-GLUCOSE METER 150 mg/dL 70-110 H : TESTED A T [facility] 6720 (BEAKER) (test code = [facility], 153) [address]: Investigator Operator/Techni rigoberto ID = [id number] for [place] LLIAMS, TYNEKA POCT-GLUCOSE [id number] 08:07:00 Test Item Value Reference Range Interpretation Comments POC-GLUCOSE METER 132 mg/dL 70-110 H : TESTED A T [facility] 6720 (BEAKER) (test code = [facility], 153) [address]: Investigator Operator/Techni rigoberto ID = [id number] for ZOYA STOCKTON BASIC METABOLIC [id number] 06:38:00 Test Item Value Reference Range Interpretation [...] S NOT APPLICABLE FOR DIALYSIS PATIEN TS. Investigator Operator ID - [id number] 06:38:00 Test Item Value Reference Range Interpretation Comments MAGNESIUM (BEAKER) (test code = 2.0 mg/dL 1.6-2.6 627) Investigator Operator ID - [id number] 06:38:00 Test Item Value Reference Range Interpretation Comments PHOSPHORUS (BEAKER) (test code = 1.9 mg/dL 2.3-4.7 L 604) Investigator Operator ID - EDASICBC (HEMOGRAM ONLY)2019-12-17 06:07:00 Test [...] 0-0 (BEAKER) (test code = 413) POCT-GLUCOSE [id number] 21:27:00 Test Item Value Reference Range Interpretation Comments POC-GLUCOSE METER 172 mg/dL 70-110 H : TESTED A T [facility] ([facility]) (test code = [facility], 153) 80180: Investigator Operator/Techni rigoberto ID = [id number] for ANGELINE MCDANIELS SE POCT-GLUCOSE [id number] 16:32:00 Test Item Value Reference Range Interpretation Comments POC-GLUCOSE METER 171 mg/dL 70-110 H : TESTED A T [facility] 67[facility] ([facility]) (test code = [facility], 153) 64461: Investigator Operator/Techni rigoberto ID = [id number] for [place] LLIAMS, TYNEKA POCT-GLUCOSE [id number] 12:16:00 Test Item Value Reference Range Interpretation Comments POC-GLUCOSE METER 157 mg/dL 70-110 H : TESTED A T [facility] 6720 ([facility]) (test code = [facility], 1538) 41701: Investigator Operator/Techni rigoberto ID = [id number] for [place] LLIAMS, TYNEKA [id number] 11:13:00 Test Item Value Reference Range Interpretation Comments ACTIVATED CLOTTING TIME 120 sec : 74 -137 seconds, (BEAKER) (test code = Baseli ne: TESTED AT [facility]) [facility], 770 30: Investigator Operator/Techni rigoberto ID = [id number] for PABLO ROGERS [id number] 11:13:00 Test Item Value Reference Range Interpretation Comments ACTIVATED CLOTTING TIME 268 sec : 74 -137 seconds, (BEAKER) (test code = Baseli ne: TESTED AT 441) [facility] 6720 [facility], 770 30: Investigator Operator/Techni rigoberto ID = [id number] for CA STRO, JUVE [id number] 11:13:00 Test Item Value Reference Range Interpretation Comments ACTIVATED CLOTTING TIME 230 sec : 74 -137 seconds, (BEAKER) (test code = Baseli ne: TESTED AT 441) [facility] 6720 [facility], 770 30: Investigator Operator/Techni rigoberto ID = [id number] for CA STRO, JUVE POCT-GLUCOSE [id number] 07:57:00 Test Item Value Reference Range Interpretation Comments POC-GLUCOSE METER 126 mg/dL 70-110 H : TESTED A T [facility] 6720 (BEAKER) (test code = [facility], 1538) 37135: Investigator Operator/Techni rigoberto ID = [id number] for ZOYA STOCKTON [id number] 06:40:00 Test Item Value Reference Range Interpretation Comments MAGNESIUM (BEAKER) (test code = 1.9 mg/dL 1.6-2.6 627) Investigator Operator ID Vikki SIERRA [id number] 06:40:00 Test Item Value Reference Range Interpretation Comments PHOSPHORUS (BEAKER) (test code = 1.6 mg/dL 2.3-4.7 L 604) Investigator Operator ID - MARIELA MBASIC METABOLIC [id number] 06:40:00 Test Item Value Reference Range Interpretation [...] S NOT APPLICABLE FOR DIALYSIS PATIEN TS. Investigator Operator ID - MARIELA MSpecimen slightly [id number] 06:06:00 Test Item Value Reference Range Interpretation [...] 0-0 (BEAKER) (test code = 413) POCT-GLUCOSE [id number] 21:32:00 Test Item Value Reference Range Interpretation Comments POC-GLUCOSE METER 181 mg/dL 70-110 H : TESTED A T [facility] 6720 (BEAKER) (test code = [facility], 1538) [address]: Investigator Operator/Techni rigoberto ID = [id number] for ANGELINE MCDANIELS SE [id number] 05:46:00 Test Item Value Reference Range Interpretation Comments MAGNESIUM (BEAKER) (test code = 2.1 mg/dL 1.6-2.6 627) Investigator Operator ID - MARIELA [id number] 05:46:00 Test Item Value Reference Range Interpretation Comments PHOSPHORUS (BEAKER) (test code = 2.2 mg/dL 2.3-4.7 L 604) Investigator Operator ID - MARIELA MBASIC METABOLIC [id number] 05:46:00 Test Item Value Reference Range Interpretation [...] S NOT APPLICABLE FOR DIALYSIS PATIEN TS. Investigator Operator ID - MARIELA MSpecimen slightly [id number] 05:09:00 Test Item Value Reference Range Interpretation [...] 0-0 (BEAKER) (test code = 413) POCT-GLUCOSE [id number] 22:46:00 Test Item Value Reference Range Interpretation Comments POC-GLUCOSE METER 169 mg/dL 70-110 H : TESTED A T [facility] 6720 (BEAKER) (test code = [facility], 1538) 33993: Investigator Operator/Techni rigoberto ID = [id number] for Myesha Ellis [id number] 21:21:00 Test Item Value Reference Range Interpretation Comments PARTIAL THROMBOPLASTIN TIME 77.7 seconds 22.5-36.0 H (BEAKER) (test code = 760) POCT-GLUCOSE [id number] 18:17:00 Test Item Value Reference Range Interpretation Comments POC-GLUCOSE METER 150 mg/dL 70-110 H : TESTED A T [facility] 6720 (BEAKER) (test code = [facility], 1538) 01598: Investigator Operator/Techni rigoberto ID = [id number] for Braden bos, Dianca [id number] 15:04:00 Test Item Value Reference Range Interpretation Comments PARTIAL THROMBOPLASTIN TIME 77.0 seconds 22.5-36.0 H (BEAKER) (test code = 760) [id number] 14:33:00 Test Item Value Reference Range Interpretation Comments MAGNESIUM (BEAKER) 2.3 mg/dL 1.6-2.6 Specimen slightly (test code = 627) hemolyzed Investigator Operator ID - HARJIT CBASIC METABOLIC [id number] 14:33:00 Test Item Value Reference Range Interpretation [...] S NOT APPLICABLE FOR DIALYSIS PATIEN TS. Investigator Operator ID - FEB CSpecimen moderately ictericPOCT-GLUCOSE [id number] 13:59:00 Test Item Value Reference Range Interpretation Comments POC-GLUCOSE METER 246 mg/dL 70-110 H : TESTED A T [facility] 6720 (BEAKER) (test code = [facility], 1538) 48211: Investigator Operator/Techni rigoberto ID = [id number] for CASEY SANFORD POCT-GLUCOSE [id number] 09:12:00 Test Item Value Reference Range Interpretation Comments POC-GLUCOSE METER 161 mg/dL 70-110 H : TESTED A T [facility] 6720 (BEAKER) (test code = [facility], 1538) 70621: Investigator Operator/Techni rigoberto ID = [id number] for JAMES OSBORNE RAD, CHEST, 1 VIEW, NON [id number] 08:16:00Reason for exam:->post-extubationShould this be performed at the bedside?->Yes [facility] 1945 Sex: MFINAL REPORT Chest, one [...] abdominal pain, consider a KUB. Signed: Ronni Pereira MDReport Verified Date/Time: 12/14/2019 08:16:23 Reading Location: [address] Body Reading Room [id number] 08:12:00 Test Item Value Reference Range Interpretation Comments PARTIAL THROMBOPLASTIN TIME 62.4 seconds 22.5-36.0 H (BEAKER) (test code = 760) [id number] 05:48:00 Test Item Value Reference Range Interpretation Comments PARTIAL THROMBOPLASTIN TIME 148.8 seconds 22.5-36.0 H (BEAKER) (test code = 760) BLOOD GAS, [id number] 05:30:00 Test Item Value Reference Range Interpretation [...] WBC 0-0 (BEAKER) (test code = 413) [id number] 04:00:00 Test Item Value Reference Range Interpretation Comments MAGNESIUM (BEAKER) (test code = 2.3 mg/dL 1.6-2.6 627) Investigator Operator ID - [id number] 04:00:00 Test Item Value Reference Range Interpretation Comments PHOSPHORUS (BEAKER) (test code = 3.4 mg/dL 2.3-4.7 604) Investigator Operator ID - EDASIBASIC METABOLIC [id number] 04:00:00 Test Item Value Reference Range Interpretation [...] S NOT APPLICABLE FOR DIALYSIS PATIEN TS. Investigator Operator ID - EDASISpecimen slightly ictericRAD, CHEST, 1 VIEW, NON DEPT 2019-12-14 00:36:00Reason for exam:->Post-opShould this be performed at the bedside?->YesLUCIANO [facility] : 1945 Sex: MFINAL REPORT RAD, CHEST, [...] mediastinum: Stable contours.Additional findings: None. Signed: Vamsi Fosterephorace Verified Date/Time: 12/14/2019 00:36:00 [id number] 23:58:00 Test Item Value Reference Range Interpretation Comments PARTIAL THROMBOPLASTIN TIME 42.6 seconds 22.5-36.0 H (BEAKER) (test code = 760) BASIC METABOLIC [id number] 23:58:00 Test Item Value Reference Range Interpretation [...] S NOT APPLICABLE FOR DIALYSIS PATIEN TS. Investigator Operator ID - [id number] 23:58:00 Test Item Value Reference Range Interpretation Comments MAGNESIUM (BEAKER) (test code = 2.6 mg/dL 1.6-2.6 627) Investigator Operator ID - [id number] 23:58:00 Test Item Value Reference Range Interpretation Comments PHOSPHORUS (BEAKER) (test code = 4.1 mg/dL 2.3-4.7 604) Investigator Operator ID - DBPROTHROMBIN TIME/[id number] 23:57:00 Test Item Value Reference Range Interpretation [...] 0-0 (BEAKER) (test code = 413) POCT-GLUCOSE [id number] 23:36:00 Test Item Value Reference Range Interpretation Comments POC-GLUCOSE METER 158 mg/dL 70-110 H : TESTED A T [facility] 67[facility] (BEAKER) (test code = [facility], 1538) 05289: Investigator Operator/Techni rigoberto ID = [id number] for LLA, HERON BLOOD GAS, [id number] 23:32:00 Test Item Value Reference Range Interpretation [...] FIO2 (BEAKER) (test code = 1819) 60.0 CALCIUM, [id number] 23:30:00 Test Item Value Reference Range Interpretation Comments CALCIUM IONIZED (BEAKER) (test 1.20 mmol/L 1.12-1.27 code = 698) PH, BLOOD (BEAKER) (test code = 7.31 1810) [id number] 21:55:00 Test Item Value Reference Range Interpretation Comments ACTIVATED CLOTTING TIME 125 sec : 74 -137 seconds, (BEAKER) (test code = Baseli ne: TESTED AT 441) [facility] 6720 [facility] [place], 770 30: Investigator Operator/Techni rigoberto ID = [id number] for LETHRIDGE, HERNANDEZ CRUZ [id number] 21:55:00 Test Item Value Reference Range Interpretation Comments ACTIVATED CLOTTING TIME 235 sec : 74 -137 seconds, (BEAKER) (test code = Baseli ne: TESTED AT 441) [address], [facility] 30: Investigator Operator/Techni rigoberto ID = [id number] for MARY GIBBS CRUZ [id number] 21:55:00 Test Item Value Reference Range Interpretation Comments ACTIVATED CLOTTING TIME 241 sec : 74 -137 seconds, (BEAKER) (test code = Baseli ne: TESTED AT 441) [address], [facility] 30: Investigator Operator/Techni rigoberto ID = [id number] for LETHRIDGINA, MARY CRUZ [id number] 21:55:00 Test Item Value Reference Range Interpretation Comments ACTIVATED CLOTTING TIME 241 sec : 74 -137 seconds, (BEAKER) (test code = Neydai ne: TESTED AT 441) [address], [facility] 30: Investigator Operator/Techni rigoberto ID = [id number] for LETHRIDGINA, MARY CRUZ [id number] 21:55:00 Test Item Value Reference Range Interpretation Comments ACTIVATED CLOTTING TIME 246 sec : 74 -137 seconds, (BEAKER) (test code = Baseli ne: TESTED AT 441) [address], [facility] 30: Investigator Operator/Techni rigoberto ID = [id number] for CA STRO, JUVE SODIUM NA-STAT [id number] 20:53:00 Test Item Value Reference Range Interpretation Comments SODIUM (BEAKER) (test code = 381) 138 meq/L 136-145 POTASSIUM-STAT [id number] 20:53:00 Test Item Value Reference Range Interpretation Comments POTASSIUM (BEAKER) (test code = 4.0 meq/L 3.6-5.5 379) CALCIUM, [id number] 20:53:00 Test Item Value Reference Range Interpretation Comments CALCIUM IONIZED (BEAKER) (test 1.16 mmol/L 1.12-1.27 code = 698) PH, BLOOD (BEAKER) (test code = 7.34 1810) BLOOD GAS, [id number] 20:53:00 Test Item Value Reference Range Interpretation [...] (BEAKER) (test code = 1819) 60.0 GLUCOSE-STAT [id number] 20:53:00 Test Item Value Reference Range Interpretation Comments GLUCOSE RANDOM (BEAKER) (test code 138 mg/dL 70-110 H = 652) HGB/HCT (H&H) - STAT [id number] 20:53:00 Test Item Value Reference Range Interpretation Comments HEMOGLOBIN (BEAKER) (test code = 10.1 GM/DL 13.0-16.8 L 410) HEMATOCRIT (BEAKER) (test code = 30.0 % 40.0-50.0 L 411) CALCIUM, [id number] 19:44:00 Test Item Value Reference Range Interpretation Comments CALCIUM IONIZED (BEAKER) (test 1.20 mmol/L 1.12-1.27 code = 698) PH, BLOOD (BEAKER) (test code = 7.36 1810) SODIUM NA-STAT [id number] 19:43:00 Test Item Value Reference Range Interpretation Comments SODIUM (BEAKER) (test code = 381) 138 meq/L 136-145 POTASSIUM-STAT [id number] 19:43:00 Test Item Value Reference Range Interpretation Comments POTASSIUM (BEAKER) (test code = 3.6 meq/L 3.6-5.5 379) BLOOD GAS, [id number] 19:43:00 Test Item Value Reference Range Interpretation [...] (BEAKER) (test code = 1819) 60.0 GLUCOSE-STAT [id number] 19:43:00 Test Item Value Reference Range Interpretation Comments GLUCOSE RANDOM (BEAKER) (test code 125 mg/dL 70-110 H = 652) HGB/HCT (H&H) - STAT [id number] 19:43:00 Test Item Value Reference Range Interpretation Comments HEMOGLOBIN (BEAKER) (test code = 6.4 GM/DL 13.0-16.8 L 410) HEMATOCRIT (BEAKER) (test code = 19.0 % 40.0-50.0 L 411) LACTIC ACID, [id number] 18:50:00 Test Item Value Reference Range Interpretation Comments LACTATE BLOOD ARTERIAL (2) 0.7 mmol/L 0.5-2.2 (BEAKER) (test code = 2874) Investigator Operator ID - BSCALCIUM, [id number] 18:29:00 Test Item Value Reference Range Interpretation Comments CALCIUM IONIZED (BEAKER) (test 1.07 mmol/L 1.12-1.27 L code = 698) PH, BLOOD (BEAKER) (test code = 7.31 1810) BLOOD GAS, [id number] 18:29:00 Test Item Value Reference Range Interpretation [...] (BEAKER) (test code = 1819) 68.0 POTASSIUM-STAT [id number] 18:29:00 Test Item Value Reference Range Interpretation Comments POTASSIUM (BEAKER) (test code = 3.4 meq/L 3.6-5.5 L 379) GLUCOSE-STAT [id number] 18:29:00 Test Item Value Reference Range Interpretation Comments GLUCOSE RANDOM (BEAKER) (test code 138 mg/dL 70-110 H = 652) HGB/HCT (H&H) - STAT [id number] 18:29:00 Test Item Value Reference Range Interpretation Comments HEMOGLOBIN (BEAKER) (test code = 8.9 GM/DL 13.0-16.8 L 410) HEMATOCRIT (BEAKER) (test code = 26.0 % 40.0-50.0 L 411) SODIUM NA-STAT [id number] 18:28:00 Test Item Value Reference Range Interpretation Comments SODIUM (BEAKER) (test code = 381) 138 meq/L 136-145 CBC WITH PLATELET COUNT + MANUAL [id number] 14:30:00 Test Item Value Reference Range Interpretation [...] MORPHOLOGY (BEAKER) (test code Normal = 486) Investigator Operator ID - [id number] W/PLT COUNT & AUTO [id number] 13:53:00 Test Item Value Reference Range Interpretation [...] (BEAKER) (test code = 413) BASIC METABOLIC [id number] 12:20:00 Test Item Value Reference Range Interpretation [...] S NOT APPLICABLE FOR DIALYSIS PATIEN TS. Investigator Operator ID - TI [id number] 12:20:00 Test Item Value Reference Range Interpretation Comments MAGNESIUM (BEAKER) (test code = 1.9 mg/dL 1.6-2.6 627) Investigator Operator ID - TI [id number] 12:20:00 Test Item Value Reference Range Interpretation Comments PHOSPHORUS (BEAKER) (test code = 3.8 mg/dL 2.3-4.7 604) Investigator Operator ID - TI [id number] 12:02:00 Test Item Value Reference Range Interpretation Comments PARTIAL THROMBOPLASTIN TIME 36.1 seconds 22.5-36.0 H (BEAKER) (test code = 760) PROTHROMBIN [id number] 12:01:00 Test Item Value Reference Range Interpretation [...] INR is2.5-3.5 for patients wiht mechanical heart valves.URINALYSIS W/ REFLEX URINE CULTURE 2019-12-13 11:56:00 Test Item Value Reference Range Interpretation [...] Rare 517) SOURCE(BEAKER) (test code = 2795) Investigator Operator ID - [auto]Investigator Operator ID - techRAD, CHEST, 1 VIEW, NON [id number] 11:28:00Reason for exam:->Post-opShould this be performed at the bedside?->[facility] : 1945 Sex: MFINAL REPORT CLINICAL HISTORY: Post-op TECHNIQUE: 1 view of the chest. COMPARISON: 12/11/2019 IMPRESSION: There are new mildly prominent lung markings in the right upper lung and bilateral lower lung zones. There are no significant appearing pleural effusions. The cardiomediastinal silhouette is magnified by technique. Signed: Vane Bruce MDReport Verified Date/Time: 12/13/2019 11:28:43 Reading Location: [facility] Reading Room SODIUM NA- STAT [id number] 08:38:00 Test Item Value Reference Range Interpretation Comments SODIUM (BEAKER) (test code = 381) 138 meq/L 136-145 CALCIUM, [id number] 08:38:00 Test Item Value Reference Range Interpretation Comments CALCIUM IONIZED (BEAKER) (test 1.10 mmol/L 1.12-1.27 L code = 698) PH, BLOOD (BEAKER) (test code = 7.41 1810) BLOOD GAS, [id number] 08:38:00 Test Item Value Reference Range Interpretation [...] (BEAKER) (test code = 1819) 50.0 POTASSIUM-STAT [id number] 08:38:00 Test Item Value Reference Range Interpretation Comments POTASSIUM (BEAKER) (test code = 3.2 meq/L 3.6-5.5 L 379) GLUCOSE-STAT [id number] 08:38:00 Test Item Value Reference Range Interpretation Comments GLUCOSE RANDOM (BEAKER) (test code 148 mg/dL 70-110 H = 652) HGB/HCT (H&H) - STAT [id number] 08:38:00 Test Item Value Reference Range Interpretation Comments HEMOGLOBIN (BEAKER) (test code = 9.0 GM/DL 13.0-16.8 L 410) HEMATOCRIT (BEAKER) (test code = 26.0 % 40.0-50.0 L 411) HEMOGLOBIN [id number] 08:26:00 Test Item Value Reference Range Interpretation Comments HEMOGLOBIN A1C (BEAKER) (test code = 5.2 % 4.3-6.1 368) Please recheckPlease recheckBASIC METABOLIC [id number] 05:01:00 Test Item Value Reference Range Interpretation [...] S NOT APPLICABLE FOR DIALYSIS PATIEN TS. Investigator Operator ID - [id number] 05:01:00 Test Item Value Reference Range Interpretation Comments MAGNESIUM (BEAKER) (test code = 2.0 mg/dL 1.6-2.6 627) Investigator Operator ID - [id number] 05:01:00 Test Item Value Reference Range Interpretation Comments PHOSPHORUS (BEAKER) (test code = 3.8 mg/dL 2.3-4.7 604) Investigator Operator ID - EDASIPOCT-GLUCOSE [id number] 21:38:00 Test Item Value Reference Range Interpretation Comments POC-GLUCOSE METER 216 mg/dL 70-110 H : TESTED A T [facility] 6720 (BEAKER) (test code = [place], 1538) [address]: Investigator Operator/Techni rigoberto ID = [id number] for Re yes, Sairy PROTHROMBIN [id number] 19:09:00 Test Item Value Reference Range Interpretation [...] for patients wiht mechanical heart valves.BASIC METABOLIC [id number] 17:03:00 Test Item Value Reference Range Interpretation [...] S NOT APPLICABLE FOR DIALYSIS PATIEN TS. Investigator Operator ID - BSPOCT-GLUCOSE [id number] 16:54:00 Test Item Value Reference Range Interpretation Comments POC-GLUCOSE METER 125 mg/dL 70-110 H : TEST[facility] T [facility] 67[facility] (test code = [place], 1538) [address]: Investigator Operator/Techni rigoberto ID = [id number] for PHYLLIS FIORE SARS-COV2/RT-PCR ([facility])2019-12-11 21:52:00 Test Item Value Reference Range Interpretation Comments SARS-COV2/RT-PCR (test Negative Not Detected, Negative, code = 3510676) See external report for linked test SARS-COV-[address] [facility] GENEVIEVE (test code = 0429211) Negative result for this test determines that [...] of the Act.Testing was performed using the Bazzi SARS-CoV-2 assay.Fact Sheet for Healthcare Providers:https://www.molecular.bazzi/nicky/ OM_XEDZ-RqV-0_YUJ_Phee_Gcfgy_70-158300.pdfFact Sheet for Healthcare Patients:https://www.Cloudbot.ab hoang/nicky/EC_VSHE-LyZ-9_Kqumiwq_Nabv_Lubax_JS_35-543899Y4.pdfPerforming Laboratory:[facility] [place], [place] [address]c[place] [address] HEPATITIS B [id number] 19:59:00 Test Item Value Reference Range Interpretation Comments HEPATITIS B CORE TOTAL ANTIBODY Nonreactive Nonreactive (BEAKER) (test code = 497) HEPATITIS B SURFACE ANTIBODY < mIU/mL <8.0 (BEAKER) (test code = 647) HEPATITIS B SURFACE ANTIGEN (2) Nonreactive Nonreactive (BEAKER) (test code = 2585) Investigator Operator ID - ADMINHEMOGLOBIN [id number] 19:58:00 Test Item Value Reference Range Interpretation Comments HEMOGLOBIN A1C (BEAKER) (test code = 5.5 % 4.3-6.1 368) Received comment: User comments: Slide comments: Received comment: User comments: Slide comments:HEPATITIS C [id number] 19:52:00 Test Item Value Reference Range Interpretation Comments HEPATITIS C ANTIBODY (BEAKER) Nonreactive Nonreactive (test code = 367) Investigator Operator ID - ADMINHIV-1 ANTIGEN WITH HIV-1/2 [id number] 19:52:00 Test Item Value Reference Range Interpretation Comments HIV-1 ANTIGEN WITH HIV 1\\T\\2 Nonreactive Nonreactive ANTIBODY (2) (BEAKER) (test code = 2586) Investigator Operator ID - ADMIN(CELLAVISION MANUAL DIFF)2019-12-11 15:57:00 Test Item Value Reference [...] CONCENTRATION Adequate (CELLAVISION)(BEAKER) (test code = 3438) Investigator Operator ID - villa Robles comments: Slide comments:CBC W/PLT COUNT & AUTO [id number] 15:28:00 Test Item Value Reference Range Interpretation [...] (test code = 413) RAD, CHEST, 2 [id number] 13:32:00Reason for Exam:->[facility] : 1945 Sex: MFINAL REPORT PA and Lateral views of the chest dated 12/11/2019 Cl inical information: pre-op Comment: Heart is normal in size. Thoracic aorta is ectatic. Pulmonary vasculature is unremarkable. Lungs are clear. No pulmonary infiltrate or pleural effusion is present.Impression: No active cardiopulmonary disease. Signed: Vamsi Johns Verified Date/Time: 12/11/2019 13:32:39 Reading Location: [facility] Radiology Reading Room BASI METABOLIC PANEL 2019-12-11 12:30:00 Test Item Value Reference Range Interpretation [...] S NOT APPLICABLE FOR DIALYSIS PATIEN TS. Investigator Operator ID - JMALKALINE [id number] 11:26:00 Test Item Value Reference Range Interpretation Comments ALKALINE PHOSPHATASE (BEAKER) (test 93 U/L 40-150 code = 346) Investigator Operator ID - ADMINPROTEIN, [id number] 11:26:00 Test Item Value Reference Range Interpretation Comments TOTAL PROTEIN (BEAKER) (test code = 6.1 gm/dL 6.0-8.3 770) Investigator Operator ID - ADMINAST (SGOT)2019-12-11 11:26:00 Test Item Value Reference Range Interpretation Comments AST (SGOT) (BEAKER) (test code = 353) 12 U/L 5-34 Investigator Operator ID - ADMINALT (SGPT)2019-12-11 11:26:00 Test Item Value Reference Range Interpretation Comments ALT (SGPT) (BEAKER) (test code = 347) 12 U/L 6-55 Investigator Operator ID - [id number] 11:26:00 Test Item Value Reference Range Interpretation Comments ALBUMIN (BEAKER) (test code = 1145) 4.1 g/dL 3.5-5.0 Investigator Operator ID - [id number] 11:26:00 Test Item Value Reference Range Interpretation Comments AMYLASE (BEAKER) (test code = 349) 30 U/L 25-125 Investigator Operator ID - ADMINBILIRUBIN, ADULT [id number] 11:26:00 Test Item Value Reference Range Interpretation Comments BILIRUBIN TOTAL (BEAKER) (test code 0.9 mg/dL 0.2-1.2 = 377) Investigator Operator ID - ADMINBILIRUBIN, [id number] 11:26:00 Test Item Value Reference Range Interpretation Comments BILIRUBIN DIRECT (BEAKER) (test 0.4 mg/dL 0.1-0.5 code = 706) Investigator Operator ID - ADMINLACTATE DEHYDROGENASE (LDH)2019-12-11 11:26:00 Test Item Value Reference Range Interpretation Comments LACTATE DEHYDROGENASE (BEAKER) (test 177 U/L 125-220 code = 635) Investigator Operator ID - [id number] 11:26:00 Test Item Value Reference Range Interpretation Comments LIPASE (BEAKER) (test code = 749) 22 U/L 8-78 Investigator Operator ID - ADMINURINALYSIS W/ [id number] 11:18:00 Test Item Value Reference Range Interpretation [...] = 516) SOURCE(BEAKER) (test code = 2795) Investigator Operator ID - [auto]Investigator Operator ID - [id number] 11:14:00 Test Item Value Reference Range Interpretation Comments PARTIAL THROMBOPLASTIN TIME 32.6 seconds 22.5-36.0 (BEAKER) (test code = 760) PROTHROMBIN TIME/[id number] 11:13:00 Test Item Value Reference Range Interpretation [...] INR is2.5-3.5 for patients wiht mechanical heart valves.RETICULOCYTE [id number] 11:12:00 Test Item Value Reference Range Interpretation Comments RETICULOCYTE COUNT PCT (BEAKER) (test 3.3 % 0.5-1.8 H code = 575) Investigator Operator ID - [id number], CTA, [id number] 14:08:00Part of CTA Chest, ABD and Pelvis for AAAUnlisted Reason for Exam - Click Yes and Enter Reason Below->No FINAL REPORT EXAM: CTA OF THE THORACOABDOMINAL [...] of the infrarenal abdominal aorta, which begins 5 .2 cm below the right renal artery and extends down to just above the bifurcation. The aneurysm is associated with moderate amount of intraluminal thrombus, which contains mild internal calcification, and resulting in 40% of intraluminal narrowing with a minimal lumen of 3.6 cm. There is a 10 mm penetr ating ulcer within the aneurysm, at the level [...] nonobstructing atherosclerotic changes throughout the abdominal aorta. Pick Pulling Machine Tender dimensions of the thoracic aorta are as [...] appear normal. The spleen is mildly enlarged, tynivdiig85 cm in length in the craniocaudal dimension. [...] previously measured 3.7cm on CT urogram from 2014. 3. 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 4. Nonvascular findings:- Mediastinal, bilateral hilar, and abdominal lymphadenopathy highly concerning for metastasis.- Asymmetric right urinary bladder wall thickening may correlate with this patient bladder cancer. Signed: Kim Hamilton MDReport Verified Date/Time: 11/05/2019 14:08:15 Reading Location: [facility] Reading Room [address] [place] [address] CT, CTA, [id number] 14:08:00Unlisted Reason for Exam - Click Yes [...] nonobstructing atherosclerotic changes throughout the abdominal aorta. Pick Pulling Machine Tender dimensions of the thoracic aorta are as [...] appear normal. The spleen is mildly enlarged, sqztebejz69 cm in length in the craniocaudal dimension. [...] previously measured 3.7cm on CT urogram from 2014. 3. 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 4. Nonvascular findings:- Mediastinal, bilateral hilar, and abdominal lymphadenopathy highly concerning for metastasis.- Asymmetric right urinary bladder wall thickening may correlate with this patient bladder cancer. Signed: Kim Hamilton Verified Date/Time: 11/05/2019 14:08:15 Reading Location: [facility] Room [address] [place] [address] [id number] 07:38:00 Test Item Value Reference Range Interpretation Comments POC-CREATININE 1.7 mg/dL 0.6-1.3 H : TESTED AT B [facility] ([facility]) (test [address] BLDG code = 1859) A, [facility] 7 7030: Investigator Operator/Techni rigoberto ID = [id number] for IRVIN LOMBARDI POC-EGFR 40 mL/min/1.73M2 ([facility]) (test code = 1860) TISSUE [id number] 14:55:00Surgical Pathology Report Case: [id number] Authorizing Provider: Brown Hannah MD Collected: 02/16/2018 1004 Ordering Location: [facility] Received: 02/16/2018 1117 SERVICES Pathologist: [...] CHRONIC INFLAMMATION Signing Pathologist Direct Phone Line: [phone] signed by Nicolas Diaz MD on 02/20/2018 at 2:55 [id number] X 2Malignant neoplasm of urinary bladder A. [...] = 13) 50-59,000 col/mL skin floraURINALYSIS W/ [id number] 18:16:00 Test Item Value Reference Range Interpretation [...] = Occasional 1585) SOURCE(BEAKER) (test code = 3713) CBC W/PLT COUNT & AUTO [id number] 17:52:00 Test Item Value Reference Range Interpretation [...] Received comment: User comments: Slide comments:BASIC METABOLIC [id number] 17:40:00 Test Item Value Reference Range Interpretation [...] FOR DIALYSIS PATIEN TS. RAD, CHEST, 2 [id number] 16:22:00Reason for exam:->pre-op testingShould this be performed at the bedside?->NoFINAL REPORT Chest, PA and lateral. History: Preoperative. Comparison: 08/24/2017. Discussion: Cardiomegaly and thoracic aortic ectasia. The lungs are clear without evidence of consolidation or effusion. There are no acute osseous abnormalities. The soft tissues are unremarkable. IMPRESSION: No acute cardiopulmonary abnormality. Signed: Humberto Armas MDReport Verified Date/ Time: 02/12/2018 16:22:15 Reading Location: [address] Radiology Reading Room TISSUE [id number] 17:10:00Surgical Pathology Report Case: [id number] Authorizing Provider: Brown Hannah MD Collected: 08/25/2017 1030 Ordering Location: [facility] Received: 08/25/2017 1434 SERVICES Pathologist: [...] NOT PRESENT Signing Pathologist Direct Phone Line: [phone] signed by Nicolas Diaz MD on 08/28/2017 at 5:10 PMThe focus of invasion on specimen B. Is into the lamina propria of one papillary stalk and consists of on 3-4 tiny cell clusters. A. 71999M. 04525L. 79278E. 33767Fybputdeb neoplasm of urinary bladder A. Bladder tumor [...] to 0.4 cm. Submitted D1. CG/pl PerformedURINE [id number] 16:00:00 Test Item Value Reference Range Interpretation [...] comments: Slide comments:CBC W/PLT COUNT & AUTO [id number] 20:06:00 Test Item Value Reference Range Interpretation [...] (test code = 413) RAD, CHEST, 2 [id number] 16:22:00Reason for Exam:->bladder cancer, pre- op testingFINAL [...] Otherwise, no acute cardiopulmonary abnormality. Signed: Brett Conner MDReport Verified Date/Time: 08/23/2017 16:22:14 Reading Location: [address] Reading Room BASI METABOLIC [id number] 16:10:00 Test Item Value Reference Range Interpretation [...] APPLICABLE FOR DIALYSIS PATIEN TS. URINALYSIS W/ [id number] 16:01:00 Test Item Value Reference Range Interpretation [...] = Rare 1574) SOURCE(BEAKER) (test code = 4009) [id number] 15:55:00 Test Item Value Reference Range Interpretation Comments PARTIAL THROMBOPLASTIN TIME 31.6 seconds 22.5-36.0 (BEAKER) (test code = 760) PROTHROMBIN TIME/[id number] 15:54:00 Test Item Value Reference Range Interpretation Comments PROTIME (BEAKER) (test code = 14.8 seconds 11.7-14.7 H 759) INR (BEAKER) (test code = 370) 1.2 <=5.9 RECOMMENDED COUMADIN/WARFARIN INR THERAPY RANGESSTANDARD DOSE: 2.0 - 3.0 Includes: PROPHYLAXIS forvenous thrombosis, systemic embolization; TREATMENT for venous thrombosis and/or pulmonary embolus.HIGH RISK: Target INR is 2.5-3.5 for patients with mechanical heart valves.WOTEWTSJZR7621-77-17 10:07:0032.2[facility] NcjcfoaVVNBAQQWNB5282-18-45 10:07:008.6[facility] SazgsmpHKFWRBLGMP8953-16-23 10:07:97761Mqgxkwdk JplieomOJYQXNJCDA7847-84-75 10:07:0016.8[facility] SKUNSDEXML4643-59-92 10:07:0011.3[facility] ZpangcuIGRBRCGWJQ7547-86-67 10:07:00 4.00[facility] EpkvxjsIKVNSSFPDE3705-21-54 10:07:0051.5[facility]annHEMATOLOGY 2017-05-29 10:07:0087.5[facility] AyqwxpoVLCIMZASRV4736-50-13 10:07:0035.0[facility] PxktjbcDAULMBMORW0757-25-07 10:07:00 Test Item Value Reference Range Interpretation Comments MCH (test code = MCH) 28.2 pg 27.0-31.0 [facility] DejfwxhFBTIWRBWBJ5523-86-07 10:07:001.8[facility]annHEMATOLOGY 2017-05-29 10:07:000.1[facility] VnfjnbhDJOYJFEIWO4785-01-69 10:07:000.5[facility] GamtguoBDPQLARJNT3027-59-33 10:07:003.5[facility] WffxbogVXDRIPNXXY1636-51-94 10:07:0077.1[facility] EgmqfomHJQGRFALNI4495-57-57 10:07:0018.1[facility] RVEWTIHDJR9428-49-70 10:07:0039.7[facility] OeqhgsfQGNLUWTKUM8333-54-84 10:07:00 1.0[facility] IxxpdpjHUOBFDGQFV6445-98-14 10:07:009.3[facility]annHEMATOLOGY 2017-05-29 10:07:000.3[facility] UweakmgAWBBVWEUNP1630-73-30 10:41:001.0[facility] TozmjdcRIRNUSSROK3928-64-07 10:41:002.0[facility] PjqhxhcRPMWSPGYGE0994-65-98 10:41:00 Test Item Value Reference Range Interpretation Comments Tot Cell Ct (test code = Tot Cell Ct) 100 1 [facility] AvcnkqhBJRCIEEABL3260-56-60 10:41:002.0[facility]annHEMATOLOGY 2017-05-28 10:41:001+ (05/28/17 5:41 AM)[facility] LwpcxioBGCLIXRPCY7663-25-63 10:41:00Moderate *ABN*(05/28/17 5:41 AM)[facility] BmnlclgTQPXLBLXWY9728-71-71 10:41:001+ *ABN*(05/28/17 5:41 AM)[facility] HaqjgmoLQZMJNSJHC2429-45-18 10:41:001+ *ABN*(05/28/17 5:41 AM)[facility] UcnerncIUXQEMEORV4318-35-76 10:41:0042.8[facility] ZzlbhinBJYCHBCLUW2010-30-76 10:41:0013.0[facility] CixvxsgEZUXAHQRIJ3410-37-63 10:41:000.5[facility] XjjpbdwXWSRUGJKUB4710-48-46 10:41:0082.0[facility] RJXQIXAQIW9881-48-72 10:41:000.0[facility] XikvqdsTZKYESITLA4862-04-01 10:41:006.6 [facility] SeicltbIBXVJFCRKG5922-40-01 10:41:001.0[facility]annHEMATOLOGY 2017-05-28 10:41:04685Iubqgugj HhdcezuYOICUXNPZD1759-17-77 10:41:0016.4[facility] DmzwjsdBBAGWQIUSW4206-24-94 10:41:00 Test Item Value Reference Range Interpretation Comments MCH (test code = MCH) 27.8 pg 27.0-31.0 [facility] FwgipfaUSZRUNBXQK6423-33-23 10:41:0032.2[facility]annHEMATOLOGY 2017-05-28 10:41:0086.2[facility] IrtlgjdEJGAOSENIU9651-32-46 10:41:0035.5[facility] DenvxgpTQPZLHFAIZ1797-29-98 10:41:008.2[facility] IioaihqPYFZASLRXS4846-42-66 10:41:0011.4[facility] MjpqtcdYJLTZYHVYV8371-43-25 10:41:004.13[facility] LCMHTXGVSL1522-58-20 10:41:0051.0[facility] HermannCHEM TZPVZ4752-62-31 13:34:0068 [facility]annCHEM TVJVC6201-65-99 13:34:0024[facility] HermannCHEM PANEL 2017-05-27 13:34:36570Ymbprrzc HermannCHEM RQRLO7957-53-56 13:34:003.8[facility]annCHEM HBRJV2181-21-78 13:34:93118Fptagqwy HermannCHEM TWIVM8044-04-36 13:34:001.08[facility] HermannCHEM KYLSS0463-93-34 13:34:0020[facility]annCHEM XTTNH6028-52-85 13:34:008.7[facility]annCHEM XCTZU1153-53-98 13:34:57317 [facility]annCHEM JWNFN1920-92-00 13:34:0014.8[facility]annHEMATOLOGY 2017-05-27 13:34:001.3[facility] CwmklpyATTEMGGVFW7148-01-82 13:34:000.5[facility] OxleulxTGSAIZZONO7476-23-43 13:34:000.3[facility] BrnuvguWLFNWZYEMM5468-48-91 13:34:000.8[facility] GvmbrczCYOUWOMZZQ9272-24-29 13:34:0010.9[facility] CQJEBUBDRT0315-10-87 13:34:0044.6[facility] ZateoadBUFTYFSNJV8175-91-16 13:34:00 0.3[facility] EzczhstTZFCWPTLRY3733-41-79 13:34:001+ *ABN*(05/27/17 8:34 AM) [facility] EmqxuzaSRWGRCONRR9605-52-33 13:34:000.2[facility] HermannHEMATOLOGY 2017-05-27 13:34:0019.3[facility] NknxzpxAEECCEDMKH1775-40-88 13:34:00Normal (05/27/17 8:34 AM)[facility] FtqbbnyAHMQSIZMZD4273-55-11 13:34:0078.6[facility] NttaqlrUKMPYQVVCE7725-61-07 13:34:80751Wrwhimvb KpaqitoSTXYVHEMAP1908-37-32 13:34:008.5[facility] LbebjorMGFMRJJDYD2041-54-67 13:34:0033.0[facility] LGVQYMOYMI1698-03-73 13:34:0016.4[facility] ZicvdfuAEOCZXGKCJ1965-25-40 13:34:00 12.4[facility] YovijpcDHJKLPHXSY5567-18-34 13:34:0086.8[facility] HermannHEMATOLOGY 2017-05-27 13:34:0037.4[facility] TrzorruIJHHTEVXPQ5425-05-44 13:34:00 Test Item Value Reference Range Interpretation Comments MCH (test code = MCH) 28.7 pg 27.0-31.0 [facility] ItbnpajOJBLUGOEAJ9587-57-75 13:34:0056.8[facility] HermannHEMATOLOGY 2017-05-27 13:34:004.31[facility] HermannBLOOD BANK WXTGRQG6844-91-95 06:34:00 Negative (05/27/17 1:34 AM)[facility]annBL[facility]OD BANK VHRVLZA5450-46-14 06:25:00 Product available (05/27/17 1:25 AM)[facility]annCHEM GKHBO3108-04-57 04:22:00 49[facility] HermannCHEM IKAWW9612-46-37 04:22:69694Tbqavike HermannCHEM PANEL 2017-05-27 04:22:003.5[facility] HermannCHEM QGAGJ3325-37-11 04:22:24897Wtwosjur HermannCHEM AYTSJ9956-97-26 04:22:0025[facility]annCHEM FISSF9164-03-70 04:22:009.1[facility] HermannCHEM CYCPH7419-61-28 04:22:59731Hzzmwukf HermannCHEM DTZEU7130-34-39 04:22:0025[facility] HermannCHEM SXOEG7731-14-53 04:22:001.41 [facility]annCHEM KQOSN5057-99-44 04:22:0012.5[facility]annHEMATOLOGY 2017-05-27 04:22:000.0[facility] AopmklfCTNMSFJTNG5307-96-27 04:22:00Normal (05/26/17 11:22 PM)[facility] LbkkfaqNQXVQFCCHP3857-17-08 04:22:000.0[facility] YqghycpOPGKETGVBC1297-00-25 04:22:00 Test Item Value Reference Range Interpretation Comments Tot Cell Ct (test code = Tot Cell Ct) 100 1 [facility]kjzjtwQDKHWMIESJ4186-30-31 04:22:00Normal (05/26/17 11:22 PM)[facility]uz[facility]wyqNEXQCMMQRH7694-26-34 04:22:00 Test Item Value Reference Range Interpretation Comments INR (test code = INR) 1.13 1 0.85-1.17 [facility] HospitalRdhczsoDPPRULYMAR1029-84-95 04:22:00 Test Item Value Reference Range Interpretation Comments PT (test code = PT) 14.5 s 12.0-14.7 [facility] HospitalJsismhfOKJHKPEVNH2247-41-45 04:22:00 Test Item Value Reference Range Interpretation Comments PTT (test code = PTT) 33.1 s 22.9-35.8 [facility] [id number] 11:52:00 Test Item Value Reference Range Interpretation Comments HEMOGLOBIN A1C (BEAKER) (test code = 6.9 % 4.3-6.1 H 368) [id number] 11:12:00 Test Item Value Reference Range Interpretation Comments RPR SCREEN (BEAKER) (test code = Nonreactive Nonreactive 420) CBC W/PLT COUNT & AUTO KUNRXYSOGBGO6046-12-54 10:31:00 Test Item Value Reference Range Interpretation [...] (BEAKER) (test code = Present 1371) VITAMIN [id number] 08:02:00 Test Item Value Reference Range Interpretation Comments VITAMIN B12 (BEAKER) (test code = 346 pg/mL 213-816 774) TSH/FREE T4 IF [id number] 08:02:00 Test Item Value Reference Range Interpretation Comments THYROID STIMULATING HORMONE 1.37 uIU/mL 0.35-4.94 (BEAKER) (test code = 772) CREATINE KINASE (CK), TOTAL AND [id number] 07:55:00 Test Item Value Reference Range Interpretation Comments CREATINE KINASE TOTAL (BEAKER) 72 U/L 29-200 (test code = 380) CREATINE KINASE-MB (BEAKER) (test 0.5 ng/mL 0.0-6.6 code = 750) CREATINE KINASE-MB INDEX (BEAKER) 0.7 % (test code = 395) CK-MB Reference Range:<6.7 Normal6.7-10.0 Borderline>10.0 AbnormalTROPONIN [id number] 07:55:00 Test Item Value Reference Range Interpretation [...] acidosis, acute neurological disease, and persistent tachyarrhythmia.LIPID [id number] 07:39:00 Test Item Value Reference Range Interpretation [...] 130-159 High 160-189 Very High >=190BASIC METABOLIC [id number] 07:39:00 Test Item Value Reference Range Interpretation [...] DIALYSIS PATIEN TS. MR, MRA, BRAIN, WITHOUT TJYPOWPV0695-07-01 04:30:00Reason for exam:->Ischemic Stroke EvaluationFINAL REPORT MR, [...] MDReport Verified Date/Time: 01/29/2017 04:30:36 Reading Location: [address] Consult Reading Room MR, MRA, NECK, WITHOUT IV WAZKDFJF4752-18-11 04:30:00Reason for exam:- >Ischemic Stroke EvaluationFINAL REPORT [...] MDReport Verified Date/Time: 01/29/2017 04:30:36 Reading Location: [facility]013X Ortho Consult Reading Room MR, BRAIN, WITHOUT DDBHHMKR9561-12-82 04:30:00Reason for exam:- >Ischemic Stroke EvaluationFINAL REPORT [...] MDReport Verified Date/Time: 01/29/2017 04:30:36 Reading Location: [facility] Reading Room CHEM ANLBD3563-09-15 20:35:0054[facility] HermannCHEM ITMDC9387-88-71 20:35:0015.8[facility] HermannCHEM GPSCY9694-51-12 20:35:009.9[facility] HermannCHEM QFXOA8378-10-03 20:35:0027[facility] HermannCHEM SSSNO2435-56-00 20:35:02247 [facility] HermannCHEM DNFIB3121-15-49 20:35:0091[facility] HermannCHEM PANEL 2016-09-19 20:35:0018[facility] HermannCHEM EFFKS7677-89-45 20:35:51610Rhpajpnz HermannCHEM QHXDN4919-37-50 20:35:001.31[facility] HermannCHEM DJZLY5772-19-96 20:35:003.8[facility]
[2020-01-31 09:56] VITALS: BMI 27.2
[2020-01-31] MEDS ORDERED: GLUCAGON 1 MG/VIAL IM PRN (10:10)
[2020-01-31] MEDS ORDERED: DOCUSATE NA/SENNA CONC 1 TAB PO PRN (10:10)
[2020-01-31] MEDS ORDERED: D50W 25 GM/50 ML VIAL IV PRN (10:28)
[2020-01-31] MEDS ORDERED: NA CHLORIDE 0.9% 250 ML IV SCH (11:00)
[2020-01-31] MEDS ORDERED: levoFLOXacin 500 MG TAB PO SCH (11:00)
[2020-01-31] MEDS ORDERED: METOPROLOL TARTRATE 5 MG/5 ML INJ IV PRN (11:11)
[2020-01-31] MEDS: INSULIN -REGULAR HUMAN 50 UNIT/0.5 ML ML SQ SCH ×2 (11:30→16:16)
[2020-01-31] MEDS ORDERED: NA CHLORIDE 0.9% 250 ML ONE (11:49)
[2020-01-31] MEDS ORDERED: DILTIAZEM HCL 120 MG SR CAP PO SCH (12:00)
--- NOTE | 2020-01-31 13:48 | PN ---
Date of Progress Note: 01/31/2020 The patient was transferred from rehab down to second floor to obtain a blood transfusion. His hemog lobin dropped to 6.9. When he was on the floor on his last admission, he received 3 units of blood, presumably secondary to a combination of generalized condition and his CLL has been diagnosed a numbe r of years ago. In any event, he also had one round of short-term burst of V-tach, which responded q uickly to IV Lopressor. In view of this, there was some question whether it was correlated with the blood transfusion. I think it was unlikely, but since that episode happens, we felt more comfortable transfusing him on the medical floor. He could be on telemetry and medication administered if neces payal. He was therefore transferred and blood transfusion has already been started, which he is rohit ating quite well. HR/MODL Voice ID: [id number] Report ID: [id number]
[2020-01-31 17:00] VITALS: BP 125/60; TEMP 97.6
[2020-01-31 17:10] LABS: Hematocrit 26.2 % (39.6-49.0)
[2020-01-31] MEDS ORDERED: ROSUVASTATIN 10 MG TAB PO SCH (21:00)
[2020-01-31] MEDS ORDERED: NYSTATIN PWDR 100000 UNIT/GM TOP SCH (21:00)
[2020-02-01] MEDS ORDERED: NEBIVOLOL HCL 5 MG TAB PO SCH (06:00)
[2020-02-01] MEDS ORDERED: FE SULF/FA/VIT B COMP & C TAB PO SCH (08:00)
[2020-02-01] MEDS ORDERED: ASPIRIN EC 81 MG TAB PO SCH (09:00)
[2020-02-01] MEDS ORDERED: CYANOCOBALAMIN 1,000 MCG TAB PO SCH (09:00)
[2020-02-01] MEDS ORDERED: FERROUS SULFATE 325 MG TAB PO SCH (09:00)
[2020-02-01] MEDS ORDERED: CLOPIDOGREL 75 MG TABLET PO SCH (09:00)
== END 2020-01-31 18:29 | DRG 842 ==
LOC: 2ND 06:30
PROVIDERS: ADMIT Internal Medicine Sleep Medicine; ATTEND Family Medicine
PROC: 30233N1 Transfusion of Nonautologous Red Blood Cells into Peripheral Vein, Percutaneous Approach (ICD-10-PCS; principal; 2020-01-31)
DX: C91.10 Chronic lymphocytic leukemia of B-cell type not having achieved remission (principal)
CPT/HCPCS: 36415; 36430; 82947; 85014; 85018; 86850; 86870; 86900; 86901; 86922; J7050; P9016

== ENCOUNTER 2020-01-31 18:42 | Inpatient (IN) | payer OTHER ==
--- OUTSIDE RECORDS SUMMARY | 2020-01-31 18:44 | XMS REPORT | Clinical Summary ---
:1945 Author Organization [facility] Address [address] [place] [address] Care Team Providers Name Role Phone MD [...] ss Type Group [employer]ET[employer] AETNA PPO OPEN [id number] 2000-Present PPO CHOICE MEDICARE MEDICARE PART A [id number] 2009-Present [facility] [place] [place] AND B Advance Directives For more information, please contact: [phone] Type Date Recorded Patient Inking Machine Tender Explanati on Advance Directives, Living Will and Medical Power of Emergency Medical Services Coordinator
--- OUTSIDE RECORDS SUMMARY | 2020-01-31 18:47 | XMS REPORT | Clinical Summary ---
:1945 Author Organization [facility] Address [address] [place] [address] Care Team Providers Name Role Phone MD [...] Encounter Cardiology Payne, Casey Aneurysm of Gee, FURNITURE RESTORER infrarenal abdominal aorta (HCC) 12/11/2019 Orders Only General Internal Medicine 12/11/2019 Travel 11/27/2019 Orders Only Cardiology Payne, Casey Aneurysm of Gee, FURNITURE RESTORER infrarenal abdominal aorta (HCC) (Primary Dx) 11/21/2019 Hospital Encounter Respiratory Therapy Payne, Casey An eurysm of infrarenal abdominal aorta (HCC); Gee, NP Tobacco use 11/14/2019 Orders Only Cardiology Payne, Casey Aneurysm of Gee, FURNITURE RESTORER infrarenal abdominal aorta (HCC) (Primary Dx) 11/13/2019 [...] aortic aneurysm (AAA) without rupture (HCC); Gee, FURNITURE RESTORER Ascending aortic aneurysm (HCC); 1, [facility] A[facility] valve disease Ct Room 11/05/2019 Hospital Encounter Computed Tomography Payne, Casey Ab dominal aortic aneurysm without rupture (HCC); MUNA Flynn Abdominal aortic aneurysm (AAA) without rupture (HCC) 1[facility] Room 10/18/2019 Orders Only Cardiology Delano [...] with No / Unsure 01/03/2020 10:16 AM RISK CONTROL SPECIALIST someone who was confirmed or suspected to have Coronavirus / COVID-19? Last Filed Vital Signs Vital Sign Reading Time Taken Comments Blood Pressure 140/66 2020 2:00 PM RISK CONTROL SPECIALIST Pulse 58 2020 2:00 PM RISK CONTROL SPECIALIST Temperature 48 C (118.4 F) 2020 11:52 AM RISK CONTROL SPECIALIST Respiratory Rate 18 2020 2:00 PM RISK CONTROL SPECIALIST Oxygen Saturation 98% 2020 1:00 PM RISK CONTROL SPECIALIST Inhaled Oxygen Concentration 21% 12/18/2019 7:44 PM RISK CONTROL SPECIALIST Weight 85.3 kg (188 lb) 2020 8:39 AM RISK CONTROL SPECIALIST Height 180.3 cm (5' 10.98") 2020 8:39 AM RISK CONTROL SPECIALIST Body Mass Index 26.23 2020 8:39 AM RISK CONTROL SPECIALIST Plan of Treatment Health Maintenance Due Date Last Done Comments COLON CANCER SCREENING COLONOSCOPY 1945 PNEUMOCOCCAL 65+ YRS (1 of 1 - [id number] PCV13) 2010 MEDICARE ANNUAL WELLNESS (YEAR 2 or FIRST YEAR if no 12/08/2010 IPPE) DEPRESSION SCREENING (12+) 02/06/2019 INFLUENZA VACCINE (#1) 2019 Implants Implanted Type Area Spinner Tender Device Identifier Shelf Model / Expiration Serial / Date Lot Stent Grft Excluder C3 31x14.5 [id number] - [id number] IMPLANTS N /A: LEANDRO SEBASTIAN & [id number] 10/15/2022 [id number] / Implanted: Qty: 1 on 12/13/2019 by Delano Barrett MD at [facility] Aorta ASSC:MED PRDT [id number] / Description:ABDOMINAL AORTA- RIGHT ILIAC Grft Leg Excluder [id number] - [id number] IMPLANTS L eft: LEANDRO SEBASTIAN & [id number] 06/23/2022 [id number] / Implanted: Qty: 1 on 12/13/2019 by Delano Barrett MD at [facility] Iliac ASSC:MED PRDT [id number] / Description:LEFT COMMON ILIAC. Stent Grft Excluder [id number] - [id number] IMPLANTS R ight: WL GORE & [id number] 01/04/2023 [id number] / Implanted: Qty: 1 on 12/13/2019 by Delano Barrett MD at [facility] Iliac ASSC:MED [id number] / PRDT Description:RIGHT COMMON ILIAC Patch Periph Vascu-Grd 0.8x8cm [id number] - [id number] IMPLAN TS Left: SYNOVIS [id number] 07/16/2024 [id number] / Implanted: Qty: 1 on 12/13/2019 by Colton Gupta MD at [facility] Arterial LIFE [id number] / TECH:SURG [id number] INNOV Description:Site: LEFT LOWER EXTREMITY Angio Seal Left: Arterial TERUMO VASCUTEK 09/06/19 21 [id number] / Implanted: Qty: 1 on 12/13/2019 by Colton Gupta MD at [facility] / [id number] Angio-Seal Vip Left: Arm Upper TERUMO [employer]ICAL MIGUEL. 10/06/2020 [id number] / Implanted: Qty: 1 on 2020 by Colton Gupta MD at [facility] / [id number] Procedures Procedure Name Priority Date/Time Associated Diagnosis Comme nts POCT-ACT Routine 2020 11:24 AM Results for this RISK CONTROL SPECIALIST procedure are i n the results section. ECG 12-LEAD Routine 2020 10:50 AM Results for this RISK CONTROL SPECIALIST procedure are i n the results section. 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 SARS-COV2/RT-PCR Routine 01/03/2020 10:25 AM Pre-op testing Re sults for this ([facility] & REF LABS) RISK CONTROL SPECIALIST procedure are in the results section . POCT-GLUCOSE METER Routine 12/19/2019 7:18 AM Re sults for this RISK CONTROL SPECIALIST procedure are i n the results section . CBC (HEMOGRAM ONLY) Routine 12/19/2019 4:49 AM R esults for this RISK CONTROL SPECIALIST procedure are i n the results section . PHOSPHORUS Routine 12/19/2019 4:49 AM Results for this RISK CONTROL SPECIALIST procedure are i n the results section . MAGNESIUM Routine 12/19/2019 4:49 AM Results for this RISK CONTROL SPECIALIST procedure are i n the results section . BASIC METABOLIC PANEL Routine 12/19/2019 4:49 AM Results for this (7) RISK CONTROL SPECIALIST procedure are i n the results section . POCT-GLUCOSE METER Routine 12/18/2019 9:00 PM Re sults for this RISK CONTROL SPECIALIST procedure are i n the results section . POCT-GLUCOSE METER Routine 12/18/2019 4:56 PM Re sults for this RISK CONTROL SPECIALIST procedure are i n the results section . POCT-GLUCOSE METER Routine 12/18/2019 11:16 AM Re sults for this RISK CONTROL SPECIALIST procedure are i n the results section . ECG 12-LEAD Routine 12/18/2019 8:29 AM Results for this RISK CONTROL SPECIALIST procedure are i n the results section . ECG 12-LEAD Routine 12/18/2019 8:29 AM RISK CONTROL SPECIALIST Procedure Note - Interface, External Ris In - 12/18/2019 7:37 AM RISK CONTROL SPECIALIST Ventricular Rate 135 BPM Atrial Rate 135 BPM P-R Interval 180 ms QRS Duration 88 ms Q-T Interval 350 ms QTC Calculation(Bazett) 525 ms P [place] 23 degrees R [place] 30 degrees T [place] [address] & T wave abnormality, con castings trimmer anterolateral ischemia Abnormal ECG When compared with ECG of 12:01, [place] interval has decreased Vent. rate has increased BY [address] now depressed in Inferior leads ST now depressed in Anterola teral leads Nonspecific T wave abnormali ty now evident in Inferior leads T wave inversion now evident in Anterolateral leads POCT-GLUCOSE METER Routine 12/18/2019 7:37 AM Re sults for this RISK CONTROL SPECIALIST procedure are i n the results section. SARS-COV2/RT-PCR ([facility] Routine 12/18/2019 5:39 AM Results for this & REF LABS) RISK CONTROL SPECIALIST procedure are i n the results section. CBC (HEMOGRAM ONLY) Routine 12/18/2019 5:24 AM R esults for this RISK CONTROL SPECIALIST procedure are i n the results section. PHOSPHORUS Routine 12/18/2019 5:24 AM Results for this RISK CONTROL SPECIALIST procedure are i n the results section. MAGNESIUM Routine 12/18/2019 5:24 AM Results for this RISK CONTROL SPECIALIST procedure are i n the results section. BASIC METABOLIC PANEL Routine 12/18/2019 5:24 AM Results for this (7) RISK CONTROL SPECIALIST procedure are i n the results section. POCT-GLUCOSE METER Routine 12/17/2019 9:25 PM Re sults for this RISK CONTROL SPECIALIST procedure are i n the results section. POCT-GLUCOSE METER Routine 12/17/2019 4:03 PM Re sults for this RISK CONTROL SPECIALIST procedure are i n the results section. POCT-GLUCOSE METER Routine 12/17/2019 11:59 AM Re sults for this RISK CONTROL SPECIALIST procedure are i n the results section. POCT-GLUCOSE METER Routine 12/17/2019 7:49 AM Re sults for this RISK CONTROL SPECIALIST procedure are i n the results section. CBC (HEMOGRAM ONLY) Routine 12/17/2019 5:11 AM R esults for this RISK CONTROL SPECIALIST procedure are i n the results section. PHOSPHORUS Routine 12/17/2019 5:11 AM Results for this RISK CONTROL SPECIALIST procedure are i n the results section. MAGNESIUM Routine 12/17/2019 5:11 AM Results for this RISK CONTROL SPECIALIST procedure are i n the results section. BASIC METABOLIC PANEL Routine 12/17/2019 5:11 AM Results for this (7) RISK CONTROL SPECIALIST procedure are i n the results section. POCT-GLUCOSE METER Routine 12/16/2019 9:16 PM Re sults for this RISK CONTROL SPECIALIST procedure are i n the results section. POCT-GLUCOSE METER Routine 12/16/2019 4:18 PM Re sults for this RISK CONTROL SPECIALIST procedure are i n the results section. POCT-GLUCOSE METER Routine 12/16/2019 12:02 PM Re sults for this RISK CONTROL SPECIALIST procedure are i n the results section. POCT-GLUCOSE METER Routine 12/16/2019 7:39 AM Re sults for this RISK CONTROL SPECIALIST procedure are i n the results section. CBC (HEMOGRAM ONLY) Routine 12/16/2019 5:13 AM R esults for this RISK CONTROL SPECIALIST procedure are i n the results section. APTT Routine 12/16/2019 5:13 AM Results for this RISK CONTROL SPECIALIST procedure are i n the results section. PHOSPHORUS Routine 12/16/2019 5:13 AM Results for this RISK CONTROL SPECIALIST procedure are i n the results section. MAGNESIUM Routine 12/16/2019 5:13 AM Results for this RISK CONTROL SPECIALIST procedure are i n the results section. BASIC METABOLIC PANEL Routine 12/16/2019 5:13 AM Results for this (7) RISK CONTROL SPECIALIST procedure are i n the results section. POCT-GLUCOSE METER Routine 12/15/2019 9:20 PM Re sults for this RISK CONTROL SPECIALIST procedure are i n the results section. APTT Routine 12/15/2019 4:14 AM Results for this RISK CONTROL SPECIALIST procedure are i n the results section. PHOSPHORUS STAT 12/15/2019 4:10 AM Results for this RISK CONTROL SPECIALIST procedure are i n the results section. MAGNESIUM STAT 12/15/2019 4:10 AM Results for this RISK CONTROL SPECIALIST procedure are i n the results section. BASIC METABOLIC PANEL STAT 12/15/2019 4:10 AM Results for this (7) RISK CONTROL SPECIALIST procedure are i n the results section. CBC (HEMOGRAM ONLY) Routine 12/15/2019 4:09 AM R esults for this RISK CONTROL SPECIALIST procedure are i n the results section. PREPARE RBC STAT 12/14/2019 11:54 PM Results for this RISK CONTROL SPECIALIST procedure are i n the results section. POCT-GLUCOSE METER Routine 12/14/2019 10:34 PM Re sults for this RISK CONTROL SPECIALIST procedure are i n the results section. APTT Routine 12/14/2019 9:01 PM Results for this RISK CONTROL SPECIALIST procedure are i n the results section. POCT-GLUCOSE METER Routine 12/14/2019 6:05 PM Re sults for this RISK CONTROL SPECIALIST procedure are i n the results section. APTT Routine 12/14/2019 2:42 PM Results for this RISK CONTROL SPECIALIST procedure are i n the results section. MAGNESIUM STAT 12/14/2019 1:58 PM Results for this RISK CONTROL SPECIALIST procedure are i n the results section. BASIC METABOLIC PANEL STAT 12/14/2019 1:58 PM Results for this (7) RISK CONTROL SPECIALIST procedure are i n the results section. POCT-GLUCOSE METER Routine 12/14/2019 1:47 PM Re sults for this RISK CONTROL SPECIALIST procedure are i n the results section. POCT-GLUCOSE METER Routine 12/14/2019 9:00 AM Re sults for this RISK CONTROL SPECIALIST procedure are i n the results section. APTT Routine 12/14/2019 7:52 AM Results for this RISK CONTROL SPECIALIST procedure are i n the results section. XR CHEST 1 VIEW STAT 12/14/2019 7:50 AM Resul ts for this PORTABLE/BEDSIDE RISK CONTROL SPECIALIST procedure a re in the results section. APTT Routine 12/14/2019 5:07 AM Results for this RISK CONTROL SPECIALIST procedure are i n the results section. BLOOD GAS, ARTERIAL Routine 12/14/2019 5:07 AM R esults for this RISK CONTROL SPECIALIST procedure are i n the results section. PHOSPHORUS STAT 12/14/2019 3:28 AM Results for this RISK CONTROL SPECIALIST procedure are i n the results section. MAGNESIUM STAT 12/14/2019 3:28 AM Results for this RISK CONTROL SPECIALIST procedure are i n the results section. BASIC METABOLIC PANEL STAT 12/14/2019 3:28 AM Results for this (7) RISK CONTROL SPECIALIST procedure are i n the results section. CBC (HEMOGRAM ONLY) Routine 12/14/2019 3:28 AM R esults for this RISK CONTROL SPECIALIST procedure are i n the results section. POCT-GLUCOSE METER Routine 12/13/2019 11:24 PM Re sults for this RISK CONTROL SPECIALIST procedure are i n the results section. XR CHEST 1 VIEW STAT 12/13/2019 11:20 PM Resul ts for this PORTABLE/BEDSIDE RISK CONTROL SPECIALIST procedure a re in the results section. CALCIUM, IONIZED Routine 12/13/2019 11:12 PM Resu lts for this RISK CONTROL SPECIALIST procedure are i n the results section. BLOOD GAS, ARTERIAL Routine 12/13/2019 11:12 PM R esults for this RISK CONTROL SPECIALIST procedure are i n the results section. MAGNESIUM Routine 12/13/2019 11:10 PM Results for this RISK CONTROL SPECIALIST procedure are i n the results section. PHOSPHORUS Routine 12/13/2019 11:10 PM Results for this RISK CONTROL SPECIALIST procedure are i n the results section. PROTHROMBIN TIME/INR Routine 12/13/2019 11:10 PM Results for this RISK CONTROL SPECIALIST procedure are i n the results section. APTT Routine 12/13/2019 11:10 PM Results for this RISK CONTROL SPECIALIST procedure are i n the results section. BASIC METABOLIC PANEL Routine 12/13/2019 11:10 PM Results for this (7) RISK CONTROL SPECIALIST procedure are i n the results section. CBC (HEMOGRAM ONLY) Routine 12/13/2019 11:10 PM R esults for this RISK CONTROL SPECIALIST procedure are i n the results section. POCT-ACT Routine 12/13/2019 9:38 PM Results for this RISK CONTROL SPECIALIST procedure are i n the results section. POCT-ACT Routine 12/13/2019 8:51 PM Results for this RISK CONTROL SPECIALIST procedure are i n the results section. HGB/HCT (H&H) - STAT STAT 12/13/2019 8:48 PM Results for this LAB RISK CONTROL SPECIALIST procedure are i n the results section. GLUCOSE-STAT LAB STAT 12/13/2019 8:48 PM Resu lts for this RISK CONTROL SPECIALIST procedure are i n the results section. POTASSIUM-STAT LAB STAT 12/13/2019 8:48 PM Re sults for this RISK CONTROL SPECIALIST procedure are i n the results section. SODIUM NA-STAT LAB STAT 12/13/2019 8:48 PM Re sults for this RISK CONTROL SPECIALIST procedure are i n the results section. BLOOD GAS, ARTERIAL STAT 12/13/2019 8:48 PM R esults for this RISK CONTROL SPECIALIST procedure are i n the results section. CALCIUM, IONIZED STAT 12/13/2019 8:48 PM Resu lts for this RISK CONTROL SPECIALIST procedure are i n the results section. BLOOD GAS, ARTERIAL STAT 12/13/2019 8:48 PM R esults for this RISK CONTROL SPECIALIST procedure are i n the results section. POCT-ACT Routine 12/13/2019 8:17 PM Results for this RISK CONTROL SPECIALIST procedure are i n the results section. TRANSFUSE Routine 12/13/2019 7:48 PM LEUKO-REDUCED RED RISK CONTROL SPECIALIST BLOOD CELLS TRANSFUSE Routine 12/13/2019 7:46 PM LEUKO-REDUCED RED RISK CONTROL SPECIALIST BLOOD CELLS POCT-ACT Routine 12/13/2019 7:37 PM Results for this RISK CONTROL SPECIALIST procedure are i n the results section. HGB/HCT (H&H) - STAT STAT 12/13/2019 7:31 PM Results for this LAB RISK CONTROL SPECIALIST procedure are i n the results section. GLUCOSE-STAT LAB STAT 12/13/2019 7:31 PM Resu lts for this RISK CONTROL SPECIALIST procedure are i n the results section. POTASSIUM-STAT LAB STAT 12/13/2019 7:31 PM Re sults for this RISK CONTROL SPECIALIST procedure are i n the results section. SODIUM NA-STAT LAB STAT 12/13/2019 7:31 PM Re sults for this RISK CONTROL SPECIALIST procedure are i n the results section. BLOOD GAS, ARTERIAL STAT 12/13/2019 7:31 PM R esults for this RISK CONTROL SPECIALIST procedure are i n the results section. CALCIUM, IONIZED STAT 12/13/2019 7:31 PM Resu lts for this RISK CONTROL SPECIALIST procedure are i n the results section. BLOOD GAS, ARTERIAL STAT 12/13/2019 7:31 PM R esults for this RISK CONTROL SPECIALIST procedure are i n the results section. POCT-ACT Routine 12/13/2019 6:54 PM Results for this RISK CONTROL SPECIALIST procedure are i n the results section. HGB/HCT (H&H) - STAT STAT 12/13/2019 6:18 PM Results for this LAB RISK CONTROL SPECIALIST procedure are i n the results section. GLUCOSE-STAT LAB STAT 12/13/2019 6:18 PM Resu lts for this RISK CONTROL SPECIALIST procedure are i n the results section. POTASSIUM-STAT LAB STAT 12/13/2019 6:18 PM Re sults for this RISK CONTROL SPECIALIST procedure are i n the results section. SODIUM NA-STAT LAB STAT 12/13/2019 6:18 PM Re sults for this RISK CONTROL SPECIALIST procedure are i n the results section. BLOOD GAS, ARTERIAL STAT 12/13/2019 6:18 PM R esults for this RISK CONTROL SPECIALIST procedure are i n the results section. LACTIC ACID, ARTERIAL STAT 12/13/2019 6:18 PM Results for this RISK CONTROL SPECIALIST procedure are i n the results section. CALCIUM, IONIZED STAT 12/13/2019 6:18 PM Resu lts for this RISK CONTROL SPECIALIST procedure are i n the results section. BLOOD GAS, ARTERIAL STAT 12/13/2019 6:18 PM R esults for this RISK CONTROL SPECIALIST procedure are i n the results section. THROMBECTOMY-LOWER 12/13/2019 5:10 PM Ischemia RISK CONTROL SPECIALIST ANGIOGRAM-LOWER 12/13/2019 5:10 PM Ischemia EXTREMITY RISK CONTROL SPECIALIST HC ARTERIAL(RAFIQ W Routine 12/13/2019 12:51 PM Res ults for this DOPPLER)ONLY RISK CONTROL SPECIALIST procedure are i n the results section. HC ARTERIAL DOPPLER STAT 12/13/2019 12:51 PM R esults for this LEGS WINTER RISK CONTROL SPECIALIST procedure are i n the results section. URINALYSIS W/ REFLEX Routine 12/13/2019 11:33 AM Results for this URINE CULTURE RISK CONTROL SPECIALIST procedure are in the results section. URINE CULTURE Routine 12/13/2019 11:33 AM Results for this RISK CONTROL SPECIALIST procedure are i n the results section. CBC W/PLT COUNT & AUTO STAT 12/13/2019 11:31 AM Results for this DIFFERENTIAL RISK CONTROL SPECIALIST procedure are i n the results section. APTT STAT 12/13/2019 11:31 AM Results for this RISK CONTROL SPECIALIST procedure are i n the results section. PROTHROMBIN TIME/INR STAT 12/13/2019 11:31 AM Results for this RISK CONTROL SPECIALIST procedure are i n the results section. PHOSPHORUS STAT 12/13/2019 11:31 AM Results for this RISK CONTROL SPECIALIST procedure are i n the results section. MAGNESIUM STAT 12/13/2019 11:31 AM Results for this RISK CONTROL SPECIALIST procedure are i n the results section. CBC W/PLT COUNT & AUTO STAT 12/13/2019 11:31 AM Results for this DIFFERENTIAL RISK CONTROL SPECIALIST procedure are i n the results section. BASIC METABOLIC PANEL STAT 12/13/2019 11:31 AM Results for this (7) RISK CONTROL SPECIALIST procedure are i n the results section. XR CHEST 1 VIEW STAT 12/13/2019 11:20 AM Resul ts for this PORTABLE/BEDSIDE RISK CONTROL SPECIALIST procedure a re in the results section. POCT-ACT Routine 12/13/2019 10:38 AM Results for this RISK CONTROL SPECIALIST procedure are i n the results section. POCT-ACT Routine 12/13/2019 9:24 AM Results for this RISK CONTROL SPECIALIST procedure are i n the results section. POCT-ACT Routine 12/13/2019 9:10 AM Results for this RISK CONTROL SPECIALIST procedure are i n the results section. HGB/HCT (H&H) - STAT STAT 12/13/2019 8:13 AM Results for this LAB RISK CONTROL SPECIALIST procedure are i n the results section. GLUCOSE-STAT LAB STAT 12/13/2019 8:13 AM Resu lts for this RISK CONTROL SPECIALIST procedure are i n the results section. POTASSIUM-STAT LAB STAT 12/13/2019 8:13 AM Re sults for this RISK CONTROL SPECIALIST procedure are i n the results section. SODIUM NA-STAT LAB STAT 12/13/2019 8:13 AM Re sults for this RISK CONTROL SPECIALIST procedure are i n the results section. BLOOD GAS, ARTERIAL STAT 12/13/2019 8:13 AM R esults for this RISK CONTROL SPECIALIST procedure are i n the results section. CALCIUM, IONIZED STAT 12/13/2019 8:13 AM Resu lts for this RISK CONTROL SPECIALIST procedure are i n the results section. BLOOD GAS, ARTERIAL STAT 12/13/2019 8:13 AM R esults for this RISK CONTROL SPECIALIST procedure are i n the results section. REPAIR,EVAR-ENDOVASCUL 12/13/2019 7:03 AM Ruptured ab dominal AR AORTIC ANEURYSM RISK CONTROL SPECIALIST aortic aneurysm (AAA) (HCC) Special Needs (ICU BED NEEDED) (CELLAVISION MANUAL STAT 12/13/2019 4:22 AM R esults for this DIFF) RISK CONTROL SPECIALIST procedure are i n the results section. CBC WITH PLATELET COUNT STAT 12/13/2019 4:22 AM Results for this + MANUAL DIFF RISK CONTROL SPECIALIST procedure are in the results section. PHOSPHORUS STAT 12/13/2019 4:22 AM Results for this RISK CONTROL SPECIALIST procedure are i n the results section. MAGNESIUM STAT 12/13/2019 4:22 AM Results for this RISK CONTROL SPECIALIST procedure are i n the results section. CBC W/PLT+MANUAL DIFF STAT 12/13/2019 4:22 AM Results for this RISK CONTROL SPECIALIST procedure are i n the results section. HEMOGLOBIN A1C Routine 12/13/2019 4:22 AM Result s for this RISK CONTROL SPECIALIST procedure are i n the results section. BASIC METABOLIC PANEL STAT 12/13/2019 4:22 AM Results for this (7) RISK CONTROL SPECIALIST procedure are i n the results section. PREPARE RBC Routine 12/12/2019 10:21 PM Results for this RISK CONTROL SPECIALIST procedure are i n the results section. POCT-GLUCOSE METER Routine 12/12/2019 9:26 PM Re sults for this RISK CONTROL SPECIALIST procedure are i n the results section. PROTHROMBIN TIME/INR STAT 12/12/2019 6:32 PM Results for this RISK CONTROL SPECIALIST procedure are i n the results section. POCT-GLUCOSE METER Routine 12/12/2019 4:40 PM Re sults for this RISK CONTROL SPECIALIST procedure are i n the results section. BASIC METABOLIC PANEL Routine 12/12/2019 4:27 PM Results for this (7) RISK CONTROL SPECIALIST procedure are i n the results section. VASCULAR DIAGRAM -SCAN 12/12/2019 Resul ts for this procedure are i n the results section. ANTIBODY IDENTIFICATION STAT 12/11/2019 4:23 PM Aneurysm o f Results for this RISK CONTROL SPECIALIST infrarenal procedure are i n abdominal aorta the results (HCC) section. HC CAROTID DOPPLER WINTER Routine 12/11/2019 1:52 PM Aneurysm of Results for this RISK CONTROL SPECIALIST infrarenal procedure are i n abdominal aorta the results (HCC) section. XR CHEST 2 VIEWS Routine 12/11/2019 12:33 PM Aneurysm of Resu lts for this RISK CONTROL SPECIALIST infrarenal procedure are i n abdominal aorta the results (HCC) section. ECG 12-LEAD Routine 12/11/2019 12:01 PM RISK CONTROL SPECIALIST Procedure Note - Interface, External Ris In - 12/11/2019 1:28 PM RISK CONTROL SPECIALIST Ventricular Rate 59 BPM Atrial Rate 59 BPM P-R Interval 230 ms QRS Duration 88 ms Q-T Interval 490 ms QTC Calculation(Bazett) 485 ms P [place] 60 degrees R [place] 27 degrees T [place] 71 degrees Sinus bradycardia with 1st d egree A-V block Prolonged QT Abnormal ECG When compared with ECG of 15:05, No significant change was fo und ECG 12-LEAD Routine 12/11/2019 12:01 PM Aneurysm of Results for this RISK CONTROL SPECIALIST infrarenal procedure are i n abdominal aorta the results (HCC) section. SARS-COV2/RT-PCR ([facility] Routine 12/11/2019 11:49 AM Pre-op test ing Results for this & REF LABS) RISK CONTROL SPECIALIST procedure are i n the results section. (CELLAVISION MANUAL Routine 12/11/2019 10:38 AM Aneurysm of R esults for this DIFF) RISK CONTROL SPECIALIST infrarenal procedure are i n abdominal aorta the results (HCC) section. CBC W/PLT COUNT & AUTO Routine 12/11/2019 10:38 AM Aneurysm of Results for this DIFFERENTIAL RISK CONTROL SPECIALIST infrarenal procedure are i n abdominal aorta the results (HCC) section. DIRECT AHG STAT 12/11/2019 10:38 AM Aneurysm of Results for this (GARTH)/DIRECT LORETA RISK CONTROL SPECIALIST infrarenal procedur e are in abdominal aorta the results (HCC) section. TYPE AND SCREEN, STAT 12/11/2019 10:38 AM Aneurysm of Resu lts for this AUTOMATED RISK CONTROL SPECIALIST infrarenal procedure are i n abdominal aorta the results (HCC) section. HEMOGLOBIN A1C Routine 12/11/2019 10:38 AM Aneurysm of Result s for this RISK CONTROL SPECIALIST infrarenal procedure are i n abdominal aorta the results (HCC) section. Pre-op testing LACTATE DEHYDROGENASE Routine 12/11/2019 10:38 AM Aneurysm of Results for this (LDH) RISK CONTROL SPECIALIST infrarenal procedure are i n abdominal aorta the results (HCC) section. URINALYSIS W/ Routine 12/11/2019 10:38 AM Aneurysm of Results for this MICROSCOPIC RISK CONTROL SPECIALIST infrarenal procedure are i n abdominal aorta the results (HCC) section. HEPATITIS C ANTIBODY Routine 12/11/2019 10:38 AM Aneurysm of Results for this RISK CONTROL SPECIALIST infrarenal procedure are i n abdominal aorta the results (HCC) section. LIPASE Routine 12/11/2019 10:38 AM Aneurysm of Results for this RISK CONTROL SPECIALIST infrarenal procedure are i n abdominal aorta the results (HCC) section. AMYLASE Routine 12/11/2019 10:38 AM Aneurysm of Results for this RISK CONTROL SPECIALIST infrarenal procedure are i n abdominal aorta the results (HCC) section. HEPATITIS B PANEL Routine 12/11/2019 10:38 AM Aneurysm of Res ults for this RISK CONTROL SPECIALIST infrarenal procedure are i n abdominal aorta the results (HCC) section. RETICULOCYTE COUNT Routine 12/11/2019 10:38 AM Aneurysm of Re sults for this RISK CONTROL SPECIALIST infrarenal procedure are i n abdominal aorta the results (HCC) section. APTT Routine 12/11/2019 10:38 AM Aneurysm of Results for this RISK CONTROL SPECIALIST infrarenal procedure are i n abdominal aorta the results (HCC) section. PROTHROMBIN TIME/INR Routine 12/11/2019 10:38 AM Aneurysm of Results for this RISK CONTROL SPECIALIST infrarenal procedure are i n abdominal aorta the results (HCC) section. PROTEIN, TOTAL Routine 12/11/2019 10:38 AM Aneurysm of Result s for this RISK CONTROL SPECIALIST infrarenal procedure are i n abdominal aorta the results (HCC) section. ALT (SGPT) Routine 12/11/2019 10:38 AM Aneurysm of Results for this RISK CONTROL SPECIALIST infrarenal procedure are i n abdominal aorta the results (HCC) section. AST (SGOT) Routine 12/11/2019 10:38 AM Aneurysm of Results for this RISK CONTROL SPECIALIST infrarenal procedure are i n abdominal aorta the results (HCC) section. BILIRUBIN, DIRECT Routine 12/11/2019 10:38 AM Aneurysm of Res ults for this RISK CONTROL SPECIALIST infrarenal procedure are i n abdominal aorta the results (HCC) section. BILIRUBIN, ADULT TOTAL Routine 12/11/2019 10:38 AM Aneurysm of Results for this RISK CONTROL SPECIALIST infrarenal procedure are i n abdominal aorta the results (HCC) section. ALKALINE PHOSPHATASE Routine 12/11/2019 10:38 AM Aneurysm of Results for this RISK CONTROL SPECIALIST infrarenal procedure are i n abdominal aorta the results (HCC) section. ALBUMIN Routine 12/11/2019 10:38 AM Aneurysm of Results for this RISK CONTROL SPECIALIST infrarenal procedure are i n abdominal aorta the results (HCC) section. HC LAB HIV-1 AG Routine 12/11/2019 10:38 AM Aneurysm of Resul ts for this W/HIV-1&2 AB RISK CONTROL SPECIALIST infrarenal procedure are i n abdominal aorta the results (HCC) section. BASIC METABOLIC PANEL Routine 12/11/2019 10:38 AM Aneurysm of Results for this (7) RISK CONTROL SPECIALIST infrarenal procedure are i n abdominal aorta the results (HCC) section. CBC W/PLT COUNT & AUTO Routine 12/11/2019 10:38 AM Aneurysm of Results for this DIFFERENTIAL RISK CONTROL SPECIALIST infrarenal procedure are i n abdominal aorta [...] POC ACTIVATED CLOTTING TIME (2020 11:24 AM RISK CONTROL SPECIALIST)Only the most recent of9 resultswithin the time period is included. Activated Clotting 252 sec [facility] Comment: [facility] : 74-137 seconds, Baseline CENTER : TESTED AT [address], [address] : Ssis Etl Developer/Scrubbing Machine Operator ID = [id number] for CLAU GREGG Specimen Blood Performing Organization Address City/State/Zipcode Phone Number [address] [phone] CENTER ECG 12 lead (2020 10:50 AM RISK CONTROL SPECIALIST)Only the most recent of3 resultswithin the time period is included. Specimen Narrative Performed At Ventricular Rate 51 BPM GE MUSE Atrial Rate 166 BPM QRS Duration 92 ms Q-T Interval 524 ms QTC Calculation(Bazett) 482 ms P [place] 41 degrees R [place] -6 degrees T [place] 56 degrees Sinus bradycardia Cannot rule out Anterior infarct , age u ndetermined Prolonged QT Abnormal ECG 18 DEC 2019 Sinus bradycardia replaced AVNRT ST no longer depressed precordial leads QT has shortened Confirmed by MD MUSHTAQ, RADHA ([id number]) on 2020 1:28:53 PM Procedure Note Interface, External Ris In - 2020 1:29 PM RISK CONTROL SPECIALIST Ventricular Rate 51 BPM Atrial Rate 166 BPM QRS Duration 92 ms Q-T Interval 524 ms QTC Calculation(Bazett) 482 ms P [place] 41 degrees R [place] -6 degrees T [place] 56 degrees Sinus bradycardia Cannot rule out Anterior infarct , age u ndetermined Prolonged QT Abnormal ECG 18 DEC 2019 Sinus bradycardia replaced AVNRT ST no longer depressed precordial leads QT has shortened Confirmed by MD MUSHTAQ, [facility] ([id number]) on 2020 1:28:53 PM Performing Organization Address City/State/Zipcode Phone Number [facility] CARDIAC CATH REPORT - SCAN (2020) Narrative Performed At This result has an attachment that is no t available. Ordered by an unspecified provider. SARS-CoV2/RT-PCR ([facility]) (01/03/2020 10:25 AM RISK CONTROL SPECIALIST)Only the most recent of3 resultswithin the time period is included. SARS-COV2/RT-PCR Negative Not Detected, [facility]' Negative, See [facility] external report CENTER for linked test SARS-COV-2 [facility] PERFORMING LAB [facility] Specimen Other - Nasopharyngeal wall structure (b ludwig structure) Narrative Performed At Negative result for this test determines that [facility] SARS-CoV-2 RNA was not present in the [...] the Act. Fact Sheet for Healthcare Providers: https://www.Imsys/sites/default/files/pro duct/documents/Fact_Sheet_HC_Providers_Lyra_SA RS-CoV-2.pdf Fact Sheet for Healthcare Patients: https://www.Ims[employer]/sites/default/files/pro duct/documents/Fact_Sheet_Patients_Lyra_SARS-C oV-2.pdf Performing Laboratory: [address] [address] Performing Organization Address City/[facility]/Zipcode Phone Number [address] [phone] STANDISH POC-Glucose meter (12/19/2019 7:18 AM RISK CONTROL SPECIALIST)Only the most recent of21 results within the time period is included. Pathologist [facility] POC-Glucose Meter 121 (H) 70 - 110 mg/dL [facility] Comment: [facility] : TESTED AT [address], [address] CENTER : Ssis Etl Developer/Scrubbing Machine Operator ID = [id number] for YESSI VERGARA Specimen Blood Performing Organization Address [facility]/Zipcode Phone Number [address] [phone] STANDISH CBC (hemogram only) (12/19/2019 4:49 AM RISK CONTROL SPECIALIST)Only the most recent of7 results within the time period is included. Pathologist Sig nature WBC 48.4 (H) 3.5 - 10.5 K/L [facility] RBC 2.60 (L) 4.63 - 6.08 M/L [facility] Hemoglobin 8.4 (L) 13.7 - 17.5 GM/DL [facility] Hematocrit 27.2 (L) 40.1 - 51.0 % [facility] MCV 104.6 (H) 79.0 - 92.2 fL [facility] MCH 32.3 (H) 25.7 - 32.2 pg [facility] MCHC 30.9 (L) 32.3 - 36.5 GM/DL [facility] RDW 16.7 (H) 11.6 - 14.4 % [facility] Platelets 139 (L) 150 - 450 K/CU MM [facility] MPV 10.6 9.4 - 12.4 fL [facility] nRBC 0 0 - 0 /100 WBC [facility] Specimen Blood Performing Organization Address [facility] Corporation[facility]t Phone Number [address] [address] CENTER Phosphorus (12/19/2019 4:49 AM RISK CONTROL SPECIALIST)Only the most recent of9 resultswithin the time period is included. Pathologist Sig nature Phosphorus 2.9 2.3 - 4.7 mg/dL [facility] Specimen Blood Narrative Performed At Ssis Etl Developer [place] - [facility] Performing Organization Address [facility] Phone Number [address] [address] CENTER Magnesium (12/19/2019 4:49 AM RISK CONTROL SPECIALIST)Only the most recent of10 resultswithin the time period is included. Pathologist Sig nature Magnesium 2.1 1.6 - 2.6 mg/dL [facility] Specimen Blood Narrative Performed At Ssis Etl Developer [facility] Performing Organization Address [facility] Phone Number [address] [address] STANDISH Basic Metabolic Panel (12/19/2019 4:49 AM RISK CONTROL SPECIALIST)Only the most recent of12 results within the time period is included. Sodium 140 136 - 145 meq/L [facility] Potassium 3.7 3.5 - 5.1 meq/L [facility] Chloride 109 (H) 98 - 107 meq/L [facility] CO2 25 22 - 29 meq/L [facility] BUN 20 7 - 21 mg/dL [facility] Creatinine 1.29 (H) 0.57 - 1.25 [facility] mg/dL [facility] Glucose 130 (H) 70 - 105 mg/dL [facility] Calcium 8.6 8.4 - 10.2 [facility] mg/dL [facility] EGFR 54Comment: ESTIMATED mL/min/1.[address] [facility] GFR IS NOT m [facility] ACCURATE STANDISH CREATININE CLEARANCE IN PREDICTING GLOMERULAR FILTRATION RATE. ESTIMATED GFR IS NOT APPLICABLE FOR DIALYSIS PATIENTS. Specimen Blood Narrative Performed At Ssis Etl Developer DEVIKA - MARIELA M [facility] Performing Organization Address City/[facility]/Zipcode Phone Number [facility] [address] [place] [address] CENTER aPTT (12/16/2019 5:13 AM RISK CONTROL SPECIALIST)Only the most recent of9 resultswithin the time period is included. Pathologist Sig nature PTT 39.6 (H) 22.5 - 36.0 seconds [facility] Specimen Blood Performing Organization Address City/[facility]/Zipcode Phone Number [facility] [address] [place] [address] CENTER Prepare RBC (12/14/2019 11:54 PM RISK CONTROL SPECIALIST)Only the most recent of2 resultswithin the time period is included. Pathologist Sig nature Unit ABO O Pos [place]AF[place]ACE [place] UNIT NUMBER [id number] [place]AF[place]ACE [place] Status TX_TIMEINCHART [place] Blood Bank Product RED BLOOD CELLS [place] PRODUCT CODE [id number] SAFETRACE TX Unit ABO O Pos SAFETRACE TX UNIT NUMBER [id number] SAFETRACE TX Status WORK IN PROGRESS SAFETRACE TX Blood Bank Product RED BLOOD CELLS SAFETRACE TX PRODUCT CODE [id number] SAFETRACE TX Unit ABO A Pos SAFETRACE TX UNIT NUMBER [id number] SAFETRACE TX Status TX_TIMEINCHART SAFETRACE TX Blood Bank Product RED BLOOD CELLS SAFET[place]ACE TX PRODUCT CODE [id number] SAFETRACE TX Unit ABO A Pos SAFETRACE TX UNIT NUMBER [id number] SAFETRACE TX Status WORK IN PROGRESS SAFETRACE TX Blood Bank Product RED BLOOD CELLS SAFETRACE TX PRODUCT CODE [id number] SAFETRACE TX CROSSMATCH INCOMPATIBLE SAFETRACE TX CROSSMATCH INCOMPATIBLE SAFETRACE TX CROSSMATCH INCOMPATIBLE SAFETRACE TX CROSSMATCH INCOMPATIBLE [place]ACE TX Performing Organization Address City/State/Zipcode Phone Number SAFETRACE [place] XR chest 1 view portable / bedside (12/14/2019 7:50 AM RISK CONTROL SPECIALIST)Only the most recent of3 resultswithin the time period is included. Specimen Narrative Performed At FINAL REPORT GE [facility] Chest, one view. HISTORY: post-extubation COMPARISON: [...] Report Verified Date/Time: 12/14/2019 08:16:23 Reading Location: [facility] C013Y CT Body R eading Room Procedure Note Interface, External Ris In - 12/14/2019 8:18 AM RISK CONTROL SPECIALIST FINAL REPORT Chest, one view. HISTORY: post-extubation [...] Verified Date/Time: 12/14/2019 0 8:16:23 Reading Location: [facility] B1 C013Y CT Body R eading Room Performing Organization Address City/[facility] Corporationcode Phone Number [facility] Blood gas, arterial (12/14/2019 5:07 AM RISK CONTROL SPECIALIST)Only the most recent of6 results within the time period is included. Pathologist Sig nature pH, Arterial 7.39 7.35 - 7.45 [facility] pCO2, Arterial 36 35 - 45 mm Hg [facility] pO2, Arterial 112 (H) 80 - 90 mm Hg [facility] O2 Sat, Arterial 97.8 (H) 96.0 - 97.0 % [facility] HCO3, Arterial 21 21 - 29 mmol/L [facility] Base Excess, Arterial -3.4 (L) -2.0 - 3.0 [facility] mmol/L [facility] Patient Temperature 38.4 [facility] FIO2 60.0 [facility] Specimen Blood, Arterial Performing Organization Address City/[facility] Corporationcovt Phone Number [address] [address] CENTER Calcium, Ionized (12/13/2019 11:12 PM RISK CONTROL SPECIALIST)Only the most recent of5 resultswithin the time period is included. Pathologist Sig nature Calcium, Ion 1.20 1.12 - 1.27 mmol/L [facility] pH, Blood 7.31 [facility] Specimen Blood Performing Organization Address City/[facility] Corporationcode Phone Number [address] [address] CENTER Prothrombin time/INR (12/13/2019 11:10 PM RISK CONTROL SPECIALIST)Only the most recent of4 results within the time period is included. Pathologist Sig nature Protime 17.6 (H) 11.9 - 14.2 seconds [facility] INR 1.49 <=5.90 [facility] Specimen Blood Narrative Performed At Effective 07/04/2018: PT Reference Range [facility] Change New: 11.9-14.2 Previous: 11.7-14.7 RECOMMENDED COUMADIN/WARFARIN INR THERAPY RANGES STANDARD DOSE: 2.0-3.0 Includes: PROPHYLAXIS for venous thrombosis, systemic embolization; TREATMENT for venous thrombosis and/or pulmonary embolus. HIGH RISK: Target INR is 2.5-3.5 for patients wiht mechanical heart valves. Performing Organization Address City/[facility] Corporation[facility]t Phone Number [address] [address] CENTER Potassium-Stat Lab (12/13/2019 8:48 PM RISK CONTROL SPECIALIST)Only the most recent of4 results within the time period is included. Pathologist Sig nature Potassium 4.0 3.6 - 5.5 meq/L [facility] Specimen Blood, Arterial Performing Organization Address City/[facility] Corporationcode Phone Number [address] [address] CENTER Sodium Na-Stat Lab (12/13/2019 8:48 PM RISK CONTROL SPECIALIST)Only the most recent of4 results within the time period is included. Pathologist Sig nature Sodium 138 136 - 145 meq/L [facility] Specimen Blood, Arterial Performing Organization Address [facility] Corporation[facility] Phone Number [address] [address] CENTER Glucose-Stat Lab (12/13/2019 8:48 PM RISK CONTROL SPECIALIST)Only the most recent of4 resultswithin the time period is included. Pathologist Sig [facility] Glucose 138 (H) 70 - 110 mg/dL [facility] Specimen Blood, Arterial Performing Organization Address [facility]/Zipcode Phone Number [address] [address] STANDISH HGB/HCT (H&H)-Stat Lab (12/13/2019 8:48 PM RISK CONTROL SPECIALIST)Only the most recent of4 resultswithin the time period is included. Pathologist Sig [facility] Hemoglobin 10.1 (L) 13.0 - 16.8 GM/DL [facility] Hematocrit 30.0 (L) 40.0 - 50.0 % [facility] Specimen Blood, Arterial Performing Organization Address [facility] Corporationcode Phone Number [address] [address] STANDISH Transfuse Leuko-Red RBC (12/13/2019 7:48 PM RISK CONTROL SPECIALIST)Only the most recent of2 resultswithin the time period is included.Lactic Acid, Arterial (12/13/2019 6:18 PM RISK CONTROL SPECIALIST) Pathologist Sig [facility] Lactate, Art 0.7 0.5 - 2.2 mmol/L [facility] Specimen Blood, Arterial Narrative Performed At Ssis Etl Developer ID - BS [facility] Performing Organization Address [facility] Corporationcovt Phone Number [address] [address] CENTER RAFIQ's Only(Ankle/Brachial Index) (12/13/2019 12:51 PM RISK CONTROL SPECIALIST) Pathologist Sig [facility] Ejection Fraction [facility] Specimen Impressions Performed At Right Impression [facility] 1. The posterior tibial and dorsalis pedis [...] PV LAB - Lower Extremity Arterial Proced [facility] Demographics Patient Name DUKE TERRY Date of Study 12/13/2019 DEBORAH III Age 74 Visit Number [id number] Gender Male Accession Number [id number] Date of 1945 Referring delano payne Room Number 2C20 Physician Dental Detail Representative Cm Anderson RVS Interpreting Cyndi Pastor RVT [...] External Ris In - 12/14/2019 9:47 AM RISK CONTROL SPECIALIST PV LAB - Lower Extremity Arterial Procedure Demographics Patient Name DUKE TERRY ate of Study 12/13/2019 DEBORAH III A ge 74 Visit Number [id number] G willard Male Accession Number [id number] D ate of 1945 Referring delano juarez Number [id number] Physician Dental Detail Representative Cm Anderson RVS I nterpreting Cyndi Pastor [...] cm Performing Organization Address City/State/Zipcode Phone Number [facility] Arterial doppler legs bilateral (12/13/2019 12:51 PM RISK CONTROL SPECIALIST) [facility] nature Ejection Fraction [facility] Specimen Impressions Performed At Right Impression [facility] 1. The common femoral, profunda [...] + + + + + + !Prox CONFERENCE CENTER MANAGER ! !143 ! ! ! !0 ! ! ! + + + + + + + + + + !Mid CONFERENCE CENTER MANAGER ! !23.6 ! ! ! !0 ! ! ! + + + + + + + + + + !Dist CONFERENCE CENTER MANAGER ! !0 ! ! ! !0 ! [...] + + + + Narrative Performed At [facility] - Lower Extremity Arterial Duplex [facility] Demographics Patient Name DUKE TERRY Date of Study 12/13/2019 DEBORAH III Age 74 Visit Number [id number] Gender Male Accession Number [id number] Date of 1945 Referring Oneil Wick Room Number [id number] Physician Dental Detail Representative Cm Anderson RVS Interpreting Cyndi Pastor RVT [...] External Ris In - 12/14/2019 9:47 AM RISK CONTROL SPECIALIST PV LAB - Lower Extremity Arterial Duplex Demographics Patient Name DUKE TERRY ate of Study 12/13/2019 DEBORAH III A ge 74 Visit Number [id number] G willard Male Accession Number [id number] D ate of 1945 Referring Oneil juarez Number [id number] Physician Dental Detail Representative Cm Anderson RVS I nterpreting Cyndi Pastor [...] + + + + + + !Prox CONFERENCE CENTER MANAGER ! !143 ! ! ! !0 ! ! ! + + + + + + + + + + !Mid CONFERENCE CENTER MANAGER ! !23.6 ! ! ! !0 ! ! ! + + + + + + + + + + !Dist CONFERENCE CENTER MANAGER ! !0 ! ! ! !0 ! [...] + Reflex to Culture (12/13/2019 11:33 AM RISK CONTROL SPECIALIST) Color, UA Light Yellow [facility] Clarity, UA Cloudy [facility] Specific [place], 1.036 (H) 1.001 - 1.035 [facility] pH, UA 6.0 5.0 - 8.0 [facility] Protein, UA 30 mg/dL (A) Negative [facility] Glucose, UA Negative Negative [facility] Ketones, UA Negative Negative [facility] Bilirubin, UA Negative Negative [facility] Blood, UA Small (A) Negative [facility] Nitrite, UA Negative Negative [facility] Leukocytes, UA Large (A) Negative [facility] Urobilinogen, UA 0.2 0.2 - 1.0 mg/dL [facility] RBC, UA 18 /HPF [facility] WBC, UA 769 /HPF [facility] Bacteria, UA Rare [facility] Specimen Source [facility] Specimen Urine - Urinary catheter, device (physic al object) Narrative Performed At Ssis Etl Developer ID - [[email or web address]] [facility] Ssis Etl Developer ID - tech Performing Organization Address City/[facility]/Zipcode Phone Number [address] [address] CENTER Urine culture (12/13/2019 11:33 AM RISK CONTROL SPECIALIST) Pathologist Sig nature Result No growth [facility] Specimen Urine - Urinary catheter, device (physic al object) Performing Organization Address [facility]/Zipcode Phone Number [address] [address] STANDISH CBC with platelet count + automated diff (12/13/2019 11:31 AM RISK CONTROL SPECIALIST)Only the most recent of2 resultswithin the time period is included. Pathologist Sig nature WBC 67.7 (HH) 3.5 - 10.5 K/L [facility] RBC 2.72 (L) 4.63 - 6.08 M/L [facility] Hemoglobin 8.6 (L) 13.7 - 17.5 GM/DL [facility] Hematocrit 26.8 (L) 40.1 - 51.0 % [facility] MCV 98.5 (H) 79.0 - 92.2 fL [facility] MCH 31.6 25.7 - 32.2 pg [facility] MCHC 32.1 (L) 32.3 - 36.5 GM/DL [facility] RDW 17.5 (H) 11.6 - 14.4 % [facility] Platelets 155 150 - 450 K/CU MM [facility] MPV 10.4 9.4 - 12.4 fL [facility] nRBC 0 0 - 0 /100 WBC [facility] Specimen Blood Performing Organization Address City/State/Zipcode Phone Number [facility] [address] [place] [address] CENTER CBC with platelet count + manual diff (12/13/2019 4:22 AM RISK CONTROL SPECIALIST) Pathologist Sig nature WBC 64.8 (HH) 3.5 - 10.5 K/L [facility] RBC 2.93 (L) 4.63 - 6.08 M/L [facility] Hemoglobin 9.1 (L) 13.7 - 17.5 GM/DL [facility] Hematocrit 28.7 (L) 40.1 - 51.0 % [facility] MCV 98.0 (H) 79.0 - 92.2 fL [facility] MCH 31.1 25.7 - 32.2 pg [facility] MCHC 31.7 (L) 32.3 - 36.5 GM/DL [facility] RDW 17.4 (H) 11.6 - 14.4 % [facility] Platelets 172 150 - 450 K/CU MM [facility] MPV 10.1 9.4 - 12.4 fL [facility] nRBC 0 0 - 0 /100 WBC [facility] Specimen Blood Performing Organization Address City/State/Zipcode Phone Number [facility] [address] [place] [address] CENTER Manual Differential (12/13/2019 4:22 AM RISK CONTROL SPECIALIST)Only the most recent of2 results within the time period is included. Pathologist Sig nature % Neutros 4 % [facility] % Lymphs 92 % [facility] % Eos 2 % [facility] % [place] 1 (H) 0 - 0 % [facility] % Atypical Lymphs 1 (H) 0 - 0 % [facility] # Neutros 2.59 1.78 - 5.38 [facility] # Lymphs 59.62 (H) 1.32 - 3.57 [facility] # Eos 1.30 (H) 0.04 - 0.54 [facility] # Metamyelo 0.65 (H) 0.00 - 0.00 [facility] # Atypical Lymphs 0.65 (H) 0.00 - 0.00 [facility] Total Counted 100 [facility] RBC Morphology Normal [facility] WBC Morphology Normal [facility] Platelet Morphology Normal [facility] Specimen Blood Narrative Performed At Ssis Etl Developer ID - [id number] [facility] Performing Organization Address City/State/Zipcode Phone Number [facility] [address] [place], [place] [phone] CENTER Hemoglobin A1c (12/13/2019 4:22 AM RISK CONTROL SPECIALIST)Only the most recent of2 resultswithin the time period is included. Pathologist Sig nature Hemoglobin A1C 5.2 4.3 - 6.1 % [facility] Specimen Blood Narrative Performed At Please recheck [facility] Please recheck Performing Organization Address City/State/Zipcode Phone Number [facility] [address] [place] [address] CENTER VASCULAR DIAGRAM -SCAN (12/12/2019) Narrative Performed At This result has an attachment that is no t available. Ordered by an unspecified provider. Antibody identification (12/11/2019 4:23 PM RISK CONTROL SPECIALIST) ANTIBODY ID UNID IgG [place] (MAREK) WARM AUTO AB Antibody Consult SIGNED OUTComment: Warm [place] panagglutinin detected, ok to transfuse incompatible bloodElectronic Signature: Shmuel Woo M.D. Specimen Performing Organization Address City/[facility] Corporationcode Phone Number [place] Carotid doppler bilateral (12/11/2019 1:52 PM RISK CONTROL SPECIALIST) Pathologist Sig nature Ejection Fraction [facility] Specimen Impressions Performed At Right Impression [facility] 1. There is <50% diameter [...] Duplex Study [facility] Demographics Patient Name DUKE TERRY Date of Study 12/11/2019 DEBORAH III Age 74 Visit Number [id number] Gender Male Accession Number [id number] Date of 1945 Referring Casey Payne NP Room Number Physician Dental Detail Representative Peter Forbes T Interpreting Caryl Gao, Physician [...] External Ris In - 12/12/2019 7:51 AM RISK CONTROL SPECIALIST PV LAB - Carotid Duplex Study Demographics Patient Name DUKE TERRY D ate of Study 12/11/2019 DEBORAH III A ge 74 Visit Number [id number] G willard Male Accession Number [id number] D ate of 1945 Referring MUNA Ziegler Number Physician Dental Detail Representative Peter Forbes T I nterpreting Norman Pastor [...] 0.94. Performing Organization Address [facility] Corporationcode Phone Number [facility]ART[facility] MKCKESSON CPACS XR chest 2 views (12/11/2019 12:33 PM RISK CONTROL SPECIALIST) Specimen Narrative Performed At FINAL REPORT GE [...] Report Verified Date/Time: 12/11/2019 13:32:39 Reading Location: [employer] y Reading Room Procedure Note Interface, External Ris In - 12/11/2019 1:34 PM RISK CONTROL SPECIALIST FINAL REPORT PA and Lateral views of the chest dated 12/11/2019 Clinical information: pre-op Comment: Heart is normal in size. Thora cic aorta is ectatic. Pulmonary vasculature is unremarkable. L ungs are clear. No pulmonary infiltrate or pleural effusion is presen t. Impression: No active cardiopulmonary d isease. Signed: Vamsi Johns MD Report Verified Date/Time: 12/11/2019 1 3:32:39 Reading Location: [employer] y Reading Room Performing Organization Address [facility] Corporationcode Phone Number GE RIS Type and screen, automated (12/11/2019 10:38 AM RISK CONTROL SPECIALIST) ABO/RH AUTOMATED A POSITIVE [facility] (BEAKER) [facility] Ab Scrn POSITIVEComment: [address] Specimen Blood Performing Organization Address [facility]/Zipcode Phone Number [facility] [address] [place] [address] HIV-1 Antigen with HIV-1/2 Antibody (12/11/2019 10:38 AM RISK CONTROL SPECIALIST) Pathologist Sig nature HIV-1 Antigen with Nonreactive Nonreactive [facility] HIV 1&2 Antibody [facility] Specimen Blood Narrative Performed At Ssis Etl Developer ID - ADMIN [facility] Performing Organization Address City/[facility] Corporationcode Phone Number [address] [address] [place] Hepatitis B Panel (12/11/2019 10:38 AM RISK CONTROL SPECIALIST) Pathologist Sig nature Hep B Core Total Ab Nonreactive Nonreactive [facility] Hep B S Ab <8.0 <8.0 mIU/mL [facility] HBsAg Screen Nonreactive Nonreactive [facility] Specimen Blood Narrative Performed At Ssis Etl Developer ID - ADMIN [facility] Performing Organization Address [facility] Corporationcovt Phone Number [address] [address] [place] Hepatitis C antibody (12/11/2019 10:38 AM RISK CONTROL SPECIALIST) Pathologist Sig nature Hepatitis C Ab Nonreactive Nonreactive [facility] Specimen Blood Narrative Performed At Ssis Etl Developer ID - ADMIN [facility] Performing Organization Address [facility] Corporationcovt Phone Number [address] [address] [place] Urinalysis w/Microscopic (12/11/2019 10:38 AM RISK CONTROL SPECIALIST) Color, UA Light Yellow [facility] Clarity, UA Hazy [facility] Specific [place], 1.011 1.001 - 1.035 [facility] pH, UA 6.5 5.0 - 8.0 [facility] Protein, UA 10 mg/dL (A) Negative [facility] Glucose, UA 1000 mg/dL (A) Negative [facility] Ketones, UA Negative Negative [facility] Bilirubin, UA Negative Negative [facility] Blood, UA Small (A) Negative [facility] Nitrite, UA Negative Negative [facility] Leukocytes, UA Large (A) Negative [facility] Urobilinogen, UA 0.2 0.2 - 1.0 mg/dL [facility] RBC, UA 4 /HPF [facility] WBC, UA 152 /HPF [facility] Mucus Rare [facility] Squam Epithel, UA <1 /HPF [facility] Specimen Source [facility] Specimen Urine Narrative Performed At Ssis Etl Developer ID - [auto] [facility] Ssis Etl Developer ID - tech Performing Organization Address [facility] Corporationcovt Phone Number [address] [address] CENTER Reticulocyte count (12/11/2019 10:38 AM RISK CONTROL SPECIALIST) Pathologist Sig nature % Retic 3.3 (H) 0.5 - 1.8 % [facility] Specimen Blood Narrative Performed At Ssis Etl Developer ID - [id number] [facility] Performing Organization Address [facility] Corporationcovt Phone Number [address] [address] CENTER Direct [facility] (GARTH)/Direct Loreta (12/11/2019 10:38 AM RISK CONTROL SPECIALIST) Pathologist Sig nature Direct [facility]-IGG POSITIVEComment [facility] 4+ [facility] Direct [facility]-C3B, C3D POSITIVEComment [facility] : Micro+ [facility] Specimen Blood Performing Organization Address [facility] Corporationcode Phone Number [address] [address] ALT (SGPT) (12/11/2019 10:38 AM RISK CONTROL SPECIALIST) Pathologist Sig nature ALT 12 6 - 55 U/L [facility] Specimen Blood Narrative Performed At Ssis Etl Developer ID - ADMIN [facility] Performing Organization Address City/[facility] Corporationcode Phone Number [address] [address] CENTER AST (SGOT) (12/11/2019 10:38 AM RISK CONTROL SPECIALIST) Pathologist Sig nature AST 12 5 - 34 U/L [facility] Specimen Blood Narrative Performed At Ssis Etl Developer ID - ADMIN [facility] Performing Organization Address [facility] Corporationcovt Phone Number [address] [address] CENTER Protein, total (12/11/2019 10:38 AM RISK CONTROL SPECIALIST) Pathologist Sig [facility] Protein, Total 6.1 6.0 - 8.3 gm/dL [facility] Specimen Blood Narrative Performed At Ssis Etl Developer ID - ADMIN [facility] Performing Organization Address [facility] Corporationcode Phone Number [address] [address] CENTER Alkaline phosphatase (12/11/2019 10:38 AM RISK CONTROL SPECIALIST) Pathologist Sig nature Alkaline Phosphatase 93 40 - 150 U/L [facility] Specimen Blood Narrative Performed At Ssis Etl Developer ID - ADMIN [facility] Performing Organization Address City/[facility] Corporationcode Phone Number [address] [address] CENTER Lipase (12/11/2019 10:38 AM RISK CONTROL SPECIALIST) Pathologist Sig nature Lipase 22 8 - 78 U/L [facility] Specimen Blood Narrative Performed At Ssis Etl Developer ID - ADMIN [facility] Performing Organization Address City/State/Zipcode Phone Number [address] [address] CENTER Lactate dehydrogenase (LDH) (12/11/2019 10:38 AM RISK CONTROL SPECIALIST) Pathologist Sig nature LDH 177 125 - 220 U/L [facility] Specimen Blood Narrative Performed At Ssis Etl Developer ID - ADMIN [facility] Performing Organization Address [facility] Corporationcovt Phone Number [address] [address] CENTER Bilirubin, direct (12/11/2019 10:38 AM RISK CONTROL SPECIALIST) Pathologist Sig nature Bilirubin, Direct 0.4 0.1 - 0.5 mg/dL [facility] Specimen Blood Narrative Performed At Ssis Etl Developer ID - ADMIN [facility] Performing Organization Address [facility] Phone Number [address] [address] [place] Bilirubin, adult total (12/11/2019 10:38 AM RISK CONTROL SPECIALIST) Pathologist Sig nature Total Bilirubin 0.9 0.2 - 1.2 mg/dL [facility] Specimen Blood Narrative Performed At Ssis Etl Developer ID - ADMIN [facility] Performing Organization Address [facility] Phone Number [address] [address] CENTER Amylase (12/11/2019 10:38 AM RISK CONTROL SPECIALIST) Pathologist Sig nature Amylase 30 25 - 125 U/L [facility] Specimen Blood Narrative Performed At Ssis Etl Developer ID - ADMIN [facility] Performing Organization Address [facility] Corporationcovt Phone Number [address] [address] CENTER Albumin (12/11/2019 10:38 AM RISK CONTROL SPECIALIST) Pathologist Sig nature Albumin 4.1 3.5 - 5.0 g/dL [facility] Specimen Blood Narrative Performed At Ssis Etl Developer ID - ADMIN [facility] Performing Organization Address City/State/Zipcode Phone Number [facility] [address] [place] [address] CENTER Pulmonary Funct Lab Spirometry (11/21/2019 10:30 AM CDT) Narrative Performed At Bianca Ly, MARIBEL, DATA COORDINATOR 020 12:[address] [facility] PFT CHARTING REPORT Infection Control/Hand Hygiene procedure s followed throughout the encounter with patient: Yes Patient Identification Method: Patient n barion verified on armband, and Medical record on armband, Is the order complete?: Yes Account ID#: [id number] Patient Name: Duke Terry III Birthdate: 1945 [...] SpO2 95 [id number] 99 Study Date: 11/21/19 [facility] Time: 1050 ASSESSMENT History & Physical Mode [...] evaluation, multiplanar reconstruction, maximum intensity projections, and [employer] 3-D off-line postprocessing were performed on a dedic ated stand-alone workstation under the direct supervision of the inte [facility] physician. FINDINGS: Potential study limitations: [...] nonobstructing atherosclerotic changes throughout the abdominal aorta. Financial Institution President dimensions of the thoraci c aorta are [...] Report Verified Date/Time: 11/05/2019 14:08:15 Reading Location: [facility] 3 - B01.625 Procedure Note Interface, External [...] evaluation, multiplanar reconstruction, maximum intensity projections, and [employer] 3-D off-line postprocessing were performed on a [employer] ated stand-alone workstation under the direct supervision of the inte [facility] physician. FINDINGS: Potential study limitations: [...] nonobstructing atherosclerotic changes throughout the abdominal aorta. Financial Institution President dimensions of the thoraci c aorta are [...] Verified Date/Time: 11/05/2019 1 4:08:15 Reading Location: [address] B01.625 Performing Organization Address City/State/Zipcode Phone Number [employer] CT/CTA abdomen & pelvis - For AAA (11/05/2019 8:01 AM CDT) Specimen Narrative Performed At FINAL REPORT [employer] EXAM: CTA OF THE THORACOABDOMINAL AORTA AND [...] under the direct supervision of the inte [facility] physician. FINDINGS: Potential study limitations: [...] nonobstructing atherosclerotic changes throughout the abdominal aorta. [employer] President dimensions of the thoraci c aorta are [...] Report Verified Date/Time: 11/05/2019 14:08:15 Reading Location: [facility] 3 - B01.625 Procedure Note Interface, External [...] workstation under the direct supervision of the [facility] physician. FINDINGS: Potential study limitations: None. LINES/ [...] nonobstructing atherosclerotic changes throughout the abdominal aorta. Financial [employer] President dimensions of the thoraci c aorta are [...] Verified Date/Time: 11/05/2019 1 4:08:15 Reading Location: [place] [address] Performing Organization Address City/State/Zipcode Phone Number [facility] POC-Creatinine (11/05/2019 7:25 AM CDT) POC-Creatinine 1.7 (H)Comment: : 0.6 - 1.[address] [facility] [address] [facility] TESTED AT [facility] mg/dL [facility] [address] [place] [address]: Ssis Etl Developer/Technicia n ID = [id number] for IRVIN LOMBARDI POC-EGFR 40 mL/min/1.73M2 [facility] Specimen Blood Performing Organization Address City/[facility]/Zipcode Phone Number [facility] [address] [place], [place] [phone] CENTER after 01/30/2019 Insurance Payer Benefit Plan / Subscriber ID Effective Dates Phone Addre ss Type Group MEDICARE MEDICARE A B [id number] 2009-Presen Medicare [facility]/[place] [id number] 2019-Present Med[employer] SUPPLEMENT/[facility] Advance Directives For more information, please contact: [phone] Code Status Date Activated Date Inactivated Comments [...]
[2020-01-31 18:48] VITALS: BMI 25.8
--- OUTSIDE RECORDS SUMMARY | 2020-01-31 18:49 | XMS REPORT | Continuity of Care Document ---
:1945 Author Organization [facility] PA Semi Care Team Providers Name Role Phone [facility] Semi Unavailable Un available Problems Problem Status Onset Classification Date Comments Sourc e Date Reported Obstructive and 05/27/19 06/01/2017 [place] reflux uropathy, 18 Yogesh d unspecified Hematuria, 05/27/19 06/01/2017 [place] unspecified 18 [place] LUMBAR STENOSIS Active 08/20/[id number] M54.16 - Active 07/21/19 OPIMarcio "RADICULOPATHY, 17 Herm torin LUMBAR REGION" Cerebrovascular Resolved Problem 03/27/2018 Mis terrence accident Neuro, (disorder) [facility], Diana Mcdowell, PRECIOUS [facility] [place] Hematoma Resolved Problem 03/27/2018 [facility] (disorder) Neuro,[facility], PRECIOUS Clements,M Jaquelin Chavez, OPIMarcio [facility] [place] 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 to 8.6 MG Oral Rachelle-Colace. Tablet Docusate Sodium 1 tab, PO, Active 05/29/ Gray gar 50 MG / BID, X 14 day, 2017 [facility] sennosides, [facility] # 28 tab, 0 8.6 MG Oral Refill(s), Tablet Pharmacy: [facility] [id number] ciprofloxacin 500 500 mg = 1 Active [place] mg oral tablet tab, PO, Q12H, 2018 [place] X 7 day, # 14 tab, 0 Refill(s), Pharmacy: [id number] Demarcus Notes: May Inactive Sugar interfere 2018 [...] No Longer [place] MG / Hydrocodone as: [place] Active 2017 [place] Bitartrate 5 MG 325/5) [...] MG TAB, Dosing Oral Tablet Weight 89.545, [[place] 5/325] kg, ONCE, STAT, Start date: 05/26/17 [...] DO NOT Inactive [place]. 2017 [facility] Center Lisinopril Notes: (Same No Longer Javad as as: Prinivil, Active 2017 Medical Zestril) [place] Famotidine 20 MG 20 mg = 1 tab, Active [facility] Oral Tablet PO, BID, # 20 2017 Medica l tab, 0 Center Refill(s) magnesium citrate 8.725 gm = 150 No Longer 09/23 [facility] 58.2 MG/ML Oral ml, PO, Daily, Active 2016 M edical Solution X 2 day, # 300 Center mL, 0 Refill(s) Acetaminophen 325 1 tab, PO, Active [facility] MG / Hydrocodone Q6H, PRN for 2017 Ms dical Bitartrate 10 MG pain, X 14 Cent er Oral Tablet day, # 90 tab, [[place] 10/325] 0 Refill(s) Methocarbamol 500 500 mg = 1 Active [facility] MG Oral Tablet tab, PO, Q8H, 2017 Med ical [Robaxin] PRN Spasms, X Center 10 day, # 30 tab, 0 Refill(s) {21 See Active [facility] (Methylprednisolo Instructions, 2017 Medical ne 4 [...] 2017 Medical (Do Not Crush) Center sennosides, [facility] Notes: (Same No Longer [facility] [...] Acetaminophen 325 Notes: Do not No Longer [place] MG / Hydrocodone exceed 4gm/day Active 2016 [facility] Bitartrate 10 MG of Center Oral Tablet acetaminophen. [[place] 10/325] (Same as: [place] 325/10) Dilaudid Notes: Same No Longer [facility] as: Dilaudid Active 2017 Medical [place] Bisacodyl Notes: (Same No Longer [place] As: Dulcolax, Active 2016 [facility] Bisco-Lax) Center phenol Notes: No Longer [facility] Chloraseptic Active 2016 Medical [place] (Same Center as: Chloraseptic, Sore Throat [place]) WASTE: F/P - Black; E - Municipal Trash Bin Melatonin 3 MG Notes: (Same No Longer [facility] Extended Release as: Melatonin) Active 2017 Medical Tablet Center Benadryl Notes: (Same No Longer [facility] as: Benadryl) Active 2017 Medical Center ceFAZolin Notes: Same No Longer [facility] as: Ancef Active 2016 Medical Center Allergies, Adverse Reactions, Alerts No Known Medication Allergies Immunizations No Data Provided for This Section Results Order Name Results Value Reference Date Interpretation Comments Sluema rce Range HEMATOLOGY MCHC 32.2 32.0 - 05/29 [place] 36.0 2018 [facility] HEMATOLOGY MPV 8.6 7.4 - 10.4 05/29 [facility] HEMATOLOGY Platelet 222 133 - [...] HEMATOLOGY Platelet 225 133 - 450 05/28 [facility] HEMATOLOGY RDW 16.4 11.5 - 05/28 [place] 14.5 [place] HEMATOLOGY MCH 27.8 27.0 - 05/28 [place] 31.0 [place] HEMATOLOGY MCHC 32.2 32.0 - 05/28 [place] 36.0 [facility] HEMATOLOGY MCV 86.2 80.0 - 05/28 [place] 94.0 [place] HEMATOLOGY Hct 35.5 42.0 - 05/28 [place] 54.0 [facility] HEMATOLOGY MPV 8.2 7.4 - 10.4 05/28 Sugar [facility] HEMATOLOGY Hgb 11.4 14.0 - 05/28 [place] 18.0 [place] HEMATOLOGY RBC 4.13 4.70 - 05/28 [place] 6.10 [place] HEMATOLOGY WBC 51.0 3.7 - 10.4 05/28 Result Comment: [facility] Critical Result(s) called to HANDY Garcia at 05/28/2017 05:59 by PLASTICS NURSE. Read back OK. CHEM PANEL eGFR 68 05/27 Result Comment: The [facility] eGFR is calculated using the [...] 0.0 - 0.2 05/27 [place] /2017 [facility] HEMATOLOGY Anisocyte 1+ None Seen 05/27 [place] *ABN* /2017 [place] (05/27/17 8:34 AM) HEMATOLOGY Eosinophils 0.2 0.0 - 0.5 05/27 [place] # /2017 [facility] HEMATOLOGY Segs 19.3 45.0 - 05/27 [place] 75.0 /2017 [facility] HEMATOLOGY Plt Morph Normal 05/27 [place] (05/27/17 8:34 AM) /2017 [facility] HEMATOLOGY Lymphocytes 78.6 20.0 - 05/27 [place] 40.0 /2017 [facility] HEMATOLOGY Platelet 213 133 - 450 05/27 [place] /2017 [facility] HEMATOLOGY MPV 8.5 7.4 - 10.4 05/27 [place] /2017 [facility] HEMATOLOGY MCHC 33.0 32.0 - 05/27 [place] 36.0 [facility] HEMATOLOGY RDW 16.4 11.5 - 05/27 [place] 14.5 [facility] HEMATOLOGY Hgb 12.4 14.0 - 05/27 [place] 18.0 [facility] HEMATOLOGY MCV 86.8 80.0 - 05/27 [place] 94.0 [facility] HEMATOLOGY Hct 37.4 42.0 - 05/27 [place] 54.0 [facility] HEMATOLOGY MCH 28.7 27.0 - 05/27 [place] 31.0 /2017 [facility] HEMATOLOGY WBC 56.8 3.7 - 10.4 05/27 Result /2017 Comment: [facility] Critical Result(s) called to Nadeem Ayala Rn at 05/27/2017 08:53 by Bry. Read back OK. HEMATOLOGY RBC 4.31 4.70 - 05/27 [place] 6.10 [facility] BLOOD BANK ABO/Rh A POS 05/27 [place] RESULTS /2017 [facility] BLOOD BANK Antibody Negative 05/27 [place] RESULTS Scrn (05/27/17 1:34 AM) [facility] BLOOD BANK Platelet Product available 05/27 [place] RESULTS product (05/27/17 1:25 AM) /2017 [facility] CHEM PANEL eGFR 49 05/27 Result [place] /2017 Comment: The [facility] eGFR is calculated using the [...] 35.8 [place] CHEM PANEL eGFR 54 09/19 [facility] Comment: The Medical eGFR is Center [...] PANEL AGAP 15.8 10.0 - 09/19 Result [facility] 20. Comment: Medical Collection Center date/time [...] BUN 18 7 - 22 09/19 Result [facility] Comment: Medical Collection Center date/time has been modified to: 15:35:00. Previous collection date/time: 16:41:00. CHEM PANEL Sodium Lvl 144 135 - 145 09/19 Result [facility] Comment: Medical Collection Center date/time has been modified to: 15:35:00. Previous collection date/time: 16:41:00. CHEM PANEL Creatinine 1.31 0.50 - 09/19 Result [facility] 1.40 Comment: Medical Collection Center date/time has been modified to: 15:35:00. Previous collection date/time: 16:41:00. CHEM PANEL Potassium 3.8 3.5 - 5.1 09/19 Result [facility] Comment: Medical Collection Center date/time has been modified to: 15:35:00. Previous collection date/time: 16:41:00. Pathology Reports No Data Provided for This Section Diagnostic Reports Report Value Date Source Bladder US Bladder Ultrasound 05/27/2017 [facility] History: Hematuria - looking for blood [...] to earlier study. Bladder US EXAM: 05/27/2017 [facility] Urinary bladder ultrasound. CLINICAL HX: Hematuria. [...] -- Two subcentimeter ovo id foci of XIL-smi-jgxygdort restricted diffusion, consistent with acute lacunar infarcts, [...] n outpatient basis. On 12/28/2016 4:30 PM INVENTORY CONTROL COORDINATOR, a call was placed to to notify the referring clinician's office that this exam has important findings p otentially requiring urgent follow-up and to direct their attention to the report for details. There was no response after several attempts, and no voicemail option was available. Several unsuccessful attempts were subsequently m pierce to reach the patient at the provided number of [phone]. A generic message was left on the [...] edema, compression or myelomal acia. 4. Bilateral anterior/crown ironer ior triangle and supraclavicular adenopathy, reactive or neoplastic. Correlate with history. 5. 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 SL: [id number] Spine Thoracic wo Patient Name: IDANIA TERRY 08/11/2016 PRECIOUS [place] contrast MRI : 1945; Age: 71 years y/o Male MR: [id number] Study: Spine Thoracic wo contrast MRI 08/11/2016 [...] canal stenosis or neural foraminal narrowing. SL: [id number] Spine cervical wo Study: Spine cervical wo contrast MRI 08/12/19 17 [facility] contrast MRI Clinical Indication: G95.9 Disease of [...] of the cervical s keith cord. SL: [id number] Spine lumbar flex/ext EXAM: XR LUMBAR SPINE [...] Date Comments Source Heart Rate 63 05/29/2017 [place] Temperature Oral (F) 97.8 F 05/29/2017 [facility] [place] Respitory Rate 18 05/29/2017 [facility] [place] Systolic (mm Hg) 145 05/29/2017 [facility] [place] Diastolic (mm Hg) 83 05/29/2017 MH [place] and Respitory Rate 18 05/29/2017 [facility] [place] Heart Rate 64 05/29/2017 [place] Temperature Oral (F) 97.4 F 05/29/2017 [place] Systolic (mm Hg) 156 05/29/2017 [place] Diastolic (mm Hg) 86 05/29/2017 MH [place] and Respitory Rate 18 05/29/2017 [facility] [place] Temperature Oral (F) 98 F 05/29/2017 [place] Heart Rate 59 05/29/2017 [facility] [place] Systolic (mm Hg) 158 05/29/2017 [place] Diastolic (mm Hg) 69 05/29/2017 MH [place] and BMI Calculated 27.32 05/27/2017 [place] Height 177.8 cm 05/27/2017 [place] Weight 86.364 05/27/2017 [facility] [place] Weight 89.545 05/27/2017 [facility] [place] Weight 90.909 [facility]28[facility] BMI Calculated 28.76 12/28/[facility] Height 177.8 cm 12/28/2016 [facility] Heart Rate 74 12/28/2016 [facility] Systolic (mm Hg) 163 12/28/2016 [facility] Julio ro Diastolic (mm Hg) 82 12/28/2016 [facility] u[facility] Temperature Oral (F) 97.8 F 12/28/2016 [facility] Heart Rate 89 09/24/2016 [facility] Temperature Oral (F) 97.5 F 09/24/2016 [facility] Respitory Rate 18 09/24/2016 [facility] juju Center Systolic (mm Hg) 176 09/24/2016 [facility] dical Center Diastolic (mm Hg) 83 09/24/2016 [facility] Heart Rate 84 09/24/2016 [facility] Systolic (mm Hg) 143 09/24/2016 [facility] dical Center Diastolic (mm Hg) 73 09/24/2016 [facility] Respitory Rate 17 09/24/2016 [facility] Temperature Oral (F) 98.5 F 09/24/2016 [facility] Temperature Oral (F) 98.1 F 09/24/2016 [facility] Systolic (mm Hg) 146 09/24/2016 [facility] Diastolic (mm Hg) 79 09/24/2016 [facility] Respitory Rate 18 09/24/2016 [facility] Heart Rate 70 09/24/2016 [facility] [place] BMI Calculated 29.48 09/22/2016 [facility] Weight 93.182 09[facility]22/2016 [facility] Height 177.8 cm 09/22/2016 [facility] [place] Weight 90.455 09/19/2016 [facility] [place] BMI Calculated 28.61 09/19/2016 [facility] Height 177.8 cm 09/19/2016 [facility] Encounters Location Location Encounter Encounter Reason Attending ADM ME Stat us Source Details Type Number For Provider Date Date Visit Outpatient [id number] TJ ALICIA 07/20 [facility] Outpt Diag [id number] Tj Alicia 07/20 07/21 [facility] Outpt Diag [id number] Tj Alicia 08/11 08/12 [facility] Imaging [place] Outpatient [id number] TJ ALICIA 08/17 [facility] [place] [facility] [id number] TJ ALICIA 09/19 [facility] [place] [facility] [id number] TJ ALICIA 09/19 [facility] [place] [facility] [id number] TJ ALICIA 09/22 [facility] Observation [id number] Tj Alicia 09/22 09/24 [facility] Outpatient [id number] [place] 10/07 Active [facility] [place] Outpatient [id number] TJ ALICIA 11/14 [facility] [place] [facility] Phone [id number] 12/23 12/25 [facility] Message Neuro MNA Spine Phone [id number] 12/26 12/28 [facility] Message Neuro Outpatient [id number] TJ MICHEL 12/28 [facility] [place] [facility] Spine Outpatient [id number] Javi 12/28 12/29 [facility] 8 Aayush Neuro [facility] Outpt Diag [id number] Rufina 12/28 12/29 [facility] 0 [facility] MNA Spine Phone [id number] 01/02 01/04 [facility] Message Neuro [facility] Spine Phone [id number] 01/03 01/05 [facility] Message Neuro MNA Spine Phone [id number] 01/16 01/18 [facility] Message Neuro Outpatient [id number] TJ MICHEL 02/13 [facility] [place] MNA Spine Ambulatory [id number] Javi 02/13 02/13 [facility] Pre-Reg 7 Aayush Neur o MNA Spine Phone [phone] 03/15 03/17 [facility] Message Neuro [facility] [id number] Chata 05/27 05/29 Christel Clements [address] [place] MNA Spine Phone [id number] 09/06 09/08 [facility] Message Neuro Procedures Procedure Code Date Perfomer Comments Source Bladder irrigation, [id number] 05/28/2017 [place] simple, lavage and/or instillation Bladder operation [id number] [facility] Neuro,[facility], PRECIOUS Clements, OPID [place], [facility] [place] Drainage [id number] [facility] Neuro,[facility], PRECIOUS Clements, OPID [place], OPID [facility] [place] Lymph node [id number] [facility] operation Neuro,[facility], PRECIOUS Clements, OPID [place], OPID [facility] [place] Assessment and Plan Assessment and Plan Date Source Extracted from:Title: Progress Note * 05/29/2017 DARREN Billy Author: Colton Angel MD Date: 05/29/17 Impression and Plan Gross hematuria with clot retention afte r urodynamics at [facility]. Patient has been on aspirin [...] and Plan Gross hematuria after urodynamics at [facility]. Patient was on aspirin and Plavix at [...] Cessation Counseling No Social History TypeResponse 09/19/2016 [facility] Alcohol Current, Frequency: 1-2 times per year. [...]
--- OUTSIDE RECORDS SUMMARY | 2020-01-31 18:56 | XMS REPORT | Continuity of Care Document ---
:1945 Author Organization [facility] t Address [address] [place] [address] Care Team Providers Name Role Phone Ella [...] Expiration Date Sour ce Number MEDICAREMEDICARE A [id number] [id number] 2009- 00:00:00 - Medical PresentMedicare Center [facility] [id number] [facility] SUPPLEMENT/INDIVIDUALA 00:00:00 - Medical [id number] /02/2019-PresentMedigap Problems Condition Condition Condition Status Onset [...] LUMBAR 00:00: Tyree STENOSIS 00 Active 08/19/2016 [facility] M54.16 - Diagnosis Active 2016-07-20 M emoria "RADICULOP 6-14 12:52:00 l ATHY, M54.16 - 00:01: Dieudonne n LUMBAR "RADICULOP 00 REGION" ATHY, LUMBAR REGION" Active 07/20/2016 PRECIOUS Clements Mitral Mitral Disease Active [facility] valve valve 06-06 Methodi insufficie insufficie 00:00: st ncy ncy 00 Panlobular Panlobular Disease Active H jordan emphysema emphysema 06-06 Meth rosario 00:00: st 00 Peripheral Peripheral Disease Active H jordan vascular vascular 06-06 Method i disease disease 00:00: st 00 Pitting Pitting Disease Active [facility] edema edema - Methodi 00:00: st 00 Myelopathy Myelopathy Disease Active H jordan of of 06-06 Methodi cervical cervical 00:00: st spinal spinal 00 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 radiculopa thy thy SVT SVT Disease Active [facility] (supravent (supravent 06-06 Me thodi ricular ricular 00:00: st tachycardi tachycardi 00 a) a) 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 00:00: st 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) Hematoma Problem Resolve 2018-03-27 Me moria (disorder) d 14:50:09 l Hematoma Dieudonne n (disorder) Resolved Problem 03/27/2018 [facility] Neuro,[facility], PRECIOUS Clements, PRECIOUS Chavez,M [facility] [place] Hypertensi Problem Active 2018-03-27 M emoria ve 14:50:09 l disorder, Regan systemic Hypertensi arterial ve (disorder) disorder, systemic arterial (disorder) Active Problem 03/27/2018 [facility] Neuro,[facility], PRECIOUS Clements, PRECIOUS Chavez,M OPIMarcio [facility] [place] Tobacco Tobacco Disease Active [facility] use [facility] Obstructiv Problem 2017-2017-06-01 2017-06-01 Memoria e and 4-20 02:24:06 02:24:06 l reflux 05:00: Tyree uropathy, Obstructiv 00 unspecifie e and d reflux uropathy, unspecifie d 05/26/2017 06/01/2017 [place] Hematuria, Problem 2017-2017-06-01 2017-06-01 Memoria unspecifie 4-20 02:24:06 02:24:06 l d 05:00: Tyree Hematuria, 00 unspecifie d 05/26/2017 06/01/2017 [place] History of Past Illness Condition Condition Condition [...] Date Stop Date Source Natural father Cancer [facility] Me thodist Natural father Hypertension [facility] Presybeterian Natural father Aneurysm [facility] Natural mother Arthritis [facility] Me thodist Natural mother COPD [facility] Social History Social Habit Start Date Stop Date Quantity Comments Source History of tobacco [facility] sm[facility] Sex Assigned At [facility] Exposure to Not sure [facility] Cigarettes smoked 2020-01-07 2020-01-[address] [facility] - current (pack per 00:00:00 00:00:00 Medical Center day) - Reported Cigarette 2020-01-07 2020-01-[address] [facility] - pack-years 00:00:00 00:00:00 [facility] Tobacco use and 2020-01-07 2020-01-[address] [facility] - exposure 00:00:00 00:00:00 [facility] Alcohol intake 2020-01-07 2020-01-07 Ex-drinker [facility] es - 00:00:00 00:00:00 (finding) [facility] Social History 2016-09-19 2016-09-19 [facility] Jaquelin isaac 20:24:11 20:24:11 Alcohol Comment 2016-05-25 2016-05-25 willis Ortiz ethodist 00:00:00 00:00:00 Smoking Status Start Date Stop Date Source Former smoker 2020-01-07 00:00:00 2020-01-07 00:00:[address] [facility] Social History 2016-07-21 10:16:13 [facility] Medications Ordered Filled Start Stop Current [...] [facility] (BYSTOLIC) 02-18- tablet (10 Aya kes - 10 MG 00:00: 23:59 mg [...] Medic al 24 hr 51 :00 daily. [facility] capsule clopidogrel 2019-02- No 75mg QD Take [address] (PLAVIX) 75 02-17 by mouth Sonia es - mg tablet 08:27: 00:00 daily. Medic al 51 :00 [facility] aspirin 81 2019-02- No 81mg QD Take [address] MG EC 02-17 by mouth [facility]ukes - tablet 08:27: 00:00 daily. Medical 51 :00 [facility] VALSARTAN 2019-02- No 160mg QD Take [address] ORAL 02-17 mg by [facility] - 08:27: 00:00 mouth Medical 51 :00 daily . [facility] nebivolol 2019-02- No 5mg QD Take [address] (BYSTOLIC) 02-17 by mouth Luke s - 5 MG tablet 08:27: 00:00 nightly. M edical 51 :00 [facility] clopidogreL 2019-02- Yes 75mg QD Take 1 [...] 00:00 mouth Medical (DIOVAN-HCT 00 :00 daily. [facility] ) 160-12.5 mg per tablet Docusate No Notes: Memoria Sodium 50 4-23 (Same as l MG / 22:00: Senokot-S) Tyree sennosides, 00 Equiv. to [facility] 8.6 MG Rachelle-Colac Oral Tablet e. Docusate Yes 1 tab, PO, Mem oria Sodium 50 4-23 BID, X 14 l MG / 17:38: day, # 28 Tyree sennosides, 00 tab, 0 [facility] 8.6 MG Refill(s), Oral Tablet Pharmacy: [facility] ciprofloxac Yes 500 mg = 1 Memoria in 500 mg 4-23 tab, PO, l oral tablet 17:38: Q12H, X 7 H ermann 00 day, # 14 tab, 0 Refill(s), Pharmacy: [facility] Cipro No Notes: May Memori a 4-23 [...] 0 Memori a 4-22 Refill(s) l 15:24: Regan nebivolol Yes 10 mg = 1 Mem oria 10 MG Oral 4-22 tab, PO, l Tablet 15:24: Daily, 0 Regan [Bystolic] 00 Refill(s) Bystolic No Notes: Memoria 4-22 (same as: l 14:00: Bystolic) Tyree 00 Crestor No Notes: Memoria 4-22 (Same As: l 02:00: Crestor) Regan 00 Docusate No Notes: Memoria 4-21 (Same as: l 14:00: Colace) Regan 00 (Do Not Crush) Lisinopril No Notes: [...] 4-21 not exceed l 07:05: 4 gm/day. Regan 00 (Same as: Tylenol) Acetaminoph No Notes: Juan Alberto verónica en 325 MG / 05-27 (Same as: l Hydrocodone 07:05: [place] nn Bitartrate 00 325/5) Do 5 MG Oral not exceed Tablet 4gm/day of acetaminop hen. Morphine No Notes: Memoria 4-21 (Same l 07:05: as:MORPhin Regan e Sulfate) Ondansetron No Notes: Juan Alberto verónica - (Same as: l 07:05: Zofran) Tyree 00 MEDICATION WASTE Product Size: 4 mg Product Wasted: ___ mg Irrigation No Notes: For M emoria w/ Normal 4-21 irrigation l Saline 07:00: only. Tyree 00 Sodium No Notes: For Memor ia Chloride -21 irrigation l 0.0769 07:00: only. Regan MEQ/ML 00 Irrigation Solution Sodium No 250 mL, Memoria Chloride 05-27 Rate: To l 0.9% 06:25: prime line Regan (titrate) 00 and flush 250 mL remaining blood products., Dosing Weight 89.545, kg, Route: IV, Total Volume: 250, Start Date: 05/27/17 1:25:00 CDT, Duration: 30 day, Stop date: 06/26/17 1:24:00 CDT, Replace Every: 24 hr Irrigation No Notes: For M emoria w/ Normal 4-21 irrigation l Saline 05:58: only. Regan Irrigation No Notes: For M emoria w/ Normal 4-21 irrigation l Saline 04:45: only. Tyree Saline No Notes: Memoria Flush 0.9% 05-27 (Same as: l 04:12: BD Regan Posiflush) Phenazopyri No 100 mg = 1 [...] TAB, 5 MG Oral Dosing Tablet Weight [[place] 89.545, 5/325] kg, ONCE, STAT, Start date: [...] MG Oral # 90 tab, Tablet 0 [[place] Refill(s) 10/325] Methocarbam Yes 500 mg = [...] Crush) sennosides, No Notes: Juan Alberto verónica [facility] 8-17 (Same as: l 22:00: Senokot) Clonidine [...] 21:37: Romazicon) Hydralazine No Notes: Juan Alberto veróinca 8-17 (Same as: l 21:37: Apresoline ) [...] 10 MG Oral hen. Tablet (Same as: [[place] 10/325] 325/10) Dilaudid No Notes: Memoria 09-22 Same as: l 21:11: Dilaudid Tyree Bisacodyl No Notes: Memori a 09-22 (Same As: l 21:11: Dulcolax, Regan Bisco-Lax) phenol No Notes: Memoria 09-22 Chlorasept l 21:11: ic [place] Tyree (Same as: Chlorasept ic, Sore Throat [place]) WASTE: F/P - Black; E - Municipal Trash Bin Melatonin 3 No Notes: Juan Alberto verónica MG Extended 09-22 (Same as: l Release 21:11: Melatonin) Herm torin Tablet 00 Benadryl No Notes: Memoria 09-22 (Same as: l 21:11: Benadryl) Regan ceFAZolin No Notes: Memori a 09-22 Same as: l 08:00: Ancef Regan rosuvastati Yes TK 1 T PO [place] n (CRESTOR) 3-22 QD Methodi 10 MG 00:00: st tablet 00 Vital Signs Vital Name Observation Time Observation Value Comments Source Systolic blood 2020 14:00:00 140 mm[Hg] [facility] Diastolic blood 2020 14:00:00 66 mm[Hg] [facility] Heart rate 2020 14:00:00 58 /min [facility] Respiratory rate 2020 14:00:00 18 /min [facility] Oxygen saturation in 2020 13:00:00 98 /min [facility] Arterial blood by Medical Ce nter Pulse oximetry Body temperature 2020 11:52:00 48 Alexia [facility] Body height 2020 08:39:[address] [facility] Body weight 2020 08:39:[address] [facility] BMI 2020 08:39:00 26.23 kg/m2 [facility] Heart Rate 2017-05-29 16:49:00 [facility] Regan Temperature Oral (F) 2017-05-29 16:49:00 97.8 F [facility] Regan Respitory Rate 2017-05-29 16:49:00 Memori al Regan Systolic (mm Hg) 2017-05-29 16:49:00 Juan Alberto rial Tyree Diastolic (mm Hg) 2017-05-29 16:49:00 Mem orial Tyree Respitory Rate 2017-05-29 13:20:00 Memori al Regan Heart Rate 2017-05-29 13:20:00 [facility] Tyree Temperature Oral (F) 2017-05-29 13:20:00 97.4 F [facility] Regan Systolic (mm Hg) 2017-05-29 13:20:00 Juan Alberto rial Regan Diastolic (mm Hg) 2017-05-29 13:20:00 Mem orial Regan Respitory Rate 2017-05-29 08:34:00 Memori al Regan Temperature Oral (F) 2017-05-29 08:34:00 98 F [facility] Tyree Heart Rate 2017-05-29 08:34:00 [facility] [place] Systolic (mm Hg) 2017-05-29 08:34:00 Juan Alberto rial Tyree Diastolic (mm Hg) 2017-05-29 08:34:00 Mem orial Regan BMI Calculated 2017-05-27 08:46:00 Memori al Regan Height 2017-05-27 08:46:00 177.8 cm [facility] Regan Weight 2017-05-27 08:46:00 [facility] Tyree Weight 2017-05-27 00:09:00 [facility] Regan Weight 2016-12-28 18:56:00 [facility] Regan BMI Calculated 2016-12-28 18:56:00 Memori al Tyree Height 2016-12-28 18:56:00 177.8 cm [facility] Regan Heart Rate 2016-12-28 18:56:00 [facility] Regan Systolic (mm Hg) 2016-12-28 18:56:00 Juan Alberto rial Tyree Diastolic (mm Hg) 2016-12-28 18:56:00 Mem orial Tyree Temperature Oral (F) 2016-12-28 18:56:00 97.8 F [facility] Regan Heart Rate 2016-09-24 12:50:00 [facility] Regan Temperature Oral (F) 2016-09-24 12:50:00 97.5 F [facility] Regan Respitory Rate 2016-09-24 12:50:00 Memori al Tyree Systolic (mm Hg) 2016-09-24 12:50:00 Juan Alberto rial Tyree Diastolic (mm Hg) 2016-09-24 12:50:00 Mem orial Regan Heart Rate 2016-09-24 08:43:00 Memorial Tyree Systolic (mm Hg) 2016-09-24 08:43:00 Juan Alberto rial Tyree Diastolic (mm Hg) 2016-09-24 08:43:00 Mem orial Tyree Respitory Rate 2016-09-24 08:43:00 Memori al Regan Temperature Oral (F) 2016-09-24 08:43:00 98.5 F [facility] Regan Temperature Oral (F) 2016-09-24 04:44:00 98.1 F [facility] Tyree Systolic (mm Hg) 2016-09-24 04:44:00 Juan Alberto rial Tyree Diastolic (mm Hg) 2016-09-24 04:44:00 Mem orial Tyree Respitory Rate 2016-09-24 04:44:00 Memori al Regan Heart Rate 2016-09-24 04:44:00 [facility] Tyree BMI Calculated 2016-09-22 15:39:00 Memori al Regan Weight 2016-09-22 15:39:00 Memorial Tyree Height 2016-09-22 15:39:00 177.8 cm [facility] Tyree Weight 2016-09-19 20:20:00 [facility] Regan BMI Calculated 2016-09-19 20:20:00 Memori al Regan Height 2016-09-19 20:20:00 177.8 cm [facility] Tyree Procedures Procedure Date / Time Performing Clinician Source Performed POCT-ACT 2020 11:24:00 Colton Bolanos [facility] ECG 12-LEAD 2020 10:50:42 Vane Downs [facility] ANGIOGRAM,CORONARY 2020 10:04:00 Colton Bolanos [facility] CARDIAC CATH REPORT - 2020 00:00:00 Juan A Momin [facility] SARS-COV2/RT-PCR ([facility] & 2020-01-03 10:25:00 Colton Bolanos [facility] - REF LABS) [facility] POCT-GLUCOSE METER 2019-12-19 07:18:00 Oneil [facility] BASIC METABOLIC PANEL (7) 2019-12-19 04:49:00 Kalia Hagen [facility] MAGNESIUM 2019-12-19 04:49:00 Xiao [facility] PHOSPHORUS 2019-12-19 04:49:00 Xiao [facility] CBC (HEMOGRAM ONLY) 2019-12-19 04:49:00 Irvin Mills [facility] POCT-GLUCOSE METER 2019-12-18 21:00:00 Oneil [facility] POCT-GLUCOSE METER 2019-12-18 16:56:00 Oneil [facility] POCT-GLUCOSE METER 2019-12-18 11:16:00 Oneil [facility] ECG 12-LEAD 2019-12-18 08:29:14 Unknown, Hl7 Doctor [facility] POCT-GLUCOSE METER 2019-12-18 07:37:00 Oneil [facility] SARS-COV2/RT-PCR ([facility] & 2019-12-18 05:39:00 Oneil [facility] - REF LABS) [facility] BASIC METABOLIC PANEL (7) 2019-12-18 05:24:00 Kalia Hagen [facility] MAGNESIUM 2019-12-18 05:24:00 [facility] 2019-12-18 05:24:00 Agekanikazeeshan [facility] CBC (HEMOGRAM ONLY) 2019-12-18 05:24:00 [facility] POCT-GLUCOSE METER 2019-12-17 21:25:00 [facility]SE METER 2019-12-17 16:03:00 [facility] POCT-[facility]UCOSE METER 2019-12-17 11:59:00 [facility] POCT-GLUCOSE METER 2019-12-17 07:49:00 [facility] BASIC METABOLIC PANEL (7) 2019-12-17 05:11:00 Kalia Hagen [facility] MAGNESIUM 2019-12-17 05:11:00 Agejose a [facility] PHOSPHORUS 2019-12-17 05:11:00 [facility] ([facility]GRAM ONLY) 2019-12-17 05:11:00 [facility] POCT-GLUCOSE METER 2019-12-16 21:16:00 [facility] POCT-GLUCOSE METER 2019-12-16 16:18:00 Costre [facility] POCT-GLUCOSE METER 2019-12-16 12:02:00 [facility] POCT-GLUCOSE METER 2019-12-16 07:39:00 [facility] BASIC METABOLIC PANEL (7) 2019-12-16 05:13:00 Kalia Hagen [facility] MAGNESIUM 2019-12-16 05:13:00 Agejose a [facility] PHOSPHORUS 2019-12-16 05:13:00 Ageedi, Waleed [facility] APTT 2019-12-16 05:13:00 Oneil [facility] CBC (HEMOGRAM ONLY) 2019-12-16 05:13:00 [facility] POCT-GLUCOSE METER 2019-12-15 21:20:00 Oneil [facility] APTT 2019-12-15 04:14:00 [facility] (7) 2019-12-15 04:10:00 Juan Lawson [facility] MAGNESIUM 2019-12-15 04:10:00 [facility]OS[facility]US 2019-12-15 04:10:00 Renny [facility] CBC (HEMOGRAM ONLY) 2019-12-15 04:09:00 Juan Lawson [facility] PREPARE RBC 2019-12-14 23:54:00 Oneil [facility] POCT-GLUCOSE METER 2019-12-14 22:34:00 Oneil [facility] APTT 2019-12-14 21:01:00 Efrain Barajas [facility] POCT-GLUCOSE METER 2019-12-14 18:05:00 [facility] APTT 2019-12-14 14:42:00 [facility] BASIC METABOLIC PANEL (7) 2019-12-14 13:58:[address] [facility] MAGNESIUM 2019-12-14 13:58:00 Irvin Mills [facility] POCT-GLUCOSE METER 2019-12-14 13:47:00 [facility] POCT-GLUCOSE METER 2019-12-14 09:00:00 [facility] APTT 2019-12-14 07:52:00 Juan Lawson [facility] XR CHEST 1 VIEW 2019-12-14 07:50:00 Joaquina Tariq Irvin [facility] PORTABLE/BEDSIDE [facility] BLOOD GAS, ARTERIAL 2019-12-14 05:07:00 Xiao [facility] APTT 2019-12-14 05:07:00 [facility] (HEMOGRAM ONLY) 2019-12-14 03:28:00 Juna Lawson [facility] BASIC METABOLIC PANEL (7) 2019-12-14 03:28:00 Juan Lawson [facility] MAGNESIUM 2019-12-14 03:28:00 [facility] PHOSPHORUS 2019-12-14 03:28:00 Renny [facility] POCT-GLUCOSE METER 2019-12-13 23:24:00 Delano Sierra [facility] XR CHEST 1 VIEW 2019-12-13 23:20:00 [facility] - PORTABLE/BEDSIDE [facility] BLOOD GAS, ARTERIAL 2019-12-13 23:12:00 [facility] CALCIUM, IONIZED 2019-12-13 23:12:00 [facility] CBC (HEMOGRAM ONLY) 2019-12-13 23:10:00 [facility] BASIC METABOLIC PANEL (7) 2019-12-13 23:10:00 [facility] APTT 2019-12-13 23:10:00 [facility] PROTHROMBIN TIME/INR 2019-12-13 23:10:00 Sanjana [facility] PHOSPHORUS 2019-12-13 23:10:00 [facility]UM 2019-12-13 23:10:00 Kalia Hagen [facility] POCT-ACT 2019-12-13 21:38:00 [facility] POCT-ACT 2019-12-13 20:51:00 [facility] CALCIUM, IONIZED 2019-12-13 20:48:35 Javier [facility] BLOOD GAS, ARTERIAL 2019-12-13 20:48:35 Javier [facility] SODIUM NA-STAT LAB 2019-12-13 20:48:35 Javier [facility] POTASSIUM-STAT LAB 2019-12-13 20:48:35 Javier [facility] GLUCOSE-STAT LAB 2019-12-13 20:48:35 Javier [facility] HGB/HCT (H&H) - STAT LAB 2019-12-13 20:48:35 Javier [facility] POCT-ACT 2019-12-13 20:17:00 [facility] TRANSFUSE LEUKO-REDUCED 2019-12-13 19:48:17 Javier [facility] - RED BLOOD CELLS [facility] TRANSFUSE LEUKO-REDUCED 2019-12-13 19:46:32 Javier [facility] - RED BLOOD CELLS [facility] POCT-ACT 2019-12-13 19:37:00 [facility] CALCIUM, IONIZED 2019-12-13 19:31:54 Javier [facility] BLOOD GAS, ARTERIAL 2019-12-13 19:31:54 Javier [facility] SODIUM NA-STAT LAB 2019-12-13 19:31:54 Javier [facility] POTASSIUM-STAT LAB 2019-12-13 19:31:54 Javier [facility] GLUCOSE-STAT LAB 2019-12-13 19:31:54 [facility] (H&H) - STAT LAB 2019-12-13 19:31:54 John Herrera [facility] POCT-ACT 2019-12-13 18:54:00 Delano [facility] CALCIUM, IONIZED 2019-12-13 18:18:55 [facility] LACTIC ACID, ARTERIAL 2019-12-13 18:18:55 [facility] BLOOD GAS, ARTERIAL 2019-12-13 18:18:55 [facility] SODIUM NA-STAT LAB 2019-12-13 18:18:55 [facility] 2019-12-13 18:18:55 [facility] GLUCOSE-STAT LAB 2019-12-13 18:18:55 [facility] HGB/HCT (H&H) - STAT LAB 2019-12-13 18:18:55 [facility] ANGIO[facility]-LOWER EXTREMITY 2019-12-13 17:10:00 [facility] THROMBECTOMY-LOWER 2019-12-13 17:10:00 [facility] HC ARTERIAL DOPPLER LEGS 2019-12-13 12:51:00 Irvin Mills CH [facility] WINTER [facility] HC ARTERIAL(RAFIQ W 2019-12-13 12:51:[address] [facility] es - DOPPLER)ONLY [facility] URINE CULTURE 2019-12-13 11:33:00 Irvin Mills [facility] URINALYSIS W/ REFLEX 2019-12-13 11:33:00 Irvin Mills [facility] - URINE CULTURE [facility] BASIC METABOLIC PANEL (7) 2019-12-13 11:31:[address] [facility] MAGNESIUM 2019-12-13 11:31:00 [facility] PHOSPHORUS 2019-12-13 11:31:00 [facility] PROTHROMBIN TIME/INR 2019-12-13 11:31:00 [facility] APTT 2019-12-13 11:31:00 [facility] CBC W/PLT COUNT & AUTO 2019-12-13 11:31:00 [facility] DIFFERENTIAL [facility] XR CHEST 1 VIEW 2019-12-13 11:20:00 [facility] PORTABLE/BEDSIDE [facility] POCT-ACT 2019-12-13 10:38:00 [facility] POCT-ACT 2019-12-13 09:24:00 [facility] 2019-12-13 09:10:00 [facility] CALCIUM, IONIZED 2019-12-13 08:13:[address] [facility] BLOOD GAS, ARTERIAL 2019-12-13 08:13:27 Isidoro Pierce I [facility] SODIUM NA-STAT LAB 2019-12-13 08:13:27 Isidoro Pierce [facility] POTASSIUM-STAT LAB 2019-12-13 08:13:27 Isidoro Pierce [facility] GLUCOSE-STAT LAB 2019-12-13 08:13:[address] [facility] HGB/HCT (H&H) - STAT LAB 2019-12-13 08:13:27 Isidoro Pierce [facility] REPAIR,EVAR-ENDOVASCULAR 2019-12-13 07:03:00 Oneil [facility] AORTIC ANEURYSM [facility] BASIC METABOLIC PANEL (7) 2019-12-13 04:22:00 Kvng-Smart, Simah [facility] HEMOGLOBIN A1C 2019-12-13 04:22:00 Lo, Casey [facility] CBC W/PLT+MANUAL DIFF 2019-12-13 04:22:00 Kalia Hagen [facility] MAGNESIUM 2019-12-13 04:22:00 [facility]OS[facility]US 2019-12-13 04:22:00 Renny [facility] CBC WITH PLATELET COUNT + 2019-12-13 04:22:[address] [facility] - MANUAL DIFF [facility] (CELLAVISION MANUAL DIFF) 2019-12-13 04:22:00 Kalia Hagen [facility] PREPARE RBC 2019-12-12 22:21:00 Oneil [facility] POCT-GLUCOSE METER 2019-12-12 21:26:00 Oneil [facility] PROTHROMBIN TIME/INR 2019-12-12 18:32:00 Kvng-Smart [facility] POCT-GLUCOSE METER 2019-12-12 16:40:00 Oneil [facility] BASIC METABOLIC PANEL (7) 2019-12-12 16:27:00 Kerry [facility] VASCULAR DIAGRAM -SCAN 2019-12-12 00:00:00 ProviderJuan [facility] ANTIBODY IDENTIFICATION 2019-12-11 16:23:00 Kerry Casey [facility] HC CAROTID DOPPLER WINTER 2019-12-11 13:52:00 Kerry [facility] XR CHEST 2 VIEWS 2019-12-11 12:33:[address] [facility] ECG 12-LEAD 2019-12-11 12:01:53 Unknown, Hl7 Doctor [facility] SARS-COV2/RT-PCR ([facility] & 2019-12-11 11:49:00 Oneil [facility] - REF LABS) [facility] BASIC METABOLIC PANEL (7) 2019-12-11 10:38:00 Lo, [facility] HC LAB HIV-1 AG W/HIV-1&2 2019-12-11 10:38:00 Lo, [facility] ALBUMIN 2019-12-11 10:38:00 Lo, [facility] ALKALINE PHOSPHATASE 2019-12-11 10:38:00 Lo, [facility] BILIRUBIN, ADULT TOTAL 2019-12-11 10:38:00 Lo, [facility] BILIRUBIN, DIRECT 2019-12-11 10:38:00 Lo, [facility] AST (SGOT) 2019-12-11 10:38:00 Lo, [facility] ALT (SGPT) 2019-12-11 10:38:00 Lo, [facility] PROTEIN, TOTAL 2019-12-11 10:38:00 Lo, [facility] PROTHROMBIN TIME/INR 2019-12-11 10:38:00 Lo, [facility] APTT 2019-12-11 10:38:00 Lo, [facility] RETICULOCYTE COUNT 2019-12-11 10:38:00 Lo, [facility] HEPATITIS B PANEL 2019-12-11 10:38:00 Lo, [facility] AMYLASE 2019-12-11 10:38:00 Lo, [facility] LIPASE 2019-12-11 10:38:00 Lo, [place] [facility] HEPATITIS C ANTIBODY 2019-12-11 10:38:00 Lo, [facility] URINALYSIS W/ MICROSCOPIC 2019-12-11 10:38:00 Lo, [facility] LACTATE DEHYDROGENASE 2019-12-11 10:38:00 Lo, [facility] HEMOGLOBIN A1C 2019-12-11 10:38:00 David Osoriochazeehsan [facility] TYPE AND SCREEN, 2019-12-11 10:38:00 Lo, [facility] AUTOMATED [facility] DIRECT AHG (GARTH)/DIRECT 2019-12-11 10:38:00 Lo, [facility] CBC W/PLT COUNT & AUTO 2019-12-11 10:38:00 Lo, [facility] (CELLAVISION MANUAL DIFF) 2019-12-11 10:38:00 Lo, [facility] SPIROMETRY 2019-11-21 10:30:00 Lo, [facility] CTA ABDOMEN & PELVIS 2019-11-05 08:01:00 Lo, [facility] CTA CHEST 2019-11-05 08:01:00 Lo, [facility] POCT-CREATININE 2019-11-05 07:25:00 Lo, [facility] Bladder irrigation, 2017-05-28 16:15:00 [facility] simple, lavage and/or instillation Bladder operation [facility] nn Drainage [facility] Lymph node operation [facility] Plan of Care Planned Activity Planned Date [...] IPPE)] Future Scheduled 2010 65+ PNEUMOCOCCAL [facility] Test 00:00:00 VACCINE (1 of 1 - PPSV23) [code = 65+ PNEUMOCOCCAL VACCINE (1 of 1 - PPSV23)] Future Scheduled 2010 PNEUMOCOCCAL 65+ YRS [facility] - Test 00:00:00 (1 of 1 - [facility] Center YCKP74_Ovfxwtk PCV13) [code = PNEUMOCOCCAL 65+ YRS (1 of 1 - XKWV25_Xvpncmt PCV13)] Future Scheduled 1995 COLONOSCOPY SCREENING [place] [facility] Test 00:00:00 [code = COLONOSCOPY SCREENING] Future Scheduled 1995 SHINGLES VACCINES (#1) [place] [facility] Test 00:00:00 [code = SHINGLES VACCINES (#1)] Future Scheduled 1961 COVID-19 VACCINE (#1) [place] [facility] Test 00:00:00 [code = COVID-19 VACCINE (#1)] Future Scheduled [address] [facility] - Test 00:00:00 malignant neoplasm of [facility] colon (procedure) [code = 159056775] Encounters Start End Encounter Admission Attending Care Care Encounter Source Date/Time Date/Time Type Type Clinicians Facility Department ID 2019-12-26 2019-12-26 Office [place] Bolanos [id number] 11:13:47 11:28:47 Visit [place] AMBULATOR 350.1.13.21 Riki Penn 0.2.7.2.686 [id number] 2018-10-16 2018-10-16 Orders Doctor BRYAN [id number] 00:00:00 00:00:00 Only Unassigned, [facility] 350.1.13.10 [facility] 4.2.7.2.686 [id number] 2018-09-10 2018-09-10 Orders Doctor BRYAN [id number] 00:00:00 00:00:00 Only UnassignedAMADOR 350.1.13.10 [facility] 4.2.7.2.686 [id number] 2017-09-06 2017-09-07 Outpatient MHMISCHER MISCHER [id number] 13:27:00 23:59:59 13 2017-05-26 2017-05-29 Outpatient ANNALISA Carlson [facility] [id number] 19:05:00 16:01:00 Chata Chowdhury 2017-03-15 2017-03-16 Outpatient MHMISCHER MHMISCHER [id number] 16:21:00 23:59:59 12 2017-02-13 2017-02-13 Outpatient Tj Alicia MHMISCHER MHMISCHER [id number] 08:45:00 08:45:00 Hwan 2017-02-13 2017-02-13 Outpatient Tj Alicia MHMISCHER MHMISCHER [id number] 08:45:00 08:45:00 Hwan 2017-02-13 2017-02-13 Outpatient Tj Alicia MHMISCHER MHMISCHER [id number] 08:45:00 08:45:00 Hwan 2017-01-16 2017-01-17 Outpatient MHMISCHER MHMISCHER [id number] 11:51:00 23:59:59 11 2017-01-03 2017-01-04 Outpatient MHMISCHER MHMISCHER [id number] 11:44:00 23:59:59 10 2017-01-02 2017-01-03 Outpatient MHMISCHER MHMISCHER [id number] 15:19:00 23:59:59 09 2016-12-28 2016-12-28 Outpatient Tj Alicia MHMISCHER MHMISCHER [id number] 08:00:00 23:59:59 Hwan 2016-12-28 2016-12-28 Outpatient Azar 2.16.840. [id number] 14:30:00 23:59:00 Rufina [id number] Ingrid 3.615.64 5.64 2016-12-26 2016-12-27 Outpatient MHMISCHER MHMISCHER [id number] 09:23:00 23:59:59 08 2016-12-23 2016-12-24 Outpatient MHMISCHER MHMISCHER [id number] 09:42:00 23:59:59 07 2016-09-22 2016-09-24 Outpatient Tj Alicia [facility] [id number] 16:11:00 11:45:00 Hwan 2016-08-11 2016-08-11 Outpatient Tj Alicia [facility] [id number] 16:55:00 23:59:00 Hwan 2016-07-20 2016-07-20 Outpatient Tj Alicia [facility] [id number] 10:41:00 23:59:00 Hwan 00 Results Test Description Test Time Test Results Result Source Comments Comments CARDIAC CATH Ordered by an unspecified [facility] - SCAN [address] [facility] - 12:09:17 [facility] ECG 12 lead 2019-12-10 Interface, External Ris [facility] 0 In - 2020 1:29 PM [facility] - 13:28:55 CSTVentricular Rate 51 Me dical BPMAtrial Rate 166 BPMQRS Center Duration 92 msQ-T Interval 524 msQTC Calculation(Bazett) 482 msP Patterson 41 degreesR Patterson -6 degreesT Patterson 56 degreesSinus bradycardiaCannot rule out Anterior infarct , age undeterminedProlonged QTAbnormal ECG11 DEC 2019Sinus bradycardia replaced AVNRTST no longer depressed precordial leadsQT has shortenedConfirmed by MD MUSHTAQ, RADHA ([id number]) on 2020 1:28:53 PM POC ACTIVATED CLOTTING TIME 2020 11:45:00 Test Item Value Reference Range Interpretation Comme nts Activated Clotting Time (test 252 sec : 74-137 seconds, Baseline: TESTED AT code = 441) [facility] [address] [facility], [address]: Actuarial Internship/Techni rigoberto ID = [id number] for GREGG, CLAU [facility][id number] 11:45:00 Test Item Value Reference Range Interpretation Comments ACTIVATED CLOTTING TIME 252 sec : 74 -137 seconds, (BEAKER) (test code = Baseli ne: TESTED AT 441) [facility] [address] [facility], [address]: Actuarial Internship/Techni rigoberto ID = [id number] for CO NDE, CLAU SARS-CoV2/RT-PCR ([facility] & Ref Labs)2020-01-03 17:54:00 Test Item Value Reference Range Interpretation Comments SARS-COV2/RT-PCR Negative Not Detected, (test code = Negative, See 64794-0) external report for linked test SARS-COV-2 [facility] GENEVIEVE PERFORMING LAB (test code = 48435-4) AMRITA (test code = Negative result for [...] of the Act. Fact Sheet for Healthcare Providers:https://www.DwellAware idel.com/sites/default/f odalys/product/documents/F act_Sheet_HC_Providers_L qbe_GADQ-MrV-6.pdf Fact Sheet for Healthcare Patients:https://www.krzysztof del.YUPIQ/sites/default/fi les/product/documents/Fa ct_Sheet_Patients_Lyra_S ARS-CoV-2.pdf Performing Laboratory:[facility] [place] [address] [facility] ([facility] REF LABS)2020-01-03 17:54:00 Test Item Value Reference Range Interpretation Comments SARS-COV2/RT-PCR (test Negative Not Detected, Negative, code = 9610378) See external report for linked test SARS-COV-2 PERFORMING LAB [facility] GENEVIEVE (test code = 9930515) Negative result for this test determines that [...] 564(g) of the Act.Fact Sheet for Healthcare Providers:https://www.DwellAwareidel.com/sites/default/files/product/documents/Fact_Shee q_MY_Vewqpasgr_Iraj_TCJV-WnZ-8.pdfFact Sheet for Healthcare Patients:https://www.datatracker.com/sites/default/files/product/ documents/Idey_Dxbwq_Jifkbywp_Xocd_FTXG-PjN-6.pdfPerforming Laboratory:[facility], [place] [address]RMPEKSZRSOHAIL ASHER -[id number] 10:07:56Ordered by an unspecified provider.[facility] ([facility] REF [facility])2019-12-19 10:14:00 Test Item Value Reference Range Interpretation Comments SARS-COV2/RT-PCR (test Negative Not Detected, Negative, code = 6349166) See external report for linked test SARS-COV-2 PERFORMING LAB [facility] GENEVIEVE (test code = 5560343) Negative result for this test determines that [...] 564(g) of the Act.Fact Sheet for Healthcare Providers:https://www.datatracker.YUPIQ/sites/default/files/product/documents/Fact_Shee t_TF_Pdotznknk_Ppau_YQXZ-YjN-6.pdfFact Sheet for Healthcare Patients:https://www.datatracker.YUPIQ/sites/default/files/product/ documents/Lmcn_Jnklh_Qxekukad_Lelf_YIZL-XfQ-8.pdfPerforming Laboratory:[facility], [place] [address]HIY-Zmmrmyc meter 2019-12-19 07:30:00 Test Item Value Reference Range Interpretation Comments POC-Glucose Meter (test 121 mg/dL 70-110 H : TE STED AT [facility] code = 1538) [address] [facility], [address]: Actuarial Internship/Techni rigoberto ID = [id number] for YESSI VERGARA Lab Interpretation (test Abnormal code = 02102-8) [facility] [id number] 07:30:00 Test Item Value Reference Range Interpretation Comments POC-GLUCOSE METER 121 mg/dL 70-110 H : TESTED A T [facility] [address] (BEAKER) (test code = HAYDEN R [facility], 1538) [address]: Actuarial Internship/Techni rigoberto ID = [id number] for YESSI BROWN Basic Metabolic [id number] 07:06:00 Test Item Value Reference Range Interpretation Comments Sodium (test code = 140 meq/L 822-725 5347-2) Potassium (test code = 3.7 meq/L 3.5-5.1 2823-3) Chloride (test code = 109 meq/L 98-107 H 2075-0) CO2 (test code = 25 meq/L 22-29 2028-9) BUN (test code = 20 mg/dL 7-21 3094-0) Creatinine (test code 1.29 mg/dL 0.57-1.25 H = 2160-0) Glucose (test code = 130 mg/dL 70-105 H 2345-7) Calcium (test code = 8.6 mg/dL 8.4-10.2 74167-7) EGFR (test code = 54 mL/min/1.73 [place] [address]-6) NOT ACCURATE CREATININE CLEARANCE IN PREDICTING GLOMERULAR FILTRATION RATE . ESTIMATED GFR I S NOT APPLICABLE FOR DIALYSIS PATIENTS. AMRITA (test code = AMRITA) Actuarial Internship ID - MARIELA Ortiz Lab Interpretation Abnormal (test code = 99963-9) [facility] Vista[facility]esium2020-11-12 07:06:00 Test Item Value Reference Range Interpretation Comments Magnesium (test code = 2.1 mg/dL 1.6-2.6 16092-6) AMRITA (test code = AMRITA) Actuarial Internship ID - MARIELA M Lab Interpretation (test Normal code = 16826-0) [facility] Vista[facility]osphorus2020-11-12 07:06:00 Test Item Value Reference Range Interpretation Comments Phosphorus (test code = 2.9 mg/dL 2.3-4.7 2777-1) AMRITA (test code = AMRITA) Actuarial Internship ID - MARIELA M Lab Interpretation (test Normal code = 20700-0) [facility] VistaBASIC METABOLIC [id number] 07:06:00 Test Item Value Reference Range Interpretation [...] S NOT APPLICABLE FOR DIALYSIS PATIEN TS. Actuarial Internship ID - MARIELA [id number] 07:06:00 Test Item Value Reference Range Interpretation Comments MAGNESIUM (BEAKER) (test code = 2.1 mg/dL 1.6-2.6 627) Actuarial Internship ID - MARIELA [id number] 07:06:00 Test Item Value Reference Range Interpretation Comments PHOSPHORUS (BEAKER) (test code = 2.9 mg/dL 2.3-4.7 604) Actuarial Internship ID - MARIELA [facility] (hemogram only)2019-12-19 05:34:00 Test Item Value Reference [...] K/CU MM L MPV (test code = 80670-1) 10.6 fL 9.4-12.4 nRBC (test code = 413) 0 0- 0 /100 WBC Lab Interpretation (test code = Abnormal 91846-4) [facility] (HEMOGRAM ONLY)2019-12-19 05:34:00 Test Item Value [...] 0-0 (BEAKER) (test code = 413) POCT-GLUCOSE [id number] 21:12:00 Test Item Value Reference Range Interpretation Comments POC-GLUCOSE METER 144 mg/dL 70-110 H : TESTED A T [facility] [address] (BEAKER) (test code = [facility], 1538) [address]: Actuarial Internship/Techni rigoberto ID = [id number] for CESAR FIORE POCT-GLUCOSE [id number] 17:08:00 Test Item Value Reference Range Interpretation Comments POC-GLUCOSE METER 104 mg/dL 70-110 : TESTED A T [facility] [address] (BEAKER) (test code = [facility], 1538) [address]: Actuarial Internship/Techni rigoberto ID = [id number] for PETEY RIVAS POCT-GLUCOSE [id number] 11:28:00 Test Item Value Reference Range Interpretation Comments POC-GLUCOSE METER 172 mg/dL 70-110 H : TESTED A T [facility] [address] (BEAKER) (test code = [facility], 1538) [address]: Actuarial Internship/Techni rigoberto ID = [id number] for PETEY RIVAS POCT-GLUCOSE [id number] 07:50:00 Test Item Value Reference Range Interpretation Comments POC-GLUCOSE METER 123 mg/dL 70-110 H : TESTED A T [facility] [address] (BEAKER) (test code = [facility], [facility]8) [address]: Actuarial Internship/Techni rigoberto ID = [id number] for PETEY RIVAS BASIC METABOLIC [id number] 06:58:00 Test Item Value Reference Range Interpretation [...] S NOT APPLICABLE FOR DIALYSIS PATIEN TS. Actuarial Internship ID - [id number] 06:58:00 Test Item Value Reference Range Interpretation Comments MAGNESIUM (BEAKER) (test code = 2.1 mg/dL 1.6-2.6 627) Actuarial Internship ID - [id number] 06:58:00 Test Item Value Reference Range Interpretation Comments PHOSPHORUS (BEAKER) (test code = 2.5 mg/dL 2.3-4.7 604) Actuarial Internship ID - EDASICBC (HEMOGRAM ONLY)2019-12-18 06:28:00 Test [...] 0-0 (BEAKER) (test code = 413) POCT-GLUCOSE [id number] 21:37:00 Test Item Value Reference Range Interpretation Comments POC-GLUCOSE METER 145 mg/dL 70-110 H : TESTED A T [facility] [address] (BEAKER) (test code = [facility], 153) [address]: Actuarial Internship/Techni rigoberto ID = [id number] for CESAR FIORE POCT-GLUCOSE [id number] 16:17:00 Test Item Value Reference Range Interpretation Comments POC-GLUCOSE METER 154 mg/dL 70-110 H : TESTED A T [facility] [address] (BEAKER) (test code = [facility], 153) [address]: Actuarial Internship/Techni rigoberto ID = [id number] for WI LLIA, TYNEKA POCT-GLUCOSE [id number] 12:11:00 Test Item Value Reference Range Interpretation Comments POC-GLUCOSE METER 150 mg/dL 70-110 H : TESTED A T [facility] [address] (BEAKER) (test code = [facility], 153) [address]: Actuarial Internship/Techni rigoberto ID = [id number] for WI LLIA, TYNEKA POCT-GLUCOSE [id number] 08:07:00 Test Item Value Reference Range Interpretation Comments POC-GLUCOSE METER 132 mg/dL 70-110 H : TESTED A T [facility] [address] (BEAKER) (test code = [facility], 153) [address]: Actuarial Internship/Techni rigoberto ID = [id number] for WI LLIAMS, TYNEKA BASIC METABOLIC [id number] 06:38:00 Test Item Value Reference Range Interpretation [...] S NOT APPLICABLE FOR DIALYSIS PATIEN TS. Actuarial Internship ID - [id number] 06:38:00 Test Item Value Reference Range Interpretation Comments MAGNESIUM (BEAKER) (test code = 2.0 mg/dL 1.6-2.6 627) Actuarial Internship ID - [id number] 06:38:00 Test Item Value Reference Range Interpretation Comments PHOSPHORUS (BEAKER) (test code = 1.9 mg/dL 2.3-4.7 L 604) Actuarial Internship ID - EDASICBC (HEMOGRAM ONLY)2019-12-17 06:07:00 Test [...] 0-0 (BEAKER) (test code = 413) POCT-GLUCOSE [id number] 21:27:00 Test Item Value Reference Range Interpretation Comments POC-GLUCOSE METER 172 mg/dL 70-110 H : TESTED A T [facility] [address] (BEAKER) (test code = [facility], 1538) [address]: Actuarial Internship/Techni rigoberto ID = [id number] for ANGELINE MCDANIELS SE POCT-GLUCOSE [id number] 16:32:00 Test Item Value Reference Range Interpretation Comments POC-GLUCOSE METER 171 mg/dL 70-110 H : TESTED A T [facility] [address] (BEAKER) (test code = [facility], 1538) [address]: Actuarial Internship/Techni rigoberto ID = [id number] for [place] LLIAMS, TYNEKA POCT-GLUCOSE [id number] 12:16:00 Test Item Value Reference Range Interpretation Comments POC-GLUCOSE METER 157 mg/dL 70-110 H : TESTED A T [facility] [address] (BEAKER) (test code = [facility], 1538) [address]: Actuarial Internship/Techni rigoberto ID = [id number] for [place] LLIAMS, TYNEKA [id number] 11:13:00 Test Item Value Reference Range Interpretation Comments ACTIVATED CLOTTING TIME 120 sec : 74 -137 seconds, (BEAKER) (test code = Singh ne: TESTED AT 441) [facility] [address] [facility], [address]: Actuarial Internship/Techni rigoberto ID = [id number] for PABLO ROGERS N [id number] 11:13:00 Test Item Value Reference Range Interpretation Comments ACTIVATED CLOTTING TIME 268 sec : 74 -137 seconds, (BEAKER) (test code = Singh ne: TESTED AT 441) [facility] [address] [facility], [address]: Actuarial Internship/Techni rigoberto ID = [id number] for CA STRO, JUVE [id number] 11:13:00 Test Item Value Reference Range Interpretation Comments ACTIVATED CLOTTING TIME 230 sec : 74 -137 seconds, (BEAKER) (test code = Singh ne: TESTED AT 441) [facility] [address] [place], [address]: Actuarial Internship/Techni rigoberto ID = [id number] for CA JUVE CHAMORRO Urine [id number] 09:17:00 Test Item Value Reference Range Interpretation Comments Result (test code = 6463-4) No growth [facility] [id number] 07:57:00 Test Item Value Reference Range Interpretation Comments POC-GLUCOSE METER 126 mg/dL 70-110 H : TESTED A T [facility] [address] (BEAKER) (test code = [place], 1538) [address]: Actuarial Internship/Techni rigoberto ID = [id number] for WI ZOYA HERR [id number] 06:40:00 Test Item Value Reference Range Interpretation Comments MAGNESIUM (BEAKER) (test code = 1.9 mg/dL 1.6-2.6 627) Actuarial Internship ID - MARIELA [id number] 06:40:00 Test Item Value Reference Range Interpretation Comments PHOSPHORUS (BEAKER) (test code = 1.6 mg/dL 2.3-4.7 L 604) Actuarial Internship ID - MARIELA MBASIC METABOLIC [id number] 06:40:00 Test Item Value Reference Range Interpretation [...] S NOT APPLICABLE FOR DIALYSIS PATIEN TS. Actuarial Internship ID - MARIELA MSpecimen slightly [id number] 06:06:00 Test Item Value Reference Range Interpretation Comments PTT (test code = 74579-0) 39.6 22.5- 36.0 seconds H Lab Interpretation (test code = Abnormal 25610-5) [facility] 06:06:00 Test Item Value Reference Range Interpretation [...] 0-0 (BEAKER) (test code = 413) POCT-GLUCOSE [id number] 21:32:00 Test Item Value Reference Range Interpretation Comments POC-GLUCOSE METER 181 mg/dL 70-110 H : TESTED A T [facility] [address] (BEAKER) (test code = [place], 1538) [address]: Actuarial Internship/Techni rigoberto ID = [id number] for ANGELINE MCDANIELS SE [id number] 05:46:00 Test Item Value Reference Range Interpretation Comments MAGNESIUM (BEAKER) (test code = 2.1 mg/dL 1.6-2.6 627) Actuarial Internship ID - MARIELA [id number] 05:46:00 Test Item Value Reference Range Interpretation Comments PHOSPHORUS (BEAKER) (test code = 2.2 mg/dL 2.3-4.7 L 604) Actuarial Internship ID - MARIELA MBASIC METABOLIC [id number] 05:46:00 Test Item Value Reference Range Interpretation [...] S NOT APPLICABLE FOR DIALYSIS PATIEN TS. Actuarial Internship ID - MARIELA MSpecimen slightly [id number] 05:09:00 Test Item Value Reference Range Interpretation [...] 0-0 (BEAKER) (test code = 413) Prepare [id number] 23:54:00 Test Item Value Reference Range Interpretation Comments Unit ABO (test code = A Pos 3745091) UNIT NUMBER (test code = [id number] 934-0) Status (test code = 2637617) WORK IN PROGRESS Blood Bank Product (test RED BLOOD CELLS code = 2263) PRODUCT CODE (test code = E4264U53 933-2) CROSSMATCH (test code = INCOMPATIBLE 2264) [facility] [id number] 22:46:00 Test Item Value Reference Range Interpretation Comments POC-GLUCOSE METER 169 mg/dL 70-110 H : TESTED A T [facility] [address] (BEAKER) (test code = HAYDEN [place], 1538) [address]: Actuarial Internship/Techni rigoberto ID = [id number] for Myesha Ellis [id number] 21:21:00 Test Item Value Reference Range Interpretation Comments PARTIAL THROMBOPLASTIN TIME 77.7 seconds 22.5-36.0 H (BEAKER) (test code = 760) POCT-GLUCOSE [id number] 18:17:00 Test Item Value Reference Range Interpretation Comments POC-GLUCOSE METER 150 mg/dL 70-110 H : TESTED A T [facility] [address] (BEAKER) (test code = JOEYEVAN Liane [place], 1538) [address]: Actuarial Internship/Techni rigoberto ID = [id number] for Shawna Lemus [id number] 15:04:00 Test Item Value Reference Range Interpretation Comments PARTIAL THROMBOPLASTIN TIME 77.0 seconds 22.5-36.0 H (BEAKER) (test code = 760) [id number] 14:33:00 Test Item Value Reference Range Interpretation Comments MAGNESIUM (BEAKER) 2.3 mg/dL 1.6-2.6 Specimen slightly (test code = 627) hemolyzed Actuarial Internship ID - HARJIT CBASIC METABOLIC [id number] 14:33:00 Test Item Value Reference Range Interpretation [...] S NOT APPLICABLE FOR DIALYSIS PATIEN TS. Actuarial Internship ID - HARJIT CSpecimen moderately ictericPOCT-GLUCOSE [id number] 13:59:00 Test Item Value Reference Range Interpretation Comments POC-GLUCOSE METER 246 mg/dL 70-110 H : TESTED A T [facility] 6720 (BEAKER) (test code = JOEYEVAN L[place], 1538) [address]: Actuarial Internship/Techni rigoberto ID = [id number] for CASEY SANFORD Arterial doppler legs [id number] 09:47:08Ejection [facility] ECHO HEARTLAB MKCKESSON CPACSRight Impression1. The common [...] + + + + + + !Prox MUSIC INSTRUCTOR ! !143 ! ! ! !0 ! ! ! + + + + + + + + + + !Mid MUSIC INSTRUCTOR ! !23.6 ! ! ! !0 ! ! ! + + + + + + + + + + !Dist MUSIC INSTRUCTOR ! !0 ! ! ! !0 ! [...] MARIN Date of Study 12/13/2019 DEBORAH III [id number] Age 74 Visit Number [id number] GenderMale Accession Number [id number] Date of 1945 Referring Oneil hernandez Room Number 2C20 Physician Director Mortgage Cm Anderson RVS Interpreting Cyndi Pastor RVT [...] + + + + + + !Prox MUSIC INSTRUCTOR ! !143 ! ! ! !0 ! ! ! + + + + + + + + + + !Mid MUSIC INSTRUCTOR ! !23.6 ! ! ! !0 !! ! + + +--------- + + + + + + + !Dist MUSIC INSTRUCTOR ! !0 ! ! ! !0 ! [...] + + + + + + !Prox Radha ! !62.1 ! ! ! !0 ! ! ! + + + + + + + -----+ + + !Mid Peroneal ! !46.6 ! ! ! !0 ! ! ! + + + + + + + + + + !Dist Peroneal !!73.3 ! ! ! !0 ! ! ! + + +------ + + + + + + +[facility](Ankle/Brachial [facility])2019-12-14 09:46:50Ejection FractionSLE ECHO HEARTLAB MKCKESSON CPACSRight Impression1. The posterior [...] 12/13/2019 DEBORAH III Age 74 Visit Number [id number] Gender Male Accession Number [id number] Date of 1945 Referring delano sierra Room Number 2C20 Physician Director Mortgage Cm Anderson RVS Interpreting Cyndi Pastor RVT [...] measured in cm/s ;Diameters are measured in [facility] [id number] 09:12:00 Test Item Value Reference Range Interpretation Comments POC-GLUCOSE METER 161 mg/dL 70-110 H : TESTED A T [facility] 6720 (MAREK) (test code = HAYDEN [place], 1538) [address]: Actuarial Internship/Techni rigoberto ID = [id number] for JAMES OSBORNE RAD, CHEST, 1 VIEW, NON [id number] 08:16:00Reason for exam:->post-extubationShould this be performed at the bedside?->Yes [facility] 1945 Sex: MFINAL REPORT [...] Almendarez Verified Date/Time: 12/14/2019 08:16:23 Reading Location: [address] Body Reading Room XR chest 1 view portable / [id number] 08:16:00 Interface, External Ris In - 12/14/2019 [...] Verified Date /Time: 12/14/2019 08:16:23 Reading Location: [facility] C0[facility]00 Test Item Value Reference Range Interpretation Comments PARTIAL THROMBOPLASTIN TIME 62.4 seconds 22.5-36.0 H (BEAKER) (test code = 760) [id number] 05:48:00 Test Item Value Reference Range Interpretation Comments PARTIAL THROMBOPLASTIN TIME 148.8 seconds 22.5-36.0 H (BEAKER) (test code = 760) Blood gas, [id number] 05:30:00 Test Item Value Reference Range Interpretation Comments pH, Arterial (test code = 2744-1) 7.39 7.35-7.45 pCO2, Arterial (test code = 36 35- 45 mm Hg 2018-09) pO2, Arterial (test code = 112 80- 90 mm Hg H 2703-7) O2 Sat, Arterial (test code = 97.8 % 96-97 H 2708-6) HCO3, Arterial (test code = 21 mmol/L 21-29 1960-4) Base Excess, Arterial (test code -3.4 mmol/L -2-3 L = 1925-7) Patient Temperature (test code = 38.4 8310-5) FIO2 (test code = 1819) 60 Lab Interpretation (test code = Abnormal 66034-8) [facility] [id number] 05:30:00 Test Item Value Reference Range Interpretation [...] WBC 0-0 (BEAKER) (test code = 413) [id number] 04:00:00 Test Item Value Reference Range Interpretation Comments MAGNESIUM (BEAKER) (test code = 2.3 mg/dL 1.6-2.6 627) Actuarial Internship ID - [id number] 04:00:00 Test Item Value Reference Range Interpretation Comments PHOSPHORUS (BEAKER) (test code = 3.4 mg/dL 2.3-4.7 604) Actuarial Internship ID - EDASIBASIC METABOLIC [id number] 04:00:00 Test Item Value Reference Range Interpretation [...] S NOT APPLICABLE FOR DIALYSIS PATIEN TS. Actuarial Internship ID - EDASISpecimen elliott ictericRAD, CHEST, 1 VIEW, NON DEPT 2019-12-14 00:36:00Reason for exam:->Post-opShould this be performed at the bedside?->YesCHI [facility] : 1945 Sex: MFINAL REPORT [...] Vamsi Foster MDReport Verified Date/Time: 12/14/2019 00:36:00 [id number] 23:58:00 Test Item Value Reference Range Interpretation Comments PARTIAL THROMBOPLASTIN TIME 42.6 seconds 22.5-36.0 H (BEAKER) (test code = 760) BASIC METABOLIC [id number] 23:58:00 Test Item Value Reference Range Interpretation [...] S NOT APPLICABLE FOR DIALYSIS PATIEN TS. Actuarial Internship ID - [id number] 23:58:00 Test Item Value Reference Range Interpretation Comments MAGNESIUM (BEAKER) (test code = 2.6 mg/dL 1.6-2.6 627) Actuarial Internship ID - [id number] 23:58:00 Test Item Value Reference Range Interpretation Comments PHOSPHORUS (BEAKER) (test code = 4.1 mg/dL 2.3-4.7 604) Actuarial Internship ID - DBProthrombin time/[id number] 23:57:00 Test Item Value Reference Range Interpretation [...] valves. Lab Interpretation Abnormal (test code = 03978-5) [facility] VistaPROTHROMBIN TIME/[id number] 23:57:00 Test Item Value Reference Range Interpretation [...] 0-0 (BEAKER) (test code = 413) POCT-GLUCOSE [id number] 23:36:00 Test Item Value Reference Range Interpretation Comments POC-GLUCOSE METER 158 mg/dL 70-110 H : TESTED A T [facility] 6720 (BEAKER) (test code = HAYDEN Rob [facility], 1538) [address]: Actuarial Internship/Techni rigoberto ID = [id number] for LLA, HERON BLOOD GAS, [id number] 23:32:00 Test Item Value Reference Range Interpretation [...] (BEAKER) (test code = 1819) 60.0 Calcium, [id number] 23:30:00 Test Item Value Reference Range Interpretation Comments Calcium, Ion (test code = 1993-3) 1.20 mmol/L 1.12-1.27 pH, Blood (test code = 05337-6) 7.31 [facility] VistaCALCIUM, [id number] 23:30:00 Test Item Value Reference Range Interpretation Comments CALCIUM IONIZED (BEAKER) (test 1.20 mmol/L 1.12-1.27 code = 698) PH, BLOOD (BEAKER) (test code = 7.31 1810) [id number] 21:55:00 Test Item Value Reference Range Interpretation Comments ACTIVATED CLOTTING TIME 125 sec : 74 -137 seconds, (BEAKER) (test code = Baseli ne: TESTED AT 441) [facility] [address] [place] [address], 770 30: Actuarial Internship/Techni rigoberto ID = [id number] for LETHRIDGINA, HERNANDEZ CRUZ [id number] 21:55:00 Test Item Value Reference Range Interpretation Comments ACTIVATED CLOTTING TIME 235 sec : 74 -137 seconds, (BEAKER) (test code = Baseli ne: TESTED AT 441) [facility] 67[address] [facility], 770 30: Actuarial Internship/Techni rigoberto ID = [id number] for MARY GIBBS [id number] 21:55:00 Test Item Value Reference Range Interpretation Comments ACTIVATED CLOTTING TIME 241 sec : 74 -137 seconds, (BEAKER) (test code = Baseli ne: TESTED AT 441) [address], [facility] 30: Actuarial Internship/Techni rigoberto ID = [id number] for MARY GIBBS [id number] 21:55:00 Test Item Value Reference Range Interpretation Comments ACTIVATED CLOTTING TIME 241 sec : 74 -137 seconds, (BEAKER) (test code = Baseli ne: TESTED AT 441) [address], [facility] 30: Actuarial Internship/Techni rigoberto ID = [id number] for MARY GIBBS [id number] 21:55:00 Test Item Value Reference Range Interpretation Comments ACTIVATED CLOTTING TIME 246 sec : 74 -137 seconds, (BEAKER) (test code = Baseli ne: TESTED AT 441) [address], [facility] 30: Actuarial Internship/Techni rigoberto ID = [id number] for CA STRO, JUVE HGB/HCT (H&H)-Stat [id number] 20:53:00 Test Item Value Reference Range Interpretation Comments Hemoglobin (test code = 786-4) 10.1 13.0- 16.8 GM/DL L Hematocrit (test code = 4544-3) 30.0 % 40-50 L Lab Interpretation (test code = Abnormal 46926-8) [facility] VistaGlucose-Stat [id number] 20:53:00 Test Item Value Reference Range Interpretation Comments Glucose (test code = 2345-7) 138 mg/dL 70-110 H Lab Interpretation (test code = Abnormal 14194-1) [facility] [id number] 20:53:00 Test Item Value Reference Range Interpretation Comments Sodium (test code = 2951-2) 138 meq/L 136-145 Lab Interpretation (test code = Normal 50330-7) [facility] VistaPotassium-Stat [id number] 20:53:00 Test Item Value Reference Range Interpretation Comments Potassium (test code = 2823-3) 4.0 meq/L 3.6-5.5 Lab Interpretation (test code = Normal 24961-6) [facility] [id number] 20:53:00 Test Item Value Reference Range Interpretation Comments SODIUM (BEAKER) (test code = 381) 138 meq/L 136-145 POTASSIUM-STAT [id number] 20:53:00 Test Item Value Reference Range Interpretation Comments POTASSIUM (BEAKER) (test code = 4.0 meq/L 3.6-5.5 379) CALCIUM, [id number] 20:53:00 Test Item Value Reference Range Interpretation Comments CALCIUM IONIZED (BEAKER) (test 1.16 mmol/L 1.12-1.27 code = 698) PH, BLOOD (BEAKER) (test code = 7.34 1810) BLOOD GAS, [id number] 20:53:00 Test Item Value Reference Range Interpretation [...] (BEAKER) (test code = 1819) 60.0 GLUCOSE-STAT [id number] 20:53:00 Test Item Value Reference Range Interpretation Comments GLUCOSE RANDOM (BEAKER) (test code 138 mg/dL 70-110 H = 652) HGB/HCT (H&H) - STAT [id number] 20:53:00 Test Item Value Reference Range Interpretation Comments HEMOGLOBIN (BEAKER) (test code = 10.1 GM/DL 13.0-16.8 L 410) HEMATOCRIT (BEAKER) (test code = 30.0 % 40.0-50.0 L 411) CALCIUM, [id number] 19:44:00 Test Item Value Reference Range Interpretation Comments CALCIUM IONIZED (BEAKER) (test 1.20 mmol/L 1.12-1.27 code = 698) PH, BLOOD (BEAKER) (test code = 7.36 1810) SODIUM NA-STAT [id number] 19:43:00 Test Item Value Reference Range Interpretation Comments SODIUM (BEAKER) (test code = 381) 138 meq/L 136-145 POTASSIUM-STAT [id number] 19:43:00 Test Item Value Reference Range Interpretation Comments POTASSIUM (BEAKER) (test code = 3.6 meq/L 3.6-5.5 379) BLOOD GAS, [id number] 19:43:00 Test Item Value Reference Range Interpretation [...] (BEAKER) (test code = 1819) 60.0 GLUCOSE-STAT [id number] 19:43:00 Test Item Value Reference Range Interpretation Comments GLUCOSE RANDOM (BEAKER) (test code 125 mg/dL 70-110 H = 652) HGB/HCT (H&H) - STAT [id number] 19:43:00 Test Item Value Reference Range Interpretation Comments HEMOGLOBIN (BEAKER) (test code = 6.4 GM/DL 13.0-16.8 L 410) HEMATOCRIT (BEAKER) (test code = 19.0 % 40.0-50.0 L 411) Lactic Acid, [id number] 18:50:00 Test Item Value Reference Range Interpretation Comments Lactate, Art (test code = 0.7 mmol/L 0.5-2.2 9824) AMRITA (test code = AMRITA) Actuarial Internship ID - BS Lab Interpretation (test Normal code = 14107-8) [facility] VistaLACTIC ACID, [id number] 18:50:00 Test Item Value Reference Range Interpretation Comments LACTATE BLOOD ARTERIAL (2) 0.7 mmol/L 0.5-2.2 (BEAKER) (test code = 2874) Actuarial Internship ID - BSCALCIUM, [id number] 18:29:00 Test Item Value Reference Range Interpretation Comments CALCIUM IONIZED (BEAKER) (test 1.07 mmol/L 1.12-1.27 L code = 698) PH, BLOOD (BEAKER) (test code = 7.31 1810) BLOOD GAS, [id number] 18:29:00 Test Item Value Reference Range Interpretation [...] (BEAKER) (test code = 1819) 68.0 POTASSIUM-STAT [id number] 18:29:00 Test Item Value Reference Range Interpretation Comments POTASSIUM (BEAKER) (test code = 3.4 meq/L 3.6-5.5 L 379) GLUCOSE-STAT [id number] 18:29:00 Test Item Value Reference Range Interpretation Comments GLUCOSE RANDOM (BEAKER) (test code 138 mg/dL 70-110 H = 652) HGB/HCT (H&H) - STAT [id number] 18:29:00 Test Item Value Reference Range Interpretation Comments HEMOGLOBIN (BEAKER) (test code = 8.9 GM/DL 13.0-16.8 L 410) HEMATOCRIT (BEAKER) (test code = 26.0 % 40.0-50.0 L 411) SODIUM NA-STAT [id number] 18:28:00 Test Item Value Reference Range Interpretation Comments SODIUM (BEAKER) (test code = 381) 138 meq/L 136-145 Manual [id number] 14:30:00 Test Item Value Reference Range Interpretation [...] = 486) AMRITA (test code = AMRITA) Actuarial Internship ID - [id number] Lab Interpretation (test Abnormal code = 32096-0) [facility] with platelet count + manual [id number] 14:30:00 Test Item Value Reference Range Interpretation [...] 450 K/CU MM MPV (test code = 71905-8) 10.1 fL 9.4-12.4 nRBC (test code = 413) 0 0- 0 /100 WBC Lab Interpretation (test code = Abnormal 47115-8) [facility] WITH PLATELET COUNT + MANUAL [id number] 14:30:00 Test Item Value Reference Range Interpretation [...] MORPHOLOGY (BEAKER) (test code Normal = 486) Actuarial Internship ID - [id number] with platelet count + automated [id number] 13:53:00 Test Item Value Reference Range Interpretation [...] 450 K/CU MM MPV (test code = 62903-0) 10.4 fL 9.4-12.4 nRBC (test code = 413) 0 0- 0 /100 WBC Lab Interpretation (test code = Abnormal 46549-9) [facility] W/PLT COUNT & AUTO [id number] 13:53:00 Test Item Value Reference Range Interpretation [...] (BEAKER) (test code = 413) BASIC METABOLIC [id number] 12:20:00 Test Item Value Reference Range Interpretation [...] S NOT APPLICABLE FOR DIALYSIS PATIEN TS. Actuarial Internship ID - TI [id number] 12:20:00 Test Item Value Reference Range Interpretation Comments MAGNESIUM (BEAKER) (test code = 1.9 mg/dL 1.6-2.6 627) Actuarial Internship ID - TI [id number] 12:20:00 Test Item Value Reference Range Interpretation Comments PHOSPHORUS (BEAKER) (test code = 3.8 mg/dL 2.3-4.7 604) Actuarial Internship ID - TI [id number] 12:02:00 Test Item Value Reference Range Interpretation Comments PARTIAL THROMBOPLASTIN TIME 36.1 seconds 22.5-36.0 H (BEAKER) (test code = 760) PROTHROMBIN TIME/[id number] 12:01:00 Test Item Value Reference Range Interpretation [...] mechanical heart valves.Urinalysis w/Microscopic + Reflex to [id number] 11:56:00 Test Item Value Reference Range Interpretation Comments Color, UA (test code = Light Yellow 5778-6) Clarity, UA (test code = Cloudy 5767-9) Specific Avant, UA (test 1.036 1.001-1.035 H code = 5811-5) pH, UA (test code = 6.0 5.0-8.0 5803-2) Protein, UA (test code = 30 mg/dL Negative A 85027-9) Glucose, UA (test code = Negative Negative 365) Ketones, UA (test code = Negative Negative 2514-8) Bilirubin, UA (test code = Negative Negative 85426-2) Blood, UA (test code = Small Negative A 17101-4) Nitrite, UA (test code = Negative Negative 5802-4) Leukocytes, UA (test code Large Negative A = 5799-2) Urobilinogen, UA (test 0.2 mg/dL 0.2-1 code = 74783-3) RBC, UA (test code = 18 /HPF 79541-5) WBC, UA (test code = 769 /HPF 5821-4) Bacteria, UA (test code = Rare 12879-6) Specimen Source (test code = 2795) AMRITA (test code = AMRITA) Actuarial Internship ID - [auto]Actuarial Internship ID - tech Lab Interpretation (test Abnormal code = 11951-5) [facility]UR[facility]ALYS[facility] W/ REFLEX URINE [id number] 11:56:00 Test Item Value Reference Range Interpretation [...] Rare 517) SOURCE(BEAKER) (test code = 2795) Actuarial Internship ID - [auto]Actuarial Internship ID - techKINJAL, CHEST, 1 VIEW, NON [id number] 11:28:00Reason for exam:->Post-opShould this be performed at the bedside?->YesCHI [facility]ITALName: [facility] : 1945 Sex: MFINAL REPORT CLINICAL HISTORY: Post-op TECHNIQUE: 1 view of the chest. COMPARISON: 12/11/2019 IMPRESSION: There are new mildly prominent lung markings in the right upper lung and bilateral lower lung zones. There are no significant appearing pleural effusions. The cardiomediastinal silhouette is magnified by technique. Signed: [facility] Verified Date/Time: 12/13/2019 11:28:43 Reading Location: [facility] Radiology Reading Room SODIUM NA- STAT [id number] 08:38:00 Test Item Value Reference Range Interpretation Comments SODIUM (BEAKER) (test code = 381) 138 meq/L 136-145 CALCIUM, [id number] 08:38:00 Test Item Value Reference Range Interpretation Comments CALCIUM IONIZED (BEAKER) (test 1.10 mmol/L 1.12-1.27 L code = 698) PH, BLOOD (BEAKER) (test code = 7.41 1810) BLOOD GAS, [id number] 08:38:00 Test Item Value Reference Range Interpretation [...] (BEAKER) (test code = 1819) 50.0 POTASSIUM-STAT [id number] 08:38:00 Test Item Value Reference Range Interpretation Comments POTASSIUM (BEAKER) (test code = 3.2 meq/L 3.6-5.5 L 379) GLUCOSE-STAT [id number] 08:38:00 Test Item Value Reference Range Interpretation Comments GLUCOSE RANDOM (BEAKER) (test code 148 mg/dL 70-110 H = 652) HGB/HCT (H&H) - STAT [id number] 08:38:00 Test Item Value Reference Range Interpretation Comments HEMOGLOBIN (BEAKER) (test code = 9.0 GM/DL 13.0-16.8 L 410) HEMATOCRIT (BEAKER) (test code = 26.0 % 40.0-50.0 L 411) Hemoglobin [id number] 08:26:00 Test Item Value Reference Range Interpretation Comments Hemoglobin A1C (test 5.2 % 4.3-6.1 code = 4548-4) AMRITA (test code = AMRITA) Please recheckPlease recheck Lab Interpretation Normal (test code = 24360-0) [facility] VistaHEMOGLOBIN [id number] 08:26:00 Test Item Value Reference Range Interpretation Comments HEMOGLOBIN A1C (BEAKER) (test code = 5.2 % 4.3-6.1 368) Please recheckPlease recheckBASIC METABOLIC [id number] 05:01:00 Test Item Value Reference Range Interpretation [...] S NOT APPLICABLE FOR DIALYSIS PATIEN TS. Actuarial Internship ID - [id number] 05:01:00 Test Item Value Reference Range Interpretation Comments MAGNESIUM (BEAKER) (test code = 2.0 mg/dL 1.6-2.6 627) Actuarial Internship ID - [id number] 05:01:00 Test Item Value Reference Range Interpretation Comments PHOSPHORUS (BEAKER) (test code = 3.8 mg/dL 2.3-4.7 604) Actuarial Internship ID - EDASIPOCT-GLUCOSE DOOTN7307-73-41 21:38:00 Test Item Value Reference Range Interpretation Comments POC-GLUCOSE METER 216 mg/dL 70-110 H : TESTED A T [facility] 6720 (BEAKER) (test code = HAYDEN LEON [place], 1538) [address]: Actuarial Internship/Techni rigoberto ID = [id number] for Re yes, Sairy PROTHROMBIN TIME/[id number] 19:09:00 Test Item Value Reference Range Interpretation [...] for patients wiht mechanical heart valves.BASIC METABOLIC [id number] 17:03:00 Test Item Value Reference Range Interpretation [...] S NOT APPLICABLE FOR DIALYSIS PATIEN TS. Actuarial Internship ID - BSPOCT-GLUCOSE [id number] 16:54:00 Test Item Value Reference Range Interpretation Comments POC-GLUCOSE METER 125 mg/dL 70-110 H : TESTED A T [facility] 6720 (BEAKER) (test code = HAYDEN Rob [facility], 1538) [address]: Actuarial Internship/Techni rigoberto ID = [id number] for PHYLLIS FIORE Carotid doppler [id number] 07:51:37Ejection FractionSLE ECHO HEARTLAB MKCKESSON CPACSRight Impression1. [...] 12/11/2019 DEBORAH III Age 74 Visit Number [id number] Gender Male Accession Number [id number] Date of 1945 Referring Casey Lo NP Room Number Physician Director Mortgage Peter Forbes T Interpreting Caryl Gao, Physician [...] + + - Additional Measurements:ICAPSV/CCAPSV 0.85.ICAEDV/CCAEDV 0.94.[facility] ([facility])2019-12-11 21:52:00 Test Item Value Reference Range Interpretation Comments SARS-COV2/RT-PCR (test Negative Not Detected, Negative, code = 4204276) See external report for linked test SARS-COV-2 PERFORMING LAB [facility] GENEVIEVE (test code = 6309224) Negative result for this test determines that [...] the Bazzi SARS-CoV-2 assay.Fact Sheet for Healthcare Providers:https://www.[employer].bazzi/nicky/ KV_PJXG-LwR-6_TML_Cdeb_Kyncl_45-295085.pdfFact Sheet for Healthcare Patients:https://www.[employer].ab hoang/nicky/[place]_OJYM-PvU-8_Skeyvzj_Pize_Qukeq_YM_40-563758A9.pdfPerforming Laboratory:[facility] [place] [address] Hepatitis B [id number] 19:59:00 Test Item Value Reference Range Interpretation Comments Hep B Core Total Ab (test Nonreactive Nonreactive code = 21767-1) Hep B S Ab (test code = <8.0 <8.0 mIU/mL 15253-4) HBsAg Screen (test code = Nonreactive Nonreactive 5195-3) AMRITA (test code = AMRITA) Actuarial Internship ID - ADMIN Lab Interpretation (test Normal code = 54728-2) [facility] VistaHEPATITIS B [id number] 19:59:00 Test Item Value Reference Range Interpretation Comments HEPATITIS B CORE TOTAL ANTIBODY Nonreactive Nonreactive (BEAKER) (test code = 497) HEPATITIS B SURFACE ANTIBODY < mIU/mL <8.0 (BEAKER) (test code = 647) HEPATITIS B SURFACE ANTIGEN (2) Nonreactive Nonreactive (BEAKER) (test code = 2585) Actuarial Internship ID - ADMINHEMOGLOBIN [id number] 19:58:00 Test Item Value Reference Range Interpretation Comments HEMOGLOBIN A1C (BEAKER) (test code = 5.5 % 4.3-6.1 368) Received comment: User comments: Slide comments: Received comment: User comments: Slide comments:Hepatitis C [id number] 19:52:00 Test Item Value Reference Range Interpretation Comments Hepatitis C Ab (test code Nonreactive Nonreactive = 70162-9) AMRITA (test code = AMRITA) Actuarial Internship ID - ADMIN Lab Interpretation (test Normal code = 33852-0) [facility] VistaHIV-1 Antigen with HIV-1/2 Juazghyv1723-03-17 19:52:00 Test Item Value Reference Range Interpretation Comments HIV-1 Antigen with HIV Nonreactive Nonreactive 1&2 Antibody (test code = 57797-1) AMRITA (test code = AMRITA) Actuarial Internship ID - ADMIN Lab Interpretation (test Normal code = 93177-2) [facility] VistaHEPATITIS C [id number] 19:52:00 Test Item Value Reference Range Interpretation Comments HEPATITIS C ANTIBODY (BEAKER) Nonreactive Nonreactive (test code = 367) Actuarial Internship ID - ADMINHIV-1 ANTIGEN WITH HIV-1/2 [id number] 19:52:00 Test Item Value Reference Range Interpretation Comments HIV-1 ANTIGEN WITH HIV 1\\T\\2 Nonreactive Nonreactive ANTIBODY (2) (BEAKER) (test code = 2586) Actuarial Internship ID - ADMINAntibody hlsdldmhfeyedg0152-96-53 16:23:00 Test Item Value Reference Range Interpretation Comments ANTIBODY ID UNID IgGWARM (BEAKER) (test AUTO AB code = 2253) Antibody Consult SIGNED OUT Warm vitaliy lópez (test code = detected, ok to 2479) transfuse incom patible bloodElectronic Signature: Radhika Woo M.D. [facility](CELLAVISION MANUAL DIFF)2019-12-11 15:57:00 Test Item Value Reference [...] CONCENTRATION Adequate (CELLAVISION)(BEAKER) (test code = 3438) Actuarial Internship ID - [place] comments: Slide comments:CBC W/PLT COUNT & AUTO [id number] 15:28:00 Test Item Value Reference Range Interpretation [...] (test code = 413) Type and screen, [id number] 14:53:00 Test Item Value Reference Range Interpretation Comments ABO/RH AUTOMATED (BEAKER) (test A POSITIVE code = 2260) Ab Scrn (test code = 890-4) POSITIVE echo 1 [facility] VistaDirect AHG (GARTH)/Direct [id number] 14:08:00 Test Item Value Reference Range Interpretation Comments Direct AHG-IGG (test code = 1006-6) POSITIVE 4+ Direct AHG-C3B, C3D (test code = POSITIVE Micro+ 1003-3) [facility] VistaRAD, CHEST, 2 [id number] 13:32:00Reason for Exam:->pre-opADVENTIST HEALTH VALLEJOName: DUKE MARIN : 1945 Sex: MFINAL REPORT PA and Lateral views of the chest dated 12/11/2019 Clinical information: pre-op Comment: Heart is normal in size. Thoracic aorta is ectatic. Pulmonary vasculature is unremarkable. Lungs are clear. No pulmonary infiltrate or pleural effusion is present.Impression: No active cardiopulmonary disease. Signed: Vamsi Johns Verified Date/Time: 05/2019 13:32:39 Reading Location: [facility] Radiology Reading Room XR chest 2 [id number] 13:32:00Interface, External Ris In - 12/11/2019 1:34 PM CSTFINAL REPORT PA and Lateral views of the chest dated 12/11/2019 Clinical information: pre-op Comment: Heart is normal in size. Thoracic aorta is ectatic. Pulmonary vasculature is unremarkable. Lungs are clear. No pulmonary infiltrate or pleural effusion is present. Impression: No active cardiopulmonary disease. Signed: Vamsi Johns Verified Date/Time: 12/11/2019 13:32:39 Reading Location: [facility] Radiology Reading Room [facility] METABOLIC [id number] 12:30:00 Test Item Value Reference Range Interpretation [...] S NOT APPLICABLE FOR DIALYSIS PATIEN TS. Actuarial Internship ID - VNLxyurqv4223-65-52 11:26:00 Test Item Value Reference Range Interpretation Comments Albumin (test code = 4.1 g/dL 3.5-5 77667-3) AMRITA (test code = AMRITA) Actuarial Internship ID - ADMIN Lab Interpretation (test Normal code = 36208-1) [facility] VistaAmylase2020-11-04 11:26:00 Test Item Value Reference Range Interpretation Comments Amylase (test code = 30 U/L 25-125 1798-8) AMRITA (test code = AMRITA) Actuarial Internship ID - ADMIN Lab Interpretation (test Normal code = 67616-2) [facility] VistaBilirubin, adult [id number] 11:26:00 Test Item Value Reference Range Interpretation Comments Total Bilirubin (test code 0.9 mg/dL 0.2-1.2 = 1975-2) AMRITA (test code = AMRITA) Actuarial Internship ID - ADMIN Lab Interpretation (test Normal code = 56301-7) [facility] VistaBilirubin, booshm6416-87-40 11:26:00 Test Item Value Reference Range Interpretation Comments Bilirubin, Direct (test 0.4 mg/dL 0.1-0.5 code = 1968-7) AMRITA (test code = AMRITA) Actuarial Internship ID - ADMIN Lab Interpretation (test Normal code = 11375-1) [facility] VistaLactate dehydrogenase (LDH)2019-12-11 11:26:00 Test Item Value Reference Range Interpretation Comments LDH (test code = 2532-0) 177 U/L 125-220 AMRITA (test code = AMRITA) Actuarial Internship ID - ADMIN Lab Interpretation (test Normal code = 19934-1) [facility] VistaLipase2020-11-04 11:26:00 Test Item Value Reference Range Interpretation Comments Lipase (test code = 22 U/L 8-78 3040-3) AMRITA (test code = AMRITA) Actuarial Internship ID - ADMIN Lab Interpretation (test Normal code = 37413-7) [facility] VistaAlkaline yydvszjvlss4959-38-95 11:26:00 Test Item Value Reference Range Interpretation Comments Alkaline Phosphatase (test 93 U/L 40-150 code = 6768-6) AMRITA (test code = AMRITA) Actuarial Internship ID - ADMIN Lab Interpretation (test Normal code = 52041-1) [facility] VistaProtein, [id number] 11:26:00 Test Item Value Reference Range Interpretation Comments Protein, Total (test code 6.1 6.0- 8.3 gm/dL = 2885-2) AMRITA (test code = AMRITA) Actuarial Internship ID - ADMIN Lab Interpretation (test Normal code = 19999-6) [facility] VistaAST (SGOT)2019-12-11 11:26:00 Test Item Value Reference Range Interpretation Comments AST (test code = 1920-8) 12 U/L 5-34 AMRITA (test code = AMRITA) Actuarial Internship ID - ADMIN Lab Interpretation (test Normal code = 42235-0) [facility] VistaALT (SGPT)2019-12-11 11:26:00 Test Item Value Reference Range Interpretation Comments ALT (test code = 1742-6) 12 U/L 6-55 AMRITA (test code = AMRITA) Actuarial Internship ID - ADMIN Lab Interpretation (test Normal code = 97502-7) [facility] VistaALKALINE [id number] 11:26:00 Test Item Value Reference Range Interpretation Comments ALKALINE PHOSPHATASE (BEAKER) (test 93 U/L 40-150 code = 346) Actuarial Internship ID - ADMINPROTEIN, [id number] 11:26:00 Test Item Value Reference Range Interpretation Comments TOTAL PROTEIN (BEAKER) (test code = 6.1 gm/dL 6.0-8.3 770) Actuarial Internship ID - ADMINAST (SGOT)2019-12-11 11:26:00 Test Item Value Reference Range Interpretation Comments AST (SGOT) (BEAKER) (test code = 353) 12 U/L 5-34 Actuarial Internship ID - ADMINALT (SGPT)2019-12-11 11:26:00 Test Item Value Reference Range Interpretation Comments ALT (SGPT) (BEAKER) (test code = 347) 12 U/L 6-55 Actuarial Internship ID - [id number] 11:26:00 Test Item Value Reference Range Interpretation Comments ALBUMIN (BEAKER) (test code = 1145) 4.1 g/dL 3.5-5.0 Actuarial Internship ID - [id number] 11:26:00 Test Item Value Reference Range Interpretation Comments AMYLASE (BEAKER) (test code = 349) 30 U/L 25-125 Actuarial Internship ID - ADMINBILIRUBIN, ADULT [id number] 11:26:00 Test Item Value Reference Range Interpretation Comments BILIRUBIN TOTAL (BEAKER) (test code 0.9 mg/dL 0.2-1.2 = 377) Actuarial Internship ID - ADMINBILIRUBIN, [id number] 11:26:00 Test Item Value Reference Range Interpretation Comments BILIRUBIN DIRECT (BEAKER) (test 0.4 mg/dL 0.1-0.5 code = 706) Actuarial Internship ID - ADMINLACTATE DEHYDROGENASE (LDH)2019-12-11 11:26:00 Test Item Value Reference Range Interpretation Comments LACTATE DEHYDROGENASE (BEAKER) (test 177 U/L 125-220 code = 635) Actuarial Internship ID - [id number] 11:26:00 Test Item Value Reference Range Interpretation Comments LIPASE (BEAKER) (test code = 749) 22 U/L 8-78 Actuarial Internship ID - ADMINUrinalysis w/Brfeejuatxg7560-43-26 11:18:00 Test Item Value Reference Range Interpretation Comments Color, UA (test code = Light Yellow 5778-6) Clarity, UA (test code = Hazy 5767-9) Specific Avant, UA (test 1.011 1.001-1.035 code = 5811-5) pH, UA (test code = 6.5 5.0-8.0 5803-2) Protein, UA (test code = 10 mg/dL Negative A 27059-4) Glucose, UA (test code = 1000 mg/dL Negative A 365) Ketones, UA (test code = Negative Negative 2514-8) Bilirubin, UA (test code = Negative Negative 13305-7) Blood, UA (test code = Small Negative A 39201-2) Nitrite, UA (test code = Negative Negative 5802-4) Leukocytes, UA (test code Large Negative A = 5799-2) Urobilinogen, UA (test 0.2 mg/dL 0.2-1 code = 61944-3) RBC, UA (test code = 4 /HPF 89375-0) WBC, UA (test code = 152 /HPF 5821-4) Mucus (test code = 8247-9) Rare Squam Epithel, UA (test <1 /HPF code = 13755-5) Specimen Source (test code = 2795) AMRITA (test code = AMRITA) Actuarial Internship ID - [auto]Actuarial Internship ID - tech Lab Interpretation (test Abnormal code = 25114-9) [facility]/ [id number] 11:18:00 Test Item Value Reference Range Interpretation [...] = 516) SOURCE(BEAKER) (test code = 2795) Actuarial Internship ID - [auto]Actuarial Internship ID - [id number] 11:14:00 Test Item Value Reference Range Interpretation Comments PARTIAL THROMBOPLASTIN TIME 32.6 seconds 22.5-36.0 (BEAKER) (test code = 760) PROTHROMBIN TIME/[id number] 11:13:00 Test Item Value Reference Range Interpretation [...] is2.5-3.5 for patients wiht mechanical heart valves.Reticulocyte [id number] 11:12:00 Test Item Value Reference Range Interpretation Comments % Retic (test code = 3.3 % 0.5-1.8 H 08208-3) AMRITA (test code = AMRITA) Actuarial Internship ID - [id number] Lab Interpretation (test Abnormal code = 03682-7) [facility] VistaRETICULOCYTE [id number] 11:12:00 Test Item Value Reference Range Interpretation Comments RETICULOCYTE COUNT PCT (BEAKER) (test 3.3 % 0.5-1.8 H code = 575) Actuarial Internship ID - [id number] Funct Lab Hpjcdekkyn1407-63-49 10:30:00Bianca Ly, COKEMAN, GAME TRAPPER 11/21/2019 12:31 [facility] PFT CHARTING REPORT Infection Control/Hand Hygiene procedures followed throughout the encounter with patient: YesPatient Identification Method: Patient name verified on armband, and Medical record on armband, Is the order complete?: Yes Account ID#: [id number] Name: Duke Marin IIIBirthdate: 1945 Age: 74 [...] and patient released from the lab without adverseoutcome.[facility] VistaCT, CTA, [id number] 14:08:00Part of CTA Chest, ABD and Pelvis [...] nonobstructing atherosclerotic changes throughout the abdominal aorta. Dollyman dimensions of the thoracic aorta are as [...] appear normal. The spleen is mildly enlarged, emczhxmwm94 cm in length in the craniocaudal dimension. [...] MDReport Verified Date/Time: 11/05/2019 14:08:15 Reading Location: [facility] Reading Room [address] [place] [address] CT, CTA, [id number] 14:08:00Unlisted Reason for Exam - Click Yes [...] nonobstructing atherosclerotic changes throughout the abdominal aorta. Dollyman dimensions of the thoracic aorta are as [...] appear normal. The spleen is mildly enlarged, rofgxebdn21 cm in length in the craniocaudal dimension. [...] MDReport Verified Date/Time: 11/05/2019 14:08:15 Reading Location: [facility] Reading Room [address] [place] [address] CT/CTA abdomen & pelvis - For [id number] 14:08:00Interface, External Ris In - 11/05/2019 2:10 PM CDTFINAL REPORT EXAM: CTA OFTHE THORACOABDOMINAL AORTA AND PELVIC ARTERIES INDICATION: AAA, monitoring COMPARISON: CT abdomen pelvis 08/10/2010, CT urogram to 08/25/2013, echocardiogram report 11/05/2019 TECHNIQUE: Multi-detector CT t counts [facility] Gated axial imaging of [...] nonobstructing atherosclerotic changes throughout the abdominal aorta. Dollyman dimensions of the thoracic aortaare as follows: [...] MDReport Verified Date/Time: 11/05/2019 14:08:15 Reading Location: [facility] [employer] Reading Room 3 - [place] [address] [facility] wjwtf9440-09-09 14:08:00Interface, External Ris In - 11/05/2019 2:10 [...] nonobstructing atherosclerotic changes throughout the abdominal aorta. Dollyman dimensions of the thoracic aortaare as follows: [...] MDReport Verified Date/Time: 11/05/2019 14:08:15 Reading Location: [facility] Reading Room [address] [place] [address] [facility]-Vmavpgymei1991-88-84 07:38:00 Test Item Value Reference Range Interpretation Comments POC-Creatinine (test code 1.7 mg/dL 0.6-1.3 H : TESTED AT [facility] = 1859) [address] [facility], [facility] [address]: Actuarial Internship/Techni rigoberto ID = [id number] for IRVIN LOMBARDI POC-EGFR (test code = 40 mL/min/1.73M2 1860) Lab Interpretation (test Abnormal code = 84260-9) [facility]-GPCGOGJMPB2371-33-73 07:38:00 Test Item Value Reference Range Interpretation Comments POC-CREATININE 1.7 mg/dL 0.6-1.3 H : TESTED AT [facility]) (test [address] [facility] code = 1859) A, [facility] 7 [address]: Actuarial Internship/Techni rigoberto ID = [id number] for IRVIN LOMBARDI POC-EGFR 40 mL/min/1.73M2 (BEAKER) (test code = 1860) TISSUE [id number] 14:55:00Surgical Pathology Report Case: [id number] Authorizing Provider: Brown Garcia MD Collected: 02/16/2018 1004 Ordering Location: [facility] PER[facility] Received: 02/16/2018 1117 SERVICES Pathologist: [...] CHRONIC INFLAMMATION Signing Pathologist Direct Phone Line: [phone] signed by Nicolas Diaz MD on 02/20/2018 at 2:55 [id number], [id number] X 2Malignant neoplasm of urinary bladder A. [...] = 13) 50-59,000 col/mL skin floraURINALYSIS W/ [id number] 18:16:00 Test Item Value Reference Range Interpretation [...] = Occasional 1585) SOURCE(BEAKER) (test code = 8485) CBC W/PLT COUNT & AUTO [id number] 17:52:00 Test Item Value Reference Range Interpretation [...] Received comment: User comments: Slide comments:BASIC METABOLIC [id number] 17:40:00 Test Item Value Reference Range Interpretation [...] FOR DIALYSIS PATIEN TS. RAD, CHEST, 2 [id number] 16:22:00Reason for exam:->pre-op testingShould this be performed at the bedside?->NoFINAL REPORT Chest, PA and lateral. History: Preoperative. Comparison: 08/24/2017. Discussion: Cardiomegaly and thoracic aortic ectasia. The lungs are clear without evidence of consolidation or effusion. There are no acute osseous abnormalities. The soft tissues are unremarkable. IMPRESSION: No acute cardiopulmonary abnormality. Signed: Humberto Weaver MDReport Verified Date/ Time: 02/12/2018 16:22:15 Reading Location: [address] Radiology Reading Room TISSUE [id number] 17:10:00Surgical Pathology Report Case: [id number] Authorizing Provider: Brown Garcia MD Collected: 08/25/2017 1030 Ordering Location: [facility] PERIOPERATIVE Received: 08/25/2017 1434 SERVICES Pathologist: [...] NOT PRESENT Signing Pathologist Direct Phone Line: [phone] signed by Nicolas Diaz MD on 08/28/2017 at 5:10 PMThe focus of invasion on specimen B. Is into the lamina propria of one papillary stalk and consists of on 3-4 tiny cell clusters. A. 97[address]H. 60[address]O. 64753R. 03056Tkvirtatj neoplasm of urinary bladder A. Bladder tumor [...] to 0.4 cm. Submitted D1. CG/pl PerformedURINE [id number] 16:00:00 Test Item Value Reference Range Interpretation [...] comments: Slide comments:CBC W/PLT COUNT & AUTO [id number] 20:06:00 Test Item Value Reference Range Interpretation [...] (test code = 413) RAD, CHEST, 2 [id number] 16:22:00Reason for Exam:->bladder cancer, pre- op testingFINAL [...] Verified Date/Time: 08/23/2017 16:22:14 Reading Location: [address] Reading Room [facility] METABOLIC [id number] 16:10:00 Test Item Value Reference Range Interpretation [...] APPLICABLE FOR DIALYSIS PATIEN TS. URINALYSIS W/ [id number] 16:01:00 Test Item Value Reference Range Interpretation [...] Rare 1574) SOURCE(BEAKER) (test code = 2795) [id number] 15:55:00 Test Item Value Reference Range Interpretation Comments PARTIAL THROMBOPLASTIN TIME 31.6 seconds 22.5-36.0 (BEAKER) (test code = 760) PROTHROMBIN TIME/[id number] 15:54:00 Test Item Value Reference Range Interpretation Comments PROTIME (BEAKER) (test code = 14.8 seconds 11.7-14.7 H 759) INR (BEAKER) (test code = 370) 1.2 <=5.9 RECOMMENDED COUMADIN/WARFARIN INR THERAPY RANGESSTANDARD DOSE: 2.0 - 3.0 Includes: PROPHYLAXIS forvenous thrombosis, systemic embolization; TREATMENT for venous thrombosis and/or pulmonary embolus.HIGH RISK: Target INR is 2.5-3.5 for patients with mechanical heart valves.DOGWORNITJ7881-69-09 10:07:0032.2[facility] ExhqlkkNOHGLEKFCR0837-21-31 10:07:008.6[facility] NxuqnfpMWDCPKRKIM4518-04-95 10:07:91763Zytyrlom EcatdnzHXLQRFXUCV2664-30-85 10:07:0016.8[facility] BPRQOPSRFX4850-83-37 10:07:0011.3[facility] GothzibMHHLKGQWWZ0294-55-67 10:07:00 4.00[facility] EwpiekyWICORLBSVI5177-24-70 10:07:0051.5[facility]annHEMATOLOGY 2017-05-29 10:07:0087.5[facility] CiumbyfQBRHJSBCWY4357-61-25 10:07:0035.0[facility] JrrdaxfANTOOPDRBZ0495-17-41 10:07:00 Test Item Value Reference Range Interpretation Comments MCH (test code = MCH) 28.2 pg 27.0-31.0 [facility] JdfhugaJBZQXQMCNO8313-09-52 10:07:001.8[facility] HermannHEMATOLOGY 2017-05-29 10:07:000.1[facility] HeepdmlEAVVBVXDKG5732-27-50 10:07:000.5[facility] VtxxkrfIJMRWFBLVZ8006-87-69 10:07:003.5[facility] EuuehciYMANXZLIOQ9500-55-70 10:07:0077.1[facility] RgowjzxMUAPWXBNHI1919-42-19 10:07:0018.1[facility] HAKAFAWTTR5056-63-67 10:07:0039.7[facility] BoxbiexJQSUXIMVUW1298-08-54 10:07:00 1.0[facility] WlmcuawEKQXKWKAJE6207-91-74 10:07:009.3[facility]annHEMATOLOGY 2017-05-29 10:07:000.3[facility] EohnapyYYTWHHZRIH9054-71-08 10:41:001.0[facility] EjwjymdQQQANTUZFT7123-86-89 10:41:002.0[facility] BkntyrzIMOQIQJAUX9470-09-87 10:41:00 Test Item Value Reference Range Interpretation Comments Tot Cell Ct (test code = Tot Cell Ct) 100 1 [facility] TjcgofiQMQYELTFNK8663-07-74 10:41:002.0[facility]annHEMATOLOGY 2017-05-28 10:41:001+ (05/28/17 5:41 AM)[facility] OhyjghuWHWDZIRKXK9195-73-88 10:41:00Moderate *ABN*(05/28/17 5:41 AM)[facility] MxemzwwWJROUBRNKF7956-25-24 10:41:001+ *ABN*(05/28/17 5:41 AM)[facility] FbqeowgHFGKULJVYS3680-61-07 10:41:001+ *ABN*(05/28/17 5:41 AM)[facility] YcqznbqOVAJVOYNQT9694-21-28 10:41:0042.8[facility] FflpgavLZWJHYUDDM7108-55-56 10:41:0013.0[facility] OjtrfsqQOASVSOMGU5617-20-61 10:41:000.5[facility] JfzijjeYXWLXAPUPQ0811-92-22 10:41:0082.0[facility] AHGPOXCXCT7487-17-59 10:41:000.0[facility] BqhbprnOFDSGWHPFJ9078-11-48 10:41:006.6 [facility] LacsrpcIXRCEAXUPA0817-52-19 10:41:001.0[facility] HermannHEMATOLOGY 2017-05-28 10:41:99831Oigqzkss PpdmykuYHPQGTTJIM1931-27-00 10:41:0016.4[facility] XotgwfkQAQACOFYBZ6036-78-80 10:41:00 Test Item Value Reference Range Interpretation Comments MCH (test code = MCH) 27.8 pg 27.0-31.0 [facility] ZtfpavqBPEXYHKHNW1873-80-92 10:41:0032.2[facility]annHEMATOLOGY 2017-05-28 10:41:0086.2[facility] HyalrkqBIGIHRSCFT3594-29-14 10:41:0035.5[facility] JwzsxsbKSOHZVTDNZ1440-01-60 10:41:008.2[facility] YepfjwcVXNIQVZJWW4487-08-33 10:41:0011.4[facility] AdrxqnvDBXCRSBOUG5058-55-12 10:41:004.13[facility] XFPXNCSBKC7721-10-25 10:41:0051.0[facility] HermannCHEM BABSE3613-47-72 13:34:0068 [facility] HermannCHEM GWSBX2257-15-59 13:34:0024[facility] HermannCHEM PANEL 2017-05-27 13:34:15287Vwhheekd HermannCHEM GEYEW9572-57-96 13:34:003.8[facility] HermannCHEM ZBEHG7403-19-83 13:34:10097Stjqvtea HermannCHEM QWDQK1585-08-75 13:34:001.08[facility] HermannCHEM JMIEP7825-61-31 13:34:0020[facility] HermannCHEM ZQWYP1791-63-37 13:34:008.7[facility] HermannCHEM ZJPPA1186-22-25 13:34:16615 [facility] HermannCHEM JGYVV9132-25-64 13:34:0014.8[facility] HermannHEMATOLOGY 2017-05-27 13:34:001.3[facility] EivmueeEAHJAVMPZZ8063-70-00 13:34:000.5[facility] ImlukvrTZPEYUEAWA0143-15-99 13:34:000.3[facility] RbuawwlCIEAEYKBZT6241-94-49 13:34:000.8[facility] PzanzlfZAAEXGEROQ2913-99-64 13:34:0010.9[facility] FUGVVTBYLE0534-05-08 13:34:0044.6[facility] YolsubvIZNUVWJVIK6719-91-18 13:34:00 0.3[facility] RngodruEKLVZOPHXE3703-77-38 13:34:001+ *ABN*(05/27/17 8:34 AM) [facility] TwvgdonHJHYESKHJO2836-64-41 13:34:000.2[facility] HermannHEMATOLOGY 2017-05-27 13:34:0019.3[facility] OobadjzDCWENGTOPE7875-10-65 13:34:00Normal (05/27/17 8:34 AM)[facility] SfrkiwoOTHQEJBSJM1128-21-73 13:34:0078.6[facility] TuwmwvnBWCCHFDERR6376-16-40 13:34:30916Udgqfwuh QynhbruKRHICYFBAF7532-00-92 13:34:008.5[facility] XfanahgZKGQXTPFSK6671-09-27 13:34:0033.0[facility] BEKHJBBZDD2761-08-59 13:34:0016.4[facility] JaayydaDLLJDVWSYF4442-37-68 13:34:00 12.4[facility] RrfrdwjZUZBPPXTBL8126-88-10 13:34:0086.8[facility] HermannHEMATOLOGY 2017-05-27 13:34:0037.4[facility] NfaxrxsNNBJPZORPO2714-96-78 13:34:00 Test Item Value Reference Range Interpretation Comments MCH (test code = MCH) 28.7 pg 27.0-31.0 [facility] MkvbyfnVVTZCNCSEB3423-50-17 13:34:0056.8[facility] HermannHEMATOLOGY 2017-05-27 13:34:004.31[facility] HermannBLOOD BANK RLFJSKS9320-89-60 06:34:00 Negative (05/27/17 1:34 AM)[facility] HermannBLOOD BANK KRIIVQT3599-60-36 06:25:00 Product available (05/27/17 1:25 AM)[facility] HermannCHEM WCOGX3746-41-37 04:22:00 49[facility] HermannCHEM NIACJ2931-12-50 04:22:19150Xtbcdknn HermannCHEM PANEL 2017-05-27 04:22:003.5[facility] HermannCHEM SQRFK4599-72-45 04:22:22960Clyxnbbm HermannCHEM PRDOK6707-57-16 04:22:0025[facility] HermannCHEM KZIYD1783-74-19 04:22:009.1[facility] HermannCHEM WSAKQ6859-57-10 04:22:84193Xxztpvbs HermannCHEM VTFWM8927-94-69 04:22:0025[facility] HermannCHEM PGNTH5020-29-59 04:22:001.41 [facility] HermannCHEM TYZUQ4432-70-55 04:22:0012.5[facility] HermannHEMATOLOGY 2017-05-27 04:22:000.0[facility] CprwwmgWJJWONSPKA3245-13-33 04:22:00Normal (05/26/17 11:22 PM)[facility] PixcxgrNQDEQWMQXG2383-32-90 04:22:000.0[facility] UwalubaQMYYKFHLFG4239-45-14 04:22:00 Test Item Value Reference Range Interpretation Comments Tot Cell Ct (test code = Tot Cell Ct) 100 1 [facility] GelxrhaEJGDGMLQDT4907-71-40 04:22:00Normal (05/26/17 11:22 PM)[facility] JfprttdSPIXPZRBJI8193-53-57 04:22:00 Test Item Value Reference Range Interpretation Comments INR (test code = INR) 1.13 1 0.85-1.17 [facility] GafxqakTAPYDHXVKG7333-25-71 04:22:00 Test Item Value Reference Range Interpretation Comments PT (test code = PT) 14.5 s 12.0-14.7 [facility] AukrvxpUYPUVEPVYV2673-42-25 04:22:00 Test Item Value Reference Range Interpretation Comments PTT (test code = PTT) 33.1 s 22.9-35.8 [facility] HermannHEMOGLOBIN Y3K9469-56-17 11:52:00 Test Item Value Reference Range Interpretation Comments HEMOGLOBIN A1C (BEAKER) (test code = 6.9 % 4.3-6.1 H 368) [id number] 11:12:00 Test Item Value Reference Range Interpretation Comments RPR SCREEN (BEAKER) (test code = Nonreactive Nonreactive 420) CBC W/PLT COUNT & AUTO TBHEPQAZIHEW0752-01-86 10:31:00 Test Item Value Reference Range Interpretation [...] (BEAKER) (test code = Present 1371) VITAMIN [id number] 08:02:00 Test Item Value Reference Range Interpretation Comments VITAMIN B12 (BEAKER) (test code = 346 pg/mL 213-816 774) TSH/FREE T4 IF RJFRGYLDN2401-07-20 08:02:00 Test Item Value Reference Range Interpretation Comments THYROID STIMULATING HORMONE 1.37 uIU/mL 0.35-4.94 (BEAKER) (test code = 772) CREATINE KINASE (CK), TOTAL AND [id number] 07:55:00 Test Item Value Reference Range Interpretation Comments CREATINE KINASE TOTAL (BEAKER) 72 U/L 29-200 (test code = 380) CREATINE KINASE-MB (BEAKER) (test 0.5 ng/mL 0.0-6.6 code = 750) CREATINE KINASE-MB INDEX (BEAKER) 0.7 % (test code = 395) CK-MB Reference Range:<6.7 Normal6.7-10.0 Borderline>10.0 AbnormalTROPONIN M2651-67-22 07:55:00 Test Item Value Reference Range Interpretation [...] acidosis, acute neurological disease, and persistent tachyarrhythmia.LIPID ZMDTN0246-97-17 07:39:00 Test Item Value Reference Range Interpretation [...] 130-159 High 160-189 Very High >=190BASIC METABOLIC RGIUE5347-20-39 07:39:00 Test Item Value Reference Range Interpretation [...] DIALYSIS PATIEN TS. MR, MRA, BRAIN, WITHOUT [id number] 04:30:00Reason for exam:->Ischemic Stroke EvaluationFINAL REPORT MR, [...] MDReport Verified Date/Time: 01/29/2017 04:30:36 Reading Location: [facility] C[address] [facility] Consult Reading Room MR, MRA, NECK, WITHOUT IV VXIYYDHU6936-07-84 04:30:00Reason for exam:- >Ischemic Stroke EvaluationFINAL REPORT [...] MDReport Verified Date/Time: 01/29/2017 04:30:36 Reading Location: [facility] C[address] [facility] Consult Reading Room MR, BRAIN, WITHOUT TLWXGFSB3918-78-26 04:30:00Reason for exam:- >Ischemic Stroke EvaluationFINAL REPORT [...] MDReport Verified Date/Time: 01/29/2017 04:30:36 Reading Location: [facility] C[address] [facility] Reading Room CHEM GIEOH6200-71-37 20:35:0054[facility] HermannCHEM CBUBL5164-18-26 20:35:0015.8[facility] HermannCHEM TETHJ4455-07-08 20:35:009.9[facility] HermannCHEM ZWMQL3178-57-96 20:35:0027[facility] HermannCHEM KBFWH7058-97-33 20:35:76366 [facility] HermannCHEM DQECA6693-89-95 20:35:0091[facility] HermannCHEM PANEL 2016-09-19 20:35:0018[facility] HermannCHEM ZPUVN9291-93-28 20:35:43434Vebffyll HermannCHEM OQXJK5980-21-27 20:35:001.31[facility] HermannCHEM BDCSY8074-89-96 20:35:003.8[facility]
[2020-01-31] MEDS ORDERED: ACETAMINOPHEN 500 MG TAB PO PRN (19:41)
[2020-01-31] MEDS ORDERED: MELATONIN 3 MG TABLET PO PRN (19:46)
[2020-01-31] MEDS ORDERED: HEPARIN 5000 UNIT/ML 1 ML VIAL SQ SCH (20:00)
[2020-01-31] MEDS: ROSUVASTATIN 10 MG TAB PO SCH (20:36)
[2020-02-01 02:56] LABS: Urine Appearance CLEAR; Urine Bilirubin NEGATIVE (NEG); Urine Blood NEGATIVE (NEG); Urine Color YELLOW; Urine Glucose NEGATIVE (NEG); Urine Protein NEGATIVE (NEG); Urine Specific Gravity 1.015 (1.005-1.030); Urine Urobilinogen 0.2 mg/dL (0.2-1.0); Urine pH 5.5 (5.0-7.0)
[2020-02-01 03:25] LABS: Urine Bacteria <20 /HPF (NONE SEEN); Urine RBC <5 /HPF (NONE SEEN); Urine Urothelial Cells <5 /HPF (NONE SEEN)
[2020-02-01] MEDS: NEBIVOLOL HCL 5 MG TAB PO SCH ×2 (05:09→05:57)
[2020-02-01] MEDS: INSULIN -REGULAR HUMAN 50 UNIT/0.5 ML ML SQ SCH ×4 (07:30→20:13)
[2020-02-01] MEDS ORDERED: DILTIAZEM HCL 120 MG SR CAP PO SCH (08:00)
[2020-02-01] MEDS ORDERED: levoFLOXacin 500 MG TAB PO SCH ×2 (08:00)
[2020-02-01] MEDS ORDERED: HEPARIN 5000 UNIT/ML 1 ML VIAL SQ SCH (08:00)
[2020-02-01] MEDS ORDERED: D50W 25 GM/50 ML SYRINGE IV PRN (08:19)
[2020-02-01] MEDS ORDERED: GLUCAGON 1 MG/VIAL IM PRN (08:19)
[2020-02-01] MEDS: FOLIC ACID 1 MG TABLET PO SCH (08:25)
[2020-02-01] MEDS: CLOPIDOGREL 75 MG TABLET PO SCH (08:25)
[2020-02-01] MEDS: THIAMINE HCL 100 MG TABLET PO SCH (08:25)
[2020-02-01] MEDS: CYANOCOBALAMIN 1,000 MCG TAB PO SCH (08:25)
[2020-02-01] MEDS: ASPIRIN 81 MG CHEWABLE TABLET PO SCH (08:25)
[2020-02-01] MEDS ORDERED: levoFLOXacin 500 MG TAB PO ONE (09:00)
[2020-02-01 09:02] LABS: Absolute Lymphocytes (CBC) 101.5 K/uL (0.7-4.9); Basophils % 0.4 % (0-1.3); Hematocrit 26.7 % (39.6-49.0); MPV 7.9 fL (7.6-11.3); RBC Red Blood Cell Count 2.45 M/uL (4.33-5.43)
[2020-02-01 09:54] LABS: Platelet Estimate ADEQ; Smudge Cells 4
[2020-02-01 09:55] LABS: Blood Morphology Comment NOT SEEN (NOT SEEN)
[2020-02-01] MEDS: FERROUS SULFATE 325 MG TAB PO SCH (12:48)
[2020-02-01] MEDS: FE SULF/FA/VIT B COMP & C TAB PO SCH (12:48)
--- NOTE | 2020-02-01 13:13 | RAD REPORT ---
EXAM DESCRIPTION: RAD - Chest Single View - 02/01/2020 6:31 am CLINICAL HISTORY: follow up Chest pain. COMPARISON: Chest Single View dated 01/28/2020; Chest Single View dated 01/25/2020; Chest Single Vie w dated 01/16/2020; Chest Pa And Lat (2 Views) dated 12/27/2017 FINDINGS: Portable technique limits examination quality. The lungs are grossly clear. Slight increased density projecting over both lung martin probably artif actual in nature. The heart is mildly enlarged with a tortuous thoracic aorta. No displaced fractures . IMPRESSION: No acute intrathoracic process suspected.
[2020-02-01] MEDS: ROSUVASTATIN 10 MG TAB PO SCH (20:12)
[2020-02-01] MEDS: HEPARIN 5000 UNIT/ML 1 ML VIAL SQ SCH (21:00)
[2020-02-02] MEDS: NEBIVOLOL HCL 5 MG TAB PO SCH (05:01)
[2020-02-02] MEDS: INSULIN -REGULAR HUMAN 50 UNIT/0.5 ML ML SQ SCH ×4 (07:30→19:36)
[2020-02-02] MEDS: FE SULF/FA/VIT B COMP & C TAB PO SCH (08:53)
[2020-02-02] MEDS: FERROUS SULFATE 325 MG TAB PO SCH (08:53)
[2020-02-02] MEDS: FOLIC ACID 1 MG TABLET PO SCH (08:54)
[2020-02-02] MEDS: DILTIAZEM HCL 120 MG SR CAP PO SCH (08:54)
[2020-02-02] MEDS: CYANOCOBALAMIN 1,000 MCG TAB PO SCH (08:54)
[2020-02-02] MEDS: THIAMINE HCL 100 MG TABLET PO SCH (08:54)
[2020-02-02] MEDS: ASPIRIN 81 MG CHEWABLE TABLET PO SCH (08:54)
[2020-02-02] MEDS: CLOPIDOGREL 75 MG TABLET PO SCH (08:54)
[2020-02-02] MEDS ORDERED: EPOETIN ALFA-EPBX 10,000 UNIT/ML VIAL SQ SCH (12:00)
[2020-02-02] MEDS ORDERED: EPOETIN ALFA-EPBX 10,000 UNIT/ML VIAL SQ ONE ×2 (12:00→15:00)
[2020-02-02] MEDS: levoFLOXacin 500 MG TAB PO SCH (12:12)
[2020-02-02] MEDS: ROSUVASTATIN 10 MG TAB PO SCH (19:45)
[2020-02-02] MEDS: NYSTATIN PWDR 100000 UNIT/GM TOP SCH (19:54)
[2020-02-02] MEDS: HEPARIN 5000 UNIT/ML 1 ML VIAL SQ SCH (21:42)
[2020-02-03] MEDS: NEBIVOLOL HCL 5 MG TAB PO SCH (05:02)
[2020-02-03] MEDS: INSULIN -REGULAR HUMAN 50 UNIT/0.5 ML ML SQ SCH ×4 (07:30→20:00)
[2020-02-03] MEDS: ASPIRIN 81 MG CHEWABLE TABLET PO SCH (07:59)
[2020-02-03] MEDS: THIAMINE HCL 100 MG TABLET PO SCH (07:59)
[2020-02-03] MEDS: CLOPIDOGREL 75 MG TABLET PO SCH (07:59)
[2020-02-03] MEDS: FERROUS SULFATE 325 MG TAB PO SCH (07:59)
[2020-02-03] MEDS: FOLIC ACID 1 MG TABLET PO SCH (07:59)
[2020-02-03] MEDS: CYANOCOBALAMIN 1,000 MCG TAB PO SCH (08:00)
[2020-02-03] MEDS: DILTIAZEM HCL 120 MG SR CAP PO SCH (08:00)
[2020-02-03] MEDS: FE SULF/FA/VIT B COMP & C TAB PO SCH (08:01)
[2020-02-03] MEDS: SMZ./TMP. 800/160 MG TABLET PO SCH ×2 (08:29→19:25)
[2020-02-03] MEDS: NYSTATIN PWDR 100000 UNIT/GM TOP SCH ×2 (09:10→19:25)
[2020-02-03] MEDS: levoFLOXacin 500 MG TAB PO SCH (12:00)
--- NOTE | 2020-02-03 14:33 | RAD REPORT ---
EXAM DESCRIPTION: RAD - Barium Swallow Modified - 02/03/2020 1:42 pm CLINICAL HISTORY: R/O Aspiration CVA, coughing and choking while eating COMPARISON: None. TECHNIQUE: The patient was given liquid, semi-solid and solid forms of barium. Lateral view fluorosc opic imaging was performed in conjunction with speech pathology service. FINDINGS: Cineloop acquisitions: 12 Fluoro time: 2 minutes 44 seconds laryngeal pentration : cleared with thin aspiration : no cough with thin pharyngeal residue : vallecular, pyriform, posterior wall trace with chewable solids other : 1 sec swallow delay, reduced laryngeal elevation . barium tablet got held up in ue, cleared w ith tsp pudding IMPRESSION: Modified barium swallow as summarized above and fully detailed on speech pathology repor tRoyal
[2020-02-03] MEDS: HEPARIN 5000 UNIT/ML 1 ML VIAL SQ SCH (18:22)
[2020-02-03] MEDS: ROSUVASTATIN 10 MG TAB PO SCH (20:02)
[2020-02-04] MEDS: NEBIVOLOL HCL 5 MG TAB PO SCH (05:12)
[2020-02-04] MEDS: INSULIN -REGULAR HUMAN 50 UNIT/0.5 ML ML SQ SCH ×2 (07:30→11:30)
[2020-02-04] MEDS: SMZ./TMP. 800/160 MG TABLET PO SCH ×2 (08:13→19:52)
[2020-02-04] MEDS: DILTIAZEM HCL 120 MG SR CAP PO SCH (08:15)
[2020-02-04] MEDS: FERROUS SULFATE 325 MG TAB PO SCH (08:15)
[2020-02-04] MEDS: THIAMINE HCL 100 MG TABLET PO SCH (08:15)
[2020-02-04] MEDS: CLOPIDOGREL 75 MG TABLET PO SCH (08:16)
[2020-02-04] MEDS: ASPIRIN 81 MG CHEWABLE TABLET PO SCH (08:16)
[2020-02-04] MEDS: CYANOCOBALAMIN 1,000 MCG TAB PO SCH (08:16)
[2020-02-04] MEDS: FOLIC ACID 1 MG TABLET PO SCH (08:16)
[2020-02-04] MEDS: NYSTATIN PWDR 100000 UNIT/GM TOP SCH ×2 (08:17→19:52)
[2020-02-04] MEDS: FE SULF/FA/VIT B COMP & C TAB PO SCH (08:19)
[2020-02-04] MEDS ORDERED: TRAZODONE 50 MG TABLET PO PRN (14:00)
[2020-02-04] MEDS: HEPARIN 5000 UNIT/ML 1 ML VIAL SQ SCH (18:01)
[2020-02-04] MEDS: ROSUVASTATIN 10 MG TAB PO SCH (20:06)
[2020-02-05] MEDS: NEBIVOLOL HCL 5 MG TAB PO SCH (05:14)
[2020-02-05 07:38] LABS: Absolute Lymphocytes (CBC) 77.9 K/uL (0.7-4.9); Basophils % 0.1 % (0-1.3); Lymphocytes % 91.1 % (15.3-44.8); MPV 7.8 fL (7.6-11.3); RBC Red Blood Cell Count 1.98 M/uL (4.33-5.43)
[2020-02-05] MEDS: NYSTATIN PWDR 100000 UNIT/GM TOP SCH ×2 (08:00→20:33)
[2020-02-05 08:12] LABS: Blood Morphology Comment NOTED (NOT SEEN); Macrocytosis 2+; Platelet Estimate ADEQ; White Blood Cell Scan OK (OK)
[2020-02-05] MEDS: SMZ./TMP. 800/160 MG TABLET PO SCH ×2 (09:03→20:33)
[2020-02-05] MEDS: THIAMINE HCL 100 MG TABLET PO SCH (09:04)
[2020-02-05] MEDS: FE SULF/FA/VIT B COMP & C TAB PO SCH (09:04)
[2020-02-05] MEDS: DILTIAZEM HCL 120 MG SR CAP PO SCH (09:04)
[2020-02-05] MEDS: ASPIRIN 81 MG CHEWABLE TABLET PO SCH (09:05)
[2020-02-05] MEDS: FOLIC ACID 1 MG TABLET PO SCH (09:05)
[2020-02-05] MEDS: CLOPIDOGREL 75 MG TABLET PO SCH (09:05)
[2020-02-05] MEDS: FERROUS SULFATE 325 MG TAB PO SCH (09:05)
[2020-02-05] MEDS: CYANOCOBALAMIN 1,000 MCG TAB PO SCH (09:06)
[2020-02-05] MEDS: ROSUVASTATIN 10 MG TAB PO SCH (20:33)
[2020-02-06] MEDS: NEBIVOLOL HCL 5 MG TAB PO SCH (06:10)
[2020-02-06] MEDS: NYSTATIN PWDR 100000 UNIT/GM TOP SCH ×2 (08:00→19:39)
[2020-02-06] MEDS: FE SULF/FA/VIT B COMP & C TAB PO SCH (08:27)
[2020-02-06] MEDS: THIAMINE HCL 100 MG TABLET PO SCH (08:27)
[2020-02-06] MEDS: FERROUS SULFATE 325 MG TAB PO SCH (08:27)
[2020-02-06] MEDS: ASPIRIN 81 MG CHEWABLE TABLET PO SCH (08:28)
[2020-02-06] MEDS: FOLIC ACID 1 MG TABLET PO SCH (08:28)
[2020-02-06] MEDS: CYANOCOBALAMIN 1,000 MCG TAB PO SCH (08:28)
[2020-02-06] MEDS: CLOPIDOGREL 75 MG TABLET PO SCH (08:28)
[2020-02-06] MEDS: DILTIAZEM HCL 120 MG SR CAP PO SCH (08:28)
[2020-02-06] MEDS: SMZ./TMP. 800/160 MG TABLET PO SCH ×2 (08:28→19:38)
[2020-02-06] MEDS ORDERED: NA CHLORIDE 0.9% 250 ML ONE (09:33)
--- NOTE | 2020-02-06 10:02 | P.RH.PN ---
Estimated Length of Stay: 19 Expected Discharge Date: 02/10/20 Discharge Disposition Plan: Home Family Support: Yes [facility] Goal: Mobility, Transfers, Self Care Vital Signs: Last Vital Signs Temp 98.2 F 02/06/20 07:11 Pulse 61 02/06/20 08:28 Resp 18 02/06/20 07:11 BP 120/63 02/06/20 08:28 Pulse Ox 95 02/05/20 20:00 Laboratory: Laboratory Last Values WBC Cancelled 02/06/20 06:00 RBC Cancelled 02/06/20 06:00 Hgb Cancelled 02/06/20 06:00 Hct Cancelled 02/06/20 06:00 MCV Cancelled 02/06/20 06:00 MCH Cancelled 02/06/20 06:00 MCHC Cancelled 02/06/20 06:00 RDW Cancelled 02/06/20 06:00 Plt Count Cancelled 02/06/20 06:00 MPV Cancelled 02/06/20 06:00 Plt Distribution Width Cancelled 02/06/20 06:00 Absolute Nucleated RBC Cancelled 02/06/20 06:00 Neutrophils % Cancelled 02/06/20 06:00 Lymphocytes % Cancelled 02/06/20 06:00 Monocytes % Cancelled 02/06/20 06:00 Eosinophils % Cancelled 02/06/20 06:00 Basophils % Cancelled 02/06/20 06:00 Nucleated RBC % Cancelled 02/06/20 06:00 Absolute Neutrophils Cancelled 02/06/20 06:00 Segmented Neutrophils 7 % (40-80) L 02/01/20 08:45 Absolute Lymphocytes Cancelled 02/06/20 06:00 Lymphocytes 89 % (15-42) H 02/01/20 08:45 Monocytes 2 % (0-10) 02/01/20 08:45 Absolute Monocytes Cancelled 02/06/20 06:00 Eosinophils 2 % (0-3) 02/01/20 08:45 Absolute Eosinophils Cancelled 02/06/20 06:00 Absolute Basophils Cancelled 02/06/20 06:00 Diff Path Review Cancelled 02/06/20 06:00 Smudge Cells 4 02/01/20 08:45 Platelet Estimate Adeq 02/05/20 07:25 Macrocytosis 2+ 02/05/20 07:25 Morphology Comment Noted (NOT SEEN) 02/05/20 07:25 Sodium Cancelled 02/06/20 06:00 Potassium Cancelled 02/06/20 06:00 Chloride Cancelled 02/06/20 06:00 Carbon Dioxide Cancelled 02/06/20 06:00 BUN Cancelled 02/06/20 06:00 Creatinine Cancelled 02/06/20 06:00 Estimated GFR Cancelled 02/06/20 06:00 Glucose Cancelled 02/06/20 06:00 POC Glucose 105 mg/dL (65-120) 02/06/20 07:03 Calcium Cancelled 02/06/20 06:00 Magnesium Cancelled 02/06/20 06:00 Albumin Cancelled 02/06/20 06:00 Prealbumin Cancelled 02/06/20 06:00 Urine Color Yellow 02/01/20 02:30 Urine Appearance Clear 02/01/20 02:30 Urine pH 5.5 (5.0-7.0) 02/01/20 02:30 Ur Specific Hope 1.015 (1.005-1.030) 02/01/20 02:30 Glucose (UA)(Auto) Negative (NEG) 02/01/20 02:30 Urine Ketones Negative (NEG) 02/01/20 02:30 Urine Blood Negative (NEG) 02/01/20 02:30 Urine Nitrite Negative (NEG) 02/01/20 02:30 Urine Bilirubin Negative (NEG) 02/01/20 02:30 Urine Urobilinogen 0.2 mg/dL (0.2-1.0) 02/01/20 02:30 Ur Leukocyte Esterase Trace (NEG) H 02/01/20 02:30 Urine RBC <5 /HPF (NONE SEEN) 02/01/20 02:30 Urine WBC <5 /HPF (<5) 02/01/20 02:30 Ur Squamous Epith Cells TECHNICAL SOURCING RECRUITER 02/01/20 02:30 Ur Urothelial Cells <5 /HPF (NONE SEEN) 02/01/20 02:30 Urine Bacteria <20 /HPF (NONE SEEN) 02/01/20 02:30 Urine Culture Reflexed Reflexed 02/01/20 02:30 Urine Total Protein Negative (NEG) 02/01/20 02:30 Smear Scan Ok (OK) 02/05/20 07:25 ABO/Rh A POSITIVE 02/05/20 08:43 Solid Phase Ab Screen Positive H 02/05/20 08:43 Antibody Identification ANTI-CW 02/05/20 08:43 Antibody ID Referred Sent 02/05/20 08:43 Crossmatch See Detail 02/05/20 08:43 Weight: 180 lb 3.2 oz Wound Present: No Closed Surgical Incision Present: No Negative Pressure Wound Therapy Present: No Physician Update: His Hgb is very low at 6.8. He will get 2 units of PRBCs and therapy will be held. He is doing very well with physical and occupational therapy. He is swallowing small amounts at a time. He will be discsharged home next Monday. Comment: bruising, skin tear covered with gauze Functional Improvement: pt's progress has been limtied due to frequent drops in hemoglobin, which require therapy to be placed on HOLD. pt does perform well and is currently fuctioning without the need for physical assist; however, he does require verbal cues for safety and proper technique. Summary: Patient's care plan and detention goals have been reviewed and revised as necessary. Please see the Rehabilitation Signature page for all necessary signatures.
--- NOTE | 2020-02-06 13:48 | CON ---
Date of Consultation: 02/05/2020 Reason For Consultation: Anemia, chronic lymphocytic leukemia. Brief History Of Present Illness: Mr. Marin is a 75-year-old gentleman, who is very well known to me [facility] where he has been followed since March 2015 for chronic lymphocytic leukemia (CLL). He has been generally asymptomatic for his CLL and has not required any therapy. I was seeing him annually and in December 2018, he was asymptomatic as usual, blood counts were stable, hemoglobin was 12.6 g/dL. I saw him in on January 08, 2020 and he appeared pale, hemoglobin was 7.8 g/dL, white count was 106,000 and platelet count 219,000. Mr. Marin was hospitalized the next day when it was noted that his hemoglobin had dropped to 5.8 g/dL. He has been in the hospital for the past 3 weeks and evaluation by me for the anemia reveals no evidence of iron deficiency. His stool guaiacs have been negative. He does have chronic kidney disease and has received 2 doses of Retacrit thus far with no significant improvement. His hemoglobin continues to drop every 4 to 6 days and he has needed a total of 5 units of packed red blood cells over the past 3 weeks. He is currently in rehab for to improve his strength and stamina following the hospitalization and recent vascular surgeries. Subjectively, Mr. Marin was resting comfortably when I saw him. He complained of fatigue and concerned regarding his dropping hemoglobin. He denies any fever or night sweats or enlarged lymph nodes. Denies any pain or discomfort. Physical Examination: Vital Signs: This morning revealed a temperature of 98 degrees Fahrenheit, pulse 62, blood pressure 133/62, respirations 16 per minute. He has been saturating in the mid 90s on room air. Physical examination reveals significant pallor. No cyanosis or icterus was noted. HEENT: Examination reveals no thrush. Neck: Reveals no lymphadenopathy or JVD. Lymph Node: Survey reveals no palpable lymphadenopathy in the axilla or groin. Chest: Clear to auscultation. Heart: Sounds reveal normal S1, S2. No gallops or murmurs were noted. Abdomen: Soft and nontender. No palpable hepatosplenomegaly. Neurologic: He is alert and oriented with no acute deficits. Extremities: Show decreased distal pulses, but no edema. Laboratory Data: From this morning revealed a white count of 85,500 with predominant lymphocytes, hemoglobin was 6.8, hematocrit 22, platelet count was 193,000. Hemoglobin on 02/01/2020 was 8.2 g/dL. Chemistries reveal a decreased GFR in the 30-45 mL/minute range. Iron studies done a couple of weeks ago revealed a normal transferrin saturation of 39%, ferritin of 402; both normal. B12, folate, and TSH have been normal. Reticulocyte count was elevated at 6.45%, but absolute retic corrected for hemoglobin was essentially normal. Sed rate was elevated at 46. He had a CT scan of the abdomen and pelvis on 01/20/2020, which revealed [id number] abdominal lymphadenopathy involving the gastrohepatic, peripancreatic and portacaval lymph node groups with evidence of splenomegaly, spleen measuring 17 cm. Of note, a previous CT scan done in June 2014 around the time of his initial diagnosis showed no evidence of adenopathy or splenomegaly. Assessment And Plan: 1. Anemia. Given normal iron profile and negative stool guaiacs, I suspect his anemia is secondary to chronic kidney disease and CLL. There is no evidence of Hemolysis. I would suggest to transfuse packed red blood cells when his hemoglobin is less than 7 g/dL while he is in rehab. Following discharge, we will see him in clinic q mon and thurs and transfuse if Hg is <7gm/dl. 2. Chronic lymphocytic leukemia (CLL). In my opinion, his CLL has progressed and he is symptomatic from it. We discussed that he will need treatment for CLL if his anemia is to improve consistently. My plan is to treat him with Ibrutinib and Rituxan as an outpatient for the CLL. He will be followed closely during therapy and continue on ibrutinib as long as he responds and has no unacceptable toxicity. The recommendations were discussed with Dr. Healy and Dr. Looney. Staff was advised to make a followup appointment with him upon discharge. AP/MODL Voice ID: [id number] Report ID: [id number] JUAN
[2020-02-06 18:24] LABS: Hematocrit 27.9 % (39.6-49.0)
[2020-02-06] MEDS: ROSUVASTATIN 10 MG TAB PO SCH (19:39)
[2020-02-07] MEDS: NEBIVOLOL HCL 5 MG TAB PO SCH ×2 (05:31→06:23)
[2020-02-07] MEDS: FE SULF/FA/VIT B COMP & C TAB PO SCH (08:08)
[2020-02-07] MEDS: FERROUS SULFATE 325 MG TAB PO SCH (08:08)
[2020-02-07] MEDS: CLOPIDOGREL 75 MG TABLET PO SCH (08:08)
[2020-02-07] MEDS: DILTIAZEM HCL 120 MG SR CAP PO SCH (08:08)
[2020-02-07] MEDS: ASPIRIN 81 MG CHEWABLE TABLET PO SCH (08:08)
[2020-02-07] MEDS: SMZ./TMP. 800/160 MG TABLET PO SCH ×2 (08:08→20:05)
[2020-02-07] MEDS: THIAMINE HCL 100 MG TABLET PO SCH (08:08)
[2020-02-07] MEDS: CYANOCOBALAMIN 1,000 MCG TAB PO SCH (08:08)
[2020-02-07] MEDS: FOLIC ACID 1 MG TABLET PO SCH (08:08)
[2020-02-07] MEDS: NYSTATIN PWDR 100000 UNIT/GM TOP SCH ×2 (09:52→20:05)
[2020-02-07] MEDS: ROSUVASTATIN 10 MG TAB PO SCH (20:05)
[2020-02-08] MEDS: NEBIVOLOL HCL 5 MG TAB PO SCH (05:06)
[2020-02-08] MEDS: NYSTATIN PWDR 100000 UNIT/GM TOP SCH ×2 (08:00→20:36)
[2020-02-08] MEDS: DILTIAZEM HCL 120 MG SR CAP PO SCH (08:00)
[2020-02-08] MEDS: ASPIRIN 81 MG CHEWABLE TABLET PO SCH (10:05)
[2020-02-08] MEDS: CLOPIDOGREL 75 MG TABLET PO SCH (10:05)
[2020-02-08] MEDS: FOLIC ACID 1 MG TABLET PO SCH (10:06)
[2020-02-08] MEDS: FERROUS SULFATE 325 MG TAB PO SCH (10:06)
[2020-02-08] MEDS: CYANOCOBALAMIN 1,000 MCG TAB PO SCH (10:06)
[2020-02-08] MEDS: FE SULF/FA/VIT B COMP & C TAB PO SCH (10:06)
[2020-02-08] MEDS: THIAMINE HCL 100 MG TABLET PO SCH (10:06)
[2020-02-08] MEDS: ROSUVASTATIN 10 MG TAB PO SCH (20:36)
[2020-02-09] MEDS: NEBIVOLOL HCL 5 MG TAB PO SCH (05:30)
[2020-02-09 06:23] LABS: Potassium 4.3 mmol/L (3.5-5.1)
[2020-02-09 06:44] LABS: Absolute Lymphocytes (CBC) 78.7 K/uL (0.7-4.9); Hematocrit 24.4 % (39.6-49.0); Lymphocytes % 92.7 % (15.3-44.8); MPV 8.4 fL (7.6-11.3); RBC Red Blood Cell Count 2.18 M/uL (4.33-5.43)
[2020-02-09] MEDS: NYSTATIN PWDR 100000 UNIT/GM TOP SCH ×2 (08:00→20:00)
[2020-02-09] MEDS: THIAMINE HCL 100 MG TABLET PO SCH (09:04)
[2020-02-09] MEDS: FERROUS SULFATE 325 MG TAB PO SCH (09:04)
[2020-02-09] MEDS: FE SULF/FA/VIT B COMP & C TAB PO SCH (09:04)
[2020-02-09] MEDS: DILTIAZEM HCL 120 MG SR CAP PO SCH (09:05)
[2020-02-09] MEDS: CYANOCOBALAMIN 1,000 MCG TAB PO SCH (09:05)
[2020-02-09] MEDS: CLOPIDOGREL 75 MG TABLET PO SCH (09:05)
[2020-02-09] MEDS: FOLIC ACID 1 MG TABLET PO SCH (09:06)
[2020-02-09] MEDS: ASPIRIN 81 MG CHEWABLE TABLET PO SCH (09:49)
[2020-02-09] MEDS ORDERED: NA CHLORIDE 0.9% 250 ML ONE (17:05)
[2020-02-09] MEDS: ROSUVASTATIN 10 MG TAB PO SCH (20:12)
[2020-02-10 00:56] LABS: Hematocrit 26.5 % (39.6-49.0)
[2020-02-10] MEDS: NEBIVOLOL HCL 5 MG TAB PO SCH (05:16)
[2020-02-10] MEDS: FERROUS SULFATE 325 MG TAB PO SCH (08:16)
[2020-02-10] MEDS: FE SULF/FA/VIT B COMP & C TAB PO SCH (08:16)
[2020-02-10] MEDS: CYANOCOBALAMIN 1,000 MCG TAB PO SCH (08:16)
[2020-02-10] MEDS: CLOPIDOGREL 75 MG TABLET PO SCH (08:16)
[2020-02-10] MEDS: ASPIRIN 81 MG CHEWABLE TABLET PO SCH (08:16)
[2020-02-10] MEDS: FOLIC ACID 1 MG TABLET PO SCH (08:16)
[2020-02-10] MEDS: THIAMINE HCL 100 MG TABLET PO SCH (08:16)
[2020-02-10] MEDS: DILTIAZEM HCL 120 MG SR CAP PO SCH (08:17)
[2020-02-10] MEDS: NYSTATIN PWDR 100000 UNIT/GM TOP SCH ×2 (09:52→19:41)
[2020-02-10] MEDS ORDERED: NA CHLORIDE 0.9% 250 ML IV SCH (11:00)
[2020-02-10] MEDS ORDERED: D50W 25 GM/50 ML VIAL IV PRN (16:57)
[2020-02-10] MEDS: ROSUVASTATIN 10 MG TAB PO SCH (19:41)
[2020-02-10 19:44] VITALS: TEMP 97.7
[2020-02-10 23:33] LABS: Hematocrit 27.9 % (39.6-49.0)
[2020-02-10 23:57] VITALS: O2SAT 97
[2020-02-11] MEDS: NEBIVOLOL HCL 5 MG TAB PO SCH (05:03)
[2020-02-11 07:22] VITALS: BP 150/70
[2020-02-11] MEDS: ASPIRIN 81 MG CHEWABLE TABLET PO SCH (07:49)
[2020-02-11] MEDS: FERROUS SULFATE 325 MG TAB PO SCH (07:49)
[2020-02-11] MEDS: NYSTATIN PWDR 100000 UNIT/GM TOP SCH (07:49)
[2020-02-11] MEDS: DILTIAZEM HCL 120 MG SR CAP PO SCH (07:49)
[2020-02-11] MEDS: FOLIC ACID 1 MG TABLET PO SCH (07:49)
[2020-02-11] MEDS: CYANOCOBALAMIN 1,000 MCG TAB PO SCH (07:49)
[2020-02-11] MEDS: CLOPIDOGREL 75 MG TABLET PO SCH (07:49)
[2020-02-11] MEDS: FE SULF/FA/VIT B COMP & C TAB PO SCH (07:49)
[2020-02-11] MEDS: THIAMINE HCL 100 MG TABLET PO SCH (08:27)
== END 2020-02-11 14:10 | disposition home health service (06) | DRG 841 ==
LOC: 5TH 18:42
PROVIDERS: ADMIT Psychiatry & Neurology Neurology with Special Qualifications in Child Neurology; ATTEND Psychiatry & Neurology Neurology with Special Qualifications in Child Neurology
PROC: 30233N1 Transfusion of Nonautologous Red Blood Cells into Peripheral Vein, Percutaneous Approach (ICD-10-PCS; principal; 2020-01-31)
DX: C91.10 Chronic lymphocytic leukemia of B-cell type not having achieved remission (principal); N39.0 Urinary tract infection, site not specified; R53.81 Other malaise; I12.9 Hypertensive chronic kidney disease with stage 1 through stage 4 chronic kidney disease, or unspecified chronic kidney disease; N18.9 Chronic kidney disease, unspecified; E11.22 Type 2 diabetes mellitus with diabetic chronic kidney disease; D63.1 Anemia in chronic kidney disease; J44.9 Chronic obstructive pulmonary disease, unspecified; B96.20 Unspecified Escherichia coli [E. coli] as the cause of diseases classified elsewhere; Z86.73 Personal history of transient ischemic attack (TIA), and cerebral infarction without residual deficits; Z20.822 Contact with and (suspected) exposure to COVID-19
CPT/HCPCS: 36415; 71045; 74230; 80048; 81001; 82274; 82947; 84134; 85014; 85018; 85025; 86850; 86870; 86900; 86901; 86922; 87077; 87086; 87088; 87186; 92526; 92611; 97110; 97112; 97116; 97161; 97530; J1644; J7050; Q5106; U0002

== ENCOUNTER 2020-02-28 22:13 | Inpatient (IN) | payer OTHER, MEDICARE ==
--- OUTSIDE RECORDS SUMMARY | 2020-02-28 22:15 | XMS REPORT | Clinical Summary ---
:1945 Author Organization [place] [employer] Address [address] [place] [address] Care Team Providers Name Role Phone MD [...] ss Type Group AETNA AETNA PPO OPEN [id number] 2000-Present PPO CHOICE MEDICARE MEDICARE PART A [id number] 2009-Present [facility] [place] [place] Medicare AND B Advance Directives For more information, please contact: [phone] Type Date Recorded Patient Applications Support Lead Explanati on Advance Directives, Living Will and Medical Power of Real Estate Agency Principal
--- OUTSIDE RECORDS SUMMARY | 2020-02-28 22:18 | XMS REPORT | Clinical Summary ---
:1945 Author Organization [facility] Address [address] [place] [address] Care Team Providers Name Role Phone MD [...] Encounter Cardiology Payne, Casey Aneurysm of Gee, SCENARIO WRITER infrarenal abdominal aorta (HCC) 12/11/2019 Orders Only General Internal Medicine 12/11/2019 Travel 11/27/2019 Orders Only Cardiology Payne, Casey Aneurysm of Gee, SCENARIO WRITER infrarenal abdominal aorta (HCC) (Primary Dx) 11/21/2019 Hospital Encounter Respiratory Therapy Payne, Casey An eurysm of infrarenal abdominal aorta (HCC); Gee, SCENARIO WRITER Tobacco use 11/14/2019 Orders Only Cardiology Payne, Casey Aneurysm of Gee, SCENARIO WRITER infrarenal abdominal aorta (HCC) (Primary Dx) 11/13/2019 Orders Only Cardiology Payne, Casey Tobacco use (Pr imary Dx); Gee, SCENARIO WRITER Aneurysm of inf rarenal abdominal aorta (HCC) 11/05/2019 Office Visit Cardiology Delano Payne Ascending ao rtic aneurysm (HCC) (Primary Dx); MD Kenny Aneurysm of infrarenal abdominal aorta ( HCC); Payne, Casey Tobacco use Gee, SCENARIO WRITER 11/05/2019 Hospital Encounter Computed Tomography Payne, Casey Ab dominal aortic aneurysm (AAA) without rupture (HCC); Gee, SCENARIO WRITER Ascending aortic aneurysm (HCC); [facility], [facility] Room 11/05/2019 Hospital Encounter Computed Tomography Payne, Casey Ab dominal aortic aneurysm without rupture (HCC); Gee, SCENARIO WRITER Abdominal aortic aneurysm (AAA) without rupture (HCC) [facility] 10/18/2019 Orders Only Cardiology [...] Comments Blood Pressure 140/66 2020 2:00 PM SENIOR TEST ENGINEER Pulse 58 2020 2:00 PM SENIOR TEST ENGINEER Temperature 48 C (118.4 F) 2020 11:52 AM SENIOR TEST ENGINEER Respiratory Rate 18 2020 2:00 PM SENIOR TEST ENGINEER Oxygen Saturation 98% 2020 1:00 PM SENIOR TEST ENGINEER Inhaled Oxygen Concentration 21% 12/18/2019 7:44 PM SENIOR TEST ENGINEER Weight 85.3 kg (188 lb) 2020 8:39 AM SENIOR TEST ENGINEER Height 180.3 cm (5' 10.98") 2020 8:39 AM SENIOR TEST ENGINEER Body Mass Index 26.23 2020 8:39 AM SENIOR TEST ENGINEER Plan of Treatment Health Maintenance Due Date Last Done Comments COLON CANCER SCREENING COLONOSCOPY 1945 PNEUMOCOCCAL 65+ YRS (1 of 1 - [id number] PCV13) 2010 MEDICARE ANNUAL WELLNESS (YEAR 2 or FIRST YEAR if no 12/08/2010 IPPE) INFLUENZA VACCINE (#1) 2019 DEPRESSION SCREENING (12+) 02/07/2020 Implants Implanted Type Area Trial Paralegal Device Identifier Shelf Model / Expiration Serial / Date Lot Stent Grft Excluder C3 31x14.5 [id number] - [id number] IMPLANTS N /A: LEANDRO SEBASTIAN & [id number] 10/15/2022 [id number] / Implanted: Qty: 1 on 12/13/2019 by Delano Barrett MD at [facility] Aorta ASSC:MED [facility] [id number] / Description:ABDOMINAL AORTA- RIGHT ILIAC Grft Leg Excluder [id number] - [id number] IMPLANTS L eft: LEANDRO SEBASTIAN & [id number] 06/23/2022 [id number] / Implanted: Qty: 1 on 12/13/2019 by Delano Barrett MD at [facility] Iliac ASSC:MED PRDT [id number] / Description:LEFT COMMON ILIAC. Stent Grft Excluder [id number] - [id number] IMPLANTS R ight: LEANDRO GORE & [id number] 01/04/2023 [id number] / Implanted: Qty: 1 on 12/13/2019 by Delano Barrett MD at [facility] Iliac ASSC:MED [id number] / PRDT Description:RIGHT COMMON ILIAC Patch Periph Vascu-Grd 0.8x8cm [id number] - [id number] IMPLAN TS Left: SYNOVIS [id number] 07/16/2024 [id number] / Implanted: Qty: 1 on 12/13/2019 by Colton Gupta MD at [facility] Arterial LIFE [id number] / TECH:SURG [id number] INNOV Description:Site: LEFT LOWER EXTREMITY Angio Seal Left: Arterial TERUMO VASCUTEK 09/06/19 21 [id number] / Implanted: Qty: 1 on 12/13/2019 by Colton Gupta MD at [facility] / [id number] Angio-Seal Vip Left: Arm Upper TERUMO MEDICAL MIGUEL. 10/06/2020 [id number] / Implanted: Qty: 1 on 2020 by Colton Gupta MD at [facility] / [id number] Procedures Procedure Name Priority Date/Time Associated Diagnosis Comme nts POCT-ACT Routine 2020 11:24 AM Results for this SENIOR TEST ENGINEER procedure are i n the results section. ECG 12-LEAD Routine 2020 10:50 AM Results for this SENIOR TEST ENGINEER procedure are i n the results section. 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 SARS-COV2/RT-PCR Routine 01/03/2020 10:25 AM Pre-op testing Re sults for this ([facility] & REF LABS) SENIOR TEST ENGINEER procedure are in the results section . POCT-GLUCOSE METER Routine 12/19/2019 7:18 AM Re sults for this SENIOR TEST ENGINEER procedure are i n the results section . CBC (HEMOGRAM ONLY) Routine 12/19/2019 4:49 AM R esults for this SENIOR TEST ENGINEER procedure are i n the results section . PHOSPHORUS Routine 12/19/2019 4:49 AM Results for this SENIOR TEST ENGINEER procedure are i n the results section . MAGNESIUM Routine 12/19/2019 4:49 AM Results for this SENIOR TEST ENGINEER procedure are i n the results section . BASIC METABOLIC PANEL Routine 12/19/2019 4:49 AM Results for this (7) SENIOR TEST ENGINEER procedure are i n the results section . POCT-GLUCOSE METER Routine 12/18/2019 9:00 PM Re sults for this SENIOR TEST ENGINEER procedure are i n the results section . POCT-GLUCOSE METER Routine 12/18/2019 4:56 PM Re sults for this SENIOR TEST ENGINEER procedure are i n the results section . POCT-GLUCOSE METER Routine 12/18/2019 11:16 AM Re sults for this SENIOR TEST ENGINEER procedure are i n the results section . ECG 12-LEAD Routine 12/18/2019 8:29 AM Results for this SENIOR TEST ENGINEER procedure are i n the results section . ECG 12-LEAD Routine 12/18/2019 8:29 AM SENIOR TEST ENGINEER Procedure Note - Interface, External Ris In - 12/18/2019 7:37 AM SENIOR TEST ENGINEER Ventricular Rate 135 BPM Atrial Rate 135 BPM P-R Interval 180 ms QRS Duration 88 ms Q-T Interval 350 ms QTC Calculation(Bazett) 525 ms P Middlebranch 23 degrees R Middlebranch 30 degrees T Middlebranch [address] & T wave abnormality, con manager scientific anterolateral ischemia Abnormal ECG When compared with ECG of 12:01, UT interval has decreased Vent. rate has increased BY [address] now depressed in Inferior leads ST now depressed in Anterola teral leads Nonspecific T wave abnormali ty now evident in Inferior leads T wave inversion now evident in Anterolateral leads POCT-GLUCOSE METER Routine 12/18/2019 7:37 AM Re sults for this SENIOR TEST ENGINEER procedure are i n the results section. SARS-COV2/RT-PCR ([facility] Routine 12/18/2019 5:39 AM Results for this & REF LABS) SENIOR TEST ENGINEER procedure are i n the results section. CBC (HEMOGRAM ONLY) Routine 12/18/2019 5:24 AM R esults for this SENIOR TEST ENGINEER procedure are i n the results section. PHOSPHORUS Routine 12/18/2019 5:24 AM Results for this SENIOR TEST ENGINEER procedure are i n the results section. MAGNESIUM Routine 12/18/2019 5:24 AM Results for this SENIOR TEST ENGINEER procedure are i n the results section. BASIC METABOLIC PANEL Routine 12/18/2019 5:24 AM Results for this (7) SENIOR TEST ENGINEER procedure are i n the results section. POCT-GLUCOSE METER Routine 12/17/2019 9:25 PM Re sults for this SENIOR TEST ENGINEER procedure are i n the results section. POCT-GLUCOSE METER Routine 12/17/2019 4:03 PM Re sults for this SENIOR TEST ENGINEER procedure are i n the results section. POCT-GLUCOSE METER Routine 12/17/2019 11:59 AM Re sults for this SENIOR TEST ENGINEER procedure are i n the results section. POCT-GLUCOSE METER Routine 12/17/2019 7:49 AM Re sults for this SENIOR TEST ENGINEER procedure are i n the results section. CBC (HEMOGRAM ONLY) Routine 12/17/2019 5:11 AM R esults for this SENIOR TEST ENGINEER procedure are i n the results section. PHOSPHORUS Routine 12/17/2019 5:11 AM Results for this SENIOR TEST ENGINEER procedure are i n the results section. MAGNESIUM Routine 12/17/2019 5:11 AM Results for this SENIOR TEST ENGINEER procedure are i n the results section. BASIC METABOLIC PANEL Routine 12/17/2019 5:11 AM Results for this (7) SENIOR TEST ENGINEER procedure are i n the results section. POCT-GLUCOSE METER Routine 12/16/2019 9:16 PM Re sults for this SENIOR TEST ENGINEER procedure are i n the results section. POCT-GLUCOSE METER Routine 12/16/2019 4:18 PM Re sults for this SENIOR TEST ENGINEER procedure are i n the results section. POCT-GLUCOSE METER Routine 12/16/2019 12:02 PM Re sults for this SENIOR TEST ENGINEER procedure are i n the results section. POCT-GLUCOSE METER Routine 12/16/2019 7:39 AM Re sults for this SENIOR TEST ENGINEER procedure are i n the results section. CBC (HEMOGRAM ONLY) Routine 12/16/2019 5:13 AM R esults for this SENIOR TEST ENGINEER procedure are i n the results section. APTT Routine 12/16/2019 5:13 AM Results for this SENIOR TEST ENGINEER procedure are i n the results section. PHOSPHORUS Routine 12/16/2019 5:13 AM Results for this SENIOR TEST ENGINEER procedure are i n the results section. MAGNESIUM Routine 12/16/2019 5:13 AM Results for this SENIOR TEST ENGINEER procedure are i n the results section. BASIC METABOLIC PANEL Routine 12/16/2019 5:13 AM Results for this (7) SENIOR TEST ENGINEER procedure are i n the results section. POCT-GLUCOSE METER Routine 12/15/2019 9:20 PM Re sults for this SENIOR TEST ENGINEER procedure are i n the results section. APTT Routine 12/15/2019 4:14 AM Results for this SENIOR TEST ENGINEER procedure are i n the results section. PHOSPHORUS STAT 12/15/2019 4:10 AM Results for this SENIOR TEST ENGINEER procedure are i n the results section. MAGNESIUM STAT 12/15/2019 4:10 AM Results for this SENIOR TEST ENGINEER procedure are i n the results section. BASIC METABOLIC PANEL STAT 12/15/2019 4:10 AM Results for this (7) SENIOR TEST ENGINEER procedure are i n the results section. CBC (HEMOGRAM ONLY) Routine 12/15/2019 4:09 AM R esults for this SENIOR TEST ENGINEER procedure are i n the results section. PREPARE RBC STAT 12/14/2019 11:54 PM Results for this SENIOR TEST ENGINEER procedure are i n the results section. POCT-GLUCOSE METER Routine 12/14/2019 10:34 PM Re sults for this SENIOR TEST ENGINEER procedure are i n the results section. APTT Routine 12/14/2019 9:01 PM Results for this SENIOR TEST ENGINEER procedure are i n the results section. POCT-GLUCOSE METER Routine 12/14/2019 6:05 PM Re sults for this SENIOR TEST ENGINEER procedure are i n the results section. APTT Routine 12/14/2019 2:42 PM Results for this SENIOR TEST ENGINEER procedure are i n the results section. MAGNESIUM STAT 12/14/2019 1:58 PM Results for this SENIOR TEST ENGINEER procedure are i n the results section. BASIC METABOLIC PANEL STAT 12/14/2019 1:58 PM Results for this (7) SENIOR TEST ENGINEER procedure are i n the results section. POCT-GLUCOSE METER Routine 12/14/2019 1:47 PM Re sults for this SENIOR TEST ENGINEER procedure are i n the results section. POCT-GLUCOSE METER Routine 12/14/2019 9:00 AM Re sults for this SENIOR TEST ENGINEER procedure are i n the results section. APTT Routine 12/14/2019 7:52 AM Results for this SENIOR TEST ENGINEER procedure are i n the results section. XR CHEST 1 VIEW STAT 12/14/2019 7:50 AM Resul ts for this PORTABLE/BEDSIDE SENIOR TEST ENGINEER procedure a re in the results section. APTT Routine 12/14/2019 5:07 AM Results for this SENIOR TEST ENGINEER procedure are i n the results section. BLOOD GAS, ARTERIAL Routine 12/14/2019 5:07 AM R esults for this SENIOR TEST ENGINEER procedure are i n the results section. PHOSPHORUS STAT 12/14/2019 3:28 AM Results for this SENIOR TEST ENGINEER procedure are i n the results section. MAGNESIUM STAT 12/14/2019 3:28 AM Results for this SENIOR TEST ENGINEER procedure are i n the results section. BASIC METABOLIC PANEL STAT 12/14/2019 3:28 AM Results for this (7) SENIOR TEST ENGINEER procedure are i n the results section. CBC (HEMOGRAM ONLY) Routine 12/14/2019 3:28 AM R esults for this SENIOR TEST ENGINEER procedure are i n the results section. POCT-GLUCOSE METER Routine 12/13/2019 11:24 PM Re sults for this SENIOR TEST ENGINEER procedure are i n the results section. XR CHEST 1 VIEW STAT 12/13/2019 11:20 PM Resul ts for this PORTABLE/BEDSIDE SENIOR TEST ENGINEER procedure a re in the results section. CALCIUM, IONIZED Routine 12/13/2019 11:12 PM Resu lts for this SENIOR TEST ENGINEER procedure are i n the results section. BLOOD GAS, ARTERIAL Routine 12/13/2019 11:12 PM R esults for this SENIOR TEST ENGINEER procedure are i n the results section. MAGNESIUM Routine 12/13/2019 11:10 PM Results for this SENIOR TEST ENGINEER procedure are i n the results section. PHOSPHORUS Routine 12/13/2019 11:10 PM Results for this SENIOR TEST ENGINEER procedure are i n the results section. PROTHROMBIN TIME/INR Routine 12/13/2019 11:10 PM Results for this SENIOR TEST ENGINEER procedure are i n the results section. APTT Routine 12/13/2019 11:10 PM Results for this SENIOR TEST ENGINEER procedure are i n the results section. BASIC METABOLIC PANEL Routine 12/13/2019 11:10 PM Results for this (7) SENIOR TEST ENGINEER procedure are i n the results section. CBC (HEMOGRAM ONLY) Routine 12/13/2019 11:10 PM R esults for this SENIOR TEST ENGINEER procedure are i n the results section. POCT-ACT Routine 12/13/2019 9:38 PM Results for this SENIOR TEST ENGINEER procedure are i n the results section. POCT-ACT Routine 12/13/2019 8:51 PM Results for this SENIOR TEST ENGINEER procedure are i n the results section. HGB/HCT (H&H) - STAT STAT 12/13/2019 8:48 PM Results for this LAB SENIOR TEST ENGINEER procedure are i n the results section. GLUCOSE-STAT LAB STAT 12/13/2019 8:48 PM Resu lts for this SENIOR TEST ENGINEER procedure are i n the results section. POTASSIUM-STAT LAB STAT 12/13/2019 8:48 PM Re sults for this SENIOR TEST ENGINEER procedure are i n the results section. SODIUM NA-STAT LAB STAT 12/13/2019 8:48 PM Re sults for this SENIOR TEST ENGINEER procedure are i n the results section. BLOOD GAS, ARTERIAL STAT 12/13/2019 8:48 PM R esults for this SENIOR TEST ENGINEER procedure are i n the results section. CALCIUM, IONIZED STAT 12/13/2019 8:48 PM Resu lts for this SENIOR TEST ENGINEER procedure are i n the results section. BLOOD GAS, ARTERIAL STAT 12/13/2019 8:48 PM R esults for this SENIOR TEST ENGINEER procedure are i n the results section. POCT-ACT Routine 12/13/2019 8:17 PM Results for this SENIOR TEST ENGINEER procedure are i n the results section. TRANSFUSE Routine 12/13/2019 7:48 PM LEUKO-REDUCED RED SENIOR TEST ENGINEER BLOOD CELLS TRANSFUSE Routine 12/13/2019 7:46 PM LEUKO-REDUCED RED SENIOR TEST ENGINEER BLOOD CELLS POCT-ACT Routine 12/13/2019 7:37 PM Results for this SENIOR TEST ENGINEER procedure are i n the results section. HGB/HCT (H&H) - STAT STAT 12/13/2019 7:31 PM Results for this LAB SENIOR TEST ENGINEER procedure are i n the results section. GLUCOSE-STAT LAB STAT 12/13/2019 7:31 PM Resu lts for this SENIOR TEST ENGINEER procedure are i n the results section. POTASSIUM-STAT LAB STAT 12/13/2019 7:31 PM Re sults for this SENIOR TEST ENGINEER procedure are i n the results section. SODIUM NA-STAT LAB STAT 12/13/2019 7:31 PM Re sults for this SENIOR TEST ENGINEER procedure are i n the results section. BLOOD GAS, ARTERIAL STAT 12/13/2019 7:31 PM R esults for this SENIOR TEST ENGINEER procedure are i n the results section. CALCIUM, IONIZED STAT 12/13/2019 7:31 PM Resu lts for this SENIOR TEST ENGINEER procedure are i n the results section. BLOOD GAS, ARTERIAL STAT 12/13/2019 7:31 PM R esults for this SENIOR TEST ENGINEER procedure are i n the results section. POCT-ACT Routine 12/13/2019 6:54 PM Results for this SENIOR TEST ENGINEER procedure are i n the results section. HGB/HCT (H&H) - STAT STAT 12/13/2019 6:18 PM Results for this LAB SENIOR TEST ENGINEER procedure are i n the results section. GLUCOSE-STAT LAB STAT 12/13/2019 6:18 PM Resu lts for this SENIOR TEST ENGINEER procedure are i n the results section. POTASSIUM-STAT LAB STAT 12/13/2019 6:18 PM Re sults for this SENIOR TEST ENGINEER procedure are i n the results section. SODIUM NA-STAT LAB STAT 12/13/2019 6:18 PM Re sults for this SENIOR TEST ENGINEER procedure are i n the results section. BLOOD GAS, ARTERIAL STAT 12/13/2019 6:18 PM R esults for this SENIOR TEST ENGINEER procedure are i n the results section. LACTIC ACID, ARTERIAL STAT 12/13/2019 6:18 PM Results for this SENIOR TEST ENGINEER procedure are i n the results section. CALCIUM, IONIZED STAT 12/13/2019 6:18 PM Resu lts for this SENIOR TEST ENGINEER procedure are i n the results section. BLOOD GAS, ARTERIAL STAT 12/13/2019 6:18 PM R esults for this SENIOR TEST ENGINEER procedure are i n the results section. THROMBECTOMY-LOWER 12/13/2019 5:10 PM Ischemia SENIOR TEST ENGINEER ANGIOGRAM-LOWER 12/13/2019 5:10 PM Ischemia EXTREMITY SENIOR TEST ENGINEER HC ARTERIAL(RAFIQ W Routine 12/13/2019 12:51 PM Res ults for this DOPPLER)ONLY SENIOR TEST ENGINEER procedure are i n the results section. HC ARTERIAL DOPPLER STAT 12/13/2019 12:51 PM R esults for this LEGS WINTER SENIOR TEST ENGINEER procedure are i n the results section. URINALYSIS W/ REFLEX Routine 12/13/2019 11:33 AM Results for this URINE CULTURE SENIOR TEST ENGINEER procedure are in the results section. URINE CULTURE Routine 12/13/2019 11:33 AM Results for this SENIOR TEST ENGINEER procedure are i n the results section. CBC W/PLT COUNT & AUTO STAT 12/13/2019 11:31 AM Results for this DIFFERENTIAL SENIOR TEST ENGINEER procedure are i n the results section. APTT STAT 12/13/2019 11:31 AM Results for this SENIOR TEST ENGINEER procedure are i n the results section. PROTHROMBIN TIME/INR STAT 12/13/2019 11:31 AM Results for this SENIOR TEST ENGINEER procedure are i n the results section. PHOSPHORUS STAT 12/13/2019 11:31 AM Results for this SENIOR TEST ENGINEER procedure are i n the results section. MAGNESIUM STAT 12/13/2019 11:31 AM Results for this SENIOR TEST ENGINEER procedure are i n the results section. CBC W/PLT COUNT & AUTO STAT 12/13/2019 11:31 AM Results for this DIFFERENTIAL SENIOR TEST ENGINEER procedure are i n the results section. BASIC METABOLIC PANEL STAT 12/13/2019 11:31 AM Results for this (7) SENIOR TEST ENGINEER procedure are i n the results section. XR CHEST 1 VIEW STAT 12/13/2019 11:20 AM Resul ts for this PORTABLE/BEDSIDE SENIOR TEST ENGINEER procedure a re in the results section. POCT-ACT Routine 12/13/2019 10:38 AM Results for this SENIOR TEST ENGINEER procedure are i n the results section. POCT-ACT Routine 12/13/2019 9:24 AM Results for this SENIOR TEST ENGINEER procedure are i n the results section. POCT-ACT Routine 12/13/2019 9:10 AM Results for this SENIOR TEST ENGINEER procedure are i n the results section. HGB/HCT (H&H) - STAT STAT 12/13/2019 8:13 AM Results for this LAB SENIOR TEST ENGINEER procedure are i n the results section. GLUCOSE-STAT LAB STAT 12/13/2019 8:13 AM Resu lts for this SENIOR TEST ENGINEER procedure are i n the results section. POTASSIUM-STAT LAB STAT 12/13/2019 8:13 AM Re sults for this SENIOR TEST ENGINEER procedure are i n the results section. SODIUM NA-STAT LAB STAT 12/13/2019 8:13 AM Re sults for this SENIOR TEST ENGINEER procedure are i n the results section. BLOOD GAS, ARTERIAL STAT 12/13/2019 8:13 AM R esults for this SENIOR TEST ENGINEER procedure are i n the results section. CALCIUM, IONIZED STAT 12/13/2019 8:13 AM Resu lts for this SENIOR TEST ENGINEER procedure are i n the results section. BLOOD GAS, ARTERIAL STAT 12/13/2019 8:13 AM R esults for this SENIOR TEST ENGINEER procedure are i n the results section. REPAIR,EVAR-ENDOVASCUL 12/13/2019 7:03 AM Ruptured ab dominal AR AORTIC ANEURYSM SENIOR TEST ENGINEER aortic aneurysm (AAA) (HCC) Special Needs (ICU BED NEEDED) (CELLAVISION MANUAL STAT 12/13/2019 4:22 AM R esults for this DIFF) SENIOR TEST ENGINEER procedure are i n the results section. CBC WITH PLATELET COUNT STAT 12/13/2019 4:22 AM Results for this + MANUAL DIFF SENIOR TEST ENGINEER procedure are in the results section. PHOSPHORUS STAT 12/13/2019 4:22 AM Results for this SENIOR TEST ENGINEER procedure are i n the results section. MAGNESIUM STAT 12/13/2019 4:22 AM Results for this SENIOR TEST ENGINEER procedure are i n the results section. CBC W/PLT+MANUAL DIFF STAT 12/13/2019 4:22 AM Results for this SENIOR TEST ENGINEER procedure are i n the results section. HEMOGLOBIN A1C Routine 12/13/2019 4:22 AM Result s for this SENIOR TEST ENGINEER procedure are i n the results section. BASIC METABOLIC PANEL STAT 12/13/2019 4:22 AM Results for this (7) SENIOR TEST ENGINEER procedure are i n the results section. PREPARE RBC Routine 12/12/2019 10:21 PM Results for this SENIOR TEST ENGINEER procedure are i n the results section. POCT-GLUCOSE METER Routine 12/12/2019 9:26 PM Re sults for this SENIOR TEST ENGINEER procedure are i n the results section. PROTHROMBIN TIME/INR STAT 12/12/2019 6:32 PM Results for this SENIOR TEST ENGINEER procedure are i n the results section. POCT-GLUCOSE METER Routine 12/12/2019 4:40 PM Re sults for this SENIOR TEST ENGINEER procedure are i n the results section. BASIC METABOLIC PANEL Routine 12/12/2019 4:27 PM Results for this (7) SENIOR TEST ENGINEER procedure are i n the results section. VASCULAR DIAGRAM -SCAN 12/12/2019 Resul ts for this procedure are i n the results section. ANTIBODY IDENTIFICATION STAT 12/11/2019 4:23 PM Aneurysm o f Results for this SENIOR TEST ENGINEER infrarenal procedure are i n abdominal aorta the results (HCC) section. HC CAROTID DOPPLER WINTER Routine 12/11/2019 1:52 PM Aneurysm of Results for this SENIOR TEST ENGINEER infrarenal procedure are i n abdominal aorta the results (HCC) section. XR CHEST 2 VIEWS Routine 12/11/2019 12:33 PM Aneurysm of Resu lts for this SENIOR TEST ENGINEER infrarenal procedure are i n abdominal aorta the results (HCC) section. ECG 12-LEAD Routine 12/11/2019 12:01 PM SENIOR TEST ENGINEER Procedure Note - Interface, External Ris In - 12/11/2019 1:28 PM SENIOR TEST ENGINEER Ventricular Rate 59 BPM Atrial Rate 59 BPM P-R Interval 230 ms QRS Duration 88 ms Q-T Interval 490 ms QTC Calculation(Bazett) 485 ms P Middlebranch 60 degrees R Middlebranch 27 degrees T Middlebranch 71 degrees Sinus bradycardia with 1st d egree A-V block Prolonged QT Abnormal ECG When compared with ECG of 15:05, No significant change was fo und ECG 12-LEAD Routine 12/11/2019 12:01 PM Aneurysm of Results for this SENIOR TEST ENGINEER infrarenal procedure are i n abdominal aorta the results (HCC) section. SARS-COV2/RT-PCR ([facility] Routine 12/11/2019 11:49 AM Pre-op test ing Results for this & REF LABS) SENIOR TEST ENGINEER procedure are i n the results section. (CELLAVISION MANUAL Routine 12/11/2019 10:38 AM Aneurysm of R esults for this DIFF) SENIOR TEST ENGINEER infrarenal procedure are i n abdominal aorta the results (HCC) section. CBC W/PLT COUNT & AUTO Routine 12/11/2019 10:38 AM Aneurysm of Results for this DIFFERENTIAL SENIOR TEST ENGINEER infrarenal procedure are i n abdominal aorta the results (HCC) section. DIRECT AHG STAT 12/11/2019 10:38 AM Aneurysm of Results for this (GARTH)/DIRECT KELVIN SENIOR TEST ENGINEER infrarenal procedur e are in abdominal aorta the results (HCC) section. TYPE AND SCREEN, STAT 12/11/2019 10:38 AM Aneurysm of Resu lts for this AUTOMATED SENIOR TEST ENGINEER infrarenal procedure are i n abdominal aorta the results (HCC) section. HEMOGLOBIN A1C Routine 12/11/2019 10:38 AM Aneurysm of Result s for this SENIOR TEST ENGINEER infrarenal procedure are i n abdominal aorta the results (HCC) section. Pre-op testing LACTATE DEHYDROGENASE Routine 12/11/2019 10:38 AM Aneurysm of Results for this ([facility]) SENIOR TEST ENGINEER infrarenal procedure are i n abdominal aorta the results (HCC) section. URINALYSIS W/ Routine 12/11/2019 10:38 AM Aneurysm of Results for this MICROSCOPIC SENIOR TEST ENGINEER infrarenal procedure are i n abdominal aorta the results (HCC) section. HEPATITIS C ANTIBODY Routine 12/11/2019 10:38 AM Aneurysm of Results for this SENIOR TEST ENGINEER infrarenal procedure are i n abdominal aorta the results (HCC) section. LIPASE Routine 12/11/2019 10:38 AM Aneurysm of Results for this SENIOR TEST ENGINEER infrarenal procedure are i n abdominal aorta the results (HCC) section. AMYLASE Routine 12/11/2019 10:38 AM Aneurysm of Results for this SENIOR TEST ENGINEER infrarenal procedure are i n abdominal aorta the results (HCC) section. HEPATITIS B PANEL Routine 12/11/2019 10:38 AM Aneurysm of Res ults for this SENIOR TEST ENGINEER infrarenal procedure are i n abdominal aorta the results (HCC) section. RETICULOCYTE COUNT Routine 12/11/2019 10:38 AM Aneurysm of Re sults for this SENIOR TEST ENGINEER infrarenal procedure are i n abdominal aorta the results (HCC) section. APTT Routine 12/11/2019 10:38 AM Aneurysm of Results for this SENIOR TEST ENGINEER infrarenal procedure are i n abdominal aorta the results (HCC) section. PROTHROMBIN TIME/INR Routine 12/11/2019 10:38 AM Aneurysm of Results for this SENIOR TEST ENGINEER infrarenal procedure are i n abdominal aorta the results (HCC) section. PROTEIN, TOTAL Routine 12/11/2019 10:38 AM Aneurysm of Result s for this SENIOR TEST ENGINEER infrarenal procedure are i n abdominal aorta the results (HCC) section. ALT (SGPT) Routine 12/11/2019 10:38 AM Aneurysm of Results for this SENIOR TEST ENGINEER infrarenal procedure are i n abdominal aorta the results (HCC) section. AST (SGOT) Routine 12/11/2019 10:38 AM Aneurysm of Results for this SENIOR TEST ENGINEER infrarenal procedure are i n abdominal aorta the results (HCC) section. BILIRUBIN, DIRECT Routine 12/11/2019 10:38 AM Aneurysm of Res ults for this SENIOR TEST ENGINEER infrarenal procedure are i n abdominal aorta the results (HCC) section. BILIRUBIN, ADULT TOTAL Routine 12/11/2019 10:38 AM Aneurysm of Results for this SENIOR TEST ENGINEER infrarenal procedure are i n abdominal aorta the results (HCC) section. ALKALINE PHOSPHATASE Routine 12/11/2019 10:38 AM Aneurysm of Results for this SENIOR TEST ENGINEER infrarenal procedure are i n abdominal aorta the results (HCC) section. ALBUMIN Routine 12/11/2019 10:38 AM Aneurysm of Results for this SENIOR TEST ENGINEER infrarenal procedure are i n abdominal aorta the results (HCC) section. HC LAB HIV-1 AG Routine 12/11/2019 10:38 AM Aneurysm of Resul ts for this W/HIV-1&2 AB SENIOR TEST ENGINEER infrarenal procedure are i n abdominal aorta the results (HCC) section. BASIC METABOLIC PANEL Routine 12/11/2019 10:38 AM Aneurysm of Results for this (7) SENIOR TEST ENGINEER infrarenal procedure are i n abdominal aorta the results (HCC) section. CBC W/PLT COUNT & AUTO Routine 12/11/2019 10:38 AM Aneurysm of Results for this DIFFERENTIAL SENIOR TEST ENGINEER infrarenal procedure are i n abdominal aorta [...] POC ACTIVATED CLOTTING TIME (2020 11:24 AM SENIOR TEST ENGINEER)Only the most recent of9 resultswithin the time period is included. Activated Clotting [address] [facility] Comment: [facility] : 74-137 seconds, Baseline CENTER : TESTED AT [address], [id number] : Stamp Clerk/Carcass Splitter ID = [id number] for CLAU GREGG Specimen Blood Performing Organization Address City/State/Zipcode Phone Number [address] [phone] CENTER ECG 12 lead (2020 10:50 AM SENIOR TEST ENGINEER)Only the most recent of3 resultswithin the time period is included. Specimen Narrative Performed At Ventricular Rate 51 BPM GE MUSE Atrial Rate 166 BPM QRS Duration 92 ms Q-T Interval 524 ms QTC Calculation(Bazett) 482 ms P Middlebranch 41 degrees R Middlebranch -6 degrees T Middlebranch 56 degrees Sinus bradycardia Cannot rule out Anterior infarct , age u ndetermined Prolonged QT Abnormal ECG 18 DEC 2019 Sinus bradycardia replaced AVNRT ST no longer depressed precordial leads QT has shortened Confirmed by MD MUSHTAQ, RADHA ([id number]) on 2020 1:28:53 PM Procedure Note Interface, External Ris In - 2020 1:29 PM SENIOR TEST ENGINEER Ventricular Rate 51 BPM Atrial Rate 166 BPM QRS Duration 92 ms Q-T Interval 524 ms QTC Calculation(Bazett) 482 ms P Middlebranch 41 degrees R Middlebranch -6 degrees T Middlebranch 56 degrees Sinus bradycardia Cannot rule out [...] Ordered by an unspecified provider. SARS-CoV2/RT-PCR ([facility]) (01/03/2020 10:25 AM SENIOR TEST ENGINEER)Only the most recent of3 resultswithin the time period is included. SARS-COV2/RT-PCR Negative Not Detected, [facility] Negative, See [facility] external report CENTER for linked test SARS-COV-2 [facility] GENEVIEVERA LUCIANO PRUETT [facility] PERFORMING LAB [facility] Specimen Other - Nasopharyngeal wall structure (b ludwig structure) Narrative Performed At Negative result for this test determines that [facility] SARS-CoV-2 RNA was not present [...] the Act. Fact Sheet for Healthcare Providers: https://www.[employer]/sites/default/files/pro duct/documents/Fact_Sheet_HC_Providers_Lyra_SA RS-CoV-2.pdf Fact Sheet for Healthcare Patients: https://www.[employer]/sites/default/files/pro duct/documents/Fact_Sheet_Patients_Lyra_SARS-C oV-2.pdf Performing Laboratory: [address] [address] Performing Organization Address City/[facility]/Zipcode Phone Number [address] [address] [place] POC-Glucose meter (12/19/2019 7:18 AM SENIOR TEST ENGINEER)Only the most recent of21 results within the time period is included. Pathologist [facility] POC-Glucose Meter 121 (H) 70 - 110 mg/dL [facility] Comment: [facility] : TESTED AT [address], [address] CENTER : Stamp Clerk/Carcass Splitter ID = [id number] for YESSI VERGARA Specimen Blood Performing Organization Address [facility]/Zipcode Phone Number [address] [address] [place] CBC (hemogram only) (12/19/2019 4:49 AM SENIOR TEST ENGINEER)Only the most recent of7 results within the time period is included. Pathologist Sig nature WBC 48.4 (H) 3.5 - 10.5 K/L [facility] RBC 2.60 (L) 4.63 - 6.08 M/L [facility] Hemoglobin 8.4 (L) 13.7 - 17.5 GM/DL [facility] Hematocrit 27.2 (L) 40.1 - 51.0 % [facility] MCV 104.6 (H) 79.0 - 92.[address] [facility] MCH 32.3 (H) 25.7 - 32.[address] [facility] MCHC 30.9 (L) 32.3 - 36.5 GM/DL [facility] RDW 16.7 (H) 11.6 - 14.4 % [facility] Platelets 139 (L) 150 - 450 K/CU MM [facility] MPV 10.6 9.4 - 12.[address] [facility] nRBC 0 0 - 0 /[address] [facility] Specimen Blood Performing Organization Address City/[facility] Centercode Phone Number [address] [address] CENTER Phosphorus (12/19/2019 4:49 AM SENIOR TEST ENGINEER)Only the most recent of9 resultswithin the time period is included. Pathologist Sig nature Phosphorus 2.9 2.3 - 4.7 mg/dL [facility] Specimen Blood Narrative Performed At Stamp Clerk ID - [facility] Performing Organization Address [facility] Centercowi Phone Number [address] [address] CENTER Magnesium (12/19/2019 4:49 AM SENIOR TEST ENGINEER)Only the most recent of10 resultswithin the time period is included. Pathologist Sig nature Magnesium 2.1 1.6 - 2.6 mg/dL [facility] Specimen Blood Narrative Performed At Stamp Clerk ID - [facility] Performing Organization Address City/[facility] Centercode Phone Number [address] [address] CENTER Basic Metabolic Panel (12/19/2019 4:49 AM SENIOR TEST ENGINEER)Only the most recent of12 results within the time period is included. Sodium 140 136 - 145 meq/L [facility] Potassium 3.7 3.5 - 5.1 meq/L [facility] Chloride 109 (H) 98 - 107 meq/L [facility] CO2 25 22 - 29 meq/L [facility] BUN 20 7 - 21 mg/dL [facility] Creatinine 1.29 (H) 0.57 - 1.25 [facility] mg/dL [facility] Glucose 130 (H) 70 - 105 mg/dL [facility] Calcium 8.6 8.4 - 10.2 [facility] mg/dL [facility] EGFR 54Comment: ESTIMATED mL/min/1.[address] [facility] GFR IS NOT m [facility] ACCURATE CENTER CREATININE CLEARANCE IN PREDICTING GLOMERULAR FILTRATION RATE. ESTIMATED GFR IS NOT APPLICABLE FOR DIALYSIS PATIENTS. Specimen Blood Narrative Performed At Stamp Clerk DEVIKA Ortiz [facility] Performing Organization Address City/State/Zipcode Phone Number [facility] [address] [place] [address] CENTER aPTT (12/16/2019 5:13 AM SENIOR TEST ENGINEER)Only the most recent of9 resultswithin the time period is included. Pathologist Sig nature PTT 39.6 (H) 22.5 - 36.[address] [facility] Specimen Blood Performing Organization Address City/[facility]/Zipcode Phone Number [facility] [address] [place] [address] CENTER Prepare RBC (12/14/2019 11:54 PM SENIOR TEST ENGINEER)Only the most recent of2 resultswithin the time period is included. Pathologist Sig nature Unit ABO O Pos SAFETRACE TX UNIT NUMBER [id number] SAFETRACE TX Status TX_TIMEINCHART SAFETRACE TX Blood Bank Product RED BLOOD CELLS SAFETRACE TX PRODUCT CODE [id number] SAFETRACE TX Unit ABO O Pos SAFETRACE TX UNIT NUMBER [id number] SAFETRACE TX Status WORK IN PROGRESS SAFETRACE TX Blood Bank Product RED BLOOD CELLS SAFETRACE TX PRODUCT CODE [id number] SAFETRACE TX Unit ABO A Pos SAFETRACE TX UNIT NUMBER [id number] SAFETRACE TX Status TX_TIMEINCHART SAFETRACE TX Blood Bank Product RED BLOOD CELLS SAFETRACE TX PRODUCT CODE [id number] SAFETRACE TX Unit ABO A Pos SAFETRACE TX UNIT NUMBER [id number] SAFETRACE TX Status WORK IN PROGRESS SAFETRACE TX Blood Bank Product RED BLOOD CELLS SAFETRACE TX PRODUCT CODE [id number] SAFETRACE TX CROSSMATCH INCOMPATIBLE SAFETRACE TX CROSSMATCH INCOMPATIBLE SAFETRACE TX CROSSMATCH INCOMPATIBLE SAFETRACE TX CROSSMATCH INCOMPATIBLE SAFETRACE TX Performing Organization Address City/State/Zipcode Phone Number SAFETRACE TX XR chest 1 view portable / bedside (12/14/2019 7:50 AM SENIOR TEST ENGINEER)Only the most recent of3 resultswithin the time period is included. Specimen Narrative Performed At FINAL REPORT [facility] Chest, one view. HISTORY: post-extubation COMPARISON: Radiograph [...] Report Verified Date/Time: 12/14/2019 08:16:23 Reading Location: [facility] B1 C013Y CT [facility] Room Procedure Note Interface, External Ris In - 12/14/2019 8:18 AM SENIOR TEST ENGINEER FINAL REPORT Chest, one view. HISTORY: post-extubation [...] Verified Date/Time: 12/14/2019 0 8:16:23 Reading Location: [facility] B1 C013Y CT Body R eading Room Performing Organization Address City/State/[facility] Centercode Phone Number [facility] Blood gas, arterial (12/14/2019 5:07 AM SENIOR TEST ENGINEER)Only the most recent of6 results within the time period is included. Pathologist Sig nature pH, Arterial 7.39 7.35 - 7.45 [facility] pCO2, Arterial 36 35 - [address] [facility] pO2, Arterial 112 (H) 80 - [address] [facility] O2 Sat, Arterial 97.8 (H) 96.0 - 97.0 % [facility] HCO3, Arterial 21 21 - 29 mmol/L [facility] Base Excess, Arterial -3.4 (L) -2.0 - 3.0 [facility] mmol/L [facility] Patient Temperature 38.4 [facility] FIO2 60.0 [facility] Specimen Blood, Arterial Performing Organization Address [facility] Centercowi Phone Number [address] [address] [place] Calcium, Ionized (12/13/2019 11:12 PM SENIOR TEST ENGINEER)Only the most recent of5 resultswithin the time period is included. Pathologist [facility] nature Calcium, Ion 1.20 1.12 - 1.27 mmol/L [facility] pH, Blood 7.31 [facility] Specimen Blood Performing Organization Address City/[facility]/Zipcode Phone Number [facility] [address] [place] [address] [place] Prothrombin time/INR (12/13/2019 11:10 PM SENIOR TEST ENGINEER)Only the most recent of4 results within the time period is included. Pathologist Sig nature Protime 17.6 (H) 11.9 - 14.[address] [facility] INR 1.49 <=5.90 [facility] Specimen Blood Narrative Performed At Effective 07/04/2018: PT Reference Range [facility] Change New: 11.9-14.2 Previous: 11.7-14.7 RECOMMENDED COUMADIN/WARFARIN INR THERAPY RANGES STANDARD DOSE: 2.0-3.0 Includes: PROPHYLAXIS for venous thrombosis, systemic embolization; TREATMENT for venous thrombosis and/or pulmonary embolus. HIGH RISK: Target INR is 2.5-3.5 for patients wiht mechanical heart valves. Performing Organization Address City/[facility] Centercode Phone Number [address] [address] [place] Potassium-Stat Lab (12/13/2019 8:48 PM SENIOR TEST ENGINEER)Only the most recent of4 results within the time period is included. Pathologist Sig nature Potassium 4.0 3.6 - 5.5 meq/L [facility] Specimen Blood, Arterial Performing Organization Address City/[facility] Centercode Phone Number [address] [address] CENTER Sodium Na-Stat Lab (12/13/2019 8:48 PM SENIOR TEST ENGINEER)Only the most recent of4 results within the time period is included. Pathologist Sig nature Sodium 138 136 - 145 meq/L [facility] Specimen Blood, Arterial Performing Organization Address City/[facility] Centercode Phone Number [address] [address] CENTER Glucose-Stat Lab (12/13/2019 8:48 PM SENIOR TEST ENGINEER)Only the most recent of4 resultswithin the time period is included. Pathologist Sig nature Glucose 138 (H) 70 - 110 mg/dL [facility] Specimen Blood, Arterial Performing Organization Address [facility] Centercode Phone Number [address] [address] CENTER HGB/HCT (H&H)-Stat Lab (12/13/2019 8:48 PM SENIOR TEST ENGINEER)Only the most recent of4 resultswithin the time period is included. Pathologist Sig nature Hemoglobin 10.1 (L) 13.0 - 16.8 GM/DL [facility] Hematocrit 30.0 (L) 40.0 - 50.0 % [facility] Specimen Blood, Arterial Performing Organization Address [facility] Centercode Phone Number [address] [address] CENTER Transfuse Leuko-Red RBC (12/13/2019 7:48 PM SENIOR TEST ENGINEER)Only the most recent of2 resultswithin the time period is included.Lactic Acid, Arterial (12/13/2019 6:18 PM SENIOR TEST ENGINEER) Pathologist Sig [facility] Lactate, Art 0.7 0.5 - 2.2 mmol/L [facility] Specimen Blood, Arterial Narrative Performed At Stamp Clerk ID - BS [facility] Performing Organization Address City/[facility] Centercowi Phone Number [address] [address] CENTER RAFIQ's Only(Ankle/Brachial Index) (12/13/2019 12:51 PM SENIOR TEST ENGINEER) Pathologist Sig nature Ejection Fraction [facility] ECHO HEARTLAB MKCK ESSON CPACS Specimen Impressions Performed At Right Impression [facility] ECHO HEARTLAB MKCKESSON CPACS 1. The [...] At LAB - Lower Extremity Arterial Proced [facility] ECHO HEARTLAB CKESSON [facility] Demographics Patient Name IDANIA TERRY Date of Study 12/13/2019 DEBORAH III Age 74 Visit Number [id number] Gender Male Accession Number [id number] Date of 1945 Referring delano payne Room Number 2C20 Physician Position Classification Specialist Cm Anderson S Interpreting Cyndi Pastor T [...] External Ris In - 12/14/2019 9:47 AM SENIOR TEST ENGINEER PV LAB - Lower Extremity Arterial Procedure Demographics Patient Name IDANIA TERRY ate of Study 12/13/2019 DEBORAH III A Radico 74 Visit Number [id number] G willard Male Accession Number [id number] D ate of 1945 Referring delano johnom Number [id number] Physician Position Classification Specialist Cm Anderson RVS I nterpreting Cyndi Pastor [...] cm Performing Organization Address City/State/Zipcode Phone Number [facility] Arterial doppler legs bilateral (12/13/2019 12:51 PM SENIOR TEST ENGINEER) [facility] Sig nature Ejection Fraction [facility] Specimen Impressions Performed At Right Impression [facility] 1. The common femoral, profunda femoral and [...] + + + + + + !Prox REED CLEANER ! !143 ! ! ! !0 ! ! ! + + + + + + + + + + !Mid REED CLEANER ! !23.6 ! ! ! !0 ! ! ! + + + + + + + + + + !Dist REED CLEANER ! !0 ! ! ! !0 ! [...] At LAB - Lower Extremity Arterial Duplex [facility] ECHO HEARTLAB MKCKESSON [facility] Demographics Patient Name IDANIA TERRY Date of Study 12/13/2019 DEBORAH III Age 74 Visit Number [id number] Gender Male Accession Number [id number] Date of 1945 Referring Oneil Wick Room Number 2C20 Physician Position Classification Specialist Cm Anderson RVS Interpreting Cyndi Pastor RVT [...] External Ris In - 12/14/2019 9:47 AM SENIOR TEST ENGINEER PV LAB - Lower Extremity Arterial Duplex Demographics Patient Name IDANIA TERRY ate of Study 12/13/2019 DEBORAH III A ge 74 Visit Number [id number] G willard Male Accession Number [id number] D ate of 1945 Referring Oneil juarez Number [id number] Physician Position Classification Specialist Cm Anderson RVS I nterpreting Cyndi Pastor RVT Normna story MD Procedure Type of Study: Extremities [...] + + + + + + !Prox REED CLEANER ! !143 ! ! ! !0 ! ! ! + + + + + + + + + + !Mid REED CLEANER ! !23.6 ! ! ! !0 ! ! ! + + + + + + + + + + !Dist REED CLEANER ! !0 ! ! ! !0 ! [...] + Reflex to Culture (12/13/2019 11:33 AM SENIOR TEST ENGINEER) Color, UA Light Yellow [facility] Clarity, UA Cloudy [facility] Specific [place], 1.036 (H) 1.001 - 1.035 [facility] pH, UA 6.0 5.0 - 8.0 [facility] Protein, UA 30 mg/dL (A) Negative [facility] Glucose, UA Negative Negative [facility] Ketones, UA Negative Negative [facility] Bilirubin, UA Negative Negative [facility] Blood, UA Small (A) Negative [facility] Nitrite, UA Negative Negative [facility] Leukocytes, UA Large (A) Negative [facility] Urobilinogen, UA 0.2 0.2 - 1.0 mg/dL [facility] RBC, UA 18 /HPF [facility] WBC, UA 769 /HPF [facility] Bacteria, UA Rare [facility] Specimen Source [facility] Specimen Urine - Urinary catheter, device (physic al object) Narrative Performed At Stamp Clerk ID - [auto] [facility] Stamp Clerk ID - tech Performing Organization Address City/[facility]/Zipcode Phone Number [address] [address] [place] Urine culture (12/13/2019 11:33 AM SENIOR TEST ENGINEER) Pathologist Sig nature Result No growth [facility] [place] Specimen Urine - Urinary catheter, device (physic al object) Performing Organization Address [facility] Centercode Phone Number [address] [address] [place] CBC with platelet count + automated diff (12/13/2019 11:31 AM SENIOR TEST ENGINEER)Only the most recent of2 resultswithin the time period is included. Pathologist Sig nature WBC 67.7 (HH) 3.5 - 10.5 K/L [facility] RBC 2.72 (L) 4.63 - 6.08 M/L [facility] Hemoglobin 8.6 (L) 13.7 - 17.5 GM/DL [facility] Hematocrit 26.8 (L) 40.1 - 51.0 % [facility] MCV 98.5 (H) 79.0 - 92.[address] [facility] MCH 31.6 25.7 - 32.[address] [facility] MCHC 32.1 (L) 32.3 - 36.5 GM/DL [facility] RDW 17.5 (H) 11.6 - 14.4 % [facility] Platelets 155 150 - 450 K/CU MM [facility] MPV 10.4 9.4 - 12.[address] [facility] nRBC 0 0 - 0 /[address] [facility] Specimen Blood Performing Organization Address City/State/Zipcode Phone Number [facility] [address] [place] [address] CENTER CBC with platelet count + manual diff (12/13/2019 4:22 AM SENIOR TEST ENGINEER) Pathologist Sig nature WBC 64.8 (HH) 3.5 - 10.5 K/L [facility] RBC 2.93 (L) 4.63 - 6.08 M/L [facility] Hemoglobin 9.1 (L) 13.7 - 17.5 GM/DL [facility] Hematocrit 28.7 (L) 40.1 - 51.0 % [facility] MCV 98.0 (H) 79.0 - 92.[address] [facility] MCH 31.1 25.7 - 32.[address] [facility] MCHC 31.7 (L) 32.3 - 36.5 GM/DL [facility] RDW 17.4 (H) 11.6 - 14.4 % [facility] Platelets 172 150 - 450 K/CU MM [facility] MPV 10.1 9.4 - 12.[address] [facility] nRBC 0 0 - 0 /[address] [facility] Specimen Blood Performing Organization Address City/State/Zipcode Phone Number [facility] [address] [place] [address] CENTER Manual Differential (12/13/2019 4:22 AM SENIOR TEST ENGINEER)Only the most recent of2 results within the time period is included. Pathologist Sig nature % Neutros 4 % [facility] % Lymphs 92 % [facility] % Eos 2 % [facility] % Metamyelo 1 (H) 0 - 0 % [facility] % Atypical Lymphs 1 (H) 0 - 0 % [facility] # Neutros 2.59 1.78 - 5.38 [facility] # Lymphs 59.62 (H) 1.32 - 3.57 [facility] # Eos 1.30 (H) 0.04 - 0.54 [facility] # Metamyelo 0.65 (H) 0.00 - 0.00 [facility] # Atypical Lymphs 0.65 (H) 0.00 - 0.00 [facility] Total Counted 100 [facility] RBC Morphology Normal [facility] WBC Morphology Normal [facility] Platelet Morphology Normal [facility] Specimen Blood Narrative Performed At Stamp Clerk ID - [id number] [facility] Performing Organization Address City/State/Zipcode Phone Number [facility] [address] [place], [place] [phone] CENTER Hemoglobin A1c (12/13/2019 4:22 AM SENIOR TEST ENGINEER)Only the most recent of2 resultswithin the time period is included. Pathologist Sig nature Hemoglobin A1C 5.2 4.3 - 6.1 % [facility] Specimen Blood Narrative Performed At Please recheck [facility] Please recheck Performing Organization Address City/State/Zipcode Phone Number [facility] [address] [place] [address] CENTER VASCULAR DIAGRAM -SCAN (12/12/2019) Narrative Performed At This result has an attachment that is no t available. Ordered by an unspecified provider. Antibody identification (12/11/2019 4:23 PM SENIOR TEST ENGINEER) ANTIBODY ID UNID IgG [place] (BEAKER) WARM AUTO AB Antibody Consult SIGNED OUTComment: Warm [place] panagglutinin detected, ok to transfuse incompatible bloodElectronic Signature: Shmuel Woo M.D. Specimen Performing Organization Address City/State/Zipcode Phone Number [place] Carotid doppler bilateral (12/11/2019 1:52 PM SENIOR TEST ENGINEER) Pathologist Sig nature Ejection Fraction [facility] Specimen Impressions Performed At Right Impression [facility] 1. There is <50% diameter reduction (approximately [...] At PV LAB - Carotid Duplex Study [facility] Demographics Patient Name IDANIA TERRY Date of Study 12/11/2019 DEBORAH III Age 74 Visit Number [id number] Gender Male Accession Number [id number] Date of 1945 Referring Casey Payne NP Room Number Physician Position Classification Specialist Peter Forbes T Interpreting Caryl Gao, Physician [...] External Ris In - 12/12/2019 7:51 AM SENIOR TEST ENGINEER PV LAB - Carotid Duplex Study Demographics Patient Name IDANIA TERRY D ate of Study 12/11/2019 DEBORAH III A ge 74 Visit Number [id number] G willard Male Accession Number [id number] D ate of 1945 Referring Casey Payne NP R oom Number Physician Position Classification Specialist Peter Forbes T I nterpreting Norman Pastor [...] XR chest 2 views (12/11/2019 12:33 PM SENIOR TEST ENGINEER) Specimen Narrative Performed At FINAL REPORT GE [...] Report Verified Date/Time: 12/11/2019 13:32:39 Reading Location: [email or web address] Reading Room Procedure Note Interface, External Ris In - 12/11/2019 1:34 PM SENIOR TEST ENGINEER FINAL REPORT PA and Lateral views of the chest dated 12/11/2019 Clinical information: pre-op Comment: Heart is normal in size. Thora cic aorta is ectatic. Pulmonary vasculature is unremarkable. L ungs are clear. No pulmonary infiltrate or pleural effusion is presen t. Impression: No active cardiopulmonary d isease. Signed: Vamsi Johns MD Report Verified Date/Time: 12/11/2019 1 3:32:39 Reading Location: [email or web address] Reading Room Performing Organization Address City/State/Zipcode Phone Number GE RIS Type and screen, automated (12/11/2019 10:38 AM SENIOR TEST ENGINEER) ABO/RH AUTOMATED A POSITIVE [facility] (BEAKER) [facility] Ab Scrn POSITIVEComment: [address] Specimen Blood Performing Organization Address City/[facility]/Zipcode Phone Number [facility] [address] [place] [address] HIV-1 Antigen with HIV-1/2 Antibody (12/11/2019 10:38 AM SENIOR TEST ENGINEER) Pathologist Sig nature HIV-1 Antigen with Nonreactive Nonreactive [facility] HIV 1&2 Antibody [facility] Specimen Blood Narrative Performed At Stamp Clerk ID - ADMIN [facility] Performing Organization Address City/[facility]/[place] [address] [place] Hepatitis B Panel (12/11/2019 10:38 AM SENIOR TEST ENGINEER) Pathologist Sig nature Hep B Core Total Ab Nonreactive Nonreactive [facility] Hep B S Ab <8.0 <8.0 mIU/mL [facility] HBsAg Screen Nonreactive Nonreactive [facility] Specimen Blood Narrative Performed At Stamp Clerk ID - ADMIN [facility] Performing Organization Address City/[facility] [place] [address] [place] Hepatitis C antibody (12/11/2019 10:38 AM SENIOR TEST ENGINEER) Pathologist Sig nature Hepatitis C Ab Nonreactive Nonreactive [facility] Specimen Blood Narrative Performed At Stamp Clerk ID - ADMIN [facility] Performing Organization Address City/[facility] [place] [address] [place] Urinalysis w/Microscopic (12/11/2019 10:38 AM SENIOR TEST ENGINEER) Color, UA Light Yellow [facility] Clarity, UA Hazy [facility] Specific [place], 1.011 1.001 - 1.035 [facility] pH, UA 6.5 5.0 - 8.0 [facility] Protein, UA 10 mg/dL (A) Negative [facility] Glucose, UA 1000 mg/dL (A) Negative [facility] Ketones, UA Negative Negative [facility] Bilirubin, UA Negative Negative [facility] Blood, UA Small (A) Negative [facility] Nitrite, UA Negative Negative [facility] Leukocytes, UA Large (A) Negative [facility] Urobilinogen, UA 0.2 0.2 - 1.0 mg/dL [facility] RBC, UA 4 /HPF [facility] WBC, UA 152 /HPF [facility] Mucus Rare [facility] Squam Epithel, UA <1 /HPF [facility] Specimen Source [facility] Specimen Urine Narrative Performed At Stamp Clerk ID - [auto] [facility] Stamp Clerk ID - tech Performing Organization Address [facility] Phone Number [address] [address] CENTER Reticulocyte count (12/11/2019 10:38 AM SENIOR TEST ENGINEER) Pathologist Sig nature % Retic 3.3 (H) 0.5 - 1.8 % [facility] Specimen Blood Narrative Performed At Stamp Clerk ID - [id number] [facility] Performing Organization Address [facility] Phone Number [address] [address] CENTER Direct [facility] (GARTH)/Direct Kelvin (12/11/2019 10:38 AM SENIOR TEST ENGINEER) Pathologist Sig nature Direct [facility]-IGG POSITIVEComment [facility] 4+ [facility] Direct [facility]-C3B, C3D POSITIVEComment [facility] Micro+ [facility] Specimen Blood Performing Organization Address [facility] Phone Number [address] [address] ALT (SGPT) (12/11/2019 10:38 AM SENIOR TEST ENGINEER) Pathologist Sig nature ALT 12 6 - 55 U/L [facility] Specimen Blood Narrative Performed At Stamp Clerk ID - ADMIN [facility] Performing Organization Address City/[facility] Phone Number [address] [address] CENTER AST (SGOT) (12/11/2019 10:38 AM SENIOR TEST ENGINEER) Pathologist Sig nature AST 12 5 - 34 U/L [facility] Specimen Blood Narrative Performed At Stamp Clerk ID - ADMIN [facility] Performing Organization Address City/[facility] Phone Number [address] [address] CENTER Protein, total (12/11/2019 10:38 AM SENIOR TEST ENGINEER) Pathologist Sig [facility] Protein, Total 6.1 6.0 - 8.3 gm/dL [facility] Specimen Blood Narrative Performed At Stamp Clerk ID - ADMIN [facility] Performing Organization Address City/[facility] Phone Number [address] [address] CENTER Alkaline phosphatase (12/11/2019 10:38 AM SENIOR TEST ENGINEER) Pathologist Sig nature Alkaline Phosphatase 93 40 - 150 U/L [facility] Specimen Blood Narrative Performed At Stamp Clerk ID - ADMIN [facility] Performing Organization Address City/[facility] Phone Number [address] [address] CENTER Lipase (12/11/2019 10:38 AM SENIOR TEST ENGINEER) Pathologist Sig nature Lipase 22 8 - 78 U/L [facility] Specimen Blood Narrative Performed At Stamp Clerk ID - ADMIN [facility] Performing Organization Address City/[facility]/Zipcode Phone Number [address] [address] CENTER Lactate dehydrogenase (LDH) (12/11/2019 10:38 AM SENIOR TEST ENGINEER) Pathologist Sig nature LDH 177 125 - 220 U/L [facility] DICAL [place] Specimen Blood Narrative Performed At Stamp Clerk ID - ADMIN [facility] Performing Organization Address [facility] Phone Number [address] [address] CENTER Bilirubin, direct (12/11/2019 10:38 AM SENIOR TEST ENGINEER) Pathologist Sig nature Bilirubin, Direct 0.4 0.1 - 0.5 mg/dL [facility] Specimen Blood Narrative Performed At Stamp Clerk ID ADMIN [facility] Performing Organization Address [facility] Phone Number [address] [address] [place] Bilirubin, adult total (12/11/2019 10:38 AM SENIOR TEST ENGINEER) Pathologist Sig nature Total Bilirubin 0.9 0.2 - 1.2 mg/dL [facility] Specimen Blood Narrative Performed At Stamp Clerk ID [facility] Performing Organization Address [facility] Phone Number [address] [address] CENTER Amylase (12/11/2019 10:38 AM SENIOR TEST ENGINEER) Pathologist Sig nature Amylase 30 25 - 125 U/L [facility] Specimen Blood Narrative Performed At Stamp Clerk ID - ADMIN [facility] Performing Organization Address [facility] Phone Number [address] [address] CENTER Albumin (12/11/2019 10:38 AM SENIOR TEST ENGINEER) Pathologist Sig nature Albumin 4.1 3.5 - 5.0 g/dL [facility] [place] Specimen Blood Narrative Performed At Stamp Clerk ID - ADMIN [facility] Performing Organization Address City/State/Zipcode Phone Number [facility] [address] [place] [address] CENTER Pulmonary Funct Lab Spirometry (11/21/2019 10:30 AM CDT) Narrative Performed At Bianca Ly RRT, CASHIER CLERK 020 12:31 PM [facility] PFT CHARTING REPORT Infection Control/Hand Hygiene procedure s followed throughout the encounter with patient: Yes Patient Identification Method: Patient n bairon verified on armband, and Medical record on armband, Is the order complete?: Yes Account ID#: [id number] Patient Name: Idania Terry III Birthdate: 1945 [...] SpO2 [id number] Study Date: 11/21/19 [facility] Time: 1050 ASSESSMENT History & Physical [...] Specimen Narrative Performed At FINAL REPORT [facility] EXAM: CTA OF THE THORACOABDOMINAL AORTA AND [...] evaluation, multiplanar reconstruction, maximum intensity projections, and [employer] off-line postprocessing were performed on a dedic ated stand-alone workstation under the direct supervision of the inte [facility] physician. FINDINGS: Potential study limitations: None. [...] nonobstructing atherosclerotic changes throughout the abdominal aorta. Director Of Development And Marketing dimensions of the thoraci c aorta are [...] Report Verified Date/Time: 11/05/2019 14:08:15 Reading Location: [place] [address] Procedure Note Interface, External Ris In - [...] evaluation, multiplanar reconstruction, maximum intensity projections, and [employer] off-line postprocessing were performed on a dedic ated stand-alone workstation under the direct supervision of the [facility] physician. FINDINGS: Potential study limitations: None. LINES/ [...] nonobstructing atherosclerotic changes throughout the abdominal aorta. Director Of Development And Marketing dimensions of the thoraci c aorta are [...] Verified Date/Time: 11/05/2019 1 4:08:15 Reading Location: [place] [address] Performing Organization Address City/State/Zipcode Phone Number [facility] CT/CTA abdomen & pelvis - For AAA (11/05/2019 8:01 AM CDT) Specimen Narrative Performed At FINAL REPORT [facility] EXAM: CTA OF THE THORACOABDOMINAL AORTA AND [...] evaluation, multiplanar reconstruction, maximum intensity projections, and [employer] off-line postprocessing were performed on a dedic ated stand-alone workstation under the direct supervision of the inte [facility] physician. FINDINGS: Potential study limitations: None. [...] nonobstructing atherosclerotic changes throughout the abdominal aorta. Director Of Development And Marketing dimensions of the thoraci c aorta are [...] Report Verified Date/Time: 11/05/2019 14:08:15 Reading Location: [place] [address] Procedure Note Interface, External Ris In - [...] evaluation, multiplanar reconstruction, maximum intensity projections, and [employer]D off-line postprocessing were performed on a dedic ated stand-alone workstation under the direct supervision of the inte [facility] physician. FINDINGS: Potential study limitations: None. [...] nonobstructing atherosclerotic changes throughout the abdominal aorta. Director Of Development And Marketing dimensions of the thoraci c aorta are [...] Verified Date/Time: 11/05/2019 1 4:08:15 Reading Location: [place] [address] Performing Organization Address City/State/Zipcode Phone Number [facility] POC-Creatinine (11/05/2019 7:25 AM CDT) POC-Creatinine 1.7 (H)Comment: : 0.6 - 1.3 [facility] mg/dL [facility] [address] [place] [address]: Stamp Clerk/Technicia n ID = [id number] for IRVIN LOMBARDI POC-EGFR 40 mL/min/1.73M2 [facility] Specimen Blood Performing Organization Address City/[facility]/Zipcode Phone Number [place] [phone] CENTER after 02/27/2019 Insurance Payer Benefit Plan / Subscriber ID Effective Dates Phone Addre ss Type Group MEDICARE MEDICARE A B [id number] 2009-Presen Medicare t [facility] [id number] 2019-Present [employer] SUPPLEMENT/[facility] [employer] Advance Directives For more information, please contact: [phone] Code Status Date Activated Date Inactivated Comments [...]
--- OUTSIDE RECORDS SUMMARY | 2020-02-28 22:19 | XMS REPORT | Continuity of Care Document ---
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/27/19 06/01/2017 [place] reflux uropathy, 18 Yogesh d unspecified Hematuria, 05/27/19 06/01/2017 [place] unspecified 18 [place] LUMBAR STENOSIS Active 08/20/[id number] M54.16 - Active 07/21/19 RPECIOUS "RADICULOPATHY, 17 Herm torin LUMBAR REGION" Cerebrovascular Resolved Problem 03/27/2018 Mis terrence accident Neuro, (disorder) [facility], PRECIOUS Clements,Diana Chavez, PRECIOUS [facility] [place] Hematoma Resolved Problem 03/27/2018 [facility] (disorder) Neuro,[facility], PRECIOUS Clements,M Jaquelin Chavez, PRECIOUS [facility] [place] 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/27/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 to 8.6 MG Oral Rachelle-Colace. Tablet Docusate Sodium 1 tab, PO, Active Gray gar 50 MG / BID, X 14 day, 2017 [facility] sennosides, NURSING HOME # 28 tab, 0 8.6 MG Oral Refill(s), Tablet Pharmacy: [id number] ciprofloxacin 500 500 mg = 1 Active [place] mg oral tablet tab, PO, Q12H, 2017 [place] X 7 day, # 14 tab, 0 Refill(s), Pharmacy: [id number] Demarcus Notes: May Inactive Sugar interfere 2018 [...] No Longer Sugar MG / Hydrocodone as: [place] Active 2017 [place] Bitartrate 5 MG 325/5) [...] MG TAB, Dosing Oral Tablet Weight 89.545, [[place] 5/325] kg, ONCE, STAT, Start date: 05/26/17 [...] DO NOT Inactive Javada s CRUSH. 2017 [facility] Center Lisinopril Notes: (Same No Longer Javad as as: Prinivil, Active 2016 Medical Zestril) [place] Famotidine 20 MG 20 mg = 1 tab, Active [facility] Oral Tablet PO, BID, # 20 2017 Medica l tab, 0 Center Refill(s) magnesium citrate 8.725 gm = 150 No Longer 09/23 [facility] 58.2 MG/ML Oral ml, PO, Daily, Active 2016 M edical Solution X 2 day, # 300 Center mL, 0 Refill(s) Acetaminophen 325 1 tab, PO, Active [facility] MG / Hydrocodone Q6H, PRN for 2017 Fl dical Bitartrate 10 MG pain, X 14 Cent er Oral Tablet day, # 90 tab, [[place] 10/325] 0 Refill(s) Methocarbamol 500 500 mg = 1 Active [facility] MG Oral Tablet tab, PO, Q8H, 2017 Med ical [Robaxin] PRN Spasms, X Center 10 day, # 30 tab, 0 Refill(s) {21 See Active [facility] (Methylprednisolo Instructions, 2017 Medical ne 4 MG [...] 2017 Medical (Do Not Crush) Center sennosides, NURSING HOME Notes: (Same No Longer [facility] [place] as: Senokot) Active 2017 Medical Center [...] Acetaminophen 325 Notes: Do not No Longer [place] MG / Hydrocodone exceed 4gm/day Active 2016 [facility] Bitartrate 10 MG of Center Oral Tablet acetaminophen. [[place] 10/325] (Same as: [place] 325/10) Dilaudid Notes: Same No Longer [facility] as: Dilaudid Active 2016 Medical [place] Bisacodyl Notes: (Same [place] Longer [place] As: Dulcolax, Active 2016 [facility] Bisco-Lax) Center phenol Notes: No Longer [place] Chloraseptic Active 2016 Medical [place] (Same Center as: Chloraseptic, Sore Throat [place]) WASTE: F/P - Black; E - Municipal Trash [employer] Melatonin 3 MG Notes: (Same No Longer [place] Extended Release as: Melatonin) Active 2017 Medical Tablet Center Benadryl Notes: (Same No Longer [facility] as: Benadryl) Active 2017 Medical Center ceFAZolin Notes: Same No Longer [facility] as: Ancef Active 2016 Medical Center Allergies, Adverse Reactions, Alerts No Known Medication Allergies Immunizations No Data Provided for This Section Results Order Name Results Value Reference Date Interpretation Comments Sulema rce Range HEMATOLOGY MCHC 32.2 32.0 - 05/29 [place] 36.0 [facility] HEMATOLOGY MPV 8.6 7.4 - 10.4 05/29 [facility] HEMATOLOGY Platelet 222 133 - 450 05/29 [...] HEMATOLOGY Platelet 225 133 - 450 05/28 [facility] HEMATOLOGY RDW 16.4 11.5 - 05/28 [place] 14.5 [place] HEMATOLOGY MCH 27.8 27.0 - 05/28 Sugar 31.0 [facility] HEMATOLOGY MCHC 32.2 32.0 - 05/28 [place] 36.0 [facility] HEMATOLOGY MCV 86.2 80.0 - 05/28 [place] 94.0 [place] HEMATOLOGY Hct 35.5 42.0 - 05/28 [place] 54.0 [facility] HEMATOLOGY MPV 8.2 7.4 - 10.4 05/28 [facility] HEMATOLOGY Hgb 11.4 14.0 - 05/28 [place] 18.0 [place] HEMATOLOGY RBC 4.13 4.70 - 05/28 [place] 6.10 [facility] HEMATOLOGY WBC 51.0 3.7 - 10.4 05/28 Result Comment: [facility] Critical Result(s) called to HANDY Garcia at 05/28/2017 05:59 by LOBSTER CATCHER. Read back OK. CHEM PANEL eGFR 68 05/27 Result Comment: The [facility] eGFR is calculated using the CKD-EPI formula. [...] 0.0 - 0.2 05/27 [place] /2017 [facility] HEMATOLOGY Anisocyte 1+ None Seen 05/27 [place] *ABN* /2017 [place] (05/27/17 8:34 AM) HEMATOLOGY Eosinophils 0.2 0.0 - 0.5 05/27 [place] # /2017 [facility] HEMATOLOGY Segs 19.3 45.0 - 05/27 [place] 75.0 /2017 [facility] HEMATOLOGY Plt Morph Normal 05/27 [place] (05/27/17 8:34 AM) /2017 [facility] HEMATOLOGY Lymphocytes 78.6 20.0 - 05/27 [place] 40.0 /2017 [facility] HEMATOLOGY Platelet 213 133 - 450 05/27 [place] /2017 [facility] HEMATOLOGY MPV 8.5 7.4 - 10.4 05/27 [place] /2017 [facility] HEMATOLOGY MCHC 33.0 32.0 - 05/27 [place] 36.0 [facility] HEMATOLOGY RDW 16.4 11.5 - 05/27 [place] 14.5 [facility] HEMATOLOGY Hgb 12.4 14.0 - 05/27 [place] 18.0 [facility] HEMATOLOGY MCV 86.8 80.0 - 05/27 [place] 94.0 [facility] HEMATOLOGY Hct 37.4 42.0 - 05/27 [place] 54.0 [facility] HEMATOLOGY MCH 28.7 27.0 - 05/27 [place] 31.0 [facility] HEMATOLOGY WBC 56.8 3.7 - 10.4 05/27 Result /2017 Comment: [facility] Critical Result(s) called to Nadeem Ayala Rn at 05/27/2017 08:53 by Bry. Read back OK. HEMATOLOGY RBC 4.31 4.70 - 05/27 Sugar 6.10 [facility] BLOOD BANK ABO/Rh A POS 05/27 [place] RESULTS /2017 [facility] BLOOD BANK Antibody Negative 05/27 [place] RESULTS Scrn (05/27/17 1:34 AM) [facility] BLOOD BANK Platelet Product available 05/27 [place] RESULTS product (05/27/17 1:25 AM) /2017 [facility] CHEM PANEL eGFR 49 05/27 Result [place] /2017 Comment: The [facility] eGFR is calculated using the CKD-EPI formula. [...] 35.8 [place] CHEM PANEL eGFR 54 09/19 [facility] Comment: The Medical eGFR is [...] PANEL AGAP 15.8 10.0 - 09/19 Result [facility] 20. Comment: Medical Collection Center date/time has [...] BUN 18 7 - 22 09/19 Result [facility] Comment: Medical Collection Center date/time has been modified to: 15:35:00. Previous collection date/time: 16:41:00. CHEM PANEL Sodium Lvl 144 135 - 145 09/19 Result [facility] Comment: Medical Collection Center date/time has been modified to: 15:35:00. Previous collection date/time: 16:41:00. CHEM PANEL Creatinine 1.31 0.50 - 09/19 Result [facility] 1.40 Comment: Medical Collection Center date/time has been modified to: 15:35:00. Previous collection date/time: 16:41:00. CHEM PANEL Potassium 3.8 3.5 - 5.1 09/19 Result [facility] Comment: Medical Collection Center date/time has been modified to: 15:35:00. Previous collection date/time: 16:41:00. Pathology Reports No Data Provided for This Section Diagnostic Reports Report Value Date Source Bladder US Bladder Ultrasound 05/27/2017 [facility] History: Hematuria - looking for blood [...] study. Bladder US EXAM: 05/27/2017 [facility] Urinary bladder ultrasound. CLINICAL HX: Hematuria. [...] -- Two subcentimeter ovo id foci of [id number] restricted diffusion, consistent with acute lacunar infarcts, [...] n outpatient basis. On 12/28/2016 4:30 PM COMMODITIES BROKER, a call was placed to to notify the referring clinician's office that this exam has important findings p otentially requiring urgent follow-up and to direct their attention to the report for details. There was no response after several attempts, and no voicemail option was available. Several unsuccessful attempts were subsequently m pierce to reach the patient at the provided number of [phone]. A generic message was left on the [...] edema, compression or myelomal acia. 4. Bilateral anterior/cloth worker ior triangle and supraclavicular adenopathy, reactive or neoplastic. Correlate with history. 5. 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 SL: [id number] Spine Thoracic wo Patient Name: IDANIA TERRY 08/11/2016 PRECIOUS [place] contrast MRI : 1945; Age: 71 years y/o Male MR: [id number] Study: Spine Thoracic wo contrast MRI 08/11/2016 [...] canal stenosis or neural foraminal narrowing. SL: [id number] Spine cervical wo Study: Spine cervical wo contrast MRI 08/12/19 [facility] [place] contrast [facility] Clinical Indication: G95.9 Disease of [...] of the cervical s keith cord. SL: [id number] Spine lumbar flex/ext EXAM: XR LUMBAR SPINE [...] Date Comments Source Heart Rate 63 05/29/2017 [place] Temperature Oral (F) 97.8 F 05/29/2017 [facility] [place] Respitory Rate 18 05/29/2017 [facility] [place] Systolic (mm Hg) 145 05/29/2017 [facility] [place] Diastolic (mm Hg) 83 05/29/2017 [place] L and Respitory Rate 18 05/29/2017 [facility] [place] Heart Rate 64 05/29/2017 [place] Temperature Oral (F) 97.4 F 05/29/2017 [place] Systolic (mm Hg) 156 05/29/2017 [place] Diastolic (mm Hg) 86 05/29/2017 MH [place] L and Respitory Rate 18 05/29/2017 [place] Temperature Oral (F) 98 F 05/29/2017 [place] Heart Rate 59 05/29/2017 [facility] [place] Systolic (mm Hg) 158 05/29/2017 [facility] [place] Diastolic (mm Hg) 69 05/29/2017 [place] L and BMI Calculated 27.32 05/27/2017 [place] Height 177.8 cm 05/27/2017 [place] Weight 86.364 05/27/2017 [place] Weight 89.545 05/27/2017 [facility] [place] Weight 90.909 12/28/2016 [facility] Neuro BMI Calculated 28.76 12/28/[facility] Height 177.8 cm 12/28/2016 [facility] Heart Rate 74 12/28/2016 [facility] Neuro Systolic (mm Hg) 163 12/28/2016 [facility] Julio ro Diastolic (mm Hg) 82 12/28/2016 [facility] Ne uro Temperature Oral (F) 97.8 F 12/28/2016 [facility] Heart Rate 89 09/24/2016 [place] [facility] Temperature Oral (F) 97.5 F 09/24/2016 [facility] Respitory Rate 18 09/24/2016 [facility] juju Center Systolic (mm Hg) 176 09/24/2016 [facility]ical Center Diastolic (mm Hg) 83 09/24/2016 [facility] [place] Heart Rate 84 09/24[facility] Systolic (mm Hg) 143 09/24/2016 [facility] dical Center Diastolic (mm Hg) 73 09/24/2016 [facility] Respitory Rate 17 09/24/2016 [facility] Temperature Oral (F) 98.5 F 09/24/2016 [facility] Temperature Oral (F) 98.1 F 09/24/2016 [facility] Systolic (mm Hg) 146 09/24/2016 [facility] Diastolic (mm Hg) 79 09/24/[address] [facility] Respitory Rate 18 09/24/2016 [facility] Heart Rate 70 09/24/2016 [facility] BMI Calculated 29.48 09/22/2016 [facility] Weight 93.182 09/22/2016 [facility] Height 177.8 cm 09/22/2016 [facility] Weight 90.455 09/19/2016 [facility] BMI Calculated 28.61 09/19/2016 [facility] Height 177.8 cm 09/19/2016 [facility] Encounters Location Location Encounter Encounter Reason Attending ADM MI Stat us Source Details Type Number For Provider Date Date Visit Outpatient [id number] TJ ALICIA 07/20 Acti ve [facility] Outpt Diag [id number] Tj Alicia 07/20 07/21 [facility] Herm torin [facility] Outpt Diag [id number] Tj Alicia 08/11 08/12 [facility] [place] Outpatient [id number] TJ ALICIA 08/17 Acti ve [facility] Outpatient [id number] TJ ALICIA 09/19 [facility] [id number] TJ ALICIA 09/19 [facility] [id number] TJ ALICIA 09/22 Acti ve [facility] Observation [id number] Tj Alicia 09/22 09/24 [facility] Outpatient [id number] [place] 10/07 Active [facility] Outpatient [id number] TJ ALICIA 11/14 [facility]i ve [facility] Phone [id number] 12/23 12/25 [facility] Message Neuro MNA Spine Phone [id number] 12/26 12/28 [facility] Message Neuro Outpatient [id number] TJ MICHEL 12/28 [facility] [place] [facility] Outpatient [id number] Javi 12/28 12/29 [facility] 8 Aayush Neuro [facility] Outpt Diag [id number] Rufina 12/28 12/29 [facility] 0 [facility] Spine Phone [id number] 01/02 01/04 [facility] Message Neuro [facility] Sp[facility] Phone [id number] 01/03 01/05 [facility] Message Neuro [facility] Phone [id number] 01/16 01/18 [facility] Message Neuro Outpatient [id number] TJ MICHEL 02/13 [facility] [place] [facility] Ambulatory [id number] Javi 02/13 02/13 [facility] Pre-Reg 7 Aayush Neur o MNA Spine Phone [id number] 03/15 03/17 [place] [facility] TM Message Neuro [facility] [id number] Chata 05/27 05/29 Christel Clements 1 [place] MNA Spine Phone [id number] 09/06 09/08 [facility] TM Message Neuro Procedures Procedure Code Date Perfomer Comments Source Bladder irrigation, 947[address] 05/28/2017 Gray gar [place] simple, lavage and/or instillation Bladder operation [id number] [facility] Neuro,[facility], PRECIOUS Clements, OPID Scott, [facility] [place] Drainage [id number] [facility] Neuro,[facility], PRECIOUS Clements, OPID Scott, OPID [facility] [place] Lymph node [id number] [facility] operation Neuro,[facility], PRECIOUS Clements, TYRAD Scott, OPID [facility] [place] Assessment and Plan Assessment and Plan Date Source Extracted from:Title: Progress Note * 05/29/2017 DARREN Billy Author: Colton Angel MD Date: 05/29/17 Impression and Plan Gross hematuria with clot retention afte r urodynamics at [facility]. Patient has been on aspirin and [...] Gross hematuria after urodynamics at [facility]. Patient was on aspirin and Plavix at [...] History TypeResponse 09/19/2016 [facility] Alcohol Current, Frequency: 1-2 times per year. [...]
--- OUTSIDE RECORDS SUMMARY | 2020-02-28 22:25 | XMS REPORT | Continuity of Care Document ---
:1945 Author Organization [facility] t Address [address] [place] [address] Care Team Providers Name Role Phone Ella [...] Attending Clinician ELLA Attending Clinician Unavailable 1, [facility] Room Attending Clinician Unavailable GEE LO Attending [...] Expiration Date Sour ce Number MEDICAREMEDICARE A [id number] [facility] [id number] 2009- 00:00:00 - Medical PresentMedicare Center [facility] [id number] [address] [facility] SUPPLEMENT/INDIVIDUALA 00:00:00 - [id number]02/2019-PresentMedigap Problems Condition Condition Condition Status Onset Resolution Last Treating Co mments Source Name Details Category Date Date Treatment Clinician Date PVD PVD Disease Active 2019-[address] [facility] (periphera (periphera 130 Yaa kes - l vascular l vascular 00:00: Me dical disease) disease) 00 Center Lower limb Lower limb Disease Active 2019-[address] ischemia- ischemia- 02-11 Luke s - Left lower Left lower 00:00: Me dical extremity, extremity, 00 Ce nter chronic chronic vs. acute vs. acute post-opera post-opera tively tively Abdominal Abdominal Disease Active 2019-[address] [facility] aortic aortic 1-05 [facility] - aneurysm aneurysm 00:00: Medica l (HCC) s/p (HCC) s/p 00 [facility] er EVAR EVAR 12/13/2019 12/13/2019 CKD CKD [...] Disease Active 2016-[address] [facility] (cerebral (cerebral 2- Luke s - vascular vascular 00:00: Medica l accident) accident) 00 Cent er (HCC) with (HCC) with residual residual left-sided left-sided weakness weakness Paroxysmal Paroxysmal Disease Active 2016-[address] atrial atrial - [facility] - fibrillati fibrillati 00:00: Me dical on on 00 Center CLL CLL Disease Active 2016-[address] [facility] (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[facility] - lymphocyti lymphocyti 00:00: Me dical c c 00 Center leukemia) leukemia) Essential Essential Disease Active 2016-[address] hypertensi hypertensi - Yaa kes - on on 00:00: Medical 00 Center History of History of Disease Active 2016-[address] lacunar lacunar - [facility] - cerebrovas cerebrovas 00:00: Me dical cular cular 00 [place] accident accident (CVA) (CVA) LUMBAR Diagnosis Active 2016-10-17 Mem oria STENOSIS 14 14:47:00 l LUMBAR 00:00: [place] STENOSIS 00 Active 08/19/2016 [facility] M54.16 - Diagnosis Active 2016-07-20 M emoria "RADICULOP 6-14 12:52:00 l ATHY, M54.16 - 00:01: Dieudonne n LUMBAR "RADICULOP 00 REGION" ATHY, LUMBAR REGION" Active 07/20/2016 OPID [place] Mitral Mitral Disease Active [place] valve valve 06-06 Methodi insufficie insufficie 00:00: st ncy ncy 00 Panlobular Panlobular Disease Active H jordan emphysema emphysema 06-06 Meth rosario 00:00: st 00 Peripheral Peripheral Disease Active H jordan vascular vascular 06-06 Method i disease disease 00:00: st 00 Pitting Pitting Disease Active [place] edema edema 06-06 Methodi 00:00: st 00 Myelopathy Myelopathy Disease Active H jordan of of 06-06 Methodi cervical cervical 00:00: st spinal spinal 00 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 radiculopa thy thy SVT SVT Disease Active [place] (supravent (supravent 06-06 Ia thodi ricular ricular 00:00: st tachycardi tachycardi 00 a) a) CLL CLL Disease Active [place] (chronic (chronic 5-01 Method i lymphocyti lymphocyti 00:00: st 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) Hematoma Problem Resolve 2018-03-27 Me moria (disorder) d 14:50:09 l Hematoma Dieudonne n (disorder) Resolved Problem 03/27/2018 [facility], PRECIOUS Clements, PRECIOUS Chavez,M PRECIOUS [facility] [place] Hypertensi Problem Active 2018-03-27 M emoria ve 14:50:09 l disorder, [place] systemic Hypertensi arterial ve (disorder) disorder, systemic arterial (disorder) Active Problem 03/27/2018 [facility], PRECIOUS Cle[place], PRECIOUS Chavez,M OPIMarcio [facility] [place] Tobacco Tobacco Disease Active [facility] use use [facility] Obstructiv Problem 2017-06-01 2017-06-01 Memoria e and 4-20 02:24:06 02:24:06 l reflux 05:00: [place] uropathy, Obstructiv 00 unspecifie e and d reflux uropathy, unspecifie d 05/26/2017 06/01/2017 [place] Hematuria, Problem 2017-2017-06-01 2017-06-01 Memoria unspecifie 4-20 02:24:06 02:24:06 l d 05:00: [place] Hematuria, 00 unspecifie d 05/26/2017 06/01/2017 [place] History of Past Illness Condition Condition Condition [...] Palpitations Heart [facility] xacin ty to 09-07 rate [facility] - adverse 00:00: increase. Medica l reaction 00 Center s [place] Propensi Active Swelling 2016-02 Lip and [place] ty to 2-24 tongue Methodi adverse 00:00: swelling st reaction [...] 2016-02 Irregular Leon hedrine ty to Comments) 2-23 heart Method i adverse 00:00: beat st reaction 00 s to drug Clonidin Propensi Active Severe 2016-[address] [facility] e ty to 2-23 extremely [facility] - adverse 00:00: depressed Medica l reaction 00 Center s Pseudoep Propensi Active Other (See 2016-[address] hedrine ty to Comments) 2-23 heart [facility] - adverse 00:00: beat Medical reaction 00 Center s Meperidi Drug Active 2016-[address] ne Allergy 2-11 reaction( [facility]ukes - 00:00: s): Medical 00 Unknown Center Family History Family Member Diagnosis Comments Start Date Stop Date Source Natural father Cancer [place] [facility] Natural father Hypertension [place] [employer] Natural father Aneurysm [facility] Natural mother Arthritis [place] [facility] Natural mother COPD [facility] Social History Social Habit Start Date Stop Date Quantity Comments Source History of tobacco Current smoker [facility] Cigarettes smoked 2020-01-07 2020-01-07 [facility] Yaaoleg - current (pack per 00:00:00 00:00:00 [facility] Center day) - Reported Cigarette 2020-01-07 2020-01-07 [facility] St Yaaoleg - pack-years 00:00:00 00:00:00 [facility] Tobacco use and 2020-01-07 2020-01-07 Never used [facility] ke - exposure 00:00:00 00:00:00 [facility] Alcohol intake 2020-01-07 2020-01-07 Ex-drinker [facility] St Sonia es - 00:00:00 00:00:00 (finding) Medical [place] Social History 2016-09-19 2016-09-19 [facility] 20:24:11 20:24:11 Alcohol Comment 2016-05-25 2016-05-25 willis Mckeon ethodist 00:00:00 00:00:00 Smoking Status Start Date Stop Date Source Former smoker 2020-01-07 00:00:00 2020-01-07 00:00:[address] [facility] Social History 2016-07-21 10:16:13 [facility] garcia Medications Ordered Filled Start Stop Current Ordering Indication Dosage Frequency Signature Comments Components Source Medication Medication Date Date Medication? Clinician (SIG) Name Name rosuvastati 2019-02 Yes 10mg Take [address] [facility] n (CRESTOR) -30 by mouth Luke s - 10 MG 14:40: At bedtime Medica l tablet 15 . Center traMADoL 2019-02- Yes 50mg Take [address] [facility] [facility] (Ultram) 50 -05 01-30 tablet (50 L ukes - mg tablet 00:00: 23:59 mg total) Me dical 00 :00 by mouth Center every 6 (six) hours as needed for Pain. Max Daily Amount: 200 mg aspirin 81 2019-02- Yes 81mg QD Take [address] MG EC -19 12- tablet (81 [facility] - tablet 00:00: 23:59 [...] QD Take [address] [facility] MG EC -19 12-12 tablet (81 [facility] - tablet 00:00: 00:00 [...] Medic al 24 hr 51 :00 daily. [place] capsule clopidogrel 2019-02- No 75mg QD Take [address] [facility] (PLAVIX) 75 02-17 by mouth Sonia es - mg tablet 08:27: 00:00 daily. Medic al 51 :00 [place] aspirin 81 2019-02- No 81mg QD Take [address] MG EC 02-17 by mouth [facility]ukes - tablet 08:27: 00:00 daily. Medical 51 :00 [place] VALSARTAN 2019-02- No 160mg QD Take [address] ORAL 02-17 mg by [facility]ukes - 08:27: 00:00 mouth Medical 51 :00 daily . [place] nebivolol 2019-02- No 5mg QD Take [address] (BYSTOLIC) 02-17 by mouth Luke s - 5 MG tablet 08:27: 00:00 nightly. edical 51 :00 [place] clopidogreL 2019-02 No 75mg QD Take [address] (PLAVIX) 75 02-17 tablet (75 L ukes - mg tablet 00:00: 23:59 mg total) Me dical 00 :00 by mouth Center daily for 60 days. dilTIAZem 2019-02- No 60mg [...] 00:00 mouth Medical (DIOVAN-HCT 00 :00 daily. [place] ) 160-12.5 mg per tablet Docusate No Notes: Memoria Sodium 50 4-23 (Same as l MG / 22:00: Senokot-S) Tyree perezsides, 00 Equiv. to FDC 8.6 MG Rachelle-Colac Oral Tablet e. Docusate Yes 1 tab, PO, Mem oria Sodium 50 4-23 BID, X 14 l MG / 17:38: day, # 28 Tyree sennosides, 00 tab, 0 FDC 8.6 MG Refill(s), Oral Tablet Pharmacy: [facility] ciprofloxac Yes 500 mg = 1 Memoria in 500 mg 4-23 tab, PO, l oral tablet 17:38: Q12H, X 7 H ermann day, # 14 tab, 0 Refill(s), Pharmacy: [facility] Cipro No Notes: May Memori a 4-23 interfere l 14:00: w/enteral Tyree 00 feedings - Take 1 hr before or 2 hrs after antacids, dairy pdt & minerals. On empty stomach. Normal No Notes: For Memor ia Saline for 4-23 irrigation l Irrigation 02:30: only. Dieudonne n 00 Sodium No Notes: For Memor ia Chloride 4-23 irrigation l 02:22: only. [place] 00 Diltiazem No Notes: Memori a Hydrochlori 4-22 (Same as: l de ER 21:00: Cardizem [place] CD) Do Not Crush Before meals. 24 HR Yes 240 mg = 1 Memori a Diltiazem -22 cap, PO, l Hydrochlori 15:24: Daily, 0 He rmann de 240 MG 00 Refill(s) Extended Release Capsule [Cartia] clopidogrel No 75 mg = 1 M emoria 75 MG Oral 4-22 tab, PO, l Tablet 15:24: Daily, 0 [place] [Plavix] 00 Refill(s) Aspirin No 81 mg, 0 Memori a -22 Refill(s) l 15:24: [place] nebivolol Yes 10 mg = 1 Mem oria 10 MG Oral 4-22 tab, PO, l Tablet 15:24: Daily, 0 [place] [Bystolic] 00 Refill(s) Bystolic No Notes: Memoria 4-22 (same as: l 14:00: Bystolic) [place] 00 Crestor No Notes: Memoria 4-22 (Same As: l 02:00: Crestor) Tyree 00 Docusate No Notes: Memoria 4-21 (Same as: l 14:00: Colace) [place] 00 (Do Not Crush) Lisinopril No Notes: Memor ia 4-21 (Same as: l 14:00: Prinivil, Tyree 00 Zestril) Clonidine No Notes: Memori a Hydrochlori -21 (Same As: l de 0.1 MG 14:00: [...] not exceed l 07:05: 4 gm/day. Tyree 00 (Same as: Tylenol) Acetaminoph No Notes: Juan Alberto verónica en 325 MG / -21 (Same as: l Hydrocodone 07:05: [place] nn Bitartrate 00 325/5) Do 5 MG Oral not exceed Tablet 4gm/day of acetaminop hen. Morphine No Notes: Memoria 4-21 (Same l 07:05: as:MORPhin [place] 00 e Sulfate) Ondansetron No Notes: Juan Alberto verónica -21 (Same as: l 07:05: Zofran) Tyree MEDICATION WASTE Product Size: 4 mg Product Wasted: ___ mg Irrigation No Notes: For M emoria w/ Normal 4-21 irrigation l Saline 07:00: only. [place] 00 Sodium No Notes: For Memor ia Chloride -21 irrigation l 0.0769 07:00: only. Tyree MEQ/ML 00 Irrigation Solution Sodium No 250 mL, Memoria Chloride 05-27 Rate: To l 0.9% 06:25: prime line [place] (titrate) 00 and flush 250 mL remaining blood products., Dosing Weight 89.545, kg, Route: IV, Total Volume: 250, Start Date: 05/27/17 1:25:00 CDT, Duration: 30 day, Stop date: 06/26/17 1:24:00 CDT, Replace Every: 24 hr Irrigation No Notes: For M emoria w/ Normal 4-21 irrigation l Saline 05:58: only. [place] 00 Irrigation No Notes: For M emoria w/ Normal 4-21 irrigation l Saline 04:45: only. [place] 00 Saline No Notes: Memoria Flush 0.9% 05-27 (Same as: l 04:12: BD [place] 00 Posiflush) Phenazopyri No 100 mg = [...] Alberto verónica en 325 MG / 05-27 Route: PO, l Hydrocodone 01:45: Drug Form: Tyree Bitartrate 00 TAB, 5 MG Oral Dosing Tablet Weight [Sel[place] 89.545, 5/325] kg, ONCE, STAT, Start date: 05/26/17 20:45:00 CDT, Stop date: 05/26/17 20:45:00 CDT Morphine 2017-0 No 4 mg, Memoria [...] 24 2-08 QD Methodi hr capsule 00:00: 00 BYSTOLIC 10 Yes TK 1 T PO [place] mg tablet 1-30 QD Methodi 00:00: 00 diltiazem No Notes: DO Mem oria 09-24 NOT CRUSH. l 13:38: Lisinopril No Notes: Memor ia 09-23 (Same as: l 14:00: Prinivil, Zestril) Famotidine Yes 20 mg = 1 Me moria 20 MG Oral -18 tab, PO, l Tablet 10:44: BID, # [...] MG Oral # 90 tab, Tablet 0 [Selby Refill(s) 10/325] Methocarbam Yes 500 mg = 1 Memoria ol 500 MG 8-18 tab, PO, l Oral Tablet 10:44: Q8H, PRN He rmann [Robaxin] 00 Spasms, X 10 day, # 30 tab, 0 Refill(s) {21 Yes See Memoria (Methylpred 18 Instructio l nisolone 4 10:44: ns, PO, [...] Memoria 8-17 (Same as: l 22:00: Colace) [place] 00 (Do Not Crush) sennosides, No Notes: Juan Alberto verónica FDC - (Same as: l 22:00: Senokot) Clonidine No Notes: Memori a Hydrochlori 09-22 (Same As: l de 0.1 MG 22:00: Catapres) Her garcia Oral Tablet 00 Ondansetron No Notes: Juan Alberto verónica 8- (Same as: l 21:37: Zofran) MEDICATION WASTE Product Size: 4 mg Product Wasted: ___ mg Naloxone No Notes: Memoria 8- Same as l 21:37: Narcan Flumazenil No Notes: Memor ia 09-22 (Same as: l 21:37: Romazicon) Hydralazine No Notes: Juan Alberto verónica 8-17 (Same as: l 21:37: Apresoline ) Push over 5 minutes Hydromorpho No Notes: Juan Alberto verónica ne 09-22 Same as: l 21:37: Dilaudid Oxycodone No Notes: Memori a - (Same as: l 21:37: Roxicodone ) Saline No Notes: Memoria Flush 0.9% 09-22 (Same as: l 21:11: BD Posiflush) Robaxin No Notes: Memoria 8- (Same l 21:11: as:Robaxin ) Hydralazine No [...] verónica 8-17 (Same as: l 21:11: Zofran) [place] 00 MEDICATION WASTE Product Size: 4 mg Product Wasted: ___ mg Acetaminoph No Notes: Do M emoria en 325 MG / 09-22 not exceed l Hydrocodone 21:11: 4gm/day of Tyree Bitartrate 00 acetaminop 10 MG Oral hen. Tablet (Same as: [Selby [place] 10/325] 325/10) Dilaudid No Notes: Memoria 09-22 Same as: l 21:11: Dilaudid [place] Bisacodyl No Notes: Memori a 09-22 (Same As: l 21:11: Dulcolax, Tyree Bisco-Lax) phenol No Notes: Memoria 09-22 Chlorasept l 21:11: ic [place] (Same as: Chlorasept ic, Sore Throat [place]) WASTE: F/P - Black; E - Municipal Trash [employer] Melatonin 3 No Notes: Juan Alberto verónica MG Extended 09-22 (Same as: l Release 21:11: Melatonin) Herm torin Tablet 00 Benadryl No Notes: Memoria 09-22 (Same as: l 21:11: Benadryl) Tyree 00 ceFAZolin No Notes: Memori a 09-22 Same as: l 08:00: Ancef [place] 00 rosuvastati Yes TK 1 T PO [place] n (CRESTOR) 3-22 QD Methodi 10 MG 00:00: st tablet 00 Vital Signs Vital Name Observation Time Observation Value Comments Source Systolic blood 2020 14:00:00 140 mm[Hg] [facility] Diastolic blood 2020 14:00:00 66 mm[Hg] [facility] Heart rate 2020 14:00:00 58 /min [facility] Respiratory rate 2020 14:00:00 18 /min [facility] Oxygen saturation in 2020 13:00:00 98 /min [facility] - Arterial blood by Medical Ce nter Pulse oximetry Body temperature 2020 11:52:00 48 Alexia [facility] Body height 2020 08:39:00 180.3 cm [facility] Body weight 2020 08:39:00 85.276 kg [facility] BMI 2020 08:39:00 26.23 kg/m2 [facility] Heart Rate 2017-05-29 16:49:00 [facility] [place] Temperature Oral (F) 2017-05-29 16:49:00 97.8 F [facility] [place] Respitory Rate 2017-05-29 16:49:00 Memori al [place] Systolic (mm Hg) 2017-05-29 16:49:00 Juan Alberto rial [place] Diastolic (mm Hg) 2017-05-29 16:49:00 Mem orial [place] Respitory Rate 2017-05-29 13:20:00 Memori al [place] Heart Rate 2017-05-29 13:20:00 [facility] [place] Temperature Oral (F) 2017-05-29 13:20:00 97.4 F [facility] [place] Systolic (mm Hg) 2017-05-29 13:20:00 Juan Alberto rial [place] Diastolic (mm Hg) 2017-05-29 13:20:00 Mem orial [place] Respitory Rate 2017-05-29 08:34:00 Memori al [place] Temperature Oral (F) 2017-05-29 08:34:00 98 F [facility] [place] Heart Rate 2017-05-29 08:34:00 [facility] [place] Systolic (mm Hg) 2017-05-29 08:34:00 Juan Alberto rial [place] Diastolic (mm Hg) 2017-05-29 08:34:00 Mem orial [place] BMI Calculated 2017-05-27 08:46:00 Memori al [place] Height 2017-05-27 08:46:00 177.8 cm [facility] [place] Weight 2017-05-27 08:46:00 [facility] [place] Weight 2017-05-27 00:09:00 Memorial [place] Weight 2016-12-28 18:56:00 [facility] [place] BMI Calculated 2016-12-28 18:56:00 Memori al [place] Height 2016-12-28 18:56:00 177.8 cm [facility] [place] Heart Rate 2016-12-28 18:56:00 [facility] [place] Systolic (mm Hg) 2016-12-28 18:56:00 Juan Alberto rial [place] Diastolic (mm Hg) 2016-12-28 18:56:00 Mem orial [place] Temperature Oral (F) 2016-12-28 18:56:00 97.8 F [facility] [place] Heart Rate 2016-09-24 12:50:00 [facility] [place] Temperature Oral (F) 2016-09-24 12:50:00 97.5 F [facility] [place] Respitory Rate 2016-09-24 12:50:00 Memori al [place] Systolic (mm Hg) 2016-09-24 12:50:00 Juan Alberto rial [place] Diastolic (mm Hg) 2016-09-24 12:50:00 Mem orial [place] Heart Rate 2016-09-24 08:43:00 Memorial [place] Systolic (mm Hg) 2016-09-24 08:43:00 Juan Alberto rial [place] Diastolic (mm Hg) 2016-09-24 08:43:00 Mem orial [place] Respitory Rate 2016-09-24 08:43:00 Memori al [place] Temperature Oral (F) 2016-09-24 08:43:00 98.5 F [facility] [place] Temperature Oral (F) 2016-09-24 04:44:00 98.1 F [facility] [place] Systolic (mm Hg) 2016-09-24 04:44:00 Juan Alberto rial [place] Diastolic (mm Hg) 2016-09-24 04:44:00 Mem orial [place] Respitory Rate 2016-09-24 04:44:00 Memori al [place] Heart Rate 2016-09-24 04:44:00 [facility] [place] BMI Calculated 2016-09-22 15:39:00 Memori al [place] Weight 2016-09-22 15:39:00 [facility] [place] Height 2016-09-22 15:39:00 177.8 cm [facility] [place] Weight 2016-09-19 20:20:00 [facility] [place] BMI Calculated 2016-09-19 20:20:00 Memori al [place] Height 2016-09-19 20:20:00 177.8 cm [facility] [place] Procedures Procedure Date / Time Performing Clinician Source Performed POCT-ACT 2020 11:24:00 Colton Bolanos [facility] ECG 12-LEAD 2020 10:50:42 Vane Downs [facility] ANGIOGRAM,CORONARY 2020 10:04:00 Colton Bolanos [facility] CARDIAC CATH REPORT - 2020 00:00:00 Juan A Momin [facility] SARS-COV2/RT-PCR ([facility] & 2020-01-03 10:25:00 Colton Bolanos [facility] - REF LABS) [facility] POCT-GLUCOSE METER 2019-12-19 07:18:00 Oneil [facility] BASIC METABOLIC PANEL (7) 2019-12-19 04:49:00 Kalia Hagen [facility] MAGNESIUM 2019-12-19 04:49:00 Sanjana [facility] PHOSPHORUS 2019-12-19 04:49:00 Xiao [facility] CBC (HEMOGRAM ONLY) 2019-12-19 04:49:00 Irvin Mills [facility] POCT-GLUCOSE METER 2019-12-18 21:00:00 Oneil [facility] POCT-GLUCOSE METER 2019-12-18 16:56:00 [facility] 2019-12-18 11:16:00 Oneil [facility] ECG 12-LEAD 2019-12-18 08:29:14 Unknown, Hl7 Doctor [facility] POCT-GLUCOSE METER 2019-12-18 07:37:00 Oneil [facility] SARS-COV2/RT-PCR ([facility] & 2019-12-18 05:39:00 Oneil [facility] - REF LABS) [facility] BASIC METABOLIC PANEL (7) 2019-12-18 05:24:00 Kalia Hagen [facility] MAGNESIUM 2019-12-18 05:24:00 Xiao [facility] PHOSPHORUS 2019-12-18 05:24:00 Agekanikazeeshan [facility] CBC (HEMOGRAM ONLY) 2019-12-18 05:24:00 Juan Lawson [facility] POCT-GLUCOSE METER 2019-12-17 21:25:00 Coselli [facility] POCT-GLUCOSE METER 2019-12-17 16:03:00 Coselli [facility] POCT-GLUCOSE METER 2019-12-17 11:59:00 [facility] 2019-12-17 07:49:00 [facility] BASIC METABOLIC PANEL (7) 2019-12-17 05:11:00 Kalia Hagen [facility] MAGNESIUM 2019-12-17 05:11:00 Agejose a [facility] PHOSPHORUS 2019-12-17 05:11:00 Xiao [facility] CBC (HEMOGRAM ONLY) 2019-12-17 05:11:00 Juan Lawson [facility] POCT-GLUCOSE METER 2019-12-16 21:16:00 Coselli [facility] POCT-GLUCOSE METER 2019-12-16 16:18:00 Costre [facility] POCT-GLUCOSE METER 2019-12-16 12:02:00 [facility] PO[facility]SE METER 2019-12-16 07:39:00 [facility] BASIC METABOLIC PANEL (7) 2019-12-16 05:13:00 Kalia Hagen [facility] MAGNESIUM 2019-12-16 05:13:00 Xiao [facility] PHOSPHORUS 2019-12-16 05:13:00 Ageedi, Waleed [facility] APTT 2019-12-16 05:13:00 Oneil [facility] CBC (HEMOGRAM ONLY) 2019-12-16 05:13:00 [facility] PO[facility]-GLUCOSE METER 2019-12-15 21:20:00 Oneil [facility] APTT 2019-12-15 04:14:00 [facility]ABOLIC PANEL (7) 2019-12-15 04:10:00 Juan Lawson [facility] MAGNESIUM 2019-12-15 04:10:00 [facility] 2019-12-15 04:10:00 Renny [facility] CBC (HEMOGRAM ONLY) 2019-12-15 04:09:00 [facility] PREPARE RBC 2019-12-14 23:54:00 Oneil [facility] POCT-GLUCOSE METER 2019-12-14 22:34:00 [facility] APTT 2019-12-14 21:01:00 Efrain Barajas [facility] POCT-GLUCOSE METER 2019-12-14 18:05:00 Oneil [facility] APTT 2019-12-14 14:42:00 [facility] BASIC METABOLIC PANEL (7) 2019-12-14 13:58:00 Irvin Mills [facility] MAGNESIUM 2019-12-14 13:58:00 Irvin Mills [facility] POCT-GLUCOSE METER 2019-12-14 13:47:00 [facility] POCT-GLUCOSE METER 2019-12-14 09:00:00 [facility] AP[facility] 2019-12-14 07:52:00 Juan Lawson [facility] XR CHEST 1 VIEW 2019-12-14 07:50:[address] [facility] PORTABLE/BEDSIDE [facility] BLOOD GAS, ARTERIAL 2019-12-14 05:07:00 Xiao [facility] APTT 2019-12-14 05:07:00 [facility]anza [facility] CBC (HEMOGRAM ONLY) 2019-12-14 03:28:00 Juan Lawson [facility] BASIC METABOLIC PANEL (7) 2019-12-14 03:28:00 Juan Lawson [facility] MAGNESIUM 2019-12-14 03:28:00 Juan Lawson [facility] PHOSPHORUS 2019-12-14 03:28:00 Renny [facility] POCT-GLUCOSE METER 2019-12-13 23:24:00 Delano [facility] XR CHEST 1 VIEW 2019-12-13 23:20:00 [facility] PORTABLE/BEDSIDE [facility] BLOOD GAS, ARTERIAL 2019-12-13 23:12:00 [facility] CALCIUM, IONIZED 2019-12-13 23:12:00 [facility] CBC (HEMOGRAM ONLY) 2019-12-13 23:10:00 [facility] BASIC METABOLIC PANEL (7) 2019-12-13 23:10:00 SanjanaKalia [facility] APTT 2019-12-13 23:10:00 [facility] PROTHROMBIN TIME/INR 2019-12-13 23:10:00 [facility] PHOSPHORUS 2019-12-13 23:10:00 [facility] MAGNESIUM 2019-12-13 23:10:00 Kalia Hagen [facility] POCT-ACT 2019-12-13 21:38:00 [facility] POCT-ACT 2019-12-13 20:51:00 [facility] CALCIUM, IONIZED 2019-12-13 20:48:35 Javier [facility] BLOOD GAS, ARTERIAL 2019-12-13 20:48:35 Javier [facility] SODIUM NA-STAT LAB 2019-12-13 20:48:35 Javier [facility] POTASSIUM-STAT LAB 2019-12-13 20:48:35 Javier [facility] GLUCOSE-STAT LAB 2019-12-13 20:48:35 Javier [facility] HGB/HCT (H&H) - STAT LAB 2019-12-13 20:48:35 Javier [facility] POCT-ACT 2019-12-13 20:17:00 [facility] TRANSFUSE LEUKO-REDUCED 2019-12-13 19:48:17 Javier [facility] - RED BLOOD CELLS [facility] TRANSFUSE LEUKO-REDUCED 2019-12-13 19:46:32 Javier [facility] - RED BLOOD CELLS [facility] POCT-ACT 2019-12-13 19:37:00 [facility] CALCIUM, IONIZED 2019-12-13 19:31:54 Javier [facility] BLOOD GAS, ARTERIAL 2019-12-13 19:31:54 Javier [facility] SODIUM NA-STAT LAB 2019-12-13 19:31:54 Javier [facility] POTASSIUM-STAT LAB 2019-12-13 19:31:54 Javier [facility] GLUCOSE-STAT LAB 2019-12-13 19:31:54 Javier [facility] HGB/HCT (H&H) - STAT LAB 2019-12-13 19:31:54 Javier [facility] POCT-ACT 2019-12-13 18:54:00 Delano Sierra [facility] CALCIUM, IONIZED 2019-12-13 18:18:55 [facility] L[facility]ID, ARTERIAL 2019-12-13 18:18:[address] [facility] BLOOD GAS, ARTERIAL 2019-12-13 18:18:55 [facility] NA-[facility] 2019-12-13 18:18:55 [facility] 2019-12-13 18:18:55 [facility] GLU[facility]SE-[facility] LAB 2019-12-13 18:18:55 [facility] H[facility] (H&H) - STAT LAB 2019-12-13 18:18:55 Yoan [facility] ANGIOGRAM-LOWER EXTREMITY 2019-12-13 17:10:00 [facility] THROMBECTOMY-LOWER 2019-12-13 17:10:00 [facility] HC ARTERIAL DOPPLER LEGS 2019-12-13 12:51:00 Irvin Mills [facility] I [facility] WINTER [facility] HC ARTERIAL(RAFIQ W 2019-12-13 12:51:00 Delano Sierra [facility] es - DOPPLER)ONLY [facility] URINE CULTURE 2019-12-13 11:33:00 Irvin Mills [facility] URINALYSIS W/ REFLEX 2019-12-13 11:33:00 Irvin Mills [facility] - URINE CULTURE [facility] BASIC METABOLIC PANEL (7) 2019-12-13 11:31:00 Irvin Mills [facility] MAGNESIUM 2019-12-13 11:31:00 [place] [facility] PHOSPHORUS 2019-12-13 11:31:00 [facility] PROTHROMBIN TIME/INR 2019-12-13 11:31:00 [facility] APTT 2019-12-13 11:31:00 [facility] CBC W/PLT COUNT & AUTO 2019-12-13 11:31:00 [place] [facility] DIFFERENTIAL [facility] XR CHEST 1 VIEW 2019-12-13 11:20:00 [facility] PORTABLE/BEDSIDE [facility] POCT-ACT 2019-12-13 10:38:00 [facility] POCT-ACT 2019-12-13 09:24:00 Oneil [facility] POCT-ACT 2019-12-13 09:10:00 [facility] CALCIUM, IONIZED 2019-12-13 08:13:27 Isidoro Pierce [facility] BLOOD GAS, ARTERIAL 2019-12-13 08:13:27 Isidoro Pierce CH I [facility] SODIUM NA-STAT LAB 2019-12-13 08:13:27 Isidoro Pierce [facility] POTASSIUM-STAT LAB 2019-12-13 08:13:27 Isidoro Pierce [facility] GLUCOSE-STAT LAB 2019-12-13 08:13:27 Isidoro Pierce [facility] HGB/HCT (H&H) - STAT LAB 2019-12-13 08:13:[address] [facility] REPAIR,EVAR-ENDOVASCULAR 2019-12-13 07:03:00 Oneil [facility] AORTIC ANEURYSM [facility] BASIC METABOLIC PANEL (7) 2019-12-13 04:22:00 K[employer]Smart, Simah [facility] HEMOGLOBIN A1C 2019-12-13 04:22:00 [facility]UAL DIFF 2019-12-13 04:22:00 [facility] MAGNESIUM 2019-12-13 04:22:00 Renny [facility] PHOSPHORUS 2019-12-13 04:22:00 Renny [facility] CBC WITH PLATELET COUNT + 2019-12-13 04:22:00 Xiao [facility] MANUAL DIFF [facility] (CELLAVISION MANUAL DIFF) 2019-12-13 04:22:00 Kalia Hagen [facility] PREPARE RBC 2019-12-12 22:21:00 Oneil [facility] POCT-GLUCOSE METER 2019-12-12 21:26:00 Oneil [facility] PROTHROMBIN TIME/INR 2019-12-12 18:32:00 [facility] POCT-GLUCOSE METER 2019-12-12 16:40:00 Oneil [facility] BASIC METABOLIC PANEL (7) 2019-12-12 16:27:00 Kerry [facility] VASCULAR DIAGRAM -SCAN 2019-12-12 00:00:00 ProviderJuan A [facility] ANTIBODY IDENTIFICATION 2019-12-11 16:23:00 Kerry Casey [facility] HC CAROTID DOPPLER WINTER 2019-12-11 13:52:00 Kerry [facility] XR CHEST 2 VIEWS 2019-12-11 12:33:00 Kerry [facility] ECG 12-LEAD 2019-12-11 12:01:53 Unknown, Hl7 Doctor [facility] SARS-COV2/RT-PCR ([facility] & 2019-12-11 11:49:00 Oneil [facility] - REF LABS) [facility] BASIC METABOLIC PANEL (7) 2019-12-11 10:38:00 Lo, [facility] HC LAB HIV-1 AG W/HIV-1&2 2019-12-11 10:38:00 Lo, [facility] ALBUMIN 2019-12-11 10:38:00 Lo, [facility] ALKALINE PHOSPHATASE 2019-12-11 10:38:00 Lo, [facility] BILIRUBIN, ADULT TOTAL 2019-12-11 10:38:00 Lo, [facility] BILIRUBIN, DIRECT 2019-12-11 10:38:00 Lo, [facility] AST (SGOT) 2019-12-11 10:38:00 Lo, [facility] ALT (SGPT) 2019-12-11 10:38:00 Lo, [facility] PROTEIN, TOTAL 2019-12-11 10:38:00 Lo, [facility] PROTHROMBIN TIME/INR 2019-12-11 10:38:00 Lo, [facility] APTT 2019-12-11 10:38:00 Lo, [facility] RETICULOCYTE COUNT 2019-12-11 10:38:00 Lo, [facility] HEPATITIS B PANEL 2019-12-11 10:38:00 Lo, [facility] AMYLASE 2019-12-11 10:38:00 Lo, [facility] LIPASE 2019-12-11 10:38:00 Lo, [facility] HEPATITIS C ANTIBODY 2019-12-11 10:38:00 Lo, [facility] URINALYSIS W/ MICROSCOPIC 2019-12-11 10:38:00 Lo, [facility] LACTATE DEHYDROGENASE 2019-12-11 10:38:00 Lo, [facility] HEMOGLOBIN A1C 2019-12-11 10:38:00 JoRadha mckeon [facility] TYPE AND SCREEN, 2019-12-11 10:38:00 Lo, [facility] DIRECT AHG (GARTH)/DIRECT 2019-12-11 10:38:00 Lo, [facility] CBC W/PLT COUNT & AUTO 2019-12-11 10:38:00 Lo, [facility] (CELLAVISION MANUAL DIFF) 2019-12-11 10:38:00 Lo, [facility] SPIROMETRY 2019-11-21 10:30:00 Lo, [facility] CTA ABDOMEN & PELVIS 2019-11-05 08:01:00 Lo, [facility] CTA CHEST 2019-11-05 08:01:00 Lo, [facility] POCT-CREATININE 2019-11-05 07:25:00 Lo, [facility] Bladder irrigation, 2017-05-28 16:15:00 [facility] simple, lavage and/or instillation Bladder operation [facility] nn Drainage [facility] Lymph node operation [facility] Plan of Care Planned Activity Planned Date Details Comments Source Future Scheduled 2020-02-[address] [facility] - Test 00:00:00 (12+) [code = Medical Center DEPRESSION SCREENING (12+)] Future Scheduled 2019-10-08 INFLUENZA VACCINE (#1) [facility] 00:00:00 [code = INFLUENZA Medical Ce nter VACCINE (#1)] Future Scheduled 2019-09-07 INFLUENZA VACCINE [facility] Test 00:00:00 [code = INFLUENZA VACCINE] Future Scheduled 2010-12-[address] [facility] - Test 00:00:00 WELLNESS (YEAR 2 or Medical Center FIRST YEAR if no IPPE) [code = MEDICARE ANNUAL WELLNESS (YEAR 2 or FIRST YEAR if no IPPE)] Future Scheduled 2010 65+ PNEUMOCOCCAL [facility] Test 00:00:00 VACCINE (1 of 1 - PPSV23) [code = 65+ PNEUMOCOCCAL VACCINE (1 of 1 - PPSV23)] Future Scheduled 2010 PNEUMOCOCCAL 65+ YRS [facility] - Test 00:00:00 (1 of 1 - [facility] [id number] PCV13) [code = PNEUMOCOCCAL 65+ YRS (1 of 1 - [id number]_Bnhghzn PCV13)] Future Scheduled 1995 COLONOSCOPY SCREENING [facility] Test 00:00:00 [code = COLONOSCOPY SCREENING] Future Scheduled 1995 SHINGLES VACCINES (#1) [place] [facility] [facility] Test 00:00:00 [code = SHINGLES VACCINES (#1)] Future Scheduled 1961 COVID-19 VACCINE (1 of [facility] [facility] Test 00:00:00 2) [code = COVID-19 VACCINE (1 of 2)] Future Scheduled [address] [facility] - Test 00:00:00 malignant neoplasm of Medica l Center colon (procedure) [code = 244708884] Encounters Start End Encounter Admission Attending Care Care Encounter Source Date/Time Date/Time Type Type Clinicians Facility Department ID 2019-12-26 2019-12-26 Office [place] Bolanos [id number] 11:13:47 11:28:47 Visit [place] AMBULATOR [id number] Riki Penn [id number] 2018-10-16 2018-10-16 Orders Doctor BRYAN [id number] 00:00:00 00:00:00 Only UnassignedAMADOR [id number] [facility] [id number] 2018-09-10 2018-09-10 Orders Doctor BRYAN [id number] 00:00:00 00:00:00 Only UnassignedAMADOR 350.1.13.10 [facility] [id number] 2017-09-06 2017-09-07 Outpatient MHMISCHER MHMISCHER [id number] 13:27:00 23:59:59 13 2017-05-26 2017-05-29 Outpatient ANNALISA Carlson [facility] [id number] 19:05:00 16:01:00 Chata Chowdhury 2017-03-15 2017-03-16 Outpatient MHMISCHER MHMISCHER [id number] 16:21:00 23:59:59 12 2017-02-13 2017-02-13 Outpatient Tj Alicia MHMISCHER MHMISCHER [id number] 08:45:00 08:45:00 Hwan 2017-02-13 2017-02-13 Outpatient Tj Alicia MHMISCHER MHMISCHER [id number] 08:45:00 08:45:00 Hwan 2017-02-13 2017-02-13 Outpatient Tj Alicia MHMISCHER MHMISCHER [id number] 08:45:00 08:45:00 Hwan 2017-01-16 2017-01-17 Outpatient MHMISCHER MHMISCHER [id number] 11:51:00 23:59:59 11 2017-01-03 2017-01-04 Outpatient MHMISCHER MHMISCHER [id number] 11:44:00 23:59:59 10 2017-01-02 2017-01-03 Outpatient MHMISCHER MHMISCHER [id number] 15:19:00 23:59:59 09 2016-12-28 2016-12-28 Outpatient Tj Alicia MHMISCHER MHMISCHER [id number] 08:00:00 23:59:59 [facility] 2016-12-28 2016-12-28 Outpatient Azar [id number] 14:30:00 23:59:00 Rufina [id number] Ingrid [id number] 2016-12-26 2016-12-27 Outpatient MHMISCHER MHMISCHER [id number] 09:23:00 23:59:59 08 2016-12-23 2016-12-24 Outpatient MHMISCHER MHMISCHER [id number] 09:42:00 23:59:59 07 2016-09-22 2016-09-24 Outpatient Tj Alicia [facility] [id number] 16:11:00 11:45:00 Hwan 2016-08-11 2016-08-11 Outpatient Tj Alicia [facility] [id number] 16:55:00 23:59:00 Hwan 2016-07-20 2016-07-20 [id number] 10:41:00 23:59:00 Hwan Results Test Description Test Time Test Results Result Source Comments Comments CARDIAC CATH Ordered by an unspecified [facility] RE[facility] - SCAN 3 provider. [facility] - 12:09:17 Medical Center ECG 12 lead 2019-12-10 Interface, External Ris [facility] 0 In - 2020 1:29 PM [facility] - 13:28:55 CSTVentricular Rate 51 Me dical BPMAtrial Rate 166 BPMQRS Center Duration 92 msQ-T Interval 524 msQTC Calculation(Bazett) 482 msP [place] 41 degreesR [place] -6 degreesT [place] 56 degreesSinus bradycardiaCannot rule out Anterior infarct , age undeterminedProlonged QTAbnormal ECG11 DEC 2019Sinus bradycardia replaced AVNRTST no longer depressed precordial leadsQT has shortenedConfirmed by MD JO, RADHA ([id number]) on 2020 1:28:53 PM POC ACTIVATED CLOTTING TIME 2020 11:45:00 Test Item Value Reference Range Interpretation Comme nts Activated Clotting Time (test 252 sec : 74-137 seconds, Baseline: TESTED AT code = 441) [facility] [address], [address]: Energy Manager/Techni rigoberto ID = [id number] for GREGG, CLAU [facility][id number] 11:45:00 Test Item Value Reference Range Interpretation Comments ACTIVATED CLOTTING TIME 252 sec : 74 -137 seconds, (BEAKER) (test code = Baseli ne: TESTED AT 441) [facility] [address], [address]: Energy Manager/Techni rigoberto ID = [id number] for CO NDE, CLAU SARS-CoV2/RT-PCR ([facility] & Ref Labs)2020-01-03 17:54:00 Test Item Value Reference Range Interpretation Comments SARS-COV2/RT-PCR Negative Not Detected, (test code = Negative, See 51076-1) external report for linked test SARS-COV-2 [facility] PERFORMING LAB (test code = 80220-1) AMRITA (test code = Negative result for [...] of the Act. Fact Sheet for Healthcare Providers:https://www.AQUA PURE idel.Vindi/sites/default/f odalys/product/documents/F act_Sheet_HC_Providers_L pnx_SLVW-IvH-4.pdf Fact Sheet for Healthcare Patients:https://www.GenAudio del.Vindi/sites/default/fi les/product/documents/Fa ct_Sheet_Patients_Lyra_S ARS-CoV-2.pdf Performing Laboratory:[facility] [place] [address] [facility] & REF LAB[facility]2020-01-03 17:54:00 Test Item Value Reference Range Interpretation Comments SARS-COV2/RT-PCR (test Negative Not Detected, Negative, code = 1070362) See external report for linked test SARS-COV-2 PERFORMING LAB [facility] GENEVIEVE (test code = 9129398) Negative result for this test determines that [...] 564(g) of the Act.Fact Sheet for Healthcare Providers:https://www.AQUA PUREidel.com/sites/default/files/product/documents/Fact_Shee g_LF_Gyaqyxiil_Inoe_KPDW-IkF-4.pdfFact Sheet for Healthcare Patients:https://www.CTI Science.com/sites/default/files/product/ documents/Jtob_Gliup_Xkbvworr_Kdhb_CCWI-DiQ-6.pdfPerforming Laboratory:[facility], [place] [address]LVQXXSMR DIAGRAM -[id number] 10:07:56Ordered by an unspecified provider.[facility] ([facility] & REF LABS)2019-12-19 10:14:00 Test Item Value Reference Range Interpretation Comments SARS-COV2/RT-PCR (test Negative Not Detected, Negative, code = 8350321) See external report for linked test SARS-COV-2 PERFORMING LAB [facility] GENEVIEVE (test code = 6720805) Negative result for this test determines that [...] 564(g) of the Act.Fact Sheet for Healthcare Providers:https://www.[employer] Science.com/sites/default/files/product/documents/Fact_Shee n_ZZ_Gfvaoepgh_Jpwf_XLVI-PoV-3.pdfFact Sheet for Healthcare Patients:https://www.[employer] Science.Vindi/sites/default/files/product/ documents/Egfr_Izufh_Mdmjqggi_Tvxd_UHGD-ZkS-8.pdfPerforming Laboratory:[facility] [facility], [place] [address]ZLL-Ujsnnfk meter 2019-12-19 07:30:00 Test Item Value Reference Range Interpretation Comments POC-Glucose Meter (test 121 mg/dL 70-110 H : TE STED AT [facility] code = 1538) [address], [address]: Energy Manager/Techni rigoberto ID = [id number] for URSULA YESSI Lab Interpretation (test Abnormal code = 37125-4) [facility] [id number] 07:30:00 Test Item Value Reference Range Interpretation Comments POC-GLUCOSE METER 121 mg/dL 70-110 H : TESTED A T [facility] [address] (BEAKER) (test code = JOEYEVAN R [facility], 1538) [address]: Energy Manager/Techni rigoberto ID = [id number] for YESSI BROWN Basic Metabolic [id number] 07:06:00 Test Item Value Reference Range Interpretation Comments Sodium (test code = 140 meq/L 308-269 6798-2) Potassium (test code = 3.7 meq/L 3.5-5.1 2823-3) Chloride (test code = 109 meq/L 98-107 H 2075-0) CO2 (test code = 25 meq/L 22-29 2028-9) BUN (test code = 20 mg/dL 7- 3094-0) Creatinine (test code 1.29 mg/dL 0.57-1.25 H = 2160-0) Glucose (test code = 130 mg/dL 70-105 H 2345-7) Calcium (test code = 8.6 mg/dL 8.4-10.2 47651-3) EGFR (test code = 54 mL/min/1.73 [place] [address]-8) NOT ACCURATE CREATININE CLEARANCE IN PREDICTING GLOMERULAR FILTRATION RATE . ESTIMATED GFR I S NOT APPLICABLE FOR DIALYSIS PATIENTS. AMRITA (test code = AMRITA) Energy Manager DEVIKA Mckeon Lab Interpretation Abnormal (test code = 65948-5) [facility] Hospital[facility]esium2020-11-12 07:06:00 Test Item Value Reference Range Interpretation Comments Magnesium (test code = 2.1 mg/dL 1.6-2.6 95010-3) AMRITA (test code = AMRITA) Energy Manager ID - MARIELA M Lab Interpretation (test Normal code = 05561-0) [facility]2020-[facility]-12 07:06:00 Test Item Value Reference Range Interpretation Comments Phosphorus (test code = 2.9 mg/dL 2.3-4.7 2777-1) AMRITA (test code = AMRITA) Energy Manager ID - MARIELA M Lab Interpretation (test Normal code = 62842-7) [facility] Hospital[facility]IC METABOLIC [id number] 07:06:00 Test Item Value Reference Range Interpretation [...] S NOT APPLICABLE FOR DIALYSIS PATIEN TS. Energy Manager ID - MARIELA [id number] 07:06:00 Test Item Value Reference Range Interpretation Comments MAGNESIUM (BEAKER) (test code = 2.1 mg/dL 1.6-2.6 627) Energy Manager ID - MARIELA [id number] 07:06:00 Test Item Value Reference Range Interpretation Comments PHOSPHORUS (BEAKER) (test code = 2.9 mg/dL 2.3-4.7 604) Energy Manager DEVIKA [facility] (hemogram only)2019-12-19 05:34:00 Test Item Value Reference [...] K/CU MM L MPV (test code = 14082-4) 10.6 fL 9.4-12.4 nRBC (test code = 413) 0 0- 0 /100 WBC Lab Interpretation (test code = Abnormal 87545-5) [facility] (HEMOGRAM ONLY)2019-12-19 05:34:00 Test Item Value Reference [...] 0-0 (BEAKER) (test code = 413) POCT-GLUCOSE [id number] 21:12:00 Test Item Value Reference Range Interpretation Comments POC-GLUCOSE METER 144 mg/dL 70-110 H : TESTED A T [facility] 67[address] (BEAKER) (test code = [facility], 1538) [address]: Energy Manager/Techni rigoberto ID = [id number] for CESAR FIORE POCT-GLUCOSE [id number] 17:08:00 Test Item Value Reference Range Interpretation Comments POC-GLUCOSE METER 104 mg/dL 70-110 : TESTED A T [facility] [address] (BEAKER) (test code = [facility], 1538) [address]: Energy Manager/Techni rigoberto ID = [id number] for PETEY RIVAS POCT-GLUCOSE [id number] 11:28:00 Test Item Value Reference Range Interpretation Comments POC-GLUCOSE METER 172 mg/dL 70-110 H : TESTED A T [facility] [address] (BEAKER) (test code = [facility], 1538) [address]: Energy Manager/Techni rigoberto ID = [id number] for PETEY RIVAS POCT-GLUCOSE [id number] 07:50:00 Test Item Value Reference Range Interpretation Comments POC-GLUCOSE METER 123 mg/dL 70-110 H : TESTED A T [facility] [address] (BEAKER) (test code = [facility], 1538) [address]: Energy Manager/Techni rigoberto ID = [id number] for PETEY RIVAS BASIC METABOLIC [id number] 06:58:00 Test Item Value Reference Range Interpretation [...] S NOT APPLICABLE FOR DIALYSIS PATIEN TS. Energy Manager ID - [id number] 06:58:00 Test Item Value Reference Range Interpretation Comments MAGNESIUM (BEAKER) (test code = 2.1 mg/dL 1.6-2.6 627) Energy Manager ID - [id number] 06:58:00 Test Item Value Reference Range Interpretation Comments PHOSPHORUS (BEAKER) (test code = 2.5 mg/dL 2.3-4.7 604) Energy Manager ID - EDASICBC (HEMOGRAM ONLY)2019-12-18 06:28:00 Test [...] 0-0 (BEAKER) (test code = 413) POCT-GLUCOSE [id number] 21:37:00 Test Item Value Reference Range Interpretation Comments POC-GLUCOSE METER 145 mg/dL 70-110 H : TESTED A T [facility] [address] (BEAKER) (test code = [facility], 153) [address]: Energy Manager/Techni rigoberto ID = [id number] for CESAR FIORE POCT-GLUCOSE [id number] 16:17:00 Test Item Value Reference Range Interpretation Comments POC-GLUCOSE METER 154 mg/dL 70-110 H : TESTED A T [facility] [address] (BEAKER) (test code = [facility], 153) [address]: Energy Manager/Techni rigoberto ID = [id number] for [place] LLIAMS, TYNEKA POCT-GLUCOSE [id number] 12:11:00 Test Item Value Reference Range Interpretation Comments POC-GLUCOSE METER 150 mg/dL 70-110 H : TESTED A T [facility] [address] (BEAKER) (test code = [facility], 153) [address]: Energy Manager/Techni rigoberto ID = [id number] for [place] LLIAMS, TYNEKA POCT-GLUCOSE [id number] 08:07:00 Test Item Value Reference Range Interpretation Comments POC-GLUCOSE METER 132 mg/dL 70-110 H : TESTED A T [facility] [address] (BEAKER) (test code = [facility], 153) [address]: Energy Manager/Techni rigoberto ID = [id number] for [place] LLIAMS, TYNEKA BASIC METABOLIC [id number] 06:38:00 Test Item Value Reference Range Interpretation [...] S NOT APPLICABLE FOR DIALYSIS PATIEN TS. Energy Manager ID - [id number] 06:38:00 Test Item Value Reference Range Interpretation Comments MAGNESIUM (BEAKER) (test code = 2.0 mg/dL 1.6-2.6 627) Energy Manager ID - [id number] 06:38:00 Test Item Value Reference Range Interpretation Comments PHOSPHORUS (BEAKER) (test code = 1.9 mg/dL 2.3-4.7 L 604) Energy Manager ID - [id number] (HEMOGRAM ONLY)2019-12-17 06:07:00 Test [...] 0-0 (BEAKER) (test code = 413) POCT-GLUCOSE [id number] 21:27:00 Test Item Value Reference Range Interpretation Comments POC-GLUCOSE METER 172 mg/dL 70-110 H : TESTED A T [facility] [address] (BEAKER) (test code = [facility], 1538) [address]: Energy Manager/Techni rigoberto ID = [id number] for ANGELINE MCDANIELS SE POCT-GLUCOSE [id number] 16:32:00 Test Item Value Reference Range Interpretation Comments POC-GLUCOSE METER 171 mg/dL 70-110 H : TESTED A T [facility] [address] (BEAKER) (test code = [facility], 1538) [address]: Energy Manager/Techni rigoberto ID = [id number] for [place] LLIAMS, TYNEKA POCT-GLUCOSE [id number] 12:16:00 Test Item Value Reference Range Interpretation Comments POC-GLUCOSE METER 157 mg/dL 70-110 H : TESTED A T [facility] [address] (BEAKER) (test code = [facility], 1538) [address]: Energy Manager/Techni rigoberto ID = [id number] for [place] LLIAMS, TYNEKA [id number] 11:13:00 Test Item Value Reference Range Interpretation Comments ACTIVATED CLOTTING TIME 120 sec : 74 -137 seconds, (BEAKER) (test code = Singh ne: TESTED AT 441) [address], [facility] 30: Energy Manager/Techni rigoberto ID = [id number] for SUE, PABLO N [id number] 11:13:00 Test Item Value Reference Range Interpretation Comments ACTIVATED CLOTTING TIME 268 sec : 74 -137 seconds, (BEAKER) (test code = Baseli ne: TESTED AT 441) [address], [address]: Energy Manager/Techni rigoberto ID = [id number] for CA STRO, JUVE [id number] 11:13:00 Test Item Value Reference Range Interpretation Comments ACTIVATED CLOTTING TIME 230 sec : 74 -137 seconds, (BEAKER) (test code = Baseli ne: TESTED AT 441) [facility] [address] [place], [address]: Energy Manager/Techni rigoberto ID = [id number] for CA JUVE CHAMORRO Urine [id number] 09:17:00 Test Item Value Reference Range Interpretation Comments Result (test code = 6463-4) [facility] [id number] 07:57:00 Test Item Value Reference Range Interpretation Comments POC-GLUCOSE METER 126 mg/dL 70-110 H : TESTED A T [facility] 6720 (BEAKER) (test code = [address] [place], [address]) [address]: Energy Manager/Techni rigoberto ID = [id number] for ZOYA STOCKTON [id number] 06:40:00 Test Item Value Reference Range Interpretation Comments MAGNESIUM (BEAKER) (test code = 1.9 mg/dL 1.6-2.6 627) Energy Manager ID - MARIELA [id number] 06:40:00 Test Item Value Reference Range Interpretation Comments PHOSPHORUS (BEAKER) (test code = 1.6 mg/dL 2.3-4.7 L 604) Energy Manager ID - MARIELA MBASIC METABOLIC [id number] 06:40:00 Test Item Value Reference Range Interpretation [...] S NOT APPLICABLE FOR DIALYSIS PATIEN TS. Energy Manager ID - MARIELA MSpecimen slightly [id number] 06:06:00 Test Item Value Reference Range Interpretation Comments PTT (test code = 54862-0) 39.6 22.5- 36.0 seconds H Lab Interpretation (test code = Abnormal 63185-2) [facility] 06:06:00 Test Item Value Reference Range [...] 0-0 (BEAKER) (test code = 413) POCT-GLUCOSE [id number] 21:32:00 Test Item Value Reference Range Interpretation Comments POC-GLUCOSE METER 181 mg/dL 70-110 H : TESTED A T [facility] 6720 (BEAKER) (test code = [place], 1538) [address]: Energy Manager/Techni rigoberto ID = [id number] for ANGELINE MCDANIELS SE [id number] 05:46:00 Test Item Value Reference Range Interpretation Comments MAGNESIUM (BEAKER) (test code = 2.1 mg/dL 1.6-2.6 627) Energy Manager ID - MARIELA FSZTPAGMKVA1103-85-61 05:46:00 Test Item Value Reference Range Interpretation Comments PHOSPHORUS (BEAKER) (test code = 2.2 mg/dL 2.3-4.7 L 604) Energy Manager ID - MARIELA MBASIC METABOLIC [id number] 05:46:00 Test Item Value Reference Range Interpretation [...] S NOT APPLICABLE FOR DIALYSIS PATIEN TS. Energy Manager ID - MARIELA MSpecimen slightly [id number] 05:09:00 Test Item Value Reference Range Interpretation [...] 0-0 (BEAKER) (test code = 413) Prepare [id number] 23:54:00 Test Item Value Reference Range Interpretation Comments Unit ABO (test code = A Pos 9482233) UNIT NUMBER (test code = [id number] 934-0) Status (test code = 4276793) WORK IN PROGRESS Blood Bank Product (test RED BLOOD CELLS code = 2263) PRODUCT CODE (test code = O8859A48 933-2) CROSSMATCH (test code = INCOMPATIBLE 2264) [facility] [id number] 22:46:00 Test Item Value Reference Range Interpretation Comments POC-GLUCOSE METER 169 mg/dL 70-110 H : TESTED A T [facility] 6720 (BEAKER) (test code = [place], 1538) [address]: Energy Manager/Techni rigoberto ID = [id number] for Myesha Ellis [id number] 21:21:00 Test Item Value Reference Range Interpretation Comments PARTIAL THROMBOPLASTIN TIME 77.7 seconds 22.5-36.0 H (BEAKER) (test code = 760) POCT-GLUCOSE [id number] 18:17:00 Test Item Value Reference Range Interpretation Comments POC-GLUCOSE METER 150 mg/dL 70-110 H : TESTED A T [facility] 6720 (BEAKER) (test code = [place] Liane [facility], 1538) [address]: Energy Manager/Techni rigoberto ID = [id number] for Braden sorianos, Dianca [id number] 15:04:00 Test Item Value Reference Range Interpretation Comments PARTIAL THROMBOPLASTIN TIME 77.0 seconds 22.5-36.0 H (BEAKER) (test code = 760) [id number] 14:33:00 Test Item Value Reference Range Interpretation Comments MAGNESIUM (BEAKER) 2.3 mg/dL 1.6-2.6 Specimen slightly (test code = 627) hemolyzed Energy Manager ID - HARJIT CBASIC METABOLIC [id number] 14:33:00 Test Item Value Reference Range Interpretation [...] S NOT APPLICABLE FOR DIALYSIS PATIEN TS. Energy Manager ID - HARJIT CSpecimen moderately ictericPOCT-GLUCOSE [id number] 13:59:00 Test Item Value Reference Range Interpretation Comments POC-GLUCOSE METER 246 mg/dL 70-110 H : TESTED A T [facility] 6720 (BEAKER) (test code = [place]iane [facility], 1538) [address]: Energy Manager/Techni rigoberto ID = [id number] for CASEY SANFORD Arterial doppler legs ftiptqhis8054-47-69 09:47:08Ejection [facility]SWE[facility] ECHO HEARTLAB MKCKESSON CPACSRight Impression1. The common [...] + + + + + + !Prox [facility] ! !143 ! ! ! !0 ! ! ! + + + + + + + + + + !Mid [facility] ! !23.6 ! ! ! !0 ! ! ! + + + + + + + + + + !Dist [facility] ! !0 ! ! ! !0 ! [...] MARIN Date of Study 12/13/2019 DEBORAH III [id number] Age 74 Visit Number [id number] GenderMale Accession Number [id number] Date of 1945 Referring Oneil Delvalle [facility] Room Number [id number] Physician Vending Machine Mechanic Cm Anderson RVS Interpreting Cyndi Pastor RVT [...] + + + + + + !Prox [facility] ! !143 ! ! ! !0 ! ! ! + + + + + + + + + + !Mid [facility] ! !23.6 ! ! ! !0 !! ! + + +--------- + + + + + + + !Dist [facility] ! !0 ! ! ! !0 ! [...] + + + + + + !Prox Pergraciela ! !62.1 ! ! ! !0 ! ! ! + + + + + + + -----+ + + !Mid Peroneal ! !46.6 ! ! ! !0 ! ! ! + + + + + + + + + + !Dist Peroneal !!73.3 ! ! ! !0 ! ! ! + + +------ + + + + + + +[facility](Ankle/Brachial Index)2019-12-14 09:46:50Ejection FractionSLE ECHO HEARTLAB MKCKESSON [...] 12/13/2019 DEBORAH III Age 74 Visit Number [id number] Gender Male Accession Number [id number] Date of 1945 Referring delano sierra Room Number [id number] Physician Vending Machine Mechanic Cm Anderson RVS Interpreting Cyndi Pastor RVT [...] measured in cm/s ;Diameters are measured in [facility] [id number] 09:12:00 Test Item Value Reference Range Interpretation Comments POC-GLUCOSE METER 161 mg/dL 70-110 H : TESTED A T [facility] 6720 (MAREK) (test code = [place] [facility], 1538) [address]: Energy Manager/Techni rigoberto ID = [id number] for JAMES OSBORNE RAD, CHEST, 1 VIEW, NON [id number] 08:16:00Reason for exam:->post-extubationShould this be performed at the bedside?->Yes [facility] : 1945 [...] Almendarez Verified Date/Time: 12/14/2019 08:16:23 Reading Location: [address] Body Reading Room XR chest 1 view portable / [id number] 08:16:00 Interface, External Ris In - 12/14/2019 [...] Verified Date /Time: 12/14/2019 08:16:23 Reading Location: [facility] C013Y CT Body [facility] 08:12[facility]00 Test Item Value Reference Range Interpretation Comments PARTIAL THROMBOPLASTIN TIME 62.4 seconds 22.5-36.0 H (BEAKER) (test code = 760) [id number] 05:48:00 Test Item Value Reference Range Interpretation Comments PARTIAL THROMBOPLASTIN TIME 148.8 seconds 22.5-36.0 H (BEAKER) (test code = 760) Blood gas, lcpkifga8021-19-61 05:30:00 Test Item Value Reference Range Interpretation [...] 60 Lab Interpretation (test code = Abnormal 83234-1) [facility] HospitalBLOOD GAS, [id number] 05:30:00 Test Item Value Reference Range Interpretation [...] WBC 0-0 (BEAKER) (test code = 413) [id number] 04:00:00 Test Item Value Reference Range Interpretation Comments MAGNESIUM (BEAKER) (test code = 2.3 mg/dL 1.6-2.6 627) Energy Manager ID - VUMCYETRUIVQSVF2362-24-57 04:00:00 Test Item Value Reference Range Interpretation Comments PHOSPHORUS (BEAKER) (test code = 3.4 mg/dL 2.3-4.7 604) Energy Manager ID - EDASIBASIC METABOLIC [id number] 04:00:00 Test Item Value Reference Range Interpretation [...] S NOT APPLICABLE FOR DIALYSIS PATIEN TS. Energy Manager ID - EDASISpecimen slightly ictericRAD, CHEST, 1 VIEW, NON DEPT 2019-12-14 00:36:00Reason for exam:->Post-opShould this be performed at the bedside?->YesCHI [facility]Name: [facility] : 1945 [...] mediastinum: Stable contours.Additional findings: None. Signed: Vamsi Fostereport Verified Date/Time: 12/14/2019 00:36:00 [id number] 23:58:00 Test Item Value Reference Range Interpretation Comments PARTIAL THROMBOPLASTIN TIME 42.6 seconds 22.5-36.0 H (BEAKER) (test code = 760) BASIC METABOLIC [id number] 23:58:00 Test Item Value Reference Range Interpretation [...] S NOT APPLICABLE FOR DIALYSIS PATIEN TS. Energy Manager ID - PCMBJYPLGCG8076-61-35 23:58:00 Test Item Value Reference Range Interpretation Comments MAGNESIUM (BEAKER) (test code = 2.6 mg/dL 1.6-2.6 627) Energy Manager ID - NPQGSXMJAWWQ7743-72-78 23:58:00 Test Item Value Reference Range Interpretation Comments PHOSPHORUS (BEAKER) (test code = 4.1 mg/dL 2.3-4.7 604) Energy Manager ID - DBProthrombin time/[id number] 23:57:00 Test Item Value Reference Range Interpretation [...] valves. Lab Interpretation Abnormal (test code = 31557-4) [facility] HospitalPROTHROMBIN TIME/[id number] 23:57:00 Test Item Value Reference Range Interpretation [...] 0-0 (BEAKER) (test code = 413) POCT-GLUCOSE [id number] 23:36:00 Test Item Value Reference Range Interpretation Comments POC-GLUCOSE METER 158 mg/dL 70-110 H : TESTED A T [place] [address] (BEAKER) (test code = [place] [facility], 1538) [address]: Energy Manager/Techni rigoberto ID = [id number] for LLA, HERON BLOOD GAS, [id number] 23:32:00 Test Item Value Reference Range Interpretation [...] (BEAKER) (test code = 1819) 60.0 Calcium, [id number] 23:30:00 Test Item Value Reference Range Interpretation Comments Calcium, Ion (test code = 1994-3) 1.20 mmol/L 1.12-1.27 pH, Blood (test code = 79300-3) 7.31 [facility] HospitalCALCIUM, [id number] 23:30:00 Test Item Value Reference Range Interpretation Comments CALCIUM IONIZED (BEAKER) (test 1.20 mmol/L 1.12-1.27 code = 698) PH, BLOOD (BEAKER) (test code = 7.31 1810) [id number] 21:55:00 Test Item Value Reference Range Interpretation Comments ACTIVATED CLOTTING TIME 125 sec : 74 -137 seconds, (BEAKER) (test code = Baseli ne: TESTED AT 441) [address], [facility] 30: Energy Manager/Techni rigoberto ID = [id number] for MARY GIBBS CRUZ [id number] 21:55:00 Test Item Value Reference Range Interpretation Comments ACTIVATED CLOTTING TIME 235 sec : 74 -137 seconds, (BEAKER) (test code = Baseli ne: TESTED AT 441) [address], [facility] 30: Energy Manager/Techni rigoberto ID = [id number] for MARY GIBBS [id number] 21:55:00 Test Item Value Reference Range Interpretation Comments ACTIVATED CLOTTING TIME 241 sec : 74 -137 seconds, (BEAKER) (test code = Baseli ne: TESTED AT 441) [address], [facility] 30: Energy Manager/Techni rigoberto ID = [id number] for MARY GIBBS [id number] 21:55:00 Test Item Value Reference Range Interpretation Comments ACTIVATED CLOTTING TIME 241 sec : 74 -137 seconds, (BEAKER) (test code = Baseli ne: TESTED AT 441) [address], [facility] 30: Energy Manager/Techni rigoberto ID = [id number] for MARY GIBBS [id number] 21:55:00 Test Item Value Reference Range Interpretation Comments ACTIVATED CLOTTING TIME 246 sec : 74 -137 seconds, (BEAKER) (test code = Baseli ne: TESTED AT 441) [address], [facility] 30: Energy Manager/Techni rigoberto ID = [id number] for CA STRO, JUVE HGB/HCT (H&H)-Stat [id number] 20:53:00 Test Item Value Reference Range Interpretation Comments Hemoglobin (test code = 786-4) 10.1 13.0- 16.8 GM/DL L Hematocrit (test code = 4544-3) 30.0 % 40-50 L Lab Interpretation (test code = Abnormal 89021-1) [facility] HospitalGlucose-Stat [id number] 20:53:00 Test Item Value Reference Range Interpretation Comments Glucose (test code = 2345-7) 138 mg/dL 70-110 H Lab Interpretation (test code = Abnormal 55447-5) [facility] [id number] 20:53:00 Test Item Value Reference Range Interpretation Comments Sodium (test code = 2951-2) 138 meq/L 136-145 Lab Interpretation (test code = Normal 23213-6) [facility] HospitalPotassium-Stat [id number] 20:53:00 Test Item Value Reference Range Interpretation Comments Potassium (test code = 2823-3) 4.0 meq/L 3.6-5.5 Lab Interpretation (test code = Normal 93873-4) [facility] NA[facility]STAT [id number] 20:53:00 Test Item Value Reference Range Interpretation Comments SODIUM (BEAKER) (test code = 381) 138 meq/L 136-145 POTASSIUM-STAT [id number] 20:53:00 Test Item Value Reference Range Interpretation Comments POTASSIUM (BEAKER) (test code = 4.0 meq/L 3.6-5.5 379) CALCIUM, [id number] 20:53:00 Test Item Value Reference Range Interpretation Comments CALCIUM IONIZED (BEAKER) (test 1.16 mmol/L 1.12-1.27 code = 698) PH, BLOOD (BEAKER) (test code = 7.34 1810) BLOOD GAS, [id number] 20:53:00 Test Item Value Reference Range Interpretation [...] (BEAKER) (test code = 1819) 60.0 GLUCOSE-STAT [id number] 20:53:00 Test Item Value Reference Range Interpretation Comments GLUCOSE RANDOM (BEAKER) (test code 138 mg/dL 70-110 H = 652) HGB/HCT (H&H) - STAT [id number] 20:53:00 Test Item Value Reference Range Interpretation Comments HEMOGLOBIN (BEAKER) (test code = 10.1 GM/DL 13.0-16.8 L 410) HEMATOCRIT (BEAKER) (test code = 30.0 % 40.0-50.0 L 411) CALCIUM, [id number] 19:44:00 Test Item Value Reference Range Interpretation Comments CALCIUM IONIZED (BEAKER) (test 1.20 mmol/L 1.12-1.27 code = 698) PH, BLOOD (BEAKER) (test code = 7.36 1810) SODIUM NA-STAT [id number] 19:43:00 Test Item Value Reference Range Interpretation Comments SODIUM (BEAKER) (test code = 381) 138 meq/L 136-145 POTASSIUM-STAT [id number] 19:43:00 Test Item Value Reference Range Interpretation Comments POTASSIUM (BEAKER) (test code = 3.6 meq/L 3.6-5.5 379) BLOOD GAS, [id number] 19:43:00 Test Item Value Reference Range Interpretation [...] (BEAKER) (test code = 1819) 60.0 GLUCOSE-STAT [id number] 19:43:00 Test Item Value Reference Range Interpretation Comments GLUCOSE RANDOM (BEAKER) (test code 125 mg/dL 70-110 H = 652) HGB/HCT (H&H) - STAT [id number] 19:43:00 Test Item Value Reference Range Interpretation Comments HEMOGLOBIN (BEAKER) (test code = 6.4 GM/DL 13.0-16.8 L 410) HEMATOCRIT (BEAKER) (test code = 19.0 % 40.0-50.0 L 411) Lactic Acid, [id number] 18:50:00 Test Item Value Reference Range Interpretation Comments Lactate, Art (test code = 0.7 mmol/L 0.5-2.2 2924) AMRITA (test code = AMRITA) Energy Manager ID - BS Lab Interpretation (test Normal code = 78966-9) [facility] HospitalLACTIC ACID, [id number] 18:50:00 Test Item Value Reference Range Interpretation Comments LACTATE BLOOD ARTERIAL (2) 0.7 mmol/L 0.5-2.2 (BEAKER) (test code = 2874) Energy Manager ID - BSCALCIUM, [id number] 18:29:00 Test Item Value Reference Range Interpretation Comments CALCIUM IONIZED (BEAKER) (test 1.07 mmol/L 1.12-1.27 L code = 698) PH, BLOOD (BEAKER) (test code = 7.31 1810) BLOOD GAS, [id number] 18:29:00 Test Item Value Reference Range Interpretation [...] (BEAKER) (test code = 1819) 68.0 POTASSIUM-STAT [id number] 18:29:00 Test Item Value Reference Range Interpretation Comments POTASSIUM (BEAKER) (test code = 3.4 meq/L 3.6-5.5 L 379) GLUCOSE-STAT [id number] 18:29:00 Test Item Value Reference Range Interpretation Comments GLUCOSE RANDOM (BEAKER) (test code 138 mg/dL 70-110 H = 652) HGB/HCT (H&H) - STAT [id number] 18:29:00 Test Item Value Reference Range Interpretation Comments HEMOGLOBIN (BEAKER) (test code = 8.9 GM/DL 13.0-16.8 L 410) HEMATOCRIT (BEAKER) (test code = 26.0 % 40.0-50.0 L 411) SODIUM NA-STAT [id number] 18:28:00 Test Item Value Reference Range Interpretation Comments SODIUM (BEAKER) (test code = 381) 138 meq/L 136-145 Manual [id number] 14:30:00 Test Item Value Reference Range Interpretation [...] = 486) AMRITA (test code = AMRITA) Energy Manager ID - [id number] Lab Interpretation (test Abnormal code = 01888-1) [facility] with platelet count + manual [id number] 14:30:00 Test Item Value Reference Range Interpretation [...] 450 K/CU MM MPV (test code = 77328-0) 10.1 fL 9.4-12.4 nRBC (test code = 413) 0 0- 0 /100 WBC Lab Interpretation (test code = Abnormal 62802-5) [facility] WITH PLATELET COUNT + MANUAL [id number] 14:30:00 Test Item Value Reference Range Interpretation [...] MORPHOLOGY (BEAKER) (test code Normal = 486) Energy Manager ID - [id number] with platelet count + automated [id number] 13:53:00 Test Item Value Reference Range Interpretation [...] 450 K/CU MM MPV (test code = 46659-5) 10.4 fL 9.4-12.4 nRBC (test code = 413) 0 0- 0 /100 WBC Lab Interpretation (test code = Abnormal 44947-8) [facility] W/PLT COUNT & AUTO [id number] 13:53:00 Test Item Value Reference Range Interpretation [...] (BEAKER) (test code = 413) BASIC METABOLIC [id number] 12:20:00 Test Item Value Reference Range Interpretation [...] S NOT APPLICABLE FOR DIALYSIS PATIEN TS. Energy Manager ID - TI TLRBYEGWJH7376-04-41 12:20:00 Test Item Value Reference Range Interpretation Comments MAGNESIUM (BEAKER) (test code = 1.9 mg/dL 1.6-2.6 627) Energy Manager ID - TI [id number] 12:20:00 Test Item Value Reference Range Interpretation Comments PHOSPHORUS (BEAKER) (test code = 3.8 mg/dL 2.3-4.7 604) Energy Manager ID - TI [id number] 12:02:00 Test Item Value Reference Range Interpretation Comments PARTIAL THROMBOPLASTIN TIME 36.1 seconds 22.5-36.0 H (BEAKER) (test code = 760) PROTHROMBIN TIME/[id number] 12:01:00 Test Item Value Reference Range Interpretation [...] mechanical heart valves.Urinalysis w/Microscopic + Reflex to [id number] 11:56:00 Test Item Value Reference Range Interpretation Comments Color, UA (test code = Light Yellow 5778-6) Clarity, UA (test code = Cloudy 5767-9) Specific [place], UA (test 1.036 1.001-1.035 H code = 5811-5) pH, UA (test code = 6.0 5.0-8.0 5803-2) Protein, UA (test code = 30 mg/dL Negative A 68754-7) Glucose, UA (test code = Negative Negative 365) Ketones, UA (test code = Negative Negative 2514-8) Bilirubin, UA (test code = Negative Negative 05708-8) Blood, UA (test code = Small Negative A 19613-4) Nitrite, UA (test code = Negative Negative 5802-4) Leukocytes, UA (test code Large Negative A = 5799-2) Urobilinogen, UA (test 0.2 mg/dL 0.2-1 code = 59686-1) RBC, UA (test code = 18 /HPF 13632-0) WBC, UA (test code = 769 /HPF 5821-4) Bacteria, UA (test code = Rare 39335-9) Specimen Source (test code = 2795) AMRITA (test code = AMRITA) Energy Manager ID - [auto]Energy Manager ID - tech Lab Interpretation (test Abnormal code = 67685-7) [facility]/ REFLEX URINE [id number] 11:56:00 Test Item Value Reference Range Interpretation [...] Rare 517) SOURCE(BEAKER) (test code = 2795) Energy Manager ID - [auto]Energy Manager ID - techRAD, CHEST, 1 VIEW, NON [id number] 11:28:00Reason for exam:->Post-opShould this be performed at the bedside?->YesCHI [facility] : 1945 Sex: MFINAL REPORT CLINICAL HISTORY: Post-op TECHNIQUE: 1 view of the chest. COMPARISON: 12/11/2019 IMPRESSION: There are new mildly prominent lung markings in the right upper lung and bilateral lower lung zones. There are no significant appearing pleural effusions. The cardiomediastinal silhouette is magnified by technique. Signed: Vane Prettyort Verified Date/Time: 12/13/2019 11:28:43 Reading Location: [facility] Radiology Reading Room SODIUM NA- STAT [id number] 08:38:00 Test Item Value Reference Range Interpretation Comments SODIUM (BEAKER) (test code = 381) 138 meq/L 136-145 CALCIUM, [id number] 08:38:00 Test Item Value Reference Range Interpretation Comments CALCIUM IONIZED (BEAKER) (test 1.10 mmol/L 1.12-1.27 L code = 698) PH, BLOOD (BEAKER) (test code = 7.41 1810) BLOOD GAS, [id number] 08:38:00 Test Item Value Reference Range Interpretation [...] (BEAKER) (test code = 1819) 50.0 POTASSIUM-STAT [id number] 08:38:00 Test Item Value Reference Range Interpretation Comments POTASSIUM (BEAKER) (test code = 3.2 meq/L 3.6-5.5 L 379) GLUCOSE-STAT [id number] 08:38:00 Test Item Value Reference Range Interpretation Comments GLUCOSE RANDOM (BEAKER) (test code 148 mg/dL 70-110 H = 652) HGB/HCT (H&H) - STAT [id number] 08:38:00 Test Item Value Reference Range Interpretation Comments HEMOGLOBIN (BEAKER) (test code = 9.0 GM/DL 13.0-16.8 L 410) HEMATOCRIT (BEAKER) (test code = 26.0 % 40.0-50.0 L 411) Hemoglobin [id number] 08:26:00 Test Item Value Reference Range Interpretation Comments Hemoglobin A1C (test 5.2 % 4.3-6.1 code = 4548-4) AMRITA (test code = AMRITA) Please recheckPlease recheck Lab Interpretation Normal (test code = 61976-7) [facility] HospitalHEMOGLOBIN [id number] 08:26:00 Test Item Value Reference Range Interpretation Comments HEMOGLOBIN A1C (BEAKER) (test code = 5.2 % 4.3-6.1 368) Please recheckPlease recheckBASIC METABOLIC [id number] 05:01:00 Test Item Value Reference Range Interpretation [...] S NOT APPLICABLE FOR DIALYSIS PATIEN TS. Energy Manager ID - IQNPZNJQACAERD1652-60-18 05:01:00 Test Item Value Reference Range Interpretation Comments MAGNESIUM (BEAKER) (test code = 2.0 mg/dL 1.6-2.6 627) Energy Manager ID - RREENFJGRUOEAVA0860-89-29 05:01:00 Test Item Value Reference Range Interpretation Comments PHOSPHORUS (BEAKER) (test code = 3.8 mg/dL 2.3-4.7 604) Energy Manager ID - EDASIPOCT-GLUCOSE [id number] 21:38:00 Test Item Value Reference Range Interpretation Comments POC-GLUCOSE METER 216 mg/dL 70-110 H : TESTED A T [facility] 6720 (BEAKER) (test code = [place], 1538) [address]: Energy Manager/Techni rigoberto ID = [id number] for Re yes, Sairy PROTHROMBIN TIME/[id number] 19:09:00 Test Item Value Reference Range Interpretation [...] for patients wiht mechanical heart valves.BASIC METABOLIC [id number] 17:03:00 Test Item Value Reference Range Interpretation [...] S NOT APPLICABLE FOR DIALYSIS PATIEN TS. Energy Manager ID - BSPOCT-GLUCOSE WAYIS1659-44-43 16:54:00 Test Item Value Reference Range Interpretation Comments POC-GLUCOSE METER 125 mg/dL 70-110 H : TESTED A T [facility] 6720 (BEAKER) (test code = JOEYEVAN Rob [facility], 1538) [address]: Energy Manager/Techni rigoberto ID = [id number] for PHYLLIS FIORE Carotid doppler tucepmlye2473-03-67 07:51:37Ejection FractionSLE ECHO HEARTLAB MKCKESSON CPACSRight Impression1. 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 Forbes T Interpreting Caryl Gao, Physician [...] + + - Additional Measurements:ICAPSV/CCAPSV 0.85.ICAEDV/CCAEDV 0.94.[facility] FarmARS-COV2/RT-PCR ([facility])2019-12-11 21:52:00 Test Item Value Reference Range Interpretation Comments SARS-COV2/RT-PCR (test Negative Not Detected, Negative, code = 5993968) See external report for linked test SARS-COV-2 PERFORMING LAB [facility] GENEVIEVE (test code = 9196935) Negative result for this test determines that [...] the Bazzi SARS-CoV-2 assay.Fact Sheet for Healthcare Providers:https://www.[employer].bazzi/nicky/ TB_ALVB-HhS-5_XOA_Jinj_Olycz_86-941165.pdfFact Sheet for Healthcare Patients:https://www.[employer].ab hoang/nicky/MX_FQHW-IwX-8_Babhcwo_Vola_Auyzr_OV_33-313586Q8.pdfPerforming Laboratory:[facility] [place] [address] Hepatitis B [id number] 19:59:00 Test Item Value Reference Range Interpretation Comments Hep B Core Total Ab (test Nonreactive Nonreactive code = 46587-3) Hep B S Ab (test code = <8.0 <8.0 mIU/mL 58571-4) HBsAg Screen (test code = Nonreactive Nonreactive 5195-3) AMRITA (test code = AMRITA) Energy Manager ID - ADMIN Lab Interpretation (test Normal code = 81647-0) [facility] HospitalHEPATITIS B [id number] 19:59:00 Test Item Value Reference Range Interpretation Comments HEPATITIS B CORE TOTAL ANTIBODY Nonreactive Nonreactive (BEAKER) (test code = 497) HEPATITIS B SURFACE ANTIBODY < mIU/mL <8.0 (BEAKER) (test code = 647) HEPATITIS B SURFACE ANTIGEN (2) Nonreactive Nonreactive (BEAKER) (test code = 2585) Energy Manager ID - ADMINHEMOGLOBIN [id number] 19:58:00 Test Item Value Reference Range Interpretation Comments HEMOGLOBIN A1C (BEAKER) (test code = 5.5 % 4.3-6.1 368) Received comment: User comments: Slide comments: Received comment: User comments: Slide comments:Hepatitis C [id number] 19:52:00 Test Item Value Reference Range Interpretation Comments Hepatitis C Ab (test code Nonreactive Nonreactive = 75515-2) AMRITA (test code = AMRITA) Energy Manager ID - ADMIN Lab Interpretation (test Normal code = 03362-2) [facility]2 [id number] 19:52:00 Test Item Value Reference Range Interpretation Comments HIV-1 Antigen with HIV Nonreactive Nonreactive 1&2 Antibody (test code = 46358-9) AMRITA (test code = AMRITA) Energy Manager ID - ADMIN Lab Interpretation (test Normal code = 48933-1) [facility] HospitalHEPATITIS C KMOCNNXM1310-08-49 19:52:00 Test Item Value Reference Range Interpretation Comments HEPATITIS C ANTIBODY (BEAKER) Nonreactive Nonreactive (test code = 367) Energy Manager ID - ADMINHIV-1 ANTIGEN WITH HIV-1/2 SINPUUSH3218-96-13 19:52:00 Test Item Value Reference Range Interpretation Comments HIV-1 ANTIGEN WITH HIV 1\\T\\2 Nonreactive Nonreactive ANTIBODY (2) (BEAKER) (test code = 2586) Energy Manager ID - ADMINAntibody zgvghjrzyyqfgk8753-87-43 16:23:00 Test Item Value Reference Range Interpretation Comments ANTIBODY ID UNID IgGWARM (BEAKER) (test AUTO AB code = 2253) Antibody Consult SIGNED OUT Warm vitaliy lópez (test code = detected, ok to 2479) transfuse incom patible bloodElectronic Signature: Radhika Woo M.D. [facility](CELLAVISION MANUAL DIFF)2019-12-11 15:57:00 Test Item Value [...] CONCENTRATION Adequate (CELLAVISION)(BEAKER) (test code = 3438) Energy Manager ID - villa Robles comments: Slide comments:CBC W/PLT COUNT & AUTO [id number] 15:28:00 Test Item Value Reference Range Interpretation [...] (test code = 413) Type and screen, ytrejtiyp2120-87-25 14:53:00 Test Item Value Reference Range Interpretation Comments ABO/RH AUTOMATED (BEAKER) (test A POSITIVE code = 2260) Ab Scrn (test code = 890-4) POSITIVE echo 1 [facility] Hospital[facility] ([facility])/Direct Sxbmyu1989-56-31 14:08:00 Test Item Value Reference Range Interpretation Comments Direct AHG-IGG (test code = 1006-6) POSITIVE 4+ Direct AHG-C3B, C3D (test code = POSITIVE Micro+ 1003-3) [facility] HospitalRAD, CHEST, 2 [id number] 13:32:00Reason for Exam:->[facility] : 1945 Sex: MFINAL REPORT PA and Lateral views of the chest dated 12/11/2019 Clinical information: pre-op Comment: Heart is normal in size. Thoracic aorta is ectatic. Pulmonary vasculature is unremarkable. Lungs are clear. No pulmonary infiltrate or pleural effusion is present.Impression: No active cardiopulmonary disease. Signed: Vamsi Johnsort Verified Date/Time: 05/2019 13:32:39 Reading Location: [facility] Radiology Reading Room XR chest 2 [id number] 13:32:00Interface, External Ris In - 12/11/2019 1:34 PM CSTFINAL REPORT PA and Lateral views of the chest dated 12/11/2019 Clinical information: pre-op Comment: Heart is normal in size. Thoracic aorta is ectatic. Pulmonary vasculature is unremarkable. Lungs are clear. No pulmonary infiltrate or pleural effusion is present. Impression: No active cardiopulmonary disease. Signed: Vamsi Johns Verified Date/Time: 12/11/2019 13:32:39 Reading Location: [facility] Radiology Reading [facility]OLIC [id number] 12:30:00 Test Item Value Reference Range Interpretation [...] S NOT APPLICABLE FOR DIALYSIS PATIEN TS. Energy Manager ID - JJVvhlvej0306-04-74 11:26:00 Test Item Value Reference Range Interpretation Comments Albumin (test code = 4.1 g/dL 3.5-5 41104-3) AMRITA (test code = AMRITA) Energy Manager ID - ADMIN Lab Interpretation (test Normal code = 44804-5) [facility] HospitalAmylase2020-11-04 11:26:00 Test Item Value Reference Range Interpretation Comments Amylase (test code = 30 U/L 25-125 1798-8) AMRITA (test code = AMRITA) Energy Manager ID - ADMIN Lab Interpretation (test Normal code = 73773-2) [facility] HospitalBilirubin, adult rqmad6543-96-77 11:26:00 Test Item Value Reference Range Interpretation Comments Total Bilirubin (test code 0.9 mg/dL 0.2-1.2 = 1975-2) AMRITA (test code = AMRITA) Energy Manager ID - ADMIN Lab Interpretation (test Normal code = 22944-7) [facility] HospitalBilirubin, bvxocu7162-34-22 11:26:00 Test Item Value Reference Range Interpretation Comments Bilirubin, Direct (test 0.4 mg/dL 0.1-0.5 code = 1968-7) AMRITA (test code = AMRITA) Energy Manager ID - ADMIN Lab Interpretation (test Normal code = 26643-5) [facility] HospitalLactate dehydrogenase (LDH)2019-12-11 11:26:00 Test Item Value Reference Range Interpretation Comments LDH (test code = 2532-0) 177 U/L 125-220 AMRITA (test code = AMRITA) Energy Manager ID - ADMIN Lab Interpretation (test Normal code = 37681-6) [facility] HospitalLipase2020-11-04 11:26:00 Test Item Value Reference Range Interpretation Comments Lipase (test code = 22 U/L 8-78 3040-3) AMRITA (test code = AMRITA) Energy Manager ID - ADMIN Lab Interpretation (test Normal code = 26319-9) [facility] HospitalAlkaline garurzwnait9980-93-54 11:26:00 Test Item Value Reference Range Interpretation Comments Alkaline Phosphatase (test 93 U/L 40-150 code = 6768-6) AMRITA (test code = AMRITA) Energy Manager ID - ADMIN Lab Interpretation (test Normal code = 89356-4) [facility] HospitalProtein, yxwmz5740-19-53 11:26:00 Test Item Value Reference Range Interpretation Comments Protein, Total (test code 6.1 6.0- 8.3 gm/dL = 2885-2) AMRITA (test code = AMRITA) Energy Manager ID - ADMIN Lab Interpretation (test Normal code = 92411-6) [facility] HospitalAST (SGOT)2019-12-11 11:26:00 Test Item Value Reference Range Interpretation Comments AST (test code = 1920-8) 12 U/L 5-34 AMRITA (test code = AMRITA) Energy Manager ID - ADMIN Lab Interpretation (test Normal code = 47159-4) [facility] HospitalALT (SGPT)2019-12-11 11:26:00 Test Item Value Reference Range Interpretation Comments ALT (test code = 1742-6) 12 U/L 6-55 AMRITA (test code = AMRITA) Energy Manager ID - ADMIN Lab Interpretation (test Normal code = 89501-5) [facility] HospitalALKALINE ECVFSUXDKTL7083-22-83 11:26:00 Test Item Value Reference Range Interpretation Comments ALKALINE PHOSPHATASE (BEAKER) (test 93 U/L 40-150 code = 346) Energy Manager ID - ADMINPROTEIN, [id number] 11:26:00 Test Item Value Reference Range Interpretation Comments TOTAL PROTEIN (BEAKER) (test code = 6.1 gm/dL 6.0-8.3 770) Energy Manager ID - ADMINAST (SGOT)2019-12-11 11:26:00 Test Item Value Reference Range Interpretation Comments AST (SGOT) (BEAKER) (test code = 353) 12 U/L 5-34 Energy Manager ID - ADMINALT (SGPT)2019-12-11 11:26:00 Test Item Value Reference Range Interpretation Comments ALT (SGPT) (BEAKER) (test code = 347) 12 U/L 6-55 Energy Manager ID - PFLGVGLFJEGO2989-85-31 11:26:00 Test Item Value Reference Range Interpretation Comments ALBUMIN (BEAKER) (test code = 1145) 4.1 g/dL 3.5-5.0 Energy Manager ID - KWYREIQLAQRR4157-88-25 11:26:00 Test Item Value Reference Range Interpretation Comments AMYLASE (BEAKER) (test code = 349) 30 U/L 25-125 Energy Manager ID - ADMINBILIRUBIN, ADULT [id number] 11:26:00 Test Item Value Reference Range Interpretation Comments BILIRUBIN TOTAL (BEAKER) (test code 0.9 mg/dL 0.2-1.2 = 377) Energy Manager ID - ADMINBILIRUBIN, AFOTWW2289-02-45 11:26:00 Test Item Value Reference Range Interpretation Comments BILIRUBIN DIRECT (BEAKER) (test 0.4 mg/dL 0.1-0.5 code = 706) Energy Manager ID - ADMINLACTATE DEHYDROGENASE (LDH)2019-12-11 11:26:00 Test Item Value Reference Range Interpretation Comments LACTATE DEHYDROGENASE (BEAKER) (test 177 U/L 125-220 code = 635) Energy Manager ID - IUTPNEZDCDA8563-83-60 11:26:00 Test Item Value Reference Range Interpretation Comments LIPASE (BEAKER) (test code = 749) 22 U/L 8-78 Energy Manager ID - ADMINUrinalysis w/Dsapnjurzcv6167-51-29 11:18:00 Test Item Value Reference Range Interpretation Comments Color, UA (test code = Light Yellow 5778-6) Clarity, UA (test code = Hazy 5767-9) Specific [place], UA (test 1.011 1.001-1.035 code = 5811-5) pH, UA (test code = 6.5 5.0-8.0 5803-2) Protein, UA (test code = 10 mg/dL Negative A 33902-7) Glucose, UA (test code = 1000 mg/dL Negative A 365) Ketones, UA (test code = Negative Negative 2514-8) Bilirubin, UA (test code = Negative Negative 58418-4) Blood, UA (test code = Small Negative A 51247-3) Nitrite, UA (test code = Negative Negative 5802-4) Leukocytes, UA (test code Large Negative A = 5799-2) Urobilinogen, UA (test 0.2 mg/dL 0.2-1 code = 65670-0) RBC, UA (test code = 4 /HPF 61563-4) WBC, UA (test code = 152 /HPF 5821-4) Mucus (test code = 8247-9) Rare Squam Epithel, UA (test <1 /HPF code = 78117-1) Specimen Source (test code = 2795) AMRITA (test code = AMRITA) Energy Manager ID - [auto]Energy Manager ID - tech Lab Interpretation (test Abnormal code = 97432-6) [facility] HospitalURINALYSIS W/ NMZZZOTIBOC2447-04-50 11:18:00 Test Item Value Reference Range Interpretation [...] = 516) SOURCE(BEAKER) (test code = 2795) Energy Manager ID - [auto]Energy Manager ID - nhkqPPVU9186-30-78 11:14:00 Test Item Value Reference Range Interpretation Comments PARTIAL THROMBOPLASTIN TIME 32.6 seconds 22.5-36.0 (BEAKER) (test code = 760) PROTHROMBIN TIME/[id number] 11:13:00 Test Item Value Reference Range Interpretation [...] is2.5-3.5 for patients wiht mechanical heart valves.Reticulocyte usrgi2552-47-29 11:12:00 Test Item Value Reference Range Interpretation Comments % Retic (test code = 3.3 % 0.5-1.8 H 13732-3) AMRITA (test code = AMRITA) Energy Manager ID - [id number] Lab Interpretation (test Abnormal code = 46186-9) [facility] HospitalRETICULOCYTE WYVUN9343-14-15 11:12:00 Test Item Value Reference Range Interpretation Comments RETICULOCYTE COUNT PCT (BEAKER) (test 3.3 % 0.5-1.8 H code = 575) Energy Manager ID - 6000Pulmonary Funct Lab Jzcosyflhn3932-29-75 10:30:00Bianca Ly, YARN TEXTURING MACHINE OPERATOR, NATIONAL SERVICE OFFICER 11/21/2019 12:31 [facility] PFT CHARTING REPORT Infection Control/Hand Hygiene procedures followed throughout the encounter with patient: YesPatient Identification Method: Patient name verified on armband, and Medical record on armband, Is the order complete?: Yes Account ID#: [id number] Name: Duke Marin IIIBirthdate: 1945 Age: 74 [...] patient released from the lab without adverseoutcome.[facility] HospitalCT, CTA, [id number] 14:08:00Part of CTA Chest, ABD and Pelvis [...] nonobstructing atherosclerotic changes throughout the abdominal aorta. Marine Architect dimensions of the thoracic aorta are as [...] appear normal. The spleen is mildly enlarged, xympykyxx66 cm in length in the craniocaudal dimension. [...] MDReport Verified Date/Time: 11/05/2019 14:08:15 Reading Location: [facility] [employer] Reading Room [address] [place] [address] CT, CTA, [id number] 14:08:00Unlisted Reason for Exam - Click Yes [...] nonobstructing atherosclerotic changes throughout the abdominal aorta. Marine Architect dimensions of the thoracic aorta are as [...] appear normal. The spleen is mildly enlarged, ifyvjarbg92 cm in length in the craniocaudal dimension. [...] MDReport Verified Date/Time: 11/05/2019 14:08:15 Reading Location: [facility] Reading Room [address] [place] [address] CT/CTA abdomen & pelvis - For [id number] 14:08:00Interface, External Ris In - 11/05/2019 2:10 [...] nonobstructing atherosclerotic changes throughout the abdominal aorta. Marine Architect dimensions of the thoracic aortaare as follows: [...] with this patient bladder cancer. Signed: Kim Hamiltonort Verified Date/Time: 11/05/2019 14:08:15 Reading Location: [facility] Reading Room 3 - B01.625 [facility] campusCTA omihh7188-66-12 14:08:00Interface, External Ris In - 11/05/2019 2:10 [...] nonobstructing atherosclerotic changes throughout the abdominal aorta. Marine Architect dimensions of the thoracic aortaare as follows: [...] Hamilton Verified Date/Time: 11/05/2019 14:08:15 Reading Location: [facility] Reading Room [address] [place] [address] [facility]-Frfemqvppk5404-41-83 07:38:00 Test Item Value Reference Range Interpretation Comments POC-Creatinine (test code 1.7 mg/dL 0.6-1.3 H : TESTED AT [facility] = 1859) [address] [facility] [address]: Energy Manager/Techni rigoberto ID = [id number] for IRVIN LOMBARDI POC-EGFR (test code = 40 mL/min/1.73M2 1860) Lab Interpretation (test Abnormal code = 63891-9) [facility]-UMMLCTTLEC3800-35-66 07:38:00 Test Item Value Reference Range Interpretation Comments POC-CREATININE 1.7 mg/dL 0.6-1.3 H : TESTED AT [facility] (test [address] [facility] code = 185) [facility] [address]: Energy Manager/Techni rigoberto ID = [id number] for IRVIN LOMBARDI POC-EGFR 40 mL/min/1.73M2 ([facility]) (test code = 1860) TISSUE [id number] 14:55:00Surgical Pathology Report Case: [id number] Authorizing Provider: Brown Garcia MD Collected: 02/16/2018 1004 Ordering Location: [facility] OMT PERIOPERATIVE Received: 02/16/2018 1117 SERVICES Pathologist: Nicolas [...] CHRONIC INFLAMMATION Signing Pathologist Direct Phone Line: [phone] signed by Nicolas Diaz MD on 02/20/2018 at 2:55 [id number] X 2Malignant neoplasm of urinary bladder A. [...] = 13) 50-59,000 col/mL skin floraURINALYSIS W/ [id number] 18:16:00 Test Item Value Reference Range Interpretation [...] = Occasional 1585) SOURCE(BEAKER) (test code = 5728) CBC W/PLT COUNT & AUTO [id number] 17:52:00 Test Item Value Reference Range Interpretation [...] Received comment: User comments: Slide comments:BASIC METABOLIC [id number] 17:40:00 Test Item Value Reference Range Interpretation [...] FOR DIALYSIS PATIEN TS. RAD, CHEST, 2 [id number] 16:22:00Reason for exam:->pre-op testingShould this be performed at the bedside?->NoFINAL REPORT Chest, PA and lateral. History: Preoperative. Comparison: 08/24/2017. Discussion: Cardiomegaly and thoracic aortic ectasia. The lungs are clear without evidence of consolidation or effusion. There are no acute osseous abnormalities. The soft tissues are unremarkable. IMPRESSION: No acute cardiopulmonary abnormality. Signed: Humberto Weaver MDReport Verified Date/ Time: 02/12/2018 16:22:15 Reading Location: [address] Radiology Reading Room TISSUE [id number] 17:10:00Surgical Pathology Report Case: [id number] Authorizing Provider: Brown Garcia MD Collected: 08/25/2017 1030 Ordering Location: [facility] PERIOPERATIVE Received: 08/25/2017 1434 SERVICES [...] NOT PRESENT Signing Pathologist Direct Phone Line: [phone] signed by Nicolas Diaz MD on 08/28/2017 at 5:10 PMThe focus of invasion on specimen B. Is into the lamina propria of one papillary stalk and consists of on 3-4 tiny cell clusters. A. 08391T. 41787K. 34458K. 51484Kowhcsisx neoplasm of urinary bladder A. Bladder tumor [...] to 0.4 cm. Submitted D1. CG/pl PerformedURINE EJZQRFQ4908-69-21 16:00:00 Test Item Value Reference Range Interpretation [...] comments: Slide comments:CBC W/PLT COUNT & AUTO LVTPDRPJEVOC0769-75-18 20:06:00 Test Item Value Reference Range Interpretation [...] (test code = 413) RAD, CHEST, 2 [id number] 16:22:00Reason for Exam:->bladder cancer, pre- op testingFINAL [...] MDReport Verified Date/Time: 08/23/2017 16:22:14 Reading Location: [address] Reading Room [facility] METABOLIC [id number] 16:10:00 Test Item Value Reference Range Interpretation [...] APPLICABLE FOR DIALYSIS PATIEN TS. URINALYSIS W/ [id number] 16:01:00 Test Item Value Reference Range Interpretation [...] Rare 1574) SOURCE(BEAKER) (test code = 2795) [id number] 15:55:00 Test Item Value Reference Range Interpretation Comments PARTIAL THROMBOPLASTIN TIME 31.6 seconds 22.5-36.0 (BEAKER) (test code = 760) PROTHROMBIN TIME/[id number] 15:54:00 Test Item Value Reference Range Interpretation Comments PROTIME (BEAKER) (test code = 14.8 seconds 11.7-14.7 H 759) INR (BEAKER) (test code = 370) 1.2 <=5.9 RECOMMENDED COUMADIN/WARFARIN INR THERAPY RANGESSTANDARD DOSE: 2.0 - 3.0 Includes: PROPHYLAXIS forvenous thrombosis, systemic embolization; TREATMENT for venous thrombosis and/or pulmonary embolus.HIGH RISK: Target INR is 2.5-3.5 for patients with mechanical heart valves.BFNIIUNIMQ2768-40-88 10:07:0032.2[facility] RvodmhkAUPXYIVGLH6627-67-49 10:07:008.6[facility] OnpbhyaNWJYTEBLLI5902-87-40 10:07:40389Ytatdowx SgoecyoRMSZNAYCIJ2506-47-87 10:07:0016.8[facility] ICXUGKKLAG7444-92-21 10:07:0011.3[facility] ZmvzqwdCBVMICDHUG9455-24-24 10:07:00 4.00[facility] HsipjecQVPKWEVCYU9437-75-52 10:07:0051.5[facility] HermannHEMATOLOGY 2017-05-29 10:07:0087.5[facility] KyvkicqONTZEEVFSF2759-65-66 10:07:0035.0[facility] TbskktyHVCGRYBOQX6924-26-80 10:07:00 Test Item Value Reference Range Interpretation Comments MCH (test code = MCH) 28.2 pg 27.0-31.0 [facility] VdkisjkBWMTYGFSAA3827-86-17 10:07:001.8[facility] HermannHEMATOLOGY 2017-05-29 10:07:000.1[facility] FygwcpuJBKNEARQJA0190-72-35 10:07:000.5[facility] KdgfsnwLKKQBIVTBA7552-35-45 10:07:003.5[facility] HjyibpiHGVXMJJQMA9984-91-23 10:07:0077.1[facility] CmtzxwpVVOBQMRBGT1400-64-78 10:07:0018.1[facility] [place] GMYPIVDRKR8336-27-86 10:07:0039.7[facility] IujxpfxFXHWMXPVQL9002-47-82 10:07:00 1.0[facility] KocxfecKQWBKDWBKV5426-57-51 10:07:009.3[facility]annHEMATOLOGY 2017-05-29 10:07:000.3[facility] ZlbrgybPHQHGDBAFH0250-35-59 10:41:001.0[facility] TfclekiDMGHHBPTCB4356-21-64 10:41:002.0[facility] NzxcyiiZNXDFDLIYH2722-53-12 10:41:00 Test Item Value Reference Range Interpretation Comments Tot Cell Ct (test code = Tot Cell Ct) 100 1 [facility] HehqgfkIRQDFQKYXC3303-70-43 10:41:002.0[facility]annHEMATOLOGY 2017-05-28 10:41:001+ (05/28/17 5:41 AM)[facility] NqyfxbkGVFSUSBPRC6166-79-89 10:41:00Moderate *ABN*(05/28/17 5:41 AM)[facility] SykcxwuKUGBUHVVJZ9301-98-45 10:41:001+ *ABN*(05/28/17 5:41 AM)[facility] YhvgpmuCXZSOEZLIS3495-93-22 10:41:001+ *ABN*(05/28/17 5:41 AM)[facility] YsbxtskWLQDALNDKZ2396-86-72 10:41:0042.8[facility] NbnndikYBTSTMWWSO7377-92-70 10:41:0013.0[facility] IxhpepePVXTFKDLSF0875-99-02 10:41:000.5[facility] ZjfjannXSXKYXGMVJ7915-63-21 10:41:0082.0[facility] OODWDBELLH8267-75-41 10:41:000.0[facility] RcqfnmeKRNCHZNMEQ0744-76-99 10:41:006.6 [facility] DggozsdXONFAOQGPJ8845-86-67 10:41:001.0[facility] HermannHEMATOLOGY 2017-05-28 10:41:69212Mteowzbu DntbzygBCYMGGJAMG9839-80-12 10:41:0016.4[facility] HnlpcdwWMRPEWVJXC9041-50-95 10:41:00 Test Item Value Reference Range Interpretation Comments MCH (test code = MCH) 27.8 pg 27.0-31.0 [facility] GxwqstnMOJLTASMEB3428-97-93 10:41:0032.2[facility]annHEMATOLOGY 2017-05-28 10:41:0086.2[facility] GwzvilmQEJCXYGTEY8911-29-60 10:41:0035.5[facility] RhzkrxpEDJDIAOAKW7715-49-36 10:41:008.2[facility] TnuakwyBEHBSERXNK2095-30-34 10:41:0011.4[facility] RzaozrwHKLJYRXDPU5180-46-49 10:41:004.13[facility] JBZQDESXNI8062-96-21 10:41:0051.0[facility] HermannCHEM TUYAQ0168-51-50 13:34:0068 [facility] HermannCHEM WLSHL7894-17-64 13:34:0024[facility] HermannCHEM PANEL 2017-05-27 13:34:58132Sigfqyrf HermannCHEM MJFAR6038-66-66 13:34:003.8[facility] HermannCHEM YXMYQ0617-38-08 13:34:82366Ilrixwki HermannCHEM GLNZN4791-16-37 13:34:001.08[facility] HermannCHEM LGGKJ0801-45-66 13:34:0020[facility] HermannCHEM FWPLV5600-95-29 13:34:008.7[facility] HermannCHEM VSPBL9069-27-78 13:34:36533 [facility] HermannCHEM UYAPR2586-93-37 13:34:0014.8[facility] HermannHEMATOLOGY 2017-05-27 13:34:001.3[facility] KeqxvmfBVEYJDYSAA0946-22-04 13:34:000.5[facility] YbwannrEFPLLDXHWI4878-65-65 13:34:000.3[facility] KstkuhqUQCPQJFIYU6144-22-56 13:34:000.8[facility] RincorgEFODHLNBVF0366-22-55 13:34:0010.9[facility] [place] KRCXAMAGOR7469-81-86 13:34:0044.6[facility] YdorhjhVOFLQWQIOW1777-97-53 13:34:00 0.3[facility] RpaqsxwIPZTGKYNUS7669-22-08 13:34:001+ *ABN*(05/27/17 8:34 AM) [facility] FqbseqbGVJVVDIWVP1497-28-26 13:34:000.2[facility] HermannHEMATOLOGY 2017-05-27 13:34:0019.3[facility] KqkodtuTIJCEQGICL6834-94-22 13:34:00Normal (05/27/17 8:34 AM)[facility] JvlzftmWTVFMYBKUE6409-21-55 13:34:0078.6[facility] GfwtvejQKLMBSITIT5929-96-44 13:34:96928Lihjtcbt UokbdzbOADQOSSYPL2882-80-64 13:34:008.5[facility] ItythscLFTVBSCAXZ4765-06-90 13:34:0033.0[facility] [place] [facility] MBOYDMCUSJ5357-20-64 13:34:0016.4[facility] VwtictlSYIOCEHOFH4616-98-87 13:34:00 12.4[facility] UrkatviCJASWUQPRE4006-46-05 13:34:0086.8[facility] HermannHEMATOLOGY 2017-05-27 13:34:0037.4[facility] XakkqmaHISHRGALJE7879-48-58 13:34:00 Test Item Value Reference Range Interpretation Comments MCH (test code = MCH) 28.7 pg 27.0-31.0 [facility] SmdfbedOSTOHWQWJD8860-21-74 13:34:0056.8[facility] HermannHEMATOLOGY 2017-05-27 13:34:004.31[facility] HermannBLOOD BANK CQDQOVF7078-24-91 06:34:00 Negative (05/27/17 1:34 AM)[facility] HermannBLOOD BANK ASTHHQG9200-78-23 06:25:00 Product available (05/27/17 1:25 AM)[facility] HermannCHEM SXGZN1360-91-13 04:22:00 49[facility] HermannCHEM OBSJA5046-02-55 04:22:07736Cwrkfete HermannCHEM PANEL 2017-05-27 04:22:003.5[facility] HermannCHEM CHOVM1123-60-76 04:22:10392Gcbnbhbp HermannCHEM ZQLQY7108-83-04 04:22:0025[facility] HermannCHEM DAELA8258-77-69 04:22:009.1[facility] HermannCHEM LEIDJ8043-01-81 04:22:53174Kwbepzlp HermannCHEM MPWKH5179-29-28 04:22:0025[facility] HermannCHEM COPCA3026-71-75 04:22:001.41 [facility] HermannCHEM ILHOA8531-12-53 04:22:0012.5[facility] HermannHEMATOLOGY 2017-05-27 04:22:000.0[facility] JpjslujDEEWPCWSWV0514-54-14 04:22:00Normal (05/26/17 11:22 PM)[facility] RivrupzAULNGQTNSH6756-12-33 04:22:000.0[facility] EqjrxsqOIJRBEXMZZ4716-93-39 04:22:00 Test Item Value Reference Range Interpretation Comments Tot Cell Ct (test code = Tot Cell Ct) 100 1 [facility] DwgsyiePIWMUERVHG4580-37-22 04:22:00Normal (05/26/17 11:22 PM)[facility] MebpodxKPJPODZBRJ1328-46-31 04:22:00 Test Item Value Reference Range Interpretation Comments INR (test code = INR) 1.13 1 0.85-1.17 [facility] GwxubyzEJWBZWGSDN5246-03-47 04:22:00 Test Item Value Reference Range Interpretation Comments PT (test code = PT) 14.5 s 12.0-14.7 [facility] TjdolcrHPIBQTWOXS7847-67-18 04:22:00 Test Item Value Reference Range Interpretation Comments PTT (test code = PTT) 33.1 s 22.9-35.8 [facility] HermannHEMOGLOBIN M4G3043-20-64 11:52:00 Test Item Value Reference Range Interpretation Comments HEMOGLOBIN A1C (BEAKER) (test code = 6.9 % 4.3-6.1 H 368) [id number] 11:12:00 Test Item Value Reference Range Interpretation Comments RPR SCREEN (BEAKER) (test code = Nonreactive Nonreactive 420) CBC W/PLT COUNT & AUTO CPLVJLIJERHJ6455-44-17 10:31:00 Test Item Value Reference Range Interpretation [...] (BEAKER) (test code = Present 1371) VITAMIN [id number] 08:02:00 Test Item Value Reference Range Interpretation Comments VITAMIN B12 (BEAKER) (test code = 346 pg/mL 213-816 774) TSH/FREE T4 IF PVFUXCKZW7080-15-01 08:02:00 Test Item Value Reference Range Interpretation Comments THYROID STIMULATING HORMONE 1.37 uIU/mL 0.35-4.94 (BEAKER) (test code = 772) CREATINE KINASE (CK), TOTAL AND [id number] 07:55:00 Test Item Value Reference Range Interpretation Comments CREATINE KINASE TOTAL (BEAKER) 72 U/L 29-200 (test code = 380) CREATINE KINASE-MB (BEAKER) (test 0.5 ng/mL 0.0-6.6 code = 750) CREATINE KINASE-MB INDEX (BEAKER) 0.7 % (test code = 395) CK-MB Reference Range:<6.7 Normal6.7-10.0 Borderline>10.0 AbnormalTROPONIN V0905-31-48 07:55:00 Test Item Value Reference Range Interpretation [...] acidosis, acute neurological disease, and persistent tachyarrhythmia.LIPID [id number] 07:39:00 Test Item Value Reference Range Interpretation [...] 130-159 High 160-189 Very High >=190BASIC METABOLIC [id number] 07:39:00 Test Item Value Reference Range Interpretation [...] DIALYSIS PATIEN TS. MR, MRA, BRAIN, WITHOUT [id number] 04:30:00Reason for exam:->Ischemic Stroke EvaluationFINAL REPORT MR, [...] MDReport Verified Date/Time: 01/29/2017 04:30:36 Reading Location: [facility] B1 C013X [facility] Consult Reading Room MR, MRA, NECK, WITHOUT IV [id number] 04:30:00Reason for exam:- >Ischemic Stroke EvaluationFINAL REPORT [...] MDReport Verified Date/Time: 01/29/2017 04:30:36 Reading Location: [facility] C013X [facility] Consult Reading Room MR, BRAIN, WITHOUT [id number] 04:30:00Reason for exam:- >Ischemic Stroke EvaluationFINAL REPORT [...] MDReport Verified Date/Time: 01/29/2017 04:30:36 Reading Location: [address] Reading Room CHEM [id number] 20:35:0054[facility] [id number] 20:35:0015.8[facility] [id number] 20:35:009.9[facility]annCHEM [id number] 20:35:0027[facility]ann[facility] [id number] 20:35:04640 [facility] [id number] 20:35:0091[facility]annCHEM PANEL 2016-09-19 20:35:0018[facility]annCHEM [id number] 20:35:05466Xdf[facility]pl HermannCHEM [id number] 20:35:001.31[facility] [id number] 20:35:003.8[facility] [place]
[2020-02-28] MEDS ORDERED: NA CHLORIDE 0.9% 500 ML ONE (23:09)
[2020-02-28] MEDS ORDERED: ONDANSETRON 4 MG/2 ML VIAL ONE (23:09)
[2020-02-28 23:19] LABS: Protime INR 1.29
[2020-02-28 23:22] LABS: Absolute Lymphocytes (CBC) 195.7 K/uL (0.7-4.9); Basophils % 0.2 % (0-1.3); MPV 8.1 fL (7.6-11.3); RBC Red Blood Cell Count 1.17 M/uL (4.33-5.43)
[2020-02-28 23:34] LABS: ALT/SGPT 17 U/L (12-78); AST/SGOT 38 U/L (15-37); Alkaline Phosphatase 104 U/L (45-117); BUN Blood Urea Nitrogen 35 mg/dL (7-18); Bicarbonate 20 mmol/L (21-32); Bilirubin Direct 0.3 mg/dL (0-0.2); Bilirubin Total 3.8 mg/dL (0.2-1.0); Glucose Level 204 mg/dL (74-106); Magnesium 2.3 mg/dL (1.8-2.4); NT PRO-BNP 2357 pg/mL (<450); Potassium 5.2 mmol/L (3.5-5.1); Protein, Total 6.8 g/dL (6.4-8.2); Sodium Level 141 mmol/L (136-145); Troponin (Emerg Dept Use Only) < 0.02 ng/mL (0.0-0.045)
[2020-02-28 23:37] LABS: Hematocrit 13.7 % (39.6-49.0)
--- NOTE | 2020-02-29 00:13 | ER ---
Nurse's Notes [facility] Name: Duke Marin III Age: 75 yrs Sex: Male : 1945 Arrival Date: 02/28/2020 Time: 22:14 Bed 5 Private MD: Diagnosis: Symptomatic Anemia Presentation: 02/27 22:15 Chief complaint: EMS states: Pt with Hx of Leukemia receiving BT ever couple of weeks. Pt was about to receive BT today but blood products was not yet ready. Was notified by PCP blood is ready ang Pt needed to get to ER for BT. Pt was also C/O weakness and was unable to get out of bed that is why EMS was called. Coronavirus screen: Client denies travel out of the [place] in the last 14 days. vomiting. Ebola Screen: Patient negative for fever greater than or equal to 101.5 degrees Fahrenheit, and additional compatible Ebola Virus Disease symptoms Patient denies exposure to infectious person. Initial Sepsis Screen: Does the patient meet any 2 criteria? No. Patient's initial sepsis screen is negative. Does the patient have a suspected source of infection? No. Patient's initial sepsis screen is negative. Risk Assessment: Do you want to hurt yourself or someone else? Patient reports no desire to harm self or others. Onset of symptoms was February 28, 2020. 22:15 Method Of Arrival: EMS: [facility] 22:15 Acuity: PARAG 3 Historical: - Allergies: 22:24 Ephedrine Sulfate; 22:24 Pseudoephedrine; 22:24 Augmentin; - PMHx: 22:24 Atrial Fib; Bladder cancer; CLL; CVA; enlarged aorta; Hypertension; SVT; wh - Immunization history:: Adult Immunizations not up to date. - Social history:: Smoking status: Patient/guardian denies using. Screenin:24 Abuse screen: Denies threats or abuse. Denies injuries from another. Nutritional screening: No deficits noted. Tuberculosis screening: No symptoms or risk factors identified. Fall Risk None identified. Assessment: 22:25 General: Appears uncomfortable, Behavior is quiet. Pain: Denies pain. Neuro: Level of ea Consciousness is awake, alert, obeys commands, Oriented to person, place, time. Cardiovascular: Patient's skin is warm and dry. Respiratory: Airway is patent Respiratory effort is even, unlabored, Respiratory pattern is regular, symmetrical. Derm: Skin is fragile, is thin, has skin tears on left elbow Skin is dry, Skin is jaundiced, Skin temperature is warm. 23:30 Reassessment: Patient and/or family updated on plan of care and expected duration. Pain ea level reassessed. Pt resting with eyes closed. Awakes with verbal stimulus, respirations even and unlabored, chest expansions even and symmetrical. No s/s of pain or discomfort noted at this time. 02/28 00:00 Reassessment: Patient and/or family updated on plan of care and expected duration. Pain ea level reassessed. Pt resting with eyes closed, respirations even and unlabored, chest expansions even and symmetrical. No s/s of pain or discomfort noted at this time. 02:17 Reassessment: Report given to receiving nurse on second floor. Pt left ED via stretcher ea accompanied by nurse. Pt tolerating well. Vital Signs: 02/27 22:15 BP 116 / 79; Pulse 76; Resp 18; Temp 98.4; Pulse Ox 100% ; Weight 81.65 kg; Height 5 wh ft. 10 in. (177.80 cm); 02/28 00:33 BP 129 / 72; Pulse 85; Resp 16; Pulse Ox 93% ; ea 02:19 BP 123 / 59; Pulse 81; Resp 18; Pulse Ox 94% on R/A; ea 02/27 22:15 Body Mass Index 25.83 (81.65 kg, 177.80 cm) ED Course: 02/27 22:14 Patient arrived in ED. am2 22:14 Mathew Purcell MD is Attending Physician. [facility] 22:15 Radha Ferraro, CHRISTOPHER is Primary Nurse. ea 22:23 Triage completed. 22:24 Patient has correct armband on for positive identification. Bed in low position. Call light in reach. Side rails up X 1. Pulse ox on. NIBP on. 22:24 Patient has correct armband on for positive identification. Bed in low position. Call light in reach. Side rails up X2. rigger on. Pulse ox on. NIBP on. 22:25 Arm band placed on right wrist. 22:28 XRAY Chest (1 view) In Process Unspecified. EDMS 23:20 CT Head Brain wo Cont In Process Unspecified. EDMS 02/28 00:12 Vandana Salmon MD is Hospitalizing Provider. [facility] 00:32 No provider procedures requiring assistance completed. Patient admitted, IV remains in ea place. Administered Medications: 02/27 23:00 Drug: NS 0.9% 500 ml Route: IV; Rate: bolus; Site: left antecubital; ea 23:01 Drug: Zofran (Ondansetron) 4 mg Route: IVP; Site: left antecubital; ea 02/28 01:34 Follow up: Response: No adverse reaction ea Outcome: 00:13 Decision to Hospitalize by Provider. 7 00:32 Instructed on the need for admit, Demonstrated understanding of instructions. ea 01:30 Condition: stable ea 02:20 Admitted to Med/surg accompanied by nurse, accompanied by tech, via stretcher, room ea 207, on monitor, with chart, Report called to Receiving nurse on second floor 02:21 Patient left the ED. ea Signatures: Dispatcher [employer] EDCA Thea Veras Elena, RN RN Jose Luis Iniguez RN RN Mathew Purcell MD MD 7 Corrections: (The following items were deleted from the chart) 02/27 22:26 22:23 Immunization history: Adult Immunizations [facility] 02/28 02:19 02/27 23:30 Reassessment: Patient and/or family updated on plan of care and expected ea duration. Pain level reassessed. Patient is alert, oriented x 3, equal unlabored respirations, skin warm/dry/pink. ea
--- NOTE | 2020-02-29 00:13 | EDPHYS ---
Physician Documentation [facility] Name: Duke Marin III Age: 75 yrs Sex: Male : 1945 Arrival Date: 02/28/2020 Time: 22:14 Bed 5 Private MD: ED Physician Mathew Purcell HPI: 02/27 22:38 This 75 yrs old Male presents to ER via EMS with complaints of Abnormal Lab mh7 Results. 22:39 The patient presents to the emergency department with weakness of the entire body, mh7 generalized weakness, that is moderate. 22:39 Onset: The symptoms/episode began/occurred today, at an unknown time. Context: occurred mh7 at home, occurred while the patient was lying down. Associated signs and symptoms: Pertinent positives: nausea, weakness, vomiting x3, Pertinent negatives: altered mental status, chills, dizziness, fever, headache, neck stiffness, paresthesias, seizure, syncope, near-syncope, blurred vision, double vision, visual field changes, loss of vision. Severity of symptoms: At their worst the symptoms were moderate today, in the emergency department the symptoms are unchanged. Patient's baseline: Neuro: alert and fully oriented, Motor: no deficits, Ambulation: walks without assistance, Speech: normal, The patient has a previous history of blood transfusion. 22:43 Current symptoms: generalized weakness/fatigue. The patient has experienced similar mh7 episodes in the past, several times. Historical: - Allergies: 22:24 Ephedrine Sulfate; wh 22:24 Pseudoephedrine; wh 22:24 Augmentin; wh - PMHx: 22:24 Atrial Fib; Bladder cancer; CLL; CVA; enlarged aorta; Hypertension; SVT; wh - Immunization history:: Adult Immunizations not up to date. - Social history:: Smoking status: Patient/guardian denies using. ROS: 22:43 Constitutional: Negative for fever, chills, and weight loss, Eyes: Negative for injury, mh7 pain, redness, and discharge, ENT: Negative for injury, pain, and discharge, Neck: Negative for injury, pain, and swelling, Cardiovascular: Negative for chest pain, palpitations, and edema, Respiratory: Negative for shortness of breath, cough, wheezing, and pleuritic chest pain. 22:43 Back: Negative for injury and pain, : Negative for injury, bleeding, discharge, and swelling, MS/Extremity: Negative for injury and deformity, Skin: Negative for injury, rash, and discoloration, Neuro: Negative for headache, weakness, numbness, tingling, and seizure, Psych: Negative for depression, anxiety, suicide ideation, homicidal ideation, and hallucinations, Allergy/Immunology: Negative for hives, rash, and allergies, Endocrine: Negative for neck swelling, polydipsia, polyuria, polyphagia, and marked weight changes, Hematologic/Lymphatic: Negative for swollen nodes, abnormal bleeding, and unusual bruising. 22:43 Abdomen/GI: Negative for abdominal pain, diarrhea, constipation, abdominal cramps, abdominal distension, anorexia, dysphagia, hematemesis, black/tarry stool, rectal pain, rectal bleeding, bowel incontinence, flatulence. Exam: 22:43 Head/Face: Normocephalic, atraumatic. Eyes: Pupils equal round and reactive to light, mh7 extra-ocular motions intact. Lids and lashes normal. Conjunctiva and sclera are non-icteric and not injected. Cornea within normal limits. Periorbital areas with no swelling, redness, or edema. Neck: Trachea midline, no thyromegaly or masses palpated, and no cervical lymphadenopathy. Supple, full range of motion without nuchal rigidity, or vertebral point tenderness. No Meningismus. Chest/axilla: Normal chest wall appearance and motion. Nontender with no deformity. No lesions are appreciated. Cardiovascular: Regular rate and rhythm with a normal S1 and S2. No gallops, murmurs, or rubs. Normal PMI, no JVD. No pulse deficits. Respiratory: Lungs have equal breath sounds bilaterally, clear to auscultation and percussion. No rales, rhonchi or wheezes noted. No increased work of breathing, no retractions or nasal flaring. Abdomen/GI: Soft, non-tender, with normal bowel sounds. No distension or tympany. No guarding or rebound. No evidence of tenderness throughout. Back: No spinal tenderness. No costovertebral tenderness. Full range of motion. Skin: Warm, dry with normal turgor. Normal color with no rashes, no lesions, and no evidence of cellulitis. MS/ Extremity: Pulses equal, no cyanosis. Neurovascular intact. Full, normal range of motion. Neuro: Awake and alert, GCS 15, oriented to person, place, time, and situation. Cranial nerves II-XII grossly intact. Motor strength 5/5 in all extremities. Sensory grossly intact. Cerebellar exam normal. Normal gait. Psych: Awake, alert, with orientation to person, place and time. Behavior, mood, and affect are within normal limits. 22:43 Constitutional: The patient appears in no acute distress, alert, awake, uncomfortable. Vital Signs: 22:15 BP 116 / 79; Pulse 76; Resp 18; Temp 98.4; Pulse Ox 100% ; Weight 81.65 kg; Height 5 wh ft. 10 in. (177.80 cm); 02/28 00:33 BP 129 / 72; Pulse 85; Resp 16; Pulse Ox 93% ; ea 02:19 BP 123 / 59; Pulse 81; Resp 18; Pulse Ox 94% on R/A; ea 02/27 22:15 Body Mass Index 25.83 (81.65 kg, 177.80 cm) wh MDM: 00:10 Data reviewed: vital signs, nurses notes, lab test result(s), cardiac enzymes, CBC, [facility] electrolytes, urinalysis, EKG, radiologic studies, CT scan, plain films. Data interpreted: Pulse oximetry: on room air is 100 %. Interpretation: normal. Counseling: I had a detailed discussion with the patient and/or guardian regarding: the historical points, exam findings, and any diagnostic results supporting the discharge/admit diagnosis, lab results, radiology results, the need for further work-up and treatment in the hospital. Response to treatment: the patient's symptoms have mildly improved after treatment. 00:13 Patient medically screened. 02/27 22:17 Order name: Basic Metabolic Panel; Complete Time: 00: [facility] 02/27 22:17 Order name: CBC with Diff [facility] 02/27 21: Order name: LFT's; Complete Time: 00: [facility] 02/27 22:17 Order name: Magnesium; Complete Time: 00: [facility] 02/27 22: Order name: NT PRO-BNP; Complete Time: 00: [facility] 02/27 22:17 Order name: PT-INR; Complete Time: 23:34 [facility] 02/27 22: Order name: Troponin (emerg Dept Use Only); Complete Time: 00:01 [facility] 02/27 22:17 Order name: Type And Screen [facility] 02/27 22:21 Order name: Lipase [facility] 02/27 22:22 Order name: Lipase; Complete Time: 00:01 [facility] 02/27 22:30 Order name: COVID-19 02/27 22:31 Order name: CORONAVIRUS [facility] 02/27 23:33 Order name: PRBC [facility] 02/27 23:34 Order name: Packed RBC Leukored [facility] 02/27 22:17 Order name: XRAY Chest (1 view) [facility] 02/27 22:17 Order name: EKG; Complete Time: 22:19 [facility] 02/27 22:17 Order name: Cardiac monitoring; Complete Time: 23: [facility] 02/27 22:17 Order name: EKG - Nurse/Tech; Complete Time: 23: [facility] 02/27 22:17 Order name: IV Saline Lock; Complete Time: 22:26 [facility] 02/27 22:17 Order name: Labs collected and sent; Complete Time: 22:26 [facility] 02/27 22:17 Order name: O2 Per Protocol; Complete Time: 22:26 [facility] 02/27 22:17 Order name: O2 Sat Monitoring; Complete Time: 22:27 [facility] 02/27 22:36 Order name: CT Head Brain wo Cont [facility] 02/27 23:34 Order name: ABO/RH typing [facility] 02/27 23:34 Order name: Antibody Screen [facility] 02/27 23:37 Order name: Manual Differential [facility] 02/28 01:42 Order name: SARS-COV-2 RT PCR EDTN Administered Medications: 02/27 23:00 Drug: NS 0.9% 500 ml Route: IV; Rate: bolus; Site: left antecubital; ea 23:01 Drug: Zofran (Ondansetron) 4 mg Route: IVP; Site: left antecubital; ea 02/28 01:34 Follow up: Response: No adverse reaction ea Disposition: 02/29/20 00:13 Hospitalization ordered by Vandana Salmon for Inpatient Admission. Preliminary diagnosis is Symptomatic Anemia. - Bed requested for Telemetry/MedSurg (Inpatient). - Status is Inpatient Admission. ea - Condition is Stable. - Problem is an acute exacerbation. - Symptoms have improved. Signatures: Dispatcher [employer] EDTN Ambrosio Andrews, HAIR CUTTER-C HAIR CUTTER-Cla1 Kathy Burr, RN RN Radha Ferraro, RN Jose Luis Muñoz ea, RN RN Mathew Purcell MD MD mh7 Corrections: (The following items were deleted from the chart) 02/27 22:26 22:23 Immunization history: Adult Immunizations [facility] 02/28 01:15 00:13 Hospitalization Ordered by Vandana Salmon MD for Inpatient Admission. Preliminary cg diagnosis is Symptomatic Anemia. Bed requested for Telemetry/MedSurg (Inpatient). Status is Inpatient Admission. Condition is Stable. Problem is an acute exacerbation. Symptoms have improved. mh7 02:21 01:15 02/29/2020 00:13 Hospitalization Ordered by Vandana Salmon MD for Inpatient ea Admission. Preliminary diagnosis is Symptomatic Anemia. Bed requested for Telemetry/MedSurg (Inpatient). Status is Inpatient Admission. Condition is Stable. Problem is an acute exacerbation. Symptoms have improved. cg
--- NOTE | 2020-02-29 00:31 | P.HP ---
Certification for Inpatient Patient admitted to: Observation With expected LOS: <2 Midnights Patient will require the following post-hospital care: None Practitioner: I am a practitioner with admitting privileges, knowledge of patient current condition, hospital course, and medical plan of care. Services: Services provided to patient in accordance with Admission requirements found in Title 42 Section 412.3 of the Code of Federal Regulations Patient History Date of Service: 02/29/20 Primary Care Provider: Dr. Looney (covering this weekend for him) Reason for admission: Anemia History of Present Illness: 75-year-old male with history of CLL, bladder cancer, hypertension, anemia. Patient has fairly routine blood transfusions due to anemia and neoplastic disease. Patient had come to the hospital earlier for blood transfusion but was told that due to his antibodies he would take a long time to receive the blood and that he could go home and come back. Patient went home and became very weak at that time, patient was unable to get out of bed so the family called EMS to transport him to the hospital. Patient was evaluated by the emergency department physician labs significant for white blood cell count 215.2 hemoglobin 4.7 hematocrit 13.7, platelets 296 91% lymphocytes present. Patient also with CKD 3 with mild worsening kidney function and mild hyperkalemia potassium 5.2. Patient denies any melena, bright red blood per rectum, hematemesis, abdominal pain. ED provider wishes to admit patient for transfusion and observation admit. When I saw the patient in the ER he was awake, drowsy, oriented x3. Patient sees local oncologist for treatment of CLL and is due to start chemotherapy on Monday. Will admit for further evaluation and management. Allergies pseudoephedrine Allergy (Mild, Verified 01/31/20 09:35) Shortness of breath ciprofloxacin Allergy (Verified 01/31/20 09:38) Shortness of breath Home Medications: Aspirin [Aspirin EC 81 MG] 81 mg PO DAILY 01/16/20 Clopidogrel Bisulfate [Plavix*] 75 mg PO DAILY 01/16/20 Diltiazem HCl [Diltiazem 24Hr ER] 120 mg PO DAILY 01/16/20 Nebivolol HCl [Bystolic] 10 mg PO DAILY 01/16/20 Rosuvastatin [Crestor*] 10 mg PO DAILY 01/16/20 Acetaminophen [Tylenol Extra Strength] 500 mg PO Q6HP PRN 01/21/20 Cyanocobalamin [Vitamin B-12*] 1,000 mg PO DAILY 01/21/20 Folic Acid 1 mg PO DAILY 01/21/20 Melatonin [Melatonin*] 3 mg PO BEDTIME PRN PRN 01/21/20 Thiamine HCl [Vitamin B-1*] 100 mg PO DAILY 01/21/20 Ferrous Sulfate [Ferrous Sulfate*] 325 mg PO DAILY #30 tab 02/11/20 Iron/FA/Vit B-Com W/C [Hemocyte Plus*] 1 tab PO DAILY WITH BREAKFAST #30 tab 02/11/20 - Past Medical/Surgical History Diabetic: No -: Hypertension -: CLL -: SVT -: CVA -: AAA -: Bladder cancer (Chemo 4 months ago) -: History CVA -: Atrial fibrillation -: CLL -: Right cataract surgery -: bladder resection x2 -: LAMINECTOMY -: Stent placed in Aorta due to Aneurysm -: Surgery to left leg due to blood clot Psychosocial/ Personal History: Patient is - Family History Father -: Cancer - Social History Smoking Status: Former smoker Alcohol use: No CD- Drugs: No Caffeine use: Yes Place of Residence: Home Review of Systems 10-point ROS is otherwise unremarkable General: Weakness, Malaise Physical Examination - Physical Exam General: Oriented x3, Other (Drowsy) HEENT: Atraumatic, Normocephalic Neck: Supple Respiratory: Clear to auscultation bilaterally, Normal air movement Cardiovascular: No edema, Normal S1 S2 Capillary refill: <2 Seconds Gastrointestinal: Normal bowel sounds, No tenderness Musculoskeletal: No contractures, No erythema, No tenderness Integumentary: No significant lesion, No tenderness/swelling, No erythema Neurological: Normal strength at 5/5 x4 extr, Normal tone, Sensation intact - Studies Laboratory Data (last 24 hrs) 02/28/20 22:25: Lipase 79 02/28/20 22:25: PT 15.2 H, INR 1.29 02/28/20 22:25: WBC 215.2 H* D, Hgb 4.7 L*, Hct 13.7 L* D, Plt Count 296 02/28/20 22:25: Sodium 141, Potassium 5.2 H, BUN 35 H, Creatinine 1.96 H, Glucose 204 H, Magnesium 2.3, Total Bilirubin 3.8 H, AST 38 H, ALT 17, Alkaline Phosphatase 104 Assessment and Plan - Plan Assessment 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 Evaluate B12, folate levels with morning labs. Patient due to start chemotherapy on Monday. Consult hematology as necessary. DVT prophylaxis with SCDs. CLL: White blood cell count 215, 90% lymphocytosis. Patient due to start chemotherapy on Monday. AGUS on CKD 3 with mild hyperkalemia: Continue gentle hydration, blood transfusions. Repeat chemistry in the morning, 1 time dose of Kayexalate since patient will be receiving blood transfusions. HTN: Obtain and continue home medications as appropriate. Discharge Plan: Home Plan to discharge in: 24 Hours - Advance Directives Does patient have a Living Will: No Does patient have a Durable POA for Healthcare: No - Code Status/Comfort Care Code Status Assessed: Yes (Full Code) Critical Care: No Time Spent Managing Pts Care (In Minutes): 55
[2020-02-29 00:41] LABS: Anisocytosis 1+; Blood Morphology Comment NOTED (NOT SEEN); Macrocytosis 2+; Platelet Estimate ADEQ
[2020-02-29] MEDS ORDERED: ACETAMINOPHEN 500 MG TAB PO PRN (02:19)
[2020-02-29] MEDS ORDERED: ONDANSETRON 4 MG/2 ML VIAL IV PRN (02:19)
[2020-02-29] MEDS ORDERED: SOD POLYSTYREN SUL 15 GM/60 ML UCUP PO ONE (02:19)
[2020-02-29] MEDS ORDERED: NA CHLORIDE 0.9% 1,000 ML IV SCH (02:19)
[2020-02-29 04:14] VITALS: BMI 24.8
[2020-02-29] MEDS ORDERED: NA CHLORIDE 0.9% 250 ML ONE ×3 (04:43→22:24)
[2020-02-29] MEDS ORDERED: FUROSEMIDE 40 MG/4 ML VIAL IV ONE ×2 (07:43→16:33)
--- NOTE | 2020-02-29 07:46 | P.PN ---
Date of Service: 02/29/20 seen today , feel very lethargic , s/p PRBC -mild congestion noted ,will dc IVF, lasix 40 x 1 now -consult renal team - have PT/OT eval -follow repeat h/h and if stable in am , along with improving cr , may dc home
--- NOTE | 2020-02-29 09:55 | RAD REPORT ---
EXAM DESCRIPTION: Cat Single View02/28/2020 10:30 pm CLINICAL HISTORY: Bladder cancer/weakness COMPARISON: January 2020 FINDINGS: The lungs appear clear of acute infiltrate. The heart is mildly enlarged IMPRESSION: No acute abnormalities displayed
[2020-02-29 10:16] LABS: Hematocrit 19.7 % (39.6-49.0)
[2020-02-29 10:33] LABS: Magnesium 2.4 mg/dL (1.8-2.4); Potassium 4.8 mmol/L (3.5-5.1)
--- NOTE | 2020-02-29 16:24 | P.CNS ---
Date of Consult: 02/29/20 Reason for Consult: AGUS, hyperkalemia Primary Care Provider: Dr. Looney (covering this weekend for him) Chief Complaint: Anemia History of Present Illness: 75-year-old male with history of CKD III baseline Cr ~1.6, CLL, bladder cancer, hypertension, and chronic anemia. pt presented for weakness in ER WBC 215.2 hemoglobin 4.7 hematocrit 13.7, platelets 296 91% lymphocytes present, CR 1.9 , K 5.2 Review of Systems: general; : +ve for weakness Head and Neck: No red eye. No ear pain. GI: No nausea, no vomiting. : No polyuria, no dysuria, no hematuria. Crib Tender: Not applicable. Respiratory: No shortness of breath. Cardiovascular: No chest pain. Endocrine: No polydipsia. Skin: No rash. Neuro: no neuropathy. Musculoskeletal: No back pain . Physical exam general: AAOX3, NAD Neck; Supple, No elevated JVD hear: RRR, normal S1,2 no murmur or rub Chest: CTAB, no rlaes or wheezes Abdomen: Soft , Nt Extremities trace edema, A/P AGUS on CKD III due to hypovemia Cr now down to baseline renal dose meds Hyperkalemia resolved CLL now WBC up to 213 Acute on chronic anemia S/p 2 PRBC total time spent 65 min Allergies pseudoephedrine Allergy (Mild, Verified 01/31/20 09:35) Shortness of breath amoxicillin [From Augmentin] Allergy (Verified 02/29/20 03:28) pt cant recall ciprofloxacin Allergy (Verified 01/31/20 09:38) Shortness of breath clavulanic acid [From Augmentin] Allergy (Verified 02/29/20 03:28) pt cant recall ephedrine Allergy (Verified 02/29/20 03:28) pt cant recall Home Medications: Aspirin [Aspirin EC 81 MG] 81 mg PO DAILY 01/16/20 Clopidogrel Bisulfate [Plavix*] 75 mg PO DAILY 01/16/20 Diltiazem HCl [Diltiazem 24Hr ER] 120 mg PO DAILY 01/16/20 Nebivolol HCl [Bystolic] 10 mg PO DAILY 01/16/20 Rosuvastatin [Crestor*] 10 mg PO DAILY 01/16/20 Folic Acid 1 mg PO DAILY 01/21/20 Thiamine HCl [Vitamin B-1*] 100 mg PO DAILY 01/21/20 Ferrous Sulfate [Ferrous Sulfate*] 325 mg PO DAILY #30 tab 02/11/20 Iron/FA/Vit B-Com W/C [Hemocyte Plus*] 1 tab PO DAILY WITH BREAKFAST #30 tab 02/11/20 - Past Medical/Surgical History Diabetic: No -: Hypertension -: CLL -: SVT -: CVA -: AAA -: Bladder cancer -: Afib -: Atrial fibrillation -: CLL -: Right cataract surgery -: bladder resection x2 -: LAMINECTOMY -: Stent placed in Aorta due to Aneurysm -: Surgery to left leg due to blood clot Psychosocial/ Personal History: Patient is - Family History Father Medical History: Cancer Notes: Lung Ca - Social History Smoking Status: Current every day smoker Alcohol use: Yes CD- Drugs: No Caffeine use: Yes Place of Residence: Home Physical Examination Temp Pulse Resp BP Pulse Ox 97.9 F 77 18 132/63 95 02/29/20 12:00 02/29/20 12:00 02/29/20 12:00 02/29/20 12:00 02/29/20 12:00 Laboratory Data (last 24 hrs) 02/28/20 22:25: Lipase 79 02/28/20 22:25: PT 15.2 H, INR 1.29 02/28/20 22:25: WBC 215.2 H* D, Hgb 4.7 L*, Hct 13.7 L* D, Plt Count 296 02/28/20 22:25: Sodium 141, Potassium 5.2 H, BUN 35 H, Creatinine 1.96 H, Glucose 204 H, Magnesium 2.3, Total Bilirubin 3.8 H, AST 38 H, ALT 17, Alkaline Phosphatase 104
[2020-02-29] MEDS ORDERED: METHYLPREDNISOLONE 125 MG INJ IV ONE (16:33)
--- NOTE | 2020-02-29 20:54 | RAD REPORT ---
EXAM DESCRIPTION: CT - Head Brain Wo Cont - 02/29/2020 7:14 am CLINICAL HISTORY: The patient is 75 years old and is Male; WEAKNESS TECHNIQUE: Axial computed tomography images of the head/brain without intravenous contrast. Sagitt al and coronal reformatted images were created and reviewed. This CT exam was performed using one o r more of the following dose reduction techniques: automated exposure control, adjustment of the mA and/or kV according to patient size, and/or use of iterative reconstruction technique. COMPARISON: CT of the head January 20, 2020 FINDINGS: BRAIN: Evidence of multiple prior right basal ganglia lacunar infarcts are noted. Ther e is diffuse cerebral atrophy present, consistent with this patient's age. There is patchy hypoatte nuation of the deep white matter which is non-specific, but most likely owing to chronic small vessel ischemic change in a patient of this age group. No intracranial hemorrhage, mass effect, or midlin e shift is seen. There are no extra-axial fluid collections VENTRICLES: There is diffuse prominence of the ventricles, which is likely related to central atr ophy. BONES/JOINTS: No acute fracture. SOFT TISSUES: Unremarkable. SINUSES: Unremarkable as visualized. No acute sinusitis. MASTOID AIR CELLS: Unremarkable as visualized. No mastoid effusion. ORBITS: Unremarkable as visualized. IMPRESSION: Age-related atrophy and chronic white matter ischemic changes, with no evidence of an ac [place] intracranial abnormality. Electronically signed by: Ximena Dave MD 02/28/2020 11:29 PM PLATEN PRESS OPERATOR Due to temporary technical issues with the PACS/Fluency reporting system, reports are being signed by the in house radiologists without review as a courtesy to insure prompt reporting. The interpreting radiologist is fully responsible for the content of the report.
[2020-02-29 21:27] LABS: Hematocrit 21.6 % (39.6-49.0)
[2020-03-01 04:59] LABS: Absolute Lymphocytes (CBC) 227.8 K/uL (0.7-4.9); Basophils % 0.1 % (0-1.3); Hematocrit 26.1 % (39.6-49.0); MPV 8.3 fL (7.6-11.3); RBC Red Blood Cell Count 2.57 M/uL (4.33-5.43)
[2020-03-01 06:26] LABS: BUN Blood Urea Nitrogen 43 mg/dL (7-18); Bicarbonate 24 mmol/L (21-32); Folic Acid, (Folate) > 20.0 ng/mL (3.1-17.5); Glucose Level 328 mg/dL (74-106); Magnesium 2.4 mg/dL (1.8-2.4); Potassium 4.5 mmol/L (3.5-5.1); Sodium Level 137 mmol/L (136-145)
[2020-03-01] MEDS: FE SULF/FA/VIT B COMP & C TAB PO SCH (08:00)
[2020-03-01] MEDS: ASPIRIN EC 81 MG TAB PO SCH (09:03)
[2020-03-01] MEDS: ROSUVASTATIN 10 MG TAB PO SCH (09:04)
[2020-03-01] MEDS: NEBIVOLOL HCL 5 MG TAB PO SCH (09:04)
[2020-03-01] MEDS: CLOPIDOGREL 75 MG TABLET PO SCH (09:05)
[2020-03-01] MEDS: FOLIC ACID 1 MG TABLET PO SCH (09:05)
[2020-03-01] MEDS: FERROUS SULFATE 325 MG TAB PO SCH (09:05)
--- NOTE | 2020-03-01 10:37 | P.PN ---
Subjective Date of Service: 03/01/20 Primary Care Provider: Dr. Looney (covering this weekend for him) Chief Complaint: Anemia subjctive 75-year-old male with history of CKD III baseline Cr ~1.6, CLL, bladder cancer, hypertension, and chronic anemia. pt presented for weakness in ER WBC 215.2 hemoglobin 4.7 hematocrit 13.7, platelets 296 91% lymphocytes present, CR 1.9 , K 5.2 today feels better S/P 4 PRBC Cr up to 1.8, will start gentle hydration WBC now up to 240 K Review of Systems: general; : +ve for weakness Head and Neck: No red eye. No ear pain. GI: No nausea, no vomiting. : No polyuria, no dysuria, no hematuria. Ice Crusher: Not applicable. Respiratory: No shortness of breath. Cardiovascular: No chest pain. Endocrine: No polydipsia. Skin: No rash. Neuro: no neuropathy. Musculoskeletal: No back pain . Physical exam general: AAOX3, NAD Neck; Supple, No elevated JVD hear: RRR, normal S1,2 no murmur or rub Chest: CTAB, no rlaes or wheezes Abdomen: Soft , Nt Extremities no edema, A/P AGUS on CKD III due to hypovemia will start gentle hydration will order renal US renal dose meds Hyperkalemia resolved CLL now WBC up to 240 Acute on chronic anemia S/p 4 PRBC total time spent 45 min Prognosis guarded Physical Examination - Vital Signs Temperature: 97.5 F Blood Pressure: 152/72 Pulse: 75 Respirations: 20 Pulse Ox (%): 96 - Studies Medications List Reviewed: Yes
[2020-03-01] MEDS ORDERED: NA CHLORIDE 0.9% 1,000 ML IV SCH (11:00)
--- NOTE | 2020-03-01 12:17 | P.PN ---
Subjective Date of Service: 03/01/20 Primary Care Provider: Dr. Looney (covering this weekend for him) Chief Complaint: Anemia Subjective: Improving (Patient is doing well patient was transfused blood wants to be transferred to [facility] no new complain) Review of Systems 10-point ROS is otherwise unremarkable General: Weakness Physical Examination - Vital Signs Temperature: 97.5 F Blood Pressure: 152/72 Pulse: 75 Respirations: 20 Pulse Ox (%): 96 - Physical Exam General: Alert, Oriented x3 Respiratory: Clear to auscultation bilaterally Cardiovascular: No edema, Normal S1 S2 - Studies Medications List Reviewed: Yes Assessment & Plan - Problems (Diagnosis) (1) CLL (chronic lymphocytic leukemia) Onset Date: 01/12/17 Current Visit: No Status: Acute Plan: Patient has a chronic lymphocytic leukemia status post blood transfusion renal function is improving patient refuses to go home once a be transferred to [facility] will discuss with Dr. Looney tomorrow/has been evaluated and treated [facility] at [facility] vital signs stable
--- NOTE | 2020-03-01 19:07 | RAD REPORT ---
EXAM DESCRIPTION: US - Renal Ultrasound-Complete - 03/01/2020 6:27 pm CLINICAL HISTORY: CKD COMPARISON: Abdomen Pelvis W Contrast dated 01/20/2020 FINDINGS: The right kidney measures 10.9 x 3.9 x 4.9 cm. The left kidney measures 11.0 x 3.5 x 5.0 cm. Renal cortical thickness and echogenicity are normal. No hydronephrosis or suspicious renal mass. Small cysts are seen in the upper pole right kidney up to 11 mm in size. Approximately 4.5 centimete r lower pole left renal cyst is present matching the CT study. Smaller upper pole left renal cyst pre sent and unchanged. No bladder wall thickening or mass. No intraluminal stone or mass. Splenomegaly is present but not fully assessed on this renal ultrasound study. IMPRESSION: No hydronephrosis or suspicious renal mass. Bilateral renal cysts similar to January 2020 study.
[2020-03-02 06:04] LABS: Basophils % 0.1 % (0-1.3); Hematocrit 22.6 % (39.6-49.0); Lymphocytes % 92.1 % (15.3-44.8); RBC Red Blood Cell Count 2.22 M/uL (4.33-5.43)
[2020-03-02 06:14] LABS: Potassium 3.7 mmol/L (3.5-5.1)
[2020-03-02] MEDS: NEBIVOLOL HCL 5 MG TAB PO SCH (08:56)
[2020-03-02] MEDS: ASPIRIN EC 81 MG TAB PO SCH (08:56)
[2020-03-02] MEDS: FOLIC ACID 1 MG TABLET PO SCH (08:56)
[2020-03-02] MEDS: FE SULF/FA/VIT B COMP & C TAB PO SCH (08:56)
[2020-03-02] MEDS: CLOPIDOGREL 75 MG TABLET PO SCH (08:56)
[2020-03-02] MEDS: FERROUS SULFATE 325 MG TAB PO SCH (08:57)
[2020-03-02] MEDS: ROSUVASTATIN 10 MG TAB PO SCH (08:57)
[2020-03-02] MEDS ORDERED: DILTIAZEM HCL 120 MG SR CAP PO SCH (09:14)
[2020-03-02] MEDS ORDERED: METOPROLOL TARTRATE 5 MG/5 ML INJ IV STA (11:03)
[2020-03-02] MEDS ORDERED: NA CHLORIDE 0.9% 250 ML IV ONE ×2 (11:35→12:00)
[2020-03-02] MEDS ORDERED: DIGOXIN 0.25 MG/ML AMP ONE (11:37)
[2020-03-02] MEDS ORDERED: DIGOXIN 0.25 MG/ML AMP IV SCH ×2 (12:00)
[2020-03-02] MEDS ORDERED: AMIODARONE HCL 900 MG in Dextrose 5%-Water 482 ML IV SCH (13:00)
[2020-03-02] MEDS: MIDODRINE HCL 5 MG TABLET PO SCH ×3 (13:08→21:00)
[2020-03-02] MEDS ORDERED: NA CHLORIDE 0.9% 500 ML IV ONE (16:00)
[2020-03-02] MEDS ORDERED: NA CHLORIDE 0.9% 500 ML ONE (16:21)
--- NOTE | 2020-03-02 16:41 | CON ---
Date of Consultation: 03/02/2020 Reason For Consultation: Atrial fibrillation. History Of Present Illness: This is a 75-year-old male with history of CLL, bladder cancer, hyperten asmantha, anemia, comes in with severe anemia. After 4 units of PRBC transfusion, his hemoglobin remaine d around 7. He had an episode of SVT, heart rate close to 100. As such, we were consulted. The pat ient apparently was placed on IV amiodarone and at the time of my evaluation, his heart rate is down to the 120s. Blood pressure is on the low side. Past Medical History: As outlined above in HPI. Medications: Refer to reconciliation sheet for detailed list. Allergies: MULTIPLE ALLERGIES. ALLERGIES WERE REVIEWED. Family History: No premature coronary artery disease or cancer. Social History: Ex-smoker. Does not drink or use any drugs. Review of Systems: All systems reviewed and they were negative except for what mentioned in the HPI. Physical Examination: Vital Signs: Temperature is 97.9, heart rate is 125, breathing at 19, blood pressure is 89/64, satur ating 99%. General: This is an elderly male, in no distress. Head and Neck: Pupils are equal, reactive to light. Intact eye movements. No JVD. No cervical lym phadenopathy. Neck: Supple. Thyroid is not enlarged. Lungs: Clear to auscultation. Heart: Regular rate and rhythm. Tachycardic. Abdomen: Soft, nontender. Bowel sounds positive. No organomegaly. No masses or hernia. No rigidi ty or rebound. Extremities: No clubbing, cyanosis. Intact pulses. Skin: No rashes. Neurologic: Alert, awake, oriented x3. No acute focal deficits appreciated. Investigations: Creatinine is 1.78, down from 1.96. His AST is 38, ALT is 17. Hemoglobin is 7.8, w more blood cell count is 171,000. Assessment And Plan: Supraventricular tachycardia. Rate is down, but it is very irregular, unlikely to be atrial fibrillation; however, it is a possibility. Repeat 12-lead EKG right now and the patie nt appears to be yellow. His bilirubin is elevated. Repeat liver function tests now. His liver enz ymes are elevated too. Stop the amiodarone and please hydrate with normal saline to get the blood pr essure at an acceptable level and may need to be placed on pressors to achieve that likely his heart responses due to the severe hypotension condition. I will follow the patient closely with you. Also , please obtain an echocardiogram. Thank you for the consultation. DARLIN Voice ID: [id number] Report ID: [id number]
[2020-03-02 16:52] LABS: Albumin 3.4 g/dL (3.4-5.0); Bilirubin Direct 0.5 mg/dL (0-0.2); Bilirubin Total 3.6 mg/dL (0.2-1.0); Protein, Total 5.7 g/dL (6.4-8.2)
[2020-03-02 17:37] LABS: Hematocrit 20.2 % (39.6-49.0)
[2020-03-02] MEDS ORDERED: DILTIAZEM HCL 60 MG TAB PO ONE (19:00)
[2020-03-02] MEDS ORDERED: NA CHLORIDE 0.9% 1,000 ML IV SCH (19:00)
[2020-03-02] MEDS ORDERED: NA CHLORIDE 0.9% 1,000 ML ONE (19:10)
--- NOTE | 2020-03-02 20:56 | PN ---
Date of Progress Note: 03/02/2020 Chief Complaint: Acute on chronic kidney injury. History Of Present Illness: The patient has chronic kidney disease stage 3. Baseline creatinine 1.6 . The patient developed acute on chronic kidney injury, creatinine level is up to 1.9 today. He has severe hypotension and arrhythmia. The patient was started on amiodarone, received IV bolus with no rmal saline to stabilize blood pressure. Systolic blood pressure is in 90s. The patient previously was found to have hyperkalemia, potassium of 5.2, and received blood transfusion for severe anemia. White count is severely elevated at 224,000. The patient is complaining of generalized weakness. De nies PND or orthopnea. Physical Examination: Lungs: Diminished breath sounds at bases. Heart: S1, S2. Abdomen: Soft, benign. Extremities: No edema. Laboratory Data: Hemoglobin 6.9, hematocrit 20.2, WBC 171.6, platelet count is 210,000. Chemistry s howed sodium 139, potassium 3.7, chloride 106, CO2 26, BUN 45, creatinine 1.78, calcium 8.4, glucose 201, total bilirubin 0.6. Renal ultrasound showed left kidney 11 cm in length, right kidney cortical thickness and echogenicity is normal. No hydronephrosis. No suspicious mass. Approximately 4.5 cm lower pole left renal cyst present matching with CT scan and small left renal cyst present and uncha nged. No hydronephrosis. No suspicious mass. Impression And Plan: Acute on chronic kidney injury, prerenal azotemia, nonoliguric acute tubular ne crosis. The patient has severe hypotension. The patient may need pressors for blood pressure suppor t. I ordered to start midodrine for blood pressure support and to continue IV fluids to prevent acut e kidney injury. The patient has multiple medical problems. Currently, he is not on blood pressure medication. He was found to have severe leukocytosis. He has history of malignant cyst. The patient at this point does not require dialysis. Blood pressure will be stabilized with midodrin e. The patient has chronic lymphocytic leukemia, received blood transfusion. Previously, the patien t was seen by [facility] ribbon inker. Monitor uric acid and phosphorus level and calcium level. At this point, calcium level is within nor mal limits. Monitor urine output and fluid balance. Renal ultrasound did not show obstructive uropathy. Avoid n ephrotoxic medication. The patient was found to have arrhythmia, started on amiodarone. Recommend t o monitor electrolytes including magnesium and phosphorus. EB/MODL Voice ID: [id number] Report ID: [id number]
[2020-03-02] MEDS ORDERED: ACETAMINOPHEN 500 MG TAB ONE (21:21)
[2020-03-02] MEDS ORDERED: MIDODRINE HCL 5 MG TABLET ONE (21:48)
[2020-03-03] MEDS ORDERED: NA CHLORIDE 0.9% 250 ML ONE (00:24)
[2020-03-03 04:54] LABS: Absolute Lymphocytes (CBC) 151.9 K/uL (0.7-4.9); Basophils % 0.2 % (0-1.3); Lymphocytes % 93.7 % (15.3-44.8); MPV 7.9 fL (7.6-11.3); RBC Red Blood Cell Count 1.97 M/uL (4.33-5.43)
[2020-03-03 04:59] LABS: Hematocrit 20.9 % (39.6-49.0)
[2020-03-03 05:09] LABS: Magnesium 2.6 mg/dL (1.8-2.4); Phosphorus 3.6 mg/dL (2.5-4.9); Uric Acid 11.3 mg/dL (3.5-7.2)
[2020-03-03 05:21] LABS: Anisocytosis 3+; Basophilic Stippling 1+; Blood Morphology Comment NOTED (NOT SEEN); Macrocytosis 1+; Platelet Estimate ADEQ; Polychromasia 2+
[2020-03-03] MEDS ORDERED: ASPIRIN EC 81 MG TAB PO ONE (08:42)
[2020-03-03] MEDS ORDERED: CLOPIDOGREL 75 MG TABLET ONE (08:43)
[2020-03-03] MEDS ORDERED: FOLIC ACID 1 MG TABLET ONE (08:48)
[2020-03-03] MEDS: MIDODRINE HCL 5 MG TABLET PO SCH ×3 (09:00→21:00)
[2020-03-03] MEDS: ROSUVASTATIN 10 MG TAB PO SCH (09:13)
[2020-03-03] MEDS: FE SULF/FA/VIT B COMP & C TAB PO SCH (09:13)
[2020-03-03] MEDS: NEBIVOLOL HCL 5 MG TAB PO SCH (09:13)
[2020-03-03] MEDS: FERROUS SULFATE 325 MG TAB PO SCH (09:14)
[2020-03-03] MEDS: DILTIAZEM HCL 120 MG SR CAP PO SCH (09:14)
[2020-03-03] MEDS: CLOPIDOGREL 75 MG TABLET PO SCH (09:15)
[2020-03-03] MEDS: FOLIC ACID 1 MG TABLET PO SCH (09:15)
[2020-03-03] MEDS: ASPIRIN EC 81 MG TAB PO SCH (09:15)
--- NOTE | 2020-03-03 09:15 | PN ---
Date of Progress Note: 03/03/2020 Mr. Marin was seen yesterday by Dr. Reese for paroxysmal atrial fibrillation and supraventricular tachycardia. He had received IV digoxin earlier. His amiodarone yesterday was initiated. He went b ack into sinus rhythm. It was stopped because of concern about liver function test. When he was____ amiodarone, he went back into atrial fibrillation. Liver function test came back normal. Ami odarone was restarted, is back in sinus rhythm today. However, the digoxin level came back to 5.1, w hich is very elevated. He is back on p.o. Cardizem. He was in sinus bradycardia after comfortable w ith him getting off the IV amiodarone right now. We will continue his Cardizem p.o. only and use IV metoprolol on an as-needed basis. No digoxin, no amiodarone. Continue to follow the digoxin level. Other issues are being handled by Dr. Looney and other consultants. I will continue to follow him as needed. VERA/MEGAN Voice ID: [id number] Report ID: [id number]
[2020-03-03 11:11] LABS: Digoxin Level 0.9 ng/mL (0.80-2.00)
--- NOTE | 2020-03-03 11:16 | RAD REPORT ---
EXAM DESCRIPTION: US - AAA Screening - 03/03/2020 10:43 am CLINICAL HISTORY: post AAA in 2019 COMPARISON: None. TECHNIQUE: Sonographic evaluation was performed of the abdominal aorta with evaluation of the retrop eritoneal space and peritoneal 4 quadrants. FINDINGS: Patient has a known large [place] abdominal aortic aneurysm previously treated with endovas cular stent graft. The large [place] aortic aneurysm is identified. Endovascular stent is in place. Stent is patent with normal blood flow. No luminal narrowing seen. There is no blood flow identifiable in the thrombosed portion of the [place] aorta. Along the proximal and inferior margins there is no sonographic findings for active bleeding. No proximal or distal origins stenosis identifiable. The periaortic soft tissue show no abnormal fluid collection or hematoma changes. IMPRESSION: Aortic endovascular stent graft evaluation shows no abnormal findings. No periaortic fluid, mass or hematoma changes.
[2020-03-03 12:40] LABS: Albumin 3.2 g/dL (3.4-5.0); Bilirubin Direct 0.5 mg/dL (0-0.2); Bilirubin Total 3.1 mg/dL (0.2-1.0); Protein, Total 5.3 g/dL (6.4-8.2)
--- NOTE | 2020-03-03 13:10 | PN ---
Date of Progress Note: 03/03/2020 The patient is still in the ICU. However, he looks much better this morning. His vital signs are st able. He has been off the drip for couple hours now and waiting blood for about a unit of transfusio n. Discussed possibly EGD with Gastroenterology. The ultrasound of the abdomen to evaluate the AAA site was negative. His bilirubin direct is up suggesting process have pathology look at t he smear and continues to be stable after the blood transfusion. We will reconnect with the [facility] son for transfer in regard to the CLL. HR/MODL Voice ID: [id number] Report ID: [id number]
[2020-03-03] MEDS ORDERED: predniSONE 20 MG TAB PO ONE (14:14)
[2020-03-03] MEDS ORDERED: predniSONE 20 MG TAB ONE (14:45)
[2020-03-03] MEDS ORDERED: POTASSIUM CL 40 MEQ in NA CHLORIDE 0.9% 500 ML IV SCH (16:00)
[2020-03-03] MEDS ORDERED: NA CHLORIDE 0.9% 1,000 ML IV SCH (16:00)
--- NOTE | 2020-03-03 16:18 | RAD REPORT ---
EXAM DESCRIPTION: Cat Single View03/03/2020 3:12 pm CLINICAL HISTORY: Hypertension/bladder cancer COMPARISON: February 28, 2020 FINDINGS: The lungs appear clear of acute infiltrate. The heart is mildly enlarged IMPRESSION: No acute abnormalities displayed
--- NOTE | 2020-03-03 16:28 | PN ---
Date of Progress Note: 03/03/2020 Subjective: The patient was admitted with acute kidney injury on chronic kidney disease secondary to prerenal, questionable to tumor lysis. Physical Examination: Vital Signs: Blood pressure 114/56, pulse of 56. The patient maintaining good urine output. Wet diaper. Chest: Clear to auscultation. Heart: S1, S2. Regular. Systolic murmur. Abdomen: Soft, nontender. Extremities: No edema. Neuro: Alert. No focality. Laboratory Data: H and H 6.9/20.9. Sodium 139, potassium 3.7, bicarb 26, BUN 45, creatinine 1.7, GFR 37, calcium 8.4, uric acid 11.3. Reviewing the record for the patient, the patient's baseline creatinine around 1.7 to 1.5 as by January 2020. Assessment And Plan: 1. Acute kidney injury on chronic kidney disease, looked to me tumor lysis syndrome/prerenal supported with elevation in the uric acid. I am going to increase IV fluid for the patient and we will continue to monitor the uric acid and the kidney function. We will send for UA to evaluate if we need to alkalize the urine and we will send for protein creatinine. 2. Hypertension, currently hypotension. Continue midodrine. 3. Hypokalemia. We will supplement cautiously given the presence of suspect tumor lysis syndrome. 4. Anemia secondary to CLL. We will send for LDH. We will follow up with transfusion. time spend discussing with the patient face to face , placing order , discusse with the patient and other team primary care physician including hospitalist 45 min. ROSANA Voice ID: [id number] Report ID: [id number] JUAN
[2020-03-03 20:15] LABS: Hematocrit 21.6 % (39.6-49.0)
--- NOTE | 2020-03-03 21:13 | PN ---
Date of Progress Note: 03/03/2020 Brief History Of Present Illness: Mr. Marin is a 75-year-old gentleman known to me from the [facility] where he has been followed for chronic lymphocytic leukemia (CLL). He was hospitalized late on 27 of February with complaints of severe weakness, fatigue, and hemoglobin of 4.7 g/dL. He has been followed through the clinic with CBCs done twice a week. Hemoglobin in clinic on the 26 of February was 6.9 g/dL, down from 8.6 g/dL on the 23 of February. He was set up for routine transfusion of 2 units of packed cells through day surgery the next day ( Monday the 27 February) however, because of presence of alloantibodies, blood could not be acquired on time and it was late Monday night or early Monday morning when he presented with the above symptoms and was hospitalized. He has received a total of 5 units of packed cells since his admission. Hemoglobin this morning was down to 6.9 g/dL from 7.8 g/dL yesterday and 8.7 g/dL the day before. A call from blood bank and our pathologist have revealed that he has warm antibodies, IgG and complement in addition to allo antibodies on a blood bank workup. 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 His was on speakerphone during this entire visit. Subjective: He says he feels terrible. Denies CP or SOB. Objective: Vital Signs: He has been afebrile. Temperature was 98.1 at 4 p.m., pulse was 57 per minute, respirations 18, blood pressure 127/61, saturating high 90s, 97-100%. HEENT: Reveals pallor and icterus today. There is no palpable adenopathy in the neck, axilla, or groin. Chest: Clear to auscultation. Heart: Normal S1, S2. No gallops or murmurs. No pedal edema was noted. Abd: No palpable HSM. Laboratory Data: Lab data from this morning reveals a white count of 162,000, hemoglobin 6.9, hematocrit 20.9 with a platelet count of 200,000. Chemistries reveal chronic kidney disease with a GFR of 37. Electrolytes were normal. Glucose was elevated at 201. Total bilirubin was 3.6 with a direct bilirubin of 0.5. A reticulocyte count done on the revealed a retic of 12.83%, which is up from 3.3% in early February. Assessment And Plan: 1. Anemia. 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 The elevated bilirubin and retic is indicative of ongoing hemolysis. The CLL and bone marrow infiltration from CLL are also a contributing factor to the anemia. We started him on prednisone 60 mg p.o. daily, first dose now. I spoke to him with on speaker phone today, I explained to them that the goal of steroid therapy is to prevent the development of warm autoantibodies and hemolysis and to stabilize his hemoglobin. Prednisone is generally continued until hemoglobin levels returned to normal or plateau, following which they are tapered slowly to off. This process can take 2-6 months and during this time if he fails to respond to steroids or has relapse upon tapering or is highly steroid dependent, then he would need additional therapy in the form of Rituxan to treat his hemolytic anemia. The patient and were made aware of side effects of prednisone including, but not limited to elevations of blood pressure and blood sugar, weight gain, muscle weakness, and long-term side effects such as cataracts and osteoporosis. I will also start him on some Protonix 40 mg daily if he is not already on it for prevention of gastric irritation. I would request that you continue with the prednisone and monitor his blood sugars and treat with an insulin sliding scale as needed. We also discussed that auto and alloantibodies makes the process of acquiring compatible units of blood difficult and prolonged.They have identified 4 units of frozen PRBCs for him which are on the way from [facility] and we should be able to transfuse him soon to keep hg >7gm/dl 2. Chronic lymphocytic leukemia. His disease is progressing and he is symptomatic from it. We had planned to start him on Imbruvica yesterday, this has been placed on hold until his hemoglobin stabilizes and acute cardiac issues (SVT) has resolved. They are interested in transferring to [facility] for further management of his CLL and anemia. I advised the that she should take his medications, specifically the Imbruvica, with her. 3. Alloantibodies. I had a long discussion with the patient and , and explained to them the process of typing and cross-matching to obtain compatible units for him. In the presence of multiple alloantibodies and autoantibody, the time to acquire compatible bloods can be in the order of days sometimes and that we are dependent on [facility] for our blood needs. I The goal is to transfuse him and stabilize his hemoglobin before he can be transported to [facility]. I will defer to Dr. Looney and the family regarding the optimal time of transfer. EVELYN/MEGAN Voice ID: [id number] Report ID: [id number] JUAN
[2020-03-04] MEDS ORDERED: NA CHLORIDE 0.9% 1,000 ML ONE (04:37)
[2020-03-04 05:37] LABS: Albumin 3.6 g/dL (3.4-5.0); Bilirubin Direct 0.5 mg/dL (0-0.2); Bilirubin Total 2.3 mg/dL (0.2-1.0); Magnesium 2.8 mg/dL (1.8-2.4); Phosphorus 3.3 mg/dL (2.5-4.9); Potassium 5.3 mmol/L (3.5-5.1); Uric Acid 10.1 mg/dL (3.5-7.2)
[2020-03-04 05:43] LABS: RBC Red Blood Cell Count 2.51 M/uL (4.33-5.43)
[2020-03-04 05:48] LABS: Absolute Lymphocytes (CBC) 194.7 K/uL (0.7-4.9); Basophils % 0.2 % (0-1.3); Hematocrit 26.3 % (39.6-49.0); Lymphocytes % 93.8 % (15.3-44.8); RBC Red Blood Cell Count 2.55 M/uL (4.33-5.43)
[2020-03-04 06:06] LABS: Urine Appearance CLOUDY; Urine Bilirubin NEGATIVE (NEG); Urine Blood 3+ (NEG); Urine Color YELLOW; Urine Glucose TRACE (NEG); Urine Microscopic Reflex ORDER UMIC; Urine Protein TRACE (NEG); Urine pH 5.5 (5.0-7.0)
[2020-03-04 06:07] LABS: Urine Protein/Creatinine Ratio 0.34 ratio (<0.15)
[2020-03-04 06:17] LABS: Urine Bacteria 20-50 /HPF (NONE SEEN)
[2020-03-04] MEDS ORDERED: PANTOPRAZOLE 40MG TABLET PO SCH (06:30)
--- NOTE | 2020-03-04 06:33 | EKG ---
Test Date: 2020-03-02 Test Time: 16:39:25 Technical Publications Manager: FANNY MEASUREMENT RESULTS: Intervals: Rate: 74 AL: 196 QRSD: 88 QT: 400 QTc: 444 [place]: P: 23 AL: 196 QRS: -18 T: -1 INTERPRETIVE STATEMENTS: Normal sinus rhythm Inferior infarct, age undetermined ST & T wave abnormality, consider anterior ischemia Abnormal ECG Compared to ECG 03/02/2020 10:32:54 Myocardial infarct finding now present Possible ischemia now present Supraventricular tachycardia no longer present ST (T wave) deviation still present Electronically Signed On 03-04-20 06:27:37 VETERINARY ANATOMIST by Samuel Colon
[2020-03-04] MEDS ORDERED: NA CHLORIDE 0.9% 250 ML ONE (06:37)
[2020-03-04] MEDS ORDERED: PANTOPRAZOLE 40MG TABLET PO ONE (06:37)
[2020-03-04 07:54] LABS: Anisocytosis 3+; Blood Morphology Comment NOTED (NOT SEEN); Platelet Estimate ADEQ
[2020-03-04] MEDS: FOLIC ACID 1 MG TABLET PO SCH (09:00)
[2020-03-04] MEDS ORDERED: predniSONE 20 MG TAB PO SCH (09:00)
[2020-03-04] MEDS ORDERED: ASPIRIN EC 81 MG TAB PO ONE (10:09)
[2020-03-04] MEDS ORDERED: CLOPIDOGREL 75 MG TABLET ONE (10:09)
[2020-03-04] MEDS: FE SULF/FA/VIT B COMP & C TAB PO SCH (10:09)
[2020-03-04] MEDS: ASPIRIN EC 81 MG TAB PO SCH (10:09)
[2020-03-04] MEDS ORDERED: predniSONE 20 MG TAB ONE (10:09)
[2020-03-04] MEDS: ROSUVASTATIN 10 MG TAB PO SCH (10:09)
[2020-03-04] MEDS: NEBIVOLOL HCL 5 MG TAB PO SCH (10:10)
[2020-03-04] MEDS: FERROUS SULFATE 325 MG TAB PO SCH (10:10)
[2020-03-04] MEDS: DILTIAZEM HCL 120 MG SR CAP PO SCH (10:11)
[2020-03-04] MEDS: CLOPIDOGREL 75 MG TABLET PO SCH (10:11)
[2020-03-04] MEDS ORDERED: NA CHLORIDE 0.9% 1,000 ML IV ONE (10:20)
[2020-03-04] MEDS ORDERED: NA CHLORIDE 0.9% 1,000 ML IV SCH (10:20)
[2020-03-04 11:45] VITALS: BP 142/67; TEMP 97
[2020-03-04 11:48] VITALS: O2SAT 100
--- NOTE | 2020-03-04 22:17 | PN ---
Date of Progress Note: 03/04/2020 Subjective: The patient was admitted with symptomatic anemia, leukocytosis and CLL with acute kidney injury secondary to tumor lysis. The patient was started on hydration. The patient received transfusion yesterday. Objective: Vital Signs: When I saw the patient, blood pressure of 142/67, pulse of 68. Chest: Clear to auscultation. Heart: S1, S2. Systolic murmur. Abdomen: Soft, nontender. Extremities: No edema. Neurologic: Alert. No focal. Laboratory Data: H and H 8.5/26.3. Sodium 144, potassium 5.3, bicarb 24, BUN 39, creatinine 1.53, uric acid 10.1, calcium 8.4, cortisol 21. Current Medications: The patient on include, 1. Diltiazem. 2. Plavix. 3. Aspirin. 4. Amiodarone. 5. Atorvastatin. 6. Pantoprazole. Assessment And Plan: 1. 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 I am going to continue hydration. Increase IV fluid to 75 per hour. We will monitor the patient. Kidney function started being improving. I do not see any need for renal replacement therapy. We will monitor. 2. Hypertension, controlled, optimal. Continue current medication. 3. Anemia secondary to chronic lymphocytic leukemia and hemolysis. We will follow up with the Oncology. The patient planned for transfer. time spend discussing with the patient face to face , placing order , discusse with the patient and other logistics team leader including hospitalist 45 min. ROSANA Voice ID: [id number] Report ID: [id number] JUAN
--- NOTE | 2020-03-06 19:58 | PN ---
Date of Progress Note: 03/04/2020 Mr. Marin has been followed by me for paroxysmal atrial fibrillation, supraventricular tachycardia. Amiodarone was started and stopped because he went into sinus rhythm. He has received digoxin. Hi s level was 5.1. He is back on p.o. Cardizem. I recommended no digoxin and no amiodarone. On 03/04, he remained in sinus rhythm with a heart rate of 62, his blood pressure was 150/73, O2 saturat ion was 98% on nasal cannula. His last creatinine was 1.55. Last hemoglobin is 8.5. His last magne sium was 2.8. His potassium is 5.3. He is presently on aspirin, Plavix, Cardizem CD 240 mg, midodri ne p.r.n., Crestor, and prednisone. I would continue his present regimen. I will sign off his case for now. I will be available for questions if the need arises. VERA/MEGAN Voice ID: [id number] Report ID: [id number]
--- NOTE | 2020-03-06 20:43 | CON ---
Date of Consultation: 03/04/2020 Reason For Consultation: Anemia, hemoglobin of 6.9. History Of Present Illness: This patient is a 75-year-old white male with history of CLL, bladder cancer, hypertension, anemia. Patient presented to the hospital with anemia. The patient denied any type of GI bleeding. No melena, hematochezia, hematemesis, coffee-ground emesis, hematuria, bleeding or other bleeding. Has seen no blood. In fact guaiacs have been negative x2 so far in the hospital. and family also denied any bleeding. The patient in fact states now he has had no stools in 2 days. He does have CLL and he recently had a AAA repair with a stent placement. Past Medical History: Significant for CLL, hypertension, SVT, stroke, AAA repair, bladder cancer with chemo 4 months ago, history of stroke, atrial fibrillation, right cataract surgery, bladder resection x2, laminectomy, stent placed due to aneurysm and surgery to left leg due to blood clot. Medications: Include aspirin, Plavix, diltiazem, Bystolic, Crestor, Tylenol, vitamin B12, folic acid, melatonin, vitamin B1 which is thiamin, ferrous sulfate, and Hemocyte Plus. Allergies: PSEUDOEPHEDRINE AND CIPROFLOXACIN. Family History: Father had cancer. Social History: Former smoker. No alcohol. No drugs. Yes to caffeine. Review of Systems: The patient has weakness but denies any melena, hematochezia, hematemesis, coffee-ground emesis, hematuria, dysuria, polydipsia, chest pain, short of breath, seizure, syncope, lower extremity edema, muscle aches, joint aches, backaches. No depression or anxiety sighted. Physical Examination: Vital Signs: He is 5 feet 10 inches, 173 pounds, BMI 24.8 kg/m2. He had a temperature 98.4 degrees Fahrenheit, pulse 66, respirations 22, blood pressure 143/68, O2 saturation 100%. HEENT: Normocephalic, atraumatic. Anicteric. Pupils equal, round, and reactive to light. Extraocular movements are intact. Oropharynx clear. Neck: Supple. No masses. Respirations: Clear to auscultation bilaterally. Cardiac: Regular rate and rhythm. No gallops or rubs. Abdomen: Positive bowel sounds. Soft, nontender, nondistended. No hepatosplenomegaly. Extremities: No clubbing, cyanosis, or edema. 2+ pulses. Neurologic: Alert and oriented x3. Grossly nonfocal. 5/5 motor sensation intact to light touch. Laboratory Data: The patient has a white count of 207, hemoglobin of 8.5, up from 6.9, yesterday his low was 4.7 on the 22, PT of 15.2, INR of 1.3. The patient has a sodium of 144, potassium 5.3, chloride 115, bicarb 24, BUN 39, creatinine of 1.6, glucose 220. Uric acid 10.1, elevated calcium at 8.4, phosphorus at 3.3, magnesium 3.8, total bilirubin of 3.3, direct bilirubin 0.5, AST 32, ALT of 18, alkaline phosphatase 89, lipase 563, total protein 5.3, albumin 3.2, globulin 3.1, cortisol 21.38, B12 758, folate greater than 20. B- natriuretic peptide of 2357. Troponin I less than 0.02. Prealbumin of 20.1. UA today revealed trace glucose, 3+ blood, 10 to 20 rbc's, 20 to 50 bacteria, less than 5 squamous epithelial cells, hematuria. Comparison, February 01, 2020, month ago, he had no blood in his urine. COVID testing was negative. Modified barium swallow, reduced laryngeal elevation, laryngeal penetration clear with thin aspiration, no cough with thin liquids. Aortic endovascular stent graft shows no abnormal findings. Impression: 1. Anemia. Hemoglobin is low at 4.7, now up to 6.9 and 8.5, could be due to hematologic disorder, GI bleeding, bleeding and urinary with 3+ blood noted on urinalysis with 10 to 20 rbc's and 20 to 50 bacteria. The patient had blood seen by him or family or . Guaiacs were all negative. Of note, and family refused further interventions at this time stating they would await to be transferred to [facility]. The patient has had no stools in 2 days either. 2. Supraventricular tachycardia noted on this admission. He is on aspirin and Plavix. 3. History of chronic lymphocytic leukemia with a white count up to 207 with anemia, could be secondary to hematologic disorder or the bleeding from the urine which is noted on the urinalysis or less likely GI since hemoglobin 4.7 should be concomitant with some type of visual bleeding if there is GI bleeding present like melena or hematochezia or some other GI source would be manifested. The hemoglobin was down to 4.7. Recommendation: 1. Continue PPI therapy. 2. Await family and patient agreement for endoscopy as indicated. 3. Serial H and H and transfuse p.r.n. Consider consultation to Genitourinary Service like Urology and also consultation for Hematology in this case. It appears Hematology is already following this patient. JOHN Voice ID: [id number] Report ID: [id number] MTDD
--- NOTE | 2020-03-09 14:32 | PN ---
Date of Progress Note: 03/02/2020 The patient had significant episodes of SVT this morning, and 1 episode of probable atrial fibrillati on, became hypotensive. His pulse rate was in the 150s and he was given his calcium channel jerry orally and then did IV beta-jerry with IV because of marked hypotension. Justo ndelenburg position which improved it somewhat and amiodarone drip was instituted when patient was tr ansferred to ICU. He was also bolused in ICU. He reversed to sinus rhythm. Blood pressure came up a fter a few hours of the aforementioned treatment. However, in the evening, he once again developed S VT and another dose of a calcium channel jerry was given. He was restarted on amiodarone, which on ce again reversed him to actually a sinus bradycardia. His blood pressure was stabilized. Discussio n was held with [facility] as far as transferring at the family's request for the CLL and continuous necessity for blood transfusions. I discussed his status with the ICU physician contact finger assembler at [facility] and once he was stabilized, they would reconsider his transfer due to his present vital signs. We will continue to monitor him and keep him in ICU overnight. His blood counts seem stable at 6.0; ho wever due to his difficulty with obtaining blood due to the antibody situation, we will type and cros s him for some more units and if stable, we will give 1 when available. HR/MODL Voice ID: [id number] Report ID: [id number]
== END 2020-03-04 11:40 | disposition short-term general hospital (02) | DRG 840 ==
LOC: ER 22:13 → ERHOLD 02-29 00:07 → 2ND 02-29 02:11 → OBSVTOIN 03-01 13:36 → ERHOLD 03-02 13:51
PROVIDERS: ADMIT Internal Medicine; ATTEND Family Medicine
PROC: 30233N1 Transfusion of Nonautologous Red Blood Cells into Peripheral Vein, Percutaneous Approach (ICD-10-PCS; principal; 2020-03-01)
DX: C91.10 Chronic lymphocytic leukemia of B-cell type not having achieved remission (principal); N17.0 Acute kidney failure with tubular necrosis; E88.3 Tumor lysis syndrome; I47.1 Supraventricular tachycardia; D58.9 Hereditary hemolytic anemia, unspecified; D63.0 Anemia in neoplastic disease; D53.9 Nutritional anemia, unspecified; D51.0 Vitamin B12 deficiency anemia due to intrinsic factor deficiency; E87.6 Hypokalemia; I48.0 Paroxysmal atrial fibrillation; I12.9 Hypertensive chronic kidney disease with stage 1 through stage 4 chronic kidney disease, or unspecified chronic kidney disease; N18.30 Chronic kidney disease, stage 3 unspecified; E87.5 Hyperkalemia; Z88.1 Allergy status to other antibiotic agents; Z88.8 Allergy status to other drugs, medicaments and biological substances; Z86.73 Personal history of transient ischemic attack (TIA), and cerebral infarction without residual deficits; Z85.51 Personal history of malignant neoplasm of bladder; Z79.82 Long term (current) use of aspirin; Z87.891 Personal history of nicotine dependence; Z79.02 Long term (current) use of antithrombotics/antiplatelets; Z79.899 Other long term (current) drug therapy; Z20.822 Contact with and (suspected) exposure to COVID-19
CPT/HCPCS: 36415; 36430; 70450; 71045; 76706; 76770; 80048; 80069; 80076; 80162; 81003; 81015; 82247; 82248; 82533; 82550; 82570; 82607; 82746; 83615; 83690; 83735; 83880; 84100; 84156; 84450; 84460; 84484; 84550; 85014; 85018; 85025; 85044; 85610; 86850; 86870; 86900; 86901; 86922; 87086; 87088; 93005; 96372; 96374; 97161; 97530; 99285; G0378; J0282; J1160; J1940; J2405; J2930; J3480; J7030; J7040; J7050; J7060; J7512; Q5105; U0003

== ENCOUNTER → 2020-02-28 | Day surgery (SDC) | payer OTHER, MEDICARE ==
--- OUTSIDE RECORDS SUMMARY | 2020-02-28 08:04 | XMS REPORT | Clinical Summary ---
:1945 Author Organization [facility] Address [address] [place] [address] Care Team Providers Name Role Phone MD [...] Due Date Last Done Comments COVID-19 VACCINE (1 of 2) 1961 COLONOSCOPY SCREENING 1995 SHINGLES VACCINES (#1) 1995 65+ PNEUMOCOCCAL VACCINE (1 of 1 - PPSV23) 2010 INFLUENZA VACCINE 09/07/2019 Results Not on fileafter 02/27/2019 Insurance Payer Benefit Plan / Subscriber ID Effective Dates Phone Addre ss Type Group AETNA AETNA PPO OPEN [id number] 2000-Present PPO CHOICE MEDICARE MEDICARE PART A [id number] 2009-Present [facility] [place] [place] Medicare AND B Advance Directives For more information, please contact: [phone] Type Date Recorded 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
--- OUTSIDE RECORDS SUMMARY | 2020-02-28 08:06 | XMS REPORT | Clinical Summary ---
:1945 Author Organization [facility] Address [address] [place] [address] Care Team Providers Name Role Phone MD [...] Act naye (CRESTOR) 10 MG mouth At tablet bedtime . aspirin 81 MG EC Take 1 tablet 360 tablet 0 12/20/2019 0 Active tablet (81 mg total) 21 by mouth daily. traMADoL (Ultram) Take 1 tablet 20 tablet 0 2020 0 Active 50 mg tablet (50 mg total) 21 by mouth every 6 (six) hours as needed for Pain. Max Daily Amount: 200 mg nebivolol Take 10 mg by 0 12/19/19 Discon tinued (BYSTOLIC) 10 MG mouth daily 20 ( Stop Taking at tablet Taken in AM. Dischar ge) dilTIAZem Take 240 mg by 0 12/19/19 Disco ntinued (CARDIZEM CD) 240 mouth daily. 20 (Stop Taking at MG 24 hr capsule Dis charge) clopidogrel Take 75 mg by 0 12/19/19 Disc ontinued (PLAVIX) 75 mg mouth daily. 20 (S top Taking at tablet Discharge) aspirin 81 MG EC Take 81 mg by 0 12/19/19 Discontinued tablet mouth daily. 20 (Stop T aking at Discharge) VALSARTAN ORAL Take 160 mg by 0 12/19/19 Discontinued mouth daily . 20 (Stop Taking at Discharge) nebivolol Take 5 mg by 0 12/19/19 Discont inued (BYSTOLIC) 5 MG mouth nightly. 20 (Stop Taking at tablet Discharge) chlorhexidine Apply 1 Bottle 1 Bottle 0 12/06/2019 12/06/19 gluconate 2 % topically once 20 LiqdIndications: for 1 dose. Aneurysm of infrarenal abdominal aorta (HCC) valsartan-hydrochl Take 1 tablet 0 11/18/2019 Discontinued orothiazide by mouth 20 (Stop Ta leonor at (DIOVAN-HCT) daily. Dischar ge) 160-12.5 mg per tablet aspirin 81 MG EC Take 1 tablet 360 tablet 0 12/20/2019 0 Discontinued tablet (81 mg total) 20 by mouth daily. dilTIAZem Take 1 tablet 120 tablet 1 12/19/2019 12/19/19 Disc ontinued (CARDIZEM) 60 MG (60 mg total) 20 tablet by mouth every 6 (six) hours for 60 days. nebivoloL Take 1 tablet 30 tablet 1 12/20/2019 12/19/19 Disco ntinued (BYSTOLIC) 10 MG (10 mg total) 20 tablet by mouth daily for 60 days. clopidogreL Take 1 tablet 30 tablet 1 12/19/2019 12/19/19 Dis continued (PLAVIX) 75 mg (75 mg total) 20 tablet by mouth daily for 60 days. clopidogreL Take 1 tablet 30 tablet 1 12/19/2019 02/16/19 Exp ired (PLAVIX) 75 mg (75 mg total) 21 tablet by mouth daily for 60 days. dilTIAZem Take 1 tablet 120 tablet 1 12/19/2019 02/16/19 Expi red (CARDIZEM) 60 MG (60 mg total) 21 tablet by mouth every 6 (six) hours for 60 days. Additional Information Patient taking differently: 240 mg Oral Daily, Reason: Other, Reported on 01/03/2020 10:13 AM nebivoloL (BYSTOLIC) 10 Take 1 tablet (10 30 tablet 1 12/20/19 20 02/18/2020 MG tablet mg total) by mouth daily for 60 days. Hospital, [...] aneurysm ( HCC) 01/03/2020 Office Visit Cardiology Pallister, Pre-op testing Diana Morris (Primary Dx) Adelfo [...] (HCC) (Primary Dx); Pre-op testing Adelfo Bergeron, RN Delano Payne MD 12/11/2019 Hospital Encounter Cardiology Payne, Casey Aneurysm of Gee, CLINICAL DIETITIAN infrarenal abdominal aorta (HCC) 12/11/2019 Orders Only General Internal Medicine 12/11/2019 Travel 11/27/2019 Orders Only Cardiology Payne, Casey Aneurysm of Gee, CLINICAL DIETITIAN infrarenal abdominal aorta (HCC) (Primary Dx) 11/21/2019 Hospital Encounter Respiratory Therapy Payne, Casey An eurysm of infrarenal abdominal aorta (HCC); Gee, CLINICAL DIETITIAN Tobacco use 11/14/2019 Orders Only Cardiology Payne, Casey Aneurysm of Gee, CLINICAL DIETITIAN infrarenal abdominal aorta (HCC) (Primary Dx) 11/13/2019 Orders Only Cardiology Payne, Casey Tobacco use (Pr imary Dx); Gee, CLINICAL DIETITIAN Aneurysm of inf rarenal abdominal aorta (HCC) 11/05/2019 Office Visit Cardiology Delano Payne Ascending ao rtic aneurysm (HCC) (Primary Dx); MD Kenny Aneurysm of infrarenal abdominal aorta ( HCC); Payne, Casey Tobacco use Gee, CLINICAL DIETITIAN 11/05/2019 Hospital Encounter Computed Tomography Payne, Casey Ab dominal aortic aneurysm (AAA) without rupture (HCC); Gee, CLINICAL DIETITIAN Ascending aortic aneurysm (HCC); [facility] Room 11/05/2019 Hospital Encounter Computed Tomography Payne, Casey Ab dominal aortic aneurysm without rupture (HCC); Gee, CLINICAL DIETITIAN Abdominal aortic aneurysm (AAA) without rupture (HCC) [facility] 10/18/2019 Orders Only Cardiology Delano Payne Abdominal ao rtic aneurysm (AAA) without rupture (HCC) (Primary Dx); MD Kenny Abdominal aort ic aneurysm without rupture (HCC) 10/18/2019 Orders Only Cardiology Delano Payne Abdominal ao rtic aneurysm (AAA) without rupture (HCC) (Primary Dx); MD Kenny Ascending aort ic aneurysm (HCC); Aortic valve di sease after 02/27/2019 Family History Medical History Relation Name Comments [...] Comments Blood Pressure 140/66 2020 2:00 PM NETWORK [facility] Pulse 58 2020 2:00 PM NETWORK [facility] Temperature 48 C (118.4 F) 2020 11:52 AM NETWORK MGR Respiratory Rate 18 2020 2:00 PM NETWORK MGR Oxygen Saturation 98% 2020 1:00 PM NETWORK MGR Inhaled Oxygen Concentration 21% 12/18/2019 7:44 PM NETWORK MGR Weight 85.3 kg (188 lb) 2020 8:39 AM NETWORK [facility] Height 180.3 cm (5' 10.98") 2020 8:39 AM NETWORK MGR Body Mass Index 26.23 2020 8:39 AM NETWORK MGR Plan of Treatment Health Maintenance Due Date Last Done Comments COLON CANCER SCREENING COLONOSCOPY 1945 PNEUMOCOCCAL 65+ YRS (1 of 1 - [id number]) 2010 MEDICARE ANNUAL WELLNESS (YEAR 2 or FIRST YEAR if no 12/08/2010 IPPE) INFLUENZA VACCINE (#1) 2019 DEPRESSION SCREENING (12+) 02/07/2020 Implants Implanted Type Area Instructional Facilitator Device Identifier Shelf Model / Expiration Serial / Date Lot Stent Grft Excluder C3 31x14.5 [id number] - [id number] IMPLANTS N /A: LEANDRO SEBASTIAN & [id number] 10/15/2022 [id number] / Implanted: Qty: 1 on 12/13/2019 by Delano Barrett MD at [facility] Aorta ASSC[facility]MED [facility] [id number] / Description:ABDOMINAL AORTA- RIGHT ILIAC Grft Leg Excluder 34oth01pp [id number] - [id number] IMPLANTS L eft: LEANDRO SEBASTIAN & [id number] 06/23/2022 [id number] / Implanted: Qty: 1 on 12/13/2019 by Delano Barrett MD at [facility] Iliac ASSC:MED PRDT [id number] / Description:LEFT COMMON ILIAC. Stent Grft Excluder 26sd22al [id number] - [id number] IMPLANTS R ight: LEANDRO GORE & [id number] 01/04/2023 [id number] / Implanted: Qty: 1 on 12/13/2019 by Delano Barrett MD at [facility] Iliac ASSC:MED [id number] / PRDT Description:RIGHT COMMON ILIAC Patch Periph Vascu-Grd 0.8x8cm [id number] - [id number] IMPLAN TS Left: SYNOVIS [id number] 07/16/2024 [id number] / Implanted: Qty: 1 on 12/13/2019 by Colton Gupta MD at [facility] Arterial LIFE [id number] / TECH:SURG [id number] INNOV Description:Site: LEFT LOWER EXTREMITY Angio Seal Left: Arterial TERUMO VASCUTEK 09/06/19 21 [id number] / Implanted: Qty: 1 on 12/13/2019 by Colton Gupta MD at [facility] / [id number] Angio-Seal Vip Left: Arm Upper TERUMO MEDICAL MIGUEL. 10/06/2020 [id number] / Implanted: Qty: 1 on 2020 by Colton Gupta MD at [facility] / [id number] Procedures Procedure Name Priority Date/Time Associated Diagnosis Comme nts POCT-ACT Routine 2020 11:24 AM Results for this NETWORK MGR procedure are i n the results section. ECG 12-LEAD Routine 2020 10:50 AM Results for this NETWORK MGR procedure are i n the results section. 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 SARS-COV2/RT-PCR Routine 01/03/2020 10:25 AM Pre-op testing Re sults for this ([facility] & REF LABS) NETWORK MGR procedure are in the results section . POCT-GLUCOSE METER Routine 12/19/2019 7:18 AM Re sults for this NETWORK MGR procedure are i n the results section . CBC (HEMOGRAM ONLY) Routine 12/19/2019 4:49 AM R esults for this NETWORK MGR procedure are i n the results section . PHOSPHORUS Routine 12/19/2019 4:49 AM Results for this NETWORK MGR procedure are i n the results section . MAGNESIUM Routine 12/19/2019 4:49 AM Results for this NETWORK MGR procedure are i n the results section . BASIC METABOLIC PANEL Routine 12/19/2019 4:49 AM Results for this (7) NETWORK MGR procedure are i n the results section . POCT-GLUCOSE METER Routine 12/18/2019 9:00 PM Re sults for this NETWORK MGR procedure are i n the results section . POCT-GLUCOSE METER Routine 12/18/2019 4:56 PM Re sults for this NETWORK MGR procedure are i n the results section . POCT-GLUCOSE METER Routine 12/18/2019 11:16 AM Re sults for this NETWORK MGR procedure are i n the results section . ECG 12-LEAD Routine 12/18/2019 8:29 AM Results for this NETWORK MGR procedure are i n the results section . 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 rate has increased BY [address] now depressed in Inferior leads ST now depressed in Anterola teral leads Nonspecific T wave abnormali ty now evident in Inferior leads T wave inversion now evident in Anterolateral leads POCT-GLUCOSE METER Routine 12/18/2019 7:37 AM Re sults for this NETWORK MGR procedure are i n the results section. SARS-COV2/RT-PCR ([facility] Routine 12/18/2019 5:39 AM Results for this & REF LABS) NETWORK MGR procedure are i n the results section. CBC (HEMOGRAM ONLY) Routine 12/18/2019 5:24 AM R esults for this NETWORK MGR procedure are i n the results section. PHOSPHORUS Routine 12/18/2019 5:24 AM Results for this NETWORK MGR procedure are i n the results section. MAGNESIUM Routine 12/18/2019 5:24 AM Results for this NETWORK MGR procedure are i n the results section. BASIC METABOLIC PANEL Routine 12/18/2019 5:24 AM Results for this (7) NETWORK MGR procedure are i n the results section. POCT-GLUCOSE METER Routine 12/17/2019 9:25 PM Re sults for this NETWORK MGR procedure are i n the results section. POCT-GLUCOSE METER Routine 12/17/2019 4:03 PM Re sults for this NETWORK MGR procedure are i n the results section. POCT-GLUCOSE METER Routine 12/17/2019 11:59 AM Re sults for this NETWORK MGR procedure are i n the results section. POCT-GLUCOSE METER Routine 12/17/2019 7:49 AM Re sults for this NETWORK MGR procedure are i n the results section. CBC (HEMOGRAM ONLY) Routine 12/17/2019 5:11 AM R esults for this NETWORK MGR procedure are i n the results section. PHOSPHORUS Routine 12/17/2019 5:11 AM Results for this NETWORK MGR procedure are i n the results section. MAGNESIUM Routine 12/17/2019 5:11 AM Results for this NETWORK MGR procedure are i n the results section. BASIC METABOLIC PANEL Routine 12/17/2019 5:11 AM Results for this (7) NETWORK MGR procedure are i n the results section. POCT-GLUCOSE METER Routine 12/16/2019 9:16 PM Re sults for this NETWORK MGR procedure are i n the results section. POCT-GLUCOSE METER Routine 12/16/2019 4:18 PM Re sults for this NETWORK MGR procedure are i n the results section. POCT-GLUCOSE METER Routine 12/16/2019 12:02 PM Re sults for this NETWORK MGR procedure are i n the results section. POCT-GLUCOSE METER Routine 12/16/2019 7:39 AM Re sults for this NETWORK MGR procedure are i n the results section. CBC (HEMOGRAM ONLY) Routine 12/16/2019 5:13 AM R esults for this NETWORK MGR procedure are i n the results section. APTT Routine 12/16/2019 5:13 AM Results for this NETWORK MGR procedure are i n the results section. PHOSPHORUS Routine 12/16/2019 5:13 AM Results for this NETWORK MGR procedure are i n the results section. MAGNESIUM Routine 12/16/2019 5:13 AM Results for this NETWORK MGR procedure are i n the results section. BASIC METABOLIC PANEL Routine 12/16/2019 5:13 AM Results for this (7) NETWORK MGR procedure are i n the results section. POCT-GLUCOSE METER Routine 12/15/2019 9:20 PM Re sults for this NETWORK MGR procedure are i n the results section. APTT Routine 12/15/2019 4:14 AM Results for this NETWORK MGR procedure are i n the results section. PHOSPHORUS STAT 12/15/2019 4:10 AM Results for this NETWORK MGR procedure are i n the results section. MAGNESIUM STAT 12/15/2019 4:10 AM Results for this NETWORK MGR procedure are i n the results section. BASIC METABOLIC PANEL STAT 12/15/2019 4:10 AM Results for this (7) NETWORK MGR procedure are i n the results section. CBC (HEMOGRAM ONLY) Routine 12/15/2019 4:09 AM R esults for this NETWORK MGR procedure are i n the results section. PREPARE RBC STAT 12/14/2019 11:54 PM Results for this NETWORK MGR procedure are i n the results section. POCT-GLUCOSE METER Routine 12/14/2019 10:34 PM Re sults for this NETWORK MGR procedure are i n the results section. APTT Routine 12/14/2019 9:01 PM Results for this NETWORK MGR procedure are i n the results section. POCT-GLUCOSE METER Routine 12/14/2019 6:05 PM Re sults for this NETWORK MGR procedure are i n the results section. APTT Routine 12/14/2019 2:42 PM Results for this NETWORK MGR procedure are i n the results section. MAGNESIUM STAT 12/14/2019 1:58 PM Results for this NETWORK MGR procedure are i n the results section. BASIC METABOLIC PANEL STAT 12/14/2019 1:58 PM Results for this (7) NETWORK MGR procedure are i n the results section. POCT-GLUCOSE METER Routine 12/14/2019 1:47 PM Re sults for this NETWORK MGR procedure are i n the results section. POCT-GLUCOSE METER Routine 12/14/2019 9:00 AM Re sults for this NETWORK MGR procedure are i n the results section. APTT Routine 12/14/2019 7:52 AM Results for this NETWORK MGR procedure are i n the results section. XR CHEST 1 VIEW STAT 12/14/2019 7:50 AM Resul ts for this PORTABLE/BEDSIDE NETWORK MGR procedure a re in the results section. APTT Routine 12/14/2019 5:07 AM Results for this NETWORK MGR procedure are i n the results section. BLOOD GAS, ARTERIAL Routine 12/14/2019 5:07 AM R esults for this NETWORK MGR procedure are i n the results section. PHOSPHORUS STAT 12/14/2019 3:28 AM Results for this NETWORK MGR procedure are i n the results section. MAGNESIUM STAT 12/14/2019 3:28 AM Results for this NETWORK MGR procedure are i n the results section. BASIC METABOLIC PANEL STAT 12/14/2019 3:28 AM Results for this (7) NETWORK MGR procedure are i n the results section. CBC (HEMOGRAM ONLY) Routine 12/14/2019 3:28 AM R esults for this NETWORK MGR procedure are i n the results section. POCT-GLUCOSE METER Routine 12/13/2019 11:24 PM Re sults for this NETWORK MGR procedure are i n the results section. XR CHEST 1 VIEW STAT 12/13/2019 11:20 PM Resul ts for this PORTABLE/BEDSIDE NETWORK MGR procedure a re in the results section. CALCIUM, IONIZED Routine 12/13/2019 11:12 PM Resu lts for this NETWORK MGR procedure are i n the results section. BLOOD GAS, ARTERIAL Routine 12/13/2019 11:12 PM R esults for this NETWORK MGR procedure are i n the results section. MAGNESIUM Routine 12/13/2019 11:10 PM Results for this NETWORK MGR procedure are i n the results section. PHOSPHORUS Routine 12/13/2019 11:10 PM Results for this NETWORK MGR procedure are i n the results section. PROTHROMBIN TIME/INR Routine 12/13/2019 11:10 PM Results for this NETWORK MGR procedure are i n the results section. APTT Routine 12/13/2019 11:10 PM Results for this NETWORK MGR procedure are i n the results section. BASIC METABOLIC PANEL Routine 12/13/2019 11:10 PM Results for this (7) NETWORK MGR procedure are i n the results section. CBC (HEMOGRAM ONLY) Routine 12/13/2019 11:10 PM R esults for this NETWORK MGR procedure are i n the results section. POCT-ACT Routine 12/13/2019 9:38 PM Results for this NETWORK MGR procedure are i n the results section. POCT-ACT Routine 12/13/2019 8:51 PM Results for this NETWORK MGR procedure are i n the results section. HGB/HCT (H&H) - STAT STAT 12/13/2019 8:48 PM Results for this LAB NETWORK MGR procedure are i n the results section. GLUCOSE-STAT LAB STAT 12/13/2019 8:48 PM Resu lts for this NETWORK MGR procedure are i n the results section. POTASSIUM-STAT LAB STAT 12/13/2019 8:48 PM Re sults for this NETWORK MGR procedure are i n the results section. SODIUM NA-STAT LAB STAT 12/13/2019 8:48 PM Re sults for this NETWORK MGR procedure are i n the results section. BLOOD GAS, ARTERIAL STAT 12/13/2019 8:48 PM R esults for this NETWORK MGR procedure are i n the results section. CALCIUM, IONIZED STAT 12/13/2019 8:48 PM Resu lts for this NETWORK MGR procedure are i n the results section. BLOOD GAS, ARTERIAL STAT 12/13/2019 8:48 PM R esults for this NETWORK MGR procedure are i n the results section. POCT-ACT Routine 12/13/2019 8:17 PM Results for this NETWORK MGR procedure are i n the results section. TRANSFUSE Routine 12/13/2019 7:48 PM LEUKO-REDUCED RED NETWORK MGR BLOOD CELLS TRANSFUSE Routine 12/13/2019 7:46 PM LEUKO-REDUCED RED NETWORK MGR BLOOD CELLS POCT-ACT Routine 12/13/2019 7:37 PM Results for this NETWORK MGR procedure are i n the results section. HGB/HCT (H&H) - STAT STAT 12/13/2019 7:31 PM Results for this LAB NETWORK MGR procedure are i n the results section. GLUCOSE-STAT LAB STAT 12/13/2019 7:31 PM Resu lts for this NETWORK MGR procedure are i n the results section. POTASSIUM-STAT LAB STAT 12/13/2019 7:31 PM Re sults for this NETWORK MGR procedure are i n the results section. SODIUM NA-STAT LAB STAT 12/13/2019 7:31 PM Re sults for this NETWORK MGR procedure are i n the results section. BLOOD GAS, ARTERIAL STAT 12/13/2019 7:31 PM R esults for this NETWORK MGR procedure are i n the results section. CALCIUM, IONIZED STAT 12/13/2019 7:31 PM Resu lts for this NETWORK MGR procedure are i n the results section. BLOOD GAS, ARTERIAL STAT 12/13/2019 7:31 PM R esults for this NETWORK MGR procedure are i n the results section. POCT-ACT Routine 12/13/2019 6:54 PM Results for this NETWORK MGR procedure are i n the results section. HGB/HCT (H&H) - STAT STAT 12/13/2019 6:18 PM Results for this LAB NETWORK MGR procedure are i n the results section. GLUCOSE-STAT LAB STAT 12/13/2019 6:18 PM Resu lts for this NETWORK MGR procedure are i n the results section. POTASSIUM-STAT LAB STAT 12/13/2019 6:18 PM Re sults for this NETWORK MGR procedure are i n the results section. SODIUM NA-STAT LAB STAT 12/13/2019 6:18 PM Re sults for this NETWORK MGR procedure are i n the results section. BLOOD GAS, ARTERIAL STAT 12/13/2019 6:18 PM R esults for this NETWORK MGR procedure are i n the results section. LACTIC ACID, ARTERIAL STAT 12/13/2019 6:18 PM Results for this NETWORK MGR procedure are i n the results section. CALCIUM, IONIZED STAT 12/13/2019 6:18 PM Resu lts for this NETWORK MGR procedure are i n the results section. BLOOD GAS, ARTERIAL STAT 12/13/2019 6:18 PM R esults for this NETWORK MGR procedure are i n the results section. THROMBECTOMY-LOWER 12/13/2019 5:10 PM Ischemia NETWORK MGR ANGIOGRAM-LOWER 12/13/2019 5:10 PM Ischemia EXTREMITY NETWORK MGR HC ARTERIAL(RAFIQ W Routine 12/13/2019 12:51 PM Res ults for this DOPPLER)ONLY NETWORK MGR procedure are i n the results section. HC ARTERIAL DOPPLER STAT 12/13/2019 12:51 PM R esults for this LEGS WINTER NETWORK MGR procedure are i n the results section. URINALYSIS W/ REFLEX Routine 12/13/2019 11:33 AM Results for this URINE CULTURE NETWORK MGR procedure are in the results section. URINE CULTURE Routine 12/13/2019 11:33 AM Results for this NETWORK MGR procedure are i n the results section. CBC W/PLT COUNT & AUTO STAT 12/13/2019 11:31 AM Results for this DIFFERENTIAL NETWORK MGR procedure are i n the results section. APTT STAT 12/13/2019 11:31 AM Results for this NETWORK MGR procedure are i n the results section. PROTHROMBIN TIME/INR STAT 12/13/2019 11:31 AM Results for this NETWORK MGR procedure are i n the results section. PHOSPHORUS STAT 12/13/2019 11:31 AM Results for this NETWORK MGR procedure are i n the results section. MAGNESIUM STAT 12/13/2019 11:31 AM Results for this NETWORK MGR procedure are i n the results section. CBC W/PLT COUNT & AUTO STAT 12/13/2019 11:31 AM Results for this DIFFERENTIAL NETWORK MGR procedure are i n the results section. BASIC METABOLIC PANEL STAT 12/13/2019 11:31 AM Results for this (7) NETWORK MGR procedure are i n the results section. XR CHEST 1 VIEW STAT 12/13/2019 11:20 AM Resul ts for this PORTABLE/BEDSIDE NETWORK MGR procedure a re in the results section. POCT-ACT Routine 12/13/2019 10:38 AM Results for this NETWORK MGR procedure are i n the results section. POCT-ACT Routine 12/13/2019 9:24 AM Results for this NETWORK MGR procedure are i n the results section. POCT-ACT Routine 12/13/2019 9:10 AM Results for this NETWORK MGR procedure are i n the results section. HGB/HCT (H&H) - STAT STAT 12/13/2019 8:13 AM Results for this LAB NETWORK MGR procedure are i n the results section. GLUCOSE-STAT LAB STAT 12/13/2019 8:13 AM Resu lts for this NETWORK MGR procedure are i n the results section. POTASSIUM-STAT LAB STAT 12/13/2019 8:13 AM Re sults for this NETWORK MGR procedure are i n the results section. SODIUM NA-STAT LAB STAT 12/13/2019 8:13 AM Re sults for this NETWORK MGR procedure are i n the results section. BLOOD GAS, ARTERIAL STAT 12/13/2019 8:13 AM R esults for this NETWORK MGR procedure are i n the results section. CALCIUM, IONIZED STAT 12/13/2019 8:13 AM Resu lts for this NETWORK MGR procedure are i n the results section. BLOOD GAS, ARTERIAL STAT 12/13/2019 8:13 AM R esults for this NETWORK MGR procedure are i n the results section. REPAIR,EVAR-ENDOVASCUL 12/13/2019 7:03 AM Ruptured ab dominal AR AORTIC ANEURYSM NETWORK MGR aortic aneurysm (AAA) (HCC) Special Needs (ICU BED NEEDED) (CELLAVISION MANUAL STAT 12/13/2019 4:22 AM R esults for this DIFF) NETWORK MGR procedure are i n the results section. CBC WITH PLATELET COUNT STAT 12/13/2019 4:22 AM Results for this + MANUAL DIFF NETWORK MGR procedure are in the results section. PHOSPHORUS STAT 12/13/2019 4:22 AM Results for this NETWORK MGR procedure are i n the results section. MAGNESIUM STAT 12/13/2019 4:22 AM Results for this NETWORK MGR procedure are i n the results section. CBC W/PLT+MANUAL DIFF STAT 12/13/2019 4:22 AM Results for this NETWORK MGR procedure are i n the results section. HEMOGLOBIN A1C Routine 12/13/2019 4:22 AM Result s for this NETWORK MGR procedure are i n the results section. BASIC METABOLIC PANEL STAT 12/13/2019 4:22 AM Results for this (7) NETWORK MGR procedure are i n the results section. PREPARE RBC Routine 12/12/2019 10:21 PM Results for this NETWORK MGR procedure are i n the results section. POCT-GLUCOSE METER Routine 12/12/2019 9:26 PM Re sults for this NETWORK MGR procedure are i n the results section. PROTHROMBIN TIME/INR STAT 12/12/2019 6:32 PM Results for this NETWORK MGR procedure are i n the results section. POCT-GLUCOSE METER Routine 12/12/2019 4:40 PM Re sults for this NETWORK MGR procedure are i n the results section. BASIC METABOLIC PANEL Routine 12/12/2019 4:27 PM Results for this (7) NETWORK MGR procedure are i n the results section. VASCULAR DIAGRAM -SCAN 12/12/2019 Resul ts for this procedure are i n the results section. ANTIBODY IDENTIFICATION STAT 12/11/2019 4:23 PM Aneurysm o f Results for this NETWORK MGR infrarenal procedure are i n abdominal aorta the results (HCC) section. 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 XR CHEST 2 VIEWS Routine 12/11/2019 12:33 PM Aneurysm of Resu lts for this NETWORK MGR infrarenal procedure are i n abdominal aorta the results (HCC) section. ECG 12-LEAD Routine 12/11/2019 12:01 PM NETWORK MGR Procedure Note - Interface, External Ris In - 12/11/2019 1:28 PM NETWORK MGR Ventricular Rate 59 BPM Atrial Rate 59 BPM P-R Interval 230 ms QRS Duration 88 ms Q-T Interval 490 ms QTC Calculation(Bazett) 485 ms P Mcintosh 60 degrees R Mcintosh 27 degrees T Mcintosh 71 degrees Sinus bradycardia with 1st d egree A-V block Prolonged QT Abnormal ECG When compared with ECG of 15:05, No significant change was fo und ECG 12-LEAD Routine 12/11/2019 12:01 PM Aneurysm of Results for this NETWORK MGR infrarenal procedure are i n abdominal aorta the results (HCC) section. SARS-COV2/RT-PCR ([facility] Routine 12/11/2019 11:49 AM Pre-op test ing Results for this & REF LABS) NETWORK MGR procedure are i n the results section. (CELLAVISION MANUAL Routine 12/11/2019 10:38 AM Aneurysm of R esults for this DIFF) NETWORK MGR infrarenal procedure are i n abdominal aorta the results (HCC) section. CBC W/PLT COUNT & AUTO Routine 12/11/2019 10:38 AM Aneurysm of Results for this DIFFERENTIAL NETWORK MGR infrarenal procedure are i n abdominal aorta the results (HCC) section. DIRECT AHG STAT 12/11/2019 10:38 AM Aneurysm of Results for this (GARTH)/DIRECT KELVIN NETWORK MGR infrarenal procedur e are in abdominal aorta the results (HCC) section. TYPE AND SCREEN, STAT 12/11/2019 10:38 AM Aneurysm of Resu lts for this AUTOMATED NETWORK MGR infrarenal procedure are i n abdominal aorta the results (HCC) section. HEMOGLOBIN A1C Routine 12/11/2019 10:38 AM Aneurysm of Result s for this NETWORK MGR infrarenal procedure are i n abdominal aorta the results (HCC) section. Pre-op testing LACTATE DEHYDROGENASE Routine 12/11/2019 10:38 AM Aneurysm of Results for this (LDH) NETWORK MGR infrarenal procedure are i n abdominal aorta the results (HCC) section. URINALYSIS W/ Routine 12/11/2019 10:38 AM Aneurysm of Results for this MICROSCOPIC NETWORK MGR infrarenal procedure are i n abdominal aorta the results (HCC) section. HEPATITIS C ANTIBODY Routine 12/11/2019 10:38 AM Aneurysm of Results for this NETWORK MGR infrarenal procedure are i n abdominal aorta the results (HCC) section. LIPASE Routine 12/11/2019 10:38 AM Aneurysm of Results for this NETWORK MGR infrarenal procedure are i n abdominal aorta the results (HCC) section. AMYLASE Routine 12/11/2019 10:38 AM Aneurysm of Results for this NETWORK MGR infrarenal procedure are i n abdominal aorta the results (HCC) section. HEPATITIS B PANEL Routine 12/11/2019 10:38 AM Aneurysm of Res ults for this NETWORK MGR infrarenal procedure are i n abdominal aorta the results (HCC) section. RETICULOCYTE COUNT Routine 12/11/2019 10:38 AM Aneurysm of Re sults for this NETWORK MGR infrarenal procedure are i n abdominal aorta the results (HCC) section. APTT Routine 12/11/2019 10:38 AM Aneurysm of Results for this NETWORK MGR infrarenal procedure are i n abdominal aorta the results (HCC) section. PROTHROMBIN TIME/INR Routine 12/11/2019 10:38 AM Aneurysm of Results for this NETWORK MGR infrarenal procedure are i n abdominal aorta the results (HCC) section. PROTEIN, TOTAL Routine 12/11/2019 10:38 AM Aneurysm of Result s for this NETWORK MGR infrarenal procedure are i n abdominal aorta the results (HCC) section. ALT (SGPT) Routine 12/11/2019 10:38 AM Aneurysm of Results for this NETWORK MGR infrarenal procedure are i n abdominal aorta the results (HCC) section. AST (SGOT) Routine 12/11/2019 10:38 AM Aneurysm of Results for this NETWORK MGR infrarenal procedure are i n abdominal aorta the results (HCC) section. BILIRUBIN, DIRECT Routine 12/11/2019 10:38 AM Aneurysm of Res ults for this NETWORK MGR infrarenal procedure are i n abdominal aorta the results (HCC) section. BILIRUBIN, ADULT TOTAL Routine 12/11/2019 10:38 AM Aneurysm of Results for this NETWORK MGR infrarenal procedure are i n abdominal aorta the results (HCC) section. ALKALINE PHOSPHATASE Routine 12/11/2019 10:38 AM Aneurysm of Results for this NETWORK MGR infrarenal procedure are i n abdominal aorta the results (HCC) section. ALBUMIN Routine 12/11/2019 10:38 AM Aneurysm of Results for this NETWORK MGR infrarenal procedure are i n abdominal aorta the results (HCC) section. HC LAB HIV-1 AG Routine 12/11/2019 10:38 AM Aneurysm of Resul ts for this W/HIV-1&2 AB NETWORK MGR infrarenal procedure are i n abdominal aorta the results (HCC) section. BASIC METABOLIC PANEL Routine 12/11/2019 10:38 AM Aneurysm of Results for this (7) NETWORK MGR infrarenal procedure are i n abdominal aorta the results (HCC) section. CBC W/PLT COUNT & AUTO Routine 12/11/2019 10:38 AM Aneurysm of Results for this DIFFERENTIAL NETWORK MGR infrarenal procedure are i n abdominal aorta [...] are i n the results section. after 02/27/2019 Results POC ACTIVATED CLOTTING TIME (2020 11:24 AM NETWORK MGR)Only the most recent of9 resultswithin the time period is included. Activated Clotting [address] [facility] Comment: [facility] : 74-137 seconds, Baseline CENTER : TESTED AT [address], [address] : Manager Of Regulatory Affairs/School Counsellor ID = [id number] for CLAU GREGG Specimen Blood Performing Organization Address City/State/Zipcode Phone Number [address] [phone] CENTER ECG 12 lead (2020 10:50 AM NETWORK MGR)Only the most recent of3 resultswithin the time period is included. Specimen Narrative Performed At Ventricular Rate 51 BPM GE MUSE Atrial Rate 166 BPM QRS Duration 92 ms Q-T Interval 524 ms QTC Calculation(Bazett) 482 ms P Mcintosh 41 degrees R Mcintosh -6 degrees T Mcintosh 56 degrees Sinus bradycardia Cannot rule out Anterior infarct , age u ndetermined Prolonged QT Abnormal ECG 18 DEC 2019 Sinus bradycardia replaced AVNRT ST no longer depressed precordial leads QT has shortened Confirmed by MD MUSHTAQ, RADHA ([id number]) on 2020 1:28:53 PM Procedure Note Interface, External Ris In - 2020 1:29 PM NETWORK MGR Ventricular Rate 51 BPM Atrial Rate 166 BPM QRS Duration 92 ms Q-T Interval 524 ms QTC Calculation(Bazett) 482 ms P Mcintosh 41 degrees R Mcintosh -6 degrees T Mcintosh 56 degrees Sinus bradycardia Cannot rule out Anterior infarct , age u ndetermined Prolonged QT Abnormal ECG 18 DEC 2019 Sinus bradycardia replaced AVNRT ST no longer depressed precordial leads QT has shortened Confirmed by MD MUSHTAQ, RADHA ([id number]) on 2020 1:28:53 PM Performing Organization Address City/State/Zipcode Phone Number GINA ALY CARDIAC CATH REPORT - SCAN (2020) Narrative Performed At This result has an attachment that is no t available. Ordered by an unspecified provider. SARS-CoV2/RT-PCR ([facility] & Ref Labs) (01/03/2020 10:25 AM NETWORK MGR)Only the most recent of3 resultswithin the time period is included. SARS-COV2/RT-PCR Negative Not Detected, [facility] Negative, See [facility] external report CENTER for linked test SARS-COV-2 [facility] GENEVIEVERA LUCIANO PRUETT [facility] PERFORMING LAB [facility] Specimen Other - Nasopharyngeal wall structure (b ludwig structure) Narrative Performed At Negative result for this test determines that [facility] SARS-CoV-2 RNA was not present in the [...] the Act. Fact Sheet for Healthcare Providers: https://www.[employer]/sites/default/files/pro duct/documents/Fact_Sheet_HC_Providers_Lyra_SA RS-CoV-2.pdf Fact Sheet for Healthcare Patients: https://www.[employer]/sites/default/files/pro duct/documents/Fact_Sheet_Patients_Lyra_SARS-C oV-2.pdf Performing Laboratory: [address] [address] Performing Organization Address City/[facility]/Zipcode Phone Number [address] [address] [place] POC-Glucose meter (12/19/2019 7:18 AM NETWORK MGR)Only the most recent of21 results within the time period is included. Pathologist [facility] POC-Glucose Meter 121 (H) 70 - 110 mg/dL [facility] Comment: [facility] : TESTED AT [address], [address] CENTER : Manager Of Regulatory Affairs/School Counsellor ID = [id number] for YESSI VERGARA Specimen Blood Performing Organization Address [facility]/Zipcode Phone Number [address] [address] [place] CBC (hemogram only) (12/19/2019 4:49 AM NETWORK MGR)Only the most recent of7 results within the time period is included. Pathologist Sig nature WBC 48.4 (H) 3.5 - 10.5 K/L [facility] RBC 2.60 (L) 4.63 - 6.08 M/L [facility] Hemoglobin 8.4 (L) 13.7 - 17.5 GM/DL [facility] Hematocrit 27.2 (L) 40.1 - 51.0 % [facility] MCV 104.6 (H) 79.0 - 92.2 fL [facility] MCH 32.3 (H) 25.7 - 32.2 pg [facility] MCHC 30.9 (L) 32.3 - 36.5 GM/DL [facility] RDW 16.7 (H) 11.6 - 14.4 % [facility] Platelets 139 (L) 150 - 450 K/CU MM [facility] MPV 10.6 9.4 - 12.4 fL [facility] nRBC 0 0 - 0 /100 WBC [facility] Specimen Blood Performing Organization Address City/[facility] Phone Number [address] [address] CENTER Phosphorus (12/19/2019 4:49 AM NETWORK MGR)Only the most recent of9 resultswithin the time period is included. Pathologist Sig nature Phosphorus 2.9 2.3 - 4.7 mg/dL [facility] Specimen Blood Narrative Performed At Manager Of Regulatory Affairs ID - MARIELA [facility] Performing Organization Address [facility] Phone Number [address] [address] CENTER Magnesium (12/19/2019 4:49 AM NETWORK MGR)Only the most recent of10 resultswithin the time period is included. Pathologist Sig nature Magnesium 2.1 1.6 - 2.6 mg/dL [facility] Specimen Blood Narrative Performed At Manager Of Regulatory Affairs ID - MARIELA [facility] Performing Organization Address City/[facility] Phone Number [address] [address] CENTER Basic Metabolic Panel (12/19/2019 4:49 AM NETWORK MGR)Only the most recent of12 results within the time period is included. Sodium 140 136 - 145 meq/L [facility] Potassium 3.7 3.5 - 5.1 meq/L [facility] Chloride 109 (H) 98 - 107 meq/L [facility] CO2 25 22 - 29 meq/L [facility] BUN 20 7 - 21 mg/dL [facility] Creatinine 1.29 (H) 0.57 - 1.25 [facility] mg/dL [facility] Glucose 130 (H) 70 - 105 mg/dL [facility] Calcium 8.6 8.4 - 10.2 [facility] mg/dL [facility] EGFR 54Comment: ESTIMATED mL/min/1.[address] [facility] GFR IS NOT m [facility] CREATININE CLEARANCE IN PREDICTING GLOMERULAR FILTRATION RATE. ESTIMATED GFR IS NOT APPLICABLE FOR DIALYSIS PATIENTS. Specimen Blood Narrative Performed At Manager Of Regulatory Affairs DEVIKA Ortiz [facility]ENTER Performing Organization Address City/State/Zipcode Phone Number [facility] [address] [place] [address] CENTER aPTT (12/16/2019 5:13 AM NETWORK MGR)Only the most recent of9 resultswithin the time period is included. Pathologist Sig nature PTT 39.6 (H) 22.5 - 36.0 seconds [facility] Specimen Blood Performing Organization Address City/[facility]/Zipcode Phone Number [facility] [address] [place] [address] CENTER Prepare RBC (12/14/2019 11:54 PM NETWORK MGR)Only the most recent of2 resultswithin the time period is included. Pathologist Sig nature Unit ABO O Pos SAFETRACE TX UNIT NUMBER [id number] SAFETRACE TX Status TX_TIMEINCHART SAFETRACE TX Blood Bank Product RED BLOOD CELLS SAFETRACE TX PRODUCT CODE [id number] SAFETRACE TX Unit ABO O Pos SAFETRACE TX UNIT NUMBER [id number] SAFETRACE TX Status WORK IN PROGRESS SAFETRACE TX Blood Bank Product RED BLOOD CELLS SAFETRACE TX PRODUCT CODE [id number] SAFETRACE TX Unit ABO A Pos SAFETRACE TX UNIT NUMBER [id number] SAFETRACE TX Status TX_TIMEINCHART SAFETRACE TX Blood Bank Product RED BLOOD CELLS SAFETRACE TX PRODUCT CODE [id number] SAFETRACE TX Unit ABO A Pos SAFETRACE TX UNIT NUMBER [id number] SAFETRACE TX Status WORK IN PROGRESS SAFETRACE TX Blood Bank Product RED BLOOD CELLS SAFETRACE TX PRODUCT CODE [id number] SAFETRACE TX CROSSMATCH INCOMPATIBLE SAFETRACE TX CROSSMATCH INCOMPATIBLE SAFETRACE TX CROSSMATCH INCOMPATIBLE SAFETRACE TX CROSSMATCH INCOMPATIBLE SAFETRACE TX Performing Organization Address City/State/Zipcode Phone Number SAFETRACE TX XR chest 1 view portable / bedside (12/14/2019 7:50 AM NETWORK MGR)Only the most recent of3 resultswithin the time period is included. Specimen Narrative Performed At FINAL REPORT [facility] Chest, one view. HISTORY: post-extubation COMPARISON: Radiograph [...] Report Verified Date/Time: 12/14/2019 08:16:23 Reading Location: [facility] B1 C013[facility] CT Body R [facility] Room Procedure Note Interface, External Ris In - 12/14/2019 8:18 AM NETWORK MGR FINAL REPORT Chest, one view. HISTORY: post-extubation [...] Verified Date/Time: 12/14/2019 0 8:16:23 Reading Location: [facility] B1 C013Y CT Body R eading Room Performing Organization Address City/State/[facility] Phone Number [facility] Blood gas, arterial (12/14/2019 5:07 AM NETWORK MGR)Only the most recent of6 results within the time period is included. Pathologist Sig nature pH, Arterial 7.39 7.35 - 7.45 [facility] pCO2, Arterial 36 35 - 45 mm Hg [facility] pO2, Arterial 112 (H) 80 - 90 mm Hg [facility] O2 Sat, Arterial 97.8 (H) 96.0 - 97.0 % [facility] HCO3, Arterial 21 21 - 29 mmol/L [facility] Base Excess, Arterial -3.4 (L) -2.0 - 3.0 [facility] mmol/L [facility] Patient Temperature 38.4 [facility] FIO2 60.0 [facility] Specimen Blood, Arterial Performing Organization Address [facility] Phone Number [address] [address] [place] Calcium, Ionized (12/13/2019 11:12 PM NETWORK MGR)Only the most recent of5 resultswithin the time period is included. Pathologist [facility] nature Calcium, Ion 1.20 1.12 - 1.27 mmol/L [facility] pH, Blood 7.31 [facility] Specimen Blood Performing Organization Address City/[facility]/Zipcode Phone Number [facility] [address] [place] [address] [place] Prothrombin time/INR (12/13/2019 11:10 PM NETWORK MGR)Only the most recent of4 results within the time period is included. Pathologist Sig nature Protime 17.6 (H) 11.9 - 14.2 seconds [facility] INR 1.49 <=5.90 [facility] Specimen Blood Narrative Performed At Effective 07/04/2018: PT Reference Range [facility] Change New: 11.9-14.2 Previous: 11.7-14.7 RECOMMENDED COUMADIN/WARFARIN INR THERAPY RANGES STANDARD DOSE: 2.0-3.0 Includes: PROPHYLAXIS for venous thrombosis, systemic embolization; TREATMENT for venous thrombosis and/or pulmonary embolus. HIGH RISK: Target INR is 2.5-3.5 for patients wiht mechanical heart valves. Performing Organization Address City/[facility] Phone Number [address] [address] [place] Potassium-Stat Lab (12/13/2019 8:48 PM NETWORK MGR)Only the most recent of4 results within the time period is included. Pathologist Sig nature Potassium 4.0 3.6 - 5.5 meq/L [facility] Specimen Blood, Arterial Performing Organization Address City/[facility] Phone Number [address] [address] CENTER Sodium Na-Stat Lab (12/13/2019 8:48 PM NETWORK MGR)Only the most recent of4 results within the time period is included. Pathologist Sig nature Sodium 138 136 - 145 meq/L [facility] Specimen Blood, Arterial Performing Organization Address City/[facility] Phone Number [address] [address] CENTER Glucose-Stat Lab (12/13/2019 8:48 PM NETWORK MGR)Only the most recent of4 resultswithin the time period is included. Pathologist Sig nature Glucose 138 (H) 70 - 110 mg/dL [facility] Specimen Blood, Arterial Performing Organization Address [facility] Phone Number [address] [address] CENTER HGB/HCT (H&H)-Stat Lab (12/13/2019 8:48 PM NETWORK MGR)Only the most recent of4 resultswithin the time period is included. Pathologist Sig nature Hemoglobin 10.1 (L) 13.0 - 16.8 GM/DL [facility] Hematocrit 30.0 (L) 40.0 - 50.0 % [facility] Specimen Blood, Arterial Performing Organization Address [facility] Phone Number [address] [address] CENTER Transfuse Leuko-Red RBC (12/13/2019 7:48 PM NETWORK MGR)Only the most recent of2 resultswithin the time period is included.Lactic Acid, Arterial (12/13/2019 6:18 PM NETWORK MGR) Pathologist Sig [facility] Lactate, Art 0.7 0.5 - 2.2 mmol/L [facility] Specimen Blood, Arterial Narrative Performed At Manager Of Regulatory Affairs ID - BS [facility] MED [facility]AL CENTER Performing Organization Address City/[facility] Phone Number [address] [address] CENTER RAFIQ's Only(Ankle/Brachial Index) (12/13/2019 12:51 PM NETWORK MGR) Pathologist Sig nature Ejection Fraction [facility] ECHO HEARTLAB MKCK ESSON CPACS Specimen Impressions Performed At Right Impression [facility] ECHO HEARTLAB MKCKESSON CPACS 1. The posterior tibial and dorsalis pedis [...] At LAB - Lower Extremity Arterial Proced [facility]ESSON [facility] Demographics Patient Name IDANIA TERRY Date of Study 12/13/2019 DEBORAH III Age 74 Visit Number [id number] Gender Male Accession Number [id number] Date of 1945 Referring delano payne Room Number [id number] Physician Crystal Flat Grinder Cm Anderson S Interpreting Cyndi Pastor T Physician Procedure Type of Study: Extremities Arteries: Lower Extremity Arterial Procedure, ARTERIAL (RAFIQ'S W/DOPPLER) ONLY. Indications for Study:Absent pulses. Patient Status:Routine. Study Location:Portable. Technical Quality:Technically Difficult. Risk Factors History of Disease + + + + !Diagnosis !Date !Comments ! + + + + !Other ! !Pre-OP ! + + + + Procedure Note Interface, External Ris In - 12/14/2019 9:47 AM NETWORK MGR PV LAB - Lower Extremity Arterial Procedure Demographics Patient Name IDANIA TERRY ate of Study 12/13/2019 DEBORAH III A [employer] 74 Visit Number [id number] G willard Male Accession Number [id number] D ate of 1945 Referring delano johnom Number [id number] Physician Crystal Flat Grinder Cm Anderson RVS I nterpreting Cyndi Pastor [...] cm Performing Organization Address City/State/Zipcode Phone Number [facility] HEARTLAB [facility] Arterial doppler legs bilateral (12/13/2019 12:51 PM NETWORK MGR) [facility] Sig nature Ejection Fraction [facility] Specimen Impressions Performed At Right Impression [facility] 1. The common femoral, profunda femoral and [...] + + + + + + !Prox DYE RANGE OPERATOR CLOTH ! !143 ! ! ! !0 ! ! ! + + + + + + + + + + !Mid DYE RANGE OPERATOR CLOTH ! !23.6 ! ! ! !0 ! ! ! + + + + + + + + + + !Dist DYE RANGE OPERATOR CLOTH ! !0 ! ! ! !0 ! [...] At LAB - Lower Extremity Arterial Duplex [facility] ECHO HEARTLAB MKCKESSON [facility] Demographics Patient Name IDANIA TERRY Date of Study 12/13/2019 DEBORAH III Age 74 Visit Number [id number] Gender Male Accession Number [id number] Date of 1945 Referring Oneil Wick Room Number [id number] Physician Crystal Flat Grinder Cm Anderson RVS Interpreting Cyndi Pastor RVT [...] External Ris In - 12/14/2019 9:47 AM NETWORK MGR PV LAB - Lower Extremity Arterial Duplex Demographics Patient Name IDANIA TERRY ate of Study 12/13/2019 DEBORAH III A ge 74 Visit Number [id number] G willard Male Accession Number [id number] D ate of 1945 Referring Oneil juarez Number [id number] Physician Crystal Flat Grinder Cm Anderson RVS I nterpreting Cyndi Pastor [...] + + + + + + !Prox DYE RANGE OPERATOR CLOTH ! !143 ! ! ! !0 ! ! ! + + + + + + + + + + !Mid DYE RANGE OPERATOR CLOTH ! !23.6 ! ! ! !0 ! ! ! + + + + + + + + + + !Dist DYE RANGE OPERATOR CLOTH ! !0 ! ! ! !0 ! [...] + Reflex to Culture (12/13/2019 11:33 AM NETWORK MGR) Color, UA Light Yellow [facility] Clarity, UA Cloudy [facility] Specific [place], 1.036 (H) 1.001 - 1.035 [facility] pH, UA 6.0 5.0 - 8.0 [facility] Protein, UA 30 mg/dL (A) Negative [facility] Glucose, UA Negative Negative [facility] Ketones, UA Negative Negative [facility] Bilirubin, UA Negative Negative [facility] Blood, UA Small (A) Negative [facility] Nitrite, UA Negative Negative [facility] Leukocytes, UA Large (A) Negative [facility] Urobilinogen, UA 0.2 0.2 - 1.0 mg/dL [facility] RBC, UA 18 /HPF [facility] WBC, UA 769 /HPF [facility] Bacteria, UA Rare [facility] Specimen Source [facility] Specimen Urine - Urinary catheter, device (physic al object) Narrative Performed At Manager Of Regulatory Affairs ID - [auto] [facility] Manager Of Regulatory Affairs ID - tech Performing Organization Address City/[facility]/Zipcode Phone Number [address] [address] [place] Urine culture (12/13/2019 11:33 AM NETWORK MGR) Pathologist Sig nature Result No growth [facility] ICAL [place] Specimen Urine - Urinary catheter, device (physic al object) Performing Organization Address [facility] Phone Number [address] [address] [place] CBC with platelet count + automated diff (12/13/2019 11:31 AM NETWORK MGR)Only the most recent of2 resultswithin the time period is included. Pathologist Sig nature WBC 67.7 (HH) 3.5 - 10.5 K/L [facility] RBC 2.72 (L) 4.63 - 6.08 M/L [facility] Hemoglobin 8.6 (L) 13.7 - 17.5 GM/DL [facility] Hematocrit 26.8 (L) 40.1 - 51.0 % [facility] MCV 98.5 (H) 79.0 - 92.2 fL [facility] MCH 31.6 25.7 - 32.2 pg [facility] MCHC 32.1 (L) 32.3 - 36.5 GM/DL [facility] RDW 17.5 (H) 11.6 - 14.4 % [facility] Platelets 155 150 - 450 K/CU MM [facility] MPV 10.4 9.4 - 12.4 fL [facility] nRBC 0 0 - 0 /100 WBC [facility] Specimen Blood Performing Organization Address City/State/Zipcode Phone Number [facility] [address] [place] [address] CENTER CBC with platelet count + manual diff (12/13/2019 4:22 AM NETWORK MGR) Pathologist Sig nature WBC 64.8 (HH) 3.5 - 10.5 K/L [facility] RBC 2.93 (L) 4.63 - 6.08 M/L [facility] Hemoglobin 9.1 (L) 13.7 - 17.5 GM/DL [facility] Hematocrit 28.7 (L) 40.1 - 51.0 % [facility] MCV 98.0 (H) 79.0 - 92.2 fL [facility] MCH 31.1 25.7 - 32.2 pg [facility] MCHC 31.7 (L) 32.3 - 36.5 GM/DL [facility] RDW 17.4 (H) 11.6 - 14.4 % [facility] Platelets 172 150 - 450 K/CU MM [facility] MPV 10.1 9.4 - 12.4 fL [facility] nRBC 0 0 - 0 /100 WBC [facility] Specimen Blood Performing Organization Address City/State/Zipcode Phone Number [facility] [address] [place] [address] CENTER Manual Differential (12/13/2019 4:22 AM NETWORK MGR)Only the most recent of2 results within the time period is included. Pathologist Sig nature % Neutros 4 % [facility] % Lymphs 92 % [facility] % Eos 2 % [facility] % [place] 1 (H) 0 - 0 % [facility] % Atypical Lymphs 1 (H) 0 - 0 % [facility] # Neutros 2.59 1.78 - 5.38 [facility] # Lymphs 59.62 (H) 1.32 - 3.57 [facility] # Eos 1.30 (H) 0.04 - 0.54 [facility] # [place] 0.65 (H) 0.00 - 0.00 [facility] # Atypical Lymphs 0.65 (H) 0.00 - 0.00 [facility] Total Counted 100 [facility] RBC Morphology Normal [facility] WBC Morphology Normal [facility] Platelet Morphology Normal [facility] Specimen Blood Narrative Performed At Manager Of Regulatory Affairs ID - [id number] [facility] MED ICAL CENTER Performing Organization Address City/State/Zipcode Phone Number [facility] [address], [place] [id number] CENTER Hemoglobin A1c (12/13/2019 4:22 AM NETWORK MGR)Only the most recent of2 resultswithin the time period is included. Pathologist Sig nature Hemoglobin A1C 5.2 4.3 - 6.1 % [facility] Specimen Blood Narrative Performed At Please recheck [facility] Please recheck Performing Organization Address City/State/Zipcode Phone Number [facility] [address] [place] [address] CENTER VASCULAR DIAGRAM -SCAN (12/12/2019) Narrative Performed At This result has an attachment that is no t available. Ordered by an unspecified provider. Antibody identification (12/11/2019 4:23 PM NETWORK MGR) ANTIBODY ID UNID IgG [facility] [place] (BEAKER) WARM AUTO AB Antibody Consult SIGNED OUTComment: Warm [facility] panagglutinin detected, ok to transfuse incompatible bloodElectronic Signature: Shmuel Woo M.D. Specimen Performing Organization Address City/State/Zipcode Phone Number [facility] [place] Carotid doppler bilateral (12/11/2019 1:52 PM NETWORK MGR) Pathologist Sig nature Ejection Fraction [facility] Specimen Impressions Performed At Right Impression [facility] 1. There is <50% diameter reduction [...] At PV LAB - Carotid Duplex Study [facility] ECHO HEARTLAB MKCKESSON [facility] Demographics Patient Name IDANIA TERRY Date of Study 12/11/2019 DEBORAH III Age 74 Visit Number [id number] Gender Male Accession Number [id number] Date of 1945 Referring Casey Payne NP Room Number Physician Crystal Flat Grinder Peter Forbes T Interpreting Caryl Gao, Physician [...] External Ris In - 12/12/2019 7:51 AM NETWORK MGR PV LAB - Carotid Duplex Study Demographics Patient Name IDANIA TERRY D ate of Study 12/11/2019 DEBORAH III A ge 74 Visit Number [id number] G willard Male Accession Number [id number] D ate of 1945 Referring Casey Payne NP R oom Number Physician Crystal Flat Grinder Peter Forbes T I nterpreting Norman Pastor [...] Measurements:ICAPSV/CCAPS V 0.85.ICAEDV/CCAEDV 0.94. Performing Organization Address City/State/Zipcode Phone Number [facility] CPACS XR chest 2 views (12/11/2019 12:33 PM NETWORK MGR) Specimen Narrative Performed At FINAL REPORT GE [...] Report Verified Date/Time: 12/11/2019 13:32:39 Reading Location: [place] [employer] y Reading Room Procedure Note Interface, External Ris In - 12/11/2019 1:34 PM NETWORK MGR FINAL REPORT PA and Lateral views of the chest dated 12/11/2019 Clinical information: pre-op Comment: Heart is normal in size. Thora cic aorta is ectatic. Pulmonary vasculature is unremarkable. L ungs are clear. No pulmonary infiltrate or pleural effusion is presen t. Impression: No active cardiopulmonary d isease. Signed: Vamsi Johns MD Report Verified Date/Time: 12/11/2019 1 3:32:39 Reading Location: [place] [employer] y Reading Room Performing Organization Address City/State/Zipcode Phone Number GE RIS Type and screen, automated (12/11/2019 10:38 AM NETWORK MGR) ABO/RH AUTOMATED A POSITIVE [facility] (BEAKER) [facility] Ab Scrn POSITIVEComment: [address] Specimen Blood Performing Organization Address City/[facility]/Zipcode Phone Number [facility] [address] [place] [address] HIV-1 Antigen with HIV-1/2 Antibody (12/11/2019 10:38 AM NETWORK MGR) Pathologist Sig nature HIV-1 Antigen with Nonreactive Nonreactive [facility] HIV 1&2 Antibody [facility] Specimen Blood Narrative Performed At Manager Of Regulatory Affairs ID - ADMIN [facility] Performing Organization Address City/[facility]/[place] [address] [place] Hepatitis B Panel (12/11/2019 10:38 AM NETWORK MGR) Pathologist Sig nature Hep B Core Total Ab Nonreactive Nonreactive [facility] Hep B S Ab <8.0 <8.0 mIU/mL [facility] HBsAg Screen Nonreactive Nonreactive [facility] Specimen Blood Narrative Performed At Manager Of Regulatory Affairs ID - ADMIN [facility] Performing Organization Address City/[facility] [address] [place] Hepatitis C antibody (12/11/2019 10:38 AM NETWORK MGR) Pathologist Sig nature Hepatitis C Ab Nonreactive Nonreactive [facility] Specimen Blood Narrative Performed At Manager Of Regulatory Affairs ID - ADMIN [facility] Performing Organization Address City/[facility] [address] [place] Urinalysis w/Microscopic (12/11/2019 10:38 AM NETWORK MGR) Color, UA Light Yellow [facility] Clarity, UA Hazy [facility] Specific Screven, 1.011 1.001 - 1.035 [facility] pH, UA 6.5 5.0 - 8.0 [facility] Protein, UA 10 mg/dL (A) Negative [facility] Glucose, UA 1000 mg/dL (A) Negative [facility] Ketones, UA Negative Negative [facility] Bilirubin, UA Negative Negative [facility] Blood, UA Small (A) Negative [facility] Nitrite, UA Negative Negative [facility] Leukocytes, UA Large (A) Negative [facility] Urobilinogen, UA 0.2 0.2 - 1.0 mg/dL [facility] RBC, UA 4 /HPF [facility] WBC, UA 152 /HPF [facility] Mucus Rare [facility] Squam Epithel, UA <1 /HPF [facility] Specimen Source [facility] Specimen Urine Narrative Performed At Manager Of Regulatory Affairs ID - [auto] [facility] Manager Of Regulatory Affairs ID - tech Performing Organization Address [facility] Phone Number [address] [address] CENTER Reticulocyte count (12/11/2019 10:38 AM NETWORK MGR) Pathologist Sig nature % Retic 3.3 (H) 0.5 - 1.8 % [facility] Specimen Blood Narrative Performed At Manager Of Regulatory Affairs ID - [id number] [facility] Performing Organization Address [facility] Phone Number [address] [address] CENTER Direct [facility] (GARTH)/Direct Kelvin (12/11/2019 10:38 AM NETWORK MGR) Pathologist Sig nature Direct AHG-IGG POSITIVEComment [facility] 4+ [facility] Direct AHG-C3B, C3D POSITIVEComment [facility] Micro+ [facility] Specimen Blood Performing Organization Address [facility] Phone Number [address] [address] ALT (SGPT) (12/11/2019 10:38 AM NETWORK MGR) Pathologist Sig nature ALT 12 6 - 55 U/L [facility] Specimen Blood Narrative Performed At Manager Of Regulatory Affairs ID - ADMIN [facility] Performing Organization Address City/[facility] Phone Number [address] [address] CENTER AST (SGOT) (12/11/2019 10:38 AM NETWORK MGR) Pathologist Sig nature AST 12 5 - 34 U/L [facility] Specimen Blood Narrative Performed At Manager Of Regulatory Affairs ID - ADMIN [facility] Performing Organization Address City/[facility] Phone Number [address] [address] CENTER Protein, total (12/11/2019 10:38 AM NETWORK MGR) Pathologist Sig [facility] Protein, Total 6.1 6.0 - 8.3 gm/dL [facility] Specimen Blood Narrative Performed At Manager Of Regulatory Affairs ID - ADMIN [facility] Performing Organization Address City/[facility] Phone Number [address] [address] CENTER Alkaline phosphatase (12/11/2019 10:38 AM NETWORK MGR) Pathologist Sig nature Alkaline Phosphatase 93 40 - 150 U/L [facility] Specimen Blood Narrative Performed At Manager Of Regulatory Affairs ID - ADMIN [facility] Performing Organization Address City/[facility] Phone Number [address] [address] CENTER Lipase (12/11/2019 10:38 AM NETWORK MGR) Pathologist Sig nature Lipase 22 8 - 78 U/L [facility] Specimen Blood Narrative Performed At Manager Of Regulatory Affairs ID - ADMIN [facility] Performing Organization Address City/[facility]/Zipcode Phone Number [address] [address] CENTER Lactate dehydrogenase (LDH) (12/11/2019 10:38 AM NETWORK MGR) Pathologist Sig nature LDH 177 125 - 220 U/L [facility] DICAL [place] Specimen Blood Narrative Performed At Manager Of Regulatory Affairs ID - ADMIN [facility] Performing Organization Address [facility] Phone Number [address] [address] CENTER Bilirubin, direct (12/11/2019 10:38 AM NETWORK MGR) Pathologist Sig nature Bilirubin, Direct 0.4 0.1 - 0.5 mg/dL [facility] Specimen Blood Narrative Performed At Manager Of Regulatory Affairs ID ADMIN [facility] Performing Organization Address [facility] Phone Number [address] [address] [place] Bilirubin, adult total (12/11/2019 10:38 AM NETWORK MGR) Pathologist Sig nature Total Bilirubin 0.9 0.2 - 1.2 mg/dL [facility] Specimen Blood Narrative Performed At Manager Of Regulatory Affairs ID [facility] Performing Organization Address [facility] Phone Number [address] [address] CENTER Amylase (12/11/2019 10:38 AM NETWORK MGR) Pathologist Sig nature Amylase 30 25 - 125 U/L [facility] Specimen Blood Narrative Performed At Manager Of Regulatory Affairs ID - ADMIN [facility] Performing Organization Address [facility] Phone Number [address] [address] CENTER Albumin (12/11/2019 10:38 AM NETWORK MGR) Pathologist Sig nature Albumin 4.1 3.5 - 5.0 g/dL [facility] ED[facility] [place] Specimen Blood Narrative Performed At Manager Of Regulatory Affairs ID - ADMIN [facility] ICA CENTER Performing Organization Address City/State/Zipcode Phone Number [facility] MEDICAL [address] [place] [address] CENTER Pulmonary Funct Lab Spirometry (11/21/2019 10:30 AM CDT) Narrative Performed At Bianca Ly RRT, SUPERVISOR GLUING 020 12:31 PM [facility] PFT CHARTING REPORT Infection Control/Hand Hygiene procedure s followed throughout the encounter with patient: Yes Patient Identification Method: Patient n bairon verified on armband, and Medical record on armband, Is the order complete?: Yes Account ID#: [id number] Patient Name: Idania Terry III Birthdate: 1945 [...] SpO2 95 [id number] 99 Study Date: 11/21/19 [facility] Time: 1050 ASSESSMENT History & Physical [...] Specimen Narrative Performed At FINAL REPORT [facility] EXAM: CTA OF THE THORACOABDOMINAL AORTA AND [...] evaluation, multiplanar reconstruction, maximum intensity projections, and [employer] Interactive 3-D off-line postprocessing were performed on a dedic ated stand-alone workstation under the direct supervision of the [facility] physician. FINDINGS: Potential study limitations: [...] nonobstructing atherosclerotic changes throughout the abdominal aorta. [employer] dimensions of the thoraci c aorta are [...] Report Verified Date/Time: 11/05/2019 14:08:15 Reading Location: [place] [address] Procedure Note Interface, External Ris In - [...] evaluation, multiplanar reconstruction, maximum intensity projections, and [employer] Interactive 3-D off-line postprocessing were performed on a dedic ated stand-alone workstation under the direct supervision of the [facility] physician. FINDINGS: Potential study limitations: None. LINES/ [...] nonobstructing atherosclerotic changes throughout the abdominal aorta. [employer] dimensions of the thoraci c aorta are [...] Verified Date/Time: 11/05/2019 1 4:08:15 Reading Location: [place] [address] Performing Organization Address City/State/Zipcode Phone Number [place] CT/CTA abdomen & pelvis - For AAA (11/05/2019 8:01 AM CDT) Specimen Narrative Performed At FINAL REPORT [place] EXAM: CTA OF THE THORACOABDOMINAL AORTA AND [...] evaluation, multiplanar reconstruction, maximum intensity projections, and [employer] Interactive 3-D off-line postprocessing were performed on a dedic ated stand-alone workstation under the direct supervision of the inte [facility] physician. FINDINGS: Potential study limitations: [...] nonobstructing atherosclerotic changes throughout the abdominal aorta. [employer] dimensions of the thoraci c aorta are [...] Report Verified Date/Time: 11/05/2019 14:08:15 Reading Location: [place] [address] Procedure Note Interface, External Ris In - [...] evaluation, multiplanar reconstruction, maximum intensity projections, and [employer] Interactive 3-D off-line postprocessing were performed on a dedic ated stand-alone workstation under the direct supervision of the inte [facility] physician. FINDINGS: Potential study limitations: [...] nonobstructing atherosclerotic changes throughout the abdominal aorta. [employer] dimensions of the thoraci c aorta are [...] Verified Date/Time: 11/05/2019 1 4:08:15 Reading Location: [place] [address] Performing Organization Address City/State/Zipcode Phone Number [facility] POC-Creatinine (11/05/2019 7:25 AM CDT) POC-Creatinine 1.7 (H)Comment: : 0.6 - 1.3 [facility] TESTED AT [facility] mg/dL [facility] [address] [place] [address]: Manager Of Regulatory Affairs/Technicia n ID = [id number] for IRVIN LOMBARDI POC-EGFR 40 mL/min/1.73M2 [facility] Specimen Blood Performing Organization Address City/[facility]/Zipcode Phone Number [place] [phone] CENTER after 02/27/2019 Insurance Payer Benefit Plan / Subscriber ID Effective Dates Phone Addre ss Type Group MEDICARE MEDICARE A B [id number] 2009-Presen Medicare t [facility]/TOK [id number] 2019-Present [employer] SUPPLEMENT/[facility] Advance Directives For more information, please contact: [phone] Code Status Date Activated Date Inactivated Comments [...]
--- OUTSIDE RECORDS SUMMARY | 2020-02-28 08:08 | XMS REPORT | Continuity of Care Document ---
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/27/2018 Mis terrence accident Neuro, (disorder) [facility], PRECIOUS Clements,Diana Chavez, PRECIOUS [facility] [place] Hematoma Resolved Problem 03/27/2018 [place] (disorder) Neuro,[facility], PRECIOUS Clements,M Jaquelin Chavez, PRECIOUS [facility] [place] 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 to 8.6 MG Oral Rachelle-Colace. Tablet Docusate Sodium 1 tab, PO, Active Gray gar 50 MG / BID, X 14 day, 2017 [facility] sennosides, FCI # 28 tab, 0 8.6 MG Oral Refill(s), Tablet Pharmacy: [facility] [id number] ciprofloxacin 500 500 mg = 1 Active [place] mg oral tablet tab, PO, Q12H, 2017 [place] X 7 day, # 14 tab, 0 Refill(s), Pharmacy: [facility] [id number] Demarcus Notes: May Inactive Sugar interfere 2018 [...] No Longer Sugar MG / Hydrocodone as: [place]erson Active 2017 [place] Bitartrate 5 MG 325/5) [...] MG TAB, Dosing Oral Tablet Weight 89.545, [Pierson 5/325] kg, ONCE, STAT, Start date: 05/26/17 [...] 19:36:00 CDT diltiazem Notes: DO NOT Inactive Javada s CRUSH. 2017 [facility] Lisinopril Notes: (Same No Longer Javad as as: Prinivil, Active 2016 Medical Zestril) [place] Famotidine 20 MG 20 mg = 1 tab, Active [facility] Oral Tablet PO, BID, # 20 2017 Medica l tab, 0 Center Refill(s) magnesium citrate 8.725 gm = 150 No Longer 09/23 [facility] 58.2 MG/ML Oral ml, PO, Daily, Active 2016 M edical Solution X 2 day, # 300 Center mL, 0 Refill(s) Acetaminophen 325 1 tab, PO, Active [facility] MG / Hydrocodone Q6H, PRN for 2017 Dc dical Bitartrate 10 MG pain, X 14 Cent er Oral Tablet day, # 90 tab, [Pierson 10/325] 0 Refill(s) Methocarbamol 500 500 mg = 1 Active [facility] MG Oral Tablet tab, PO, Q8H, 2017 Med ical [Robaxin] PRN Spasms, X Center 10 day, # 30 tab, 0 Refill(s) {21 See Active [facility] (Methylprednisolo Instructions, 2017 Medical ne 4 [...] 2017 Medical (Do Not Crush) Center sennosides, [facility]CI Notes: (Same No Longer [facility] [place] as: Senokot) Active 2017 Medical Center [...] Acetaminophen 325 Notes: Do not No Longer [place] MG / Hydrocodone exceed 4gm/day Active 2016 [facility] Bitartrate 10 MG of Center Oral Tablet acetaminophen. [Pierson 10/325] (Same as: Pierson 325/10) Dilaudid Notes: Same No Longer [facility] as: Dilaudid Active 2016 Medical [place] Bisacodyl Notes: (Same [place] Longer [place] As: Dulcolax, Active 2016 [facility] Bisco-Lax) Center phenol Notes: No Longer [place] Chloraseptic Active 2016 Medical [place] (Same Center as: Chloraseptic, Sore Throat [place]) WASTE: F/P - Black; E - Municipal Trash [employer] Melatonin 3 MG Notes: (Same No Longer [place] Extended Release as: Melatonin) Active 2017 Medical Tablet Center Benadryl Notes: (Same No Longer [facility] as: Benadryl) Active 2017 Medical Center ceFAZolin Notes: Same No Longer [facility] as: Ancef Active 2016 Medical Center Allergies, Adverse Reactions, Alerts No Known Medication Allergies Immunizations No Data Provided for This Section Results Order Name Results Value Reference Date Interpretation Comments Sulema rce Range HEMATOLOGY MCHC 32.2 32.0 - 05/29 [place] 36.0 [facility] HEMATOLOGY MPV 8.6 7.4 - 10.4 05/29 [facility] HEMATOLOGY Platelet 222 133 - 450 05/29 [place] HEMATOLOGY RDW 16.8 11.5 - 05/29 [place] 14.5 /2017 [place] HEMATOLOGY Hgb 11.3 14.0 - 05/29 [place] 18.0 /2017 [place] HEMATOLOGY RBC 4.00 4.70 - 05/29 [place] 6.10 /2017 [place] HEMATOLOGY WBC 51.5 3.7 - 10.4 [...] Land HEMATOLOGY Tot Cell Ct 100 05/28 [place] HEMATOLOGY Atypical 2.0 <=0.0 % 05/28 [...] 1.0 0.0 - 0.8 05/28 [place] /2017 [place] HEMATOLOGY Platelet 225 133 - 450 05/28 [facility] HEMATOLOGY RDW 16.4 11.5 - 05/28 [place] 14.5 [place] HEMATOLOGY MCH 27.8 27.0 - 05/28 [place] 31.0 [facility] HEMATOLOGY MCHC 32.2 32.0 - 05/28 [place] 36.0 [facility] HEMATOLOGY MCV 86.2 80.0 - 05/28 [place] 94.0 [place] HEMATOLOGY Hct 35.5 42.0 - 05/28 [place] 54.0 [facility] HEMATOLOGY MPV 8.2 7.4 - 10.4 05/28 [facility] HEMATOLOGY Hgb 11.4 14.0 - 05/28 [place] 18.0 [place] HEMATOLOGY RBC 4.13 4.70 - 05/28 [place] 6.10 [facility] HEMATOLOGY WBC 51.0 3.7 - 10.4 05/28 Result Comment: [facility] Critical Result(s) called to HANDY Garcia at 05/28/2017 05:59 by NITRILES LAB TECHNICIAN. Read back OK. CHEM PANEL eGFR 68 05/27 Result Comment: The [facility] eGFR is calculated using the [...] 0.0 - 0.2 05/27 [place] /2017 [facility] HEMATOLOGY Anisocyte 1+ None Seen 05/27 [place] *ABN* /2017 [place] (05/27/17 8:34 AM) HEMATOLOGY Eosinophils 0.2 0.0 - 0.5 05/27 [place] # /2017 [facility] HEMATOLOGY Segs 19.3 45.0 - 05/27 [place] 75.0 /2017 [facility] HEMATOLOGY Plt Morph Normal 05/27 [place] (05/27/17 8:34 AM) /2017 [facility] HEMATOLOGY Lymphocytes 78.6 20.0 - 05/27 [place] 40.0 /2017 [facility] HEMATOLOGY Platelet 213 133 - 450 05/27 [place] /2017 [facility] HEMATOLOGY MPV 8.5 7.4 - 10.4 05/27 [place] /2017 [facility] HEMATOLOGY MCHC 33.0 32.0 - 05/27 [place] 36.0 [facility] HEMATOLOGY RDW 16.4 11.5 - 05/27 [place] 14.5 [facility] HEMATOLOGY Hgb 12.4 14.0 - 05/27 [place] 18.0 [facility] HEMATOLOGY MCV 86.8 80.0 - 05/27 [place] 94.0 [facility] HEMATOLOGY Hct 37.4 42.0 - 05/27 [place] 54.0 [facility] HEMATOLOGY MCH 28.7 27.0 - 05/27 [place] 31.0 [facility] HEMATOLOGY WBC 56.8 3.7 - 10.4 05/27 Result /2017 Comment: [facility] Critical Result(s) called to Nadeem Ayala Rn at 05/27/2017 08:53 by Bry. Read back OK. HEMATOLOGY RBC 4.31 4.70 - 05/27 [place] 6.10 [facility] BLOOD BANK ABO/Rh A POS 05/27 [place] RESULTS /2017 [facility] BLOOD BANK Antibody Negative 05/27 [place] RESULTS Scrn (05/27/17 1:34 AM) [facility] BLOOD BANK Platelet Product available 05/27 [place] RESULTS product (05/27/17 1:25 AM) /2017 [facility] CHEM PANEL eGFR 49 05/27 Result [place] /2017 Comment: The [facility] eGFR is calculated using the [...] 35.8 [place] CHEM PANEL eGFR 54 09/19 [facility] Comment: The Medical eGFR is Center calculated [...] AGAP 15.8 10.0 - 09/19 Result [facility] 20. Comment: Medical Collection Center date/time has been modified to: 15:35:00. Previous collection date/time: 16:41:00. CHEM PANEL Calcium Lvl 9.9 8.5 - 10.5 09/19 Result Javad Comment: Medical Collection Center date/time has been [...] 18 7 - 22 09/19 Result [facility] Comment: Medical Collection Center date/time has been modified to: 15:35:00. Previous collection date/time: 16:41:00. CHEM PANEL Sodium Lvl 144 135 - 145 09/19 Result [facility] Comment: Medical Collection Center date/time has been modified to: 15:35:00. Previous collection date/time: 16:41:00. CHEM PANEL Creatinine 1.31 0.50 - 09/19 Result [facility] 1.40 Comment: Medical Collection Center date/time has been modified to: 15:35:00. Previous collection date/time: 16:41:00. CHEM PANEL Potassium 3.8 3.5 - 5.1 09/19 Result [facility] Comment: Medical Collection Center date/time has been modified to: 15:35:00. Previous collection date/time: 16:41:00. Pathology Reports No Data Provided for This Section Diagnostic Reports Report Value Date Source Bladder US Bladder Ultrasound 05/27/2017 [facility] History: Hematuria - looking for blood [...] to earlier study. Bladder US EXAM: 05/27/2017 [facility] Urinary bladder ultrasound. CLINICAL HX: Hematuria. [...] -- Two subcentimeter ovo id foci of [id number]-qwlthsupg restricted diffusion, consistent with acute lacunar infarcts, [...] n outpatient basis. On 12/28/2016 4:30 PM [employer], a call was placed to to notify the referring clinician's office that this exam has important findings p otentially requiring urgent follow-up and to direct their attention to the report for details. There was no response after several attempts, and no voicemail option was available. Several unsuccessful attempts were subsequently m pierce to reach the patient at the provided number of [phone]. A generic message was left on the [...] edema, compression or myelomal acia. 4. Bilateral anterior/burning supervisor ior triangle and supraclavicular adenopathy, reactive or neoplastic. Correlate with history. 5. 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 SL: [id number] Spine Thoracic wo Patient Name: IDANIA TERRY 08/11/2016 PRECIOUS [place] contrast MRI : 1945; Age: 71 years y/o Male MR: [id number] Study: Spine Thoracic wo contrast MRI 08/11/2016 [...] canal stenosis or neural foraminal narrowing. SL: [id number] Spine cervical wo Study: Spine cervical wo contrast [facility] [place] [facility] Clinical Indication: G95.9 Disease of [...] of the cervical s keith cord. SL: [id number] Spine lumbar flex/ext EXAM: XR LUMBAR SPINE 3 VIEWS 07/20/2016 PRECIOUS Clements 2 view DX DATE: 07/20/2016 10:50 AM [...] Date Comments Source Heart Rate 63 05/29/2017 [place] Temperature Oral (F) 97.8 F 05/29/2017 [facility] [place] Respitory Rate 18 05/29/2017 [facility] [place] Systolic (mm Hg) 145 05/29/2017 [facility] [place] Diastolic (mm Hg) 83 05/29/2017 [place] and Respitory Rate 18 05/29/2017 [facility] [place] Heart Rate 64 05/29/2017 [place] Temperature Oral (F) 97.4 F 05/29/2017 [place] Systolic (mm Hg) 156 05/29/2017 [facility] [place] Diastolic (mm Hg) 86 05/29/2017 MH [place] and Respitory Rate 18 05/29/2017 [place] Temperature Oral (F) 98 F 05/29/2017 [place] Heart Rate 59 05/29/2017 [facility] [place] Systolic (mm Hg) 158 05/29/2017 [facility] [place] Diastolic (mm Hg) 69 05/29/2017 [place] L and BMI Calculated 27.32 05/27/2017 [place] Height 177.8 cm 05/27/2017 [place] Weight 86.364 05/27/2017 [place] Weight 89.545 05/27/2017 [facility] [place] Weight 90.909 12/28/2016 [facility] BMI Calculated 28.76 [facility]28[facility] Height 177.8 cm 12/28/[facility] Heart Rate 74 12/28/2016 [facility] Systolic (mm Hg) 163 12/28/2016 [facility] Jul[facility] Diastolic (mm Hg) 82 12/28/2016 [facility] Temperature Oral (F) 97.8 F 12/28/2016 [facility] Heart Rate 89 09/24/2016 [place] [facility] Temperature Oral (F) 97.5 F 09/24/2016 [facility] Respitory Rate 18 09/24/2016 [facility] juju Center Systolic (mm Hg) 176 09/24/2016 [facility] dical Center Diastolic (mm Hg) 83 [facility]/24[facility] [facility] 84 09/24/2016 [facility] Systolic (mm Hg) 143 09/24/2016 [facility] dical Center Diastolic (mm Hg) 73 09/24/2016 [facility] Respitory Rate 17 09/24/2016 [facility] Temperature Oral (F) 98.5 F 09/24/2016 [facility] Temperature Oral (F) 98.1 F 09/24/2016 [facility] Systolic (mm Hg) 146 09/24/2016 [facility] Diastolic (mm Hg) 79 09/24/2016 [facility] Respitory Rate 18 09/24/2016 [facility] Heart Rate 70 09/24/2016 [facility] BMI Calculated 29.48 09/22/2016 [facility] Weight 93.182 09/22/2016 [facility] Height 177.8 cm 09/22/2016 [facility] Weight 90.455 09/19/2016 [facility] BMI Calculated 28.61 09/19/2016 [facility] Height 177.8 cm 09/19/2016 [facility] Encounters Location Location Encounter Encounter Reason Attending ADM [place] Stat us Source Details Type Number For Provider Date Date Visit Outpatient [id number] TJ ALICIA 07/20 Acti ve [facility] Outpt Diag [id number] Tj Alicia 07/20 07/21 [facility] Outpt Diag [id number] Tj Alicia 08/11 08/12 [facility] [place] Out[place] [id number] TJ ALICIA 08/17 Acti ve [facility] Outpatient [id number] TJ ALICIA 09/19 [facility] [id number] TJ ALICIA 09/19 [facility] [id number] TJ ALICIA 09/22 Acti ve [facility] Observation [id number] Tj Alicia 09/22 09/24 [facility] Outpatient [id number] [place] 10/07 Active [facility] Outpatient [id number] TJ ALICIA 11/14 [facility] Phone [id number] 12/23 12/25 [facility] Message Neuro MNA Spine Phone [id number] 12/26 12/28 [facility] Message Neuro Outpatient [id number] TJ MICHEL 12/28 [facility] [facility] Outpatient [id number] Javi 12/28 12/29 [facility] 8 Aayush Neuro [facility] Outpt Diag [id number] Rufina 12/28 12/29 [facility] 0 [facility] MNA Spine Phone [id number] 01/02 01/04 [facility] Message Neuro [facility] Sp[facility] Phone [id number] 01/03 01/05 [facility] Message Neuro [facility]NA Spine Phone [id number] 01/16 01/18 [facility] Message Neuro Outpatient [id number] TJ MICHEL 02/13 [facility] [place] [facility]NA Spine Ambulatory [id number] Javi 02/13 02/13 [facility] Pre-Reg 7 Aayush Neur o MNA Spine Phone [id number] 03/15 03/17 [facility] TM Message Neuro [facility] [id number] Chata 05/27 05/29 Christel Clements [address] [place] MNA Spine Phone [id number] 09/06 09/08 [facility] TM Message Neuro Procedures Procedure Code Date Perfomer Comments Source Bladder irrigation, 35702 05/28/2017 [place] simple, lavage and/or instillation Bladder operation [id number] [facility], PRECIOUS Clements, OPID Scott, [facility] [place] Drainage [id number] [facility], PRECIOUS Clements, OPID Scott, OPID [facility] [place] Lymph node [id number] [facility] [place] Neuro,[facility], PRECIOUS Clements, TYRAD Scott, OPID [facility] [place] Assessment and Plan Assessment and Plan Date Source Extracted from:Title: Progress Note * 05/29/2017 DARREN Billy Author: Colton Angel MD Date: 05/29/17 Impression and Plan Gross hematuria with clot retention afte r urodynamics at [facility]. Patient has been on aspirin and Plavix, [...] and Plan Gross hematuria after urodynamics at [facility]. Patient was on aspirin and Plavix at [...] on: 05/27/17 Social History TypeResponse 09/19/2016 PRECIOUS [facility] Alcohol Current, Frequency: 1-2 times per year. Smoking Status Current every day smoker; Type: Cigars; Lives with someone who smokes; Cigarette Smoking Last 365 Days Yes; Reg Smoking Cessation Counseling No Social History TypeResponse 09/19/2016 [facility] Alcohol Current, Frequency: 1-2 times per year. [...]
--- OUTSIDE RECORDS SUMMARY | 2020-02-28 08:15 | XMS REPORT | Continuity of Care Document ---
:1945 Author Organization [facility] t Address [address] [place] [address] [place] [address] Care Team Providers Name Role Phone Ella [...] Expiration Date Sour ce Number MEDICAREMEDICARE A [id number] [facility] [id number] 2009- 00:00:00 - Medical PresentMedicare Center [facility] [id number] [facility] SUPPLEMENT/INDIVIDUALA 00:00:00 - Medical TRUONG/[facility][id number] /02/2019-PresentMedigap Problems Condition Condition Condition Status Onset [...] cerebrovas 00:00: Me dical cular cular 00 [place] accident accident (CVA) (CVA) LUMBAR Diagnosis Active 2016-10-17 Mem oria STENOSIS -14 14:47:00 l LUMBAR 00:00: Tyree STENOSIS 00 Active 08/19/2016 [facility] M54.16 - Diagnosis Active 2016-07-20 M emoria "RADICULOP 6-14 12:52:00 l ATHY, M54.16 - 00:01: Dieudonne n LUMBAR "RADICULOP 00 REGION" ATHY, LUMBAR REGION" Active 07/20/2016 PRECIOUS [place] Mitral Mitral Disease Active Almo valve valve 06-06 Methodi insufficie insufficie 00:00: st ncy ncy 00 Panlobular Panlobular Disease Active H jordan emphysema emphysema 06-06 Meth rosario 00:00: st 00 Peripheral Peripheral Disease Active H jordan vascular vascular 06-06 Method i disease disease 00:00: st 00 Pitting Pitting Disease Active Almo edema edema - Methodi 00:00: st 00 Myelopathy Myelopathy Disease Active H jordan of of 06-06 Methodi cervical cervical 00:00: st spinal spinal 00 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 radiculopa thy thy SVT SVT Disease Active Almo (supravent (supravent 06-06 Me thodi ricular ricular 00:00: st tachycardi tachycardi 00 a) a) 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 00:00: st 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) Hematoma Problem Resolve 2018-03-27 Me moria (disorder) d 14:50:09 l Hematoma Dieudonne n (disorder) Resolved Problem 03/27/2018 [facility], PRECIOUS Clements, PRECIOUS Chavez,M [facility] [place] Hypertensi Problem Active 2018-03-27 M emoria ve 14:50:09 l disorder, [place] systemic Hypertensi arterial ve (disorder) disorder, systemic arterial (disorder) Active Problem 03/27/2018 [facility], PRECIOUS Clements, PRECIOUS Chavez,M [facility] [place] Tobacco Tobacco Disease Active [facility] Obstructiv Problem 2017-2017-06-01 2017-06-01 Memoria e and 4-20 02:24:06 02:24:06 l reflux 05:00: Tyree uropathy, Obstructiv 00 unspecifie e and d reflux uropathy, unspecifie d 05/26/2017 06/01/2017 [place] Hematuria, Problem 2017-2017-06-01 2017-06-01 Memoria unspecifie 4-20 02:24:06 02:24:06 l d 05:00: [place] Hematuria, 00 unspecifie d 05/26/2017 06/01/2017 [place] History of Past Illness Condition Condition Condition [...] Date Stop Date Source Natural father Cancer Almo Me thodist Natural father Hypertension Almo Protestant Natural [facility] Natural mother Arthritis Almo Me thodist Natural mother [facility] Social History Social Habit Start Date Stop Date Quantity Comments Source History of tobacco Current smoker I St oleg - use [facility] Sex Assigned At [facility] Cigarettes smoked 2020-01-07 2020-01-[address] [facility] - current (pack per 00:00:00 00:00:00 Medical Center day) - Reported Cigarette 2020-01-07 2020-01-[address] [facility] - pack-years 00:00:00 00:00:[address] [facility] Tobacco use and 2020-01-07 2020-01-07 Never used [facility] kes - exposure 00:00:00 00:00:[address] [facility] Alcohol intake 2020-01-07 2020-01-07 Ex-drinker [facility] St Sonia es - 00:00:00 00:00:00 (finding) [facility] Social History 2016-09-19 2016-09-19 [facility] marlin 20:24:11 20:24:11 Alcohol Comment 2016-05-25 2016-05-25 rare Edward Ortiz ethodist 00:00:00 00:00:00 Smoking Status Start Date Stop Date Source Former smoker 2020-01-07 00:00:00 2020-01-07 00:00:[address] [facility] Social History 2016-07-21 10:16:13 [facility] Medications Ordered Filled Start Stop Current Ordering Indication Dosage Frequency Signature Comments Components Source Medication Medication Date Date Medication? Clinician (SIG) Name Name rosuvastati 2019-02 Yes 10mg Take [address] [facility] (CRESTOR) 30 by mouth Luke s - 10 MG 14:40: At bedtime Medica l tablet 15 . Center traMADoL 2019-02- Yes 50mg Take [address] (Ultram) 50 03-07-30 tablet (50 L ukes - mg tablet 00:00: 23:59 mg total) Me dical 00 :00 by mouth Center every 6 (six) hours as needed for Pain. Max Daily Amount: 200 mg aspirin 81 2019-02- Yes 81mg QD Take [address] MG EC 02-18 tablet (81 [facility]ukes - tablet 00:00: 23:59 mg total) Medic al 00 :00 by mouth Center daily. nebivoloL 2019-02 No 10mg QD Take 1 [facility] (BYSTOLIC) 02-18-12 tablet (10 Yaa kes - 10 MG 00:00: 23:59 mg total) Medica l tablet 00 :00 by mouth Center daily for 60 days. aspirin 81 2019-02 No 81mg QD Take [address] MG EC 02-18-12 tablet (81 [facility] - tablet 00:00: 00:00 mg total) Medic al 00 :00 by mouth Center daily. nebivoloL 2019-02 No 10mg QD Take 1 [facility] (BYSTOLIC) 02-18-12 tablet (10 Yaa kes - 10 MG 00:00: 00:00 mg total) Medica l tablet 00 :00 by mouth Center daily for 60 days. nebivolol 2019-02- No 10mg QD Take [address] (BYSTOLIC) 02-1712 by mouth Luke s - 10 MG 08:27: 00:00 daily Medical tablet 51 :00 Taken in Center AM. dilTIAZem 2019-02- No 240mg QD Take [address] (CARDIZEM 02-17 mg by [facility]ukes - CD) 240 MG 08:27: 00:00 mouth Medic al 24 hr 51 :00 daily. [place] capsule clopidogrel 2019-02- No 75mg QD Take [address] (PLAVIX) 75 02-17 by mouth Sonia es - mg tablet 08:27: 00:00 daily. Medic al 51 :00 Arena aspirin 81 2019-02 No 81mg QD Take [address] MG EC 02-17 by mouth [facility]ukes - tablet 08:27: 00:00 daily. Medical 51 :00 [place] VALSARTAN 2019-02- No 160mg QD Take [address] ORAL 02-17 mg by Lukes - 08:27: 00:00 mouth Medical 51 :00 daily . [place] nebivolol 2019-02- No 5mg QD Take [address] (BYSTOLIC) 02-17 by mouth Luke s - 5 MG tablet 08:27: 00:00 nightly. edical 51 :00 [place] clopidogreL 2019-02 No 75mg QD Take [address] (PLAVIX) 75 02-17 tablet (75 L ukes - mg tablet 00:00: 23:59 mg total) Me dical 00 :00 by mouth Center daily for 60 days. dilTIAZem 2019-02 No 60mg Take 1 [facility] [...] Center daily for 60 days. chlorhexidi 2019-02- No [facility] ne 1-04 11-12 [facility]ukes - (HIBICLENS) 11:16: 08:27 Medic al external 54 :48 Center liquid 4% chlorhexidi 2019-02 No Aneurysm of 1{bottl Apply [address] ne 0-30 10-30 infrarenal e} Bottle Lukes - gluconate 2 00:00: 23:59 abdominal topically Medical % Liqd 00 :00 aorta (HCC) once for 1 Center dose. valsartan-h 2019-02- No 1{tbl} QD Take [address] ydrochlorot 0-12 12-18 tablet by Yaa dejesus - hiazide 00:00: 00:00 mouth Medical (DIOVAN-HCT 00 :00 daily. Center ) 160-12.5 mg per tablet Docusate No Notes: Memoria Sodium 50 4-23 (Same as l MG / 22:00: Senokot-S) sennosides, 00 Equiv. to PENITENTIARY 8.6 MG Rachelle-Colac Oral Tablet e. Docusate Yes 1 tab, PO, Mem oria Sodium 50 4-23 BID, X 14 l MG / 17:38: day, # 28 [place] sennosides, 00 tab, 0 PENITENTIARY 8.6 MG Refill(s), Oral Tablet Pharmacy: [facility] ciprofloxac Yes 500 mg = 1 Memoria in 500 mg 4-23 tab, PO, l oral tablet 17:38: Q12H, X 7 H erm 00 day, # 14 tab, 0 Refill(s), Pharmacy: [facility] Cipro No Notes: May Memori a [...] 0 Memori a 4-22 Refill(s) l 15:24: [place] 00 nebivolol Yes 10 mg = 1 Mem oria 10 MG Oral 4-22 tab, PO, l Tablet 15:24: Daily, 0 [place] [Bystolic] 00 Refill(s) Bystolic No Notes: Memoria 4-22 (same as: l 14:00: Bystolic) Tyree Crestor No Notes: Memoria 4-22 (Same As: l 02:00: Crestor) [place] Docusate No Notes: Memoria 4-21 (Same as: l 14:00: Colace) [place] (Do Not Crush) Lisinopril No Notes: Memor ia 4-21 (Same as: l 14:00: Prinivil, Tyree Zestril) Clonidine No Notes: Memori a Hydrochlori 4-21 (Same As: l de 0.1 MG 14:00: Catapres) Her garcia Oral Tablet 00 Hydralazine No Notes: Juan Alberto verónica 4-21 (Same as: l 09:19: Apresoline [place] 00 ) Push over 5 minutes Cataflam No 50 mg = 1 Juan Alberto verónica 4-21 tab, PO, l 08:46: TID, PRN pain, # 30 tab, 0 Refill(s) Acetaminoph No Notes: Do M emoria en 4-21 not exceed l 07:05: 4 gm/day. [place] (Same as: Tylenol) Acetaminoph No Notes: Juan Alberto verónica en 325 MG / 4-21 (Same as: l Hydrocodone 07:05: [place] nn Bitartrate 00 325/5) Do 5 MG Oral not exceed Tablet 4gm/day of acetaminop hen. Morphine No Notes: Memoria 4-21 (Same l 07:05: as:MORPhin [place] 00 e Sulfate) Ondansetron No Notes: Juan Alberto verónica 4-21 (Same as: l 07:05: Zofran) [place] MEDICATION WASTE Product Size: 4 mg Product Wasted: ___ mg Irrigation No Notes: For M emoria w/ Normal 4-21 irrigation l Saline 07:00: only. [place] 00 Sodium No Notes: For Memor ia Chloride -21 irrigation l 0.0769 07:00: only. [place] MEQ/ML 00 Irrigation Solution Sodium No 250 mL, Memoria Chloride 05-27 Rate: To l 0.9% 06:25: prime line [place] (titrate) 00 and flush 250 mL remaining blood products., Dosing Weight 89.545, kg, Route: IV, Total Volume: 250, Start Date: 05/27/17 1:25:00 CDT, Duration: 30 day, Stop date: 06/26/17 1:24:00 CDT, Replace Every: 24 hr Irrigation No Notes: For M emoria w/ Normal 4-21 irrigation l Saline 05:58: only. [place] 00 Irrigation No Notes: For M emoria w/ Normal 4-21 irrigation l Saline 04:45: only. Tyree 00 Saline No Notes: Memoria Flush 0.9% 05-27 (Same as: l 04:12: BD Tyree 00 Posiflush) Phenazopyri No 100 mg = [...] TAB, 5 MG Oral Dosing Tablet Weight [[place] 89.545, 5/325] kg, ONCE, STAT, Start date: 05/26/17 20:45:00 CDT, Stop date: 05/26/17 20:45:00 CDT Morphine No 4 mg, Memoria 05-27 Route: l 01:16: IVP, ONCE, Dosing Weight 89.545, kg, Priority: STAT, Start date: 05/26/17 20:16:00 CDT, Stop date: 05/26/17 20:16:00 CDT Morphine No 4 mg, Memoria 05-27 Route: l 00:36: IVP, ONCE, Dosing Weight 89.545, kg, Priority: STAT, Start date: 05/26/17 19:36:00 CDT, Stop date: 05/26/17 19:36:00 CDT aspirin Yes Cerebral 81mg QD [place] (ECOTRIN) 3-19 infarction, Met hodi enteric 17:00: unspecified st 00 mechanism tablet 81 (HCC) mg clopidogrel Yes 75mg QD Take 75 mg Leon (PLAVIX) 75 3-19 by mouth Meth rosario mg tablet 15:18: daily. 47 CARTIA XT Yes TK 1 C PO Juana ston 240 mg 24 2-08 QD Methodi hr capsule 00:00: BYSTOLIC 10 Yes TK 1 T PO [place] mg tablet 1-30 QD Methodi 00:00: 00 diltiazem No Notes: DO Mem oria 09-24 NOT CRUSH. l 13:38: Lisinopril No Notes: Memor ia 18 (Same as: l 14:00: Prinivil, Zestril) Famotidine [...] MG Oral # 90 tab, Tablet 0 [[place] Refill(s) 10/325] Methocarbam Yes 500 mg = 1 Memoria ol 500 MG 8-18 tab, PO, l Oral Tablet 10:44: Q8H, PRN He rmann [Robaxin] 00 Spasms, X 10 day, # 30 tab, 0 Refill(s) { Yes See Memoria (Methylpred 8-18 Instructio l nisolone 4 10:44: ns, PO, Herm torin MG Oral 00 Take by Tablet mouth as [Medrol]) } directed Pack on label., [Medrol # 1 Pack, Dosepak] 0 Refill(s) Flomax No Notes: Memoria 8-18 (Same As: l 06:28: Flomax) "Do Not Crush" Cefazolin No Notes: Memori a -18 (Same As: l 03:00: Ancef, Kefzol) Cefazolin FOR IV SET ONLY MEDICATION WASTE Product Size: 1000 mg Product Wasted: _0__ mg Saline No Notes: Memoria Flush 0.9% 18 (Same as: l 02:00: BD Posiflush) Dexamethaso No Notes: Juan Alberto verónica ne - Give with l 23:00: food. (Same As: Decadron) Famotidine No Notes: Memor ia 20 MG Oral 09-22 (Same as: l Tablet 22:00: Pepcid) Docusate No Notes: Memoria 8-17 (Same as: l 22:00: Colace) (Do Not Crush) sennosides, No Notes: Juan Alberto verónica PENITENTIARY -17 (Same as: l 22:00: Senokot) Clonidine No [...] not exceed l Hydrocodone 21:11: 4gm/day of [place] Bitartrate 00 acetaminop 10 MG Oral hen. Tablet (Same as: [[place] 10/325] 325/10) Dilaudid No Notes: Memoria 09-22 Same as: l 21:11: Dilaudid [place] Bisacodyl No Notes: Memori a 09-22 (Same As: l 21:11: Dulcolax, [place] Bisco-Lax) phenol No Notes: Memoria 09-22 Chlorasept l 21:11: ic [place] Tyree (Same as: Chlorasept ic, Sore Throat [place]) WASTE: F/P - Black; E - Municipal Trash Bin Melatonin 3 No Notes: Juan Alberto verónica MG Extended 09-22 (Same as: l Release 21:11: Melatonin) Herm torin Tablet 00 Benadryl No Notes: Memoria 09-22 (Same as: l 21:11: Benadryl) Tyree ceFAZolin No Notes: Memori a 09-22 Same as: l 08:00: Ancef [place] rosuvastati Yes TK 1 T PO [place] n (CRESTOR) 3-22 QD Methodi 10 MG 00:00: st tablet 00 Vital Signs Vital Name Observation Time Observation Value Comments Source Systolic blood 2020 14:00:00 140 mm[Hg] [facility] Diastolic blood 2020 14:00:00 66 mm[Hg] [facility] Heart rate 2020 14:00:00 58 /min [facility] Respiratory rate 2020 14:00:00 18 /min [facility] Oxygen saturation in 2020 13:00:00 98 /min [facility] - Arterial blood by Medical Ce nter Pulse oximetry Body temperature 2020 11:52:00 48 Alexia [facility] Body height 2020 08:39:00 180.3 cm [facility] Body weight 2020 08:39:00 85.276 kg [facility] BMI 2020 08:39:00 26.23 kg/m2 [facility] Heart Rate 2017-05-29 16:49:00 [facility] [place] Temperature Oral (F) 2017-05-29 16:49:00 97.8 F [facility] [place] Respitory Rate 2017-05-29 16:49:00 Memori al [place] Systolic (mm Hg) 2017-05-29 16:49:00 Juan Alberto rial [place] Diastolic (mm Hg) 2017-05-29 16:49:00 Mem orial [place] Respitory Rate 2017-05-29 13:20:00 Memori al [place] Heart Rate 2017-05-29 13:20:00 [facility] [place] Temperature Oral (F) 2017-05-29 13:20:00 97.4 F [facility] [place] Systolic (mm Hg) 2017-05-29 13:20:00 Juan Alberto rial [place] Diastolic (mm Hg) 2017-05-29 13:20:00 Mem orial [place] Respitory Rate 2017-05-29 08:34:00 Memori al [place] Temperature Oral (F) 2017-05-29 08:34:00 98 F [facility] [place] Heart Rate 2017-05-29 08:34:00 [facility] [place] Systolic (mm Hg) 2017-05-29 08:34:00 Juan Alberto rial [place] Diastolic (mm Hg) 2017-05-29 08:34:00 Mem orial [place] BMI Calculated 2017-05-27 08:46:00 Memori al [place] Height 2017-05-27 08:46:00 177.8 cm [facility] [place] Weight 2017-05-27 08:46:00 [facility] [place] Weight 2017-05-27 00:09:00 [facility] [place] Weight 2016-12-28 18:56:00 [facility] [place] BMI Calculated 2016-12-28 18:56:00 Memori al [place] Height 2016-12-28 18:56:00 177.8 cm [facility] [place] Heart Rate 2016-12-28 18:56:00 [facility] [place] Systolic (mm Hg) 2016-12-28 18:56:00 Juan Alberto rial [place] Diastolic (mm Hg) 2016-12-28 18:56:00 Mem orial [place] Temperature Oral (F) 2016-12-28 18:56:00 97.8 F [facility] [place] Heart Rate 2016-09-24 12:50:00 [facility] [place] Temperature Oral (F) 2016-09-24 12:50:00 97.5 F [facility] [place] Respitory Rate 2016-09-24 12:50:00 Memori al [place] Systolic (mm Hg) 2016-09-24 12:50:00 Juan Alberto rial [place] Diastolic (mm Hg) 2016-09-24 12:50:00 Mem orial [place] Heart Rate 2016-09-24 08:43:00 [facility] [place] Systolic (mm Hg) 2016-09-24 08:43:00 Juan Alberto rial [place] Diastolic (mm Hg) 2016-09-24 08:43:00 Mem orial [place] Respitory Rate 2016-09-24 08:43:00 Memori al [place] Temperature Oral (F) 2016-09-24 08:43:00 98.5 F [facility] [place] Temperature Oral (F) 2016-09-24 04:44:00 98.1 F [facility] [place] Systolic (mm Hg) 2016-09-24 04:44:00 Juan Alberto rial [place] Diastolic (mm Hg) 2016-09-24 04:44:00 Mem orial [place] Respitory Rate 2016-09-24 04:44:00 Memori al [place] Heart Rate 2016-09-24 04:44:00 [facility] [place] BMI Calculated 2016-09-22 15:39:00 Memori al [place] Weight 2016-09-22 15:39:00 [facility] [place] Height 2016-09-22 15:39:00 177.8 cm [facility] [place] Weight 2016-09-19 20:20:00 [facility] [place] BMI Calculated 2016-09-19 20:20:00 Memori al [place] Height 2016-09-19 20:20:00 177.8 cm [facility] [place] Procedures Procedure Date / Time Performing Clinician Source Performed POCT-ACT 2020 11:24:00 Colton Bolanos [facility] ECG 12-LEAD 2020 10:50:42 Vane Downs [facility] ANGIOGRAM,CORONARY 2020 10:04:00 Colton Bolanos [facility] CARDIAC CATH REPORT - 2020 00:00:00 Juan A Momin [facility] SARS-COV2/RT-PCR ([facility] & 2020-01-03 10:25:00 Colton Bolanos [facility] - REF LABS) [facility] POCT-GLUCOSE METER 2019-12-19 07:18:00 Oneil [facility] BASIC METABOLIC PANEL (7) 2019-12-19 04:49:00 Kalia Hagen [facility] MAGNESIUM 2019-12-19 04:49:00 Xiao [facility] PHOSPHORUS 2019-12-19 04:49:00 [facility] CBC (HEMOGRAM ONLY) 2019-12-19 04:49:00 Irvin Mills [facility] POCT-GLUCOSE METER 2019-12-18 21:00:00 Oneil [facility] POCT-GLUCOSE METER 2019-12-18 16:56:00 [facility]SE METER 2019-12-18 11:16:[address] [facility] ECG 12-LEAD 2019-12-18 08:29:14 Unknown, Hl7 [facility] POCT-GLUCOSE METER 2019-12-18 07:37:00 Oneil [facility] SARS-COV2/RT-PCR ([facility] & 2019-12-18 05:39:00 [facility] - REF LABS) [facility] BASIC METABOLIC PANEL (7) 2019-12-18 05:24:00 Kalia Hagen [facility] MAGNESIUM 2019-12-18 05:24:00 [facility] 2019-12-18 05:24:00 Xiao [facility] CBC (HEMOGRAM ONLY) 2019-12-18 05:24:00 [facility] POCT-GLUCOSE METER 2019-12-17 21:25:00 [facility]SE METER 2019-12-17 16:03:00 Costre [facility] POCT-GLUCOSE METER 2019-12-17 11:59:00 Coselli [facility] POCT-GLUCOSE METER 2019-12-17 07:49:00 [facility] BASIC METABOLIC PANEL (7) 2019-12-17 05:11:00 Kalia Hagen [facility] MAGNESIUM 2019-12-17 05:11:00 Xiao [facility] PHOSPHORUS 2019-12-17 05:11:00 Sanjana [facility] CBC (HEMOGRAM ONLY) 2019-12-17 05:11:00 [facility] POCT-GLUCOSE METER 2019-12-16 21:16:00 Coselli [facility] POCT-GLUCOSE METER 2019-12-16 16:18:00 Oneil [facility] POCT-GLUCOSE METER 2019-12-16 12:02:00 Costre [facility] POCT-GLUCOSE METER 2019-12-16 07:39:00 [facility] BASIC METABOLIC PANEL (7) 2019-12-16 05:13:00 Kalia Hagen [facility] MAGNESIUM 2019-12-16 05:13:00 Xiao [facility] PHOSPHORUS 2019-12-16 05:13:00 Agejose a [facility] APTT 2019-12-16 05:13:00 Oneil [facility] CBC (HEMOGRAM ONLY) 2019-12-16 05:13:00 Renny [facility] POCT-GLUCOSE METER 2019-12-15 21:20:00 [facility] 2019-12-15 04:14:00 [facility] BASIC METABOLIC PANEL (7) 2019-12-15 04:10:00 Juan Lawson [facility] MAGNESIUM 2019-12-15 04:10:00 Renny [facility] PHOSPHORUS 2019-12-15 04:10:00 Renny [facility] CBC (HEMOGRAM ONLY) 2019-12-15 04:09:00 Rneny [facility] PREPARE RBC 2019-12-14 23:54:00 [facility] PO[facility]-GLUCOSE METER 2019-12-14 22:34:00 [facility] AP[facility] 2019-12-14 21:01:00 Efrain Barajas [facility] POCT-GLUCOSE METER 2019-12-14 18:05:00 [facility] AP[facility] 2019-12-14 14:42:00 Renny [facility] BASIC METABOLIC PANEL (7) 2019-12-14 13:58:00 Irvin Mills [facility] MAGNESIUM 2019-12-14 13:58:00 Irvin Mills [facility] POCT-GLUCOSE METER 2019-12-14 13:47:00 [facility] POCT-GLUCOSE METER 2019-12-14 09:00:00 [facility] APTT 2019-12-14 07:52:00 Renny [facility] XR CHEST 1 VIEW 2019-12-14 07:50:00 Joauqina TariqIrvin [facility] PORTABLE/BEDSIDE [facility] BLOOD GAS, ARTERIAL 2019-12-14 05:07:00 Agejose a [facility] APTT 2019-12-14 05:07:00 Juan Lawson [facility] CBC (HEMOGRAM ONLY) 2019-12-14 03:28:00 Juan Lawson [facility] BASIC METABOLIC PANEL (7) 2019-12-14 03:28:00 Juan Lawson [facility] MAGNESIUM 2019-12-14 03:28:00 [facility] PHOSPHORUS 2019-12-14 03:28:00 Renny [facility] POCT-GLUCOSE METER 2019-12-13 23:24:[address] [facility] XR CHEST 1 VIEW 2019-12-13 23:20:00 Sanjana [facility] - PORTABLE/BEDSIDE [facility] BLOOD GAS, ARTERIAL 2019-12-13 23:12:00 [facility] CALCIUM, IONIZED 2019-12-13 23:12:00 [facility] CBC (HEMOGRAM ONLY) 2019-12-13 23:10:00 Sanjana [facility] BASIC METABOLIC PANEL (7) 2019-12-13 23:10:00 Kalia H[facility] APTT 2019-12-13 23:10:00 [facility] PROTHROMBIN TIME/INR 2019-12-13 23:10:00 [facility] PHOSPHORUS 2019-12-13 23:10:00 Xiao [facility] MAGNESIUM 2019-12-13 23:10:00 [facility] PO[facility]-ACT 2019-12-13 21:38:00 [facility]-ACT 2019-12-13 20:51:00 [facility] CALCIUM, IONIZED 2019-12-13 20:48:35 Javier [facility] BLOOD GAS, ARTERIAL 2019-12-13 20:48:35 Javier [facility] SODIUM NA-STAT LAB 2019-12-13 20:48:35 Javier POTASSIUM-STAT LAB 2019-12-13 20:48:35 Javier GLUCOSE-STAT LAB 2019-12-13 20:48:35 Javier [facility] HGB/HCT (H&H) - STAT LAB 2019-12-13 20:48:35 Javier [facility] POCT-ACT 2019-12-13 20:17:00 [facility] TRANSFUSE LEUKO-REDUCED 2019-12-13 19:48:17 Javier [facility] - RED BLOOD CELLS [facility] TRANSFUSE LEUKO-REDUCED 2019-12-13 19:46:32 Javier [facility] - RED BLOOD CELLS [facility] POCT-ACT 2019-12-13 19:37:00 [facility] CALCIUM, IONIZED 2019-12-13 19:31:54 Javier [facility] BLOOD GAS, ARTERIAL 2019-12-13 19:31:54 Javier [facility] SODIUM NA-STAT LAB 2019-12-13 19:31:54 Javier POTASSIUM-STAT LAB 2019-12-13 19:31:54 Javier GLUCOSE-STAT LAB 2019-12-13 19:31:54 Javier [facility] HGB/HCT (H&H) - STAT LAB 2019-12-13 19:31:54 Sarah Herreraed [facility] POCT-ACT 2019-12-13 18:54:00 Delano [facility] CALCIUM, IONIZED 2019-12-13 18:18:55 [facility] 2019-12-13 18:18:55 [facility]LO[facility], ARTERIAL 2019-12-13 18:18:55 [facility] NA-[facility] 2019-12-13 18:18:55 [facility]OT[facility] 2019-12-13 18:18:55 [facility] GLUCOSE-[facility] 2019-12-13 18:18:55 [facility] ([facility]&H) - STAT LAB 2019-12-13 18:18:55 [facility] ANGIO[facility]-LOWER EXTREMITY 2019-12-13 17:10:00 [facility] THROMBECTOMY-LOWER 2019-12-13 17:10:00 [facility] HC ARTERIAL DOPPLER LEGS 2019-12-13 12:51:00 Irvin Mills CH I [facility] WINTER [facility] HC ARTERIAL(RAFIQ W 2019-12-13 12:51:00 Delano [facility] es - DOPPLER)ONLY [facility] URINE CULTURE 2019-12-13 11:33:00 [facility] URINALYSIS W/ REFLEX 2019-12-13 11:33:00 Bleckley, John [facility] - URINE CULTURE [facility] BASIC METABOLIC PANEL (7) 2019-12-13 11:31:00 Irvin Mills [facility] MAGNESIUM 2019-12-13 11:31:00 Bleckley, [facility] PHOSPHORUS 2019-12-13 11:31:00 [facility] PROTHROMBIN TIME/INR 2019-12-13 11:31:00 [facility] APTT 2019-12-13 11:31:00 [facility] CBC W/PLT COUNT & AUTO 2019-12-13 11:31:00 [facility] DIFFERENTIAL [facility] XR CHEST 1 VIEW 2019-12-13 11:20:00 [facility] PORTABLE/BEDSIDE [facility] POCT-ACT 2019-12-13 10:38:00 [facility] 2019-12-13 09:24:00 [facility] POCT-ACT 2019-12-13 09:10:00 [facility] CALCIUM, IONIZED 2019-12-13 08:13:27 Isidoro Pierce [facility] BLOOD GAS, ARTERIAL 2019-12-13 08:13:27 Isidoro Pierce I [facility] SODIUM NA-STAT LAB 2019-12-13 08:13:27 Isidoro Pierce [facility] POTASSIUM-STAT LAB 2019-12-13 08:13:27 Isidoro Pierce [facility] GLUCOSE-STAT LAB 2019-12-13 08:13:27 Isidoro Pierce [facility] HGB/HCT (H&H) - STAT LAB 2019-12-13 08:13:27 Isidoro Pierce [facility] REPAIR,EVAR-ENDOVASCULAR 2019-12-13 07:03:00 [facility] ANEURYSM [facility] BASIC METABOLIC PANEL (7) 2019-12-13 04:22:00 Kvng-Smart, Simah [facility] HEMOGLOBIN A1C 2019-12-13 04:22:00 Casey Lo [facility] CBC W/PLT+MANUAL DIFF 2019-12-13 04:22:00 [facility] MAGNESIUM 2019-12-13 04:22:00 [facility] PHOSPHORUS 2019-12-13 04:22:00 Renny [facility] CBC WITH PLATELET COUNT + 2019-12-13 04:22:00 SanjanaSusananoah [facility] - MANUAL DIFF [facility] (CELLAVISION MANUAL DIFF) 2019-12-13 04:22:00 XiaoSusananoah [facility] PREPARE RBC 2019-12-12 22:21:00 [facility] POCT-GLUCOSE METER 2019-12-12 21:26:00 [facility] PROT[facility] TIME/INR 2019-12-12 18:32:00 Kvng-SmartAidee [facility] POCT-GLUCOSE METER 2019-12-12 16:40:00 [facility] BASIC METABOLIC PANEL (7) 2019-12-12 16:27:00 Kerry [facility] VASCULAR DIAGRAM -SCAN 2019-12-12 00:00:00 Provider, Juan A [facility] ANTIBODY IDENTIFICATION 2019-12-11 16:23:00 Kerry [facility] HC CAROTID DOPPLER WINTER 2019-12-11 13:52:00 Kerry [facility] XR CHEST 2 VIEWS 2019-12-11 12:33:00 Kerry [facility] ECG 12-LEAD 2019-12-11 12:01:53 Unknown, Hl7 Doctor [facility] SARS-COV2/RT-PCR ([facility] & 2019-12-11 11:49:00 Oneil [facility] - REF LABS) [facility] BASIC METABOLIC PANEL (7) 2019-12-11 10:38:00 Kerry [facility] HC LAB HIV-1 AG W/HIV-1&2 2019-12-11 10:38:00 Lo, [facility] ALBUMIN 2019-12-11 10:38:00 Lo, [facility] ALKALINE PHOSPHATASE 2019-12-11 10:38:00 Lo, [facility] BILIRUBIN, ADULT TOTAL 2019-12-11 10:38:00 Lo, [facility] BILIRUBIN, DIRECT 2019-12-11 10:38:00 Lo, [facility] AST (SGOT) 2019-12-11 10:38:00 Lo, [facility] ALT (SGPT) 2019-12-11 10:38:00 Lo, [facility] PROTEIN, TOTAL 2019-12-11 10:38:00 Lo, [facility] PROTHROMBIN TIME/INR 2019-12-11 10:38:00 Lo, [facility] APTT 2019-12-11 10:38:00 Lo, [facility] RETICULOCYTE COUNT 2019-12-11 10:38:00 Lo, [facility] HEPATITIS B PANEL 2019-12-11 10:38:00 Lo, [facility] AMYLASE 2019-12-11 10:38:00 Lo, [facility] LIPASE 2019-12-11 10:38:00 Lo, [facility] HEPATITIS C ANTIBODY 2019-12-11 10:38:00 Lo, [facility] URINALYSIS W/ MICROSCOPIC 2019-12-11 10:38:00 Lo, [facility] LACTATE DEHYDROGENASE 2019-12-11 10:38:00 Lo, [facility] HEMOGLOBIN A1C 2019-12-11 10:38:00 Radha Osorio [facility] TYPE AND SCREEN, 2019-12-11 10:38:00 [facility] ([facility]ARTH[facility]DIRECT 2019-12-11 10:38:00 Lo, [facility] CBC W/PLT COUNT & AUTO 2019-12-11 10:38:00 Lo, [facility] (CELLAVISION MANUAL DIFF) 2019-12-11 10:38:00 Lo, [facility] SPIROMETRY 2019-11-21 10:30:00 Lo, [facility] CTA ABDOMEN & PELVIS 2019-11-05 08:01:00 Lo, [facility] CTA CHEST 2019-11-05 08:01:00 Lo, [facility] POCT-CREATININE 2019-11-05 07:25:00 Lo, [facility] Bladder irrigation, 2017-05-28 16:15:00 [facility] simple, lavage and/or instillation Bladder operation [facility] nn Drainage [facility] Lymph node operation [facility] Plan of Care Planned Activity Planned Date Details Comments Source Future Scheduled 2020-02-[address] [facility] - Test 00:00:00 (12+) [code = Medical Center DEPRESSION SCREENING (12+)] Future Scheduled 2019-10-08 INFLUENZA VACCINE (#1) [facility] 00:00:00 [code = INFLUENZA Medical Ce nter VACCINE (#1)] Future Scheduled 2019-09-07 INFLU[facility]ZA VACCINE [facility] Test 00:00:00 [code = INFLUENZA VACCINE] Future Scheduled 2010-12-[address] [facility] [facility] - Test 00:00:00 WELLNESS (YEAR 2 or Medical Center FIRST YEAR if no IPPE) [code = MEDICARE ANNUAL WELLNESS (YEAR 2 or FIRST YEAR if no IPPE)] Future Scheduled 2010 65+ PNEUMOCOCCAL [facility] Test 00:00:00 VACCINE (1 of 1 - PPSV23) [code = 65+ PNEUMOCOCCAL VACCINE (1 of 1 - PPSV23)] Future Scheduled 2010 PNEUMOCOCCAL 65+ YRS [facility] - Test 00:00:00 (1 of 1 - Medical Center AOUG02_Dtxzxvj PCV13) [code = PNEUMOCOCCAL 65+ YRS (1 of 1 - WNYI94_Eidmbjj PCV13)] Future Scheduled 1995 COLONOSCOPY SCREENING [place] [facility] Test 00:00:00 [code = COLONOSCOPY SCREENING] Future Scheduled 1995 SHINGLES VACCINES (#1) [place] [facility] Test 00:00:00 [code = SHINGLES VACCINES (#1)] Future Scheduled 1961 COVID-19 VACCINE (1 of [place] [facility] Test 00:00:00 2) [code = COVID-19 VACCINE (1 of 2)] Future Scheduled [address] [facility] - Test 00:00:00 malignant neoplasm of Medica l Center colon (procedure) [code = 361953139] Encounters Start End Encounter Admission Attending Care Care Encounter Source Date/Time Date/Time Type Type Clinicians Facility Department ID 2019-12-26 2019-12-26 Office [place] Bolanos [id number] 11:13:47 11:28:47 Visit [place] AMBULATOR 350.1.13.21 Riki Penn [id number] 2018-10-16 2018-10-16 Orders Doctor IRVIN [id number] 00:00:00 00:00:00 Only Unassigned, [facility]AD[facility] 350.1.13.10 [facility] 4.2.7.2.686 [id number] 2018-09-10 2018-09-10 Orders Doctor BRYAN [id number] 00:00:00 00:00:00 Only UnassignedAMADOR 350.1.13.10 [facility] 4.2.7.2.686 [id number] 2017-09-06 2017-09-07 Outpatient MHMISCHER MHMISCHER [id number] 13:27:00 23:59:59 13 2017-05-26 2017-05-29 [place] [id number] 19:05:00 16:01:00 Chata Chowdhury 2017-03-15 2017-03-16 Outpatient MHMISCHER MHMISCHER [id number] 16:21:00 23:59:59 12 2017-02-13 2017-02-13 Outpatient Tj Alicia MHMISCHER MHMISCHER [id number] 08:45:00 08:45:00 Hwan 2017-02-13 2017-02-13 Outpatient Tj Alicia MHMISCHER MHMISCHER [id number] 08:45:00 08:45:00 Hwan 2017-02-13 2017-02-13 Outpatient Tj Alicia MHMISCHER MHMISCHER [id number] 08:45:00 08:45:00 Hwan 2017-01-16 2017-01-17 Outpatient MHMISCHER MHMISCHER [id number] 11:51:00 23:59:59 11 2017-01-03 2017-01-04 Outpatient MHMISCHER MHMISCHER [id number] 11:44:00 23:59:59 10 2017-01-02 2017-01-03 Outpatient MHMISCHER MHMISCHER [id number] 15:19:00 23:59:59 09 2016-12-28 2016-12-28 Outpatient Tj Alicia MHMISCHER MHMISCHER [id number] 08:00:00 23:59:59 an 2016-12-28 2016-12-28 Outpatient Azar [id number] 14:30:00 23:59:00 Rufina [id number] Ingrid [id number] [id number] 2016-12-26 2016-12-27 Outpatient MHMISCHER MHMISCHER [id number] 09:23:00 23:59:59 08 2016-12-23 2016-12-24 Outpatient MHMISCHER MHMISCHER [id number] 09:42:00 23:59:59 07 2016-09-22 2016-09-24 [id number] 16:11:00 11:45:00 Hwan 2016-08-11 2016-08-11 Outpatient Tj Alicia MHOIP MHOIP [id number] 16:55:00 23:59:00 Hwan 2016-07-20 2016-07-20 [id number] 10:41:00 23:59:00 Hwan 00 Results Test Description Test Time Test Results Result Source Comments Comments CARDIAC CATH Ordered by an unspecified [facility] - SCAN 3 provider. [facility] - 12:09:17 Medical Center ECG 12 lead 2019-12-10 Interface, External Ris [facility] 0 In - 2020 1:29 PM Lu - 13:28:55 CSTVentricular Rate 51 Me dical BPMAtrial Rate 166 BPMQRS Center Duration 92 msQ-T Interval 524 msQTC Calculation(Bazett) 482 msP [place] 41 degreesR [place] -6 degreesT [place] 56 degreesSinus bradycardiaCannot rule out Anterior infarct , age undeterminedProlonged QTAbnormal ECG11 DEC 2019Sinus bradycardia replaced AVNRTST no longer depressed precordial leadsQT has shortenedConfirmed by MD MUSHTAQ, RADHA ([id number]) on 2020 1:28:53 PM POC ACTIVATED CLOTTING TIME 2020 11:45:00 Test Item Value Reference Range Interpretation Comme nts Activated Clotting Time (test 252 sec : 74-137 seconds, Baseline: TESTED AT code = 441) [facility] [address] [place] [address], [address]: City Carrier/Techni rigoberto ID = [id number] for GREGG, CLAU [facility][id number] 11:45:00 Test Item Value Reference Range Interpretation Comments ACTIVATED CLOTTING TIME 252 sec : 74 -137 seconds, (BEAKER) (test code = Baseli ne: TESTED AT 441) [facility] [address] [place] [address], 7[address]: City Carrier/Techni rigoberto ID = [id number] for [place] NDE, CLAU SARS-CoV2/RT-PCR ([facility] & Ref Labs)2020-01-03 17:54:00 Test Item Value Reference Range Interpretation Comments SARS-COV2/RT-PCR Negative Not Detected, (test code = Negative, See 57[address]-9) external report for linked test SARS-COV-2 [facility] GENEVIEVE PERFORMING LAB (test code = 73228-4) AMRITA (test code = Negative result for [...] of the Act. Fact Sheet for Healthcare Providers:https://www.Placecast idel.SMRxT/sites/default/f odalys/product/documents/F act_Sheet_HC_Providers_L dog_KPNV-DqW-6.pdf Fact Sheet for Healthcare Patients:https://www.krzysztof del.SMRxT/sites/default/fi les/product/documents/Fa ct_Sheet_Patients_Lyra_S ARS-CoV-2.pdf Performing Laboratory:[facility] [place] [address] [facility] ([facility] & REF LABS)2020-01-03 17:54:00 Test Item Value Reference Range Interpretation Comments SARS-COV2/RT-PCR (test Negative Not Detected, Negative, code = 6804096) See external report for linked test SARS-COV-2 PERFORMING LAB [facility] GENEVIEVE (test code = 8984095) Negative result for this test determines that [...] 564(g) of the Act.Fact Sheet for Healthcare Providers:https://www.Placecastidel.com/sites/default/files/product/documents/Fact_Shee n_JW_Grksuwwtj_Gfot_FAMI-ElB-1.pdfFact Sheet for Healthcare Patients:https://www.Placecastidel.com/sites/default/files/product/ documents/Rrxx_Euijp_Hxbjihif_Kssp_FPMM-XhV-8.pdfPerforming Laboratory:[facility], [place] [address]PFRYIDHS DIAGRAM -[id number] 10:07:56Ordered by an unspecified provider.[facility] ([facility] & REF LABS)2019-12-19 10:14:00 Test Item Value Reference Range Interpretation Comments SARS-COV2/RT-PCR (test Negative Not Detected, Negative, code = 9299097) See external report for linked test SARS-COV-2 PERFORMING LAB [facility] GENEVIEVE (test code = 0324985) Negative result for this test determines that [...] 564(g) of the Act.Fact Sheet for Healthcare Providers:https://www.Framebridge.SMRxT/sites/default/files/product/documents/Fact_Shee e_RC_Kdnmtxgjt_Dpwn_DEGQ-AhK-6.pdfFact Sheet for Healthcare Patients:https://www.quidel.com/sites/default/files/product/ documents/Zmvj_Gaexm_Hjtshhum_Mbom_FMGI-NgM-7.pdfPerforming Laboratory:[facility], [place] [address]CTQ-Umdtsnh meter 2019-12-19 07:30:00 Test Item Value Reference Range Interpretation Comments POC-Glucose Meter (test 121 mg/dL 70-110 H : TE STED AT [facility] code = 1538) [address] [facility], [address]: City Carrier/Techni rigoberto ID = [id number] for YESSI VERGARA Lab Interpretation (test Abnormal code = 28536-8) [facility] [id number] 07:30:00 Test Item Value Reference Range Interpretation Comments POC-GLUCOSE METER 121 mg/dL 70-110 H : TESTED A T [facility] 6720 (BEAKER) (test code = HAYDEN Rob [facility], 1538) [address]: City Carrier/Techni rigoberto ID = [id number] for YESSI BROWN Basic Metabolic [id number] 07:06:00 Test Item Value Reference Range Interpretation Comments Sodium (test code = 140 meq/L 228-244 2139-2) Potassium (test code = 3.7 meq/L 3.5-5.1 2823-3) Chloride (test code = 109 meq/L 98-107 H 2075-0) CO2 (test code = 25 meq/L 22-29 2028-9) BUN (test code = 20 mg/dL 7-21 3094-0) Creatinine (test code 1.29 mg/dL 0.57-1.25 H = 2160-0) Glucose (test code = 130 mg/dL 70-105 H 2345-7) Calcium (test code = 8.6 mg/dL 8.4-10.2 24816-0) EGFR (test code = 54 mL/min/1.73 [place] [address]-6) NOT ACCURATE CREATININE CLEARANCE IN PREDICTING GLOMERULAR FILTRATION RATE . ESTIMATED GFR I S NOT APPLICABLE FOR DIALYSIS PATIENTS. AMRITA (test code = AMRITA) City Carrier ID - MARIELA M Lab Interpretation Abnormal (test code = 52154-4) [facility] Women[facility]2020-11-12 07:06:00 Test Item Value Reference Range Interpretation Comments Magnesium (test code = 2.1 mg/dL 1.6-2.6 01806-8) AMRITA (test code = AMRITA) City Carrier ID Vikki SIERRA M Lab Interpretation (test Normal code = 31343-8) [facility] Women[facility]osph[facility]2020-11-12 07:06:00 Test Item Value Reference Range Interpretation Comments Phosphorus (test code = 2.9 mg/dL 2.3-4.7 2777-1) AMRITA (test code = AMRITA) City Carrier ID Vikki SIERRA M Lab Interpretation (test Normal code = 96267-6) [facility] WomenBASIC METABOLIC [id number] 07:06:00 Test Item Value Reference Range Interpretation [...] S NOT APPLICABLE FOR DIALYSIS PATIEN TS. City Carrier ID - MARIELA [id number] 07:06:00 Test Item Value Reference Range Interpretation Comments MAGNESIUM (BEAKER) (test code = 2.1 mg/dL 1.6-2.6 627) City Carrier ID - MARIELA [id number] 07:06:00 Test Item Value Reference Range Interpretation Comments PHOSPHORUS (BEAKER) (test code = 2.9 mg/dL 2.3-4.7 604) City Carrier ID - MARIELA MCBC (hemogram only)2019-12-19 05:34:00 [...] K/CU MM L MPV (test code = 89310-0) 10.6 fL 9.4-12.4 nRBC (test code = 413) 0 0- 0 /100 WBC Lab Interpretation (test code = Abnormal 27429-1) [facility] (HEMOGRAM ONLY)2019-12-19 05:34:00 Test Item Value Reference [...] 0-0 (BEAKER) (test code = 413) POCT-GLUCOSE [id number] 21:12:00 Test Item Value Reference Range Interpretation Comments POC-GLUCOSE METER 144 mg/dL 70-110 H : TESTED A T [facility] 6720 (BEAKER) (test code = [facility], 153) [address]: City Carrier/Techni rigoberto ID = [id number] for CESAR FIORE POCT-GLUCOSE [id number] 17:08:00 Test Item Value Reference Range Interpretation Comments POC-GLUCOSE METER 104 mg/dL 70-110 : TESTED A T [facility] 6720 (BEAKER) (test code = [facility], 1538) [address]: City Carrier/Techni rigoberto ID = [id number] for PETEY RIVAS POCT-GLUCOSE [id number] 11:28:00 Test Item Value Reference Range Interpretation Comments POC-GLUCOSE METER 172 mg/dL 70-110 H : TESTED A T [facility] 6720 (BEAKER) (test code = [facility], 1538) [address]: City Carrier/Techni rigoberto ID = [id number] for PETEY RIVAS POCT-GLUCOSE [id number] 07:50:00 Test Item Value Reference Range Interpretation Comments POC-GLUCOSE METER 123 mg/dL 70-110 H : TESTED A T [facility] 6720 (BEAKER) (test code = [facility], 1538) [address]: City Carrier/Techni rigoberto ID = [id number] for PETEY RIVAS BASIC METABOLIC [id number] 06:58:00 Test Item Value Reference Range Interpretation [...] S NOT APPLICABLE FOR DIALYSIS PATIEN TS. City Carrier ID - [id number] 06:58:00 Test Item Value Reference Range Interpretation Comments MAGNESIUM (BEAKER) (test code = 2.1 mg/dL 1.6-2.6 627) City Carrier ID - [id number] 06:58:00 Test Item Value Reference Range Interpretation Comments PHOSPHORUS (BEAKER) (test code = 2.5 mg/dL 2.3-4.7 604) City Carrier ID - EDASICBC (HEMOGRAM ONLY)2019-12-18 06:28:00 Test [...] 0-0 (BEAKER) (test code = 413) POCT-GLUCOSE [id number] 21:37:00 Test Item Value Reference Range Interpretation Comments POC-GLUCOSE METER 145 mg/dL 70-110 H : TESTED A T [facility] 6720 (BEAKER) (test code = [facility], 153) [address]: City Carrier/Techni rigoberto ID = [id number] for CESAR FIORE POCT-GLUCOSE [id number] 16:17:00 Test Item Value Reference Range Interpretation Comments POC-GLUCOSE METER 154 mg/dL 70-110 H : TESTED A T [facility] 6720 (BEAKER) (test code = [facility], 1538) [address]2018: City Carrier/Techni rigoberto ID = [id number] for MARIYA LLLUIS, TYNEKA POCT-GLUCOSE [id number] 12:11:00 Test Item Value Reference Range Interpretation Comments POC-GLUCOSE METER 150 mg/dL 70-110 H : TESTED A T [facility] 6720 (BEAKER) (test code = [facility], 153) [address]: City Carrier/Techni rigoberto ID = [id number] for [place] LLIA, TYNEKA POCT-GLUCOSE [id number] 08:07:00 Test Item Value Reference Range Interpretation Comments POC-GLUCOSE METER 132 mg/dL 70-110 H : TESTED A T [facility] 6720 (BEAKER) (test code = [facility], 153) [address]: City Carrier/Techni rigoberto ID = [id number] for [place] LLIAMS, TYNEKA BASIC METABOLIC [id number] 06:38:00 Test Item Value Reference Range Interpretation [...] S NOT APPLICABLE FOR DIALYSIS PATIEN TS. City Carrier ID - [id number] 06:38:00 Test Item Value Reference Range Interpretation Comments MAGNESIUM (BEAKER) (test code = 2.0 mg/dL 1.6-2.6 627) City Carrier ID - [id number] 06:38:00 Test Item Value Reference Range Interpretation Comments PHOSPHORUS (BEAKER) (test code = 1.9 mg/dL 2.3-4.7 L 604) City Carrier ID - EDASICBC (HEMOGRAM ONLY)2019-12-17 06:07:00 Test [...] 0-0 (BEAKER) (test code = 413) POCT-GLUCOSE [id number] 21:27:00 Test Item Value Reference Range Interpretation Comments POC-GLUCOSE METER 172 mg/dL 70-110 H : TESTED A T [facility] 6720 (BEAKER) (test code = [facility], 1538) [address]: City Carrier/Techni rigoberto ID = [id number] for ANGELINE MCDANIELS SE POCT-GLUCOSE [id number] 16:32:00 Test Item Value Reference Range Interpretation Comments POC-GLUCOSE METER 171 mg/dL 70-110 H : TESTED A T [facility] 6720 (BEAKER) (test code = [facility], 1538) [address]: City Carrier/Techni rigoberto ID = [id number] for [place] LLIAMS, TYNEKA POCT-GLUCOSE [id number] 12:16:00 Test Item Value Reference Range Interpretation Comments POC-GLUCOSE METER 157 mg/dL 70-110 H : TESTED A T [facility] 6720 (BEAKER) (test code = [facility], 1538) [address]: City Carrier/Techni rigoberto ID = [id number] for [place] LLIAMS, TYNEKA [id number] 11:13:00 Test Item Value Reference Range Interpretation Comments ACTIVATED CLOTTING TIME 120 sec : 74 -137 seconds, (BEAKER) (test code = Baseli ne: TESTED AT 441) [address], [address]: City Carrier/Techni rigoberto ID = [id number] for SUE, PABLO N [id number] 11:13:00 Test Item Value Reference Range Interpretation Comments ACTIVATED CLOTTING TIME 268 sec : 74 -137 seconds, (BEAKER) (test code = Baseli ne: TESTED AT 441) [facility] [address] [place] [address], [facility] 30: City Carrier/Techni rigoberto ID = [id number] for RAMÓN CHAMORRO, JUVE [id number] 11:13:00 Test Item Value Reference Range Interpretation Comments ACTIVATED CLOTTING TIME 230 sec : 74 -137 seconds, (BEAKER) (test code = Baseli ne: TESTED AT 441) [facility] [address] [place] [address], [address]: City Carrier/Techni rigoberto ID = [id number] for CA STRO, JUVE Urine [id number] 09:17:00 Test Item Value Reference Range Interpretation Comments Result (test code = 6463-4) No growth [facility] [id number] 07:57:00 Test Item Value Reference Range Interpretation Comments POC-GLUCOSE METER 126 mg/dL 70-110 H : TESTED A T [facility] 6720 (BEAKER) (test code = BERTNE R [facility], 1538) [address]: City Carrier/Techni rigoberto ID = [id number] for [place] ZOYA HERR [id number] 06:40:00 Test Item Value Reference Range Interpretation Comments MAGNESIUM (BEAKER) (test code = 1.9 mg/dL 1.6-2.6 627) City Carrier ID - MARIELA [id number] 06:40:00 Test Item Value Reference Range Interpretation Comments PHOSPHORUS (BEAKER) (test code = 1.6 mg/dL 2.3-4.7 L 604) City Carrier ID - MARIELA MBASIC METABOLIC [id number] 06:40:00 Test Item Value Reference Range Interpretation [...] S NOT APPLICABLE FOR DIALYSIS PATIEN TS. City Carrier ID - MARIELA MSpecimen slightly [id number] 06:06:00 Test Item Value Reference Range Interpretation Comments PTT (test code = 44696-5) 39.6 22.5- 36.0 seconds H Lab Interpretation (test code = Abnormal 99431-5) [facility]-11-09 06:06:00 Test Item Value Reference Range Interpretation [...] 0-0 (BEAKER) (test code = 413) POCT-GLUCOSE [id number] 21:32:00 Test Item Value Reference Range Interpretation Comments POC-GLUCOSE METER 181 mg/dL 70-110 H : TESTED A T [facility] 6720 (BEAKER) (test code = [place], 1538) [address]: City Carrier/Techni rigoberto ID = [id number] for [place] SE, ANGELINE [id number] 05:46:00 Test Item Value Reference Range Interpretation Comments MAGNESIUM (BEAKER) (test code = 2.1 mg/dL 1.6-2.6 627) City Carrier ID Vikki SIERRA [id number] 05:46:00 Test Item Value Reference Range Interpretation Comments PHOSPHORUS (BEAKER) (test code = 2.2 mg/dL 2.3-4.7 L 604) City Carrier ID Vikki SIERRA MBASIC METABOLIC [id number] 05:46:00 Test Item Value Reference Range Interpretation [...] S NOT APPLICABLE FOR DIALYSIS PATIEN TS. City Carrier ID Vikki SIERRA MSpecimen slightly [id number] 05:09:00 Test Item Value Reference Range Interpretation [...] 0-0 (BEAKER) (test code = 413) Prepare [id number] 23:54:00 Test Item Value Reference Range Interpretation Comments Unit ABO (test code = A Pos 5272425) UNIT NUMBER (test code = [id number] 934-0) Status (test code = 0975632) WORK IN PROGRESS Blood Bank Product (test RED BLOOD CELLS code = 2263) PRODUCT CODE (test code = O0702J39 933-2) CROSSMATCH (test code = INCOMPATIBLE 2264) [facility] [id number] 22:46:00 Test Item Value Reference Range Interpretation Comments POC-GLUCOSE METER 169 mg/dL 70-110 H : TESTED A T [facility] 6720 (BEAKER) (test code = HAYDEN [place], 1538) [address]: City Carrier/Techni rigoberto ID = [id number] for Braden manoharRamonal [id number] 21:21:00 Test Item Value Reference Range Interpretation Comments PARTIAL THROMBOPLASTIN TIME 77.7 seconds 22.5-36.0 H (BEAKER) (test code = 760) POCT-GLUCOSE [id number] 18:17:00 Test Item Value Reference Range Interpretation Comments POC-GLUCOSE METER 150 mg/dL 70-110 H : TESTED A T [facility] 6720 (BEAKER) (test code = HAYDEN Rob [place], 1538) [address]: City Carrier/Techni rigoberto ID = [id number] for Shawna Lemus [id number] 15:04:00 Test Item Value Reference Range Interpretation Comments PARTIAL THROMBOPLASTIN TIME 77.0 seconds 22.5-36.0 H (BEAKER) (test code = 760) [id number] 14:33:00 Test Item Value Reference Range Interpretation Comments MAGNESIUM (BEAKER) 2.3 mg/dL 1.6-2.6 Specimen slightly (test code = 627) hemolyzed City Carrier ID - HARJIT CBASIC METABOLIC [id number] 14:33:00 Test Item Value Reference Range Interpretation [...] S NOT APPLICABLE FOR DIALYSIS PATIEN TS. City Carrier ID - HARJIT CSpecimen moderately ictericPOCT-GLUCOSE [id number] 13:59:00 Test Item Value Reference Range Interpretation Comments POC-GLUCOSE METER 246 mg/dL 70-110 H : TESTED A T [facility] 6720 (BEAKER) (test code = HAYDEN Rob [place], 1538) [address]: City Carrier/Techni rigoberto ID = [id number] for CASEY SANFORD Arterial doppler legs [id number] 09:47:08Ejection FractionSLEH ECHO HEARTLAB MKCKESSON CPACSRight Impression1. [...] + + + + + + !Prox TUNNELING MACHINE OPERATOR ! !143 ! ! ! !0 ! ! ! + + + + + + + + + + !Mid TUNNELING MACHINE OPERATOR ! !23.6 ! ! ! !0 ! ! ! + + + + + + + + + + !Dist TUNNELING MACHINE OPERATOR ! !0 ! ! ! [...] MARIN Date of Study 12/13/2019 DEBORAH III [id number] Age 74 Visit Number [id number] GenderMale Accession Number [id number] Date of 1945 Referring Oneil hernandez Room Number [id number] Physician Retail Salesman Cm Anderson RVS Interpreting Cyndi Pastor RVT [...] + + + + + + !Prox TUNNELING MACHINE OPERATOR ! !143 ! ! ! !0 ! ! ! + + + + + + + + + + !Mid TUNNELING MACHINE OPERATOR ! !23.6 ! ! ! !0 !! ! + + +--------- + + + + + + + !Dist TUNNELING MACHINE OPERATOR ! !0 ! ! ! [...] +------ + + + + + + +[facility]CIAN[facility]IF[facility](Ankle/Brachial Index)2019-12-14 09:46:50Ejection FractionSLEH ECHO HEARTLAB MKCKESSON [...] 12/13/2019 DEBORAH III Age 74 Visit Number [id number] Gender Male Accession Number [id number] Date of 1945 Referring delano sierra Room Number [id number] Physician Retail Salesman Cm Anderson RVS Interpreting Cyndi Pastor T Physician ProcedureType of Study: Extremities Arteries: Lower [...] measured in cm/s ;Diameters are measured in [facility] [id number] 09:12:00 Test Item Value Reference Range Interpretation Comments POC-GLUCOSE METER 161 mg/dL 70-110 H : TESTED A T [facility] 6720 (FARIDEHREBECCA) (test code = [place], 1538) [address]: City Carrier/Techni rigoberto ID = [id number] for JAMES OSBORNE RAD, CHEST, 1 VIEW, NON [id number] 08:16:00Reason for exam:->post-extubationShould this be performed at the bedside?->Yes [facility] 1945 Sex: MFINAL [...] Almendarez Verified Date/Time: 12/14/2019 08:16:23 Reading Location: [address] Body Reading Room XR chest 1 view portable / [id number] 08:16:00 Interface, External Ris In - 12/14/2019 [...] Verified Date /Time: 12/14/2019 08:16:23 Reading Location: [facility] C0[facility] 08:12:00 Test Item Value Reference Range Interpretation Comments PARTIAL THROMBOPLASTIN TIME 62.4 seconds 22.5-36.0 H (BEAKER) (test code = 760) [id number] 05:48:00 Test Item Value Reference Range Interpretation Comments PARTIAL THROMBOPLASTIN TIME 148.8 seconds 22.5-36.0 H (BEAKER) (test code = 760) Blood gas, [id number] 05:30:00 Test Item Value Reference Range Interpretation Comments pH, Arterial (test code = 2744-1) 7.39 7.35-7.45 pCO2, Arterial (test code = 36 35- 45 mm Hg 2018-09) pO2, Arterial (test code = 112 80- 90 mm Hg H 2702-7) O2 Sat, Arterial (test code = 97.8 % 96-97 H 2708-6) HCO3, Arterial (test code = 21 mmol/L 21-29 1959-4) Base Excess, Arterial (test code -3.4 mmol/L -2-3 L = 1925-7) Patient Temperature (test code = 38.4 8310-5) FIO2 (test code = 1819) 60 Lab Interpretation (test code = Abnormal 19750-4) [facility] WomenBL[facility] GAS, [id number] 05:30:00 Test Item Value Reference Range Interpretation [...] WBC 0-0 (BEAKER) (test code = 413) [id number] 04:00:00 Test Item Value Reference Range Interpretation Comments MAGNESIUM (BEAKER) (test code = 2.3 mg/dL 1.6-2.6 627) City Carrier ID - [id number] 04:00:00 Test Item Value Reference Range Interpretation Comments PHOSPHORUS (BEAKER) (test code = 3.4 mg/dL 2.3-4.7 604) City Carrier ID - EDASIBASIC METABOLIC [id number] 04:00:00 Test Item Value Reference Range Interpretation [...] S NOT APPLICABLE FOR DIALYSIS PATIEN TS. City Carrier ID - EDASISpecimen slightly ictericRAD, CHEST, 1 VIEW, NON DEPT 2019-12-14 00:36:00Reason for exam:->Post-opShould this be performed at the bedside?->YesCH[facility] : 1945 Sex: MFINAL REPORT RAD, CHEST, 1 VIEW, NON DEPT INDICATION: Post-op COMPARISON: Exam from 11 hours prior FINDINGS: Portable frontal view of the chest. IMPRESSION: Support Lines: The endotracheal tube terminates 5.0 cm cephalad to the baljti. Enteric tube terminates at the gastroesophageal junction. Recommend further advancement if stomach is desired location. A right transjugular sheath terminates in the upper SVC.Lungs and pleura: Left greater than right mild hazy interstitial opacities suggestive of interstitial edema. No consolidation or sizable effusion. No pneumothorax.Heart and mediastinum: Stable contours.Additional findings: None. Signed: Vamsi Foster MDReport Verified Date/Time: 12/14/2019 00:36:00 [id number] 23:58:00 Test Item Value Reference Range Interpretation Comments PARTIAL THROMBOPLASTIN TIME 42.6 seconds 22.5-36.0 H (BEAKER) (test code = 760) BASIC METABOLIC [id number] 23:58:00 Test Item Value Reference Range Interpretation [...] S NOT APPLICABLE FOR DIALYSIS PATIEN TS. City Carrier ID - [id number] 23:58:00 Test Item Value Reference Range Interpretation Comments MAGNESIUM (BEAKER) (test code = 2.6 mg/dL 1.6-2.6 627) City Carrier ID - [id number] 23:58:00 Test Item Value Reference Range Interpretation Comments PHOSPHORUS (BEAKER) (test code = 4.1 mg/dL 2.3-4.7 604) City Carrier ID - DBProthrombin time/[id number] 23:57:00 Test Item Value Reference Range Interpretation [...] valves. Lab Interpretation Abnormal (test code = 52565-5) [facility] WomenPROTHROMBIN TIME/[id number] 23:57:00 Test Item Value Reference Range Interpretation [...] 0-0 (BEAKER) (test code = 413) POCT-GLUCOSE [id number] 23:36:00 Test Item Value Reference Range Interpretation Comments POC-GLUCOSE METER 158 mg/dL 70-110 H : TESTED A T [facility] 6720 (BEAKER) (test code = [place], 1538) [address]: City Carrier/Techni rigoberto ID = [id number] for KIMBER ROCKWELLA BLOOD GAS, [id number] 23:32:00 Test Item Value Reference Range Interpretation [...] (BEAKER) (test code = 1819) 60.0 Calcium, [id number] 23:30:00 Test Item Value Reference Range Interpretation Comments Calcium, Ion (test code = 1994-3) 1.20 mmol/L 1.12-1.27 pH, Blood (test code = 00358-8) 7.31 [facility] WomenCALCIUM, [id number] 23:30:00 Test Item Value Reference Range Interpretation Comments CALCIUM IONIZED (BEAKER) (test 1.20 mmol/L 1.12-1.27 code = 698) PH, BLOOD (BEAKER) (test code = 7.31 1810) [id number] 21:55:00 Test Item Value Reference Range Interpretation Comments ACTIVATED CLOTTING TIME 125 sec : 74 -137 seconds, (BEAKER) (test code = Baseli ne: TESTED AT 441) [address], [facility] 30: City Carrier/Techni rigoberto ID = [id number] for LETHRIDGE, HERNANDEZ CRUZ [id number] 21:55:00 Test Item Value Reference Range Interpretation Comments ACTIVATED CLOTTING TIME 235 sec : 74 -137 seconds, (BEAKER) (test code = Baseli ne: TESTED AT 441) [place] [id number] [facility], [facility] 30: City Carrier/Techni rigoberto ID = [id number] for LETHRIDGE, HERNANDEZ CRUZ [id number] 21:55:00 Test Item Value Reference Range Interpretation Comments ACTIVATED CLOTTING TIME 241 sec : 74 -137 seconds, (BEAKER) (test code = Baseli ne: TESTED AT 441) [address], 770 30: City Carrier/Techni rigoberto ID = [id number] for MARY GIBBS [id number] 21:55:00 Test Item Value Reference Range Interpretation Comments ACTIVATED CLOTTING TIME 241 sec : 74 -137 seconds, (BEAKER) (test code = Baseli ne: TESTED AT 441) [address], 770 30: City Carrier/Techni rigoberto ID = [id number] for MARY GIBBS [id number] 21:55:00 Test Item Value Reference Range Interpretation Comments ACTIVATED CLOTTING TIME 246 sec : 74 -137 seconds, (BEAKER) (test code = Baseli ne: TESTED AT 441) [address], [facility] 30: City Carrier/Techni rigoberto ID = [id number] for CA STRO, JUVE HGB/HCT (H&H)-Stat [id number] 20:53:00 Test Item Value Reference Range Interpretation Comments Hemoglobin (test code = 786-4) 10.1 13.0- 16.8 GM/DL L Hematocrit (test code = 4544-3) 30.0 % 40-50 L Lab Interpretation (test code = Abnormal 00482-4) [facility] WomenGl[facility]Stat [id number] 20:53:00 Test Item Value Reference Range Interpretation Comments Glucose (test code = 2345-7) 138 mg/dL 70-110 H Lab Interpretation (test code = Abnormal 77844-1) [facility] [id number] 20:53:00 Test Item Value Reference Range Interpretation Comments Sodium (test code = 2951-2) 138 meq/L 136-145 Lab Interpretation (test code = Normal 98828-4) [facility]Stat [id number] 20:53:00 Test Item Value Reference Range Interpretation Comments Potassium (test code = 2823-3) 4.0 meq/L 3.6-5.5 Lab Interpretation (test code = Normal 12634-9) [facility] [id number] 20:53:00 Test Item Value Reference Range Interpretation Comments SODIUM (BEAKER) (test code = 381) 138 meq/L 136-145 POTASSIUM-STAT [id number] 20:53:00 Test Item Value Reference Range Interpretation Comments POTASSIUM (BEAKER) (test code = 4.0 meq/L 3.6-5.5 379) CALCIUM, [id number] 20:53:00 Test Item Value Reference Range Interpretation Comments CALCIUM IONIZED (BEAKER) (test 1.16 mmol/L 1.12-1.27 code = 698) PH, BLOOD (BEAKER) (test code = 7.34 1810) BLOOD GAS, [id number] 20:53:00 Test Item Value Reference Range Interpretation [...] (BEAKER) (test code = 1819) 60.0 GLUCOSE-STAT [id number] 20:53:00 Test Item Value Reference Range Interpretation Comments GLUCOSE RANDOM (BEAKER) (test code 138 mg/dL 70-110 H = 652) HGB/HCT (H&H) - STAT [id number] 20:53:00 Test Item Value Reference Range Interpretation Comments HEMOGLOBIN (BEAKER) (test code = 10.1 GM/DL 13.0-16.8 L 410) HEMATOCRIT (BEAKER) (test code = 30.0 % 40.0-50.0 L 411) CALCIUM, [id number] 19:44:00 Test Item Value Reference Range Interpretation Comments CALCIUM IONIZED (BEAKER) (test 1.20 mmol/L 1.12-1.27 code = 698) PH, BLOOD (BEAKER) (test code = 7.36 1810) SODIUM NA-STAT [id number] 19:43:00 Test Item Value Reference Range Interpretation Comments SODIUM (BEAKER) (test code = 381) 138 meq/L 136-145 POTASSIUM-STAT [id number] 19:43:00 Test Item Value Reference Range Interpretation Comments POTASSIUM (BEAKER) (test code = 3.6 meq/L 3.6-5.5 379) BLOOD GAS, [id number] 19:43:00 Test Item Value Reference Range Interpretation [...] (BEAKER) (test code = 1819) 60.0 GLUCOSE-STAT [id number] 19:43:00 Test Item Value Reference Range Interpretation Comments GLUCOSE RANDOM (BEAKER) (test code 125 mg/dL 70-110 H = 652) HGB/HCT (H&H) - STAT [id number] 19:43:00 Test Item Value Reference Range Interpretation Comments HEMOGLOBIN (BEAKER) (test code = 6.4 GM/DL 13.0-16.8 L 410) HEMATOCRIT (BEAKER) (test code = 19.0 % 40.0-50.0 L 411) Lactic Acid, [id number] 18:50:00 Test Item Value Reference Range Interpretation Comments Lactate, Art (test code = 0.7 mmol/L 0.5-2.2 2874) AMRITA (test code = AMRITA) City Carrier ID - BS Lab Interpretation (test Normal code = 76522-2) [facility] WomenLACT[facility] ACID, [id number] 18:50:00 Test Item Value Reference Range Interpretation Comments LACTATE BLOOD ARTERIAL (2) 0.7 mmol/L 0.5-2.2 (BEAKER) (test code = 2874) City Carrier ID - BSCALCIUM, [id number] 18:29:00 Test Item Value Reference Range Interpretation Comments CALCIUM IONIZED (BEAKER) (test 1.07 mmol/L 1.12-1.27 L code = 698) PH, BLOOD (BEAKER) (test code = 7.31 1810) BLOOD GAS, [id number] 18:29:00 Test Item Value Reference Range Interpretation [...] (BEAKER) (test code = 1819) 68.0 POTASSIUM-STAT [id number] 18:29:00 Test Item Value Reference Range Interpretation Comments POTASSIUM (BEAKER) (test code = 3.4 meq/L 3.6-5.5 L 379) GLUCOSE-STAT [id number] 18:29:00 Test Item Value Reference Range Interpretation Comments GLUCOSE RANDOM (BEAKER) (test code 138 mg/dL 70-110 H = 652) HGB/HCT (H&H) - STAT [id number] 18:29:00 Test Item Value Reference Range Interpretation Comments HEMOGLOBIN (BEAKER) (test code = 8.9 GM/DL 13.0-16.8 L 410) HEMATOCRIT (BEAKER) (test code = 26.0 % 40.0-50.0 L 411) SODIUM NA-STAT [id number] 18:28:00 Test Item Value Reference Range Interpretation Comments SODIUM (BEAKER) (test code = 381) 138 meq/L 136-145 Manual [id number] 14:30:00 Test Item Value Reference Range Interpretation [...] = 486) AMRITA (test code = AMRITA) City Carrier ID - [id number] Lab Interpretation (test Abnormal code = 95430-5) [facility] with platelet count + manual [id number] 14:30:00 Test Item Value Reference Range Interpretation [...] 450 K/CU MM MPV (test code = 67943-8) 10.1 fL 9.4-12.4 nRBC (test code = 413) 0 0- 0 /100 WBC Lab Interpretation (test code = Abnormal 96860-7) [facility] WITH PLATELET COUNT + MANUAL [id number] 14:30:00 Test Item Value Reference Range Interpretation [...] MORPHOLOGY (BEAKER) (test code Normal = 486) City Carrier ID - [id number] with platelet count + automated [id number] 13:53:00 Test Item Value Reference Range Interpretation [...] 450 K/CU MM MPV (test code = 28653-0) 10.4 fL 9.4-12.4 nRBC (test code = 413) 0 0- 0 /100 WBC Lab Interpretation (test code = Abnormal 00228-5) [facility] W/PLT COUNT & AUTO [id number] 13:53:00 Test Item Value Reference Range Interpretation [...] (BEAKER) (test code = 413) BASIC METABOLIC [id number] 12:20:00 Test Item Value Reference Range Interpretation [...] S NOT APPLICABLE FOR DIALYSIS PATIEN TS. City Carrier ID - TI [id number] 12:20:00 Test Item Value Reference Range Interpretation Comments MAGNESIUM (BEAKER) (test code = 1.9 mg/dL 1.6-2.6 627) City Carrier ID - TI [id number] 12:20:00 Test Item Value Reference Range Interpretation Comments PHOSPHORUS (BEAKER) (test code = 3.8 mg/dL 2.3-4.7 604) City Carrier ID - TI [id number] 12:02:00 Test Item Value Reference Range Interpretation Comments PARTIAL THROMBOPLASTIN TIME 36.1 seconds 22.5-36.0 H (BEAKER) (test code = 760) PROTHROMBIN TIME/[id number] 12:01:00 Test Item Value Reference Range Interpretation [...] mechanical heart valves.Urinalysis w/Microscopic + Reflex to [id number] 11:56:00 Test Item Value Reference Range Interpretation Comments Color, UA (test code = Light Yellow 5778-6) Clarity, UA (test code = Cloudy 5767-9) Specific Cascade, UA (test 1.036 1.001-1.035 H code = 5811-5) pH, UA (test code = 6.0 5.0-8.0 5803-2) Protein, UA (test code = 30 mg/dL Negative A 72629-1) Glucose, UA (test code = Negative Negative 365) Ketones, UA (test code = Negative Negative 2514-8) Bilirubin, UA (test code = Negative Negative 81647-8) Blood, UA (test code = Small Negative A 14263-4) Nitrite, UA (test code = Negative Negative 5802-4) Leukocytes, UA (test code Large Negative A = 5799-2) Urobilinogen, UA (test 0.2 mg/dL 0.2-1 code = 59931-8) RBC, UA (test code = 18 /HPF 82895-6) WBC, UA (test code = 769 /HPF 5821-4) Bacteria, UA (test code = Rare 96183-5) Specimen Source (test code = 2795) AMRITA (test code = AMRITA) City Carrier ID - [auto]City Carrier ID - tech Lab Interpretation (test Abnormal code = 34673-3) [facility]/ REFLEX URINE [id number] 11:56:00 Test Item Value Reference Range Interpretation [...] Rare 517) SOURCE(BEAKER) (test code = 2795) City Carrier ID - [auto]City Carrier ID - techRAD, CHEST, 1 VIEW, NON [id number] 11:28:00Reason for exam:->Post-opShould this be performed at the bedside?->YesCH[facility]USName: [facility] : 1945 Sex: MFINAL REPORT CLINICAL HISTORY: Post-op TECHNIQUE: 1 view of the chest. COMPARISON: 12/11/2019 IMPRESSION: There are new mildly prominent lung markings in the right upper lung and bilateral lower lung zones. There are no significant appearing pleural effusions. The cardiomediastinal silhouette is magnified by technique. Signed: Vane Pretty MDReport Verified Date/Time: 12/13/2019 11:28:43 Reading Location: [facility] Radiology Reading Room SODIUM NA- STAT [id number] 08:38:00 Test Item Value Reference Range Interpretation Comments SODIUM (BEAKER) (test code = 381) 138 meq/L 136-145 CALCIUM, [id number] 08:38:00 Test Item Value Reference Range Interpretation Comments CALCIUM IONIZED (BEAKER) (test 1.10 mmol/L 1.12-1.27 L code = 698) PH, BLOOD (BEAKER) (test code = 7.41 1810) BLOOD GAS, [id number] 08:38:00 Test Item Value Reference Range Interpretation [...] (BEAKER) (test code = 1819) 50.0 POTASSIUM-STAT [id number] 08:38:00 Test Item Value Reference Range Interpretation Comments POTASSIUM (BEAKER) (test code = 3.2 meq/L 3.6-5.5 L 379) GLUCOSE-STAT [id number] 08:38:00 Test Item Value Reference Range Interpretation Comments GLUCOSE RANDOM (BEAKER) (test code 148 mg/dL 70-110 H = 652) HGB/HCT (H&H) - STAT [id number] 08:38:00 Test Item Value Reference Range Interpretation Comments HEMOGLOBIN (BEAKER) (test code = 9.0 GM/DL 13.0-16.8 L 410) HEMATOCRIT (BEAKER) (test code = 26.0 % 40.0-50.0 L 411) Hemoglobin [id number] 08:26:00 Test Item Value Reference Range Interpretation Comments Hemoglobin A1C (test 5.2 % 4.3-6.1 code = 4548-4) AMRITA (test code = AMRITA) Please recheckPlease recheck Lab Interpretation Normal (test code = 60217-4) [facility] WomenHE[facility] [id number] 08:26:00 Test Item Value Reference Range Interpretation Comments HEMOGLOBIN A1C (BEAKER) (test code = 5.2 % 4.3-6.1 368) Please recheckPlease recheckBASIC METABOLIC [id number] 05:01:00 Test Item Value Reference Range Interpretation Comments SODIUM (BEAKER) 142 meq/L 136-145 (test code = 381) POTASSIUM (BEAKER) 4.0 meq/L 3.5-5.1 (test code = 379) CHLORIDE (BEAKER) 107 meq/L 98-107 (test code = 382) CO2 (BEAKER) (test 26 meq/L code = 355) BLOOD UREA NITROGEN 25 [...] S NOT APPLICABLE FOR DIALYSIS PATIEN TS. City Carrier ID - [id number] 05:01:00 Test Item Value Reference Range Interpretation Comments MAGNESIUM (BEAKER) (test code = 2.0 mg/dL 1.6-2.6 627) City Carrier ID - [id number] 05:01:00 Test Item Value Reference Range Interpretation Comments PHOSPHORUS (BEAKER) (test code = 3.8 mg/dL 2.3-4.7 604) City Carrier ID - EDASIPOCT-GLUCOSE [id number] 21:38:00 Test Item Value Reference Range Interpretation Comments POC-GLUCOSE METER 216 mg/dL 70-110 H : TESTED A T [facility] 6720 (BEAKER) (test code = [place], 1538) [address]: City Carrier/Techni rigoberto ID = [id number] for Re yes, Sairy PROTHROMBIN TIME/[id number] 19:09:00 Test Item Value Reference Range Interpretation [...] for patients wiht mechanical heart valves.BASIC METABOLIC [id number] 17:03:00 Test Item Value Reference Range Interpretation [...] S NOT APPLICABLE FOR DIALYSIS PATIEN TS. City Carrier ID - BSPOCT-GLUCOSE [id number] 16:54:00 Test Item Value Reference Range Interpretation Comments POC-GLUCOSE METER 125 mg/dL 70-110 H : TESTED A T [facility] 6720 (BEAKER) (test code = HAYDEN Rob [facility], 1538) [address]: City Carrier/Techni rigoberto ID = [id number] for PHYLLIS FIORE Carotid doppler qrmeahggr1567-30-46 07:51:37Ejection FractionSLE ECHO HEARTLAB MKCKESSON CPACSRight Impression1. [...] 12/11/2019 DEBORAH III Age 74 Visit Number [id number] Gender Male Accession Number [id number] Date of 1945 Referring Casey Lo NP Room Number Physician Retail Salesman Peter Forbes T Interpreting Caryl Gao, Physician [...] + + - Additional Measurements:ICAPSV/CCAPSV 0.85.ICAEDV/CCAEDV 0.94.[facility])2019-12-11 21:52:00 Test Item Value Reference Range Interpretation Comments SARS-COV2/RT-PCR (test Negative Not Detected, Negative, code = 5813665) See external report for linked test SARS-COV-2 PERFORMING LAB [facility] GENEVIEVE (test code = 6473014) Negative result for this test determines that [...] of the Act.Testing was performed using the Baziz SARS-CoV-2 assay.Fact Sheet for Healthcare Providers:https://www.molecular.bazzi/nicky/ FD_CXLV-AsP-4_HHC_Tbma_Whmum_10-854214.pdfFact Sheet for Healthcare Patients:https://www.Scientific Intake.ab hoang/nicky/DL_AXMO-MqO-2_Aopqfry_Ruof_Yxrpb_DB_74-672634N3.pdfPerforming Laboratory:[facility] [place] [address] Hepatitis B [id number] 19:59:00 Test Item Value Reference Range Interpretation Comments Hep B Core Total Ab (test Nonreactive Nonreactive code = 69272-3) Hep B S Ab (test code = <8.0 <8.0 mIU/mL 53817-4) HBsAg Screen (test code = Nonreactive Nonreactive 5195-3) AMRITA (test code = AMRITA) City Carrier ID - ADMIN Lab Interpretation (test Normal code = 92753-1) [facility]IS [facility] [id number] 19:59:00 Test Item Value Reference Range Interpretation Comments HEPATITIS B CORE TOTAL ANTIBODY Nonreactive Nonreactive (BEAKER) (test code = 497) HEPATITIS B SURFACE ANTIBODY < mIU/mL <8.0 (BEAKER) (test code = 647) HEPATITIS B SURFACE ANTIGEN (2) Nonreactive Nonreactive (BEAKER) (test code = 2585) City Carrier ID - ADMINHEMOGLOBIN [id number] 19:58:00 Test Item Value Reference Range Interpretation Comments HEMOGLOBIN A1C (BEAKER) (test code = 5.5 % 4.3-6.1 368) Received comment: User comments: Slide comments: Received comment: User comments: Slide comments:Hepatitis C [id number] 19:52:00 Test Item Value Reference Range Interpretation Comments Hepatitis C Ab (test code Nonreactive Nonreactive = 84955-9) AMRITA (test code = AMRITA) City Carrier ID - ADMIN Lab Interpretation (test Normal code = 87332-6) [facility] HIV-1/2 [id number] 19:52:00 Test Item Value Reference Range Interpretation Comments HIV-1 Antigen with HIV Nonreactive Nonreactive 1&2 Antibody (test code = 59110-1) AMRITA (test code = AMRITA) City Carrier ID - ADMIN Lab Interpretation (test Normal code = 52187-2) [facility] [id number] 19:52:00 Test Item Value Reference Range Interpretation Comments HEPATITIS C ANTIBODY (BEAKER) Nonreactive Nonreactive (test code = 367) City Car[facility] ID - ADMINHIV-1 ANTIGEN WITH HIV-1/2 [id number] 19:52:00 Test Item Value Reference Range Interpretation Comments HIV-1 ANTIGEN WITH HIV 1\\T\\2 Nonreactive Nonreactive ANTIBODY (2) (BEAKER) (test code = 2586) City Carrier ID - ADMINAntibody gqfpvbbvtdazpd7748-38-45 16:23:00 Test Item Value Reference Range Interpretation Comments ANTIBODY ID UNID IgGWARM (BEAKER) (test AUTO AB code = 2253) Antibody Consult SIGNED OUT Rosalinda lópez (test code = detected, ok to 2473) transfuse incom patible bloodElectronic Signature: Radhika Woo M.D. [facility](CELLAVISION MANUAL DIFF)2019-12-11 15:57:00 Test Item Value Reference [...] CONCENTRATION Adequate (CELLAVISION)(BEAKER) (test code = 3438) City Carrier ID - [place] comments: Slide comments:CBC W/PLT COUNT & AUTO PCGFVUZQWWGT6011-33-12 15:28:00 Test Item Value Reference Range Interpretation [...] (test code = 413) Type and screen, ngtopqxku1645-64-73 14:53:00 Test Item Value Reference Range Interpretation Comments ABO/RH AUTOMATED (BEAKER) (test A POSITIVE code = 2260) Ab Scrn (test code = 890-4) POSITIVE echo 1 [facility] WomenDirect [facility] (GARTH)/Direct Aprtby3433-45-03 14:08:00 Test Item Value Reference Range Interpretation Comments Direct AHG-IGG (test code = 1006-6) POSITIVE 4+ Direct AHG-C3B, C3D (test code = POSITIVE Micro+ 1003-3) [facility] WomenRAD, CHEST, 2 [id number] 13:32:00Reason for Exam:->[facility] : 1945 Sex: MFINAL REPORT PA and Lateral views of the chest dated 12/11/2019 Clinical information: pre-op Comment: Heart is normal in size. Thoracic aorta is ectatic. Pulmonary vasculature is unremarkable. Lungs are clear. No pulmonary infiltrate or pleural effusion is present.Impression: No active cardiopulmonary disease. Signed: Vamsi Johns Verified Date/Time: 05/2019 13:32:39 Reading Location: [facility] Radiology Reading Room XR chest 2 [id number] 13:32:00Interface, External Ris In - 12/11/2019 1:34 PM CSTFINAL REPORT PA and Lateral views of the chest dated 12/11/2019 Clinical information: pre-op Comment: Heart is normal in size. Thoracic aorta is ectatic. Pulmonary vasculature is unremarkable. Lungs are clear. No pulmonary infiltrate or pleural effusion is present. Impression: No active cardiopulmonary disease. Signed: Vamsi Johns Verified Date/Time: 12/11/2019 13:32:39 Reading Location: [facility] Radiology Reading Room [facility] [id number] 12:30:00 Test Item Value Reference Range Interpretation [...] S NOT APPLICABLE FOR DIALYSIS PATIEN TS. City Carrier ID - UWXzftsfm2623-59-76 11:26:00 Test Item Value Reference Range Interpretation Comments Albumin (test code = 4.1 g/dL 3.5-5 27020-0) AMRITA (test code = AMRITA) City Carrier ID - ADMIN Lab Interpretation (test Normal code = 59876-2) [facility] WomenAmylase2020-11-04 11:26:00 Test Item Value Reference Range Interpretation Comments Amylase (test code = 30 U/L 25-125 1798-8) AMRITA (test code = AMRITA) City Carrier ID - ADMIN Lab Interpretation (test Normal code = 17670-5) [facility] WomenBilirubin, adult gbinj8359-70-71 11:26:00 Test Item Value Reference Range Interpretation Comments Total Bilirubin (test code 0.9 mg/dL 0.2-1.2 = 1975-2) AMRITA (test code = AMRITA) City Carrier ID - ADMIN Lab Interpretation (test Normal code = 47450-4) [facility] WomenBilirubin, fcpvyk5037-51-45 11:26:00 Test Item Value Reference Range Interpretation Comments Bilirubin, Direct (test 0.4 mg/dL 0.1-0.5 code = 1968-7) AMRITA (test code = AMRITA) City Carrier ID - ADMIN Lab Interpretation (test Normal code = 62294-1) [facility] WomenLactate dehydrogenase (LDH)2019-12-11 11:26:00 Test Item Value Reference Range Interpretation Comments LDH (test code = 2532-0) 177 U/L 125-220 AMRITA (test code = AMRITA) City Carrier ID - ADMIN Lab Interpretation (test Normal code = 29509-1) [facility] WomenLipase2020-11-04 11:26:00 Test Item Value Reference Range Interpretation Comments Lipase (test code = 22 U/L 8-78 3040-3) AMRITA (test code = AMIRTA) City Carrier ID - ADMIN Lab Interpretation (test Normal code = 58601-0) [facility] WomenAlkaline wucnewczihj1073-80-49 11:26:00 Test Item Value Reference Range Interpretation Comments Alkaline Phosphatase (test 93 U/L 40-150 code = 6768-6) AMRITA (test code = AMRITA) City Carrier ID - ADMIN Lab Interpretation (test Normal code = 44936-9) [facility] WomenProtein, kdiml4132-61-11 11:26:00 Test Item Value Reference Range Interpretation Comments Protein, Total (test code 6.1 6.0- 8.3 gm/dL = 2885-2) AMRITA (test code = AMRITA) City Carrier ID - ADMIN Lab Interpretation (test Normal code = 88882-6) [facility] WomenAST (SGOT)2019-12-11 11:26:00 Test Item Value Reference Range Interpretation Comments AST (test code = 1920-8) 12 U/L 5-34 AMRITA (test code = AMRITA) City Carrier ID - ADMIN Lab Interpretation (test Normal code = 07114-0) [facility] WomenALT (SGPT)2019-12-11 11:26:00 Test Item Value Reference Range Interpretation Comments ALT (test code = 1742-6) 12 U/L 6-55 AMRITA (test code = AMRITA) City Carrier ID - ADMIN Lab Interpretation (test Normal code = 66056-2) [facility] WomenALKALINE ESBFHCRJRQM1161-05-99 11:26:00 Test Item Value Reference Range Interpretation Comments ALKALINE PHOSPHATASE (BEAKER) (test 93 U/L 40-150 code = 346) City Carrier ID - ADMINPROTEIN, [id number] 11:26:00 Test Item Value Reference Range Interpretation Comments TOTAL PROTEIN (BEAKER) (test code = 6.1 gm/dL 6.0-8.3 770) City Carrier ID - ADMINAST (SGOT)2019-12-11 11:26:00 Test Item Value Reference Range Interpretation Comments AST (SGOT) (BEAKER) (test code = 353) 12 U/L 5-34 City Carrier ID - ADMINALT (SGPT)2019-12-11 11:26:00 Test Item Value Reference Range Interpretation Comments ALT (SGPT) (BEAKER) (test code = 347) 12 U/L 6-55 City Carrier ID - HNCYUBJZXZVV6337-99-33 11:26:00 Test Item Value Reference Range Interpretation Comments ALBUMIN (BEAKER) (test code = 1145) 4.1 g/dL 3.5-5.0 City Carrier ID - SJXJUKPCVVMG4170-40-15 11:26:00 Test Item Value Reference Range Interpretation Comments AMYLASE (BEAKER) (test code = 349) 30 U/L 25-125 City Carrier ID - ADMINBILIRUBIN, ADULT [id number] 11:26:00 Test Item Value Reference Range Interpretation Comments BILIRUBIN TOTAL (BEAKER) (test code 0.9 mg/dL 0.2-1.2 = 377) City Carrier ID - ADMINBILIRUBIN, XFKTSX5952-03-03 11:26:00 Test Item Value Reference Range Interpretation Comments BILIRUBIN DIRECT (BEAKER) (test 0.4 mg/dL 0.1-0.5 code = 706) City Carrier ID - ADMINLACTATE DEHYDROGENASE (LDH)2019-12-11 11:26:00 Test Item Value Reference Range Interpretation Comments LACTATE DEHYDROGENASE (BEAKER) (test 177 U/L 125-220 code = 635) City Carrier ID - SXXICSMAHPE1303-17-83 11:26:00 Test Item Value Reference Range Interpretation Comments LIPASE (BEAKER) (test code = 749) 22 U/L 8-78 City Carrier ID - ADMINUrinalysis w/Zpvvugcgmav2960-53-87 11:18:00 Test Item Value Reference Range Interpretation Comments Color, UA (test code = Light Yellow 5778-6) Clarity, UA (test code = Hazy 5767-9) Specific Cascade, UA (test 1.011 1.001-1.035 code = 5811-5) pH, UA (test code = 6.5 5.0-8.0 5803-2) Protein, UA (test code = 10 mg/dL Negative A 89763-0) Glucose, UA (test code = 1000 mg/dL Negative A 365) Ketones, UA (test code = Negative Negative 2514-8) Bilirubin, UA (test code = Negative Negative 27682-8) Blood, UA (test code = Small Negative A 08521-3) Nitrite, UA (test code = Negative Negative 5802-4) Leukocytes, UA (test code Large Negative A = 5799-2) Urobilinogen, UA (test 0.2 mg/dL 0.2-1 code = 31369-4) RBC, UA (test code = 4 /HPF 29983-2) WBC, UA (test code = 152 /HPF 5821-4) Mucus (test code = 8247-9) Rare Squam Epithel, UA (test <1 /HPF code = 76663-0) Specimen Source (test code = 2795) AMRITA (test code = AMRITA) City Carrier ID - [auto]City Carrier ID - tech Lab Interpretation (test Abnormal code = 21974-1) [facility] WomenUR[facility]ALYSIS W/ IPLBHNHRTGP5429-07-46 11:18:00 Test Item Value Reference Range Interpretation [...] = 516) SOURCE(BEAKER) (test code = 2795) City Carrier ID - [auto]City Carrier ID - vwndUWCQ8345-31-02 11:14:00 Test Item Value Reference Range Interpretation Comments PARTIAL THROMBOPLASTIN TIME 32.6 seconds 22.5-36.0 (BEAKER) (test code = 760) PROTHROMBIN TIME/[id number] 11:13:00 Test Item Value Reference Range Interpretation [...] is2.5-3.5 for patients wiht mechanical heart valves.Reticulocyte wpziv0899-24-53 11:12:00 Test Item Value Reference Range Interpretation Comments % Retic (test code = 3.3 % 0.5-1.8 H 16514-0) AMRITA (test code = AMRITA) City Carrier ID - [id number] Lab Interpretation (test Abnormal code = 84332-7) [facility] WomenRETICULOCYTE ANEZW1559-72-69 11:12:00 Test Item Value Reference Range Interpretation Comments RETICULOCYTE COUNT PCT (BEAKER) (test 3.3 % 0.5-1.8 H code = 575) City Carrier ID - 6000Pulmonary Funct Lab Shbwskfzvr8835-28-42 10:30:00Bianca Ly, HEAD MACHINIST, ACADEMIC AFFAIRS SPECIALIST 11/21/2019 12:31 [facility] PFT CHARTING REPORT Infection Control/Hand Hygiene procedures followed throughout the encounter with patient: YesPatient Identification Method: Patient name verified on armband, and Medical record on armband, Is the order complete?: Yes Account ID#: [id number] Name: Duke Marin IIIBirthdate: 1945 Age: 74 [...] patient released from the lab without adverseoutcome.[facility] WomenCT, CTA, [id number] 14:08:00Part of CTA Chest, ABD and Pelvis [...] nonobstructing atherosclerotic changes throughout the abdominal aorta. Calenderer dimensions of the thoracic aorta are as [...] appear normal. The spleen is mildly enlarged, lncheabqf20 cm in length in the craniocaudal dimension. [...] [place] Verified Date/Time: 11/05/2019 14:08:15 Reading Location: [facility] Reading Room [address] [place] [address] CT, CTA, [id number] 14:08:00Unlisted Reason for Exam - Click Yes [...] nonobstructing atherosclerotic changes throughout the abdominal aorta. Calenderer dimensions of the thoracic aorta are as [...] aortic bifurcation. The celiac axis, SMA, and DVAONTE are patent. There are single renal arteries [...] appear normal. The spleen is mildly enlarged, clvdlyvyh70 cm in length in the craniocaudal dimension. [...] Reading Location: [facility] Reading Room [address] [place] [address] CT/CTA abdomen & pelvis - For [id number] 14:08:00Interface, External Ris In - 11/05/2019 2:10 [...] nonobstructing atherosclerotic changes throughout the abdominal aorta. Calenderer dimensions of the thoracic aortaare as follows: [...] Reading Location: [facility] Reading Room [address] [place] [address] [facility] vikzw6286-90-09 14:08:00Interface, External Ris In - 11/05/2019 2:10 [...] nonobstructing atherosclerotic changes throughout the abdominal aorta. Calenderer dimensions of the thoracic aortaare as follows: [...] Reading Location: [facility] Reading Room [address] [place] [address] [facility]arlakePOC-Reickpcqnd3233-96-42 07:38:00 Test Item Value Reference Range Interpretation Comments POC-Creatinine (test code 1.7 mg/dL 0.6-1.3 H : TESTED AT [facility] = 1859) [address] [facility] [address]: City Carrier/Techni rigoberto ID = [id number] for IRVIN LOMBARDI POC-EGFR (test code = 40 mL/min/1.73M2 1860) Lab Interpretation (test Abnormal code = 03260-3) [facility] WomenPOCT-IYXAWJHXMH1928-25-78 07:38:00 Test Item Value Reference Range Interpretation Comments POC-CREATININE 1.7 mg/dL 0.6-1.3 H : TESTED AT [facility] ([facility]) (test [address] [facility] E DG code = 1859) [facility] 7 7030: City Carrier/Techni rigoberto ID = [id number] for IRVIN LOMBARDI POC-EGFR 40 mL/min/1.73M2 (BEAKER) (test code = 1860) TISSUE [id number] 14:55:00Surgical Pathology Report Case: [id number] Authorizing Provider: Brown Garcia MD Collected: 02/16/2018 1004 Ordering Location: [facility] Received: 02/16/2018 1117 SERVICES Pathologist: Nicolas [...] CHRONIC INFLAMMATION Signing Pathologist Direct Phone Line: [phone] signed by Nicolas Diaz MD on 02/20/2018 at 2:55 [id number], 42250 X 2Malignant neoplasm of urinary bladder A. [...] = 13) 50-59,000 col/mL skin floraURINALYSIS W/ [id number] 18:16:00 Test Item Value Reference Range Interpretation [...] = Occasional 1585) SOURCE(BEAKER) (test code = 2915) CBC W/PLT COUNT & AUTO [id number] 17:52:00 Test Item Value Reference Range Interpretation [...] Received comment: User comments: Slide comments:BASIC METABOLIC [id number] 17:40:00 Test Item Value Reference Range Interpretation [...] FOR DIALYSIS PATIEN TS. RAD, CHEST, 2 [id number] 16:22:00Reason for exam:->pre-op testingShould this be performed at the bedside?->NoFINAL REPORT Chest, PA and lateral. History: Preoperative. Comparison: 08/24/2017. Discussion: Cardiomegaly and thoracic aortic ectasia. The lungs are clear without evidence of consolidation or effusion. There are no acute osseous abnormalities. The soft tissues are unremarkable. IMPRESSION: No acute cardiopulmonary abnormality. Signed: Humberto Weaver MDReport Verified Date/ Time: 02/12/2018 16:22:15 Reading Location: [address] Radiology Reading Room TISSUE [id number] 17:10:00Surgical Pathology Report Case: [id number] Authorizing Provider: Brown Garcia MD Collected: 08/25/2017 1030 Ordering Location: [facility] Received: 08/25/2017 1434 SERVICES Pathologist: Nicolas [...] NOT PRESENT Signing Pathologist Direct Phone Line: [phone] signed by Nicolas Diaz MD on 08/28/2017 at 5:10 PMThe focus of invasion on specimen B. Is into the lamina propria of one papillary stalk and consists of on 3-4 tiny cell clusters. A. 11282V. 73564W. 57070U. 43621Muxthxggj neoplasm of urinary bladder A. Bladder tumor [...] to 0.4 cm. Submitted D1. CG/pl PerformedURINE [id number] 16:00:00 Test Item Value Reference Range Interpretation [...] comments: Slide comments:CBC W/PLT COUNT & AUTO QDVFVLBBBBQE1911-08-58 20:06:00 Test Item Value Reference Range Interpretation [...] (test code = 413) RAD, CHEST, 2 [id number] 16:22:00Reason for Exam:->bladder cancer, pre- op testingFINAL [...] MDReport Verified Date/Time: 08/23/2017 16:22:14 Reading Location: [address] Reading Room [facility] METABOLIC [id number] 16:10:00 Test Item Value Reference Range Interpretation [...] APPLICABLE FOR DIALYSIS PATIEN TS. URINALYSIS W/ DASQQKDSVBE3992-81-12 16:01:00 Test Item Value Reference Range Interpretation [...] Rare 1574) SOURCE(BEAKER) (test code = 2795) [id number] 15:55:00 Test Item Value Reference Range Interpretation Comments PARTIAL THROMBOPLASTIN TIME 31.6 seconds 22.5-36.0 (BEAKER) (test code = 760) PROTHROMBIN TIME/[id number] 15:54:00 Test Item Value Reference Range Interpretation Comments PROTIME (BEAKER) (test code = 14.8 seconds 11.7-14.7 H 759) INR (BEAKER) (test code = 370) 1.2 <=5.9 RECOMMENDED COUMADIN/WARFARIN INR THERAPY RANGESSTANDARD DOSE: 2.0 - 3.0 Includes: PROPHYLAXIS forvenous thrombosis, systemic embolization; TREATMENT for venous thrombosis and/or pulmonary embolus.HIGH RISK: Target INR is 2.5-3.5 for patients with mechanical heart valves.GUWMGXCWBS6577-59-06 10:07:0032.2[facility] WyfbbviHMUNENNTOU0312-47-36 10:07:008.6[facility] DfgyucjMLXRGFWYII2182-92-42 10:07:83016Qiudlmrm KjnocmpLRXOTTRKAD5470-51-64 10:07:0016.8[facility] DCVQEUIUDT8208-19-75 10:07:0011.3[facility] KwfljtaKRPXGXOTMB7534-71-23 10:07:00 4.00[facility] MzdskccFSRAASWEDM4150-81-95 10:07:0051.5[facility]annHEMATOLOGY 2017-05-29 10:07:0087.5[facility] VvseunrVAMWNDQJYB3586-78-93 10:07:0035.0[facility] RufygygEPCZFJOQMY6616-62-72 10:07:00 Test Item Value Reference Range Interpretation Comments MCH (test code = MCH) 28.2 pg 27.0-31.0 [facility] MpvbxgeCWSOFTSNRN8053-07-07 10:07:001.8[facility]annHEMATOLOGY 2017-05-29 10:07:000.1[facility] TobsrrtJOBBOMFSGQ7648-08-12 10:07:000.5[facility] UlypqbkSKCPCYLDPU2983-06-34 10:07:003.5[facility] NtbcnaqZTELZOILLN7639-22-35 10:07:0077.1[facility] JgxpdezXSLEGJCTCB7726-75-96 10:07:0018.1[facility] GGJUUNNDLC7356-28-96 10:07:0039.7[facility] LhxxoaiWPANPGANCU9297-42-49 10:07:00 1.0[facility] SttindmKQWRDGQTKS9157-88-70 10:07:009.3[facility]annHEMATOLOGY 2017-05-29 10:07:000.3[facility] EqmmqafOUUMRVDDHL0495-84-77 10:41:001.0[facility] HmjuwkaIYQRMDHQEC0823-29-88 10:41:002.0[facility] XliukefSGTNYIAGKA8355-12-00 10:41:00 Test Item Value Reference Range Interpretation Comments Tot Cell Ct (test code = Tot Cell Ct) 100 1 [facility] PbzdooaSCGEYQAMLA5915-78-31 10:41:002.0[facility]annHEMATOLOGY 2017-05-28 10:41:001+ (05/28/17 5:41 AM)[facility] UfgydsaAMUYWBZXUO5965-65-71 10:41:00Moderate *ABN*(05/28/17 5:41 AM)[facility] AlkbgxoDKRLMMSUFV8923-84-42 10:41:001+ *ABN*(05/28/17 5:41 AM)[facility] OounkvbBCWYJXUGPQ0986-60-19 10:41:001+ *ABN*(05/28/17 5:41 AM)[facility] CqlxvviKVYOCIBRTJ4279-65-96 10:41:0042.8[facility] TwirergYVICOKUCFV1257-25-65 10:41:0013.0[facility] VltppnqDCZBBIFCQR7244-56-67 10:41:000.5[facility] ReivddzKDGWZEBIJA5402-06-73 10:41:0082.0[facility] KUOOEYKMHG3046-01-38 10:41:000.0[facility] VpjigjdJSLOQODSPZ8929-28-93 10:41:006.6 [facility] McccqemMVYKQOPFQP1695-34-23 10:41:001.0[facility]annHEMATOLOGY 2017-05-28 10:41:78326Zqoolzjf KjiuajqWUFSLNUYMC4442-69-18 10:41:0016.4[facility] RebbwlwWDDQRLCMDG1608-64-49 10:41:00 Test Item Value Reference Range Interpretation Comments MCH (test code = MCH) 27.8 pg 27.0-31.0 [facility] UunyuzbVDXTJWHOSW5749-90-27 10:41:0032.2[facility]annHEMATOLOGY 2017-05-28 10:41:0086.2[facility] BojvjeyAWIKAVRECY8117-14-52 10:41:0035.5[facility] FzzldldDHWECAGRKQ8486-65-26 10:41:008.2[facility] QpwqschBGJWTVWOOE9819-35-73 10:41:0011.4[facility] WmctcsiYBKHMYRMKU9225-06-80 10:41:004.13[facility] TVVSDLTPIB2222-45-52 10:41:0051.0[facility] HermannCHEM UZBVS5080-04-77 13:34:0068 [facility] HermannCHEM PFXAI7516-07-09 13:34:0024[facility] HermannCHEM PANEL 2017-05-27 13:34:71896Gnqyudta HermannCHEM ERJFW7995-04-15 13:34:003.8[facility] HermannCHEM CMAOA8461-47-83 13:34:83742Efeqsgsc HermannCHEM LRWPV1391-73-20 13:34:001.08[facility] HermannCHEM YHOIO6232-66-16 13:34:0020[facility] HermannCHEM JZLDO9685-59-49 13:34:008.7[facility] HermannCHEM DPMLU7822-67-78 13:34:34353 [facility] HermannCHEM CMATE3483-43-12 13:34:0014.8[facility]annHEMATOLOGY 2017-05-27 13:34:001.3[facility] AnqqqseOPAXUSZJMI8142-11-43 13:34:000.5[facility] JwfnagxYBHUJXUBBN0380-61-74 13:34:000.3[facility] PasnawjNEHFNRAUHI5328-55-30 13:34:000.8[facility] EhsobleVYXCROVRSX3245-24-46 13:34:0010.9[facility] HJDLXTQQAM1686-32-32 13:34:0044.6[facility] RtgdlvfKTHZZMOEVC8337-42-81 13:34:00 0.3[facility] AiehcolZSVZAIDXHB2136-61-60 13:34:001+ *ABN*(05/27/17 8:34 AM) [facility] XncykpkZWPOHHTTXO1519-04-48 13:34:000.2[facility] HermannHEMATOLOGY 2017-05-27 13:34:0019.3[facility] CbqezanCEXCHJRMCW0098-54-68 13:34:00Normal (05/27/17 8:34 AM)[facility] XpdrmckVFUUIPCPAA7729-57-37 13:34:0078.6[facility] BfcsrngYEBFJMLUWG6498-69-62 13:34:00607Ufxtgsog PxzyzlvRPOJGRZRXD8853-05-79 13:34:008.5[facility] EgbidgfYYXTGZBVZM7231-24-34 13:34:0033.0[facility] DWXCMUVNXQ8115-27-85 13:34:0016.4[facility] HxczlvsZBCQYNPJNJ5721-74-64 13:34:00 12.[facility] GxwhjmaQQALMCMLCL6177-20-65 13:34:0086.8[facility] HermannHEMATOLOGY 2017-05-27 13:34:0037.4[facility] QmcmznlPINBTVAXER4608-20-74 13:34:00 Test Item Value Reference Range Interpretation Comments MCH (test code = MCH) 28.7 pg 27.0-31.0 [facility] WucvfuzPJBCWFCRZI2931-33-57 13:34:0056.8[facility] HermannHEMATOLOGY 2017-05-27 13:34:004.31[facility] HermannBLOOD BANK KRKUVFO0162-36-76 06:34:00 Negative (05/27/17 1:34 AM)[facility]annBL[facility]OD BANK VDEPLQE2134-79-63 06:25:00 Product available (05/27/17 1:25 AM)[facility] HermannCHEM VEYDJ9966-71-72 04:22:00 49[facility] HermannCHEM FVZIP1672-85-81 04:22:72578Ejafrfld HermannCHEM PANEL 2017-05-27 04:22:003.5[facility] HermannCHEM VULTB4907-21-21 04:22:41418Rwrgmveu HermannCHEM BXZWE5019-85-52 04:22:0025[facility] HermannCHEM XUFLK3417-84-88 04:22:009.1[facility] HermannCHEM CVVFD5438-57-47 04:22:65290Zscahywf HermannCHEM JNEMW6834-69-34 04:22:0025[facility] HermannCHEM WEDHV1536-81-47 04:22:001.41 [facility] HermannCHEM EFPNE5602-13-59 04:22:0012.5[facility] HermannHEMATOLOGY 2017-05-27 04:22:000.0[facility] VidtzwpHEBTYMWGNB0521-74-69 04:22:00Normal (05/26/17 11:22 PM)[facility] PvjjrqdFURFHQWGOW8646-58-33 04:22:000.0[facility] NjqjzsdMOUWNPHLKH7039-71-62 04:22:00 Test Item Value Reference Range Interpretation Comments Tot Cell Ct (test code = Tot Cell Ct) 100 1 [facility] IvrhsgcIRBXEWXQCZ6261-19-74 04:22:00Normal (05/26/17 11:22 PM)[facility] NgqjjawKGIQCTOKHB6314-81-16 04:22:00 Test Item Value Reference Range Interpretation Comments INR (test code = INR) 1.13 1 0.85-1.17 [facility] GflpswcGRSYVQJCYD9870-53-86 04:22:00 Test Item Value Reference Range Interpretation Comments PT (test code = PT) 14.5 s 12.0-14.7 [facility] OotitraYNWDHVWXOW9407-44-45 04:22:00 Test Item Value Reference Range Interpretation Comments PTT (test code = PTT) 33.1 s 22.9-35.8 [facility]HE[facility]IN B0T3181-87-56 11:52:00 Test Item Value Reference Range Interpretation Comments HEMOGLOBIN A1C (BEAKER) (test code = 6.9 % 4.3-6.1 H 368) [id number] 11:12:00 Test Item Value Reference Range Interpretation Comments RPR SCREEN (BEAKER) (test code = Nonreactive Nonreactive 420) CBC W/PLT COUNT & AUTO WGHWGAIDLPFQ0223-83-52 10:31:00 Test Item Value Reference Range Interpretation [...] (BEAKER) (test code = Present 1371) VITAMIN [id number] 08:02:00 Test Item Value Reference Range Interpretation Comments VITAMIN B12 (BEAKER) (test code = 346 pg/mL 213-816 774) TSH/FREE T4 IF VYXYEYLAT9996-99-81 08:02:00 Test Item Value Reference Range Interpretation Comments THYROID STIMULATING HORMONE 1.37 uIU/mL 0.35-4.94 (BEAKER) (test code = 772) CREATINE KINASE (CK), TOTAL AND [id number] 07:55:00 Test Item Value Reference Range Interpretation Comments CREATINE KINASE TOTAL (BEAKER) 72 U/L 29-200 (test code = 380) CREATINE KINASE-MB (BEAKER) (test 0.5 ng/mL 0.0-6.6 code = 750) CREATINE KINASE-MB INDEX (BEAKER) 0.7 % (test code = 395) CK-MB Reference Range:<6.7 Normal6.7-10.0 Borderline>10.0 AbnormalTROPONIN B5192-52-31 07:55:00 Test Item Value Reference Range Interpretation [...] acidosis, acute neurological disease, and persistent tachyarrhythmia.LIPID WASKW3900-07-03 07:39:00 Test Item Value Reference Range Interpretation [...] 130-159 High 160-189 Very High >=190BASIC METABOLIC [id number] 07:39:00 Test Item Value Reference Range Interpretation [...] DIALYSIS PATIEN TS. MR, MRA, BRAIN, WITHOUT [id number] 04:30:00Reason for exam:->Ischemic Stroke EvaluationFINAL REPORT MR, [...] MDReport Verified Date/Time: 01/29/2017 04:30:36 Reading Location: [facility] C013X [facility] Consult Reading Room MR, MRA, NECK, WITHOUT IV [id number] 04:30:00Reason for exam:- >Ischemic Stroke EvaluationFINAL REPORT [...] MDReport Verified Date/Time: 01/29/2017 04:30:36 Reading Location: [place] [id number] [facility] Consult Reading Room MR, BRAIN, WITHOUT [id number] 04:30:00Reason for exam:- >Ischemic Stroke EvaluationFINAL REPORT [...] MDReport Verified Date/Time: 01/29/2017 04:30:36 Reading Location: [facility] C013X [facility] Reading Room CHEM [id number] 20:35:0054[facility] [id number] 20:35:0015.8[facility]annCHE[facility] [id number] 20:35:009.9[facility]ann[facility] [id number] 20:35:0027[facility]annCHE[facility] [id number] 20:35:31060 [facility] [id number] 20:35:0091[facility] PANEL 2016-09-19 20:35:0018[facility]annCHE[facility] [id number] 20:35:81017Ayuozeqq HermannCHEM [id number] 20:35:001.31[facility] [id number] 20:35:003.8[facility]
[2020-02-28 10:10] VITALS: BP 115/51; TEMP 97.8; O2SAT 93; BMI 25.8
== END ==
LOC: DS 08:00
PROVIDERS: ATTEND Internal Medicine Hematology & Oncology
PROC: 30233N1 Transfusion of Nonautologous Red Blood Cells into Peripheral Vein, Percutaneous Approach (ICD-10-PCS; principal; 2020-02-28)
DX: D63.0 Anemia in neoplastic disease (principal); C91.10 Chronic lymphocytic leukemia of B-cell type not having achieved remission
CPT/HCPCS: 36430; P9021; 86850; 86870; 86900; 86901; 86922

== ENCOUNTER 2020-08-08 13:34 | Emergency (ER) | payer OTHER ==
--- NOTE | 2020-08-08 14:21 | RAD REPORT ---
EXAM DESCRIPTION: CT - Head Brain Wo Cont - 08/08/2020 2:13 pm CLINICAL HISTORY: MENTAL STATUS CHANGE Headache, drowsiness COMPARISON: <Comparisons> TECHNIQUE: All CT scans are performed using dose optimization technique as appropriate and may inclu de automated exposure control or mA/KV adjustment according to patient size. FINDINGS: No intracranial hemorrhage, hydrocephalus or extra-axial fluid collection.Advanced general ized brain atrophy is present with advanced periventricular and deep white matter chronic microvascul ar ischemic changes.No areas of brain edema or evidence of midline shift. The paranasal sinuses and mastoids are clear. The calvarium is intact. IMPRESSION: No acute intracranial abnormality.
--- NOTE | 2020-08-08 14:24 | RAD REPORT ---
EXAM DESCRIPTION: RAD - Chest Single View - 08/08/2020 2:17 pm CLINICAL HISTORY: AMS Chest pain. COMPARISON: <Comparisons> FINDINGS: Portable technique limits examination quality. The lungs are mildly underinflated but grossly clear. The heart is normal in size. No displaced fract ures. IMPRESSION: No acute intrathoracic process suspected.
[2020-08-08 15:23] LABS: Absolute Lymphocytes (CBC) 0.5 K/uL (0.7-4.9); Basophils % 0.5 % (0-1.3); Hematocrit 42.8 % (39.6-49.0); Lymphocytes % 7.2 % (15.3-44.8); MPV 8.6 fL (7.6-11.3); RBC Red Blood Cell Count 4.92 M/uL (4.33-5.43)
[2020-08-08 15:24] LABS: Protime INR 1.23
--- OUTSIDE RECORDS SUMMARY | 2020-08-08 15:27 | XMS REPORT | Continuity of Care Document ---
:1945 Author Organization [facility] t Address [address] [place] [address] Care Team Providers Name Role Phone [phone] Primary Care Physician Unavailable SYSTEM, NOT IN Attending Clinician Unavailable Aurora BARNHART Attending Clinician Unavailable Michelle MOREL Attending Clinician MICHELLE Attending Clinician Unavailable Clyde SCHMIDT Attending Clinician Francis Anderson PharmD Attending Clinician Unavailable Srini MOREL Attending Clinician Diana lFores MA Attending Clinician Unavailable Nicolas GUTIÉRREZ Attending Clinician Tray WHITE, T Attending Clinician Unavailable CLYDE Attending Clinician Unavailable CHLOE GARCIA Attending Clinician Unavailable Natividad WHITE Attending Clinician Unavailable Jeremy ZIMMERMAN, R Attending Clinician Unavailable Jose WHITE Attending Clinician Unavailable Gisela SCHMIDT Attending Clinician Carmen SCHMIDT Attending Clinician Camacho WHITE MSN Attending Clinician Unavailable Elsi WHITE, A Attending Clinician Unavailable CARMEN Attending Clinician Unavailable Azeem SCHMIDT Attending Clinician Christine SCHMIDT Attending Clinician Phu Stearns MD Attending Clinician Evelia SCHMIDT Attending Clinician Bishop [facility] Attending Clinician MARY Attending Clinician Unavailable CHRISTINE Attending Clinician Unavailable Aurora Alexandre Attending Clinician Kerry Garcia Attending Clinician Diana Freeman NP Attending Clinician ALISON Attending Clinician Unavailable Joaquin Bolanos MD Attending Clinician JOAQUIN BOLANOS Attending Clinician Unavailable Elyssa WHITE Attending Clinician Unavailable Joaquin Bolanos MD Attending Clinician Kenny Sierra MD Attending Clinician Yoan SCHMIDT Attending Clinician Brian Herrera Attending Clinician Unavailable Navid Pierce MD Attending Clinician María Faye Attending Clinician Unavailable KENNY SIERRA Attending Clinician Unavailable Gil Lo NP Attending Clinician Ella SCHMIDT Attending Clinician ELLA Attending Clinician Unavailable [address], [address] Room Attending Clinician Unavailable GIL LO Attending Clinician Unavailable Doctor Unassigned, Name Attending Clinician Unavailable SHABANA GARCIA Attending Clinician Unavailable Luciana Carlson Attending Clinician Gisella Alicia Attending Clinician MICHAEL FROST Attending Clinician Unavailable Ingrid Askew Attending Clinician ELLA Admitting Clinician Unavailable CLYDE Admitting Clinician Unavailable JOAQUIN BOLANOS Admitting Clinician Unavailable KENNY SIERRA Admitting Clinician Unavailable SHABANA GARCIA Admitting Clinician Unavailable Luciana Carlson Admitting Clinician MICHAEL FROST Admitting Clinician Unavailable Gisella Alicia Admitting Clinician Payers Payer Name Policy Type Policy Number Effective Date Expiration Source Date MEDICARE PART A AND B [id number] 2009 00:00:00 AARP-SECONDARY ONLY [id number] 2020 00:00:00 MEDICAREMEDICARE A [id number] [facility] [id number] 2009 00:00:00 [facility] [id number] [facility] SUPPLEMENT/INDIVIDUAL 00:00:00 Sonia mcneil [id number] 2019-PresentMedi ap Problems Condition Condition Condition Status Onset Resolution Last Treating Co mments Source Name Details Category Date Date Treatment Clinician Date Hemiplegia Hemiplegia Disease Active M D affecting affecting - Young rso left left 00:00: n nondominan nondominan 00 t side t side Malnutriti Malnutriti Disease Active M D on of on of 03-10 Anderso moderate moderate 00:00: n degree degree 00 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 00:00: n mellitus mellitus 00 with with hyperglyce 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 current 03-09 Anderso use of use of 00:00: n systemic systemic 00 steroid steroid Bedridden Bedridden Disease Active 2- Anderso 00:00: n 00 Impaired Impaired Disease Active mobility mobility 03-09 Isra o 00:00: n 00 Personal Personal Disease Active care care 03-09 Anderso impairment impairment 00:00: n 00 Malignant Malignant Disease Active neoplasm neoplasm 03-09 Isra o related related 00:00: n fatigue fatigue 00 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, leukemia, 00:00: n disease disease 00 Chronic Chronic Disease Active renal renal 03-05 Anderso insufficie insufficie 00:00: n ncy ncy 00 History of History of Disease Active M D peripheral peripheral 03-05 An derso arterial arterial 00:00: n occlusive occlusive 00 disease disease 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-05 [facility]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 00:00: n 00 PVD PVD Disease Active 2019-[address] [facility] (periphera (periphera 1-30 Yaa kes - l vascular l vascular 00:00: Me dical disease) disease) 00 Center Lower limb Lower limb Disease Active 2019-[address] ischemia- ischemia- 1-06 [facility] - Left lower Left lower [...] Active 2016-[address] lacunar lacunar 2-23 [facility] - cerebrovas cerebrovas 00:00: Me dical cular cular 00 Center accident accident (CVA) (CVA) LUMBAR Diagnosis Active 2016-10-17 Mem oria STENOSIS 7-14 14:47:00 l LUMBAR 00:00: [place] STENOSIS 00 Active 08/19/2016 [facility] M54.16 - Diagnosis Active 2016-07-20 M emoria "RADICULOP 6-14 12:52:00 l ETHAN, M54.16 - 00:01: [place] lay LUMBAR "RADICULOP 00 REGION" ATHY, LUMBAR REGION" Active 07/20/2016 PRECIOUS [place] Mitral Mitral Disease Active [place] valve valve 06-06 Methodi insufficie insufficie 00:00: st ncy ncy 00 Panlobular Panlobular Disease Active jordan emphysema emphysema 06-06 Meth rosario 00:00: st 00 Peripheral Peripheral Disease Active jordan vascular vascular 06-06 Method i disease disease 00:00: st 00 Pitting Pitting Disease Active [place] edema edema 06-06 Methodi 00:00: st 00 Myelopathy Myelopathy Disease Active H jordan of of 06-06 Methodi cervical cervical 00:00: st spinal spinal 00 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 radiculopa thy thy Cerebrovas Cerebrovas Disease Active H jordan cular cular 06-06 Methodi accident accident 00:00: st (CVA) (CVA) 00 SVT SVT Disease Active [place] (supravent (supravent 06-06 Me thodi ricular ricular 00:00: st tachycardi tachycardi 00 a) a) 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 06-06 Method i lymphocyti lymphocyti 00:00: st 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) Hypertensi Hypertensi Disease Active M D on on Anderso n Other Other Disease Active MD abnormalit abnormalit An derso ies of ies of n gait and gait and mobility mobility Activity Activity Disease Active MD of daily of daily Isra o living living n (ADL) (ADL) alteration alteration Hematoma Problem Resolve 2018-03-27 Me moria (disorder) d 14:50:09 l Hematoma Dieudonne n (disorder) Resolved Problem 03/27/2018 Lucius [facility], PRECIOUS [place], PRECIOUS Chavez,M H PRECIOUS [facility], [place] Tobacco Tobacco Disease Active [facility] use use [facility] Long-term Long-term Disease Resolve 2020-04-15 2020-04-15 (current) (current) d 03-09 00:00:00 20:20:44 Anderso use of use of 00:00: n insulin insulin 00 Other Other Disease Resolve 2020-04-15 2020-04-15 elevated elevated d 03-05 00:00:00 20:20:26 An derso white white 00:00: n blood cell blood cell 00 count count Electrolyt Electrolyt Disease Resolve 2020-04-15 2020-04-15 e and e and d 03-05 00:00:00 20:20:30 Isra o fluid fluid 00:00: n disorders disorders 00 not not elsewhere elsewhere classified classified Severe Severe Disease Resolve 2020-04-15 2020-04-15 protein-ca protein-ca d 03-05 00:00:00 20:20:56 Anderso ulisses ulisses 00:00: n malnutriti malnutriti 00 on on Aneurysm Aneurysm Disease Resolve 2019-12-13 2019-12-[address] [facility] of d 00:00:00 12:14:57 [facility] - infrarenal infrarenal Me dical abdominal abdominal Cent er aorta aorta History of Past Illness Condition Condition Condition Status Onset Resolution Last Treating Co mments Source Name Details Category Date Date Treatment Clinician Date Obstructiv Problem 2017-06-01 2017-06-01 Memoria e and 4-20 02:24:06 02:24:06 l reflux 05:00: [place] uropathy, Obstructiv 00 unspecifie e and d reflux uropathy, unspecifie d 05/26/2017 06/01/2017 [place] Hematuria, Problem 2017-2017-06-01 2017-06-01 Memoria unspecifie 4-20 02:24:06 02:24:06 l d 05:00: [place] Hematuria, 00 unspecifie d 05/26/2017 06/01/2017 [place] Allergies, Adverse Reactions, Alerts Allergy Allergy Status Severity Reaction(s) Onset Inactive Treating Comm ents Source Name Type Date Date Clinician EPINEPHR Allergy Active ENCCLR INE 4-19 15:34: 12 EPINEPHR Allergy Active ENCCLR INE 4-19 15:34: 12 EPINEPHR Allergy Active ENCCLR INE 05-25 15:34: 12 EPINEPHR Allergy Active ENCCLR INE 05-25 15:34: 12 CIPRO Allergy Active ENCCLR 05-25 15:33: 58 CIPRO Allergy Active ENCCLR 05-25 15:33: 58 CIPRO Allergy Active ENCCLR 05-25 15:33: 58 CIPRO Allergy Active ENCCLR 05-25 15:33: 58 Ciproflo Propensi Active Palpitations Heart [facility] xacin ty to 09-07 rate [facility] - adverse 00:00: increase. Medica l reaction 00 [place] Propensi Active Swelling 2016-02 Lip and [place] ty to 24 tongue Methodi adverse 00:00: swelling st reaction 00 s to drug [place] Propensi Active Swelling 2016-[address] [facility] ty to 2 tongue [facility] - adverse 00:00: swelling Medical [...] Makes him [facility] e ty to 23 extremely [facility] - adverse 00:00: depressed Medica l reaction 00 [place] s Pseudoep Propensi Active Other (See 2016-[address] hedrine ty to Comments) 2-23 heart [facility] - adverse 00:00: beat Medical reaction 00 Center s Meperidi Drug Active 2016-[address] [facility] ne Allergy 11 reaction( [facility] - 00:00: s): Medical 00 Unknown Center Family History Family Member Diagnosis Comments Start Date Stop Date Source Natural father Cancer [place] [facility] Natural father Hypertension Leon Yazdanism Natural father Aneurysm [facility] [place] Natural mother Arthritis [place] [facility] Natural mother COPD [facility] [place] Social History Social Habit Start Date Stop Date Quantity Comments Source History of tobacco Current sm[facility] Exposure to Not sure MD De La [place] SARS-CoV-2 (event) Alcohol intake 2020-04-21 2020-04-21 Ex-drinker MD Sara lay 00:00:00 00:00:00 (finding) Cigarettes smoked 2020-01-07 2020-01-[address] [facility] - current (pack per 00:00:00 00:00:00 Medical Center day) - Reported Cigarette 2020-01-07 2020-01-[address] [facility] - pack-years 00:00:00 00:00:[address] [facility] Tobacco use and 2020-01-07 2020-01-[address] Yaa kes - exposure 00:00:00 00:00:[address] [facility] Social History 2017-05-27 2017-05-27 [facility] 07:50:10 07:50:10 Alcohol Comment 2016-05-25 2016-05-25 willis Ortiz ethodist 00:00:00 00:00:00 [birth year] MD Dhaliwal on 00:00:00 00:00:00 Smoking Status Start Date Stop Date Source Former smoker 2020-01-07 00:00:00 2020-01-07 00:00:00 [facility] Social History 2016-07-21 10:16:13 [facility] Medications Ordered Filled Start Stop Current Ordering Indication Dosage Frequency Signature Comments Components Source Medication Medication Date Date Medication? Clinician (SIG) Name Name nebivolol Yes 10mg Take 10 mg MD (BYSTOLIC) 6-21 by mouth Bill so 10 mg 19:13: every n tablet 48 evening. glipiZIDE Yes Drug TAKE 1 MD (GLUCOTROL) 6-16 induced TABLET(5 A nderso 5 mg tablet 00:00: diabetes MG) BY n 00 mellitus MOUTH with EVERY hyperglycem MORNING ia BEFORE BREAKFAST. DO NOT TAKE IF NOT EATING. 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 glipiZIDE 2020- No Drug 5mg Take 1 MD (GlucotroL) 3-15 06-16 induced tablet (5 Anderso 5 mg tablet 00:00: 00:00 diabetes mg) by n 00 :00 mellitus mouth with every hyperglycem morning ia before breakfast for 90 days. Do not take if not eating. Do not take if glucose is less than 100 mg/dL. bisoprolol Yes Hypertensio 10mg Take 1 MD (ZEBETA) 10 3-14 n tablet (10 An derso mg tablet 00:00: mg) by n 00 mouth daily. predniSONE 2020- No 60mg Take 60 mg MD (DELTASONE) 3-10 03-10 by mouth And erso 10 mg 22:06: 00:00 daily. n tablet 23 :00 telmisartan 2020- No hypertensio 1{tbl} Take 1 MD -hydroCHLOR 3-10 03-10 n tablet by An derso Othiazide 22:06: 00:00 mouth n (MICARDIS 23 :00 daily. HCT) 40 mg-12.5 mg per tablet clopidogrel Yes Drug 75mg Take 1 MD (PLAVIX) 75 3-10 induced tablet (75 Anderso mg tablet 00:00: diabetes mg) by n 00 mellitus mouth with daily. hyperglycem ia dilTIAZem Yes Drug 240mg Take 1 MD (CARDIZEM 3-10 induced capsule Young rso CD) 240 mg 00:00: diabetes (240 mg) n 24 hr 00 mellitus by mouth capsule with daily. hyperglycem Hold for ia pulse <50 bpm &/ OR Systolic BP <100 mmHg. Do NOT crush, break or chew. folic acid Yes Drug 5mg Take 5 MD (FOLVITE) 1 3-10 induced tablets (5 Anderso mg tablet 00:00: diabetes mg) by n 00 mellitus mouth with daily. hyperglycem ia predniSONE Yes Drug 5mg Take 1 MD (DELTASONE) 3-10 induced tablet (5 Anderso 5 mg tablet 00:00: diabetes mg) by n 00 mellitus mouth with daily. hyperglycem ia sulfamethox Yes Pneumocysti 1{tbl} Take 1 MD azole-trime 3-10 s jiroveci tablet by Anderso thoprim 00:00: pneumonia mouth 3 n (Bactrim 00 prevention (three) DS) 800 times a mg-160 mg week per tablet Monday, Monday and Monday. SITagliptin 2020- No Drug 100mg Take 1 MD (JANUVIA) 3-10 03-15 induced tablet Young rso 100 mg 00:00: 00:00 diabetes (100 mg) n tablet 00 :00 mellitus by mouth with daily. hyperglycem ia pantoprazol 2020- No 40mg Take 40 mg MD e 04-14 by mouth Anderso (PROTONIX) 19:04: 00:00 daily with n 40 mg EC 48 :00 breakfast. tablet allopurinol Yes Drug 300mg Take 1 MD (ZYLOPRIM) 3- induced tablet Young rso 300 mg 00:00: diabetes (300 mg) n tablet 00 mellitus by mouth with daily. hyperglycem ia melatonin 5 Yes Chronic 5mg Take 1 M D mg tab 04-14 lymphoid tablet (5 Young rso tablet 00:00: leukemia, mg) by n 00 disease mouth at bedtime. pantoprazol Yes prevention 40mg Take 1 MD e 04-14 of tablet (40 Anderso (PROTONIX) 00:00: NSAID-induc mg) by n 40 mg EC 00 ed gastric mouth tablet ulcer daily with breakfast. rosuvastati Yes Drug 10mg Take 1 MD n (CRESTOR) 3- induced tablet (10 Anderso 10 mg 00:00: diabetes mg) by n tablet 00 mellitus mouth with daily. hyperglycem ia bisoprolol Yes Drug 10mg Take 1 MD (ZEBETA) 10 3-09 induced tablet (10 Anderso mg tablet 00:00: diabetes mg) by n 00 mellitus mouth with daily. hyperglycem Hold for ia HR <50 bpm &/ OR SBP <100 mmHg. Take at bed time SITagliptin 2020- No Drug 100mg Take 1 MD (JANUVIA) 3-09 03-10 induced tablet Young rso 100 mg 00:00: 00:00 diabetes (100 mg) n tablet 00 :00 mellitus by mouth with daily. hyperglycem ia bisoprolol 2020- No Drug 10mg Take 1 MD (ZEBETA) 10 3-09 03-09 induced tablet (10 Anderso mg tablet 00:00: 00:00 diabetes mg) by n 00 :00 mellitus mouth with daily. hyperglycem Hold for ia HR <50 bpm &/ OR SBP <100 mmHg.Take at bed time ferrous 325mg Take 325 MD sulfate 325 04-03-27 mg by Isra o mg (65 mg 04:41: 00:00 mouth n elemental 07 :00 daily. iron per tablet) tablet predniSONE Autoimmune 10mg Take 1 MD (DELTASONE) 04-03 hemolytic tablet (10 Anderso 10 mg 00:00: 00:00 anemia, mg) by n tablet 00 :00 unspecified mouth , not daily. otherwise specified SITagliptin Drug 100mg Take 1 MD (JANUVIA) 04-03 induced tablet Young rso 100 mg 00:00: 00:00 diabetes (100 mg) n tablet 00 :00 mellitus by mouth with daily. hyperglycem ia melatonin 5 Chronic 5mg Take 1 MD mg tab 04-02 lymphoid tablet (5 And erso tablet 00:00: 00:00 leukemia, mg) by n 00 :00 disease mouth at bedtime. predniSONE Chronic 40mg Take 4 M D (DELTASONE) 03-10 lymphoid tablets Anderso 10 mg 00:00: 00:00 leukemia, (40 mg) by n tablet 00 :00 disease mouth daily. 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 Hold of blood sugar is less than 120 mg/dL sulfamethox Pneumocysti 1{tbl} Take 1 MD azole-trime 03-09 s jiroveci tablet by Anderso thoprim 00:00: 00:00 pneumonia mouth 3 n (Bactrim 00 :00 prevention (three) DS) 800 times a mg-160 mg week per tablet Monday, Monday and Monday. pantoprazol prevention 40mg Take 1 MD e 03-09 of tablet (40 Anderso (PROTONIX) 00:00: 00:00 NSAID-induc mg) by n 40 mg EC 00 :00 ed gastric mouth tablet ulcer daily with breakfast. Imbruvica MD 420 mg 02-26 Anderso tablet 00:00: 00:00 n 00 :00 valACYclovi 1{tbl} Take 1 M D r (VALTREX) 02-14 tablet by An derso 500 mg 00:00: 00:00 mouth n tablet 00 :00 daily. ondansetron {tbl} Dissolve 1 MD (ZOFRAN-ODT 02-14 tablet on An derso ) 4 mg 00:00: 00:00 the tongue n disintegrat 00 :00 every 6 ing tablet (six) hours as needed. allopurinol 1{tbl} Take 1 M D (ZYLOPRIM) 02-14 tablet by And erso 300 mg 00:00: 00:00 mouth n tablet 00 :00 daily. ferrous 1{tbl} Take 1 MD sulfate 325 02-10 tablet by An derso mg (65 mg 00:00: 00:00 mouth n elemental 00 :00 daily. iron per tablet) tablet telmisartan 2019-02 1{tbl} Take 1 M D -hydroCHLOR 03-04 tablet by An derso Othiazide 00:00: 00:00 mouth n (MICARDIS 00 :00 daily. HCT) 40 mg-12.5 mg per tablet rosuvastati 2019-02 1{tbl} Take 1 M D n (CRESTOR) 03-14 tablet by An derso 10 mg 00:00: 00:00 mouth n tablet 00 :00 daily. rosuvastati 2019-02 Yes 10mg Take [address] [facility] n (CRESTOR) 1-30 by mouth Luke [facility] - 10 MG 14:40: At bedtime Medica l tablet 15 . [place] traMADoL 2019-02 No 50mg Take [address] [facility] (Ultram) 50 30 11-30 tablet (50 L ukes - mg tablet 00:00: 23:59 mg total) Me dical 00 :00 by mouth Center every 6 (six) hours as needed for Pain. Max Daily Amount: 200 mg aspirin 81 2019-02 No 81mg QD Take [address] [facility] MG EC 02-18-13 tablet (81 [facility] - tablet 00:00: 23:59 [...] QD Take [address] [facility] MG EC 02-1812 tablet (81 [facility] - tablet 00:00: 00:00 mg total) Medic al 00 :00 by mouth Center daily. nebivoloL 2019-02 No 10mg QD Take 1 [facility] (BYSTOLIC) 02-18-12 tablet (10 Yaa kes - 10 MG 00:00: 00:00 mg total) Medica l tablet 00 :00 by mouth Center daily for 60 days. VALSARTAN 2019-02- No 160mg QD Take [address] ORAL -12 11-12 mg by [facility] - 08:27: 00:00 mouth Medical 51 :00 daily . [place] nebivolol 2019-02- No 5mg QD Take [address] (BYSTOLIC) 02-17- by mouth Luke s - 5 MG tablet 08:27: 00:00 nightly. M edical 51 :00 [place] nebivolol 2019-02- No 10mg QD Take [address] (BYSTOLIC) 02-17-12 by mouth Luke s - 10 MG 08:27: 00:00 daily Medical tablet 51 :00 Taken in Center AM. dilTIAZem 2019-02- No 240mg QD Take [address] (CARDIZEM -12 11-12 mg by [facility] - CD) 240 MG 08:27: 00:00 mouth Medic al 24 hr 51 :00 daily. Center capsule clopidogrel 2019-02 75mg QD Take [address] [facility] (PLAVIX) 75 02-17 by mouth Sonia es - mg tablet 08:27: 00:00 daily. Medic al 51 :00 Center aspirin 81 2019-02 81mg QD Take [address] MG EC 02-17 by mouth [facility] - tablet 08:27: 00:00 daily. Medical 51 :00 Center clopidogreL 2019-02 75mg QD Take [address] [facility] [address] (PLAVIX) 75 02-17 tablet (75 L ukes - mg tablet 00:00: 23:59 mg total) Me dical 00 :00 by mouth Center daily for 60 days. dilTIAZem 2019-02 60mg Take 1 [facility] (CARDIZEM) 02-17 tablet (60 Yaa kes - 60 MG 00:00: 23:59 mg total) Medica l tablet 00 :00 by mouth Center every 6 (six) hours for 60 days. dilTIAZem 2019-02 60mg Take 1 [facility] (CARDIZEM) 02-17 tablet (60 Yaa kes - 60 MG 00:00: 00:00 mg total) Medica l tablet 00 :00 by mouth Center every 6 (six) hours for 60 days. clopidogreL 2019-02 75mg QD Take [address] (PLAVIX) 75 02-17 tablet (75 L ukes - mg tablet 00:00: 00:00 mg total) Me dical 00 :00 by mouth Center daily for 60 days. chlorhexidi 2019-02 [facility] ne 02-09 [facility] - (HIBICLENS) 11:16: 08:27 Medic al external 54 :48 Center liquid 4% diltiazem 2019-02 1{tbl} Take 1 MD (CARDIZEM 1-03 03-10 tablet by Young IRWIN) 240 mg 00:00: 00:00 mouth n 24 hr 00 :00 daily. tablet clopidogrel 2019-02 1{tbl} Take 1 M D (PLAVIX) 75 0-30 03-10 tablet by An derso mg tablet 00:00: 00:00 mouth n 00 :00 daily. Bystolic 10 2019-02- No 1{tbl} Take 1 M D mg tablet 0-30 03-10 tablet by Young rso 00:00: 00:00 mouth n 00 :00 daily. chlorhexidi 2019-02- No Aneurysm of 1{bottl Apply [address] [facility] [facility] ne 0-30 10-30 infrarenal e} Bottle [facility] - gluconate 2 00:00: 23:59 abdominal topically Medical % Liqd 00 :00 aorta (HCC) once for 1 Center dose. valsartan-h 2019-02- No 1{tbl} QD Take [address] ydrochlorot 0-12 11-12 tablet by Yaa kes - hiazide 00:00: 00:00 mouth Medical (DIOVAN-HCT 00 :00 daily. Center ) 160-12.5 mg per tablet dorzolamide No 1[drp] Administer (TRUSOPT) 10-28 1 drop to Young rso 2% 00:00: 00:00 the right n ophthalmic 00 :00 eye twice solution daily. Docusate No Notes: Memoria Sodium 50 4-23 (Same as l MG / 22:00: Senokot-S) [place] sennosides, 00 Equiv. to [facility] 8.6 MG Rachelle-Colac Oral Tablet e. Docusate Yes 1 tab, PO, Mem oria Sodium 50 4-23 BID, X 14 l MG / 17:38: day, # 28 [place] sennosides, 00 tab, 0 [facility] 8.6 MG Refill(s), Oral Tablet [facility] [id number] [facility] Yes 500 mg = 1 Memoria in 500 mg 4-23 tab, PO, l oral tablet 17:38: Q12H, X 7 H ermann 00 day, # 14 tab, 0 Refill(s), Pharmacy: [facility] [id number] Cipro No Notes: May Memori a 4-23 interfere l 14:00: w/enteral [place] 00 feedings - Take 1 hr before or 2 hrs after antacids, dairy pdt & minerals. On empty stomach. Normal No Notes: For Memor ia Saline for 4-23 irrigation l Irrigation 02:30: only. Dieudonne n 00 Sodium No Notes: For Memor ia Chloride 4-23 irrigation l 02:22: only. [place] 00 Diltiazem No Notes: Memori a Hydrochlori 4-22 (Same as: l de ER 21:00: Cardizem Tyree 00 CD) Do Not Crush Before meals. 24 [...] 0 Memori a 4-22 Refill(s) l 15:24: [place] nebivolol Yes 10 mg = 1 Mem oria 10 MG Oral 4-22 tab, PO, l Tablet 15:24: Daily, 0 [place] [Bystolic] 00 Refill(s) Bystolic No Notes: Memoria 4-22 (same as: l 14:00: Bystolic) [place] 00 Crestor No Notes: Memoria 4-22 (Same As: l 02:00: Crestor) [place] Docusate No Notes: Memoria 4-21 (Same as: l 14:00: Colace) [place] (Do Not Crush) Lisinopril No Notes: Memor ia 4-21 (Same as: l 14:00: Prinivil, [place] 00 Zestril) Clonidine No Notes: Memori a [...] Acetaminoph No Notes: Do M emoria en -21 not exceed l 07:05: 4 gm/day. [place] 00 (Same as: Tylenol) Acetaminoph No Notes: Juan Alberto verónica en 325 MG / - (Same as: l Hydrocodone 07:05: [place] nn Bitartrate 00 325/5) Do 5 MG Oral not exceed Tablet 4gm/day of acetaminop hen. Morphine No Notes: Memoria - (Same l 07:05: as:MORPhin [place] e Sulfate) Ondansetron No Notes: Juan Alberto verónica -21 (Same as: l 07:05: Zofran) [place] 00 MEDICATION WASTE Product Size: 4 mg Product Wasted: ___ mg Irrigation No Notes: For M emoria w/ Normal -21 irrigation l Saline 07:00: only. [place] 00 Sodium No Notes: For Memor ia Chloride - irrigation l 0.0769 07:00: only. [place] MEQ/ML 00 Irrigation Solution Sodium No 250 mL, Memoria Chloride 05-27 Rate: To l 0.9% 06:25: prime line [place] (titrate) 00 and flush 250 mL remaining blood products., Dosing Weight 89.545, kg, Route: IV, Total Volume: 250, Start Date: 05/27/17 1:25:00 CDT, Duration: 30 day, Stop date: 06/26/17 1:24:00 CDT, Replace Every: 24 hr Irrigation No Notes: For M emoria w/ Normal 4-21 irrigation l Saline 05:58: only. [place] 00 Irrigation No Notes: For M emoria w/ Normal 4-21 irrigation l Saline 04:45: only. [place] 00 Saline No Notes: Memoria Flush 0.9% 05-27 (Same as: l 04:12: BD [place] 00 Posiflush) Phenazopyri No 100 mg = 1 Memoria dine - tab, PO, l hydrochlori 03:10: TID, PRN Garfield bailey de 100 MG 00 Dysuria, X Oral Tablet 2 day, # 6 [Pyridium] tab, 0 Refill(s) Acetaminoph No 1 - 2 tab, Memoria en 300 MG / 4-21 PO, Q4H, l Codeine 03:08: PRN Pain, [place] nn Phosphate 00 X 2 day, # 60 MG Oral 12 tab, 0 Tablet Refill(s) [Tylenol with Codeine #4] Acetaminoph No 2 tab, Juan Alberto verónica en 325 MG / 4-21 Route: PO, l Hydrocodone 01:45: Drug Form: [place] Bitartrate 00 TAB, 5 MG Oral Dosing Tablet Weight [[place] 89.545, 5/325] kg, ONCE, STAT, Start date: [...] tablet 1-30 QD Methodi 00:00: st 00 aspirin 81 2016-02 Yes 1{tbl} Take 1 MD mg EC 1-28 tablet by Anderso tablet 00:00: mouth n 00 daily. diltiazem No Notes: DO Mem oria - NOT CRUSH. l 13:38: Ty[place] Lisinopril No Notes: Memor ia 09-23 (Same as: l 14:00: Prinivil, Tyree 00 Zestril) Famotidine Yes 20 mg = 1 [...] MG Oral # 90 tab, Tablet 0 [[place] Refill(s) 10/325] Methocarbam Yes 500 mg = 1 Memoria ol 500 MG 8-18 tab, PO, l Oral Tablet 10:44: Q8H, PRN He rmann [Robaxin] 00 Spasms, X 10 day, # 30 tab, 0 Refill(s) {21 Yes See Memoria (Methylpred -18 Instructio l nisolone 4 10:44: ns, PO, Herm torin MG Oral 00 Take by Tablet mouth as [Medrol]) } directed Pack on label., [Medrol # 1 Pack, Dosepak] 0 Refill(s) Flomax No Notes: Memoria -18 (Same As: l 06:28: Flomax) [place] 00 "Do Not Crush" Cefazolin No Notes: Memori a -18 (Same As: l 03:00: Ancef, Tyree Kefzol) Cefazolin FOR IV SET ONLY MEDICATION WASTE Product Size: 1000 mg Product Wasted: _0__ mg Saline No Notes: [facility] Flush 0.9% 09-23 (Same as: l 02:00: BD Tyree 00 Posiflush) Dexamethaso No Notes: Juan Alberto verónica ne 8- Give with l 23:00: food. Tyree (Same As: Decadron) Famotidine No Notes: Memor ia 20 MG Oral 09-22 (Same as: l Tablet 22:00: Pepcid) Docusate No Notes: Memoria 8- (Same as: l 22:00: Colace) (Do Not Crush) sennosides, No Notes: Juan Alberto verónica [facility] - (Same as: l 22:00: Senokot) Clonidine No Notes: Memori a Hydrochlori 09-22 (Same As: l de 0.1 MG 22:00: Catapres) Her garcia Oral Tablet 00 Ondansetron No Notes: Juan Alberto verónica 09-22 (Same as: l 21:37: Zofran) MEDICATION WASTE Product Size: 4 mg Product Wasted: ___ mg Naloxone No Notes: Memoria 09-22 Same as l 21:37: Narcan Flumazenil No Notes: Memor ia 09-22 (Same as: l 21:37: Romazicon) Hydralazine No Notes: Juan Alberto verónica - (Same as: l 21:37: Apresoline ) Push over 5 minutes Hydromorpho No Notes: Juan Alberto verónica ne 09-22 Same as: l 21:37: Dilaudid Oxycodone No Notes: Memori a - (Same as: l 21:37: Roxicodone ) Bisacodyl No Notes: Memori a 8-17 (Same As: l 21:11: Dulcolax, Bisco-Lax) phenol No Notes: Memoria 09-22 Chlorasept l 21:11: ic [place] (Same as: Chlorasept ic, Sore Throat [place]) WASTE: F/P - Black; E - Municipal Trash Bin Melatonin 3 No Notes: Juan Alberto verónica MG Extended 09-22 (Same as: l Release 21:11: Melatonin) Herm torin Tablet 00 Benadryl No Notes: [facility] 09-22 (Same as: l 21:11: Benadryl) [place] Saline No Notes: [facility] Flush 0.9% 09-22 (Same as: l 21:11: BD [place] 00 Posiflush) Robaxin No Notes: Memoria 09-22 (Same l 21:11: as:Robaxin ) Hydralazine No Notes: Juan Alberto verónica 09-22 (Same as: l 21:11: Apresoline ) Push over 5 minutes Labetalol No 10 mg, 2 Juan Alberto verónica 09-22 mL, Route: l 21:11: IVP, Drug form: INJ, Q15Min, Dosing Weight 93.182, kg, PRN Hypertensi on, Start date: 09/22/16 16:11:00 CDT, Duration: 30 day, Stop date: 10/22/16 16:10:00 CDT Ondansetron No Notes: Juan Alberto verónica 09-22 (Same as: l 21:11: Zofran) MEDICATION WASTE Product Size: 4 mg Product Wasted: ___ mg Acetaminoph No Notes: Do M emoria en 325 MG / 09-22 not exceed l Hydrocodone 21:11: 4gm/day of [place] Bitartrate 00 acetaminop 10 MG Oral hen. Tablet (Same as: [[place] 10/325] 325/10) Dilaudid No Notes: Memoria 09-22 Same as: l 21:11: Dilaudid ceFAZolin No Notes: Memori a 09-22 Same as: l 08:00: Ancef [place] rosuvastati Yes TK 1 T PO [place] n (CRESTOR) 3-22 QD Methodi 10 MG 00:00: st tablet 00 Vital Signs Vital Name Observation Time Observation Value Comments Source WEIGHT 2020-06-10 17:42:39 79.5 kg WEIGHT 2020-06-10 17:42:39 79.5 kg WEIGHT 2020-05-13 14:48:00 76 kg WEIGHT 2020-05-13 14:48:00 76 kg WEIGHT 2020-04-14 06:10:00 80.7 kg HEIGHT 2020-03-27 19:47:21 177.8 cm WEIGHT 2020-04-14 06:10:00 80.7 kg HEIGHT 2020-03-27 19:47:21 177.8 cm Systolic blood 2020-07-28 02:45:00 132 mm[Hg] pressure Diastolic blood 2020-07-28 02:45:00 80 mm[Hg] MD Shelby curtis pressure Heart rate 2020-07-28 02:45:00 85 /min MD Khan kacey Body temperature 2020-07-28 02:45:00 36.89 Alexia MD Iris hackett Respiratory rate 2020-07-28 02:45:00 18 /min MD Iris hackett Oxygen saturation in 2020-07-28 02:45:00 98 /min MD De La Paz Arterial blood by Pulse oximetry Body weight 2020-07-27 21:29:14 78.9 kg MD Khan son BMI 2020-07-27 21:29:14 24.96 kg/m2 MD Khan kacey Body height 2020-03-28 01:47:21 177.8 cm MD Khan kacey Systolic blood 2020 14:00:00 140 mm[Hg] [facility] Diastolic blood 2020 14:00:00 66 mm[Hg] [facility] Heart rate 2020 14:00:00 58 /min [facility] Respiratory rate 2020 14:00:00 18 /min [facility] Oxygen saturation in 2020 13:00:00 98 /min [facility] Arterial blood by Medical Ce nter Pulse oximetry Body temperature 2020 11:52:00 48 Alexia [facility] Body height 2020 08:39:00 180.3 cm [facility] Body weight 2020 08:39:00 85.276 kg [facility] BMI 2020 08:39:00 26.23 kg/m2 [facility] Heart Rate 2017-05-29 16:49:00 [facility] [place] Temperature Oral (F) 2017-05-29 16:49:00 97.8 F [facility] [place] Respitory Rate 2017-05-29 16:49:00 Memori al [place] Systolic (mm Hg) 2017-05-29 16:49:00 Juan Alberto rial [place] Diastolic (mm Hg) 2017-05-29 16:49:00 Mem orial [place] Respitory Rate 2017-05-29 13:20:00 Memori al [place] Heart Rate 2017-05-29 13:20:00 [facility] [place] Temperature Oral (F) 2017-05-29 13:20:00 97.4 F [facility] [place] Systolic (mm Hg) 2017-05-29 13:20:00 Juan Alberto rial [place] Diastolic (mm Hg) 2017-05-29 13:20:00 Mem orial [place] Respitory Rate 2017-05-29 08:34:00 [facility] [place] Temperature Oral (F) 2017-05-29 08:34:00 98 F [facility] [place] Heart Rate 2017-05-29 08:34:00 [facility] [place] Systolic (mm Hg) 2017-05-29 08:34:00 Juan Alberto rial [place] Diastolic (mm Hg) 2017-05-29 08:34:00 Mem orial [place] BMI Calculated 2017-05-27 08:46:00 [facility] al [place] Height 2017-05-27 08:46:00 177.8 cm [facility] [place] Weight 2017-05-27 08:46:00 [facility] [place] Weight 2017-05-27 00:09:00 [facility] [place] Weight 2016-12-28 18:56:00 [facility] [place] BMI Calculated 2016-12-28 18:56:00 [facility] [place] Height 2016-12-28 18:56:00 177.8 cm [facility] [place] Heart Rate 2016-12-28 18:56:00 [facility] [place] Systolic (mm Hg) 2016-12-28 18:56:00 Juan Alberto rial [place] Diastolic (mm Hg) 2016-12-28 18:56:00 Mem orial [place] Temperature Oral (F) 2016-12-28 18:56:00 97.8 F [facility] [place] Heart Rate 2016-09-24 12:50:00 [facility] [place] Temperature Oral (F) 2016-09-24 12:50:00 97.5 F [facility] [place] Respitory Rate 2016-09-24 12:50:00 [facility] al [place] Systolic (mm Hg) 2016-09-24 12:50:00 Juan Alberto rial [place] Diastolic (mm Hg) 2016-09-24 12:50:00 Mem orial [place] Heart Rate 2016-09-24 08:43:00 [facility] [place] Systolic (mm Hg) 2016-09-24 08:43:00 Juan Alberto rial [place] Diastolic (mm Hg) 2016-09-24 08:43:00 Mem orial [place] Respitory Rate 2016-09-24 08:43:00 Memori al [place] Temperature Oral (F) 2016-09-24 08:43:00 98.5 F [facility] [place] Temperature Oral (F) 2016-09-24 04:44:00 98.1 F [facility] [place] Systolic (mm Hg) 2016-09-24 04:44:00 Juan Alberto rial [place] Diastolic (mm Hg) 2016-09-24 04:44:00 Mem orial [place] Respitory Rate 2016-09-24 04:44:00 [facility] [place] Heart Rate 2016-09-24 04:44:00 [facility] [place] BMI Calculated 2016-09-22 15:39:00 [facility] al [place] Weight 2016-09-22 15:39:00 [facility] [place] Height 2016-09-22 15:39:00 177.8 cm [facility] [place] Weight 2016-09-19 20:20:00 [facility] [place] BMI Calculated 2016-09-19 20:20:00 [facility] [place] Height 2016-09-19 20:20:00 177.8 cm [facility] [place] Procedures Procedure Date / Time Performing Clinician Source Performed TOTAL PROTEIN 2020-07-27 17:39:00 Apollo Akers MD ALBUMIN LEVEL 2020-07-27 17:39:00 Apollo Akers MD CALCIUM LEVEL TOTAL 2020-07-27 17:39:00 Apollo Akers MD PHOSPHORUS LEVEL 2020-07-27 17:39:00 Apollo Akers MD GLUCOSE, RANDOM 2020-07-27 17:39:00 Apollo Akers MD BLOOD UREA NITROGEN 2020-07-27 17:39:00 Apollo Akers MD SERUM CREATININE 2020-07-27 17:39:00 Apollo Akers MD URIC ACID 2020-07-27 17:39:00 Apollo Akers MD FRACTIONATED BILIRUBIN 2020-07-27 17:39:00 Apollo Akers MDson ALKALINE PHOSPHATASE 2020-07-27 17:39:00 Apollo Akers MD Young rson LACTATE DEHYDROGENASE 2020-07-27 17:39:00 Apollo Akers erson ALANINE AMINOTRANSFERASE 2020-07-27 17:39:00 Apollo Akers MD ELECTROLYTE PANEL 2020-07-27 17:39:00 AkersApollo MD n MAGNESIUM LEVEL 2020-07-27 17:39:00 AkersApollo MD ASPARTATE AMINOTRANSFERASE 2020-07-27 17:39:00 AkersApollo IMMUNOGLOBULIN A SERUM 2020-07-27 17:39:00 AkersApollo MD BETA 2 MICROGLOBULIN 2020-07-27 17:39:00 Apollo Akers MD rson RETICULOCYTE COUNT 2020-07-27 17:39:00 Apollo Akers MD on AUTOMATED TYPE AND SCREEN 2020-07-27 17:39:00 Apollo Akers MD COMPLETE BLOOD COUNT W/ 2020-07-27 17:39:00 Apollo Akers MD nderson DIFFERENTIAL SERUM CREATININE 2020-07-27 17:39:00 Apollo Akers MD .GLOMERULAR FILTRATION RATE 2020-07-27 17:39:00 Apollo Akers MD ABORH 2020-07-27 17:39:00 Apollo Akers MD Results CBC 2020-07-27 17:39:00 Apollo Akers MD MANUAL DIFFERENTIAL 2020-07-27 17:39:00 Apollo Akers MD ANTIBODY SCREEN 2020-07-27 17:39:00 Apollo Akers MD CLOT EXPIRATION DATE 2020-07-27 17:39:00 Apollo Akers MD Young rson TMP INTERPRETATION ANTIBODY 2020-07-27 17:39:00 Apollo Akers MD SCREEN NEGATIVE TOTAL PROTEIN 2020-06-10 18:59:00 TorresBel MD Pool ALBUMIN LEVEL 2020-06-10 18:59:00 TorresBel MDiq CALCIUM LEVEL TOTAL 2020-06-10 18:59:00 Torres, Bel SCHMIDT Bill son Pool PHOSPHORUS LEVEL 2020-06-10 18:59:00 TorresBel MD Pool GLUCOSE, RANDOM 2020-06-10 18:59:00 Torres, Bel De La Paz Pool BLOOD UREA NITROGEN 2020-06-10 18:59:00 Torres, Bel SCHMIDT Bill son Pool SERUM CREATININE 2020-06-10 18:59:00 TorresBel MDiq URIC ACID 2020-06-10 18:59:00 TorresBel MDiq FRACTIONATED BILIRUBIN 2020-06-10 18:59:00 TorresBel MDson Pool ALKALINE PHOSPHATASE 2020-06-10 18:59:00 TorresBel MD rson Pool LACTATE DEHYDROGENASE 2020-06-10 18:59:00 Torres, Bel SCHMITD And erson Pool ALANINE AMINOTRANSFERASE 2020-06-10 18:59:00 TorresBel MDiq ELECTROLYTE PANEL 2020-06-10 18:59:00 TorresBel MD n Pool MAGNESIUM LEVEL 2020-06-10 18:59:00 TorresBel MD Pool ASPARTATE AMINOTRANSFERASE 2020-06-10 18:59:00 TorresBel Pool IMMUNOGLOBULIN A SERUM 2020-06-10 18:59:00 TorresBel MD Pool BETA 2 MICROGLOBULIN 2020-06-10 18:59:00 TorresBel MD Young rson Pool RETICULOCYTE COUNT 2020-06-10 18:59:00 TorresBel MD on AUTOMATED Pool TYPE AND SCREEN 2020-06-10 18:59:00 TorresBel byers MDiq COMPLETE BLOOD COUNT W/ 2020-06-10 18:59:00 TorresBel MD nderson DIFFERENTIAL Pool SERUM CREATININE 2020-06-10 18:59:00 MD Brain Tang .GLOMERULAR FILTRATION RATE 2020-06-10 18:59:00 MD Brain Tang ABORH 2020-06-10 18:59:00 MD Brain Tang ANTIBODY SCREEN 2020-06-10 18:59:00 MD Brain Tang Results CBC 2020-06-10 18:59:00 MD Brain Tang MANUAL DIFFERENTIAL 2020-06-10 18:59:00 MD Clyde Bill son Mily CLOT EXPIRATION DATE 2020-06-10 18:59:00 MD Young Tang TMP INTERPRETATION ANTIBODY 2020-06-10 18:59:00 MD Brain Tang SCREEN NEGATIVE Mily TOTAL PROTEIN 2020-05-13 15:08:00 Apollo Akers MD ALBUMIN LEVEL 2020-05-13 15:08:00 Apollo Akers MD CALCIUM LEVEL TOTAL 2020-05-13 15:08:00 Apollo Akers MD son PHOSPHORUS LEVEL 2020-05-13 15:08:00 Apollo Akers MD GLUCOSE, RANDOM 2020-05-13 15:08:00 Apollo Akers MD BLOOD UREA NITROGEN 2020-05-13 15:08:00 Apollo Akers MD son SERUM CREATININE 2020-05-13 15:08:00 Apollo Akers MD URIC ACID 2020-05-13 15:08:00 Apollo Akers MD FRACTIONATED BILIRUBIN 2020-05-13 15:08:00 Apollo Akers MDson ALKALINE PHOSPHATASE 2020-05-13 15:08:00 Apollo Akers MD LACTATE DEHYDROGENASE 2020-05-13 15:08:00 Apollo Akers ALANINE AMINOTRANSFERASE 2020-05-13 15:08:00 Apollo Akers MD ELECTROLYTE PANEL 2020-05-13 15:08:00 Apollo Akers MD n MAGNESIUM LEVEL 2020-05-13 15:08:00 Akers, Apollo De La Paz ASPARTATE AMINOTRANSFERASE 2020-05-13 15:08:00 AkersApollo IMMUNOGLOBULIN A SERUM 2020-05-13 15:08:00 Akers, Apollo Ryan derson BETA 2 MICROGLOBULIN 2020-05-13 15:08:00 Akers, Apollo peters TYPE AND SCREEN 2020-05-13 15:08:00 AkersApollo MD COMPLETE BLOOD COUNT W/ 2020-05-13 15:08:00 Akers, Apollo Simmons nderson DIFFERENTIAL SERUM CREATININE 2020-05-13 15:08:00 Akers, Apollo De La Paz .GLOMERULAR FILTRATION RATE 2020-05-13 15:08:00 AkersApollo bernal MD Results CBC 2020-05-13 15:08:00 AkersApollo MD ABORH 2020-05-13 15:08:00 AkersApollo MD ANTIBODY SCREEN 2020-05-13 15:08:00 Akers, Apollo De La Paz MANUAL DIFFERENTIAL 2020-05-13 15:08:00 Akers, Apollo erazo CLOT EXPIRATION DATE 2020-05-13 15:08:00 Akers, Apollo peters TMP INTERPRETATION ANTIBODY 2020-05-13 15:08:00 Akers, Apollo De La [place]az SCREEN NEGATIVE TOTAL PROTEIN 2020-04-20 18:25:00 AkersApollo MD ALBUMIN LEVEL 2020-04-20 18:25:00 AkersApollo MD CALCIUM LEVEL TOTAL 2020-04-20 18:25:00 Akers, Apollo erazo PHOSPHORUS LEVEL 2020-04-20 18:25:00 AkersApollo MD GLUCOSE, RANDOM 2020-04-20 18:25:00 AkersApollo MD BLOOD UREA NITROGEN 2020-04-20 18:25:00 Akers, Apollo erazo SERUM CREATININE 2020-04-20 18:25:00 AkersApollo MD URIC ACID 2020-04-20 18:25:00 AkersApollo MD FRACTIONATED BILIRUBIN 2020-04-20 18:25:00 Akers, Apollo díazson ALKALINE PHOSPHATASE 2020-04-20 18:25:00 Akers, Apollo Vidal rsronald LACTATE DEHYDROGENASE 2020-04-20 18:25:00 Akers, Apollo Jauregui ALANINE AMINOTRANSFERASE 2020-04-20 18:25:00 Akers, Apollo De La Paz ELECTROLYTE PANEL 2020-04-20 18:25:00 Akers, Apollo Dhaliwalo n MAGNESIUM LEVEL 2020-04-20 18:25:00 Akers, Apollo De La Paz ASPARTATE AMINOTRANSFERASE 2020-04-20 18:25:00 Akers, Apollo De La Paz IMMUNOGLOBULIN A SERUM 2020-04-20 18:25:00 Akers, Apollo curtis BETA 2 MICROGLOBULIN 2020-04-20 18:25:00 Akers, Apollo peters TYPE AND SCREEN 2020-04-20 18:25:00 Akers, Apollo De La Paz COMPLETE BLOOD COUNT W/ 2020-04-20 18:25:00 Akers, Apollo Simmons nderson DIFFERENTIAL SERUM CREATININE 2020-04-20 18:25:00 Akers, Apollo De La Paz .GLOMERULAR FILTRATION RATE 2020-04-20 18:25:00 Apollo Akers MD Results CBC 2020-04-20 18:25:00 AkersApollo MD MANUAL DIFFERENTIAL 2020-04-20 18:25:00 AkersApollo MD Bill son ABORH 2020-04-20 18:25:00 AkersApollo bernal MD ANTIBODY SCREEN 2020-04-20 18:25:00 AkersApollo MD CLOT EXPIRATION DATE 2020-04-20 18:25:00 AkersApollo bernal MD TMP INTERPRETATION ANTIBODY 2020-04-20 18:25:00 Apollo Akers MD SCREEN NEGATIVE BLOODCULTURE 2020-04-20 18:25:00 Apollo Akers MD POC GLUCOSE SCREEN 2020-04-15 17:48:00 Rey Morales MD Isra on POC GLUCOSE SCREEN 2020-04-15 14:44:00 Rey Morales MD on POC GLUCOSE SCREEN 2020-04-15 05:07:00 Rey Morales MD on POC GLUCOSE SCREEN 2020-04-14 23:11:00 eRy Morales MD on COMPLETE BLOOD COUNT W/ 2020-04-14 19:51:00 Loraine Acuña MD DIFFERENTIAL L BASIC METABOLIC PANEL, 2020-04-14 19:51:00 Loraine Acuña MD CALCIUM IONIZED L Results CBC 2020-04-14 19:51:00 Loraine Acuña MDon L MANUAL DIFFERENTIAL 2020-04-14 19:51:00 Loraine Acuña MD L GLUCOSE LEVEL 2020-04-14 19:51:00 Loraine Acuña MD Young rson L BLOOD UREA NITROGEN 2020-04-14 19:51:00 Loraine Acuña MD L ELECTROLYTE PANEL 2020-04-14 19:51:00 Loraine Acuña MD SERUM CREATININE 2020-04-14 19:51:00 Loraine Acuña MD And erson L .GLOMERULAR FILTRATION RATE 2020-04-14 19:51:00 Irvin Acuña MD L CALCIUM IONIZED, VENOUS 2020-04-14 19:51:00 Loraine Acuña MD L POC GLUCOSE SCREEN 2020-04-14 18:09:00 Rey Morales MD on POC GLUCOSE SCREEN 2020-04-14 13:59:00 Rey Morales MD on POC GLUCOSE SCREEN 2020-04-14 04:16:00 Rey Morales MD on POC GLUCOSE SCREEN 2020-04-14 00:19:00 Rey Morlaes MD on POC GLUCOSE SCREEN 2020-04-13 18:20:00 Rey Morales MD on POC GLUCOSE SCREEN 2020-04-13 13:53:00 Rey Morales MD on COMPLETE BLOOD COUNT W/ 2020-04-13 12:28:00 Starla Valenzuela MD DIFFERENTIAL BASIC METABOLIC PANEL, 2020-04-13 12:28:00 Starla Valenzuela MD CALCIUM TOTAL LACTATE DEHYDROGENASE 2020-04-13 12:28:00 Starla Valenzuela MAGNESIUM LEVEL 2020-04-13 12:28:00 Starla Valenzuela MD PHOSPHORUS LEVEL 2020-04-13 12:28:00 Starla Valenzuela MD URIC ACID 2020-04-13 12:28:00 Starla Valenzuela MD PROTHROMBIN TIME 2020-04-13 12:28:00 Starla Valenzuela MD PARTIAL THROMBOPLASTIN TIME 2020-04-13 12:28:00 Starla Valeznuela MD FIBRINOGEN ACTIVITY 2020-04-13 12:28:00 Starla Valenzuela MD Results CBC 2020-04-13 12:28:00 Starla Valenzuela MD MANUAL DIFFERENTIAL 2020-04-13 12:28:00 Starla Valenzuela MD GLUCOSE LEVEL 2020-04-13 12:28:00 Starla Valenzuela MD BLOOD UREA NITROGEN 2020-04-13 12:28:00 Starla Valenzuela MD ELECTROLYTE PANEL 2020-04-13 12:28:00 Starla Valenzuela MD n SERUM CREATININE 2020-04-13 12:28:00 Starla Valenzuela MD .GLOMERULAR FILTRATION RATE 2020-04-13 12:28:00 Starla Valenzuela MD CALCIUM LEVEL TOTAL 2020-04-13 12:28:00 Starla Valenzuela MD POC GLUCOSE SCREEN 2020-04-13 04:24:00 Rey Morales MD on POC GLUCOSE SCREEN 2020-04-13 01:14:00 Rey Morales MD on VRE CULTURE 2020-04-12 23:13:00 Darin Stearns MD POC GLUCOSE SCREEN 2020-04-12 18:50:00 Rey Morales MD on POC GLUCOSE SCREEN 2020-04-12 14:39:00 Rey Morales MD on POC GLUCOSE SCREEN 2020-04-12 05:01:00 Rey Morales MD on POC GLUCOSE SCREEN 2020-04-12 00:06:00 Rey Morales MD on POC GLUCOSE SCREEN 2020-04-11 18:22:00 CarmenRey ni MD on POC GLUCOSE SCREEN 2020-04-11 14:06:00 Rey Morales MD on C REACTIVE PROTEIN 2020-04-11 12:43:00 Darin Stearns MD on POC GLUCOSE SCREEN 2020-04-11 03:17:00 CarmenRey cardenas MD on POC GLUCOSE SCREEN 2020-04-11 00:08:00 CarmenRey MD on POC GLUCOSE SCREEN 2020-04-10 19:01:00 CarmenRey MD on POC GLUCOSE SCREEN 2020-04-10 14:04:00 CarmenRey cardenas MD on HEPATIC FUNCTION PANEL 2020-04-10 12:13:00 Darin Stearns MD COMPLETE BLOOD COUNT W/ 2020-04-10 12:13:00 Darin Stearns MD ndersronald DIFFERENTIAL GLUCOSE, RANDOM 2020-04-10 12:13:00 Darin Stearns MD CALCIUM LEVEL TOTAL 2020-04-10 12:13:00 Darin Stearns MD Bill son BLOOD UREA NITROGEN 2020-04-10 12:13:00 Darin Stearns MD son SERUM CREATININE 2020-04-10 12:13:00 Darin Stearns MD SODIUM LEVEL 2020-04-10 12:13:00 Darin Stearns MD POTASSIUM LEVEL 2020-04-10 12:13:00 Darin Stearns MD MAGNESIUM LEVEL 2020-04-10 12:13:00 Darin Sterans MD CHLORIDE LEVEL 2020-04-10 12:13:00 Darin Stearns MD CARBON DIOXIDE LEVEL 2020-04-10 12:13:00 Darin Stearns MD rsronald PHOSPHORUS LEVEL 2020-04-10 12:13:00 Darin Stearns MD URIC ACID 2020-04-10 12:13:00 Darin Stearns MD LACTATE DEHYDROGENASE 2020-04-10 12:13:00 Darin Stearns ALBUMIN LEVEL 2020-04-10 12:13:00 Darin Stearns MD ALKALINE PHOSPHATASE 2020-04-10 12:13:00 Darin Stearns MD ALANINE AMINOTRANSFERASE 2020-04-10 12:13:00 Darin Stearns MD ASPARTATE AMINOTRANSFERASE 2020-04-10 12:13:00 Darin Stearns TOTAL PROTEIN 2020-04-10 12:13:00 Darin Stearns MD FRACTIONATED BILIRUBIN 2020-04-10 12:13:00 Darin Stearns MD SERUM CREATININE 2020-04-10 12:13:00 Darin Stearns MD .GLOMERULAR FILTRATION RATE 2020-04-10 12:13:00 Darin Stearns MD Results CBC 2020-04-10 12:13:00 Darin Stearns MD MANUAL DIFFERENTIAL 2020-04-10 12:13:00 Darin Stearns MD ANION GAP 2020-04-10 12:13:00 Darin Stearns MD BLOODCULTURE 2020-04-10 12:13:00 Darin Stearns MD POC GLUCOSE SCREEN 2020-04-10 04:29:00 CarmenRey ni MD on POC GLUCOSE SCREEN 2020-04-10 00:59:00 Rey Morales MD on POC GLUCOSE SCREEN 2020-04-09 19:11:00 Rey Morales MD on POC GLUCOSE SCREEN 2020-04-09 14:50:00 Rey Morales MD on HEPATIC FUNCTION PANEL 2020-04-09 13:04:00 Darin Stearns MD COMPLETE BLOOD COUNT W/ 2020-04-09 13:04:00 Darin Stearns MDrsronald DIFFERENTIAL GLUCOSE, RANDOM 2020-04-09 13:04:00 Darin Stearns MD CALCIUM LEVEL TOTAL 2020-04-09 13:04:00 Darin Stearns MD BLOOD UREA NITROGEN 2020-04-09 13:04:00 Darin Stearns MD SERUM CREATININE 2020-04-09 13:04:00 Darin Stearns MD SODIUM LEVEL 2020-04-09 13:04:00 Darin Stearns MD POTASSIUM LEVEL 2020-04-09 13:04:00 Darin Stearns MD MAGNESIUM LEVEL 2020-04-09 13:04:00 Darin Stearns MD CHLORIDE LEVEL 2020-04-09 13:04:00 Darin Stearns MD CARBON DIOXIDE LEVEL 2020-04-09 13:04:00 Darin Stearns MD PHOSPHORUS LEVEL 2020-04-09 13:04:00 Darin Stearns MD URIC ACID 2020-04-09 13:04:00 Darin Stearns MD LACTATE DEHYDROGENASE 2020-04-09 13:04:00 Darin Stearns MD And thomas ALBUMIN LEVEL 2020-04-09 13:04:00 Darin Stearns MD ALKALINE PHOSPHATASE 2020-04-09 13:04:00 Darin Stearns MD ALANINE AMINOTRANSFERASE 2020-04-09 13:04:00 Darin Stearns MD ASPARTATE AMINOTRANSFERASE 2020-04-09 13:04:00 Darin Stearns TOTAL PROTEIN 2020-04-09 13:04:00 Darin Stearns MD FRACTIONATED BILIRUBIN 2020-04-09 13:04:00 Darin Stearns MD SERUM CREATININE 2020-04-09 13:04:00 Darin Stearns MD .GLOMERULAR FILTRATION RATE 2020-04-09 13:04:00 Darin Stearns MD Results CBC 2020-04-09 13:04:00 Darin Stearns MD MANUAL DIFFERENTIAL 2020-04-09 13:04:00 Darin Stearns MD Bill son ANION GAP 2020-04-09 13:04:00 Darin Stearns MD BLOODCULTURE 2020-04-09 13:04:00 Darin Stearns MD POC GLUCOSE SCREEN 2020-04-09 04:46:00 Rey Morales MD on POC GLUCOSE SCREEN 2020-04-08 23:17:00 Rey Morales MD on COVID-19 (SARS-COV-2) 2020-04-08 22:42:00 Rey Morales MD And thomas PCR-ASYMPTOMATIC MC POC GLUCOSE SCREEN 2020-04-08 14:55:00 Rey Morales MD on HEPATIC FUNCTION PANEL 2020-04-08 12:59:00 Darin Stearns MD TYPE AND SCREEN 2020-04-08 12:59:00 Darin Stearns MD COMPLETE BLOOD COUNT W/ 2020-04-08 12:59:00 Darin Stearns MD [email or web address] DIFFERENTIAL GLUCOSE, RANDOM 2020-04-08 12:59:00 Darin Stearns MD CALCIUM LEVEL TOTAL 2020-04-08 12:59:00 Darin Stearns MD [facility] BLOOD UREA NITROGEN 2020-04-08 12:59:00 Darin Stearns MD [facility] SERUM CREATININE 2020-04-08 12:59:00 Darin Stearns MD SODIUM LEVEL 2020-04-08 12:59:00 Darin Stearns MD POTASSIUM LEVEL 2020-04-08 12:59:00 Darin Stearns MD MAGNESIUM LEVEL 2020-04-08 12:59:00 Darin Stearns MD CHLORIDE LEVEL 2020-04-08 12:59:00 Darin Stearns MD CARBON DIOXIDE LEVEL 2020-04-08 12:59:00 Darin Stearns MD rsronald PHOSPHORUS LEVEL 2020-04-08 12:59:00 Darin Stearns MD URIC ACID 2020-04-08 12:59:00 Darin Stearns MD LACTATE DEHYDROGENASE 2020-04-08 12:59:00 Darin Stearns PROTHROMBIN TIME 2020-04-08 12:59:00 Darin Stearns MD PARTIAL THROMBOPLASTIN TIME 2020-04-08 12:59:00 Darin Stearns MD FIBRINOGEN ACTIVITY 2020-04-08 12:59:00 Darin Stearns MD [facility] ABORH 2020-04-08 12:59:00 Darin Stearns MD ANTIBODY SCREEN 2020-04-08 12:59:00 Darin Stearns MD ALBUMIN LEVEL 2020-04-08 12:59:00 Darin Stearns MD ALKALINE PHOSPHATASE 2020-04-08 12:59:00 Darin Stearns MD rsronald ALANINE AMINOTRANSFERASE 2020-04-08 12:59:00 Darin Stearns MD ASPARTATE AMINOTRANSFERASE 2020-04-08 12:59:00 Darin Stearns TOTAL PROTEIN 2020-04-08 12:59:00 Darin Stearns MD FRACTIONATED BILIRUBIN 2020-04-08 12:59:00 Darin Stearns MD SERUM CREATININE 2020-04-08 12:59:00 Darin Stearns MD .GLOMERULAR FILTRATION RATE 2020-04-08 12:59:00 Darin Stearns MD Results CBC 2020-04-08 12:59:00 Darin Stearns MD MANUAL DIFFERENTIAL 2020-04-08 12:59:00 Darin Stearns MD ANION GAP 2020-04-08 12:59:00 Darin Stearns MD CLOT EXPIRATION DATE 2020-04-08 12:59:00 Darin Stearns MD rson TMP INTERPRETATION ANTIBODY 2020-04-08 12:59:00 Darin Stearns MD SCREEN NEGATIVE BLOODCULTURE 2020-04-08 12:59:00 Darin Stearns MD POC GLUCOSE SCREEN 2020-04-08 03:30:00 Rey Morales MD on POC GLUCOSE SCREEN 2020-04-07 23:35:00 Rey Morales MD on POC GLUCOSE SCREEN 2020-04-07 18:34:00 Rey Morales MD on POC GLUCOSE SCREEN 2020-04-07 13:36:00 Rey Morales MD on HEPATIC FUNCTION PANEL 2020-04-07 12:24:00 Darin Stearns MD COMPLETE BLOOD COUNT W/ 2020-04-07 12:24:00 Darin Stearns MD nderson DIFFERENTIAL GLUCOSE, RANDOM 2020-04-07 12:24:00 Darin Stearns MD CALCIUM LEVEL TOTAL 2020-04-07 12:24:00 Darin Stearns MD BLOOD UREA NITROGEN 2020-04-07 12:24:00 Darin Stearns MD SERUM CREATININE 2020-04-07 12:24:00 Darin Stearns MD SODIUM LEVEL 2020-04-07 12:24:00 Darin Stearns MD POTASSIUM LEVEL 2020-04-07 12:24:00 Darin Stearns MD MAGNESIUM LEVEL 2020-04-07 12:24:00 Darin Stearns MD CHLORIDE LEVEL 2020-04-07 12:24:00 Darin Stearns MD CARBON DIOXIDE LEVEL 2020-04-07 12:24:00 Darin Stearns MD rson PHOSPHORUS LEVEL 2020-04-07 12:24:00 Darin Stearns MD URIC ACID 2020-04-07 12:24:00 Darin Stearns MD LACTATE DEHYDROGENASE 2020-04-07 12:24:00 Darin Stearns erson ALBUMIN LEVEL 2020-04-07 12:24:00 Darin Stearns MD ALKALINE PHOSPHATASE 2020-04-07 12:24:00 Darin Stearns MD ALANINE AMINOTRANSFERASE 2020-04-07 12:24:00 Darin Stearns MD ASPARTATE AMINOTRANSFERASE 2020-04-07 12:24:00 Darin Stearns TOTAL PROTEIN 2020-04-07 12:24:00 Darin Stearns MD FRACTIONATED BILIRUBIN 2020-04-07 12:24:00 Darin Stearns MD SERUM CREATININE 2020-04-07 12:24:00 Darin Stearns MD .GLOMERULAR FILTRATION RATE 2020-04-07 12:24:00 Darin Stearns MD Results CBC 2020-04-07 12:24:00 Darin Stearns MD MANUAL DIFFERENTIAL 2020-04-07 12:24:00 Darin Stearns MD son ANION GAP 2020-04-07 12:24:00 Darin Stearns MD BLOODCULTURE 2020-04-07 12:24:00 Darin Stearns MD POC GLUCOSE SCREEN 2020-04-07 04:47:00 Rey Morales MD on POC GLUCOSE SCREEN 2020-04-07 00:06:00 Rey Morales MD on POC GLUCOSE SCREEN 2020-04-06 18:35:00 Rey Morales MD on POC GLUCOSE SCREEN 2020-04-06 14:28:00 Rey Morales MD on HEPATIC FUNCTION PANEL 2020-04-06 12:47:00 Darin Stearns MD COMPLETE BLOOD COUNT W/ 2020-04-06 12:47:00 Darin Stearns MDrsronald DIFFERENTIAL GLUCOSE, RANDOM 2020-04-06 12:47:00 Darin Stearns MD CALCIUM LEVEL TOTAL 2020-04-06 12:47:00 Darin Stearns MD son BLOOD UREA NITROGEN 2020-04-06 12:47:00 Darin Stearns MD Bill son SERUM CREATININE 2020-04-06 12:47:00 Darin Stearns MD SODIUM LEVEL 2020-04-06 12:47:00 Darin Stearns MD POTASSIUM LEVEL 2020-04-06 12:47:00 Darin Stearns MD MAGNESIUM LEVEL 2020-04-06 12:47:00 Darin Stearns MD CHLORIDE LEVEL 2020-04-06 12:47:00 Darin Stearns MD CARBON DIOXIDE LEVEL 2020-04-06 12:47:00 Darin Stearns MDon PHOSPHORUS LEVEL 2020-04-06 12:47:00 Darin Stearns MD URIC ACID 2020-04-06 12:47:00 Darin Stearns MD LACTATE DEHYDROGENASE 2020-04-06 12:47:00 [facility] 2020-04-06 12:47:00 Darin Stearns MD ALKALINE PHOSPHATASE 2020-04-06 12:47:00 Darin Stearns MD ALANINE AMINOTRANSFERASE 2020-04-06 12:47:00 Darin Stearns MD ASPARTATE AMINOTRANSFERASE 2020-04-06 12:47:00 Darin Stearns TOTAL PROTEIN 2020-04-06 12:47:00 Darin Stearns MD FRACTIONATED BILIRUBIN 2020-04-06 12:47:00 Darin Stearns MD SERUM CREATININE 2020-04-06 12:47:00 Darin Stearns MD .GLOMERULAR FILTRATION RATE 2020-04-06 12:47:00 Darin Stearns MD Results CBC 2020-04-06 12:47:00 Darin Stearns MD MANUAL DIFFERENTIAL 2020-04-06 12:47:00 Darin Stearns MD Bill [facility] ANION GAP 2020-04-06 12:47:00 Darin Stearns MD BLOODCULTURE 2020-04-06 12:47:00 Darin Stearns MD POC GLUCOSE SCREEN 2020-04-06 03:26:00 Darin Stearns MD on VRE CULTURE 2020-04-06 02:09:00 Darin Stearns MD POC GLUCOSE SCREEN 2020-04-06 00:03:00 Darin Stearns MD on POC GLUCOSE SCREEN 2020-04-05 18:12:00 Darin Stearns MD on POC GLUCOSE SCREEN 2020-04-05 15:24:00 Darin Stearns MD on HEPATIC FUNCTION PANEL 2020-04-05 12:52:00 Darin Stearns MD derson TYPE AND SCREEN 2020-04-05 12:52:00 Darin Stearns MD COMPLETE BLOOD COUNT W/ 2020-04-05 12:52:00 Darin Stearns MD ndersronald DIFFERENTIAL GLUCOSE, RANDOM 2020-04-05 12:52:00 Darin Stearns MD CALCIUM LEVEL TOTAL 2020-04-05 12:52:00 Darin Stearnser son BLOOD UREA NITROGEN 2020-04-05 12:52:00 Darin Stearns MD son SERUM CREATININE 2020-04-05 12:52:00 Darin Stearns MD SODIUM LEVEL 2020-04-05 12:52:00 Darin Stearns MD POTASSIUM LEVEL 2020-04-05 12:52:00 Darin Stearns MD MAGNESIUM LEVEL 2020-04-05 12:52:00 Darin Stearns MD CHLORIDE LEVEL 2020-04-05 12:52:00 Darin Stearns MD CARBON DIOXIDE LEVEL 2020-04-05 12:52:00 Darin Stearns MD rsronald PHOSPHORUS LEVEL 2020-04-05 12:52:00 Darin Stearns MD URIC ACID 2020-04-05 12:52:00 Darin Stearns MD LACTATE DEHYDROGENASE 2020-04-05 12:52:00 Darin Stearnson PROTHROMBIN TIME 2020-04-05 12:52:00 Darin Stearns MD PARTIAL THROMBOPLASTIN TIME 2020-04-05 12:52:00 Darin Stearns MD FIBRINOGEN ACTIVITY 2020-04-05 12:52:00 Darin Stearns MD Bill son ABORH 2020-04-05 12:52:00 Darin Stearns MD ANTIBODY SCREEN 2020-04-05 12:52:00 Darin Stearns MD ALBUMIN LEVEL 2020-04-05 12:52:00 Darin Stearsn MD ALKALINE PHOSPHATASE 2020-04-05 12:52:00 Darin Stearns MD ALANINE AMINOTRANSFERASE 2020-04-05 12:52:00 Darin Stearns MD ASPARTATE AMINOTRANSFERASE 2020-04-05 12:52:00 Darin Stearns TOTAL PROTEIN 2020-04-05 12:52:00 Darin Stearns MD FRACTIONATED BILIRUBIN 2020-04-05 12:52:00 Darin Stearns MD SERUM CREATININE 2020-04-05 12:52:00 Darin Stearns MD .GLOMERULAR FILTRATION RATE 2020-04-05 12:52:00 Darin Stearns MD Results CBC 2020-04-05 12:52:00 Darin Stearns MD MANUAL DIFFERENTIAL 2020-04-05 12:52:00 Darin Stearns MD ANION GAP 2020-04-05 12:52:00 Darin Stearns MD CLOT EXPIRATION DATE 2020-04-05 12:52:00 Darin Stearns MD TMP INTERPRETATION ANTIBODY 2020-04-05 12:52:00 Darin Stearns MD SCREEN NEGATIVE BLOODCULTURE 2020-04-05 12:52:00 Darin Stearns MD POC GLUCOSE SCREEN 2020-04-05 04:02:00 Darin Stearns MD on POC GLUCOSE SCREEN 2020-04-04 23:50:00 Darin Stearns MD on POC GLUCOSE SCREEN 2020-04-04 18:32:00 Darin Stearns MD on POC GLUCOSE SCREEN 2020-04-04 15:08:00 Darin Stearns MD on HEPATIC FUNCTION PANEL 2020-04-04 13:04:00 Darin Stearns MD COMPLETE BLOOD COUNT W/ 2020-04-04 13:04:00 Darin Stearns MD nderson DIFFERENTIAL GLUCOSE, RANDOM 2020-04-04 13:04:00 Darin Stearns MD CALCIUM LEVEL TOTAL 2020-04-04 13:04:00 Darin Stearns MD BLOOD UREA NITROGEN 2020-04-04 13:04:00 Darin Stearns MD Bill son SERUM CREATININE 2020-04-04 13:04:00 Darin Stearns MD SODIUM LEVEL 2020-04-04 13:04:00 Darin Stearns MD POTASSIUM LEVEL 2020-04-04 13:04:00 Darin Stearns MD MAGNESIUM LEVEL 2020-04-04 13:04:00 Darin Stearns MD CHLORIDE LEVEL 2020-04-04 13:04:00 Darin Stearns MD CARBON DIOXIDE LEVEL 2020-04-04 13:04:00 Darin Stearns MD PHOSPHORUS LEVEL 2020-04-04 13:04:00 Darin Stearns MD URIC ACID 2020-04-04 13:04:00 Darin Stearns MD LACTATE DEHYDROGENASE 2020-04-04 13:04:00 Darin Stearnson PREALBUMIN 2020-04-04 13:04:00 Darin Stearns MD C REACTIVE PROTEIN 2020-04-04 13:04:00 Darin Stearns MD on ALBUMIN LEVEL 2020-04-04 13:04:00 Darin Stearns MD ALKALINE PHOSPHATASE 2020-04-04 13:04:00 Darin Stearns MD rsronald ALANINE AMINOTRANSFERASE 2020-04-04 13:04:00 Darin Stearns MD ASPARTATE AMINOTRANSFERASE 2020-04-04 13:04:00 Darin Stearns TOTAL PROTEIN 2020-04-04 13:04:00 Darin Stearns MD FRACTIONATED BILIRUBIN 2020-04-04 13:04:00 Darin Stearns MD SERUM CREATININE 2020-04-04 13:04:00 Darin Stearns MD .GLOMERULAR FILTRATION RATE 2020-04-04 13:04:00 Darin Stearns MD Results CBC 2020-04-04 13:04:00 Darin Stearns MD MANUAL DIFFERENTIAL 2020-04-04 13:04:00 Darin Stearns MD ANION GAP 2020-04-04 13:04:00 Darin Stearns MD BLOODCULTURE 2020-04-04 13:04:00 Darin Stearns MD POC GLUCOSE SCREEN 2020-04-04 04:20:00 Darin Stearns MD on POC GLUCOSE SCREEN 2020-04-03 23:41:00 Darin Stearns MD on POC GLUCOSE SCREEN 2020-04-03 18:09:00 Darin Stearns MD on POC GLUCOSE SCREEN 2020-04-03 14:42:00 Darin Stearns MD on HEPATIC FUNCTION PANEL 2020-04-03 11:16:00 Darin Stearns MDson COMPLETE BLOOD COUNT W/ 2020-04-03 11:16:00 Darin Stearns MD DIFFERENTIAL GLUCOSE, RANDOM 2020-04-03 11:16:00 Darin Stearns MD CALCIUM LEVEL TOTAL 2020-04-03 11:16:00 Darin Stearsn MD son BLOOD UREA NITROGEN 2020-04-03 11:16:00 Darin Stearns MD son SERUM CREATININE 2020-04-03 11:16:00 Darin Stearns MD SODIUM LEVEL 2020-04-03 11:16:00 Darin Stearns MD POTASSIUM LEVEL 2020-04-03 11:16:00 Darin Stearns MD MAGNESIUM LEVEL 2020-04-03 11:16:00 Darin Stearns MD CHLORIDE LEVEL 2020-04-03 11:16:00 Darin Stearns MD CARBON DIOXIDE LEVEL 2020-04-03 11:16:00 Darin Stearns MD Young rson PHOSPHORUS LEVEL 2020-04-03 11:16:00 Darin Stearns MD URIC ACID 2020-04-03 11:16:00 Darin Stearns MD LACTATE DEHYDROGENASE 2020-04-03 11:16:00 Darin Stearns MD And erson ALBUMIN LEVEL 2020-04-03 11:16:00 Kings Flores MD Bill son G ALKALINE PHOSPHATASE 2020-04-03 11:16:00 Kings Flores MD G ALANINE AMINOTRANSFERASE 2020-04-03 11:16:00 Kings Flores MD G ASPARTATE AMINOTRANSFERASE 2020-04-03 11:16:00 Mukund Flores MD G TOTAL PROTEIN 2020-04-03 11:16:00 Kings Flores MD G FRACTIONATED BILIRUBIN 2020-04-03 11:16:00 Kings Flores G SERUM CREATININE 2020-04-03 11:16:00 Kings Flores MD Young rson G .GLOMERULAR FILTRATION RATE 2020-04-03 11:16:00 Maik Flores MD G Results CBC 2020-04-03 11:16:00 Kings Flores MD G MANUAL DIFFERENTIAL 2020-04-03 11:16:00 Kings Flores MD G ANION GAP 2020-04-03 11:16:00 Kings Flores MD Billshari erazo G BLOODCULTURE 2020-04-03 11:16:00 Darin Stearns MD POC GLUCOSE SCREEN 2020-04-03 05:45:00 Darin Stearns MD on POC GLUCOSE SCREEN 2020-04-03 01:05:00 Darin Stearns MD on POC GLUCOSE SCREEN 2020-04-02 18:40:00 Bebe Guo MD on RETICULOCYTE COUNT 2020-04-02 17:39:00 Sawyer Gill MD rsronald AUTOMATED POC GLUCOSE SCREEN 2020-04-02 14:10:00 Bebe Guo MD on HEPATIC FUNCTION PANEL 2020-04-02 09:56:00 Darin Stearns MD derson TYPE AND SCREEN 2020-04-02 09:56:00 Darin Stearns MD COMPLETE BLOOD COUNT W/ 2020-04-02 09:56:00 Darin Stearns MD DIFFERENTIAL GLUCOSE, RANDOM 2020-04-02 09:56:00 Darin Stearns MD CALCIUM LEVEL TOTAL 2020-04-02 09:56:00 Darin Stearns MD BLOOD UREA NITROGEN 2020-04-02 09:56:00 Darin Stearns MD [facility] SERUM CREATININE 2020-04-02 09:56:00 Darin Stearns MD SODIUM LEVEL 2020-04-02 09:56:00 Darin Stearns MD POTASSIUM LEVEL 2020-04-02 09:56:00 Darin Stearns MD MAGNESIUM LEVEL 2020-04-02 09:56:00 Darin Stearns MD CHLORIDE LEVEL 2020-04-02 09:56:00 Darin Stearns MD CARBON DIOXIDE LEVEL 2020-04-02 09:56:00 Darin Stearns MD rson PHOSPHORUS LEVEL 2020-04-02 09:56:00 Darin Stearns MD URIC ACID 2020-04-02 09:56:00 Darin Stearns MD LACTATE DEHYDROGENASE 2020-04-02 09:56:00 Darin Stearns ersronald PROTHROMBIN TIME 2020-04-02 09:56:00 Darin Stearns MD PARTIAL THROMBOPLASTIN TIME 2020-04-02 09:56:00 Darin Stearns MD FIBRINOGEN ACTIVITY 2020-04-02 09:56:00 Darin Stearns MD Bill son ABORH 2020-04-02 09:56:00 Starla Valenzuela MD ALBUMIN LEVEL 2020-04-02 09:56:00 Starla Valenzuela MD ALKALINE PHOSPHATASE 2020-04-02 09:56:00 Starla Valenzuela MD rsronald ALANINE AMINOTRANSFERASE 2020-04-02 09:56:00 Starla Valenzuela MD ASPARTATE AMINOTRANSFERASE 2020-04-02 09:56:00 Starla Valenzuela TOTAL PROTEIN 2020-04-02 09:56:00 Starla Valenzuela MD FRACTIONATED BILIRUBIN 2020-04-02 09:56:00 Starla Valenzuela MD SERUM CREATININE 2020-04-02 09:56:00 Starla Valenzulea MD .GLOMERULAR FILTRATION RATE 2020-04-02 09:56:00 Starla Valenzuela MD Results CBC 2020-04-02 09:56:00 Starla Valenzuela MD MANUAL DIFFERENTIAL 2020-04-02 09:56:00 Starla Valenzuela MD ANION GAP 2020-04-02 09:56:00 Starla Valenzuela MD ANTIBODY SCREEN MANUAL 2020-04-02 09:56:00 Starla Valenzuela MDson CLOT EXPIRATION DATE 2020-04-02 09:56:00 Starla Valenzuela MD Young rson BLOODCULTURE 2020-04-02 09:56:00 Darin Stearns MD POC GLUCOSE SCREEN 2020-04-02 05:28:00 Reggie Altamirano MD Isra on POC GLUCOSE SCREEN 2020-04-02 01:12:00 Reggie Altamirano MD on POC GLUCOSE SCREEN 2020-04-01 21:11:00 Bebe Guo MD Isra on COVID-19 (SARS-COV-2) 2020-04-01 18:50:00 Darin Stearns MD And ersronald PCR-ASYMPTOMATIC POC GLUCOSE SCREEN 2020-04-01 14:50:00 Darin Stearns MD on HEPATIC FUNCTION PANEL 2020-04-01 13:43:00 Darin Stearns MD COMPLETE BLOOD COUNT W/ 2020-04-01 13:43:00 Darin Stearns MDrsronald DIFFERENTIAL GLUCOSE, RANDOM 2020-04-01 13:43:00 Darin Stearns MD CALCIUM LEVEL TOTAL 2020-04-01 13:43:00 Darin Stearns MD Bill son BLOOD UREA NITROGEN 2020-04-01 13:43:00 Darin Stearns MD Bill son SERUM CREATININE 2020-04-01 13:43:00 Darin Stearns MD SODIUM LEVEL 2020-04-01 13:43:00 Darin Stearns MD POTASSIUM LEVEL 2020-04-01 13:43:00 Darin Stearns MD MAGNESIUM LEVEL 2020-04-01 13:43:00 Darin Stearns MD CHLORIDE LEVEL 2020-04-01 13:43:00 Darin Stearns MD CARBON DIOXIDE LEVEL 2020-04-01 13:43:00 Darin Stearns MD PHOSPHORUS LEVEL 2020-04-01 13:43:00 Darin Stearns MD URIC ACID 2020-04-01 13:43:00 Darin Stearns MD LACTATE DEHYDROGENASE 2020-04-01 13:43:00 Darin Stearns MD And ersronald ALBUMIN LEVEL 2020-04-01 13:43:00 Starla Valenzuela MD ALKALINE PHOSPHATASE 2020-04-01 13:43:00 Starla Valenzuela MD rsronald ALANINE AMINOTRANSFERASE 2020-04-01 13:43:00 Starla Valenzuela MD ASPARTATE AMINOTRANSFERASE 2020-04-01 13:43:00 Starla Valenzuela TOTAL PROTEIN 2020-04-01 13:43:00 Starla Valenzuela MD FRACTIONATED BILIRUBIN 2020-04-01 13:43:00 Starla Valenzuela MD SERUM CREATININE 2020-04-01 13:43:00 Starla Valenzuela MD .GLOMERULAR FILTRATION RATE 2020-04-01 13:43:00 Starla Valenzuela MD Results CBC 2020-04-01 13:43:00 Starla Valenzuela MD MANUAL DIFFERENTIAL 2020-04-01 13:43:00 Starla Valenzuela MD Bill son ANION GAP 2020-04-01 13:43:00 Starla Valenzuela MD POC GLUCOSE SCREEN 2020-04-01 04:47:00 Darin Stearns MD on TRANSFUSE RED BLOOD CELLS 2020-04-01 02:18:05 Starla Valenzuela MD POC GLUCOSE SCREEN 2020-04-01 00:09:00 Darin Stearns MD on POC GLUCOSE SCREEN 2020-03-31 18:10:00 Darin Stearns MD on PREPARE RBC 2020-03-31 15:38:00 Starla Valenzuela MD POC GLUCOSE SCREEN 2020-03-31 14:01:00 Darin Stearns MD on HEPATIC FUNCTION PANEL 2020-03-31 11:50:00 Darin Stearns MD COMPLETE BLOOD COUNT W/ 2020-03-31 11:50:00 Darin Stearns MD nderson DIFFERENTIAL GLUCOSE, RANDOM 2020-03-31 11:50:00 Darin Stearns MD CALCIUM LEVEL TOTAL 2020-03-31 11:50:00 Darin Stearns MD BLOOD UREA NITROGEN 2020-03-31 11:50:00 Darin Stearns MD Bill son SERUM CREATININE 2020-03-31 11:50:00 Darin Stearns MD SODIUM LEVEL 2020-03-31 11:50:00 Darin Stearns MD POTASSIUM LEVEL 2020-03-31 11:50:00 Darin Stearns MD MAGNESIUM LEVEL 2020-03-31 11:50:00 Darin Stearns MD CHLORIDE LEVEL 2020-03-31 11:50:00 Darin Stearns MD CARBON DIOXIDE LEVEL 2020-03-31 11:50:00 Darin Stearns MD Young rson PHOSPHORUS LEVEL 2020-03-31 11:50:00 Darin Stearns MD URIC ACID 2020-03-31 11:50:00 Darin Stearns MD LACTATE DEHYDROGENASE 2020-03-31 11:50:00 Darin Stearns MD And erson ALBUMIN LEVEL 2020-03-31 11:50:00 Starla Valenzuela MD ALKALINE PHOSPHATASE 2020-03-31 11:50:00 Starla Valenzuela MD Young rsronald ALANINE AMINOTRANSFERASE 2020-03-31 11:50:00 Starla Valenzuela MD ASPARTATE AMINOTRANSFERASE 2020-03-31 11:50:00 Starla Valenzuela TOTAL PROTEIN 2020-03-31 11:50:00 Starla Valenzuela MD FRACTIONATED BILIRUBIN 2020-03-31 11:50:00 Starla Valenzuela MD derson SERUM CREATININE 2020-03-31 11:50:00 Starla Valenzuela MD .GLOMERULAR FILTRATION RATE 2020-03-31 11:50:00 Starla Valenzuela MD Results CBC 2020-03-31 11:50:00 Starla Valenzuela MD MANUAL DIFFERENTIAL 2020-03-31 11:50:00 Starla Valenzuelaer son ANION GAP 2020-03-31 11:50:00 Starla Valenzuela MD POC GLUCOSE SCREEN 2020-03-31 03:36:00 Darin Stearns MD on POC GLUCOSE SCREEN 2020-03-31 00:01:00 Darin Stearns MD on POC GLUCOSE SCREEN 2020-03-30 19:05:00 Darin Stearns MD on POC GLUCOSE SCREEN 2020-03-30 17:36:00 Darin Stearns MD on POC GLUCOSE SCREEN 2020-03-30 13:42:00 Darin Stearns MD on HEPATIC FUNCTION PANEL 2020-03-30 12:53:00 Darin Stearns MD derson TYPE AND SCREEN 2020-03-30 12:53:00 Darin Stearns MD COMPLETE BLOOD COUNT W/ 2020-03-30 12:53:00 Darin Stearns MD ndersronald DIFFERENTIAL GLUCOSE, RANDOM 2020-03-30 12:53:00 Darin Stearns MD CALCIUM LEVEL TOTAL 2020-03-30 12:53:00 [facility] 2020-03-30 12:53:00 [facility] 2020-03-30 12:53:00 Darin Stearns MD SODIUM LEVEL 2020-03-30 12:53:00 Darin Stearns MD POTASSIUM LEVEL 2020-03-30 12:53:00 Darin Stearns MD MAGNESIUM LEVEL 2020-03-30 12:53:00 Darin Stearns MD CHLORIDE LEVEL 2020-03-30 12:53:00 Darin Stearns MD CARBON DIOXIDE LEVEL 2020-03-30 12:53:00 Darin Stearns MD PHOSPHORUS LEVEL 2020-03-30 12:53:00 Darin Stearns MD URIC ACID 2020-03-30 12:53:00 Darin Stearns MD LACTATE DEHYDROGENASE 2020-03-30 12:53:00 Darin Stearns PROTHROMBIN TIME 2020-03-30 12:53:00 Darin Stearns MD PARTIAL THROMBOPLASTIN TIME 2020-03-30 12:53:00 Darin Stearns MD FIBRINOGEN ACTIVITY 2020-03-30 12:53:00 Drain Stearns MD Bill son ABORH 2020-03-30 12:53:00 Starla Valenzuela MD ALBUMIN LEVEL 2020-03-30 12:53:00 Starla Valenzuela MD ALKALINE PHOSPHATASE 2020-03-30 12:53:00 Starla Valenzuela MD ALANINE AMINOTRANSFERASE 2020-03-30 12:53:00 Starla Valenzuela MD ASPARTATE AMINOTRANSFERASE 2020-03-30 12:53:00 Starla Valenzuela TOTAL PROTEIN 2020-03-30 12:53:00 Starla Valenzuela MD FRACTIONATED BILIRUBIN 2020-03-30 12:53:00 Starla Valenzuela MD SERUM CREATININE 2020-03-30 12:53:00 Starla Valenzuela MD .GLOMERULAR FILTRATION RATE 2020-03-30 12:53:00 Starla Valenzuela MD Results CBC 2020-03-30 12:53:00 Starla Valenzuela MD MANUAL DIFFERENTIAL 2020-03-30 12:53:00 Starla Valenzuela MD Bill son ANION GAP 2020-03-30 12:53:00 Starla Valenzuela MD ANTIBODY SCREEN MANUAL 2020-03-30 12:53:00 Starla Valenzuela MD CLOT EXPIRATION DATE 2020-03-30 12:53:00 Starla Valenzuela MD rson TMP INTERPRETATION ANTIBODY 2020-03-30 12:53:00 Starla Valenzuela MD IDENTIFICATION DIRECT ANTIGLOBULIN TEST 2020-03-30 12:53:00 Starla Valenzuela MD TMP CROSSMATCH 2020-03-30 12:53:00 Starla Valenzuela MD INTERPRETATION VRE CULTURE 2020-03-30 12:40:00 Darin Stearns MD POC GLUCOSE SCREEN 2020-03-30 02:52:00 Darin Stearns MD on POC GLUCOSE SCREEN 2020-03-29 23:48:00 Darin Stearns MD on POC GLUCOSE SCREEN 2020-03-29 19:46:00 Darin Stearns MD on POC GLUCOSE SCREEN 2020-03-29 13:42:00 Darin Stearns MD on HEPATIC FUNCTION PANEL 2020-03-29 11:53:00 Darin Stearns MD COMPLETE BLOOD COUNT W/ 2020-03-29 11:53:00 Darin Stearns MD nderson DIFFERENTIAL GLUCOSE, RANDOM 2020-03-29 11:53:00 Darin Stearns MD CALCIUM LEVEL TOTAL 2020-03-29 11:53:00 Darin Stearns MD son BLOOD UREA NITROGEN 2020-03-29 11:53:00 Darin Stearns MD son SERUM CREATININE 2020-03-29 11:53:00 Darin Stearns MD SODIUM LEVEL 2020-03-29 11:53:00 Darin Stearns MD POTASSIUM LEVEL 2020-03-29 11:53:00 Darin Stearns MD MAGNESIUM LEVEL 2020-03-29 11:53:00 Darin Stearns MD CHLORIDE LEVEL 2020-03-29 11:53:00 Darin Stearns MD CARBON DIOXIDE LEVEL 2020-03-29 11:53:00 Darin Stearns MD Young rson PHOSPHORUS LEVEL 2020-03-29 11:53:00 Darin Stearns MD URIC ACID 2020-03-29 11:53:00 Darin Stearns MD LACTATE DEHYDROGENASE 2020-03-29 11:53:00 Darin Stearns MD And erson ALBUMIN LEVEL 2020-03-29 11:53:00 Starla Valenzuela MD ALKALINE PHOSPHATASE 2020-03-29 11:53:00 Starla Valenzuela MD Young rsronald ALANINE AMINOTRANSFERASE 2020-03-29 11:53:00 Starla Valenzuela MD ASPARTATE AMINOTRANSFERASE 2020-03-29 11:53:00 Starla Valenzuela TOTAL PROTEIN 2020-03-29 11:53:00 Starla Valenzuela MD FRACTIONATED BILIRUBIN 2020-03-29 11:53:00 Starla Valenzuela MD SERUM CREATININE 2020-03-29 11:53:00 Starla Valenzuela MD .GLOMERULAR FILTRATION RATE 2020-03-29 11:53:00 Starla Valenzuela MD Results CBC 2020-03-29 11:53:00 Starla Valenzuela MD MANUAL DIFFERENTIAL 2020-03-29 11:53:00 Starla Valenzuelaer son ANION GAP 2020-03-29 11:53:00 Starla Valenzuela MD POC GLUCOSE SCREEN 2020-03-29 04:05:00 Darin Stearns MD on POC GLUCOSE SCREEN 2020-03-29 00:11:00 Darin Stearns MD on POC GLUCOSE SCREEN 2020-03-28 17:45:00 Darin Stearns MD on POC GLUCOSE SCREEN 2020-03-28 13:27:00 Darin Stearns MD on HEPATIC FUNCTION PANEL 2020-03-28 13:26:00 Darin Stearns MD COMPLETE BLOOD COUNT W/ 2020-03-28 13:26:00 Darin Stearns MDrsronald DIFFERENTIAL GLUCOSE, RANDOM 2020-03-28 13:26:00 Darin Stearns MD CALCIUM LEVEL TOTAL 2020-03-28 13:26:00 Darin Stearns MD son BLOOD UREA NITROGEN 2020-03-28 13:26:00 Darin Stearns MD son SERUM CREATININE 2020-03-28 13:26:00 Darin Stearns MD SODIUM LEVEL 2020-03-28 13:26:00 Darin Stearns MD POTASSIUM LEVEL 2020-03-28 13:26:00 Darin Stearns MD MAGNESIUM LEVEL 2020-03-28 13:26:00 Darin Stearns MD CHLORIDE LEVEL 2020-03-28 13:26:00 Darin Stearns MD CARBON DIOXIDE LEVEL 2020-03-28 13:26:00 Darin Stearns MD PHOSPHORUS LEVEL 2020-03-28 13:26:00 Darin Stearns MD URIC ACID 2020-03-28 13:26:00 Darin Stearns MD LACTATE DEHYDROGENASE 2020-03-28 13:26:00 Darin Stearns PREALBUMIN 2020-03-28 13:26:00 Darin Stearns MD C REACTIVE PROTEIN 2020-03-28 13:26:00 Darin Stearns MD on ALBUMIN LEVEL 2020-03-28 13:26:00 MD Brain Tang ALKALINE PHOSPHATASE 2020-03-28 13:26:00 MD Young Tang ALANINE AMINOTRANSFERASE 2020-03-28 13:26:00 MD Brain Tang ASPARTATE AMINOTRANSFERASE 2020-03-28 13:26:00 Diana Tang TOTAL PROTEIN 2020-03-28 13:26:00 MD Brain Tang FRACTIONATED BILIRUBIN 2020-03-28 13:26:00 MD Shelby Tang SERUM CREATININE 2020-03-28 13:26:00 Laura Freeman MD n .GLOMERULAR FILTRATION RATE 2020-03-28 13:26:00 Laura Freeman MD Results CBC 2020-03-28 13:26:00 Laura Freeman MD MANUAL DIFFERENTIAL 2020-03-28 13:26:00 Laura Freeman MD Young rson ANION GAP 2020-03-28 13:26:00 Laura Freeman MD POC GLUCOSE SCREEN 2020-03-28 04:40:00 Darin Stearns MD on POC GLUCOSE SCREEN 2020-03-27 23:27:00 Darin Stearns MD on POC GLUCOSE SCREEN 2020-03-27 19:10:00 Bebe Guo MD on POC GLUCOSE SCREEN 2020-03-27 14:16:00 Bebe Guo MD on HEPATIC FUNCTION PANEL 2020-03-27 10:37:00 Darin Stearns MD derson TYPE AND SCREEN 2020-03-27 10:37:00 Darin Stearns MD COMPLETE BLOOD COUNT W/ 2020-03-27 10:37:00 Darin Stearns MD nderson DIFFERENTIAL GLUCOSE, RANDOM 2020-03-27 10:37:00 Darin Stearns MD CALCIUM LEVEL TOTAL 2020-03-27 10:37:00 Darin Stearns MD son BLOOD UREA NITROGEN 2020-03-27 10:37:00 Darin Stearns MD Bill son SERUM CREATININE 2020-03-27 10:37:00 Darin Stearns MD SODIUM LEVEL 2020-03-27 10:37:00 Darin Stearns MD POTASSIUM LEVEL 2020-03-27 10:37:00 Darin Stearns MD MAGNESIUM LEVEL 2020-03-27 10:37:00 Darin Stearns MD CHLORIDE LEVEL 2020-03-27 10:37:00 Darin Stearns MD CARBON DIOXIDE LEVEL 2020-03-27 10:37:00 Darin Stearns MD rson PHOSPHORUS LEVEL 2020-03-27 10:37:00 Darin Stearns MD URIC ACID 2020-03-27 10:37:00 Darin Stearns MD LACTATE DEHYDROGENASE 2020-03-27 10:37:00 Darin Stearns erson PROTHROMBIN TIME 2020-03-27 10:37:00 Darin Stearns MD PARTIAL THROMBOPLASTIN TIME 2020-03-27 10:37:00 Darin Stearns MD FIBRINOGEN ACTIVITY 2020-03-27 10:37:00 Darin Stearns MD Bill son ABORH 2020-03-27 10:37:00 Cristian Gonzalez MD ANTIBODY SCREEN 2020-03-27 10:37:00 Cristian Gonzalez MD ALBUMIN LEVEL 2020-03-27 10:37:00 MD Brain Tang ALKALINE PHOSPHATASE 2020-03-27 10:37:00 MD Young Tang ALANINE AMINOTRANSFERASE 2020-03-27 10:37:00 MD Brain Tang ASPARTATE AMINOTRANSFERASE 2020-03-27 10:37:00 Diana Tang TOTAL PROTEIN 2020-03-27 10:37:00 MD Brain Tang FRACTIONATED BILIRUBIN 2020-03-27 10:37:00 MD Shelby Tang SERUM CREATININE 2020-03-27 10:37:00 Laura Freeman MDGLOMERULAR FILTRATION RATE 2020-03-27 10:37:00 Laura Freeman MD Results CBC 2020-03-27 10:37:00 Laura Freeman MD MANUAL DIFFERENTIAL 2020-03-27 10:37:00 Laura Freeman MD ANION GAP 2020-03-27 10:37:00 Laura Freeman MD TMP INTERP AUTO ANTIBODY 2020-03-27 10:37:00 Cristian Gonzalez MD SCREEN POSITIVE CLOT EXPIRATION DATE 2020-03-27 10:37:00 Cristian Gonzalez MD rsronald POC GLUCOSE SCREEN 2020-03-27 03:31:00 Bebe Guo MD on POC GLUCOSE SCREEN 2020-03-27 01:43:00 Bebe Guo MD on POC GLUCOSE SCREEN 2020-03-26 18:37:00 Bebe Guo MD on POC GLUCOSE SCREEN 2020-03-26 14:31:00 Bebe Guo MD on HEPATIC FUNCTION PANEL 2020-03-26 08:49:00 Darin Stearns MDson RETICULOCYTE COUNT 2020-03-26 08:49:00 Darnell Beard MD Youngdanny peters AUTOMATED COMPLETE BLOOD COUNT W/ 2020-03-26 08:49:00 Darin Stearns MD DIFFERENTIAL GLUCOSE, RANDOM 2020-03-26 08:49:00 Darin Stearns MD CALCIUM LEVEL TOTAL 2020-03-26 08:49:00 Darin Stearns MD son BLOOD UREA NITROGEN 2020-03-26 08:49:00 Darin Stearns MD son SERUM CREATININE 2020-03-26 08:49:00 Darin Stearns MD SODIUM LEVEL 2020-03-26 08:49:00 Darin Stearns MD POTASSIUM LEVEL 2020-03-26 08:49:00 Darin Stearns MD MAGNESIUM LEVEL 2020-03-26 08:49:00 Darin Stearns MD CHLORIDE LEVEL 2020-03-26 08:49:00 Darin Stearns MD CARBON DIOXIDE LEVEL 2020-03-26 08:49:00 Darin Stearns MD rsronald PHOSPHORUS LEVEL 2020-03-26 08:49:00 Darin Stearns MD URIC ACID 2020-03-26 08:49:00 Darin Stearns MD LACTATE DEHYDROGENASE 2020-03-26 08:49:00 Darin Stearns MD And erson ALBUMIN LEVEL 2020-03-26 08:49:00 MD Brain Tang ALKALINE PHOSPHATASE 2020-03-26 08:49:00 MD Young Tang ALANINE AMINOTRANSFERASE 2020-03-26 08:49:00 MD Brain Tang ASPARTATE AMINOTRANSFERASE 2020-03-26 08:49:00 Diana Tang TOTAL PROTEIN 2020-03-26 08:49:00 MD Brain Tang FRACTIONATED BILIRUBIN 2020-03-26 08:49:00 MD Shelby Tang SERUM CREATININE 2020-03-26 08:49:00 Laura Freeman MDGLOMERULAR FILTRATION RATE 2020-03-26 08:49:00 Laura Freeman MD Results CBC 2020-03-26 08:49:00 Laura Freeman MD MANUAL DIFFERENTIAL 2020-03-26 08:49:00 Laura Freeman MD Young rson ANION GAP 2020-03-26 08:49:00 Laura Freeman MD POC GLUCOSE SCREEN 2020-03-26 03:01:00 Bebe Guo MD on COVID-19 (SARS-COV-2) 2020-03-25 21:41:00 Hannah Patrikc MD And thomas PCR-ASYMPTOMATIC MC POC GLUCOSE SCREEN 2020-03-25 19:36:00 Bebe Guo MD on POC GLUCOSE SCREEN 2020-03-25 14:22:00 Bebe Guo MD on HEPATIC FUNCTION PANEL 2020-03-25 10:06:00 Darin Stearns MD COMPLETE BLOOD COUNT W/ 2020-03-25 10:06:00 Darin Stearns MD nderson DIFFERENTIAL GLUCOSE, RANDOM 2020-03-25 10:06:00 Darin Stearns MD CALCIUM LEVEL TOTAL 2020-03-25 10:06:00 Darin Stearns MD son BLOOD UREA NITROGEN 2020-03-25 10:06:00 aDrin Stearns MD son SERUM CREATININE 2020-03-25 10:06:00 Darin Stearns MD SODIUM LEVEL 2020-03-25 10:06:00 Darin Stearns MD POTASSIUM LEVEL 2020-03-25 10:06:00 Darin Stearns MD MAGNESIUM LEVEL 2020-03-25 10:06:00 Darin Stearns MD CHLORIDE LEVEL 2020-03-25 10:06:00 Darin Stearns MD CARBON DIOXIDE LEVEL 2020-03-25 10:06:00 Darin Stearns MD Young rson PHOSPHORUS LEVEL 2020-03-25 10:06:00 Darin Stearns MD URIC ACID 2020-03-25 10:06:00 Darin Stearns MD LACTATE DEHYDROGENASE 2020-03-25 10:06:00 Darin Stearns ALBUMIN LEVEL 2020-03-25 10:06:00 MD Brain Tang ALKALINE PHOSPHATASE 2020-03-25 10:06:00 MD Young Tang Mily ALANINE AMINOTRANSFERASE 2020-03-25 10:06:00 MD Brain Tang ASPARTATE AMINOTRANSFERASE 2020-03-25 10:06:00 Diana Tang TOTAL PROTEIN 2020-03-25 10:06:00 MD Brain Tang FRACTIONATED BILIRUBIN 2020-03-25 10:06:00 MD Shelby Tang SERUM CREATININE 2020-03-25 10:06:00 Laura Freeman MD .GLOMERULAR FILTRATION RATE 2020-03-25 10:06:00 Laura Freeman MD Results CBC 2020-03-25 10:06:00 Laura Freeman MD MANUAL DIFFERENTIAL 2020-03-25 10:06:00 Laura Freeman MD ANION GAP 2020-03-25 10:06:00 Laura Freeman MD POC GLUCOSE SCREEN 2020-03-25 03:42:00 Bebe Guo MD on POC GLUCOSE SCREEN 2020-03-24 23:42:00 Bebe Guo MD on POC GLUCOSE SCREEN 2020-03-24 18:35:00 Bebe Guo MD on XR CHEST 1 VW 2020-03-24 15:12:16 Darnell Beard MD POC GLUCOSE SCREEN 2020-03-24 14:35:00 Bebe Guo MD on PROTHROMBIN TIME 2020-03-24 09:03:00 Darin Stearns MD PARTIAL THROMBOPLASTIN TIME 2020-03-24 09:03:00 Darin Stearns MD FIBRINOGEN ACTIVITY 2020-03-24 09:03:00 Darin Stearns MD son HEPATIC FUNCTION PANEL 2020-03-24 09:02:00 Darin Stearns MD derson TYPE AND SCREEN 2020-03-24 09:02:00 Darin Stearns MD COMPLETE BLOOD COUNT W/ 2020-03-24 09:02:00 Darin Stearns MDrsronald DIFFERENTIAL GLUCOSE, RANDOM 2020-03-24 09:02:00 Drain Stearns MD CALCIUM LEVEL TOTAL 2020-03-24 09:02:00 Darin Stearns MD son BLOOD UREA NITROGEN 2020-03-24 09:02:00 Darin Stearns MD son SERUM CREATININE 2020-03-24 09:02:00 Darin Stearns MD SODIUM LEVEL 2020-03-24 09:02:00 Darin Stearns MD POTASSIUM LEVEL 2020-03-24 09:02:00 Darin Stearns MD MAGNESIUM LEVEL 2020-03-24 09:02:00 Darin Stearns MD CHLORIDE LEVEL 2020-03-24 09:02:00 Darin Stearns MD CARBON DIOXIDE LEVEL 2020-03-24 09:02:00 Darin Stearns MD PHOSPHORUS LEVEL 2020-03-24 09:02:00 Darin Stearns MD URIC ACID 2020-03-24 09:02:00 Darin Stearns MD LACTATE DEHYDROGENASE 2020-03-24 09:02:00 Darin Stearnson POTASSIUM VENOUS 2020-03-24 09:02:00 Darin Stearns MD ANTIBODY SCREEN 2020-03-24 09:02:00 Cristian Gonzalez MD ALBUMIN LEVEL 2020-03-24 09:02:00 MD Brain Tang ALKALINE PHOSPHATASE 2020-03-24 09:02:00 MD Young Tang ALANINE AMINOTRANSFERASE 2020-03-24 09:02:00 MD Brain Tang ASPARTATE AMINOTRANSFERASE 2020-03-24 09:02:00 Diana Tang TOTAL PROTEIN 2020-03-24 09:02:00 MD Brain Tang FRACTIONATED BILIRUBIN 2020-03-24 09:02:00 MD Shelby Tang SERUM CREATININE 2020-03-24 09:02:00 Laura Freeman MDGLOMERULAR FILTRATION RATE 2020-03-24 09:02:00 Laura Freeman MD Results CBC 2020-03-24 09:02:00 Laura Freeman MD MANUAL DIFFERENTIAL 2020-03-24 09:02:00 Laura Freeman MD rsronald ANION GAP 2020-03-24 09:02:00 Laura Freeman MD ABORH MANUAL 2020-03-24 09:02:00 Cristian Gonzalez MD CLOT EXPIRATION DATE 2020-03-24 09:02:00 Cristian Gonzalez MD rson POC GLUCOSE SCREEN 2020-03-24 03:24:00 Bebe Guo MD on POC GLUCOSE SCREEN 2020-03-24 00:36:00 Bebe Guo MD on POC GLUCOSE SCREEN 2020-03-23 20:48:00 Bebe Guo MD on POC GLUCOSE SCREEN 2020-03-23 14:06:00 Bebe Guo MD on HEPATIC FUNCTION PANEL 2020-03-23 09:18:00 Darin Stearns MD RETICULOCYTE COUNT 2020-03-23 09:18:00 Laura Freeman MD AUTOMATED COMPLETE BLOOD COUNT W/ 2020-03-23 09:18:00 Darin Stearns MD nderson DIFFERENTIAL GLUCOSE, RANDOM 2020-03-23 09:18:00 Darin Stearns MD CALCIUM LEVEL TOTAL 2020-03-23 09:18:00 Darin Stearns MD [facility] BLOOD UREA NITROGEN 2020-03-23 09:18:00 Darin Stearns MD [facility] SERUM CREATININE 2020-03-23 09:18:00 Darin Stearns MD SODIUM LEVEL 2020-03-23 09:18:00 Darin Stearns MD POTASSIUM LEVEL 2020-03-23 09:18:00 Darin Stearns MD MAGNESIUM LEVEL 2020-03-23 09:18:00 Darin Stearns MD CHLORIDE LEVEL 2020-03-23 09:18:00 Darin Stearns MD CARBON DIOXIDE LEVEL 2020-03-23 09:18:00 Darin Stearns MD PHOSPHORUS LEVEL 2020-03-23 09:18:00 Darin Stearns MD URIC ACID 2020-03-23 09:18:00 Darin Stearns MD LACTATE DEHYDROGENASE 2020-03-23 09:18:00 Darin Stearns ersronald HAPTOGLOBIN 2020-03-23 09:18:00 Darnell Beard MD DIRECT ANTIGLOBULIN TEST 2020-03-23 09:18:00 Darnell Beard ALBUMIN LEVEL 2020-03-23 09:18:00 MD Brain Tang ALKALINE PHOSPHATASE 2020-03-23 09:18:00 MD Young Tang ALANINE AMINOTRANSFERASE 2020-03-23 09:18:00 MD Brain Tang ASPARTATE AMINOTRANSFERASE 2020-03-23 09:18:00 Diana Tang TOTAL PROTEIN 2020-03-23 09:18:00 MD Brain Tang FRACTIONATED BILIRUBIN 2020-03-23 09:18:00 MD Shelby Tang SERUM CREATININE 2020-03-23 09:18:00 Laura Freeman MD .GLOMERULAR FILTRATION RATE 2020-03-23 09:18:00 Laura Freeman MD Results CBC 2020-03-23 09:18:00 Laura Freeman MD MANUAL DIFFERENTIAL 2020-03-23 09:18:00 Laura Freeman MD ANION GAP 2020-03-23 09:18:00 Laura Freeman MD ELUATE ANTIBODY SCREEN 2020-03-23 09:18:00 Darnell Beard MD TMP INTERPRETATION ELUATE 2020-03-23 09:18:00 Darnell Beard MD POC GLUCOSE SCREEN 2020-03-23 03:25:00 Bebe Guo MD on POC GLUCOSE SCREEN 2020-03-23 00:41:00 Bebe Guo MD on TRANSFUSE RED BLOOD CELLS 2020-03-23 00:29:48 Bebe Guo MD POC GLUCOSE SCREEN 2020-03-22 19:21:00 Bebe Guo MD on POC GLUCOSE SCREEN 2020-03-22 15:04:00 Bebe Guo MD on PREPARE RBC 2020-03-22 09:10:00 Bebe Guo MD HEPATIC FUNCTION PANEL 2020-03-22 08:47:00 Darin Stearns MD COMPLETE BLOOD COUNT W/ 2020-03-22 08:47:00 Darin Stearns MD ndersronald DIFFERENTIAL GLUCOSE, RANDOM 2020-03-22 08:47:00 Darin Stearns MD CALCIUM LEVEL TOTAL 2020-03-22 08:47:00 Darin Stearns MD son BLOOD UREA NITROGEN 2020-03-22 08:47:00 Darin Stearns MD son SERUM CREATININE 2020-03-22 08:47:00 Darin Stearns MD SODIUM LEVEL 2020-03-22 08:47:00 Darin Stearns MD POTASSIUM LEVEL 2020-03-22 08:47:00 Darin Stearns MD MAGNESIUM LEVEL 2020-03-22 08:47:00 Darin Stearns MD CHLORIDE LEVEL 2020-03-22 08:47:00 Darin Stearns MD CARBON DIOXIDE LEVEL 2020-03-22 08:47:00 Darin Stearns MD PHOSPHORUS LEVEL 2020-03-22 08:47:00 Darin Stearns MD URIC ACID 2020-03-22 08:47:00 Darin Stearns MD LACTATE DEHYDROGENASE 2020-03-22 08:47:00 Darin Stearnson ALBUMIN LEVEL 2020-03-22 08:47:00 MD Brain Tang ALKALINE PHOSPHATASE 2020-03-22 08:47:00 MD Young Tang ALANINE AMINOTRANSFERASE 2020-03-22 08:47:00 MD Brain Tang ASPARTATE AMINOTRANSFERASE 2020-03-22 08:47:00 Diana Tang TOTAL PROTEIN 2020-03-22 08:47:00 MD Brain Tang FRACTIONATED BILIRUBIN 2020-03-22 08:47:00 MD Shelby Tang SERUM CREATININE 2020-03-22 08:47:00 Laura Freeman MDGLOMERULAR FILTRATION RATE 2020-03-22 08:47:00 Laura Freeman MD Results CBC 2020-03-22 08:47:00 Laura Freeman MD MANUAL DIFFERENTIAL 2020-03-22 08:47:00 Laura Freeman MD rson ANION GAP 2020-03-22 08:47:00 Laura Freeman MD POC GLUCOSE SCREEN 2020-03-22 03:48:00 Bebe Guo MD on POC GLUCOSE SCREEN 2020-03-21 23:57:00 Bebe Guo MD on POC GLUCOSE SCREEN 2020-03-21 16:43:00 Bebe Guo MD on POC GLUCOSE SCREEN 2020-03-21 14:33:00 Bebe Guo MD on HEPATIC FUNCTION PANEL 2020-03-21 09:06:00 Darin Stearns MD TYPE AND SCREEN 2020-03-21 09:06:00 Darin Stearns MD COMPLETE BLOOD COUNT W/ 2020-03-21 09:06:00 Darin Stearns MD nderson DIFFERENTIAL GLUCOSE, RANDOM 2020-03-21 09:06:00 Darin Stearns MD CALCIUM LEVEL TOTAL 2020-03-21 09:06:00 Darin Stearns MD son BLOOD UREA NITROGEN 2020-03-21 09:06:00 Darin Stearns MD son SERUM CREATININE 2020-03-21 09:06:00 Darin Stearns MD SODIUM LEVEL 2020-03-21 09:06:00 Darin Stearns MD POTASSIUM LEVEL 2020-03-21 09:06:00 Darin Stearns MD MAGNESIUM LEVEL 2020-03-21 09:06:00 Darin Stearns MD CHLORIDE LEVEL 2020-03-21 09:06:00 Darin Stearns MD CARBON DIOXIDE LEVEL 2020-03-21 09:06:00 Darin Stearns MD rsronald PHOSPHORUS LEVEL 2020-03-21 09:06:00 Darin Stearns MD URIC ACID 2020-03-21 09:06:00 Darin Stearns MD LACTATE DEHYDROGENASE 2020-03-21 09:06:00 Darin Stearns PROTHROMBIN TIME 2020-03-21 09:06:00 Darin Stearns MD PARTIAL THROMBOPLASTIN TIME 2020-03-21 09:06:00 Darin Stearns MD FIBRINOGEN ACTIVITY 2020-03-21 09:06:00 Darin Stearns MD son ANTIBODY SCREEN 2020-03-21 09:06:00 Cristian Gonzalez MD ALBUMIN LEVEL 2020-03-21 09:06:00 MD Brain Tang ALKALINE PHOSPHATASE 2020-03-21 09:06:00 MD Young Tang ALANINE AMINOTRANSFERASE 2020-03-21 09:06:00 MD Brain Tang ASPARTATE AMINOTRANSFERASE 2020-03-21 09:06:00 Diana Tang TOTAL PROTEIN 2020-03-21 09:06:00 MD Brain Tang FRACTIONATED BILIRUBIN 2020-03-21 09:06:00 MD Shelby Tang SERUM CREATININE 2020-03-21 09:06:00 Laura Freeman MD [facility] rosanne PaigeGLOMERULAR FILTRATION RATE 2020-03-21 09:06:00 Laura Freeman MD Results CBC 2020-03-21 09:06:00 Laura Freeman MD MANUAL DIFFERENTIAL 2020-03-21 09:06:00 Laura Freeman MD ANION GAP 2020-03-21 09:06:00 Laura Freeman MD ABORH MANUAL 2020-03-21 09:06:00 Cristian Gonzalez MD CLOT EXPIRATION DATE 2020-03-21 09:06:00 Cristian Gonzalez MD DIRECT ANTIGLOBULIN TEST 2020-03-21 09:06:00 Cristian Gonzalez MD TMP INTERPRETATION ANTIBODY 2020-03-21 09:06:00 Cristian Gonzalez MD IDENTIFICATION TMP CROSSMATCH 2020-03-21 09:06:00 Cristian Gonzalez MD INTERPRETATION POC GLUCOSE SCREEN 2020-03-21 00:54:00 Bebe Guo MD on POC GLUCOSE SCREEN 2020-03-20 21:04:00 Bebe Guo MD on POC GLUCOSE SCREEN 2020-03-20 14:07:00 Bebe Guo MD on HEPATIC FUNCTION PANEL 2020-03-20 08:52:00 Darin Stearns MD COMPLETE BLOOD COUNT W/ 2020-03-20 08:52:00 Darin Stearns MDrsronald DIFFERENTIAL GLUCOSE, RANDOM 2020-03-20 08:52:00 Darin Stearns MD CALCIUM LEVEL TOTAL 2020-03-20 08:52:00 Darin Stearns MD [facility] BLOOD UREA NITROGEN 2020-03-20 08:52:00 [facility] 2020-03-20 08:52:00 Darin Stearns MD SODIUM LEVEL 2020-03-20 08:52:00 Darin Stearns MD POTASSIUM LEVEL 2020-03-20 08:52:00 Darin Stearns MD MAGNESIUM LEVEL 2020-03-20 08:52:00 Darin Stearns MD CHLORIDE LEVEL 2020-03-20 08:52:00 Darin Stearns MD CARBON DIOXIDE LEVEL 2020-03-20 08:52:00 Darin Stearns MD PHOSPHORUS LEVEL 2020-03-20 08:52:00 Darin Stearns MD URIC ACID 2020-03-20 08:52:00 Darin Stearns MD LACTATE DEHYDROGENASE 2020-03-20 08:52:00 Darin Stearns RETICULOCYTE COUNT 2020-03-20 08:52:00 Mariel Mendiola MD [facility] AUTOMATED ALBUMIN LEVEL 2020-03-20 08:52:00 MD Brain Tang ALKALINE PHOSPHATASE 2020-03-20 08:52:00 MD Young Tnag ALANINE AMINOTRANSFERASE 2020-03-20 08:52:00 MD Brain Tang ASPARTATE AMINOTRANSFERASE 2020-03-20 08:52:00 Diana Tang TOTAL PROTEIN 2020-03-20 08:52:00 MD Brain Tang FRACTIONATED BILIRUBIN 2020-03-20 08:52:00 MD Shelby Tang SERUM CREATININE 2020-03-20 08:52:00 Laura Freeman MDGLOMERULAR FILTRATION RATE 2020-03-20 08:52:00 Laura Freeman MD Results CBC 2020-03-20 08:52:00 Laura Freeman MD MANUAL DIFFERENTIAL 2020-03-20 08:52:00 Laura Freeman MD Young rson ANION GAP 2020-03-20 08:52:00 Laura Freeman MD POC GLUCOSE SCREEN 2020-03-20 05:36:00 Bebe Guo MD on POC GLUCOSE SCREEN 2020-03-19 23:10:00 Bebe Guo MD on POC GLUCOSE SCREEN 2020-03-19 18:33:00 Bebe Guo MD on POC GLUCOSE SCREEN 2020-03-19 13:43:00 Bebe Guo MD on Results CBC 2020-03-19 10:35:00 Laura Freeman MD MANUAL DIFFERENTIAL 2020-03-19 10:35:00 Laura Freeman MD Young rson ANION GAP 2020-03-19 10:35:00 Laura Freeman MD HEPATIC FUNCTION PANEL 2020-03-19 10:35:00 Darin Stearns MD COMPLETE BLOOD COUNT W/ 2020-03-19 10:35:00 Darin Stearns MDrsronald DIFFERENTIAL GLUCOSE, RANDOM 2020-03-19 10:35:00 Darin Stearns MD CALCIUM LEVEL TOTAL 2020-03-19 10:35:00 Darin Stearns MD Bill son BLOOD UREA NITROGEN 2020-03-19 10:35:00 Darin Stearns MD son SERUM CREATININE 2020-03-19 10:35:00 Darin Stearns MD SODIUM LEVEL 2020-03-19 10:35:00 Darin Stearns MD POTASSIUM LEVEL 2020-03-19 10:35:00 Darin Stearns MD MAGNESIUM LEVEL 2020-03-19 10:35:00 Darin Stearns MD CHLORIDE LEVEL 2020-03-19 10:35:00 Darin Stearns MD CARBON DIOXIDE LEVEL 2020-03-19 10:35:00 Darin Stearns MD PHOSPHORUS LEVEL 2020-03-19 10:35:00 Darin Stearns MD URIC ACID 2020-03-19 10:35:00 Darin Stearns MD LACTATE DEHYDROGENASE 2020-03-19 10:35:00 Darin Stearns MD And thomas ALBUMIN LEVEL 2020-03-19 10:35:00 MD Brain Tang ALKALINE PHOSPHATASE 2020-03-19 10:35:00 MD Young Tang ALANINE AMINOTRANSFERASE 2020-03-19 10:35:00 MD Brain Tang ASPARTATE AMINOTRANSFERASE 2020-03-19 10:35:00 Diana Tang TOTAL PROTEIN 2020-03-19 10:35:00 MD Brain Tang FRACTIONATED BILIRUBIN 2020-03-19 10:35:00 MD Shelby Tang SERUM CREATININE 2020-03-19 10:35:00 [facility] R[facility] 2020-03-19 10:35:00 Laura Freeman MD TRANSFUSE RED BLOOD CELLS 2020-03-19 05:39:13 Bebe Guo MD POC GLUCOSE SCREEN 2020-03-19 03:43:00 Bebe Guo MD on POC GLUCOSE SCREEN 2020-03-18 19:16:00 Bebe Guo MD on COVID-19 (SARS-COV-2) 2020-03-18 18:50:00 Bebe Guo MD And erson PCR-ASYMPTOMATIC POC GLUCOSE SCREEN 2020-03-18 14:19:00 Bebe Guo MD on PROTHROMBIN TIME 2020-03-18 11:52:00 Laura Freeman MD PARTIAL THROMBOPLASTIN TIME 2020-03-18 11:52:00 Laura Freeman MD FIBRINOGEN ACTIVITY 2020-03-18 11:52:00 Laura Freeman MD rsronald PREPARE RBC 2020-03-18 11:18:00 Bebe Guo MD HEPATIC FUNCTION PANEL 2020-03-18 10:34:00 Darin Stearns MD derson TYPE AND SCREEN 2020-03-18 10:34:00 Darin Stearns MD COMPLETE BLOOD COUNT W/ 2020-03-18 10:34:00 Darin Stearns MD ndersronald DIFFERENTIAL GLUCOSE, RANDOM 2020-03-18 10:34:00 Darin Stearns MD CALCIUM LEVEL TOTAL 2020-03-18 10:34:00 Darin Stearns MD Bill son BLOOD UREA NITROGEN 2020-03-18 10:34:00 Darin Stearns MD Bill son SERUM CREATININE 2020-03-18 10:34:00 Darin Stearns MD SODIUM LEVEL 2020-03-18 10:34:00 Darin Stearns MD POTASSIUM LEVEL 2020-03-18 10:34:00 Darni Stearns MD MAGNESIUM LEVEL 2020-03-18 10:34:00 Darin Stearns MD CHLORIDE LEVEL 2020-03-18 10:34:00 Darin Stearns MD CARBON DIOXIDE LEVEL 2020-03-18 10:34:00 Darin Stearns MD PHOSPHORUS LEVEL 2020-03-18 10:34:00 Darin Stearns MD URIC ACID 2020-03-18 10:34:00 Darin Stearns MD LACTATE DEHYDROGENASE 2020-03-18 10:34:00 Darin Stearns MD And erson ANTIBODY SCREEN 2020-03-18 10:34:00 Cristian Gonzalez MD ALBUMIN LEVEL 2020-03-18 10:34:00 MD Brain Tang ALKALINE PHOSPHATASE 2020-03-18 10:34:00 MD Young Tang ALANINE AMINOTRANSFERASE 2020-03-18 10:34:00 MD Brain Tang ASPARTATE AMINOTRANSFERASE 2020-03-18 10:34:00 Diana Tang TOTAL PROTEIN 2020-03-18 10:34:00 MD Brain Tang FRACTIONATED BILIRUBIN 2020-03-18 10:34:00 MD Shelby Tang SERUM CREATININE 2020-03-18 10:34:00 Laura Freeman MDGLOMERULAR FILTRATION RATE 2020-03-18 10:34:00 Laura Freeman MD Results CBC 2020-03-18 10:34:00 Luara Freeman MD MANUAL DIFFERENTIAL 2020-03-18 10:34:00 Laura Freeman MD rsronald ANION GAP 2020-03-18 10:34:00 Laura Freeman MD ABORH MANUAL 2020-03-18 10:34:00 Cristian Gonzalez MD DIRECT ANTIGLOBULIN TEST 2020-03-18 10:34:00 Cristian Gonzalez MD CLOT EXPIRATION DATE 2020-03-18 10:34:00 Cristian Gonzalez MD rsronald TMP INTERPRETATION ANTIBODY 2020-03-18 10:34:00 Cristian Gonzalez MD IDENTIFICATION TMP CROSSMATCH 2020-03-18 10:34:00 Cristian Gonzalez MD INTERPRETATION POC GLUCOSE SCREEN 2020-03-18 04:17:00 Bebe Guo MD on POC GLUCOSE SCREEN 2020-03-18 00:25:00 Bebe Guo MD on POC GLUCOSE SCREEN 2020-03-17 18:25:00 Bebe Guo MD on POC GLUCOSE SCREEN 2020-03-17 15:58:00 Bebe Guo MD on HEPATIC FUNCTION PANEL 2020-03-17 08:14:00 Darin Stearns MD RETICULOCYTE COUNT 2020-03-17 08:14:00 Daniela Rosas MD AUTOMATED COMPLETE BLOOD COUNT W/ 2020-03-17 08:14:00 Darin Stearns MD nderson DIFFERENTIAL GLUCOSE, RANDOM 2020-03-17 08:14:00 Darin Stearns MD CALCIUM LEVEL TOTAL 2020-03-17 08:14:00 Darin Stearns MD Bill son BLOOD UREA NITROGEN 2020-03-17 08:14:00 Darin Stearns MD Bill son SERUM CREATININE 2020-03-17 08:14:00 Darin Stearns MD SODIUM LEVEL 2020-03-17 08:14:00 Darin Stearns MD POTASSIUM LEVEL 2020-03-17 08:14:00 Darin Stearns MD MAGNESIUM LEVEL 2020-03-17 08:14:00 Darin Stearns MD CHLORIDE LEVEL 2020-03-17 08:14:00 Darin Stearns MD CARBON DIOXIDE LEVEL 2020-03-17 08:14:00 Darin Stearns MD rson PHOSPHORUS LEVEL 2020-03-17 08:14:00 Darin Stearns MD URIC ACID 2020-03-17 08:14:00 Darin Stearns MD LACTATE DEHYDROGENASE 2020-03-17 08:14:00 Darin Stearns MD And brendaon ALBUMIN LEVEL 2020-03-17 08:14:00 MD Brain Tang ALKALINE PHOSPHATASE 2020-03-17 08:14:00 MD Young Tang ALANINE AMINOTRANSFERASE 2020-03-17 08:14:00 MD Brain Tang ASPARTATE AMINOTRANSFERASE 2020-03-17 08:14:00 Diana Tang TOTAL PROTEIN 2020-03-17 08:14:00 MD Brain Tang FRACTIONATED BILIRUBIN 2020-03-17 08:14:00 MD Shelby Tang SERUM CREATININE 2020-03-17 08:14:00 Laura Freeman MDGLOMERULAR FILTRATION RATE 2020-03-17 08:14:00 Laura Freeman MD Results CBC 2020-03-17 08:14:00 Laura Freeman MD MANUAL DIFFERENTIAL 2020-03-17 08:14:00 Laura Freeman MD Young rsronald ANION GAP 2020-03-17 08:14:00 Laura Freeman MD POC GLUCOSE SCREEN 2020-03-17 05:03:00 Bebe Guo MD on POC GLUCOSE SCREEN 2020-03-17 00:24:00 Bebe Guo MD on POC GLUCOSE SCREEN 2020-03-16 20:08:00 Bebe Guo MD on POC GLUCOSE SCREEN 2020-03-16 13:49:00 Bebe Guo MD on HEPATIC FUNCTION PANEL 2020-03-16 09:56:00 Darin Stearns MD derson POTASSIUM VENOUS 2020-03-16 09:56:00 Alea Gray MD on Lucille COMPLETE BLOOD COUNT W/ 2020-03-16 09:56:00 Darin Stearns MDrsronald DIFFERENTIAL GLUCOSE, RANDOM 2020-03-16 09:56:00 Darin Stearns MD CALCIUM LEVEL TOTAL 2020-03-16 09:56:00 Darin Stearns MD son BLOOD UREA NITROGEN 2020-03-16 09:56:00 Darin Stearns MD son SERUM CREATININE 2020-03-16 09:56:00 Darin Stearns MD SODIUM LEVEL 2020-03-16 09:56:00 Darin Stearns MD MAGNESIUM LEVEL 2020-03-16 09:56:00 Darin Stearns MD CHLORIDE LEVEL 2020-03-16 09:56:00 Darin Stearns MD CARBON DIOXIDE LEVEL 2020-03-16 09:56:00 Darin Stearns MD PHOSPHORUS LEVEL 2020-03-16 09:56:00 Darin Stearns MD URIC ACID 2020-03-16 09:56:00 Darin Stearns MD LACTATE DEHYDROGENASE 2020-03-16 09:56:00 Darin Stearns MD And erson ALBUMIN LEVEL 2020-03-16 09:56:00 MD Brain Tang ALKALINE PHOSPHATASE 2020-03-16 09:56:00 MD Young Tang rsronald Minor ALANINE AMINOTRANSFERASE 2020-03-16 09:56:00 MD Brain Tang ASPARTATE AMINOTRANSFERASE 2020-03-16 09:56:00 Diana Tang TOTAL PROTEIN 2020-03-16 09:56:00 MD Brain Tang FRACTIONATED BILIRUBIN 2020-03-16 09:56:00 MD Shelby Tang SERUM CREATININE 2020-03-16 09:56:00 Laura Freeman MDGLOMERULAR FILTRATION RATE 2020-03-16 09:56:00 Laura Freeman MD Results CBC 2020-03-16 09:56:00 Laura Freeman MD MANUAL DIFFERENTIAL 2020-03-16 09:56:00 Laura Freeman MD rsronald ANION GAP 2020-03-16 09:56:00 Laura Freeman MD POC GLUCOSE SCREEN 2020-03-16 02:56:00 Bebe Guo MD on POC GLUCOSE SCREEN 2020-03-15 23:56:00 Bebe Guo MD on POC GLUCOSE SCREEN 2020-03-15 20:03:00 Bebe Guo MD on POC GLUCOSE SCREEN 2020-03-15 13:56:00 Bebe Guo MD on HEPATIC FUNCTION PANEL 2020-03-15 09:34:00 Darin Stearns MD TYPE AND SCREEN 2020-03-15 09:34:00 Darin Stearns MD POTASSIUM VENOUS 2020-03-15 09:34:00 Alea Gray MD on Lucille COMPLETE BLOOD COUNT W/ 2020-03-15 09:34:00 Darin Stearns MD nderson DIFFERENTIAL GLUCOSE, RANDOM 2020-03-15 09:34:00 Darin Stearns MD CALCIUM LEVEL TOTAL 2020-03-15 09:34:00 Darin Stearns MD son BLOOD UREA NITROGEN 2020-03-15 09:34:00 Darin Stearns MD son SERUM CREATININE 2020-03-15 09:34:00 Darin Stearns MD SODIUM LEVEL 2020-03-15 09:34:00 Darin Stearns MD MAGNESIUM LEVEL 2020-03-15 09:34:00 Darin Stearns MD CHLORIDE LEVEL 2020-03-15 09:34:00 Darin Stearns MD CARBON DIOXIDE LEVEL 2020-03-15 09:34:00 Darin Stearns MD rsronald PHOSPHORUS LEVEL 2020-03-15 09:34:00 Darin Stearns MD URIC ACID 2020-03-15 09:34:00 Darin Stearns MD LACTATE DEHYDROGENASE 2020-03-15 09:34:00 Darin Stearns erson PROTHROMBIN TIME 2020-03-15 09:34:00 Darin Stearns MD PARTIAL THROMBOPLASTIN TIME 2020-03-15 09:34:00 Darin Stearns MD FIBRINOGEN ACTIVITY 2020-03-15 09:34:00 Darin Stearns MD son RETICULOCYTE COUNT 2020-03-15 09:34:00 Savanah Peña MD Isra on AUTOMATED Becca ANTIBODY SCREEN 2020-03-15 09:34:00 Cristian Gonzalez MD ALBUMIN LEVEL 2020-03-15 09:34:00 MD Brain Tang ALKALINE PHOSPHATASE 2020-03-15 09:34:00 MD Clyde Youngdanny Minor ALANINE AMINOTRANSFERASE 2020-03-15 09:34:00 MD Brain Tang ASPARTATE AMINOTRANSFERASE 2020-03-15 09:34:00 Diana Tang TOTAL PROTEIN 2020-03-15 09:34:00 MD Brain Tang FRACTIONATED BILIRUBIN 2020-03-15 09:34:00 MD Shelby Tang SERUM CREATININE 2020-03-15 09:34:00 Laura Freeman MD Andeddie n RoyalGLOMERULAR FILTRATION RATE 2020-03-15 09:34:00 Laura Freeman MD Results CBC 2020-03-15 09:34:00 Laura Freeman MD MANUAL DIFFERENTIAL 2020-03-15 09:34:00 Laura Freeman MD ANION GAP 2020-03-15 09:34:00 Laura Freeman MD ABORH MANUAL 2020-03-15 09:34:00 Cristian Gonzalez MD CLOT EXPIRATION DATE 2020-03-15 09:34:00 Cristian Gonzalez MD rson POC GLUCOSE SCREEN 2020-03-15 03:33:00 Bebe Guo MD on POC GLUCOSE SCREEN 2020-03-15 00:01:00 Bebe Guo MD on TRANSFUSE RED BLOOD CELLS 2020-03-14 21:24:08 Bebe Guo MD POC GLUCOSE SCREEN 2020-03-14 18:23:00 Bebe Guo MD on POC GLUCOSE SCREEN 2020-03-14 13:44:00 Bebe Guo MD on PREPARE RBC 2020-03-14 08:32:00 Bebe Guo MD HEPATIC FUNCTION PANEL 2020-03-14 08:17:00 Darin Stearns MD derson POTASSIUM VENOUS 2020-03-14 08:17:00 Alea Gray MD on Lucille COMPLETE BLOOD COUNT W/ 2020-03-14 08:17:00 Darin Stearns MD ndersronald DIFFERENTIAL GLUCOSE, RANDOM 2020-03-14 08:17:00 Darin Stearns MD CALCIUM LEVEL TOTAL 2020-03-14 08:17:00 Darin Stearns MD son BLOOD UREA NITROGEN 2020-03-14 08:17:00 Darin Stearns MD son SERUM CREATININE 2020-03-14 08:17:00 Darin Stearns MD SODIUM LEVEL 2020-03-14 08:17:00 Darin Stearns MD MAGNESIUM LEVEL 2020-03-14 08:17:00 Darin Stearns MD CHLORIDE LEVEL 2020-03-14 08:17:00 Darin Stearns MD CARBON DIOXIDE LEVEL 2020-03-14 08:17:00 Darin Stearns MD PHOSPHORUS LEVEL 2020-03-14 08:17:00 Darin Stearns MD URIC ACID 2020-03-14 08:17:00 Darin Stearns MD LACTATE DEHYDROGENASE 2020-03-14 08:17:00 Darin Stearns ALBUMIN LEVEL 2020-03-14 08:17:00 MD Brain Tang ALKALINE PHOSPHATASE 2020-03-14 08:17:00 MD Young Tang ALANINE AMINOTRANSFERASE 2020-03-14 08:17:00 MD Brain Tang ASPARTATE AMINOTRANSFERASE 2020-03-14 08:17:00 Diana Tang TOTAL PROTEIN 2020-03-14 08:17:00 MD Brain Tang FRACTIONATED BILIRUBIN 2020-03-14 08:17:00 MD Shelby Tang SERUM CREATININE 2020-03-14 08:17:00 Laura Freeman MDGLOMERULAR FILTRATION RATE 2020-03-14 08:17:00 Laura Freeman MD Results CBC 2020-03-14 08:17:00 Laura Freeman MD MANUAL DIFFERENTIAL 2020-03-14 08:17:00 Laura Freeman MD ANION GAP 2020-03-14 08:17:00 Laura Freeman MD POC GLUCOSE SCREEN 2020-03-14 04:20:00 Bebe Guo MD on POC GLUCOSE SCREEN 2020-03-14 00:09:00 Bebe Guo MD on POC GLUCOSE SCREEN 2020-03-13 20:35:00 Bebe Guo MD on POC GLUCOSE SCREEN 2020-03-13 14:42:00 Bebe Guo MD on POTASSIUM VENOUS 2020-03-13 09:29:00 Bebe Guo MD HEPATIC FUNCTION PANEL 2020-03-13 08:43:00 Darin Stearns MD RETICULOCYTE COUNT 2020-03-13 08:43:00 Cristian Gonzalez MD on AUTOMATED CALCIUM LEVEL TOTAL 2020-03-13 08:43:00 Alea Gray MD And thomas Adkins COMPLETE BLOOD COUNT W/ 2020-03-13 08:43:00 Alea Gray MD DIFFERENTIAL Lucille LACTATE DEHYDROGENASE 2020-03-13 08:43:00 Alea Gray MD MAGNESIUM LEVEL 2020-03-13 08:43:00 Alea Gray MD PHOSPHORUS LEVEL 2020-03-13 08:43:00 Alea Gray MD on Lucille URIC ACID 2020-03-13 08:43:00 Alea Gray MD GLUCOSE, RANDOM 2020-03-13 08:43:00 Darin Stearns MD BLOOD UREA NITROGEN 2020-03-13 08:43:00 Darin Stearns MD son SERUM CREATININE 2020-03-13 08:43:00 Darin Stearns MD SODIUM LEVEL 2020-03-13 08:43:00 Darin Stearns MD POTASSIUM LEVEL 2020-03-13 08:43:00 Darin Stearns MD CHLORIDE LEVEL 2020-03-13 08:43:00 Darin Stearns MD CARBON DIOXIDE LEVEL 2020-03-13 08:43:00 Darin Stearns MD ALBUMIN LEVEL 2020-03-13 08:43:00 MD Brain Tang ALKALINE PHOSPHATASE 2020-03-13 08:43:00 MD Young Tang ALANINE AMINOTRANSFERASE 2020-03-13 08:43:00 MD Brain Tang ASPARTATE AMINOTRANSFERASE 2020-03-13 08:43:00 Diana Tang TOTAL PROTEIN 2020-03-13 08:43:00 MD Brain Tang FRACTIONATED BILIRUBIN 2020-03-13 08:43:00 MD Shelby Tang SERUM CREATININE 2020-03-13 08:43:00 Laura Freeman MD .GLOMERULAR FILTRATION RATE 2020-03-13 08:43:00 Laura Freeman MD Results CBC 2020-03-13 08:43:00 MD Brain Tang MANUAL DIFFERENTIAL 2020-03-13 08:43:00 MD Clyde Bill son Mily ANION GAP 2020-03-13 08:43:00 Laura Freeman MD POC GLUCOSE SCREEN 2020-03-13 06:14:00 Bebe Guo MD on POC GLUCOSE SCREEN 2020-03-13 01:18:00 Bebe Guo MD on POC GLUCOSE SCREEN 2020-03-12 18:53:00 Bebe Guo MD on POC GLUCOSE SCREEN 2020-03-12 14:32:00 Bebe Guo MD on TYPE AND SCREEN 2020-03-12 09:08:00 Laura Freeman MD ANTIBODY SCREEN 2020-03-12 09:08:00 Laura Freeman MD HEPATIC FUNCTION PANEL 2020-03-12 09:08:00 Darin Stearns MD derson CALCIUM LEVEL TOTAL 2020-03-12 09:08:00 Alea Gray MD And thomas Adkins COMPLETE BLOOD COUNT W/ 2020-03-12 09:08:00 Alea Gray MD DIFFERENTIAL Lucille LACTATE DEHYDROGENASE 2020-03-12 09:08:00 Alea Gray MD nderson Lucille MAGNESIUM LEVEL 2020-03-12 09:08:00 Alea Gray MD n Lucille PHOSPHORUS LEVEL 2020-03-12 09:08:00 Alea Gray MD on Lucille POTASSIUM VENOUS 2020-03-12 09:08:00 Alea Gray MD on Lucille URIC ACID 2020-03-12 09:08:00 Alea Gray MD Andbrendao n Lucille GLUCOSE, RANDOM 2020-03-12 09:08:00 Darin Stearns MD BLOOD UREA NITROGEN 2020-03-12 09:08:00 Darin Stearns MD Bill son SERUM CREATININE 2020-03-12 09:08:00 Darin Stearns MD SODIUM LEVEL 2020-03-12 09:08:00 Darin Stearns MD CHLORIDE LEVEL 2020-03-12 09:08:00 Darin Stearns MD CARBON DIOXIDE LEVEL 2020-03-12 09:08:00 Darin Stearns MD rson PROTHROMBIN TIME 2020-03-12 09:08:00 Darin Stearns MD PARTIAL THROMBOPLASTIN TIME 2020-03-12 09:08:00 Darin Stearns MD FIBRINOGEN ACTIVITY 2020-03-12 09:08:00 Darin Stearns MD Bill son ALBUMIN LEVEL 2020-03-12 09:08:00 MD Brain Tang ALKALINE PHOSPHATASE 2020-03-12 09:08:00 MD And Clydedanny peters Mily ALANINE AMINOTRANSFERASE 2020-03-12 09:08:00 MD Brain Tang ASPARTATE AMINOTRANSFERASE 2020-03-12 09:08:00 Diana Tang TOTAL PROTEIN 2020-03-12 09:08:00 MD Brain Tang FRACTIONATED BILIRUBIN 2020-03-12 09:08:00 MD Shelby Tang SERUM CREATININE 2020-03-12 09:08:00 Laura Freeman MD Andbrenda n .GLOMERULAR FILTRATION RATE 2020-03-12 09:08:00 Laura Freeman MD Results CBC 2020-03-12 09:08:00 MD Brain Tang MANUAL DIFFERENTIAL 2020-03-12 09:08:00 MD Clyde Bill kacey Mily ANION GAP 2020-03-12 09:08:00 Laura Freeman MD ABORH MANUAL 2020-03-12 09:08:00 Laura Freeman MD CLOT EXPIRATION DATE 2020-03-12 09:08:00 Laura Freeman MD And brendaon DIRECT ANTIGLOBULIN TEST 2020-03-12 09:08:00 Laura Freeman MD ELUATE ANTIBODY SCREEN 2020-03-12 09:08:00 Laura Freeman MD nderson TMP INTERPRETATION ANTIBODY 2020-03-12 09:08:00 Laura Freeman MD IDENTIFICATION TMP INTERPRETATION ELUATE 2020-03-12 09:08:00 Laura Freeman TMP CROSSMATCH 2020-03-12 09:08:00 Laura Freeman MD INTERPRETATION POC CRITICAL 2020-03-12 05:43:00 Bebe Guo MD POC GLUCOSE SCREEN 2020-03-12 05:43:00 Bebe Guo MD on POC GLUCOSE SCREEN 2020-03-12 01:09:00 Bebe Guo MD on POC GLUCOSE SCREEN 2020-03-11 22:00:00 Bebe Guo MD on POC GLUCOSE SCREEN 2020-03-11 19:01:00 Bebe Guo MD on COVID-19 (SARS-COV-2) 2020-03-11 16:47:00 Bebe Guo MD And brendaon PCR-ASYMPTOMATIC MC POC GLUCOSE SCREEN 2020-03-11 14:14:00 Bebe Guo MD on HEPATIC FUNCTION PANEL 2020-03-11 09:25:00 Darin Stearns MD RETICULOCYTE COUNT 2020-03-11 09:25:00 Cristian Gonzalez MD on AUTOMATED HAPTOGLOBIN 2020-03-11 09:25:00 Cristian Gonzalez MD CALCIUM LEVEL TOTAL 2020-03-11 09:25:00 Alea Gray MD And thomas Adkins COMPLETE BLOOD COUNT W/ 2020-03-11 09:25:00 Alea Gray MD DIFFERENTIAL Lucille LACTATE DEHYDROGENASE 2020-03-11 09:25:00 Alea Gray MDrsronald Adkins MAGNESIUM LEVEL 2020-03-11 09:25:00 Alea Gray MD PHOSPHORUS LEVEL 2020-03-11 09:25:00 Alea Gray MD on Lucille URIC ACID 2020-03-11 09:25:00 Alea Gray MD GLUCOSE, RANDOM 2020-03-11 09:25:00 Darin Stearns MD BLOOD UREA NITROGEN 2020-03-11 09:25:00 Darin Stearns MD son SERUM CREATININE 2020-03-11 09:25:00 Darin Stearns MD SODIUM LEVEL 2020-03-11 09:25:00 Darin Stearns MD POTASSIUM LEVEL 2020-03-11 09:25:00 Darin Stearns MD CHLORIDE LEVEL 2020-03-11 09:25:00 Darin Staerns MD CARBON DIOXIDE LEVEL 2020-03-11 09:25:00 Darin Stearns MD rsronald ALBUMIN LEVEL 2020-03-11 09:25:00 MD Brain Tang ALKALINE PHOSPHATASE 2020-03-11 09:25:00 MD Young Tang ALANINE AMINOTRANSFERASE 2020-03-11 09:25:00 MD Brain Tang ASPARTATE AMINOTRANSFERASE 2020-03-11 09:25:00 Diana Tang TOTAL PROTEIN 2020-03-11 09:25:00 MD Brain Tang FRACTIONATED BILIRUBIN 2020-03-11 09:25:00 MD Shelby Tang SERUM CREATININE 2020-03-11 09:25:00 Laura Freeman MDGLOMERULAR FILTRATION RATE 2020-03-11 09:25:00 Laura Freeman MD Results CBC 2020-03-11 09:25:00 MD Brain Tang MANUAL DIFFERENTIAL 2020-03-11 09:25:00 MD Bill Tang son Mily ANION GAP 2020-03-11 09:25:00 Laura Freeman MD POC GLUCOSE SCREEN 2020-03-11 01:14:00 Bebe Guo MD on POC GLUCOSE SCREEN 2020-03-10 23:07:00 Bebe Guo MD on POC GLUCOSE SCREEN 2020-03-10 20:00:00 Bebe Guo MD on TRANSFUSE RED BLOOD CELLS 2020-03-10 18:46:42 Bebe Guo MD POC GLUCOSE SCREEN 2020-03-10 13:22:00 Bebe Guo MD on PREPARE RBC 2020-03-10 12:47:00 Bebe Guo MD HEPATIC FUNCTION PANEL 2020-03-10 12:07:00 Darin Stearns MD CALCIUM LEVEL TOTAL 2020-03-10 12:07:00 Alea Gray MD And thomas Adkins COMPLETE BLOOD COUNT W/ 2020-03-10 12:07:00 Alea Gray MD DIFFERENTIAL Lucille LACTATE DEHYDROGENASE 2020-03-10 12:07:00 Alea Gray MD nderson Lucille MAGNESIUM LEVEL 2020-03-10 12:07:00 Alea Gray MD Lucille PHOSPHORUS LEVEL 2020-03-10 12:07:00 Alea Gray MD on Lucille POTASSIUM VENOUS 2020-03-10 12:07:00 Alea Gray MD on Lucille URIC ACID 2020-03-10 12:07:00 Alea Gray MD GLUCOSE, RANDOM 2020-03-10 12:07:00 Darin Stearns MD BLOOD UREA NITROGEN 2020-03-10 12:07:00 Darin Stearns MD son SERUM CREATININE 2020-03-10 12:07:00 Darin Stearns MD SODIUM LEVEL 2020-03-10 12:07:00 Darin Sterans MD CHLORIDE LEVEL 2020-03-10 12:07:00 Darin Stearns MD CARBON DIOXIDE LEVEL 2020-03-10 12:07:00 Darin Stearns MD rson ALBUMIN LEVEL 2020-03-10 12:07:00 MD Brain Tang ALKALINE PHOSPHATASE 2020-03-10 12:07:00 MD Young Tang ALANINE AMINOTRANSFERASE 2020-03-10 12:07:00 MD Brain Tang ASPARTATE AMINOTRANSFERASE 2020-03-10 12:07:00 Diana Tang TOTAL PROTEIN 2020-03-10 12:07:00 MD Brain Tang FRACTIONATED BILIRUBIN 2020-03-10 12:07:00 MD Shelby Tang SERUM CREATININE 2020-03-10 12:07:00 Laura Freeman MD .GLOMERULAR FILTRATION RATE 2020-03-10 12:07:00 Laura Freeman MD Results CBC 2020-03-10 12:07:00 MD Brain Tang MANUAL DIFFERENTIAL 2020-03-10 12:07:00 MD Clyde Bill son Mily ANION GAP 2020-03-10 12:07:00 Laura Freeman MD POC GLUCOSE SCREEN 2020-03-10 05:55:00 Bebe Guo MD on POC GLUCOSE SCREEN 2020-03-10 02:23:00 Bebe Guo MD on OSCILLATORY PEP 2020-03-09 20:01:30 Bebe Guo MD POC GLUCOSE SCREEN 2020-03-09 18:36:00 Bebe Guo MD on OSCILLATORY PEP 2020-03-09 16:12:58 Bebe Guo MD POC GLUCOSE SCREEN 2020-03-09 13:49:00 Bebe Guo MD on HEPATIC FUNCTION PANEL 2020-03-09 06:37:00 Darin Stearns MD RETICULOCYTE COUNT 2020-03-09 06:37:00 Alea Gray MD Young rson AUTOMATED [place]ille CALCIUM LEVEL TOTAL 2020-03-09 06:37:00 Alea Gray MD And erson Lucille COMPLETE BLOOD COUNT W/ 2020-03-09 06:37:00 lAea Gray MD DIFFERENTIAL [place] LACTATE DEHYDROGENASE 2020-03-09 06:37:00 Alea Gray MD nderson [place] MAGNESIUM LEVEL 2020-03-09 06:37:00 Alea Gray MD n Luc[place] PHOSPHORUS LEVEL 2020-03-09 06:37:00 Alea Gray MD on Lucille POTASSIUM VENOUS 2020-03-09 06:37:00 Alea Gray MD on Lucille URIC ACID 2020-03-09 06:37:00 Alea Gray MD Andeddie n Lucille GLUCOSE, RANDOM 2020-03-09 06:37:00 Darin Stearns MD BLOOD UREA NITROGEN 2020-03-09 06:37:00 Darin Stearns MD son SERUM CREATININE 2020-03-09 06:37:00 Darin Stearns MD SODIUM LEVEL 2020-03-09 06:37:00 Darin Stearns MD CHLORIDE LEVEL 2020-03-09 06:37:00 Darin Stearns MD CARBON DIOXIDE LEVEL 2020-03-09 06:37:00 Darin Stearns MD PROTHROMBIN TIME 2020-03-09 06:37:00 Darin Stearns MD PARTIAL THROMBOPLASTIN TIME 2020-03-09 06:37:00 Darin Stearns MD FIBRINOGEN ACTIVITY 2020-03-09 06:37:00 Darin Stearns MD Bill kacey ALBUMIN LEVEL 2020-03-09 06:37:00 MD Brain Tang ALKALINE PHOSPHATASE 2020-03-09 06:37:00 MD Young Tang ALANINE AMINOTRANSFERASE 2020-03-09 06:37:00 MD Brain Tang ASPARTATE AMINOTRANSFERASE 2020-03-09 06:37:00 Diana Tang TOTAL PROTEIN 2020-03-09 06:37:00 MD Brain Tang FRACTIONATED BILIRUBIN 2020-03-09 06:37:00 MD Shelby Tang SERUM CREATININE 2020-03-09 06:37:00 Laura Freeman MD [facility] rosanne PaigeGLOMERULAR FILTRATION RATE 2020-03-09 06:37:00 Laura Freeman MD Results CBC 2020-03-09 06:37:00 MD Brain Tang MANUAL DIFFERENTIAL 2020-03-09 06:37:00 MD Bill Tang kacey Mily ANION GAP 2020-03-09 06:37:00 Laura Freeman MD TRANSFUSE RED BLOOD CELLS 2020-03-09 00:01:42 MD Brain Tang HISTORICAL ABSC 2020-03-08 16:03:00 MD Brain Tang PREPARE RBC 2020-03-08 15:12:00 MD Brain Tang TYPE AND SCREEN 2020-03-08 11:49:00 Tori Valenzuela MD ANTIBODY SCREEN 2020-03-08 11:49:00 Tori Valenzuela MD ABORH MANUAL 2020-03-08 11:49:00 Tori Valenzuela MD CLOT EXPIRATION DATE 2020-03-08 11:49:00 Tori Valenzuela MD TMP INTERPRETATION ANTIBODY 2020-03-08 11:49:00 Tori Valenzuela MD IDENTIFICATION DIRECT ANTIGLOBULIN TEST 2020-03-08 11:49:00 Tori Valenzuela MD TMP CROSSMATCH 2020-03-08 11:49:00 Tori Valenzuela MD INTERPRETATION PREPARE RBC 2020-03-08 10:45:00 Tori Valenzuela MD HEPATIC FUNCTION PANEL 2020-03-08 09:15:00 Darin Stearns MD RETICULOCYTE COUNT 2020-03-08 09:15:00 Alea Gray MD Youngdanny peters AUTOMATED Lucille CALCIUM LEVEL TOTAL 2020-03-08 09:15:00 Alea Gray MD And erson Lucille COMPLETE BLOOD COUNT W/ 2020-03-08 09:15:00 Alea Gray MD DIFFERENTIAL [place] LACTATE DEHYDROGENASE 2020-03-08 09:15:00 Alea Gray MD nderson Lucille MAGNESIUM LEVEL 2020-03-08 09:15:00 Alea Gray MD Andedide lay Lucille PHOSPHORUS LEVEL 2020-03-08 09:15:00 Alea Gray MD on Lucille POTASSIUM VENOUS 2020-03-08 09:15:00 Alea Gray MD on Lucille URIC ACID 2020-03-08 09:15:00 Alea Gray MD Andeddie lay Lucille ALBUMIN LEVEL 2020-03-08 09:15:00 MD Brain Tang ALKALINE PHOSPHATASE 2020-03-08 09:15:00 MD Young Tang ALANINE AMINOTRANSFERASE 2020-03-08 09:15:00 MD rBain Tang ASPARTATE AMINOTRANSFERASE 2020-03-08 09:15:00 Diana Tang TOTAL PROTEIN 2020-03-08 09:15:00 MD Brain Tang FRACTIONATED BILIRUBIN 2020-03-08 09:15:00 MD Shelby Tang Results CBC 2020-03-08 09:15:00 MD Brain Tang MANUAL DIFFERENTIAL 2020-03-08 09:15:00 MD Bill Tang son Mily OSCILLATORY PEP 2020-03-07 14:00:14 Alea Gray MD BASIC METABOLIC PANEL, 2020-03-07 12:43:00 Amor Barnhart MD CALCIUM IONIZED CALCIUM LEVEL TOTAL 2020-03-07 12:43:00 Amor Barnhart MD Bill son COMPLETE BLOOD COUNT W/ 2020-03-07 12:43:00 Amor Barnhart MD nderson DIFFERENTIAL LACTATE DEHYDROGENASE 2020-03-07 12:43:00 Amor Barnhart MD And erson MAGNESIUM LEVEL 2020-03-07 12:43:00 Amor Barnhart MD PHOSPHORUS LEVEL 2020-03-07 12:43:00 Amor Barnhart MD URIC ACID 2020-03-07 12:43:00 Amor Barnhart MD POTASSIUM VENOUS 2020-03-07 12:43:00 Amor Barnhart MD GLUCOSE LEVEL 2020-03-07 12:43:00 Amor Barnhart MD BLOOD UREA NITROGEN 2020-03-07 12:43:00 Amor Barnhart MD son ELECTROLYTE PANEL 2020-03-07 12:43:00 [facility] 2020-03-07 12:43:00 Amor Barnhart MD .GLOMERULAR FILTRATION RATE 2020-03-07 12:43:00 Amor Barnhart MD CALCIUM IONIZED, VENOUS 2020-03-07 12:43:00 Amor Barnhart MDrson Results CBC 2020-03-07 12:43:00 Amor Barnhart MD MANUAL DIFFERENTIAL 2020-03-07 12:43:00 Amor Barnhart MD son POC GLUCOSE SCREEN 2020-03-07 11:12:00 MD Isra Tang on Mily PROTHROMBIN TIME 2020-03-07 08:32:00 Amor Barnhart MD PARTIAL THROMBOPLASTIN TIME 2020-03-07 08:32:00 Amor Barnhart MD LACTIC ACID, VENOUS 2020-03-07 08:32:00 Amor Barnhart MD Bill son BASIC METABOLIC PANEL, 2020-03-07 08:32:00 Amor Barnhart MD derson CALCIUM IONIZED CALCIUM LEVEL TOTAL 2020-03-07 08:32:00 Amor Barnhart MD Bill son COMPLETE BLOOD COUNT W/ 2020-03-07 08:32:00 Amor Barnhart MDrson DIFFERENTIAL HEPATIC FUNCTION PANEL 2020-03-07 08:32:00 Darin Stearns MD LACTATE DEHYDROGENASE 2020-03-07 08:32:00 Amor Barnhart MD And erson MAGNESIUM LEVEL 2020-03-07 08:32:00 Amor Barnhart MD PHOSPHORUS LEVEL 2020-03-07 08:32:00 Amor Barnhart MD URIC ACID 2020-03-07 08:32:00 Amor Barnhart MD POTASSIUM VENOUS 2020-03-07 08:32:00 Amor Barnhart MD RETICULOCYTE COUNT 2020-03-07 08:32:00 Alea Gray MD Young rson AUTOMATED Lucille CALCIUM IONIZED, VENOUS 2020-03-07 08:32:00 Amor Barnhart MDrson GLUCOSE LEVEL 2020-03-07 08:32:00 Amor Barnhart MD BLOOD UREA NITROGEN 2020-03-07 08:32:00 Amor Barnhart MD Bill son ELECTROLYTE PANEL 2020-03-07 08:32:00 Amor Barnhart MD n SERUM CREATININE 2020-03-07 08:32:00 Amor Barnhart MD .GLOMERULAR FILTRATION RATE 2020-03-07 08:32:00 Amor Barnhart MD Results CBC 2020-03-07 08:32:00 Amor Barnhart MD MANUAL DIFFERENTIAL 2020-03-07 08:32:00 Amor Barnhart MD Bill son ALBUMIN LEVEL 2020-03-07 08:32:00 Amor Barnhart MD ALKALINE PHOSPHATASE 2020-03-07 08:32:00 Amor Barnhart MD Young rsronald ALANINE AMINOTRANSFERASE 2020-03-07 08:32:00 Amor Barnhart MD ASPARTATE AMINOTRANSFERASE 2020-03-07 08:32:00 Amor Barnhart TOTAL PROTEIN 2020-03-07 08:32:00 Amor Barnhart MD FRACTIONATED BILIRUBIN 2020-03-07 08:32:00 Amor Barnhart MD CBC PATHOLOGY REVIEW 2020-03-07 08:32:00 Amor Barnhart MD Young rson PRELIMINARY DIFFERENTIAL 2020-03-07 08:32:00 Amor Barnhart MD POC GLUCOSE SCREEN 2020-03-07 05:31:00 MD Isra Tang on Mily POC GLUCOSE SCREEN 2020-03-07 02:47:00 MD Isra Tang on Mily OSCILLATORY PEP 2020-03-07 02:00:18 Alea Gray MD POC GLUCOSE SCREEN 2020-03-06 23:51:00 MD Isra Tang on [facility] BASIC METABOLIC PANEL, 2020-03-06 23:37:00 Amor Barnhart MD CALCIUM IONIZED CALCIUM LEVEL TOTAL 2020-03-06 23:37:00 Amor Barnhart MD Bill son COMPLETE BLOOD COUNT W/ 2020-03-06 23:37:00 Amor Barnhart MD nderson DIFFERENTIAL LACTATE DEHYDROGENASE 2020-03-06 23:37:00 Amor Barnhart MD And erson MAGNESIUM LEVEL 2020-03-06 23:37:00 Amor Barnhart MD PHOSPHORUS LEVEL 2020-03-06 23:37:00 Amor Barnhart MD URIC ACID 2020-03-06 23:37:00 Amor Barnhart MD POTASSIUM VENOUS 2020-03-06 23:37:00 Amor Barnhart MD GLUCOSE LEVEL 2020-03-06 23:37:00 Amor Barnhart MD BLOOD UREA NITROGEN 2020-03-06 23:37:00 Amor Barnhart MD Bill son ELECTROLYTE PANEL 2020-03-06 23:37:00 Amor Barnhart MD SERUM CREATININE 2020-03-06 23:37:00 Amor Barnhart MD .GLOMERULAR FILTRATION RATE 2020-03-06 23:37:00 Amor Barnhart MD CALCIUM IONIZED, VENOUS 2020-03-06 23:37:00 Amor Barnhart MDrson Results CBC 2020-03-06 23:37:00 Amor Barnhart MD MANUAL DIFFERENTIAL 2020-03-06 23:37:00 Amor Barnhart MD Bill son OSCILLATORY PEP 2020-03-06 22:00:21 Alea Gray MD Lucille BLOODCULTURE 2020-03-06 18:16:00 Althea Guerra MD son BASIC METABOLIC PANEL, 2020-03-06 18:16:00 Amor Barnhart MD derson CALCIUM IONIZED CALCIUM LEVEL TOTAL 2020-03-06 18:16:00 Amor Barnhart MD Bill son COMPLETE BLOOD COUNT W/ 2020-03-06 18:16:00 Amor Barnhart MD DIFFERENTIAL LACTATE DEHYDROGENASE 2020-03-06 18:16:00 Amor Barnhart MAGNESIUM LEVEL 2020-03-06 18:16:00 Amor Barnhart MD PHOSPHORUS LEVEL 2020-03-06 18:16:00 Amor Barnhart MD URIC ACID 2020-03-06 18:16:00 Amor Barnhart MD POTASSIUM VENOUS 2020-03-06 18:16:00 Amor Barnhart MD GLUCOSE LEVEL 2020-03-06 18:16:00 Amor Barnhart MD BLOOD UREA NITROGEN 2020-03-06 18:16:00 Amor Barnhart MD son ELECTROLYTE PANEL 2020-03-06 18:16:00 Amor Barnhart MD SERUM CREATININE 2020-03-06 18:16:00 Amor Barnhart MD .GLOMERULAR FILTRATION RATE 2020-03-06 18:16:00 Amor Barnhart MD CALCIUM IONIZED, VENOUS 2020-03-06 18:16:00 Amor Barnhart MD Results CBC 2020-03-06 18:16:00 Amor Barnhart MD MANUAL DIFFERENTIAL 2020-03-06 18:16:00 Aomr Barnhart MD son POC GLUCOSE SCREEN 2020-03-06 18:01:00 MD Isra Tang on Mily OSCILLATORY PEP 2020-03-06 18:00:16 Alea Gray MD OSCILLATORY PEP 2020-03-06 14:00:11 Alea Gray MD BASIC METABOLIC PANEL, 2020-03-06 12:09:00 Amor Barnhart MDson CALCIUM IONIZED CALCIUM LEVEL TOTAL 2020-03-06 12:09:00 Amor Barnharter son COMPLETE BLOOD COUNT W/ 2020-03-06 12:09:00 Amor Barnhart MD DIFFERENTIAL LACTATE DEHYDROGENASE 2020-03-06 12:09:00 Amor Barnhart MD And ers MAGNESIUM LEVEL 2020-03-06 12:09:00 Amor Barnhart MD PHOSPHORUS LEVEL 2020-03-06 12:09:00 Amor Barnhart MD URIC ACID 2020-03-06 12:09:00 Amor Barnhart MD POTASSIUM VENOUS 2020-03-06 12:09:00 Amor Barnhart MD GLUCOSE LEVEL 2020-03-06 12:09:00 Amor Barnhart MD BLOOD UREA NITROGEN 2020-03-06 12:09:00 Amor Barnharter son ELECTROLYTE PANEL 2020-03-06 12:09:00 Amor Barnhart MD SERUM CREATININE 2020-03-06 12:09:00 Amor Barnhart MD .GLOMERULAR FILTRATION RATE 2020-03-06 12:09:00 Amor Barnhart MD CALCIUM IONIZED, VENOUS 2020-03-06 12:09:00 Amor Barnhart MD Results CBC 2020-03-06 12:09:00 Amor Barnhart MD MANUAL DIFFERENTIAL 2020-03-06 12:09:00 Amor Barnharter son POC GLUCOSE SCREEN 2020-03-06 11:37:00 MD Isra Tang on Mily POC CRITICAL 2020-03-06 09:36:00 MD Brain Tang Mily POC CHEM 8 2020-03-06 09:36:00 MD Brain Tang PROTHROMBIN TIME 2020-03-06 06:28:00 Amor Barnhart MD PARTIAL THROMBOPLASTIN TIME 2020-03-06 06:28:00 Amor Barnhart MD LACTIC ACID, VENOUS 2020-03-06 06:28:00 Amor Barnhart MD Bill son BASIC METABOLIC PANEL, 2020-03-06 06:28:00 Amor Barnhart MD CALCIUM IONIZED CALCIUM LEVEL TOTAL 2020-03-06 06:28:00 Amor Barnhart MD Bill son COMPLETE BLOOD COUNT W/ 2020-03-06 06:28:00 Amor Barnhart MD DIFFERENTIAL HEPATIC FUNCTION PANEL 2020-03-06 06:28:00 Darin Stearns MD LACTATE DEHYDROGENASE 2020-03-06 06:28:00 Amor Barnhart MD And erson MAGNESIUM LEVEL 2020-03-06 06:28:00 Amor Barnhart MD PHOSPHORUS LEVEL 2020-03-06 06:28:00 Amor Barnhart MD URIC ACID 2020-03-06 06:28:00 Amor Barnhart MD POTASSIUM VENOUS 2020-03-06 06:28:00 Amor Barnhart MD RETICULOCYTE COUNT 2020-03-06 06:28:00 Alea Gray MD Young rson AUTOMATED Lucille CALCIUM IONIZED, VENOUS 2020-03-06 06:28:00 Amor Barnhart MDrson GLUCOSE LEVEL 2020-03-06 06:28:00 Amor Barnhart MD BLOOD UREA NITROGEN 2020-03-06 06:28:00 Amor Barnhart MD Bill son ELECTROLYTE PANEL 2020-03-06 06:28:00 Amor Barnhart MDo n SERUM CREATININE 2020-03-06 06:28:00 Amor Barnhart MD .GLOMERULAR FILTRATION RATE 2020-03-06 06:28:00 Amor Barnhart MD Results CBC 2020-03-06 06:28:00 Amor Barnhart MD MANUAL DIFFERENTIAL 2020-03-06 06:28:00 Amor Barnhart MD Bill son ALBUMIN LEVEL 2020-03-06 06:28:00 Amor Barnhart MD ALKALINE PHOSPHATASE 2020-03-06 06:28:00 Amor Barnhart MD Young rson ALANINE AMINOTRANSFERASE 2020-03-06 06:28:00 Amor Barnhart MD ASPARTATE AMINOTRANSFERASE 2020-03-06 06:28:00 Amor Barnhart TOTAL PROTEIN 2020-03-06 06:28:00 Amor Barnhart MD FRACTIONATED BILIRUBIN 2020-03-06 06:28:[address] CHEST WO CONTRAST 2020-03-06 02:47:43 Rafael Anderson MDrson OSCILLATORY PEP 2020-03-06 02:00:22 Alea Gray MD BASIC METABOLIC PANEL, 2020-03-05 23:48:00 Amor Barnhart MDson CALCIUM IONIZED CALCIUM LEVEL TOTAL 2020-03-05 23:48:00 Amor Barnhart MD Bill son COMPLETE BLOOD COUNT W/ 2020-03-05 23:48:00 Amor Barnhart MDon DIFFERENTIAL LACTATE DEHYDROGENASE 2020-03-05 23:48:00 Amor Barnhart MD And erson MAGNESIUM LEVEL 2020-03-05 23:48:00 Amor Barnhart MD PHOSPHORUS LEVEL 2020-03-05 23:48:00 Amor Barnhart MD URIC ACID 2020-03-05 23:48:00 Amor Barnhart MD POTASSIUM VENOUS 2020-03-05 23:48:00 Amor Barnhart MD HP FC FLOW CYTOMETRY BLOOD 2020-03-05 23:48:00 Mariel Mendiola MD COLLECTION HP MOLECULAR BLOOD 2020-03-05 23:48:00 Mariel Mendiola MD Bill son COLLECTION GLUCOSE LEVEL 2020-03-05 23:48:00 Amor Barnhart MD BLOOD UREA NITROGEN 2020-03-05 23:48:00 Amor Barnhart MD Bill son ELECTROLYTE PANEL 2020-03-05 23:48:00 Amor Barnhart MD SERUM CREATININE 2020-03-05 23:48:00 Amor Barnhart MD .GLOMERULAR FILTRATION RATE 2020-03-05 23:48:00 Amor Barnhart MD CALCIUM IONIZED, VENOUS 2020-03-05 23:48:00 Amor Barnhart MD nderson Results CBC 2020-03-05 23:48:00 Amor Barnhart MD MANUAL DIFFERENTIAL 2020-03-05 23:48:00 Amor Barnhart MD Bill son HP FC RATIO 2020-03-05 23:48:00 Mariel Mendiola MD HP [id number] SEQUENCING 2020-03-05 23:48:00 Mariel Mendiola MD derson ANALYSIS INTERPRETATION AND REPORT HP CG CHROMOSOME ANALYSIS 2020-03-05 23:48:00 Mariel Mendiola INTERPRETATION AND REPORT HP CG CLL FISH PANEL 2020-03-05 23:48:00 Mariel Mendiola MD And erson INTERPRETATION AND REPORT HP ENDLYMPHOMA MUTATION 2020-03-05 23:48:00 Mariel Mendiola MD ASSAY BY NGS V1 HP SH SEQUENCING 2020-03-05 23:48:00 Mariel Mendiola MD Young rson ANALYSIS INTERPRETATION AND REPORT HP CLL ACGH ANALYSIS 2020-03-05 23:48:00 Mariel Mendiola MD INTERPRETATION AND REPORT POC GLUCOSE SCREEN 2020-03-05 23:28:00 MD Isra Tang on Mily OSCILLATORY PEP 2020-03-05 22:00:13 Alea Gray MD ECHOCARDIOGRAM 2D COMPLETE 2020-03-05 19:00:09 Amor Barnhart POC GLUCOSE SCREEN 2020-03-05 18:21:00 MD Isra Tang on Mily OSCILLATORY PEP 2020-03-05 18:00:20 lAea Gray MD BASIC METABOLIC PANEL, 2020-03-05 17:22:00 Amor Barnhart MD CALCIUM IONIZED CALCIUM LEVEL TOTAL 2020-03-05 17:22:00 Amor Barnhart MD Bill son COMPLETE BLOOD COUNT W/ 2020-03-05 17:22:00 Amor Barnhart MD nderson DIFFERENTIAL LACTATE DEHYDROGENASE 2020-03-05 17:22:00 Amor Barnhart MD And erson MAGNESIUM LEVEL 2020-03-05 17:22:00 Amor Barnhart MD PHOSPHORUS LEVEL 2020-03-05 17:22:00 Amor Barnhart MD URIC ACID 2020-03-05 17:22:00 Amor Barnhart MD POTASSIUM VENOUS 2020-03-05 17:22:00 Amor Barnhart MD GLUCOSE LEVEL 2020-03-05 17:22:00 Amor Barnhart MD BLOOD UREA NITROGEN 2020-03-05 17:22:00 Amor Barnhart MD Bill son ELECTROLYTE PANEL 2020-03-05 17:22:00 Amor Barnhart MD SERUM CREATININE 2020-03-05 17:22:00 Amor Barnhart MD .GLOMERULAR FILTRATION RATE 2020-03-05 17:22:00 Amor Barnhart MD CALCIUM IONIZED, VENOUS 2020-03-05 17:22:00 Amor Barnhart MD nderson Results CBC 2020-03-05 17:22:00 Amor Barnhart MD MANUAL DIFFERENTIAL 2020-03-05 17:22:00 Amor Barnhart MD Bill son K NOTE 2020-03-05 17:22:00 Amor Barnhart MD OSCILLATORY PEP 2020-03-05 14:00:15 Alea Gray MD BASIC METABOLIC PANEL, 2020-03-05 12:19:00 Amor Barnhart MD CALCIUM IONIZED CALCIUM LEVEL TOTAL 2020-03-05 12:19:00 Amor Barnhart MD Bill son COMPLETE BLOOD COUNT W/ 2020-03-05 12:19:00 Amor Barnhart MD nderson DIFFERENTIAL LACTATE DEHYDROGENASE 2020-03-05 12:19:00 Amor Barnhart MD And erson MAGNESIUM LEVEL 2020-03-05 12:19:00 Amor Barnhart MD PHOSPHORUS LEVEL 2020-03-05 12:19:00 Amor Barnhart MD URIC ACID 2020-03-05 12:19:00 Amor Barnhart MD GLUCOSE LEVEL 2020-03-05 12:19:00 Amor Barnhart MD BLOOD UREA NITROGEN 2020-03-05 12:19:00 Amor Barnhart MD Bill son ELECTROLYTE PANEL 2020-03-05 12:19:00 [facility] 2020-03-05 12:19:00 Amor Barnhart MD .GLOMERULAR FILTRATION RATE 2020-03-05 12:19:00 Amor Barnhart MD CALCIUM IONIZED, VENOUS 2020-03-05 12:19:00 Amor Barnhart MD nderson Results CBC 2020-03-05 12:19:00 Amor Barnhart MD MANUAL DIFFERENTIAL 2020-03-05 12:19:00 Amor Barnhart MD Bill son POTASSIUM VENOUS 2020-03-05 12:19:00 Amor Barnhart MD K NOTE 2020-03-05 12:19:00 Amor Barnhart MD RETICULOCYTE COUNT 2020-03-05 07:50:00 Alea Gray MD Young rson AUTOMATED Lucille PROTHROMBIN TIME 2020-03-05 07:50:00 Amor Barnhart MD PARTIAL THROMBOPLASTIN TIME 2020-03-05 07:50:00 Amor Barnhart MD LACTIC ACID, VENOUS 2020-03-05 07:50:00 Amor Barnhart MD Bill son BASIC METABOLIC PANEL, 2020-03-05 07:50:00 Amor Barnhart MD derson CALCIUM IONIZED CALCIUM LEVEL TOTAL 2020-03-05 07:50:00 Amor Barnhart MD Bill son COMPLETE BLOOD COUNT W/ 2020-03-05 07:50:00 Amor Barnhart MDrson DIFFERENTIAL LACTATE DEHYDROGENASE 2020-03-05 07:50:00 Amor Barnhart MD And erson MAGNESIUM LEVEL 2020-03-05 07:50:00 Amor Barnhart MD PHOSPHORUS LEVEL 2020-03-05 07:50:00 Amor Barnhart MD POTASSIUM VENOUS 2020-03-05 07:50:00 Amor Barnhart MD URIC ACID 2020-03-05 07:50:00 Amor Barnhart MD CALCIUM IONIZED, VENOUS 2020-03-05 07:50:00 Amor Barnhart MD nderson GLUCOSE LEVEL 2020-03-05 07:50:00 Amor Barnhart MD BLOOD UREA NITROGEN 2020-03-05 07:50:00 Amor Barnhart MD Bill son ELECTROLYTE PANEL 2020-03-05 07:50:00 Amor Barnhart MDo n SERUM CREATININE 2020-03-05 07:50:00 Amor Barnhart MD .GLOMERULAR FILTRATION RATE 2020-03-05 07:50:00 Amor Barnhart MD Results CBC 2020-03-05 07:50:00 Amor Barnhart MD MANUAL DIFFERENTIAL 2020-03-05 07:50:00 Amor Barnhart MD Bill son ALBUMIN LEVEL 2020-03-05 07:50:00 Amor Barnhart MD ALKALINE PHOSPHATASE 2020-03-05 07:50:00 Amor Barnhart MD Young rson ALANINE AMINOTRANSFERASE 2020-03-05 07:50:00 Amor Barnhart MD ASPARTATE AMINOTRANSFERASE 2020-03-05 07:50:00 Amor Barnhart TOTAL PROTEIN 2020-03-05 07:50:00 Amor Barnhart MD FRACTIONATED BILIRUBIN 2020-03-05 07:50:00 Amor Barnhart MDson K NOTE 2020-03-05 07:50:00 Amor Barnhart MD POC ARTERIAL BLOOD GAS 2020-03-05 03:19:00 MD Shelby Tang POC CHEM 8 2020-03-05 03:14:00 MD Brain Tang BASIC METABOLIC PANEL, 2020-03-05 03:04:00 Lucrecia Lockett MD CALCIUM IONIZED PHOSPHORUS LEVEL 2020-03-05 03:04:00 Lucrecia Lockett MD on POTASSIUM VENOUS 2020-03-05 03:04:00 Lucrecia Lockett MD on GLUCOSE LEVEL 2020-03-05 03:04:00 Lucrecia Lockett MD ELECTROLYTE PANEL 2020-03-05 03:04:00 Lucrecia Lockett MD Bill son SERUM CREATININE 2020-03-05 03:04:00 Lucrecia Lockett MD on .GLOMERULAR FILTRATION RATE 2020-03-05 03:04:00 Lucrecia Lockett MD CALCIUM IONIZED, VENOUS 2020-03-05 03:04:00 Lucrecia Lockett MD K NOTE 2020-03-05 03:04:00 Lucrecia Lockett MD OSCILLATORY PEP 2020-03-05 02:00:25 Alea Gray MDbeth OSCILLATORY PEP 2020-03-05 01:46:28 Alea Gray MD MANUAL CONFIRM ABORH 2020-03-05 01:32:00 MD Clyde Youngdanny Minor ANTIBODY SCREEN MANUAL 2020-03-05 01:32:00 MD Shelby Tang CLOT EXPIRATION DATE 2020-03-05 01:32:00 MD Young Tang TMP INTERPRETATION ANTIBODY 2020-03-05 01:32:00 MD Brain Tang IDENTIFICATION Mily HAPTOGLOBIN 2020-03-05 01:20:00 Rafael Anderson MD on DIRECT ANTIGLOBULIN TEST 2020-03-05 01:20:00 Rafael Anderson MD RETICULOCYTE COUNT 2020-03-05 01:20:00 Rafael Anderson MD And erson AUTOMATED LACTIC ACID, VENOUS 2020-03-05 01:20:00 Rafael Anderson MD BASIC METABOLIC PANEL, 2020-03-05 01:20:00 Rafael Anderson MD CALCIUM IONIZED MAGNESIUM LEVEL 2020-03-05 01:20:00 Rafael Anderson MD on PARTIAL THROMBOPLASTIN TIME 2020-03-05 01:20:00 Lesvia Anderson MD PHOSPHORUS LEVEL 2020-03-05 01:20:00 Rafael Anderson MD Bill kacey PROTHROMBIN TIME 2020-03-05 01:20:00 Rafael Anderson MD Bill erazo COMPLETE BLOOD COUNT W/ 2020-03-05 01:20:00 Rafael Anderson DIFFERENTIAL GLUCOSE LEVEL 2020-03-05 01:20:00 Rafael Anderson MD on BLOOD UREA NITROGEN 2020-03-05 01:20:00 Rafael Anderson MD ELECTROLYTE PANEL 2020-03-05 01:20:00 Rafael Anderson MD rson SERUM CREATININE 2020-03-05 01:20:00 Rafael Anderson MD Bill erazo .GLOMERULAR FILTRATION RATE 2020-03-05 01:20:00 Lesvia Anderson MD CALCIUM IONIZED, VENOUS 2020-03-05 01:20:00 Rafael Anderson Results CBC 2020-03-05 01:20:00 Rafael Anderson MD on MANUAL DIFFERENTIAL 2020-03-05 01:20:00 Rafael Anderson MDson K NOTE 2020-03-05 01:20:00 Rafael Anderson MD on ELUATE ANTIBODY SCREEN 2020-03-05 01:20:00 MD Shelby Tang TMP INTERPRETATION ELUATE 2020-03-05 01:20:00 MD Brain Tang Mily IMMUNOGLOBULIN G SERUM 2020-03-04 23:10:00 Didier Calix MD PROTEIN ELECTROPHORESIS, 2020-03-04 23:10:00 Didier Calix MD SERUM THYROXINE 2020-03-04 23:10:00 Didier Calix MD on THYROID STIMULATING HORMONE 2020-03-04 23:10:00 Didier Calix MD BETA 2 MICROGLOBULIN 2020-03-04 23:10:00 Didier Calix MD nderson HAPTOGLOBIN 2020-03-04 23:10:00 Didier Calix MD on RETICULOCYTE COUNT 2020-03-04 23:10:00 Didier Calix MD And erson AUTOMATED DIRECT ANTIGLOBULIN TEST 2020-03-04 23:10:00 Didier Calix MD HEPATITIS B CORE ANTIBODY 2020-03-04 23:10:00 Didier Calix MD HEPATITIS B SURFACE 2020-03-04 23:10:00 Didier Calix MD An derson ANTIGEN, SERUM HEPATITIS C VIRUS RNA 2020-03-04 23:10:00 Didier Calix MD DETECT/QUANT, SERUM HC HIV 1/2 AG AND AB 4TH 2020-03-04 23:10:00 Didier Calix MD GEN PERIPHERAL SMEAR FOR BONE 2020-03-04 23:10:00 Didier Calix MD MARROW HP FC FLOW CYTOMETRY BLOOD 2020-03-04 23:10:00 Didier Calix MD COLLECTION HP MOLECULAR BLOOD 2020-03-04 23:10:00 Didier Calix MD And erson COLLECTION POTASSIUM LEVEL 2020-03-04 23:10:00 Peter Gann MD ASPARTATE AMINOTRANSFERASE 2020-03-04 23:10:00 Peter Gann LACTATE DEHYDROGENASE 2020-03-04 23:10:00 Peter Gann MD And erson HC REF HEPATITIS BC AB, IGG 2020-03-04 23:10:00 Didier Calix MD & IGM HEPATITIS B SURFACE AG 2020-03-04 23:10:00 Didier Calix MD W/CONFIRM K NOTE 2020-03-04 23:10:00 Peter Gann MD HP CG CHROMOSOME ANALYSIS 2020-03-04 23:10:00 Didier Calix MD INTERPRETATION AND REPORT HP CG CLL FISH PANEL 2020-03-04 23:10:00 Didier Calix MD INTERPRETATION AND REPORT IMMUNOFIXATION 2020-03-04 23:10:00 Didier Calix MD on ELECTROPHORESIS TMP HIV 1/2 AG&AB PATH 2020-03-04 23:10:00 Didier Calix MD INTERP HP FC LYMPHOMA B 2020-03-04 23:10:00 Didier Calix MD Bill son INTERPRETATION AND REPORT XR CHEST 1 VW 2020-03-04 20:50:55 Peter Gann MD COMPLETE BLOOD COUNT W/ 2020-03-04 20:34:00 Peter Gann MDrson DIFFERENTIAL COMPREHENSIVE METABOLIC 2020-03-04 20:34:00 Peter Gann MD nderson PANEL MAGNESIUM LEVEL 2020-03-04 20:34:00 Peter Gann MD PHOSPHORUS LEVEL 2020-03-04 20:34:00 Peter Gann MD PROTHROMBIN TIME 2020-03-04 20:34:00 Peter Gann MD PARTIAL THROMBOPLASTIN TIME 2020-03-04 20:34:00 Peter Gann MD LACTATE DEHYDROGENASE 2020-03-04 20:34:00 Peter Gann MD And ers URIC ACID 2020-03-04 20:34:00 Peter Gann MD Results CBC 2020-03-04 20:34:00 Peter Gann MD MANUAL DIFFERENTIAL 2020-03-04 20:34:00 [facility] 2020-03-04 20:34:00 Peter Gann MD BLOOD UREA NITROGEN 2020-03-04 20:34:00 Peter Gann MD Bill son ELECTROLYTE PANEL 2020-03-04 20:34:00 Peter Gann MD [facility] SERUM CREATININE 2020-03-04 20:34:00 Peter Gann MD .GLOMERULAR FILTRATION RATE 2020-03-04 20:34:00 Peter Gann MD CALCIUM LEVEL TOTAL 2020-03-04 20:34:00 Peter Gann MD Bill son ALBUMIN LEVEL 2020-03-04 20:34:00 Peter Gann MD ALKALINE PHOSPHATASE 2020-03-04 20:34:00 Peter Gann MD Young rson ALANINE AMINOTRANSFERASE 2020-03-04 20:34:00 Peter Gann MD ASPARTATE AMINOTRANSFERASE 2020-03-04 20:34:00 Peter Gann TOTAL PROTEIN 2020-03-04 20:34:00 Peter Gann MD FRACTIONATED BILIRUBIN 2020-03-04 20:34:00 Peter Gann MD derson K NOTE 2020-03-04 20:34:00 Peter Gann MD INFLUENZA A/B + COVID-19 2020-03-04 20:02:00 Peter Gann MD ASYMPTOMATIC-L EKG, 12-LEAD (PORTABLE) 2020-03-04 00:00:00 Peter Gann MD nderson OSI CHEST 2020-02-29 05:25:25 Amor Barnhart MD POCT-ACT 2020 11:24:00 [facility] ECG 12-LEAD 2020 10:50:42 Vane [facility] ANGIOGRAM,CORONARY 2020 10:04:00 [facility] CARDIAC CATH REPORT - SCAN 2020 00:00:00 ProviderJuan A [facility] SARS-COV2/RT-PCR ([facility] & 2020-01-03 10:25:00 [facility] - REF LABS) [facility] POCT-GLUCOSE METER 2019-12-19 07:18:00 [facility] BASIC METABOLIC PANEL (7) 2019-12-19 04:49:00 [facility] MAGNESIUM 2019-12-19 04:49:00 Xiao [facility] PHOSPHORUS 2019-12-19 04:49:00 [facility] CBC (HEMOGRAM ONLY) 2019-12-19 04:49:00 Camacho Mills [facility] POCT-GLUCOSE METER 2019-12-18 21:00:00 [facility] POCT-GLUCOSE METER 2019-12-18 16:56:00 [facility] POCT-GLUCOSE METER 2019-12-18 11:16:00 [facility] ECG 12-LEAD 2019-12-18 08:29:14 Unknown, Hl7 [facility] POCT-GLUCOSE METER 2019-12-18 07:37:[address] [facility] SARS-COV2/RT-PCR ([facility] & 2019-12-18 05:39:00 Costre [facility] REF LABS) [facility] BASIC METABOLIC PANEL (7) 2019-12-18 05:24:00 Xiao [facility] MAGNESIUM 2019-12-18 05:24:00 Xiao [facility] PHOSPHORUS 2019-12-18 05:24:00 [facility] ([facility] ONLY) 2019-12-18 05:24:00 [facility] POCT-GLUCOSE METER 2019-12-17 21:25:[address] [facility] POCT-GLUCOSE METER 2019-12-17 16:03:00 [facility]SE METER 2019-12-17 11:59:00 [facility] POCT-GLUCOSE METER 2019-12-17 07:49:00 [facility] BASIC METABOLIC PANEL (7) 2019-12-17 05:11:00 Kalia Hagen [facility] MAGNESIUM 2019-12-17 05:11:00 Ageedi [facility] PHOSPHORUS 2019-12-17 05:11:00 [facility] CBC (HEMOGRAM ONLY) 2019-12-17 05:11:00 [facility] POCT-GLUCOSE METER 2019-12-16 21:16:00 [facility] POCT-GLUCOSE METER 2019-12-16 16:18:00 [facility] POCT-GLUCOSE METER 2019-12-16 12:02:00 [facility] POCT-GLUCOSE METER 2019-12-16 07:39:00 [facility] BASIC METABOLIC PANEL (7) 2019-12-16 05:13:00 ShamakanikaKalia byers [facility] MAGNESIUM 2019-12-16 05:13:00 Ageedi [facility] PHOSPHORUS 2019-12-16 05:13:00 Ageedi [facility] APTT 2019-12-16 05:13:00 [facility] CBC (HEMOGRAM ONLY) 2019-12-16 05:13:00 Renny [facility] POCT-GLUCOSE METER 2019-12-15 21:20:00 [facility] APTT 2019-12-15 04:14:00 [facility]OLIC PANEL (7) 2019-12-15 04:10:00 Juan Lawson [facility] MAGNESIUM 2019-12-15 04:10:00 [facility] PHOS[facility]US 2019-12-15 04:10:00 Renny [facility] CBC (HEMOGRAM ONLY) 2019-12-15 04:09:00 Juan Lawson [facility] PREPARE RBC 2019-12-14 23:54:00 Oneil [facility] POCT-GLUCOSE METER 2019-12-14 22:34:00 [facility] APTT 2019-12-14 21:01:00 Efrain Barajas [facility] POCT-GLUCOSE METER 2019-12-14 18:05:00 [facility] APTT 2019-12-14 14:42:00 Juan Lawson [facility] BASIC METABOLIC PANEL (7) 2019-12-14 13:58:00 Joaquina TariqCamacho [facility] MAGNESIUM 2019-12-14 13:58:00 Camacho Mills [facility] POCT-GLUCOSE METER 2019-12-14 13:47:[address] [facility] POCT-GLUCOSE METER 2019-12-14 09:00:[address] [facility] APTT 2019-12-14 07:52:00 Renny [facility] XR CHEST 1 VIEW 2019-12-14 07:50:00 Joaquina Tariq [facility] PORTABLE/BEDSIDE [facility] BLOOD GAS, ARTERIAL 2019-12-14 05:07:00 [facility] 2019-12-14 05:07:00 Renny [facility] CBC (HEMOGRAM ONLY) 2019-12-14 03:28:[address] [facility] BASIC METABOLIC PANEL (7) 2019-12-14 03:28:00 Juan Lawson [facility] MAGNESIUM 2019-12-14 03:28:00 Renny [facility] PHOSPHORUS 2019-12-14 03:28:00 Renny [facility] POCT-GLUCOSE METER 2019-12-13 23:24:[address] [facility] XR CHEST 1 VIEW 2019-12-13 23:20:00 [facility]ABLE[facility]BEDSIDE [facility] Center BLOOD GAS, ARTERIAL 2019-12-13 23:12:00 [facility] CALCIUM, IONIZED 2019-12-13 23:12:00 [facility] CBC (HEMOGRAM ONLY) 2019-12-13 23:10:00 [facility] BASIC METABOLIC PANEL (7) 2019-12-13 23:10:00 Kalia Hagen [facility] APTT 2019-12-13 23:10:00 Xiao [facility] PROTHROMBIN TIME/INR 2019-12-13 23:10:00 Xiao [facility] PHOSPHORUS 2019-12-13 23:10:00 Agejose a [facility] MAGNESIUM 2019-12-13 23:10:00 Xiao [facility] POCT-ACT 2019-12-13 21:38:00 [facility] POCT-ACT 2019-12-13 20:51:00 [facility] BLOOD GAS, ARTERIAL 2019-12-13 20:48:35 [facility], [facility]ED 2019-12-13 20:48:35 Javier [facility] SODIUM NA-STAT LAB 2019-12-13 20:48:[address] [facility] POTASSIUM-STAT LAB 2019-12-13 20:48:[address] [facility] GLUCOSE-STAT LAB 2019-12-13 20:48:35 [facility] (H&H) - STAT LAB 2019-12-13 20:48:35 Javier [facility] POCT-ACT 2019-12-13 20:17:00 [facility] TRANSFUSE LEUKO-REDUCED RED 2019-12-13 19:48:17 [facility] TRANSFUSE LEUKO-REDUCED RED 2019-12-13 19:46:32 Javier [facility] POCT-ACT 2019-12-13 19:37:00 [facility] HGB/HCT (H&H) - STAT LAB 2019-12-13 19:31:54 Javier [facility] BLOOD GAS, ARTERIAL 2019-12-13 19:31:54 Herrera [facility] CALCIUM, IONIZED 2019-12-13 19:31:54 Javier [facility] SODIUM NA-STAT LAB 2019-12-13 19:31:54 Javier [facility] POTASSIUM-STAT LAB 2019-12-13 19:31:54 Javier [facility] GLUCOSE-STAT LAB 2019-12-13 19:31:54 Javier [facility] POCT-ACT 2019-12-13 18:54:00 Hanh [facility] BLOOD GAS, ARTERIAL 2019-12-13 18:18:55 [facility] CALCIUM, IONIZED 2019-12-13 18:18:55 [facility] LACTIC ACID, ARTERIAL 2019-12-13 18:18:55 [facility] SODIUM NA-STAT LAB 2019-12-13 18:18:55 [facility] POTASSIUM-STAT LAB 2019-12-13 18:18:55 [facility] GLUCOSE-STAT LAB 2019-12-13 18:18:55 [facility] HGB/HCT (H&H) - STAT LAB 2019-12-13 18:18:55 [facility]GIO[facility]-LOWER EXTREMITY 2019-12-13 17:10:00 [facility] THROMBECTOMY-LOWER 2019-12-13 17:10:00 [facility] HC ARTERIAL DOPPLER LEGS 2019-12-13 12:51:00 Camacho [place] [facility] HC ARTERIAL(RAFIQ W 2019-12-13 12:51:00 Hanh [facility] es - DOPPLER)ONLY [facility] URINE CULTURE 2019-12-13 11:33:00 [place] [facility] URINALYSIS W/ REFLEX URINE 2019-12-13 11:33:00 [place] [facility] BASIC METABOLIC PANEL (7) 2019-12-13 11:31:00 Joaquina TariqCamacho [facility] CBC W/PLT COUNT & AUTO 2019-12-13 11:31:00 [place] [facility] DIFFERENTIAL [facility] MAGNESIUM 2019-12-13 11:31:00 [place] [facility] PHOSPHORUS 2019-12-13 11:31:00 [facility] PROTHROMBIN TIME/INR 2019-12-13 11:31:00 [facility] APTT 2019-12-13 11:31:00 [facility] XR CHEST 1 VIEW 2019-12-13 11:20:00 Gene [facility] PORTABLE/BEDSIDE [facility] POCT-ACT 2019-12-13 10:38:00 [facility] POCT-ACT 2019-12-13 09:24:00 [facility] POCT-ACT 2019-12-13 09:10:00 [facility] BLOOD GAS, ARTERIAL 2019-12-13 08:13:27 [facility] CALCIUM, IONIZED 2019-12-13 08:13:27 [facility] SODIUM NA-STAT LAB 2019-12-13 08:13:27 Stan [facility] POTASSIUM-STAT LAB 2019-12-13 08:13:27 [facility] GLU[facility]SE-STAT LAB 2019-12-13 08:13:27 [facility] (H&H) - STAT LAB 2019-12-13 08:13:27 Isidoro Pierce [facility] REPAIR,EVAR-ENDOVASCULAR 2019-12-13 07:03:00 [facility] AORTIC ANEURYSM [facility] BASIC METABOLIC PANEL (7) 2019-12-13 04:22:00 [facility] HEMOGLOBIN A1C 2019-12-13 04:22:00 Kerry Casey [facility] CBC W/PLT+MANUAL DIFF 2019-12-13 04:22:00 Xiao [facility] MAGNESIUM 2019-12-13 04:22:00 [facility]OS[facility]ORUS 2019-12-13 04:22:00 [facility] CBC WITH PLATELET COUNT + 2019-12-13 04:22:00 [facility] MANUAL DIFF [facility] (CELLAVISION MANUAL DIFF) 2019-12-13 04:22:00 Sanjana [facility] PREPARE RBC 2019-12-12 22:21:00 [facility] POCT-GLUCOSE METER 2019-12-12 21:26:00 [facility] PROTHROMBIN TIME/INR 2019-12-12 18:32:00 [facility] POCT-GLUCOSE METER 2019-12-12 16:40:00 [facility] BASIC METABOLIC PANEL (7) 2019-12-12 16:27:00 Kerry [facility] VASCULAR DIAGRAM -SCAN 2019-12-12 00:00:00 Natali [facility] ANTIBODY IDENTIFICATION 2019-12-11 16:23:00 Kerry [facility] HC CAROTID DOPPLER WINTER 2019-12-11 13:52:00 Kerry [facility] XR CHEST 2 VIEWS 2019-12-11 12:33:00 Kerry [facility] ECG 12-LEAD 2019-12-11 12:01:53 Lo, [facility] SARS-COV2/RT-PCR ([facility] & 2019-12-11 11:49:00 Hanh [facility] - REF LABS) [facility] CBC W/PLT COUNT & AUTO 2019-12-11 10:38:00 Lo, [facility] BASIC METABOLIC PANEL (7) 2019-12-11 10:38:00 Lo, [facility] HC LAB HIV-1 AG W/HIV-1&2 2019-12-11 10:38:00 Lo, [facility] ALBUMIN 2019-12-11 10:38:00 Lo, [facility] ALKALINE PHOSPHATASE 2019-12-11 10:38:00 Lo, [facility] BILIRUBIN, ADULT TOTAL 2019-12-11 10:38:00 Lo, [facility] BILIRUBIN, DIRECT 2019-12-11 10:38:00 Lo, [facility] AST (SGOT) 2019-12-11 10:38:00 Lo, [facility] ALT (SGPT) 2019-12-11 10:38:00 Lo, [facility] PROTEIN, TOTAL 2019-12-11 10:38:00 Lo, [facility] PROTHROMBIN TIME/INR 2019-12-11 10:38:00 Lo, [facility] APTT 2019-12-11 10:38:00 Lo, [facility] RETICULOCYTE COUNT 2019-12-11 10:38:00 Lo, [facility] HEPATITIS B PANEL 2019-12-11 10:38:00 Lo, [facility] AMYLASE 2019-12-11 10:38:00 Lo, [facility] LIPASE 2019-12-11 10:38:00 Lo, [facility] HEPATITIS C ANTIBODY 2019-12-11 10:38:00 Lo, [facility] URINALYSIS W/ MICROSCOPIC 2019-12-11 10:38:00 Lo, [facility] LACTATE DEHYDROGENASE (LDH) 2019-12-11 10:38:00 Lo, [facility] HEMOGLOBIN A1C 2019-12-11 10:38:00 Radha Osorio [facility] TYPE AND SCREEN, AUTOMATED 2019-12-11 10:38:00 Lo, [facility] DIRECT AHG (JUAN J)/DIRECT 2019-12-11 10:38:00 Lo, [facility] (CELLAVISION MANUAL DIFF) 2019-12-11 10:38:00 Lo, [facility] SPIROMETRY 2019-11-21 10:30:00 Lo, [facility] CTA ABDOMEN & PELVIS 2019-11-05 08:01:00 Lo, [facility] CTA CHEST 2019-11-05 08:01:00 Lo, [facility] POCT-CREATININE 2019-11-05 07:25:00 Lo, [facility] Bladder irrigation, simple, 2017-05-28 16:15:00 [facility] lavage and/or instillation Bladder operation [facility] nn Drainage [facility] Lymph node operation [facility] Plan of Care Planned Activity Planned Date Details Comments Source Future Scheduled 2020-10-07 INFLUENZA VACCINE (#1) [facility] 00:[facility]:00 [code = INFLUENZA Medical Ce nter VACCINE (#1)] Future Scheduled 2020-09-06 INFL[place] VACCINE [place] [facility] 00:[facility]:00 [code = INFLUENZA VACCINE] Future Scheduled 2020-02-[address] [facility] - Test 00:00:00 (12+) [code = Medical Center DEPRESSION SCREENING (12+)] Future Scheduled 2010-12-[address] [facility] Test 00:00:00 WELLNESS (YEAR 2 or Medical Center FIRST YEAR if no IPPE) [code = MEDICARE ANNUAL WELLNESS (YEAR 2 or FIRST YEAR if no IPPE)] Future Scheduled 2010 PNEUMOCOCCAL 65+ YRS [facility] - Test 00:00:00 (1 of 1 - Medical Center [id number]) [code = PNEUMOCOCCAL 65+ YRS (1 of 1 - [id number])] Future Scheduled 1995 COLONOSCOPY SCREENING [place] [facility] 00:00:00 [code = COLONOSCOPY SCREENING] Future Scheduled 1995 SHINGLES VACCINES (#1) [place] [facility] 00:00:00 [code = SHINGLES VACCINES (#1)] Future Scheduled 1995 SHINGLES VACCINES ([address] [facility] - Test 00:00:00 of 2) [code = SHINGLES Medic al Center VACCINES (1 of 2)] Future Scheduled 1964-01-07 DTAP/TDAP/TD VACCINES [facility] Test 00:00:00 (1 - Tdap) [code = Medical C enter DTAP/TDAP/TD VACCINES (1 - Tdap)] Future Scheduled 1963 Hepatitis C screening [place] [facility] 00:00:00 (procedure) [code = 306020717] Future Scheduled 1957 COVID-19 VACCINE (1) [place] [facility] 00:00:00 [code = COVID-19 VACCINE (1)] Future Scheduled 1957 COVID-19 VACCINE (1) [facility] - Test 00:00:00 [code = COVID-[address] VACCINE (1)] Future Scheduled 1951 65+ PNEUMOCOCCAL [facility] Test 00:00:00 VACCINE (1 of 2 - PPSV23) [code = 65+ PNEUMOCOCCAL VACCINE (1 of 2 - PPSV23)] Future Scheduled [address] [facility] - Test 00:00:00 [facility] colon (procedure) [code = 930091810] Encounters Start End Encounter Admission Attending Care Care Encounter Source Date/Time Date/Time Type Type Clinicians Facility Department ID 2020-05-28 Outpatient SYSTEM, [facility] [id number] 08:28:24 PROVIDER Isra lay 2020-03-19 Inpatient ER BRONWYN, MDA MDA [id number] 22:58:49 AMOR lay 2020-03-13 Outpatient SYSTEM, MDA MDA [id number] 17:56:25 NATALI lay 2020-07-27 2020-07-27 Outpatient NEGAR AKERS, MDA MDA [id number] 15:00:00 23:59:00 APOLLO lay 2020-07-27 2020-07-27 Outpatient EL AKERS, MDA MDA [id number] 12:31:24 14:59:00 APOLLO lay 2020-06-10 2020-06-10 Outpatient EL MICHELLE, MDA MDA [id number] 16:45:28 23:59:00 APOLLO lay 2020-06-10 2020-06-10 Outpatient EL CLYDE, MDA MDA [id number] 13:00:00 16:44:00 MILY And erso n 2020-06-10 2020-06-10 Outpatient EL FERRAVERONICALI, MDA MDA [id number] 14:02:14 14:02:14 MILY And erso n 2020-05-23 2020-05-23 Outpatient [facility] ENCCLR ENCCLR [id number] ENCCLR 00:00:00 00:00:00 ADMISSION JOSEBLADE 2020-05-13 2020-05-15 Outpatient NEGAR AKERS, MDA MDA [id number] 13:41:54 07:24:30 APOLLO lay 2020-05-13 2020-05-13 Outpatient EL AKERS, MDA MDA [id number] 09:40:57 23:59:00 APOLLO lay 2020-05-13 2020-05-13 Outpatient EL FERRAVERONICALI, MDA MDA [id number] 10:10:36 12:14:50 MILY And erso n 2020-05-06 2020-05-06 Outpatient EL FERRAJOLI, MDA MDA [id number] 08:02:07 08:02:07 MILY And erso n 2020-04-20 2020-04-20 Outpatient EL AKERS, MDA MDA [id number] 13:00:00 23:59:00 APOLLO Isra lay 2020-04-20 2020-04-20 Outpatient EL CLYDE, MDA MDA [id number] 13:36:21 16:43:33 Willisdora lay 2020-03-04 2020-04-15 Inpatient ER CARMEN, MDA PM\\T\\R [id number] 12:58:00 16:06:00 REY lay 2020-04-15 2020-04-15 Inpatient EL CARMEN, MDA MDA [id number] 10:00:48 10:00:57 REY lay 2020-04-15 2020-04-15 Inpatient EL CARMEN, MDA MDA [id number] 09:30:13 10:00:51 REY lay 2020-04-15 2020-04-15 Inpatient EL CARMEN, MDA MDA [id number] 08:14:54 08:56:12 REY lay 2020-04-12 2020-04-12 Inpatient EL CARMEN, MDA MDA [id number] 07:56:52 08:38:28 REY lay 2020-04-03 2020-04-03 Inpatient ER MARY, MDA MDA [id number] 17:43:37 17:43:40 THUY Vidal collins lay 2020-03-21 2020-03-21 Inpatient ER WIERDA, MDA MDA [id number] MD 15:17:42 15:33:02 BEBE lay 2020-03-18 2020-03-18 Inpatient ER WIERDA, MDA MDA [id number] MD 05:05:18 05:57:57 BEBE lay 2020-03-12 2020-03-12 Inpatient ER WIERDA, MDA MDA [id number] MD 22:36:26 22:57:50 BEBE lay 2020-03-11 2020-03-11 Inpatient ER WIERDA, MDA MDA [id number] MD 08:41:48 09:19:31 BEBE lay 2020-03-06 2020-03-06 Inpatient ER KIKE ROSAS MDA [id number] 08:09:34 08:31:07 CALI john n 2020-03-05 2020-03-05 Inpatient ER KIKE TANG MDA [id number] 10:59:48 11:28:51 Willisdora lay 2019-12-26 2019-12-26 Office [place] [id number] 11:13:47 11:28:47 Visit [place] AMBULATOR [id number] Joaquin [place] [id number] 2018-10-16 2018-10-16 Orders Doctor BRYAN [id number] 00:00:00 00:00:00 Only Unassigned, AMADOR 350.1.13.10 [facility] [id number] [id number] 2018-09-10 2018-09-10 Orders Doctor BRYAN [id number] 00:00:00 00:00:00 Only Unassigned, AMADOR 350.1.13.10 [facility] 4.2.7.2.686 [id number] 2017-09-06 2017-09-07 Outpatient MHMISCHER MHMISCHER [id number] 13:27:00 23:59:59 13 2017-05-26 2017-05-29 Outpatient DARREN CarlsonSL MHSL [id number] 19:05:00 16:01:00 Chata Chowdhury 2017-03-15 2017-03-16 Outpatient MHMISCHER MHMISCHER [id number] 16:21:00 23:59:59 12 2017-02-13 2017-02-13 Outpatient Tj Alicia MHMISCHER MHMISCHER [id number] 08:45:00 08:45:00 Gisella 2017-02-13 2017-02-13 Outpatient Tj Alicia MHMISCHER MHMISCHER [id number] 08:45:00 08:45:00 Gisella 2017-02-13 2017-02-13 Outpatient Tj Alicia MHMISCHER MHMISCHER [id number] 08:45:00 08:45:00 Hwan 2017-01-16 2017-01-17 Outpatient MHMISCHER MHMISCHER [id number] 11:51:00 23:59:59 11 2017-01-03 2017-01-04 Outpatient MHMISCHER MHMISCHER [id number] 11:44:00 23:59:59 10 2017-01-02 2017-01-03 Outpatient MHMISCHER MHMISCHER [id number] 15:19:00 23:59:59 09 2016-12-28 2016-12-28 Outpatient Tj Alicia MHMISCHER MHMISCHER [id number] 08:00:00 23:59:59 an 2016-12-28 2016-12-28 Outpatient Azar [id number] 14:30:00 23:59:00 Rufina [id number] Ingrid [id number] 2016-12-26 2016-12-27 Outpatient MHMISCHER MHMISCHER [id number] 09:23:00 23:59:59 08 2016-12-23 2016-12-24 Outpatient MHMISCHER MHMISCHER [id number] 09:42:00 23:59:59 07 2016-09-22 2016-09-24 Outpatient Tj Alicia [facility] [id number] 16:11:00 11:45:00 Hwan 2016-08-11 2016-08-11 Outpatient Tj Alicia MHOIP MHOIP [id number] 16:55:00 23:59:00 Hwan 2016-07-20 2016-07-20 Outpatient Tj Alicia [facility] [id number] 10:41:00 23:59:00 Hwan 00 Results Test Description Test Time Test Comments Results Result Comments Source Beta 2 Microglobulin 2020-07-28 16:16:15 Test Item Value Reference Range Interpretation Comme nts Beta2 Microglob (test code = 5090) 3.7 mg/L 0.8-2.3 H AMRITA (test code = AMRITA) 07/27/20 Lab Interpretation (test code = 35634-3) Abnormal MD De La [id number] 16:16:14 Test Item Value Reference Range Interpretation Comments IgM (test code = 6023) 11 mg/dL 35-242 L AMRITA (test code = AMRITA) 07/27/20 Lab Interpretation (test code = Abnormal 07755-2) MD BennettJdieingcZrF7799-28-40 16:16:13 Test Item Value Reference Range Interpretation Comments IgG (test code = 6001) 317 mg/dL 610-1616 L AMRITA (test code = AMRITA) 07/27/20 Lab Interpretation (test code = Abnormal 75158-2) MD BennettMdddbeuuZmJ4423-98-55 16:16:12 Test Item Value Reference Range Interpretation Comments IgA (test code = 5992) 50 mg/dL 85-499 L AMRITA (test code = AMRITA) 07/27/20 Lab Interpretation (test code = Abnormal 33552-2) MD De La PazTMP Interpretation Antibody Screen [id number] 14:42:02 Test Item Value Reference Range Interpretation Comments TMP Auto Neg At the present ABSC Interp time, patient (test code = plasma shows no ____MICHAEL 7535) evidence of RBC Kira LEDESMAat ed by: alloantibodiesRoyal [place],Dictated Date/Time: 07.08 9:42 AM CDT Transcribed Juan J e/Time: 07.28.2020 9:42 AM CDTElectronical ly Signed By: MICHAEL ADAMS, on 07.28.2020 9:42 AM C MD De La PazAntibody [id number] 20:12:05 Test Item Value Reference Range Interpretation Comments ABSC. (test code = 890-4) Negative ABSC AMRITA (test code = AMRITA) 07/27/20 MD De La PazFhjocofyCYFTv1873-17-13 20:09:56 Test Item Value Reference Range Interpretation Comments ABORh. (test code = 882-1) A POS AMRITA (test code = AMRITA) 07/27/20 MD De La PazClot Expiration [id number] 20:09:51 Test Item Value Reference Range Interpretation Comments T & S Expiration (test code = 07/30/2020 5318) MD De La PazFractionated Mxdrllkgl9163-09-77 18:43:55 Test Item Value Reference Range Interpretation Comments Bili Total (test 0.4 mg/dL See_Comment Indocyanine Green (ICG) code = 5096) may cause false ly elevated biliru bin results. Total and direct bilirubin must not be measured from s amples containing indo cyanine green. False el evation of total bilirubin can be seen in patient s with IgG concentrations above 28 g/L. [Automate d message] The system Can[employer] generated this result transmitted ref erence range: <=1.2. T he reference range was not used to interpr et this result as normal/abnormal . Bili Direct (test <0.2 See_Comment Indocyanin e Green (ICG) code = 5094) may cause false ly elevated biliru bin results. Total and direct bilirubin must not be measured from s amples containing indo cyanine green. [Automat ed message] The sy stem which generated this result transmitted ref erence range: <=0.3 mg /dL. The reference range was not used to interpr et this result as normal/abnormal . Bili Indirect (test See Note 0.0-0.9 Unable t o calculate code = 5095) Indirect Biliru bin result due to some par ameters are outside rep ortable range AMRITA (test code = 07/27/20 AMRITA) MD De La PazGlomerular Filtration [id number] 18:43:54 Test Item Value Reference Range Interpretation Comments eGFR-AA (test code 74 See_Comment Normal eG FR: >= 60 = 8062) mL/min/1.73 m2N ote: The eGFR is calculated u sing the CKD-EPI equatio n. The eGFR declines with a ge. eGFR <60 mL/min/1.73 m2 is considered as "decreased". This equation should only be used for patients 18 and older. According to National [employer] on's Kidney Disease Outcome Quality Initiative (KDO QI) classification and 2012 Kidney Disease Improving Global Outcomes (KDIGO) Clinical Practi ce Guideline, the stage of CK D should be categorized bas ed on estimated GFR. Stage Description GFR mL/min/1.73 m21 Normal or high GFR >=902 Mildly decrease d GFR 60-893a Mildly to moderately decr eased GFR 45-593b Moderat elba to severely decrea sed GFR 30-444 Severely decreased GFR 15-295 Kidney failure < 15 [Automated mess age] The system which [facility] nerated this result transmit brina reference range: >=60 mL/ min/1.73 sq. m. The referenc e range was not used to int erpret this result as alma l/abnormal. eGFR-ALESSIA (test 64 See_Comment Normal eGFR: >= 60 code = 8063) mL/min/1.73 m2N ote: The eGFR is calculated u sing the CKD-EPI equatio n. The eGFR declines with a ge. eGFR <60 mL/min/1.73 m2 is considered as "decreased". This equation should only be used for patients 18 and older. According to e National Kidney Found[employer] on's Kidney Disease Outcome Quality Initiative (KDO QI) classification and 2012 Kidney Disease Improving Global Outcomes (KDIGO) Clinical Practi ce Guideline, the stage of CK D should be categorized bas ed on estimated GFR. Stage Description GFR mL/min/1.73 m21 Normal or high GFR >=902 Mildly decrease d GFR 60-893a Mildly to moderately decr eased GFR 45-593b Moderat elba to severely decrea sed GFR 30-444 Severely decreased GFR 15-295 Kidney failure < 15 [Automated mess age] The system which [facility] nerated this result transmit brina reference range: >=60 mL/ min/1.73 sq. m. The referenc e range was not used to int erpret this result as alma l/abnormal. AMRITA (test code = 07/27/20 AMRITA) MD De La PazMagnesium [id number] 18:43:53 Test Item Value Reference Range Interpretation Comments Magnesium (test code = 6359) 2.0 mg/dL 1.6-2.6 AMRITA (test code = AMRITA) 07/27/20 MD De La PazRblmxkgbWVM8718-81-05 18:43:50 Test Item Value Reference Range Interpretation Comments LDH (test code = 6111) 276 U/L 135-225 H Resul ts greater than 1651 U/L may no t be reliable due to matrix effect w ith extended diluti on as it exceeds the software technician s recommended l imit. Caution should be exercised when interpreting weiss ch values and done in conjunction wit h clinical contex t. AMRITA (test code = AMRITA) 07/27/20 Lab Interpretation (test Abnormal code = 41842-5) MD De La PazGlucose, [id number] 18:43:49 Test Item Value Reference Range Interpretation Comments Glucose Random (test 211 mg/dL 70-199 H Effecti ve 09/02/15, code = 9360) the glucose reference inter vals have been updat ed based on [place] an Diabetes Associ ation guidelines (Standards of Medical Care in Diabetes 2016. Diabetes Care 2 016; 39: S13-S22).Fa sting blood glucose:Normal: 70 99 mg/dLImpaire d fasting glucose (increased risk for diabetes or pre-diabetes): 100 125 mg/dLDiabet es mellitus: >/=1 26 mg/dL Random bl ood glucose:Normal: 70 199 mg/dLNote: Random glucose >100 mg/dL is associ ated with increased risk for diabetes AMRITA (test code = AMRITA) 07/27/20 Lab Interpretation (test Abnormal code = 67041-0) MD De La PazAlkaline [id number] 18:43:48 Test Item Value Reference Range Interpretation Comments Alk Phos (test code = 4768) 121 U/L 40-129 AMRITA (test code = AMRITA) 07/27/20 MD De La PazUric [id number] 18:43:47 Test Item Value Reference Range Interpretation Comments Uric Acid (test code = 7955) 6.6 mg/dL 3.4-7.0 AMRITA (test code = AMRITA) 07/27/20 MD De La PazAlbumin [id number] 18:43:46 Test Item Value Reference Range Interpretation Comments Albumin Lvl (test 4.4 See_Comment [Automate d message] The code = 4763) system which ge nerated this result tra nsmitted reference range : 3.5 - 5.2 gm/dL. The reference range was not u sed to interpret this result as normal/abnormal . AMRITA (test code = AMRITA) 07/27/20 MD De La PazTotal [id number] 18:43:45 Test Item Value Reference Range Interpretation Comments Total Protein (test code = 7649) 6.4 g/dL 6.4-8.3 AMRITA (test code = AMRITA) 07/27/20 MD De La PazAspartate [id number] 18:43:44 Test Item Value Reference Range Interpretation Comments AST (test code = 13 U/L See_Comment [Automated message] The 4731) system which ge nerated this result tra nsmitted reference range : <=40. The reference range was not used to interpr et this result as alma l/abnormal. AMRITA (test code = 07/27/20 AMRITA) MD De La PazPhosphorus [id number] 18:43:43 Test Item Value Reference Range Interpretation Comments Phosphorus (test code = 6817) 3.5 mg/dL 2.5-4.5 AMRITA (test code = AMRITA) 07/27/20 MD De La PazElectrolyte [id number] 18:43:42 Test Item Value Reference Range Interpretation Comments Sodium Lvl (test code 139 See_Comment [Auto mated message] The = 7313) system which ge nerated this result tra nsmitted reference range : 136 - 145 mEq/L. The reference range was not u sed to interpret this result as normal/abnormal . Potassium Lvl (test 3.6 See_Comment [Automa brina message] The code = 6854) system which ge nerated this result tra nsmitted reference range : 3.5 - 5.1 mEq/L. The reference range was not u sed to interpret this result as normal/abnormal . Chloride (test code = 103 See_Comment [Auto mated message] The 8610) system which ge nerated this result tra nsmitted reference range : 98 - 107 mEq/L. The reference range was not u sed to interpret this result as normal/abnormal . CO2 (test code = 5227) 28 See_Comment [Aut omated message] The system which ge nerated this result tra nsmitted reference range : 22 - 29 mEq/L. The refe rence range was not u sed to interpret this result as normal/abnormal . Anion Gap (test code = 8 See_Comment [Aut omated message] The 4433) system which ge nerated this result tra nsmitted reference range : 4 - 14 mEq/L. The refe rence range was not u sed to interpret this result as normal/abnormal . AMRITA (test code = AMRITA) 07/27/20 MD De La PazCalcium [id number] 18:43:41 Test Item Value Reference Range Interpretation Comments Calcium Lvl (test code = 5258) 9.7 mg/dL 8.4-10.2 AMRITA (test code = AMRITA) 07/27/20 MD De La Paz.Serum [id number] 18:43:40 Test Item Value Reference Range Interpretation Comments Creatinine (test code = 5399) 1.12 mg/dL 0.67-1.17 AMRITA (test code = AMRITA) 07/27/20 MD De La PazAlanine [id number] 18:43:39 Test Item Value Reference Range Interpretation Comments ALT (test code = 9 U/L See_Comment [Automated message] The 4627) system which ge nerated this result tra nsmitted reference range : <=41. The reference range was not used to interpr et this result as alma l/abnormal. AMRITA (test code = 07/27/20 AMRITA) MD De La [id number] 18:43:38 Test Item Value Reference Range Interpretation Comments BUN (test code = 5055) 16 mg/dL 6- AMRITA (test code = AMRITA) 07/27/20 MD De La PazDwbmzpzdXsykoosygodi2512-96-04 18:24:13 Test Item Value Reference Range Interpretation Comments Neutrophil % (test code = 84.0 % 42.0-66.0 H 6491) Lymphocyte % (test code = 7.6 % 24.0-44.0 L 6194) Monocyte % (test code = 4.8 % 2.0-7.0 6422) Eosinophil % (test code = 1.7 % 1.0-4.0 5520) Basophil % (test code = 0.9 % 0.0-1.0 5068) IGRE % (test code = 5958) 1.0 % 0.0-0.4 H IG RE % count includes Metamyelocytes, Myelocytes, and Promyelocytes. Neutrophil Abs (test code 6.40 K/uL 1.70-7.30 = 6492) Lymphocyte Abs (test code 0.58 K/uL 1.00-4.80 L = 6195) Monocyte Abs (test code = 0.37 K/uL 0.08-0.70 6423) Eosinophil Abs (test code 0.13 K/uL 0.04-0.40 = 5521) Basophil Abs (test code = 0.07 K/uL 0.00-0.10 5069) IG Abs (test code = 5954) 0.08 K/uL 0.00-0.04 H AMRITA (test code = AMRITA) 07/27/20 Lab Interpretation (test Abnormal code = 61281-2) MD De La PazReticulocyte Count, [id number] 18:24:11 Test Item Value Reference Range Interpretation Comments Retic Cnt Auto (test code = 7199) 1.6 % 0.5-1.5 H RETHE (test code = 6973) 32.3 pg 23.2-37.5 IRF (test code = 5989) 6.7 % 2.3-18.0 AMRITA (test code = AMRITA) 07/27/20 Lab Interpretation (test code = Abnormal 10415-6) MD De La Paz.[id number] 18:24:10 Test Item Value Reference Range Interpretation Comments WBC (test code = 8034) 7.6 K/uL 4.0-11.0 RBC (test code = 6932) 4.52 See_Comment [Aut omated message] The system Can[employer] generated this result transmitted ref erence range: 4.50 - 6 .00 M/uL. The refer ence range was not u sed to interpret this result as normal/abnor mal. Hgb (test code = 5898) 13.6 See_Comment L [Aut omated message] The system [employer] generated this result transmitted ref erence range: 14.0 - 1 8.0 gm/dL. The refe rence range was not u sed to interpret this result as normal/abnor mal. Hct (test code = 5860) 40.8 % 40.0-54.0 MCV (test code = 6222) 90 fL 82-98 MCH (test code = 6220) 30.1 pg 27.0-31.0 MCHC (test code = 6221) 33.3 See_Comment [Au tomated message] The system [employer] generated this result transmitted ref erence range: 31.0 - 3 6.0 gm/dL. The refe rence range was not u sed to interpret this result as normal/abnor mal. RDW-SD (test code = 47.4 fL 35.1-46.3 H 6972) RDW-CV (test code = 14.4 % 12.0-15.5 6971) Platelet count (test 253 K/uL 140-440 code = 6832) MPV (test code = 6282) 10.1 fL 4.0-10.4 INRBC (test code = 0.0 % See_Comment The INRBC (instrument 5974) NRBC) value ref lects the enumeration of nucleated red b lood cells contained in a 200uL sampleof whole blood analyzed by the instrument. Thi s value maydiffer from the NRBC value repo rted in a manual differential,wh ich is based on a 100 cell differential. [Automated mess age] The system [employer] h generated this result transmitted ref erence range: <=0.0. T he reference range was not used to int erpret this result as normal/abnormal . AMRITA (test code = AMRITA) 07/27/20 Lab Interpretation Abnormal (test code = 88233-4) MD De La PazCulture, [id number] 01:07:13 Test Item Value Reference Range Interpretation Comments Final Report (test No growth code = 8488) Path Review - Immunity and antibiotic Bottle/Isolator use may render culture (test code = 8499) negative. Ongoing infection requires repeat culture.The results have been reviewed and electronically signed by Pathologist:INO ANGELO MD #[id number] AMRITA (test code = left arm AMRITA) [facility] Glucose [id number] 18:05:57 Test Item Value Reference Range Interpretation Comments POC Glucose (test 167 mg/dL 70-99 H Capillary blood code = 05527-3) samples, e.g . obtained by fingerstick, may have inaccurate results in patients wit h decreased perip heral blood flow. Met hod description: Al l results are titus sured using Electroch emistry test methodolog y. The glucose in the sample mixes with the reagents on the test str ip. The reaction produc es an electric curren t. The amount of curre nt produced is proportional to the glucose concent ration in the blood. PO Sample Type (test Capillary code = 9554) Lab Interpretation Abnormal (test code = 49618-7) MD Lawler Rectal [id number] 01:40:52 Test Item Value Reference Range Interpretation Comments Final Report (test No Vancomycin resistant code = 8488) Enterococci isolated Path Review - VRE The results have been (test code = 8485) reviewed and electronically signed by Pathologist:INO ANGELO MD #[id number] MD De La PazGlucose [id number] 20:27:02 Test Item Value Reference Range Interpretation Comments Glucose Level (test code 217 mg/dL 70-99 H Eff ective 09/02/15, = 5699) the glucose reference inter vals have been updat ed based on [place] an Diabetes Associ ation guidelines (Standards of Medical Care in Diabetes 2016. Diabetes Care 2 016; 39: S13-S22).Fa sting blood glucose:Normal: 70 99 mg/dLImpaire d fasting glucose (increased risk for diabetes or pre-diabetes): 100 125 mg/dLDiabet es mellitus: >/=1 26 mg/dL Random bl ood glucose:Normal: 70 199 mg/dLNote: Random glucose >100 mg/dL is associ ated with increased risk for diabetes Lab Interpretation (test Abnormal code = 15592-6) MD De La PazCalcium Ionized, [id number] 19:59:52 Test Item Value Reference Range Interpretation Comments V Ion Ca (test code = 56800-4) 1.24 mmol/L 1.15-1.29 MD De La PazPartial Thromboplastin [id number] 13:09:01 Test Item Value Reference Range Interpretation Comments PTT (test code = 31.2 See_Comment [Automated message] The 6773) system which ge nerated this result transmit brina reference range : 24.2 - 36.0 second(s). The reference range was not used to interpr et this result as alam l/abnormal. MD De La PazProthrombin [id number] 13:09:00 Test Item Value Reference Range Interpretation Comments PT (test code = 6746) 15.9 See_Comment H [Auto mated message] The system whic h generated this result transmitted ref erence range: 12.0 - 1 4.3 second(s). The reference range was not used to int erpret this result as normal/abnormal . INR (test code = 5973) 1.35 0.90-1.10 H Lab Interpretation (test Abnormal code = 59795-7) MD De La PazRfhadxgaTqzryqzgis0919-97-51 13:08:59 Test Item Value Reference Range Interpretation Comments Fibrinogen (test code = 5610) 234 mg/dL 214-503 MD De La PazJireotinOJL5029-26-33 13:20:50 Test Item Value Reference Range Interpretation Comments CRP (test code = 1.30 mg/L Reference r [facility] for HS CRP 5235) assay are as fo llows: Reference range s when used to assess cardi ac risk: <1.00 mg/L Low cardiovascular risk 1.00-3.00 mg/L Average cardiovascular risk >3.00 mg/L High cardi ovascular risk.Reference ranges when used to assess inflammatory responses: Les s than or equal to 10.00 mg/L. MD De La PazAnion [id number] 12:58:37 Test Item Value Reference Range Interpretation Comments Anion Gap (test code 8 See_Comment [Autom ated message] The = 6775) system which ge nerated this result transmit brina reference range : 4 - 14 mEq/L. The refe rence range was not used to interpret this result as normal/abnormal . MD De La PazChloride [id number] 12:58:35 Test Item Value Reference Range Interpretation Comments Chloride (test code = 108 See_Comment H [Auto mated message] 2625) The system Can[employer] generated this result transmitted ref erence range: 98 - 107 mEq/L. The refe rence range was not u sed to interpret this result as normal/abnor mal. Lab Interpretation (test Abnormal code = 25274-5) MD De La PazPotassium [id number] 12:58:33 Test Item Value Reference Range Interpretation Comments Potassium Lvl (test 4.0 See_Comment [Automa brina message] The code = 6854) system which ge nerated this result tra nsmitted reference range : 3.5 - 5.1 mEq/L. The reference range was not u sed to interpret this result as normal/abnormal . MD De La PazSodium [id number] 12:58:31 Test Item Value Reference Range Interpretation Comments Sodium Lvl (test code 141 See_Comment [Auto mated message] The = 1960) system which ge nerated this result tra nsmitted reference range : 136 - 145 mEq/L. The refe rence range was not used to interpret this result as normal/abnormal . MD De La PazCarbon Dioxide [id number] 12:58:29 Test Item Value Reference Range Interpretation Comments CO2 (test code = 25 See_Comment [Automated message] The 5227) system which ge nerated this result transmit brina reference range : 22 - 29 mEq/L. The refe rence range was not used to interpret this result as normal/abnormal . MD De La PazPotassium [id number] 12:21:22 Test Item Value Reference Range Interpretation Comments V K (test code = 3.8 See_Comment [Automated message] The 60604-0) system which ge nerated this result transmit brina reference range : 3.4 - 4.5 mEq/L. The refe rence range was not used to interpret this result as normal/abnormal . MD De La PazCOVID-19 (SARS-CoV-2) PCR-Asymptomatic [id number] 22:47:16 Test Item Value Reference Range Interpretation Comments COVID19 (SARS Not Detected Not Detected This test is a CoV-2) Result qualitative (test code = reverse-transcr iptase 07026-0) polymerase zach n reaction (RT-PC R) developed for t he [employer]ALE 680 0 system and inte nded for the detecti on of SARS CoV-2 RNA in human nasophary ngeal specimens from patients who me et COVID-19 clinic al and/or epidemiological criteria. This assay has been approv ed by the FDA for use only under Emergency Use Authorization ( EUA) in laboratories that have been CLIA-certified to perform moderate-comple xity and high-comple xity tests. The performance characteristics of this assay were verified by the Microbiology Laboratory at [facility], CLIA Accreditation # : [id number] and CAP Accreditation # : [id number]. Result s must be interpreted within the context of all relevant clinic al and laboratory find ings and should not form the sole basis for a diagnosis or treatment decis ion. "Presumptive Positive" resul ts are due to partial amplification o f SARS-CoV-2 targ ets and indicates l ow amounts of viru s present in the specimen at or near the limit of detection. Regardless, individuals wit h "Presumptive Positive" resul ts should be manag ed per institutional guidelines as individuals pos itive for SARS-CoV-2 virus, including use o f appropriate inf ection control protoco ls. Internal contro ls are included to ass ess for possible amplification inhibitors. If inhibition is detected, testi ng is repeated and if inhibition is confirmed the specimen is res ulted as "Invalid". W hen an "Invalid" resul t occur, it is recommended to wait 3 days before submitting a ne w specimen for te sting if clinically indicated. COVID19 SARS PUPPET ENGINEER Swab Source (test code = 40545) COVID19 SARS Inpatient Indication (test Admission code = 92523) AMRITA (test code = Per ID AMRITA) recommendation, 7 day Hematology COVID swab MD De La PazGcpkldgoUvqzlrpidj5490-31-59 18:11:40 Test Item Value Reference Range Interpretation Comments Prealbumin (test code = 6855) 25.7 mg/dL 20.0-40.0 MD Broderick Interpretation Manual Antibody Screen [id number] 18:16:28 Test Item Value Reference Range Interpretation Comments TMP Neg ABSC At the present Interp (test time, patient code = 7558) plasma shows no ____MYRIAM PERALTA MD evidence of RBC - 73915Eemuy brina by: alloantibodies. MD Vikki BERG [id number] D ate/Time: 04.02.2020 12:1 6 PM SALES FLOOR TEAM MEMBER Transcribed Da te/Time: 04.02.2020 12:1 6 PM CSTElectronical ly Signed By: MYRIAM ZIMMERMAN MD - [id number] on 12:16 PM MD De La PazAntibody Screen Funzkm3731-11-81 15:30:43 Test Item Value Reference Range Interpretation Comments ABSC Interp (test code = 890-4) Negative ABSC MD Broderick Interpretation Gvoxlrlith3525-36-11 03:38:20 Test Item Value Reference Range Interpretation Comments TMP XM Interp RBC units (test code = crossmatched for 7566) transfusion appear GAGAN SANTANA acceptable. MD KATHRYN - 46361Lpvztxrz b y: MD Vikki HOOPER 49341Rzdbqcrv Date/Time: 03.10 21:38 PM SALES FLOOR TEAM MEMBER Transcribed Juan J e/Time: 03.31.2020 21:3 8 PM CSTElectronical ly Signed By: SANDIE PERALTA MD - 1 2005 on 03.31.2020 21:3 8 PM MD De La PazPremoi RBC:P812, 1 Mvdbj2708-98-50 23:15:42 Test Item Value Reference Range Interpretation Comments PRBC Product Ready 1 Red Blood Cells (test code = Available - 02849-5) Order Form 03 when ready for product issue. Unit Number (test [id number] code = 7002) Product Code (test [id number] code = 7003) Unit Expiration [id number] (test code = 969228) Unit Blood Type 5100 (test code = 7004) Product Code Text RBCIRLR CPD AS1 (test code = 500mL 190155) Crossmatch [id number] Expiration Date (test code = 566129) Unit Irradiated IRRADIATED (test code = 003436) Dispense Status ISSUED (test code = 7001) Unit Blood Type O Positive ____ (test code = 7005) _ ____ MD Broderick Interpretation [id number] 20:26:34 Test Item Value Reference Range Interpretation Comments TMP Interp Patient red blood JUAN J (test cells demonstrate code = 7552) the presence of JAMEY DO complement and IgG MD KATHRYN - antibody(ies) of [address]31Yxhpkb ed by: anuel KIM MD - specificity. 77412Zvgjdqqb Date/Time: 03.10 14:26 PM SALES FLOOR TEAM MEMBER Transcribed Juan J e/Time: 03.31.2020 14:2 6 PM CSTElectronical ly Signed By: SANDIE PERALTA MD - 1 2005 on 03.31.2020 14:2 6 PM MD Broderick Interpretation Antibody Fbapgwpfmkuqwx2817-19-11 20:26:23TMP ABID Interp At the present time, laboratory testing of this patients red blood cell (RBC) antibody screen is positive. DISPENSING CROSSMATCH COMPATIBLE RBC UNITS TO THIS PATIENT MAY REQUIRE ADDITIONAL TIME. This patient has formed an alloantibody against an unidentified RBC antigen(s). We areunable to determine if specific alloantibodies are present or if the unidentified antibodies are clinically significant. All RBC units for transfusion should be crossmatched, and compatible or least incompatible RBC unit(s) should be selected for transfusion. This will cause a delay in dispensing RBCs. Alloantibodies directed to RBC surface antigens most often form due to exposure to foreign RBCs during previous transfusion(s) / transplantation, during in female patients, or from exposure to environmental antigens similar in structure to RBC antigens. The presence of these actively formed antibodies may fade over time but can reemerge with re-exposure. Passively acquired alloantibodies may be present in a patient who recently received intravenous immunoglobulin (IVIg) and may be detected by this test. Additional new alloantibodies can result from recent transfusion or ; therefore, we require a repeat type and screen every three days in patients with continuing transfusion needs.Comment: MD Vikki NETTLES [id number] by: MD Vikki NETTLES [id number] Date/Time: 03.31.2020 14:26 PM SALES FLOOR TEAM MEMBER Transcribed Date/Time: 03.31.2020 14:26 PM CSTElectronically Signed By: MD Vikki NETTLES [id number] on 03.31.2020 14:[address] [facility] CenterDirect Antiglobulin Wviv7116-26-00 18:22:22 Test Item Value Reference Range Interpretation Comments JUAN J Result (test code = IgG pos,C3 pos 75029-8) [facility] Interpretation Manual Antibody Screen Sfqzjkoz7644-94-98 18:59:16 TMP Pos ABSC Interp At the present time, laboratory testing of this patients red blood cell (RBC)antibody screen is positive. DISPENSING CROSSMATCH COMPATIBLE RBC UNITS TO THIS PATIENT MAY REQUIREADDITIONAL TIME. Alloantibodies directed to RBC surface antigens most often form due to exposure to foreign RBCs during previous transfusion(s) / transplantation, during in female patients, or from exposure to environmental antigens similar in structure to RBC antigens. The presence of these actively formed antibodies may fade over time but can reemerge with re-exposure. Passively acquired alloantibodies may be present in a patient who recently received intravenous immunoglobulin (IVIg) and may be detected by this test. Additional new alloantibodies can result from recent transfusion or ; therefore, we require a repeat type and screen every three days in patients with continuing transfusion needs. Comment: MYRIAM PERALTA MD - [id number] by: MD Vikki NETTLES [id number] Date/Time: 03.30.2020 12:59 PM SALES FLOOR TEAM MEMBER Transcribed Date/Time: 03.30.2020 12:59 PM CSTElectronically Signed By: MYRIAM PERALTA MD - 60059 on03.30.2020 12:[address] [facility] CenterTMP Interp Auto Antibody Screen Zdmqtajk7250-49-79 18:14:45TMP Auto Pos ABSC InterpAt the present time, laboratory testing of this patients red blood cell (RBC) antibody screen is positive. DISPENSING CROSSMATCH COMPATIBLE RBC UNITS TO THIS PATIENT MAY REQUIRE ADDITIONAL TIME. Alloantibodies directed to RBC surface antigens most often form due to exposure to foreign RBCs during previous transfusion(s) / transplantation, during in female patients, or from exposure to environmental antigens similar in structure to RBC antigens. The presence of these actively formed antibodies may fade over time but can reemerge with re-exposure. Passively acquired alloantibodies may be present in a patient who recently received intravenous immunoglobulin (IVIg) and may be detected by this test. Additional new alloantibodies can result from recent transfusion or ; therefore, we require a repeat type and screen every three days in patients with continuing transfusion needs. 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 Interface, Radiology Results In - 03/24/2020 10:05 AM CST FULL RESULT:Examination: Portable Chest, 1 view, 03/24/2020 9:12 AMClinical History: LeukemiaIndication: Abnormal physical findingsComparison: 03/05/2020Technique: Single portable anteroposterior radiograph of the chest.Findings:The heart and mediastinum are unremarkable. The lungs are clear. Blunting of the left lateral costophrenic angle may represent pleural effusion orpleural thickening.IMPRESSION:Clear lungs.MD De La PazABORh Oeicob2594-63-16 12:44:00 Test Item Value Reference Range Interpretation Comments ABORh Manual (test code = 882-1) A POS MD De La PazTMP Elution Jnqkknugktlnmq1767-08-17 21:33:48 Test Item Value Reference Interpretation Comments Range TMP Elution Patient red blood Interpretation cells demonstrate (test code = 7541) the presence of ____MONICA RAMSEY IgG antibody(ies) MD GENEVIEVE - of unknown 48959Rlsgulya b y: specificity that MONICA HAWKINS MD - are reacting with 79370Cgakp brina all reagent RBCs Date/Time: 03.23.2020 used for 15:33 PM SALES FLOOR TEAM MEMBER alloantibody Transcribed testing. We are Date/Time: 0 03.23.2020 unable to rule 15:33 PM out specific RBC CSTElectron ically alloantibodies. Signed By: MD Vikki CAMARENA 11591 on 03.23.2020 15:3 3 PM MD De La PazTMP Interpretation Mjquuc5909-76-74 21:33:34 Test Item Value Reference Range Interpretation Comments TMP Eluate Patient elution ABID Interp study plasma is (test code = reacting with all EDGARDO VALLEJO MD 7540) reagent RBCs used - 01258Uqt tated by: for alloantibody MONICA HAWKINS MD - testing. We are 42589Szvogte d unable to rule out Date/Time : 03.23.2020 specific RBC 15:33 PM SALES FLOOR TEAM MEMBER alloantibodies. Transcribed Date/Time: 03.23.2020 15:3 3 PM CSTElectronical ly Signed By: EDGARDO VALLEJO MD - 98736 on 03.23.2020 15:3 3 PM MD De La PazAntibody Screen, Aqkwou0664-87-79 21:10:34 Test Item Value Reference Range Interpretation Comments Elution Screen Result (test code = RACT A 897-9) Lab Interpretation (test code = Abnormal 80063-4) MD De La PazEimuputiZsyiljiuczn4838-55-28 18:20:52 Test Item Value Reference Range Interpretation Comments Haptoglobin (test code = 5858) <3 32-197 L Lab Interpretation (test code = Abnormal 39327-4) MD De La PazOSI Cqtrj0575-34-22 05:25:35Study acquired at another institution. For comparison only. No MD De La Paz originated interpretationrequested or available.MD De La PazPOC Ryvdswfr0517-85-62 05:54:17 Test Item Value Reference Range Interpretation Comments POC Critical Comment See Note Test pe rformer notified (test code = 8955) Ordering Licensed Provider and /o r designee of POC Glucose Screen critical Results.. MD De La PazIFE Path Dluzxy6088-33-25 17:08:16 Test Item Value Reference Range Interpretation Comments GARY Path The serum protein Int (test immunofixation code = electrophoretic BEVERL Fili LAUGHLIN MD 5949) patterns obtained - 31842Dsk tated by: with the use of TREASURE Penn MD - antisera against IgG, 98640P ictated IgA, IgM, bound kappa Date/T gale: 03.10.2020 and bound lambda 11:08 AM CS T light chains do not Transcri bed Date/Time: show definitive 03.10.2020 1 1:08 AM evidence of a CSTElectronica lly monoclonal Signed By: WAYNE CASTELLANOS gammopathy. MD Vikki LAUGHLIN 1018 4 on 03.10.2020 11:0 8 AM MD De La PazWfhmwutmKGY3785-13-22 17:08:15 Test Item Value Reference Range Interpretation Comments GARY (test code = 5948) No M-protein MD De La PazProtein Electrophoresis Path Itggoz0879-16-06 17:08:14 Test Item Value Reference Interpretation Comments Range SPE Path The serum protein Interp electrophoretic pattern ____ (test code shows very small, TREASURE = 7285) indistinct peaks in the CRYSTAL Penn MD - gamma region. A 38919Vaypeie d by: hypogammaglobulinemia is APOLONIA LIYA LAUGHLIN MD - also present. Serum GARY 1018 4Dictated studies, however, do not Juan J e/Time: 03.10.2020 show definitive evidence 11: 08 AM SALES FLOOR TEAM MEMBER of a monoclonal Transcribed gammopathy. Date/Time: 11:08 AM CSTElectronical ly Signed By: MD Vikki CARRION 1018 4 on 03.10.2020 11:0 8 AM MD De La PazProtein Akxmksjuvyirzko3460-75-06 17:08:13 Test Item Value Reference Range Interpretation Comments TOT PROTEIN (test code = 6.2 See_Comment L [A utomated message] 2976) The system [employer] generated this result transmitted ref erence range: 6.4 - 8. 3 gm/dL. The refe rence range was not u sed to interpret this result as normal/abnor mal. Albumin (test code = 4.1 See_Comment [Autom ated message] 1951-7) The system [employer] generated this result transmitted ref erence range: 3.6 - 5. 4 gm/dL. The refe rence range was not u sed to interpret this result as normal/abnor mal. Alpha 1 Globulin (test 0.4 See_Comment [Aut omated message] code = 7975-4) The system [employer] generated this result transmitted ref erence range: 0.2 - 0. 4 gm/dL. The refe rence range was not u sed to interpret this result as normal/abnor mal. Alpha 2 Globulin (test 0.7 See_Comment [Aut omated message] code = 0658-8) The system [employer] generated this result transmitted ref erence range: 0.5 - 1. 0 gm/dL. The refe rence range was not u sed to interpret this result as normal/abnor mal. Beta Globulin (test code 0.6 See_Comment [A utomated message] = 4721-2) The system [employer] generated this result transmitted ref erence range: 0.5 - 1. 1 gm/dL. The refe rence range was not u sed to interpret this result as normal/abnor mal. Gamma Globulin (test 0.3 See_Comment L [Autom ated message] code = 3204-6) The system [employer] generated this result transmitted ref erence range: 0.7 - 1. 6 gm/dL. The refe rence range was not u sed to interpret this result as normal/abnor mal. Lab Interpretation (test Abnormal code = 67134-8) MD De La PazHISUNIVERSITY [facility] C[facility]ICAL [id number] 16:04:15 Test Item Value Reference Range Interpretation Comments HXABSC (test code = 9019) Positive A Lab Interpretation (test code = Abnormal 51276-6) [facility] Pathology [id number] 16:34:53 Test Item Value Reference Range Interpretation Comments CBC Path Lymphocytosis with Interp (test mostly small mature code = 5181) appearing lymphocytes SHERITA with coarse chromatin MD HELEN - and increased smudged 27285I ictated by: cells in a previously SHERITA Lay MD - 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 03.07.2020 10:3 4 AM SALES FLOOR TEAM MEMBER Transcrib ed Date/Time: 03.07.2020 10:3 4 AM CSTElectronical ly Signed By: SHERITA CERVANTES MD - 27985 on 03.07.2020 10:3 4 AM AMRITA (test code Differential is = AMRITA) referred to Pathologist for review. MD De LaP azPreliminary Yeyjttstfwjk9519-68-12 15:47:08 Test Item Value Reference Range Interpretation Comments Preliminary Diff See Note A This differ ential Comment (test code = require s pathologist 9643) review. These results are preliminary and all elements are weiss bject to change. Ple ase use caution in evaluating your patient based o n preliminary res ults. Preliminary Neutrophil 6.0 % 42.0-66.0 L % (test code = 9644) Preliminary Lymphocyte 93.0 % 24.0-44.0 H % (test code = 9645) Preliminary Monocyte % 1.0 % 2.0-7.0 L (test code = 9646) Preliminary ANC (test 7.39 K/uL 1.70-7.30 H code = 9654) Lab Interpretation Abnormal (test code = 35501-8) MD De La PazLactic Acid, Uovpct4216-67-29 08:46:43 Test Item Value Reference Range Interpretation Comments V Lactate (test code = 2519-7) 1.7 mmol/L 0.5-1.6 H Lab Interpretation (test code = Abnormal 46253-8) MD De La PazHepatitis C Virus RNA Detect/Ajpby7215-89-40 03:33:02 Test Item Value Reference Range Interpretation Comments HepC RNA PCR Undetected Undetected IU/mL Result in l og IU/mL is Naida (test Undetected. code = 95442-0) -------ADDITIO NAL INFORMATION---- ----The quantif ication range of this a ssay is 15 to 100,000,000I U/mL (1.18 log to 8.00 log IU/mL). Testing was per formedusing the wale HCV t est ([employer]with the c davis 6800 System. Test Pe rformed by:[facility] [address] [place] [address]Lab Director: Pepe Felder M.D. Ph. D.; CLIA# [id number] MD [facility] hospitalkrysta B Core Total Ppcawaif2093-68-85 17:09:46 Test Item Value Reference Range Interpretation Comments HBc Total Ab-[place] Negative Negative Test Perf ormed by:[place] (test code = [facility] - 57647-0) [facility] ior [address] [place], [place] [address]Cot Director: Pepe Felder M.D. Ph. D.; CLIA# [id number] [facility] Surface Ag w/Umgyjgy0555-14-38 16:55:36 Test Item Value Reference Range Interpretation Comments Hep Bs Ag-[place] Negative Negative Test Perform ed by:[place] (test code = [facility] - 5196-1) [facility] ior [address] [place], [place] [address]Nqq Director: Pepe Felder M.D. Ph. D.; CLIA# [id number] [facility] Specimen Collection -Tqxcm6716-21-86 15:06:17 Test Item Value Reference Range Interpretation Comments Molecular Diagnostics (Received) (test Yes code = 8400) Kirsten Zamora Link (test code = 74316) gee De La PazFlow Cytometry Specimen Collection -Fnzpm5438-20-88 14:30:49 Test Item Value Reference Range Interpretation Comments Flow Cytometry Yes Test performe d by:The (Received) (test code = [facility] 8319) [facility] CenterFlow Cyto metry Tsrihmwfba1302 [place] [address] Kirsten Cazares (test N/A code = 19268) MD De La PazFC CD4/CD8 Uhxri1028-73-21 14:30:33 Test Item Value Reference Interpretation Comments Range WBC Count, Ratio Add 64.0 K/uL Test pe rformed (test code = 8461) by:The [facility] Center[facility] Gysmuxiaar3022 [place] [address] Gated Lymph Region, 84 % Test per formed Ratio Add (test code by:The = 8353) [facility] [address] [place] [address]83 CD3+ (test code = 0.8 % 64.5-88.5 L Test perfo rmed 8124-0) by:The [facility] [address] [place] [address] 65341 CD3+ Absolute (test 430 See_Comment Test per formed code = 8122-4) by:The [facility] [address] [place] [address] 49[address] [Automated message] The system which generated this result transmitted reference range : 395 - 2,692 cells/mcL. The reference range was not used to interpret this result as normal/abnormal . CD3+CD4+ (test code 0.5 % 37.7-64.2 L Test per formed = 8123-2) by:The [facility] [address] [place] [address] 05294 CD3+CD4+ Absolute 269 See_Comment Test perfo rmed (test code = by:The 37417-4) [facility] At[address]iitqan[address] [place] [address] 86265 [Automated message] The system which generated this result transmitted reference range : 188 - 1,883 cells/mcL. The reference range was not used to interpret this result as normal/abnormal . CD3+CD8+ (test code 0.3 % 10.9-35.3 L Test per formed = 8101-8) by:The [facility]Flow Cytometry [address] [place] [address]57 CD3+CD8+ Absolute 161 See_Comment Test perfo rmed (test code = by:The 85125-8) [facility] [address]mfqofdiop[address] [place] [address] 32435 [Automated message] The system which generated this result transmitted reference range : 82 - 831 cells/mcL. The reference range was not used to interpret this result as normal/abnormal . CD4+/CD8+ Ratio 1.67 1.80-3.50 L Test perform ed (test code = by:The 79833-4) [facility] Dvkyguwksg9622 [place] [address] AMRITA (test code = This test was AMRITA) developed and its performance characteristics determined by [facility] Clinical Flow Cytometry Laboratory. It has not been cleared or approved by the US Food and Drug Administration. The FDA does not require this test go through premarket FDA review. This test is used for clinical purposes. It should not be regarded as investigational or for research. This laboratory is certified under the Clinical Laboratory Improvement Amendment of 1988 (CLIA) as qualified to perform high complexity clinical laboratory testing. Lab Interpretation Abnormal (test code = 53138-8) [facility] HIV 1/2 Ag&Ab Path Vspqyh4802-27-72 12:29:28 Test Item Value Reference Range Interpretation Comments HIV 1/2 Ag&Ab Negative for Interp (test HIV-1 antigen and code = 9394) HIV-1/HIV-2 ____MONICA HAWKINS MD - [place]. [place] [address]Ydozgoza by: MONICA VALLEJO MD - evidence of HIV 65566Yikdzxy d Date/Time: infection. If 03.06.2020 6:2 9 AM SALES FLOOR TEAM MEMBER acute HIV Transcribed Juan J e/Time: infection is 03.06.2020 6:29 AM suspected, CSTElectronical ly Signed consider testing By: MONICA VALLEJO MD - for HIV-1 RNA. 57871 on 6:29 AM C [facility] Chem [id number] 11:12:15 Test Item Value Reference Interpretation Comments Range POC NA (test code = 135 See_Comment L [Automa brina message] The 93867-0) system which ge nerated this result tra nsmitted reference range : 138 - 146 mEq/L. The reference range was not u sed to interpret this result as normal/abnormal . POC K (test code = 4.1 See_Comment Method de scription: The 64369-8) i-STAT is an an alyzer used for in vit ro quantification of various analyte s in whole blood. Th e device uses a single d isposable cartridge which contains microfabricated sensors, a calibration s olution, fluidics system , and a waste chamber. Each test cartridge conta ins chemically sens itive biosensors on a silicon chip that are c onfigured to perform spec ific tests. The microfabricated sensors measure analyte concentration b y an electrochemical assay. [Automated mess age] The system which ge nerated this result tra nsmitted reference range : 3.5 - 4.9 mEq/L. The reference range was not u sed to interpret this result as normal/abnormal . POC CL (test code = 108 See_Comment [Automa brina message] The 2068-04) system which ge nerated this result tra nsmitted reference range : 98 - 109 mEq/L. The reference range was not u sed to interpret this result as normal/abnormal . POC ATCO2 (test code 19 See_Comment L [Autom ated message] The = 2025-04) system which ge nerated this result tra nsmitted reference range : 23 - 27 mEq/L. The refe rence range was not u sed to interpret this result as normal/abnormal . POC BUN (test code = 33 mg/dL 8-26 H 6299-2) POC Crea (test code 1.3 mg/dL 0.6-1.3 Medicati ons, especially = 27447-4) hydroxyurea or supplements, weiss ch as ascorbate, can interfere with test resul ts causing a false ly and significantlyhi gher result than exp ected. If a problem is weiss spected with a patient' s result, a sample should be sent to the laborato ry for confirmatory te sting. Method descript ion: The i-STAT is an an alyzer used for in vit ro quantification of various analyte s in whole blood. Th e device uses a single d isposable cartridge which contains microfabricated sensors, a calibration s olution, fluidics system , and a waste chamber. Each test cartridge conta ins chemically sens itive biosensors on a silicon chip that are c onfigured to perform spec ific tests. The microfabricated sensors measure analyte concentration b y an electrochemical assay. POC eGFR-AA (test 62 See_Comment Normal eGF R >= 60 code = 45247-3) mL/min/1.73 m2 The eGFR is calculated u sing the CKD-EPI equatio n. The eGFR declines w ith age. eGFR <60 mL/min /1.73 m2 is considered a s "decreased" Thi s equation should only be used for patien ts 18 and older. Accordin g to the National Kidney Foundation's Ki dney Disease Outcome Quality Initiative (KDO QI) classification and 2012 Kidney Disease Improving Global Outcomes (KDIGO) Clinical Practi ce Guideline, the stage of CKD should be categorized bas ed on estimated GFR. Stage Description GFR mL/min/1.73 m21 Kidney damage with nor mal or high GFR >= 902 Kidney damage w ith mild decrease in GFR 60-893a Mild to moderate decrease in GFR 45-593b Moderat e to severe decrease in GFR 30-444 Severe decrease in GFR 15-29 5 Kidney failure <15 (or dialysis) [Aut omated message] The sy stem which generated this result transmit brina reference range : >=60 mL/min/1.73 m2. The reference range was not used to interpr et this result as normal/abnormal . POC eGFR-ALESSIA (test 53 See_Comment L Normal eG FR >= 60 code = 21732-8) mL/min/1.73 m2 The eGFR is calculated u sing the CKD-EPI equatio n. The eGFR declines w ith age. eGFR <60 mL/min /1.73 m2 is considered a s "decreased" Thi s equation should only be used for patien ts 18 and older. Accordin g to the National Kidney Foundation's Ki dney Disease Outcome Quality Initiative (KDO QI) classification and 2012 Kidney Disease Improving Global Outcomes (KDIGO) Clinical Practi ce Guideline, the stage of CKD should be categorized bas ed on estimated GFR. Stage Description GFR mL/min/1.73 m21 Kidney damage with nor mal or high GFR >= 902 Kidney damage w ith mild decrease in GFR 60-893a Mild to moderate decrease in GFR 45-593b Moderat e to severe decrease in GFR 30-444 Severe decrease in GFR 15-29 5 Kidney failure <15 (or dialysis) [Aut omated message] The sy stem which generated this result transmit brina reference range : >=60 mL/min/1.73 m2. The reference range was not used to interpr et this result as normal/abnormal . POC Glucose (test 244 mg/dL 70-99 H code = 85194-6) POC Ion Ca (test 1.22 mmol/L 1.12-1.32 code = 28475-6) POC Hct (test code = 20.0 % 38.0-51.0 L ) POC Hgb (test code = 6.8 See_Comment A Hematoc rit values from 8-7) the iSTAT are d etermined conductometrica lly, which may be af fected by WBC count, leve ls of total protein, lipids, or sodium. The hemoglobin resu lt is calculated base d on the corresponding m easured hematocrit and assumes a normal MCHC. If there is a discepency be tween the results from iS TAT and conventional la boratory method, the res ult from conventional me thod should be consi dered the accurate standa rd. [Automated mess age] The system which ge nerated this result tra nsmitted reference range : 12.0 - 17.0 gm/dL. The reference range was not used to interpr et this result as normal/abnormal . POC Sample Type Arterial (test code = 6690) POC Clean Dev (test Yes code = 6672) Lab Interpretation Abnormal (test code = 59841-4) MD AndersonCT Chest without [id number] 03:20:20Nonspecific bilateral lung nodules likely infectious/inflammatory. Enlarged mediastinal, upper abdomi nal and bilateral axillary nodes in a patient with given clinical history of chronic lymphoid leukemia. 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 Bilateral lower lobe linear opacities may represent atelectasis. Bilateral emphysematous lung changes.Multicompartment enlarged mediastinal nodes as seen in the left lower paratracheal station measuring 1.6 cm, right lower paratracheal station measuring 2 cm and subcarinal region measuring 1.8 cm. Paracardiac nodes measuring up to 8 mm. Enlarged right axillary nodes measuring 1.3 cm and left axillary nodes measuring 1.2 cm. Bilateral subcentimeter supraclavicular nodes.Ascending thoracic aorta is dilated with transverse diameter measuring 5 cm. Pulmonary artery with transverse diameter measuring 3.8 cm. Atherosclerosis of the aorta and coronary arteries.Heart size in the upper limits of normality. No evidence of pleural or pericardial effusions.The adrenal glands are normal. Splenomegaly. 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.MD De La PazHIV- 1/2 Antigen and Antibodies, Fourth [id number] 02:59:12 Test Item Value Reference Range Interpretation Comments HIV 1/2 Ag & Ab, Non Reactive Non Reactive Performed a t: 4th Gen (test code [place] [facility] = 9280) [address] [address] MD De La PazEchocardiogram 2D [id number] 20:06:44 Test Item Value Reference Range Interpretation Comments EF (test code = 56 [id number]) PXN (test code Interface, Radiology Results = PXN) In - 03/05/2020 2:07 PM CST Echocardiographic ReportInterpretation SummaryA complete two-dimensional transthoracic echocardiogram was performed (2D, M-mode, Spectral and color Doppler).LV is dilated.LV ejection fraction calculated using the bi-plane method of disks is 56 %.Normal global longitudinal peak systolic value.Impaired LV relaxation pattern of diastolic dysfunction, Doppler suggests increased LA pressures.There is no pericardial effusion.Left Ventricle:LV is dilated. There is normal left ventricular wall thickness. LV ejection fraction calculated using the bi-plane method of disks is 56 %.I WMSI = 1.00 % Normal = 100 Normal global longitudinal peak systolic value. GLPS avg = -20.4%.X - Cannot 1 - Normal 2 - 3 - Akinetic 4 - DyskineticInterpret Hypokinetic5 - Cpsushpnrn7L imaginD volumes were not performed in this study.Cardiac Mechanics/Speckle Tracking Imaging:Normal global longitudinal peak systolic value. Strain Imaging was performed; GLPS avg = -20.4%.Diastology:Impaired LV relaxation pattern of diastolic dysfunction, Doppler suggests increased LA pressures.Right Ventricle:The right ventricle is normal in size and function. Normal RV systolic function using TAPSE criteria.Atria:There is mild left atrial enlargement. Lipomatous hypertrophy of the interatrial septum is noted.Mitral Valve:Mild thickening changes are noted. Mitral annular calcification is present. Nodular thickening changes in the posterior leaflet. There is mild mitral regurgitation.Tricuspid Valve:The tricuspid valve is not well visualized, but is grossly normal. There is trace tricuspid regurgitation. Estimated RVSP is 25-30mmHg. Right ventricular systolic pressure is normal.Aortic Valve:The aortic valve is trileaflet. Mild aortic valve thickening. The aortic valve opens well. There is mild aortic regurgitation.Pulmonic Valve:The pulmonic valve is not well visualized.Great Vessels:Ao root is dilated. IVC is small, consistent with intravascular depletion.Pericardium/Pleural: There is no pericardial effusion.Preliminary ReviewerPreliminary Interpretation: Brandy Devries MD.MMode/2D Measurements IVSd: 1.0 cm LVIDd: 4.6 cm LVIDs: 3.0 cm LVPWd: 1.0 cmFS: 36.1 % Ao root diam: 3.6 cm Ao root area: 10.3 cz1YPOY diam: 2.3 cm EDV(MOD-A4C): 176.1 ml ESV(MOD-A4C): 80.7 mlLVOT area: 4.2 cm2 EF(MOD-A4C): 54.2 %EDV(MOD-A2C): 237.1 mlESV(MOD-A2C): 103.2 ml EDV(MOD-bp): 216.1 mlEF(MOD-A2C): 56.5 % ESV(MOD-bp): 96.2 ml EF(MOD-bp): 55.5 %LAV(MOD-A2C): 78.0 ml EDV (MOD-bp) Index: 110.3 ml/m2LAV(MOD-A4C): 61.3 mlLAV(MOD-bp): 77.1 mlLAV(MOD-bp) Indexed: 39.4 ml/m2ESV (MOD-bp) Index: 49.1 ml/m2 TAPSE (>1.6): 2.8 cmDoppler Measurements MV E max freda: 121.3 cm/sec MV V2 max: 128.8 cm/secMV A max freda: 136.7 cm/sec MV max P.6 mmHgMV E/A: 0.89 MV V2 mean: 67.6 cm/sec MV mean P.2 mmHg MV V2 VTI: 49.3 cm MVA(VTI): 3.2 cm2MV P1/2t max freda: 120.8 cm/sec Ao V2 max: 202.8 cm/sec Ao max P.4 mmHg Ao V2 mean: 112.9 cm/sec Ao mean P.4 mmHg Ao V2 VTI: 40.0 cm ISABEL(I,D): 3.9 cm2 ISABEL(V,D): 3.2 cm2AI dec slope: 168.3 cm/sec2 LV V1 max P.3 mmHg LV V1 mean P.2 mmHg LV V1 max: 152.2 cm/sec LV V1 mean: 93.9 cm/sec LV V1 VTI: 37.2 cmMR max freda: 560.8 cm/sec SV(LVOT): 156.9 mlPA V2 max: 98.2 cm/sec TR max freda: 244.8 cm/secPA max P.9 mmHg TR max P.0 mmHgPA V2 mean: 57.4 cm/sec RVSP(TR): 27.0 mmHgPA mean P.5 mmHgPA V2 VTI: 18.7 cmRAP systole: 3.0 mmHg ISABEL Index (I,D): 2.0AVA Index (V,D): 1.6 Dimensionless Index: 0.75E/e' (avg): 15.3 E/e' (lat): 11.3E/e' (sept): 24.1 MD Blood [id number] 18:19:56 Test Item Value Reference Range Interpretation Comments K Note (test code See Note Potassium level can be = 8738) falsely elevate d due to Leukocytosis and/orThrombocy tosis. A venous blood sa mple, collected in a balancedheparin syringe, is recommended. Felisa the laboratory at e [phone]. [phone] assistance in o rdering the Potassium, Hepa rinized test. MD AndersonManual Confirm [id number] 04:50:18 Test Item Value Reference Range Interpretation Comments Confirm ABORh (test code = 882-1) A POS MD Sage [id number] 03:27:37 Test Item Value Reference Range Interpretation Comments POC AB pH (test code = 7.42 7.35-7.45 2744-1) POC AB pCO2 (test code 28 See_Comment L [Aut omated = 2018-09) message] The system which generated this result transmit brina reference range : 35 - 45 mmHg. T he reference range was not used to interpret this result as normal/abnormal . POC AB pO2 (test code 60 See_Comment L [Auto mated = 2703-7) message] The system which generated this result transmit brina reference range : 80 - 105 mmHg. The reference range was not used to interpret this result as normal/abnormal . POC AB TCO2 (test code 19 See_Comment L [Aut omated = 2025-) message] The system which generated this result transmit brina reference range : 23 - 27 mEq/L. The reference range was not used to interpret this result as normal/abnormal . POC AB Bicarb (test 18 mmol/L 22-26 L code = 1960-4) POC AB Base Ex (test -5 mmol/L -2-3 L code = 53090-8) POC AB O2 Sat (test 92 % 95-98 L code = 2708-6) POC FiO2 (test code = 21 58747-2) POC ABG Draw Site Lt Radial (test code = 37034-4) POC Kirt Test (test Not Performed code = 6668) POC Sample Type (test Arterial code = 6690) POC Clean Dev (test Yes code = 6672) Lab Interpretation Abnormal (test code = 78846-1) MD De Guzman Surface B [id number] 00:32:38 Test Item Value Reference Range Interpretation Comments HBsAg Received (test See Note HBsAg w as sent to a code = 94824) reference lab for testing. Expec t results on Hepa titis B Surface Antigen w/ Confirm within 96 hours. MD Gab Michael Total Ig Core Ab (SCREENING) (anti-HBc total Ig; HBcAb total Ig)2020-03-05 00:32:37 Test Item Value Reference Range Interpretation Comments HBcAb Received (test See Note HBcAb w as sent to a code = 92486) reference lab for testing. Expec t results on Hepa titis B Core Total Ab w ithin 96 hours. MD De La PazThyroid Stimulating [id number] 23:56:24 Test Item Value Reference Range Interpretation Comments TSH (test code = 1.04 See_Comment [Automated message] The 7578) system which ge nerated this result transmit brina reference range : 0.27 - 4.20 mcunit/mL. The reference range was not used to interpr et this result as alma l/abnormal. MD De La PazTwdarujgWrmfcfmww8345-43-46 23:56:23 Test Item Value Reference Range Interpretation Comments T4 (test code = 7493) 5.4 See_Comment [Auto mated message] The system which ge nerated this result transmit brina reference range : 4.5 - 11.7 mcg/dL. The ref erence range was not used to interpret this result as normal/abnormal . MD De La PazPeripheral Smear For Bone [id number] 23:15:38 Test Item Value Reference Range Interpretation Comments Peripheral Smear (test code = 4273) PSMEAR MD De La PazInfluenza A/B + COVID-19 Asymptomatic- [id number] 21:37:10 Test Item Value Reference Range Interpretation Comments Influenza A (test Not Detected Not Detected code = 33653-7) Influenza B (test Not Detected Not Detected code = 58340-6) COVID19 Not Detected Not Detected (SARS-CoV-2) (test code = 93604-1) COVID19 SARS Inpatient Indication (test Admission code = 81595) Inf AB+Cov19 See Note The wale SARS- CoV-2 Comment (test & Influenza A/ B code = 32303) nucleic acid t est for use on the william s Little System is a mul tiplex real-time RT-PC R assay intended for the simultaneou s, qualitative det ection and differentia l of SARS-CoV-2 (COVID-19), inf luenza A, and influenz a B viral RNA in nasopharyngeal swabs in transport me odalis from patients suspected of mccray ving a respiratory inf ection with one of the se viruses or poss ibly exposure to COV ID-19 by a healthcare provider. Resul ts must be interpr eted within the cont ext of all relevant cl inical and laboratory findings and sh ould not form the so le basis for a odalis gnosis or treatment decision. A fac t sheet for patie nts provided by the software technician (invi, [employer]) can be rev iewed at: https://www.fda .gov/ edia/157863/jhonatan nloadA fact sheet for Health Care providers is provided by the software technician (invi, [employer]) and can be reviewed at: https://www.fda .gov/m edia/436127/jhonatan nload Influenza A and Influenza B neg ative results should be considered presumptive in samples that mccray ve a positive SARS-C oV-2 result. If co-infection wi th influenza A or influenza B vir us is suspected in sa mples with a positive SARS-CoV-2 resu lts, the sample shou ld be re-tested with another approve d influenza test. This assay has been authorized by t [facility] for use only un bre Emergency Use Authorization ( EUA) in laboratories that have been CLIA-certified to perform moderate-comple xity and high-comple xity tests. The Microbiology Laboratory at [facility], CLIA Accreditation #[id number] and CAP Accreditation #[id number], verif ied the performance characteristics of this assay. Int ernal controls are ed to monitor all sta ges of the test catarino white MD [place] IslandCARDIAC CATH REPORT - [id number] 12:09:17Ordered by an unspecified provider.[facility] CenterECG 12 [id number] 13:28:55 Interface, External Ris In - 2020 1:29 PM CSTVentricular Rate 51 BPMAtrial Rate 166 BPMQRS Duration 92 msQ-T Interval 524 msQTC Calculation(Bazett) 482 msP [place] 41 degreesR [place] -6 degreesT Axis56 degreesSinus bradycardiaCannot rule out Anterior infarct , age undeterminedProlonged QTAbnormal ECG18 DEC 2019Sinus bradycardia replaced AVNRTST no longer depressed precordial leadsQT has shortenedConfirmed by MD MUSHTAQ, RADHA ([id number]) on 2020 1:28:53 [facility]PO ACTIVATED CLOTTING [id number] 11:45:00 Test Item Value Reference Range Interpretation Comments Activated Clotting Time 252 sec : 74 -137 seconds, (test code = 441) Baseline: TESTED AT [facility] [address] [facility], [address]: Size Worker/Techni rigoberto ID = [id number] for CO NDE, CLAU [facility] CenterPOCT-[id number] 11:45:00 Test Item Value Reference Range Interpretation Comments ACTIVATED CLOTTING TIME 252 sec : 74 -137 seconds, (BEAKER) (test code = Baseli ne: TESTED AT 441) [facility] [address] [facility], [address]: Size Worker/Techni rigoberto ID = [id number] for CO NDE, CLAU SARS-CoV2/RT-PCR ([facility])2020-01-03 17:54:00 Test Item Value Reference Range Interpretation Comments SARS-COV2/RT-PCR Negative Not Detected, (test code = Negative, See 69648-1) external report for linked test SARS-COV-2 [facility] GENEVIEVE PERFORMING LAB (test code = 00544-1) AMRITA (test code = Negative result for [...] of the Act. Fact Sheet for Healthcare Providers:https://www.RigUp/sites/default/f odalys/product/documents/F act_Sheet_HC_Providers_L nus_ADQH-ShL-5.pdf Fact Sheet for Healthcare Patients:https://www.TrafficLand/sites/default/fi les/product/documents/Fa ct_Sheet_Patients_Lyra_S ARS-CoV-2.pdf Performing Laboratory:[facility], [place] [address] [place], [place] [address]ARS-COV2/RT-PCR ([facility])2020-01-03 17:54:00 Test Item Value Reference Range Interpretation Comments SARS-COV2/RT-PCR (test Negative Not Detected, Negative, code = 4763426) See external report for linked test SARS-COV-2 PERFORMING LAB [facility] GENEVIEVE (test code = 4683820) Negative result for this test determines that [...] 564(g) of the Act.Fact Sheet for Healthcare Providers:https://www.PermissionTV/sites/default/files/product/documents/Fact_Shee m_EG_Dadvxjnou_Grke_AXTE-KbP-0.pdfFact Sheet for Healthcare Patients:https://www.PermissionTV/sites/default/files/product/ documents/Kilt_Vqanw_Ydivslfd_Czjz_RRIZ-FdQ-9.pdfPerforming Laboratory:[facility], [place] [address] [place] [address] -[id number] 10:07:56Ordered by an unspecified provider.[facility] ([facility])2019-12-19 10:14:00 Test Item Value Reference Range Interpretation Comments SARS-COV2/RT-PCR (test Negative Not Detected, Negative, code = 3061856) See external report for linked test SARS-COV-2 PERFORMING LAB [facility] GENEVIEVE (test code = 2701056) Negative result for this test determines that [...] 564(g) of the Act.Fact Sheet for Healthcare Providers:https://www.PermissionTV/sites/default/files/product/documents/Fact_Shee p_TZ_Fbevzwyhu_Yphb_MFZX-SjE-2.pdfFact Sheet for Healthcare Patients:https://www.PermissionTV/sites/default/files/product/ documents/Tqme_Sdmlp_Tpddobdh_Pliq_UQXC-BoX-6.pdfPerforming Laboratory:[facility], [place] [address]KVG-Aneaofg meter 2019-12-19 07:30:00 Test Item Value Reference Range Interpretation Comments POC-Glucose Meter (test 121 mg/dL 70-110 H : TE STED AT [facility] code = 1538) [address] [facility], [address]: Size Worker/Techni rigoberto ID = [id number] for YESSI VERGARA Lab Interpretation (test Abnormal code = 45248-3) [facility] CenterPOCT-GLUCOSE [id number] 07:30:00 Test Item Value Reference Range Interpretation Comments POC-GLUCOSE METER 121 mg/dL 70-110 H : TESTED A T [facility] [address] (BEAKER) (test code = HAYDEN Rob [facility], 1538) [address]: Size Worker/Techni rigoberto ID = [id number] for SACHA AYALAA KAYLENSHERYL Basic Metabolic [id number] 07:06:00 Test Item Value Reference Range Interpretation Comments Sodium (test code = 140 meq/L 660-395 4968-2) Potassium (test code = 3.7 meq/L 3.5-5.1 2823-3) Chloride (test code = 109 meq/L 98-107 H 2075-0) CO2 (test code = 25 meq/L 22-29 8-9) BUN (test code = 20 mg/dL 7-21 3094-0) Creatinine (test code 1.29 mg/dL 0.57-1.25 H = 2160-0) Glucose (test code = 130 mg/dL 70-105 H 2345-7) Calcium (test code = 8.6 mg/dL 8.4-10.2 12291-3) EGFR (test code = 54 mL/min/1.73 [place] [address]-5) NOT ACCURATE CREATININE CLEARANCE IN PREDICTING GLOMERULAR FILTRATION RATE . ESTIMATED GFR I S NOT APPLICABLE FOR DIALYSIS PATIENTS. AMRITA (test code = AMRITA) Size Worker ID - MARIELA M Lab Interpretation Abnormal (test code = 32221-1) [facility] CenterMagnesium2020-11-12 07:06:00 Test Item Value Reference Range Interpretation Comments Magnesium (test code = 2.1 mg/dL 1.6-2.6 33178-1) AMRITA (test code = AMRITA) Size Worker ID - MARIELA M Lab Interpretation (test Normal code = 14252-1) [facility] CenterPhosphorus2020-11-12 07:06:00 Test Item Value Reference Range Interpretation Comments Phosphorus (test code = 2.9 mg/dL 2.3-4.7 2777-1) AMRITA (test code = AMRITA) Size Worker ID - MARIELA M Lab Interpretation (test Normal code = 96818-8) [facility] CenterBASIC METABOLIC [id number] 07:06:00 Test Item Value Reference Range Interpretation Comments SODIUM (BEAKER) 140 meq/L 136-145 (test code = 381) POTASSIUM (BEAKER) 3.7 meq/L 3.5-5.1 (test code = 379) CHLORIDE (BEAKER) 109 meq/L 98-107 H (test code = 382) CO2 (BEAKER) (test 25 meq/L - code = 355) BLOOD UREA NITROGEN 20 mg/dL 7- (BEAKER) (test code = 354) CREATININE (BEAKER) 1.29 mg/dL 0.57-1.25 H (test code = 358) GLUCOSE RANDOM 130 mg/dL 70-105 H (BEAKER) (test code = 652) CALCIUM (BEAKER) 8.6 mg/dL 8.4-10.2 (test code = 697) EGFR (BEAKER) (test 54 mL/min/1.73 ESTIMA BRINA GFR IS code = 1092) sq m NOT ACCURATE CREATININE CLEARANCE IN PREDICTING GLOMERULAR FILTRATION RATE . ESTIMATED GFR I S NOT APPLICABLE FOR DIALYSIS PATIEN TS. Size Worker ID - MARIELA [id number] 07:06:00 Test Item Value Reference Range Interpretation Comments MAGNESIUM (BEAKER) (test code = 2.1 mg/dL 1.6-2.6 627) Size Worker ID - MARIELA [id number] 07:06:00 Test Item Value Reference Range Interpretation Comments PHOSPHORUS (BEAKER) (test code = 2.9 mg/dL 2.3-4.7 604) Size Worker ID - MARIELA [facility] (hemogram only)2019-12-19 05:34:00 Test Item Value Reference Range Interpretation Comments WBC (test code = 6690-2) 48.4 See_Comment H [A utomated message] The system Can[employer] generated this result transmitted ref erence range: 3.5 - 10 .5 K/L. The refe rence range was not u sed to interpret this result as normal/abnor mal. RBC (test code = 789-8) 2.60 See_Comment L [Au tomated message] The system Can[employer] generated this result transmitted ref erence range: 4.63 - 6 .08 M/L. The refe rence range was not u sed to interpret this result as normal/abnor mal. MCHC (test code = 786-4) 30.9 See_Comment L [A utomated message] The system Can[employer] generated this result transmitted ref erence range: 32.3 - 3 6.5 GM/DL. The refe rence range was not u sed to interpret this result as normal/abnor mal. Hematocrit (test code = 27.2 % 40.1-51 L 4544-3) MCV (test code = 787-2) 104.6 fL 79-92.2 H MCH (test code = 785-6) 32.3 pg 25.7-32.2 H RDW (test code = 788-0) 16.7 % 11.6-14.4 H Platelets (test code = 139 See_Comment L [Aut omated message] 777-3) The system Can[employer] generated this result transmitted ref erence range: 150 - 45 0 K/CU MM. The referen ce range was not u sed to interpret this result as normal/abnor mal. MPV (test code = 10.6 fL 9.4-12.4 52998-8) nRBC (test code = 413) 0 See_Comment [Aut omated message] The system Can[employer] generated this result transmitted ref erence range: 0 - 0 /1 00 WBC. The refere nce range was not u sed to interpret this result as normal/abnor mal. Lab Interpretation (test Abnormal code = 02105-3) [facility] (HEMOGRAM ONLY)2019-12-19 05:34:00 Test Item Value Reference [...] 0-0 (BEAKER) (test code = 413) POCT-GLUCOSE [id number] 21:12:00 Test Item Value Reference Range Interpretation Comments POC-GLUCOSE METER 144 mg/dL 70-110 H : TESTED A T [facility] [address] (BEAKER) (test code = [facility], [facility]8) [address]: Size Worker/Techni rigoberto ID = [id number] for CESAR FIORE POCT-GLUCOSE [id number] 17:08:00 Test Item Value Reference Range Interpretation Comments POC-GLUCOSE METER 104 mg/dL 70-110 : TESTED A T [facility] [address] (BEAKER) (test code = [facility], [facility]8) [address]: Size Worker/Techni rigoberto ID = [id number] for PETEY RIVAS POCT-GLUCOSE [id number] 11:28:00 Test Item Value Reference Range Interpretation Comments POC-GLUCOSE METER 172 mg/dL 70-110 H : TESTED A T [facility] [address] (BEAKER) (test code = [facility], [facility]8) [address]: Size Worker/Techni rigoberto ID = [id number] for PETEY RIVAS POCT-GLUCOSE [id number] 07:50:00 Test Item Value Reference Range Interpretation Comments POC-GLUCOSE METER 123 mg/dL 70-110 H : TESTED A T [facility] [address] (BEAKER) (test code = [facility], [facility]8) [address]: Size Worker/Techni rigoberto ID = [id number] for PETEY RIVAS BASIC METABOLIC [id number] 06:58:00 Test Item Value Reference Range Interpretation [...] 697) EGFR (BEAKER) (test 53 mL/min/1.73 ESTIMA BRINA GFR IS code = 1092) sq m NOT ACCURATE CREATININE CLEARANCE IN PREDICTING GLOMERULAR FILTRATION RATE . ESTIMATED GFR I S NOT APPLICABLE FOR DIALYSIS PATIEN TS. Size Worker ID - [id number] 06:58:00 Test Item Value Reference Range Interpretation Comments MAGNESIUM (BEAKER) (test code = 2.1 mg/dL 1.6-2.6 627) Size Worker ID - [id number] 06:58:00 Test Item Value Reference Range Interpretation Comments PHOSPHORUS (BEAKER) (test code = 2.5 mg/dL 2.3-4.7 604) Size Worker ID - [id number] (HEMOGRAM ONLY)2019-12-18 06:28:00 Test [...] 0-0 (BEAKER) (test code = 413) POCT-GLUCOSE [id number] 21:37:00 Test Item Value Reference Range Interpretation Comments POC-GLUCOSE METER 145 mg/dL 70-110 H : TESTED A T [facility] [address] (BEAKER) (test code = [facility], 153) [address]: Size Worker/Techni rigoberto ID = [id number] for CESAR FIORE POCT-GLUCOSE [id number] 16:17:00 Test Item Value Reference Range Interpretation Comments POC-GLUCOSE METER 154 mg/dL 70-110 H : TESTED A T [facility] [address] (BEAKER) (test code = [facility], 1538) [address]: Size Worker/Techni rigoberto ID = [id number] for MARIYA HERR, TYNEKA POCT-GLUCOSE [id number] 12:11:00 Test Item Value Reference Range Interpretation Comments POC-GLUCOSE METER 150 mg/dL 70-110 H : TESTED A T [facility] [address] (BEAKER) (test code = [facility], 1538) [address]: Size Worker/Techni rigoberto ID = [id number] for MARIYA HERR, DIVINENEKA POCT-GLUCOSE [id number] 08:07:00 Test Item Value Reference Range Interpretation Comments POC-GLUCOSE METER 132 mg/dL 70-110 H : TESTED A T [facility] 6720 (BEAKER) (test code = [facility], 1538) [address]: Size Worker/Techni rigoberto ID = [id number] for [place] TRIXIEIA, TYNEKA BASIC METABOLIC [id number] 06:38:00 Test Item Value Reference Range Interpretation [...] 697) EGFR (BEAKER) (test 56 mL/min/1.73 ESTIMA BRINA GFR IS code = 1092) sq m NOT ACCURATE CREATININE CLEARANCE IN PREDICTING GLOMERULAR FILTRATION RATE . ESTIMATED GFR I S NOT APPLICABLE FOR DIALYSIS PATIEN TS. Size Worker ID - FOYBDUAFYCQZDD8048-97-64 06:38:00 Test Item Value Reference Range Interpretation Comments MAGNESIUM (BEAKER) (test code = 2.0 mg/dL 1.6-2.6 627) Size Worker ID - PBTQMYIORHGEPOM9556-12-65 06:38:00 Test Item Value Reference Range Interpretation Comments PHOSPHORUS (BEAKER) (test code = 1.9 mg/dL 2.3-4.7 L 604) Size Worker ID - EDASICBC (HEMOGRAM ONLY)2019-12-17 06:07:00 Test [...] 0-0 (BEAKER) (test code = 413) POCT-GLUCOSE [id number] 21:27:00 Test Item Value Reference Range Interpretation Comments POC-GLUCOSE METER 172 mg/dL 70-110 H : TESTED A T [facility] 6720 (BEAKER) (test code = [facility], 153) 63664: Size Worker/Techni rigoberto ID = [id number] for ANGELINE MCDANIELS SE POCT-GLUCOSE [id number] 16:32:00 Test Item Value Reference Range Interpretation Comments POC-GLUCOSE METER 171 mg/dL 70-110 H : TESTED A T [facility] 6720 (BEAKER) (test code = [facility], 1538) 60589: Size Worker/Techni rigoberto ID = [id number] for [place] LLIAMS, TYNEKA POCT-GLUCOSE [id number] 12:16:00 Test Item Value Reference Range Interpretation Comments POC-GLUCOSE METER 157 mg/dL 70-110 H : TESTED A T [facility] 6720 (BEAKER) (test code = [facility], 153) 81259: Size Worker/Techni rigoberto ID = [id number] for [place] LLIAMS, TYNEKA [id number] 11:13:00 Test Item Value Reference Range Interpretation Comments ACTIVATED CLOTTING TIME 120 sec : 74 -137 seconds, (BEAKER) (test code = Baseli ne: TESTED AT 441) [address], [facility] 30: Size Worker/Techni rigoberto ID = [id number] for PABLO ROGERS N [id number] 11:13:00 Test Item Value Reference Range Interpretation Comments ACTIVATED CLOTTING TIME 268 sec : 74 -137 seconds, (BEAKER) (test code = Baseli ne: TESTED AT 441) [address], [facility] 30: Size Worker/Techni rigoberto ID = [id number] for CA STRO, JUVE [id number] 11:13:00 Test Item Value Reference Range Interpretation Comments ACTIVATED CLOTTING TIME 230 sec : 74 -137 seconds, (BEAKER) (test code = Baseli ne: TESTED AT 441) [address], [facility] 30: Size Worker/Techni rigoberto ID = [id number] for CA STRO, JUVE Urine [id number] 09:17:00 Test Item Value Reference Range Interpretation Comments Result (test code = 6463-4) No growth [facility] [id number] 07:57:00 Test Item Value Reference Range Interpretation Comments POC-GLUCOSE METER 126 mg/dL 70-110 H : TESTED A T [facility] 6720 (BEAKER) (test code = [place], 1538) [address]: Size Worker/Techni rigoberto ID = [id number] for ZOYA STOCKTON [id number] 06:40:00 Test Item Value Reference Range Interpretation Comments MAGNESIUM (BEAKER) (test code = 1.9 mg/dL 1.6-2.6 627) Size Worker ID - MARIELA [id number] 06:40:00 Test Item Value Reference Range Interpretation Comments PHOSPHORUS (BEAKER) (test code = 1.6 mg/dL 2.3-4.7 L 604) Size Worker ID - MARIELA MBASIC METABOLIC [id number] 06:40:00 Test Item Value Reference Range Interpretation [...] 697) EGFR (BEAKER) (test 58 mL/min/1.73 ESTIMA BRINA GFR IS code = 1092) sq m NOT ACCURATE CREATININE CLEARANCE IN PREDICTING GLOMERULAR FILTRATION RATE . ESTIMATED GFR I S NOT APPLICABLE FOR DIALYSIS PATIEN TS. Size Worker ID - MARIELA MSpecimen slightly [id number] 06:06:00 Test Item Value Reference Range Interpretation Comments PTT (test code = 39.6 See_Comment H [Automated message] 87209-5) The system Can[employer] generated this result transmitted ref erence range: 22.5 - 3 6.0 seconds. The reference range was not used to int erpret this result as normal/abnormal . Lab Interpretation (test Abnormal code = 09455-0) [facility]APTT[facility] 06:06:00 Test Item Value Reference Range Interpretation [...] 0-0 (BEAKER) (test code = 413) POCT-GLUCOSE [id number] 21:32:00 Test Item Value Reference Range Interpretation Comments POC-GLUCOSE METER 181 mg/dL 70-110 H : TESTED A T [facility] 6720 (BEAKER) (test code = [place], 1538) [address]: Size Worker/Techni rigoberto ID = [id number] for ANGELINE MCDANIELS SE [id number] 05:46:00 Test Item Value Reference Range Interpretation Comments MAGNESIUM (BEAKER) (test code = 2.1 mg/dL 1.6-2.6 627) Size Worker ID - MARIELA RSDSLVPBKFQ8649-90-36 05:46:00 Test Item Value Reference Range Interpretation Comments PHOSPHORUS (BEAKER) (test code = 2.2 mg/dL 2.3-4.7 L 604) Size Worker ID - MARIELA MBASIC METABOLIC [id number] 05:46:00 Test Item Value Reference Range Interpretation [...] 697) EGFR (BEAKER) (test 46 mL/min/1.73 ESTIMA BRINA GFR IS code = 1092) sq m NOT ACCURATE CREATININE CLEARANCE IN PREDICTING GLOMERULAR FILTRATION RATE . ESTIMATED GFR I S NOT APPLICABLE FOR DIALYSIS PATIEN TS. Size Worker ID - MARIELA MSpecimen slightly [id number] 05:09:00 Test Item Value Reference Range Interpretation [...] 0-0 (BEAKER) (test code = 413) Prepare [id number] 23:54:00 Test Item Value Reference Range Interpretation Comments Unit ABO (test code = A Pos 1457939) UNIT NUMBER (test code = [id number] 934-0) Status (test code = 7147361) WORK IN PROGRESS Blood Bank Product (test RED BLOOD CELLS code = 2263) PRODUCT CODE (test code = C6027P12 933-2) CROSSMATCH (test code = INCOMPATIBLE 2264) [facility] CenterPO[facility] [id number] 22:46:00 Test Item Value Reference Range Interpretation Comments POC-GLUCOSE METER 169 mg/dL 70-110 H : TESTED A T [facility] 6720 (BEAKER) (test code = [place], 1538) [address]: Size Worker/Techni rigoberto ID = [id number] for Braden manohar Myesha [id number] 21:21:00 Test Item Value Reference Range Interpretation Comments PARTIAL THROMBOPLASTIN TIME 77.7 seconds 22.5-36.0 H (BEAKER) (test code = 760) POCT-GLUCOSE [id number] 18:17:00 Test Item Value Reference Range Interpretation Comments POC-GLUCOSE METER 150 mg/dL 70-110 H : TESTED A T [facility] 6720 (BEAKER) (test code = [facility] [place], 1538) [address]: Size Worker/Techni rigoberto ID = [id number] for Braden nns, Dianca [id number] 15:04:00 Test Item Value Reference Range Interpretation Comments PARTIAL THROMBOPLASTIN TIME 77.0 seconds 22.5-36.0 H (BEAKER) (test code = 760) [id number] 14:33:00 Test Item Value Reference Range Interpretation Comments MAGNESIUM (BEAKER) 2.3 mg/dL 1.6-2.6 Specimen slightly (test code = 627) hemolyzed Size Worker ID - FEB CBASIC METABOLIC [id number] 14:33:00 Test Item Value Reference Range Interpretation [...] 697) EGFR (BEAKER) (test 40 mL/min/1.73 ESTIMA BRINA GFR IS code = 1092) sq m NOT ACCURATE CREATININE CLEARANCE IN PREDICTING GLOMERULAR FILTRATION RATE . ESTIMATED GFR I S NOT APPLICABLE FOR DIALYSIS PATIEN TS. Size Worker ID - FEB CSpecimen moderately ictericPOCT-GLUCOSE [id number] 13:59:00 Test Item Value Reference Range Interpretation Comments POC-GLUCOSE METER 246 mg/dL 70-110 H : TESTED A T [facility] 6720 (BEAKER) (test code = [facility] [place], 1538) 99798: Size Worker/Techni rigoberto ID = [id number] for CASEY SANFORD Arterial doppler legs pfbwnmyxi3538-93-61 09:47:08Ejection [facility]ractionSID[facility] E[facility]ART[facility] MKCKESSON CPACSRight Impression1. The [...] + + + + + + !Prox POULTRY SLAUGHTERER ! !143 ! ! ! !0 ! ! ! + + + + + + + + + + !Mid POULTRY SLAUGHTERER ! !23.6 ! ! ! !0 ! ! ! + + + + + + + + + + !Dist POULTRY SLAUGHTERER ! !0 ! ! ! !0 ! [...] Extremity Arterial Duplex Demographics Patient Name IDANIA MARIN Date of Study 12/13/2019 DEBORAH III [id number] Age 74 Visit Number [id number] GenderMale Accession Number [id number] Date of 1945 [facility] Physician Erp Business Analyst Cm Anderson RVS Interpreting Cyndi Pastor RVT [...] + + + + + + !Prox POULTRY SLAUGHTERER ! !143 ! ! ! !0 ! ! ! + + + + + + + + + + !Mid POULTRY SLAUGHTERER ! !23.6 ! ! ! !0 !! ! + + +--------- + + + + + + + !Dist POULTRY SLAUGHTERER ! !0 ! ! ! !0 ! [...] + + + + + + +[facility](Ankle/Brachial Index)2019-12-14 09:46:50Ejection FractionSIDAHO FALL[facility] ECHO HEARTLAB MKCKESSON CPACSRight Impression1. The posterior [...] Extremity Arterial Procedure Demographics Patient Name IDANIA MARIN Date of Study 12/13/2019 DEBORAH III Age 74 Visit Number [id number] Gender Male Accession Number [id number] Date of 1945 Referring [facility] Room Number 2C20 Physician Erp Business Analyst Cm Anderson RVS Interpreting Cyndi Pastor RVT [...] measured in cm/s ;Diameters are [facility] in [facility] [id number] 09:12:00 Test Item Value Reference Range Interpretation Comments POC-GLUCOSE METER 161 mg/dL 70-110 H : TESTED A T [facility] 6720 ([employer]) (test code = [place], 1538) [address]: Size Worker/Techni rigoberto ID = [id number] for JAMES OSBORNE RAD, CHEST, 1 VIEW, NON [id number] 08:16:00Reason for exam:->post-extubationShould this be performed at the bedside?->Yes [facility] DEBORAH : 1945 Sex: MFINAL REPORT Chest, one [...] having abdominal pain, consider a KUB. Signed: Rai Almendarez Verified Date/Time: 12/14/2019 08:16:23 Reading Location: [address] Body Reading Room XR chest 1 view portable / [id number] 08:16:00 Interface, External Ris In - 12/14/2019 [...] having abdominal pain, consider a KUB. Signed: Rai Almendarez Verified Date /Time: 12/14/2019 08:16:23 Reading Location: [address] Body Reading Room [facility]APTT2020-[facility] 08:12:00 Test Item Value Reference Range Interpretation Comments PARTIAL THROMBOPLASTIN TIME 62.4 seconds 22.5-36.0 H (BEAKER) (test code = 760) [id number] 05:48:00 Test Item Value Reference Range Interpretation Comments PARTIAL THROMBOPLASTIN TIME 148.8 seconds 22.5-36.0 H (BEAKER) (test code = 760) Blood gas, [id number] 05:30:00 Test Item Value Reference Range Interpretation Comments pH, Arterial (test code 7.39 7.35-7.45 = 2744-1) pCO2, Arterial (test 36 See_Comment [Autom ated code = 2019-8) message] The system which generated this result transmitted reference range : 35 - 45 mm Hg. The reference range was not used to interpret this result as normal/abnormal . pO2, Arterial (test 112 See_Comment H [Automa brina code = 2703-7) message] The system which generated this result transmitted reference range : 80 - 90 mm Hg. The reference range was not used to interpret this result as normal/abnormal . O2 Sat, Arterial (test 97.8 % 96-97 H code = 2708-6) HCO3, Arterial (test 21 mmol/L 21-29 code = 1960-4) Base Excess, Arterial -3.4 mmol/L -2-3 L (test code = 1925-7) Patient Temperature 38.4 (test code = 8310-5) FIO2 (test code = 1819) 60 Lab Interpretation Abnormal (test code = 90604-1) [facility] CenterBLOOD GAS, [id number] 05:30:00 Test Item Value Reference Range Interpretation [...] WBC 0-0 (BEAKER) (test code = 413) [id number] 04:00:00 Test Item Value Reference Range Interpretation Comments MAGNESIUM (BEAKER) (test code = 2.3 mg/dL 1.6-2.6 627) Size Worker ID - [id number] 04:00:00 Test Item Value Reference Range Interpretation Comments PHOSPHORUS (BEAKER) (test code = 3.4 mg/dL 2.3-4.7 604) Size Worker ID - EDASIBASIC METABOLIC [id number] 04:00:00 Test Item Value Reference Range Interpretation [...] 697) EGFR (BEAKER) (test 39 mL/min/1.73 ESTIMA BRINA GFR IS code = 1092) sq m NOT ACCURATE CREATININE CLEARANCE IN PREDICTING GLOMERULAR FILTRATION RATE . ESTIMATED GFR I S NOT APPLICABLE FOR DIALYSIS PATIEN TS. Size Worker ID - EDASISpecimen slightly ictericRAD, CHEST, 1 VIEW, NON DEPT 2019-12-14 00:36:00Reason for exam:->Post-opShould this be performed at the bedside?->[facility] : 1945 Sex: MFINAL REPORT RAD, [...] Stable contours.Additional findings: None. Signed: Vamsi Foster Verified Date/Time: 12/14/2019 00:36:00 [id number] 23:58:00 Test Item Value Reference Range Interpretation Comments PARTIAL THROMBOPLASTIN TIME 42.6 seconds 22.5-36.0 H (KISRTEN) (test code = 760) BASIC METABOLIC [id number] 23:58:00 Test Item Value Reference Range Interpretation [...] 697) EGFR (BEAKER) (test 42 mL/min/1.73 ESTIMA BRINA GFR IS code = 1092) sq m NOT ACCURATE CREATININE CLEARANCE IN PREDICTING GLOMERULAR FILTRATION RATE . ESTIMATED GFR I S NOT APPLICABLE FOR DIALYSIS PATIEN TS. Size Worker ID - [id number] 23:58:00 Test Item Value Reference Range Interpretation Comments MAGNESIUM (BEAKER) (test code = 2.6 mg/dL 1.6-2.6 627) Size Worker ID - [id number] 23:58:00 Test Item Value Reference Range Interpretation Comments PHOSPHORUS (BEAKER) (test code = 4.1 mg/dL 2.3-4.7 604) Size Worker ID - DBProthrombin time/[id number] 23:57:00 Test Item Value Reference Interpretation Comments Range Protime (test code = 17.6 See_Comment H [Autom ated 9222-2) message] The system which generated this result transmitted reference range : 11.9 - 14.2 seconds. The reference range was not used to interpret this result as normal/abnormal . INR (test code = 1.49 See_Comment [Automated 4111-6) message] The system which generated this result transmitted reference range : <=5.90. The reference range was not used to interpret this result as normal/abnormal . AMRITA (test code = Effective 07/04/2018: AMRITA) PT Reference Range ChangeNew: 11.9-14.2 Previous: 11.7-14.7 RECOMMENDED COUMADIN/WARFARIN INR THERAPY RANGESSTANDARD DOSE: 2.0-3.0 Includes: PROPHYLAXIS for venous thrombosis, systemic embolization; TREATMENT for venous thrombosis and/or pulmonary embolus.HIGH RISK: Target INR is 2.5-3.5 for patients wiht mechanical heart valves. Lab Interpretation Abnormal (test code = 67150-8) [facility] CenterPROTHROMBIN TIME/[id number] 23:57:00 Test Item Value Reference Range Interpretation [...] 0-0 (BEAKER) (test code = 413) POCT-GLUCOSE [id number] 23:36:00 Test Item Value Reference Range Interpretation Comments POC-GLUCOSE METER 158 mg/dL 70-110 H : TESTED A T [facility] 6720 (BEAKER) (test code = [place], 1538) [address]: Size Worker/Techni rigoberto ID = [id number] for HERON ROCKWELL BLOOD GAS, [id number] 23:32:00 Test Item Value Reference Range Interpretation [...] (BEAKER) (test code = 1819) 60.0 Calcium, [id number] 23:30:00 Test Item Value Reference Range Interpretation Comments Calcium, Ion (test code = 1994-3) 1.20 mmol/L 1.12-1.27 pH, Blood (test code = 11959-6) 7.31 [facility] CenterCALCIUM, [id number] 23:30:00 Test Item Value Reference Range Interpretation Comments CALCIUM IONIZED (BEAKER) (test 1.20 mmol/L 1.12-1.27 code = 698) PH, BLOOD (BEAKER) (test code = 7.31 1810) [id number] 21:55:00 Test Item Value Reference Range Interpretation Comments ACTIVATED CLOTTING TIME 125 sec : 74 -137 seconds, (BEAKER) (test code = Baseli ne: TESTED AT 441) [address], [facility] 30: Size Worker/Techni rigoberto ID = [id number] for MARY GIBBS [id number] 21:55:00 Test Item Value Reference Range Interpretation Comments ACTIVATED CLOTTING TIME 235 sec : 74 -137 seconds, (BEAKER) (test code = Baseli ne: TESTED AT 441) [place] [address] 30: Size Worker/Techni rigoberto ID = [id number] for GERBERRIDMARY FUENTES [id number] 21:55:00 Test Item Value Reference Range Interpretation Comments ACTIVATED CLOTTING TIME 241 sec : 74 -137 seconds, (BEAKER) (test code = Baseli ne: TESTED AT 441) [place] [address] 30: Size Worker/Techni rigoberto ID = [id number] for MARY GIBBS [id number] 21:55:00 Test Item Value Reference Range Interpretation Comments ACTIVATED CLOTTING TIME 241 sec : 74 -137 seconds, (BEAKER) (test code = Baseli ne: TESTED AT 441) [place] [address] 30: Size Worker/Techni rigoberto ID = [id number] for MARY GIBBS [id number] 21:55:00 Test Item Value Reference Range Interpretation Comments ACTIVATED CLOTTING TIME 246 sec : 74 -137 seconds, (BEAKER) (test code = Baseli ne: TESTED AT 441) [place] [address] 30: Size Worker/Techni rigoberto ID = [id number] for CA STRO, JUVE HGB/HCT (H&H)-Stat [id number] 20:53:00 Test Item Value Reference Range Interpretation Comments Hemoglobin (test code = 10.1 See_Comment L [Au tomated message] 786-4) The system Can[employer] generated this result transmitted ref erence range: 13.0 - 1 6.8 GM/DL. The refe rence range was not u sed to interpret this result as normal/abnor mal. Hematocrit (test code = 30.0 % 40-50 L 4544-3) Lab Interpretation (test Abnormal code = 80941-8) [facility] CenterGlucose-Stat [id number] 20:53:00 Test Item Value Reference Range Interpretation Comments Glucose (test code = 2345-7) 138 mg/dL 70-110 H Lab Interpretation (test code = Abnormal 37995-8) [facility] [id number] 20:53:00 Test Item Value Reference Range Interpretation Comments Sodium (test code = 2951-2) 138 meq/L 136-145 Lab Interpretation (test code = Normal 56873-7) [facility] CenterPotassium-Stat [id number] 20:53:00 Test Item Value Reference Range Interpretation Comments Potassium (test code = 2823-3) 4.0 meq/L 3.6-5.5 Lab Interpretation (test code = Normal 03578-6) [facility] [id number] 20:53:00 Test Item Value Reference Range Interpretation Comments SODIUM (BEAKER) (test code = 381) 138 meq/L 136-145 POTASSIUM-STAT [id number] 20:53:00 Test Item Value Reference Range Interpretation Comments POTASSIUM (BEAKER) (test code = 4.0 meq/L 3.6-5.5 379) CALCIUM, [id number] 20:53:00 Test Item Value Reference Range Interpretation Comments CALCIUM IONIZED (BEAKER) (test 1.16 mmol/L 1.12-1.27 code = 698) PH, BLOOD (BEAKER) (test code = 7.34 1810) BLOOD GAS, [id number] 20:53:00 Test Item Value Reference Range Interpretation [...] (BEAKER) (test code = 1819) 60.0 GLUCOSE-STAT [id number] 20:53:00 Test Item Value Reference Range Interpretation Comments GLUCOSE RANDOM (BEAKER) (test code 138 mg/dL 70-110 H = 652) HGB/HCT (H&H) - STAT [id number] 20:53:00 Test Item Value Reference Range Interpretation Comments HEMOGLOBIN (BEAKER) (test code = 10.1 GM/DL 13.0-16.8 L 410) HEMATOCRIT (BEAKER) (test code = 30.0 % 40.0-50.0 L 411) CALCIUM, [id number] 19:44:00 Test Item Value Reference Range Interpretation Comments CALCIUM IONIZED (BEAKER) (test 1.20 mmol/L 1.12-1.27 code = 698) PH, BLOOD (BEAKER) (test code = 7.36 1809) SODIUM NA-STAT [id number] 19:43:00 Test Item Value Reference Range Interpretation Comments SODIUM (BEAKER) (test code = 381) 138 meq/L 136-145 POTASSIUM-STAT [id number] 19:43:00 Test Item Value Reference Range Interpretation Comments POTASSIUM (BEAKER) (test code = 3.6 meq/L 3.6-5.5 379) BLOOD GAS, [id number] 19:43:00 Test Item Value Reference Range Interpretation [...] (BEAKER) (test code = 1819) 60.0 GLUCOSE-STAT [id number] 19:43:00 Test Item Value Reference Range Interpretation Comments GLUCOSE RANDOM (BEAKER) (test code 125 mg/dL 70-110 H = 652) HGB/HCT (H&H) - STAT [id number] 19:43:00 Test Item Value Reference Range Interpretation Comments HEMOGLOBIN (BEAKER) (test code = 6.4 GM/DL 13.0-16.8 L 410) HEMATOCRIT (BEAKER) (test code = 19.0 % 40.0-50.0 L 411) Lactic Acid, [id number] 18:50:00 Test Item Value Reference Range Interpretation Comments Lactate, Art (test code = 0.7 mmol/L 0.5-2.2 2874) AMRITA (test code = AMRITA) Size Worker ID - BS Lab Interpretation (test Normal code = 05097-9) [facility] CenterLACTIC ACID, [id number] 18:50:00 Test Item Value Reference Range Interpretation Comments LACTATE BLOOD ARTERIAL (2) 0.7 mmol/L 0.5-2.2 (BEAKER) (test code = 2874) Size Worker ID - BSCALCIUM, [id number] 18:29:00 Test Item Value Reference Range Interpretation Comments CALCIUM IONIZED (BEAKER) (test 1.07 mmol/L 1.12-1.27 L code = 698) PH, BLOOD (BEAKER) (test code = 7.31 1810) BLOOD GAS, [id number] 18:29:00 Test Item Value Reference Range Interpretation [...] (BEAKER) (test code = 1819) 68.0 POTASSIUM-STAT [id number] 18:29:00 Test Item Value Reference Range Interpretation Comments POTASSIUM (BEAKER) (test code = 3.4 meq/L 3.6-5.5 L 379) GLUCOSE-STAT [id number] 18:29:00 Test Item Value Reference Range Interpretation Comments GLUCOSE RANDOM (BEAKER) (test code 138 mg/dL 70-110 H = 652) HGB/HCT (H&H) - STAT [id number] 18:29:00 Test Item Value Reference Range Interpretation Comments HEMOGLOBIN (BEAKER) (test code = 8.9 GM/DL 13.0-16.8 L 410) HEMATOCRIT (BEAKER) (test code = 26.0 % 40.0-50.0 L 411) SODIUM NA-STAT [id number] 18:28:00 Test Item Value Reference Range Interpretation Comments SODIUM (BEAKER) (test code = 381) 138 meq/L 136-145 Manual [id number] 14:30:00 Test Item Value Reference Range Interpretation [...] = 486) AMRITA (test code = AMRITA) Size Worker ID - [id number] Lab Interpretation (test Abnormal code = 11996-2) [facility] with platelet count + manual [id number] 14:30:00 Test Item Value Reference Range Interpretation Comments WBC (test code = 6690-2) 64.8 See_Comment HH [A utomated message] The system [employer] generated this result transmitted ref erence range: 3.5 - 10 .5 K/L. The refe rence range was not u sed to interpret this result as normal/abnor mal. RBC (test code = 789-8) 2.93 See_Comment L [Au tomated message] The system Can[employer] generated this result transmitted ref erence range: 4.63 - 6 .08 M/L. The refe rence range was not u sed to interpret this result as normal/abnor mal. MCHC (test code = 786-4) 31.7 See_Comment L [A utomated message] The system Can[employer] generated this result transmitted ref erence range: 32.3 - 3 6.5 GM/DL. The refe rence range was not u sed to interpret this result as normal/abnor mal. Hematocrit (test code = 28.7 % 40.1-51 L 4544-3) MCV (test code = 787-2) 98.0 fL 79-92.2 H MCH (test code = 785-6) 31.1 pg 25.7-32.2 RDW (test code = 788-0) 17.4 % 11.6-14.4 H Platelets (test code = 172 See_Comment [Aut omated message] 777-3) The system Can[employer] generated this result transmitted ref erence range: 150 - 45 0 K/CU MM. The referen ce range was not u sed to interpret this result as normal/abnor mal. MPV (test code = 10.1 fL 9.4-12.4 10155-6) nRBC (test code = 413) 0 See_Comment [Aut omated message] The system Can[employer] generated this result transmitted ref erence range: 0 - 0 /1 00 WBC. The refere nce range was not u sed to interpret this result as normal/abnor mal. Lab Interpretation (test Abnormal code = 17449-4) [facility] CenterCBC WITH PLATELET COUNT + MANUAL [id number] 14:30:00 Test Item Value Reference Range Interpretation [...] MORPHOLOGY (BEAKER) (test code Normal = 486) Size Worker ID - [id number] with platelet count + automated [id number] 13:53:00 Test Item Value Reference Range Interpretation Comments WBC (test code = 6690-2) 67.7 See_Comment HH [A utomated message] The system Can[employer] generated this result transmitted ref erence range: 3.5 - 10 .5 K/L. The refe rence range was not u sed to interpret this result as normal/abnor mal. RBC (test code = 789-8) 2.72 See_Comment L [Au tomated message] The system Can[employer] generated this result transmitted ref erence range: 4.63 - 6 .08 M/L. The refe rence range was not u sed to interpret this result as normal/abnor mal. MCHC (test code = 786-4) 32.1 See_Comment L [A utomated message] The system Can[employer] generated this result transmitted ref erence range: 32.3 - 3 6.5 GM/DL. The refe rence range was not u sed to interpret this result as normal/abnor mal. Hematocrit (test code = 26.8 % 40.1-51 L 4544-3) MCV (test code = 787-2) 98.5 fL 79-92.2 H MCH (test code = 785-6) 31.6 pg 25.7-32.2 RDW (test code = 788-0) 17.5 % 11.6-14.4 H Platelets (test code = 155 See_Comment [Aut omated message] 777-3) The system [employer] generated this result transmitted ref erence range: 150 - 45 0 K/CU MM. The referen ce range was not u sed to interpret this result as normal/abnor mal. MPV (test code = 10.4 fL 9.4-12.4 61604-2) nRBC (test code = 413) 0 See_Comment [Aut omated message] The system [employer] generated this result transmitted ref erence range: 0 - 0 /1 00 WBC. The refere nce range was not u sed to interpret this result as normal/abnor mal. Lab Interpretation (test Abnormal code = 32455-4) [facility] W/PLT COUNT & AUTO [id number] 13:53:00 Test Item Value Reference Range Interpretation [...] (BEAKER) (test code = 413) BASIC METABOLIC [id number] 12:20:00 Test Item Value Reference Range Interpretation [...] 697) EGFR (BEAKER) (test 42 mL/min/1.73 ESTIMA BRINA GFR IS code = 1092) sq m NOT ACCURATE CREATININE CLEARANCE IN PREDICTING GLOMERULAR FILTRATION RATE . ESTIMATED GFR I S NOT APPLICABLE FOR DIALYSIS PATIEN TS. Size Worker ID - TI [id number] 12:20:00 Test Item Value Reference Range Interpretation Comments MAGNESIUM (BEAKER) (test code = 1.9 mg/dL 1.6-2.6 627) Size Worker ID - TI [id number] 12:20:00 Test Item Value Reference Range Interpretation Comments PHOSPHORUS (BEAKER) (test code = 3.8 mg/dL 2.3-4.7 604) Size Worker ID - TI [id number] 12:02:00 Test Item Value Reference Range Interpretation Comments PARTIAL THROMBOPLASTIN TIME 36.1 seconds 22.5-36.0 H (BEAKER) (test code = 760) PROTHROMBIN TIME/[id number] 12:01:00 Test Item Value Reference Range Interpretation [...] mechanical heart valves.Urinalysis w/Microscopic + Reflex to [id number] 11:56:00 Test Item Value Reference Range Interpretation Comments Color, UA (test code Light Yellow = 5778-6) Clarity, UA (test Cloudy code = 5767-9) Specific [place], UA 1.036 1.001-1.035 H (test code = 5811-5) pH, UA (test code = 6.0 5.0-8.0 5803-2) Protein, UA (test 30 mg/dL Negative A code = 79965-6) Glucose, UA (test Negative Negative code = 365) Ketones, UA (test Negative Negative code = 2514-8) Bilirubin, UA (test Negative Negative code = 21765-3) Blood, UA (test code Small Negative A = 04100-3) Nitrite, UA (test Negative Negative code = 5802-4) Leukocytes, UA (test Large Negative A code = 5799-2) Urobilinogen, UA 0.2 mg/dL 0.2-1 (test code = 92146-1) RBC, UA (test code = 18 See_Comment [Autom ated 54016-9) message] The system which generated this result transmit brina reference range : /HPF. The reference range was not used to interpret this result as normal/abnormal . WBC, UA (test code = 769 See_Comment [Autom ated 5821-4) message] The system which generated this result transmit brina reference range : /HPF. The reference range was not used to interpret this result as normal/abnormal . Bacteria, UA (test Rare code = 06584-7) Specimen Source (test code = 2795) AMRITA (test code = AMRITA) Size Worker ID - [auto]Size Worker ID - tech Lab Interpretation Abnormal (test code = 88170-1) [facility] REFLEX URINE [id number] 11:56:00 Test Item Value Reference Range Interpretation [...] Rare 517) SOURCE(BEAKER) (test code = 2795) Size Worker ID - [auto]Size Worker ID - techRAD, CHEST, 1 VIEW, NON [id number] 11:28:00Reason for exam:->Post-opShould this be performed at the bedside?->YesMORNINGSIDE HOSPITALName: TANIA IDANIAGIANNA CABRERA : 1945 Sex: MFINAL REPORT CLINICAL HISTORY: Post-op TECHNIQUE: 1 view of the chest. COMPARISON: 12/11/2019 IMPRESSION: There are new mildly prominent lung markings in the right upper lung and bilateral lower lung zones. There are no significant appearing pleural effusions. The cardiomediastinal silhouette is magnified by technique. Signed: Vane Pretty MDReport Verified Date/Time: 12/13/2019 11:28:43 Reading Location: [facility] Radiology Reading Room SODIUM NA- STAT [id number] 08:38:00 Test Item Value Reference Range Interpretation Comments SODIUM (BEAKER) (test code = 381) 138 meq/L 136-145 CALCIUM, [id number] 08:38:00 Test Item Value Reference Range Interpretation Comments CALCIUM IONIZED (BEAKER) (test 1.10 mmol/L 1.12-1.27 L code = 698) PH, BLOOD (BEAKER) (test code = 7.41 1810) BLOOD GAS, [id number] 08:38:00 Test Item Value Reference Range Interpretation [...] (BEAKER) (test code = 1819) 50.0 POTASSIUM-STAT [id number] 08:38:00 Test Item Value Reference Range Interpretation Comments POTASSIUM (BEAKER) (test code = 3.2 meq/L 3.6-5.5 L 379) GLUCOSE-STAT [id number] 08:38:00 Test Item Value Reference Range Interpretation Comments GLUCOSE RANDOM (BEAKER) (test code 148 mg/dL 70-110 H = 652) HGB/HCT (H&H) - STAT [id number] 08:38:00 Test Item Value Reference Range Interpretation Comments HEMOGLOBIN (BEAKER) (test code = 9.0 GM/DL 13.0-16.8 L 410) HEMATOCRIT (BEAKER) (test code = 26.0 % 40.0-50.0 L 411) Hemoglobin [id number] 08:26:00 Test Item Value Reference Range Interpretation Comments Hemoglobin A1C (test 5.2 % 4.3-6.1 code = 4548-4) AMRITA (test code = AMRITA) Please recheckPlease recheck Lab Interpretation Normal (test code = 15590-9) [facility] CenterHEMOGLOBIN [id number] 08:26:00 Test Item Value Reference Range Interpretation Comments HEMOGLOBIN A1C (BEAKER) (test code = 5.2 % 4.3-6.1 368) Please recheckPlease recheckBASIC METABOLIC [id number] 05:01:00 Test Item Value Reference Range Interpretation [...] 697) EGFR (BEAKER) (test 38 mL/min/1.73 ESTIMA BRINA GFR IS code = 1092) sq m NOT ACCURATE CREATININE CLEARANCE IN PREDICTING GLOMERULAR FILTRATION RATE . ESTIMATED GFR I S NOT APPLICABLE FOR DIALYSIS PATIEN TS. Size Worker ID - [id number] 05:01:00 Test Item Value Reference Range Interpretation Comments MAGNESIUM (BEAKER) (test code = 2.0 mg/dL 1.6-2.6 627) Size Worker ID - CEVOLOIQBRJGETZ7694-02-07 05:01:00 Test Item Value Reference Range Interpretation Comments PHOSPHORUS (BEAKER) (test code = 3.8 mg/dL 2.3-4.7 604) Size Worker ID - EDASIPOCT-GLUCOSE [id number] 21:38:00 Test Item Value Reference Range Interpretation Comments POC-GLUCOSE METER 216 mg/dL 70-110 H : TESTED Iris T [facility] [address] (BEAKER) (test code = [place], 1538) [address]: Size Worker/Techni rigoberto ID = [id number] for Re yes, Sairy PROTHROMBIN TIME/[id number] 19:09:00 Test Item Value Reference Range Interpretation [...] for patients wiht mechanical heart valves.BASIC METABOLIC [id number] 17:03:00 Test Item Value Reference Range Interpretation [...] 697) EGFR (BEAKER) (test 38 mL/min/1.73 ESTIMA BRINA GFR IS code = 1092) sq m NOT ACCURATE CREATININE CLEARANCE IN PREDICTING GLOMERULAR FILTRATION RATE . ESTIMATED GFR I S NOT APPLICABLE FOR DIALYSIS PATIEN TS. Size Worker ID - BSPOCT-GLUCOSE [id number] 16:54:00 Test Item Value Reference Range Interpretation Comments POC-GLUCOSE METER 125 mg/dL 70-110 H : TESTED Iris Malin [facility] [address] (KIRSTEN) (test code = [place], 1538) [address]: Size Worker/Techni rigoberto ID = [id number] for PHYLLIS FIORE Carotid doppler [id number] 07:51:37Ejection FractionSLEH ECHO HEARTLAB MKCKESSON CPACSRight Impression1. There is [...] Carotid Duplex Study Demographics Patient Name IDANIA MARIN Date of Study 12/11/2019 DEBORAH III Age 74 Visit Number [id number] Gender Male Accession Number [id number] Date of 1945 Referring Casey Lo NP Room Number Physician Erp Business Analyst Peter Forbes T Interpreting Caryl Gao Physician ProcedureType of Study: [...] + + + - Additional Measurements:ICAPSV/CCAPSV 0.85.ICAEDV/CCAEDV 0.94.[facility])2019-12-11 21:52:00 Test Item Value Reference Range Interpretation Comments SARS-COV2/RT-PCR (test Negative Not Detected, Negative, code = 1925214) See external report for linked test SARS-COV-2 PERFORMING LAB [facility] GENEVIEVE (test code = 2535337) Negative result for this test determines that [...] Bazzi SARS-CoV-2 assay.Fact Sheet for Healthcare Providers:https://www.molecular.bazzi/nicky/ YZ_RHWL-NeZ-1_GNO_Axfl_Goqsn_25-486054.pdfFact Sheet for Healthcare Patients:https://www.molecular.ab hoang/nicky/UX_TRXN-ChY-3_Kslqcqx_Nzzv_Glwws_BW_07-492666A3.pdfPerforming Laboratory:[address] [address] Hepatitis B [id number] 19:59:00 Test Item Value Reference Range Interpretation Comments Hep B Core Total Ab Nonreactive Nonreactive (test code = 53243-9) Hep B S Ab (test <8.0 See_Comment [Automated code = 41264-6) message] The system which generated this result transmitted reference range : <8.0 mIU/mL. e reference range was not used to interpret this result as normal/abnormal . HBsAg Screen (test Nonreactive Nonreactive code = 5195-3) AMRITA (test code = Size Worker ID - AMRITA) ADMIN Lab Interpretation Normal (test code = 72505-4) [facility] CenterHEPATITIS B [id number] 19:59:00 Test Item Value Reference Range Interpretation Comments HEPATITIS B CORE TOTAL ANTIBODY Nonreactive Nonreactive (BEAKER) (test code = 497) HEPATITIS B SURFACE ANTIBODY < mIU/mL <8.0 (BEAKER) (test code = 647) HEPATITIS B SURFACE ANTIGEN (2) Nonreactive Nonreactive (BEAKER) (test code = 2585) Size Worker ID - ADMINHEMOGLOBIN [id number] 19:58:00 Test Item Value Reference Range Interpretation Comments HEMOGLOBIN A1C (BEAKER) (test code = 5.5 % 4.3-6.1 368) Received comment: User comments: Slide comments: Received comment: User comments: Slide comments:Hepatitis C [id number] 19:52:00 Test Item Value Reference Range Interpretation Comments Hepatitis C Ab (test code Nonreactive Nonreactive = 21645-9) AMRITA (test code = AMRITA) Size Worker ID - ADMIN Lab Interpretation (test Normal code = 41340-0) [facility] CenterHIV-1 Antigen with HIV-1/2 [id number] 19:52:00 Test Item Value Reference Range Interpretation Comments HIV-1 Antigen with HIV Nonreactive Nonreactive 1&2 Antibody (test code = 05521-5) AMRITA (test code = AMRITA) Size Worker ID - ADMIN Lab Interpretation (test Normal code = 82147-9) [facility] CenterHEDEACONESS HEALTH SYSTEMTIS C [id number] 19:52:00 Test Item Value Reference Range Interpretation Comments HEPATITIS C ANTIBODY (BEAKER) Nonreactive Nonreactive (test code = 367) Size Worker ID - ADMINHIV-1 ANTIGEN WITH HIV-1/2 [id number] 19:52:00 Test Item Value Reference Range Interpretation Comments HIV-1 ANTIGEN WITH HIV 1\\T\\2 Nonreactive Nonreactive ANTIBODY (2) (BEAKER) (test code = 2586) Size Worker ID - ADMINAntibody dabvzneavsmuxi6461-55-01 16:23:00 Test Item Value Reference Range Interpretation Comments ANTIBODY ID UNID IgGWARM (BEAKER) (test AUTO AB code = 2253) Antibody Consult SIGNED OUT Warm vitaliy lópez (test code = detected, ok to 2479) transfuse incom patible bloodElectronic Signature: Radhika Woo M.D. [facility](CELLAVISION MANUAL DIFF)2019-12-11 15:57:00 Test Item Value Reference [...] CONCENTRATION Adequate (CELLAVISION)(BEAKER) (test code = 3438) Size Worker ID - villagee Robles comments: Slide comments:CBC W/PLT COUNT & AUTO [id number] 15:28:00 Test Item Value Reference Range Interpretation [...] (test code = 413) Type and screen, [id number] 14:53:00 Test Item Value Reference Range Interpretation Comments ABO/RH AUTOMATED (BEAKER) (test A POSITIVE code = 2260) Ab Scrn (test code = 890-4) POSITIVE echo 1 [facility] CenterDirect AHG (JUAN J)/Direct [id number] 14:08:00 Test Item Value Reference Range Interpretation Comments Direct AHG-IGG (test code = 1006-6) POSITIVE 4+ Direct AHG-C3B, C3D (test code = POSITIVE Micro+ 1003-3) [facility] CenterRAD, CHEST, 2 [id number] 13:32:00Reason for Exam:->pre-opMORNINGSIDE HOSPITALName: IDANIA MARIN : 1945 Sex: MFINAL REPORT PA and Lateral views of the chest dated 12/11/2019 Clinical information: pre-op Comment: Heart is normal in size. Thoracic aorta is ectatic. Pulmonary vasculature is unremarkable. Lungs are clear. No pulmonary infiltrate or pleural effusion is present.Impression: No active cardiopulmonary disease. Signed: Vamsi Johns MDReport Verified Date/Time: 12/11/2019 13:32:39 Reading Location: [facility] Radiology Reading Room XR chest 2 [id number] 13:32:00Interface, External Ris In - 12/11/2019 1:34 PM CSTFINAL REPORT PA and Lateral views of the chest dated 12/11/2019 Clinical information: pre-op Comment: Heart is normal in size. Thoracic aorta is ectatic. Pulmonary vasculature is unremarkable. Lungs are clear. No pulmonary infiltrate or pleural effusion is present. Impression: No active cardiopulmonary disease. Signed: Vamsi Johns MDReport Verified Date/Time: 12/11/2019 13:32:39 Reading Location: [facility] Radiology Reading [facility] CenterBAS[facility] [id number] 12:30:00 Test Item Value Reference Range Interpretation [...] 697) EGFR (BEAKER) (test 38 mL/min/1.73 ESTIMA BRINA GFR IS code = 1092) sq m NOT ACCURATE CREATININE CLEARANCE IN PREDICTING GLOMERULAR FILTRATION RATE . ESTIMATED GFR I S NOT APPLICABLE FOR DIALYSIS PATIEN TS. Size Worker ID - QIYfjkwqt7434-05-15 11:26:00 Test Item Value Reference Range Interpretation Comments Albumin (test code = 4.1 g/dL 3.5-5 80242-0) AMRITA (test code = AMRITA) Size Worker ID - ADMIN Lab Interpretation (test Normal code = 10973-2) [facility] CenterAmylase2020-11-04 11:26:00 Test Item Value Reference Range Interpretation Comments Amylase (test code = 30 U/L 25-125 1798-8) AMRITA (test code = AMRITA) Size Worker ID - ADMIN Lab Interpretation (test Normal code = 39619-3) [facility] CenterBilirubin, adult [id number] 11:26:00 Test Item Value Reference Range Interpretation Comments Total Bilirubin (test code 0.9 mg/dL 0.2-1.2 = 1975-2) AMRITA (test code = AMRITA) Size Worker ID - ADMIN Lab Interpretation (test Normal code = 20636-7) [facility] CenterBilirubin, [id number] 11:26:00 Test Item Value Reference Range Interpretation Comments Bilirubin, Direct (test 0.4 mg/dL 0.1-0.5 code = 1968-7) AMRITA (test code = AMRITA) Size Worker ID - ADMIN Lab Interpretation (test Normal code = 99046-9) [facility] CenterLactate dehydrogenase (LDH)2019-12-11 11:26:00 Test Item Value Reference Range Interpretation Comments LDH (test code = 2532-0) 177 U/L 125-220 AMRITA (test code = AMRITA) Size Worker ID - ADMIN Lab Interpretation (test Normal code = 77570-5) [facility] CenterLipase2020-11-04 11:26:00 Test Item Value Reference Range Interpretation Comments Lipase (test code = 22 U/L 8-78 3040-3) AMRITA (test code = AMRITA) Size Worker ID - ADMIN Lab Interpretation (test Normal code = 29897-7) [facility] CenterAlkaline nwusyhmmepq6045-06-73 11:26:00 Test Item Value Reference Range Interpretation Comments Alkaline Phosphatase (test 93 U/L 40-150 code = 6768-6) AMRITA (test code = AMRITA) Size Worker ID - ADMIN Lab Interpretation (test Normal code = 62864-4) [facility] CenterProtein, [id number] 11:26:00 Test Item Value Reference Range Interpretation Comments Protein, Total (test 6.1 See_Comment [Autom ated code = 2885-2) message] The system which generated this result transmit brina reference range : 6.0 - 8.3 gm/dL . The reference range was not u sed to interpret th is result as normal/abnormal . AMRITA (test code = AMRITA) Size Worker ID - ADMIN Lab Interpretation Normal (test code = 85539-0) [facility] CenterAST (SGOT)2019-12-11 11:26:00 Test Item Value Reference Range Interpretation Comments AST (test code = 1920-8) 12 U/L 5-34 AMRITA (test code = AMRITA) Size Worker ID - ADMIN Lab Interpretation (test Normal code = 75643-2) [facility] CenterALT (SGPT)2019-12-11 11:26:00 Test Item Value Reference Range Interpretation Comments ALT (test code = 1742-6) 12 U/L 6-55 AMRITA (test code = AMRITA) Size Worker ID - ADMIN Lab Interpretation (test Normal code = 95680-6) [facility] CenterALKALINE [id number] 11:26:00 Test Item Value Reference Range Interpretation Comments ALKALINE PHOSPHATASE (BEAKER) (test 93 U/L 40-150 code = 346) Size Worker ID - ADMINPROTEIN, [id number] 11:26:00 Test Item Value Reference Range Interpretation Comments TOTAL PROTEIN (BEAKER) (test code = 6.1 gm/dL 6.0-8.3 770) Size Worker ID - ADMINAST (SGOT)2019-12-11 11:26:00 Test Item Value Reference Range Interpretation Comments AST (SGOT) (BEAKER) (test code = 353) 12 U/L 5-34 Size Worker ID - ADMINALT (SGPT)2019-12-11 11:26:00 Test Item Value Reference Range Interpretation Comments ALT (SGPT) (BEAKER) (test code = 347) 12 U/L 6-55 Size Worker ID - [id number] 11:26:00 Test Item Value Reference Range Interpretation Comments ALBUMIN (BEAKER) (test code = 1145) 4.1 g/dL 3.5-5.0 Size Worker ID - [id number] 11:26:00 Test Item Value Reference Range Interpretation Comments AMYLASE (BEAKER) (test code = 349) 30 U/L 25-125 Size Worker ID - ADMINBILIRUBIN, ADULT [id number] 11:26:00 Test Item Value Reference Range Interpretation Comments BILIRUBIN TOTAL (BEAKER) (test code 0.9 mg/dL 0.2-1.2 = 377) Size Worker ID - ADMINBILIRUBIN, [id number] 11:26:00 Test Item Value Reference Range Interpretation Comments BILIRUBIN DIRECT (BEAKER) (test 0.4 mg/dL 0.1-0.5 code = 706) Size Worker ID - ADMINLACTATE DEHYDROGENASE (LDH)2019-12-11 11:26:00 Test Item Value Reference Range Interpretation Comments LACTATE DEHYDROGENASE (BEAKER) (test 177 U/L 125-220 code = 635) Size Worker ID - [id number] 11:26:00 Test Item Value Reference Range Interpretation Comments LIPASE (BEAKER) (test code = 749) 22 U/L 8-78 Size Worker ID - ADMINUrinalysis w/Byprbukzvbk3262-18-25 11:18:00 Test Item Value Reference Range Interpretation Comments Color, UA (test code Light Yellow = 5778-6) Clarity, UA (test Hazy code = 5767-9) Specific [place], UA 1.011 1.001-1.035 (test code = 5811-5) pH, UA (test code = 6.5 5.0-8.0 5803-2) Protein, UA (test 10 mg/dL Negative A code = 38327-9) Glucose, UA (test 1000 mg/dL Negative A code = 365) Ketones, UA (test Negative Negative code = 2514-8) Bilirubin, UA (test Negative Negative code = 64981-1) Blood, UA (test code Small Negative A = 86019-5) Nitrite, UA (test Negative Negative code = 5802-4) Leukocytes, UA (test Large Negative A code = 5799-2) Urobilinogen, UA 0.2 mg/dL 0.2-1 (test code = 78945-4) RBC, UA (test code = 4 See_Comment [Autom ated 93471-3) message] The system which generated this result transmit brina reference range : /HPF. The reference range was not used to interpret this result as normal/abnormal . WBC, UA (test code = 152 See_Comment [Autom ated 5821-4) message] The system which generated this result transmit brina reference range : /HPF. The reference range was not used to interpret this result as normal/abnormal . Mucus (test code = Rare 8247-9) Squam Epithel, UA <1 See_Comment [Automate d (test code = 33312-6) messag e] The system which generated this result transmit brina reference range : /HPF. The reference range was not used to interpret this result as normal/abnormal . Specimen Source (test code = 2795) AMRITA (test code = AMRITA) Size Worker ID - [auto]Size Worker ID - tech Lab Interpretation Abnormal (test code = 75234-6) [facility] CenterURINALYSIS W/ [id number] 11:18:00 Test Item Value Reference Range Interpretation [...] = 516) SOURCE(BEAKER) (test code = 2795) Size Worker ID - [auto]Size Worker ID - [id number] 11:14:00 Test Item Value Reference Range Interpretation Comments PARTIAL THROMBOPLASTIN TIME 32.6 seconds 22.5-36.0 (BEAKER) (test code = 760) PROTHROMBIN TIME/[id number] 11:13:00 Test Item Value Reference Range Interpretation [...] is2.5-3.5 for patients wiht mechanical heart valves.Reticulocyte [id number] 11:12:00 Test Item Value Reference Range Interpretation Comments % Retic (test code = 3.3 % 0.5-1.8 H 76214-6) AMRITA (test code = AMRITA) Size Worker ID - [id number] Lab Interpretation (test Abnormal code = 56990-6) [facility] CenterRETICULOCYTE [id number] 11:12:00 Test Item Value Reference Range Interpretation Comments RETICULOCYTE COUNT PCT (BEAKER) (test 3.3 % 0.5-1.8 H code = 575) Size Worker ID - [id number] Funct Lab Puillxxpbr0651-07-43 10:30:00Bianca Ly, BURN OUT TENDER LACE, TRAFFIC DIVISION COMMANDING OFFICER 11/21/2019 12:31 [facility] PFT CHARTING REPORT Infection Control/Hand Hygiene procedures followed throughout the encounter with patient: YesPatient Identification Method: Patient name verified on armband, and Medical record on armband, Is the order complete?: Yes Account ID#: [id number] Name: Idania Marin IIIBirthdate: 1945 Age: 74 y.o. Sex: [...] and patient released from the lab without adverseoutcome.[facility] CenterCT, CTA, [id number] 14:08:00Part of CTA Chest, ABD and Pelvis [...] nonobstructing atherosclerotic changes throughout the abdominal aorta. Colorman dimensions of the thoracic aorta are as [...] appear normal. The spleen is mildly enlarged, caxjjbvmy67 cm in length in the craniocaudal dimension. [...] correlate with this patient bladder cancer. Signed: Holland aHmilton MDReport Verified Date/Time: 11/05/2019 14:08:15 Reading Location: [facility] Reading Room [address] [place] [address] CT, CTA, [id number] 14:08:00Unlisted Reason for Exam - Click Yes [...] nonobstructing atherosclerotic changes throughout the abdominal aorta. Colorman dimensions of the thoracic aorta are as [...] appear normal. The spleen is mildly enlarged, kjiwdupbo89 cm in length in the craniocaudal dimension. [...] correlate with this patient bladder cancer. Signed: Holland Hamilton MDReport Verified Date/Time: 11/05/2019 14:08:15 Reading Location: [facility] Reading Room [address] [place] [address] CT/CTA abdomen & pelvis - For [id number] 14:08:00Interface, External Ris In - 11/05/2019 2:10 [...] nonobstructing atherosclerotic changes throughout the abdominal aorta. Colorman dimensions of the thoracic aortaare as follows: [...] correlate with this patient bladder cancer. Signed: Holland Hamilton MDReport Verified Date/Time: 11/05/2019 14:08:15 Reading Location: [facility] Reading Room [address] [place] [address] [facility]CT [id number] 14:08:00Interface, External Ris In - 11/05/2019 2:10 [...] nonobstructing atherosclerotic changes throughout the abdominal aorta. Colorman dimensions of the thoracic aortaare as follows: [...] correlate with this patient bladder cancer. Signed: Holland Hamilton MDReport Verified Date/Time: 11/05/2019 14:08:15 Reading Location: [facility] Reading Room [address] [place] [address] [facility]-Kkfjicohnj2630-06-52 07:38:00 Test Item Value Reference Range Interpretation Comments POC-Creatinine (test code 1.7 mg/dL 0.6-1.3 H : TESTED AT [facility] = 1859) [address] [facility] A, [facility] [address]: Size Worker/Techni rigoberto ID = [id number] for CAMACHO LOMBARDI POC-EGFR (test code = 40 mL/min/1.73M2 1860) Lab Interpretation (test Abnormal code = 84728-2) [facility]-[id number] 07:38:00 Test Item Value Reference Range Interpretation Comments POC-CREATININE 1.7 mg/dL 0.6-1.3 H : [facility] (test [address] [facility] code = 1859) [place] [facility] 7 7030: Size Worker/Techni rigoberto ID = [id number] for CAMACHO LOMBARDI POC-EGFR 40 mL/min/1.73M2 (BEAKER) (test code = 1860) TISSUE [id number] 14:55:00Surgical Pathology Report Case: [id number] Authorizing Provider: Brown Garcia MD Collected: 02/16/2018 1004 Ordering Location: [facility] PERIOPERATIVE Received: 02/16/2018 1117 SERVICES Pathologist: [...] CHRONIC INFLAMMATION Signing Pathologist Direct Phone Line: [phone] signed by Nicolas Diaz MD on 02/20/2018 at 2:55 [id number], [id number] X 2Malignant neoplasm of urinary bladder A. [...] = 13) 50-59,000 col/mL skin floraURINALYSIS W/ [id number] 18:16:00 Test Item Value Reference Range Interpretation [...] = Occasional 1585) SOURCE(BEAKER) (test code = 7008) CBC W/PLT COUNT & AUTO [id number] 17:52:00 Test Item Value Reference Range Interpretation [...] Received comment: User comments: Slide comments:BASIC METABOLIC [id number] 17:40:00 Test Item Value Reference Range Interpretation [...] 697) EGFR (BEAKER) (test 48 mL/min/1.73 ESTIMA BRINA GFR IS code = 1092) sq m NOT ACCURATE CREATININE CLEARANCE IN PREDICTING GLOMERULAR FILTRATION RATE . ESTIMATED GFR I S NOT APPLICABLE FOR DIALYSIS PATIEN TS. RAD, CHEST, 2 [id number] 16:22:00Reason for exam:->pre-op testingShould this be performed at the bedside?->NoFINAL REPORT Chest, PA and lateral. History: Preoperative. Comparison: 08/24/2017. Discussion: Cardiomegaly and thoracic aortic ectasia. The lungs are clear without evidence of consolidation or effusion. There are no acute osseous abnormalities. The soft tissues are unremarkable. IMPRESSION: No acute cardiopulmonary abnormality. Signed: Humberto Weaver MDReport Verified Date/ Time: 02/12/2018 16:22:15 Reading Location: [address] Radiology Reading Room TISSUE [id number] 17:10:00Surgical Pathology Report Case: [id number] Authorizing Provider: Brown Garcia MD Collected: 08/25/2017 1030 Ordering Location: [facility] PERIOPERATIVE Received: 08/25/2017 1434 SERVICES Pathologist: [...] NOT PRESENT Signing Pathologist Direct Phone Line: [phone] signed by Nicolas Diaz MD on 08/28/2017 at 5:10 PMThe focus of invasion on specimen B. Is into the lamina propria of one papillary stalk and consists of on 3-4 tiny cell clusters. A. 90137I. 54148Z. 76484P. 13885Grbtpjdyu neoplasm of urinary bladder A. Bladder tumor [...] to 0.4 cm. Submitted D1. CG/pl PerformedURINE [id number] 16:00:00 Test Item Value Reference Range Interpretation [...] comments: Slide comments:CBC W/PLT COUNT & AUTO [id number] 20:06:00 Test Item Value Reference Range Interpretation [...] (test code = 413) RAD, CHEST, 2 [id number] 16:22:00Reason for Exam:->bladder cancer, pre- op testingFINAL [...] MDReport Verified Date/Time: 08/23/2017 16:22:14 Reading Location: [address] Reading Room BASI METABOLIC [id number] 16:10:00 Test Item Value Reference Range Interpretation [...] 697) EGFR (BEAKER) (test 43 mL/min/1.73 ESTIMA BRINA GFR IS code = 1092) sq m NOT ACCURATE CREATININE CLEARANCE IN PREDICTING GLOMERULAR FILTRATION RATE . ESTIMATED GFR I S NOT APPLICABLE FOR DIALYSIS PATIEN TS. URINALYSIS W/ [id number] 16:01:00 Test Item Value Reference Range Interpretation [...] Rare 1574) SOURCE(BEAKER) (test code = 2795) [id number] 15:55:00 Test Item Value Reference Range Interpretation Comments PARTIAL THROMBOPLASTIN TIME 31.6 seconds 22.5-36.0 (BEAKER) (test code = 760) PROTHROMBIN TIME/[id number] 15:54:00 Test Item Value Reference Range Interpretation Comments PROTIME (BEAKER) (test code = 14.8 seconds 11.7-14.7 H 759) INR (BEAKER) (test code = 370) 1.2 <=5.9 RECOMMENDED COUMADIN/WARFARIN INR THERAPY RANGESSTANDARD DOSE: 2.0 - 3.0 Includes: PROPHYLAXIS forvenous thrombosis, systemic embolization; TREATMENT for venous thrombosis and/or pulmonary embolus.HIGH RISK: Target INR is 2.5-3.5 for patients with mechanical heart valves.OCRMIGBGYE7763-63-18 10:07:0032.2[facility] ZallopwVJVKYOIDTV5262-85-00 10:07:008.6[facility] EylbhjbKWGOWDNKSU5332-03-47 10:07:48158Blhkjtbu GmhiskgGANUHMDOJP9804-95-93 10:07:0016.8[facility] UPRUTRDJGJ7416-68-01 10:07:0011.3[facility] RvcvdssZOHNIIGPGA7815-34-98 10:07:00 4.00[facility] ZdesqsnIFMMTHUWSV9676-04-62 10:07:0051.5[facility]annHEMATOLOGY 2017-05-29 10:07:0087.5[facility] HromvgpPRPMYEGQJI9162-13-38 10:07:0035.0[facility] LlqralzPAFGECNXJX0512-04-83 10:07:00 Test Item Value Reference Range Interpretation Comments MCH (test code = MCH) 28.2 pg 27.0-31.0 [facility] EodvzogUTSVKWFUOM0639-23-41 10:07:001.8[facility]annHEMATOLOGY 2017-05-29 10:07:000.1[facility] VaipxmeGHLMGWLTKG6587-63-02 10:07:000.5[facility] KzzkzqwTSULLCJOGY9576-20-64 10:07:003.5[facility] KvqmivxKBPDPXJNUN1194-81-35 10:07:0077.1[facility] FwwzkxqHSAUSQQOZJ0882-12-29 10:07:0018.1[facility] KKXCLTAMDO1765-14-66 10:07:0039.7[facility] UowxosoHTUVCTAQWR3068-71-90 10:07:00 1.0[facility] RlgfxxaJMSQESTNKR5300-05-58 10:07:009.3[facility]annHEMATOLOGY 2017-05-29 10:07:000.3[facility] KdfyvpgVPRZEFQJJW6593-01-47 10:41:001.0[facility] QjryumdDRWWCEBPCJ8806-30-41 10:41:002.0[facility] MzvwjifEKZXDQELMX9391-96-61 10:41:00 Test Item Value Reference Range Interpretation Comments Tot Cell Ct (test code = Tot Cell Ct) 100 1 [facility] ApvuuslNHOGZBOOGF2083-92-67 10:41:002.0[facility]annHEMATOLOGY 2017-05-28 10:41:001+ (05/28/17 5:41 AM)[facility] DoxvunqBPPOOKMHZB5389-44-56 10:41:00Moderate *ABN*(05/28/17 5:41 AM)[facility] PkucjzoTBVYUJFOWN8136-70-92 10:41:001+ *ABN*(05/28/17 5:41 AM)[facility] OncmnzuDHXCZDLCHC4775-01-14 10:41:001+ *ABN*(05/28/17 5:41 AM)[facility] OtrdgsyYKMJZGHYET7365-02-21 10:41:0042.8[facility] YeqzxzpAGAJRZRNSR0000-09-00 10:41:0013.0[facility] PjamftmXJATRXAZUA1565-55-60 10:41:000.5[facility] ZgtctczGSNMBYHXIG3244-80-77 10:41:0082.0[facility] BKNTHPWNCL2833-47-92 10:41:000.0[facility] BdjmnmlQGQKKQPOJZ2500-12-56 10:41:006.6 [facility] HmoaccpLKQCVZIOKQ4193-47-17 10:41:001.0[facility]annHEMATOLOGY 2017-05-28 10:41:76330Xzgwmgvf VewrrpgEPFTVEVQYS6078-62-36 10:41:0016.4[facility] WcjjdguLCCJBOJLHZ2757-64-78 10:41:00 Test Item Value Reference Range Interpretation Comments MCH (test code = MCH) 27.8 pg 27.0-31.0 [facility] DqsjvigTYQVNYLNAN4806-23-86 10:41:0032.2[facility]annHEMATOLOGY 2017-05-28 10:41:0086.2[facility] QnhhxpaUETOAVCMBZ4893-46-68 10:41:0035.5[facility] AuifjphAYLNZFJMIH0951-34-48 10:41:008.2[facility] CetizawSUCZYXDUZC8301-26-97 10:41:0011.4[facility] LkcnevyALEJNSOTEA9604-08-50 10:41:004.13[facility] TURTFAIBEY5833-46-61 10:41:0051.0[facility] HermannCHEM DMQRN6157-88-63 13:34:0068 [facility]annCHEM YNWDP4846-30-65 13:34:0024[facility] HermannCHEM PANEL 2017-05-27 13:34:23755Navjstoi HermannCHEM KZCHP6753-23-46 13:34:003.8[facility] HermannCHEM QGFRZ5250-71-89 13:34:95155Vjsubtdn HermannCHEM HFFIR0479-32-55 13:34:001.08[facility] HermannCHEM NCOPK6378-32-47 13:34:0020[facility] HermannCHEM WKAPS6751-61-67 13:34:008.7[facility] HermannCHEM EEFVA8575-39-23 13:34:96659 [facility]annCHEM ZOSFT5842-62-45 13:34:0014.8[facility]annHEMATOLOGY 2017-05-27 13:34:001.3[facility] TmugsbdKXONTGXUSK7539-19-94 13:34:000.5[facility] BttjqzhKQLJCIOUWG5855-15-78 13:34:000.3[facility] EydinvnHRJFYMXKSM9021-70-22 13:34:000.8[facility] EergaslUJRXFFXMFE3820-30-79 13:34:0010.9[facility] WPYILOPQEI0369-89-58 13:34:0044.6[facility] KvjwlqlMBGGGMYKPW3711-26-25 13:34:00 0.3[facility] JceuftpSTALKKHGUY4804-05-62 13:34:001+ *ABN*(05/27/17 8:34 AM) [facility] EzuoaiuUFDEKZBYVJ5166-10-75 13:34:000.2[facility] HermannHEMATOLOGY 2017-05-27 13:34:0019.3[facility] OwngwmsILJZEBRHVO3339-61-64 13:34:00Normal (05/27/17 8:34 AM)[facility] WpiutkbDDNOHLUDUS2248-37-56 13:34:0078.6[facility] BcijvfsLWFSQEMGOD6803-27-82 13:34:61977Cfqtrxef JdpyaehHYDVVMNDLI9284-75-98 13:34:008.5[facility] EszhniwOXPBFLDBAT2038-32-56 13:34:0033.0[facility] CFQLZKKCYS6074-45-16 13:34:0016.4[facility] GveudveISBLMYZUSW8931-95-79 13:34:00 12.4[facility] KbtedydRHDCFBRYDS2967-70-79 13:34:0086.8[facility]annHEMATOLOGY 2017-05-27 13:34:0037.4[facility] ShcynifNYNFHGGQVM7054-95-70 13:34:00 Test Item Value Reference Range Interpretation Comments MCH (test code = MCH) 28.7 pg 27.0-31.0 [facility] AtttllbJBAKQOXZXC3048-13-31 13:34:0056.8[facility] HermannHEMATOLOGY 2017-05-27 13:34:004.31[facility]annBLOOD BANK QAGMNCN4744-08-06 06:34:00 Negative (05/27/17 1:34 AM)[facility] QRBJIKJ6987-56-93 06:25:00 Product available (05/27/17 1:25 AM)[facility] HermannCHEM LCOXI7571-02-98 04:22:00 49[facility] HermannCHEM QLZMK7092-97-64 04:22:30726Lszuwyto HermannCHEM PANEL 2017-05-27 04:22:003.5[facility] HermannCHEM KFSID4943-55-43 04:22:57069Jzgbjerd HermannCHEM SHCGA6428-83-94 04:22:0025[facility] HermannCHEM BDNMH1403-95-63 04:22:009.1[facility] HermannCHEM NUXFC3281-70-97 04:22:46660Njoyxohn HermannCHEM APMXQ5629-17-30 04:22:0025[facility] HermannCHEM RJTPQ4060-81-76 04:22:001.41 [facility]annCHEM VEKHQ9059-66-03 04:22:0012.5[facility] HermannHEMATOLOGY 2017-05-27 04:22:000.0[facility] TplwigyVDXWPAUVYA6233-00-18 04:22:00Normal (05/26/17 11:22 PM)[facility] InywsmsJHACAWEPRB7782-77-71 04:22:000.0[facility] ActbwclBWSYPXEGRY9269-37-82 04:22:00 Test Item Value Reference Range Interpretation Comments Tot Cell Ct (test code = Tot Cell Ct) 100 1 [facility] HospitalLojftmsRKGEXLWPTX8465-26-64 04:22:00Normal (05/26/17 11:22 PM)[facility] HospitalZorkhzyPDOWESNFDR6914-06-97 04:22:00 Test Item Value Reference Range Interpretation Comments INR (test code = INR) 1.13 1 0.85-1.17 [facility] HospitalMzjsrmoOQRQQWGBQU5468-75-77 04:22:00 Test Item Value Reference Range Interpretation Comments PT (test code = PT) 14.5 s 12.0-14.7 [facility] HospitalBmelgvhWIYPIQKOJR3214-46-60 04:22:00 Test Item Value Reference Range Interpretation Comments PTT (test code = PTT) 33.1 s 22.9-35.8 [facility]HEMOGLOB[facility] [id number] 11:52:00 Test Item Value Reference Range Interpretation Comments HEMOGLOBIN A1C (BEAKER) (test code = 6.9 % 4.3-6.1 H 368) [id number] 11:12:00 Test Item Value Reference Range Interpretation Comments RPR SCREEN (BEAKER) (test code = Nonreactive Nonreactive 420) CBC W/PLT COUNT & AUTO [id number] 10:31:00 Test Item Value Reference Range Interpretation [...] (BEAKER) (test code = Present 1371) VITAMIN [id number] 08:02:00 Test Item Value Reference Range Interpretation Comments VITAMIN B12 (BEAKER) (test code = 346 pg/mL 213-816 774) TSH/FREE T4 IF [id number] 08:02:00 Test Item Value Reference Range Interpretation Comments THYROID STIMULATING HORMONE 1.37 uIU/mL 0.35-4.94 (BEAKER) (test code = 772) CREATINE KINASE (CK), TOTAL AND [id number] 07:55:00 Test Item Value Reference Range Interpretation Comments CREATINE KINASE TOTAL (BEAKER) 72 U/L 29-200 (test code = 380) CREATINE KINASE-MB (BEAKER) (test 0.5 ng/mL 0.0-6.6 code = 750) CREATINE KINASE-MB INDEX (BEAKER) 0.7 % (test code = 395) CK-MB Reference Range:<6.7 Normal6.7-10.0 Borderline>10.0 AbnormalTROPONIN [id number] 07:55:00 Test Item Value Reference Range Interpretation [...] acidosis, acute neurological disease, and persistent tachyarrhythmia.LIPID [id number] 07:39:00 Test Item Value Reference Range Interpretation [...] 130-159 High 160-189 Very High >=190BASIC METABOLIC [id number] 07:39:00 Test Item Value Reference Range Interpretation [...] 697) EGFR (BEAKER) (test 49 mL/min/1.73 ESTIMA BRINA GFR IS code = 1092) sq m NOT ACCURATE CREATININE CLEARANCE IN PREDICTING GLOMERULAR FILTRATION RATE . ESTIMATED GFR I S NOT APPLICABLE FOR DIALYSIS PATIEN TS. MR, MRA, BRAIN, WITHOUT [id number] 04:30:00Reason for exam:->Ischemic Stroke EvaluationFINAL REPORT MR, [...] MDReport Verified Date/Time: 01/29/2017 04:30:36 Reading Location: [address] Consult Reading Room MR, MRA, NECK, WITHOUT IV [id number] 04:30:00Reason for exam:- >Ischemic Stroke EvaluationFINAL REPORT [...] MDReport Verified Date/Time: 01/29/2017 04:30:36 Reading Location: [address] Consult Reading Room MR, BRAIN, WITHOUT ERQLWYUM3925-06-83 04:30:00Reason for exam:- >Ischemic Stroke EvaluationFINAL REPORT [...] MDReport Verified Date/Time: 01/29/2017 04:30:36 Reading Location: [facility] C0X [facility] Consult Reading Room CHEM [id number] 20:35:0054[facility] HermannCHEM JQAEP2678-07-38 20:35:0015.8[facility] HermannCHEM IHZRN1613-04-32 20:35:009.9[facility] HermannCHEM EBLBC0335-66-80 20:35:0027[facility] HermannCHEM QEMZU0797-16-25 20:35:23567 [facility]annCHEM LXRCR5990-67-89 20:35:0091[facility] HermannCHEM PANEL 2016-09-19 20:35:0018[facility] HermannCHEM SCKJO0157-36-03 20:35:77203Klbxrjhx HermannCHEM CDLLB1769-48-44 20:35:001.31[facility] HospitaltorinNOVANT HEALTH ROWAN MEDICAL CENTERUTCDG4760-74-68 20:35:003.8[facility] Companyfawad Clements
[2020-08-08 15:34] LABS: ALT/SGPT 16 U/L (12-78); Albumin 3.8 g/dL (3.4-5.0); Alkaline Phosphatase 119 U/L (45-117); BUN Blood Urea Nitrogen 18 mg/dL (7-18); Bicarbonate 27 mmol/L (21-32); Bilirubin Direct 0.1 mg/dL (0-0.2); Bilirubin Total 0.5 mg/dL (0.2-1.0); Creatine Phosphokinase 49 U/L (39-308); Glucose Level 229 mg/dL (74-106); Lipase 104 U/L (73-393); Protein, Total 7.2 g/dL (6.4-8.2); Sodium Level 140 mmol/L (136-145); Troponin (Emerg Dept Use Only) < 0.02 ng/mL (0.0-0.045)
[2020-08-08 15:35] LABS: AST/SGOT 18 U/L (15-37); CKMB Creatine Kinase MB < 1.0 ng/mL (1.0-3.6); Potassium 3.9 mmol/L (3.5-5.1)
[2020-08-08] MEDS ORDERED: NA CHLORIDE 0.9% 500 ML ONE (16:42)
[2020-08-08 16:50] LABS: Blood Morphology Comment NOT SEEN (NOT SEEN); Platelet Estimate ADEQ
[2020-08-08] MEDS ORDERED: CEFTRIAXONE/SWI 1gm 1 GM/10 ML SYR ONE (16:56)
[2020-08-08 17:10] LABS: Urine Blood 3+ (Negative); Urine Glucose Negative (Negative); Urine Protein 2+ (Negative); Urine Specific Gravity >=1.030 (1.005-1.030); Urine pH 6.5 (5.0-7.0)
[2020-08-08 17:33] LABS: Urine Bacteria >50 /HPF (NONE SEEN); Urine RBC NONE SEEN /HPF (NONE SEEN)
--- NOTE | 2020-08-08 17:50 | EDPHYS ---
[facility] Name: Duke Mrain III Age: 75 yrs Sex: Male : 1945 Arrival Date: 08/08/2020 Time: 13:43 Bed 15 Private MD: Javi Looney ED Physician John Benitez HPI: 08/08 13:59 This 75 yrs old Male presents to ER via EMS with complaints of Altered Mental pm1 Status. 13:59 The patient presents with confusion. Onset: The symptoms/episode began/occurred 4 pm1 day(s) ago. Possible causes: possibly from UTI or chemotreatment. Associated signs and symptoms: Pertinent positives: foul smelling odor, Pertinent negatives: abdominal pain, chest pain, diarrhea, headache, nausea, shortness of breath, vomiting, fever, shortness of breath. Current symptoms: In the emergency department the patient's symptoms have improved, His confusion was worse yesterday and has improved today. Patient's baseline: Neuro: alert and fully oriented, The patient has a previous history of CVA. The patient has experienced similar episodes in the past, a few times, today's symptoms are similar, to previous UTI. Patient with chemotherapy 1 week ago. Historical: - Allergies: 13:51 Augmentin; jd3 13:51 ephedrine sulfate; jd3 13:51 Pseudoephedrine; jd3 - Home Meds: 13:51 "Cardia" 240mg Daily 140 mg daily [Active]; Bystolic 5 mg Oral tab nightly [Active]; jd3 Crestor 10 mg Oral tab 1 tab once daily [Active]; Bystolic 10 mg Oral tab twice a day [Active]; Plavix 75 mg Oral tab 1 tab once daily [Active]; aspirin 81 mg Oral chew [Active]; valsartan 75 mg Oral once daily [Active]; - PMHx: 13:51 Bladder cancer; enlarged aorta; CLL; Atrial Fib; CVA; Hypertension; SVT; jd3 - Immunization history:: Adult Immunizations up to date. - Social history:: Smoking status: Patient denies any tobacco usage or history of. ROS: 13:59 Constitutional: Negative for fever, chills, and weight loss, Eyes: Negative for injury, pm1 pain, redness, and discharge, ENT: Negative for injury, pain, and discharge, Neck: Negative for injury, pain, and swelling, Cardiovascular: Negative for chest pain, palpitations, and edema, Respiratory: Negative for shortness of breath, cough, wheezing, and pleuritic chest pain, Abdomen/GI: Negative for abdominal pain, nausea, vomiting, diarrhea, and constipation, Back: Negative for injury and pain, MS/Extremity: Negative for injury and deformity, Skin: Negative for injury, rash, and discoloration. 13:59 : Positive for foul smelling urine, Negative for urinary frequency, small amounts, pelvic pain, flank pain, burning with urination, difficulty urinating. 13:59 Neuro: Positive for altered mental status, Negative for headache, numbness, tingling, weakness. Exam: 13:59 Constitutional: This is a well developed, well nourished patient who is awake, alert, pm1 and in no acute distress. Head/Face: Normocephalic, atraumatic. 13:59 Eyes: Exam is negative for acute changes, Periorbital structures: appear normal, Extraocular movements: no acute changes, Conjunctiva: no acute changes, no injection, Sclera: no acute changes, icterus, is not appreciated. 13:59 ENT: Mouth: Lips: normal, Oral mucosa: normal, pink and intact, moist. Vital Signs: 13:52 BP 135 / 88; Pulse 77; Resp 18 S; Temp 97.6(TE); Pulse Ox 99% on R/A; Weight 86.18 kg jd3 (R); Height 5 ft. 10 in. (177.80 cm) (R); Pain 0/10; 13:52 Body Mass Index 27.26 (86.18 kg, 177.80 cm) jd3 MDM: 13:51 Patient medically screened. pm1 14:57 Data reviewed: vital signs. Data interpreted: Pulse oximetry: on room air is 99 %. pm1 Interpretation: normal. 16:18 ED course: Patient and family deny allergy to PCN and Augmentin. Reports allergy is to pm1 cipro. 17:49 Counseling: I had a detailed discussion with the patient and/or guardian regarding: the pm1 historical points, exam findings, and any diagnostic results supporting the discharge/admit diagnosis, lab results, radiology results, the need for outpatient follow up, to return to the emergency department if symptoms worsen or persist or if there are any questions or concerns that arise at home. 08/08 13:54 Order name: Urine Culture pm08/08 13:54 Order name: Urine Microscopic Only pm08/08 13:54 Order name: Basic Metabolic Panel; Complete Time: 15:56 pm08/08 13:54 Order name: Blood Culture Adult (2) pm08/08 13:54 Order name: CBC with Diff; Complete Time: 17:16 pm08/08 13:54 Order name: CPK; Complete Time: 15:56 pm08/08 13:54 Order name: Ckmb; Complete Time: 15:56 pm08/08 13:54 Order name: LFT's; Complete Time: 15:56 pm08/08 13:54 Order name: Lactate; Complete Time: 15:56 pm08/08 13:54 Order name: Lipase; Complete Time: 15:56 pm08/08 13:54 Order name: Procalcitonin; Complete Time: 15:56 pm08/08 13:54 Order name: Protime (+inr); Complete Time: 15:56 pm08/08 13:54 Order name: Ptt, Activated; Complete Time: 15:56 pm08/08 13:54 Order name: Troponin (emerg Dept Use Only); Complete Time: 15:56 pm08/08 13:54 Order name: CT Head Brain wo Cont; Complete Time: 14:27 pm08/08 13:54 Order name: Urine Dipstick-Ancillary (obtain specimen); Complete Time: 17:12 pm08/08 13:54 Order name: Chest Single View XRAY; Complete Time: 14:27 pm08/08 13:54 Order name: Accucheck; Complete Time: 14:50 pm08/08 13:54 Order name: Cardiac monitoring; Complete Time: 14:50 pm08/08 13:54 Order name: EKG - Nurse/Tech; Complete Time: 14:57 pm08/08 13:54 Order name: IV Saline Lock - Large Bore; Complete Time: 14:50 pm08/08 13:54 Order name: Labs collected and sent; Complete Time: 14:50 pm08/08 13:54 Order name: O2 Per Protocol; Complete Time: 13:54 pm1 08/08 13:54 Order name: O2 Sat Monitoring; Complete Time: 13:54 pm1 08/08 13:54 Order name: Urine Culture [facility] 08/08 13:54 Order name: Urine Microscopic Only; Complete Time: 17:53 EDME 08/08 15:28 Order name: Manual Differential; Complete Time: 17:16 [facility] 08/08 17:10 Order name: Urine Dipstick-Ancillary; Complete Time: 17:16 [facility] 08/08 16:17 Order name: Straight Cath - Urine; Complete Time: 17:12 pm1 Administered Medications: 16:39 Drug: NS 0.9% 500 ml Route: IV; Rate: bolus; Site: right wrist; tr6 17:12 Drug: Rocephin (cefTRIAXone) 1 grams Route: IV; Rate: calculated rate; Site: right tr6 wrist; Disposition Summary: 08/08/20 17:49 Discharge Ordered Location: Home pm1 Problem: new pm1 Symptoms: have improved pm1 Condition: Stable pm1 Diagnosis - UTI/ Urinary tract infection, site not specified pm1 - Altered mental status, unspecified pm1 Followup: pm1 - With: Emergency Department - When: As needed - Reason: Worsening of condition Followup: pm1 - With: Private Physician - When: 2 - 3 days - Reason: Recheck today's complaints, Continuance of care, Re-evaluation by your physician Discharge Instructions: - Discharge Summary Sheet pm1 - Urinary Tract Infection, Adult pm1 Forms: - Medication Reconciliation Form pm1 - Thank You Letter pm1 - Antibiotic Education pm1 - Prescription Opioid Use pm1 Prescriptions: - cefpodoxime 200 mg Oral Tablet - take 1 tablet by ORAL route every 12 hours for 10 days with food; 20 tablet; pm1 Refills: 0, Product Selection Permitted Addendum: 08/10/2020 13:43 Co-signature as Attending Physician, John Benitez MD I agree with the assessment and k dr plan of care. Signatures: Dispatcher [employer] [facility] John Benitez MD MD kdr Marinas, Patrick, NP LEAD QA ANALYST pm1 Dean Donovan RN RN Lucille Castillo Tiffany, RN RN tr6 Corrections: (The following items were deleted from the chart) 08/08 15:34 14:58 Labs - recollect needed ordered. eb tr6
--- NOTE | 2020-08-08 17:50 | ER ---
Nurse's Notes [facility] Name: Duke Marin III Age: 75 yrs Sex: Male : 1945 Arrival Date: 08/08/2020 Time: 13:43 Bed 15 Private MD: Javi Looney Diagnosis: UTI/ Urinary tract infection, site not specified;Altered mental status, unspecified Presentation: 08/08 13:46 Chief complaint: EMS states: "family reported pt is under going chemo treatment. last jd3 treatment about a week ago. family noticed some confusion that has been going on since then. worse yesterday. he was A\\T\\O X 4 for us. They called MD De La Paz and they told us to bring him here to check for infection or reaction to the chemo.". Coronavirus screen: At this time, the client does not indicate any symptoms associated with coronavirus-19. Ebola Screen: Patient negative for fever greater than or equal to 101.5 degrees Fahrenheit, and additional compatible Ebola Virus Disease symptoms. Initial Sepsis Screen: Does the patient meet any 2 criteria? No. Patient's initial sepsis screen is negative. Does the patient have a suspected source of infection? No. Patient's initial sepsis screen is negative. Risk Assessment: Do you want to hurt yourself or someone else? Patient reports no desire to harm self or others. Onset of symptoms was August 01, 2020. 13:46 Method Of Arrival: EMS: [facility] jd3 13:46 Acuity: PARAG 3 jd3 Historical: - Allergies: 13:51 Augmentin; jd3 13:51 ephedrine sulfate; jd3 13:51 Pseudoephedrine; jd3 - Home Meds: 13:51 "Cardia" 240mg Daily 140 mg daily [Active]; Bystolic 5 mg Oral tab nightly [Active]; jd3 Crestor 10 mg Oral tab 1 tab once daily [Active]; Bystolic 10 mg Oral tab twice a day [Active]; Plavix 75 mg Oral tab 1 tab once daily [Active]; aspirin 81 mg Oral chew [Active]; valsartan 75 mg Oral once daily [Active]; - PMHx: 13:51 Bladder cancer; enlarged aorta; CLL; Atrial Fib; CVA; Hypertension; SVT; jd3 - Immunization history:: Adult Immunizations up to date. - Social history:: Smoking status: Patient denies any tobacco usage or history of. Screenin:53 Abuse screen: Denies threats or abuse. Denies injuries from another. Nutritional tr6 screening: No deficits noted. Tuberculosis screening: No symptoms or risk factors identified. Fall Risk No fall in past 12 months (0 pts). Assessment: 14:01 Reassessment: pt transferred to CT. tr6 14:51 General: Appears in no apparent distress. comfortable, Behavior is calm, cooperative, tr6 appropriate for age. Pain: Denies pain. Neuro: Level of Consciousness is awake, Oriented to person, place, time, situation, Appropriate for age Hoop Rolls Operator are equal bilaterally Moves all extremities. Gait is Speech is normal, Facial symmetry appears normal. Respiratory: No deficits noted. GI: No deficits noted. : No deficits noted. EENT: No deficits noted. Derm: Skin is fragile, is thin. Musculoskeletal: weakness in b/l lower extremities. pt unable to bare weight. 15:08 Reassessment:. tr6 17:16 Reassessment: No changes from previously documented assessment. Patient and/or family tr6 updated on plan of care and expected duration. Pain level reassessed. Vital Signs: 13:52 BP 135 / 88; Pulse 77; Resp 18 S; Temp 97.6(TE); Pulse Ox 99% on R/A; Weight 86.18 kg jd3 (R); Height 5 ft. 10 in. (177.80 cm) (R); Pain 0/10; 13:52 Body Mass Index 27.26 (86.18 kg, 177.80 cm) jd3 ED Course: 13:43 Patient arrived in ED. ds1 13:43 Javi Looney MD is Private Physician. ds1 13:45 Isiah Draper NP is PHCP. pm1 13:45 John Benitez MD is Attending Physician. pm1 13:46 Dean Donovan RN is Primary Nurse. jd3 13:51 Triage completed. jd3 13:53 Resting quietly. family at bedside. tr6 13:53 Arm band placed on. jd3 13:53 Patient has correct armband on for positive identification. Placed in gown. Bed in low tr6 position. Call light in reach. Side rails up X 1. Side rails up X2. court recording monitor on. Pulse ox on. NIBP on. Door closed. Noise minimized. Visitors limited. Lights dimmed. Moved to private room. Warm blanket given. Diet: Patient is NPO. 13:53 No provider procedures requiring assistance completed. tr6 14:13 CT Head Brain wo Cont In Process Unspecified. EDMS 14:16 Chest Single View XRAY In Process Unspecified. EDMS 15:07 EKG done, by ED staff, reviewed by John Benitez MD. mh5 15:38 Notified Nurse Practitioner and/or Physician Auditing Control Clerk of a critical lab result(s), sv lactate-2.1. 17:15 Urine Culture Sent. sv 17:15 Urine Microscopic Only Sent. sv 17:57 IV discontinued, intact, bleeding controlled, No redness/swelling at site. Pressure tr6 dressing applied. Administered Medications: 16:39 Drug: NS 0.9% 500 ml Route: IV; Rate: bolus; Site: right wrist; tr6 17:12 Drug: Rocephin (cefTRIAXone) 1 grams Route: IV; Rate: calculated rate; Site: right tr6 wrist; Output: 17:16 Urine: 200ml (Straight Cath); Total: 200ml. tr6 Outcome: 17:49 Discharge ordered by MD. pm1 17:57 Discharged to home tr6 18:34 Discharged to home via ambulance, with family. tr6 18:34 Condition: stable 18:34 Discharge instructions given to patient, family, EMS, Instructed on discharge instructions, follow up and referral plans. no drinking with medication, medication usage, safety practices, Demonstrated understanding of instructions, follow-up care, medications, Prescriptions given X 1. 18:36 Patient left the ED. tr6 Signatures: Dispatcher [employer] EDNY Analisa Watkins RN RN Fidelina Malhotra ds1 Isiah Draper NP FILTER TANK TENDER pm1 Bel Navarro 5 Dean Donovan RN RN Lashell Martinez RN RN tr6 Corrections: (The following items were deleted from the chart) 18:36 14:51 Musculoskeletal: No deficits noted. tr6 tr6
[2020-08-08 18:52] VITALS: BP 135/88; TEMP 97.6; O2SAT 99
--- NOTE | 2020-08-11 16:15 | EKG ---
Test Date: 2020-08-08 Test Time: 14:52:53 Manufacturing Mechanic: CHRISTY MEASUREMENT RESULTS: Intervals: Rate: 66 NM: 236 QRSD: 92 QT: 484 QTc: 507 Fork: P: 42 NM: 236 QRS: -27 T: 75 INTERPRETIVE STATEMENTS: Sinus rhythm with 1st degree AV block Inferior infarct, age undetermined Cannot rule out Anterior infarct, age undetermined Prolonged QT Abnormal ECG Compared to ECG 03/02/2020 16:39:25 First degree AV block now present Prolonged QT interval now present ST (T wave) deviation no longer present Possible ischemia no longer present Myocardial infarct finding still present Electronically Signed On 08-11-20 16:09:10 CDT by Samuel Colon
== END 2020-08-08 18:36 | disposition home or self-care (01) ==
LOC: ER 13:34
DX: N39.0 Urinary tract infection, site not specified (principal); C67.9 Malignant neoplasm of bladder, unspecified; I10 Essential (primary) hypertension; I48.91 Unspecified atrial fibrillation; Z79.01 Long term (current) use of anticoagulants; Z79.82 Long term (current) use of aspirin; Z88.1 Allergy status to other antibiotic agents; Z88.8 Allergy status to other drugs, medicaments and biological substances; Z86.73 Personal history of transient ischemic attack (TIA), and cerebral infarction without residual deficits
CPT/HCPCS: 93005; 87040 ×2; 87088; 85025; 87086; 80048; 36415; 82550; 87205; 85610; 80076; 83605; 85730; 87077 ×2; 87186 ×2; 84484; 82553; 83690; 84145; 70450; 71045; 96374; 99284; J0696; J7040; 81003; 81015

== ENCOUNTER 2020-10-28 20:29 | Inpatient (IN) | payer OTHER ==
[2020-10-28 21:19] LABS: Urine Blood 2+ (Negative); Urine Glucose Negative (Negative); Urine Protein 3+ (Negative); Urine Specific Gravity 1.025 (1.005-1.030); Urine pH 6.5 (5.0-7.0)
[2020-10-28] MEDS ORDERED: NA CHLORIDE 0.9% 1,000 ML ONE (21:22)
[2020-10-28 21:29] LABS: Protime INR 1.23
--- NOTE | 2020-10-28 22:09 | RAD REPORT ---
EXAM DESCRIPTION: RAD - Chest Single View - 10/28/2020 10:01 pm CLINICAL HISTORY: MALAISE COMPARISON: Chest Single View dated 08/08/2020; Chest Single View dated 03/03/2020; Chest Single View d ated 02/28/2020; Chest Single View dated 02/01/2020 FINDINGS: Lines: None. Lungs: Mild patchy bilateral airspace disease noted. Pleural: No significant pleural effusions or pneumothorax. Cardiac: Mild cardiomegaly . Bones: No acute fractures. Other: IMPRESSION: Scattered ill-defined airspace opacities bilaterally could reflect mild pneumonia .
[2020-10-28 22:23] LABS: Absolute Lymphocytes (CBC) 0.6 K/uL (0.7-4.9); Basophils % 0.9 % (0-1.3); Hematocrit 42.2 % (39.6-49.0); Lymphocytes % 8.3 % (15.3-44.8); MPV 7.8 fL (7.6-11.3); RBC Red Blood Cell Count 5.02 M/uL (4.33-5.43)
[2020-10-28 22:24] LABS: Blood Morphology Comment NOT SEEN (NOT SEEN); Platelet Estimate ADEQ; White Blood Cell Scan OK (OK)
[2020-10-28 22:59] LABS: ALT/SGPT 13 U/L (12-78); AST/SGOT 12 U/L (15-37); Albumin 3.7 g/dL (3.4-5.0); Alkaline Phosphatase 109 U/L (45-117); BUN Blood Urea Nitrogen 23 mg/dL (7-18); Bicarbonate 25 mmol/L (21-32); Bilirubin Direct 0.1 mg/dL (0-0.2); Bilirubin Total 0.4 mg/dL (0.2-1.0); Glucose Level 163 mg/dL (74-106); Lipase 82 U/L (73-393); Magnesium 2.1 mg/dL (1.8-2.4); NT PRO-BNP 412 pg/mL (<450); Potassium 3.6 mmol/L (3.5-5.1); Protein, Total 6.7 g/dL (6.4-8.2); Sodium Level 144 mmol/L (136-145); Troponin (Emerg Dept Use Only) < 0.02 ng/mL (0.0-0.045)
[2020-10-29] MEDS ORDERED: CEFTRIAXONE 1000 MG/VIAL ONE (00:28)
--- NOTE | 2020-10-29 01:22 | ER ---
Nurse's Notes [facility] Name: Duke Marin III Age: 75 yrs Sex: Male : 1945 Arrival Date: 10/28/2020 Time: 20:34 Bed 5 Private MD: Diagnosis: Weakness;Pneumonia, unspecified organism;UTI/ Urinary tract infection, site not specified Presentation: 10/28 20:35 Chief complaint: Spouse and/or significant other states: reports patient has been ch4 weak since yesterday morning. received last chemo today. Difficulty sitting up straight in his wheelchair. Hx stroke. Foul smelling urine per EMS. Coronavirus screen: At this time, the client does not indicate any symptoms associated with coronavirus-19. Ebola Screen: No symptoms or risks identified at this time. Initial Sepsis Screen: Does the patient meet any 2 criteria? No. Patient's initial sepsis screen is negative. Risk Assessment: Do you want to hurt yourself or someone else? Patient reports no desire to harm self or others. Onset of symptoms was October 27, 2020. 20:35 Method Of Arrival: EMS: [facility] ch4 20:35 Acuity: PARAG 3 ch4 Triage Assessment: 20:35 The onset of the patients symptoms was October 27, 2020 at 08:00. General: Appears in ch4 no apparent distress. Behavior is cooperative. Pain: Denies pain. EENT: No deficits noted. Historical: - Allergies: 21:25 Augmentin; ea 21:25 ephedrine sulfate; ea 21:25 Pseudoephedrine; ea - Home Meds: 21:25 "Cardia" 240mg Daily 140 mg daily [Active]; aspirin 81 mg Oral chew [Active]; Bystolic ea 5 mg Oral tab nightly [Active]; Bystolic 10 mg Oral tab twice a day [Active]; Crestor 10 mg Oral tab 1 tab once daily [Active]; Plavix 75 mg Oral tab 1 tab once daily [Active]; valsartan 75 mg Oral once daily [Active]; - PMHx: 21:25 Atrial Fib; Bladder cancer; CVA; enlarged aorta; CLL; Hypertension; SVT; ea - Immunization history:: Adult Immunizations up to date. - Social history:: Smoking status: unknown. - Family history:: not pertinent. Screenin:24 Abuse screen: Denies threats or abuse. Nutritional screening: No deficits noted. ea Tuberculosis screening: No symptoms or risk factors identified. Fall Risk IV access (20 points). Assessment: 21:23 General: Appears in no apparent distress. Behavior is cooperative. Pain: Denies pain. ea Neuro: Level of Consciousness is awake, alert, obeys commands, Oriented to person. Respiratory: Airway is patent Respiratory effort is even, unlabored, Respiratory pattern is regular, symmetrical. Derm: Skin is pink, warm \\T\\ dry. 22:21 Reassessment: Patient and/or family updated on plan of care and expected duration. Pain ea level reassessed. Patient is alert, oriented x 3, equal unlabored respirations, skin warm/dry/pink. 10/29 00:00 Reassessment: Patient and/or family updated on plan of care and expected duration. Pain ea level reassessed. Pt resting with eyes closed, respirations even and unlabored, chest expansions even and symmetrical. Family remains at bedside. Vital Signs: 10/28 20:35 BP 165 / 99; Pulse 79; Resp 15; Temp 97.5; Pulse Ox 98% on R/A; ch4 22:38 BP 165 / 86; Pulse 68; Resp 19; Pulse Ox 98% on R/A; ch4 23:15 BP 153 / 76; Pulse 64; Resp 17; Pulse Ox 98% ; ea 10/29 01:45 BP 141 / 76; Pulse 68; Resp 17; Pulse Ox 99% ; ea NIH Stroke Scale Scores: 00:01 NIHSS Score: 1 [facility] ED Course: 10/28 20:34 Patient arrived in ED. ch4 20:37 Triage completed. ch4 20:53 Russell De La Paz MD is Attending Physician. [facility] 21:22 Radha Ferraro, CHRISTOPHER is Primary Nurse. ea 21:24 Maintain EMS IV. Dressing intact. Site clean \\T\\ dry. Gauge \\T\\ site: 20G to left wrist . ea 21:24 Patient has correct armband on for positive identification. Bed in low position. Call ea light in reach. Side rails up X2. 21:25 Straight cath inserted, using sterile technique, 16 Fr. Specimen obtained. ea 22:01 XRAY Chest (1 view) In Process Unspecified. EDMS 22:10 Initial lab(s) drawn, by me, sent to lab. Inserted saline lock: 22 gauge in right hand, em using aseptic technique. Blood collected. 10/29 00:58 CT Head Brain wo Cont In Process Unspecified. EDMT 01:20 Javi Looney MD is Hospitalizing Provider. luanne Administered Medications: 10/28 21:04 Drug: NS 0.9% 1000 ml Route: IV; Rate: 125 ml/hr; Site: left forearm; ch4 10/29 00:09 Drug: Rocephin (cefTRIAXone) 1 grams Route: IV; Rate: per protocol; Site: left wrist; em 01:45 Drug: Zithromax (azithromycin) 500 mg Route: PO; ea Outcome: 01:22 Decision to Hospitalize by Provider. [facility] 08:28 Patient left the ED. bp NIH Stroke Scale - NIH Stroke Score Date: 10/29/2020 Time: 00:01 Total Score = 1 1a. Level of Consciousness (LOC) - 0(Alert) 1b. Level of Consciousness (LOC) (Month \\T\\ Age) - 0(Both) 1c. LOC Commands (Open \\T\\ Closes Eyes/Chauffeur Motor[employer]) - 0(Both) 2. Best Gaze (Lateral Gaze Paresis) - 0(Normal) 3. Visual Field Loss - 0(No visual loss) 4. Facial Palsy - 0(Normal) 5a. Left Arm: Motor (10-second hold) - 0(No drift) 5b. Right Arm: Motor (10-second hold) - 0(No drift) 6a. Left Leg: Motor (5-second hold - always test supine) - 0(No drift) 6b. Right Leg: Motor (5-second hold - always test supine) - 0(No drift) 7. Limb Ataxia (finger/nose \\T\\ heel/luo - test with eyes open) - 0(Absent) 8. Sensory Loss (pinprick arms/legs/face) - 0(Normal) 9. Best Language: Aphasia (description/naming/reading) - 0(No aphasia) 10. Dysarthria (speech clarity - read or repeat words) - 1(Mild to Moderate) 11. Extinction and Inattention (visual/tactile/auditory/spatial/personal) - 0(No abnormality) Initials: [facility] Signatures: Dispatcher [employer] Russell Roe MD MD cha Munoz, Edgar, RN Radha Rome RN RN ea Peltier, Brian, RN RN bp Earline Bro, RN RN ch4
--- NOTE | 2020-10-29 01:22 | EDPHYS ---
Physician Documentation [facility] Name: Duke Marin III Age: 75 yrs Sex: Male : 1945 Arrival Date: 10/28/2020 Time: 20:34 Bed 5 Private MD: ED Physician Russell De La Paz HPI: 10/29 00:01 This 75 yrs old Male presents to ER via EMS with complaints of Weakness. luanne 00:01 The patient presents to the emergency department with weakness of the entire body, luanne generalized weakness. Onset: The symptoms/episode began/occurred yesterday. Context: occurred at home. Associated signs and symptoms: Pertinent positives: nausea, weakness. Severity of symptoms: At their worst the symptoms were mild in the emergency department the symptoms are unchanged. Patient's baseline: Neuro: alert but confused. Current symptoms: decreased level of consciousness, is arousable but tired. The patient has experienced similar episodes in the past. Historical: - Allergies: 10/28 21:25 Augmentin; ea 21:25 ephedrine sulfate; ea 21:25 Pseudoephedrine; ea - Home Meds: 21:25 "Cardia" 240mg Daily 140 mg daily [Active]; aspirin 81 mg Oral chew [Active]; Bystolic ea 5 mg Oral tab nightly [Active]; Bystolic 10 mg Oral tab twice a day [Active]; Crestor 10 mg Oral tab 1 tab once daily [Active]; Plavix 75 mg Oral tab 1 tab once daily [Active]; valsartan 75 mg Oral once daily [Active]; - PMHx: 21:25 Atrial Fib; Bladder cancer; CVA; enlarged aorta; CLL; Hypertension; SVT; ea - Immunization history:: Adult Immunizations up to date. - Social history:: Smoking status: unknown. - Family history:: not pertinent. ROS: 10/29 00:01 Constitutional: Negative for fever, chills, and weight loss, Eyes: Negative for injury, luanne pain, redness, and discharge, ENT: Negative for injury, pain, and discharge, Neck: Negative for injury, pain, and swelling, Cardiovascular: Negative for chest pain, palpitations, and edema, Respiratory: Negative for shortness of breath, cough, wheezing, and pleuritic chest pain, Back: Negative for injury and pain, : Negative for injury, bleeding, discharge, and swelling, MS/Extremity: Negative for injury and deformity, Skin: Negative for injury, rash, and discoloration, Psych: Negative for depression, anxiety, suicide ideation, homicidal ideation, and hallucinations, Allergy/Immunology: Negative for hives, rash, and allergies, Endocrine: Negative for neck swelling, polydipsia, polyuria, polyphagia, and marked weight changes, Hematologic/Lymphatic: Negative for swollen nodes, abnormal bleeding, and unusual bruising. Abdomen/GI: Positive for abdominal distension, of the epigastric area, right upper quadrant and left upper quadrant. Neuro: Positive for altered mental status, weakness. Exam: 00:01 Constitutional: This is a well developed, well nourished patient who is awake, alert, luanne and in no acute distress. Head/Face: Normocephalic, atraumatic. Eyes: Pupils equal round and reactive to light, extra-ocular motions intact. Lids and lashes normal. Conjunctiva and sclera are non-icteric and not injected. Cornea within normal limits. Periorbital areas with no swelling, redness, or edema. ENT: Nares patent. No nasal discharge, no septal abnormalities noted. Tympanic membranes are normal and external auditory canals are clear. Oropharynx with no redness, swelling, or masses, exudates, or evidence of obstruction, uvula midline. Mucous membranes moist. Neck: Trachea midline, no thyromegaly or masses palpated, and no cervical lymphadenopathy. Supple, full range of motion without nuchal rigidity, or vertebral point tenderness. No Meningismus. Chest/axilla: Normal chest wall appearance and motion. Nontender with no deformity. No lesions are appreciated. Cardiovascular: Regular rate and rhythm with a normal S1 and S2. No gallops, murmurs, or rubs. Normal PMI, no JVD. No pulse deficits. Respiratory: Lungs have equal breath sounds bilaterally, clear to auscultation and percussion. No rales, rhonchi or wheezes noted. No increased work of breathing, no retractions or nasal flaring. Abdomen/GI: Soft, non-tender, with normal bowel sounds. No distension or tympany. No guarding or rebound. No evidence of tenderness throughout. Back: No spinal tenderness. No costovertebral tenderness. Full range of motion. Male : Normal genitalia with no discharge or lesions. Skin: Warm, dry with normal turgor. Normal color with no rashes, no lesions, and no evidence of cellulitis. MS/ Extremity: Pulses equal, no cyanosis. Neurovascular intact. Full, normal range of motion. Psych: Awake, alert, with orientation to person, place and time. Behavior, mood, and affect are within normal limits. 00:01 Neuro: Orientation: is normal, appropriate for stated age, no acute changes, Mentation: is normal, appropriate for stated age, no acute changes, Memory: unable to test, Cranial nerves: grossly normal, is grossly normal based on the patient's age, no acute changes, Cerebellar function: no acute changes, Motor: moves all fours, Sensation: no obvious gross deficits, appropriate no acute changes, numbness, light touch sense is normal, Gait: not tested. Babinski testing is normal. 01:14 ECG was reviewed by the Attending Physician. [facility] Vital Signs: 10/28 20:35 BP 165 / 99; Pulse 79; Resp 15; Temp 97.5; Pulse Ox 98% on R/A; ch4 22:38 BP 165 / 86; Pulse 68; Resp 19; Pulse Ox 98% on R/A; ch4 23:15 BP 153 / 76; Pulse 64; Resp 17; Pulse Ox 98% ; ea 10/29 01:45 BP 141 / 76; Pulse 68; Resp 17; Pulse Ox 99% ; NIH Stroke Scale Scores: 00:01 NIHSS Score: 1 [facility] MDM: 10/28 20:53 Patient medically screened. [facility] 10/29 01:15 Data reviewed: vital signs, nurses notes, lab test result(s), EKG, radiologic studies, [facility] CT scan, plain films. Data interpreted: patient registration clerk: rate is 68 beats/min, rhythm is regular, Pulse oximetry: on room air is 98 %. Test interpretation: by ED physician or midlevel provider: ECG, plain radiologic studies. Counseling: I had a detailed discussion with the patient and/or guardian regarding: the historical points, exam findings, and any diagnostic results supporting the discharge/admit diagnosis, lab results, radiology results, the need for further work-up and treatment in the hospital. 10/28 20:53 Order name: Basic Metabolic Panel; Complete Time: 23:58 10/28 20:53 Order name: CBC with Diff; Complete Time: 23:58 10/28 20:53 Order name: LFT's; Complete Time: 23:58 10/28 20:53 Order name: Magnesium; Complete Time: 23:58 10/28 20:53 Order name: NT PRO-BNP; Complete Time: 23:58 10/28 20:53 Order name: PT-INR; Complete Time: 23:58 10/28 20:53 Order name: Troponin (emerg Dept Use Only); Complete Time: 23:58 10/28 20:53 Order name: XRAY Chest (1 view); Complete Time: 23:58 10/28 20:54 Order name: Lipase; Complete Time: 23:58 [facility] 10/28 20:54 Order name: Urine Culture [facility] 10/28 21:19 Order name: Urine Dipstick-Ancillary; Complete Time: 23:58 [facility] 10/28 22:23 Order name: CBC Smear Scan; Complete Time: 23:58 [facility] 10/29 01:08 Order name: COVID-19 : Document "Date of Symptom Onset" if Symptomatic. [facility] 10/29 04:58 Order name: SARS-COV-2 RT PCR [facility] 10/28 20:53 Order name: EKG; Complete Time: 20:53 10/28 20:53 Order name: Cardiac monitoring; Complete Time: 20:53 10/28 20:53 Order name: EKG - Nurse/Tech; Complete Time: 20:53 10/28 20:53 Order name: IV Saline Lock; Complete Time: 20:53 10/28 20:53 Order name: Labs collected and sent; Complete Time: 20:53 10/28 20:53 Order name: O2 Per Protocol; Complete Time: 20:53 10/28 20:53 Order name: O2 Sat Monitoring; Complete Time: 20:53 10/28 20:54 Order name: Urine Dipstick-Ancillary (obtain specimen); Complete Time: 21:17 [facility] 10/28 23:58 Order name: CT Head Brain wo Cont [facility] EC:14 Rate is 71 beats/min. Rhythm is regular. QRS [place] is Normal. HI interval is prolonged luanne at 220 msec. QRS interval is normal. QT interval is normal. No Q waves. T waves are Normal. No ST changes noted. Clinical impression: NSR w/ Non-specific ST/T Changes, 1st degree heart block, and No evidence of ischemia. Interpreted by me. Reviewed by me. Administered Medications: 10/28 21:04 Drug: NS 0.9% 1000 ml Route: IV; Rate: 125 ml/hr; Site: left forearm; ch4 10/29 00:09 Drug: Rocephin (cefTRIAXone) 1 grams Route: IV; Rate: per protocol; Site: left wrist; em 01:45 Drug: Zithromax (azithromycin) 500 mg Route: PO; ea Disposition Summary: 10/29/20 01:22 Hospitalization Ordered Hospitalization Status: Inpatient Admission luanne Provider: Javi Looney cha Condition: Fair luanne Problem: new luanne Symptoms: have improved luanne Bed/Room Type: Standard luanne Location: Telemetry/MedSurg (Inpatient)(10/29/20 06:49) tl1 Room Assignment: 231(10/29/20 06:49) tl1 Diagnosis - Weakness luanne - Pneumonia, unspecified organism luanne - UTI/ Urinary tract infection, site not specified luanne Forms: - Medication Reconciliation Form luanne - SBAR form luanne NIH Stroke Scale - NIH Stroke Score Date: 10/29/2020 Time: 00:01 Total Score = 1 1a. Level of Consciousness (LOC) - 0(Alert) 1b. Level of Consciousness (LOC) (Month \\T\\ Age) - 0(Both) 1c. LOC Commands (Open \\T\\ Closes Eyes/[employer]) - 0(Both) 2. Best Gaze (Lateral Gaze Paresis) - 0(Normal) 3. Visual Field Loss - 0(No visual loss) 4. Facial Palsy - 0(Normal) 5a. Left Arm: Motor (10-second hold) - 0(No drift) 5b. Right Arm: Motor (10-second hold) - 0(No drift) 6a. Left Leg: Motor (5-second hold - always test supine) - 0(No drift) 6b. Right Leg: Motor (5-second hold - always test supine) - 0(No drift) 7. Limb Ataxia (finger/nose \\T\\ heel/luo - test with eyes open) - 0(Absent) 8. Sensory Loss (pinprick arms/legs/face) - 0(Normal) 9. Best Language: Aphasia (description/naming/reading) - 0(No aphasia) 10. Dysarthria (speech clarity - read or repeat words) - 1(Mild to Moderate) 11. Extinction and Inattention (visual/tactile/auditory/spatial/personal) - 0(No abnormality) Initials: luanne Signatures: Dispatcher [employer] Russell Roe MD MD cha Munoz, Edgar, RN Gini George RN RN tl1 Radha Ferraro RN RN ea Herman, Christina, RN RN ch4 Corrections: (The following items were deleted from the chart) 03:36 01:22 Telemetry/MedSurg (Inpatient) luanne tl1 03:36 01:22 luanne tl1 06:49 03:36 [facility] ER HOLD tl1 tl1 06:49 03:36 ERHOLD- tl1 tl1
[2020-10-29] MEDS ORDERED: ACETAMINOPHEN 500 MG TAB PO PRN (02:01)
[2020-10-29] MEDS ORDERED: ONDANSETRON 4 MG/2 ML VIAL IV PRN (02:01)
[2020-10-29] MEDS: NA CHLORIDE 0.9% 1,000 ML IV SCH ×3 (02:01→21:53)
[2020-10-29] MEDS ORDERED: AZITHROMYCIN 250 MG TAB ONE (02:03)
[2020-10-29 02:23] VITALS: BMI 26.1
[2020-10-29] MEDS: FAMOTIDINE 20 MG/2 ML VIAL IV SCH ×2 (08:44→21:45)
[2020-10-29] MEDS: CEFTRIAXONE/SWI 1gm 1 GM/10 ML SYR IV SCH ×2 (08:44→21:46)
[2020-10-29] MEDS ORDERED: CEFTRIAXONE 1 GM/NS 50 ML 1 GM/50 ML BAG IV SCH (09:00)
--- NOTE | 2020-10-29 11:18 | RAD REPORT ---
EXAM DESCRIPTION: CT - Head Brain Wo Cont - 10/29/2020 6:23 am CLINICAL HISTORY: The patient is 75 years old and is Male; DIZZINESS TECHNIQUE: Axial computed tomography images of the head/brain without intravenous contrast. Sagitt al and coronal reformatted images were created and reviewed. This CT exam was performed using one o r more of the following dose reduction techniques: automated exposure control, adjustment of the mA and/or kV according to patient size, and/or use of iterative reconstruction technique. COMPARISON: CT head August 08, 2020 FINDINGS: Artifacts: Artifact limiting evaluation of the posterior fossa. Brain: Remote lacunar infarcts involving the right basal ganglia and posterior limb of the inter nal capsule. Moderate nonspecific white matter changes likely related to chronic microvascular ischemic d isease. Mild cerebral atrophy. No hemorrhage. Ventricles: Mild to moderate ventricular prominence. Bones/joints: Unremarkable. No acute fracture. Soft tissues: Unremarkable. Sinuses: Unremarkable as visualized. Mastoid air cells: Unremarkable as visualized. No mastoid effusion. IMPRESSION: No acute intracranial abnormality. Electronically signed by: Jean Slater MD 10/29/2020 1:28 AM CDT Due to temporary technical issues with the PACS/Fluency reporting system, reports are being signed by the in house radiologist without review as a courtesy to ensure prompt reporting. The interpreting r adiologist is fully responsible for the content of the report.
--- NOTE | 2020-10-29 15:34 | PN ---
Date of Progress Note: 10/29/2020 The patient states he feels about the same. He still has minimal movement in his extremities. He is very weak, remains afebrile. His general condition has deteriorated significantly over the past few months and his episodes are probably precipitated by UTI. Does not present with any pneumonia sympt oms; however, we will repeat chest x-ray in a.m. HR/MODL Voice ID: [id number] Report ID: [id number]
[2020-10-29] MEDS: AZITHROMYCIN 250 MG TAB PO SCH (21:46)
[2020-10-29] MEDS: NEBIVOLOL HCL 5 MG TAB PO SCH (21:46)
[2020-10-29] MEDS: ROSUVASTATIN 10 MG TAB PO SCH (21:46)
[2020-10-30 05:01] LABS: Absolute Lymphocytes (CBC) 0.5 K/uL (0.7-4.9); Basophils % 0.7 % (0-1.3); Hematocrit 36.5 % (39.6-49.0); Lymphocytes % 10.7 % (15.3-44.8); MPV 7.9 fL (7.6-11.3); RBC Red Blood Cell Count 4.33 M/uL (4.33-5.43)
[2020-10-30 05:10] LABS: BUN Blood Urea Nitrogen 16 mg/dL (7-18); Bicarbonate 24 mmol/L (21-32); Glucose Level 136 mg/dL (74-106); Sodium Level 145 mmol/L (136-145)
--- NOTE | 2020-10-30 07:32 | RAD REPORT ---
EXAM DESCRIPTION: Cat Single View10/30/2020 6:03 am CLINICAL HISTORY: Chest pain COMPARISON: October 28, 2020 FINDINGS: Mild bilateral pulmonary opacities appear mostly resolved. Heart remains enlarged. Aorta is tortuous/ectatic
[2020-10-30 08:39] LABS: Blood Morphology Comment NOT SEEN (NOT SEEN); Hypersegmented Neutrophils PRESENT; Platelet Estimate ADEQ
[2020-10-30] MEDS: NA CHLORIDE 0.9% 1,000 ML IV SCH ×2 (09:06→17:46)
[2020-10-30] MEDS: FAMOTIDINE 20 MG/2 ML VIAL IV SCH ×2 (09:07→19:46)
[2020-10-30] MEDS: DILTIAZEM HCL 120 MG SR CAP PO SCH (09:07)
[2020-10-30] MEDS: CLOPIDOGREL 75 MG TABLET PO SCH (09:07)
[2020-10-30] MEDS: CEFTRIAXONE/SWI 1gm 1 GM/10 ML SYR IV SCH (09:07)
[2020-10-30] MEDS: NEBIVOLOL HCL 5 MG TAB PO SCH (12:02)
[2020-10-30] MEDS ORDERED: POTASSIUM CL SA 10 MEQ TAB PO ONE ×2 (15:33→23:22)
--- NOTE | 2020-10-30 18:41 | PN ---
Date of Progress Note: 10/30/2020 Basically, patient is the same, he is rather immobile, responsive, perhaps improved since his admissi on. Hemoglobin has dropped down in the 12 range, obvious hydration factor. Awaiting the culture and positive urine and will put in for rehab consult. All the possibility of placement will be discussed with the family. HR/MODL Voice ID: [id number] Report ID: [id number]
[2020-10-30] MEDS: AZITHROMYCIN 250 MG TAB PO SCH (19:45)
[2020-10-30] MEDS: ROSUVASTATIN 10 MG TAB PO SCH (19:45)
[2020-10-30] MEDS: CEFTRIAXONE 1 GM/NS 50 ML 1 GM/50 ML BAG IV SCH (19:46)
[2020-10-31] MEDS: NA CHLORIDE 0.9% 1,000 ML IV SCH ×2 (03:16→14:01)
[2020-10-31 05:16] LABS: BUN Blood Urea Nitrogen 11 mg/dL (7-18); Bicarbonate 22 mmol/L (21-32); Glucose Level 123 mg/dL (74-106); Potassium 3.6 mmol/L (3.5-5.1); Sodium Level 142 mmol/L (136-145)
[2020-10-31] MEDS ORDERED: POTASSIUM CL SA 10 MEQ TAB PO ONE (05:30)
[2020-10-31] MEDS: CEFTRIAXONE 1 GM/NS 50 ML 1 GM/50 ML BAG IV SCH ×2 (09:00→21:08)
[2020-10-31] MEDS: CLOPIDOGREL 75 MG TABLET PO SCH (11:04)
[2020-10-31] MEDS: DILTIAZEM HCL 120 MG SR CAP PO SCH (11:04)
[2020-10-31] MEDS: NEBIVOLOL HCL 5 MG TAB PO SCH (11:05)
[2020-10-31] MEDS: ENOXAPARIN 40 MG/0.4 ML SQ SCH (11:06)
[2020-10-31] MEDS: FAMOTIDINE 20 MG/2 ML VIAL IV SCH ×2 (11:06→21:06)
--- NOTE | 2020-10-31 14:58 | PN ---
Date of Progress Note: 10/31/2020 The patient is basically status quo, although his hydration is improved. He has a significant output incontinent. We will re-evaluate his urine, which was positive should contrib tazlina to his increasing symptomatology. He has been seen by Physical Therapy, who states he has diffic ulty following any therapeutic program. The nurse has difficulty feeding himself as well. Rehab con sult was done, however, I feel that he would probably not the good candidate at this time. We will c ontinue IV antibiotics for the next couple of days, repeat the UA, and see where we are going as far as the sepsis contribution to his overall state. Of progress note on 10/31 for Edwin Noyola chart #[id number] the patient basically status quo pulse off t he third day. His intake is increased somewhat quite as orientated as he was yesterday. The physica l therapy continues to work with on an I feel he would be a good candidate in a couple of days for re hab maureen and. Zaki. HR/MODL Voice ID: [id number] Report ID: [id number]
[2020-10-31] MEDS: AZITHROMYCIN 250 MG TAB PO SCH (21:05)
[2020-10-31] MEDS: ROSUVASTATIN 10 MG TAB PO SCH (21:07)
[2020-11-01 06:52] LABS: BUN Blood Urea Nitrogen 13 mg/dL (7-18); Bicarbonate 25 mmol/L (21-32); Glucose Level 137 mg/dL (74-106); Potassium 3.5 mmol/L (3.5-5.1); Sodium Level 141 mmol/L (136-145)
[2020-11-01] MEDS: CEFTRIAXONE 1 GM/NS 50 ML 1 GM/50 ML BAG IV SCH ×2 (10:03→20:32)
[2020-11-01] MEDS: ENOXAPARIN 40 MG/0.4 ML SQ SCH (10:04)
[2020-11-01] MEDS: DILTIAZEM HCL 120 MG SR CAP PO SCH (10:04)
[2020-11-01] MEDS: FAMOTIDINE 20 MG/2 ML VIAL IV SCH ×2 (10:05→20:33)
[2020-11-01] MEDS: CLOPIDOGREL 75 MG TABLET PO SCH (10:05)
[2020-11-01] MEDS: NEBIVOLOL HCL 5 MG TAB PO SCH (10:06)
--- NOTE | 2020-11-01 13:04 | PN ---
Date of Progress Note: 11/01/2020 The patient does seem better today. He is much more alert, follows commands. Moving his arm, so I t hink he may be a candidate for rehab. As far as the clinical situation is concerned, his blood work still seems stable. I will keep him on the IV antibiotics for the urinary tract infection and see if the symptoms are much less pronounced after another day of IV antibiotics. His vital signs are stab le. His intake has improved somewhat today as well. We will continue to monitor, discuss the rehab situation tomorrow, and then decide upon disposition. HR/MODL Voice ID: [id number] Report ID: [id number]
--- NOTE | 2020-11-01 13:50 | HP ---
Date of Admission: 10/29/2020 Chief Complaint: Generalized weakness, generalized malaise. History Of Present Illness: The patient was brought to the emergency room. History is obtained main ly from the as the patient is poor historian. She states that over the past few weeks, especial ly the past few days, he has gone downhill both mentally and physically, and became anorectic, more c onfused, and not his usual baseline. The patient has significant illnesses over the past few years i ncluding CVA, chronic lymphocytic leukemia resulting in significant anemia secondary to CLL, chronic disease and possibly stated chemo. He had a cardiovascular procedure a number of months ago, which r esulted in significant complications and eventually with generalized weakness has impaired activities of daily living. He was admitted to [facility] where he stayed for some time. He was the n discharged and returned home. Home health was involved at this stage and as mentioned in the fairl y well for his overall condition until the past week. Basically at that time, he was diagnosed with recurrent leukemia and chemotherapy, which was last time in June. Bladder cancer in the past as well. This has resulted in increased UTIs, Klebsiella has been cultured, has some pressure ulcers. Neuro logically, he had some decreased range of motion deficits, strength deficits, appreciated responded s omewhat to the therapy. Family History: Noncontributory. Social History: DICTATION ENDS HERE. HR/MODL Voice ID: [id number]
--- NOTE | 2020-11-01 14:05 | HP ---
Date of Admission: 10/29/2020 Continuation: The patient had an aortic aneurysm repair. Social History: The patient has a history of smoking and social alcohol in the past. Physical Examination: General: The patient is rather lethargic elderly male. Vital Signs: Stable. Head and Neck: Normocephalic. Pupils are equal and reactive to light and accommodation. Fundi nega tive. Trachea midline. Thyroid not palpable. ENT negative. Chest: Clear to P and A. Cardiovascular: PMI midclavicular line. Heart sounds normal. Peripheral pulses present and equal b ilaterally. Abdomen: No organomegaly. Bowel sounds present. Extremities: Marked dehydration. Good tone and poor motion in all directions of the right upper arm . Some paresis of the left arm. Decreased motion of the lower extremities. Rectal: Deferred. Impression: Altered mental status, dehydration, , chronic lymphocytic leukemia and anemia, cerebrovascular accident, congestive heart failure, chronic obstructive pulmonary disease. Plan: The patient will be admitted, placed on IV fluids. Workup revealed the urinary tract infectio n, therefore, placed on IV antibiotics and further workup will be dependent on the progress. PT will be instituted as well. HR/MODL Voice ID: [id number]
[2020-11-01] MEDS: ROSUVASTATIN 10 MG TAB PO SCH (20:33)
[2020-11-01] MEDS: AZITHROMYCIN 250 MG TAB PO SCH (20:33)
[2020-11-02 05:35] LABS: Potassium 3.4 mmol/L (3.5-5.1)
[2020-11-02] MEDS ORDERED: POTASSIUM CL SA 10 MEQ TAB PO ONE (05:39)
[2020-11-02] MEDS: ENOXAPARIN 40 MG/0.4 ML SQ SCH (08:15)
[2020-11-02] MEDS: NEBIVOLOL HCL 5 MG TAB PO SCH (08:15)
[2020-11-02] MEDS: DILTIAZEM HCL 120 MG SR CAP PO SCH (08:16)
[2020-11-02] MEDS: CEFTRIAXONE 1 GM/NS 50 ML 1 GM/50 ML BAG IV SCH ×2 (08:16→21:59)
[2020-11-02] MEDS: CLOPIDOGREL 75 MG TABLET PO SCH (08:16)
[2020-11-02] MEDS: FAMOTIDINE 20 MG/2 ML VIAL IV SCH (08:16)
[2020-11-02] MEDS: NA CHLORIDE 0.9% 1,000 ML IV SCH ×2 (15:06→22:00)
--- NOTE | 2020-11-02 16:09 | PN ---
Date of Progress Note: 11/02/2020 The patient is more lethargic today. He has not been eating. He does move his right arm with comman ds. His overall status other than the lethargy is basically the same. Awaiting decision on disposit ion for rehab. In the meantime, we will rehydrate him with some normal saline. The possibility of h ydration factor entering into the [employer] situation is a possibility. HR/MODL Voice ID: [id number] Report ID: [id number]
[2020-11-02] MEDS: ROSUVASTATIN 10 MG TAB PO SCH (21:59)
[2020-11-02] MEDS: AZITHROMYCIN 250 MG TAB PO SCH (21:59)
[2020-11-02] MEDS: FAMOTIDINE 20 MG TAB PO SCH (21:59)
[2020-11-03] MEDS: NA CHLORIDE 0.9% 1,000 ML IV SCH ×3 (01:00→20:08)
[2020-11-03 06:02] LABS: Potassium 3.6 mmol/L (3.5-5.1)
[2020-11-03] MEDS: NEBIVOLOL HCL 5 MG TAB PO SCH (09:00)
[2020-11-03] MEDS: ENOXAPARIN 40 MG/0.4 ML SQ SCH (09:01)
[2020-11-03] MEDS: DILTIAZEM HCL 120 MG SR CAP PO SCH (09:01)
[2020-11-03] MEDS: FAMOTIDINE 20 MG TAB PO SCH ×2 (09:01→20:07)
[2020-11-03] MEDS: CLOPIDOGREL 75 MG TABLET PO SCH (09:02)
[2020-11-03] MEDS: CEFTRIAXONE 1 GM/NS 50 ML 1 GM/50 ML BAG IV SCH (09:12)
[2020-11-03] MEDS: ROSUVASTATIN 10 MG TAB PO SCH (20:07)
[2020-11-03] MEDS: CEFDINIR 300 MG CAP PO SCH (20:07)
[2020-11-03] MEDS: AZITHROMYCIN 250 MG TAB PO SCH (20:08)
--- NOTE | 2020-11-03 20:16 | PN ---
Date of Progress Note: 11/03/2020 The patient is basically status quo, although he is a little more responsive today and following comm ands. His appetite is still decreased. He has been turned down for the rehab unit here and discusse d disposition with his and the antibiotics were changed to p.o. in the form of cephalosporin. C onsideration of disposition is SNF versus home. We will discuss with her in the a.m. HR/MODL Voice ID: [id number] Report ID: [id number]
[2020-11-03] MEDS ORDERED: POTASSIUM CL SA 10 MEQ TAB PO ONE (21:00)
[2020-11-04] MEDS: NA CHLORIDE 0.9% 1,000 ML IV SCH ×4 (05:35→23:45)
[2020-11-04 07:58] LABS: Potassium 3.8 mmol/L (3.5-5.1)
[2020-11-04] MEDS: ENOXAPARIN 40 MG/0.4 ML SQ SCH (08:45)
[2020-11-04] MEDS: NEBIVOLOL HCL 5 MG TAB PO SCH (08:45)
[2020-11-04] MEDS: DILTIAZEM HCL 120 MG SR CAP PO SCH (08:46)
[2020-11-04] MEDS: CLOPIDOGREL 75 MG TABLET PO SCH (08:46)
[2020-11-04] MEDS: FAMOTIDINE 20 MG TAB PO SCH ×2 (08:46→21:02)
[2020-11-04] MEDS: CEFDINIR 300 MG CAP PO SCH (08:50)
[2020-11-04] MEDS ORDERED: POTASSIUM CL SA 10 MEQ TAB PO ONE (09:00)
--- NOTE | 2020-11-04 19:34 | PN ---
Date of Progress Note: 11/04/2020 The patient does seem a little more responsive today. He is actually moving both arms and seems to b e his pattern, which is variable as far as his responsiveness. Since he has been turned down by the insurance company for rehab, his would like to take him home. He was therefore discharged, cont inued on his usual medication with the addition of cefdinir for 1 week for his urinary tract infectio n, which I feel was the significant factor in changing his generalized condition. He will be followe d up with home health and repeat blood work and urine in 1 week. HR/MODL Voice ID: [id number] Report ID: [id number]
[2020-11-04] MEDS ORDERED: cloNIDine HCL 0.1 MG TAB PO PRN (20:25)
[2020-11-04] MEDS: AZITHROMYCIN 250 MG TAB PO SCH (20:58)
[2020-11-04] MEDS: ROSUVASTATIN 10 MG TAB PO SCH (20:58)
[2020-11-05] MEDS: ENOXAPARIN 40 MG/0.4 ML SQ SCH (09:53)
[2020-11-05] MEDS: CEFDINIR 300 MG CAP PO SCH (09:53)
[2020-11-05] MEDS: NA CHLORIDE 0.9% 1,000 ML IV SCH ×2 (09:53→13:00)
[2020-11-05] MEDS: FAMOTIDINE 20 MG TAB PO SCH ×2 (09:54→21:13)
[2020-11-05] MEDS: DILTIAZEM HCL 120 MG SR CAP PO SCH (09:54)
[2020-11-05] MEDS: NEBIVOLOL HCL 5 MG TAB PO SCH (09:54)
[2020-11-05] MEDS: CLOPIDOGREL 75 MG TABLET PO SCH (09:56)
[2020-11-05] MEDS: ENSURE HIGH PROTEIN 237 ML CAN PO SCH (21:13)
[2020-11-05] MEDS: ROSUVASTATIN 10 MG TAB PO SCH (21:13)
[2020-11-05] MEDS: JUVEN PACKET PO SCH (21:13)
[2020-11-05] MEDS: AZITHROMYCIN 250 MG TAB PO SCH (21:13)
[2020-11-06] MEDS: NA CHLORIDE 0.9% 1,000 ML IV SCH (00:37)
--- NOTE | 2020-11-06 06:21 | P.PN ---
Subjective Date of Service: 11/06/20 Primary Care Provider: Dr. Looney, I am covering for him Subjective: Improving, Doing well Physical Examination - Vital Signs Temperature: 97.7 F Blood Pressure: 179/82 Pulse: 55 Respirations: 18 Pulse Ox (%): 95 Assessment & Plan Discharge Plan: Other (Inpatient rehab) Plan to discharge in: 48 Hours Physician Review Additional Text: COVID: Negative CXR: COMPARISON: October 28, 2020 FINDINGS: Mild bilateral pulmonary opacities appear mostly resolved. Heart remains enlarged. Aorta is tortuous/ectatic CT HEad: COMPARISON: CT head August 08, 2020 FINDINGS: Artifacts: Artifact limiting evaluation of the posterior fossa. Brain: Remote lacunar infarcts involving the right basal ganglia and posterior limb of the internal capsule. Moderate nonspecific white matter changes likely related to chronic microvascular ischemic disease. Mild cerebral atrophy. No hemorrhage. Ventricles: Mild to moderate ventricular prominence. Bones/joints: Unremarkable. No acute fracture. Soft tissues: Unremarkable. Sinuses: Unremarkable as visualized. Mastoid air cells: Unremarkable as visualized. No mastoid effusion. IMPRESSION: No acute intracranial abnormality. Physical Exam: GENERAL: The patient is a well-developed, well-nourished, in no apparent distress. Alert and oriented x3. VITAL SIGNS: Reviewed HEENT: Head is normocephalic and atraumatic. Extraocular muscles are intact. Pupils are equal, round, and reactive to light and accommodation. Nares appeared normal. Mouth is well hydrated and without lesions. Mucous membranes are moist. NECK: Supple. No carotid bruits. No lymphadenopathy or thyromegaly. LUNGS: Clear to auscultation. No crackles or wheezes are heard. HEART: Regular rate and rhythm, no appreciable gallops, rubs, murmurs or extra heart sounds ABDOMEN: Soft, nontender, and nondistended. Positive bowel sounds. No hepatosplenomegaly was noted. EXTREMITIES: Without any cyanosis, clubbing, rash, lesions or peripheral edema. NEUROLOGIC: The patient is oriented to person, place and time. Strength and sensation are grossly intact. Face is symmetric. SKIN: Normal color, turgor and temperature. No ulcerations or rashes noted. Impression: Acute encephalopathy secondary to UTI, urine culture positive for Klebsiella pneumoniae Hypertension History of CVA Hyperlipidemia Chronic CHF COPD History of chronic lymphocytic leukemia Plan: Acute encephalopathy secondary to UTI, urine culture positive for Klebsiella pneumoniae: Patient remains on oral Ceftin 600 mg daily. Will need to be t reated for 7 days. Patient has been denied to fifth floor inpatient rehab. trying to send patient to [facility] rehab in [place]. Patient encouraged to continue with physical therapy. Needs to work with physical therapy at least 3 hours. We will also order occupational therapy. Case discussed with and social work. If this fails wants patient to go home. She prefers not to go to skilled facility. Hypertension: Blood pressure still elevated. Will increase Bystolic to 20 mg for better control. Continue diltiazem 240 mg daily History of CVA: Continue aspirin 81 mg and Plavix 75 mg Hyperlipidemia: Continue Crestor 10 mg daily Chronic CHF: Overall stable. Will discontinue IV fluids. COPD: Overall stable. Currently on room air History of chronic lymphocytic leukemia: Overall stable. Will monitor closely. Code Status: DVT prophylaxis: Lovenox Advanced Care Planning-30 minutes: Patient has been denied to fifth floor inpatient rehab. Currently trying to go to [facility] rehab in [place]. If denied wants patient to go home Time Spent Managing Pts Care (In Minutes): 55
[2020-11-06] MEDS: NEBIVOLOL HCL 5 MG TAB PO SCH (06:27)
[2020-11-06 06:59] LABS: Potassium 3.4 mmol/L (3.5-5.1)
[2020-11-06] MEDS ORDERED: POTASSIUM 25 MEQ EFFERV TAB PO ONE ×2 (09:00→16:00)
[2020-11-06] MEDS: CEFDINIR 300 MG CAP PO SCH (09:11)
[2020-11-06] MEDS: ENSURE HIGH PROTEIN 237 ML CAN PO SCH ×3 (09:11→21:00)
[2020-11-06] MEDS: DILTIAZEM HCL 120 MG SR CAP PO SCH (09:12)
[2020-11-06] MEDS: CLOPIDOGREL 75 MG TABLET PO SCH (09:12)
[2020-11-06] MEDS: FAMOTIDINE 20 MG TAB PO SCH ×2 (09:12→20:04)
[2020-11-06] MEDS: ENOXAPARIN 40 MG/0.4 ML SQ SCH (09:12)
[2020-11-06] MEDS: JUVEN PACKET PO SCH ×3 (09:13→21:00)
[2020-11-06] MEDS ORDERED: NEBIVOLOL HCL 20 MG TABLET PO ONE (18:00)
[2020-11-06] MEDS ORDERED: NEBIVOLOL HCL 20 MG TABLET PO SCH (18:00)
[2020-11-06] MEDS: ACETAMINOPHEN 325 MG TABLET PO PRN (18:10)
[2020-11-06] MEDS: ROSUVASTATIN 10 MG TAB PO SCH (20:04)
[2020-11-06 21:29] LABS: Absolute Lymphocytes (CBC) 0.3 K/uL (0.7-4.9); Basophils % 0.2 % (0-1.3); Lymphocytes % 4.1 % (15.3-44.8); MPV 8.3 fL (7.6-11.3); RBC Red Blood Cell Count 4.66 M/uL (4.33-5.43)
[2020-11-06 22:06] LABS: Blood Morphology Comment NOT SEEN (NOT SEEN); Platelet Estimate ADEQ
[2020-11-07 04:33] LABS: Potassium 3.4 mmol/L (3.5-5.1)
--- NOTE | 2020-11-07 06:10 | P.PN ---
Subjective Date of Service: 11/07/20 Primary Care Provider: Dr. Looney, I am covering for him Subjective: Other (With increase sedation today. Difficult to arouse.) Physical Examination - Vital Signs Temperature: 97.1 F Blood Pressure: 163/77 Pulse: 75 Respirations: 17 Pulse Ox (%): 95 Assessment & Plan Discharge Plan: Other (Inpatient rehab) Plan to discharge in: 48 Hours Physician Review Additional Text: COVID: Negative CXR: COMPARISON: October 28, 2020 FINDINGS: Mild bilateral pulmonary opacities appear mostly resolved. Heart remains enlarged. Aorta is tortuous/ectatic CT HEad: COMPARISON: CT head August 08, 2020 FINDINGS: Artifacts: Artifact limiting evaluation of the posterior fossa. Brain: Remote lacunar infarcts involving the right basal ganglia and posterior limb of the internal capsule. Moderate nonspecific white matter changes likely related to chronic microvascular ischemic disease. Mild cerebral atrophy. No hemorrhage. Ventricles: Mild to moderate ventricular prominence. Bones/joints: Unremarkable. No acute fracture. Soft tissues: Unremarkable. Sinuses: Unremarkable as visualized. Mastoid air cells: Unremarkable as visualized. No mastoid effusion. IMPRESSION: No acute intracranial abnormality. Physical Exam: GENERAL: The patient is a well-developed, well-nourished, in no apparent distress. Alert and oriented x3. VITAL SIGNS: Reviewed HEENT: Head is normocephalic and atraumatic. Extraocular muscles are intact. Pupils are equal, round, and reactive to light and accommodation. Nares appeared normal. Mouth is well hydrated and without lesions. Mucous membranes are moist. NECK: Supple. No carotid bruits. No lymphadenopathy or thyromegaly. LUNGS: Clear to auscultation. No crackles or wheezes are heard. HEART: Regular rate and rhythm, no appreciable gallops, rubs, murmurs or extra heart sounds ABDOMEN: Soft, nontender, and nondistended. Positive bowel sounds. No hepatosplenomegaly was noted. EXTREMITIES: Without any cyanosis, clubbing, rash, lesions or peripheral edema. NEUROLOGIC: The patient is oriented to person, place and time. Strength and sensation are grossly intact. Face is symmetric. SKIN: Normal color, turgor and temperature. No ulcerations or rashes noted. Impression: Acute encephalopathy secondary to UTI, urine culture positive for Klebsiella pneumoniae Hematuria Hypertension History of CVA Hyperlipidemia Chronic CHF COPD History of chronic lymphocytic leukemia Plan: Acute encephalopathy secondary to UTI, urine culture positive for Klebsiella pneumoniae: Patient with increased sedation today. This apparently started yesterday. Some hematuria noted. Will recheck blood culture, urine culture, procalcitonin and lactic acid. Will discontinue Ceftin. cloth coverer to Rocephin IV. Will check bladder scan. Patient may require Saba catheter with irrigation. Await findings. We will also order CT head to further evaluate. CT head done earlier this hospitalization was unremarkable. Will monitor closely. Patient being evaluated for [facility] rehab in [place]. Will discuss with . Hematuria: Likely related to UTI. Continue with above plan of care. Will check bladder scan. Patient may require Saba catheter with irrigation. Will monitor closely. Hypertension: Blood pressure better controlled. Bystolic was increased yesterday. Bystolic to 20 mg for better control. Continue diltiazem 240 mg daily History of CVA: Continue aspirin 81 mg and Plavix 75 mg daily. Hold aspirin and Plavix due to hematuria. Hyperlipidemia: Continue Crestor 10 mg daily Chronic CHF: Overall stable. No longer on IV fluids. Will check chest x-ray. Patient on room air. COPD: Overall stable. Currently on room air History of chronic lymphocytic leukemia: Overall stable. Will monitor closely. Code Status: Full code will need to verify with . DVT prophylaxis: Lovenox currently on hold due to current status. Advanced Care Planning-30 minutes: Patient has been denied to fifth floor inpatient rehab. Currently trying to go to [facility] rehab in [place]. If denied wants patient to go home Time Spent Managing Pts Care (In Minutes): 55
[2020-11-07] MEDS: CEFTRIAXONE 1 GM/NS 50 ML 1 GM/50 ML BAG IV SCH ×3 (09:00→10:21)
[2020-11-07] MEDS ORDERED: POTASSIUM 25 MEQ EFFERV TAB PO ONE (09:00)
[2020-11-07] MEDS ORDERED: POTASSIUM CL SA 10 MEQ TAB PO ONE (09:00)
--- NOTE | 2020-11-07 09:32 | RAD REPORT ---
EXAM DESCRIPTION: RAD - Chest Single View - 11/07/2020 9:09 am CLINICAL HISTORY: AMS, hx of CHF COMPARISON: Chest Single View dated 10/30/2020; Chest Single View dated 10/28/2020; Chest Single View dated 08/08/2020; Chest Single View dated 03/03/2020 FINDINGS: Lines: None. Lungs: No evidence of edema or pneumonia. Pleural: No significant pleural effusions or pneumothorax. Cardiac: Similar cardiomegaly. Bones: No acute fractures. Other: IMPRESSION: No acute cardiopulmonary disease.
--- NOTE | 2020-11-07 09:32 | RAD REPORT ---
EXAM DESCRIPTION: CT - Head Brain Wo Cont - 11/07/2020 8:56 am CLINICAL HISTORY: increase sedation COMPARISON: Head Brain Wo Cont dated 10/29/2020; Head Brain Wo Cont dated 08/08/2020 TECHNIQUE: All CT scans are performed using dose optimization technique as appropriate and may inclu de automated exposure control or mA/KV adjustment according to patient size. FINDINGS: No intracranial hemorrhage, hydrocephalus or extra-axial fluid collection.No areas of brai n edema or evidence of midline shift. Moderate chronic small vessel ischemic changes. Remote right ba nicky ganglia lacunar infarct. Remote appearing right frontal lobe infarct. Arachnoid cyst along the ri ght middle cranial fossa. Cerebral atrophy. The paranasal sinuses and mastoids are clear. The calvarium is intact. IMPRESSION: No acute intracranial abnormality. Chronic changes similar to 10/29/2020.
[2020-11-07 10:04] LABS: Absolute Lymphocytes (CBC) 0.5 K/uL (0.7-4.9); Basophils % 0.9 % (0-1.3); Hematocrit 37.5 % (39.6-49.0); Lymphocytes % 8.5 % (15.3-44.8); MPV 8.1 fL (7.6-11.3); RBC Red Blood Cell Count 4.49 M/uL (4.33-5.43)
[2020-11-07] MEDS: DILTIAZEM HCL 120 MG SR CAP PO SCH (10:10)
[2020-11-07] MEDS: FAMOTIDINE 20 MG TAB PO SCH ×2 (10:12→20:27)
[2020-11-07] MEDS: NEBIVOLOL HCL 20 MG TABLET PO SCH (10:14)
[2020-11-07] MEDS: ENSURE HIGH PROTEIN 237 ML CAN PO SCH ×2 (10:16→20:28)
[2020-11-07] MEDS: JUVEN PACKET PO SCH ×2 (10:17→20:28)
[2020-11-07 11:09] LABS: Protime INR 1.28
[2020-11-07 12:41] LABS: Urine Appearance TURBID (Clear); Urine Bilirubin ND (Negative); Urine Blood ND (Negative); Urine Color RED (Yellow); Urine Glucose ND (Negative); Urine pH ND (5.0-7.0)
[2020-11-07 12:42] LABS: Urine Microscopic Reflex ORDER UMIC; Urine Protein ND (Negative); Urine Specific Gravity ND (1.005-1.030); Urine Urobilinogen ND mg/dL (0.2-1.0)
[2020-11-07 12:53] LABS: Urine Bacteria 20-50 /HPF (NONE SEEN); Urine RBC TNTC /HPF (NONE SEEN)
[2020-11-07 12:54] LABS: Urine Mucus 1+ /HPF (NONE SEEN)
[2020-11-07] MEDS: KCL 20 MEQ/100 mL IVPB 20 MEQ/100 ML BAG IV SCH ×2 (13:00→13:15)
[2020-11-07] MEDS: SODIUM CHL 0.9% IRR SOLN 2000 ML IRR SCH ×2 (13:15→18:04)
--- NOTE | 2020-11-07 15:46 | RAD REPORT ---
EXAM DESCRIPTION: US - Urinary Bladder - 11/07/2020 3:02 pm CLINICAL HISTORY: hematuria COMPARISON: AAA Screening dated 03/03/2020 FINDINGS: Saba catheter within the bladder. The bladder is largely decompressed and not well evalua brina. No obvious abnormality identified. IMPRESSION: Saba catheter in a decompressed bladder.
[2020-11-07] MEDS ORDERED: KCL 20 MEQ/100 mL IVPB 20 MEQ/100 ML BAG IV ONE (18:00)
[2020-11-07] MEDS: ACETAMINOPHEN 325 MG TABLET PO PRN (20:27)
[2020-11-07] MEDS: NYSTATIN PWDR 100000 UNIT/GM TOP SCH (20:28)
[2020-11-07] MEDS: ROSUVASTATIN 10 MG TAB PO SCH (20:28)
[2020-11-08 06:15] LABS: Absolute Lymphocytes (CBC) 0.5 K/uL (0.7-4.9); Basophils % 1.2 % (0-1.3); Hematocrit 37.9 % (39.6-49.0); Lymphocytes % 8.5 % (15.3-44.8); MPV 8.1 fL (7.6-11.3); RBC Red Blood Cell Count 4.49 M/uL (4.33-5.43)
--- NOTE | 2020-11-08 06:18 | P.PN ---
Subjective Date of Service: 11/08/20 Primary Care Provider: Dr. Looney, I am covering for him Subjective: Improving, Doing well (No hematuria noted) Physical Examination - Vital Signs Temperature: 97.9 F Blood Pressure: 154/79 Pulse: 57 Respirations: 21 Pulse Ox (%): 98 Assessment & Plan Discharge Plan: Other (Inpatient rehab) Plan to discharge in: 48 Hours Physician Review Additional Text: COVID: Negative CXR 11/07/2020: COMPARISON: Chest Single View dated 10/30/2020; Chest Single View dated 10/28/2020; Chest Single View dated 08/08/2020; Chest Single View dated 03/03/2020 FINDINGS: Lines: None. Lungs: No evidence of edema or pneumonia. Pleural: No significant pleural effusions or pneumothorax. Cardiac: Similar cardiomegaly. Bones: No acute fractures. IMPRESSION: No acute cardiopulmonary disease. CT Head 11/07/2020: COMPARISON: CT head August 08, 2020 FINDINGS: Artifacts: Artifact limiting evaluation of the posterior fossa. Brain: Remote lacunar infarcts involving the right basal ganglia and posterior limb of the internal capsule. Moderate nonspecific white matter changes likely related to chronic microvascular ischemic disease. Mild cerebral atrophy. No hemorrhage. Ventricles: Mild to moderate ventricular prominence. Bones/joints: Unremarkable. No acute fracture. Soft tissues: Unremarkable. Sinuses: Unremarkable as visualized. Mastoid air cells: Unremarkable as visualized. No mastoid effusion. IMPRESSION: No acute intracranial abnormality. Bladder scan 11/07/2020: COMPARISON: AAA Screening dated 03/03/2020 FINDINGS: Saba catheter within the bladder. The bladder is largely decompressed and not well evaluated. No obvious abnormality identified. IMPRESSION: Saba catheter in a decompressed bladder. Physical Exam: GENERAL: The patient is a well-developed, well-nourished, in no apparent distre ss. Alert and oriented x3. VITAL SIGNS: Reviewed HEENT: Neck supple LUNGS: Clear to auscultation. No crackles or wheezes are heard. HEART: Regular rate and rhythm, no appreciable gallops, rubs, murmurs or extra heart sounds ABDOMEN: Soft, nontender, and nondistended. Positive bowel sounds. No hepatosplenomegaly was noted. EXTREMITIES: Without any cyanosis, clubbing, rash, lesions or peripheral edema. NEUROLOGIC: The patient is oriented to person, place and time. Strength and sensation are grossly intact. Face is symmetric. SKIN: Normal color, turgor and temperature. No ulcerations or rashes noted. Urology: Saba catheter in place. No hematuria noted Impression: Acute encephalopathy secondary to UTI, urine culture positive for Klebsiella pneumoniae Hematuria Hypertension History of CVA Hyperlipidemia Chronic CHF COPD History of chronic lymphocytic leukemia Plan: Acute encephalopathy secondary to UTI, urine culture positive for Klebsiella pneumoniae: Procalcitonin negative yesterday. White count normal. No evidence of severe infection. Patient has been treated with IV antibiotic therapy and oral. Will discontinue Rocephin as patient has completed treatment. No further hematuria noted after irrigation of bladder. Will restart aspirin, Plavix. Will continue to monitor for hematuria. Spoke with urology. Discontinue Saba catheter. Check postvoid residual if patient successfully voids within 6 to 8 hours otherwise catheter may need to be replaced. Patient should follow-up with his urologist Dr. Garcia within 2 to 3 weeks to further evaluate the hematuria and UTI. Continue physical therapy. Patient awaiting to be accepted to [facility] in [place]. Dr. Looney to take over tomorrow. Hematuria: This has resolved. Remove catheter. Monitor postvoid residual within 6 to 8 hours. If abnormal patient will require Saba catheter. Patient needs follow-up with urology as an outpatient as recommended above Hypertension: Blood pressure still elevated. Bystolic increased to 20 mg. Will increase diltiazem for better control. History of CVA: Continue aspirin and Plavix. Patient on DVT prophylaxis. History of CVA: Continue with medication Hyperlipidemia: Continue Crestor 10 mg daily Chronic CHF: No longer on IV fluids. Currently on room air. Overall stable. COPD: Overall stable. History of chronic lymphocytic leukemia: Overall stable. This has resolved. Code Status: Full code will need to verify with . DVT prophylaxis: Lovenox Advanced Care Planning-30 minutes: Patient has been denied to fifth floor inpatient rehab. Currently trying to go to [facility] in [place]. If denied wants patient to go home Time Spent Managing Pts Care (In Minutes): 55
[2020-11-08 06:35] LABS: Albumin 3.5 g/dL (3.4-5.0); Bilirubin Total 0.4 mg/dL (0.2-1.0); Magnesium 2.1 mg/dL (1.8-2.4); Potassium 3.7 mmol/L (3.5-5.1); Protein, Total 6.1 g/dL (6.4-8.2)
[2020-11-08] MEDS ORDERED: KCL 20 MEQ/100 mL IVPB 20 MEQ/100 ML BAG IV SCH (07:00)
[2020-11-08] MEDS ORDERED: NA CHLORIDE 0.9% 250 ML ONE (07:34)
[2020-11-08] MEDS: CEFTRIAXONE 1 GM/NS 50 ML 1 GM/50 ML BAG IV SCH (09:54)
[2020-11-08] MEDS: NEBIVOLOL HCL 20 MG TABLET PO SCH (09:54)
[2020-11-08] MEDS: FAMOTIDINE 20 MG TAB PO SCH ×2 (09:55→22:16)
[2020-11-08] MEDS: DILTIAZEM HCL 120 MG SR CAP PO SCH (09:55)
[2020-11-08] MEDS: ENSURE HIGH PROTEIN 237 ML CAN PO SCH ×2 (09:56→21:00)
[2020-11-08] MEDS: JUVEN PACKET PO SCH ×2 (09:56→21:00)
[2020-11-08] MEDS: NYSTATIN PWDR 100000 UNIT/GM TOP SCH ×2 (09:57→22:16)
[2020-11-08] MEDS: lisinopriL 10 MG TAB PO SCH ×2 (11:59→22:15)
[2020-11-08] MEDS ORDERED: lisinopriL 10 MG TAB PO SCH (21:00)
[2020-11-08] MEDS: ROSUVASTATIN 10 MG TAB PO SCH (22:14)
[2020-11-08] MEDS: ACETAMINOPHEN 325 MG TABLET PO PRN (22:16)
[2020-11-09 05:44] LABS: Absolute Lymphocytes (CBC) 0.6 K/uL (0.7-4.9); Hematocrit 40.7 % (39.6-49.0); Lymphocytes % 10.5 % (15.3-44.8); MPV 8.3 fL (7.6-11.3); RBC Red Blood Cell Count 4.81 M/uL (4.33-5.43)
[2020-11-09 06:16] LABS: Albumin 3.9 g/dL (3.4-5.0); Bilirubin Total 0.6 mg/dL (0.2-1.0); Magnesium 2.2 mg/dL (1.8-2.4); Potassium 3.7 mmol/L (3.5-5.1); Protein, Total 6.7 g/dL (6.4-8.2)
[2020-11-09] MEDS ORDERED: KCL 20 MEQ/100 mL IVPB 20 MEQ/100 ML BAG IV SCH (07:00)
[2020-11-09] MEDS ORDERED: NA CHLORIDE 0.9% 250 ML ONE (07:13)
[2020-11-09] MEDS: NEBIVOLOL HCL 20 MG TABLET PO SCH (08:39)
[2020-11-09] MEDS: lisinopriL 10 MG TAB PO SCH ×2 (08:40→21:02)
[2020-11-09] MEDS: CLOPIDOGREL 75 MG TABLET PO SCH (08:41)
[2020-11-09] MEDS: DILTIAZEM HCL 120 MG SR CAP PO SCH (08:41)
[2020-11-09] MEDS: FAMOTIDINE 20 MG TAB PO SCH ×2 (08:41→21:02)
[2020-11-09] MEDS: ASPIRIN EC 81 MG TAB PO SCH (08:42)
[2020-11-09] MEDS: NYSTATIN PWDR 100000 UNIT/GM TOP SCH ×2 (08:43→21:03)
[2020-11-09] MEDS: ENOXAPARIN 40 MG/0.4 ML SQ SCH (08:47)
[2020-11-09] MEDS: ENSURE HIGH PROTEIN 237 ML CAN PO SCH ×2 (08:48→21:00)
[2020-11-09] MEDS: JUVEN PACKET PO SCH ×2 (09:00→21:00)
[2020-11-09 10:14] LABS: Blood Morphology Comment NOT SEEN (NOT SEEN); Platelet Estimate ADEQ
--- NOTE | 2020-11-09 15:05 | PN ---
Date of Progress Note: 11/09/2020 The patient is less responsive today than when I saw him a couple of days ago; however, since that ti me, his blood pressure has stabilized with the addition of lisinopril. There was no apparent hematur ia. His last urine culture was negative. We discussed disposition with his in the past. She h as indicated if he is not accepted in the rehab, she would prefer taking him home, and the other opti on is a SNF/intermediate, and we will discuss further so that he probably can be discharged in a.m. HR/MODL Voice ID: [id number] Report ID: [id number]
[2020-11-09] MEDS: ROSUVASTATIN 10 MG TAB PO SCH (21:01)
[2020-11-10 06:26] LABS: Absolute Lymphocytes (CBC) 0.6 K/uL (0.7-4.9); Basophils % 1.8 % (0-1.3); Hematocrit 38.2 % (39.6-49.0); Lymphocytes % 10.4 % (15.3-44.8); MPV 8.3 fL (7.6-11.3); RBC Red Blood Cell Count 4.52 M/uL (4.33-5.43)
[2020-11-10 06:42] LABS: Albumin 3.6 g/dL (3.4-5.0); Bilirubin Total 0.4 mg/dL (0.2-1.0); Magnesium 2.2 mg/dL (1.8-2.4); Potassium 3.8 mmol/L (3.5-5.1); Protein, Total 5.9 g/dL (6.4-8.2)
[2020-11-10 08:19] VITALS: O2SAT 95
[2020-11-10] MEDS: ENSURE HIGH PROTEIN 237 ML CAN PO SCH (09:00)
[2020-11-10] MEDS ORDERED: KCL 20 MEQ/100 mL IVPB 20 MEQ/100 ML BAG IV SCH (09:00)
[2020-11-10] MEDS: lisinopriL 10 MG TAB PO SCH (09:00)
[2020-11-10] MEDS: JUVEN PACKET PO SCH (09:00)
[2020-11-10] MEDS: DILTIAZEM HCL 120 MG SR CAP PO SCH (10:31)
[2020-11-10] MEDS: NEBIVOLOL HCL 20 MG TABLET PO SCH (10:31)
[2020-11-10] MEDS: ASPIRIN EC 81 MG TAB PO SCH (10:31)
[2020-11-10] MEDS: CLOPIDOGREL 75 MG TABLET PO SCH (10:31)
[2020-11-10] MEDS: NYSTATIN PWDR 100000 UNIT/GM TOP SCH (10:33)
[2020-11-10] MEDS: ENOXAPARIN 40 MG/0.4 ML SQ SCH (10:33)
[2020-11-10] MEDS: FAMOTIDINE 20 MG TAB PO SCH (10:33)
[2020-11-10 12:55] VITALS: BP 145/88; TEMP 97.1
--- NOTE | 2020-11-10 15:26 | PN ---
Date of Progress Note: 11/10/2020 The patient seemed somewhat more alert today; however, he still has difficulty comprehending things i ncluding commands. Does move his arms somewhat, not moving the legs. Requires feeding. His vital s igns are stable. Family wants him at home. He will be discharged. Continue on same medication with the use of beta-jerry 20 mg if necessary, 10 mg is baseline, Bystolic. Hold the KIERRA inhibitor, li sinopril for the time being. The patient is being monitored by family and home health, which will be reinstituted. Urine is clear, so therefore . HR/MODL Voice ID: [id number] Report ID: [id number]
== END 2020-11-10 14:30 | disposition home health service (06) | DRG 690 ==
LOC: ER 20:29 → ERHOLD 10-29 01:35 → 2ND 10-29 07:53
PROVIDERS: ADMIT Family Medicine; ATTEND Family Medicine
DX: N39.0 Urinary tract infection, site not specified (principal); G93.40 Encephalopathy, unspecified; B96.1 Klebsiella pneumoniae [K. pneumoniae] as the cause of diseases classified elsewhere; E78.5 Hyperlipidemia, unspecified; I11.0 Hypertensive heart disease with heart failure; I50.9 Heart failure, unspecified; J44.9 Chronic obstructive pulmonary disease, unspecified; R31.9 Hematuria, unspecified; Z86.73 Personal history of transient ischemic attack (TIA), and cerebral infarction without residual deficits; Z85.51 Personal history of malignant neoplasm of bladder; Z85.6 Personal history of leukemia; Z20.822 Contact with and (suspected) exposure to COVID-19
CPT/HCPCS: 36415; 51702; 70450; 71045; 76857; 80048; 80053; 80076; 81003; 81015; 82947; 83605; 83690; 83735; 83880; 84132; 84145; 84484; 85025; 85610; 85730; 87040; 87077; 87086; 87088; 87186; 87205; 93005; 96374; 97110; 97112; 97161; 97530; 99284; J0696; J1650; J3480; J7030; J7050; U0003

== ENCOUNTER 2020-11-17 16:21 | Inpatient (IN) | payer OTHER ==
--- NOTE | 2020-11-17 17:30 | RAD REPORT ---
EXAM DESCRIPTION: RAD - Chest Single View - 11/17/2020 5:24 pm CLINICAL HISTORY: possible aspiration COMPARISON: Chest Single View dated 11/07/2020; Chest Single View dated 10/30/2020; Chest Single View dated 10/28/2020; Chest Single View dated 08/08/2020 FINDINGS: Lines: None. Lungs: Mild faint increased right upper lung opacities. Pleural: No significant pleural effusions or pneumothorax. Cardiac: Cardiomegaly. Bones: Remote left-sided rib fractures. Other: IMPRESSION: Mild increased right upper lobe opacities could reflect mild aspiration. The left lung a nd right lung base are well aerated.
[2020-11-17] MEDS ORDERED: HYDROCODONE/APAP 10/325 TAB ONE (19:15)
--- NOTE | 2020-11-17 19:19 | ER ---
Nurse's Notes [facility] Name: Duke Marin III Age: 75 yrs Sex: Male : 1945 Arrival Date: 11/17/2020 Time: 16:31 Bed 5 Private MD: Diagnosis: Weakness;Muscle weakness (generalized)-wasting and atrophy;Lobar pneumonia, unspecified organism-aspiration Presentation: 11/17 16:34 Chief complaint: EMS states: Brought in by EMS for lower leg pain x 1 year. Coronavirus ch5 screen: Vaccine status: Patient reports receiving the 2nd dose of the covid vaccine. Client denies travel out of the [place] in the last 14 days. At this time, the client does not indicate any symptoms associated with coronavirus-19. Ebola Screen: Patient negative for fever greater than or equal to 101.5 degrees Fahrenheit, and additional compatible Ebola Virus Disease symptoms Patient denies exposure to infectious person. Patient denies travel to an Ebola-affected area in the 21 days before illness onset. No symptoms or risks identified at this time. Initial Sepsis Screen: Does the patient meet any 2 criteria? Does the patient have a suspected source of infection? No. Patient's initial sepsis screen is negative. Risk Assessment: Do you want to hurt yourself or someone else?. Onset of symptoms was November 18, 2019. 16:34 Method Of Arrival: EMS: [place] [id number] 16:34 Acuity: PARAG 3 ch5 Triage Assessment: 20:38 General: Appears in no apparent distress. comfortable, Behavior is calm, cooperative, sj1 appropriate for age. Pain: Denies pain. Historical: - Allergies: 20:54 Cipro (irreg heart rate); sj1 - Home Meds: 20:54 Bystolic 10 mg oral tab 1 tab once daily [Active]; aspirin 81 mg Oral tab 81 mg daily sj1 [Active]; Cardizem 120 mg Oral tab 2 tab DAILY [Active]; Crestor 10 mg oral tab 1 tab once daily [Active]; Plavix Oral 1 tab once daily [Active]; - PMHx: 20:54 Cerebrovascular accident; Leukemia; Cancer in situ of urinary bladder; sj1 - PSHx: 20:54 Stented artery; sj1 - Immunization history:: Adult Immunizations up to date, Client reports receiving the 2nd dose of the Covid vaccine. - Social history:: Smoking status: Patient/guardian denies using tobacco, but has a distant history of tobacco abuse. Screenin:38 Abuse screen: Denies threats or abuse. Denies injuries from another. Nutritional ch5 screening: No deficits noted. Tuberculosis screening: No symptoms or risk factors identified. Fall Risk Gait- Weak (10 pts.). Assessment: 16:40 Reassessment: No changes from previously documented assessment. 5 19:37 Reassessment: Lab called to recollect labs prior to abx administration. sj1 23:25 Reassessment: Patient appears in no apparent distress at this time. Report given to Romario moy Romario RN. VSS for transport. Vital Signs: 16:34 BP 148 / 95; Pulse 67; Resp 20; Temp 98.0; Pulse Ox 99% on R/A; Weight 82.55 kg; Height ch5 5 ft. 10 in. (177.80 cm); Pain 8/10; 16:38 BP 180 / 93; Pulse 88; Resp 20; Temp 98; Pulse Ox 95% on R/A; Pain 8/10; ch5 20:35 BP 110 / 57 LA Sitting (auto/reg); Pulse 63; Resp 19 S; Temp 97.1(TE); Pulse Ox 95% on sj1 2 lpm NC; Pain 0/10; 16:34 Body Mass Index 26.11 (82.55 kg, 177.80 cm) 5 ED Course: 16:31 Patient arrived in ED. 5 16:33 Andrew Dean, RN is Primary Nurse. 5 16:37 Triage completed. 5 16:38 Placed in gown. Bed in low position. Side rails up X2. Adult w/ patient. ch5 16:38 No provider procedures requiring assistance completed. ch5 16:43 John Benitez MD is Attending Physician. kdr 17:23 Chest Single View XRAY In Process Unspecified. EDMS 18:43 Attending Physician role handed off by John Benitez MD luanne 18:43 Russell De La Paz MD is Attending Physician. luanne 19:16 Javi Looney MD is Hospitalizing Provider. luanne 20:03 COVID-19 (Coronavirus) Document "Date of Onset" if Symptomatic Sent. sj1 20:05 Basic Metabolic Panel Sent. sj1 20:05 Blood Culture Adult (2) Sent. sj1 20:05 CBC with Diff Sent. sj1 20:05 CPK Sent. sj1 20:05 Ckmb Sent. sj1 20:06 Amylase, Serum Sent. sj1 20:34 CORONAVIRUS Sent. sj1 20:38 Arm band placed on. sj1 21:24 Missed attempt(s): 18 gauge in right upper arm. Bleeding controlled, band aid applied, bb catheter tip intact. Administered Medications: 18:48 Drug: Hydrocodone-Acetaminophen (10 mg-650 mg) 1 tabs Route: PO; tw5 20:03 Drug: Zosyn (piperacillin-tazobactam) 3.375 grams Route: IVPB; Infused Over: 60 mins; sj1 Site: left hand; 22:36 Follow up: Response: No adverse reaction sj1 20:05 Drug: NS 0.9% 1000 ml Route: IV; Rate: 125 ml/hr; Site: left hand; sj1 20:05 Drug: NS 0.9% 500 ml Route: IV; Rate: bolus; Site: left hand; sj1 23:28 Follow up: IV Status: Completed infusion; IV Intake: 500ml sj1 Intake: 23:28 IV: 500ml; Total: 500ml. sj1 Outcome: 19:19 Decision to Hospitalize by Provider. [facility] 23:46 Patient left the ED. sj1 Signatures: Dispatcher [employer] EDRussell Thao MD MD cha Rittger, Kevin, MD MD kdr Ballard, Brenda, RN RN bb Heath, Christopher, RN RN Marybel Nguyen RN RN [facility] Lashell Hagen tw5 Corrections: (The following items were deleted from the chart) 16:38 16:34 Chief complaint: EMS states: Brought in by EMS for lower leg pain. ch5 ch5 16:38 16:37 PMHx: Hypertension; ch5 ch5 16:38 16:37 PMHx: Atrial Fib; ch5 ch5 16:38 16:37 PMHx: enlarged aorta; ch5 ch5 16:38 16:37 PMHx: CVA; ch5 ch5 16:38 16:37 PMHx: SVT; ch5 ch5 16:38 16:37 PMHx: CLL; ch5 ch5 16:38 16:37 PMHx: Bladder cancer; ch5 ch5 21:01 20:54 Home Meds: Diltiazem ER Oral once daily; sj1 sj1 21:01 20:54 PMHx: Bladder problem; sj1 sj1
--- NOTE | 2020-11-17 19:19 | EDPHYS ---
Physician Documentation [facility] Name: Duke Marin III Age: 75 yrs Sex: Male : 1945 Arrival Date: 11/17/2020 Time: 16:31 Bed 5 Private MD: ED Physician Russell De La Paz HPI: 11/17 19:09 This 75 yrs old Male presents to ER via EMS with complaints of weakness, cant luanne walk. 19:09 weakn, recent pna, leg pain. Onset: The symptoms/episode began/occurred 5 day(s) ago. luanne Severity of symptoms: At their worst the symptoms were moderate in the emergency department the symptoms are unchanged. The patient has experienced similar episodes in the past, several times. Historical: - Allergies: 20:54 Cipro (irreg heart rate); sj1 - Home Meds: 20:54 Bystolic 10 mg oral tab 1 tab once daily [Active]; aspirin 81 mg Oral tab 81 mg daily sj1 [Active]; Cardizem 120 mg Oral tab 2 tab DAILY [Active]; Crestor 10 mg oral tab 1 tab once daily [Active]; Plavix Oral 1 tab once daily [Active]; - PMHx: 20:54 Cerebrovascular accident; Leukemia; Cancer in situ of urinary bladder; sj1 - PSHx: 20:54 Stented artery; sj1 - Immunization history:: Adult Immunizations up to date, Client reports receiving the 2nd dose of the Covid vaccine. - Social history:: Smoking status: Patient/guardian denies using tobacco, but has a distant history of tobacco abuse. ROS: 19:10 Constitutional: Negative for fever, chills, and weight loss, Eyes: Negative for injury, luanne pain, redness, and discharge, ENT: Negative for injury, pain, and discharge, Neck: Negative for injury, pain, and swelling, Cardiovascular: Negative for chest pain, palpitations, and edema, Abdomen/GI: Negative for abdominal pain, nausea, vomiting, diarrhea, and constipation, Back: Negative for injury and pain, : Negative for injury, bleeding, discharge, and swelling, Skin: Negative for injury, rash, and discoloration, Neuro: Negative for headache, weakness, numbness, tingling, and seizure. 19:10 Respiratory: Positive for cough, "sounds productive". 19:10 MS/extremity: Positive for decreased range of motion, pain, of the right leg and left leg. Exam: 19:10 Constitutional: This is a well developed, well nourished patient who is awake, alert, luanne and in no acute distress. Head/Face: Normocephalic, atraumatic. Eyes: Pupils equal round and reactive to light, extra-ocular motions intact. Lids and lashes normal. Conjunctiva and sclera are non-icteric and not injected. Cornea within normal limits. Periorbital areas with no swelling, redness, or edema. ENT: Nares patent. No nasal discharge, no septal abnormalities noted. Tympanic membranes are normal and external auditory canals are clear. Oropharynx with no redness, swelling, or masses, exudates, or evidence of obstruction, uvula midline. Mucous membranes moist. Neck: Trachea midline, no thyromegaly or masses palpated, and no cervical lymphadenopathy. Supple, full range of motion without nuchal rigidity, or vertebral point tenderness. No Meningismus. Chest/axilla: Normal chest wall appearance and motion. Nontender with no deformity. No lesions are appreciated. Cardiovascular: Regular rate and rhythm with a normal S1 and S2. No gallops, murmurs, or rubs. Normal PMI, no JVD. No pulse deficits. Abdomen/GI: Soft, non-tender, with normal bowel sounds. No distension or tympany. No guarding or rebound. No evidence of tenderness throughout. Back: No spinal tenderness. No costovertebral tenderness. Full range of motion. Male : Normal genitalia with no discharge or lesions. Skin: Warm, dry with normal turgor. Normal color with no rashes, no lesions, and no evidence of cellulitis. Neuro: Awake and alert, GCS 15, oriented to person, place, time, and situation. Cranial nerves II-XII grossly intact. Motor strength 5/5 in all extremities. Sensory grossly intact. Cerebellar exam normal. Normal gait. Psych: Awake, alert, with orientation to person, place and time. Behavior, mood, and affect are within normal limits. 19:10 ECG was reviewed by the Attending Physician. 19:10 Respiratory: the patient does not display signs of respiratory distress, Respirations: normal, Breath sounds: bronchial sounds, that are mild, Respiratory rate: 20 Vital Signs: 16:34 BP 148 / 95; Pulse 67; Resp 20; Temp 98.0; Pulse Ox 99% on R/A; Weight 82.55 kg; Height ch5 5 ft. 10 in. (177.80 cm); Pain 8/10; 16:38 BP 180 / 93; Pulse 88; Resp 20; Temp 98; Pulse Ox 95% on R/A; Pain 8/10; ch5 20:35 BP 110 / 57 LA Sitting (auto/reg); Pulse 63; Resp 19 S; Temp 97.1(TE); Pulse Ox 95% on sj1 2 lpm NC; Pain 0/10; 16:34 Body Mass Index 26.11 (82.55 kg, 177.80 cm) ch5 MDM: 18:43 Patient medically screened. luanne 19:13 Differential diagnosis: tendonitis. Differential Diagnosis sepsis, flu, Bronchitis luanne Influenza Sinusitis Pharyngitis. Data reviewed: vital signs, nurses notes, EMS record, lab test result(s), EKG, radiologic studies, plain films. 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 Test interpretation: by ED physician or midlevel provider: ECG, plain radiologic studies. Counseling: I had a detailed discussion with the patient and/or guardian regarding: the historical points, exam findings, and any diagnostic results supporting the discharge/admit diagnosis, the presence of at least one elevated blood pressure reading (>120/80) during this emergency department visit, lab results, radiology results, the need for further work-up and treatment in the hospital. 11/17 16:48 Order name: Amylase, Serum 11/17 16:48 Order name: Basic Metabolic Panel 11/17 16:48 Order name: Blood Culture Adult (2) 11/17 16:48 Order name: CBC with Diff 11/17 16:48 Order name: CPK 11/17 16:48 Order name: Ckmb 11/17 16:48 Order name: LFT's; Complete Time: 20:51 11/17 16:48 Order name: Lactate; Complete Time: 19:06 11/17 16:48 Order name: Lipase; Complete Time: 20:51 11/17 16:48 Order name: Procalcitonin 11/17 16:48 Order name: Protime (+inr); Complete Time: 20:51 11/17 16:48 Order name: Ptt, Activated; Complete Time: 20:51 11/17 16:48 Order name: Troponin (emerg Dept Use Only); Complete Time: 20:51 11/17 16:48 Order name: Urine Microscopic Only 11/17 16:48 Order name: Chest Single View XRAY; Complete Time: 19:06 11/17 16:48 Order name: Amylase; Complete Time: 20:51 EDIA 11/17 16:49 Order name: Basic Metabolic Panel; Complete Time: 20:51 EDIA 11/17 16:49 Order name: Blood Culture EDIA 11/17 16:49 Order name: CBC with Automated Diff; Complete Time: 20:51 EDIA 11/17 16:49 Order name: Creatine Phosphokinase; Complete Time: 20:51 EDIA 11/17 16:49 Order name: CKMB Creatine Kinase MB; Complete Time: 20:51 [facility] 11/17 19:44 Order name: COVID-19 (Coronavirus) Document "Date of Onset" if Symptomatic 11/17 20:30 Order name: CORONAVIRUS EDIA 11/17 20:31 Order name: CBC Smear Scan; Complete Time: 20:51 [facility]IA 11/17 21:28 Order name: SARS-COV-2 RT PCR [facility] 11/17 16:48 Order name: Accucheck; Complete Time: 17:43 11/17 16:48 Order name: Cardiac monitoring; Complete Time: 17:43 11/17 16:48 Order name: EKG - Nurse/Tech; Complete Time: 18:46 11/17 16:48 Order name: IV Saline Lock - Large Bore; Complete Time: 17:43 11/17 16:48 Order name: Labs collected and sent; Complete Time: 17:43 11/17 16:48 Order name: O2 Per Protocol; Complete Time: 17:01 11/17 16:48 Order name: O2 Sat Monitoring; Complete Time: 17:01 11/17 17:46 Order name: Labs - recollect needed: recollect everything except the lactate; Complete bd Time: 20:05 11/17 19:25 Order name: CONS Physician Consult EDMS EC:10 Rate is 68 beats/min. Rhythm is regular. QRS [place]vel[place] is Normal. DE interval is normal. QT luanne interval is normal. No Q waves. T waves are Normal. No ST changes noted. Clinical impression: NSR w/ Non-specific ST/T Changes and No evidence of ischemia. Interpreted by me. Reviewed by me. Administered Medications: 18:48 Drug: Hydrocodone-Acetaminophen (10 mg-650 mg) 1 tabs Route: PO; tw5 20:03 Drug: Zosyn (piperacillin-tazobactam) 3.375 grams Route: IVPB; Infused Over: 60 mins; sj1 Site: left hand; 22:36 Follow up: Response: No adverse reaction sj1 20:05 Drug: NS 0.9% 1000 ml Route: IV; Rate: 125 ml/hr; Site: left hand; sj1 20:05 Drug: NS 0.9% 500 ml Route: IV; Rate: bolus; Site: left hand; sj1 23:28 Follow up: IV Status: Completed infusion; IV Intake: 500ml sj1 Disposition Summary: 11/17/20 19:19 Hospitalization Ordered Hospitalization Status: Inpatient Admission luanne Provider: Javi Looney cha Location: Telemetry/[facility] (Inpatient) luanne Condition: Stable luanne Problem: new luanne Symptoms: have improved luanne Bed/Room Type: Standard luanne Room Assignment: 228(11/17/20 22:44) Diagnosis - Weakness luanne - Muscle weakness (generalized) - wasting and atrophy luanne - Lobar pneumonia, unspecified organism - aspiration luanne Discharge Instructions: - Discharge Summary Sheet tw5 Forms: - Medication Reconciliation Form luanne - SBAR form tw5 Signatures: Dispatcher [employer] EDAshtyn Luna Martha, RN RN mw Anderson, Corey, MD MD cha Rittger, Kevin, MD MD kdr Williams, Irene, RN RN iw Heath, Christopher, RN RN ch5 Marybel Siddiqui RN RN sj1 Wood, Tiffany tw5 Corrections: (The following items were deleted from the chart) 16:38 16:37 PMHx: Hypertension; ch5 ch5 16:38 16:37 PMHx: Atrial Fib; ch5 ch5 16:38 16:37 PMHx: enlarged aorta; ch5 ch5 16:38 16:37 PMHx: CVA; ch5 ch5 16:38 16:37 PMHx: SVT; ch5 ch5 16:38 16:37 PMHx: CLL; ch5 ch5 16:38 16:37 PMHx: Bladder cancer; ch5 5 19:03 18:22 Extrem Venous W Compression Ever+US.RAD.BRZ ordered. EDMS EDMS : 20:54 Home Meds: Diltiazem ER Oral once daily; [place] [id number] 21: 20:54 PMHx: Bladder problem; [place] [id number] 22:44 19:19 luanne mw
[2020-11-17] MEDS ORDERED: NA CHLORIDE 0.9% 100 ML ONE (20:06)
[2020-11-17] MEDS ORDERED: PIPERACIL/TAZO 3.375 GM VIAL IV ONE (20:06)
[2020-11-17] MEDS ORDERED: NA CHLORIDE 0.9% 500 ML ONE (20:06)
[2020-11-17] MEDS ORDERED: NA CHLORIDE 0.9% 1,000 ML ONE (20:06)
[2020-11-17 20:16] LABS: Absolute Lymphocytes (CBC) 0.7 K/uL (0.7-4.9); Basophils % 1.2 % (0-1.3); Hematocrit 41.2 % (39.6-49.0); Lymphocytes % 6.8 % (15.3-44.8); MPV 8.7 fL (7.6-11.3); RBC Red Blood Cell Count 4.94 M/uL (4.33-5.43)
[2020-11-17 20:24] LABS: ALT/SGPT 17 U/L (12-78); AST/SGOT 11 U/L (15-37); Albumin 3.3 g/dL (3.4-5.0); Alkaline Phosphatase 102 U/L (45-117); Amylase 29 U/L (25-115); BUN Blood Urea Nitrogen 23 mg/dL (7-18); Bicarbonate 23 mmol/L (21-32); Bilirubin Direct 0.1 mg/dL (0-0.2); Bilirubin Total 0.5 mg/dL (0.2-1.0); Creatine Phosphokinase 57 U/L (39-308); Glucose Level 163 mg/dL (74-106); Lipase 77 U/L (73-393); Potassium 3.6 mmol/L (3.5-5.1); Protein, Total 6.4 g/dL (6.4-8.2); Sodium Level 141 mmol/L (136-145); Troponin (Emerg Dept Use Only) < 0.02 ng/mL (0.0-0.045)
[2020-11-17 20:27] LABS: Protime INR 1.32
[2020-11-17 20:30] LABS: CKMB Creatine Kinase MB < 1.0 ng/mL (1.0-3.6)
[2020-11-17 20:31] LABS: Blood Morphology Comment NOT SEEN (NOT SEEN); Platelet Estimate ADEQ; White Blood Cell Scan OK (OK)
[2020-11-17] MEDS ORDERED: ONDANSETRON 4 MG/2 ML VIAL IV PRN (23:27)
[2020-11-17] MEDS ORDERED: ALBUTEROL 2.5 MG/3 ML NEB SOL NEB PRN (23:27)
[2020-11-17] MEDS ORDERED: IPRATROPIUM BROM 0.5MG/2.5ML NEB PRN (23:27)
[2020-11-17] MEDS ORDERED: ACETAMINOPHEN 325 MG TABLET PO PRN (23:30)
[2020-11-18] MEDS: MORPHINE 2 MG/ML SYR IV PRN ×2 (00:24→16:26)
[2020-11-18] MEDS: FAMOTIDINE 20 MG/2 ML VIAL IV SCH ×2 (00:24→10:42)
[2020-11-18] MEDS: PIPER TAZO 3.375 GM in NA CHLORIDE 0.9% 100 ML IV SCH ×2 (00:24→10:42)
[2020-11-18] MEDS: NA CHLORIDE 0.9% 1,000 ML IV SCH ×4 (00:25→23:27)
[2020-11-18 02:50] VITALS: BMI 23.3
[2020-11-18 05:55] LABS: Absolute Lymphocytes (CBC) 0.6 K/uL (0.7-4.9); Basophils % 1.9 % (0-1.3); Hematocrit 39.6 % (39.6-49.0); Lymphocytes % 9.7 % (15.3-44.8); MPV 8.4 fL (7.6-11.3); RBC Red Blood Cell Count 4.75 M/uL (4.33-5.43)
[2020-11-18 06:15] LABS: Potassium 3.5 mmol/L (3.5-5.1)
--- NOTE | 2020-11-18 08:32 | RAD REPORT ---
EXAM DESCRIPTION: RAD - Chest Single View - 11/18/2020 7:10 am CLINICAL HISTORY: Chest Pain COMPARISON: Chest Single View dated 11/17/2020; Chest Single View dated 11/07/2020; Chest Single View dated 10/30/2020; Chest Single View dated 10/28/2020 FINDINGS: Lines: None. Lungs: Improved aeration of the right upper lung. No acute process identified. Pleural: No significant pleural effusions or pneumothorax. Cardiac: Cardiomegaly. Widened mediastinum which is likely due to patient rotation. Bones: No acute fractures. Other: IMPRESSION: Improved aeration in the right upper lobe. No acute process identified . Widened mediast inum presumably due to increased patient rotation.
--- NOTE | 2020-11-18 16:39 | EKG ---
Test Date: 2020-11-17 Test Time: 18:30:56 Wet Inspector Optical Glass: SANAM MEASUREMENT RESULTS: Intervals: Rate: 68 [place]: 216 QRSD: 84 QT: 476 QTc: 506 [place]: P: 56 [place]: 216 QRS: -17 T: 20 INTERPRETIVE STATEMENTS: Sinus rhythm with 1st degree AV block Inferior infarct, age undetermined Cannot rule out Anterior infarct, age undetermined Prolonged QT Abnormal ECG Compared to ECG 10/28/2020 20:42:47 Prolonged QT interval now present Ventricular premature complex(es) no longer present Myocardial infarct finding still present Electronically Signed On 11-18-20 16:35:49 CDT by Samuel Colon
--- NOTE | 2020-11-18 19:56 | PN ---
Date of Progress Note: 11/18/2020 The patient was responsive when I saw him. He has difficulty moving his extremities. However, I ct ched him drink soda and he tolerated it quite well. We will have an evaluation done and has been see n by Neurology. We will discuss case further with them and decide on disposition. HR/MODL Voice ID: [id number] Report ID: [id number]
[2020-11-18] MEDS: NEBIVOLOL HCL 5 MG TAB PO SCH (21:28)
[2020-11-18] MEDS: FAMOTIDINE 20 MG TAB PO SCH (21:29)
[2020-11-18] MEDS: ROSUVASTATIN 10 MG TAB PO SCH (21:29)
--- NOTE | 2020-11-19 00:41 | CON ---
Reason For Consultation: Consultation was called because of diffuse weakness. History Of Present Illness: Mr. Marin is a 75-year-old patient with multiple medical problems including chronic stroke, chronic small vessel ischemic disease, chronic lymphocytic leukemia, bladder cancer, atrial fibrillation, multiple hospitalizations over 10 years with weakness and debility and urinary tract infections, comes in with more diffuse weakness and inability to ambulate. He was in the inpatient rehabilitation unit about a year ago. At that point, he was ambulating with a walker, but he reports significant decline since then and for a few months now requires maximal assistance for mobilization and ambulation. He is treated now for likely urinary tract infection as his urinalysis showed 250 bacteria, acx-skmivopp-ot-count red blood cells along with white blood cells. He had esterase in the urine. While at the bedside, the patient was able to follow simple commands. Moves the arms. Could not move the legs voluntarily. With stimulation, slight withdrawal was noted. His head CT scan done on November 07, was remarkable for remote right basal ganglia infarct, remote right frontal lobe infarct, moderate small vessel ischemic disease and an arachnoid cyst in the right middle cranial fossa. No acute changes were identified. His blood work did not reveal an active systemic infection. His kidney function was essentially unremarkable. Blood glucose in the 170s. Liver function unremarkable. Toxicology screen was negative. COVID-19 test was negative. Chest x-ray showed improved aeration compared to a prior study, which was done on October 28; this study was 11/18/2020. Past Medical History: As noted. Surgical History: Thoracic hematoma was removed, bladder resection, and laminectomy. Allergies: MEPERIDINE AND PSEUDOEPHEDRINE. Family History: Cancer in father. Social History: No recent alcohol, tobacco, or IV drug use. Current Medications: Tylenol 650 mg as needed, albuterol nebulizer 2.5 mg every 4 hours as needed, aspirin 81 mg daily, Plavix 75 mg daily, diltiazem 240 mg daily, Pepcid 20 mg twice daily, Atrovent 0.5 mg nebulized every 4 hours as needed, morphine sulfate 2 mg as needed for severe pain, Bystolic 10 mg at bedtime, Zofran 4 mg IV as needed, Crestor 10 mg at bedtime. Review of Systems: The patient notes diffuse weakness. Difficulty with any ambulation, requiring maximum assistance. Weakness also of the hands. Bruising in all extremities, likely due to his anticoagulation. Shortness of breath, easy fatigue, and depressed mood. Physical Examination: Vital Signs: Blood pressure 141/69, pulse 60, respiratory rate 16, temperature 97, O2 saturation 97% on room air. General: Mr. Marin is resting in bed. Does have bruising over the arms and legs. HEENT: He is normocephalic, atraumatic. Sclerae anicteric. Oropharynx is moist. Neck: Supple. Chest: Clear. Heart: Irregular. Abdomen: Soft. Extremities: Some stasis changes. No cyanosis. Trace edema. Neurological: He is alert and oriented to person and situation. He is very slow to respond, but he follows commands to move the arms and squeeze fingers. Could not get up to move his legs. He has increased tone in the upper and lower extremities. Symmetric reflexes. Unable to assess coordination or gait. Decreased sensation to touch in the legs and his arms. Assessment/Plan: Mr. Marin is a 75-year-old patient with marked debility. He has multiple chronic neurological problems including multiple strokes, small vessel disease, vascular dementia and advanced peripheral neuropathy with distal to proximal lower extremity wasting. He is unable to functionally move his lower extremity for over 18 months. At this point, the patient requires 24-hour help for his mobilization, safety awareness, and self-care. He has a very poor prognosis for useful recovery. He should be placed in a facility that allows for Hospice including home. No additional neurological workup is planned. ALISHA/MEGAN Voice ID: [id number] Report ID: [id number] JUAN
[2020-11-19] MEDS: NA CHLORIDE 0.9% 1,000 ML IV SCH ×4 (01:11→23:41)
[2020-11-19] MEDS: ASPIRIN EC 81 MG TAB PO SCH (11:28)
[2020-11-19] MEDS: FAMOTIDINE 20 MG TAB PO SCH ×2 (11:28→20:45)
[2020-11-19] MEDS: DILTIAZEM HCL 120 MG SR CAP PO SCH (11:29)
[2020-11-19] MEDS: CLOPIDOGREL 75 MG TABLET PO SCH (11:29)
[2020-11-19] MEDS: NEBIVOLOL HCL 5 MG TAB PO SCH (20:45)
[2020-11-19] MEDS: ROSUVASTATIN 10 MG TAB PO SCH (20:47)
[2020-11-20] MEDS: NA CHLORIDE 0.9% 1,000 ML IV SCH (06:53)
[2020-11-20 08:24] VITALS: O2SAT 93
[2020-11-20] MEDS: FAMOTIDINE 20 MG TAB PO SCH (09:36)
[2020-11-20] MEDS: CLOPIDOGREL 75 MG TABLET PO SCH (09:36)
[2020-11-20] MEDS: DILTIAZEM HCL 120 MG SR CAP PO SCH (09:36)
[2020-11-20] MEDS: ASPIRIN EC 81 MG TAB PO SCH (09:36)
--- NOTE | 2020-11-20 11:13 | PN ---
Date of Progress Note: 11/20/2020 The patient decided last night to go with hospice. We will therefore make arrangements and discharge him today. HR/MODL Voice ID: [id number] Report ID: [id number]
--- NOTE | 2020-11-20 11:13 | PN ---
Date of Progress Note: 11/19/2020 Basically, the patient is status quo, although he does not seem to have some swallowing difficulties at present. Much discussion was held with the . As for his disposition, she decided that hospic e was probably her choice. She is going to think about and let us know later in the day. HR/MODL Voice ID: [id number] Report ID: [id number]
[2020-11-20 12:19] VITALS: BP 133/64; TEMP 97.8
== END 2020-11-20 13:34 | disposition hospice, home (50) | DRG 947 ==
LOC: ER 16:21 → ERHOLD 19:27 → 2ND 22:54
PROVIDERS: ADMIT Family Medicine; ATTEND Family Medicine
DX: R53.1 Weakness (principal); J69.0 Pneumonitis due to inhalation of food and vomit; R53.81 Other malaise; F01.50 Vascular dementia, unspecified severity, without behavioral disturbance, psychotic disturbance, mood disturbance, and anxiety; G62.9 Polyneuropathy, unspecified; Z88.1 Allergy status to other antibiotic agents; Z79.82 Long term (current) use of aspirin; Z79.02 Long term (current) use of antithrombotics/antiplatelets; Z79.899 Other long term (current) drug therapy; Z85.51 Personal history of malignant neoplasm of bladder; Z86.73 Personal history of transient ischemic attack (TIA), and cerebral infarction without residual deficits; Z85.6 Personal history of leukemia; Z20.822 Contact with and (suspected) exposure to COVID-19
CPT/HCPCS: 36415; 71045; 80048; 80076; 82150; 82550; 82553; 83605; 83690; 83880; 84145; 84484; 85025; 85610; 85730; 87040; 92610; 93005; 94760; 96361; 96374; 99284; J2270; J2543; J7030; J7040; U0003